=== PATIENT | male | born 1945 | race Caucasian/White ===

== ENCOUNTER → 2017-08-05 15:51 | Outpatient (CLI) | payer MEDICARE, BC, SELFPAY ==
--- NOTE | 2017-08-05 16:20 | RAD_ITS ---
STUDY: X-RAY CHEST REASON FOR EXAM: Male, 72 years old. Shortness of breath. Heart failure. TECHNIQUE: PA and lateral views of the chest. COMPARISON: June 01, 2017. FINDINGS: The lungs are hypoexpanded. There is increased markings at both lung bases. Probable bilateral pleural effusions, right greater than left. The heart remains enlarged. Stable median sternotomy. Normal mediastinum and radha. Normal visualized pulmonary arteries. There is atherosclerotic calcification of the aortic arch with tortuosity. No visualized osseous changes. Again seen is surgical clips in right axilla. There is no demonstrated abnormality of the visualized soft tissue structures of the upper abdomen. RAD/Chest PA and Lateral IMPRESSION: 1. Stable cardiomegaly. 2. Bibasilar infiltrates versus atelectasis with probable pleural effusions. Electronically Signed: Alan Corrigan DO at 16:21 EDT Tel [phone], Service support ,
[2017-08-05 18:17] LABS: Anion Gap 4 (5-15); BUN 21 mg/dL (7-18); Calcium,Total 8.7 mg/dL (8.5-10.1); Chloride 100 mmol/L (98-107); Creatinine, Serum 0.95 mg/dL (0.70-1.30); EST Glomerular Filtration Rate 82 mL/min (>60); Est Glom Filt Rate - Afr Amer 99 mL/min (>60); Glucose 119 mg/dL (74-106); Potassium 3.7 mmol/L (3.5-5.1); Sodium Level 142 mmol/L (136-145)
[2017-08-05 18:19] LABS: BNP,B-Type NATRIURETIC PEPTIDE 69.4 pg/mL (0-100)
== END ==
PROVIDERS: Family Provider Internal Medicine; PCP Internal Medicine; Visit Provider Nurse Practitioner Acute Care
DX: R06.02 Shortness of breath (principal); R06.00 Dyspnea, unspecified; I50.9 Heart failure, unspecified
CPT/HCPCS: 36415; 71046; 80048; 83880

== ENCOUNTER 2017-08-20 14:43 | Inpatient (IN) | payer MEDICARE, BC, SELFPAY ==
[2017-08-20] VITALS (16 sets, daily range): BP systolic 141–166; BP diastolic 44–73; PULSE 76–103; RESP 18–30; TEMP 36.8–36.9; O2SAT 82–98; BMI 60.8; BMI 58.7
--- NOTE | 2017-08-20 15:08 | EKG12_ITS ---
Test Reason : SOB Blood Pressure : / mmHG Vent. Rate : 093 BPM Atrial Rate : 093 BPM P-R Int : 132 ms QRS Dur : 106 ms QT Int : 402 ms P-R-T Axes : 016 009 070 degrees QTc Int : 499 ms Sinus rhythm with Premature atrial complexes Incomplete left bundle branch block Borderline ECG Confirmed by RIGOBERTO LOGAN, EMORY ([id number]), editorial manager DANIELA GUTIÉRREZ ([id number] on 08/24/2017 1:16:48 PM Referred By: GABRIELLA
--- NOTE | 2017-08-20 15:08 | RAD_ITS ---
STUDY: X-RAY CHEST REASON FOR EXAM: Male, 72 years old. Shortness of breath TECHNIQUE: A single frontal view of the chest was obtained. COMPARISON: August 05, 2017 FINDINGS: The lungs are underaerated. There are increased markings throughout both lungs, most pronounced in the bases. There is blunting of the right costophrenic angle. There is moderate enlargement of the cardiac silhouette. Sternotomy wires are present. The mediastinum and hilar regions are unremarkable. The central vessels are increased. There is atherosclerotic calcification of the thoracic aorta. There are diffuse degenerative changes of the visualized spine. There are degenerative changes in both shoulders. There are surgical clips in the right axilla. There is no demonstrated abnormality of the visualized upper abdomen. RAD/Chest 1 View (Portable) IMPRESSION: There is moderate enlargement of the cardiac silhouette with diffuse edema and a small right effusion. There is bibasilar atelectasis. Electronically Signed: Antoinette Blank MD at 16:00 EDT Tel Direct: [phone], Service support ,
--- NOTE | 2017-08-20 15:12 | ED.VISSUMM ---
- ER Visit Summary Date of Service: 08/20/17 Chief Complaint: Shortness of breath History of Present Illness: The patient is a 72 M presenting with shortness of breath since Thursday. Patient states that this has been progressively worsening at home. He has increasing leg swelling. He has dyspnea with exertion. He has mild cough. He denies chest pain. He was seen at Dr. Clay's office today and was sent to the ED for hospital admission. Physical Examination: Vitals are stable. Patient is afebrile. Alert no acute distress. HEENT exam is unremarkable. Neck is supple. Lungs are diminished bilaterally. Heart is regular rate and rhythm. Abdomen is soft nontender distended. reducible hernia Extremities symmetric edema Skin is warm and dry. No focal neurologic deficit. Remainder of exam is unremarkable. Emergency Department Course and Treatment: Patient is given albuterol aerosols. EKG is sinus rate of 93 with no acute ischemic changes. Chest x-ray shows cardiomegaly, CHF, small right pleural effusion. CBC normal except hemoglobin 9.8. Chemistry normal except CO2 37, glucose 213. Troponin is negative. BNP 181.5. Patient was given Lasix IV. He is supposed to be on Eliquis and has not taken this for the past 2 months. He was started on a heparin drip per hospitalist request. He was given Zosyn and Vanc for his bilateral lower extremity cellulitis. Discussed with the hospitalist for admission. Disposition: Admission Impression: Dyspnea, CHF, bilateral lower extremity cellulitis This note was generated with [employer] dictation software. It may contain incorrect words, spelling, and punctuation that were not noted in review of the chart prior to signing ED Disposition - Plan for ED Patient: Chief Complaint: Shortness of Breath
[2017-08-20 15:34] LABS: Absolute Lymphocyte Count 0.55 X10^3/ul (0.83-4.51); Absolute Neutrophil Count 4.6 X10^3/uL (2.0-7.7); Basophil# 0.03 X10^3/uL; Basophil% 0.5 % (0-1); Differential Indicated SCAN CRITERIA MET; Eosinophil# 0.16 X10^3/uL; Eosinophils% 2.7 % (0-5); Hematocrit 33.2 % (40-54); Hemoglobin 9.8 g/dl (13.0-16.5); Lymphocyte # 0.55 X10^3/ul (4.0); Lymphocyte % 9.2 % (19-41); Mean Corp Hgb Conc 29.5 g/gl (32-36); Mean Corpuscular Volume 91.5 fL (80-94); Mean Platelet Vol. 8.7 fl (6.2-12.0); Monocyte# 0.53 X10^3/uL; Monocyte% 8.8 % (0-10); Neutrophil # 4.64 X10^3/uL (2.7-7.7); Neutrophil % 77.5 % (47-70); POSITIVE COUNT NO; POSITIVE DIFFERENTIAL YES; POSITIVE MORPHOLOGY NO; Platelet Count 221 K/mm3 (150-450); RBC Distribution Width CV 14.1 % (11.6-14.6); RBC Distribution Width SD 45.9 fl (35.1-43.9); Red Blood Count 3.63 M/mm3 (4.6-6.2)
[2017-08-20 15:39] LABS: Anion Gap 3 (5-15); BUN 13 mg/dL (7-18); BUN/Creat Ratio 13.4 RATIO (10-20); Calcium,Total 8.6 mg/dL (8.5-10.1); Chloride 99 mmol/L (98-107); Creatinine, Serum 0.97 mg/dL (0.70-1.30); EST Glomerular Filtration Rate 80 mL/min (>60); Est Glom Filt Rate - Afr Amer 97 mL/min (>60); Estimated Creatinine Clearance 64.64 ml/min; Glucose 213 mg/dL (74-106); Potassium 4.1 mmol/L (3.5-5.1); Sodium Level 139 mmol/L (136-145)
[2017-08-20] MEDS: Albuterol 2.5 MG/3 ML VIAL.NEB. INHALATION ×3 (15:39)
--- NOTE | 2017-08-20 15:41 | CT_ITS ---
STUDY: CTA CHEST REASON FOR EXAM: Male, 72 years old. Shortness of breath RADIATION DOSAGE (If Supplied By Facility): CTDIvol = ( 45.66 ) mGy, DLP = ( 1162.53 ) mGycm TECHNIQUE: The examination was performed with the intravenous administration of 100 ml of Isovue 370 contrast material. Post-processing of the angiographic images was performed, with multiplanar reformation and 3D reconstruction. Individualized dose optimization techniques were used for this CT. COMPARISON: Chest radiograph from the same day; chest CTA dated March 30, 2017 FINDINGS: Normal enhancement of the main pulmonary artery and right and left pulmonary arteries without filling defects. There is limited enhancement of the bilateral peripheral pulmonary arteries. There are moderate vascular calcifications in the thoracic aorta. There is no demonstrated aortic dissection. There is mild enlargement of the heart. There are calcifications of the coronary arteries. There are small lymph nodes scattered in the mediastinum. The hilar regions are unremarkable. The airways are unremarkable. There is dense opacity in the posterior segment of the right lower lobe. There are minimal increased markings in the posterior segment of the left lower lobe. There is moderate fluid in the right pleural margin. There is minimal fluid in the left pleural margin. Central vessels are prominent. There is a defect in the midline epigastric region measuring 8 cm. There is herniation of bowel through the defect. There are marked degenerative changes in the visualized spine. Sternotomy wires are present. There are degenerative changes in both shoulders. There are no significant abnormalities in the visualized upper abdomen. CT/CTA Chest W/WO Contrast IMPRESSION: There is no evidence of pulmonary embolus in the main pulmonary artery or right and left pulmonary arteries. There may be minimal residual chronic clot within a few branches of the right upper lobe. The remaining peripheral branches are suboptimally evaluated due to poor contrast bolus and breathing motion artifact. There is mild enlargement of the heart with mild edema. There is a moderate right pleural effusion and a small left pleural effusion. There is dense atelectasis in the right lower lobe and minimal atelectasis in the left lower lobe. There is herniation of stomach or colon in the midline epigastric region with a defect measuring 8 cm along the anterior upper abdominal wall. Electronically Signed: Antoinette Blank MD at 17:04 EDT Tel Direct: [phone], Service support ,
[2017-08-20 15:55] LABS: BNP,B-Type NATRIURETIC PEPTIDE 181.5 pg/mL (0-100)
[2017-08-20 15:57] LABS: Differential Comment SCANNED
--- NOTE | 2017-08-20 15:59 | PCM.HP.STD ---
Problem List (1) CHF exacerbation Status: Acute Qualifiers: Heart failure type: unspecified Qualified Code(s): I50.9 - Heart failure, unspecified (2) Anemia Status: Chronic Qualifiers: Anemia type: iron deficiency (3) Arthritis Status: Chronic (4) Asthma Status: Chronic Qualifiers: Asthma severity: unspecified severity Asthma persistence: unspecified Asthma complication type: unspecified Qualified Code(s): J45.909 - Unspecified asthma, uncomplicated (5) BPH (benign prostatic hypertrophy) Status: Chronic Qualifiers: Lower urinary tract symptom presence: unspecified whether lower urinary tract symptoms present (6) Benign essential hypertension Status: Chronic (7) Benign prostatic hypertrophy without urinary obstruction Status: Chronic (8) CAD (coronary artery disease) Status: Chronic Qualifiers: Coronary Disease-Associated Artery/Lesion type: unspecified vessel or lesion type [place] vs. transplanted heart: unspecified whether [place] or transplanted heart Associated angina: angina presence unspecified Qualified Code(s): I25.10 - Atherosclerotic heart disease of [place] coronary artery without angina pectoris (9) CKD (chronic kidney disease), stage II Status: Chronic (10) COPD (chronic obstructive pulmonary disease) Status: Chronic Qualifiers: COPD type: unspecified COPD (11) Chronic respiratory failure with hypoxia Status: Chronic (12) Diabetes mellitus with neuropathy Status: Chronic Qualifiers: Diabetes mellitus type: type 2 Diabetes mellitus mcfp insulin use: with mcfp use Qualified Code(s): E11.40 - Type 2 diabetes mellitus with diabetic neuropathy, unspecified; Z79.4 - custodial (current) use of insulin (13) Dyspnea Status: Acute (14) Edema of both legs Status: Acute (15) GERD (gastroesophageal reflux disease) Status: Chronic Qualifiers: Esophagitis presence: esophagitis presence not specified Qualified Code(s): K21.9 - Gastro-esophageal reflux disease without esophagitis (16) H/O aortic valve replacement Status: Chronic (17) HTN (hypertension) Status: Chronic Qualifiers: Hypertension type: essential hypertension (18) Hypercholesteremia Status: Chronic (19) Lymphedema of leg Status: Chronic Qualifiers: Laterality: bilateral (20) Morbid obesity Status: Chronic (21) MIKO (obstructive sleep apnea) Status: Chronic (22) Peripheral neuropathy Status: Chronic (23) Pulmonary embolism on right Status: Chronic Comment: Continue oral anticoagulation with Eliquis for a minimum of 6 months. Patient was educated on the signs and symptoms of bleeding as such as hemoptysis, hematemesis, hematochezia or melena stools. Patient has been advised to watch for these symptoms contact the office if they present. Follow-up with Dr. Clay in approximately 8 weeks as previously scheduled. 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 The patient is a 72 y/o M w/ PMHx: AOCD, BPH, HTN, Diabetes mellitus type II w/ neuropathy, Tobacco use, CHF Unclear type, CKD stage II, COPD, History of AVR, History of AAA s/p repair, GERD, Morbid Obesity PVD, Hx Ileus, Hx PE on Eliquis prior who presents to the [facility] ED on 08/20/17 with history of progressively worsening dyspnea, worse with exertion, orthopnea, worsening BL LE edema with onset blistering and open serous drainage secondary to severity of edema without improvement with self imposed increased O2 level and noted concurrent O2 and BIPAP placement q HS with recent treatment per his Pulmonary Team w/ increased oral lasix without marked improvement with referral to Cardiology for CHF evaluation but given worsened status referred to the ED for evaluation per Pulmonary at his appointment on day of ED presentation. Per review with patient he noted only completion of initial Rx Eliquis and has not been on it since and also notes current BL LE wounds dressed only QOD per family with worsening wounds, drainage as edema LE worsened. Past Medical History Past Medical History (Chronic Problems): Chronic Problems (Last Reviewed 08/20/17 @ 13:52 by Elvira Schmidt) Chronic respiratory failure with hypoxia (Chronic) Wheezing (Chronic) Heart failure (Chronic) MIKO (obstructive sleep apnea) (Chronic) HTN (hypertension) (Chronic) Anemia (Chronic) BPH (benign prostatic hypertrophy) (Chronic) Tinea unguium (Chronic) Diabetes mellitus with neuropathy (Chronic) Leg swelling (Chronic) Lymphedema of leg (Chronic) Multiple excoriations (Chronic) Asthma (Chronic) COPD (chronic obstructive pulmonary disease) (Chronic) Arthritis (Chronic) Immobility (Chronic) 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 Patient was educated on the signs and symptoms of bleeding as such as hemoptysis, hematemesis, hematochezia or melena stools. Patient has been advised to watch for these symptoms contact the office if they present. Follow-up with Dr. Clay in approximately 8 weeks as previously scheduled. Adynamic ileus (Chronic) Ventral hernia (Chronic) Hypoglycemia (Chronic) Peripheral neuropathy (Chronic) Chronic anemia (Chronic) Benign essential hypertension (Chronic) Benign prostatic hypertrophy without urinary obstruction (Chronic) CKD (chronic kidney disease), stage II (Chronic) CHF (congestive heart failure) (Chronic) CAD (coronary artery disease) (Chronic) Type II diabetes mellitus (Chronic) GERD (gastroesophageal reflux disease) (Chronic) Hypercholesteremia (Chronic) Morbid obesity (Chronic) Pulmonary hypertension (Chronic) H/O aortic valve replacement (Chronic) S/P AAA repair (Chronic) Venous insufficiency (Chronic) Tinea unguium (Chronic) Morbid obesity (Chronic) Allergies naphazoline HCl [From Naphcon] Allergy (Severe, Verified 08/20/17 15:18) affected his breathing AFFECTED HIS BREATHING amlodipine besylate [From Norvasc] Allergy (Verified 08/20/17 15:18) Other dextromethorphan Allergy (Verified 08/20/17 15:18) Other levofloxacin [From Levaquin] Adverse Reaction (Mild, Verified 08/20/17 15:18) made me hyperactive made me hyperactive Home Medications: Ambulatory Orders Medication Instructions Recorded Allopurinol [Zyloprim] 300 mg PO DAILY 03/30/17 Atorvastatin Calcium [Lipitor] 40 mg PO QHS 03/30/17 Clonidine Patch [Catapres-Tts3] 1 patch TOPICAL FR 03/30/17 Clopidogrel Bisulfate [Plavix] 1 tab PO DAILY 03/30/17 Docusate Sodium [Colace] 100 mg PO DAILY 03/30/17 Ferrous Sulfate 325 mg PO DAILY 03/30/17 Finasteride [Proscar] 5 mg PO DAILY 03/30/17 Glimepiride [Amaryl] 2 tab PO BREAKFAST 03/30/17 Hydroxyzine HCl 25 mg PO TID PRN 03/30/17 Insulin Glargine [Lantus SoloStar 30 units PO BID 03/30/17 Pen] Lansoprazole 15 mg PO DAILY 03/30/17 Losartan Potassium 100 mg PO DAILY 03/30/17 Magnesium Oxide [Mag-Ox 400] 800 mg PO BID 03/30/17 Metformin HCl [Glucophage] 500 mg PO TID 03/30/17 Metoprolol Tartrate [Lopressor 50 mg PO BID 03/30/17 (beta maryam)] Multivitamins,Therapeutic 1 tab PO DAILY 03/30/17 [Multivitamin] Sertraline HCl [Zoloft] 100 mg PO DAILY 03/30/17 Spironolactone 25 mg PO BID 03/30/17 Terazosin HCl [Hytrin] 10 mg PO QHS 03/30/17 Prednisone [Deltasone] 40 mg PO DAILY 5 Days #10 tab 06/05/17 fluticasone 500 mcg-salmeterol 50 1 inh INHALATION Q12H #1 device 07/29/17 mcg/dose blistr powdr for inhalation tiotropium bromide 2.5 2 puff INHALATION Q24H #1 device 07/29/17 mcg/actuation mist for inhalation albuterol sulfate HFA 90 2 puff PO Q6H PRN PRN #18 g 08/05/17 mcg/actuation aerosol inhaler furosemide 80 mg tablet 80 mg PO BID #6 tab 08/06/17 albuterol sulfate 2.5 mg/3 mL 2.5 mg INHALATION Q4H PRN #180 vial 08/20/17 (0.083 %) solution for nebulization Surgical History: - - He has a bioprosthetic aortic valve replacement, abdominal aortic aneurysm repair '05, recent surgery to repair a large ventral hernia. Psychiatric History: Anxiety, Depression Lives: With Family Smoking Status: Former smoker Tobacco Use: Non-smoker Alcohol: None - *Family History Maternal History Items: Hypertension, - - Patient's father at the age of 94 from old age. Patient's mother at age of 87 with a history of hyperlipidemia and hypertension. Paternal History Items: Hypertension Review of Systems Constitutional: Reports: Malaise, Weakness, Fatigue. Denies: Chills, Fever, Weight Change HEENT: Denies: Head Aches, Sinus Congestion, Sinus Drainage Cardiovascular: Reports: Edema, Heaviness, Orthopnea. Denies: Chest Pain, Palpitations Respiratory: Reports: Cough, Shortness of Breath, Shortness of breath at rest, Shortness of breath upon exertion, Sputum production, Wheezing Gastrointestinal: Denies: Abdominal Pain, Nausea, Vomiting Genitourinary: Denies: Dysuria Musculoskeletal: Reports: Back Pain, Joint Pain. Denies: Joint Tenderness Skin: Reports: Skin Changes, Wounds. Denies: Rash Neurological: Denies: Numbness, Tingling, Focal weakness Psychiatric: Denies: Anxiety, Depression, Homicidal Ideations, Suicidal Ideations Hematologic/ Lymphatic: Reports: Anemia. Denies: Easy Bruising, Easy Bleeding VTE Information - Inpt Only VTE Present on Admission: No VTE Mechan Device Prophylaxis: SCD's VTE Pharm Prophylaxis ordered?: Yes Patient Problems: Active and Suspected Problems (Last Reviewed 08/20/17 @ 13:52 by Elvira Schmidt) Open wound, lower leg (Acute) Subjective: Seated upright in the ED bed, fatigued appearance. Objective: Physical Examination: General: awake, alert, oriented x 3 and cooperative, seated upright in the ED bed, NAD, fatigued appearance. Skin: normal color, turgor, no icterus, cyanosis except BL LE chronic venous stasis skin changes, BL LE lateral stasis wounds with yellow slough and discharge, mildly foul smelling, chronic BL LE lymphedema, worsened w/ edema, pitting, serous drainage, blistering diffusely BL LE additionally. HEENT: AT/NC, EOMI, PERRLA, mildly dry MM, no carotid bruits, difficult to assess JVD secondary to habitus, thickened neck. Lungs: Diffusely diminished BS, > BL bases, poor effort, no current wheezing, BL rales present, no rhonchi. Heart: Regular rate and rhythm; no gallop, rub audible, s/p AVR. Abdomen: soft, morbidly obese, ventral hernia present, NTTP, ND, normal BS, no HSM; however, habitus makes examination difficult. Extremities: no cyanosis, clubbing, see skin. Neurological: patient awake, alert, oriented x 3; cognitive function intact; pupils equally reactive to light and accomodation; cranial nerves II-XII grossly normal, moving all 4 extremities but limited secondary to chronic knee pain and acute presentation, strength severely globally decreased. Psychiatric: affect appears fatigued, flat, no acute evidence of depressive or anxiety feelings. - Physical Exam Vital Signs Temp Pulse Resp BP Pulse Ox 98.5 F 85 22 H 155/73 H 96 08/20/17 14:49 08/20/17 15:40 08/20/17 15:40 08/20/17 14:49 08/20/17 15:40 Oxygen Flow Rate (L/min) 6.5 Oxygen Delivery Method Nasal Cannula Weight: 400 lb 2.224 oz Body Mass Index (BMI) 60.8 Finger Stick Blood Glucose 116 Laboratory Tests Past 24 Hrs 08/20/17 08/20/17 08/20/17 15:05 15:05 15:05 WBC 6.0 RBC 3.63 L Hgb 9.8 L Hct 33.2 L MCV 91.5 MCH 27.0 MCHC 29.5 L RDW 14.1 RDW Differential 45.9 H Plt Count 221 MPV 8.7 Immature Gran % (Auto) 1.300 H Neut % (Auto) 77.5 H Lymph % (Auto) 9.2 L [place] % (Auto) 8.8 Eos % (Auto) 2.7 Baso % (Auto) 0.5 Absolute Neuts (auto) 4.6 Absolute Lymphs (auto) 0.55 L Total Counted Not Reportable Differential Comment SCANNED Sodium 139 Potassium 4.1 Chloride 99 Carbon Dioxide 37.0 H Anion Gap 3 L BUN 13 Creatinine 0.97 Estim Creat Clear Calc 64.64 Est GFR (MDRD) Af Amer 97 Est GFR (MDRD) Non-Af 80 BUN/Creatinine Ratio 13.4 Glucose 213 H Calcium 8.6 Troponin I < 0.02 B-Natriuretic Peptide 181.5 H Assessment/Plan Active and Suspected Problems (Last Reviewed 08/20/17 @ 13:52 by Elvira Schmidt) Open wound, lower leg (Acute) The patient is a 72 y/o M w/ PMHx: AOCD, BPH, HTN, Diabetes mellitus type II w/ neuropathy, Tobacco use, CHF Unclear type, CKD stage II, COPD, History of AVR, History of AAA s/p repair, GERD, Morbid Obesity PVD, Hx Ileus, Hx PE on Eliquis prior but stopped taking after initial Rx who presents to the [facility] ED on 08/20/17 with history of progressively worsening dyspnea, worse with exertion, orthopnea, worsening BL LE edema with onset blistering and open serous drainage secondary to severity of edema without improvement with self imposed increased O2 level and noted concurrent O2 and BIPAP placement q HS with recent treatment per his Pulmonary Team w/ increased oral lasix without marked improvement with referral to Cardiology for CHF evaluation but given worsened status referred to the ED for evaluation per Pulmonary at his appointment on day of ED presentation. (1) Dyspnea, Suspect Multifactorial secondary to Underlying Pulmonary Disease, Morbid Obesity and Suspected Acute on Chronic CHF Exacerbation, Unclear Type and Possible Acute on Chronic PE: Patient administered IV lasix in the ED, will admit to PCU, maintain on cardiac telemetry, obtain cardiac enzyme series, obtain serial EKGs, initiate and continue IV lasix diuresis, monitor I/Os, maintain on intake restriction, continue medical therapy w/ asa, statin, BB, ARB, spironolactone. Will obtain TSH and magnesium level. Most recent ECHO noted 12/22/2013 with noted EF 65%, stage I diastolic dysfunction, moderately dilated RV, bioprosthetic aortic valve. Cardiology consulted, pending. PRN morphine to decrease afterload, continue oxygen supplementation, if necessary will position w/ upright position with legs off bed to decrease preload. Also, ? possibility of failure to take his Eliquis and suspect no follow-up refill following initial regimen from initial diagonsis per review of records thus discussed with ED and will additionally obtain CTPA. Will place on heparin drip upon admission and transition to oral regimen once CM assisted w/ assuring affordable regimen to avoid barriers. (2) BL LE Venous Stasis Wounds, Infected Appearance complicated by Underlying Diabetes Mellitus type II, Morbid Obesity, Chronic BL LE Lymphedema: Will maintain on IV Vanc and Zosyn given severity of appearance and underlying co-morbidities, obtain Wound RN consultation, dry dressing changes given notable serous drainage w/ LE edema, plan repeat CBC in AM, continue affected extremity elevation above heart when seated and in bed, monitor erythema outline with VS checks. Snug EM wraps. (3) Hyperlipidemia: Continue home statin regimen. (4) Hypertension: Continue home clonidine patch, metoprolol, losartan, IV lasix as noted, PRN hydralazine. (5) Chronic COPD/Asthma w/ Chronic Hypoxic Respiratory Failure: Maintain on oxygen with wean to home oxygen supplementation as able given #1, ATC aerosols, PRN albuterol, HOB, IS. (6) History of AVR, AAA s/p repair: Continue home regimen plavix, statin, BP regimen. (7) BPH: Continue home proscar. (8) Fe Deficiency Anemia: Admission Hgb 9.8, baseline 10-11 range, continue Fe supplementation, repeat CBC in AM. (9) History of PE: Was previously on eliquis, some concern about compliance and per review of records patient with no office (Pulmonary) listing of Eliquis, last noted on discharge 03/2017, reviewed with ED physician and will additionally obtain CTPA given high risk and initiate therapy again. Will need CM consultation to assure medication barriers reviewed. (10) Diabetes mellitus type II: Hold oral home regimen, continue home insulin regimen, ADA diet, accu checks w/ ISS. (11) Tobacco Abuse: Encouraged cessation, inpatient consultation per RT, NR if desired. (12) CKD stage II: Admission BUN/Cr 13/0.97, baseline Cr 0.9-1.2, trend BMP. (13) GERD: PPI. (14) MIKO: Noted BIPAP from office,18/12 with mask and headed humidity. (15) Morbid Obesity: Weight loss and lifestyle changes encouraged, nutrition consulted. (16) DVT Prophylaxis: SNUG EM wraps, SCDs, Eliquis. (17) CODE status: Discussed CODE status at length including difference between FULL code, DNR-CCA and DNR-CC status. Following discussions about the differences in these status, requested FULL CODE status. Discussed prognosis with full intervention given co-morbidities which are marked and severe and patient notes decision to continue with FULL CODE status. Advanced Care Planning Face to Face Time: 16 minutes. Code Visit Inpatient E&M: 25645 Init Hosp L3 Procedures: 56132 Advncd Care Plan 30 Min
--- NOTE | 2017-08-20 16:08 | HP.PCM_ITS ---
Problem List (1) CHF exacerbation Status: Acute Qualifiers: Heart failure type: unspecified Qualified Code(s): I50.9 - Heart failure, unspecified (2) Anemia Status: Chronic Qualifiers: Anemia type: iron deficiency (3) Arthritis Status: Chronic (4) Asthma Status: Chronic Qualifiers: Asthma severity: unspecified severity Asthma persistence: unspecified Asthma complication type: unspecified Qualified Code(s): J45.909 - Unspecified asthma, uncomplicated (5) BPH (benign prostatic hypertrophy) Status: Chronic Qualifiers: Lower urinary tract symptom presence: unspecified whether lower urinary tract symptoms present (6) Benign essential hypertension Status: Chronic (7) Benign prostatic hypertrophy without urinary obstruction Status: Chronic (8) CAD (coronary artery disease) Status: Chronic Qualifiers: Coronary Disease-Associated Artery/Lesion type: unspecified vessel or lesion type [place] vs. transplanted heart: unspecified whether [place] or transplanted heart Associated angina: angina presence unspecified Qualified Code(s): I25.10 - Atherosclerotic heart disease of [place] coronary artery without angina pectoris (9) CKD (chronic kidney disease), stage II Status: Chronic (10) COPD (chronic obstructive pulmonary disease) Status: Chronic Qualifiers: COPD type: unspecified COPD (11) Chronic respiratory failure with hypoxia Status: Chronic (12) Diabetes mellitus with neuropathy Status: Chronic Qualifiers: Diabetes mellitus type: type 2 Diabetes mellitus prison insulin use: with prison use Qualified Code(s): E11.40 - Type 2 diabetes mellitus with diabetic neuropathy, unspecified; Z79.4 - prison (current) use of insulin (13) Dyspnea Status: Acute (14) Edema of both legs Status: Acute (15) GERD (gastroesophageal reflux disease) Status: Chronic Qualifiers: Esophagitis presence: esophagitis presence not specified Qualified Code(s) : K21.9 - Gastro-esophageal reflux disease without esophagitis (16) H/O aortic valve replacement Status: Chronic (17) HTN (hypertension) Status: Chronic Qualifiers: Hypertension type: essential hypertension (18) Hypercholesteremia Status: Chronic (19) Lymphedema of leg Status: Chronic Qualifiers: Laterality: bilateral (20) Morbid obesity Status: Chronic (21) MIKO (obstructive sleep apnea) Status: Chronic (22) Peripheral neuropathy Status: Chronic (23) Pulmonary embolism on right Status: Chronic Comment: Continue oral anticoagulation with Eliquis for a minimum of 6 months. Patient was educated on the signs and symptoms of bleeding as such as hemoptysis, hematemesis, hematochezia or melena stools. Patient has been advised to watch for these symptoms contact the office if they present. Follow-up with Dr. Clay in approximately 8 weeks as previously scheduled. (24) Pulmonary hypertension Status: Chronic (25) S/P AAA repair Status: Chronic (26) Type II diabetes mellitus Status: Chronic Qualifiers: Diabetes mellitus prison insulin use: with terminal superintendent use Diabetes mellitus complication status: with kidney complications Diabetes mellitus complication detail: with chronic kidney disease Chronic kidney disease stage : stage 2 (mild) Qualified Code(s): E11.22 - Type 2 diabetes mellitus with diabetic chronic kidney disease; N18.2 - Chronic kidney disease, stage 2 (mild) ; Z79.4 - prison (current) use of insulin (27) Tobacco abuse Status: Resolved (28) Open wound, lower leg Status: Acute Qualifiers: Encounter type: initial encounter Laterality: unspecified laterality Qualified Code(s): S81.809A - Unspecified open wound, unspecified lower leg, initial encounter History of Present Illness Date of Admission: 08/20/17 Chief Complaint: Dyspnea, Increasing LE Edema, Orthopnea. The patient is a 72 y/o M w/ PMHx: AOCD, BPH, HTN, Diabetes mellitus type II w/ neuropathy, Tobacco use, CHF Unclear type, CKD stage II, COPD, History of AVR, History of AAA s/p repair, GERD, Morbid Obesity PVD, Hx Ileus, Hx PE on Eliquis prior who presents to the [facility] ED on 08/20/17 with history of progressively worsening dyspnea, worse with exertion, orthopnea, worsening BL LE edema with onset blistering and open serous drainage secondary to severity of edema without improvement with self imposed increased O2 level and noted concurrent O2 and BIPAP placement q HS with recent treatment per his Pulmonary Team w/ increased oral lasix without marked improvement with referral to Cardiology for CHF evaluation but given worsened status referred to the ED for evaluation per Pulmonary at his appointment on day of ED presentation. Per review with patient he noted only completion of initial Rx Eliquis and has not been on it since and also notes current BL LE wounds dressed only QOD per family with worsening wounds, drainage as edema LE worsened. Past Medical History Past Medical History (Chronic Problems): Chronic Problems (Last Reviewed 08/20/17 @ 13:52 by Elvira Schmidt) Chronic respiratory failure with hypoxia (Chronic) Wheezing (Chronic) Heart failure (Chronic) MIKO (obstructive sleep apnea) (Chronic) HTN (hypertension) (Chronic) Anemia (Chronic) BPH (benign prostatic hypertrophy) (Chronic) Tinea unguium (Chronic) Diabetes mellitus with neuropathy (Chronic) Leg swelling (Chronic) Lymphedema of leg (Chronic) Multiple excoriations (Chronic) Asthma (Chronic) COPD (chronic obstructive pulmonary disease) (Chronic) Arthritis (Chronic) Immobility (Chronic) 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 Patient was educated on the signs and symptoms of bleeding as such as hemoptysis, hematemesis, hematochezia or melena stools. Patient has been advised to watch for these symptoms contact the office if they present. Follow-up with Dr. Clay in approximately 8 weeks as previously scheduled. Adynamic ileus (Chronic) Ventral hernia (Chronic) Hypoglycemia (Chronic) Peripheral neuropathy (Chronic) Chronic anemia (Chronic) Benign essential hypertension (Chronic) Benign prostatic hypertrophy without urinary obstruction (Chronic) CKD (chronic kidney disease), stage II (Chronic) CHF (congestive heart failure) (Chronic) CAD (coronary artery disease) (Chronic) Type II diabetes mellitus (Chronic) GERD (gastroesophageal reflux disease) (Chronic) Hypercholesteremia (Chronic) Morbid obesity (Chronic) Pulmonary hypertension (Chronic) H/O aortic valve replacement (Chronic) S/P AAA repair (Chronic) Venous insufficiency (Chronic) Tinea unguium (Chronic) Morbid obesity (Chronic) Allergies naphazoline HCl [From Naphcon] Allergy (Severe, Verified 08/20/17 15:18) affected his breathing AFFECTED HIS BREATHING amlodipine besylate [From Norvasc] Allergy (Verified 08/20/17 15:18) Other dextromethorphan Allergy (Verified 08/20/17 15:18) Other levofloxacin [From Levaquin] Adverse Reaction (Mild, Verified 08/20/17 15:18) made me hyperactive made me hyperactive Home Medications: Ambulatory Orders Medication Instructions Recorded Allopurinol [Zyloprim] 300 mg PO DAILY 03/30/17 Atorvastatin Calcium [Lipitor] 40 mg PO QHS 03/30/17 Clonidine Patch [Catapres-Tts3] 1 patch TOPICAL FR 03/30/17 Clopidogrel Bisulfate [Plavix] 1 tab PO DAILY 03/30/17 Docusate Sodium [Colace] 100 mg PO DAILY 03/30/17 Ferrous Sulfate 325 mg PO DAILY 03/30/17 Finasteride [Proscar] 5 mg PO DAILY 03/30/17 Glimepiride [Amaryl] 2 tab PO BREAKFAST 03/30/17 Hydroxyzine HCl 25 mg PO TID PRN 03/30/17 Insulin Glargine [Lantus SoloStar 30 units PO BID 03/30/17 Pen] Lansoprazole 15 mg PO DAILY 03/30/17 Losartan Potassium 100 mg PO DAILY 03/30/17 Magnesium Oxide [Mag-Ox 400] 800 mg PO BID 03/30/17 Metformin HCl [Glucophage] 500 mg PO TID 03/30/17 Metoprolol Tartrate [Lopressor 50 mg PO BID 03/30/17 (beta maryam)] Multivitamins,Therapeutic 1 tab PO DAILY 03/30/17 [Multivitamin] Sertraline HCl [Zoloft] 100 mg PO DAILY 03/30/17 Spironolactone 25 mg PO BID 03/30/17 Terazosin HCl [Hytrin] 10 mg PO QHS 03/30/17 Prednisone [Deltasone] 40 mg PO DAILY 5 Days #10 tab 06/05/17 fluticasone 500 mcg-salmeterol 50 1 inh INHALATION Q12H #1 device 07/29/17 mcg/dose blistr powdr for inhalation tiotropium bromide 2.5 2 puff INHALATION Q24H #1 device 07/29/17 mcg/actuation mist for inhalation albuterol sulfate HFA 90 2 puff PO Q6H PRN PRN #18 g 08/05/17 mcg/actuation aerosol inhaler furosemide 80 mg tablet 80 mg PO BID #6 tab 08/06/17 albuterol sulfate 2.5 mg/3 mL 2.5 mg INHALATION Q4H PRN #180 vial 08/20/17 (0.083 %) solution for nebulization Surgical History: - - He has a bioprosthetic aortic valve replacement, abdominal aortic aneurysm repair '05, recent surgery to repair a large ventral hernia. Psychiatric History: Anxiety, Depression Lives: With Family Smoking Status: Former smoker Tobacco Use: Non-smoker Alcohol: None - *Family History Maternal History Items: Hypertension, - - Patient's father at the age of 94 from old age. Patient's mother at age of 87 with a history of hyperlipidemia and hypertension. Paternal History Items: Hypertension Review of Systems Constitutional: Reports: Malaise, Weakness, Fatigue. Denies: Chills, Fever, Weight Change HEENT: Denies: Head Aches, Sinus Congestion, Sinus Drainage Cardiovascular: Reports: Edema, Heaviness, Orthopnea. Denies: Chest Pain, Palpitations Respiratory: Reports: Cough, Shortness of Breath, Shortness of breath at rest, Shortness of breath upon exertion, Sputum production, Wheezing Gastrointestinal: Denies: Abdominal Pain, Nausea, Vomiting Genitourinary: Denies: Dysuria Musculoskeletal: Reports: Back Pain, Joint Pain. Denies: Joint Tenderness Skin: Reports: Skin Changes, Wounds. Denies: Rash Neurological: Denies: Numbness, Tingling, Focal weakness Psychiatric: Denies: Anxiety, Depression, Homicidal Ideations, Suicidal Ideations Hematologic/ Lymphatic: Reports: Anemia. Denies: Easy Bruising, Easy Bleeding VTE Information - Inpt Only VTE Present on Admission: No VTE Mechan Device Prophylaxis: SCD's VTE Pharm Prophylaxis ordered?: Yes Patient Problems: Active and Suspected Problems (Last Reviewed 08/20/17 @ 13:52 by Elvira Schmidt) Open wound, lower leg (Acute) Subjective: Seated upright in the ED bed, fatigued appearance. Objective: Physical Examination: General: awake, alert, oriented x 3 and cooperative, seated upright in the ED bed, NAD, fatigued appearance. Skin: normal color, turgor, no icterus, cyanosis except BL LE chronic venous stasis skin changes, BL LE lateral stasis wounds with yellow slough and discharge, mildly foul smelling, chronic BL LE lymphedema, worsened w/ edema, pitting, serous drainage, blistering diffusely BL LE additionally. HEENT: AT/NC, EOMI, PERRLA, mildly dry MM, no carotid bruits, difficult to assess JVD secondary to habitus, thickened neck. Lungs: Diffusely diminished BS, > BL bases, poor effort, no current wheezing, BL rales present, no rhonchi. Heart: Regular rate and rhythm; no gallop, rub audible, s/p AVR. Abdomen: soft, morbidly obese, ventral hernia present, NTTP, ND, normal BS, no HSM; however, habitus makes examination difficult. Extremities: no cyanosis, clubbing, see skin. Neurological: patient awake, alert, oriented x 3; cognitive function intact; pupils equally reactive to light and accomodation; cranial nerves II-XII grossly normal, moving all 4 extremities but limited secondary to chronic knee pain and acute presentation, strength severely globally decreased. Psychiatric: affect appears fatigued, flat, no acute evidence of depressive or anxiety feelings. - Physical Exam Vital Signs Temp Pulse Resp BP Pulse Ox 98.5 F 85 22 H 155/73 H 96 08/20/17 14:49 08/20/17 15:40 08/20/17 15:40 08/20/17 14:49 08/20/17 15:40 Oxygen Flow Rate (L/min) 6.5 Oxygen Delivery Method Nasal Cannula Weight: 400 lb 2.224 oz Body Mass Index (BMI) 60.8 Finger Stick Blood Glucose 116 Laboratory Tests Past 24 Hrs 08/20/17 08/20/17 08/20/17 15:05 15:05 15:05 WBC 6.0 RBC 3.63 L Hgb 9.8 L Hct 33.2 L MCV 91.5 MCH 27.0 MCHC 29.5 L RDW 14.1 RDW Differential 45.9 H Plt Count 221 MPV 8.7 Immature Gran % (Auto) 1.300 H Neut % (Auto) 77.5 H Lymph % (Auto) 9.2 L [place] % (Auto) 8.8 Eos % (Auto) 2.7 Baso % (Auto) 0.5 Absolute Neuts (auto) 4.6 Absolute Lymphs (auto) 0.55 L Total Counted Not Reportable Differential Comment SCANNED Sodium 139 Potassium 4.1 Chloride 99 Carbon Dioxide 37.0 H Anion Gap 3 L BUN 13 Creatinine 0.97 Estim Creat Clear Calc 64.64 Est GFR (MDRD) Af Amer 97 Est GFR (MDRD) Non-Af 80 BUN/Creatinine Ratio 13.4 Glucose 213 H Calcium 8.6 Troponin I < 0.02 B-Natriuretic Peptide 181.5 H Assessment/Plan Active and Suspected Problems (Last Reviewed 08/20/17 @ 13:52 by Elvira Schmidt) Open wound, lower leg (Acute) The patient is a 72 y/o M w/ PMHx: AOCD, BPH, HTN, Diabetes mellitus type II w/ neuropathy, Tobacco use, CHF Unclear type, CKD stage II, COPD, History of AVR, History of AAA s/p repair, GERD, Morbid Obesity PVD, Hx Ileus, Hx PE on Eliquis prior but stopped taking after initial Rx who presents to the [facility] ED on 08/20/17 with history of progressively worsening dyspnea, worse with exertion, orthopnea , worsening BL LE edema with onset blistering and open serous drainage secondary to severity of edema without improvement with self imposed increased O2 level and noted concurrent O2 and BIPAP placement q HS with recent treatment per his Pulmonary Team w/ increased oral lasix without marked improvement with referral to Cardiology for CHF evaluation but given worsened status referred to the ED for evaluation per Pulmonary at his appointment on day of ED presentation. (1) Dyspnea, Suspect Multifactorial secondary to Underlying Pulmonary Disease, Morbid Obesity and Suspected Acute on Chronic CHF Exacerbation, Unclear Type and Possible Acute on Chronic PE: Patient administered IV lasix in the ED, will admit to PCU, maintain on cardiac telemetry, obtain cardiac enzyme series, obtain serial EKGs, initiate and continue IV lasix diuresis, monitor I/Os, maintain on intake restriction, continue medical therapy w/ asa, statin, BB, ARB , spironolactone. Will obtain TSH and magnesium level. Most recent ECHO noted with noted EF 65%, stage I diastolic dysfunction, moderately dilated RV , bioprosthetic aortic valve. Cardiology consulted, pending. PRN morphine to decrease afterload, continue oxygen supplementation, if necessary will position w/ upright position with legs off bed to decrease preload. Also, ? possibility of failure to take his Eliquis and suspect no follow-up refill following initial regimen from initial diagonsis per review of records thus discussed with ED and will additionally obtain CTPA. Will place on heparin drip upon admission and transition to oral regimen once CM assisted w/ assuring affordable regimen to avoid barriers. (2) BL LE Venous Stasis Wounds, Infected Appearance complicated by Underlying Diabetes Mellitus type II, Morbid Obesity, Chronic BL LE Lymphedema: Will maintain on IV Vanc and Zosyn given severity of appearance and underlying co- morbidities, obtain Wound RN consultation, dry dressing changes given notable serous drainage w/ LE edema, plan repeat CBC in AM, continue affected extremity elevation above heart when seated and in bed, monitor erythema outline with VS checks. Snug EM wraps. (3) Hyperlipidemia: Continue home statin regimen. (4) Hypertension: Continue home clonidine patch, metoprolol, losartan, IV lasix as noted, PRN hydralazine. (5) Chronic COPD/Asthma w/ Chronic Hypoxic Respiratory Failure: Maintain on oxygen with wean to home oxygen supplementation as able given #1, ATC aerosols, PRN albuterol, HOB, IS. (6) History of AVR, AAA s/p repair: Continue home regimen plavix, statin, BP regimen. (7) BPH: Continue home proscar. (8) Fe Deficiency Anemia: Admission Hgb 9.8, baseline 10-11 range, continue Fe supplementation, repeat CBC in AM. (9) History of PE: Was previously on eliquis, some concern about compliance and per review of records patient with no office (Pulmonary) listing of Eliquis, last noted on discharge 03/2017, reviewed with ED physician and will additionally obtain CTPA given high risk and initiate therapy again. Will need CM consultation to assure medication barriers reviewed. (10) Diabetes mellitus type II: Hold oral home regimen, continue home insulin regimen, ADA diet, accu checks w/ ISS. (11) Tobacco Abuse: Encouraged cessation, inpatient consultation per RT, NR if desired. (12) CKD stage II: Admission BUN/Cr 13/0.97, baseline Cr 0.9-1.2, trend BMP. (13) GERD: PPI. (14) MIKO: Noted BIPAP from office,18/12 with mask and headed humidity. (15) Morbid Obesity: Weight loss and lifestyle changes encouraged, nutrition consulted. (16) DVT Prophylaxis: SNUG EM wraps, SCDs, Eliquis. (17) CODE status: Discussed CODE status at length including difference between FULL code, DNR-CCA and DNR-CC status. Following discussions about the differences in these status, requested FULL CODE status. Discussed prognosis with full intervention given co-morbidities which are marked and severe and patient notes decision to continue with FULL CODE status. Advanced Care Planning Face to Face Time: 16 minutes. Code Visit Inpatient E&M: 08353 Init Hosp L3 Procedures: 02413 Advncd Care Plan 30 Min
[2017-08-20] MEDS: Furosemide 40 MG/4 ML Vial IV (16:42)
--- NOTE | 2017-08-20 17:08 | ECHOD_ITS ---
Version 2 Reason For Study: CHF Procedure This was a 2D Doppler, Color Flow transthoracic echocardiogram. The study was technically difficult. The study was technically limited. Due to body habitus. Contrast injection was performed. Exam performed portable in patient room. Left Ventricle Normal LV size. Moderate concentric left ventricular hypertrophy. Left ventricular systolic function is normal. The estimated ejection fraction is 60 %. No regional wall motion abnormalities noted. Right Ventricle Normal RV size. Normal systolic function. Pericardium/Pleural No pericardial effusion. Medication Diluted definity 5.0ml given slow IV push to enhance endocardial definition. MMode/2D Measurements & Calculations LVIDd: 4.7 cm IVSd: 1.6 cm Ao root diam: 3.8 cm LVIDs: 3.2 cm LVPWd: 1.2 cm LA dimension: 5.2 cm FS: 31.6 % LAV(MOD-bp): 225.1 ml LAV(MOD-bp) Indexed: 82.0 ml/m2 LA A4 area: 47.3 cm2 LAV(MOD-sp2): 192.9 ml LAV(MOD-sp4): 237.3 ml Time Measurements MV dec time: 0.22 sec Doppler Measurements & Calculations MV E max brandon: 103.7 cm/sec Lat Peak E' Brandon: 8.2 cm/sec Med Peak E' [place]: 7.9 cm/sec MV A max brandon: 92.3 cm/sec E/E' lat: 12.7 E/E' med: 13.2 MV E/A: 1.1 MV V2 max: 119.3 cm/sec Ao V2 max: 165.1 cm/sec LV V1 max: 106.1 cm/sec MV max P.7 mmHg Ao max P.9 mmHg LV V1 max P.5 mmHg MV V2 mean: 83.9 cm/sec MV mean P.1 mmHg MV V2 VTI: 28.4 cm TR max brandon: 217.0 cm/sec TR max P.0 mmHg Interpretation Summary Normal LV size. Moderate concentric left ventricular hypertrophy. Left ventricular systolic function is normal. The estimated ejection fraction is 60 %. The study was technically difficult. The study was technically limited. Contrast injection was performed. Ordering Physician: Mica Jones Referring Physician: Mackenzie Wallace Performed By: Gloria Minor, JADIEL, RVT
[2017-08-20 17:45] LABS: Magnesium 1.8 mg/dL (1.6-2.6); Thyroid Stim Hormone (TSH) 2.11 uIU/mL (0.358-3.74)
[2017-08-20] MEDS: Heparin Injection 5,000 UNITS/ML Syringe 14000 UNITS IV (18:07)
[2017-08-20] MEDS: Piperacil/Tazobactam 3.375 GM/50 ML ML IV ×2 (18:10→21:37)
[2017-08-20] MEDS: HEPARIN/D5w 25,000 UNITS 25,000 UNITS/250 ML IV.SOLN. 21 UNITS IV (18:10)
[2017-08-20 18:28] LABS: International Normalized Ratio 1.1; Prothrombin Time (Protime)PT. 13.7 SECONDS (11.7-14.9)
[2017-08-20 18:29] LABS: Partial Thromboplast Time 34.9 Seconds (24.1-36.2)
[2017-08-20 18:45] LABS: Bedside Glucose 199 mg/dL (70-110)
[2017-08-20] MEDS: Ipratropium/Albuterol Sulfate 3 ML AMPUL.NEB INHALATION (19:34)
--- NOTE | 2017-08-20 19:37 | ED.RN ---
pcu called looking for medication at this time. advised admission nurse took patient to the floor and to please check room for medication
--- NOTE | 2017-08-20 19:42 | CON.PCM_ITS ---
Reason for Consult Date of Consultation: 08/20/17 Reason for Consultation: Shortness of breath. History of Present Illness: The patient is a 72 y/o M w/ PMHx: , BPH, HTN, Diabetes mellitus type II w/ neuropathy, Tobacco use, CHF Unclear type, CKD stage II, COPD, History of AVR, History of AAA s/p repair, GERD, Morbid Obesity PVD, Hx Ileus, Hx PE on Eliquis prior who presents to the [facility] ED on 08/20/17 with history of progressively worsening dyspnea, worse with exertion, orthopnea, worsening BL LE edema with onset blistering and open serous drainage secondary to severity of edema without improvement with self imposed increased O2 level and noted concurrent O2 and BIPAP placement q HS with recent treatment per his Pulmonary Team . He says that his shortness of breath was not getting better and he had been referred to cardiology to see Dr. Zhong on September 01. However due to the above symptoms he presented to the emergency room where he was thought to be in congestive heart failure and had anasarca and was admitted to the telemetry unit. Cardiology was called for further evaluation and management. He denies any chest pain or palpitations he has had pedal edema and shortness of breath as described above. He does have paroxysmal nocturnal dyspnea and orthopnea and sleeps in a recliner. Past Medical History Allergies/Adverse Reactions: Allergies naphazoline HCl [From Naphcon] Allergy (Severe, Verified 08/20/17 15:18) affected his breathing AFFECTED HIS BREATHING amlodipine besylate [From Norvasc] Allergy (Verified 08/20/17 15:18) Other dextromethorphan Allergy (Verified 08/20/17 15:18) Other levofloxacin [From Levaquin] Adverse Reaction (Mild, Verified 08/20/17 15:18) made me hyperactive made me hyperactive Home Medications: Ambulatory Orders Medication Instructions Recorded Allopurinol [Zyloprim] 300 mg PO DAILY 03/30/17 Atorvastatin Calcium [Lipitor] 40 mg PO QHS 03/30/17 Clonidine Patch [Catapres-Tts3] 0.3 mg TOPICAL FR 03/30/17 Clopidogrel Bisulfate [Plavix] 75 mg PO DAILY 03/30/17 Ferrous Sulfate 325 mg PO DAILY 03/30/17 Finasteride [Proscar] 5 mg PO DAILY 03/30/17 Glimepiride [Amaryl] 8 mg PO BREAKFAST 03/30/17 Hydroxyzine HCl 25 mg PO TID PRN 03/30/17 Insulin Glargine [Lantus SoloStar 30 units PO BID 03/30/17 Pen] Lansoprazole 15 mg PO DAILY 03/30/17 Losartan Potassium 100 mg PO DAILY 03/30/17 Magnesium Oxide [Mag-Ox 400] 800 mg PO BID 03/30/17 Metformin HCl [Glucophage] 500 mg PO TID 03/30/17 Metoprolol Tartrate [Lopressor 50 mg PO BID 03/30/17 (beta maryam)] Multivitamins,Therapeutic 1 tab PO DAILY 03/30/17 [Multivitamin] Sertraline HCl [Zoloft] 50 mg PO QHS 03/30/17 Spironolactone 25 mg PO BID 03/30/17 Terazosin HCl [Hytrin] 10 mg PO QHS 03/30/17 albuterol sulfate HFA 90 2 puff PO Q6H PRN PRN #18 g 08/05/17 mcg/actuation aerosol inhaler Albuterol Aerosols [Ventolin 2.5 mg INHALATION Q4H PRN 08/20/17 Aerosols] Fluticasone/Salmeterol [Advair 2 puff INHALATION Q12H 08/20/17 500-50 Diskus] Furosemide [Lasix] 80 mg PO BID 08/20/17 Sertraline HCl [Zoloft] 100 mg PO DAILY 08/20/17 Past Medical History (Chronic Problems): Chronic Problems (Last Reviewed 08/20/17 @ 18:24 by Mackenzie Wallace NP-C) CKD (chronic kidney disease), stage II (Chronic) Chronic respiratory failure with hypoxia (Chronic) Wheezing (Chronic) Heart failure (Chronic) MIKO (obstructive sleep apnea) (Chronic) HTN (hypertension) (Chronic) Anemia (Chronic) BPH (benign prostatic hypertrophy) (Chronic) Tinea unguium (Chronic) Diabetes mellitus with neuropathy (Chronic) Leg swelling (Chronic) Lymphedema of leg (Chronic) Multiple excoriations (Chronic) Asthma (Chronic) COPD (chronic obstructive pulmonary disease) (Chronic) Arthritis (Chronic) Immobility (Chronic) 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 Patient was educated on the signs and symptoms of bleeding as such as hemoptysis, hematemesis, hematochezia or melena stools. Patient has been advised to watch for these symptoms contact the office if they present. Follow-up with Dr. Clay in approximately 8 weeks as previously scheduled. Adynamic ileus (Chronic) Ventral hernia (Chronic) Hypoglycemia (Chronic) Peripheral neuropathy (Chronic) Chronic anemia (Chronic) Benign essential hypertension (Chronic) Benign prostatic hypertrophy without urinary obstruction (Chronic) CKD (chronic kidney disease), stage II (Chronic) CHF (congestive heart failure) (Chronic) CAD (coronary artery disease) (Chronic) Type II diabetes mellitus (Chronic) GERD (gastroesophageal reflux disease) (Chronic) Hypercholesteremia (Chronic) Morbid obesity (Chronic) Pulmonary hypertension (Chronic) H/O aortic valve replacement (Chronic) S/P AAA repair (Chronic) Venous insufficiency (Chronic) Tinea unguium (Chronic) Morbid obesity (Chronic) Surgical History: - - He has a bioprosthetic aortic valve replacement, abdominal aortic aneurysm repair '05, recent surgery to repair a large ventral hernia. Psychiatric History: Anxiety, Depression - *Family History Maternal Family History: Family History (Last Reviewed 08/20/17 @ 18:24 by YVETTE Pimentel) Brother TBI (traumatic brain injury) Sister Ulcerative colitis History Items: Hypertension, - - Patient's father at the age of 94 from old age. Patient's mother at age of 87 with a history of hyperlipidemia and hypertension. Paternal Family History: Family History (Last Reviewed 08/20/17 @ 18:24 by YVETTE Pimentel) Brother TBI (traumatic brain injury) Sister Ulcerative colitis History Items: Hypertension Lives: With Family Smoking Status: Former smoker Tobacco Use: Non-smoker Alcohol: None Review of Systems - Review of Systems General: Denies: Fever, Night Sweats, Fatigue Cardiovascular: Reports: Shortness of Breath, Shortness of Breath at Rest, Shortness of Breath with Exertion, Orthopnea, PND, Peripheral Edema. Denies: Chest Discomfort, Palpitations, Lightheadedness, Dizziness, Near Syncope, Syncope Respiratory: Denies: Cough, Sputum Production, Hemoptysis Gastrointestinal: Denies: Hematemesis, Hematochezia, Melena Genitourinary: Denies: Dysuria, Hematuria Skin: Denies: Rash Subjectve: Morbidly obese gentleman in no apparent distress. Objective: Vital Signs Temp Pulse Resp BP Pulse Ox 98.5 F 90 27 H 143/64 H 93 08/20/17 14:49 08/20/17 18:01 08/20/17 16:46 08/20/17 16:46 08/20/17 16:46 Oxygen Flow Rate (L/min) 7 Oxygen Delivery Method Nasal Cannula Weight: 386 lb 3.998 oz Body Mass Index (BMI) 58.7 General: Awake, Obese HEENT: PERRL, EOMI, Sclera Non Icteric Neck: Supple, Good ROM, No Lymph Node Enlargement Lungs: Diminished Boyd Bases Cardiovascular: Regular Rhythm, Normal S1, Normal S2, No Rubs, No Gallops, Hardy Prosthetic S1 Vascular: No Carotid Bruits, Normal Femoral Pulses, Normal Radial Pulses, Normal Dorsalis Pedal Pulse, Normal Posterior Tibial Pulses Abdomen: Bowel Sounds Present, Soft, Non Tender, No HSM, No Organomegaly Extremities: No Cyanosis, No Clubbing, Bilateral Edema +3 Neurological: No Focal Motor or Sensory Deficit Rhythm: EKG: Normal sinus rhythm with a rate of 93 bpm and incomplete right bundle branch block Assessment/Plan 1. Congestive heart failure-chronic diastolic He appears to have congestive heart failure which appears to be chronic and diastolic. I recommend that we obtain an echocardiogram to reassess his left ventricular function. The plan will be to continue him on an EM inhibitor and diuretics as well as control his blood pressure and see how he does. I do not think that this is secondary to a valve dysfunction. But the echocardiogram would help elucidate that. 2. 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 We would obtain an echocardiogram to assess the above more clearly. 3. Hypertension His blood pressure appears to be under fair control. I recommend continuing the losartan as well as the beta-maryam. He is on clonidine. We may be a chance to make some changes to the above depending on how he responds to this. 4. Abdominal aortic aneurysm-is post repair He is status post repair of the abdominal aortic aneurysm. At this time I do not have any indication to think that there is any problem with the above. However control of his blood pressure is paramount. 5. Obesity Patient is significantly obese and he has been counseled about maintaining a more appropriate weight. 6. History of pulmonary embolism. He is at high risk for recurrent pulmonary embolism and I would recommend that we start him back on his Eliquis 5 mg twice a day. Intravenous heparin may pose a risk and may mask any retroperitoneal bleed. Thank you for allowing me to participate in the care of your patient. Please don't hesitate to call if any issues arise
[2017-08-20] MEDS: Magnesium Oxide 400 MG Tablet 800 MG PO (21:34)
[2017-08-20] MEDS: Spironolactone 25 MG Tablet PO (21:34)
[2017-08-20] MEDS: Furosemide 100 MG/10 ML Vial 60 MG IV (21:35)
[2017-08-20] MEDS: Doxazosin 4 MG Tablet 8 MG PO (21:36)
[2017-08-20] MEDS: Senna/Docusate Sodium 1 Tablet 2 TABLET PO (21:36)
[2017-08-20] MEDS: Famotidine 20 MG Tablet PO (21:37)
[2017-08-20] MEDS: Atorvastatin Calcium 40 MG Tablet PO (21:37)
[2017-08-20] MEDS: Metoprolol Tartrate 50 MG Tablet PO (21:39)
[2017-08-20] MEDS: APIXABAN 5 MG TABLET PO (21:59)
[2017-08-21] VITALS (17 sets, daily range): BP systolic 137–177; BP diastolic 55–76; PULSE 67–87; RESP 16–20; TEMP 36.8–37.2; O2SAT 96–99
[2017-08-21 00:50] LABS: Bedside Glucose 239 mg/dL (70-110)
[2017-08-21 03:36] LABS: Bedside Glucose 181 mg/dL (70-110)
[2017-08-21] MEDS: Piperacil/Tazobactam 3.375 GM/50 ML ML IV ×2 (05:09→14:36)
[2017-08-21] MEDS: Furosemide 100 MG/10 ML Vial 60 MG IV ×3 (05:10→21:49)
--- NOTE | 2017-08-21 05:55 | EKG12_ITS ---
Test Reason : MORNING EKG Blood Pressure : / mmHG Vent. Rate : 069 BPM Atrial Rate : 069 BPM P-R Int : 144 ms QRS Dur : 102 ms QT Int : 458 ms P-R-T Axes : -05 -09 -06 degrees QTc Int : 490 ms Sinus rhythm with Premature atrial complexes Nonspecific ST abnormality Abnormal ECG When compared with ECG of 20-AUG-2017 14:58, MANUAL COMPARISON REQUIRED, DATA IS UNCONFIRMED Confirmed by RIGOBERTO LOGAN, EMORY ([id number]), newspaper editor managing DANIELA GUTIÉRREZ ([id number]) on 08/24/2017 1:55:19 PM Referred By: ALFIE Confirmed By:EMORY FRANKLIN MD
[2017-08-21 06:34] LABS: Hematocrit 28.9 % (40-54); Hemoglobin 8.7 g/dl (13.0-16.5); Mean Corp Hgb Conc 30.1 g/gl (32-36); Mean Corpuscular Hgb 27.3 pg (27.0-32.0); Mean Corpuscular Volume 90.6 fL (80-94); Mean Platelet Vol. 8.8 fl (6.2-12.0); Platelet Count 210 K/mm3 (150-450); RBC Distribution Width CV 14.2 % (11.6-14.6); RBC Distribution Width SD 45.5 fl (35.1-43.9); Red Blood Count 3.19 M/mm3 (4.6-6.2); White Blood Count 5.6 K/mm3 (4.4-11.0)
[2017-08-21 06:35] LABS: Scan Indicated on CBC? Y/N NO
[2017-08-21 06:50] LABS: Anion Gap 5 (5-15); BUN 12 mg/dL (7-18); BUN/Creat Ratio 11.4 RATIO (10-20); Calcium,Total 8.2 mg/dL (8.5-10.1); Chloride 97 mmol/L (98-107); Cholesterol 127 mg/dL (200); Creatinine, Serum 1.05 mg/dL (0.70-1.30); EST Glomerular Filtration Rate 73 mL/min (>60); Est Glom Filt Rate - Afr Amer 89 mL/min (>60); Estimated Creatinine Clearance 59.71 ml/min; Glucose 172 mg/dL (74-106); High Density Lipoprotein 25 mg/dL; Potassium 3.4 mmol/L (3.5-5.1); Sodium Level 139 mmol/L (136-145); Triglycerides 332 mg/dL; Very Low Density Lipoprotein 66 mg/dL (5-40)
[2017-08-21 06:56] LABS: Bedside Glucose 181 mg/dL (70-110)
--- NOTE | 2017-08-21 07:28 | PCM.CONS.GEN ---
Reason for Consult Date of Consultation: 08/21/17 Reason for Consultation: CHF exacerbation History of Present Illness: The patient is a 72-year-old male, with a history as outlined below, who presented to the emergency department with worsening shortness of breath and hypoxemia after failed outpatient treatment for presumptive decompensated heart failure. I initially saw the patient when he was admitted to the hospital on February 2016 with acute hypoxic respiratory insufficiency due to underlying RV systolic dysfunction and pulmonary hypertension. The patient has known moderately severe obstructive lung disease with significant response to aerosolized bronchodilators and evidence of air trapping and reduction in diffusing capacity, based off of PFTs completed in April 2016. The patient also has known severe obstructive sleep apnea, which was diagnosed in December 2015. His last surface echocardiogram from November 2015 showed evidence of a moderately dilated RV with RV systolic dysfunction and a right ventricular systolic pressure which was estimated to be 47 mmHg. The patient has an approximate [id number] smoking history, having quit in 1966. Patient eventually underwent a titration study which was recommended that he be placed on BiPAP therapy with a pressure setting of 18/12 cm of water. I last saw the patient at the beginning of July. At that time it was noted to the patient had failed to obtain repeat pulmonary function testing. He was also noted at that time to be noncompliant with the use of his home BiPAP and was using his maintenance inhalers and appropriately. He had been utilizing both Advair and Symbicort, along with Spiriva on an as-needed basis. The patient has poor overall insight into his disease. Despite the patient's BiPAP compliance report indicating that he had only utilized his machine 6 out of the last 30 days, he remained insistent that he was compliant with its use. Since my office visit, the patient has been seen by our nurse practitioner on 2 separate occasions, August 05 and . He was noted to have increasing fluid retention and worsening hypoxia. Attempts to augment his Lasix regimen was attempted. However, due to the patient's continued clinical deterioration, he was referred to the emergency department for hospital admission. On presentation to the emergency department, the patient was noted to be hypoxic on 7 L of supplemental flow rate at 82%. He was hypertensive with a blood pressure 155/73 and tachypneic. Laboratory evaluation revealed no evidence of a leukocytosis. Coagulation profile is within normal limits. Chemistry profile revealed a chronically elevated serum bicarbonate to 37. Troponin was negative. BNP was mildly elevated to 181. CTA chest was obtained which showed the possibility of residual clot within the right upper lobe. However, the remaining peripheral branches were suboptimally visualized due to poor contrast bolus. There was evidence of cardiomegaly and a mild degree of edema. Past Medical History Past Medical History (Chronic Problems): Chronic Problems (Last Reviewed 08/20/17 @ 18:24 by Mackenzie Wallace, ERIC-C) CKD (chronic kidney disease), stage II (Chronic) Chronic respiratory failure with hypoxia (Chronic) Wheezing (Chronic) Heart failure (Chronic) MIKO (obstructive sleep apnea) (Chronic) HTN (hypertension) (Chronic) Anemia (Chronic) BPH (benign prostatic hypertrophy) (Chronic) Tinea unguium (Chronic) Diabetes mellitus with neuropathy (Chronic) Leg swelling (Chronic) Lymphedema of leg (Chronic) Multiple excoriations (Chronic) Asthma (Chronic) COPD (chronic obstructive pulmonary disease) (Chronic) Arthritis (Chronic) Immobility (Chronic) 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 Patient was educated on the signs and symptoms of bleeding as such as hemoptysis, hematemesis, hematochezia or melena stools. Patient has been advised to watch for these symptoms contact the office if they present. Follow-up with Dr. Clay in approximately 8 weeks as previously scheduled. Adynamic ileus (Chronic) Ventral hernia (Chronic) Hypoglycemia (Chronic) Peripheral neuropathy (Chronic) Chronic anemia (Chronic) Benign essential hypertension (Chronic) Benign prostatic hypertrophy without urinary obstruction (Chronic) CKD (chronic kidney disease), stage II (Chronic) CHF (congestive heart failure) (Chronic) CAD (coronary artery disease) (Chronic) Type II diabetes mellitus (Chronic) GERD (gastroesophageal reflux disease) (Chronic) Hypercholesteremia (Chronic) Morbid obesity (Chronic) Pulmonary hypertension (Chronic) H/O aortic valve replacement (Chronic) S/P AAA repair (Chronic) Venous insufficiency (Chronic) Tinea unguium (Chronic) Morbid obesity (Chronic) Allergies naphazoline HCl [From Naphcon] Allergy (Severe, Verified 08/20/17 15:18) affected his breathing AFFECTED HIS BREATHING amlodipine besylate [From Norvasc] Allergy (Verified 08/20/17 15:18) Other dextromethorphan Allergy (Verified 08/20/17 15:18) Other levofloxacin [From Levaquin] Adverse Reaction (Mild, Verified 08/20/17 15:18) made me hyperactive made me hyperactive Home Medications: Ambulatory Orders Medication Instructions Recorded Allopurinol [Zyloprim] 300 mg PO DAILY 03/30/17 Atorvastatin Calcium [Lipitor] 40 mg PO QHS 03/30/17 Clonidine Patch [Catapres-Tts3] 0.3 mg TOPICAL FR 03/30/17 Clopidogrel Bisulfate [Plavix] 75 mg PO DAILY 03/30/17 Ferrous Sulfate 325 mg PO DAILY 03/30/17 Finasteride [Proscar] 5 mg PO DAILY 03/30/17 Glimepiride [Amaryl] 8 mg PO BREAKFAST 03/30/17 Hydroxyzine HCl 25 mg PO TID PRN 03/30/17 Insulin Glargine [Lantus SoloStar 30 units PO BID 03/30/17 Pen] Lansoprazole 15 mg PO DAILY 03/30/17 Losartan Potassium 100 mg PO DAILY 03/30/17 Magnesium Oxide [Mag-Ox 400] 800 mg PO BID 03/30/17 Metformin HCl [Glucophage] 500 mg PO TID 03/30/17 Metoprolol Tartrate [Lopressor 50 mg PO BID 03/30/17 (beta maryam)] Multivitamins,Therapeutic 1 tab PO DAILY 03/30/17 [Multivitamin] Sertraline HCl [Zoloft] 50 mg PO QHS 03/30/17 Spironolactone 25 mg PO BID 03/30/17 Terazosin HCl [Hytrin] 10 mg PO QHS 03/30/17 albuterol sulfate HFA 90 2 puff PO Q6H PRN PRN #18 g 08/05/17 mcg/actuation aerosol inhaler Albuterol Aerosols [Ventolin 2.5 mg INHALATION Q4H PRN 08/20/17 Aerosols] Fluticasone/Salmeterol [Advair 2 puff INHALATION Q12H 08/20/17 500-50 Diskus] Furosemide [Lasix] 80 mg PO BID 08/20/17 Sertraline HCl [Zoloft] 100 mg PO DAILY 08/20/17 Surgical History: - - He has a bioprosthetic aortic valve replacement, abdominal aortic aneurysm repair '05, recent surgery to repair a large ventral hernia. Psychiatric History: Anxiety, Depression Lives: With Family Smoking Status: Former smoker Tobacco Use: Non-smoker Alcohol: None - *Family History Maternal History Items: Hypertension, - - Patient's father at the age of 94 from old age. Patient's mother at age of 87 with a history of hyperlipidemia and hypertension. Paternal History Items: Hypertension Review of Systems Constitutional: Reports: Weight Change. Denies: Chills, Fever Eyes: Denies: Blurred vision, Double vision HEENT: Denies: Head Aches, Sinus Congestion, Sinus Drainage Cardiovascular: Denies: Chest Pain, Palpitations Respiratory: Reports: Shortness of Breath. Denies: Sputum production Gastrointestinal: Denies: Abdominal Pain, Nausea, Vomiting Genitourinary: Denies: Dysuria Musculoskeletal: Denies: Joint Pain, Joint Tenderness Skin: Denies: Rash, Wounds Neurological: Denies: Numbness, Tingling, Focal weakness Psychiatric: Denies: Anxiety, Depression, Homicidal Ideations, Suicidal Ideations Hematologic/ Lymphatic: Reports: Hx of blood clot Patient Problems: Active and Suspected Problems (Last Reviewed 08/20/17 @ 18:24 by Mackenzie Wallace NP-C) Open wound, lower leg (Acute) Objective: The patient's most recent lab work, culture data and imaging studies have all been personally reviewed. - Physical Exam General: Alert, Cooperative, No apparent distress, - - Morbidly obese. Resting comfortably in bedside recliner. HEENT: Atraumatic, PERRLA, Normocephalic Oral: Moist Mucosa, No Gingival or Mucosal Lesions/ Ulcerations Neck: Supple, No Nodes, Trachea Midline, - - Difficult to assess for JVD given size of neck. Lungs: No rhonchi, No wheeze, Diminished, Rales Cardiovascular: Regular rate, Regular Rhythm, No rub noted, No Gallop Abdomen: Bowel Sounds Present, Soft, Distended, Obese, Hernia Extremities: No clubbing, Diminished Peripheral Pulses, Edema Skin: - - Lower extremity venous stasis dermatitis. Musculoskeletal: No Muscle Wasting Lymphatic: No Cervical, Supraclavicular, or Inguinal Adenopathy Neurological: Neuro grossly intact Psych/Mental Status: Normal Affect, Appropriate Vital Signs Temp Pulse Resp BP Pulse Ox 98.2 F 72 16 139/55 H 96 08/21/17 03:05 08/21/17 03:05 08/21/17 03:05 08/21/17 03:05 08/21/17 03:05 Oxygen Flow Rate (L/min) 7 Oxygen Delivery Method CPAP Weight: 384 lb 0.724 oz Body Mass Index (BMI) 58.7 Intake and Output for Last 24 Hours 08/19/17 08/20/17 08/21/17 23:59 23:59 23:59 Intake Total 1439.1 / 1439.1 Output Total 1500 / 1500 2300 / 2300 Balance -1500 / -1500 -860.9 / -860.9 Laboratory Tests Past 24 Hrs 08/20/17 08/20/17 08/21/17 19:17 23:04 06:15 WBC 5.6 RBC 3.19 L Hgb 8.7 L Hct 28.9 L MCV 90.6 MCH 27.3 MCHC 30.1 L RDW 14.2 RDW Differential 45.5 H Plt Count 210 MPV 8.8 Sodium Potassium Chloride Carbon Dioxide Anion Gap BUN Creatinine Estim Creat Clear Calc Est GFR (MDRD) Af Amer Est GFR (MDRD) Non-Af BUN/Creatinine Ratio Glucose Calcium Troponin I < 0.02 < 0.02 Triglycerides Cholesterol LDL Cholesterol VLDL Cholesterol HDL Cholesterol 08/21/17 06:15 WBC RBC Hgb Hct MCV MCH MCHC RDW RDW Differential Plt Count MPV Sodium 139 Potassium 3.4 L Chloride 97 L Carbon Dioxide 37.0 H Anion Gap 5 BUN 12 Creatinine 1.05 Estim Creat Clear Calc 59.71 Est GFR (MDRD) Af Amer 89 Est GFR (MDRD) Non-Af 73 BUN/Creatinine Ratio 11.4 Glucose 172 H Calcium 8.2 L Troponin I < 0.02 Triglycerides 332 H Cholesterol 127 LDL Cholesterol 36 VLDL Cholesterol 66 H HDL Cholesterol 25 L POC Glucose 08/21/17 08/21/17 08/20/17 06:45 03:09 21:32 POC Glucose 181 H 181 H 239 H 08/20/17 18:06 POC Glucose 199 H Clinical Impression(s) from Imaging Studies Chest X-Ray 08/20/17 15:08 IMPRESSION: There is moderate enlargement of the cardiac silhouette with diffuse edema and a small right effusion. There is bibasilar atelectasis. Electronically Signed: Antoinette Blank MD at 16:00 EDT Tel Direct: [phone], Service support , Chest CTA 08/20/17 15:41 IMPRESSION: There is no evidence of pulmonary embolus in the main pulmonary artery or right and left pulmonary arteries. There may be minimal residual chronic clot within a few branches of the right upper lobe. The remaining peripheral branches are suboptimally evaluated due to poor contrast bolus and breathing motion artifact. There is mild enlargement of the heart with mild edema. There is a moderate right pleural effusion and a small left pleural effusion. There is dense atelectasis in the right lower lobe and minimal atelectasis in the left lower lobe. There is herniation of stomach or colon in the midline epigastric region with a defect measuring 8 cm along the anterior upper abdominal wall. Electronically Signed: Antoinette Blank MD at 17:04 EDT Tel Direct: [phone], Service support , Assessment/Plan Active and Suspected Problems (Last Reviewed 08/20/17 @ 18:24 by Mackenzie Wallace NP-C) Open wound, lower leg (Acute) RECOMMENDATIONS: 1. Continue scheduled aerosol regimen 2. Resume Eliquis 3. Continue attempts at volume optimization with IV Lasix 4. I do not see an indication for antibiotics at this time 5. The patient is a chronic CO2 retainer. Would recommend keeping oxygen saturations 88-92%. 6. Continue nightly BiPAP therapy with a pressure setting of 18/12 cm of water. 7. Recommend physical therapy evaluation 8. Strongly recommend correction placement at the time of discharge. The patient has poor insight and poor overall compliance with medical therapy. IMPRESSIONS: 1. Acute on chronic hypoxemic and hypercarbic respiratory failure Likely multifactorial in etiology with baseline COPD, morbid obesity, noncompliance with outpatient inhaler regimen, noncompliance with the use of noninvasive positive pressure ventilation and decompensated heart failure contributing. In addition, the patient is a known pulmonary embolism first diagnosed in March 2017, for which she reportedly only completed a one-month course of Eliquis. Agree with continued attempts at volume optimization with IV Lasix. Await repeat echocardiogram. Continue scheduled aerosol treatments. I do not see an indication for antibiotics at this time. Maintain oxygen saturations 88-92%. Continue BiPAP therapy at 18/12 cm of water with naps and nightly. 2. History of pulmonary embolism The patient was initially diagnosed with a PE in March 2017. He only completed approximately 1 month of treatment. Agree with resumption of Eliquis. 3. Obstructive sleep apnea The patient is known to be noncompliant with the use of BiPAP therapy on an outpatient basis. His most recent compliance report only demonstrated 27% compliance over the last 30 days. 4. Known COPD The patient has also been noncompliant with the use of his outpatient inhaler regimen. I spoke to him at length regarding the importance of this at his last office visit. Despite this, he readily admits that he ran out of his medications recently and did not attempt to refill them. Continue scheduled aerosol treatments as ordered. 4. Super morbid obesity/noncompliance with medical therapy/aortic valve replacement/hypertension/diabetes Complicates care, management, recovery and prognosis. Continue current insulin regimen. Recommend physical therapy evaluation. Encourage incentive spirometer use and mobilize patient as tolerated. This note was generated with Pro[employer] dictation software. It may contain incorrect words, spelling, and punctuation that were not noted in checking the note before signing. Code Visit Inpatient E&M: 25865 Init Hosp L3
[2017-08-21] MEDS: Ipratropium/Albuterol Sulfate 3 ML AMPUL.NEB INHALATION ×5 (07:36→23:27)
[2017-08-21] MEDS: Ferrous Sulfate 325 MG Tablet PO (08:12)
[2017-08-21] MEDS: Allopurinol 300 MG Tablet PO (08:12)
[2017-08-21] MEDS: Multivitamins,Therapeutic Tablet 1 TABLET PO (08:12)
[2017-08-21] MEDS: Spironolactone 25 MG Tablet PO ×2 (09:27→21:48)
[2017-08-21] MEDS: APIXABAN 5 MG TABLET PO ×2 (09:28→21:48)
[2017-08-21] MEDS: Losartan Potassium 100 MG Tablet PO (09:28)
[2017-08-21] MEDS: Metoprolol Tartrate 50 MG Tablet PO ×2 (09:29→21:48)
[2017-08-21] MEDS: Famotidine 20 MG Tablet PO ×2 (09:29→21:48)
[2017-08-21] MEDS: Magnesium Oxide 400 MG Tablet 800 MG PO ×2 (09:29→21:48)
[2017-08-21] MEDS: Sertraline 50 MG Tablet 100 MG PO (09:30)
[2017-08-21] MEDS: Senna/Docusate Sodium 1 Tablet 2 TABLET PO ×2 (09:30→21:48)
[2017-08-21] MEDS: Finasteride 5 MG Tablet PO (09:30)
[2017-08-21 11:16] LABS: Bedside Glucose 242 mg/dL (70-110)
--- NOTE | 2017-08-21 11:33 | CASEMGMT ---
COREY PEREZ CHART REVIEW: KELLICarrie STRATA: 3 ADM DX: Acute CHF Exacerbation INSURANCE: [facility] A/B STATUS: IP [place]: Per physician documentation, the patient is a 72 y/o M who presents to the [facility] ED on 08/20/17 with history of progressively worsening dyspnea, worse with exertion, orthopnea, worsening BL LE edema with onset blistering and open serous drainage secondary to severity of edema without improvement with self imposed increased O2 level and noted concurrent O2 and BIPAP placement q HS with recent treatment per his Pulmonary Team w/ increased oral lasix without marked improvement with referral to Cardiology for CHF evaluation but given worsened status referred to the ED for evaluation per Pulmonary at his appointment on day of ED presentation. Per review with patient he noted only completion of initial Rx Eliquis and has not been on it since and also notes current BL LE wounds dressed only QOD per family with worsening wounds, drainage as edema LE worsened. PMHX: AOCD, BPH, HTN, Diabetes mellitus type II w/ neuropathy, Tobacco use, CHF Unclear type, CKD stage II, COPD, History of AVR, History of AAA s/p repair, GERD, Morbid Obesity PVD, Hx Ileus, Hx PE on Eliquis prior Transition Planning/Care Coordination: COREY PEREZ reviewed patient's EMR and note patient has significant medical history, lives with his spouse who, per her report, is handicapped, has had HHC and been to SNF in the past. The patient is on chronic home oxygen supplied by [facility], patient has shower chair, grab bars, and walker. Patient requires assistance at baseline. SW referral for patient with multiple chronic conditions and not managing well at home per phone conversation with patient's spouse. The patient is established with Dr. Clay for pulmonary, Dr. Coto for cardiology, and Dr. Verdugo for primary care. Dr. Raymundo consulted here in the hospital. COREY PEREZ spoke with patient who stated his goal is to transition to home with assist of HHC, but COREY PEREZ called patient's spouse and she reports difficulty managing patient's care at home and is asking what resources would be available. COREY PEREZ notified SW of patient's spouse concerns. COREY PEREZ will review PT/OT recommendations and continue to follow hospital course for safe transition planning. SW will follow for support. Disposition Plan: CHERRY Lopez, RN-BC, CCM
--- NOTE | 2017-08-21 13:05 | CASEMGMT ---
RN ANA spoke with patient and spoke with patient's via phone conversation re: Dr. Clay's recommendation for SNF/TCU placement for medical optimization and skilled therapy. Patient and Patient's spouse are agreeable to this, and patient would be able to transfer to [facility] TCU on Thursday. SW following for transition planning. Disposition Plan: TCU on Thursday CHERRY Gleason, RN-BC, CCM
--- NOTE | 2017-08-21 15:36 | PCM.PROGNOTE ---
Patient Problems: Active and Suspected Problems (Last Reviewed 08/20/17 @ 18:24 by YVETTE Pimentel) Open wound, lower leg (Acute) Subjective: Patient was seen and examined today, I went in to examine him with the wound nurse who unwrapped his legs today. Patient has been spreading in the direction of his trashcan rather than using a Kleenex, wound nurses he does this often, when I asked the patient why he does this he states he usually hits the trashcan and then laughs inappropriately. He also states that he is using his BIPAP all the time and that Dr. Clay is wrong but is not using his BIPAP. After his lower legs were unwrapped, patient has excoriations over both lower legs and chronic redness associated with stasis dermatitis. There is no obvious areas that I consider infected at this time, there is very little discharge on the bandage that was removed from the lower legs. I decided to stop the patient's Zosyn. services program manager tells me that is unable to take care of the patient at home at this time and arrangements are going to be made for the patient to go to TCU [facility] for rehab services. I have reviewed pulmonary medicine and cardiology notes concerning this patient. - Physical Exam General: Alert, Oriented x3, Cooperative, No apparent distress, Well developed HEENT: Atraumatic, PERRLA, EOMI, Normocephalic Oral: Moist Mucosa Neck: Supple, No JVD, No Nuchal Rigidity, Trachea Midline, Thyroid Normal Size and Texture Lungs: Clear to auscultation, No rhonchi, No wheeze, No rales, Diminished Cardiovascular: Regular rate, Regular Rhythm, Normal S1, Normal S2, No murmurs, No Ectopic Activity Abdomen: Bowel Sounds Present, Soft, Non Tender, Non-Distended, Obese Extremities: No clubbing, Capillary Refill Less than 3 Seconds, Edema - Generalized edema is noted over the patient's lower legs Skin: No rashes, Excoriated - skin excoriations over the patient's lower legs bilaterally Neurological: Cranial nerves II-XII grossly intact, Neuro grossly intact, Sensory exam intact to light touch and pain, Coordination normal Psych/Mental Status: Normal Affect, Appropriate, Alert and oriented to time, place, person, mood and affect Vital Signs Temp Pulse Resp BP Pulse Ox 99.0 F 67 18 137/63 H 97 08/21/17 14:30 08/21/17 14:30 08/21/17 14:30 08/21/17 14:30 08/21/17 14:30 Oxygen Flow Rate (L/min) 7 Oxygen Delivery Method Nasal Cannula Weight: 174.2 kg Body Mass Index (BMI) 58.7 Intake and Output for Last 24 Hours 08/19/17 08/20/17 08/21/17 23:59 23:59 23:59 Intake Total 2039.1 / 2039.1 Output Total 1500 / 1500 3300 / 3300 Balance -1500 / -1500 -1260.9 / -1260.9 Laboratory Tests Past 24 Hrs 08/20/17 08/20/17 08/21/17 19:17 23:04 06:15 WBC 5.6 RBC 3.19 L Hgb 8.7 L Hct 28.9 L MCV 90.6 MCH 27.3 MCHC 30.1 L RDW 14.2 RDW Differential 45.5 H Plt Count 210 MPV 8.8 Sodium Potassium Chloride Carbon Dioxide Anion Gap BUN Creatinine Estim Creat Clear Calc Est GFR (MDRD) Af Amer Est GFR (MDRD) Non-Af BUN/Creatinine Ratio Glucose Calcium Troponin I < 0.02 < 0.02 Triglycerides Cholesterol LDL Cholesterol VLDL Cholesterol HDL Cholesterol 08/21/17 06:15 WBC RBC Hgb Hct MCV MCH MCHC RDW RDW Differential Plt Count MPV Sodium 139 Potassium 3.4 L Chloride 97 L Carbon Dioxide 37.0 H Anion Gap 5 BUN 12 Creatinine 1.05 Estim Creat Clear Calc 59.71 Est GFR (MDRD) Af Amer 89 Est GFR (MDRD) Non-Af 73 BUN/Creatinine Ratio 11.4 Glucose 172 H Calcium 8.2 L Troponin I < 0.02 Triglycerides 332 H Cholesterol 127 LDL Cholesterol 36 VLDL Cholesterol 66 H HDL Cholesterol 25 L POC Glucose 08/21/17 08/21/17 08/21/17 11:07 06:45 03:09 POC Glucose 242 H 181 H 181 H 08/20/17 08/20/17 21:32 18:06 POC Glucose 239 H 199 H Medical Necessity - Tobacco Use Smoking Status: Former smoker Tobacco Use: Non-smoker Assessment/Plan Active and Suspected Problems (Last Reviewed 08/20/17 @ 18:24 by Mackenzie Wallace NP-C) Open wound, lower leg (Acute) #1 acute on chronic diastolic congestive heart failure-continue Lasix #2 anasarca-continue IV Lasix, patient has a Andrews catheter to monitor accurate urine output. #3 type 2 diabetes #4 hypertension #5 chronic obstructive pulmonary disease #6 chronic hypoxic respiratory failure #7 iron deficiency anemia-serum iron and TIBC will be drawn #8 chronic kidney disease stage II secondary to type 2 diabetes #9 obstructive sleep apnea-continue BiPAP #10 super morbid obesity #11 noncompliance with medical regimen #12 chronic stasis dermatitis of the lower legs with excoriation of both lower legs-I do not believe the patient has an active cellulitis at this time, orders were put in by the wound care nurse, patient will be taken off his Zosyn #13 generalized debility due to super morbid obesity and multiple medical problems Code Visit Inpatient E&M: 45740 Subs Hosp L2
--- NOTE | 2017-08-21 15:39 | NURSING ---
wound photo: right lower leg
--- NOTE | 2017-08-21 15:40 | NURSING ---
wound photo: left lower leg
[2017-08-21 16:55] LABS: Bedside Glucose 233 mg/dL (70-110)
[2017-08-21 17:55] LABS: Iron 24 ug/dL (65-175); Iron Binding Capacity,Total 188 ug/dL (250-450); PERCENT IRON SATURATION 12.8 % (15.0-55.0)
[2017-08-21] MEDS: Doxazosin 4 MG Tablet 8 MG PO (21:48)
[2017-08-21] MEDS: Atorvastatin Calcium 40 MG Tablet PO (21:48)
[2017-08-21 22:36] LABS: Bedside Glucose 245 mg/dL (70-110)
[2017-08-22] VITALS (19 sets, daily range): BP systolic 116–152; BP diastolic 61–68; PULSE 65–81; RESP 18–22; TEMP 36.4–37.2; O2SAT 88–98
[2017-08-22] MEDS: Furosemide 100 MG/10 ML Vial 60 MG IV ×3 (05:02→21:29)
[2017-08-22] MEDS: Ipratropium/Albuterol Sulfate 3 ML AMPUL.NEB INHALATION ×3 (07:15→19:07)
--- NOTE | 2017-08-22 07:43 | PN_ITS ---
Patient Problems: Active and Suspected Problems (Last Reviewed 08/20/17 @ 18:24 by YVETTE Pimentel) Open wound, lower leg (Acute) Subjective: The patient was seen and examined at the bedside this morning. Events from the last 24 hours have been reviewed. The patient is currently afebrile, hemodynamically stable and maintaining appropriate oxygen saturations on 7 L/ min via nasal cannula. There have been no attempts to wean the patient supplemental oxygen, despite my recommendations to maintain his saturations 88- 92%. He is overall net -5.6 L for the admission. The patient denies the presence of cough this morning. For reasons that are not entirely clear to me, the patient was never placed on his home BiPAP machine, which is sitting at the bedside, overnight. Objective: The patient's most recent lab work, culture data and imaging studies have all been personally reviewed. The patient has known moderately severe obstructive lung disease with significant response to aerosolized bronchodilators and evidence of air trapping and reduction in diffusing capacity, based off of PFTs completed in April 2016. The patient also has known severe obstructive sleep apnea, which was diagnosed in December 2015. Patient eventually underwent a titration study which was recommended that he be placed on BiPAP therapy with a pressure setting of 18/12 cm of water. His last surface echocardiogram from November 2015 showed evidence of a moderately dilated RV with RV systolic dysfunction and a right ventricular systolic pressure which was estimated to be 47 mmHg. - Physical Exam General: Alert, Cooperative, No apparent distress, - - Morbidly obese and resting comfortably in bed. HEENT: Atraumatic, PERRLA, Normocephalic Oral: No Gingival or Mucosal Lesions/ Ulcerations Neck: Supple, No Nodes, Trachea Midline, - - Large neck circumference with redundant soft tissue Lungs: - - Poor generalized air movement throughout. Distant breath sounds secondary to body habitus and poor inspiratory effort. Cardiovascular: Regular rate, Regular Rhythm, Normal S1, Normal S2, No murmurs Abdomen: Bowel Sounds Present, Soft, Non Tender, Distended, Obese, Hernia Extremities: No clubbing, No cyanosis, Diminished Peripheral Pulses, Edema Skin: - - Lower extremity venous stasis dermatitis Musculoskeletal: No Muscle Wasting Lymphatic: No Cervical, Supraclavicular, or Inguinal Adenopathy Neurological: Neuro grossly intact Psych/Mental Status: Normal Affect, Appropriate Vital Signs Temp Pulse Resp BP Pulse Ox 97.6 F L 72 22 H 132/61 H 97 08/22/17 04:58 08/22/17 07:00 08/22/17 04:58 08/22/17 04:58 08/22/17 04:58 Oxygen Flow Rate (L/min) 7 Oxygen Delivery Method Room Air Weight: 384 lb 4.251 oz Body Mass Index (BMI) 58.7 Intake and Output for Last 24 Hours 08/20/17 08/21/17 08/22/17 23:59 23:59 23:59 Intake Total 2399.1 / 2399.1 Output Total 1500 / 1500 4550 / 4550 1999 Balance -1500 / -1500 -2150.9 / -2150.9 -1999 Laboratory Tests Past 24 Hrs 08/21/17 08/22/17 06:15 07:20 Sodium Pending Potassium Pending Chloride Pending Carbon Dioxide Pending Anion Gap Pending BUN Pending Creatinine Pending Est GFR (MDRD) Af Amer Pending Est GFR (MDRD) Non-Af Pending BUN/Creatinine Ratio Pending Glucose Pending Calcium Pending Iron 24 L TIBC 188 L Iron Saturation 12.8 L POC Glucose 08/21/17 08/21/17 08/21/17 21:43 16:50 11:07 POC Glucose 245 H 233 H 242 H Clinical Impression(s) from Imaging Studies Chest X-Ray 08/20/17 15:08 IMPRESSION: There is moderate enlargement of the cardiac silhouette with diffuse edema and a small right effusion. There is bibasilar atelectasis. Electronically Signed: Antoinette Blank MD at 16:00 EDT Tel Direct: [phone], Service support , Chest CTA 08/20/17 15:41 IMPRESSION: There is no evidence of pulmonary embolus in the main pulmonary artery or right and left pulmonary arteries. There may be minimal residual chronic clot within a few branches of the right upper lobe. The remaining peripheral branches are suboptimally evaluated due to poor contrast bolus and breathing motion artifact. There is mild enlargement of the heart with mild edema. There is a moderate right pleural effusion and a small left pleural effusion. There is dense atelectasis in the right lower lobe and minimal atelectasis in the left lower lobe. There is herniation of stomach or colon in the midline epigastric region with a defect measuring 8 cm along the anterior upper abdominal wall. Electronically Signed: Antoinette Blank MD at 17:04 EDT Tel Direct: [phone], Service support , Medical Necessity - Tobacco Use Smoking Status: Former smoker Tobacco Use: Non-smoker Assessment/Plan Active and Suspected Problems (Last Reviewed 08/20/17 @ 18:24 by Mackenzie Wallace, ERIC-C) Open wound, lower leg (Acute) RECOMMENDATIONS: 1. Continue scheduled aerosol regimen 2. Continue Eliquis. Given the patient's sedentary lifestyle, will plan for lifelong continuation unless complications arise. 3. Continue attempts at volume optimization with IV Lasix 4. The patient is a chronic CO2 retainer. Would recommend keeping oxygen saturations 88-92%. 5. Continue nightly BiPAP therapy with a pressure setting of 18/12 cm of water. 6. Physical therapy to work with patient 7. Strongly recommend fci placement at the time of discharge. The patient has poor insight and poor overall compliance with medical therapy. IMPRESSIONS: 1. Acute on chronic hypoxemic and hypercarbic respiratory failure Likely multifactorial in etiology with baseline COPD, morbid obesity, noncompliance with outpatient inhaler regimen, noncompliance with the use of noninvasive positive pressure ventilation and decompensated heart failure contributing. In addition, the patient is a known pulmonary embolism first diagnosed in March 2017, for which she reportedly only completed a one-month course of Eliquis. Agree with continued attempts at volume optimization with IV Lasix. Continue scheduled aerosol treatments. Maintain oxygen saturations 88- 92%. Continue BiPAP therapy at 18/12 cm of water with naps and nightly. 2. History of pulmonary embolism The patient was initially diagnosed with a PE in March 2017. He only completed approximately 1 month of treatment. Agree with resumption of Eliquis. In the absence of any bleeding complications, would recommend lifelong continuation of said medication, given the patient's exceedingly sedentary lifestyle. 3. Obstructive sleep apnea The patient is known to be noncompliant with the use of BiPAP therapy on an outpatient basis. His most recent compliance report only demonstrated 27% compliance over the last 30 days. 4. Known COPD The patient has also been noncompliant with the use of his outpatient inhaler regimen. I spoke to him at length regarding the importance of this at his last office visit. Despite this, he readily admits that he ran out of his medications recently and did not attempt to refill them. Continue scheduled aerosol treatments as ordered. 5. Super morbid obesity/noncompliance with medical therapy/aortic valve replacement/hypertension/diabetes Complicates care, management, recovery and prognosis. Continue current insulin regimen. Recommend physical therapy evaluation. Encourage incentive spirometer use and mobilize patient as tolerated. This note was generated with [employer] dictation software. It may contain incorrect words, spelling, and punctuation that were not noted in checking the note before signing. Code Visit Inpatient E&M: 96144 Subs Hosp L2
[2017-08-22 08:03] LABS: Anion Gap 3 (5-15); BUN 14 mg/dL (7-18); Calcium,Total 8.3 mg/dL (8.5-10.1); Chloride 95 mmol/L (98-107); Creatinine, Serum 1.17 mg/dL (0.70-1.30); EST Glomerular Filtration Rate 65 mL/min (>60); Est Glom Filt Rate - Afr Amer 78 mL/min (>60); Estimated Creatinine Clearance 53.59 ml/min; Glucose 163 mg/dL (74-106); Potassium 3.6 mmol/L (3.5-5.1); Sodium Level 140 mmol/L (136-145)
[2017-08-22 08:05] LABS: Bedside Glucose 150 mg/dL (70-110)
[2017-08-22] MEDS: Allopurinol 300 MG Tablet PO (08:07)
[2017-08-22] MEDS: Multivitamins,Therapeutic Tablet 1 TABLET PO (08:07)
[2017-08-22] MEDS: Ferrous Sulfate 325 MG Tablet PO (08:07)
--- NOTE | 2017-08-22 08:47 | PN.CARD_ITS ---
Subjectve: Patient seen and evaluated Objective: Vital Signs Temp Pulse Resp BP Pulse Ox 97.6 F L 76 18 132/61 H 98 08/22/17 04:58 08/22/17 07:15 08/22/17 07:15 08/22/17 04:58 08/22/17 07:15 Oxygen Flow Rate (L/min) 7 Oxygen Delivery Method Nasal Cannula Weight: 384 lb 4.251 oz Body Mass Index (BMI) 58.7 Intake and Output for Last 24 Hours 08/20/17 08/21/17 08/22/17 23:59 23:59 23:59 Intake Total 2399.1 / 2399.1 Output Total 1500 / 1500 4550 / 4550 1999 Balance -1500 / -1500 -2150.9 / -2150.9 -1999 General: Awake, Alert, Oriented x 3, Obese HEENT: PERRL, EOMI, Sclera Non Icteric Neck: Supple, Good ROM, No Lymph Node Enlargement Lungs: Clear to auscultation Cardiovascular: Regular Rhythm, Normal S1, Normal S2, No Murmurs, No Rubs, No Gallops Vascular: No Carotid Bruits, Normal Femoral Pulses, Normal Radial Pulses, Normal Dorsalis Pedal Pulse, Normal Posterior Tibial Pulses Abdomen: Bowel Sounds Present, Soft, Non Tender, No HSM, No Organomegaly Extremities: No Cyanosis, No Clubbing, Bilateral Edema +2 Neurological: No Focal Motor or Sensory Deficit 08/21/17 06:15: Iron 24 L, TIBC 188 L, Iron Saturation 12.8 L 08/22/17 07:20: Sodium 140, Potassium 3.6, Chloride 95 L, Carbon Dioxide 42.0 H , Anion Gap 3 L, BUN 14, Creatinine 1.17, Est GFR (MDRD) Af Amer 78, Est GFR ( MDRD) Non-Af 65, BUN/Creatinine Ratio 12.0, Glucose 163 H, Calcium 8.3 L Medical Necessity - Tobacco Use Smoking Status: Former smoker Tobacco Use: Non-smoker Assessment/Plan 1. Congestive heart failure-chronic diastolic He appears to have congestive heart failure which appears to be chronic and diastolic. The plan will be to continue him on an EM inhibitor and diuretics as well as control his blood pressure and see how he does. I do not think that this is secondary to a valve dysfunction. His echo demonstated preserved left ventricular ejection fraction 2. 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 Has preserved LV EF 3. Hypertension His blood pressure appears to be under fair control. I recommend continuing the losartan as well as the beta-maryam. He is on clonidine. We may be a chance to make some changes to the above depending on how he responds to this. 4. Abdominal aortic aneurysm-is post repair He is status post repair of the abdominal aortic aneurysm. At this time I do not have any indication to think that there is any problem with the above. However control of his blood pressure is paramount. 5. Obesity Patient is significantly obese and he has been counseled about maintaining a more appropriate weight. 6. History of pulmonary embolism. He is at high risk for recurrent pulmonary embolism and I would recommend that we start him back on his Eliquis 5 mg twice a day. Intravenous heparin may pose a risk and may mask any retroperitoneal bleed. Thank you for allowing me to participate in the care of your patient. Please don't hesitate to call if any issues arise
[2017-08-22] MEDS: Losartan Potassium 100 MG Tablet PO (09:07)
[2017-08-22] MEDS: Metoprolol Tartrate 50 MG Tablet PO ×2 (09:07→21:26)
[2017-08-22] MEDS: Finasteride 5 MG Tablet PO (09:08)
[2017-08-22] MEDS: Sertraline 50 MG Tablet 100 MG PO (09:08)
[2017-08-22] MEDS: Senna/Docusate Sodium 1 Tablet 2 TABLET PO ×2 (09:08→21:25)
[2017-08-22] MEDS: Famotidine 20 MG Tablet PO ×2 (09:08→21:25)
[2017-08-22] MEDS: Magnesium Oxide 400 MG Tablet 800 MG PO ×2 (09:08→21:25)
[2017-08-22] MEDS: APIXABAN 5 MG TABLET PO ×2 (09:08→21:26)
[2017-08-22] MEDS: Spironolactone 25 MG Tablet PO ×2 (09:09→21:25)
--- NOTE | 2017-08-22 10:27 | PCM.PROGNOTE ---
Patient Problems: Active and Suspected Problems (Last Reviewed 08/20/17 @ 18:24 by YVETTE Pimentel) Open wound, lower leg (Acute) Subjective: Patient seen and examined today, he voices no complaints this examiner, is currently on BiPAP and trying to sleep. Patient still diuresing well. - Physical Exam General: Alert, Oriented x3, Cooperative, No apparent distress, Well developed, Well nourished HEENT: Atraumatic, PERRLA, EOMI, Normocephalic Oral: Moist Mucosa Neck: Supple, No JVD, No Nuchal Rigidity, Trachea Midline, Thyroid Normal Size and Texture Lungs: Clear to auscultation, Normal air movement, No rhonchi, No wheeze, No rales Cardiovascular: Regular rate, Regular Rhythm, Normal S1, Normal S2, No murmurs, No Ectopic Activity Abdomen: Bowel Sounds Present, Soft, Non Tender, Non-Distended, Obese, - - Large ventral hernia is noted Extremities: No clubbing, No cyanosis, Edema - Generalized edema is noted over both lower extremities both legs are wrapped with Juan wraps and I did not remove these Neurological: Cranial nerves II-XII grossly intact, Neuro grossly intact, Sensory exam intact to light touch and pain, Coordination normal Psych/Mental Status: Normal Affect, Appropriate, Alert and oriented to time, place, person, mood and affect Vital Signs Temp Pulse Resp BP Pulse Ox 98.8 F 79 18 134/61 H 89 08/22/17 09:13 08/22/17 09:13 08/22/17 09:13 08/22/17 09:13 08/22/17 09:49 Oxygen Flow Rate (L/min) 6 Oxygen Delivery Method Bi-pap Weight: 174.3 kg Body Mass Index (BMI) 58.7 Intake and Output for Last 24 Hours 08/20/17 08/21/17 08/22/17 23:59 23:59 23:59 Intake Total 2399.1 / 2399.1 Output Total 1500 / 1500 4550 / 4550 1999 Balance -1500 / -1500 -2150.9 / -2150.9 -1999 Laboratory Tests Past 24 Hrs 08/21/17 08/22/17 06:15 07:20 Sodium 140 Potassium 3.6 Chloride 95 L Carbon Dioxide 42.0 H Anion Gap 3 L BUN 14 Creatinine 1.17 Estim Creat Clear Calc 53.59 Est GFR (MDRD) Af Amer 78 Est GFR (MDRD) Non-Af 65 BUN/Creatinine Ratio 12.0 Glucose 163 H Calcium 8.3 L Iron 24 L TIBC 188 L Iron Saturation 12.8 L POC Glucose 08/22/17 08/21/17 08/21/17 07:58 21:43 16:50 POC Glucose 150 H 245 H 233 H 08/21/17 11:07 POC Glucose 242 H Medical Necessity - Tobacco Use Smoking Status: Former smoker Tobacco Use: Non-smoker Assessment/Plan Active and Suspected Problems (Last Reviewed 08/20/17 @ 18:24 by Mackenzie Wallace, ERIC-C) Open wound, lower leg (Acute) #1 acute on chronic diastolic congestive heart failure-continue Lasix IV, cardiology is participating with his care #2 anasarca-continue IV Lasix, patient continues to need a Andrews catheter to monitor accurate urine output. #3 type 2 diabetes #4 hypertension #5 chronic obstructive pulmonary disease #6 chronic hypoxic respiratory failure #7 iron deficiency anemia-serum iron was 24, I will place patient on Venofer for iron replacement, I will review his medications and add oral iron if needed #8 chronic kidney disease stage II secondary to type 2 diabetes #9 obstructive sleep apnea-continue BiPAP #10 super morbid obesity #11 noncompliance with medical regimen #12 chronic stasis dermatitis of the lower legs with excoriation of both lower legs-again, I do not believe the patient has an active cellulitis and does not require antibiotics. #13 generalized debility due to super morbid obesity and multiple medical problems-PT and OT are seeing the patient, he will need temporary placement in an ECF Code Visit Inpatient E&M: 00219 Subs Hosp L2
[2017-08-22 12:01] LABS: Bedside Glucose 213 mg/dL (70-110)
[2017-08-22 16:10] LABS: Bedside Glucose 236 mg/dL (70-110)
[2017-08-22] MEDS: Budesonide Respules 0.5 MG/2 ML AMPUL.NEB. INHALATION (19:07)
[2017-08-22] MEDS: Atorvastatin Calcium 40 MG Tablet PO (21:25)
[2017-08-22] MEDS: Doxazosin 4 MG Tablet 8 MG PO (21:26)
[2017-08-22 21:55] LABS: Bedside Glucose 223 mg/dL (70-110)
--- NOTE | 2017-08-22 22:48 | CPS ---
Pt on home bipap unit resting comfortably
[2017-08-23] VITALS (15 sets, daily range): BP systolic 124–157; BP diastolic 47–63; PULSE 65–77; RESP 16–20; TEMP 36.9–37.2; O2SAT 93–95
[2017-08-23] MEDS: Furosemide 100 MG/10 ML Vial 60 MG IV ×3 (06:37→22:03)
[2017-08-23] MEDS: Budesonide Respules 0.5 MG/2 ML AMPUL.NEB. INHALATION ×2 (07:13→19:07)
[2017-08-23] MEDS: Ipratropium/Albuterol Sulfate 3 ML AMPUL.NEB INHALATION ×4 (07:13→19:06)
[2017-08-23 07:20] LABS: Bedside Glucose 169 mg/dL (70-110)
[2017-08-23] MEDS: Multivitamins,Therapeutic Tablet 1 TABLET PO (08:10)
[2017-08-23] MEDS: Allopurinol 300 MG Tablet PO (08:10)
[2017-08-23] MEDS: Ferrous Sulfate 325 MG Tablet PO ×2 (08:10→16:30)
--- NOTE | 2017-08-23 08:24 | PN_ITS ---
Patient Problems: Active and Suspected Problems (Last Reviewed 08/20/17 @ 18:24 by YVETTE Pimentel) Open wound, lower leg (Acute) Subjective: The patient was seen and examined at the bedside this morning. Events from the last 24 hours have been reviewed. The patient is currently afebrile, hemodynamically stable and maintaining appropriate oxygen saturations on 3 L/ min via nasal cannula. The patient was tolerant of BiPAP therapy overnight. The patient is now overall net -7.6 L for the admission. He denies the presence of a cough, resting shortness of breath or chest pain. Objective: The patient's most recent lab work, culture data and imaging studies have all been personally reviewed. The patient has known moderately severe obstructive lung disease with significant response to aerosolized bronchodilators and evidence of air trapping and reduction in diffusing capacity, based off of PFTs completed in April 2016. The patient also has known severe obstructive sleep apnea, which was diagnosed in December 2015. Patient eventually underwent a titration study which was recommended that he be placed on BiPAP therapy with a pressure setting of 18/12 cm of water. His last surface echocardiogram from November 2015 showed evidence of a moderately dilated RV with RV systolic dysfunction and a right ventricular systolic pressure which was estimated to be 47 mmHg. - Physical Exam General: Alert, Cooperative, No apparent distress, - - Morbidly obese and resting comfortably in bed. HEENT: Atraumatic, PERRLA, Normocephalic Oral: No Gingival or Mucosal Lesions/ Ulcerations Neck: Supple, No Nodes, Trachea Midline, - - Large neck circumference with redundant soft tissue. Lungs: - - Baseline globally diminished air movement bilaterally with poor patient dependent inspiratory effort. Cardiovascular: Regular rate, Regular Rhythm, Normal S1, Normal S2, No murmurs Abdomen: Bowel Sounds Present, Soft, Distended, Obese, Hernia Extremities: No clubbing, No cyanosis, Diminished Peripheral Pulses, - - Bilateral lower extremity pitting edema Skin: - - Lower extremity venous stasis dermatitis Musculoskeletal: No Muscle Wasting Lymphatic: No Cervical, Supraclavicular, or Inguinal Adenopathy Neurological: Neuro grossly intact Psych/Mental Status: Normal Affect, Appropriate Vital Signs Temp Pulse Resp BP Pulse Ox 98.4 F 74 18 130/63 H 93 08/23/17 03:14 08/23/17 07:13 08/23/17 07:13 08/23/17 03:14 08/23/17 07:13 Oxygen Flow Rate (L/min) 3 Oxygen Delivery Method Nasal Cannula Weight: 379 lb 10.176 oz Body Mass Index (BMI) 58.7 Intake and Output for Last 24 Hours 08/21/17 08/22/17 08/23/17 23:59 23:59 23:59 Intake Total 2399.1 / 2399.1 960 / 960 120 / 120 Output Total 4550 / 4550 4125 / 4125 950 / 950 Balance -2150.9 / -2150.9 -3165 / -3165 -830 / -830 POC Glucose 08/23/17 08/22/17 08/22/17 06:44 21:31 16:02 POC Glucose 169 H 223 H 236 H 08/22/17 11:16 POC Glucose 213 H Labs (Last 48 Hours) 08/21/17 08/21/17 08/21/17 06:15 11:07 16:50 Sodium Potassium Chloride Carbon Dioxide Anion Gap BUN Creatinine Estim Creat Clear Calc Est GFR (MDRD) Af Amer Est GFR (MDRD) Non-Af BUN/Creatinine Ratio Glucose Calcium Iron 24 L TIBC 188 L Iron Saturation 12.8 L POC Glucose 242 H 233 H 08/21/17 08/22/17 08/22/17 21:43 07:20 07:58 Sodium 140 Potassium 3.6 Chloride 95 L Carbon Dioxide 42.0 H Anion Gap 3 L BUN 14 Creatinine 1.17 Estim Creat Clear Calc 53.59 Est GFR (MDRD) Af Amer 78 Est GFR (MDRD) Non-Af 65 BUN/Creatinine Ratio 12.0 Glucose 163 H Calcium 8.3 L Iron TIBC Iron Saturation POC Glucose 245 H 150 H 08/22/17 08/22/17 08/22/17 11:16 16:02 21:31 Sodium Potassium Chloride Carbon Dioxide Anion Gap BUN Creatinine Estim Creat Clear Calc Est GFR (MDRD) Af Amer Est GFR (MDRD) Non-Af BUN/Creatinine Ratio Glucose Calcium Iron TIBC Iron Saturation POC Glucose 213 H 236 H 223 H 08/23/17 06:44 Sodium Potassium Chloride Carbon Dioxide Anion Gap BUN Creatinine Estim Creat Clear Calc Est GFR (MDRD) Af Amer Est GFR (MDRD) Non-Af BUN/Creatinine Ratio Glucose Calcium Iron TIBC Iron Saturation POC Glucose 169 H Clinical Impression(s) from Imaging Studies Chest X-Ray 08/20/17 15:08 IMPRESSION: There is moderate enlargement of the cardiac silhouette with diffuse edema and a small right effusion. There is bibasilar atelectasis. Electronically Signed: Antoinette Blank MD at 16:00 EDT Tel Direct: [phone], Service support , Chest CTA 08/20/17 15:41 IMPRESSION: There is no evidence of pulmonary embolus in the main pulmonary artery or right and left pulmonary arteries. There may be minimal residual chronic clot within a few branches of the right upper lobe. The remaining peripheral branches are suboptimally evaluated due to poor contrast bolus and breathing motion artifact. There is mild enlargement of the heart with mild edema. There is a moderate right pleural effusion and a small left pleural effusion. There is dense atelectasis in the right lower lobe and minimal atelectasis in the left lower lobe. There is herniation of stomach or colon in the midline epigastric region with a defect measuring 8 cm along the anterior upper abdominal wall. Electronically Signed: Antoinette Blank MD at 17:04 EDT Tel Direct: [phone], Service support , Medical Necessity - Tobacco Use Smoking Status: Former smoker Tobacco Use: Non-smoker Assessment/Plan Active and Suspected Problems (Last Reviewed 08/20/17 @ 18:24 by Mackenzie Wallace NP-C) Open wound, lower leg (Acute) RECOMMENDATIONS: 1. Continue scheduled aerosol regimen 2. Continue Eliquis. Given the patient's sedentary lifestyle, will plan for lifelong continuation unless complications arise. 3. Continue attempts at volume optimization with IV Lasix 4. The patient is a chronic CO2 retainer. Would recommend keeping oxygen saturations 88-92%. 5. Continue nightly BiPAP therapy with a pressure setting of 18/12 cm of water. 6. Physical therapy to work with patient 7. Strongly recommend intermediate placement at the time of discharge. The patient has poor insight and poor overall compliance with medical therapy. IMPRESSIONS: 1. Acute on chronic hypoxemic and hypercarbic respiratory failure Likely multifactorial in etiology with baseline COPD, morbid obesity, noncompliance with outpatient inhaler regimen, noncompliance with the use of noninvasive positive pressure ventilation and decompensated heart failure contributing. In addition, the patient is a known pulmonary embolism first diagnosed in March 2017, for which he reportedly only completed a one-month course of Eliquis. Agree with continued attempts at volume optimization with IV Lasix. Continue scheduled aerosol treatments. Maintain oxygen saturations 88- 92%. Continue BiPAP therapy at 18/12 cm of water with naps and nightly. 2. History of pulmonary embolism The patient was initially diagnosed with a PE in March 2017. He only completed approximately 1 month of treatment. Agree with resumption of Eliquis. In the absence of any bleeding complications, would recommend lifelong continuation of said medication, given the patient's exceedingly sedentary lifestyle. 3. Obstructive sleep apnea The patient is known to be noncompliant with the use of BiPAP therapy on an outpatient basis. His most recent compliance report only demonstrated 27% compliance over the last 30 days. BiPAP orders have been placed and the patient should utilize said therapy with naps and nightly. 4. Known COPD The patient has also been noncompliant with the use of his outpatient inhaler regimen. I spoke to him at length regarding the importance of this at his last office visit. Despite this, he readily admits that he ran out of his medications recently and did not attempt to refill them. Continue scheduled aerosol treatments as ordered. 5. Super morbid obesity/noncompliance with medical therapy/aortic valve replacement/hypertension/diabetes Complicates care, management, recovery and prognosis. Continue current insulin regimen. Recommend physical therapy evaluation. Encourage incentive spirometer use and mobilize patient as tolerated. This note was generated with [employer] dictation software. It may contain incorrect words, spelling, and punctuation that were not noted in checking the note before signing. Code Visit Inpatient E&M: 49323 Subs Hosp L2
--- NOTE | 2017-08-23 09:57 | PCM.PN.CARD ---
Subjectve: Patient was seen and evaluated and continues to improve. He continues to diurese significantly. Objective: Vital Signs Temp Pulse Resp BP Pulse Ox 98.5 F 76 16 147/58 H 93 08/23/17 09:10 08/23/17 09:10 08/23/17 09:10 08/23/17 09:10 08/23/17 09:10 Oxygen Flow Rate (L/min) 3.5 Oxygen Delivery Method Nasal Cannula Weight: 379 lb 10.176 oz Body Mass Index (BMI) 58.7 Intake and Output for Last 24 Hours 08/21/17 08/22/17 08/23/17 23:59 23:59 23:59 Intake Total 2399.1 / 2399.1 960 / 960 120 / 120 Output Total 4550 / 4550 4125 / 4125 950 / 950 Balance -2150.9 / -2150.9 -3165 / -3165 -830 / -830 General: Awake, Alert, Oriented x 3, Obese HEENT: PERRL, EOMI, Sclera Non Icteric Neck: Supple, Good ROM, No Lymph Node Enlargement Lungs: Clear to auscultation Cardiovascular: Regular Rhythm, Normal S1, Normal S2, No Murmurs, No Rubs, No Gallops Vascular: No Carotid Bruits, Normal Femoral Pulses, Normal Radial Pulses, Normal Dorsalis Pedal Pulse, Normal Posterior Tibial Pulses Abdomen: Bowel Sounds Present, Soft, Non Tender, No HSM, No Organomegaly Extremities: No Cyanosis, No Clubbing, No edema, Bilateral Edema +2 Neurological: No Focal Motor or Sensory Deficit Rhythm: EKG: ECHO: Stress Test: Cardiac Cath: PCI: CT Surgery: Holter monitor: EPS: PPM: CXR: Chest CT Scan: Medical Necessity - Tobacco Use Smoking Status: Former smoker Tobacco Use: Non-smoker Assessment/Plan 1. Congestive heart failure-chronic diastolic He appears to have congestive heart failure which appears to be chronic and diastolic. The plan will be to continue him on an EM inhibitor and diuretics as well as control his blood pressure and see how he does. I do not think that this is secondary to a valve dysfunction. His echo demonstated preserved left ventricular ejection fraction. We will continue with intravenous diuresis at the current rate. He has diuresed over 7 L of fluid thus far. We will give him another day at least of IV Lasix. 2. 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 Has preserved LV EF 3. Hypertension His blood pressure appears to be under fair control. I recommend continuing the losartan as well as the beta-maryam. He is on clonidine. We may be a chance to make some changes to the above depending on how he responds to this. 4. Abdominal aortic aneurysm-is post repair He is status post repair of the abdominal aortic aneurysm. At this time I do not have any indication to think that there is any problem with the above. However control of his blood pressure is paramount. 5. Obesity Patient is significantly obese and he has been counseled about maintaining a more appropriate weight. 6. History of pulmonary embolism. He is at high risk for recurrent pulmonary embolism and I would recommend that we start him back on his Eliquis 5 mg twice a day. Intravenous heparin may pose a risk and may mask any retroperitoneal bleed. Thank you for allowing me to participate in the care of your patient. Please don't hesitate to call if any issues arise
[2017-08-23] MEDS: Losartan Potassium 100 MG Tablet PO (11:14)
[2017-08-23] MEDS: Spironolactone 25 MG Tablet PO ×2 (11:14→22:03)
[2017-08-23] MEDS: APIXABAN 5 MG TABLET PO ×2 (11:14→22:03)
[2017-08-23] MEDS: Metoprolol Tartrate 50 MG Tablet PO ×2 (11:15→22:04)
[2017-08-23] MEDS: Magnesium Oxide 400 MG Tablet 800 MG PO ×2 (11:16→22:04)
[2017-08-23] MEDS: Finasteride 5 MG Tablet PO (11:16)
[2017-08-23] MEDS: Senna/Docusate Sodium 1 Tablet 2 TABLET PO ×2 (11:16→22:04)
[2017-08-23] MEDS: Famotidine 20 MG Tablet PO ×2 (11:16→22:04)
[2017-08-23] MEDS: Sertraline 50 MG Tablet 100 MG PO (11:17)
[2017-08-23 11:36] LABS: Bedside Glucose 215 mg/dL (70-110)
--- NOTE | 2017-08-23 12:27 | PN_ITS ---
Patient Problems: Active and Suspected Problems (Last Reviewed 08/20/17 @ 18:24 by YVETTE Pimentel) Open wound, lower leg (Acute) Subjective: Patient was seen and examined today, he is dozing off and he has no complaints of any shortness of breath or chest pain. Patient continues to diurese well on IV Lasix, he is now on lower flow nasal cannula O2. I have reviewed cardiology' s note, they prefer to keep the patient on IV Lasix for another 24 hours to see if he can continues to diurese. - Physical Exam General: Alert, Oriented x3, Cooperative, No apparent distress, Well developed HEENT: Atraumatic, PERRLA, EOMI, Normocephalic Oral: Moist Mucosa Neck: Supple, No JVD, No Nuchal Rigidity, Trachea Midline, Thyroid Normal Size and Texture Lungs: Clear to auscultation, Normal air movement, No rhonchi, No wheeze, No rales Cardiovascular: Regular rate, Regular Rhythm, Normal S1, Normal S2, No murmurs, No Ectopic Activity Abdomen: Bowel Sounds Present, Soft, Non Tender, Non-Distended, Obese Extremities: No clubbing, No cyanosis, Capillary Refill Less than 3 Seconds, - - Lower legs were not examined due to compressive Juan wraps, wound care nurse will reassess patient tomorrow Neurological: Cranial nerves II-XII grossly intact, Neuro grossly intact, Sensory exam intact to light touch and pain, Coordination normal Psych/Mental Status: Normal Affect, Appropriate, Alert and oriented to time, place, person, mood and affect Vital Signs Temp Pulse Resp BP Pulse Ox 98.5 F 71 16 147/58 H 93 08/23/17 09:10 08/23/17 11:15 08/23/17 09:10 08/23/17 09:10 08/23/17 09:10 Oxygen Flow Rate (L/min) 3 Oxygen Delivery Method Nasal Cannula Weight: 172.2 kg Body Mass Index (BMI) 58.7 Intake and Output for Last 24 Hours 08/21/17 08/22/17 08/23/17 23:59 23:59 23:59 Intake Total 2399.1 / 2399.1 960 / 960 120 / 120 Output Total 4550 / 4550 4125 / 4125 950 / 950 Balance -2150.9 / -2150.9 -3165 / -3165 -830 / -830 POC Glucose 08/23/17 08/23/17 08/22/17 11:25 06:44 21:31 POC Glucose 215 H 169 H 223 H 08/22/17 16:02 POC Glucose 236 H Medical Necessity - Tobacco Use Smoking Status: Former smoker Tobacco Use: Non-smoker Assessment/Plan Active and Suspected Problems (Last Reviewed 08/20/17 @ 18:24 by Mackenzie Wallace, ERIC-C) Open wound, lower leg (Acute) #1 acute on chronic diastolic congestive heart failure-continue Lasix IV, cardiology is participating with his care #2 anasarca-continue IV Lasix, patient continues to need a Andrews catheter to monitor accurate urine output. 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 The wound care nurse is monitoring his lower legs #13 generalized debility due to super morbid obesity and multiple medical problems-PT and OT are seeing the patient, he will need temporary placement in an ECF Code Visit Inpatient E&M: 67076 Subs Hosp L2
[2017-08-23 17:00] LABS: Bedside Glucose 238 mg/dL (70-110)
[2017-08-23] MEDS: Doxazosin 4 MG Tablet 8 MG PO (22:03)
[2017-08-23] MEDS: Atorvastatin Calcium 40 MG Tablet PO (22:04)
[2017-08-23 22:26] LABS: Bedside Glucose 169 mg/dL (70-110)
[2017-08-24] VITALS (12 sets, daily range): BP systolic 121–134; BP diastolic 48–58; PULSE 59–74; RESP 16–18; TEMP 36.6–37.2; O2SAT 88–96
[2017-08-24] MEDS: Furosemide 100 MG/10 ML Vial 60 MG IV (05:20)
[2017-08-24 06:37] LABS: Anion Gap 2 (5-15); BUN 22 mg/dL (7-18); BUN/Creat Ratio 15.1 RATIO (10-20); Calcium,Total 8.6 mg/dL (8.5-10.1); Chloride 91 mmol/L (98-107); Creatinine, Serum 1.46 mg/dL (0.70-1.30); EST Glomerular Filtration Rate 50 mL/min (>60); Est Glom Filt Rate - Afr Amer 61 mL/min (>60); Estimated Creatinine Clearance 42.95 ml/min; Glucose 151 mg/dL (74-106); Magnesium 2.4 mg/dL (1.6-2.6); Phosphorus 3.3 mg/dL (2.5-4.9); Potassium 4.1 mmol/L (3.5-5.1); Sodium Level 137 mmol/L (136-145)
[2017-08-24 07:01] LABS: Bedside Glucose 161 mg/dL (70-110)
--- NOTE | 2017-08-24 07:02 | PN.CARD_ITS ---
Subjectve: Patient seen and evaluated. Status quo Objective: Vital Signs Temp Pulse Resp BP Pulse Ox 98.1 F 64 18 134/58 H 88 08/24/17 02:30 08/24/17 03:07 08/24/17 02:30 08/24/17 02:30 08/24/17 05:42 Oxygen Flow Rate (L/min) 3 Oxygen Delivery Method Nasal Cannula Weight: 375 lb 10.683 oz Body Mass Index (BMI) 58.7 Intake and Output for Last 24 Hours 08/22/17 08/23/17 08/24/17 23:59 23:59 23:59 Intake Total 960 / 960 1016 / 1016 120 / 120 Output Total 4125 / 4125 3950 / 3950 450 / 450 Balance -3165 / -3165 -2934 / -2934 -330 / -330 General: Awake, Alert, Oriented x 3, Obese HEENT: PERRL, EOMI, Sclera Non Icteric Neck: Supple, Good ROM, No Lymph Node Enlargement Lungs: Diminished Boyd Bases Cardiovascular: Regular Rhythm, Normal S1, Normal S2, No Murmurs, No Rubs, No Gallops Vascular: No Carotid Bruits, Normal Femoral Pulses, Normal Radial Pulses, Normal Dorsalis Pedal Pulse, Normal Posterior Tibial Pulses Abdomen: Bowel Sounds Present, Soft, Non Tender, No HSM, No Organomegaly Extremities: No Cyanosis, No Clubbing, No edema Neurological: No Focal Motor or Sensory Deficit 08/24/17 05:55: Sodium 137, Potassium 4.1, Chloride 91 L, Carbon Dioxide 44.0 H , Anion Gap 2 L, BUN 22 H, Creatinine 1.46 H, Est GFR (MDRD) Af Amer 61, Est GFR (MDRD) Non-Af 50 L, BUN/Creatinine Ratio 15.1, Glucose 151 H, Calcium 8.6, Phosphorus 3.3, Magnesium 2.4 Rhythm: EKG: ECHO: Stress Test: Cardiac Cath: PCI: CT Surgery: Holter monitor: EPS: PPM: CXR: Chest CT Scan: Medical Necessity - Tobacco Use Smoking Status: Former smoker Tobacco Use: Non-smoker Assessment/Plan 1. Congestive heart failure-chronic diastolic He appears to have congestive heart failure which appears to be chronic and diastolic. The plan will be to continue him on an EM inhibitor and diuretics as well as control his blood pressure and see how he does. I do not think that this is secondary to a valve dysfunction. His echo demonstated preserved left ventricular ejection fraction. We will discontinue with intravenous diuresis transition him to oral Lasix.. He has diuresed over 8 L of fluid thus far. 2. 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 Has preserved LV EF 3. Hypertension His blood pressure appears to be under fair control. I recommend continuing the losartan as well as the beta-maryam. He is on clonidine. We may be a chance to make some changes to the above depending on how he responds to this. 4. Abdominal aortic aneurysm-is post repair He is status post repair of the abdominal aortic aneurysm. At this time I do not have any indication to think that there is any problem with the above. However control of his blood pressure is paramount. 5. Obesity Patient is significantly obese and he has been counseled about maintaining a more appropriate weight. 6. History of pulmonary embolism. He is at high risk for recurrent pulmonary embolism and I would recommend that we start him back on his Eliquis 5 mg twice a day. Thank you for allowing me to participate in the care of your patient. Please don't hesitate to call if any issues arise
[2017-08-24] MEDS: Ipratropium/Albuterol Sulfate 3 ML AMPUL.NEB INHALATION ×3 (07:18→15:15)
[2017-08-24] MEDS: Budesonide Respules 0.5 MG/2 ML AMPUL.NEB. INHALATION (07:18)
[2017-08-24] MEDS: Allopurinol 300 MG Tablet PO (08:15)
[2017-08-24] MEDS: Multivitamins,Therapeutic Tablet 1 TABLET PO (08:15)
[2017-08-24] MEDS: Magnesium Hydroxide 30 ML UDC PO (08:15)
[2017-08-24] MEDS: Ferrous Sulfate 325 MG Tablet PO ×2 (08:15→17:56)
[2017-08-24] MEDS: Spironolactone 25 MG Tablet PO (09:32)
[2017-08-24] MEDS: Finasteride 5 MG Tablet PO (09:32)
[2017-08-24] MEDS: Losartan Potassium 100 MG Tablet PO (09:32)
[2017-08-24] MEDS: Sertraline 50 MG Tablet 100 MG PO (09:32)
[2017-08-24] MEDS: Senna/Docusate Sodium 1 Tablet 2 TABLET PO (09:32)
[2017-08-24] MEDS: APIXABAN 5 MG TABLET PO (09:33)
[2017-08-24] MEDS: Metoprolol Tartrate 50 MG Tablet PO (09:33)
[2017-08-24] MEDS: Magnesium Oxide 400 MG Tablet 800 MG PO (09:35)
[2017-08-24] MEDS: Famotidine 20 MG Tablet PO (09:35)
--- NOTE | 2017-08-24 10:35 | PN_ITS ---
Patient Problems: Active and Suspected Problems (Last Reviewed 08/20/17 @ 18:24 by YVETTE Pimentel) Open wound, lower leg (Acute) Acute on chronic respiratory failure with hypoxia and hypercapnia (Acute) CHF exacerbation (Acute) Subjective: The patient was seen and examined. He is sitting up in the chair with legs elevated, no acute complaints. States he is always short of breath but this has somewhat improved since he was admitted. He remains afebrile and hemodynamically stable. He is maintaining appropriate oxygen saturations on 3 L. Patient states he is potentially going to the transitional care unit today. Objective: Recent lab data reviewed, there is no culture data to review. Echocardiogram showing moderate concentric LVH, estimated EF of 60%. Review his pulmonary function tests April 2016 showed a moderately severe obstructive ventilatory defect. She also has severe MIKO diagnosed in December 2015. He did undergo a titration study which recommended BiPAP therapy with a pressure setting of 18/ 12 cm of water. Chest CTA on 08/20/17 showed no evidence of PE in the main pulmonary artery or right and left pulmonary arteries. Questionable minimal residual chronic clot within a few branches of the right upper lobe. This study was overall suboptimal. Dense atelectasis right lower lobe, minimal in the left lower lobe. Herniation to the midline epigastric region with the defect measuring 8 cm along the anterior upper abdominal wall with herniation of the stomach or colon. - Physical Exam General: Alert, Oriented x3, Cooperative, No apparent distress, - - No conversational dyspnea HEENT: Atraumatic, Normocephalic, - - Large neck circumference Oral: Moist Mucosa, No Gingival or Mucosal Lesions/ Ulcerations Neck: Supple, No Nodes, Trachea Midline Lungs: No wheeze, No rales, Diminished, Rhonchi - Minimal, somewhat clears with cough, - - Poor respiratory effort Cardiovascular: Regular rate, Regular Rhythm, Normal S1, Normal S2, No murmurs, No rub noted, No Gallop Abdomen: Bowel Sounds Present, Soft, Non Tender, Non-Distended, Obese, Hernia Extremities: No clubbing, No cyanosis, No edema, Capillary Refill Less than 3 Seconds Skin: - - Lower extremity venous stasis changes/dermatitis Musculoskeletal: No Tenderness to Palpation of Joints or Extremities Lymphatic: - - No adenopathy Neurological: Cranial nerves II-XII grossly intact, Neuro grossly intact, Motor Exam 5/5 strength throughout Psych/Mental Status: Alert and oriented to time, place, person, mood and affect Vital Signs Temp Pulse Resp BP Pulse Ox 97.9 F 72 18 126/58 H 96 08/24/17 08:30 08/24/17 09:33 08/24/17 08:30 08/24/17 08:30 08/24/17 08:30 Oxygen Flow Rate (L/min) 3.5 Oxygen Delivery Method Nasal Cannula Weight: 375 lb 10.683 oz Body Mass Index (BMI) 58.7 Intake and Output for Last 24 Hours 08/22/17 08/23/17 08/24/17 23:59 23:59 23:59 Intake Total 960 / 960 1016 / 1016 120 / 120 Output Total 4125 / 4125 3950 / 3950 450 / 450 Balance -3165 / -3165 -2934 / -2934 -330 / -330 Laboratory Tests Past 24 Hrs 08/24/17 05:55 Sodium 137 Potassium 4.1 Chloride 91 L Carbon Dioxide 44.0 H Anion Gap 2 L BUN 22 H Creatinine 1.46 H Estim Creat Clear Calc 42.95 Est GFR (MDRD) Af Amer 61 Est GFR (MDRD) Non-Af 50 L BUN/Creatinine Ratio 15.1 Glucose 151 H Calcium 8.6 Phosphorus 3.3 Magnesium 2.4 POC Glucose 08/24/17 08/23/17 08/23/17 06:49 22:08 16:29 POC Glucose 161 H 169 H 238 H 08/23/17 11:25 POC Glucose 215 H Medical Necessity - Tobacco Use Smoking Status: Former smoker Tobacco Use: Non-smoker Assessment/Plan Active and Suspected Problems (Last Reviewed 08/20/17 @ 18:24 by Mackenzie Wallace NP-C) Open wound, lower leg (Acute) Acute on chronic respiratory failure with hypoxia and hypercapnia (Acute) CHF exacerbation (Acute) RECOMMENDATIONS: 1. Continue scheduled aerosol regimen 2. Continue Eliquis. Given the patient's sedentary lifestyle, will plan for lifelong continuation unless complications arise. 3. Transition to oral Lasix today, cardiology following 4. Keep oxygen saturations 88-92% to prevent paradoxical CO2 retention. 5. Continue nightly BiPAP therapy with a pressure setting of 18/12 cm of water. 6. Continue PT/OT 7. OK to discharge today from pulmonary standpoint. Strongly recommend SNF at the time of discharge. The patient has poor insight and poor overall compliance with medical therapy. IMPRESSIONS: 1. Acute on chronic hypoxemic and hypercarbic respiratory failure Likely multifactorial in etiology with baseline COPD, morbid obesity, noncompliance with outpatient inhaler regimen, noncompliance with the use of noninvasive positive pressure ventilation and decompensated heart failure contributing. In addition, the patient is a known pulmonary embolism first diagnosed in March 2017, for which he reportedly only completed a one-month course of Eliquis. Agree with continued attempts at volume optimization with IV Lasix. Continue scheduled aerosol treatments. Maintain oxygen saturations 88- 92%. Continue BiPAP therapy at 18/12 cm of water with naps and nightly. 2. History of pulmonary embolism The patient was initially diagnosed with a PE in March 2017. He only completed approximately 1 month of treatment. Agree with resumption of Eliquis. In the absence of any bleeding complications, would recommend lifelong continuation of said medication, given the patient's exceedingly sedentary lifestyle. 3. Obstructive sleep apnea The patient is known to be noncompliant with the use of BiPAP therapy on an outpatient basis. His most recent compliance report only demonstrated 27% compliance over the last 30 days. BiPAP orders have been placed and the patient should utilize said therapy with naps and nightly. 4. COPD The patient has also been noncompliant with the use of his outpatient inhaler regimen. Dr. Clay has spoken with the patient regarding the importance of this at his last office visit. Despite this, he readily admits that he ran out of his medications recently and did not attempt to refill them. Continue scheduled aerosol treatments as ordered. Importance of compliance with medications and medical regimen once again reinforced. 5. Super morbid obesity/noncompliance with medical therapy/aortic valve replacement/hypertension/diabetes Complicates care, management, recovery and prognosis. Continue current insulin regimen. Continue physical therapy. Encourage incentive spirometer use and mobilize patient as tolerated. This note was generated with [employer] dictation software. It may contain incorrect words, spelling, and punctuation that were not noted in checking the note before signing.
--- NOTE | 2017-08-24 12:58 | PCM.TXEXTCAR ---
- Diet 08/20/17 16:11 Diet: Cardiac: Calorie-Controlled Food consistency:: Regular Liquid Consistency:: Regular/Thin How many daily calories?: 1800 calorie - Wound(s) BL calves; outer aspect Wound Type: Stasis Ulcer left lateral lower leg Wound Type: cluster of stasis ulcers Dressing Change: hydrogel with Adaptic right lateral lower leg Wound Type: cluster of stasis ulcers Dressing Change: hydrogel with Adaptic - Therapies Physical Therapy: Eval and Treat Occupational Therapy: Eval and Treat Speech Therapy: Eval and Treat - Allergies/Procedures Done in Hospital Allergies/Adverse Reactions: Allergies naphazoline HCl [From Naphcon] Allergy (Severe, Verified 08/20/17 15:18) affected his breathing AFFECTED HIS BREATHING amlodipine besylate [From Norvasc] Allergy (Verified 08/20/17 15:18) Other dextromethorphan Allergy (Verified 08/20/17 15:18) Other levofloxacin [From Levaquin] Adverse Reaction (Mild, Verified 08/20/17 15:18) made me hyperactive made me hyperactive - Type of Care/Length of Stay Estimated LOS: Convalescent Care Less Than 30 days Type of Care Needed: Skilled Rehab Potential: Fair Prognosis: Fair - Additional Orders/Day of Discharge H&P will serve as current which was dated: 08/20/17 Day of Discharge: 08/24/17 - Dietary and Speech Recommendations Dietitian Recommendations/Changes: Suggest diet change to 2000 Calorie, Carbohydrate controlled, Cardiac, low sodium with 1500 ml fluid restriction. Suggest 1 pkt Rafael BID for wound healing - please order from pharmacy. - Follow Up Care Primary Care Physician: Jack Verdugo MD [Primary Care Provider] - Within 1 Week
--- NOTE | 2017-08-24 13:01 | DS.PCM_ITS ---
Discharge Date and Diagnosis - Problem List Patient Problems: Active and Suspected Problems (Last Updated 08/24/17 @ 10:41 by Shannon Gomez NP-C) Shortness of breath (Acute) Acute on chronic diastolic heart failure (Acute) Bilateral lower leg cellulitis (Acute) Depression (Acute) Date of Admission: 08/20/17 Date of Discharge: 08/24/17 - Primary Discharge Diagnosis Active and Suspected Problems (Last Updated 08/24/17 @ 10:41 by VALERIE SilverC) Open wound, lower leg (Acute) Acute on chronic respiratory failure with hypoxia and hypercapnia (Acute) CHF exacerbation (Acute) - Secondary Discharge Diagnosis Chronic Problems (Last Updated 08/24/17 @ 10:41 by Shannon Gomez NP-C) CKD (chronic kidney disease), stage II (Chronic) Wheezing (Chronic) MIKO (obstructive sleep apnea) (Chronic) HTN (hypertension) (Chronic) BPH (benign prostatic hypertrophy) (Chronic) Tinea unguium (Chronic) Diabetes mellitus with neuropathy (Chronic) Leg swelling (Chronic) Lymphedema of leg (Chronic) Multiple excoriations (Chronic) Asthma (Chronic) COPD (chronic obstructive pulmonary disease) (Chronic) Arthritis (Chronic) Immobility (Chronic) 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 Patient was educated on the signs and symptoms of bleeding as such as hemoptysis, hematemesis, hematochezia or melena stools. Patient has been advised to watch for these symptoms contact the office if they present. Follow-up with Dr. Clay in approximately 8 weeks as previously scheduled. Adynamic ileus (Chronic) Ventral hernia (Chronic) Hypoglycemia (Chronic) Peripheral neuropathy (Chronic) Chronic anemia (Chronic) Benign essential hypertension (Chronic) Benign prostatic hypertrophy without urinary obstruction (Chronic) CKD (chronic kidney disease), stage II (Chronic) CHF (congestive heart failure) (Chronic) CAD (coronary artery disease) (Chronic) Type II diabetes mellitus (Chronic) GERD (gastroesophageal reflux disease) (Chronic) Hypercholesteremia (Chronic) Morbid obesity (Chronic) Pulmonary hypertension (Chronic) H/O aortic valve replacement (Chronic) S/P AAA repair (Chronic) Venous insufficiency (Chronic) Tinea unguium (Chronic) Hospital Course and Treatment Consultations 08/20/17 17:08 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 He was placed on BiPAP which was ultimately changed to nightly BiPAP. Her Improved with IV Lasix and was then changed to oral medication. 1 acute on chronic diastolic congestive heart failure; was treated with intravenous Lasix, he is now compensated and changed to p.o. Lasix at 80 mg twice daily. 2 anasarca; improved with diuretic therapy. 3 type 2 diabetes; currently receiving Lantus 4 hypertension; controlled 5 chronic obstructive pulmonary disease; continue on bronchodilators and supplemental oxygen. 6 chronic hypoxic respiratory failure; supplemental oxygen per nasal cannula. 7 iron deficiency anemia; the patient was given intravenous iron. 8 chronic kidney disease stage II secondary to type 2 diabetes; renal parameters at the time of discharge. 9 MIKO; HS BiPAP 10 super morbid obesity; weight loss recommended that unlikely to happen at this time. 11. chronic stasis dermatitis of the lower legs with excoriation of both lower legs, no evidence of cellulitis at this time. 13 significant debility; PT OT longterm placement. On exam at the time of discharge; vital signs were stable. He was alert and oriented to time place and person. He did not appear to be any form of distress. S1 and S2 heard no murmur or gallop Lung exam was clear to auscultation with no adventitious sounds. Abdomen was soft nontender with normal bowel sounds. extremity exam ; lower extremity stasis dermatitis Neurologic exam was grossly intact. Home Medications: Medications to take at Discharge Allopurinol [Zyloprim] 300 mg PO DAILY 03/30/17 Atorvastatin Calcium [Lipitor] 40 mg PO QHS 03/30/17 Clonidine Patch [Catapres-Tts3] 0.3 mg TOPICAL FR 03/30/17 Clopidogrel Bisulfate [Plavix] 75 mg PO DAILY 03/30/17 Ferrous Sulfate 325 mg PO DAILY@0800 03/30/17 Finasteride [Proscar] 5 mg PO DAILY 03/30/17 Glimepiride [Amaryl] 8 mg PO BREAKFAST 03/30/17 Hydroxyzine HCl 25 mg PO TID PRN 03/30/17 Insulin Glargine [Lantus SoloStar Pen] 30 units PO BID 03/30/17 Lansoprazole 15 mg PO DAILY 03/30/17 Losartan Potassium 100 mg PO DAILY 03/30/17 Magnesium Oxide [Mag-Ox 400] 800 mg PO BID 03/30/17 Metformin HCl [Glucophage] 500 mg PO TID 03/30/17 Metoprolol Tartrate [Lopressor (beta maryam)] 50 mg PO BID 03/30/17 Multivitamins,Therapeutic [Multivitamin] 1 tab PO DAILY@0800 03/30/17 Sertraline HCl [Zoloft] 50 mg PO QHS 03/30/17 Spironolactone 25 mg PO BID 03/30/17 Terazosin HCl [Hytrin] 10 mg PO QHS 03/30/17 albuterol sulfate HFA 90 mcg/actuation aerosol inhaler 2 puff PO Q6H PRN PRN # 18 g 08/05/17 Albuterol Aerosols [Ventolin Aerosols] 2.5 mg INHALATION Q4H PRN 08/20/17 Fluticasone/Salmeterol [Advair 500-50 Diskus] 2 puff INHALATION Q12H 08/20/17 Furosemide [Lasix] 80 mg PO BID 08/20/17 Sertraline HCl [Zoloft] 100 mg PO DAILY 08/20/17 Apixaban [Eliquis] 5 mg PO BID 08/24/17 Budesonide Aerosol [Pulmicort Respules] 0.5 mg INHALATION BID.RT 08/24/17 Oxycodone [Oxyir] 5 mg PO Q4H PRN PRN #10 tab 08/24/17 Psyllium [Metamucil] 1 packet PO DAILY PRN PRN packet 08/24/17 Senna/Docusate Sodium [Senokot-S] 2 tablet PO BID 08/24/17 Following Prescrptions Were Given to Patient: Oxycodone [Oxyir] 5 mg PO Q4H PRN PRN #10 tab PRN Reason: Moderate Pain (pain scale 4-5) Primary Care Physician: Jack Verdugo MD [Primary Care Provider] - Within 1 Week Medical Necessity - Tobacco Use Smoking Status: Former smoker Tobacco Use: Non-smoker Meaningful Use Info Meaningful Use Diagnoses (Choose all that apply): None applicable Code Visit Inpatient E&M: 84537 Disch Hosp
[2017-08-24 13:30] LABS: Bedside Glucose 199 mg/dL (70-110)
--- NOTE | 2017-08-24 13:30 | CASEMGMT ---
Patient is ready for d/c to TCU. BISI spoke with patient and asked if he would like SW to call his letting her know he is going to TCU today. He said that would be a good idea. BISI called patient's and let her know he is going to TCU today. Plan: d/c to [facility] TCU under skilled level of care Brooke WILLOUGHBY
[2017-08-24 16:40] LABS: Bedside Glucose 173 mg/dL (70-110)
== END 2017-08-24 18:26 | disposition skilled nursing facility (03) | DRG 291 ==
LOC: ED 15:38 → PCU 16:35
PROVIDERS: Internal Medicine; Internal Medicine Critical Care Medicine; Admitting Provider Family Medicine; Emergency Provider Emergency Medicine; Family Provider Internal Medicine; PCP Internal Medicine; Visit Provider Internal Medicine
DX: I13.0 Hypertensive heart and chronic kidney disease with heart failure and stage 1 through stage 4 chronic kidney disease, or unspecified chronic kidney disease (principal); I50.33 Acute on chronic diastolic (congestive) heart failure; J96.21 Acute and chronic respiratory failure with hypoxia; E11.22 Type 2 diabetes mellitus with diabetic chronic kidney disease; E11.42 Type 2 diabetes mellitus with diabetic polyneuropathy; E66.01 Morbid (severe) obesity due to excess calories; I27.20 Pulmonary hypertension, unspecified; J96.22 Acute and chronic respiratory failure with hypercapnia; I27.82 Chronic pulmonary embolism; L03.116 Cellulitis of left lower limb; L03.115 Cellulitis of right lower limb; Z68.43 Body mass index [BMI] 50.0-59.9, adult; N18.2 Chronic kidney disease, stage 2 (mild); D50.9 Iron deficiency anemia, unspecified; J44.9 Chronic obstructive pulmonary disease, unspecified; I25.10 Atherosclerotic heart disease of native coronary artery without angina pectoris; E78.00 Pure hypercholesterolemia, unspecified; I87.2 Venous insufficiency (chronic) (peripheral); S80.812A Abrasion, left lower leg, initial encounter; S80.811A Abrasion, right lower leg, initial encounter; X58.XXXA Exposure to other specified factors, initial encounter; Y93.9 Activity, unspecified; Y92.9 Unspecified place or not applicable; Y99.9 Unspecified external cause status; M19.90 Unspecified osteoarthritis, unspecified site; N40.0 Benign prostatic hyperplasia without lower urinary tract symptoms; G47.33 Obstructive sleep apnea (adult) (pediatric); K21.9 Gastro-esophageal reflux disease without esophagitis; F32.9 Major depressive disorder, single episode, unspecified; F41.9 Anxiety disorder, unspecified; Z79.01 Long term (current) use of anticoagulants; Z79.4 Long term (current) use of insulin; Z79.02 Long term (current) use of antithrombotics/antiplatelets; Z79.899 Other long term (current) drug therapy; Z86.73 Personal history of transient ischemic attack (TIA), and cerebral infarction without residual deficits; Z87.891 Personal history of nicotine dependence; Z95.2 Presence of prosthetic heart valve; Z91.19 Patient's noncompliance with other medical treatment and regimen
CPT/HCPCS: 36415; 51702; 71045; 71275; 80048; 80061; 82962; 83540; 83550; 83735; 83880; 84100; 84443; 84484; 85025; 85027; 85610; 85730; 93005; 93306; 94640; 97110; 97162; 97166; 97530; 97802; 99251; 99284; J1756; J7030; J7040; Q9957; Q9967; A4216; C8929; G0463; J1940

== ENCOUNTER 2017-08-24 18:30 | Inpatient (IN) | payer MEDICARE, BC, SELFPAY ==
[2017-08-24 18:49] VITALS: BP 133/68; PULSE 73; RESP 24; TEMP 36.2; BMI 57.3
--- NOTE | 2017-08-24 19:05 | NURSING ---
Pt arrived via bed at 1830 from [facility]
[2017-08-24 19:55] VITALS: BMI 57.3
--- NOTE | 2017-08-24 20:32 | NURSING ---
Dr. Barr had previously given orders for 2 L nulytely. Patient is on a 1500 ML fluid restriction. Patient short of breath with activity. Lung sounds with expiratory wheezes throughout. Dr. Barr notified of this. Orders given to given patient a bottle of mgcitrate instead of the nulytely.
[2017-08-24 21:00] LABS: Bedside Glucose 224 mg/dL (70-110)
[2017-08-24] MEDS: Magnesium Citrate 300 ML PO (21:23)
[2017-08-24] MEDS: Furosemide 80 MG Tablet PO (21:23)
--- NOTE | 2017-08-24 21:23 | PCM.HP.STD ---
Problem List (1) Shortness of breath Status: Acute (2) Acute on chronic diastolic heart failure Status: Acute (3) Bilateral lower leg cellulitis Status: Acute (4) Venous stasis dermatitis Status: Chronic (5) Anemia Status: Chronic (6) Osteoarthritis Status: Chronic (7) Coronary artery disease Status: Chronic (8) Chronic kidney disease Status: Chronic (9) Diabetes mellitus Status: Chronic (10) Lymphedema Status: Chronic (11) Hyperlipidemia Status: Chronic (12) Super obesity Status: Chronic (13) Sleep apnea Status: Chronic (14) Pulmonary embolism Status: Chronic (15) Gout Status: Chronic (16) Depression Status: Acute (17) HTN (hypertension) Status: Chronic Qualifiers: (18) BPH (benign prostatic hypertrophy) Status: Chronic Qualifiers: (19) Asthma Status: Chronic Qualifiers: (20) COPD (chronic obstructive pulmonary disease) Status: Chronic Qualifiers: (21) GERD (gastroesophageal reflux disease) Status: Chronic Qualifiers: (22) Pulmonary hypertension Status: Chronic History of Present Illness Date of Admission: 08/24/17 Chief Complaint: Here for rehabilitation, strengthening, prior to discharge home with spouse. The patient is a 72 year old Male with below past medical history presented to [facility] Emergency Department 08/20/2017 with shortness of breath. 08/20/2017 Chest X-ray moderate enlargement cardiac silhouette, diffuse edema, small right pleural effusion. Shortness of breath x 4 days, worsening at home. Increased leg swelling. Dyspnea on exertion, mild cough. Sent to Emergency Department from Dr. Clay's office. Albuterol aerosol given. EKG sinus rhythm, heart rate 93. Hemoglobin 9.8, CO2 37, Glucose 213, Troponin negative. BNP 181.5. Lasix IV, Off Eliquis, heparin drip started. Zosyn, Vancomycin IV for bilateral lower extremity cellulitis. 08/20/2017 CTA chest right upper lobe chronic pulmonary embolism. Mild cardiomegaly, mild edema. Moderate right pleural effusion, small left pleural effusion. Right lower lobe atelectasis. Herniation of stomach, colon. 08/20/2017 Admit to Hospital. IV Lasix for congestive heart failure. Heparin drop for pulmonary embolism. IV Vancomycin, Zosyn, for bilateral lower extremity cellulitis. 08/20/2017 Dr. Raymundo recommended ACEI, diuretics. Eliquis for pulmonary embolism. 08/21/2017 Echo LV systolic function normal. EF 60%. 08/21/2017 Dr. Clay recommended aerosol, Eliquis, IV Lasix, BiPAP. 08/21/2017 Continue IV Lasix, stop Zosyn, legs are venous stasis dermatitis rather than cellulitis. 08/22/2017 Diuresing well on IV Lasix. Venofer IV for iron replacement. 08/24/2017 Admit to TCU for rehabilitation, strengthening, prior to discharge home with spouse. Past Medical History Past Medical History (Chronic Problems): Chronic Problems (Last Updated 08/24/17 @ 10:41 by Shannon Gomez, EDGING MACHINE CATCHER-C) Venous stasis dermatitis (Chronic) Anemia (Chronic) Osteoarthritis (Chronic) Coronary artery disease (Chronic) Chronic kidney disease (Chronic) Diabetes mellitus (Chronic) Lymphedema (Chronic) Hyperlipidemia (Chronic) Super obesity (Chronic) Sleep apnea (Chronic) Pulmonary embolism (Chronic) Gout (Chronic) CKD (chronic kidney disease), stage II (Chronic) Wheezing (Chronic) MIKO (obstructive sleep apnea) (Chronic) HTN (hypertension) (Chronic) BPH (benign prostatic hypertrophy) (Chronic) Tinea unguium (Chronic) Diabetes mellitus with neuropathy (Chronic) Leg swelling (Chronic) Lymphedema of leg (Chronic) Multiple excoriations (Chronic) Asthma (Chronic) COPD (chronic obstructive pulmonary disease) (Chronic) Arthritis (Chronic) Immobility (Chronic) 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 Patient was educated on the signs and symptoms of bleeding as such as hemoptysis, hematemesis, hematochezia or melena stools. Patient has been advised to watch for these symptoms contact the office if they present. Follow-up with Dr. Clay in approximately 8 weeks as previously scheduled. Adynamic ileus (Chronic) Ventral hernia (Chronic) Hypoglycemia (Chronic) Peripheral neuropathy (Chronic) Chronic anemia (Chronic) Benign essential hypertension (Chronic) Benign prostatic hypertrophy without urinary obstruction (Chronic) CKD (chronic kidney disease), stage II (Chronic) CHF (congestive heart failure) (Chronic) CAD (coronary artery disease) (Chronic) Type II diabetes mellitus (Chronic) GERD (gastroesophageal reflux disease) (Chronic) Hypercholesteremia (Chronic) Morbid obesity (Chronic) Pulmonary hypertension (Chronic) H/O aortic valve replacement (Chronic) S/P AAA repair (Chronic) Venous insufficiency (Chronic) Tinea unguium (Chronic) Allergies naphazoline HCl [From Naphcon] Allergy (Severe, Verified 08/20/17 15:18) affected his breathing AFFECTED HIS BREATHING amlodipine besylate [From Norvasc] Allergy (Verified 08/20/17 15:18) Other dextromethorphan Allergy (Verified 08/20/17 15:18) Other levofloxacin [From Levaquin] Adverse Reaction (Mild, Verified 08/20/17 15:18) made me hyperactive made me hyperactive Home Medications: Ambulatory Orders Medication Instructions Recorded Allopurinol [Zyloprim] 300 mg PO DAILY 03/30/17 Atorvastatin Calcium [Lipitor] 40 mg PO QHS 03/30/17 Clonidine Patch [Catapres-Tts3] 0.3 mg TOPICAL FR 03/30/17 Clopidogrel Bisulfate [Plavix] 75 mg PO DAILY 03/30/17 Ferrous Sulfate 325 mg PO DAILY@0800 03/30/17 Finasteride [Proscar] 5 mg PO DAILY 03/30/17 Glimepiride [Amaryl] 8 mg PO BREAKFAST 03/30/17 Hydroxyzine HCl 25 mg PO TID PRN 03/30/17 Insulin Glargine [Lantus SoloStar 30 units PO BID 03/30/17 Pen] Lansoprazole 15 mg PO DAILY 03/30/17 Losartan Potassium 100 mg PO DAILY 03/30/17 Magnesium Oxide [Mag-Ox 400] 800 mg PO BID 03/30/17 Metformin HCl [Glucophage] 500 mg PO TID 03/30/17 Metoprolol Tartrate [Lopressor 50 mg PO BID 03/30/17 (beta maryam)] Multivitamins,Therapeutic 1 tab PO DAILY@0800 03/30/17 [Multivitamin] Sertraline HCl [Zoloft] 50 mg PO QHS 03/30/17 Spironolactone 25 mg PO BID 03/30/17 Terazosin HCl [Hytrin] 10 mg PO QHS 03/30/17 albuterol sulfate HFA 90 2 puff PO Q6H PRN PRN #18 g 08/05/17 mcg/actuation aerosol inhaler Albuterol Aerosols [Ventolin 2.5 mg INHALATION Q4H PRN 08/20/17 Aerosols] Fluticasone/Salmeterol [Advair 2 puff INHALATION Q12H 08/20/17 500-50 Diskus] Furosemide [Lasix] 80 mg PO BID 08/20/17 Sertraline HCl [Zoloft] 100 mg PO DAILY 08/20/17 Apixaban [Eliquis] 5 mg PO BID 08/24/17 Budesonide Aerosol [Pulmicort 0.5 mg INHALATION BID.RT 08/24/17 Respules] Oxycodone [Oxyir] 5 mg PO Q4H PRN PRN #10 tab 08/24/17 Psyllium [Metamucil] 1 packet PO DAILY PRN PRN packet 08/24/17 Senna/Docusate Sodium [Senokot-S] 2 tablet PO BID 08/24/17 Surgical History: - - He has a bioprosthetic aortic valve replacement, abdominal aortic aneurysm repair '05, recent surgery to repair a large ventral hernia. Psychiatric History: Anxiety, Depression Lives: Spouse/ Significant Other Smoking Status: Former smoker Tobacco Use: Non-smoker Alcohol: None Drugs: None - *Family History Maternal History Items: Hypertension, - - Patient's father at the age of 94 from old age. Patient's mother at age of 87 with a history of hyperlipidemia and hypertension. Paternal History Items: Hypertension Review of Systems Constitutional: Denies: Chills, Fever, Weight Change HEENT: Denies: Head Aches, Sinus Congestion, Sinus Drainage Cardiovascular: Denies: Chest Pain, Palpitations Respiratory: Denies: Cough, Shortness of breath at rest, Sputum production Gastrointestinal: Denies: Abdominal Pain, Nausea, Vomiting Genitourinary: Denies: Dysuria Musculoskeletal: Denies: Joint Pain, Joint Tenderness Skin: Denies: Rash, Wounds Neurological: Denies: Numbness, Tingling, Focal weakness Psychiatric: Denies: Anxiety, Depression, Homicidal Ideations, Suicidal Ideations Hematologic/ Lymphatic: Denies: Easy Bruising, Easy Bleeding VTE Information - Inpt Only VTE Present on Admission: No VTE Mechan Device Prophylaxis: Knee High YAHIR Hose VTE Pharm Prophylaxis ordered?: No Reason prophylaxis not ordered:: Treatment Not Indicated Patient Problems: Active and Suspected Problems (Last Updated 08/24/17 @ 10:41 by Shannon Gomez EDGING MACHINE CATCHER-C) Shortness of breath (Acute) Acute on chronic diastolic heart failure (Acute) Bilateral lower leg cellulitis (Acute) Depression (Acute) - Physical Exam General: Alert, Oriented x3, Cooperative HEENT: Atraumatic, PERRLA, EOMI, Normocephalic Neck: Supple, No JVD, Negative Carotid Bruits Lungs: Clear to auscultation, Normal air movement Cardiovascular: Regular rate, No murmurs Abdomen: Bowel Sounds Present, Soft, Non Tender Extremities: Capillary Refill Less than 3 Seconds, Edema - 3+ pitting edema bilateral lower extremities. Skin: No rashes, No breakdown Musculoskeletal: No Tenderness to Palpation of Joints or Extremities Neurological: Cranial nerves II-XII grossly intact Psych/Mental Status: Normal Affect, Appropriate Vital Signs Temp Pulse Resp BP 97.2 F L 73 24 H 133/68 H 08/24/17 18:49 08/24/17 18:49 08/24/17 18:49 08/24/17 18:49 Oxygen Flow Rate (L/min) 3 Oxygen Delivery Method Nasal Cannula Weight: 171.004 kg Body Mass Index (BMI) 57.3 Finger Stick Blood Glucose 116 Intake and Output for Last 24 Hours 08/22/17 08/23/17 08/24/17 23:59 23:59 23:59 Intake Total 330 / 330 Balance 330 / 330 POC Glucose 08/24/17 20:52 POC Glucose 224 H Assessment/Plan Active and Suspected Problems (Last Updated 08/24/17 @ 10:41 by Shannon Gomez NP-C) Shortness of breath (Acute) Acute on chronic diastolic heart failure (Acute) Bilateral lower leg cellulitis (Acute) Depression (Acute) 72 year old male with below past medical history hospitalized for acute on chronic diastolic heart failure, complicated by iron deficiency anemia, bilateral lower extremity venous stasis dermatitis masquerading as bilateral lower extremity cellulitis, admitted to TCU with debility, here for rehabilitation, strengthening, prior to discharge home with spouse. Debility - PT/OT. Pain - Tylenol 1000MG Q8H PRN mild pain, Oxycodone 5MG Q4H PRN moderate pain. Bowel - Miralax 17GM daily, Senna/colace 2 tablets BID, Dulcolax 10MG daily PRN, Mag citrate 300ML PO x 1 dose, Soap Suds enema. Pneumonia vaccination - Administer Prevnar 13 and/or Pneumovax 23 as necessary. DVT prophylaxis - Not necessary, already on Eliquis. COPD - Advair 250/50 1 puff BID, Pulmicort 0.5MG BID, Albuterol 2.5MG Q4H PRN, Albuterol MDI 2 puffs Q6H PRN. Gout - Allopurinol 300MG daily. Pulmonary embolism - Eliquis 5MG BID. Hyperlipidemia - Atorvastatin 40MG QHS. Hypertension - Clonidine patch 0.3MG TD qweek, Losartan 100MG daily. BPH - Doxazosin 8MG QHS, Finasteride 5MG daily. Coronary Artery Disease - Metoprolol 50MG BID, Losartan 100MG daily, Plavix 75MG daily. Iron deficiency anemia - Ferrous sulfate 325MG daily. Acute on chronic diastolic heart failure - Metoprolol 50MG BID, Losartan 100MG daily, Aldactone 25MG BID, Lasix 80MG BID. Diabetes Mellitus II - Glimepiride 8MG QAM, Metformin 500MG TID, Levemir 30 units BID, Monitor blood sugars. Pruritus - Hydroxyzine 25MG TID PRN. Hypomagnesemia - Mag Oxide 800MG BID. Nutrition - MVI daily, Rafael 1 packet BID. Tinea Corporis - Nystatin powder BID abdominal folds, groin. GERD - Pantoprazole 20MG daily. Depression - Sertraline 100MG, 50MG QHS.
[2017-08-24] MEDS: oxyCODONE 5 MG Tablet PO (21:24)
[2017-08-24] MEDS: Doxazosin 4 MG Tablet 8 MG PO (21:25)
[2017-08-24] MEDS: APIXABAN 5 MG TABLET PO (21:25)
[2017-08-24 21:26] VITALS: PULSE 75
[2017-08-24] MEDS: Metoprolol Tartrate 50 MG Tablet PO (21:26)
[2017-08-24] MEDS: Atorvastatin Calcium 40 MG Tablet PO (21:26)
[2017-08-24] MEDS: Senna/Docusate Sodium 1 Tablet 2 TABLET PO (21:27)
[2017-08-24] MEDS: Nystatin Powder 15gm Bottle 1 APPLIC TOPICAL (21:27)
[2017-08-24] MEDS: Magnesium Oxide 400 MG Tablet 800 MG PO (21:27)
[2017-08-24] MEDS: Sertraline 50 MG Tablet PO (21:29)
[2017-08-24] MEDS: hydrOXYzine PAM 25 MG Capsule PO (21:30)
--- NOTE | 2017-08-24 21:34 | HP.PCM_ITS ---
Problem List (1) Shortness of breath Status: Acute (2) Acute on chronic diastolic heart failure Status: Acute (3) Bilateral lower leg cellulitis Status: Acute (4) Venous stasis dermatitis Status: Chronic (5) Anemia Status: Chronic (6) Osteoarthritis Status: Chronic (7) Coronary artery disease Status: Chronic (8) Chronic kidney disease Status: Chronic (9) Diabetes mellitus Status: Chronic (10) Lymphedema Status: Chronic (11) Hyperlipidemia Status: Chronic (12) Super obesity Status: Chronic (13) Sleep apnea Status: Chronic (14) Pulmonary embolism Status: Chronic (15) Gout Status: Chronic (16) Depression Status: Acute (17) HTN (hypertension) Status: Chronic Qualifiers: (18) BPH (benign prostatic hypertrophy) Status: Chronic Qualifiers: (19) Asthma Status: Chronic Qualifiers: (20) COPD (chronic obstructive pulmonary disease) Status: Chronic Qualifiers: (21) GERD (gastroesophageal reflux disease) Status: Chronic Qualifiers: (22) Pulmonary hypertension Status: Chronic History of Present Illness Date of Admission: 08/24/17 Chief Complaint: Here for rehabilitation, strengthening, prior to discharge home with spouse. The patient is a 72 year old Male with below past medical history presented to [facility] Emergency Department 08/20/2017 with shortness of breath. 08/20/2017 Chest X-ray moderate enlargement cardiac silhouette, diffuse edema, small right pleural effusion. Shortness of breath x 4 days, worsening at home. Increased leg swelling. Dyspnea on exertion, mild cough. Sent to Emergency Department from Dr. Clay's office. Albuterol aerosol given. EKG sinus rhythm, heart rate 93. Hemoglobin 9.8, CO2 37, Glucose 213, Troponin negative. BNP 181.5. Lasix IV, Off Eliquis, heparin drip started. Zosyn, Vancomycin IV for bilateral lower extremity cellulitis. 08/20/2017 CTA chest right upper lobe chronic pulmonary embolism. Mild cardiomegaly, mild edema. Moderate right pleural effusion, small left pleural effusion. Right lower lobe atelectasis. Herniation of stomach, colon. 08/20/2017 Admit to Hospital. IV Lasix for congestive heart failure. Heparin drop for pulmonary embolism. IV Vancomycin, Zosyn, for bilateral lower extremity cellulitis. 08/20/2017 Dr. Raymundo recommended ACEI, diuretics. Eliquis for pulmonary embolism. 08/21/2017 Echo LV systolic function normal. EF 60%. 08/21/2017 Dr. Clay recommended aerosol, Eliquis, IV Lasix, BiPAP. 08/21/2017 Continue IV Lasix, stop Zosyn, legs are venous stasis dermatitis rather than cellulitis. 08/22/2017 Diuresing well on IV Lasix. Venofer IV for iron replacement. 08/24/2017 Admit to TCU for rehabilitation, strengthening, prior to discharge home with spouse. Past Medical History Past Medical History (Chronic Problems): Chronic Problems (Last Updated 08/24/17 @ 10:41 by Shannon Gomez, BUILDING DISMANTLER-C) Venous stasis dermatitis (Chronic) Anemia (Chronic) Osteoarthritis (Chronic) Coronary artery disease (Chronic) Chronic kidney disease (Chronic) Diabetes mellitus (Chronic) Lymphedema (Chronic) Hyperlipidemia (Chronic) Super obesity (Chronic) Sleep apnea (Chronic) Pulmonary embolism (Chronic) Gout (Chronic) CKD (chronic kidney disease), stage II (Chronic) Wheezing (Chronic) MIKO (obstructive sleep apnea) (Chronic) HTN (hypertension) (Chronic) BPH (benign prostatic hypertrophy) (Chronic) Tinea unguium (Chronic) Diabetes mellitus with neuropathy (Chronic) Leg swelling (Chronic) Lymphedema of leg (Chronic) Multiple excoriations (Chronic) Asthma (Chronic) COPD (chronic obstructive pulmonary disease) (Chronic) Arthritis (Chronic) Immobility (Chronic) 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 Patient was educated on the signs and symptoms of bleeding as such as hemoptysis, hematemesis, hematochezia or melena stools. Patient has been advised to watch for these symptoms contact the office if they present. Follow-up with Dr. Clay in approximately 8 weeks as previously scheduled. Adynamic ileus (Chronic) Ventral hernia (Chronic) Hypoglycemia (Chronic) Peripheral neuropathy (Chronic) Chronic anemia (Chronic) Benign essential hypertension (Chronic) Benign prostatic hypertrophy without urinary obstruction (Chronic) CKD (chronic kidney disease), stage II (Chronic) CHF (congestive heart failure) (Chronic) CAD (coronary artery disease) (Chronic) Type II diabetes mellitus (Chronic) GERD (gastroesophageal reflux disease) (Chronic) Hypercholesteremia (Chronic) Morbid obesity (Chronic) Pulmonary hypertension (Chronic) H/O aortic valve replacement (Chronic) S/P AAA repair (Chronic) Venous insufficiency (Chronic) Tinea unguium (Chronic) Allergies naphazoline HCl [From Naphcon] Allergy (Severe, Verified 08/20/17 15:18) affected his breathing AFFECTED HIS BREATHING amlodipine besylate [From Norvasc] Allergy (Verified 08/20/17 15:18) Other dextromethorphan Allergy (Verified 08/20/17 15:18) Other levofloxacin [From Levaquin] Adverse Reaction (Mild, Verified 08/20/17 15:18) made me hyperactive made me hyperactive Home Medications: Ambulatory Orders Medication Instructions Recorded Allopurinol [Zyloprim] 300 mg PO DAILY 03/30/17 Atorvastatin Calcium [Lipitor] 40 mg PO QHS 03/30/17 Clonidine Patch [Catapres-Tts3] 0.3 mg TOPICAL FR 03/30/17 Clopidogrel Bisulfate [Plavix] 75 mg PO DAILY 03/30/17 Ferrous Sulfate 325 mg PO DAILY@0800 03/30/17 Finasteride [Proscar] 5 mg PO DAILY 03/30/17 Glimepiride [Amaryl] 8 mg PO BREAKFAST 03/30/17 Hydroxyzine HCl 25 mg PO TID PRN 03/30/17 Insulin Glargine [Lantus SoloStar 30 units PO BID 03/30/17 Pen] Lansoprazole 15 mg PO DAILY 03/30/17 Losartan Potassium 100 mg PO DAILY 03/30/17 Magnesium Oxide [Mag-Ox 400] 800 mg PO BID 03/30/17 Metformin HCl [Glucophage] 500 mg PO TID 03/30/17 Metoprolol Tartrate [Lopressor 50 mg PO BID 03/30/17 (beta maryam)] Multivitamins,Therapeutic 1 tab PO DAILY@0800 03/30/17 [Multivitamin] Sertraline HCl [Zoloft] 50 mg PO QHS 03/30/17 Spironolactone 25 mg PO BID 03/30/17 Terazosin HCl [Hytrin] 10 mg PO QHS 03/30/17 albuterol sulfate HFA 90 2 puff PO Q6H PRN PRN #18 g 08/05/17 mcg/actuation aerosol inhaler Albuterol Aerosols [Ventolin 2.5 mg INHALATION Q4H PRN 08/20/17 Aerosols] Fluticasone/Salmeterol [Advair 2 puff INHALATION Q12H 08/20/17 500-50 Diskus] Furosemide [Lasix] 80 mg PO BID 08/20/17 Sertraline HCl [Zoloft] 100 mg PO DAILY 08/20/17 Apixaban [Eliquis] 5 mg PO BID 08/24/17 Budesonide Aerosol [Pulmicort 0.5 mg INHALATION BID.RT 08/24/17 Respules] Oxycodone [Oxyir] 5 mg PO Q4H PRN PRN #10 tab 08/24/17 Psyllium [Metamucil] 1 packet PO DAILY PRN PRN packet 08/24/17 Senna/Docusate Sodium [Senokot-S] 2 tablet PO BID 08/24/17 Surgical History: - - He has a bioprosthetic aortic valve replacement, abdominal aortic aneurysm repair '05, recent surgery to repair a large ventral hernia. Psychiatric History: Anxiety, Depression Lives: Spouse/ Significant Other Smoking Status: Former smoker Tobacco Use: Non-smoker Alcohol: None Drugs: None - *Family History Maternal History Items: Hypertension, - - Patient's father at the age of 94 from old age. Patient's mother at age of 87 with a history of hyperlipidemia and hypertension. Paternal History Items: Hypertension Review of Systems Constitutional: Denies: Chills, Fever, Weight Change HEENT: Denies: Head Aches, Sinus Congestion, Sinus Drainage Cardiovascular: Denies: Chest Pain, Palpitations Respiratory: Denies: Cough, Shortness of breath at rest, Sputum production Gastrointestinal: Denies: Abdominal Pain, Nausea, Vomiting Genitourinary: Denies: Dysuria Musculoskeletal: Denies: Joint Pain, Joint Tenderness Skin: Denies: Rash, Wounds Neurological: Denies: Numbness, Tingling, Focal weakness Psychiatric: Denies: Anxiety, Depression, Homicidal Ideations, Suicidal Ideations Hematologic/ Lymphatic: Denies: Easy Bruising, Easy Bleeding VTE Information - Inpt Only VTE Present on Admission: No VTE Mechan Device Prophylaxis: Knee High YAHIR Hose VTE Pharm Prophylaxis ordered?: No Reason prophylaxis not ordered:: Treatment Not Indicated Patient Problems: Active and Suspected Problems (Last Updated 08/24/17 @ 10:41 by Shannon Gomez BUILDING DISMANTLER-C) Shortness of breath (Acute) Acute on chronic diastolic heart failure (Acute) Bilateral lower leg cellulitis (Acute) Depression (Acute) - Physical Exam General: Alert, Oriented x3, Cooperative HEENT: Atraumatic, PERRLA, EOMI, Normocephalic Neck: Supple, No JVD, Negative Carotid Bruits Lungs: Clear to auscultation, Normal air movement Cardiovascular: Regular rate, No murmurs Abdomen: Bowel Sounds Present, Soft, Non Tender Extremities: Capillary Refill Less than 3 Seconds, Edema - 3+ pitting edema bilateral lower extremities. Skin: No rashes, No breakdown Musculoskeletal: No Tenderness to Palpation of Joints or Extremities Neurological: Cranial nerves II-XII grossly intact Psych/Mental Status: Normal Affect, Appropriate Vital Signs Temp Pulse Resp BP 97.2 F L 73 24 H 133/68 H 08/24/17 18:49 08/24/17 18:49 08/24/17 18:49 08/24/17 18:49 Oxygen Flow Rate (L/min) 3 Oxygen Delivery Method Nasal Cannula Weight: 171.004 kg Body Mass Index (BMI) 57.3 Finger Stick Blood Glucose 116 Intake and Output for Last 24 Hours 08/22/17 08/23/17 08/24/17 23:59 23:59 23:59 Intake Total 330 / 330 Balance 330 / 330 POC Glucose 08/24/17 20:52 POC Glucose 224 H Assessment/Plan Active and Suspected Problems (Last Updated 08/24/17 @ 10:41 by Shannon Gomez NP-C) Shortness of breath (Acute) Acute on chronic diastolic heart failure (Acute) Bilateral lower leg cellulitis (Acute) Depression (Acute) 72 year old male with below past medical history hospitalized for acute on chronic diastolic heart failure, complicated by iron deficiency anemia, bilateral lower extremity venous stasis dermatitis masquerading as bilateral lower extremity cellulitis, admitted to TCU with debility, here for rehabilitation, strengthening, prior to discharge home with spouse. * Debility - PT/OT. * Pain - Tylenol 1000MG Q8H PRN mild pain, Oxycodone 5MG Q4H PRN moderate pain. * Bowel - Miralax 17GM daily, Senna/colace 2 tablets BID, Dulcolax 10MG daily PRN, Mag citrate 300ML PO x 1 dose, Soap Suds enema. * Pneumonia vaccination - Administer Prevnar 13 and/or Pneumovax 23 as necessary. * DVT prophylaxis - Not necessary, already on Eliquis. * COPD - Advair 250/50 1 puff BID, Pulmicort 0.5MG BID, Albuterol 2.5MG Q4H PRN , Albuterol MDI 2 puffs Q6H PRN. * Gout - Allopurinol 300MG daily. * Pulmonary embolism - Eliquis 5MG BID. * Hyperlipidemia - Atorvastatin 40MG QHS. * Hypertension - Clonidine patch 0.3MG TD qweek, Losartan 100MG daily. * BPH - Doxazosin 8MG QHS, Finasteride 5MG daily. * Coronary Artery Disease - Metoprolol 50MG BID, Losartan 100MG daily, Plavix 75MG daily. * Iron deficiency anemia - Ferrous sulfate 325MG daily. * Acute on chronic diastolic heart failure - Metoprolol 50MG BID, Losartan 100MG daily, Aldactone 25MG BID, Lasix 80MG BID. * Diabetes Mellitus II - Glimepiride 8MG QAM, Metformin 500MG TID, Levemir 30 units BID, Monitor blood sugars. * Pruritus - Hydroxyzine 25MG TID PRN. * Hypomagnesemia - Mag Oxide 800MG BID. * Nutrition - MVI daily, Rafael 1 packet BID. * Tinea Corporis - Nystatin powder BID abdominal folds, groin. * GERD - Pantoprazole 20MG daily. * Depression - Sertraline 100MG, 50MG QHS.
--- NOTE | 2017-08-24 22:41 | NURSING ---
Discussed Code status with patient, patient wishes to be a full code.
[2017-08-25] VITALS (8 sets, daily range): BP systolic 138–143; BP diastolic 58–61; PULSE 60–68; RESP 16–22; TEMP 36.6; O2SAT 93–96
[2017-08-25] MEDS: oxyCODONE 5 MG Tablet PO ×3 (01:45→20:19)
[2017-08-25] MEDS: Budesonide Respules 0.5 MG/2 ML AMPUL.NEB. INHALATION ×2 (05:50→19:15)
[2017-08-25] MEDS: Clopidogrel Bisulfate 75 MG Tablet PO (06:27)
[2017-08-25] MEDS: Furosemide 80 MG Tablet PO ×2 (06:27→17:27)
[2017-08-25] MEDS: Finasteride 5 MG Tablet PO (06:27)
[2017-08-25] MEDS: Losartan Potassium 100 MG Tablet PO (06:27)
[2017-08-25] MEDS: Spironolactone 25 MG Tablet PO ×2 (06:27→17:27)
[2017-08-25] MEDS: hydrOXYzine PAM 25 MG Capsule PO ×2 (06:28→20:22)
[2017-08-25] MEDS: Pantoprazole Sodium 20 MG Tablet PO (06:28)
[2017-08-25] MEDS: Sertraline 100 MG Tablet PO (06:28)
[2017-08-25] MEDS: Senna/Docusate Sodium 1 Tablet 2 TABLET PO ×2 (06:28→17:27)
[2017-08-25] MEDS: Nystatin Powder 15gm Bottle 1 APPLIC TOPICAL ×2 (06:29→20:24)
[2017-08-25] MEDS: Polyethylene Glycol 3350 17 GM PACKET PO (06:32)
[2017-08-25 06:35] LABS: Bedside Glucose 158 mg/dL (70-110)
[2017-08-25] MEDS: Multivitamins,Therapeutic Tablet 1 TABLET PO (08:21)
[2017-08-25] MEDS: Allopurinol 300 MG Tablet PO (08:21)
[2017-08-25] MEDS: Ferrous Sulfate 325 MG Tablet PO (08:21)
[2017-08-25] MEDS: Glimepiride 4 MG Tablet 8 MG PO (08:21)
[2017-08-25] MEDS: Magnesium Oxide 400 MG Tablet 800 MG PO ×2 (09:53→20:24)
[2017-08-25] MEDS: Metoprolol Tartrate 50 MG Tablet PO ×2 (09:54→20:24)
[2017-08-25] MEDS: APIXABAN 5 MG TABLET PO ×2 (09:54→20:23)
[2017-08-25] MEDS: Tuberculin,Purif.prot.deriv. 50 TU/ML Vial 5 ML ID (09:55)
[2017-08-25 11:21] LABS: Bedside Glucose 136 mg/dL (70-110)
[2017-08-25 16:45] LABS: Bedside Glucose 77 mg/dL (70-110)
[2017-08-25] MEDS: Atorvastatin Calcium 40 MG Tablet PO (20:23)
[2017-08-25] MEDS: Doxazosin 4 MG Tablet 8 MG PO (20:23)
[2017-08-25] MEDS: Sertraline 50 MG Tablet PO (20:26)
[2017-08-25 20:55] LABS: Bedside Glucose 125 mg/dL (70-110)
[2017-08-26] MEDS: oxyCODONE 5 MG Tablet PO ×2 (01:15→05:29)
[2017-08-26] MEDS: Spironolactone 25 MG Tablet PO ×2 (05:26→17:12)
[2017-08-26] MEDS: Furosemide 80 MG Tablet PO ×2 (05:26→17:12)
[2017-08-26] MEDS: Polyethylene Glycol 3350 17 GM PACKET PO (05:27)
[2017-08-26] MEDS: Losartan Potassium 100 MG Tablet PO (05:27)
[2017-08-26] MEDS: Clopidogrel Bisulfate 75 MG Tablet PO (05:27)
[2017-08-26] MEDS: Pantoprazole Sodium 20 MG Tablet PO (05:27)
[2017-08-26] MEDS: Nystatin Powder 15gm Bottle 1 APPLIC TOPICAL ×2 (05:27→21:04)
[2017-08-26] MEDS: Sertraline 100 MG Tablet PO (05:29)
[2017-08-26] MEDS: Senna/Docusate Sodium 1 Tablet 2 TABLET PO ×2 (05:29→17:12)
[2017-08-26] MEDS: hydrOXYzine PAM 25 MG Capsule PO (05:29)
[2017-08-26] MEDS: Finasteride 5 MG Tablet PO (05:30)
[2017-08-26 06:36] VITALS: PULSE 60; RESP 20; O2SAT 95
[2017-08-26] MEDS: Budesonide Respules 0.5 MG/2 ML AMPUL.NEB. INHALATION (06:36)
[2017-08-26 06:46] LABS: Anion Gap 5 (5-15); BUN 42 mg/dL (7-18); BUN/Creat Ratio 29.2 RATIO (10-20); Calcium,Total 8.1 mg/dL (8.5-10.1); Chloride 95 mmol/L (98-107); Creatinine, Serum 1.44 mg/dL (0.70-1.30); EST Glomerular Filtration Rate 51 mL/min (>60); Est Glom Filt Rate - Afr Amer 62 mL/min (>60); Estimated Creatinine Clearance 43.54 ml/min; Glucose 112 mg/dL (74-106); Sodium Level 138 mmol/L (136-145)
[2017-08-26 06:46] LABS: Bedside Glucose 124 mg/dL (70-110)
[2017-08-26 07:04] LABS: Absolute Lymphocyte Count 0.86 X10^3/ul (0.83-4.51); Absolute Neutrophil Count 4.6 X10^3/uL (2.0-7.7); Basophil# 0.03 X10^3/uL; Basophil% 0.5 % (0-1); Eosinophils% 4.6 % (0-5); Hematocrit 31.3 % (40-54); Hemoglobin 9.2 g/dl (13.0-16.5); Lymphocyte # 0.86 X10^3/ul (4.0); Lymphocyte % 13.1 % (19-41); Mean Corp Hgb Conc 29.4 g/gl (32-36); Mean Corpuscular Hgb 26.6 pg (27.0-32.0); Mean Corpuscular Volume 90.5 fL (80-94); Mean Platelet Vol. 9.3 fl (6.2-12.0); Monocyte# 0.73 X10^3/uL; Monocyte% 11.1 % (0-10); Neutrophil # 4.61 X10^3/uL (2.7-7.7); Neutrophil % 70.1 % (47-70); POSITIVE COUNT NO; POSITIVE DIFFERENTIAL NO; POSITIVE MORPHOLOGY NO; Platelet Count 194 K/mm3 (150-450); RBC Distribution Width CV 14.8 % (11.6-14.6); RBC Distribution Width SD 48.4 fl (35.1-43.9); Red Blood Count 3.46 M/mm3 (4.6-6.2); White Blood Count 6.6 K/mm3 (4.4-11.0)
[2017-08-26] MEDS: Magnesium Oxide 400 MG Tablet 800 MG PO ×2 (08:19→21:05)
[2017-08-26 08:20] VITALS: BP 140/60; PULSE 66
[2017-08-26] MEDS: Glimepiride 4 MG Tablet 8 MG PO (08:20)
[2017-08-26] MEDS: Multivitamins,Therapeutic Tablet 1 TABLET PO (08:20)
[2017-08-26] MEDS: Allopurinol 300 MG Tablet PO (08:20)
[2017-08-26] MEDS: Ferrous Sulfate 325 MG Tablet PO (08:20)
[2017-08-26] MEDS: Metoprolol Tartrate 50 MG Tablet PO ×2 (08:20→21:05)
[2017-08-26] MEDS: APIXABAN 5 MG TABLET PO ×2 (08:20→21:06)
--- NOTE | 2017-08-26 09:55 | NURSING ---
wound photo: right lateral lower leg
--- NOTE | 2017-08-26 09:55 | NURSING ---
wound photo: left lateral lower leg
[2017-08-26 11:45] LABS: Bedside Glucose 150 mg/dL (70-110)
--- NOTE | 2017-08-26 13:29 | PCM.PN.RX ---
<Joseph Hackett - Last Filed: 08/26/17 15:28> Progress Note - Pharmacy Subjective: [] Objective: Allergies naphazoline HCl [From Naphcon] Allergy (Severe, Verified 08/20/17 15:18) affected his breathing AFFECTED HIS BREATHING amlodipine besylate [From Norvasc] Allergy (Verified 08/20/17 15:18) Other dextromethorphan Allergy (Verified 08/20/17 15:18) Other levofloxacin [From Levaquin] Adverse Reaction (Mild, Verified 08/20/17 15:18) made me hyperactive made me hyperactive Home Medications Medication Instructions Recorded Allopurinol [Zyloprim] 300 mg PO DAILY 03/30/17 Atorvastatin Calcium [Lipitor] 40 mg PO QHS 03/30/17 Clonidine Patch [Catapres-Tts3] 0.3 mg TOPICAL FR 03/30/17 Clopidogrel Bisulfate [Plavix] 75 mg PO DAILY 03/30/17 Ferrous Sulfate 325 mg PO DAILY@0800 03/30/17 Finasteride [Proscar] 5 mg PO DAILY 03/30/17 Glimepiride [Amaryl] 8 mg PO BREAKFAST 03/30/17 Hydroxyzine HCl 25 mg PO TID PRN 03/30/17 Insulin Glargine [Lantus SoloStar 30 units PO BID 03/30/17 Pen] Lansoprazole 15 mg PO DAILY 03/30/17 Losartan Potassium 100 mg PO DAILY 03/30/17 Magnesium Oxide [Mag-Ox 400] 800 mg PO BID 03/30/17 Metformin HCl [Glucophage] 500 mg PO TID 03/30/17 Metoprolol Tartrate [Lopressor 50 mg PO BID 03/30/17 (beta kristel)] Multivitamins,Therapeutic 1 tab PO DAILY@0800 03/30/17 [Multivitamin] Sertraline HCl [Zoloft] 50 mg PO QHS 03/30/17 Spironolactone 25 mg PO BID 03/30/17 Terazosin HCl [Hytrin] 10 mg PO QHS 03/30/17 albuterol sulfate HFA 90 2 puff PO Q6H PRN PRN #18 g 08/05/17 mcg/actuation aerosol inhaler Albuterol Aerosols [Ventolin 2.5 mg INHALATION Q4H PRN 08/20/17 Aerosols] Fluticasone/Salmeterol [Advair 2 puff INHALATION Q12H 08/20/17 500-50 Diskus] Furosemide [Lasix] 80 mg PO BID 08/20/17 Sertraline HCl [Zoloft] 100 mg PO DAILY 08/20/17 Apixaban [Eliquis] 5 mg PO BID 08/24/17 Budesonide Aerosol [Pulmicort 0.5 mg INHALATION BID.RT 08/24/17 Respules] Oxycodone [Oxyir] 5 mg PO Q4H PRN PRN #10 tab 08/24/17 Psyllium [Metamucil] 1 packet PO DAILY PRN PRN packet 08/24/17 Senna/Docusate Sodium [Senokot-S] 2 tablet PO BID 08/24/17 Current Medications Generic Name Dose Route Start Last Admin Trade Name Freq PRN Reason Stop Dose Admin Acetaminophen 1,000 mg 08/24/17 21:58 Tylenol PO Q8H PRN PRN MILD PAIN (1-3/10) Albuterol Sulfate 2.5 mg 08/24/17 19:06 Ventolin Aerosols INHALATION Q4H PRN BREATHING Albuterol Sulfate 2 puff 08/24/17 19:06 Ventolin Hfa (Sp) INHALATION Q6H PRN PRN BREATHING Allopurinol 300 mg 08/25/17 08:00 08/26/17 08:20 Zyloprim PO 300 mg DAILY@0800 [facility] Administration Apixaban 5 mg 08/24/17 22:00 08/26/17 08:20 Eliquis PO 5 mg BID@1000,2200 [facility] Administration Atorvastatin Calcium 40 mg 08/24/17 22:00 08/25/17 20:23 Lipitor PO 40 mg QHS [facility] Administration Bisacodyl 10 mg 08/24/17 21:58 Dulcolax PO DAILY PRN Constipation Budesonide 0.5 mg 08/24/17 19:15 08/26/17 06:36 Pulmicort Aerosol INHALATION 0.5 mg BID.RT [facility] Administration Clonidine HCl 0.3 mg 08/28/17 10:00 Catapres-Tts3 TRANSDERM. FR [facility] Clopidogrel Bisulfate 75 mg 08/25/17 06:00 08/26/17 05:27 Plavix PO 75 mg DAILY [facility] Administration Doxazosin Mesylate 8 mg 08/24/17 22:00 08/25/17 20:23 Cardura PO 8 mg QHS [facility] Administration Ferrous Sulfate 325 mg 08/25/17 08:00 08/26/17 08:20 Ferrous Sulfate PO 325 mg DAILY@0800 [facility] Administration Finasteride 5 mg 08/25/17 06:00 08/26/17 05:30 Proscar PO 5 mg DAILY [facility] Administration Furosemide 80 mg 08/24/17 20:00 08/26/17 05:26 Lasix PO 80 mg BID@0600,1800 [facility] Administration Glimepiride 8 mg 08/25/17 08:00 08/26/17 08:20 Amaryl PO 8 mg BREAKFAST [facility] Administration Hydroxyzine Pamoate 25 mg 08/24/17 19:06 08/26/17 05:29 Vistaril Pamoate Capsule PO 25 mg TID PRN Administration ITCHING Insulin Detemir 30 units 08/24/17 22:00 08/26/17 07:24 Levemir (Bkc) SC 30 u BID [facility] Administration Losartan Potassium 100 mg 08/25/17 06:00 08/26/17 05:27 Cozaar PO 100 mg DAILY [facility] Administration Magnesium Oxide 800 mg 08/24/17 22:00 08/26/17 08:19 Mag-Ox 400 PO 800 mg BID@1000,2200 [facility] Administration Metformin HCl 500 mg 08/25/17 07:45 08/26/17 12:55 Glucophage PO 500 mg TIDCM [facility] Administration Metoprolol Tartrate 50 mg 08/24/17 22:00 08/26/17 08:20 Lopressor (Beta Kristel) PO 50 mg BID@1000,2200 [facility] Administration Multivitamins 1 tablet 08/25/17 08:00 08/26/17 08:20 Multivitamin PO 1 tablet DAILY@0800 [facility] Administration Nutritional Formula 1 packet 08/25/17 08:00 08/26/17 08:20 Rafael - Luce Flavor PO 1 packet BIDCM [facility] Administration Nystatin 1 applic 08/24/17 22:00 08/26/17 05:27 Mycostatin Powder TOPICAL 1 applicatio 0600,2200 [facility] Administration Protocol Oxycodone HCl 5 mg 08/24/17 19:06 08/26/17 05:29 Oxyir PO 5 mg Q4H PRN PRN Administration Moderate Pain (pain scale 4-5) Pantoprazole Sodium 20 mg 08/25/17 06:00 08/26/17 05:27 Protonix PO 20 mg DAILY [facility] Administration Polyethylene Glycol 17 gm 08/25/17 06:00 08/26/17 05:27 Miralax PO 17 gm DAILY [facility] Administration Fluticasone/Salmeterol 1 puff 08/25/17 06:00 08/26/17 05:25 Advair 250/50 Mcg Diskus INHALATION 1 puff Q12 [facility] Administration Senna/Docusate Sodium 2 tablet 08/24/17 22:00 08/26/17 05:29 Senokot-S, Kyung-Colace PO 2 tablet BID [facility] Administration Sertraline HCl 50 mg 08/24/17 22:00 08/25/17 20:26 Zoloft PO 50 mg QHS [facility] Administration Sertraline HCl 100 mg 08/25/17 06:00 08/26/17 05:29 Zoloft PO 100 mg DAILY [facility] Administration Spironolactone 25 mg 08/25/17 06:00 08/26/17 05:26 Aldactone PO 25 mg BID [facility] Administration Tuberculin PPD 5 tu 09/01/17 10:00 Tubersol, Aplisol, Ppd ID 09/01/17 10:01 X1 ONE Problem List (Last Updated 08/24/17 @ 10:41 by Shannon Gomez, HEALTH DIAGNOSTICS TEACHER-C) Shortness of breath (Acute) Acute on chronic diastolic heart failure (Acute) Bilateral lower leg cellulitis (Acute) Venous stasis dermatitis (Chronic) Anemia (Chronic) Osteoarthritis (Chronic) Coronary artery disease (Chronic) Chronic kidney disease (Chronic) Diabetes mellitus (Chronic) Lymphedema (Chronic) Hyperlipidemia (Chronic) Super obesity (Chronic) Sleep apnea (Chronic) Pulmonary embolism (Chronic) Gout (Chronic) Depression (Acute) Vital Signs Temp Pulse Resp BP Pulse Ox 97.8 F 66 20 H 140/60 H 95 08/25/17 15:48 08/26/17 08:20 08/26/17 06:36 08/26/17 08:20 08/26/17 06:36 Oxygen Flow Rate (L/min) 3.5 Oxygen Delivery Method Nasal Cannula Weight: 169.303 kg Body Mass Index (BMI) 57.3 Finger Stick Blood Glucose 116 Sodium 138 mmol/L (136-145) 04/04/18 05:15 Potassium 4.0 mmol/L (3.5-5.1) 08/26/17 05:15 Chloride 95 mmol/L (98-107) L 08/26/17 05:15 Carbon Dioxide 38.0 mmol/L (21.0-32.0) H 08/26/17 05:15 Anion Gap 5 (5-15) 08/26/17 05:15 BUN 42 mg/dL (7-18) H 08/26/17 05:15 Creatinine 1.44 mg/dL (0.70-1.30) H 08/26/17 05:15 Est GFR (MDRD) Af Amer 62 mL/min (>60) 08/26/17 05:15 Est GFR (MDRD) Non-Af 51 mL/min (>60) L 08/26/17 05:15 BUN/Creatinine Ratio 29.2 RATIO (10-20) H 08/26/17 05:15 Glucose 112 mg/dL (74-106) H 08/26/17 05:15 Assessment/Plan: 1) Pain APAP for mild pain, oxycodone for moderate pain. Continue to monitor prn medication use, daily pain scores. 2) CHF/CAD/HTN Spironolactone, metoprolol, losartan, furosemide, clopidogrel, clonidine patch, atorvastatin. BP/HR within goal ranges, K wnl, BUN/SCr elevated from baseline, HDL and TG not at goal, hepatic enzymes wnl. Continue to monitor BP/HR, renal function, electrolytes, lipids, enzymes, for chest pain. 3) DM2 Metformin, insulin detemir twice daily, glimepiride with breakfast. BGT < 180 mg/dl. Continue to monitor BGT, s/s hyper/hypoglycemia. 4) COPD Advair inhaler twice daily, albuterol inhaler as needed. Continue to monitor prn medication use, for exacerbation. 5) PE Apixaban twice daily. Hgb/Hct decreased slightly from baseline. Continue to monitor s/s bleeding/clot. 6) BPH Finasteride, doxazosin. Continue to monitor for symptoms. 7) Gout Allopurinol daily. Continue to monitor s/s gout. 8) GI Pantoprazole daily. Continue to monitor s/s GI distress. 9) Derm Nystatin powder topically, hydroxyzine for itching. Continue to monitor prn medication use. 10) Nutrition Rafael, multivitamin, MgOx, Fe. Continue to monitor clinically. Psychotropic Medications: 11) Depression Sertraline daily. Continue to monitor for s/s depression/anxiety. Unnecessary Medications: None Bowel Regimen: 12) Senna/s, PEG, prn bisacodyl. Continue to monitor prn medication use, for constipation/diarrhea. Date of Note:: 08/26/17 - Provider Comments Provider responsibility: Provider responsible to enter orders to implement recommendations <Teo Barr Chi - Last Filed: 08/26/17 16:45> Progress Note - Pharmacy Subjective: [] Objective: Allergies naphazoline HCl [From Naphcon] Allergy (Severe, Verified 08/20/17 15:18) affected his breathing AFFECTED HIS BREATHING amlodipine besylate [From Norvasc] Allergy (Verified 08/20/17 15:18) Other dextromethorphan Allergy (Verified 08/20/17 15:18) Other levofloxacin [From Levaquin] Adverse Reaction (Mild, Verified 08/20/17 15:18) made me hyperactive made me hyperactive Home Medications Medication Instructions Recorded Allopurinol [Zyloprim] 300 mg PO DAILY 03/30/17 Atorvastatin Calcium [Lipitor] 40 mg PO QHS 03/30/17 Clonidine Patch [Catapres-Tts3] 0.3 mg TOPICAL FR 03/30/17 Clopidogrel Bisulfate [Plavix] 75 mg PO DAILY 03/30/17 Ferrous Sulfate 325 mg PO DAILY@0800 03/30/17 Finasteride [Proscar] 5 mg PO DAILY 03/30/17 Glimepiride [Amaryl] 8 mg PO BREAKFAST 03/30/17 Hydroxyzine HCl 25 mg PO TID PRN 03/30/17 Insulin Glargine [Lantus SoloStar 30 units PO BID 03/30/17 Pen] Lansoprazole 15 mg PO DAILY 03/30/17 Losartan Potassium 100 mg PO DAILY 03/30/17 Magnesium Oxide [Mag-Ox 400] 800 mg PO BID 03/30/17 Metformin HCl [Glucophage] 500 mg PO TID 03/30/17 Metoprolol Tartrate [Lopressor 50 mg PO BID 03/30/17 (beta kristel)] Multivitamins,Therapeutic 1 tab PO DAILY@0800 03/30/17 [Multivitamin] Sertraline HCl [Zoloft] 50 mg PO QHS 03/30/17 Spironolactone 25 mg PO BID 03/30/17 Terazosin HCl [Hytrin] 10 mg PO QHS 03/30/17 albuterol sulfate HFA 90 2 puff PO Q6H PRN PRN #18 g 08/05/17 mcg/actuation aerosol inhaler Albuterol Aerosols [Ventolin 2.5 mg INHALATION Q4H PRN 08/20/17 Aerosols] Fluticasone/Salmeterol [Advair 2 puff INHALATION Q12H 08/20/17 500-50 Diskus] Furosemide [Lasix] 80 mg PO BID 08/20/17 Sertraline HCl [Zoloft] 100 mg PO DAILY 08/20/17 Apixaban [Eliquis] 5 mg PO BID 08/24/17 Budesonide Aerosol [Pulmicort 0.5 mg INHALATION BID.RT 08/24/17 Respules] Oxycodone [Oxyir] 5 mg PO Q4H PRN PRN #10 tab 08/24/17 Psyllium [Metamucil] 1 packet PO DAILY PRN PRN packet 08/24/17 Senna/Docusate Sodium [Senokot-S] 2 tablet PO BID 08/24/17 Current Medications Generic Name Dose Route Start Last Admin Trade Name Freq PRN Reason Stop Dose Admin Acetaminophen 1,000 mg 08/24/17 21:58 Tylenol PO Q8H PRN PRN MILD PAIN (1-3/10) Albuterol Sulfate 2 puff 08/24/17 19:06 Ventolin Hfa (Sp) INHALATION Q6H PRN PRN BREATHING Allopurinol 300 mg 08/25/17 08:00 08/26/17 08:20 Zyloprim PO 300 mg DAILY@0800 [facility] Administration Apixaban 5 mg 08/24/17 22:00 08/26/17 08:20 Eliquis PO 5 mg BID@1000,2200 [facility] Administration Atorvastatin Calcium 40 mg 08/24/17 22:00 08/25/17 20:23 Lipitor PO 40 mg QHS [facility] Administration Bisacodyl 10 mg 08/24/17 21:58 Dulcolax PO DAILY PRN Constipation Clonidine HCl 0.3 mg 08/28/17 10:00 Catapres-Tts3 TRANSDERM. FR [facility] Clopidogrel Bisulfate 75 mg 08/25/17 06:00 08/26/17 05:27 Plavix PO 75 mg DAILY [facility] Administration Doxazosin Mesylate 8 mg 08/24/17 22:00 08/25/17 20:23 Cardura PO 8 mg QHS [facility] Administration Ferrous Sulfate 325 mg 08/25/17 08:00 08/26/17 08:20 Ferrous Sulfate PO 325 mg DAILY@0800 [facility] Administration Finasteride 5 mg 08/25/17 06:00 08/26/17 05:30 Proscar PO 5 mg DAILY [facility] Administration Furosemide 80 mg 08/24/17 20:00 08/26/17 05:26 Lasix PO 80 mg BID@0600,1800 [facility] Administration Glimepiride 8 mg 08/25/17 08:00 08/26/17 08:20 Amaryl PO 8 mg BREAKFAST [facility] Administration Hydroxyzine Pamoate 25 mg 08/24/17 19:06 08/26/17 05:29 Vistaril Pamoate Capsule PO 25 mg TID PRN Administration ITCHING Insulin Detemir 30 units 08/24/17 22:00 08/26/17 07:24 Levemir (Bkc) SC 30 u BID [facility] Administration Losartan Potassium 100 mg 08/25/17 06:00 08/26/17 05:27 Cozaar PO 100 mg DAILY [facility] Administration Magnesium Oxide 800 mg 08/24/17 22:00 08/26/17 08:19 Mag-Ox 400 PO 800 mg BID@1000,2200 [facility] Administration Metformin HCl 500 mg 08/25/17 07:45 08/26/17 12:55 Glucophage PO 500 mg TIDCM [facility] Administration Metoprolol Tartrate 50 mg 08/24/17 22:00 08/26/17 08:20 Lopressor (Beta Kristel) PO 50 mg BID@1000,2200 [facility] Administration Multivitamins 1 tablet 08/25/17 08:00 08/26/17 08:20 Multivitamin PO 1 tablet DAILY@0800 [facility] Administration Nutritional Formula 1 packet 08/25/17 08:00 08/26/17 08:20 Rafael - Luce Flavor PO 1 packet BIDCM [facility] Administration Nystatin 1 applic 08/24/17 22:00 08/26/17 05:27 Mycostatin Powder TOPICAL 1 applicatio 0600,2200 [facility] Administration Protocol Oxycodone HCl 5 mg 08/24/17 19:06 08/26/17 05:29 Oxyir PO 5 mg Q4H PRN PRN Administration Moderate Pain (pain scale 4-5) Pantoprazole Sodium 20 mg 08/25/17 06:00 08/26/17 05:27 Protonix PO 20 mg DAILY [facility] Administration Polyethylene Glycol 17 gm 08/25/17 06:00 08/26/17 05:27 Miralax PO 17 gm DAILY [facility] Administration Fluticasone/Salmeterol 1 puff 08/25/17 06:00 08/26/17 05:25 Advair 250/50 Mcg Diskus INHALATION 1 puff Q12 [facility] Administration Senna/Docusate Sodium 2 tablet 08/24/17 22:00 08/26/17 05:29 Senokot-S, Kyung-Colace PO 2 tablet BID [facility] Administration Sertraline HCl 50 mg 08/24/17 22:00 08/25/17 20:26 Zoloft PO 50 mg QHS [facility] Administration Sertraline HCl 100 mg 08/25/17 06:00 08/26/17 05:29 Zoloft PO 100 mg DAILY [facility] Administration Spironolactone 25 mg 08/25/17 06:00 08/26/17 05:26 Aldactone PO 25 mg BID [facility] Administration Tuberculin PPD 5 tu 09/01/17 10:00 Tubersol, Aplisol, Ppd ID 09/01/17 10:01 X1 ONE Problem List (Last Updated 08/24/17 @ 10:41 by Shannon Gomez, HEALTH DIAGNOSTICS TEACHER-C) Shortness of breath (Acute) Acute on chronic diastolic heart failure (Acute) Bilateral lower leg cellulitis (Acute) Venous stasis dermatitis (Chronic) Anemia (Chronic) Osteoarthritis (Chronic) Coronary artery disease (Chronic) Chronic kidney disease (Chronic) Diabetes mellitus (Chronic) Lymphedema (Chronic) Hyperlipidemia (Chronic) Super obesity (Chronic) Sleep apnea (Chronic) Pulmonary embolism (Chronic) Gout (Chronic) Depression (Acute) Vital Signs Temp Pulse Resp BP Pulse Ox 97.9 F 64 22 H 130/51 H 92 08/26/17 15:31 08/26/17 15:31 08/26/17 15:31 08/26/17 15:31 08/26/17 15:31 Oxygen Flow Rate (L/min) 4 Oxygen Delivery Method Nasal Cannula Weight: 169.303 kg Body Mass Index (BMI) 57.3 Finger Stick Blood Glucose 116 Sodium 138 mmol/L (136-145) 08/26/17 05:15 Potassium 4.0 mmol/L (3.5-5.1) 08/26/17 05:15 Chloride 95 mmol/L (98-107) L 08/26/17 05:15 Carbon Dioxide 38.0 mmol/L (21.0-32.0) H 08/26/17 05:15 Anion Gap 5 (5-15) 08/26/17 05:15 BUN 42 mg/dL (7-18) H 08/26/17 05:15 Creatinine 1.44 mg/dL (0.70-1.30) H 08/26/17 05:15 Est GFR (MDRD) Af Amer 62 mL/min (>60) 08/26/17 05:15 Est GFR (MDRD) Non-Af 51 mL/min (>60) L 08/26/17 05:15 BUN/Creatinine Ratio 29.2 RATIO (10-20) H 08/26/17 05:15 Glucose 112 mg/dL (74-106) H 08/26/17 05:15 Assessment/Plan: Psychotropic Medications: Unnecessary Medications: Bowel Regimen: - Provider Comments Provider responsibility: Provider responsible to enter orders to implement recommendations Provider Comments to Recommendations by Pharmacy: Agree
--- NOTE | 2017-08-26 14:07 | PHA.CONS_ITS ---
<Joseph Hackett - Last Filed: 08/26/17 15:28> Progress Note - Pharmacy Subjective: [] Objective: Allergies naphazoline HCl [From Naphcon] Allergy (Severe, Verified 08/20/17 15:18) affected his breathing AFFECTED HIS BREATHING amlodipine besylate [From Norvasc] Allergy (Verified 08/20/17 15:18) Other dextromethorphan Allergy (Verified 08/20/17 15:18) Other levofloxacin [From Levaquin] Adverse Reaction (Mild, Verified 08/20/17 15:18) made me hyperactive made me hyperactive Home Medications Medication Instructions Recorded Allopurinol [Zyloprim] 300 mg PO DAILY 03/30/17 Atorvastatin Calcium [Lipitor] 40 mg PO QHS 03/30/17 Clonidine Patch [Catapres-Tts3] 0.3 mg TOPICAL FR 03/30/17 Clopidogrel Bisulfate [Plavix] 75 mg PO DAILY 03/30/17 Ferrous Sulfate 325 mg PO DAILY@0800 03/30/17 Finasteride [Proscar] 5 mg PO DAILY 03/30/17 Glimepiride [Amaryl] 8 mg PO BREAKFAST 03/30/17 Hydroxyzine HCl 25 mg PO TID PRN 03/30/17 Insulin Glargine [Lantus SoloStar 30 units PO BID 03/30/17 Pen] Lansoprazole 15 mg PO DAILY 03/30/17 Losartan Potassium 100 mg PO DAILY 03/30/17 Magnesium Oxide [Mag-Ox 400] 800 mg PO BID 03/30/17 Metformin HCl [Glucophage] 500 mg PO TID 03/30/17 Metoprolol Tartrate [Lopressor 50 mg PO BID 03/30/17 (beta kristel)] Multivitamins,Therapeutic 1 tab PO DAILY@0800 03/30/17 [Multivitamin] Sertraline HCl [Zoloft] 50 mg PO QHS 03/30/17 Spironolactone 25 mg PO BID 03/30/17 Terazosin HCl [Hytrin] 10 mg PO QHS 03/30/17 albuterol sulfate HFA 90 2 puff PO Q6H PRN PRN #18 g 08/05/17 mcg/actuation aerosol inhaler Albuterol Aerosols [Ventolin 2.5 mg INHALATION Q4H PRN 08/20/17 Aerosols] Fluticasone/Salmeterol [Advair 2 puff INHALATION Q12H 08/20/17 500-50 Diskus] Furosemide [Lasix] 80 mg PO BID 08/20/17 Sertraline HCl [Zoloft] 100 mg PO DAILY 08/20/17 Apixaban [Eliquis] 5 mg PO BID 08/24/17 Budesonide Aerosol [Pulmicort 0.5 mg INHALATION BID.RT 08/24/17 Respules] Oxycodone [Oxyir] 5 mg PO Q4H PRN PRN #10 tab 08/24/17 Psyllium [Metamucil] 1 packet PO DAILY PRN PRN packet 08/24/17 Senna/Docusate Sodium [Senokot-S] 2 tablet PO BID 08/24/17 Current Medications Generic Name Dose Route Start Last Admin Trade Name Freq PRN Reason Stop Dose Admin Acetaminophen 1,000 mg 08/24/17 21:58 Tylenol PO Q8H PRN PRN MILD PAIN (1-3/10) Albuterol Sulfate 2.5 mg 08/24/17 19:06 Ventolin Aerosols INHALATION Q4H PRN BREATHING Albuterol Sulfate 2 puff 08/24/17 19:06 Ventolin Hfa (Sp) INHALATION Q6H PRN PRN BREATHING Allopurinol 300 mg 08/25/17 08:00 08/26/17 08:20 Zyloprim PO 300 mg DAILY@0800 [facility] Administration Apixaban 5 mg 08/24/17 22:00 08/26/17 08:20 Eliquis PO 5 mg BID@1000,2200 [facility] Administration Atorvastatin Calcium 40 mg 08/24/17 22:00 08/25/17 20:23 Lipitor PO 40 mg QHS [facility] Administration Bisacodyl 10 mg 08/24/17 21:58 Dulcolax PO DAILY PRN Constipation Budesonide 0.5 mg 08/24/17 19:15 08/26/17 06:36 Pulmicort Aerosol INHALATION 0.5 mg BID.RT [facility] Administration Clonidine HCl 0.3 mg 08/28/17 10:00 Catapres-Tts3 TRANSDERM. FR [facility] Clopidogrel Bisulfate 75 mg 08/25/17 06:00 08/26/17 05:27 Plavix PO 75 mg DAILY [facility] Administration Doxazosin Mesylate 8 mg 08/24/17 22:00 08/25/17 20:23 Cardura PO 8 mg QHS [facility] Administration Ferrous Sulfate 325 mg 08/25/17 08:00 08/26/17 08:20 Ferrous Sulfate PO 325 mg DAILY@0800 [facility] Administration Finasteride 5 mg 08/25/17 06:00 08/26/17 05:30 Proscar PO 5 mg DAILY [facility] Administration Furosemide 80 mg 08/24/17 20:00 08/26/17 05:26 Lasix PO 80 mg BID@0600,1800 [facility] Administration Glimepiride 8 mg 08/25/17 08:00 08/26/17 08:20 Amaryl PO 8 mg BREAKFAST [facility] Administration Hydroxyzine Pamoate 25 mg 08/24/17 19:06 08/26/17 05:29 Vistaril Pamoate Capsule PO 25 mg TID PRN Administration ITCHING Insulin Detemir 30 units 08/24/17 22:00 08/26/17 07:24 Levemir (Bkc) SC 30 u BID [facility] Administration Losartan Potassium 100 mg 08/25/17 06:00 08/26/17 05:27 Cozaar PO 100 mg DAILY [facility] Administration Magnesium Oxide 800 mg 08/24/17 22:00 08/26/17 08:19 Mag-Ox 400 PO 800 mg BID@1000,2200 [facility] Administration Metformin HCl 500 mg 08/25/17 07:45 08/26/17 12:55 Glucophage PO 500 mg TIDCM [facility] Administration Metoprolol Tartrate 50 mg 08/24/17 22:00 08/26/17 08:20 Lopressor (Beta Kristel) PO 50 mg BID@1000,2200 [facility] Administration Multivitamins 1 tablet 08/25/17 08:00 08/26/17 08:20 Multivitamin PO 1 tablet DAILY@0800 [facility] Administration Nutritional Formula 1 packet 08/25/17 08:00 08/26/17 08:20 Rafael - [place] Flavor PO 1 packet BIDCM [facility] Administration Nystatin 1 applic 08/24/17 22:00 08/26/17 05:27 Mycostatin Powder TOPICAL 1 applicatio 0600,2200 [facility] Administration Protocol Oxycodone HCl 5 mg 08/24/17 19:06 08/26/17 05:29 Oxyir PO 5 mg Q4H PRN PRN Administration Moderate Pain (pain scale 4-5) Pantoprazole Sodium 20 mg 08/25/17 06:00 08/26/17 05:27 Protonix PO 20 mg DAILY [facility] Administration Polyethylene Glycol 17 gm 08/25/17 06:00 08/26/17 05:27 Miralax PO 17 gm DAILY [facility] Administration Fluticasone/Salmeterol 1 puff 08/25/17 06:00 08/26/17 05:25 Advair 250/50 Mcg Diskus INHALATION 1 puff Q12 [facility] Administration Senna/Docusate Sodium 2 tablet 08/24/17 22:00 08/26/17 05:29 Senokot-S, Kyung-Colace PO 2 tablet BID [facility] Administration Sertraline HCl 50 mg 08/24/17 22:00 08/25/17 20:26 Zoloft PO 50 mg QHS [facility] Administration Sertraline HCl 100 mg 08/25/17 06:00 08/26/17 05:29 Zoloft PO 100 mg DAILY [facility] Administration Spironolactone 25 mg 08/25/17 06:00 08/26/17 05:26 Aldactone PO 25 mg BID [facility] Administration Tuberculin PPD 5 tu 09/01/17 10:00 Tubersol, Aplisol, Ppd ID 09/01/17 10:01 X1 ONE Problem List (Last Updated 08/24/17 @ 10:41 by Shannon Gomez, DOCUMENTATION COORDINATOR-C) Shortness of breath (Acute) Acute on chronic diastolic heart failure (Acute) Bilateral lower leg cellulitis (Acute) Venous stasis dermatitis (Chronic) Anemia (Chronic) Osteoarthritis (Chronic) Coronary artery disease (Chronic) Chronic kidney disease (Chronic) Diabetes mellitus (Chronic) Lymphedema (Chronic) Hyperlipidemia (Chronic) Super obesity (Chronic) Sleep apnea (Chronic) Pulmonary embolism (Chronic) Gout (Chronic) Depression (Acute) Vital Signs Temp Pulse Resp BP Pulse Ox 97.8 F 66 20 H 140/60 H 95 08/25/17 15:48 08/26/17 08:20 08/26/17 06:36 08/26/17 08:20 08/26/17 06:36 Oxygen Flow Rate (L/min) 3.5 Oxygen Delivery Method Nasal Cannula Weight: 169.303 kg Body Mass Index (BMI) 57.3 Finger Stick Blood Glucose 116 Sodium 138 mmol/L (136-145) 04/04/18 05:15 Potassium 4.0 mmol/L (3.5-5.1) 08/26/17 05:15 Chloride 95 mmol/L (98-107) L 08/26/17 05:15 Carbon Dioxide 38.0 mmol/L (21.0-32.0) H 08/26/17 05:15 Anion Gap 5 (5-15) 08/26/17 05:15 BUN 42 mg/dL (7-18) H 08/26/17 05:15 Creatinine 1.44 mg/dL (0.70-1.30) H 08/26/17 05:15 Est GFR (MDRD) Af Amer 62 mL/min (>60) 08/26/17 05:15 Est GFR (MDRD) Non-Af 51 mL/min (>60) L 08/26/17 05:15 BUN/Creatinine Ratio 29.2 RATIO (10-20) H 08/26/17 05:15 Glucose 112 mg/dL (74-106) H 08/26/17 05:15 Assessment/Plan: 1) Pain APAP for mild pain, oxycodone for moderate pain. Continue to monitor prn medication use, daily pain scores. 2) CHF/CAD/HTN Spironolactone, metoprolol, losartan, furosemide, clopidogrel, clonidine patch, atorvastatin. BP/HR within goal ranges, K wnl, BUN/SCr elevated from baseline, HDL and TG not at goal, hepatic enzymes wnl. Continue to monitor BP/HR , renal function, electrolytes, lipids, enzymes, for chest pain. 3) DM2 Metformin, insulin detemir twice daily, glimepiride with breakfast. BGT < 180 mg/dl. Continue to monitor BGT, s/s hyper/hypoglycemia. 4) COPD Advair inhaler twice daily, albuterol inhaler as needed. Continue to monitor prn medication use, for exacerbation. 5) PE Apixaban twice daily. Hgb/Hct decreased slightly from baseline. Continue to monitor s/s bleeding/clot. 6) BPH Finasteride, doxazosin. Continue to monitor for symptoms. 7) Gout Allopurinol daily. Continue to monitor s/s gout. 8) GI Pantoprazole daily. Continue to monitor s/s GI distress. 9) Derm Nystatin powder topically, hydroxyzine for itching. Continue to monitor prn medication use. 10) Nutrition Rafael, multivitamin, MgOx, Fe. Continue to monitor clinically. Psychotropic Medications: 11) Depression Sertraline daily. Continue to monitor for s/s depression/anxiety. Unnecessary Medications: None Bowel Regimen: 12) Senna/s, PEG, prn bisacodyl. Continue to monitor prn medication use, for constipation/diarrhea. Date of Note:: 08/26/17 - Provider Comments Provider responsibility: Provider responsible to enter orders to implement recommendations <Teo Barr Chi - Last Filed: 08/26/17 16:45> Progress Note - Pharmacy Subjective: [] Objective: Allergies naphazoline HCl [From Naphcon] Allergy (Severe, Verified 08/20/17 15:18) affected his breathing AFFECTED HIS BREATHING amlodipine besylate [From Norvasc] Allergy (Verified 08/20/17 15:18) Other dextromethorphan Allergy (Verified 08/20/17 15:18) Other levofloxacin [From Levaquin] Adverse Reaction (Mild, Verified 08/20/17 15:18) made me hyperactive made me hyperactive Home Medications Medication Instructions Recorded Allopurinol [Zyloprim] 300 mg PO DAILY 03/30/17 Atorvastatin Calcium [Lipitor] 40 mg PO QHS 03/30/17 Clonidine Patch [Catapres-Tts3] 0.3 mg TOPICAL FR 03/30/17 Clopidogrel Bisulfate [Plavix] 75 mg PO DAILY 03/30/17 Ferrous Sulfate 325 mg PO DAILY@0800 03/30/17 Finasteride [Proscar] 5 mg PO DAILY 03/30/17 Glimepiride [Amaryl] 8 mg PO BREAKFAST 03/30/17 Hydroxyzine HCl 25 mg PO TID PRN 03/30/17 Insulin Glargine [Lantus SoloStar 30 units PO BID 03/30/17 Pen] Lansoprazole 15 mg PO DAILY 03/30/17 Losartan Potassium 100 mg PO DAILY 03/30/17 Magnesium Oxide [Mag-Ox 400] 800 mg PO BID 03/30/17 Metformin HCl [Glucophage] 500 mg PO TID 03/30/17 Metoprolol Tartrate [Lopressor 50 mg PO BID 03/30/17 (beta kristel)] Multivitamins,Therapeutic 1 tab PO DAILY@0800 03/30/17 [Multivitamin] Sertraline HCl [Zoloft] 50 mg PO QHS 03/30/17 Spironolactone 25 mg PO BID 03/30/17 Terazosin HCl [Hytrin] 10 mg PO QHS 03/30/17 albuterol sulfate HFA 90 2 puff PO Q6H PRN PRN #18 g 08/05/17 mcg/actuation aerosol inhaler Albuterol Aerosols [Ventolin 2.5 mg INHALATION Q4H PRN 08/20/17 Aerosols] Fluticasone/Salmeterol [Advair 2 puff INHALATION Q12H 08/20/17 500-50 Diskus] Furosemide [Lasix] 80 mg PO BID 08/20/17 Sertraline HCl [Zoloft] 100 mg PO DAILY 08/20/17 Apixaban [Eliquis] 5 mg PO BID 08/24/17 Budesonide Aerosol [Pulmicort 0.5 mg INHALATION BID.RT 08/24/17 Respules] Oxycodone [Oxyir] 5 mg PO Q4H PRN PRN #10 tab 08/24/17 Psyllium [Metamucil] 1 packet PO DAILY PRN PRN packet 08/24/17 Senna/Docusate Sodium [Senokot-S] 2 tablet PO BID 08/24/17 Current Medications Generic Name Dose Route Start Last Admin Trade Name Freq PRN Reason Stop Dose Admin Acetaminophen 1,000 mg 08/24/17 21:58 Tylenol PO Q8H PRN PRN MILD PAIN (1-3/10) Albuterol Sulfate 2 puff 08/24/17 19:06 Ventolin Hfa (Sp) INHALATION Q6H PRN PRN BREATHING Allopurinol 300 mg 08/25/17 08:00 08/26/17 08:20 Zyloprim PO 300 mg DAILY@0800 [facility] Administration Apixaban 5 mg 08/24/17 22:00 08/26/17 08:20 Eliquis PO 5 mg BID@1000,2200 [facility] Administration Atorvastatin Calcium 40 mg 08/24/17 22:00 08/25/17 20:23 Lipitor PO 40 mg QHS [facility] Administration Bisacodyl 10 mg 08/24/17 21:58 Dulcolax PO DAILY PRN Constipation Clonidine HCl 0.3 mg 08/28/17 10:00 Catapres-Tts3 TRANSDERM. FR [facility] Clopidogrel Bisulfate 75 mg 08/25/17 06:00 08/26/17 05:27 Plavix PO 75 mg DAILY [facility] Administration Doxazosin Mesylate 8 mg 08/24/17 22:00 08/25/17 20:23 Cardura PO 8 mg QHS [facility] Administration Ferrous Sulfate 325 mg 08/25/17 08:00 08/26/17 08:20 Ferrous Sulfate PO 325 mg DAILY@0800 [facility] Administration Finasteride 5 mg 08/25/17 06:00 08/26/17 05:30 Proscar PO 5 mg DAILY [facility] Administration Furosemide 80 mg 08/24/17 20:00 08/26/17 05:26 Lasix PO 80 mg BID@0600,1800 [facility] Administration Glimepiride 8 mg 08/25/17 08:00 08/26/17 08:20 Amaryl PO 8 mg BREAKFAST [facility] Administration Hydroxyzine Pamoate 25 mg 08/24/17 19:06 08/26/17 05:29 Vistaril Pamoate Capsule PO 25 mg TID PRN Administration ITCHING Insulin Detemir 30 units 08/24/17 22:00 08/26/17 07:24 Levemir (Bkc) SC 30 u BID [facility] Administration Losartan Potassium 100 mg 08/25/17 06:00 08/26/17 05:27 Cozaar PO 100 mg DAILY [facility] Administration Magnesium Oxide 800 mg 08/24/17 22:00 08/26/17 08:19 Mag-Ox 400 PO 800 mg BID@1000,2200 [facility] Administration Metformin HCl 500 mg 08/25/17 07:45 08/26/17 12:55 Glucophage PO 500 mg TIDCM [facility] Administration Metoprolol Tartrate 50 mg 08/24/17 22:00 08/26/17 08:20 Lopressor (Beta Kristel) PO 50 mg BID@1000,2200 [facility] Administration Multivitamins 1 tablet 08/25/17 08:00 08/26/17 08:20 Multivitamin PO 1 tablet DAILY@0800 [facility] Administration Nutritional Formula 1 packet 08/25/17 08:00 08/26/17 08:20 Rafael - [place] Flavor PO 1 packet BIDCM [facility] Administration Nystatin 1 applic 08/24/17 22:00 08/26/17 05:27 Mycostatin Powder TOPICAL 1 applicatio 0600,2200 [facility] Administration Protocol Oxycodone HCl 5 mg 08/24/17 19:06 08/26/17 05:29 Oxyir PO 5 mg Q4H PRN PRN Administration Moderate Pain (pain scale 4-5) Pantoprazole Sodium 20 mg 08/25/17 06:00 08/26/17 05:27 Protonix PO 20 mg DAILY [facility] Administration Polyethylene Glycol 17 gm 08/25/17 06:00 08/26/17 05:27 Miralax PO 17 gm DAILY [facility] Administration Fluticasone/Salmeterol 1 puff 08/25/17 06:00 08/26/17 05:25 Advair 250/50 Mcg Diskus INHALATION 1 puff Q12 [facility] Administration Senna/Docusate Sodium 2 tablet 08/24/17 22:00 08/26/17 05:29 Senokot-S, Kyung-Colace PO 2 tablet BID [facility] Administration Sertraline HCl 50 mg 08/24/17 22:00 08/25/17 20:26 Zoloft PO 50 mg QHS [facility] Administration Sertraline HCl 100 mg 08/25/17 06:00 08/26/17 05:29 Zoloft PO 100 mg DAILY [facility] Administration Spironolactone 25 mg 08/25/17 06:00 08/26/17 05:26 Aldactone PO 25 mg BID [facility] Administration Tuberculin PPD 5 tu 09/01/17 10:00 Tubersol, Aplisol, Ppd ID 09/01/17 10:01 X1 ONE Problem List (Last Updated 08/24/17 @ 10:41 by Shannon Gomez, DOCUMENTATION COORDINATOR-C) Shortness of breath (Acute) Acute on chronic diastolic heart failure (Acute) Bilateral lower leg cellulitis (Acute) Venous stasis dermatitis (Chronic) Anemia (Chronic) Osteoarthritis (Chronic) Coronary artery disease (Chronic) Chronic kidney disease (Chronic) Diabetes mellitus (Chronic) Lymphedema (Chronic) Hyperlipidemia (Chronic) Super obesity (Chronic) Sleep apnea (Chronic) Pulmonary embolism (Chronic) Gout (Chronic) Depression (Acute) Vital Signs Temp Pulse Resp BP Pulse Ox 97.9 F 64 22 H 130/51 H 92 08/26/17 15:31 08/26/17 15:31 08/26/17 15:31 08/26/17 15:31 08/26/17 15:31 Oxygen Flow Rate (L/min) 4 Oxygen Delivery Method Nasal Cannula Weight: 169.303 kg Body Mass Index (BMI) 57.3 Finger Stick Blood Glucose 116 Sodium 138 mmol/L (136-145) 08/26/17 05:15 Potassium 4.0 mmol/L (3.5-5.1) 08/26/17 05:15 Chloride 95 mmol/L (98-107) L 08/26/17 05:15 Carbon Dioxide 38.0 mmol/L (21.0-32.0) H 08/26/17 05:15 Anion Gap 5 (5-15) 08/26/17 05:15 BUN 42 mg/dL (7-18) H 08/26/17 05:15 Creatinine 1.44 mg/dL (0.70-1.30) H 08/26/17 05:15 Est GFR (MDRD) Af Amer 62 mL/min (>60) 08/26/17 05:15 Est GFR (MDRD) Non-Af 51 mL/min (>60) L 08/26/17 05:15 BUN/Creatinine Ratio 29.2 RATIO (10-20) H 08/26/17 05:15 Glucose 112 mg/dL (74-106) H 08/26/17 05:15 Assessment/Plan: Psychotropic Medications: Unnecessary Medications: Bowel Regimen: - Provider Comments Provider responsibility: Provider responsible to enter orders to implement recommendations Provider Comments to Recommendations by Pharmacy: Agree
[2017-08-26 15:31] VITALS: BP 130/51; PULSE 64; RESP 22; TEMP 36.6; O2SAT 92
[2017-08-26 16:50] LABS: Bedside Glucose 190 mg/dL (70-110)
[2017-08-26 20:30] VITALS: PULSE 76
[2017-08-26] MEDS: Atorvastatin Calcium 40 MG Tablet PO (21:04)
[2017-08-26 21:05] VITALS: BP 138/60; PULSE 60
[2017-08-26 21:06] LABS: Bedside Glucose 151 mg/dL (70-110)
[2017-08-26] MEDS: Doxazosin 4 MG Tablet 8 MG PO (21:06)
[2017-08-26] MEDS: Sertraline 50 MG Tablet PO (21:08)
[2017-08-27] MEDS: Polyethylene Glycol 3350 17 GM PACKET PO (04:50)
[2017-08-27] MEDS: Losartan Potassium 100 MG Tablet PO (04:51)
[2017-08-27] MEDS: Finasteride 5 MG Tablet PO (04:51)
[2017-08-27] MEDS: Spironolactone 25 MG Tablet PO ×2 (04:51→16:15)
[2017-08-27] MEDS: Senna/Docusate Sodium 1 Tablet 2 TABLET PO ×3 (04:51→16:15)
[2017-08-27] MEDS: Pantoprazole Sodium 20 MG Tablet PO (04:51)
[2017-08-27] MEDS: Clopidogrel Bisulfate 75 MG Tablet PO (04:51)
[2017-08-27] MEDS: Furosemide 80 MG Tablet PO ×2 (04:51→16:15)
[2017-08-27] MEDS: Sertraline 100 MG Tablet PO (04:52)
[2017-08-27] MEDS: Nystatin Powder 15gm Bottle 1 APPLIC TOPICAL ×2 (04:52→21:37)
[2017-08-27 06:46] LABS: Bedside Glucose 124 mg/dL (70-110)
[2017-08-27] MEDS: Multivitamins,Therapeutic Tablet 1 TABLET PO (08:11)
[2017-08-27] MEDS: Ferrous Sulfate 325 MG Tablet PO (08:12)
[2017-08-27] MEDS: Glimepiride 4 MG Tablet 8 MG PO (08:12)
[2017-08-27 09:14] VITALS: PULSE 85
[2017-08-27] MEDS: Magnesium Oxide 400 MG Tablet 800 MG PO ×2 (09:14→21:24)
[2017-08-27] MEDS: APIXABAN 5 MG TABLET PO ×2 (09:14→21:25)
[2017-08-27] MEDS: Metoprolol Tartrate 50 MG Tablet PO ×2 (09:14→21:27)
[2017-08-27] MEDS: Allopurinol 300 MG Tablet PO (09:14)
[2017-08-27 11:30] LABS: Bedside Glucose 164 mg/dL (70-110)
[2017-08-27 13:51] VITALS: BP 132/52; PULSE 56; RESP 22; TEMP 35.9; O2SAT 97
[2017-08-27 13:52] VITALS: O2SAT 95
[2017-08-27 17:01] LABS: Bedside Glucose 191 mg/dL (70-110)
[2017-08-27 21:00] LABS: Bedside Glucose 180 mg/dL (70-110)
[2017-08-27] MEDS: Sertraline 50 MG Tablet PO (21:23)
[2017-08-27] MEDS: Atorvastatin Calcium 40 MG Tablet PO (21:24)
[2017-08-27] MEDS: Doxazosin 4 MG Tablet 8 MG PO (21:24)
[2017-08-27 21:27] VITALS: BP 144/53; PULSE 64
[2017-08-27 21:32] VITALS: O2SAT 98
[2017-08-28] MEDS: Polyethylene Glycol 3350 17 GM PACKET PO (06:22)
[2017-08-28] MEDS: Clopidogrel Bisulfate 75 MG Tablet PO (06:23)
[2017-08-28] MEDS: Furosemide 80 MG Tablet PO ×2 (06:23→16:57)
[2017-08-28] MEDS: Spironolactone 25 MG Tablet PO ×2 (06:24→16:57)
[2017-08-28] MEDS: Losartan Potassium 100 MG Tablet PO (06:24)
[2017-08-28] MEDS: Nystatin Powder 15gm Bottle 1 APPLIC TOPICAL ×2 (06:24→21:56)
[2017-08-28] MEDS: Pantoprazole Sodium 20 MG Tablet PO (06:24)
[2017-08-28] MEDS: Finasteride 5 MG Tablet PO (06:24)
[2017-08-28] MEDS: Sertraline 100 MG Tablet PO (06:30)
[2017-08-28 06:40] LABS: Bedside Glucose 134 mg/dL (70-110)
[2017-08-28] MEDS: Multivitamins,Therapeutic Tablet 1 TABLET PO (08:04)
[2017-08-28] MEDS: Ferrous Sulfate 325 MG Tablet PO (08:04)
[2017-08-28] MEDS: Glimepiride 4 MG Tablet 8 MG PO (08:04)
[2017-08-28 09:15] VITALS: O2SAT 94
[2017-08-28] MEDS: Magnesium Oxide 400 MG Tablet 800 MG PO ×2 (11:19→21:56)
[2017-08-28] MEDS: APIXABAN 5 MG TABLET PO ×2 (11:20→21:54)
[2017-08-28 11:37] VITALS: BP 108/44; PULSE 59
[2017-08-28 11:46] LABS: Bedside Glucose 156 mg/dL (70-110)
--- NOTE | 2017-08-28 15:04 | HP.PCM_ITS ---
Problem List (1) Ulcer of right lower extremity with fat layer exposed Status: Chronic (2) Ulcer of left lower extremity with fat layer exposed Status: Chronic (3) Bilateral leg edema Status: Chronic (4) Tinea unguium Status: Chronic (5) Diabetes mellitus with neuropathy Status: Chronic Qualifiers: Diabetes mellitus type: type 2 (6) Delayed wound healing Status: Chronic History of Present Illness Date of Admission: 08/28/17 - date of podiatry evaluation Chief Complaint: long thick toenails. Right and left leg wounds The patient is a 72 year old M bedside for bilateral lower extremity ulcers that have been present for an extended period of time. He has chronic swelling. He reports he is been taking additional diuresis medication, wear his Juan wraps, and tries to elevate his legs for edema control. He sees his primary care physician for wound care and was discharged from the wound care center previously. He also complains he has long thick toenails which he does not feel safe performing on his own. He asked for help today. She has diabetic neuropathy with loss of sensation and rest paresthesias. He was seen in the transitional care unit today. Past Medical History Past Medical History (Chronic Problems): Chronic Problems (Last Updated 08/24/17 @ 10:41 by Shannon Gomez, ERIC-C) Venous stasis dermatitis (Chronic) Anemia (Chronic) Osteoarthritis (Chronic) Coronary artery disease (Chronic) Chronic kidney disease (Chronic) Diabetes mellitus (Chronic) Lymphedema (Chronic) Hyperlipidemia (Chronic) Super obesity (Chronic) Sleep apnea (Chronic) Pulmonary embolism (Chronic) Gout (Chronic) Ulcer of right lower extremity with fat layer exposed (Chronic) Ulcer of left lower extremity with fat layer exposed (Chronic) Bilateral leg edema (Chronic) Tinea unguium (Chronic) Diabetes mellitus with neuropathy (Chronic) Delayed wound healing (Chronic) CKD (chronic kidney disease), stage II (Chronic) Wheezing (Chronic) MIKO (obstructive sleep apnea) (Chronic) HTN (hypertension) (Chronic) BPH (benign prostatic hypertrophy) (Chronic) Tinea unguium (Chronic) Diabetes mellitus with neuropathy (Chronic) Leg swelling (Chronic) Lymphedema of leg (Chronic) Multiple excoriations (Chronic) Asthma (Chronic) COPD (chronic obstructive pulmonary disease) (Chronic) Arthritis (Chronic) Immobility (Chronic) 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 Patient was educated on the signs and symptoms of bleeding as such as hemoptysis, hematemesis, hematochezia or melena stools. Patient has been advised to watch for these symptoms contact the office if they present. Follow-up with Dr. Clay in approximately 8 weeks as previously scheduled. Adynamic ileus (Chronic) Ventral hernia (Chronic) Hypoglycemia (Chronic) Peripheral neuropathy (Chronic) Chronic anemia (Chronic) Benign essential hypertension (Chronic) Benign prostatic hypertrophy without urinary obstruction (Chronic) CKD (chronic kidney disease), stage II (Chronic) CHF (congestive heart failure) (Chronic) CAD (coronary artery disease) (Chronic) Type II diabetes mellitus (Chronic) GERD (gastroesophageal reflux disease) (Chronic) Hypercholesteremia (Chronic) Morbid obesity (Chronic) Pulmonary hypertension (Chronic) H/O aortic valve replacement (Chronic) S/P AAA repair (Chronic) Venous insufficiency (Chronic) Tinea unguium (Chronic) Allergies naphazoline HCl [From Naphcon] Allergy (Severe, Verified 08/20/17 15:18) affected his breathing AFFECTED HIS BREATHING amlodipine besylate [From Norvasc] Allergy (Verified 08/20/17 15:18) Other dextromethorphan Allergy (Verified 08/20/17 15:18) Other levofloxacin [From Levaquin] Adverse Reaction (Mild, Verified 08/20/17 15:18) made me hyperactive made me hyperactive Home Medications: Ambulatory Orders Medication Instructions Recorded Allopurinol [Zyloprim] 300 mg PO DAILY 03/30/17 Atorvastatin Calcium [Lipitor] 40 mg PO QHS 03/30/17 Clonidine Patch [Catapres-Tts3] 0.3 mg TOPICAL FR 03/30/17 Clopidogrel Bisulfate [Plavix] 75 mg PO DAILY 03/30/17 Ferrous Sulfate 325 mg PO DAILY@0800 03/30/17 Finasteride [Proscar] 5 mg PO DAILY 03/30/17 Glimepiride [Amaryl] 8 mg PO BREAKFAST 03/30/17 Hydroxyzine HCl 25 mg PO TID PRN 03/30/17 Insulin Glargine [Lantus SoloStar 30 units PO BID 03/30/17 Pen] Lansoprazole 15 mg PO DAILY 03/30/17 Losartan Potassium 100 mg PO DAILY 03/30/17 Magnesium Oxide [Mag-Ox 400] 800 mg PO BID 03/30/17 Metformin HCl [Glucophage] 500 mg PO TID 03/30/17 Metoprolol Tartrate [Lopressor 50 mg PO BID 03/30/17 (beta maryam)] Multivitamins,Therapeutic 1 tab PO DAILY@0800 03/30/17 [Multivitamin] Sertraline HCl [Zoloft] 50 mg PO QHS 03/30/17 Spironolactone 25 mg PO BID 03/30/17 Terazosin HCl [Hytrin] 10 mg PO QHS 03/30/17 albuterol sulfate HFA 90 2 puff PO Q6H PRN PRN #18 g 08/05/17 mcg/actuation aerosol inhaler Albuterol Aerosols [Ventolin 2.5 mg INHALATION Q4H PRN 08/20/17 Aerosols] Fluticasone/Salmeterol [Advair 2 puff INHALATION Q12H 08/20/17 500-50 Diskus] Furosemide [Lasix] 80 mg PO BID 08/20/17 Sertraline HCl [Zoloft] 100 mg PO DAILY 08/20/17 Apixaban [Eliquis] 5 mg PO BID 08/24/17 Budesonide Aerosol [Pulmicort 0.5 mg INHALATION BID.RT 08/24/17 Respules] Oxycodone [Oxyir] 5 mg PO Q4H PRN PRN #10 tab 08/24/17 Psyllium [Metamucil] 1 packet PO DAILY PRN PRN packet 08/24/17 Senna/Docusate Sodium [Senokot-S] 2 tablet PO BID 08/24/17 Surgical History: - - He has a bioprosthetic aortic valve replacement, abdominal aortic aneurysm repair '05, recent surgery to repair a large ventral hernia. Psychiatric History: Anxiety, Depression Lives: Spouse/ Significant Other Smoking Status: Former smoker Tobacco Use: Non-smoker Alcohol: None Drugs: None - *Family History Maternal History Items: Hypertension, - - Patient's father at the age of 94 from old age. Patient's mother at age of 87 with a history of hyperlipidemia and hypertension. Paternal History Items: Hypertension Review of Systems Constitutional: Denies: Chills, Fever Cardiovascular: Reports: Edema. Denies: Claudication Gastrointestinal: Denies: Nausea, Vomiting Skin: Reports: Skin Changes, Wounds Neurological: Reports: Numbness, Tingling VTE Information - Inpt Only VTE Present on Admission: No VTE Pharm Prophylaxis ordered?: Yes Patient Problems: Active and Suspected Problems (Last Updated 08/24/17 @ 10:41 by Shannon Gomez , ANIMAL NUTRITION CONSULTANT-C) Shortness of breath (Acute) Acute on chronic diastolic heart failure (Acute) Bilateral lower leg cellulitis (Acute) Depression (Acute) - Physical Exam General: Alert, Oriented x3, Cooperative HEENT: Atraumatic Extremities: No cyanosis, Capillary Refill Less than 3 Seconds, No Calf Tenderness - Negative Tj and Richardson sign bilateral., Diminished Peripheral Pulses, Edema Skin: Ulcer/ Wound - His skin is atrophic, hairless, and with peeling bilateral lower extremities. His toenails bilateral 1, 2, 3, 4, 5 are long, thick, dystrophic, and possible debris and in curvature to medial lateral borders. The right lateral leg wound cluster measures 6 cm x 8 cm x 0.1 cm (5% ) and post debridement 6.1 cm x 8.1 cm x 0.1 cm (5%). His right lateral proximal leg measures 3.8 cm x 3.8 cm x 0.1 cm and post debridement measurement is 3.9 cm x 3.9 cm x 0.1 cm. All of the wound beds are pale granular with interspersed fibrous tissue. There is no deep tissue exposed. There is no maceration, erythema, streaking, bogginess, crepitus, or signs of infection or necrosis to bilateral lower extremities. There is no interdigital maceration. Musculoskeletal: No Tenderness to Palpation of Joints or Extremities, Muscle Wasting, - - Active active range of motion digits ?10 Neurological: - - Lack of epicritic sensation light touch bilateral Psych/Mental Status: Normal Affect, Appropriate Vital Signs Temp Pulse Resp BP Pulse Ox 96.7 F L 59 L 22 H 108/44 L 94 08/27/17 13:51 08/28/17 11:37 08/27/17 13:51 08/28/17 11:37 08/28/17 09:15 Oxygen Flow Rate (L/min) 3.5 Oxygen Delivery Method Nasal Cannula Weight: 169.95 kg Body Mass Index (BMI) 57.3 Finger Stick Blood Glucose 116 Intake and Output for Last 24 Hours 08/26/17 08/27/17 08/28/17 23:59 23:59 23:59 Intake Total 1140 / 1140 1080 / 1080 600 / 600 Output Total 700 / 700 1025 / 1025 825 / 825 Balance 440 / 440 55 / 55 -225 / -225 POC Glucose 08/28/17 08/28/17 08/27/17 11:36 06:19 20:58 POC Glucose 156 H 134 H 180 H 08/27/17 16:47 POC Glucose 191 H Assessment/Plan Active and Suspected Problems (Last Updated 08/24/17 @ 10:41 by Shannon Gomez , ANIMAL NUTRITION CONSULTANT-C) Shortness of breath (Acute) Acute on chronic diastolic heart failure (Acute) Bilateral lower leg cellulitis (Acute) Depression (Acute) Tinea unguium versus onychauxis Right leg ulcer with fat layer exposed, no infection (grade 1) Left leg ulcer with fat layer exposed, no infection (grade 2) Diabetes with neuropathy Lower extremity edema Malnutrition suspected Delayed healing Debility and fall risk Other comorbidities I reviewed and discussed his care plan today. His toenails were debrided with a nail nipper after verbal consent was obtained; bilateral 1, 2, 3, 4, 5. This was performed without incident and he tolerated this well. He understands there are various treatment options for the thickened long toenails and he elects to proceed with the palliative care option at this time. I also utilize a 15 blade to debride his ulcers as noted in the physical exam section. Verbal consent was obtained and he did not require local anesthetic due to his neuropathy. He tolerated this well. Pressure was applied to maintain hemostasis. The debridement was performed in a subcutaneous excisional manner to remove nonviable and devitalized subcutaneous tissue, fibrous tissue, biofilm , and slough. A dressing consisting of Aquacel Ag, gauze, Kerlix, and Juan wrap was applied. To change daily. Prior to dressing application lotion was also applied to the periwound area to improve skin integrity and to prevent further breakdown. The basic wound care principles were reviewed including keeping this site infection free, decreasing pressure by better controlling his edema, continuing with good nutritious intake by controlling sugar levels and taking Rafael nutritional supplement, and weekly debridements. He was reassured there are no local signs of infection. To continue with diuresis in light elevation to better control leg edema. Thank you for the consultation. I will continue to follow him closely in house. Please do not hesitate to call if you have any questions. Elenita Rogers DPM [facility] [phone]
[2017-08-28 15:14] VITALS: BP 105/69; PULSE 66; RESP 22; TEMP 36.9; O2SAT 97
[2017-08-28] MEDS: Senna/Docusate Sodium 1 Tablet 2 TABLET PO (16:56)
[2017-08-28 17:01] LABS: Bedside Glucose 171 mg/dL (70-110)
[2017-08-28 21:21] LABS: Bedside Glucose 200 mg/dL (70-110)
[2017-08-28] MEDS: Doxazosin 4 MG Tablet 8 MG PO (21:53)
[2017-08-28 21:54] VITALS: BP 141/65; PULSE 67
[2017-08-28] MEDS: Metoprolol Tartrate 50 MG Tablet PO (21:54)
[2017-08-28] MEDS: Atorvastatin Calcium 40 MG Tablet PO (21:55)
[2017-08-28] MEDS: Sertraline 50 MG Tablet PO (21:57)
[2017-08-29] MEDS: Furosemide 80 MG Tablet PO ×2 (06:54→17:03)
[2017-08-29] MEDS: Sertraline 100 MG Tablet PO ×3 (06:54→20:57)
[2017-08-29] MEDS: Spironolactone 25 MG Tablet PO ×2 (06:54→17:04)
[2017-08-29] MEDS: Clopidogrel Bisulfate 75 MG Tablet PO (06:54)
[2017-08-29] MEDS: Losartan Potassium 100 MG Tablet PO (06:54)
[2017-08-29] MEDS: Pantoprazole Sodium 20 MG Tablet PO (06:54)
[2017-08-29] MEDS: Finasteride 5 MG Tablet PO (06:54)
[2017-08-29] MEDS: Polyethylene Glycol 3350 17 GM PACKET PO (06:54)
[2017-08-29] MEDS: Senna/Docusate Sodium 1 Tablet 2 TABLET PO ×2 (06:54→17:03)
[2017-08-29] MEDS: Nystatin Powder 15gm Bottle 1 APPLIC TOPICAL ×2 (06:55→20:57)
[2017-08-29 07:01] LABS: Bedside Glucose 129 mg/dL (70-110)
[2017-08-29] MEDS: Ferrous Sulfate 325 MG Tablet PO (08:28)
[2017-08-29] MEDS: Allopurinol 300 MG Tablet PO (08:28)
[2017-08-29] MEDS: Multivitamins,Therapeutic Tablet 1 TABLET PO (08:28)
[2017-08-29] MEDS: Glimepiride 4 MG Tablet 8 MG PO (08:28)
[2017-08-29 09:37] VITALS: BP 142/58; PULSE 63
[2017-08-29 09:38] VITALS: BP 142/58; PULSE 63
[2017-08-29] MEDS: Magnesium Oxide 400 MG Tablet 800 MG PO ×2 (09:38→20:56)
[2017-08-29] MEDS: Metoprolol Tartrate 50 MG Tablet PO (09:38)
[2017-08-29] MEDS: APIXABAN 5 MG TABLET PO ×2 (09:38→20:56)
[2017-08-29 10:00] VITALS: PULSE 57; RESP 18; O2SAT 97
[2017-08-29 11:40] LABS: Bedside Glucose 178 mg/dL (70-110)
--- NOTE | 2017-08-29 14:15 | NURSING ---
VERIFIED BP/HR PARAMETERS WITH DR. ALEJANDRE. THE FOLLOWING ARE TO HAVE PARAMETERS: ALDACTONE, CARDURA, LOPRESSOR, COZAAR. THE CATAPRES PATCH IS NOT TO HAVE PARAMETERS. Azul GAR LPN NOTIFIED THAT R' NEED PATCH APPLIED SINCE IT WAS NOT GIVEN YESTERDAY.
[2017-08-29 16:00] VITALS: BP 113/43; PULSE 66; RESP 19; TEMP 36.8; O2SAT 99
[2017-08-29 17:01] LABS: Bedside Glucose 209 mg/dL (70-110)
--- NOTE | 2017-08-29 17:12 | NURSING ---
THIS NURSE PLACED CATAPRES PATCH TO LEFT CHEST.
[2017-08-29] MEDS: Atorvastatin Calcium 40 MG Tablet PO (20:56)
[2017-08-29] MEDS: Doxazosin 4 MG Tablet 8 MG PO (20:56)
--- NOTE | 2017-08-29 20:59 | NURSING ---
bP 140/70 8mg cardura given per Doctor order
[2017-08-29] MEDS: Sertraline 50 MG Tablet PO (21:13)
[2017-08-29 21:31] LABS: Bedside Glucose 225 mg/dL (70-110)
[2017-08-30 06:51] LABS: Bedside Glucose 154 mg/dL (70-110)
[2017-08-30] MEDS: Spironolactone 25 MG Tablet PO ×2 (06:53→17:16)
[2017-08-30] MEDS: Losartan Potassium 100 MG Tablet PO (06:53)
[2017-08-30] MEDS: Senna/Docusate Sodium 1 Tablet 2 TABLET PO ×2 (06:53→17:15)
[2017-08-30] MEDS: Pantoprazole Sodium 20 MG Tablet PO (06:53)
[2017-08-30] MEDS: Clopidogrel Bisulfate 75 MG Tablet PO (06:53)
[2017-08-30] MEDS: Furosemide 80 MG Tablet PO ×2 (06:54→17:16)
[2017-08-30] MEDS: Finasteride 5 MG Tablet PO (06:54)
[2017-08-30 08:00] VITALS: O2SAT 90
[2017-08-30] MEDS: Ferrous Sulfate 325 MG Tablet PO (08:22)
[2017-08-30] MEDS: Multivitamins,Therapeutic Tablet 1 TABLET PO (08:22)
[2017-08-30] MEDS: Allopurinol 300 MG Tablet PO (08:22)
[2017-08-30] MEDS: Glimepiride 4 MG Tablet 8 MG PO (08:22)
[2017-08-30 10:11] VITALS: BP 131/53; PULSE 72
[2017-08-30] MEDS: Metoprolol Tartrate 50 MG Tablet PO ×2 (10:11→22:00)
[2017-08-30] MEDS: Magnesium Oxide 400 MG Tablet 800 MG PO ×2 (10:11→21:59)
[2017-08-30] MEDS: APIXABAN 5 MG TABLET PO ×2 (10:11→21:57)
[2017-08-30 10:12] VITALS: BP 131/53; PULSE 72
[2017-08-30 11:21] LABS: Bedside Glucose 169 mg/dL (70-110)
[2017-08-30 15:54] VITALS: PULSE 63; RESP 18; O2SAT 97
--- NOTE | 2017-08-30 15:59 | NURSING ---
CATAPRES PATCH VERIFIED TO LEFT CHEST.
[2017-08-30 16:00] VITALS: BP 119/62; PULSE 63; RESP 18; TEMP 37.1; O2SAT 96
[2017-08-30 17:31] LABS: Bedside Glucose 182 mg/dL (70-110)
[2017-08-30 21:26] LABS: Bedside Glucose 199 mg/dL (70-110)
[2017-08-30] MEDS: Sertraline 50 MG Tablet PO (21:57)
[2017-08-30] MEDS: Nystatin Powder 15gm Bottle 1 APPLIC TOPICAL (21:57)
[2017-08-30] MEDS: Atorvastatin Calcium 40 MG Tablet PO (21:57)
[2017-08-30 22:00] VITALS: BP 137/60; PULSE 68
[2017-08-30] MEDS: Doxazosin 4 MG Tablet 8 MG PO (22:00)
[2017-08-31] MEDS: Nystatin Powder 15gm Bottle 1 APPLIC TOPICAL ×2 (05:59→21:31)
[2017-08-31] MEDS: Finasteride 5 MG Tablet PO (06:05)
[2017-08-31] MEDS: Senna/Docusate Sodium 1 Tablet 2 TABLET PO ×2 (06:05→17:41)
[2017-08-31] MEDS: Spironolactone 25 MG Tablet PO ×2 (06:05→17:41)
[2017-08-31] MEDS: Losartan Potassium 100 MG Tablet PO (06:05)
[2017-08-31] MEDS: Clopidogrel Bisulfate 75 MG Tablet PO (06:05)
[2017-08-31] MEDS: Polyethylene Glycol 3350 17 GM PACKET PO (06:06)
[2017-08-31] MEDS: Pantoprazole Sodium 20 MG Tablet PO (06:06)
[2017-08-31] MEDS: Furosemide 80 MG Tablet PO ×2 (06:10→17:41)
[2017-08-31 06:40] LABS: Bedside Glucose 102 mg/dL (70-110)
[2017-08-31 07:58] VITALS: BP 118/76; PULSE 72
[2017-08-31] MEDS: Metoprolol Tartrate 50 MG Tablet PO ×2 (07:58→21:36)
[2017-08-31] MEDS: Ferrous Sulfate 325 MG Tablet PO (07:59)
[2017-08-31] MEDS: Allopurinol 300 MG Tablet PO (07:59)
[2017-08-31] MEDS: APIXABAN 5 MG TABLET PO ×2 (07:59→21:35)
[2017-08-31] MEDS: Multivitamins,Therapeutic Tablet 1 TABLET PO (07:59)
[2017-08-31] MEDS: Glimepiride 4 MG Tablet 8 MG PO (07:59)
[2017-08-31 08:04] VITALS: O2SAT 91
--- NOTE | 2017-08-31 10:17 | NURSING ---
wound photo: right lateral lower leg
--- NOTE | 2017-08-31 10:18 | NURSING ---
wound photo: left lateral lower leg
[2017-08-31] MEDS: Magnesium Oxide 400 MG Tablet 800 MG PO ×2 (10:31→21:35)
[2017-08-31 11:41] LABS: Bedside Glucose 135 mg/dL (70-110)
--- NOTE | 2017-08-31 15:15 | CASEMGMT ---
Brief interview for mental status (BIMS) and resident mood interview (PHQ-9) completed on this day. BIMS score 15. PHQ-9 score 06/20
[2017-08-31 15:38] VITALS: BP 121/54; PULSE 60; RESP 20; TEMP 36.3; O2SAT 96
[2017-08-31 16:56] LABS: Bedside Glucose 160 mg/dL (70-110)
[2017-08-31 21:20] LABS: Bedside Glucose 223 mg/dL (70-110)
[2017-08-31] MEDS: oxyCODONE 5 MG Tablet PO (21:31)
[2017-08-31] MEDS: hydrOXYzine PAM 25 MG Capsule PO (21:31)
[2017-08-31] MEDS: Sertraline 50 MG Tablet PO (21:32)
[2017-08-31 21:36] VITALS: BP 144/54; PULSE 68
[2017-08-31] MEDS: Atorvastatin Calcium 40 MG Tablet PO (21:36)
[2017-08-31] MEDS: Doxazosin 4 MG Tablet 8 MG PO (21:37)
[2017-08-31 21:48] VITALS: PULSE 68; RESP 18; O2SAT 96
[2017-09-01] MEDS: oxyCODONE 5 MG Tablet PO (05:10)
[2017-09-01] MEDS: hydrOXYzine PAM 25 MG Capsule PO (05:11)
[2017-09-01] MEDS: Spironolactone 25 MG Tablet PO ×2 (05:16→17:40)
[2017-09-01] MEDS: Losartan Potassium 100 MG Tablet PO (05:17)
[2017-09-01] MEDS: Furosemide 80 MG Tablet PO ×2 (05:17→17:40)
[2017-09-01] MEDS: Polyethylene Glycol 3350 17 GM PACKET PO (05:18)
[2017-09-01] MEDS: Nystatin Powder 15gm Bottle 1 APPLIC TOPICAL ×2 (05:18→21:35)
[2017-09-01] MEDS: Pantoprazole Sodium 20 MG Tablet PO (05:19)
[2017-09-01] MEDS: Finasteride 5 MG Tablet PO (05:19)
[2017-09-01] MEDS: Clopidogrel Bisulfate 75 MG Tablet PO (05:19)
[2017-09-01] MEDS: Sertraline 100 MG Tablet PO (05:20)
[2017-09-01] MEDS: Senna/Docusate Sodium 1 Tablet 2 TABLET PO ×2 (05:20→17:40)
[2017-09-01 07:01] LABS: Bedside Glucose 135 mg/dL (70-110)
[2017-09-01] MEDS: Ferrous Sulfate 325 MG Tablet PO (07:50)
[2017-09-01] MEDS: Allopurinol 300 MG Tablet PO (07:50)
[2017-09-01] MEDS: Multivitamins,Therapeutic Tablet 1 TABLET PO (07:50)
[2017-09-01] MEDS: Glimepiride 4 MG Tablet 8 MG PO (07:50)
[2017-09-01 09:51] VITALS: BP 118/55; PULSE 61
[2017-09-01] MEDS: APIXABAN 5 MG TABLET PO ×2 (09:51→21:34)
[2017-09-01] MEDS: Magnesium Oxide 400 MG Tablet 800 MG PO ×2 (09:51→21:34)
[2017-09-01] MEDS: Metoprolol Tartrate 50 MG Tablet PO ×2 (09:51→21:35)
[2017-09-01] MEDS: Tuberculin,Purif.prot.deriv. 50 TU/ML Vial 5 ML ID (09:55)
[2017-09-01 11:21] LABS: Bedside Glucose 183 mg/dL (70-110)
[2017-09-01 15:37] VITALS: BP 135/42; PULSE 60; RESP 18; TEMP 36.3; O2SAT 98
[2017-09-01 17:06] LABS: Bedside Glucose 156 mg/dL (70-110)
[2017-09-01 21:06] LABS: Bedside Glucose 176 mg/dL (70-110)
[2017-09-01] MEDS: Atorvastatin Calcium 40 MG Tablet PO (21:32)
[2017-09-01] MEDS: Doxazosin 4 MG Tablet 8 MG PO (21:33)
[2017-09-01 21:35] VITALS: BP 140/54; PULSE 66
[2017-09-01] MEDS: Sertraline 50 MG Tablet PO (21:36)
[2017-09-01 22:00] VITALS: BP 140/54; PULSE 66; RESP 20; TEMP 37; O2SAT 98
[2017-09-02] MEDS: Furosemide 80 MG Tablet PO ×2 (04:57→17:39)
[2017-09-02] MEDS: Polyethylene Glycol 3350 17 GM PACKET PO (04:57)
[2017-09-02] MEDS: Senna/Docusate Sodium 1 Tablet 2 TABLET PO ×2 (04:57→17:39)
[2017-09-02] MEDS: Pantoprazole Sodium 20 MG Tablet PO (04:57)
[2017-09-02] MEDS: Spironolactone 25 MG Tablet PO ×2 (04:57→17:39)
[2017-09-02] MEDS: Sertraline 100 MG Tablet PO (04:57)
[2017-09-02] MEDS: Losartan Potassium 100 MG Tablet PO (04:58)
[2017-09-02] MEDS: Clopidogrel Bisulfate 75 MG Tablet PO (04:58)
[2017-09-02] MEDS: Finasteride 5 MG Tablet PO (04:58)
[2017-09-02] MEDS: Nystatin Powder 15gm Bottle 1 APPLIC TOPICAL ×2 (04:59→21:37)
[2017-09-02 06:01] LABS: Absolute Lymphocyte Count 0.88 X10^3/ul (0.83-4.51); Absolute Neutrophil Count 4.3 X10^3/uL (2.0-7.7); Basophil# 0.03 X10^3/uL; Basophil% 0.5 % (0-1); Eosinophil# 0.37 X10^3/uL; Eosinophils% 5.9 % (0-5); Hematocrit 31.7 % (40-54); Hemoglobin 9.7 g/dl (13.0-16.5); Lymphocyte # 0.88 X10^3/ul (4.0); Lymphocyte % 14.1 % (19-41); Mean Corp Hgb Conc 30.6 g/gl (32-36); Mean Corpuscular Hgb 27.5 pg (27.0-32.0); Mean Corpuscular Volume 89.8 fL (80-94); Mean Platelet Vol. 9.5 fl (6.2-12.0); Monocyte# 0.68 X10^3/uL; Monocyte% 10.9 % (0-10); Neutrophil # 4.25 X10^3/uL (2.7-7.7); Neutrophil % 68.1 % (47-70); Platelet Count 245 K/mm3 (150-450); RBC Distribution Width CV 15.1 % (11.6-14.6); RBC Distribution Width SD 48.2 fl (35.1-43.9); Red Blood Count 3.53 M/mm3 (4.6-6.2); White Blood Count 6.2 K/mm3 (4.4-11.0)
[2017-09-02 06:05] LABS: POSITIVE COUNT NO; POSITIVE DIFFERENTIAL NO; POSITIVE MORPHOLOGY NO
[2017-09-02 06:16] LABS: Anion Gap 5 (5-15); BUN 58 mg/dL (7-18); BUN/Creat Ratio 41.4 RATIO (10-20); Calcium,Total 8.6 mg/dL (8.5-10.1); Chloride 95 mmol/L (98-107); EST Glomerular Filtration Rate 53 mL/min (>60); Est Glom Filt Rate - Afr Amer 64 mL/min (>60); Estimated Creatinine Clearance 44.79 ml/min; Glucose 107 mg/dL (74-106); Sodium Level 139 mmol/L (136-145)
[2017-09-02 06:46] LABS: Bedside Glucose 135 mg/dL (70-110)
[2017-09-02] MEDS: Multivitamins,Therapeutic Tablet 1 TABLET PO (08:10)
[2017-09-02] MEDS: Glimepiride 4 MG Tablet 8 MG PO (08:10)
[2017-09-02] MEDS: Ferrous Sulfate 325 MG Tablet PO (08:10)
[2017-09-02] MEDS: Allopurinol 300 MG Tablet PO (08:10)
[2017-09-02 09:04] VITALS: O2SAT 97
[2017-09-02] MEDS: APIXABAN 5 MG TABLET PO ×2 (10:32→21:38)
[2017-09-02] MEDS: Magnesium Oxide 400 MG Tablet 800 MG PO ×2 (10:32→21:36)
[2017-09-02 10:33] VITALS: BP 126/55; PULSE 68
[2017-09-02] MEDS: Metoprolol Tartrate 50 MG Tablet PO ×2 (10:33→21:38)
[2017-09-02 10:37] VITALS: BP 126/55; PULSE 68; O2SAT 98
[2017-09-02 11:30] LABS: Bedside Glucose 154 mg/dL (70-110)
--- NOTE | 2017-09-02 13:39 | CASEMGMT ---
Plan of care meeting held. Resident present as well as resident spouse. No discharge date set at this time. Resident to continue with further care and treatment on the Transitional Care Unit. Resident plans to discharge home with spouse at time of discharge. Will continue to follow. Aida VILLEGAS, ELECTRICIAN ELEVATOR MAINTENANCE
[2017-09-02 15:18] VITALS: BP 115/66; PULSE 68; RESP 20; TEMP 36.8; O2SAT 98
[2017-09-02 15:32] VITALS: PULSE 65; RESP 18
--- NOTE | 2017-09-02 16:18 | NURSING ---
verified placement of Catapres patch to left chest.
[2017-09-02 17:06] LABS: Bedside Glucose 172 mg/dL (70-110)
[2017-09-02 21:00] LABS: Bedside Glucose 186 mg/dL (70-110)
[2017-09-02] MEDS: Doxazosin 4 MG Tablet 8 MG PO (21:36)
[2017-09-02 21:38] VITALS: BP 134/60; PULSE 66
[2017-09-02] MEDS: Atorvastatin Calcium 40 MG Tablet PO (21:38)
[2017-09-02] MEDS: Sertraline 50 MG Tablet PO (21:40)
[2017-09-03] MEDS: Polyethylene Glycol 3350 17 GM PACKET PO (05:02)
[2017-09-03] MEDS: Finasteride 5 MG Tablet PO (05:03)
[2017-09-03] MEDS: Spironolactone 25 MG Tablet PO ×2 (05:03→17:58)
[2017-09-03] MEDS: Clopidogrel Bisulfate 75 MG Tablet PO (05:04)
[2017-09-03] MEDS: Senna/Docusate Sodium 1 Tablet 2 TABLET PO (05:04)
[2017-09-03] MEDS: Sertraline 100 MG Tablet PO (05:04)
[2017-09-03] MEDS: Nystatin Powder 15gm Bottle 1 APPLIC TOPICAL ×2 (05:04→20:35)
[2017-09-03] MEDS: Furosemide 80 MG Tablet PO ×2 (05:04→17:58)
[2017-09-03] MEDS: Pantoprazole Sodium 20 MG Tablet PO (05:04)
[2017-09-03] MEDS: Losartan Potassium 100 MG Tablet PO (05:04)
[2017-09-03 06:46] LABS: Bedside Glucose 143 mg/dL (70-110)
[2017-09-03] MEDS: Ferrous Sulfate 325 MG Tablet PO (08:10)
[2017-09-03] MEDS: Glimepiride 4 MG Tablet 8 MG PO (08:10)
[2017-09-03] MEDS: Allopurinol 300 MG Tablet PO (08:10)
[2017-09-03] MEDS: Multivitamins,Therapeutic Tablet 1 TABLET PO (08:10)
[2017-09-03 11:36] LABS: Bedside Glucose 123 mg/dL (70-110)
[2017-09-03] MEDS: APIXABAN 5 MG TABLET PO ×2 (12:01→20:35)
[2017-09-03] MEDS: Magnesium Oxide 400 MG Tablet 800 MG PO ×2 (12:01→20:34)
[2017-09-03 12:02] VITALS: BP 137/59; PULSE 65
[2017-09-03] MEDS: Metoprolol Tartrate 50 MG Tablet PO (12:02)
[2017-09-03 15:19] VITALS: BP 133/57; PULSE 57; RESP 18; TEMP 36.8; O2SAT 97
[2017-09-03 16:51] LABS: Bedside Glucose 138 mg/dL (70-110)
[2017-09-03 18:04] VITALS: PULSE 64
[2017-09-03] MEDS: Atorvastatin Calcium 40 MG Tablet PO (20:34)
[2017-09-03] MEDS: Doxazosin 4 MG Tablet 8 MG PO (20:34)
[2017-09-03] MEDS: Sertraline 50 MG Tablet PO (20:34)
[2017-09-03 20:37] VITALS: BP 137/60; PULSE 59
[2017-09-03 21:00] VITALS: PULSE 59
[2017-09-03 21:11] LABS: Bedside Glucose 213 mg/dL (70-110)
[2017-09-04] MEDS: Spironolactone 25 MG Tablet PO ×2 (06:23→17:27)
[2017-09-04] MEDS: Furosemide 80 MG Tablet PO ×2 (06:23→17:27)
[2017-09-04] MEDS: Losartan Potassium 100 MG Tablet PO (06:23)
[2017-09-04] MEDS: Polyethylene Glycol 3350 17 GM PACKET PO (06:23)
[2017-09-04] MEDS: Nystatin Powder 15gm Bottle 1 APPLIC TOPICAL ×2 (06:23→21:59)
[2017-09-04] MEDS: Finasteride 5 MG Tablet PO (06:24)
[2017-09-04] MEDS: Senna/Docusate Sodium 1 Tablet 2 TABLET PO ×2 (06:24→17:27)
[2017-09-04] MEDS: Sertraline 100 MG Tablet PO (06:24)
[2017-09-04] MEDS: Pantoprazole Sodium 20 MG Tablet PO (06:24)
[2017-09-04] MEDS: Clopidogrel Bisulfate 75 MG Tablet PO (06:24)
[2017-09-04 06:50] VITALS: O2SAT 96
[2017-09-04 06:50] LABS: Bedside Glucose 87 mg/dL (70-110)
[2017-09-04 08:31] VITALS: BP 135/78; PULSE 89
[2017-09-04] MEDS: Magnesium Oxide 400 MG Tablet 800 MG PO ×2 (08:31→22:01)
[2017-09-04] MEDS: Allopurinol 300 MG Tablet PO (08:31)
[2017-09-04] MEDS: Metoprolol Tartrate 50 MG Tablet PO ×2 (08:31→17:27)
[2017-09-04] MEDS: Glimepiride 4 MG Tablet 8 MG PO (08:32)
[2017-09-04] MEDS: APIXABAN 5 MG TABLET PO ×2 (08:33→22:01)
[2017-09-04] MEDS: Ferrous Sulfate 325 MG Tablet PO (08:33)
[2017-09-04] MEDS: Multivitamins,Therapeutic Tablet 1 TABLET PO (08:33)
[2017-09-04 11:31] LABS: Bedside Glucose 169 mg/dL (70-110)
--- NOTE | 2017-09-04 11:38 | CASEMGMT ---
Brief interview for mental status (BIMS) and resident mood interview (PHQ-9) completed on this day. BIMS score 15/15. PHQ-9 score
--- NOTE | 2017-09-04 14:39 | MDS.RN ---
Information for the mds was obtained from review of the clinical record, interview of resident, staff, and direct observation of resident's care.
[2017-09-04 16:00] VITALS: BP 151/57; PULSE 63; RESP 20; TEMP 36.1; O2SAT 96
[2017-09-04 17:10] LABS: Bedside Glucose 151 mg/dL (70-110)
[2017-09-04 17:27] VITALS: BP 151/57; PULSE 63
[2017-09-04 21:36] LABS: Bedside Glucose 191 mg/dL (70-110)
[2017-09-04 22:00] VITALS: PULSE 62; RESP 18
[2017-09-04] MEDS: Atorvastatin Calcium 40 MG Tablet PO (22:00)
[2017-09-04] MEDS: Doxazosin 4 MG Tablet 8 MG PO (22:00)
[2017-09-04] MEDS: Sertraline 50 MG Tablet PO (22:06)
[2017-09-05] MEDS: Sertraline 100 MG Tablet PO (05:27)
[2017-09-05] MEDS: Clopidogrel Bisulfate 75 MG Tablet PO (05:27)
[2017-09-05] MEDS: Furosemide 80 MG Tablet PO ×2 (05:28→16:42)
[2017-09-05] MEDS: Polyethylene Glycol 3350 17 GM PACKET PO (05:28)
[2017-09-05] MEDS: Pantoprazole Sodium 20 MG Tablet PO (05:29)
[2017-09-05] MEDS: Losartan Potassium 100 MG Tablet PO (05:29)
[2017-09-05] MEDS: Finasteride 5 MG Tablet PO (05:30)
[2017-09-05] MEDS: Nystatin Powder 15gm Bottle 1 APPLIC TOPICAL ×2 (05:30→20:29)
[2017-09-05] MEDS: Spironolactone 25 MG Tablet PO ×2 (05:34→16:41)
[2017-09-05] MEDS: Senna/Docusate Sodium 1 Tablet 2 TABLET PO ×2 (05:37→16:42)
[2017-09-05 07:00] VITALS: O2SAT 96
[2017-09-05 07:11] LABS: Bedside Glucose 131 mg/dL (70-110)
[2017-09-05] MEDS: Magnesium Oxide 400 MG Tablet 800 MG PO ×2 (09:18→20:28)
[2017-09-05 09:19] VITALS: PULSE 68
[2017-09-05] MEDS: Multivitamins,Therapeutic Tablet 1 TABLET PO (09:19)
[2017-09-05] MEDS: Metoprolol Tartrate 50 MG Tablet PO ×2 (09:19→16:41)
[2017-09-05] MEDS: Glimepiride 4 MG Tablet 8 MG PO (09:19)
[2017-09-05] MEDS: APIXABAN 5 MG TABLET PO ×2 (09:19→20:27)
[2017-09-05] MEDS: Allopurinol 300 MG Tablet PO (09:19)
[2017-09-05] MEDS: Ferrous Sulfate 325 MG Tablet PO (09:20)
[2017-09-05 10:00] VITALS: PULSE 88; RESP 18; O2SAT 93
[2017-09-05 11:36] LABS: Bedside Glucose 181 mg/dL (70-110)
[2017-09-05 15:34] VITALS: BP 128/54; PULSE 60; RESP 22; TEMP 36.8; O2SAT 98
[2017-09-05 16:41] VITALS: BP 128/54; PULSE 64
[2017-09-05 16:41] LABS: Bedside Glucose 177 mg/dL (70-110)
[2017-09-05] MEDS: hydrOXYzine PAM 25 MG Capsule PO (19:59)
[2017-09-05] MEDS: oxyCODONE 5 MG Tablet PO (19:59)
[2017-09-05] MEDS: Doxazosin 4 MG Tablet 8 MG PO (20:28)
[2017-09-05] MEDS: Atorvastatin Calcium 40 MG Tablet PO (20:28)
[2017-09-05] MEDS: Sertraline 50 MG Tablet PO (20:30)
[2017-09-05 21:01] LABS: Bedside Glucose 226 mg/dL (70-110)
[2017-09-06] MEDS: Sertraline 100 MG Tablet PO (05:40)
[2017-09-06] MEDS: hydrOXYzine PAM 25 MG Capsule PO (05:41)
[2017-09-06] MEDS: Senna/Docusate Sodium 1 Tablet 2 TABLET PO ×2 (05:42→17:32)
[2017-09-06] MEDS: Pantoprazole Sodium 20 MG Tablet PO (05:43)
[2017-09-06] MEDS: Losartan Potassium 100 MG Tablet PO (05:43)
[2017-09-06] MEDS: Clopidogrel Bisulfate 75 MG Tablet PO (05:43)
[2017-09-06] MEDS: Finasteride 5 MG Tablet PO (05:43)
[2017-09-06] MEDS: Polyethylene Glycol 3350 17 GM PACKET PO (05:44)
[2017-09-06] MEDS: oxyCODONE 5 MG Tablet PO (05:44)
[2017-09-06] MEDS: Nystatin Powder 15gm Bottle 1 APPLIC TOPICAL ×2 (05:44→20:32)
[2017-09-06] MEDS: Furosemide 80 MG Tablet PO ×2 (05:45→17:32)
[2017-09-06] MEDS: Spironolactone 25 MG Tablet PO ×2 (05:51→17:39)
--- NOTE | 2017-09-06 05:52 | NURSING ---
AM bp prior to med administration 142/61, apical 63.
[2017-09-06 07:10] LABS: Bedside Glucose 118 mg/dL (70-110)
[2017-09-06] MEDS: Glimepiride 4 MG Tablet 8 MG PO (08:07)
[2017-09-06] MEDS: Multivitamins,Therapeutic Tablet 1 TABLET PO (08:07)
[2017-09-06] MEDS: Allopurinol 300 MG Tablet PO (08:07)
[2017-09-06] MEDS: Ferrous Sulfate 325 MG Tablet PO (08:07)
[2017-09-06 08:53] VITALS: O2SAT 98
[2017-09-06 10:00] VITALS: PULSE 66; O2SAT 96
[2017-09-06 10:37] VITALS: BP 111/53; PULSE 66
[2017-09-06] MEDS: Metoprolol Tartrate 50 MG Tablet PO ×2 (10:37→20:33)
[2017-09-06] MEDS: APIXABAN 5 MG TABLET PO ×2 (10:37→20:30)
[2017-09-06] MEDS: Magnesium Oxide 400 MG Tablet 800 MG PO ×2 (10:37→20:30)
[2017-09-06 11:25] LABS: Bedside Glucose 145 mg/dL (70-110)
[2017-09-06 16:00] VITALS: BP 138/67; PULSE 63; RESP 18; TEMP 36.4; O2SAT 99
[2017-09-06 17:00] LABS: Bedside Glucose 159 mg/dL (70-110)
[2017-09-06] MEDS: Doxazosin 4 MG Tablet 8 MG PO (20:31)
[2017-09-06] MEDS: Atorvastatin Calcium 40 MG Tablet PO (20:32)
[2017-09-06 20:33] VITALS: BP 137/55; PULSE 68
[2017-09-06] MEDS: Sertraline 50 MG Tablet PO (20:40)
[2017-09-06 20:55] LABS: Bedside Glucose 200 mg/dL (70-110)
[2017-09-07] MEDS: Sertraline 100 MG Tablet PO (04:58)
[2017-09-07] MEDS: Spironolactone 25 MG Tablet PO ×2 (04:58→17:43)
[2017-09-07] MEDS: Furosemide 80 MG Tablet PO ×2 (05:01→17:43)
[2017-09-07] MEDS: Losartan Potassium 100 MG Tablet PO (05:01)
[2017-09-07] MEDS: Polyethylene Glycol 3350 17 GM PACKET PO (05:01)
[2017-09-07] MEDS: Senna/Docusate Sodium 1 Tablet 2 TABLET PO ×2 (05:01→17:43)
[2017-09-07 05:02] VITALS: BP 127/66; PULSE 63
[2017-09-07] MEDS: Pantoprazole Sodium 20 MG Tablet PO (05:02)
[2017-09-07] MEDS: Clopidogrel Bisulfate 75 MG Tablet PO (05:02)
[2017-09-07] MEDS: Nystatin Powder 15gm Bottle 1 APPLIC TOPICAL ×2 (05:02→20:10)
[2017-09-07] MEDS: Metoprolol Tartrate 50 MG Tablet PO ×2 (05:02→20:11)
[2017-09-07] MEDS: Finasteride 5 MG Tablet PO (05:02)
[2017-09-07 06:45] VITALS: O2SAT 95
[2017-09-07 06:55] LABS: Bedside Glucose 103 mg/dL (70-110)
[2017-09-07] MEDS: Ferrous Sulfate 325 MG Tablet PO (08:23)
[2017-09-07] MEDS: Multivitamins,Therapeutic Tablet 1 TABLET PO (08:23)
[2017-09-07] MEDS: Allopurinol 300 MG Tablet PO (08:23)
[2017-09-07] MEDS: Glimepiride 4 MG Tablet 8 MG PO (08:23)
[2017-09-07] MEDS: APIXABAN 5 MG TABLET PO ×2 (09:39→20:11)
[2017-09-07] MEDS: Magnesium Oxide 400 MG Tablet 800 MG PO ×2 (09:39→20:09)
[2017-09-07 11:21] LABS: Bedside Glucose 230 mg/dL (70-110)
[2017-09-07 15:31] VITALS: BP 128/57; PULSE 62; RESP 22; TEMP 36.8; O2SAT 96
[2017-09-07 17:00] LABS: Bedside Glucose 139 mg/dL (70-110)
[2017-09-07] MEDS: oxyCODONE 5 MG Tablet PO (20:08)
[2017-09-07] MEDS: hydrOXYzine PAM 25 MG Capsule PO (20:08)
[2017-09-07] MEDS: Sertraline 50 MG Tablet PO (20:09)
[2017-09-07] MEDS: Atorvastatin Calcium 40 MG Tablet PO (20:10)
[2017-09-07 20:11] VITALS: BP 132/53; PULSE 69
[2017-09-07] MEDS: Doxazosin 4 MG Tablet 8 MG PO (20:12)
[2017-09-07 21:10] LABS: Bedside Glucose 209 mg/dL (70-110)
[2017-09-08] MEDS: oxyCODONE 5 MG Tablet PO ×2 (00:08→05:20)
[2017-09-08] MEDS: Spironolactone 25 MG Tablet PO (05:20)
[2017-09-08] MEDS: hydrOXYzine PAM 25 MG Capsule PO (05:20)
[2017-09-08] MEDS: Pantoprazole Sodium 20 MG Tablet PO (05:21)
[2017-09-08] MEDS: Losartan Potassium 100 MG Tablet PO (05:21)
[2017-09-08] MEDS: Sertraline 100 MG Tablet PO (05:21)
[2017-09-08] MEDS: Polyethylene Glycol 3350 17 GM PACKET PO (05:22)
[2017-09-08] MEDS: Senna/Docusate Sodium 1 Tablet 2 TABLET PO ×2 (05:22→17:42)
[2017-09-08] MEDS: Finasteride 5 MG Tablet PO (05:22)
[2017-09-08] MEDS: Clopidogrel Bisulfate 75 MG Tablet PO (05:22)
[2017-09-08] MEDS: Furosemide 80 MG Tablet PO ×2 (05:22→17:42)
[2017-09-08] MEDS: Nystatin Powder 15gm Bottle 1 APPLIC TOPICAL ×2 (05:22→22:52)
[2017-09-08 06:45] VITALS: O2SAT 96
[2017-09-08 07:21] LABS: Bedside Glucose 114 mg/dL (70-110)
[2017-09-08] MEDS: Glimepiride 4 MG Tablet 8 MG PO (08:37)
[2017-09-08] MEDS: Multivitamins,Therapeutic Tablet 1 TABLET PO (08:37)
[2017-09-08] MEDS: Ferrous Sulfate 325 MG Tablet PO (08:37)
[2017-09-08] MEDS: Allopurinol 300 MG Tablet PO (08:37)
[2017-09-08 10:50] VITALS: BP 135/73; PULSE 67
[2017-09-08] MEDS: Magnesium Oxide 400 MG Tablet 800 MG PO ×2 (10:50→21:37)
[2017-09-08] MEDS: Metoprolol Tartrate 50 MG Tablet PO ×2 (10:50→21:37)
[2017-09-08] MEDS: APIXABAN 5 MG TABLET PO ×2 (10:50→21:37)
[2017-09-08 10:52] VITALS: BP 135/73; PULSE 67; O2SAT 96
[2017-09-08 11:41] LABS: Bedside Glucose 151 mg/dL (70-110)
--- NOTE | 2017-09-08 11:42 | CASEMGMT ---
Social Work Spoke with resident in room. This oncology social worker communicating that discharge date has been set for 09/12/17. Resident is agreeable to discharge and educated on resident rights, resident signing NOMNOC. Resident plans to discharge home with spouse at time of discharge. This oncology social worker communicating that physical and occupational therapy as well as fdc and a home health aide are recommending for resident to have continued services through home health care. Resident is agreeable to recommendations and requesting for home health services to be set up through [facility]. Resident agreeable to this oncology social worker contacting resident spouse in regards to discharge date and plan. Resident reporting to have all needed durable medical equipment already set up within the home. Support given. Telephone call to resident spouse. Resident spouse supportive of discharge plan and agreeable to all. Support given. Telephone call to [facility]. Referral made to physical and occupational therapy as well as a home health aide and skilled nurse. Antoinette reporting to be able to review referral and to contact this oncology social worker back on whether or not they care accept. Clinical information faxed. Pending approval. Proposed discharge date: 09/12/17 PLAN: Discharge home with spouse and home health services. Aida VILLEGAS, GENERAL MACHINE OPERATOR
--- NOTE | 2017-09-08 15:08 | NURSING ---
wound photo: left lower leg
--- NOTE | 2017-09-08 15:15 | NURSING ---
Addendum entered by Arti Banerjee 09/08/17 15:16: Original Note: wound photo: right lower leg
[2017-09-08 16:00] VITALS: BP 110/51; PULSE 76; RESP 20; TEMP 36.9; O2SAT 96
[2017-09-08 17:16] LABS: Bedside Glucose 163 mg/dL (70-110)
[2017-09-08 21:16] LABS: Bedside Glucose 191 mg/dL (70-110)
--- NOTE | 2017-09-08 21:16 | PCM.DC ---
- Discharge Diagnoses Current Active Problems: Current Active and Chronic Problems (Last Reviewed 09/08/17 @ 15:22 by Halima Apple) Shortness of breath (Acute) Acute on chronic diastolic heart failure (Acute) Bilateral lower leg cellulitis (Acute) Venous stasis dermatitis (Chronic) Anemia (Chronic) Osteoarthritis (Chronic) Coronary artery disease (Chronic) Chronic kidney disease (Chronic) Diabetes mellitus (Chronic) Lymphedema (Chronic) Hyperlipidemia (Chronic) Super obesity (Chronic) Sleep apnea (Chronic) Pulmonary embolism (Chronic) Gout (Chronic) Depression (Acute) Ulcer of right lower extremity with fat layer exposed (Chronic) Ulcer of left lower extremity with fat layer exposed (Chronic) Bilateral leg edema (Chronic) Tinea unguium (Chronic) Diabetes mellitus with neuropathy (Chronic) Delayed wound healing (Chronic) You will use the following diet at home:: No restrictions, Regular Your food should be the consistency of: Regular Your liquids should be the consistency of: Regular/Thin Discharge Activity: Return to Normal Activity, May Shower, Use Walker Weight Bearing Status: Weight bearing as tolerated Call your doctor if you observe: Fever of 101 or Higher, Inability to urinate, Inability to have a bowel movement, Shortness of breath, Chest pain, Uncontrolled pain Allergies/Adverse Reactions: Allergies naphazoline HCl [From Naphcon] Allergy (Severe, Verified 09/08/17 15:11) affected his breathing AFFECTED HIS BREATHING amlodipine besylate [From Norvasc] Allergy (Verified 09/08/17 15:11) Other dextromethorphan Allergy (Verified 09/08/17 15:11) Other levofloxacin [From Levaquin] Adverse Reaction (Mild, Verified 09/08/17 15:11) made me hyperactive made me hyperactive Medications to take at Discharge Allopurinol [Zyloprim] 300 mg PO DAILY 03/30/17 Atorvastatin Calcium [Lipitor] 40 mg PO QHS 03/30/17 Clonidine Patch [Catapres-Tts3] 0.3 mg TOPICAL FR 03/30/17 Clopidogrel Bisulfate [Plavix] 75 mg PO DAILY 03/30/17 Ferrous Sulfate 325 mg PO DAILY@0800 03/30/17 Finasteride [Proscar] 5 mg PO DAILY 03/30/17 Glimepiride [Amaryl] 8 mg PO BREAKFAST 03/30/17 Hydroxyzine HCl 25 mg PO TID PRN 03/30/17 Insulin Glargine [Lantus SoloStar Pen] 30 units PO BID 03/30/17 Lansoprazole 15 mg PO DAILY 03/30/17 Losartan Potassium 100 mg PO DAILY 03/30/17 Magnesium Oxide [Mag-Ox 400] 800 mg PO BID 03/30/17 Metformin HCl [Glucophage] 500 mg PO TID 03/30/17 Metoprolol Tartrate [Lopressor (beta maryam)] 50 mg PO BID 03/30/17 Multivitamins,Therapeutic [Multivitamin] 1 tab PO DAILY@0800 03/30/17 Sertraline HCl [Zoloft] 50 mg PO QHS 03/30/17 Spironolactone 25 mg PO BID 03/30/17 Terazosin HCl [Hytrin] 10 mg PO QHS 03/30/17 albuterol sulfate HFA 90 mcg/actuation aerosol inhaler 2 puff PO Q6H PRN PRN #18 g 08/05/17 Fluticasone/Salmeterol [Advair 500-50 Diskus] 2 puff INHALATION Q12H 08/20/17 Sertraline HCl [Zoloft] 100 mg PO DAILY 08/20/17 Acetaminophen [Tylenol] 1,000 mg PO Q8H PRN PRN tablet 09/08/17 Apixaban [Eliquis] 5 mg PO BID #60 tab 09/08/17 Furosemide [Lasix] 80 mg PO BID #60 tab 09/08/17 Nutritional Supplement [Rafael - ORANGE FLAVOR] 1 packet PO BIDCM #60 packet 09/08/17 Nystatin Powder [Mycostatin Powder] 1 applic TOPICAL 0600,2200 bottle 09/08/17 Oxycodone [Oxyir] 5 mg PO Q4H PRN PRN #10 tab 09/08/17 Polyethylene Glycol 3350 [Miralax] 17 gm PO DAILY #30 packet 09/08/17 The following prescriptions were given: Oxycodone [Oxyir] 5 mg PO Q4H PRN PRN #10 tab PRN Reason: Moderate Pain (pain scale 4-5) Polyethylene Glycol 3350 [Miralax] 17 gm PO DAILY #30 packet Apixaban [Eliquis] 5 mg PO BID #60 tab Furosemide [Lasix] 80 mg PO BID #60 tab Nutritional Supplement [Rafael - ORANGE FLAVOR] 1 packet PO BIDCM #60 packet Primary Care Physician: Jack Verdugo MD [Primary Care Provider] - Please follow up with your Primary Care Physician in: 1 week. Please Follow Up With: Dr Raymundo When: 2 weeks. Please Follow Up With: Dr Raymundo Proposed Discharge Date: 09/12/17
--- NOTE | 2017-09-08 21:18 | PCM.DC.SUM ---
Discharge Date and Diagnosis - Problem List Patient Problems: Active and Suspected Problems (Last Reviewed 09/08/17 @ 15:22 by Halima Apple) Shortness of breath (Acute) Acute on chronic diastolic heart failure (Acute) Bilateral lower leg cellulitis (Acute) Depression (Acute) Date of Admission: 08/28/17 - date of podiatry evaluation Date of Discharge: 09/12/17 - Primary Discharge Diagnosis Active and Suspected Problems (Last Reviewed 09/08/17 @ 15:22 by Halima Apple) Shortness of breath (Acute) Acute on chronic diastolic heart failure (Acute) Bilateral lower leg cellulitis (Acute) Depression (Acute) - Secondary Discharge Diagnosis Chronic Problems (Last Reviewed 09/08/17 @ 15:22 by Halima Apple) Venous stasis dermatitis (Chronic) Anemia (Chronic) Osteoarthritis (Chronic) Coronary artery disease (Chronic) Chronic kidney disease (Chronic) Diabetes mellitus (Chronic) Lymphedema (Chronic) Hyperlipidemia (Chronic) Super obesity (Chronic) Sleep apnea (Chronic) Pulmonary embolism (Chronic) Gout (Chronic) Ulcer of right lower extremity with fat layer exposed (Chronic) Ulcer of left lower extremity with fat layer exposed (Chronic) Bilateral leg edema (Chronic) Tinea unguium (Chronic) Diabetes mellitus with neuropathy (Chronic) Delayed wound healing (Chronic) CKD (chronic kidney disease), stage II (Chronic) Wheezing (Chronic) MIKO (obstructive sleep apnea) (Chronic) HTN (hypertension) (Chronic) BPH (benign prostatic hypertrophy) (Chronic) Tinea unguium (Chronic) Diabetes mellitus with neuropathy (Chronic) Leg swelling (Chronic) Lymphedema of leg (Chronic) Multiple excoriations (Chronic) Asthma (Chronic) COPD (chronic obstructive pulmonary disease) (Chronic) Arthritis (Chronic) Immobility (Chronic) 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 Patient was educated on the signs and symptoms of bleeding as such as hemoptysis, hematemesis, hematochezia or melena stools. Patient has been advised to watch for these symptoms contact the office if they present. Follow-up with Dr. Clay in approximately 8 weeks as previously scheduled. Adynamic ileus (Chronic) Ventral hernia (Chronic) Hypoglycemia (Chronic) Peripheral neuropathy (Chronic) Chronic anemia (Chronic) Benign essential hypertension (Chronic) Benign prostatic hypertrophy without urinary obstruction (Chronic) CKD (chronic kidney disease), stage II (Chronic) CHF (congestive heart failure) (Chronic) CAD (coronary artery disease) (Chronic) Type II diabetes mellitus (Chronic) GERD (gastroesophageal reflux disease) (Chronic) Hypercholesteremia (Chronic) Morbid obesity (Chronic) Pulmonary hypertension (Chronic) H/O aortic valve replacement (Chronic) S/P AAA repair (Chronic) Venous insufficiency (Chronic) Tinea unguium (Chronic) Hospital Course and Treatment Imaging Results: 08/24/17 19:20 Diet: Cardiac: Calorie-Controlled Food consistency:: Regular Liquid Consistency:: Regular/Thin Dietary Modifications:: Fluid Restricted Diet Diet Comments: Carb control, low sodium, fluid restriction 1500 How many daily calories?: 1800 calorie Labs (Last 48 Hours) 09/07/17 09/07/17 09/07/17 06:46 11:10 16:56 POC Glucose 103 230 H 139 H 09/07/17 09/08/17 09/08/17 21:04 06:45 11:24 POC Glucose 209 H 114 H 151 H 09/08/17 09/08/17 17:04 21:06 POC Glucose 163 H 191 H Consultations 08/24/17 Consult: Onc/Wound/oil burner mechanic Routine Comment: Operations: None Procedures: None Summary of Care Provided: The patient is a 72 year old Male with below past medical history hospitalized for acute on chronic diastolic heart failure, complicated by iron deficiency anemia, bilateral lower extremity venous stasis dermatitis masquerading as bilateral lower extremity cellulitis, admitted to TCU with debility, here for rehabilitation, strengthening, prior to discharge home with spouse. [] Discharge home with spouse, and Home Health Services. Discharge Diet: No Restrictions Discharge Activity: Return to Normal Activity, May Shower, Use Walker Weight Bearing Status: Weight bearing as tolerated Call your doctor if you observe: Fever of 101 or Higher, Inability to urinate, Inability to have a bowel movement, Shortness of breath, Chest pain, Uncontrolled pain Home Medications: Medications to take at Discharge Allopurinol [Zyloprim] 300 mg PO DAILY 03/30/17 Atorvastatin Calcium [Lipitor] 40 mg PO QHS 03/30/17 Clonidine Patch [Catapres-Tts3] 0.3 mg TOPICAL FR 03/30/17 Clopidogrel Bisulfate [Plavix] 75 mg PO DAILY 03/30/17 Ferrous Sulfate 325 mg PO DAILY@0800 03/30/17 Finasteride [Proscar] 5 mg PO DAILY 03/30/17 Glimepiride [Amaryl] 8 mg PO BREAKFAST 03/30/17 Hydroxyzine HCl 25 mg PO TID PRN 03/30/17 Insulin Glargine [Lantus SoloStar Pen] 30 units PO BID 03/30/17 Lansoprazole 15 mg PO DAILY 03/30/17 Losartan Potassium 100 mg PO DAILY 03/30/17 Magnesium Oxide [Mag-Ox 400] 800 mg PO BID 03/30/17 Metformin HCl [Glucophage] 500 mg PO TID 03/30/17 Metoprolol Tartrate [Lopressor (beta maryam)] 50 mg PO BID 03/30/17 Multivitamins,Therapeutic [Multivitamin] 1 tab PO DAILY@0800 03/30/17 Sertraline HCl [Zoloft] 50 mg PO QHS 03/30/17 Spironolactone 25 mg PO BID 03/30/17 Terazosin HCl [Hytrin] 10 mg PO QHS 03/30/17 albuterol sulfate HFA 90 mcg/actuation aerosol inhaler 2 puff PO Q6H PRN PRN #18 g 08/05/17 Fluticasone/Salmeterol [Advair 500-50 Diskus] 2 puff INHALATION Q12H 08/20/17 Sertraline HCl [Zoloft] 100 mg PO DAILY 08/20/17 Acetaminophen [Tylenol] 1,000 mg PO Q8H PRN PRN tablet 09/08/17 Apixaban [Eliquis] 5 mg PO BID #60 tab 09/08/17 Furosemide [Lasix] 80 mg PO BID #60 tab 09/08/17 Nutritional Supplement [Rafael - ORANGE FLAVOR] 1 packet PO BIDCM #60 packet 09/08/17 Nystatin Powder [Mycostatin Powder] 1 applic TOPICAL 0600,2200 bottle 09/08/17 Oxycodone [Oxyir] 5 mg PO Q4H PRN PRN #10 tab 09/08/17 Polyethylene Glycol 3350 [Miralax] 17 gm PO DAILY #30 packet 09/08/17 Following Prescrptions Were Given to Patient: Oxycodone [Oxyir] 5 mg PO Q4H PRN PRN #10 tab PRN Reason: Moderate Pain (pain scale 4-5) Polyethylene Glycol 3350 [Miralax] 17 gm PO DAILY #30 packet Apixaban [Eliquis] 5 mg PO BID #60 tab Furosemide [Lasix] 80 mg PO BID #60 tab Nutritional Supplement [Rafael - ORANGE FLAVOR] 1 packet PO BIDCM #60 packet Primary Care Physician: Jack Verdugo MD [Primary Care Provider] - Please follow up with your Primary Care Physician in: 1 week. Please Follow Up With: Dr Raymundo When: 2 weeks. Please Follow Up With: Dr Raymundo Disposition: Home with Home Health Minutes spent on discharge:: 35 Patient Condition:: Stable Medical Necessity - Tobacco Use Smoking Status: Former smoker Tobacco Use: Non-smoker Meaningful Use Info Meaningful Use Diagnoses (Choose all that apply): CHF - CHF EM/ARB ordered at discharge?: Yes Documented LVEF (%): 60
--- NOTE | 2017-09-08 21:24 | HHNOTE_ITS ---
Home Health Note - Plan Overview of reason of hospitalization: The patient is a 72 year old Male with below past medical history hospitalized for acute on chronic diastolic heart failure, complicated by iron deficiency anemia, bilateral lower extremity venous stasis dermatitis masquerading as bilateral lower extremity cellulitis, admitted to TCU with debility, here for rehabilitation, strengthening, prior to discharge home with spouse. [] Discharge home with spouse, and Home Health Services. Problems: Patient was seen for (Last Reviewed 09/08/17 @ 15:22 by Halima Apple) Shortness of breath (Acute) Acute on chronic diastolic heart failure (Acute) Bilateral lower leg cellulitis (Acute) Venous stasis dermatitis (Chronic) Anemia (Chronic) Osteoarthritis (Chronic) Coronary artery disease (Chronic) Chronic kidney disease (Chronic) Diabetes mellitus (Chronic) Lymphedema (Chronic) Hyperlipidemia (Chronic) Super obesity (Chronic) Sleep apnea (Chronic) Pulmonary embolism (Chronic) Gout (Chronic) Depression (Acute) Ulcer of right lower extremity with fat layer exposed (Chronic) Ulcer of left lower extremity with fat layer exposed (Chronic) Bilateral leg edema (Chronic) Tinea unguium (Chronic) Diabetes mellitus with neuropathy (Chronic) Delayed wound healing (Chronic) Complete List of Medical Problems (Last Reviewed 09/08/17 @ 15:22 by Halima Apple) Shortness of breath (Acute) Acute on chronic diastolic heart failure (Acute) Bilateral lower leg cellulitis (Acute) Venous stasis dermatitis (Chronic) Anemia (Chronic) Osteoarthritis (Chronic) Coronary artery disease (Chronic) Chronic kidney disease (Chronic) Diabetes mellitus (Chronic) Lymphedema (Chronic) Hyperlipidemia (Chronic) Super obesity (Chronic) Sleep apnea (Chronic) Pulmonary embolism (Chronic) Gout (Chronic) Depression (Acute) Ulcer of right lower extremity with fat layer exposed (Chronic) Ulcer of left lower extremity with fat layer exposed (Chronic) Bilateral leg edema (Chronic) Tinea unguium (Chronic) Diabetes mellitus with neuropathy (Chronic) Delayed wound healing (Chronic) Open wound, lower leg (Acute) Acute on chronic respiratory failure with hypoxia and hypercapnia (Acute) CKD (chronic kidney disease), stage II (Chronic) CHF exacerbation (Acute) Wheezing (Chronic) Dyspnea (Acute) MIKO (obstructive sleep apnea) (Chronic) HTN (hypertension) (Chronic) BPH (benign prostatic hypertrophy) (Chronic) Tinea unguium (Chronic) Diabetes mellitus with neuropathy (Chronic) Leg swelling (Chronic) Edema of both legs (Acute) Lymphedema of leg (Chronic) Multiple excoriations (Chronic) Asthma (Chronic) COPD (chronic obstructive pulmonary disease) (Chronic) Arthritis (Chronic) Immobility (Chronic) Pulmonary embolism on right (Chronic) Adynamic ileus (Chronic) Ventral hernia (Chronic) Hypoglycemia (Chronic) Peripheral neuropathy (Chronic) Chronic anemia (Chronic) Benign essential hypertension (Chronic) Benign prostatic hypertrophy without urinary obstruction (Chronic) CKD (chronic kidney disease), stage II (Chronic) CHF (congestive heart failure) (Chronic) CAD (coronary artery disease) (Chronic) Type II diabetes mellitus (Chronic) GERD (gastroesophageal reflux disease) (Chronic) Hypercholesteremia (Chronic) Morbid obesity (Chronic) Pulmonary hypertension (Chronic) H/O aortic valve replacement (Chronic) S/P AAA repair (Chronic) Venous insufficiency (Chronic) Tinea unguium (Chronic) - Requirements and Reasons Disciplines Needed/Ordered: Residential, Physical Therapy Reason for Disciplines: Disease Specific Monitoring/education, Medication Management/Knowledge Deficit, Wound Care, Gait Training, Stair Training, Fall Prevention, Home Safety/Equipment Instruction, Balance and/or Posture Training, Transfer Training Related To: Limited/Poor Endurance, Shortness of Breath with Activity, Physical Impairments, Unsteady Gait/Balance, Fall Risk Patient is unable to leave the home: Without Aid of Supportive Devices (crutches , cane, wheelchair, walker), Without the assistance of another person - Additional Disciplines Additional Disciplines Needed/Ordered: Occupational Therapy, Home Health Aide
[2017-09-08 21:30] VITALS: PULSE 72; RESP 20; O2SAT 93
[2017-09-08] MEDS: Atorvastatin Calcium 40 MG Tablet PO (21:36)
[2017-09-08 21:37] VITALS: BP 157/72; PULSE 72
[2017-09-08] MEDS: Doxazosin 4 MG Tablet 8 MG PO (21:38)
[2017-09-08] MEDS: Sertraline 50 MG Tablet PO (21:38)
[2017-09-09] MEDS: Polyethylene Glycol 3350 17 GM PACKET PO (05:23)
[2017-09-09] MEDS: Sertraline 100 MG Tablet PO (05:23)
[2017-09-09] MEDS: Pantoprazole Sodium 20 MG Tablet PO (05:23)
[2017-09-09] MEDS: Losartan Potassium 100 MG Tablet PO (05:23)
[2017-09-09] MEDS: Senna/Docusate Sodium 1 Tablet 2 TABLET PO ×2 (05:23→17:47)
[2017-09-09] MEDS: Finasteride 5 MG Tablet PO (05:24)
[2017-09-09] MEDS: Spironolactone 25 MG Tablet PO ×2 (05:24→17:46)
[2017-09-09] MEDS: Clopidogrel Bisulfate 75 MG Tablet PO (05:24)
[2017-09-09] MEDS: Nystatin Powder 15gm Bottle 1 APPLIC TOPICAL ×2 (05:24→20:07)
[2017-09-09] MEDS: Furosemide 80 MG Tablet PO ×2 (05:24→17:46)
[2017-09-09 06:13] LABS: Absolute Lymphocyte Count 1.03 X10^3/ul (0.83-4.51); Absolute Neutrophil Count 4.7 X10^3/uL (2.0-7.7); Basophil# 0.03 X10^3/uL; Basophil% 0.5 % (0-1); Eosinophil# 0.32 X10^3/uL; Eosinophils% 4.8 % (0-5); Hematocrit 35.5 % (40-54); Hemoglobin 10.8 g/dl (13.0-16.5); Lymphocyte # 1.03 X10^3/ul (4.0); Lymphocyte % 15.5 % (19-41); Mean Corp Hgb Conc 30.4 g/gl (32-36); Mean Corpuscular Hgb 27.6 pg (27.0-32.0); Mean Corpuscular Volume 90.6 fL (80-94); Mean Platelet Vol. 9.3 fl (6.2-12.0); Monocyte# 0.54 X10^3/uL; Monocyte% 8.1 % (0-10); Neutrophil # 4.69 X10^3/uL (2.7-7.7); Neutrophil % 70.8 % (47-70); Platelet Count 247 K/mm3 (150-450); RBC Distribution Width CV 15.2 % (11.6-14.6); RBC Distribution Width SD 49.5 fl (35.1-43.9); Red Blood Count 3.92 M/mm3 (4.6-6.2); White Blood Count 6.6 K/mm3 (4.4-11.0)
[2017-09-09 06:27] LABS: POSITIVE COUNT NO; POSITIVE DIFFERENTIAL NO; POSITIVE MORPHOLOGY NO
[2017-09-09 06:44] LABS: Anion Gap 6 (5-15); BUN 67 mg/dL (7-18); BUN/Creat Ratio 46.2 RATIO (10-20); Calcium,Total 9.3 mg/dL (8.5-10.1); Chloride 95 mmol/L (98-107); Creatinine, Serum 1.45 mg/dL (0.70-1.30); EST Glomerular Filtration Rate 51 mL/min (>60); Est Glom Filt Rate - Afr Amer 61 mL/min (>60); Estimated Creatinine Clearance 43.24 ml/min; Glucose 98 mg/dL (74-106); Potassium 4.1 mmol/L (3.5-5.1); Sodium Level 140 mmol/L (136-145)
[2017-09-09 07:01] LABS: Bedside Glucose 120 mg/dL (70-110)
[2017-09-09] MEDS: Multivitamins,Therapeutic Tablet 1 TABLET PO (08:01)
[2017-09-09] MEDS: Glimepiride 4 MG Tablet 8 MG PO (08:01)
[2017-09-09] MEDS: APIXABAN 5 MG TABLET PO ×2 (08:01→20:04)
[2017-09-09] MEDS: Magnesium Oxide 400 MG Tablet 800 MG PO ×2 (08:01→20:05)
[2017-09-09] MEDS: Allopurinol 300 MG Tablet PO (08:01)
[2017-09-09] MEDS: Ferrous Sulfate 325 MG Tablet PO (08:01)
[2017-09-09 10:00] VITALS: PULSE 68; RESP 20; O2SAT 3
[2017-09-09 10:13] VITALS: O2SAT 93
[2017-09-09 10:14] VITALS: BP 134/66; PULSE 68
[2017-09-09] MEDS: Metoprolol Tartrate 50 MG Tablet PO ×2 (10:14→20:06)
[2017-09-09 11:31] LABS: Bedside Glucose 153 mg/dL (70-110)
[2017-09-09 15:53] VITALS: BP 139/56; PULSE 61; RESP 20; TEMP 35.9; O2SAT 98
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
[2017-09-09 16:50] LABS: Bedside Glucose 163 mg/dL (70-110)
[2017-09-09] MEDS: Atorvastatin Calcium 40 MG Tablet PO (20:04)
[2017-09-09] MEDS: Doxazosin 4 MG Tablet 8 MG PO (20:05)
[2017-09-09 20:06] VITALS: BP 159/64; PULSE 70
[2017-09-09] MEDS: hydrOXYzine PAM 25 MG Capsule PO (20:08)
[2017-09-09] MEDS: oxyCODONE 5 MG Tablet PO (20:08)
[2017-09-09] MEDS: Sertraline 50 MG Tablet PO (20:08)
[2017-09-09 20:50] LABS: Bedside Glucose 218 mg/dL (70-110)
[2017-09-10] VITALS (7 sets, daily range): BP systolic 116–135; BP diastolic 51–67; PULSE 61–70; RESP 18–22; TEMP 36.2; O2SAT 95–98
[2017-09-10] MEDS: oxyCODONE 5 MG Tablet PO ×2 (00:30→05:17)
[2017-09-10] MEDS: Nystatin Powder 15gm Bottle 1 APPLIC TOPICAL ×2 (05:15→21:47)
[2017-09-10] MEDS: Clopidogrel Bisulfate 75 MG Tablet PO (05:15)
[2017-09-10] MEDS: Losartan Potassium 100 MG Tablet PO (05:15)
[2017-09-10] MEDS: Polyethylene Glycol 3350 17 GM PACKET PO (05:15)
[2017-09-10] MEDS: Sertraline 100 MG Tablet PO (05:15)
[2017-09-10] MEDS: Furosemide 80 MG Tablet PO ×2 (05:15→17:09)
[2017-09-10] MEDS: Finasteride 5 MG Tablet PO (05:16)
[2017-09-10] MEDS: Senna/Docusate Sodium 1 Tablet 2 TABLET PO ×2 (05:16→17:09)
[2017-09-10] MEDS: Pantoprazole Sodium 20 MG Tablet PO (05:16)
[2017-09-10] MEDS: Spironolactone 25 MG Tablet PO ×2 (05:16→17:09)
[2017-09-10] MEDS: hydrOXYzine PAM 25 MG Capsule PO (05:17)
[2017-09-10 06:51] LABS: Bedside Glucose 95 mg/dL (70-110)
[2017-09-10] MEDS: Multivitamins,Therapeutic Tablet 1 TABLET PO (07:48)
[2017-09-10] MEDS: Allopurinol 300 MG Tablet PO (07:48)
[2017-09-10] MEDS: Ferrous Sulfate 325 MG Tablet PO (07:48)
[2017-09-10] MEDS: Glimepiride 4 MG Tablet 8 MG PO (07:48)
[2017-09-10] MEDS: Magnesium Oxide 400 MG Tablet 800 MG PO ×2 (09:24→21:46)
[2017-09-10] MEDS: APIXABAN 5 MG TABLET PO ×2 (09:24→21:45)
[2017-09-10] MEDS: Metoprolol Tartrate 50 MG Tablet PO ×2 (09:24→21:46)
[2017-09-10 11:00] LABS: Bedside Glucose 175 mg/dL (70-110)
[2017-09-10 17:10] LABS: Bedside Glucose 167 mg/dL (70-110)
--- NOTE | 2017-09-10 18:58 | NURSING ---
VERIFIED CATAPRES PATCH TO PT RIGHT CHEST.
[2017-09-10 20:51] LABS: Bedside Glucose 200 mg/dL (70-110)
[2017-09-10] MEDS: Doxazosin 4 MG Tablet 8 MG PO (21:44)
[2017-09-10] MEDS: Atorvastatin Calcium 40 MG Tablet PO (21:44)
[2017-09-10] MEDS: Sertraline 50 MG Tablet PO (21:44)
[2017-09-11] MEDS: Senna/Docusate Sodium 1 Tablet 2 TABLET PO ×2 (05:13→18:01)
[2017-09-11] MEDS: Spironolactone 25 MG Tablet PO ×2 (05:13→18:01)
[2017-09-11] MEDS: Losartan Potassium 100 MG Tablet PO (05:14)
[2017-09-11] MEDS: Polyethylene Glycol 3350 17 GM PACKET PO (05:15)
[2017-09-11] MEDS: Nystatin Powder 15gm Bottle 1 APPLIC TOPICAL ×2 (05:15→22:43)
[2017-09-11] MEDS: Pantoprazole Sodium 20 MG Tablet PO (05:15)
[2017-09-11] MEDS: Sertraline 100 MG Tablet PO (05:15)
[2017-09-11] MEDS: Furosemide 80 MG Tablet PO ×2 (05:15→18:01)
[2017-09-11] MEDS: Clopidogrel Bisulfate 75 MG Tablet PO (05:15)
[2017-09-11] MEDS: Finasteride 5 MG Tablet PO (05:16)
[2017-09-11 06:49] VITALS: O2SAT 98
[2017-09-11 07:01] LABS: Bedside Glucose 114 mg/dL (70-110)
[2017-09-11] MEDS: Ferrous Sulfate 325 MG Tablet PO (08:09)
[2017-09-11] MEDS: APIXABAN 5 MG TABLET PO ×2 (08:09→22:40)
[2017-09-11] MEDS: Allopurinol 300 MG Tablet PO (08:10)
[2017-09-11] MEDS: Magnesium Oxide 400 MG Tablet 800 MG PO ×2 (08:10→22:40)
[2017-09-11] MEDS: Glimepiride 4 MG Tablet 8 MG PO ×2 (08:10→18:01)
[2017-09-11] MEDS: Multivitamins,Therapeutic Tablet 1 TABLET PO (08:10)
[2017-09-11 10:00] VITALS: PULSE 84; RESP 18; O2SAT 96
[2017-09-11 10:37] VITALS: BP 128/75; PULSE 88
[2017-09-11] MEDS: Metoprolol Tartrate 50 MG Tablet PO (10:37)
[2017-09-11 11:51] LABS: Bedside Glucose 152 mg/dL (70-110)
[2017-09-11 15:19] VITALS: BP 130/46; PULSE 62; RESP 20; TEMP 37.1; O2SAT 99
[2017-09-11 16:51] LABS: Bedside Glucose 199 mg/dL (70-110)
[2017-09-11 21:17] LABS: Bedside Glucose 195 mg/dL (70-110)
[2017-09-11] MEDS: Sertraline 50 MG Tablet PO (22:40)
[2017-09-11] MEDS: Atorvastatin Calcium 40 MG Tablet PO (22:40)
[2017-09-11 22:41] VITALS: BP 132/65; PULSE 60
[2017-09-11] MEDS: Doxazosin 4 MG Tablet 8 MG PO (22:41)
[2017-09-11 22:53] VITALS: BP 132/65; PULSE 59; RESP 16; O2SAT 95
--- NOTE | 2017-09-11 23:57 | NURSING ---
Drsg to left arm changed this shift. steri strips intact- loose at the end. redness noted around wound, cleansed with normal saline, adaptic applied and covered with dry sterile dressing. pt tolerated procedure well. denies pain at this time.
--- NOTE | 2017-09-12 00:22 | NURSING ---
2200: SCHEDULED METOPROLOL HELD D/T ORDERED PARAMETERS. HR WAS 58
[2017-09-12] MEDS: Spironolactone 25 MG Tablet PO (04:55)
[2017-09-12] MEDS: Losartan Potassium 100 MG Tablet PO (04:59)
[2017-09-12] MEDS: Furosemide 80 MG Tablet PO (04:59)
[2017-09-12] MEDS: Polyethylene Glycol 3350 17 GM PACKET PO (05:00)
[2017-09-12] MEDS: Clopidogrel Bisulfate 75 MG Tablet PO (05:00)
[2017-09-12] MEDS: Finasteride 5 MG Tablet PO (05:03)
[2017-09-12] MEDS: Nystatin Powder 15gm Bottle 1 APPLIC TOPICAL (05:04)
[2017-09-12] MEDS: Sertraline 100 MG Tablet PO (05:04)
[2017-09-12] MEDS: Pantoprazole Sodium 20 MG Tablet PO (05:05)
[2017-09-12 06:31] LABS: Bedside Glucose 123 mg/dL (70-110)
[2017-09-12 08:32] VITALS: PULSE 64
[2017-09-12] MEDS: Allopurinol 300 MG Tablet PO (08:32)
[2017-09-12] MEDS: Magnesium Oxide 400 MG Tablet 800 MG PO (08:32)
[2017-09-12] MEDS: Metoprolol Tartrate 50 MG Tablet PO (08:32)
[2017-09-12] MEDS: Glimepiride 4 MG Tablet 8 MG PO (08:32)
[2017-09-12] MEDS: APIXABAN 5 MG TABLET PO (08:32)
[2017-09-12] MEDS: Ferrous Sulfate 325 MG Tablet PO (08:33)
[2017-09-12] MEDS: Multivitamins,Therapeutic Tablet 1 TABLET PO (08:54)
[2017-09-12 09:06] VITALS: BP 126/64; PULSE 65; RESP 18; TEMP 36.1; O2SAT 98
[2017-09-12 09:16] VITALS: PULSE 70; RESP 18; O2SAT 95
[2017-09-12 11:00] VITALS: O2SAT 98
== END 2017-09-12 11:33 | disposition home health service (06) | DRG 939 ==
PROVIDERS: Admitting Provider Family Medicine Geriatric Medicine; Family Provider Internal Medicine; PCP Internal Medicine; Visit Provider Family Medicine Geriatric Medicine
DX: R53.81 Other malaise (principal); I50.33 Acute on chronic diastolic (congestive) heart failure; I27.82 Chronic pulmonary embolism; Z68.43 Body mass index [BMI] 50.0-59.9, adult; I13.0 Hypertensive heart and chronic kidney disease with heart failure and stage 1 through stage 4 chronic kidney disease, or unspecified chronic kidney disease; L03.116 Cellulitis of left lower limb; L03.115 Cellulitis of right lower limb; L97.912 Non-pressure chronic ulcer of unspecified part of right lower leg with fat layer exposed; L97.922 Non-pressure chronic ulcer of unspecified part of left lower leg with fat layer exposed; E11.22 Type 2 diabetes mellitus with diabetic chronic kidney disease; E11.40 Type 2 diabetes mellitus with diabetic neuropathy, unspecified; I27.20 Pulmonary hypertension, unspecified; E66.01 Morbid (severe) obesity due to excess calories; J44.9 Chronic obstructive pulmonary disease, unspecified; E78.5 Hyperlipidemia, unspecified; B35.4 Tinea corporis; D50.9 Iron deficiency anemia, unspecified; I25.10 Atherosclerotic heart disease of native coronary artery without angina pectoris; F32.9 Major depressive disorder, single episode, unspecified; N40.0 Benign prostatic hyperplasia without lower urinary tract symptoms; M10.9 Gout, unspecified; K21.9 Gastro-esophageal reflux disease without esophagitis; M19.90 Unspecified osteoarthritis, unspecified site; N18.2 Chronic kidney disease, stage 2 (mild); I89.0 Lymphedema, not elsewhere classified; I87.8 Other specified disorders of veins; G47.33 Obstructive sleep apnea (adult) (pediatric); B35.1 Tinea unguium; E11.51 Type 2 diabetes mellitus with diabetic peripheral angiopathy without gangrene; Z79.899 Other long term (current) drug therapy; Z79.4 Long term (current) use of insulin; Z79.02 Long term (current) use of antithrombotics/antiplatelets; Z71.3 Dietary counseling and surveillance; Z95.2 Presence of prosthetic heart valve; Z87.891 Personal history of nicotine dependence
CPT/HCPCS: 36415; 80048; 82962; 85025; 94640; 97110; 97116; 97162; 97166; 97530; 97535; 97802

== ENCOUNTER 2017-11-27 13:32 | Emergency (ER) | payer MEDICARE, BC, SELFPAY ==
[2017-11-27 13:33] VITALS: BP 128/61; PULSE 87; RESP 16; TEMP 37; O2SAT 94; BMI 51.5
--- NOTE | 2017-11-27 13:46 | EKG12_ITS ---
Test Reason : WOUND Blood Pressure : / mmHG Vent. Rate : 076 BPM Atrial Rate : 076 BPM P-R Int : 164 ms QRS Dur : 104 ms QT Int : 426 ms P-R-T Axes : 013 -28 046 degrees QTc Int : 479 ms Normal sinus rhythm Normal ECG Confirmed by RIGOBERTO LOGAN, EMORY ([id number]), newspaper photo editor DANIELA GUTIÉRREZ ([id number]) on 11/30/2017 2:10:42 PM Referred By: GABRIELLA Confirmed By:EMORY FRANKLIN MD
--- NOTE | 2017-11-27 13:51 | CM.ED ---
CM consulted for assistance with prescription coverage of medication. Patient tells me that she would prefer to use [facility]. Requested medication was e-scribed. Adiel, from [facility] pharmacy, verifies that correct insurance is on file and that this medication will be available for pickup at no cost to the patient. Family updated that they can fruit or nut picker this medication after discharge.
[2017-11-27 14:16] LABS: Absolute Lymphocyte Count 0.65 X10^3/ul (0.83-4.51); Absolute Neutrophil Count 5.6 X10^3/uL (2.0-7.7); Basophil# 0.03 X10^3/uL; Basophil% 0.4 % (0-1); Eosinophil# 0.18 X10^3/uL; Eosinophils% 2.6 % (0-5); Hematocrit 26.4 % (40-54); Lymphocyte # 0.65 X10^3/ul (4.0); Lymphocyte % 9.2 % (19-41); Mean Corp Hgb Conc 30.3 g/gl (32-36); Mean Corpuscular Hgb 26.8 pg (27.0-32.0); Mean Corpuscular Volume 88.6 fL (80-94); Mean Platelet Vol. 8.6 fl (6.2-12.0); Monocyte# 0.56 X10^3/uL; Monocyte% 7.9 % (0-10); Neutrophil # 5.61 X10^3/uL (2.7-7.7); Neutrophil % 79.6 % (47-70); Platelet Count 236 K/mm3 (150-450); RBC Distribution Width CV 14.8 % (11.6-14.6); RBC Distribution Width SD 46.8 fl (35.1-43.9); Red Blood Count 2.98 M/mm3 (4.6-6.2); White Blood Count 7.1 K/mm3 (4.4-11.0)
--- NOTE | 2017-11-27 14:25 | RAD_ITS ---
STUDY: X-RAY CHEST REASON FOR EXAM: Male, 72 years old. Dyspnea. CHF. TECHNIQUE: AP and lateral views of the chest. COMPARISON: Comparison is made with prior study dated August 20, 2017. FINDINGS: Mild increased markings at the lung bases suggestive of bibasilar atelectasis. Blunting of both costophrenic angles. Sternal cerclage wires and vascular clips are present from a prior sternotomy and coronary artery bypass graft procedure (CABG). Moderate cardiomegaly. Normal mediastinum and radha. Normal visualized pulmonary arteries. There is atherosclerotic calcification of the aortic arch with tortuosity. Normal visualized thoracic spine. Normal visualized ribs, clavicles, and shoulders. There is no demonstrated abnormality of the visualized soft tissue structures of the upper abdomen. RAD/Chest PA and Lateral IMPRESSION: Cardiomegaly. Mild increased markings at the lung bases worse on the right side with blunting of both costophrenic angles. Electronically Signed: Gab Ruth MD at 14:53 EDT Tel [phone], Service support ,
[2017-11-27 14:34] LABS: POSITIVE COUNT NO; POSITIVE DIFFERENTIAL NO; POSITIVE MORPHOLOGY NO
--- NOTE | 2017-11-27 14:51 | NURSING ---
NO LW OR POA
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
[2017-11-27 16:00] LABS: Anion Gap 5 (5-15); BUN 24 mg/dL (7-18); BUN/Creat Ratio 19.4 RATIO (10-20); Calcium,Total 8.4 mg/dL (8.5-10.1); Chloride 97 mmol/L (98-107); Creatinine, Serum 1.24 mg/dL (0.70-1.30); EST Glomerular Filtration Rate 60 mL/min (>60); Est Glom Filt Rate - Afr Amer 73 mL/min (>60); Estimated Creatinine Clearance 50.56 ml/min; Glucose 160 mg/dL (74-106); Potassium 4.5 mmol/L (3.5-5.1); Sodium Level 138 mmol/L (136-145)
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
--- NOTE | 2017-12-01 10:08 | CM.ED ---
Social Work Note Updated by Agricultural Sciences Professor, Rianna Ward, and requested to follow-up with referrals. Referral made to [facility] through [facility] for Long-Term Care Planning Consultation. Placed call to [facility] and confirmed that they do not have a group social worker on staff. Further review of pt's chart indicates that palliative care may be an appropriate referral as well. Placed call to pt and no answer. Left vm requesting a return phone call. SW to continue to follow and assist as needed. Colleen Brownlee, TOBACCO SAMPLER, INDUSTRIAL SALES ENGINEER
--- NOTE | 2017-12-01 13:46 | CM.ED ---
Social Work Note Call back from pt's . Introduced self and role at [facility]. Inform that SW faxed referral for Long-Term Care Planning through [facility] and that she should expect to be contacted within the next day or two. Educate to palliative care and she requests to think about this before making a determination. Confirm that she has SW's number and is aware that SW is available if she would like a referral made. Colleen Brownlee, EXTERNAL GRINDER TENDER, SENIOR INTERNATIONAL TAX MANAGER
== END 2017-11-27 17:28 | disposition home or self-care (01) ==
PROVIDERS: Emergency Provider Emergency Medicine; Family Provider Internal Medicine; PCP Internal Medicine
DX: S81.801A Unspecified open wound, right lower leg, initial encounter (principal); Y33.XXXA Other specified events, undetermined intent, initial encounter; Y93.9 Activity, unspecified; Y92.9 Unspecified place or not applicable; Y99.9 Unspecified external cause status; E87.2 Acidosis; I89.0 Lymphedema, not elsewhere classified; E11.65 Type 2 diabetes mellitus with hyperglycemia; I11.0 Hypertensive heart disease with heart failure; I50.9 Heart failure, unspecified; J44.9 Chronic obstructive pulmonary disease, unspecified; D64.9 Anemia, unspecified; N40.0 Benign prostatic hyperplasia without lower urinary tract symptoms; F32.9 Major depressive disorder, single episode, unspecified; E66.9 Obesity, unspecified; Z68.43 Body mass index [BMI] 50.0-59.9, adult; Z72.0 Tobacco use; Z99.81 Dependence on supplemental oxygen; Z79.01 Long term (current) use of anticoagulants; Z79.84 Long term (current) use of oral hypoglycemic drugs; Z79.02 Long term (current) use of antithrombotics/antiplatelets; Z79.891 Long term (current) use of opiate analgesic; Z79.899 Other long term (current) drug therapy; Z86.711 Personal history of pulmonary embolism
CPT/HCPCS: 71046; 80048; 84484; 85025; 93005; 99285

== ENCOUNTER 2017-12-09 17:37 | Inpatient (IN) | payer MEDICARE, BC, SELFPAY ==
[2017-12-09] VITALS (11 sets, daily range): BP systolic 158–171; BP diastolic 77–98; PULSE 77–96; RESP 12–20; TEMP 36.7–36.9; O2SAT 84–98; BMI 56.0; BMI 56.1; BMI 54.4
--- NOTE | 2017-12-09 17:55 | EKG12_ITS ---
Test Reason : SOB Blood Pressure : / mmHG Vent. Rate : 076 BPM Atrial Rate : 076 BPM P-R Int : 146 ms QRS Dur : 108 ms QT Int : 446 ms P-R-T Axes : -26 -03 015 degrees QTc Int : 501 ms Normal sinus rhythm Prolonged QT Abnormal ECG Confirmed by RIGOBERTO LOGAN, EMORY ([id number]), publication editor DANIELA GUTIÉRREZ ([id number]) on 12/11/2017 1:07:34 PM Referred By: STERLING Confirmed By:EMORY FRANKLIN MD
--- NOTE | 2017-12-09 18:00 | RAD_ITS ---
STUDY: X-RAY CHEST REASON FOR EXAM: Male, 72 years old. Shortness of breath x2 days, history of asthma, COPD, and CHF TECHNIQUE: Single AP portable view of the chest. COMPARISON: Prior study of 11/27/2017 FINDINGS: phototypesetting equipment monitor leads are present. There is a bandlike density of the right mid lung field extending into the right mediastinal region which may be artifactual in nature. There is prominence of the bronchopulmonary marking pattern of the lung bases consistent with atelectasis. There is a small left-sided pleural effusion. There is moderate cardiac enlargement. Status post sternotomy changes are seen. Normal mediastinum and radha. There is prominence of the pulmonary hilar arteries and peripheral pulmonary arteries, consistent with congestive heart failure (CHF). There are calcified plaques of the aortic arch. Normal visualized thoracic spine. Normal visualized ribs, clavicles, and shoulders. There is no demonstrated abnormality of the visualized soft tissue structures of the upper abdomen. RAD/Chest 1 View (Portable) IMPRESSION: 1. There is a bandlike density of the right midlung field extending into the right mediastinal region which may be artifactual in nature. 2. Prominence of the bronchopulmonary marking pattern of the lung bases consistent with atelectasis, similar to the previous study. 3. There is mild CHF, new in the interval. 4. Moderate cardiomegaly. Status post sternotomy. 5. Small left basilar effusion, new in the interval. Electronically Signed: Amado Eugene MD at 18:35 EDT , Service support ,
--- NOTE | 2017-12-09 18:03 | ED.DCSUM_ITS ---
- ER Visit Summary Date of Service: 12/09/17 Chief Complaint: Shortness of breath History of Present Illness: The patient is a 72 M presenting with shortness of breath which started yesterday. Patient states he has had to increase his normal home O2. He has had shortness of breath, productive cough. He denies chest pain. He has had increasing lower extremity edema. He has chronic lymphedema. He has been treated for cellulitis since August. He states he was kicked out of the wound center and now follows with Dr. Verdugo. He is not currently on antibiotics. He has a history of coronary disease, CHF, asthma, COPD, diabetes, hypertension, hypercholesterolemia, obstructive sleep apnea, chronic kidney disease, pulmonary hypertension, PE on Eliquis, gout, depression , thoracic aortic aneurysm. Physical Examination: Vitals are stable. Patient is afebrile. Alert no acute distress. HEENT exam is unremarkable. Neck is supple. Lungs are expiratory wheezing bilaterally. Heart is regular rate and rhythm. Abdomen is soft nontender obese Extremities bilateral lower extremity lymphedema, chronic skin changes, erythema bilateral lower legs. Skin is warm and dry. No focal neurologic deficit. Remainder of exam is unremarkable. Emergency Department Course and Treatment: Patient was given albuterol aerosols. EKG is sinus rate is 76. Chest x-ray shows cardiomegaly, CHF, left pleural effusion. CBC shows a hemoglobin of 6.7. Chemistry CO2 34, BUN 24. Troponin is negative. Lactic acid is normal. Patient was typed and cross for 1 unit of packed red blood cells. He is given Lasix and Solu-Medrol IV. Discussed with the hospitalist for admission. Disposition: Admission Impression: COPD, CHF exacerbation, anemia This note was generated with [employer] dictation software. It may contain incorrect words, spelling, and punctuation that were not noted in review of the chart prior to signing ED Disposition - Plan for ED Patient: Chief Complaint: Shortness of Breath Referrals: Jack Verdugo MD [Primary Care Provider] -
[2017-12-09 18:10] LABS: Absolute Lymphocyte Count 0.68 X10^3/ul (0.83-4.51); Absolute Neutrophil Count 5.2 X10^3/uL (2.0-7.7); Basophil# 0.01 X10^3/uL; Basophil% 0.1 % (0-1); Eosinophil# 0.19 X10^3/uL; Eosinophils% 2.8 % (0-5); Hematocrit 23.2 % (40-54); Hemoglobin 6.7 g/dl (13.0-16.5); Lymphocyte # 0.68 X10^3/ul (4.0); Lymphocyte % 10.1 % (19-41); Mean Corp Hgb Conc 28.9 g/gl (32-36); Mean Corpuscular Hgb 24.7 pg (27.0-32.0); Mean Corpuscular Volume 85.6 fL (80-94); Mean Platelet Vol. 8.6 fl (6.2-12.0); Monocyte# 0.66 X10^3/uL; Monocyte% 9.8 % (0-10); Neutrophil # 5.19 X10^3/uL (2.7-7.7); Neutrophil % 76.8 % (47-70); Platelet Count 222 K/mm3 (150-450); RBC Distribution Width CV 15.3 % (11.6-14.6); RBC Distribution Width SD 48.1 fl (35.1-43.9); Red Blood Count 2.71 M/mm3 (4.6-6.2); White Blood Count 6.8 K/mm3 (4.4-11.0)
[2017-12-09 18:11] LABS: POSITIVE COUNT NO; POSITIVE DIFFERENTIAL NO; POSITIVE MORPHOLOGY NO
[2017-12-09] MEDS: Albuterol 2.5 MG/3 ML VIAL.NEB. INHALATION ×2 (18:16→18:17)
[2017-12-09 18:41] LABS: Allen Test POS; Base Excess 7 mmol/L (-2 to +2); Bicarbonate 32.2 mmol/L (22-26); Blood Gas Specimen Type ART; O2 Delivery Device Nasal Can; PO2 89 mmHG (75-100); SITE L Radial; SO2 96 % (95-99); Time Given 1830; Total Carbon Dioxide 34 mmol/L; pCO2 56.2 mmHg (35-45); pH 7.37 (7.35-7.45)
[2017-12-09 18:44] LABS: Anion Gap 5 (5-15); BUN 24 mg/dL (7-18); BUN/Creat Ratio 22.4 RATIO (10-20); Calcium,Total 9.3 mg/dL (8.5-10.1); Chloride 99 mmol/L (98-107); Creatinine, Serum 1.07 mg/dL (0.70-1.30); EST Glomerular Filtration Rate 72 mL/min (>60); Est Glom Filt Rate - Afr Amer 87 mL/min (>60); Glucose 74 mg/dL (74-106); Potassium 4.6 mmol/L (3.5-5.1); Sodium Level 138 mmol/L (136-145)
[2017-12-09] MEDS: MethylPREDNISolone 125 MG/2 ML Vial IV (19:46)
[2017-12-09] MEDS: Furosemide 40 MG/4 ML Vial IV ×2 (19:46→23:38)
--- NOTE | 2017-12-09 20:22 | PCM.HP.STD ---
Problem List (1) Venous stasis dermatitis Status: Chronic (2) Anemia Status: Chronic (3) Osteoarthritis Status: Chronic (4) Lymphedema Status: Chronic (5) Super obesity Status: Chronic (6) Gout Status: Chronic (7) Depression Status: Chronic (8) Bilateral leg edema Status: Chronic (9) Diabetes mellitus with neuropathy Status: Chronic Qualifiers: Diabetes mellitus type: type 2 (10) Acute on chronic respiratory failure with hypoxia and hypercapnia Status: Acute (11) MIKO (obstructive sleep apnea) Status: Chronic Comment: BiPAP 18/12 cm of water (12) HTN (hypertension) Status: Chronic Qualifiers: Hypertension type: essential hypertension Qualified Code(s): I10 - Essential (primary) hypertension (13) COPD (chronic obstructive pulmonary disease) Status: Acute Qualifiers: Comment: FEV1 58% (14) Pulmonary embolism on right Status: Chronic Comment: Continue oral anticoagulation with Eliquis for a minimum of 6 months. Patient was educated on the signs and symptoms of bleeding as such as hemoptysis, hematemesis, hematochezia or melena stools. Patient has been advised to watch for these symptoms contact the office if they present. Follow-up with Dr. Clay in approximately 8 weeks as previously scheduled. (15) H/O aortic valve replacement Status: Chronic Comment: # 29 Freestyle valve History of Present Illness Date of Admission: 12/09/17 Chief Complaint: Shortness of breath The patient is a 72 year old M with a significant history of CAD, CVA stroke TIA, CHF, asthma COPD, GERD, PE, diabetes mellitus, hypertension, high cholesterol, lymphedema, continues home oxygen use; aortic aneurysm repair and bovine aortic valve replacements , umbilical hernia repair who presents because of worsening shortness of breath for about 1 week. Because of his increased shortness of breath patient has had to increase his home oxygen use from 3.5 L to 4 L. Patient reported since 1991 he has been sleeping in a recliner because of shortness of breath. Every night he uses a CPAP. Associated with the symptoms is increasing swelling in bilateral lower extremities. Past Medical History Past Medical History (Chronic Problems): Chronic Problems (Last Reviewed 12/09/17 @ 21:05 by Garrett Whitley MD) History of repair of thoracic aortic aneurysm (Chronic ~12/11/09) Thoracic aortic aneurysm without rupture (Chronic) Venous stasis dermatitis (Chronic) Anemia (Chronic) Osteoarthritis (Chronic) Coronary artery disease (Chronic) Lymphedema (Chronic) Hyperlipidemia (Chronic) Super obesity (Chronic) Gout (Chronic) Depression (Chronic) Ulcer of right lower extremity with fat layer exposed (Chronic) Ulcer of left lower extremity with fat layer exposed (Chronic) Bilateral leg edema (Chronic) Tinea unguium (Chronic) Diabetes mellitus with neuropathy (Chronic) Delayed wound healing (Chronic) CKD (chronic kidney disease), stage II (Chronic) Wheezing (Chronic) MIKO (obstructive sleep apnea) (Chronic) BiPAP 18/12 cm of water HTN (hypertension) (Chronic) BPH (benign prostatic hypertrophy) (Chronic) Tinea unguium (Chronic) Diabetes mellitus with neuropathy (Chronic) Lymphedema of leg (Chronic) Multiple excoriations (Chronic) Asthma (Chronic) Arthritis (Chronic) Immobility (Chronic) 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 Patient was educated on the signs and symptoms of bleeding as such as hemoptysis, hematemesis, hematochezia or melena stools. Patient has been advised to watch for these symptoms contact the office if they present. Follow-up with Dr. Clay in approximately 8 weeks as previously scheduled. Adynamic ileus (Chronic) Ventral hernia (Chronic) Hypoglycemia (Chronic) Peripheral neuropathy (Chronic) Chronic anemia (Chronic) Benign prostatic hypertrophy without urinary obstruction (Chronic) CKD (chronic kidney disease), stage II (Chronic) CAD (coronary artery disease) (Chronic) Type II diabetes mellitus (Chronic) GERD (gastroesophageal reflux disease) (Chronic) Hypercholesteremia (Chronic) Morbid obesity (Chronic) Pulmonary hypertension (Chronic) H/O aortic valve replacement (Chronic ~12/11/09) # 29 Freestyle valve Venous insufficiency (Chronic) Medical History: Medical History (Last Reviewed 12/09/17 @ 21:05 by Garrett Whitley MD) Thoracic aortic aneurysm without rupture (Chronic) I71.2 Acute on chronic diastolic heart failure (Acute) I50.33 Anemia (Chronic) D64.9 Coronary artery disease (Chronic) I25.10 Hyperlipidemia (Chronic) E78.5 Super obesity (Chronic) E66.9 Bilateral leg edema (Chronic) R60.0 Diabetes mellitus with neuropathy (Chronic) E11.40 Acute on chronic respiratory failure with hypoxia and hypercapnia (Acute) J96.21, J96.22 CKD (chronic kidney disease), stage II (Chronic) N18.2 Wheezing (Chronic) R06.2 Dyspnea (Acute) R06.00 MIKO (obstructive sleep apnea) (Chronic) G47.33 BiPAP 18/12 cm of water HTN (hypertension) (Chronic) I10 Tobacco abuse (Resolved) Z72.0 BPH (benign prostatic hypertrophy) (Chronic) N40.0 Tinea unguium (Chronic) B35.1 Diabetes mellitus with neuropathy (Chronic) E11.40 Edema of both legs (Acute) R60.0 Lymphedema of leg (Chronic) I89.0 Multiple excoriations (Chronic) T14.8 Asthma (Chronic) J45.909 COPD (chronic obstructive pulmonary disease) (Acute) J44.9 FEV1 58% Arthritis (Chronic) M19.90 Immobility (Chronic) Z74.09 Pulmonary embolism on right (Chronic) I26.99 Continue oral anticoagulation with Eliquis for a minimum of 6 months. Patient was educated on the signs and symptoms of bleeding as such as hemoptysis, hematemesis, hematochezia or melena stools. Patient has been advised to watch for these symptoms contact the office if they present. Follow-up with Dr. Clay in approximately 8 weeks as previously scheduled. CAP (community acquired pneumonia) (Resolved) J18.9 The patient appropriately completed antibiotics and prednisone as prescribed. He has no further signs and symptoms of persistent pneumonia. No indication for any further testing at this time. Patient will be eligible for Pneumovax 23 in approximately 6 months. He states that his PCP is very good at keeping track of his immunizations and when they are due. Adynamic ileus (Chronic) K56.0 Ventral hernia (Chronic) K43.9 Hypoglycemia (Chronic) E16.2 Peripheral neuropathy (Chronic) G62.9 Chronic anemia (Chronic) D64.9 Benign prostatic hypertrophy without urinary obstruction (Chronic) N40.0 CKD (chronic kidney disease), stage II (Chronic) N18.2 CAD (coronary artery disease) (Chronic) I25.10 Type II diabetes mellitus (Chronic) E11.9 GERD (gastroesophageal reflux disease) (Chronic) K21.9 Hypercholesteremia (Chronic) E78.00 Morbid obesity (Chronic) E66.01 Pulmonary hypertension (Chronic) I27.2 Venous insufficiency (Chronic) CHF exacerbation (Resolved) I50.9 Leg swelling (Inactive) M79.89 Nausea and vomiting (Inactive) R11.2 Tinea unguium (Inactive) B35.1 Allergies naphazoline HCl [From Naphcon] Allergy (Severe, Verified 12/09/17 17:49) affected his breathing AFFECTED HIS BREATHING amlodipine besylate [From Norvasc] Allergy (Verified 12/09/17 17:49) Other dextromethorphan Allergy (Verified 12/09/17 17:49) Other levofloxacin [From Levaquin] Adverse Reaction (Mild, Verified 12/09/17 17:49) made me hyperactive made me hyperactive Home Medications: Ambulatory Orders Medication Instructions Recorded Allopurinol [Zyloprim] 300 mg PO DAILY 03/30/17 Atorvastatin Calcium [Lipitor] 40 mg PO QHS 03/30/17 Clonidine Patch [Catapres-Tts3] 0.3 mg TOPICAL FR 03/30/17 Clopidogrel Bisulfate [Plavix] 75 mg PO DAILY 03/30/17 Ferrous Sulfate 325 mg PO DAILY@0800 03/30/17 Finasteride [Proscar] 5 mg PO DAILY 03/30/17 Glimepiride [Amaryl] 8 mg PO BREAKFAST 03/30/17 Hydroxyzine HCl 25 mg PO TID PRN 03/30/17 Insulin Glargine [Lantus SoloStar 35 units PO BID 03/30/17 Pen] Lansoprazole 15 mg PO DAILY 03/30/17 Losartan Potassium 100 mg PO DAILY 03/30/17 Magnesium Oxide [Mag-Ox 400] 800 mg PO BID 03/30/17 Metformin HCl [Glucophage] 500 mg PO TID 03/30/17 Metoprolol Tartrate [Lopressor 50 mg PO BID 03/30/17 (beta maryam)] Multivitamins,Therapeutic 1 tab PO DAILY@0800 03/30/17 [Multivitamin] Sertraline HCl [Zoloft] 50 mg PO QHS 03/30/17 Spironolactone 25 mg PO BID 03/30/17 Terazosin HCl [Hytrin] 10 mg PO QHS 03/30/17 albuterol sulfate HFA 90 2 puff PO Q6H PRN PRN #18 g 08/05/17 mcg/actuation aerosol inhaler Fluticasone/Salmeterol [Advair 2 puff INHALATION Q12H 08/20/17 500-50 Diskus] Sertraline HCl [Zoloft] 100 mg PO DAILY 08/20/17 Acetaminophen [Tylenol] 1,000 mg PO Q8H PRN PRN tab 09/08/17 Apixaban [Eliquis] 5 mg PO BID #60 tab 09/08/17 Docusate Sodium [Colace] 100 mg PO DAILY PRN PRN 12/09/17 Furosemide [Lasix] 20 mg PO LUNCH 12/09/17 Furosemide [Lasix] 40 mg PO DAILY 12/09/17 Loratadine 10 mg PO DAILY 12/09/17 Nystatin Powder [Mycostatin Powder] 1 applic TOPICAL BID PRN PRN 12/09/17 Olanzapine [Zyprexa] 2.5 mg PO DAILY 12/09/17 Tiotropium [place] [Spiriva] 18 mcg IH DAILY 12/09/17 Surgical History: Surgical History (Last Reviewed 10/21/17 @ 12:51 by YVETTE Pimentel) History of repair of thoracic aortic aneurysm (Chronic) Onset Date: ~12/11/09 Z98.890, Z86.79 H/O aortic valve replacement (Chronic) Onset Date: ~12/11/09 Z95.2 # 29 Freestyle valve Surgical History: - - He has a bioprosthetic aortic valve replacement, abdominal aortic aneurysm repair '05, recent surgery to repair a large ventral hernia. Psychiatric History: Anxiety, Depression Smoking Status: Former smoker Tobacco Use: Cigarettes - *Family History Maternal Family History: Family History (Last Reviewed 10/21/17 @ 12:51 by YVETTE Pimentel) Brother TBI (traumatic brain injury) Sister Ulcerative colitis History Items: Hypertension, - - Patient's father at the age of 94 from old age. Patient's mother at age of 87 with a history of hyperlipidemia and hypertension. Paternal Family History: Family History (Last Reviewed 10/21/17 @ 12:51 by YVETTE Pimentel) Brother TBI (traumatic brain injury) Sister Ulcerative colitis History Items: Hypertension Review of Systems Constitutional: Reports: Fatigue Eyes: Denies: Blurred vision, Pain HEENT: Denies: Head Aches, Sinus Congestion, Sinus Drainage Cardiovascular: Reports: Edema, Orthopnea - chronic Respiratory: Reports: Shortness of breath at rest, Shortness of breath upon exertion Gastrointestinal: Denies: Abdominal Pain, Nausea, Vomiting Genitourinary: Denies: Dysuria Musculoskeletal: Reports: Shoulder Pain - chronic-due to falling, - - Left knee pain due to osteoarthritis Skin: Reports: Wounds - A bilateral legs. Neurological: Denies: Slurred speech, Confusion, Focal weakness Psychiatric: Reports: Depression Hematologic/ Lymphatic: Denies: Easy Bruising, Easy Bleeding VTE Information - Inpt Only VTE Present on Admission: No VTE Mechan Device Prophylaxis: None Reason prophylaxis not ordered:: Medical Contraindication - Physical Exam General: Alert, Oriented x3, Cooperative HEENT: Atraumatic, PERRLA, EOMI, Normocephalic Neck: Supple Lungs: Rhonchi Cardiovascular: - - Diminished heart sounds (likely due to obesity) Abdomen: Obese, - - Diminished Extremities: Edema - +2 Skin: - - Longitudinal excoriation spanning anti-bilateral denney Musculoskeletal: Tenderness - Bilateral feet Lymphatic: No Cervical, Supraclavicular, or Inguinal Adenopathy Neurological: Cranial nerves II-XII grossly intact Psych/Mental Status: Normal Affect Vital Signs Temp Pulse Resp BP Pulse Ox 98.0 F 82 18 171/83 H 94 12/09/17 17:38 12/09/17 19:46 12/09/17 19:46 12/09/17 19:46 12/09/17 19:46 Oxygen Flow Rate (L/min) 4 Oxygen Delivery Method Nasal Cannula Weight: 167.3 kg Body Mass Index (BMI) 56.0 Finger Stick Blood Glucose 116 Laboratory Tests Past 24 Hrs 12/09/17 12/09/17 12/09/17 17:48 17:48 17:48 WBC 6.8 RBC 2.71 L Hgb 6.7 L Hct 23.2 L MCV 85.6 MCH 24.7 L MCHC 28.9 L RDW 15.3 H RDW Differential 48.1 H Plt Count 222 MPV 8.6 Immature Gran % (Auto) 0.400 Neut % (Auto) 76.8 H Lymph % (Auto) 10.1 L Starke % (Auto) 9.8 Eos % (Auto) 2.8 Baso % (Auto) 0.1 Absolute Neuts (auto) 5.2 Absolute Lymphs (auto) 0.68 L Total Counted Not Reportable Specimen Type Sample Site pH Bicarbonate Actual POC Total CO2 Base Excess O2 Saturation ABG pCO2 ABG pO2 Hilario Test O2 Delivery Device Liter Flow Blood Gas Notified Whom Blood Gas Notified Time Sodium 138 Potassium 4.6 Chloride 99 Carbon Dioxide 34.0 H Anion Gap 5 BUN 24 H Creatinine 1.07 Estim Creat Clear Calc 58.60 Est GFR (MDRD) Af Amer 87 Est GFR (MDRD) Non-Af 72 BUN/Creatinine Ratio 22.4 H Glucose 74 Lactic Acid 1.0 Calcium 9.3 Troponin I < 0.015 12/09/17 18:36 WBC RBC Hgb Hct MCV MCH MCHC RDW RDW Differential Plt Count MPV Immature Gran % (Auto) Neut % (Auto) Lymph % (Auto) Starke % (Auto) Eos % (Auto) Baso % (Auto) Absolute Neuts (auto) Absolute Lymphs (auto) Total Counted Specimen Type ART Sample Site L Radial pH 7.37 Bicarbonate Actual 32.2 H POC Total CO2 34 Base Excess 7 H O2 Saturation 96 ABG pCO2 56.2 H ABG pO2 89 Hilario Test POS O2 Delivery Device Nasal Can Liter Flow 3.0 Blood Gas Notified Whom ED MD Blood Gas Notified Time 1830 Sodium Potassium Chloride Carbon Dioxide Anion Gap BUN Creatinine Estim Creat Clear Calc Est GFR (MDRD) Af Amer Est GFR (MDRD) Non-Af BUN/Creatinine Ratio Glucose Lactic Acid Calcium Troponin I Assessment/Plan All Active Problems (Last Reviewed 12/09/17 @ 21:05 by Garrett Whitley MD) Acute on chronic diastolic heart failure (Acute) Bilateral lower leg cellulitis (Acute) Open wound, lower leg (Acute) Acute on chronic respiratory failure with hypoxia and hypercapnia (Acute) Dyspnea (Acute) Tobacco abuse (Resolved) Edema of both legs (Acute) COPD (chronic obstructive pulmonary disease) (Acute) CAP (community acquired pneumonia) (Resolved) CHF exacerbation (Resolved) Hyperkalemia (Resolved) Hypomagnesemia (Resolved) Hyponatremia (Resolved) Patient is a 72 year old M with a significant history of CAD, CVA stroke TIA, CHF, asthma COPD, GERD, PE, diabetes mellitus, hypertension, high cholesterol, lymphedema, continues home oxygen use; aortic aneurysm repair and bovine aortic valve replacements , umbilical hernia repair who presents because of worsening shortness of breath concerning for acute exacerbation of heart failure and COPD. Acute hypoxic and hypercarbic chronic respiratory failure secondary to COPD exacerbation and heart failure Acute heart failure with preserved ejection fraction CXR shows congestion with small left basilar a new effusion Echo on 3029 2017 is as below This was a 2D Doppler, Color Flow transthoracic echocardiogram. The study was technically difficult. The study was technically limited. Due to body habitus. Contrast injection was performed. Exam performed portable in patient room. Left Ventricle Normal LV size. Moderate concentric left ventricular hypertrophy. Left ventricular systolic function is normal. The estimated ejection fraction is 60 %. No regional wall motion abnormalities noted. Right Ventricle Normal RV size. Normal systolic function. Pericardium/Pleural No pericardial effusion. BNP ordered Patient received Lasix 40 mg IV push ?1 in the ED Patient reports taking Lasix 40 mg twice a day at home Lasix 40 mg IV push twice a day or date Acute COPD exacerbation ABG with some hypercarbia and hypoxia Solu-Medrol 125 received at the ED Solu-Medrol 40 mg every 8 hours ordered and Scheduled DuoNeb and As needed albuterol Home breathing treatments continued on Zithromax ordered Uses Home CPAP. We will do BiPAP nightly at this time. Anemia Two weeks ago his hemoglobin was 8.0. Hemoglobin on the outcome of admission 6.7. No source of bleeding identified Patient has a history of chronic anemia. While units of packed red blood cells ordered at the ED. Repeat hemoglobin 1 hour after transfusion is completed. Fecal occult blood test ordered Iron and ferritin studies ordered Vitamin B12 and folate level ordered. Diabetes mellitus Home metformin and Amaryl held Lantus continued Prandial insulin and correction scale insulin added History of pulmonary embolism Continue home Eliquis Chronic wound and lymphedema Continue current dressing Wound care consult. Hypertension continue clonidine, losartan and metoprolol Gout continue allopurinol DVT prophylaxis On Eliquis continued Code Visit Inpatient E&M: 15042 Init Hosp L3
--- NOTE | 2017-12-09 20:56 | NURSING ---
Called er chargemaster analyst, pt ok to come to floor.
[2017-12-09 21:45] LABS: Ferritin 81 ng/mL (26-388); Iron 15 ug/dL (65-175); Iron Binding Capacity,Total 186 ug/dL (250-450); PERCENT IRON SATURATION 8.1 % (15.0-55.0)
[2017-12-09 22:50] LABS: Bedside Glucose 94 mg/dL (70-110)
[2017-12-09] MEDS: Ipratropium/Albuterol Sulfate 3 ML AMPUL.NEB INHALATION (22:57)
[2017-12-09 23:24] LABS: BNP,B-Type NATRIURETIC PEPTIDE 205.8 pg/mL (0-100)
[2017-12-09] MEDS: APIXABAN 5 MG TABLET PO (23:38)
[2017-12-09] MEDS: 0.9% NaCl Peripheral Flush Adult/Peds IV (23:38)
[2017-12-09] MEDS: Atorvastatin Calcium 40 MG Tablet PO (23:40)
[2017-12-09] MEDS: guaiFENesin 600 MG Tablet PO (23:40)
[2017-12-09] MEDS: Doxazosin 4 MG Tablet 8 MG PO (23:40)
[2017-12-09] MEDS: Metoprolol Tartrate 50 MG Tablet PO (23:40)
[2017-12-09] MEDS: Magnesium Oxide 400 MG Tablet 800 MG PO (23:41)
[2017-12-09] MEDS: Spironolactone 25 MG Tablet PO (23:41)
[2017-12-09] MEDS: Sertraline 50 MG Tablet PO (23:42)
[2017-12-10] VITALS (33 sets, daily range): BP systolic 116–149; BP diastolic 43–70; PULSE 57–83; RESP 12–23; TEMP 35.8–37; O2SAT 95–100
[2017-12-10] MEDS: 0.9% NaCl Peripheral Flush Adult/Peds IV ×5 (02:02→16:16)
[2017-12-10] MEDS: Ipratropium/Albuterol Sulfate 3 ML AMPUL.NEB INHALATION ×5 (03:07→19:01)
[2017-12-10] MEDS: Furosemide 40 MG/4 ML Vial IV ×3 (06:17→22:59)
[2017-12-10] MEDS: Budesonide Respules 0.5 MG/2 ML AMPUL.NEB. INHALATION ×2 (07:04→19:01)
[2017-12-10 07:06] LABS: Bedside Glucose 161 mg/dL (70-110)
[2017-12-10 07:49] LABS: Absolute Lymphocyte Count 0.53 X10^3/ul (0.83-4.51); Basophil# 0.01 X10^3/uL; Basophil% 0.1 % (0-1); Differential Indicated SCAN CRITERIA MET; Hematocrit 24.1 % (40-54); Hemoglobin 7.2 g/dl (13.0-16.5); Lymphocyte # 0.53 X10^3/ul (4.0); Lymphocyte % 6.8 % (19-41); Mean Corp Hgb Conc 29.9 g/gl (32-36); Mean Corpuscular Hgb 25.4 pg (27.0-32.0); Mean Corpuscular Volume 84.9 fL (80-94); Mean Platelet Vol. 8.8 fl (6.2-12.0); Monocyte# 0.27 X10^3/uL; Monocyte% 3.4 % (0-10); Neutrophil % 89.3 % (47-70); POSITIVE COUNT NO; POSITIVE DIFFERENTIAL YES; POSITIVE MORPHOLOGY NO; Platelet Count 242 K/mm3 (150-450); RBC Distribution Width CV 15.1 % (11.6-14.6); RBC Distribution Width SD 47.4 fl (35.1-43.9); Red Blood Count 2.84 M/mm3 (4.6-6.2); White Blood Count 7.8 K/mm3 (4.4-11.0)
[2017-12-10 08:38] LABS: BUN 27 mg/dL (7-18); Glucose 156 mg/dL (74-106)
[2017-12-10 08:39] LABS: Anion Gap 7 (5-15); BUN/Creat Ratio 24.5 RATIO (10-20); Calcium,Total 8.4 mg/dL (8.5-10.1); Chloride 97 mmol/L (98-107); EST Glomerular Filtration Rate 69 mL/min (>60); Est Glom Filt Rate - Afr Amer 84 mL/min (>60); Potassium 4.9 mmol/L (3.5-5.1); Sodium Level 136 mmol/L (136-145)
[2017-12-10] MEDS: Ferrous Sulfate 325 MG Tablet PO (08:46)
[2017-12-10] MEDS: Multivitamins,Therapeutic Tablet 1 TABLET PO (08:46)
[2017-12-10] MEDS: Insulin Lispro 100 UNIT/ML INSULN.PEN SQ ×4 (08:53→23:00)
[2017-12-10] MEDS: Losartan Potassium 100 MG Tablet PO (08:55)
[2017-12-10] MEDS: Loratadine 10 MG Tablet PO (08:55)
[2017-12-10] MEDS: Spironolactone 25 MG Tablet PO ×2 (08:55→22:57)
[2017-12-10] MEDS: Metoprolol Tartrate 50 MG Tablet PO ×2 (08:56→22:58)
[2017-12-10] MEDS: Clopidogrel Bisulfate 75 MG Tablet PO (08:56)
[2017-12-10] MEDS: Magnesium Oxide 400 MG Tablet 800 MG PO ×2 (08:56→22:58)
[2017-12-10] MEDS: guaiFENesin 600 MG Tablet PO (08:56)
[2017-12-10] MEDS: APIXABAN 5 MG TABLET PO (08:56)
[2017-12-10] MEDS: Finasteride 5 MG Tablet PO (08:57)
[2017-12-10] MEDS: Pantoprazole Sodium 20 MG Tablet PO (08:57)
[2017-12-10] MEDS: Allopurinol 300 MG Tablet PO (08:58)
[2017-12-10] MEDS: OLANZapine 2.5 MG Tablet PO (08:58)
[2017-12-10] MEDS: Sertraline 100 MG Tablet PO (08:59)
[2017-12-10] MEDS: Glucerna Shake 120 ML LIQUID 60 ML PO (09:09)
[2017-12-10 11:35] LABS: Bedside Glucose 300 mg/dL (70-110)
--- NOTE | 2017-12-10 12:21 | NURSING ---
wound photo: left lateral lower leg
--- NOTE | 2017-12-10 12:22 | NURSING ---
wound photo: right lateral lower leg
--- NOTE | 2017-12-10 14:34 | PN_ITS ---
Subjective: Patient seen and examined. Continues to complain of shortness of breath and cough although he states this is improved since admission. Denies chest pain. - Physical Exam General: Alert, Oriented x3, Cooperative, No apparent distress HEENT: Atraumatic, PERRLA, EOMI, Normocephalic Neck: Supple, No JVD, Negative Carotid Bruits Lungs: Diminished, Rhonchi, Wheezes Abdomen: Bowel Sounds Present, Soft, Non Tender, Obese, Hernia Extremities: No clubbing, No cyanosis, Edema - Bilateral lower extremities Skin: No rashes, No breakdown Musculoskeletal: No Tenderness to Palpation of Joints or Extremities Neurological: Cranial nerves II-XII grossly intact, Neuro grossly intact Psych/Mental Status: Normal Affect, Appropriate Vital Signs Temp Pulse Resp BP Pulse Ox 98.6 F 76 18 149/60 H 95 12/10/17 08:31 12/10/17 11:09 12/10/17 10:55 12/10/17 08:31 12/10/17 10:55 Oxygen Flow Rate (L/min) 3 Oxygen Delivery Method Bi-pap Weight: 356 lb 0.745 oz Body Mass Index (BMI) 54.4 Intake and Output for Last 24 Hours 12/08/17 12/09/17 12/10/17 23:59 23:59 23:59 Intake Total 1282 / 1282 Output Total 2250 / 2250 Balance -968 / -968 Laboratory Tests Past 24 Hrs 12/09/17 12/09/17 12/10/17 22:30 22:30 07:30 WBC RBC Hgb Hct MCV MCH MCHC RDW RDW Differential Plt Count MPV Immature Gran % (Auto) Neut % (Auto) Lymph % (Auto) Josephine % (Auto) Eos % (Auto) Baso % (Auto) Absolute Neuts (auto) Absolute Lymphs (auto) Total Counted Sodium 136 Potassium 4.9 Chloride 97 L Carbon Dioxide 32.0 Anion Gap 7 BUN 27 H Creatinine 1.10 Estim Creat Clear Calc 57.00 Est GFR (MDRD) Af Amer 84 Est GFR (MDRD) Non-Af 69 BUN/Creatinine Ratio 24.5 H Glucose 156 H Calcium 8.4 L B-Natriuretic Peptide 205.8 H Vitamin B12 Folate 19.90 Blood Type A POSITIVE Antibody Screen NEGATIVE Crossmatch See Detail 12/10/17 12/10/17 07:30 07:30 WBC 7.8 RBC 2.84 L Hgb 7.2 L Hct 24.1 L MCV 84.9 MCH 25.4 L MCHC 29.9 L RDW 15.1 H RDW Differential 47.4 H Plt Count 242 MPV 8.8 Immature Gran % (Auto) 0.400 Neut % (Auto) 89.3 H Lymph % (Auto) 6.8 L Josephine % (Auto) 3.4 Eos % (Auto) 0.0 Baso % (Auto) 0.1 Absolute Neuts (auto) 7.0 Absolute Lymphs (auto) 0.53 L Total Counted Not Reportable Sodium Potassium Chloride Carbon Dioxide Anion Gap BUN Creatinine Estim Creat Clear Calc Est GFR (MDRD) Af Amer Est GFR (MDRD) Non-Af BUN/Creatinine Ratio Glucose Calcium B-Natriuretic Peptide Vitamin B12 Pending Folate Blood Type Antibody Screen Crossmatch POC Glucose 12/10/17 12/10/17 12/09/17 11:30 07:02 22:00 POC Glucose 300 H 161 H 94 Medical Necessity - Tobacco Use Smoking Status: Former smoker Tobacco Use: Cigarettes Assessment/Plan All Active Problems (Last Reviewed 12/09/17 @ 21:05 by Garrett Whitley MD) Acute on chronic diastolic heart failure (Acute) Bilateral lower leg cellulitis (Acute) Open wound, lower leg (Acute) Acute on chronic respiratory failure with hypoxia and hypercapnia (Acute) Dyspnea (Acute) Tobacco abuse (Resolved) Edema of both legs (Acute) COPD (chronic obstructive pulmonary disease) (Acute) CAP (community acquired pneumonia) (Resolved) CHF exacerbation (Resolved) Hyperkalemia (Resolved) Hypomagnesemia (Resolved) Hyponatremia (Resolved) Patient is a 72-year-old male admitted 12/09/2017 due to shortness of breath. He has a past medical history of AOCD, BPH, HTN, Diabetes mellitus type II w/ neuropathy, Tobacco use, CHF, CKD stage II, COPD, History of AVR, History of AAA s/p repair, GERD, Morbid Obesity PVD, Hx Ileus, super obesity. 1. Acute on chronic hypoxic respiratory failure-secondary to COPD exacerbation and acute on chronic diastolic CHF. Continue supplement oxygen to maintain O2 at or above 90%. Patient chronically wears 3 L nasal cannula at baseline. Patient follows with Dr. Clay. 2. COPD exacerbation-continue IV Solu-Medrol. Albuterol and DuoNeb aerosols. PEP/IS. Continue IV azithromycin. Mucinex 1200 mg p.o. twice daily. 3. Acute on chronic diastolic CHF-echocardiogram July 2017 with an EF of 60%. Chest x-ray on admission with mild CHF. BNP 205. Continue Lasix IV 40 mg every 8 hours. Strict I&O. Daily weight. 4. Acute anemia on anemia of chronic disease/iron deficiency anemia-status post 1 unit packed red blood cells transfusion. Continue iron supplementation. Check stool for occult blood. Trend CBC. Monitor for IV ?1. 5. Obstructive sleep apnea-continue BiPAP nightly and PRN. 6. Type 2 diabetes [id number] before meals at bedtime with sliding scale insulin. Continue home Lantus regimen. 7. Hypertension-stable, continue home regimen. 8. Hyperlipidemia-continue statin. 9. Chronic kidney disease stage II-stable, continue to monitor. 10. BPH-continue home regimen. 11. History of aortic valve replacement 12. History of AAA status post repair/thoracic aortic aneurysm-continue outpatient monitoring. 13. GERD-continue PPI. 14. Super obesity-encourage diet and lifestyle modifications. Nutrition consult. 15. PVD with chronic lower extremity wounds-Juan wrap bilateral lower extremities. Wound RN consult. DVT prophylaxis-Elenaquiris. This patient was seen by YVETTE Chun under the supervision of Dr. Wilcox.
--- NOTE | 2017-12-10 15:11 | CASEMGMT ---
Face to Face with patient for initial transition planning/care coordination assessment. COREY PEREZ introduced self and role at [facility], pt voices understanding and consents to assessment at this time. Pt is sitting up in chair on bipap in no distress at this time. Pt is A/O x4 at this time and answers all questions appropriately at this time. Care providers, pharmacy, and demographics verified. See attached link. Pt voices no further concerns/needs at this time. Advised pt to ask for CM if any further questions/concerns/needs arise, voices understanding. CM to follow for any further discharge planning/needs. PLAN: [place] COREY PEREZ
[2017-12-10 15:13] LABS: Hematocrit 23.4 % (40-54)
[2017-12-10] MEDS: guaiFENesin 1,200 MG Tablet 1200 MG PO ×2 (16:24→22:59)
[2017-12-10 16:30] LABS: Bedside Glucose 233 mg/dL (70-110)
--- NOTE | 2017-12-10 18:00 | NURSING ---
When verifying blood with another nurse, fenwal bracelet appeared to be cut and taped together. Blood sent back to blood bank. This RN not comfortable administering any blood products at this time given the condition of band. Pt to be T/S again and issued new fenwal bracelet. guest room inspector Starla aware.
--- NOTE | 2017-12-10 21:01 | NURSING ---
Blood initiated by this RN at 2100 at rate of 15cc/hr. Verified by COREY Maciel. Consent signed, vitals taken, pt has had blood transfusions prior. No further questions at this time.
[2017-12-10] MEDS: Sertraline 50 MG Tablet PO (22:59)
[2017-12-10] MEDS: Atorvastatin Calcium 40 MG Tablet PO (23:00)
[2017-12-10] MEDS: Doxazosin 4 MG Tablet 8 MG PO (23:01)
[2017-12-10 23:30] LABS: Bedside Glucose 217 mg/dL (70-110)
[2017-12-11] VITALS (26 sets, daily range): BP systolic 124–145; BP diastolic 45–58; PULSE 57–81; RESP 12–26; TEMP 36.3–36.8; O2SAT 83–100
--- NOTE | 2017-12-11 00:55 | NURSING ---
Patient completed unit of blood at 0005; pt had no reactions at this time. Pt tolerated well. Flushed IV with NS.
[2017-12-11] MEDS: Ipratropium/Albuterol Sulfate 3 ML AMPUL.NEB INHALATION ×6 (03:54→22:33)
[2017-12-11] MEDS: 0.9% NaCl Peripheral Flush Adult/Peds IV ×2 (06:12→14:40)
[2017-12-11] MEDS: Furosemide 40 MG/4 ML Vial IV (06:12)
[2017-12-11 06:16] LABS: Hematocrit 25.5 % (40-54); Hemoglobin 7.7 g/dl (13.0-16.5); Mean Corp Hgb Conc 30.2 g/gl (32-36); Mean Corpuscular Volume 86.1 fL (80-94); Mean Platelet Vol. 8.9 fl (6.2-12.0); Platelet Count 250 K/mm3 (150-450); RBC Distribution Width CV 15.4 % (11.6-14.6); RBC Distribution Width SD 48.8 fl (35.1-43.9); Red Blood Count 2.96 M/mm3 (4.6-6.2); White Blood Count 7.2 K/mm3 (4.4-11.0)
[2017-12-11 06:20] LABS: Scan Indicated on CBC? Y/N NO
[2017-12-11 06:35] LABS: Anion Gap 4 (5-15); BUN 37 mg/dL (7-18); BUN/Creat Ratio 30.3 RATIO (10-20); Calcium,Total 8.8 mg/dL (8.5-10.1); Chloride 97 mmol/L (98-107); Creatinine, Serum 1.22 mg/dL (0.70-1.30); EST Glomerular Filtration Rate 62 mL/min (>60); Est Glom Filt Rate - Afr Amer 75 mL/min (>60); Estimated Creatinine Clearance 51.39 ml/min; Glucose 181 mg/dL (74-106); Potassium 5.2 mmol/L (3.5-5.1); Sodium Level 135 mmol/L (136-145)
[2017-12-11] MEDS: Budesonide Respules 0.5 MG/2 ML AMPUL.NEB. INHALATION ×2 (06:56→18:48)
--- NOTE | 2017-12-11 06:58 | RAD_ITS ---
STUDY: X-RAY CHEST REASON FOR EXAM: Male, 72 years old. Acute process in patient with shortness of breath. TECHNIQUE: PA and lateral views of the chest. COMPARISON: Comparison is made with prior study dated December 09, 2017. FINDINGS: Surgical clips are seen in the right axillary region. The previously seen vascular congestion has improved. Residual pleural-parenchymal changes persist at the right lung base although there has been improvement. Residual increased markings at the left lung base with blunting of the left costophrenic angle. Sternal cerclage wires and vascular clips are present from a prior sternotomy and coronary artery bypass graft procedure (CABG). Normal mediastinum and radha. Normal visualized pulmonary arteries. There is atherosclerotic calcification of the aortic arch with tortuosity. There are degenerative changes of the visualized thoracic spine. Normal visualized ribs, clavicles, and shoulders. There is no demonstrated abnormality of the visualized soft tissue structures of the upper abdomen. RAD/Chest PA and Lateral IMPRESSION: Improved aeration and improved vascular congestion as compared to prior study. Residual changes persist. Electronically Signed: Gab Ruth MD at 11:07 EDT Tel [phone], Service support ,
--- NOTE | 2017-12-11 07:03 | PN_ITS ---
Subjective: Patient was seen independently in conjunction with Colleen Hope NP. He is a 72-year-old male with super obesity, coronary artery disease, history of CVA, chronic congestive heart failure, COPD, GERD, history of PE, diabetes mellitus type 2, hypertension, hyperlipidemia, chronic anticoagulation with apixaban, chronic respiratory failure with hypoxemia, history of aortic aneurysm repair and bovine aortic valve replacement and severe venous insufficiency who presented to the emergency room complaining of increasing shortness of breath and increased leg edema for the preceding week. HGB at admission to the hospital was 6.7 and he has received a total of 3 units of PRBC's. CXR at admission appeared to be consistent with CHF however he is a very large man and the inspiratory effort was poor. VS at presentation to the ED were temperature 98?F, pulse rate 96, blood pressure 170/77, respiratory rate 20 and he was 95% saturated on a 5 L nasal cannula and 96% saturated to 98% saturated on a 3-1/2 L cannula. White blood cell count was normal at 6.8 with 77% neutrophils. Hemoglobin was 6.7 with an MCV of 85.6 and an RDW 15.3. Hemoglobin for the past 3 months has ranged from 8.0-10.8. BNP was 205.8. He was admitted to the hospital and started on IV Lasix, solu-medrol, Azithromycin and aerosolized bronchodilators. Echocardiogram done in July 2007 showed an ejection fraction of 60% with moderate concentric left ventricular hypertrophy. There were no regional wall motion abnormalities. All events the past 24 hours of been reviewed. Day #3 antibiotics. He is 100% saturated currently on BIPAP with a 35% FIO2 Fluid balance since admission is -638......he has been incontinent of urine so the balance may be even more negative. Weight has decreased from 359 pounds and 6 ounces at admission to 356 pounds on 12/10/2017. Lab: Hemoglobin today is 7.7, up from six-point 3:07 units of packed red cells. White blood cell count remains normal at 7.2 and the platelets are within normal limits. Potassium today is 5.2 and the BUN and creatinine are 37 and 1.22 respectively up from 24 and 1.07 since admission. BS's are not adequately controlled - likely due to the high dose steroids. - Physical Exam General: Alert, Oriented x3, No apparent distress Neck: - - Short thick neck, difficult to palpate pulses Lungs: Diminished - Throughout, Rhonchi, Wheezes - Mild-marked improvement since admission Cardiovascular: - - Very distant heart sounds secondary to body habitus-cannot appreciate murmur or gallop Abdomen: Soft, Non Tender, Non-Distended, Obese Extremities: Edema Vital Signs Temp Pulse Resp BP Pulse Ox 97.6 F L 62 16 131/48 H 100 12/11/17 04:55 12/11/17 04:55 12/11/17 04:55 12/11/17 04:55 12/11/17 04:55 Oxygen Flow Rate (L/min) 3 Oxygen Delivery Method Bi-pap Weight: 356 lb 0.745 oz Body Mass Index (BMI) 54.4 Intake and Output for Last 24 Hours 12/09/17 12/10/17 12/11/17 23:59 23:59 23:59 Intake Total 1862 / 1862 1050 / 1050 Output Total 2475 / 2475 1075 / 1075 Balance -613 / -613 -25 / -25 Laboratory Tests Past 24 Hrs 12/09/17 12/09/17 12/10/17 22:30 22:30 07:30 WBC RBC Hgb Hct MCV MCH MCHC RDW RDW Differential Plt Count MPV Immature Gran % (Auto) Neut % (Auto) Lymph % (Auto) Chambers % (Auto) Eos % (Auto) Baso % (Auto) Absolute Neuts (auto) Absolute Lymphs (auto) Total Counted Sodium 136 Potassium 4.9 Chloride 97 L Carbon Dioxide 32.0 Anion Gap 7 BUN 27 H Creatinine 1.10 Estim Creat Clear Calc 57.00 Est GFR (MDRD) Af Amer 84 Est GFR (MDRD) Non-Af 69 BUN/Creatinine Ratio 24.5 H Glucose 156 H Calcium 8.4 L Vitamin B12 Folate 19.90 Blood Type Antibody Screen Crossmatch See Detail See Detail 12/10/17 12/10/17 12/10/17 07:30 07:30 14:55 WBC 7.8 RBC 2.84 L Hgb 7.2 L 7.0 L Hct 24.1 L 23.4 L MCV 84.9 MCH 25.4 L MCHC 29.9 L RDW 15.1 H RDW Differential 47.4 H Plt Count 242 MPV 8.8 Immature Gran % (Auto) 0.400 Neut % (Auto) 89.3 H Lymph % (Auto) 6.8 L Chambers % (Auto) 3.4 Eos % (Auto) 0.0 Baso % (Auto) 0.1 Absolute Neuts (auto) 7.0 Absolute Lymphs (auto) 0.53 L Total Counted Not Reportable Sodium Potassium Chloride Carbon Dioxide Anion Gap BUN Creatinine Estim Creat Clear Calc Est GFR (MDRD) Af Amer Est GFR (MDRD) Non-Af BUN/Creatinine Ratio Glucose Calcium Vitamin B12 Pending Folate Blood Type Antibody Screen Crossmatch 12/10/17 12/11/17 12/11/17 17:47 05:45 05:45 WBC 7.2 RBC 2.96 L Hgb 7.7 L Hct 25.5 L MCV 86.1 MCH 26.0 L MCHC 30.2 L RDW 15.4 H RDW Differential 48.8 H Plt Count 250 MPV 8.9 Immature Gran % (Auto) Neut % (Auto) Lymph % (Auto) Chambers % (Auto) Eos % (Auto) Baso % (Auto) Absolute Neuts (auto) Absolute Lymphs (auto) Total Counted Sodium 135 L Potassium 5.2 H Chloride 97 L Carbon Dioxide 34.0 H Anion Gap 4 L BUN 37 H Creatinine 1.22 Estim Creat Clear Calc 51.39 Est GFR (MDRD) Af Amer 75 Est GFR (MDRD) Non-Af 62 BUN/Creatinine Ratio 30.3 H Glucose 181 H Calcium 8.8 Vitamin B12 Folate Blood Type A POSITIVE Antibody Screen NEGATIVE Crossmatch See Detail POC Glucose 12/10/17 12/10/17 12/10/17 22:49 16:26 11:30 POC Glucose 217 H 233 H 300 H 12/10/17 07:02 POC Glucose 161 H Medical Necessity - Tobacco Use Smoking Status: Former smoker Tobacco Use: Cigarettes Assessment/Plan All Active Problems (Last Reviewed 12/09/17 @ 21:05 by Garrett Whitley MD) Acute on chronic diastolic heart failure (Acute) Bilateral lower leg cellulitis (Acute) Open wound, lower leg (Acute) Acute on chronic respiratory failure with hypoxia and hypercapnia (Acute) Dyspnea (Acute) Tobacco abuse (Resolved) Edema of both legs (Acute) COPD (chronic obstructive pulmonary disease) (Acute) CAP (community acquired pneumonia) (Resolved) CHF exacerbation (Resolved) Hyperkalemia (Resolved) Hypomagnesemia (Resolved) Hyponatremia (Resolved) Impressions 1. acute exacerbation COPD + acute diastolic CHF due to high BP's 2. Chronic hypoxic respiratory failure -acute respiratory failure ruled out 3. Acute on chronic diastolic congestive heart failure 4. Iron deficiency anemia -status post transfusion of 3 units packed red blood cells and hemoglobin is currently stable. 5. Super obesity, diabetes mellitus type 2, obstructive sleep apnea, hypertension, hyperlipidemia, chronic renal failure stage II, BPH, GERD all complicated care and prognosis The plan for care was discussed with Colleen and orders were written. Hemoccult stool was negative today-suggest outpatient colonoscopy. Code Visit Inpatient E&M: 08513 Subs Hosp L2
[2017-12-11 07:50] LABS: Hemoglobin A1c 6.4 % (4.2-6.3)
[2017-12-11 08:17] LABS: Vitamin B12 540 pg/mL (211-911)
[2017-12-11] MEDS: Insulin Lispro 100 UNIT/ML INSULN.PEN SQ ×4 (08:20→21:57)
[2017-12-11] MEDS: Ferrous Sulfate 325 MG Tablet PO (08:23)
[2017-12-11] MEDS: Multivitamins,Therapeutic Tablet 1 TABLET PO (08:23)
[2017-12-11] MEDS: Spironolactone 25 MG Tablet PO ×2 (09:16→21:53)
[2017-12-11] MEDS: Pantoprazole Sodium 20 MG Tablet PO (09:17)
[2017-12-11] MEDS: Allopurinol 300 MG Tablet PO (09:17)
[2017-12-11] MEDS: Losartan Potassium 100 MG Tablet PO (09:17)
[2017-12-11] MEDS: guaiFENesin 1,200 MG Tablet 1200 MG PO ×2 (09:18→21:53)
[2017-12-11] MEDS: Magnesium Oxide 400 MG Tablet 800 MG PO ×2 (09:18→21:53)
[2017-12-11] MEDS: Clopidogrel Bisulfate 75 MG Tablet PO (09:18)
[2017-12-11] MEDS: Metoprolol Tartrate 50 MG Tablet PO ×2 (09:19→21:54)
[2017-12-11] MEDS: Loratadine 10 MG Tablet PO (09:19)
[2017-12-11] MEDS: Finasteride 5 MG Tablet PO (09:19)
[2017-12-11] MEDS: OLANZapine 2.5 MG Tablet PO (09:20)
[2017-12-11] MEDS: Sertraline 100 MG Tablet PO (09:20)
[2017-12-11] MEDS: Furosemide 80 MG Tablet PO ×2 (09:35→16:29)
[2017-12-11 10:41] LABS: Bedside Glucose 186 mg/dL (70-110)
[2017-12-11 12:41] LABS: Bedside Glucose 348 mg/dL (70-110)
--- NOTE | 2017-12-11 12:44 | PN_ITS ---
Subjective: Patient seen and examined. Resting in chair in no acute distress. Notes improvement of shortness of breath. Continues to have cough which is now mildly productive. Denies chest pain. - Physical Exam General: Alert, Oriented x3, Cooperative, No apparent distress HEENT: Atraumatic, PERRLA, EOMI, Normocephalic Neck: Supple, No JVD, Negative Carotid Bruits Lungs: Diminished, Rhonchi, Wheezes Abdomen: Bowel Sounds Present, Soft, Non Tender, Obese, Hernia Extremities: No clubbing, No cyanosis, Edema - Bilateral lower extremities Skin: No rashes, No breakdown Musculoskeletal: No Tenderness to Palpation of Joints or Extremities Neurological: Cranial nerves II-XII grossly intact, Neuro grossly intact Psych/Mental Status: Normal Affect, Appropriate Vital Signs Temp Pulse Resp BP Pulse Ox 98.1 F 77 20 H 124/46 H 97 12/11/17 09:27 12/11/17 11:13 12/11/17 11:04 12/11/17 09:27 12/11/17 11:04 Oxygen Flow Rate (L/min) 3 Oxygen Delivery Method Nasal Cannula Weight: 351 lb 3.2 oz Body Mass Index (BMI) 54.4 Intake and Output for Last 24 Hours 12/09/17 12/10/17 12/11/17 23:59 23:59 23:59 Intake Total 1862 / 1862 1630 / 1630 Output Total 2475 / 2475 1375 / 1375 Balance -613 / -613 255 / 255 Microbiology Past 72 Hours 12/11/17 07:30 Respiratory Panel (PCR) - Final Mucosa - Nasopharyngeal Laboratory Tests Past 24 Hrs 12/09/17 12/09/17 12/10/17 22:30 22:30 07:30 WBC RBC Hgb Hct MCV MCH MCHC RDW RDW Differential Plt Count MPV Sodium Potassium Chloride Carbon Dioxide Anion Gap BUN Creatinine Estim Creat Clear Calc Est GFR (MDRD) Af Amer Est GFR (MDRD) Non-Af BUN/Creatinine Ratio Glucose Hemoglobin A1c Calcium Vitamin B12 540 Blood Type Antibody Screen Crossmatch See Detail See Detail 12/10/17 12/10/17 12/11/17 14:55 17:47 05:45 WBC 7.2 RBC 2.96 L Hgb 7.0 L 7.7 L Hct 23.4 L 25.5 L MCV 86.1 MCH 26.0 L MCHC 30.2 L RDW 15.4 H RDW Differential 48.8 H Plt Count 250 MPV 8.9 Sodium Potassium Chloride Carbon Dioxide Anion Gap BUN Creatinine Estim Creat Clear Calc Est GFR (MDRD) Af Amer Est GFR (MDRD) Non-Af BUN/Creatinine Ratio Glucose Hemoglobin A1c Calcium Vitamin B12 Blood Type A POSITIVE Antibody Screen NEGATIVE Crossmatch See Detail 12/11/17 12/11/17 05:45 05:45 WBC RBC Hgb Hct MCV MCH MCHC RDW RDW Differential Plt Count MPV Sodium 135 L Potassium 5.2 H Chloride 97 L Carbon Dioxide 34.0 H Anion Gap 4 L BUN 37 H Creatinine 1.22 Estim Creat Clear Calc 51.39 Est GFR (MDRD) Af Amer 75 Est GFR (MDRD) Non-Af 62 BUN/Creatinine Ratio 30.3 H Glucose 181 H Hemoglobin A1c 6.4 H Calcium 8.8 Vitamin B12 Blood Type Antibody Screen Crossmatch POC Glucose 12/11/17 12/10/17 12/10/17 07:02 22:49 16:26 POC Glucose 186 H 217 H 233 H Medical Necessity - Tobacco Use Smoking Status: Former smoker Tobacco Use: Cigarettes Assessment/Plan All Active Problems (Last Reviewed 12/09/17 @ 21:05 by Garrett Whitley MD) Acute on chronic diastolic heart failure (Acute) Bilateral lower leg cellulitis (Acute) Open wound, lower leg (Acute) Acute on chronic respiratory failure with hypoxia and hypercapnia (Acute) Dyspnea (Acute) Tobacco abuse (Resolved) Edema of both legs (Acute) COPD (chronic obstructive pulmonary disease) (Acute) CAP (community acquired pneumonia) (Resolved) CHF exacerbation (Resolved) Hyperkalemia (Resolved) Hypomagnesemia (Resolved) Hyponatremia (Resolved) Patient is a 72-year-old male admitted 12/09/2017 due to shortness of breath. He has a past medical history of AOCD, BPH, HTN, Diabetes mellitus type II w/ neuropathy, Tobacco use, CHF, CKD stage II, COPD, History of AVR, History of AAA s/p repair, GERD, Morbid Obesity PVD, Hx Ileus, super obesity. 1. Chronic hypoxic respiratory failure, acute respiratory failure ruled out- secondary to COPD exacerbation and acute on chronic diastolic CHF. Continue supplement oxygen to maintain O2 at or above 90%. Patient chronically wears 3 L nasal cannula at baseline. Patient follows with Dr. Clay. 2. COPD exacerbation-continue IV Solu-Medrol. Recommend transition to oral prednisone tomorrow. Albuterol and DuoNeb aerosols. PEP/IS. Completed 3 day course of IV azithromycin. Mucinex 1200 mg p.o. twice daily. Respiratory panel negative. 3. Acute on chronic diastolic CHF-echocardiogram July 2017 with an EF of 60%. Chest x-ray on admission with mild CHF. BNP 205. Strict I&O. Daily weight. Patient's weight is down approximately 17 pounds since admission. IV Lasix discontinued. Continue Lasix 80 mg p.o. twice daily. Repeat chest x-ray demonstrates improved vascular congestion as compared to prior examination. 4. Acute anemia on anemia of chronic disease/iron deficiency anemia-status post 3 unit packed red blood cells transfusion. Continue iron supplementation. Check stool for occult blood. Trend CBC. Recommend outpatient follow-up with GI. 5. Obstructive sleep apnea-continue BiPAP nightly and PRN. 6. Type 2 diabetes [id number] before meals at bedtime with sliding scale insulin. Continue home Lantus regimen. 7. Hypertension-stable, continue home regimen. 8. Hyperlipidemia-continue statin. 9. Chronic kidney disease stage II-stable, continue to monitor. 10. BPH-continue home regimen. 11. History of aortic valve replacement 12. History of AAA status post repair/thoracic aortic aneurysm-continue outpatient monitoring. 13. GERD-continue PPI. 14. Super obesity-encourage diet and lifestyle modifications. Nutrition consult. 15. PVD with chronic lower extremity wounds-Juan wrap bilateral lower extremities. Wound RN consult. DVT prophylaxis-Eliquis on hold secondary to #4. SCDs. This patient was seen by Colleen Hope NP-Ranjit under the supervision of Dr. Wilcox.
--- NOTE | 2017-12-11 14:00 | CPS ---
1315...PT 83% ON BIPAP WITH AN FIO2 OF 35%. FIO2 INCREASED TO 45%. NURSE AWARE OF CHANGE.
--- NOTE | 2017-12-11 15:26 | CPS ---
Pt was 99% on 45% FiO2. FIO2 decreased back down to 35%. Sat. 97% on 35%. Nurse aware of change.
[2017-12-11] MEDS: Sodium Polystyrene Sulfonate 15 GM/60 ML UDC 30 GM PO (16:18)
[2017-12-11 16:51] LABS: Bedside Glucose 233 mg/dL (70-110)
[2017-12-11] MEDS: Atorvastatin Calcium 40 MG Tablet PO (21:54)
[2017-12-11] MEDS: Sertraline 50 MG Tablet PO (21:55)
[2017-12-11] MEDS: Doxazosin 4 MG Tablet 8 MG PO (21:56)
[2017-12-11 22:16] LABS: Bedside Glucose 239 mg/dL (70-110)
[2017-12-12] VITALS (25 sets, daily range): BP systolic 124–166; BP diastolic 58–81; PULSE 54–89; RESP 12–35; TEMP 36.4–37; O2SAT 90–99
[2017-12-12] MEDS: Ipratropium/Albuterol Sulfate 3 ML AMPUL.NEB INHALATION ×6 (02:33→22:37)
[2017-12-12 06:16] LABS: Hematocrit 27.6 % (40-54); Hemoglobin 8.4 g/dl (13.0-16.5); Mean Corp Hgb Conc 30.4 g/gl (32-36); Mean Corpuscular Hgb 26.6 pg (27.0-32.0); Mean Corpuscular Volume 87.3 fL (80-94); Mean Platelet Vol. 9.1 fl (6.2-12.0); Platelet Count 325 K/mm3 (150-450); RBC Distribution Width CV 15.1 % (11.6-14.6); RBC Distribution Width SD 46.8 fl (35.1-43.9); Red Blood Count 3.16 M/mm3 (4.6-6.2); White Blood Count 9.7 K/mm3 (4.4-11.0)
[2017-12-12 06:43] LABS: Anion Gap 7 (5-15); BUN 45 mg/dL (7-18); BUN/Creat Ratio 36.9 RATIO (10-20); Calcium,Total 9.3 mg/dL (8.5-10.1); Chloride 95 mmol/L (98-107); Creatinine, Serum 1.22 mg/dL (0.70-1.30); EST Glomerular Filtration Rate 62 mL/min (>60); Est Glom Filt Rate - Afr Amer 75 mL/min (>60); Estimated Creatinine Clearance 51.39 ml/min; Glucose 186 mg/dL (74-106); Potassium 4.8 mmol/L (3.5-5.1); Sodium Level 139 mmol/L (136-145)
[2017-12-12] MEDS: 0.9% NaCl Peripheral Flush Adult/Peds IV (06:43)
[2017-12-12] MEDS: Budesonide Respules 0.5 MG/2 ML AMPUL.NEB. INHALATION ×2 (06:48→19:24)
[2017-12-12 07:01] LABS: Bedside Glucose 171 mg/dL (70-110)
[2017-12-12] MEDS: Ferrous Sulfate 325 MG Tablet PO ×2 (08:47→18:00)
[2017-12-12] MEDS: Allopurinol 300 MG Tablet PO (08:47)
[2017-12-12] MEDS: Multivitamins,Therapeutic Tablet 1 TABLET PO (08:47)
[2017-12-12] MEDS: Spironolactone 25 MG Tablet PO ×2 (08:48→21:43)
[2017-12-12] MEDS: Insulin Lispro 100 UNIT/ML INSULN.PEN SQ ×3 (08:48→21:49)
[2017-12-12] MEDS: Metoprolol Tartrate 50 MG Tablet PO ×2 (10:02→21:44)
[2017-12-12] MEDS: Loratadine 10 MG Tablet PO (10:02)
[2017-12-12] MEDS: Clopidogrel Bisulfate 75 MG Tablet PO (10:02)
[2017-12-12] MEDS: guaiFENesin 1,200 MG Tablet 1200 MG PO ×2 (10:02→21:44)
[2017-12-12] MEDS: Furosemide 80 MG Tablet PO ×2 (10:02→18:00)
[2017-12-12] MEDS: Losartan Potassium 100 MG Tablet PO (10:02)
[2017-12-12] MEDS: Magnesium Oxide 400 MG Tablet 800 MG PO ×2 (10:02→21:44)
[2017-12-12] MEDS: Sertraline 100 MG Tablet PO (10:04)
[2017-12-12] MEDS: Pantoprazole Sodium 20 MG Tablet PO (10:04)
[2017-12-12] MEDS: Finasteride 5 MG Tablet PO (10:04)
[2017-12-12] MEDS: OLANZapine 2.5 MG Tablet PO (10:05)
[2017-12-12 11:56] LABS: Bedside Glucose 222 mg/dL (70-110)
--- NOTE | 2017-12-12 12:39 | PCM.PROGNOTE ---
<Colleen Hope - Last Filed: 12/12/17 14:35> Subjective: Patient seen and examined. States breathing is improved. Continues to have cough with very minimal sputum production. Lower extremity edema improved. Denies fever, chills. Denies other current complaints. - Physical Exam General: Alert, Oriented x3, Cooperative, No apparent distress HEENT: Atraumatic, PERRLA, EOMI, Normocephalic Neck: Supple, No JVD, Negative Carotid Bruits Lungs: Diminished, - - Faint scattered wheezing Cardiovascular: Regular rate, Regular Rhythm, Normal S1, Normal S2, No murmurs Abdomen: Bowel Sounds Present, Soft, Non Tender, Non-Distended, Obese, Hernia Extremities: No clubbing, No cyanosis, Capillary Refill Less than 3 Seconds, Edema - Bilateral lower extremities Skin: No rashes, No breakdown Musculoskeletal: No Tenderness to Palpation of Joints or Extremities Neurological: Cranial nerves II-XII grossly intact, Neuro grossly intact Psych/Mental Status: Normal Affect, Appropriate Vital Signs Temp Pulse Resp BP Pulse Ox 97.6 F L 76 24 H 166/70 H 90 12/12/17 09:55 12/12/17 11:26 12/12/17 11:09 12/12/17 10:02 12/12/17 09:55 Oxygen Flow Rate (L/min) 4.5 Oxygen Delivery Method Nasal Cannula Weight: 344 lb 10.9 oz Body Mass Index (BMI) 54.4 Intake and Output for Last 24 Hours 12/10/17 12/11/17 12/12/17 23:59 23:59 23:59 Intake Total 1862 / 1862 2295 / 2295 420 / 420 Output Total 2475 / 2475 2675 / 2675 1650 / 1650 Balance -613 / -613 -380 / -380 -1230 / -1230 Microbiology Past 72 Hours 12/11/17 16:00 Stool Occult Blood (ESTEFANIA) - Final Stool 12/11/17 07:30 Respiratory Panel (PCR) - Final Mucosa - Nasopharyngeal Laboratory Tests Past 24 Hrs 12/09/17 12/12/17 12/12/17 22:30 05:32 05:32 WBC 9.7 RBC 3.16 L Hgb 8.4 L Hct 27.6 L MCV 87.3 MCH 26.6 L MCHC 30.4 L RDW 15.1 H RDW Differential 46.8 H Plt Count 325 MPV 9.1 Sodium 139 Potassium 4.8 Chloride 95 L Carbon Dioxide 37.0 H Anion Gap 7 BUN 45 H Creatinine 1.22 Estim Creat Clear Calc 51.39 Est GFR (MDRD) Af Amer 75 Est GFR (MDRD) Non-Af 62 BUN/Creatinine Ratio 36.9 H Glucose 186 H Calcium 9.3 Crossmatch See Detail POC Glucose 12/12/17 12/12/17 12/11/17 11:46 06:51 21:51 POC Glucose 222 H 171 H 239 H 12/11/17 12/11/17 16:26 12:09 POC Glucose 233 H 348 H Medical Necessity - Tobacco Use Smoking Status: Former smoker Tobacco Use: Cigarettes Assessment/Plan All Active Problems (Last Reviewed 12/09/17 @ 21:05 by Garrett Whitley MD) Acute on chronic diastolic heart failure (Acute) Bilateral lower leg cellulitis (Acute) Open wound, lower leg (Acute) Acute on chronic respiratory failure with hypoxia and hypercapnia (Acute) Dyspnea (Acute) Tobacco abuse (Resolved) Edema of both legs (Acute) COPD (chronic obstructive pulmonary disease) (Acute) CAP (community acquired pneumonia) (Resolved) CHF exacerbation (Resolved) Hyperkalemia (Resolved) Hypomagnesemia (Resolved) Hyponatremia (Resolved) Patient is a 72-year-old male admitted 12/09/2017 due to shortness of breath. He has a past medical history of AOCD, BPH, HTN, Diabetes mellitus type II w/ neuropathy, Tobacco use, CHF, CKD stage II, COPD, History of AVR, History of AAA s/p repair, GERD, Morbid Obesity PVD, Hx Ileus, super obesity. 1. Chronic hypoxic respiratory failure, acute respiratory failure ruled out-secondary to COPD exacerbation and acute on chronic diastolic CHF. Continue supplement oxygen to maintain O2 at or above 90%. Patient chronically wears 3 L nasal cannula at baseline. Patient follows with Dr. Clay. 2. COPD exacerbation-breathing /wheezing improved. Patient states he chronically has wheezing and shortness of breath at baseline. Albuterol and DuoNeb aerosols. PEP/IS. Completed 3 day course of IV azithromycin. Mucinex 1200 mg p.o. twice daily. Respiratory panel negative. 3. Acute on chronic diastolic CHF-echocardiogram July 2017 with an EF of 60%. Chest x-ray on admission with mild CHF. BNP 205. Strict I&O. Daily weight. Patient's weight is down approximately 17 pounds since admission. IV Lasix discontinued. Continue Lasix 80 mg p.o. twice daily. Repeat chest x-ray demonstrates improved vascular congestion as compared to prior examination. 4. Acute anemia on anemia of chronic disease/iron deficiency anemia-status post 3 unit packed red blood cells transfusion. Continue iron supplementation/ascorbic acid. Stool negative for occult blood. Trend CBC. Recommend outpatient follow-up with GI. Resume Eliquis and continue to monitor CBC. 5. Obstructive sleep apnea-continue BiPAP nightly and PRN. 6. Type 2 diabetes [id number] before meals at bedtime with sliding scale insulin. Continue home Lantus regimen. 7. Hypertension-stable, continue home regimen. 8. Hyperlipidemia-continue statin. 9. Chronic kidney disease stage II-stable, continue to monitor. 10. BPH-continue home regimen. 11. History of aortic valve replacement 12. History of AAA status post repair/thoracic aortic aneurysm-continue outpatient monitoring. 13. GERD-continue PPI. 14. Super obesity-encourage diet and lifestyle modifications. Nutrition consult. 15. PVD with chronic lower extremity wounds-Juan wrap bilateral lower extremities. Wound RN consult. DVT prophylaxis-Dorys Ugalde. This patient was seen by YVETTE Chun under the supervision of Dr. Simpson. <Sameera Simpson - Last Filed: 12/12/17 15:20> - Physical Exam Vital Signs Temp Pulse Resp BP Pulse Ox 98.6 F 76 24 H 153/58 H 94 12/12/17 12:23 12/12/17 15:01 12/12/17 15:01 12/12/17 12:23 12/12/17 15:01 Oxygen Flow Rate (L/min) 4 Oxygen Delivery Method Nasal Cannula Weight: 344 lb 10.9 oz Body Mass Index (BMI) 54.4 Intake and Output for Last 24 Hours 12/10/17 12/11/17 12/12/17 23:59 23:59 23:59 Intake Total 1862 / 1862 2295 / 2295 420 / 420 Output Total 2475 / 2475 2675 / 2675 2250 / 2250 Balance -613 / -613 -380 / -380 -1830 / -1830 Microbiology Past 72 Hours 12/11/17 16:00 Stool Occult Blood (ESTEFANIA) - Final Stool 12/11/17 07:30 Respiratory Panel (PCR) - Final Mucosa - Nasopharyngeal Laboratory Tests Past 24 Hrs 12/09/17 12/12/17 12/12/17 22:30 05:32 05:32 WBC 9.7 RBC 3.16 L Hgb 8.4 L Hct 27.6 L MCV 87.3 MCH 26.6 L MCHC 30.4 L RDW 15.1 H RDW Differential 46.8 H Plt Count 325 MPV 9.1 Total Counted Pending Neutrophils % (Manual) 89 H Lymphocytes % (Manual) 4 L Monocytes % (Manual) 7 Nucleated RBCs/100 WBC [address] Review May foll Sodium 139 Potassium 4.8 Chloride 95 L Carbon Dioxide 37.0 H Anion Gap 7 BUN 45 H Creatinine 1.22 Estim Creat Clear Calc 51.39 Est GFR (MDRD) Af Amer 75 Est GFR (MDRD) Non-Af 62 BUN/Creatinine Ratio 36.9 H Glucose 186 H Calcium 9.3 Crossmatch See Detail POC Glucose 12/12/17 12/12/17 12/11/17 11:46 06:51 21:51 POC Glucose 222 H 171 H 239 H 12/11/17 16:26 POC Glucose 233 H Assessment/Plan Patient seen by Colleen Hope nurse practitioner under my supervision Patient seen and examined. Agree with the above noted assessment. Patient be managed for CHF exacerbation. He remains short of breath and was wheezing but he said he had improved significantly since admission. Had mild wheezing in lung berkowitz bilaterally. To continue diuresis and breathing treatments. Of note patient has anemia which necessitated 3 units of packed red blood cell transfusion. Iron profile showed low iron saturation. Eliquis currently on hold. FOBT was negative. Will get general surgery consult. Per surgeon, will defer on EGD and colonoscopy whilst he is inpatient and scope on outpatient basis. To hold eliquis for one week, until he is followed up by surgeon in the office. on iron supplementation. Will continue holding Eliquis. Labs notable for elevated bicarbonate level; it is chronically elevated and is likely compensatory for chronic respiratory acidosis. Will monitor. Agree with above notes and assessment by Colleen Hope [employer] Code Visit Inpatient E&M: 34743 Subs Hosp L3
--- NOTE | 2017-12-12 12:47 | PN_ITS ---
Addendum entered and electronically signed by YVETTE Chun 12/12/17 14:36: Code Visit Patient will continue to hold eliquis at [place] until further follow up with Dr. Garcia next week in office. Addendum entered and electronically signed by YVETTE Chun 12/12/17 14:31: Code Visit Discussed patient's anemia with Dr. Garcia. Dr. Garcia does not plan on scope while inpatient and wishes to see patient on an outpatient basis for further workup/evaluation. Original Note: <Colleen Hope - Last Filed: 12/12/17 14:35> Subjective: Patient seen and examined. States breathing is improved. Continues to have cough with very minimal sputum production. Lower extremity edema improved. Denies fever, chills. Denies other current complaints. - Physical Exam General: Alert, Oriented x3, Cooperative, No apparent distress HEENT: Atraumatic, PERRLA, EOMI, Normocephalic Neck: Supple, No JVD, Negative Carotid Bruits Lungs: Diminished, - - Faint scattered wheezing Cardiovascular: Regular rate, Regular Rhythm, Normal S1, Normal S2, No murmurs Abdomen: Bowel Sounds Present, Soft, Non Tender, Non-Distended, Obese, Hernia Extremities: No clubbing, No cyanosis, Capillary Refill Less than 3 Seconds, Edema - Bilateral lower extremities Skin: No rashes, No breakdown Musculoskeletal: No Tenderness to Palpation of Joints or Extremities Neurological: Cranial nerves II-XII grossly intact, Neuro grossly intact Psych/Mental Status: Normal Affect, Appropriate Vital Signs Temp Pulse Resp BP Pulse Ox 97.6 F L 76 24 H 166/70 H 90 12/12/17 09:55 12/12/17 11:26 12/12/17 11:09 12/12/17 10:02 12/12/17 09:55 Oxygen Flow Rate (L/min) 4.5 Oxygen Delivery Method Nasal Cannula Weight: 344 lb 10.9 oz Body Mass Index (BMI) 54.4 Intake and Output for Last 24 Hours 12/10/17 12/11/17 12/12/17 23:59 23:59 23:59 Intake Total 1862 / 1862 2295 / 2295 420 / 420 Output Total 2475 / 2475 2675 / 2675 1650 / 1650 Balance -613 / -613 -380 / -380 -1230 / -1230 Microbiology Past 72 Hours 12/11/17 16:00 Stool Occult Blood (ESTEFANIA) - Final Stool 12/11/17 07:30 Respiratory Panel (PCR) - Final Mucosa - Nasopharyngeal Laboratory Tests Past 24 Hrs 12/09/17 12/12/17 12/12/17 22:30 05:32 05:32 WBC 9.7 RBC 3.16 L Hgb 8.4 L Hct 27.6 L MCV 87.3 MCH 26.6 L MCHC 30.4 L RDW 15.1 H RDW Differential 46.8 H Plt Count 325 MPV 9.1 Sodium 139 Potassium 4.8 Chloride 95 L Carbon Dioxide 37.0 H Anion Gap 7 BUN 45 H Creatinine 1.22 Estim Creat Clear Calc 51.39 Est GFR (MDRD) Af Amer 75 Est GFR (MDRD) Non-Af 62 BUN/Creatinine Ratio 36.9 H Glucose 186 H Calcium 9.3 Crossmatch See Detail POC Glucose 12/12/17 12/12/17 12/11/17 11:46 06:51 21:51 POC Glucose 222 H 171 H 239 H 12/11/17 12/11/17 16:26 12:09 POC Glucose 233 H 348 H Medical Necessity - Tobacco Use Smoking Status: Former smoker Tobacco Use: Cigarettes Assessment/Plan All Active Problems (Last Reviewed 12/09/17 @ 21:05 by Garrett Whitley MD) Acute on chronic diastolic heart failure (Acute) Bilateral lower leg cellulitis (Acute) Open wound, lower leg (Acute) Acute on chronic respiratory failure with hypoxia and hypercapnia (Acute) Dyspnea (Acute) Tobacco abuse (Resolved) Edema of both legs (Acute) COPD (chronic obstructive pulmonary disease) (Acute) CAP (community acquired pneumonia) (Resolved) CHF exacerbation (Resolved) Hyperkalemia (Resolved) Hypomagnesemia (Resolved) Hyponatremia (Resolved) Patient is a 72-year-old male admitted 12/09/2017 due to shortness of breath. He has a past medical history of AOCD, BPH, HTN, Diabetes mellitus type II w/ neuropathy, Tobacco use, CHF, CKD stage II, COPD, History of AVR, History of AAA s/p repair, GERD, Morbid Obesity PVD, Hx Ileus, super obesity. 1. Chronic hypoxic respiratory failure, acute respiratory failure ruled out- secondary to COPD exacerbation and acute on chronic diastolic CHF. Continue supplement oxygen to maintain O2 at or above 90%. Patient chronically wears 3 L nasal cannula at baseline. Patient follows with Dr. Clay. 2. COPD exacerbation-breathing /wheezing improved. Patient states he chronically has wheezing and shortness of breath at baseline. Albuterol and DuoNeb aerosols. PEP/IS. Completed 3 day course of IV azithromycin. Mucinex 1200 mg p.o. twice daily. Respiratory panel negative. 3. Acute on chronic diastolic CHF-echocardiogram July 2017 with an EF of 60%. Chest x-ray on admission with mild CHF. BNP 205. Strict I&O. Daily weight. Patient's weight is down approximately 17 pounds since admission. IV Lasix discontinued. Continue Lasix 80 mg p.o. twice daily. Repeat chest x-ray demonstrates improved vascular congestion as compared to prior examination. 4. Acute anemia on anemia of chronic disease/iron deficiency anemia-status post 3 unit packed red blood cells transfusion. Continue iron supplementation/ ascorbic acid. Stool negative for occult blood. Trend CBC. Recommend outpatient follow-up with GI. Resume Eliquis and continue to monitor CBC. 5. Obstructive sleep apnea-continue BiPAP nightly and PRN. 6. Type 2 diabetes [id number] before meals at bedtime with sliding scale insulin. Continue home Lantus regimen. 7. Hypertension-stable, continue home regimen. 8. Hyperlipidemia-continue statin. 9. Chronic kidney disease stage II-stable, continue to monitor. 10. BPH-continue home regimen. 11. History of aortic valve replacement 12. History of AAA status post repair/thoracic aortic aneurysm-continue outpatient monitoring. 13. GERD-continue PPI. 14. Super obesity-encourage diet and lifestyle modifications. Nutrition consult. 15. PVD with chronic lower extremity wounds-Juan wrap bilateral lower extremities. Wound RN consult. DVT prophylaxis-Aftab, SCDs. This patient was seen by YVETTE Chun under the supervision of Dr. Simpson. <Sameera Simpson - Last Filed: 12/12/17 15:20> - Physical Exam Vital Signs Temp Pulse Resp BP Pulse Ox 98.6 F 76 24 H 153/58 H 94 12/12/17 12:23 12/12/17 15:01 12/12/17 15:01 12/12/17 12:23 12/12/17 15:01 Oxygen Flow Rate (L/min) 4 Oxygen Delivery Method Nasal Cannula Weight: 344 lb 10.9 oz Body Mass Index (BMI) 54.4 Intake and Output for Last 24 Hours 12/10/17 12/11/17 12/12/17 23:59 23:59 23:59 Intake Total 1862 / 1862 2295 / 2295 420 / 420 Output Total 2475 / 2475 2675 / 2675 2250 / 2250 Balance -613 / -613 -380 / -380 -1830 / -1830 Microbiology Past 72 Hours 12/11/17 16:00 Stool Occult Blood (ESTEFANIA) - Final Stool 12/11/17 07:30 Respiratory Panel (PCR) - Final Mucosa - Nasopharyngeal Laboratory Tests Past 24 Hrs 12/09/17 12/12/17 12/12/17 22:30 05:32 05:32 WBC 9.7 RBC 3.16 L Hgb 8.4 L Hct 27.6 L MCV 87.3 MCH 26.6 L MCHC 30.4 L RDW 15.1 H RDW Differential 46.8 H Plt Count 325 MPV 9.1 Total Counted Pending Neutrophils % (Manual) 89 H Lymphocytes % (Manual) 4 L Monocytes % (Manual) 7 Nucleated RBCs/100 WBC 1 Diff Path Review September Sodium 139 Potassium 4.8 Chloride 95 L Carbon Dioxide 37.0 H Anion Gap 7 BUN 45 H Creatinine 1.22 Estim Creat Clear Calc 51.39 Est GFR (MDRD) Af Amer 75 Est GFR (MDRD) Non-Af 62 BUN/Creatinine Ratio 36.9 H Glucose 186 H Calcium 9.3 Crossmatch See Detail POC Glucose 12/12/17 12/12/17 12/11/17 11:46 06:51 21:51 POC Glucose 222 H 171 H 239 H 12/11/17 16:26 POC Glucose 233 H Assessment/Plan Patient seen by Colleen Hope nurse practitioner under my supervision Patient seen and examined. Agree with the above noted assessment. Patient be managed for CHF exacerbation. He remains short of breath and was wheezing but he said he had improved significantly since admission. Had mild wheezing in lung berkowitz bilaterally. To continue diuresis and breathing treatments. Of note patient has anemia which necessitated 3 units of packed red blood cell transfusion. Iron profile showed low iron saturation. Eliquis currently on hold. FOBT was negative. Will get general surgery consult. Per surgeon, will defer on EGD and colonoscopy whilst he is inpatient and scope on outpatient basis. To hold eliquis for one week, until he is followed up by surgeon in the office. on iron supplementation. Will continue holding Eliquis. Labs notable for elevated bicarbonate level; it is chronically elevated and is likely compensatory for chronic respiratory acidosis. Will monitor. Agree with above notes and assessment by Colleen CRAWFORD Code Visit Inpatient E&M: 75064 Subs Hosp L3
[2017-12-12 14:28] LABS: Scan Indicated on CBC? Y/N YES- FLAGS NOTED
[2017-12-12 15:11] LABS: Neutrophil-Segmented 89 % (47-70)
[2017-12-12 15:12] LABS: Lymphocyte 4 % (19-41); Monocyte 7 % (0-10); Nucleated Red Bld Cells,Manual 1 % (0-5)
[2017-12-12 15:18] LABS: Total Cells Counted 100 (MANUAL DIFF)
[2017-12-12] MEDS: Ascorbic Acid 500 MG Tablet PO (18:00)
[2017-12-12 20:36] LABS: Bedside Glucose 130 mg/dL (70-110)
[2017-12-12] MEDS: Sertraline 50 MG Tablet PO (21:43)
[2017-12-12] MEDS: Atorvastatin Calcium 40 MG Tablet PO (21:43)
[2017-12-12] MEDS: Doxazosin 4 MG Tablet 8 MG PO ×2 (21:45→22:00)
[2017-12-12 22:05] LABS: Bedside Glucose 152 mg/dL (70-110)
[2017-12-13] VITALS (27 sets, daily range): BP systolic 121–138; BP diastolic 46–71; PULSE 62–88; RESP 12–24; TEMP 36.1–36.9; O2SAT 90–98
[2017-12-13] MEDS: Ipratropium/Albuterol Sulfate 3 ML AMPUL.NEB INHALATION ×6 (03:11→22:53)
[2017-12-13 06:07] LABS: Hematocrit 29.7 % (40-54); Hemoglobin 8.8 g/dl (13.0-16.5); Mean Corp Hgb Conc 29.6 g/gl (32-36); Mean Corpuscular Hgb 26.6 pg (27.0-32.0); Mean Corpuscular Volume 89.7 fL (80-94); Mean Platelet Vol. 8.8 fl (6.2-12.0); Platelet Count 352 K/mm3 (150-450); RBC Distribution Width CV 15.5 % (11.6-14.6); RBC Distribution Width SD 49.6 fl (35.1-43.9); Red Blood Count 3.31 M/mm3 (4.6-6.2); White Blood Count 12.1 K/mm3 (4.4-11.0)
[2017-12-13 06:11] LABS: Scan Indicated on CBC? Y/N NO
[2017-12-13 06:21] LABS: Anion Gap 5 (5-15); BUN 46 mg/dL (7-18); BUN/Creat Ratio 32.2 RATIO (10-20); Calcium,Total 8.9 mg/dL (8.5-10.1); Chloride 94 mmol/L (98-107); Creatinine, Serum 1.43 mg/dL (0.70-1.30); EST Glomerular Filtration Rate 51 mL/min (>60); Est Glom Filt Rate - Afr Amer 62 mL/min (>60); Estimated Creatinine Clearance 43.85 ml/min; Glucose 80 mg/dL (74-106); Potassium 3.6 mmol/L (3.5-5.1); Sodium Level 138 mmol/L (136-145)
[2017-12-13 06:51] LABS: Bedside Glucose 85 mg/dL (70-110)
[2017-12-13] MEDS: Budesonide Respules 0.5 MG/2 ML AMPUL.NEB. INHALATION ×2 (06:54→19:13)
[2017-12-13] MEDS: Ascorbic Acid 500 MG Tablet PO ×2 (09:21→17:04)
[2017-12-13] MEDS: Allopurinol 300 MG Tablet PO (09:21)
[2017-12-13] MEDS: Spironolactone 25 MG Tablet PO ×2 (09:21→21:38)
[2017-12-13] MEDS: Sertraline 100 MG Tablet PO (09:21)
[2017-12-13] MEDS: Ferrous Sulfate 325 MG Tablet PO ×2 (09:22→17:04)
[2017-12-13] MEDS: Magnesium Oxide 400 MG Tablet 800 MG PO ×2 (09:22→21:40)
[2017-12-13] MEDS: Clopidogrel Bisulfate 75 MG Tablet PO (09:22)
[2017-12-13] MEDS: predniSONE 20 MG Tablet 40 MG PO (09:23)
[2017-12-13] MEDS: OLANZapine 2.5 MG Tablet PO (09:23)
[2017-12-13] MEDS: Furosemide 80 MG Tablet PO (09:23)
[2017-12-13] MEDS: Loratadine 10 MG Tablet PO (09:23)
[2017-12-13] MEDS: Pantoprazole Sodium 20 MG Tablet PO (09:24)
[2017-12-13] MEDS: guaiFENesin 1,200 MG Tablet 1200 MG PO ×2 (09:24→21:38)
[2017-12-13] MEDS: Finasteride 5 MG Tablet PO (09:24)
[2017-12-13] MEDS: Multivitamins,Therapeutic Tablet 1 TABLET PO (09:24)
[2017-12-13] MEDS: Losartan Potassium 100 MG Tablet PO (09:24)
[2017-12-13] MEDS: Metoprolol Tartrate 50 MG Tablet PO ×2 (09:27→21:38)
[2017-12-13] MEDS: Albuterol 2.5 MG/3 ML VIAL.NEB. INHALATION ×2 (09:42→12:55)
--- NOTE | 2017-12-13 11:46 | PN_ITS ---
<Colleen Hope - Last Filed: 12/13/17 11:46> Subjective: Patient seen and examined. Resting in chair in no acute distress. Denies current complaints. Breathing improved. Patient states he continues to have shortness of breath with minimal movement which is chronic for him. Agreeable to SNF at discharge. - Physical Exam General: Alert, Oriented x3, Cooperative HEENT: Atraumatic, PERRLA, EOMI, Normocephalic Neck: Supple, No JVD, Negative Carotid Bruits Lungs: Diminished, Wheezes Cardiovascular: Regular rate, Regular Rhythm, Normal S1, Normal S2, No murmurs Abdomen: Bowel Sounds Present, Soft, Non Tender, Obese, Hernia Extremities: No clubbing, No cyanosis, Edema - Bilateral lower extremities Skin: No rashes, No breakdown Musculoskeletal: No Tenderness to Palpation of Joints or Extremities Neurological: Cranial nerves II-XII grossly intact, Neuro grossly intact Psych/Mental Status: Normal Affect, Appropriate Vital Signs Temp Pulse Resp BP Pulse Ox 97 F L 72 22 H 121/63 H 94 12/13/17 09:35 12/13/17 10:47 12/13/17 10:47 12/13/17 09:35 12/13/17 10:47 Oxygen Flow Rate (L/min) 4 Oxygen Delivery Method Nasal Cannula Weight: 343 lb 4.156 oz Body Mass Index (BMI) 54.4 Intake and Output for Last 24 Hours 12/11/17 12/12/17 12/13/17 23:59 23:59 23:59 Intake Total 2295 / 2295 1070 / 1070 640 / 640 Output Total 2675 / 2675 3050 / 3050 1225 / 1225 Balance -380 / -380 -1980 / -1980 -585 / -585 Microbiology Past 72 Hours 12/11/17 16:00 Stool Occult Blood (ESTEFANIA) - Final Stool 12/11/17 07:30 Respiratory Panel (PCR) - Final Mucosa - Nasopharyngeal Laboratory Tests Past 24 Hrs 12/12/17 12/13/17 12/13/17 05:32 04:55 04:55 WBC 12.1 H RBC 3.31 L Hgb 8.8 L Hct 29.7 L MCV 89.7 MCH 26.6 L MCHC 29.6 L RDW 15.5 H RDW Differential 49.6 H Plt Count 352 MPV 8.8 Total Counted 100 Neutrophils % (Manual) 89 H Lymphocytes % (Manual) 4 L Monocytes % (Manual) 7 Nucleated RBCs/100 WBC 1 Diff Path Review September Sodium 138 Potassium 3.6 Chloride 94 L Carbon Dioxide 39.0 H Anion Gap 5 BUN 46 H Creatinine 1.43 H Estim Creat Clear Calc 43.85 Est GFR (MDRD) Af Amer 62 Est GFR (MDRD) Non-Af 51 L BUN/Creatinine Ratio 32.2 H Glucose 80 Calcium 8.9 POC Glucose 12/13/17 12/12/17 12/12/17 06:46 21:46 17:48 POC Glucose 85 152 H 130 H 12/12/17 11:46 POC Glucose 222 H Medical Necessity - Tobacco Use Smoking Status: Former smoker Tobacco Use: Cigarettes Assessment/Plan All Active Problems (Last Reviewed 12/09/17 @ 21:05 by Garrett Whitley MD) Acute on chronic diastolic heart failure (Acute) Bilateral lower leg cellulitis (Acute) Open wound, lower leg (Acute) Acute on chronic respiratory failure with hypoxia and hypercapnia (Acute) Dyspnea (Acute) Tobacco abuse (Resolved) Edema of both legs (Acute) COPD (chronic obstructive pulmonary disease) (Acute) CAP (community acquired pneumonia) (Resolved) CHF exacerbation (Resolved) Hyperkalemia (Resolved) Hypomagnesemia (Resolved) Hyponatremia (Resolved) Patient is a 72-year-old male admitted 12/09/2017 due to shortness of breath. He has a past medical history of AOCD, BPH, HTN, Diabetes mellitus type II w/ neuropathy, Tobacco use, CHF, CKD stage II, COPD, History of AVR, History of AAA s/p repair, GERD, Morbid Obesity PVD, Hx Ileus, super obesity. 1. Chronic hypoxic respiratory failure, acute respiratory failure ruled out- secondary to COPD exacerbation and acute on chronic diastolic CHF. Continue supplement oxygen to maintain O2 at or above 90%. Patient chronically wears 3 L nasal cannula at baseline. Patient follows with Dr. Clay. 2. COPD exacerbation-breathing /wheezing improved. Patient states he chronically has wheezing and shortness of breath at baseline. Albuterol and DuoNeb aerosols. PEP/IS. Completed 3 day course of IV azithromycin. Mucinex 1200 mg p.o. twice daily. Respiratory panel negative. Continue oral prednisone taper. 3. Acute on chronic diastolic CHF-echocardiogram July 2017 with an EF of 60%. Chest x-ray on admission with mild CHF. BNP 205. Strict I&O. Daily weight. Patient's weight is down approximately 25 pounds since admission. IV Lasix discontinued. Continue Lasix 80 mg p.o. twice daily. Repeat chest x-ray demonstrates improved vascular congestion as compared to prior examination. 4. Acute anemia on anemia of chronic disease/iron deficiency anemia-status post 3 unit packed red blood cells transfusion. Continue iron supplementation/ ascorbic acid. Stool negative for occult blood. Trend CBC. Patient will follow up with Dr. Garcia as outpatient next week. Continue to hold Eliquis until further evaluated by Dr. Garcia as outpatient. 5. Obstructive sleep apnea-continue BiPAP nightly and PRN. 6. Type 2 diabetes [id number] before meals at bedtime with sliding scale insulin. Continue home Lantus regimen. 7. Hypertension-stable, continue home regimen. 8. Hyperlipidemia-continue statin. 9. Chronic kidney disease stage II-stable, continue to monitor. 10. BPH-continue home regimen. 11. History of aortic valve replacement 12. History of AAA status post repair/thoracic aortic aneurysm-continue outpatient monitoring. 13. GERD-continue PPI. 14. Super obesity-encourage diet and lifestyle modifications. Nutrition consult. 15. PVD with chronic lower extremity wounds-Juan wrap bilateral lower extremities. Wound RN consult. DVT prophylaxis-Dorys Ugalde. Discharge planning: Patient agreeable to SNF at discharge. Notify case management. This patient was seen by YVETTE Chun under the supervision of Dr. Simpson. <Sameera Simpson - Last Filed: 12/13/17 16:25> - Physical Exam Vital Signs Temp Pulse Resp BP Pulse Ox 97.7 F L 72 24 H 124/59 H 94 12/13/17 14:09 12/13/17 15:27 12/13/17 15:27 12/13/17 14:09 12/13/17 15:27 Oxygen Flow Rate (L/min) 4 Oxygen Delivery Method Bi-pap Weight: 343 lb 4.156 oz Body Mass Index (BMI) 54.4 Intake and Output for Last 24 Hours 12/11/17 12/12/17 12/13/17 23:59 23:59 23:59 Intake Total 2295 / 2295 1070 / 1070 990 / 990 Output Total 2675 / 2675 3050 / 3050 1600 / 1600 Balance -380 / -380 -1979 / -1979 -610 / -610 Microbiology Past 72 Hours 12/11/17 16:00 Stool Occult Blood (ESTEFANIA) - Final Stool 12/11/17 07:30 Respiratory Panel (PCR) - Final Mucosa - Nasopharyngeal Laboratory Tests Past 24 Hrs 12/13/17 12/13/17 12/13/17 04:55 04:55 16:10 WBC 12.1 H RBC 3.31 L Hgb 8.8 L Hct 29.7 L MCV 89.7 MCH 26.6 L MCHC 29.6 L RDW 15.5 H RDW Differential 49.6 H Plt Count 352 MPV 8.8 Sodium 138 Potassium 3.6 Chloride 94 L Carbon Dioxide 39.0 H Anion Gap 5 BUN 46 H Creatinine 1.43 H Estim Creat Clear Calc 43.85 Est GFR (MDRD) Af Amer 62 Est GFR (MDRD) Non-Af 51 L BUN/Creatinine Ratio 32.2 H Glucose 80 Calcium 8.9 Magnesium Pending POC Glucose 12/13/17 12/13/17 12/12/17 12:03 06:46 21:46 POC Glucose 173 H 85 152 H 12/12/17 17:48 POC Glucose 130 H Assessment/Plan Patient seen by Colleen Hope nurse practitioner under my supervision. Patient seen and examined today. He was sitting up in a chair comfortably eating breakfast. He had no complaints. Shortness of breath had resolved. He denied any fever or chills, any cough chest pain, shortness of breath, no abdominal pain diarrhea or vomiting. Review of systems otherwise negative. o/e: General: Alert, Oriented x3, Cooperative HEENT: Atraumatic, PERRLA, EOMI, Normocephalic Neck: Supple, No JVD, Negative Carotid Bruits Lungs: Diminished, Wheezes and crackles are markedly increased Cardiovascular: Regular rate, Regular Rhythm, Normal S1, Normal S2, No murmurs Abdomen: Bowel Sounds Present, Soft, Non Tender, markedly obese, Hernia Extremities: No clubbing, No cyanosis, Edema - Bilateral lower extremities Skin: No rashes, No breakdown Musculoskeletal: No Tenderness to Palpation of Joints or Extremities Neurological: Cranial nerves II-XII grossly intact, Neuro grossly intact Psych/Mental Status: Normal Affect, Appropriate Patient remains on 2 L of oxygen maintaining saturation above 90%. Usually on 3 L at home. CHF exacerbation is resolved. Now on p.o. Lasix 80 mg twice daily. Patient stable and ready to be discharged. However came in yesterday and said that she cannot take care of patient at home and wants him to go to a care home. Patient not agreeable to go to SNF. Case management to start precert process tomorrow. Agree with rest of Colleen Hope nurse practitioner's note. Code Visit Inpatient E&M: 38789 Subs Hosp L2
[2017-12-13] MEDS: Insulin Lispro 100 UNIT/ML INSULN.PEN SQ ×3 (12:05→21:39)
[2017-12-13 12:16] LABS: Bedside Glucose 173 mg/dL (70-110)
[2017-12-13 16:26] LABS: Magnesium 2.5 mg/dL (1.6-2.6)
[2017-12-13] MEDS: Furosemide 40 MG Tablet PO (17:08)
[2017-12-13 17:11] LABS: Bedside Glucose 209 mg/dL (70-110)
[2017-12-13] MEDS: Sertraline 50 MG Tablet PO (21:37)
[2017-12-13] MEDS: Atorvastatin Calcium 40 MG Tablet PO (21:37)
[2017-12-13 22:16] LABS: Bedside Glucose 320 mg/dL (70-110)
[2017-12-14] VITALS (15 sets, daily range): BP systolic 125–141; BP diastolic 60–70; PULSE 53–85; RESP 12–20; TEMP 36.3–36.5; O2SAT 91–98
[2017-12-14 02:43] LABS: Anion Gap 3 (5-15); BUN 54 mg/dL (7-18); BUN/Creat Ratio 34.4 RATIO (10-20); Calcium,Total 8.7 mg/dL (8.5-10.1); Chloride 96 mmol/L (98-107); Creatinine, Serum 1.57 mg/dL (0.70-1.30); EST Glomerular Filtration Rate 46 mL/min (>60); Est Glom Filt Rate - Afr Amer 56 mL/min (>60); Estimated Creatinine Clearance 39.94 ml/min; Glucose 174 mg/dL (74-106); Potassium 4.2 mmol/L (3.5-5.1); Sodium Level 138 mmol/L (136-145)
[2017-12-14] MEDS: Ipratropium/Albuterol Sulfate 3 ML AMPUL.NEB INHALATION ×4 (03:04→15:14)
[2017-12-14 06:26] LABS: Hematocrit 29.6 % (40-54); Hemoglobin 8.8 g/dl (13.0-16.5); Mean Corp Hgb Conc 29.7 g/gl (32-36); Mean Corpuscular Hgb 26.6 pg (27.0-32.0); Mean Corpuscular Volume 89.4 fL (80-94); Mean Platelet Vol. 8.8 fl (6.2-12.0); Platelet Count 341 K/mm3 (150-450); RBC Distribution Width CV 16.1 % (11.6-14.6); RBC Distribution Width SD 50.2 fl (35.1-43.9); Red Blood Count 3.31 M/mm3 (4.6-6.2); White Blood Count 9.8 K/mm3 (4.4-11.0)
[2017-12-14 06:37] LABS: Scan Indicated on CBC? Y/N NO
[2017-12-14 06:41] LABS: Anion Gap 7 (5-15); BUN 56 mg/dL (7-18); Calcium,Total 8.9 mg/dL (8.5-10.1); Chloride 95 mmol/L (98-107); EST Glomerular Filtration Rate 53 mL/min (>60); Est Glom Filt Rate - Afr Amer 64 mL/min (>60); Estimated Creatinine Clearance 44.79 ml/min; Glucose 128 mg/dL (74-106); Sodium Level 142 mmol/L (136-145)
[2017-12-14] MEDS: Budesonide Respules 0.5 MG/2 ML AMPUL.NEB. INHALATION (06:43)
[2017-12-14 06:55] LABS: Bedside Glucose 138 mg/dL (70-110)
--- NOTE | 2017-12-14 07:28 | CPS ---
Pt on Bipap at this time
[2017-12-14] MEDS: Metoprolol Tartrate 50 MG Tablet PO (09:12)
[2017-12-14] MEDS: Allopurinol 300 MG Tablet PO (09:12)
[2017-12-14] MEDS: Pantoprazole Sodium 20 MG Tablet PO (09:12)
[2017-12-14] MEDS: Loratadine 10 MG Tablet PO (09:13)
[2017-12-14] MEDS: Losartan Potassium 100 MG Tablet PO (09:13)
[2017-12-14] MEDS: Spironolactone 25 MG Tablet PO (09:13)
[2017-12-14] MEDS: Magnesium Oxide 400 MG Tablet 800 MG PO (09:13)
[2017-12-14] MEDS: predniSONE 20 MG Tablet 40 MG PO (09:13)
[2017-12-14] MEDS: Clopidogrel Bisulfate 75 MG Tablet PO (09:14)
[2017-12-14] MEDS: Sertraline 100 MG Tablet PO (09:14)
[2017-12-14] MEDS: Ferrous Sulfate 325 MG Tablet PO (09:14)
[2017-12-14] MEDS: Ascorbic Acid 500 MG Tablet PO (09:14)
[2017-12-14] MEDS: guaiFENesin 1,200 MG Tablet 1200 MG PO (09:14)
[2017-12-14] MEDS: Finasteride 5 MG Tablet PO (09:15)
[2017-12-14] MEDS: Multivitamins,Therapeutic Tablet 1 TABLET PO (09:15)
[2017-12-14] MEDS: OLANZapine 2.5 MG Tablet PO (09:15)
[2017-12-14] MEDS: Furosemide 40 MG Tablet PO (09:16)
--- NOTE | 2017-12-14 10:47 | CASEMGMT ---
SW spoke with patient as he is now wanting placement. Patient's 2 choices were [facility] and TCU. SW verified with both places that they are full. SW spoke with patient and he then asked SW to talk with his about another option. BISI called patient's and spoke with her letting her know the above. She was okay with a referral being sent to [facility]. BISI told her this would happen today. She is meeting with [facility] today for custodial care assessment. BISI called Colleen in Case Management office and asked her to fax a referral to [facility]. Await response. Plan: SNF. Referral being faxed to [facility]. Brooke WILLOUGHBY
--- NOTE | 2017-12-14 10:48 | TREXTCA.CO_ITS ---
- Diet 12/09/17 20:43 Diet: Cardiac: Carb-Controlled Is pt able to select menu?: Yes - Routine Orders/Code Status Suppository Type: Dulcolax 10mg Suppository Frequency: Daily PRN O2 Liters per Minute: 2-4 O2 Frequency: Continuous Keep PO Greater than or Equal to (%): 90 Routine Lab Work: - - CBC, BMP in 3 days and then Q week. Code Status: Full Code - Wound(s) b/l legs Wound Type: small scattered scabbed areas from stasis dermatitis Dressing Change: Adaptic - Suggestions for Active Care Change Position every (hours): 2 Times a day to sit in chair: 3 - Therapies Physical Therapy: Eval and Treat Occupational Therapy: Eval and Treat - Problem/Diagnosis (1) Acute on chronic diastolic heart failure Status: Acute Current Visit: Yes (2) Acute on chronic respiratory failure with hypoxia and hypercapnia Status: Acute Current Visit: Yes (3) Bilateral lower leg cellulitis Status: Resolved Current Visit: No (4) COPD (chronic obstructive pulmonary disease) Status: Acute Comment: FEV1 58% Current Visit: No (5) Anemia Status: Acute Current Visit: Yes - Allergies/Procedures Done in Hospital Allergies/Adverse Reactions: Allergies naphazoline HCl [From Naphcon] Allergy (Severe, Verified 12/09/17 17:49) affected his breathing AFFECTED HIS BREATHING amlodipine besylate [From Norvasc] Allergy (Verified 12/09/17 17:49) Other dextromethorphan Allergy (Verified 12/09/17 17:49) Other levofloxacin [From Levaquin] Adverse Reaction (Mild, Verified 12/09/17 17:49) made me hyperactive made me hyperactive Procedures: None - Type of Care/Length of Stay Estimated LOS: Convalescent Care Less Than 30 days Type of Care Needed: Skilled Rehab Potential: Fair Prognosis: Fair - Additional Orders/Day of Discharge H&P will serve as current which was dated: 12/09/17 Day of Discharge: 12/14/17 - Dietary and Speech Recommendations Dietitian Recommendations/Changes: Rec 2000 calorie controlled, cardiac, low sodium diet w/ fluid restriction as indicated. Will d/c Glucerna ONS as PO intake and wt appear stable. - Follow Up Care Primary Care Physician: Jack Verdugo MD [Primary Care Provider] - Please follow up with your Primary Care Physician in: 1 Week Please Follow Up With: Brice Garcia MD When: This week, please call for appt. Please Follow Up With: Khari Clay DO - May see LEATHER GOODS II ASSEMBLER When: 1-2 Weeks
--- NOTE | 2017-12-14 10:50 | PCM.DC.SUM ---
Discharge Date and Diagnosis Date of Admission: 12/09/17 Date of Discharge: 12/14/17 - Primary Discharge Diagnosis Active and Suspected Problems (Last Reviewed 12/09/17 @ 21:05 by Garrett Whitley MD) 1. Chronic hypoxic respiratory failure 2. COPD exacerbation 3. Acute on chronic diastolic CHF 4. Acute anemia on anemia of chronic disease/iron deficiency anemia 5. Obstructive sleep apnea 6. PVD with chronic lower extremity wounds 7. Type 2 diabetes mellitus 8. Hypertension 9. Hyperlipidemia 10. Chronic kidney disease stage II 11. History of aortic valve replacement 12. History of AAA status post repair/thoracic aortic aneurysm 13. GERD 14. Super obesity - Secondary Discharge Diagnosis Chronic Problems (Last Reviewed 12/09/17 @ 21:05 by Garrett Whitley MD) History of repair of thoracic aortic aneurysm (Chronic ~12/11/09) Thoracic aortic aneurysm without rupture (Chronic) Venous stasis dermatitis (Chronic) Osteoarthritis (Chronic) Coronary artery disease (Chronic) Lymphedema (Chronic) Hyperlipidemia (Chronic) Super obesity (Chronic) Gout (Chronic) Depression (Chronic) Ulcer of right lower extremity with fat layer exposed (Chronic) Ulcer of left lower extremity with fat layer exposed (Chronic) Bilateral leg edema (Chronic) Tinea unguium (Chronic) Diabetes mellitus with neuropathy (Chronic) Delayed wound healing (Chronic) CKD (chronic kidney disease), stage II (Chronic) Wheezing (Chronic) MIKO (obstructive sleep apnea) (Chronic) BiPAP 18/12 cm of water HTN (hypertension) (Chronic) BPH (benign prostatic hypertrophy) (Chronic) Tinea unguium (Chronic) Diabetes mellitus with neuropathy (Chronic) Lymphedema of leg (Chronic) Multiple excoriations (Chronic) Asthma (Chronic) Arthritis (Chronic) Immobility (Chronic) 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 Patient was educated on the signs and symptoms of bleeding as such as hemoptysis, hematemesis, hematochezia or melena stools. Patient has been advised to watch for these symptoms contact the office if they present. Follow-up with Dr. Clay in approximately 8 weeks as previously scheduled. Adynamic ileus (Chronic) Ventral hernia (Chronic) Hypoglycemia (Chronic) Peripheral neuropathy (Chronic) Chronic anemia (Chronic) Benign prostatic hypertrophy without urinary obstruction (Chronic) CKD (chronic kidney disease), stage II (Chronic) CAD (coronary artery disease) (Chronic) Type II diabetes mellitus (Chronic) GERD (gastroesophageal reflux disease) (Chronic) Hypercholesteremia (Chronic) Morbid obesity (Chronic) Pulmonary hypertension (Chronic) H/O aortic valve replacement (Chronic ~12/11/09) # 29 Freestyle valve Venous insufficiency (Chronic) Hospital Course and Treatment Imaging Results: Diagnostic Data Chest X-Ray 12/11/17 06:58 IMPRESSION: Improved aeration and improved vascular congestion as compared to prior study. Residual changes persist. Electronically Signed: Gab Ruth MD at 11:07 EDT Tel [phone], Service support , Consultations 12/09/17 20:42 Consult: Onc/Wound/counter dish carrier Routine Comment: Reason for Consult:: wound on bilateral lower ext Operations: None Procedures: None Summary of Care Provided: Patient is a 72-year-old male admitted 12/09/2017 due to shortness of breath. He has a past medical history of AOCD, BPH, HTN, Diabetes mellitus type II w/ neuropathy, Tobacco use, CHF, CKD stage II, COPD, History of AVR, History of AAA s/p repair, GERD, Morbid Obesity PVD, Hx Ileus, super obesity. 1. Chronic hypoxic respiratory failure, acute respiratory failure ruled out-secondary to COPD exacerbation and acute on chronic diastolic CHF. Continue supplement oxygen to maintain O2 at or above 90%. Patient chronically wears 3 L nasal cannula at baseline. Patient follows with Dr. Clay. Follow up with Dr. Clay in 1-2 weeks. 2. COPD exacerbation-breathing /wheezing improved. Patient states he chronically has wheezing and shortness of breath at baseline. Albuterol and DuoNeb aerosols. PEP/IS. Completed 3 day course of IV azithromycin. Mucinex 1200 mg p.o. twice daily. Respiratory panel negative. Continue oral prednisone taper at discharge. 3. Acute on chronic diastolic CHF-echocardiogram July 2017 with an EF of 60%. Chest x-ray on admission with mild CHF. BNP 205. Patient's weight is down approximately 25 pounds since admission. IV Lasix discontinued. Repeat chest x-ray demonstrates improved vascular congestion as compared to prior examination. Continue home Lasix regimen. 4. Acute anemia on anemia of chronic disease/iron deficiency anemia-status post 3 unit packed red blood cells transfusion. Continue iron supplementation/ascorbic acid. Stool negative for occult blood. Patient will follow up with Dr. Garcia as outpatient this week. Continue to hold Eliquis until further evaluated by Dr. Garcia as outpatient. 5. Obstructive sleep apnea-continue CPAP nightly and PRN. 6. Type 2 diabetes mellitus-continue home oral and insulin regimen. 7. Hypertension-stable, continue home regimen. 8. Hyperlipidemia-continue statin. 9. Chronic kidney disease stage II-stable, continue to monitor. 10. BPH-continue home regimen. 11. History of aortic valve replacement 12. History of AAA status post repair/thoracic aortic aneurysm-continue outpatient monitoring. 13. GERD-continue PPI. 14. Super obesity-encourage diet and lifestyle modifications. 15. PVD with chronic lower extremity wounds-Juan wrap bilateral lower extremities. General: Alert, Oriented x3, Cooperative HEENT: Atraumatic, PERRLA, EOMI, Normocephalic Neck: Supple, No JVD, Negative Carotid Bruits Lungs: Diminished, Wheezes Cardiovascular: Regular rate, Regular Rhythm, Normal S1, Normal S2, No murmurs Abdomen: Bowel Sounds Present, Soft, Non Tender, Obese, Hernia Extremities: No clubbing, No cyanosis, Edema - Bilateral lower extremities Skin: No rashes, No breakdown Musculoskeletal: No Tenderness to Palpation of Joints or Extremities Neurological: Cranial nerves II-XII grossly intact, Neuro grossly intact Psych/Mental Status: Normal Affect, Appropriate Patient seen exam prior to discharge. Physical assessment as noted above. Patient stable for discharge to SNF. This patient was seen by YVETTE Chun under the supervision of Dr. Aguilar. Home Medications: Medications to take at Discharge Allopurinol [Zyloprim] 300 mg PO DAILY 03/30/17 Atorvastatin Calcium [Lipitor] 40 mg PO QHS 03/30/17 Clonidine Patch [Catapres-Tts3] 0.3 mg TOPICAL FR 03/30/17 Clopidogrel Bisulfate [Plavix] 75 mg PO DAILY 03/30/17 Finasteride [Proscar] 5 mg PO DAILY 03/30/17 Glimepiride [Amaryl] 8 mg PO BREAKFAST 03/30/17 Hydroxyzine HCl 25 mg PO TID PRN 03/30/17 Insulin Glargine [Lantus SoloStar Pen] 35 units PO BID 03/30/17 Lansoprazole 15 mg PO DAILY 03/30/17 Losartan Potassium 100 mg PO DAILY 03/30/17 Magnesium Oxide [Mag-Ox 400] 800 mg PO BID 03/30/17 Metformin HCl [Glucophage] 500 mg PO TID 03/30/17 Metoprolol Tartrate [Lopressor (beta maryam)] 50 mg PO BID 03/30/17 Multivitamins,Therapeutic [Multivitamin] 1 tab PO DAILY@0800 03/30/17 Sertraline HCl [Zoloft] 50 mg PO QHS 03/30/17 Spironolactone 25 mg PO BID 03/30/17 Terazosin HCl [Hytrin] 10 mg PO QHS 03/30/17 Fluticasone/Salmeterol [Advair 500-50 Diskus] 2 puff INHALATION Q12H 08/20/17 Sertraline HCl [Zoloft] 100 mg PO DAILY 08/20/17 Acetaminophen [Tylenol] 1,000 mg PO Q8H PRN PRN tab 09/08/17 Docusate Sodium [Colace] 100 mg PO DAILY PRN PRN 12/09/17 Furosemide [Lasix] 20 mg PO LUNCH 12/09/17 Furosemide [Lasix] 40 mg PO DAILY 12/09/17 Loratadine 10 mg PO DAILY 12/09/17 Nystatin Powder [Mycostatin Powder] 1 applic TOPICAL BID PRN PRN 12/09/17 Olanzapine [Zyprexa] 2.5 mg PO DAILY 12/09/17 Tiotropium [place] [Spiriva] 18 mcg IH DAILY 12/09/17 Albuterol Aerosols [Ventolin Aerosols] 2.5 mg INHALATION Q2H PRN PRN vial.neb. 12/14/17 Ascorbic Acid [Vitamin C] 500 mg PO BIDCM tablet 12/14/17 Ferrous Sulfate 325 mg PO BIDCM tablet 12/14/17 Guaifenesin [Mucinex] 1,200 mg PO BID tablet 12/14/17 Prednisone See Taper PO DAILY #30 tablet 12/14/17 Following Prescrptions Were Given to Patient: Prednisone See Taper PO DAILY #30 tablet Primary Care Physician: Jack Verdugo MD [Primary Care Provider] - Please follow up with your Primary Care Physician in: 1 Week Please Follow Up With: Brice Garcia MD When: This week, please call for appt. Please Follow Up With: Khari Clay DO - May see COMMUNICATIONS PROGRAMMER When: 1-2 Weeks Disposition: [facility] facility Minutes spent on discharge:: 35 Patient Condition:: Stable Medical Necessity - Tobacco Use Smoking Status: Former smoker Tobacco Use: Cigarettes Meaningful Use Info Meaningful Use Diagnoses (Choose all that apply): CHF - CHF JUAN/ARB ordered at discharge?: Yes Documented LVEF (%): 60
--- NOTE | 2017-12-14 10:56 | DS.PCM_ITS ---
Discharge Date and Diagnosis Date of Admission: 12/09/17 Date of Discharge: 12/14/17 - Primary Discharge Diagnosis Active and Suspected Problems (Last Reviewed 12/09/17 @ 21:05 by Garrett Whitley MD) 1. Chronic hypoxic respiratory failure 2. COPD exacerbation 3. Acute on chronic diastolic CHF 4. Acute anemia on anemia of chronic disease/iron deficiency anemia 5. Obstructive sleep apnea 6. PVD with chronic lower extremity wounds 7. Type 2 diabetes mellitus 8. Hypertension 9. Hyperlipidemia 10. Chronic kidney disease stage II 11. History of aortic valve replacement 12. History of AAA status post repair/thoracic aortic aneurysm 13. GERD 14. Super obesity - Secondary Discharge Diagnosis Chronic Problems (Last Reviewed 12/09/17 @ 21:05 by Garrett Whitley MD) History of repair of thoracic aortic aneurysm (Chronic ~12/11/09) Thoracic aortic aneurysm without rupture (Chronic) Venous stasis dermatitis (Chronic) Osteoarthritis (Chronic) Coronary artery disease (Chronic) Lymphedema (Chronic) Hyperlipidemia (Chronic) Super obesity (Chronic) Gout (Chronic) Depression (Chronic) Ulcer of right lower extremity with fat layer exposed (Chronic) Ulcer of left lower extremity with fat layer exposed (Chronic) Bilateral leg edema (Chronic) Tinea unguium (Chronic) Diabetes mellitus with neuropathy (Chronic) Delayed wound healing (Chronic) CKD (chronic kidney disease), stage II (Chronic) Wheezing (Chronic) MIKO (obstructive sleep apnea) (Chronic) BiPAP 18/12 cm of water HTN (hypertension) (Chronic) BPH (benign prostatic hypertrophy) (Chronic) Tinea unguium (Chronic) Diabetes mellitus with neuropathy (Chronic) Lymphedema of leg (Chronic) Multiple excoriations (Chronic) Asthma (Chronic) Arthritis (Chronic) Immobility (Chronic) 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 Patient was educated on the signs and symptoms of bleeding as such as hemoptysis, hematemesis, hematochezia or melena stools. Patient has been advised to watch for these symptoms contact the office if they present. Follow-up with Dr. Clay in approximately 8 weeks as previously scheduled. Adynamic ileus (Chronic) Ventral hernia (Chronic) Hypoglycemia (Chronic) Peripheral neuropathy (Chronic) Chronic anemia (Chronic) Benign prostatic hypertrophy without urinary obstruction (Chronic) CKD (chronic kidney disease), stage II (Chronic) CAD (coronary artery disease) (Chronic) Type II diabetes mellitus (Chronic) GERD (gastroesophageal reflux disease) (Chronic) Hypercholesteremia (Chronic) Morbid obesity (Chronic) Pulmonary hypertension (Chronic) H/O aortic valve replacement (Chronic ~12/11/09) # 29 Freestyle valve Venous insufficiency (Chronic) Hospital Course and Treatment Imaging Results: Diagnostic Data Chest X-Ray 12/11/17 06:58 IMPRESSION: Improved aeration and improved vascular congestion as compared to prior study. Residual changes persist. Electronically Signed: Gab Ruth MD at 11:07 EDT Tel [phone], Service support , Consultations 12/09/17 20:42 Consult: Onc/Wound/wedger and gluer Routine Comment: Reason for Consult:: wound on bilateral lower ext Operations: None Procedures: None Summary of Care Provided: Patient is a 72-year-old male admitted 12/09/2017 due to shortness of breath. He has a past medical history of AOCD, BPH, HTN, Diabetes mellitus type II w/ neuropathy, Tobacco use, CHF, CKD stage II, COPD, History of AVR, History of AAA s/p repair, GERD, Morbid Obesity PVD, Hx Ileus, super obesity. 1. Chronic hypoxic respiratory failure, acute respiratory failure ruled out- secondary to COPD exacerbation and acute on chronic diastolic CHF. Continue supplement oxygen to maintain O2 at or above 90%. Patient chronically wears 3 L nasal cannula at baseline. Patient follows with Dr. Clay. Follow up with Dr. Clay in 1-2 weeks. 2. COPD exacerbation-breathing /wheezing improved. Patient states he chronically has wheezing and shortness of breath at baseline. Albuterol and DuoNeb aerosols. PEP/IS. Completed 3 day course of IV azithromycin. Mucinex 1200 mg p.o. twice daily. Respiratory panel negative. Continue oral prednisone taper at discharge. 3. Acute on chronic diastolic CHF-echocardiogram July 2017 with an EF of 60%. Chest x-ray on admission with mild CHF. BNP 205. Patient's weight is down approximately 25 pounds since admission. IV Lasix discontinued. Repeat chest x -ray demonstrates improved vascular congestion as compared to prior examination. Continue home Lasix regimen. 4. Acute anemia on anemia of chronic disease/iron deficiency anemia-status post 3 unit packed red blood cells transfusion. Continue iron supplementation/ ascorbic acid. Stool negative for occult blood. Patient will follow up with Dr. Garcia as outpatient this week. Continue to hold Eliquis until further evaluated by Dr. Garcia as outpatient. 5. Obstructive sleep apnea-continue CPAP nightly and PRN. 6. Type 2 diabetes mellitus-continue home oral and insulin regimen. 7. Hypertension-stable, continue home regimen. 8. Hyperlipidemia-continue statin. 9. Chronic kidney disease stage II-stable, continue to monitor. 10. BPH-continue home regimen. 11. History of aortic valve replacement 12. History of AAA status post repair/thoracic aortic aneurysm-continue outpatient monitoring. 13. GERD-continue PPI. 14. Super obesity-encourage diet and lifestyle modifications. 15. PVD with chronic lower extremity wounds-Juan wrap bilateral lower extremities. General: Alert, Oriented x3, Cooperative HEENT: Atraumatic, PERRLA, EOMI, Normocephalic Neck: Supple, No JVD, Negative Carotid Bruits Lungs: Diminished, Wheezes Cardiovascular: Regular rate, Regular Rhythm, Normal S1, Normal S2, No murmurs Abdomen: Bowel Sounds Present, Soft, Non Tender, Obese, Hernia Extremities: No clubbing, No cyanosis, Edema - Bilateral lower extremities Skin: No rashes, No breakdown Musculoskeletal: No Tenderness to Palpation of Joints or Extremities Neurological: Cranial nerves II-XII grossly intact, Neuro grossly intact Psych/Mental Status: Normal Affect, Appropriate Patient seen exam prior to discharge. Physical assessment as noted above. Patient stable for discharge to SNF. This patient was seen by YVETTE Chun under the supervision of Dr. Aguilar. Home Medications: Medications to take at Discharge Allopurinol [Zyloprim] 300 mg PO DAILY 03/30/17 Atorvastatin Calcium [Lipitor] 40 mg PO QHS 03/30/17 Clonidine Patch [Catapres-Tts3] 0.3 mg TOPICAL FR 03/30/17 Clopidogrel Bisulfate [Plavix] 75 mg PO DAILY 03/30/17 Finasteride [Proscar] 5 mg PO DAILY 03/30/17 Glimepiride [Amaryl] 8 mg PO BREAKFAST 03/30/17 Hydroxyzine HCl 25 mg PO TID PRN 03/30/17 Insulin Glargine [Lantus SoloStar Pen] 35 units PO BID 03/30/17 Lansoprazole 15 mg PO DAILY 03/30/17 Losartan Potassium 100 mg PO DAILY 03/30/17 Magnesium Oxide [Mag-Ox 400] 800 mg PO BID 03/30/17 Metformin HCl [Glucophage] 500 mg PO TID 03/30/17 Metoprolol Tartrate [Lopressor (beta maryam)] 50 mg PO BID 03/30/17 Multivitamins,Therapeutic [Multivitamin] 1 tab PO DAILY@0800 03/30/17 Sertraline HCl [Zoloft] 50 mg PO QHS 03/30/17 Spironolactone 25 mg PO BID 03/30/17 Terazosin HCl [Hytrin] 10 mg PO QHS 03/30/17 Fluticasone/Salmeterol [Advair 500-50 Diskus] 2 puff INHALATION Q12H 08/20/17 Sertraline HCl [Zoloft] 100 mg PO DAILY 08/20/17 Acetaminophen [Tylenol] 1,000 mg PO Q8H PRN PRN tab 09/08/17 Docusate Sodium [Colace] 100 mg PO DAILY PRN PRN 12/09/17 Furosemide [Lasix] 20 mg PO LUNCH 12/09/17 Furosemide [Lasix] 40 mg PO DAILY 12/09/17 Loratadine 10 mg PO DAILY 12/09/17 Nystatin Powder [Mycostatin Powder] 1 applic TOPICAL BID PRN PRN 12/09/17 Olanzapine [Zyprexa] 2.5 mg PO DAILY 12/09/17 Tiotropium Allen [Spiriva] 18 mcg IH DAILY 12/09/17 Albuterol Aerosols [Ventolin Aerosols] 2.5 mg INHALATION Q2H PRN PRN vial.neb. 12/14/17 Ascorbic Acid [Vitamin C] 500 mg PO BIDCM tablet 12/14/17 Ferrous Sulfate 325 mg PO BIDCM tablet 12/14/17 Guaifenesin [Mucinex] 1,200 mg PO BID tablet 12/14/17 Prednisone See Taper PO DAILY #30 tablet 12/14/17 Following Prescrptions Were Given to Patient: Prednisone See Taper PO DAILY #30 tablet Primary Care Physician: Jack Verdugo MD [Primary Care Provider] - Please follow up with your Primary Care Physician in: 1 Week Please Follow Up With: Brice Garcia MD When: This week, please call for appt. Please Follow Up With: Khari Clay DO - May see INFORMATION SECURITY RISK ANALYST When: 1-2 Weeks Disposition: [facility] facility Minutes spent on discharge:: 35 Patient Condition:: Stable Medical Necessity - Tobacco Use Smoking Status: Former smoker Tobacco Use: Cigarettes Meaningful Use Info Meaningful Use Diagnoses (Choose all that apply): CHF - CHF JUAN/ARB ordered at discharge?: Yes Documented LVEF (%): 60
--- NOTE | 2017-12-14 11:20 | CASEMGMT ---
Per , referral to be faxed to [facility]. Spoke to Savita at [facility], they have bed availability. Referral faxed, confirmation rec'd. Colleen Preston LPN Clinical Support
[2017-12-14 11:45] LABS: Bedside Glucose 158 mg/dL (70-110)
--- NOTE | 2017-12-14 12:23 | CASEMGMT ---
Rec'd call from Savita at [facility], they are able to accept pt. [facility] updated on same. Savita questioning whether pt has used any of his days at another facility - [facility] to ask pt/family. Colleen Preston LPN Clinical Support
--- NOTE | 2017-12-14 12:42 | CPS ---
Pt is on Bipap, PEP not done
[2017-12-14] MEDS: Insulin Lispro 100 UNIT/ML INSULN.PEN SQ (13:01)
--- NOTE | 2017-12-14 13:29 | CASEMGMT ---
Addendum entered by Brooke Ortega 12/14/17 13:39: [facility] called [facility] and let them know patient is going to [facility] at d/c. Plan: d/c to [facility] under skilled level of care. Brooke WILLOUGHBY Original Note: [facility] spoke with Miroslava and let her know patient's admission and d/c date from TCU. [facility] faxed orders to [facility]. Called [facility] and arranged for patient to get picked up at 4p via bariatric cot. [facility] notified RN, medical records secretary, and patient's . [facility] also asked patient's to take patient's cpap machine to [facility]. She thanked for the help. [facility] completed convalescent on H[facility]. [facility] will notify patient as well. Plan: [facility] under skilled level of care on a convalescent stay. Stuart Iverson transported him via bariatric cot. Brooke REYES SENIOR TELECOMMUNICATIONS CONSULTANT
[2017-12-14 14:07] LABS: Pathologist Review Reviewed
--- NOTE | 2017-12-14 15:28 | NURSING ---
CALLED REPORT TO ROSINA NICOLE AT [facility]. NO QUESTIONS.
== END 2017-12-14 16:20 | disposition skilled nursing facility (03) | DRG 291 ==
LOC: ED 18:39 → PCU 20:48
PROVIDERS: Internal Medicine; Nurse Practitioner Family; Student in an Organized Health Care Education/Training Program; Admitting Provider Hospitalist; Emergency Provider Emergency Medicine; Family Provider Internal Medicine; PCP Internal Medicine; Visit Provider Internal Medicine
DX: I13.0 Hypertensive heart and chronic kidney disease with heart failure and stage 1 through stage 4 chronic kidney disease, or unspecified chronic kidney disease (principal); I50.33 Acute on chronic diastolic (congestive) heart failure; J96.11 Chronic respiratory failure with hypoxia; J96.12 Chronic respiratory failure with hypercapnia; Z68.43 Body mass index [BMI] 50.0-59.9, adult; I27.82 Chronic pulmonary embolism; J44.1 Chronic obstructive pulmonary disease with (acute) exacerbation; E11.22 Type 2 diabetes mellitus with diabetic chronic kidney disease; N18.2 Chronic kidney disease, stage 2 (mild); D63.8 Anemia in other chronic diseases classified elsewhere; D50.9 Iron deficiency anemia, unspecified; E11.40 Type 2 diabetes mellitus with diabetic neuropathy, unspecified; E11.51 Type 2 diabetes mellitus with diabetic peripheral angiopathy without gangrene; I27.20 Pulmonary hypertension, unspecified; I25.10 Atherosclerotic heart disease of native coronary artery without angina pectoris; R32 Unspecified urinary incontinence; E78.5 Hyperlipidemia, unspecified; I89.0 Lymphedema, not elsewhere classified; N40.0 Benign prostatic hyperplasia without lower urinary tract symptoms; M19.90 Unspecified osteoarthritis, unspecified site; M10.9 Gout, unspecified; G47.33 Obstructive sleep apnea (adult) (pediatric); F32.9 Major depressive disorder, single episode, unspecified; K21.9 Gastro-esophageal reflux disease without esophagitis; E66.01 Morbid (severe) obesity due to excess calories; Z99.81 Dependence on supplemental oxygen; Z79.01 Long term (current) use of anticoagulants; Z79.02 Long term (current) use of antithrombotics/antiplatelets; Z79.4 Long term (current) use of insulin; Z79.899 Other long term (current) drug therapy; Z86.73 Personal history of transient ischemic attack (TIA), and cerebral infarction without residual deficits; Z87.891 Personal history of nicotine dependence; Z95.3 Presence of xenogenic heart valve
CPT/HCPCS: 36415; 36600; 71045; 71046; 80048; 82274; 82607; 82728; 82746; 82803; 82962; 83036; 83540; 83550; 83605; 83735; 83880; 84484; 85007; 85014; 85018; 85025; 85027; 86850; 86900; 86920; 86922; 87633; 93005; 94002; 94003; 94640; 94667; 94668; 97110; 97162; 97166; 97530; 97535; 97802; 99285; J1756; J7040; P9016; A4216; J1940

== ENCOUNTER 2017-12-19 03:06 | Emergency (ER) | payer MEDICARE, BC, SELFPAY ==
[2017-12-19 03:08] VITALS: BP 140/65; PULSE 67; RESP 19; TEMP 36.8; O2SAT 99; BMI 53.1
[2017-12-19] MEDS: Diphth,Pertuss(Acell),Tet Vac 0.5 ML Vial IM (04:53)
--- NOTE | 2017-12-19 04:59 | ED.DCSUM_ITS ---
- ER Visit Summary Date of Service: 12/19/17 Chief Complaint: Bleeding right leg History of Present Illness: The patient is a 72 M presents from [facility] for evaluation bleeding from the right lower extremity. Patient is on Plavix. States he scratches a lot to his legs, states he removed a scab causing bleeding. Nursing was unable to control therefore sent patient here. Denies lightheaded symptoms. Tetanus more than 10 years ago. Physical Examination: General: Alert and oriented ?3, no acute distress HEENT: Normocephalic, atraumatic. Moist mucosa membranes Neck: supple, nontender. Cardiovascular: Regular rate and rhythm, no murmurs Respiratory: Normal breath sounds, symmetric, no distress Abdomen: Soft, nontender, nondistended Extremities: Nontender, no edema, pulses intact ?4 Neuro: no focal neurological deficits. Skin: Right lower extremity, multiple scabs on lower extremity. Dressing was removed, medial lateral leg, 3 Steri-Strips, minimal bleeding noted. Test Results: [] Emergency Department Course and Treatment: Patient vital signs stable, nontoxic. Patient's tetanus was updated. Patient's wound was pressure dressed by nursing for control. Wound care discussed. Follow-up with his PCP, return if any worsening symptoms. Treatment Plan: [] Disposition: Discharge Impression: 1. Right leg abrasion 2. Tetanus update This note was generated with [employer] dictation software. It may contain incorrect words, spelling, and punctuation that were not noted in review of the chart prior to signing ED Disposition - Plan for ED Patient: Disposition: Home or Assisted Living Chief Complaint: Lower Extremity Injury Diagnosis: Abrasion, right lower leg, initial encounter Instructions: Wound Care Referrals: Jack Verdugo MD [Primary Care Provider] - 3-5 Days
== END 2017-12-19 05:32 | disposition home or self-care (01) ==
PROVIDERS: Emergency Provider Emergency Medicine; Family Provider Internal Medicine; PCP Internal Medicine
DX: S80.811A Abrasion, right lower leg, initial encounter (principal); X58.XXXA Exposure to other specified factors, initial encounter; Y93.9 Activity, unspecified; Y92.129 Unspecified place in nursing home as the place of occurrence of the external cause; Y99.9 Unspecified external cause status; Z23 Encounter for immunization; J44.9 Chronic obstructive pulmonary disease, unspecified; E11.9 Type 2 diabetes mellitus without complications; I10 Essential (primary) hypertension; Z79.84 Long term (current) use of oral hypoglycemic drugs; Z79.02 Long term (current) use of antithrombotics/antiplatelets; Z79.899 Other long term (current) drug therapy
CPT/HCPCS: 90471; 90715; 99284

== ENCOUNTER → 2018-01-29 07:06 | Outpatient (CLI) | payer MEDICARE, BC, SELFPAY | PROVIDERS: Family Provider Internal Medicine; PCP Internal Medicine; Visit Provider Surgery | PROC: 0DJD8ZZ Inspection of Lower Intestinal Tract, Via Natural or Artificial Opening Endoscopic (ICD-10-PCS; CPT 45378; principal; 2018-01-11 09:55) | DX: Z53.9 Procedure and treatment not carried out, unspecified reason (principal) ==

== ENCOUNTER 2018-02-02 15:05 | Emergency (ER) | payer MEDICARE, BC, SELFPAY ==
[2018-02-02 15:08] VITALS: PULSE 87; RESP 21; TEMP 36.6; O2SAT 98; BMI 56.9
[2018-02-02 15:13] VITALS: BP 167/77
[2018-02-02 15:20] LABS: Bedside Glucose 83 mg/dL (70-110)
--- NOTE | 2018-02-02 15:23 | ED.DCSUM_ITS ---
- ER Visit Summary Date of Service: 02/02/18 Chief Complaint: Unresponsive episode, hypoglycemia History of Present Illness: The patient is a 73 M who was with his when he had an unresponsive episode. EMS was called and his blood sugar was 40. He was given D50 and blood sugar returned at 120. His mental status improved although now he is mildly tremulous. He states he takes 35 units of Lantus twice a day. states that he did not eat a lot for breakfast or lunch today. No recent changes in his insulin doses. Physical Examination: Vital signs reviewed. BMI 57. HEENT exam unremarkable. Heart is regular rate and rhythm without murmurs. Lungs are clear to auscultation. Abdomen is soft and nontender. Extremities reveal no edema. Skin exam shows chronic venous stasis in the legs bilaterally. Neurologic exam does show some mild tremulousness but no other acute findings. Test Results: Hemoglobin 8.9 which is baseline. Chemistry is normal. Blood glucose after juice is 105. Repeat is 132 Emergency Department Course and Treatment: Patient feels much better. Likely due to hypoglycemia. He will continue to eat tonight and will need a regular meal. He will follow-up with his PCP Treatment Plan: [] Disposition: Discharge Impression: Hypoglycemia This note was generated with [employer] dictation software. It may contain incorrect words, spelling, and punctuation that were not noted in review of the chart prior to signing ED Disposition - Plan for ED Patient: Chief Complaint: Hypoglycemia Referrals: Jack Verdugo MD [Primary Care Provider] -
[2018-02-02 15:52] LABS: Anion Gap 5 (5-15); BUN 18 mg/dL (7-18); BUN/Creat Ratio 17.6 RATIO (10-20); Calcium,Total 9.2 mg/dL (8.5-10.1); Chloride 102 mmol/L (98-107); Creatinine, Serum 1.02 mg/dL (0.70-1.30); EST Glomerular Filtration Rate 76 mL/min (>60); Est Glom Filt Rate - Afr Amer 92 mL/min (>60); Estimated Creatinine Clearance 60.54 ml/min; Glucose 97 mg/dL (74-106); Potassium 4.4 mmol/L (3.5-5.1); Sodium Level 139 mmol/L (136-145)
[2018-02-02 16:06] LABS: Bedside Glucose 105 mg/dL (70-110)
[2018-02-02 16:14] LABS: Absolute Lymphocyte Count 0.34 X10^3/ul (0.83-4.51); Absolute Neutrophil Count 7.1 X10^3/uL (2.0-7.7); Basophil# 0.01 X10^3/uL; Basophil% 0.1 % (0-1); Eosinophil# 0.06 X10^3/uL; Eosinophils% 0.8 % (0-5); Hemoglobin 8.9 g/dl (13.0-16.5); Lymphocyte # 0.34 X10^3/ul (4.0); Lymphocyte % 4.3 % (19-41); Mean Corp Hgb Conc 29.7 g/gl (32-36); Mean Corpuscular Hgb 25.6 pg (27.0-32.0); Mean Corpuscular Volume 86.5 fL (80-94); Mean Platelet Vol. 8.6 fl (6.2-12.0); Monocyte# 0.39 X10^3/uL; Monocyte% 4.9 % (0-10); Neutrophil # 7.07 X10^3/uL (2.7-7.7); Neutrophil % 89.6 % (47-70); Platelet Count 232 K/mm3 (150-450); RBC Distribution Width CV 17.1 % (11.6-14.6); RBC Distribution Width SD 54.2 fl (35.1-43.9); Red Blood Count 3.47 M/mm3 (4.6-6.2); White Blood Count 7.9 K/mm3 (4.4-11.0)
[2018-02-02 16:15] LABS: Differential Indicated SCAN CRITERIA MET; POSITIVE COUNT NO; POSITIVE DIFFERENTIAL YES; POSITIVE MORPHOLOGY NO
[2018-02-02 16:42] LABS: Platelet Estimate ADEQUATE (ADEQ); Red Cell Morphology NORM C+C NORMAL (NORM C&C)
--- NOTE | 2018-02-02 17:17 | ED.DEP ---
ED Disposition - Plan for ED Patient: Disposition: Home or Assisted Living Chief Complaint: Hypoglycemia Instructions: ED Diabetes Hypoglycemia Insulin React Referrals: Jack Verdugo MD [Primary Care Provider] -
[2018-02-02 17:19] VITALS: BP 164/70; PULSE 84; RESP 22; O2SAT 100
[2018-02-02 17:20] LABS: Bedside Glucose 132 mg/dL (70-110)
== END 2018-02-02 17:36 | disposition home or self-care (01) ==
PROVIDERS: Emergency Provider Emergency Medicine; Family Provider Internal Medicine; PCP Internal Medicine
DX: E11.649 Type 2 diabetes mellitus with hypoglycemia without coma (principal); I87.8 Other specified disorders of veins; Z79.02 Long term (current) use of antithrombotics/antiplatelets; Z79.4 Long term (current) use of insulin; Z79.52 Long term (current) use of systemic steroids; Z79.899 Other long term (current) drug therapy
CPT/HCPCS: 80048; 82962; 85025; 99285; A4216

== ENCOUNTER 2018-05-13 11:21 | Inpatient (IN) | payer MEDICARE, BC, SELFPAY ==
[2018-05-13] VITALS (20 sets, daily range): BP systolic 145–165; BP diastolic 53–99; PULSE 70–90; RESP 12–26; TEMP 36.1–37.2; O2SAT 95–100; BMI 56.3; BMI 55.0
--- NOTE | 2018-05-13 11:31 | EKG12_ITS ---
Test Reason : SOB Blood Pressure : / mmHG Vent. Rate : 076 BPM Atrial Rate : 076 BPM P-R Int : 000 ms QRS Dur : 112 ms QT Int : 446 ms P-R-T Axes : 000 015 041 degrees QTc Int : 501 ms Normal sinus rhythm Prolonged QT Abnormal ECG Confirmed by ALISTAIR GALEANO ([id number]), commercial production editor DANIELA GUTIÉRREZ ([id number]) on 05/19/2018 2:41:27 PM Referred By: ZACHARY Confirmed By:ALISTAIR GALEANO
--- NOTE | 2018-05-13 11:31 | RAD_ITS ---
STUDY: X-RAY CHEST REASON FOR EXAM: Male, 73 years old. Increasing shortness of breath. TECHNIQUE: Single AP portable view of the chest. COMPARISON: Comparison is made with prior study dated December 11, 2017. FINDINGS: EKG electrodes are seen. Surgical clips are once again seen in the right axillary region. There is evidence of CHF with small bilateral effusions right greater than left. Right basilar atelectasis and/or infiltrate. Sternal cerclage wires and vascular clips are present from a prior sternotomy and coronary artery bypass graft procedure (CABG). Moderate cardiomegaly. Normal mediastinum and radha. Normal visualized pulmonary arteries. There is atherosclerotic calcification of the aortic arch with tortuosity. Normal visualized thoracic spine. Normal visualized ribs, clavicles, and shoulders. There is no demonstrated abnormality of the visualized soft tissue structures of the upper abdomen. RAD/Chest 1 View (Portable) IMPRESSION: CHF. Small bilateral pleural effusions right greater than left with bibasilar atelectasis worse on the right side. Cardiomegaly. Electronically Signed: Gab Ruth MD at 13:35 EST Tel [phone], Service support ,
[2018-05-13] MEDS: Ipratropium/Albuterol Sulfate 3 ML AMPUL.NEB INHALATION ×2 (11:42→20:28)
--- NOTE | 2018-05-13 11:52 | ED.DCSUM_ITS ---
- ER Visit Summary Date of Service: 05/13/18 Chief Complaint: [] Respiratory distress coughing low blood sugar leg swelling and infection diabetes History of Present Illness: The patient is a 73 M [] 158/90, afebrile that history above, the patient has a history of all the above, he apparently was seen by paramedics earlier in the day related to low blood sugar in the 50s he was treated he felt better than later they were called because he was in respirator distress coughing low pulse ox, he has a history of COPD with very distress history failure, history of cardiac surgery possible valve and aortic replacement, diabetes, lower extremity infections, noncompliance, Basically states he struggles to be at home he had exacerbation of all the above called the paramedics and was brought in we were immediately placed him on CPAP as he was struggling to breathe he is feeling better now he has chronic cough chronic shortness of breath chronic lower extremity edema he stopped going to the wound care center for care of the lower extremity edema and ulcers related to noncompliance and conflict that he had with care providers Physical Examination: [] No signs are as above after CPAP he speaking in full sentences he is coughing up thick mucus he is a very large gentleman he has distant heart tones, he has distant lung tones with scattered wheezing, he has a midline midline sternotomy type incision with a hernia at the base that that is unchanged his abdomen is quite obese but nontender he has drainage from the right lower extremity ulcerations, he has decreased sensation to all toes bilaterally and poor cap refill he states is not unusual and baseline for him neurologically he is awake moving all 4 questions appropriately Test Results: [] Emergency Department Course and Treatment: [] The above he will go undergo aggressive management IV fluids CPAP blood gas antibiotics Main hemodynamically stable he is resting comfortably on the BiPAP set up Gas 7.3 PCO2 63 General screening labs are unremarkable see those reports he is anemic to 7.7, his chest x-ray shows right pleural effusion infiltrate cardiomegaly Has been started on IV antibiotics IV fluids given all the above we have asked the hospitalist team for further management and admission Treatment Plan: [] Disposition: [] Admit stable Impression: [] Respiratory failure, pneumonia, exacerbation of COPD, diabetes, right lower extremity infection, This note was generated with [employer] dictation software. It may contain incorrect words, spelling, and punctuation that were not noted in review of the chart prior to signing ED Disposition - Plan for ED Patient: Chief Complaint: Shortness of Breath Referrals: Jack Verdugo MD [Primary Care Provider] -
[2018-05-13 12:03] LABS: Absolute Lymphocyte Count 0.41 X10^3/ul (0.83-4.51); Absolute Neutrophil Count 6.1 X10^3/uL (2.0-7.7); Differential Indicated SCAN CRITERIA MET; Eosinophil# 0.02 X10^3/uL; Eosinophils% 0.3 % (0-5); Hematocrit 27.1 % (40-54); Hemoglobin 7.7 g/dl (13.0-16.5); Lymphocyte # 0.41 X10^3/ul (4.0); Lymphocyte % 5.8 % (19-41); Mean Corp Hgb Conc 28.4 g/gl (32-36); Mean Corpuscular Hgb 23.5 pg (27.0-32.0); Mean Corpuscular Volume 82.9 fL (80-94); Mean Platelet Vol. 8.8 fl (6.2-12.0); Monocyte# 0.44 X10^3/uL; Monocyte% 6.3 % (0-10); Neutrophil # 6.13 X10^3/uL (2.7-7.7); Neutrophil % 87.3 % (47-70); POSITIVE COUNT NO; POSITIVE DIFFERENTIAL YES; POSITIVE MORPHOLOGY NO; Platelet Count 265 K/mm3 (150-450); RBC Distribution Width CV 15.2 % (11.6-14.6); Red Blood Count 3.27 M/mm3 (4.6-6.2)
[2018-05-13 12:06] LABS: Anion Gap 5 (5-15); BUN 19 mg/dL (7-18); BUN/Creat Ratio 21.3 RATIO (10-20); Calcium,Total 8.8 mg/dL (8.5-10.1); Chloride 98 mmol/L (98-107); Creatinine, Serum 0.89 mg/dL (0.70-1.30); EST Glomerular Filtration Rate 89 mL/min (>60); Est Glom Filt Rate - Afr Amer 107 mL/min (>60); Estimated Creatinine Clearance 69.38 ml/min; Glucose 61 mg/dL (74-106); Potassium 4.1 mmol/L (3.5-5.1); Sodium Level 138 mmol/L (136-145)
[2018-05-13 12:14] LABS: Lactic Acid 1.1 mmol/L (0.4-2.0)
[2018-05-13 12:20] LABS: Base Excess 12 mmol/L (-2 to +2); Bicarbonate 37.1 mmol/L (22-26); Blood Gas Specimen Type ART; EPAP 6; FI02 50; IPAP 14; PO2 139 mmHG (75-100); SITE R Radial; SO2 99 % (95-99); Time Given 1217; Total Carbon Dioxide 39 mmol/L; pCO2 63.3 mmHg (35-45); pH 7.38 (7.35-7.45)
[2018-05-13 12:23] LABS: Differential Comment SCANNED
[2018-05-13 12:33] LABS: BNP,B-Type NATRIURETIC PEPTIDE 306.9 pg/mL (0-100)
[2018-05-13 13:04] LABS: Bacteria 0 SEEN /hpf (None Seen); Mucous, Urine 0 SEEN /hpf (<or=2+); Squamous Epithelial Cells - UA 0 SEEN /hpf (0-5); White Blood Cells 0 SEEN /hpf (0-5)
[2018-05-13 13:06] LABS: Color, Urine Yellow (Yellow); Glucose, Dipstick Normal (Normal); Ketone-Dipstick Negative (Negative); Leukocyte Esterase-Dipstick Negative /ul (Negative); Nitrite-Dipstick Negative (Negative); Occult Blood-Urine 250 /ul (Negative); Protein-Dipstick 30 mg/dl (Negative); Specific Gravity, Urine 1.015 (1.002-1.030); Urine Bilirubin Dipstick Negative (Negative); Urine Clarity Clear (Clear); Urine Urobilinogen Normal (Normal)
--- NOTE | 2018-05-13 13:17 | NURSING ---
DR HAWTHORNE IN ER
--- NOTE | 2018-05-13 13:18 | ED.RN ---
URINE COLLECTED BY CLEAN CATCH METHOD PER DR SHARMA.
--- NOTE | 2018-05-13 13:19 | ED.RN ---
BILATERAL LOWER LEGS AND FEET CLEANED, PROTECTIVE BARRIER AND BACITRACIN APPLIED. VERY POOR HYGIENE NOTED, EM WRAPS ADHERED TO SKIN ON BOTH LEGS, SOAKED WITH URINE. PT STATES HE CANNOT SEE LEGS.
[2018-05-13 13:22] LABS: Red Blood Cells-Urine 0-5 SEEN /hpf (0-5)
--- NOTE | 2018-05-13 13:53 | NURSING ---
PCU STEPDOWN RESP DISTRESS TERELETSKY
--- NOTE | 2018-05-13 14:23 | PCM.HP.STD ---
Problem List (1) Shortness of breath Status: Acute History of Present Illness Date of Admission: 05/13/18 Chief Complaint: Shortness of breath The patient is a 73 year old M who was seen in the emergency room at [facility] with a chief complaint of increasing shortness of breath over the last 24 hours. Patient has been in the hospital multiple times for diastolic congestive heart failure, he is noncompliant with using BiPAP at home, he is also chronically being seen by cardiology and the pulmonary service. Patient states that he has had some chills over the last 24 hours he is been coughing up some yellow sputum occasionally but he denies any fever. Patient denies any chest pain this time to this examiner. Evaluation in the ER included labs which revealed a normal white blood cell count 7, hemoglobin was 7.7, BUN was 19, beta natruretic peptide was 306, glucose was 61. Patient was placed on BiPAP by the emergency room physician, ABGs were obtained on 4 L with BiPAP, results were as follows: PH 7.38, PCO2 63, PO2 139. Patient had a chest x-ray performed which showed a right pleural effusion and evidence to this examiner of congestive heart failure. Patient will be admitted to PCU for acute on chronic diastolic congestive heart failure, he will be placed on IV Lasix, he will need to be seen by wound care due to chronic wounds on his legs-he was given IV antibiotics by the emergency room physician but on examination of the patient, I do not believe the patient has an active cellulitis on his legs, I think rather that he has severe stasis dermatitis and chronic skin wounds on his lower legs from stasis dermatitis. I will not continue the patient on IV antibiotics when he is admitted. Past Medical History Past Medical History (Chronic Problems): Chronic Problems (Last Reviewed 12/29/17 @ 13:57 by Mackenzie Wallace NP-C) Chronic diastolic heart failure (Chronic) History of repair of thoracic aortic aneurysm (Chronic ~12/11/09) Thoracic aortic aneurysm without rupture (Chronic) Status post ascending and proximal arch aneurysm replaced with a Hemashield graft and shayan-arch repair; Venous stasis dermatitis (Chronic) Anemia (Chronic) Osteoarthritis (Chronic) Coronary artery disease (Chronic) Lymphedema (Chronic) Hyperlipidemia (Chronic) Super obesity (Chronic) Gout (Chronic) Depression (Chronic) Ulcer of right lower extremity with fat layer exposed (Chronic) Ulcer of left lower extremity with fat layer exposed (Chronic) Bilateral leg edema (Chronic) Tinea unguium (Chronic) Diabetes mellitus with neuropathy (Chronic) Delayed wound healing (Chronic) Open wound, lower leg (Chronic) CKD (chronic kidney disease), stage II (Chronic) Wheezing (Chronic) MIKO (obstructive sleep apnea) (Chronic) BiPAP 18/12 cm of water HTN (hypertension) (Chronic) BPH (benign prostatic hypertrophy) (Chronic) Tinea unguium (Chronic) Diabetes mellitus with neuropathy (Chronic) Edema of both legs (Chronic) Lymphedema of leg (Chronic) Multiple excoriations (Chronic) Asthma (Chronic) COPD (chronic obstructive pulmonary disease) (Chronic) FEV1 58% Arthritis (Chronic) Immobility (Chronic) Pulmonary embolism on right (Chronic) Adynamic ileus (Chronic) Ventral hernia (Chronic) Hypoglycemia (Chronic) Peripheral neuropathy (Chronic) Chronic anemia (Chronic) Benign prostatic hypertrophy without urinary obstruction (Chronic) CKD (chronic kidney disease), stage II (Chronic) CAD (coronary artery disease) (Chronic) Type II diabetes mellitus (Chronic) GERD (gastroesophageal reflux disease) (Chronic) Hypercholesteremia (Chronic) Morbid obesity (Chronic) Pulmonary hypertension (Chronic) H/O aortic valve replacement (Chronic ~12/11/09) # 29 Freestyle valve Venous insufficiency (Chronic) Medical History: Medical History (Last Reviewed 12/29/17 @ 13:57 by Mackenzie Wallace TECHNICAL PROPOSAL WRITER-C) Thoracic aortic aneurysm without rupture (Chronic) I71.2 Status post ascending and proximal arch aneurysm replaced with a Hemashield graft and shayan-arch repair; Acute on chronic diastolic heart failure (Acute) I50.33 Anemia (Chronic) D64.9 Coronary artery disease (Chronic) I25.10 Hyperlipidemia (Chronic) E78.5 Super obesity (Chronic) E66.9 Bilateral leg edema (Chronic) R60.0 Diabetes mellitus with neuropathy (Chronic) E11.40 Acute on chronic respiratory failure with hypoxia and hypercapnia (Acute) J96.21, J96.22 CKD (chronic kidney disease), stage II (Chronic) N18.2 Wheezing (Chronic) R06.2 Dyspnea (Acute) R06.00 MIKO (obstructive sleep apnea) (Chronic) G47.33 BiPAP 18/12 cm of water HTN (hypertension) (Chronic) I10 Tobacco abuse (Resolved) Z72.0 BPH (benign prostatic hypertrophy) (Chronic) N40.0 Tinea unguium (Chronic) B35.1 Diabetes mellitus with neuropathy (Chronic) E11.40 Edema of both legs (Chronic) R60.0 Lymphedema of leg (Chronic) I89.0 Multiple excoriations (Chronic) T14.8 Asthma (Chronic) J45.909 COPD (chronic obstructive pulmonary disease) (Chronic) J44.9 FEV1 58% Arthritis (Chronic) M19.90 Immobility (Chronic) Z74.09 Pulmonary embolism on right (Chronic) I26.99 CAP (community acquired pneumonia) (Resolved) J18.9 The patient appropriately completed antibiotics and prednisone as prescribed. He has no further signs and symptoms of persistent pneumonia. No indication for any further testing at this time. Patient will be eligible for Pneumovax 23 in approximately 6 months. He states that his PCP is very good at keeping track of his immunizations and when they are due. Adynamic ileus (Chronic) K56.0 Ventral hernia (Chronic) K43.9 Hypoglycemia (Chronic) E16.2 Peripheral neuropathy (Chronic) G62.9 Chronic anemia (Chronic) D64.9 Benign prostatic hypertrophy without urinary obstruction (Chronic) N40.0 CKD (chronic kidney disease), stage II (Chronic) N18.2 CAD (coronary artery disease) (Chronic) I25.10 Type II diabetes mellitus (Chronic) E11.9 GERD (gastroesophageal reflux disease) (Chronic) K21.9 Hypercholesteremia (Chronic) E78.00 Morbid obesity (Chronic) E66.01 Pulmonary hypertension (Chronic) I27.2 Venous insufficiency (Chronic) CHF exacerbation (Resolved) I50.9 Leg swelling (Inactive) M79.89 Nausea and vomiting (Inactive) R11.2 Tinea unguium (Inactive) B35.1 Allergies naphazoline HCl [From Naphcon] Allergy (Severe, Verified 04/06/18 15:53) affected his breathing AFFECTED HIS BREATHING amlodipine besylate [From Norvasc] Allergy (Verified 04/06/18 15:53) Other dextromethorphan Allergy (Verified 04/06/18 15:53) Other levofloxacin [From Levaquin] Adverse Reaction (Mild, Verified 04/06/18 15:53) made me hyperactive made me hyperactive Home Medications: Ambulatory Orders Medication Instructions Recorded Allopurinol [Zyloprim] 300 mg PO DAILY 03/30/17 Clonidine Patch [Catapres-Tts3] 0.3 mg TOPICAL FR 03/30/17 Clopidogrel Bisulfate [Plavix] 75 mg PO DAILY 03/30/17 Finasteride [Proscar] 5 mg PO DAILY 03/30/17 Glimepiride [Amaryl] 8 mg PO BREAKFAST 03/30/17 Magnesium Oxide [Mag-Ox 400] 400 mg PO BID 03/30/17 Metoprolol Tartrate [Lopressor 50 mg PO BID 03/30/17 (beta maryam)] Multivitamins,Therapeutic 1 tab PO DAILY@0800 03/30/17 [Multivitamin] Sertraline HCl [Zoloft] 50 mg PO QHS 03/30/17 Docusate Sodium [Colace] 100 mg PO DAILY PRN PRN 12/09/17 Nystatin Powder [Mycostatin Powder] 1 applic TOPICAL BID PRN PRN 12/09/17 Olanzapine [Zyprexa] 2.5 mg PO DAILY 12/09/17 Ferrous Sulfate 325 mg PO BIDCM tab 12/14/17 acetaminophen 500 mg tablet 1,000 mg PO Q8H PRN PRN tab 12/29/17 tiotropium bromide 2.5 2 puff INHALATION QDAY 12/29/17 mcg/actuation mist for inhalation budesonide-formoterol HFA 160 2 puff INHALATION BID 04/06/18 mcg-4.5 mcg/actuation aerosol inhaler buspirone 10 mg tablet 10 mg PO BID 04/06/18 guaifenesin ER 1,200 mg tablet, 1,200 mg PO BID tab 04/06/18 extended release 12 hr insulin glargine (U-100) 100 30 unit PO BID ml 04/06/18 unit/mL (3 mL) subcutaneous pen metformin 500 mg tablet 500 mg PO BID tab 04/06/18 metolazone 2.5 mg tablet 2.5 mg PO DAILY tab 04/06/18 fluticasone 500 mcg-salmeterol 50 1 inh INHALATION BID #60 ea 04/23/18 mcg/dose blistr powdr for inhalation montelukast 10 mg tablet 10 mg PO QPM #30 tab 04/23/18 Atorvastatin Calcium [Lipitor] 40 mg PO QHS 05/13/18 Lansoprazole 15 mg PO DAILY 05/13/18 Loratadine 10 mg PO DAILY 05/13/18 Spironolactone 25 mg PO BID 05/13/18 Terazosin HCl 10 mg PO QHS 05/13/18 Surgical History: Surgical History (Last Reviewed 04/06/18 @ 15:54 by Brynn Avila) History of repair of thoracic aortic aneurysm (Chronic) Onset Date: ~12/11/09 Z98.890, Z86.79 H/O aortic valve replacement (Chronic) Onset Date: ~12/11/09 Z95.2 # 29 Freestyle valve H/O hernia repair Z98.890, Z87.19 Surgical History: - - He has a bioprosthetic aortic valve replacement, abdominal aortic aneurysm repair '05, recent surgery to repair a large ventral hernia. Psychiatric History: Anxiety, Depression Lives: Spouse/ Significant Other Smoking Status: Former smoker Tobacco Use: Cigarettes Alcohol: None Drugs: None - *Family History Maternal Family History: Family History (Last Reviewed 04/06/18 @ 15:54 by Brynn Avila) Brother TBI (traumatic brain injury) Sister Ulcerative colitis History Items: Hypertension, - - Patient's father at the age of 94 from old age. Patient's mother at age of 87 with a history of hyperlipidemia and hypertension. Paternal Family History: Family History (Last Reviewed 04/06/18 @ 15:54 by Brynn Avila) Brother TBI (traumatic brain injury) Sister Ulcerative colitis History Items: Hypertension Review of Systems Constitutional: Reports: Chills, Fatigue. Denies: Anorexia, Fever, Night Sweats, Malaise, Weakness, Weight Change Eyes: Denies: Cataracts, Conjunctivae Inflammation, Double vision, Drainage HEENT: Denies: Difficulty Swallowing, Dysphasia, Ear Pain, Hearing Changes, Nasal bleeding, Nasal Congestion, Post Nasal Drip Cardiovascular: Reports: Edema. Denies: Chest Pain, Claudication, Chest Pressure, Chest Tightness, Heaviness, Orthopnea, Palpitations, Paroxysmal Noc. Dyspnea Respiratory: Reports: Cough, Shortness of Breath, Shortness of breath at rest, Shortness of breath upon exertion, Sputum production. Denies: Hemoptysis Gastrointestinal: Denies: Abdominal Pain, Constipation, Diarrhea, Hematemesis, Hematochezia, Nausea, Melena, Vomiting Genitourinary: Denies: Dysuria, Frequency, Hematuria, Hesitancy, Incontinence, Nocturia, Urgency Musculoskeletal: Denies: Back Pain, Foot Pain, Hand Pain, Joint Pain, Joint stiffness, Joint swelling, Joint Tenderness, Leg Pain Skin: Denies: Dryness, Jaundice, Pruritis, Rash Neurological: Denies: Blurred vision, Double vision, Change in Speech, Slurred speech, Difficulty swallowing, Focal weakness, Headaches, Incoordination, Numbness, Tingling Psychiatric: Denies: Anxiety, Depression, Homicidal Ideations, Suicidal Ideations Endocrine: Denies: Change in Body Habitus, Heat/ Cold Intolerance, Polydipsia, Polyuria Hematologic/ Lymphatic: Denies: Adenopathy, Anemia, Easy Bruising, Easy Bleeding, Petechiae, Purpura VTE Information - Inpt Only VTE Present on Admission: No VTE Mechan Device Prophylaxis: None VTE Pharm Prophylaxis ordered?: Yes Patient Problems: Active and Suspected Problems (Last Updated 05/13/18 @ 14:31 by Varun Aguilar DO) Shortness of breath (Acute) - Physical Exam General: Alert, Oriented x3, Cooperative, No apparent distress, Well developed, Well nourished HEENT: Atraumatic, PERRLA, EOMI, Normocephalic Oral: Moist Mucosa Neck: Supple, No JVD, Negative Carotid Bruits, No Nuchal Rigidity, Trachea Midline, Thyroid Normal Size and Texture Lungs: Clear to auscultation, No rhonchi, No wheeze, No rales, Diminished Cardiovascular: Regular rate, Regular Rhythm, Normal S1, Normal S2, No murmurs, No Ectopic Activity, PMI Normal, No rub noted, No Gallop Abdomen: Bowel Sounds Present, Soft, Non Tender, Non-Distended, Obese, Hernia - Ventral hernia is present Extremities: No clubbing, No cyanosis, Capillary Refill Less than 3 Seconds, Edema - Severe nonpitting edema is noted over both lower legs, there is also noted to be stasis dermatitis changes which are chronic over both lower legs, there are superficial wounds over both lower legs Skin: Ulcer/ Wound - There are superficial wounds noted over the patient's lower legs , no purulent drainage was noted, Rash Present - Chronic stasis dermatitis changes are noted over both lower legs Neurological: Cranial nerves II-XII grossly intact, Neuro grossly intact, Sensory exam intact to light touch and pain, Coordination normal Psych/Mental Status: Normal Affect, Appropriate, Alert and oriented to time, place, person, mood and affect Vital Signs Temp Pulse Resp BP Pulse Ox 98 F 79 20 H 154/99 H 98 05/13/18 14:00 05/13/18 14:00 05/13/18 14:00 05/13/18 14:00 05/13/18 14:00 Oxygen Flow Rate (L/min) 4 Oxygen Delivery Method Nasal Cannula Weight: 168.1 kg Body Mass Index (BMI) 56.3 Finger Stick Blood Glucose 132 Laboratory Tests Past 24 Hrs 05/13/18 05/13/18 05/13/18 11:35 11:35 11:35 WBC 7.0 RBC 3.27 L Hgb 7.7 L Hct 27.1 L MCV 82.9 MCH 23.5 L MCHC 28.4 L RDW 15.2 H RDW Differential 46.0 H Plt Count 265 MPV 8.8 Immature Gran % (Auto) 0.300 Neut % (Auto) 87.3 H Lymph % (Auto) 5.8 L Sharp % (Auto) 6.3 Eos % (Auto) 0.3 Baso % (Auto) 0.0 Absolute Neuts (auto) 6.1 Absolute Lymphs (auto) 0.41 L Total Counted Not Reportable Differential Comment SCANNED Specimen Type Sample Site pH Bicarbonate Actual POC Total CO2 Base Excess O2 Saturation O2 % ABG pCO2 ABG pO2 O2 Delivery Device EPAP IPAP Blood Gas Notified Whom Blood Gas Notified Time Sodium 138 Potassium 4.1 Chloride 98 Carbon Dioxide 35.0 H Anion Gap 5 BUN 19 H Creatinine 0.89 Estim Creat Clear Calc 69.38 Est GFR (MDRD) Af Amer 107 Est GFR (MDRD) Non-Af 89 BUN/Creatinine Ratio 21.3 H Glucose 61 L Lactic Acid 1.1 Calcium 8.8 Troponin I 0.026 B-Natriuretic Peptide Urine Color Urine Clarity Urine pH Ur Specific [place] Urine Protein Urine Glucose (UA) Urine Ketones Urine Occult Blood Urine Nitrite Urine Bilirubin Urine Urobilinogen Ur Leukocyte Esterase Urine RBC Urine WBC Ur Squamous Epith Cells Urine Bacteria Urine Mucus 05/13/18 05/13/18 05/13/18 11:35 12:17 12:45 WBC RBC Hgb Hct MCV MCH MCHC RDW RDW Differential Plt Count MPV Immature Gran % (Auto) Neut % (Auto) Lymph % (Auto) Sharp % (Auto) Eos % (Auto) Baso % (Auto) Absolute Neuts (auto) Absolute Lymphs (auto) Total Counted Differential Comment Specimen Type ART Sample Site R Radial pH 7.38 Bicarbonate Actual 37.1 H POC Total CO2 39 Base Excess 12 H O2 Saturation 99 O2 % 50 ABG pCO2 63.3 H ABG pO2 139 H O2 Delivery Device Bi / C PAP EPAP 6 IPAP 14 Blood Gas Notified Whom ED Blood Gas Notified Time 1217 Sodium Potassium Chloride Carbon Dioxide Anion Gap BUN Creatinine Estim Creat Clear Calc Est GFR (MDRD) Af Amer Est GFR (MDRD) Non-Af BUN/Creatinine Ratio Glucose Lactic Acid Calcium Troponin I B-Natriuretic Peptide 306.9 H Urine Color Yellow Urine Clarity Clear Urine pH 5.0 Ur Specific [place] 1.015 Urine Protein 30 H Urine Glucose (UA) Normal Urine Ketones Negative Urine Occult Blood 250 H Urine Nitrite Negative Urine Bilirubin Negative Urine Urobilinogen Normal Ur Leukocyte Esterase Negative Urine RBC 0-5 SEEN Urine WBC 0 SEEN Ur Squamous Epith Cells 0 SEEN Urine Bacteria 0 SEEN Urine Mucus 0 SEEN Assessment/Plan All Active Problems (Last Updated 05/13/18 @ 14:31 by Varun Aguilar DO) Shortness of breath (Acute) Acute on chronic diastolic heart failure (Acute) Acute on chronic respiratory failure with hypoxia and hypercapnia (Acute) Dyspnea (Acute) Tobacco abuse (Resolved) CAP (community acquired pneumonia) (Resolved) Bilateral lower leg cellulitis (Resolved) CHF exacerbation (Resolved) Hyperkalemia (Resolved) Hypomagnesemia (Resolved) Hyponatremia (Resolved) #1 acute on chronic diastolic congestive heart failure-patient will be admitted to PCU, he will be placed on Lasix 60 mg IV every 8 hours, repeat chest x-ray will be performed tomorrow, O2 sat will be monitored #2 severe stasis dermatitis of the lower legs with anasarca-patient's legs will be wrapped, he will be seen by wound care for his superficial leg wounds, again I do not think the patient needs IV antibiotics at this time #3 chronic obstructive pulmonary disease I do not believe the patient needs to be placed on IV antibiotics for his complaints of yellow sputum production, and the patient's medical record in the past, he has complained of similar symptoms and I believe he does have chronic sputum production as an outpatient. I will place the patient on Zithromax p.o. 500 mg x 3 days #4 chronic mixed respiratory failure-I took the patient off of BiPAP in the emergency room and placed him back on nasal cannula O2, he is saturating at 96% on 6 L. #5 obstructive sleep apnea-noncompliant with BiPAP #6 noncompliance-patient should have followed up with his PCP regarding his lower extremity edema in his leg wounds, these leg wounds are probably not acute and may have been present over the last few weeks. #7 chronic anemia probably iron deficiency anemia, I will order a serum iron and TIBC on the patient, I do not believe the patient needs a blood transfusion at this time, it appears the patient has been worked up before for his chronic anemia. #8 super morbid obesity Code Visit Inpatient E&M: 41997 Init Hosp L3
[2018-05-13] MEDS: Furosemide 100 MG/10 ML Vial 60 MG IV ×3 (14:40→22:33)
--- NOTE | 2018-05-13 15:03 | ED.RN ---
Pt has significant infiltrate to RAC while vancomycin infusing. Cassandra procedures refers RN to inject Hyaluronidase around site and apply dry heat. I called rx to inquire about med and was informed to follow procedure without med. The hospital does not have access to the med.
[2018-05-13] MEDS: Heparin Injection (Vial) 5,000 UNIT/ML VIAL 5000 UNIT SC ×2 (16:39→22:33)
[2018-05-13] MEDS: Dextrose 50%-Water 25 GM/50 ML DISP.SYRIN IV ×2 (16:45→22:31)
[2018-05-13 16:47] LABS: Iron 20 ug/dL (65-175); Iron Binding Capacity,Total 212 ug/dL (250-450); PERCENT IRON SATURATION 9.4 % (15.0-55.0)
[2018-05-13 16:56] LABS: Bedside Glucose 24 mg/dL (70-110)
[2018-05-13 17:00] LABS: Bedside Glucose 96 mg/dL (70-110)
[2018-05-13 17:19] LABS: Glucose 88 mg/dL (74-106)
[2018-05-13] MEDS: Azithromycin 250 MG Tablet 500 MG PO (17:22)
[2018-05-13] MEDS: Ferrous Sulfate 325 MG Tablet PO (17:27)
[2018-05-13] MEDS: Montelukast 10 MG Tablet PO (20:14)
[2018-05-13 22:26] LABS: Bedside Glucose 37 mg/dL (70-110)
[2018-05-13] MEDS: Magnesium Oxide 400 MG Tablet PO (22:32)
[2018-05-13] MEDS: Atorvastatin Calcium 40 MG Tablet PO (22:32)
[2018-05-13] MEDS: guaiFENesin 1,200 MG Tablet 1200 MG PO (22:32)
[2018-05-13] MEDS: Sertraline 50 MG Tablet PO (22:32)
[2018-05-13] MEDS: Spironolactone 25 MG Tablet PO (22:32)
[2018-05-13] MEDS: 0.9% NaCl Peripheral Flush Adult/Peds IV (22:32)
[2018-05-13] MEDS: Doxazosin 4 MG Tablet 8 MG PO (22:33)
[2018-05-13] MEDS: busPIRone 5 MG Tablet 10 MG PO (22:33)
[2018-05-13] MEDS: Metoprolol Tartrate 50 MG Tablet PO (22:41)
[2018-05-13 22:57] LABS: Glucose 101 mg/dL (74-106)
[2018-05-13 23:15] LABS: Bedside Glucose 87 mg/dL (70-110)
[2018-05-13 23:15] LABS: Bedside Glucose 97 mg/dL (70-110)
[2018-05-13 23:40] LABS: Bedside Glucose 87 mg/dL (70-110)
[2018-05-14] VITALS (24 sets, daily range): BP systolic 95–152; BP diastolic 49–101; PULSE 55–78; RESP 12–24; TEMP 36.5–37.6; O2SAT 95–99
[2018-05-14 01:06] LABS: Bedside Glucose 80 mg/dL (70-110)
--- NOTE | 2018-05-14 03:48 | NURSING ---
anabel 70. oj given
[2018-05-14 03:51] LABS: Bedside Glucose 72 mg/dL (70-110)
[2018-05-14] MEDS: Furosemide 100 MG/10 ML Vial 60 MG IV ×3 (05:11→22:25)
[2018-05-14] MEDS: Heparin Injection (Vial) 5,000 UNIT/ML VIAL 5000 UNIT SC ×3 (05:12→22:25)
[2018-05-14] MEDS: 0.9% NaCl Peripheral Flush Adult/Peds IV ×3 (05:12→22:25)
[2018-05-14 06:26] LABS: Anion Gap 7 (5-15); BUN 21 mg/dL (7-18); BUN/Creat Ratio 17.8 RATIO (10-20); Calcium,Total 8.4 mg/dL (8.5-10.1); Chloride 96 mmol/L (98-107); Creatinine, Serum 1.18 mg/dL (0.70-1.30); EST Glomerular Filtration Rate 64 mL/min (>60); Est Glom Filt Rate - Afr Amer 77 mL/min (>60); Estimated Creatinine Clearance 52.33 ml/min; Glucose 91 mg/dL (74-106); Potassium 3.5 mmol/L (3.5-5.1); Sodium Level 141 mmol/L (136-145)
[2018-05-14 06:39] LABS: Absolute Lymphocyte Count 0.41 X10^3/ul (0.83-4.51); Absolute Neutrophil Count 4.9 X10^3/uL (2.0-7.7); Basophil# 0.02 X10^3/uL; Basophil% 0.3 % (0-1); Eosinophil# 0.16 X10^3/uL; Eosinophils% 2.6 % (0-5); Hematocrit 22.9 % (40-54); Hemoglobin 6.6 g/dl (13.0-16.5); Lymphocyte # 0.41 X10^3/ul (4.0); Lymphocyte % 6.7 % (19-41); Mean Corp Hgb Conc 28.8 g/gl (32-36); Mean Corpuscular Hgb 23.4 pg (27.0-32.0); Mean Corpuscular Volume 81.2 fL (80-94); Mean Platelet Vol. 8.5 fl (6.2-12.0); Monocyte# 0.66 X10^3/uL; Monocyte% 10.8 % (0-10); Neutrophil # 4.86 X10^3/uL (2.7-7.7); Neutrophil % 79.4 % (47-70); Platelet Count 243 K/mm3 (150-450); RBC Distribution Width CV 15.1 % (11.6-14.6); RBC Distribution Width SD 45.2 fl (35.1-43.9); Red Blood Count 2.82 M/mm3 (4.6-6.2); White Blood Count 6.1 K/mm3 (4.4-11.0)
[2018-05-14 06:41] LABS: Differential Indicated SCAN CRITERIA MET; POSITIVE COUNT NO; POSITIVE DIFFERENTIAL YES; POSITIVE MORPHOLOGY YES
[2018-05-14 06:46] LABS: Bedside Glucose 99 mg/dL (70-110)
[2018-05-14 07:04] LABS: Differential Comment SCAN; Platelet Estimate ADEQUATE (ADEQ); Platelet Morphology LARGE
[2018-05-14] MEDS: Ipratropium/Albuterol Sulfate 3 ML AMPUL.NEB INHALATION ×3 (07:06→19:47)
[2018-05-14] MEDS: Allopurinol 300 MG Tablet PO (08:57)
[2018-05-14] MEDS: Glimepiride 4 MG Tablet 8 MG PO (08:57)
[2018-05-14] MEDS: busPIRone 5 MG Tablet 10 MG PO ×2 (08:58→22:28)
[2018-05-14] MEDS: Spironolactone 25 MG Tablet PO ×2 (08:58→22:26)
[2018-05-14] MEDS: Metoprolol Tartrate 50 MG Tablet PO ×2 (08:58→22:26)
[2018-05-14] MEDS: guaiFENesin 1,200 MG Tablet 1200 MG PO ×2 (08:59→22:27)
[2018-05-14] MEDS: Magnesium Oxide 400 MG Tablet PO ×2 (08:59→22:27)
[2018-05-14] MEDS: Clopidogrel Bisulfate 75 MG Tablet PO (09:00)
[2018-05-14] MEDS: Pantoprazole Sodium 20 MG Tablet PO (09:00)
[2018-05-14] MEDS: OLANZapine 2.5 MG Tablet PO (09:00)
[2018-05-14] MEDS: Azithromycin 250 MG Tablet 500 MG PO (09:00)
[2018-05-14] MEDS: Metolazone 2.5 MG Tablet PO (09:00)
[2018-05-14] MEDS: Finasteride 5 MG Tablet PO (09:00)
--- NOTE | 2018-05-14 10:33 | CASEMGMT ---
Patient had advance directives in e-chart. These were printed and placed in patient's e-chart. Brooke WILLOUGHBY
--- NOTE | 2018-05-14 11:14 | PN_ITS ---
Patient Problems: Active and Suspected Problems (Last Updated 05/13/18 @ 14:31 by Varun Aguilar DO) Shortness of breath (Acute) Subjective: Patient seen and examined. Notes breathing is about the same since admission. Denies fever, chills. Intermittent productive cough with clear to mildly yellow sputum which he states is chronic for him. Patient's breathing more comfortable sitting upright in chair. Patient complains of constipation. Denies other complaints. - Physical Exam General: Alert, Oriented x3, Cooperative, No apparent distress HEENT: Atraumatic, PERRLA, EOMI, Normocephalic Neck: Supple, No JVD, Negative Carotid Bruits Lungs: Diminished, Rales, Wheezes Cardiovascular: Regular rate, Regular Rhythm, Normal S1, Normal S2, No murmurs Abdomen: Bowel Sounds Present, Soft, Non Tender, Non-Distended, Obese Extremities: No clubbing, No cyanosis, Edema - Chronic lymphedema bilateral lower extremities Skin: - - Chronic stasis dermatitis bilateral lower extremities Musculoskeletal: No Tenderness to Palpation of Joints or Extremities Neurological: Cranial nerves II-XII grossly intact, Neuro grossly intact Psych/Mental Status: Normal Affect, Appropriate Vital Signs Temp Pulse Resp BP Pulse Ox 97.7 F L 62 20 H 143/63 H 96 05/14/18 08:56 05/14/18 10:56 05/14/18 08:56 05/14/18 08:56 05/14/18 08:56 Oxygen Flow Rate (L/min) 4 Oxygen Delivery Method Nasal Cannula Weight: 357 lb 12.964 oz Body Mass Index (BMI) 55.0 Finger Stick Blood Glucose 132 Intake and Output for Last 24 Hours 05/12/18 05/13/18 05/14/18 23:59 23:59 23:59 Intake Total 810 / 810 120 / 120 Output Total 3650 / 3650 1150 / 1150 Balance -2840 / -2840 -1030 / -1030 Laboratory Tests Past 24 Hrs 05/13/18 05/13/18 05/13/18 11:35 11:35 11:35 WBC 7.0 RBC 3.27 L Hgb 7.7 L Hct 27.1 L MCV 82.9 MCH 23.5 L MCHC 28.4 L RDW 15.2 H RDW Differential 46.0 H Plt Count 265 MPV 8.8 Immature Gran % (Auto) 0.300 Neut % (Auto) 87.3 H Lymph % (Auto) 5.8 L Carter % (Auto) 6.3 Eos % (Auto) 0.3 Baso % (Auto) 0.0 Absolute Neuts (auto) 6.1 Absolute Lymphs (auto) 0.41 L Total Counted Not Reportable Differential Comment SCANNED Platelet Estimate Plt Morphology Comment Specimen Type Sample Site pH Bicarbonate Actual POC Total CO2 Base Excess O2 Saturation O2 % ABG pCO2 ABG pO2 O2 Delivery Device EPAP IPAP Blood Gas Notified Whom Blood Gas Notified Time Sodium 138 Potassium 4.1 Chloride 98 Carbon Dioxide 35.0 H Anion Gap 5 BUN 19 H Creatinine 0.89 Estim Creat Clear Calc 69.38 Est GFR (MDRD) Af Amer 107 Est GFR (MDRD) Non-Af 89 BUN/Creatinine Ratio 21.3 H Glucose 61 L Lactic Acid 1.1 Calcium 8.8 Iron TIBC Iron Saturation Troponin I 0.026 B-Natriuretic Peptide Urine Color Urine Clarity Urine pH Ur Specific [place] Urine Protein Urine Glucose (UA) Urine Ketones Urine Occult Blood Urine Nitrite Urine Bilirubin Urine Urobilinogen Ur Leukocyte Esterase Urine RBC Urine WBC Ur Squamous Epith Cells Urine Bacteria Urine Mucus 05/13/18 05/13/18 05/13/18 11:35 11:35 12:17 WBC RBC Hgb Hct MCV MCH MCHC RDW RDW Differential Plt Count MPV Immature Gran % (Auto) Neut % (Auto) Lymph % (Auto) Carter % (Auto) Eos % (Auto) Baso % (Auto) Absolute Neuts (auto) Absolute Lymphs (auto) Total Counted Differential Comment Platelet Estimate Plt Morphology Comment Specimen Type ART Sample Site R Radial pH 7.38 Bicarbonate Actual 37.1 H POC Total CO2 39 Base Excess 12 H O2 Saturation 99 O2 % 50 ABG pCO2 63.3 H ABG pO2 139 H O2 Delivery Device Bi / C PAP EPAP 6 IPAP 14 Blood Gas Notified Whom ED Blood Gas Notified Time 1217 Sodium Potassium Chloride Carbon Dioxide Anion Gap BUN Creatinine Estim Creat Clear Calc Est GFR (MDRD) Af Amer Est GFR (MDRD) Non-Af BUN/Creatinine Ratio Glucose Lactic Acid Calcium Iron 20 L TIBC 212 L Iron Saturation 9.4 L Troponin I B-Natriuretic Peptide 306.9 H Urine Color Urine Clarity Urine pH Ur Specific [place] Urine Protein Urine Glucose (UA) Urine Ketones Urine Occult Blood Urine Nitrite Urine Bilirubin Urine Urobilinogen Ur Leukocyte Esterase Urine RBC Urine WBC Ur Squamous Epith Cells Urine Bacteria Urine Mucus 05/13/18 05/13/18 05/13/18 12:45 17:00 22:40 WBC RBC Hgb Hct MCV MCH MCHC RDW RDW Differential Plt Count MPV Immature Gran % (Auto) Neut % (Auto) Lymph % (Auto) Carter % (Auto) Eos % (Auto) Baso % (Auto) Absolute Neuts (auto) Absolute Lymphs (auto) Total Counted Differential Comment Platelet Estimate Plt Morphology Comment Specimen Type Sample Site pH Bicarbonate Actual POC Total CO2 Base Excess O2 Saturation O2 % ABG pCO2 ABG pO2 O2 Delivery Device EPAP IPAP Blood Gas Notified Whom Blood Gas Notified Time Sodium Potassium Chloride Carbon Dioxide Anion Gap BUN Creatinine Estim Creat Clear Calc Est GFR (MDRD) Af Amer Est GFR (MDRD) Non-Af BUN/Creatinine Ratio Glucose 88 101 Lactic Acid Calcium Iron TIBC Iron Saturation Troponin I B-Natriuretic Peptide Urine Color Yellow Urine Clarity Clear Urine pH 5.0 Ur Specific [place] 1.015 Urine Protein 30 H Urine Glucose (UA) Normal Urine Ketones Negative Urine Occult Blood 250 H Urine Nitrite Negative Urine Bilirubin Negative Urine Urobilinogen Normal Ur Leukocyte Esterase Negative Urine RBC 0-5 SEEN Urine WBC 0 SEEN Ur Squamous Epith Cells 0 SEEN Urine Bacteria 0 SEEN Urine Mucus 0 SEEN 05/14/18 05/14/18 06:05 06:05 WBC 6.1 RBC 2.82 L Hgb 6.6 L Hct 22.9 L MCV 81.2 MCH 23.4 L MCHC 28.8 L RDW 15.1 H RDW Differential 45.2 H Plt Count 243 MPV 8.5 Immature Gran % (Auto) 0.200 Neut % (Auto) 79.4 H Lymph % (Auto) 6.7 L Carter % (Auto) 10.8 H Eos % (Auto) 2.6 Baso % (Auto) 0.3 Absolute Neuts (auto) 4.9 Absolute Lymphs (auto) 0.41 L Total Counted Not Reportable Differential Comment SCAN Platelet Estimate ADEQUATE Plt Morphology Comment LARGE Specimen Type Sample Site pH Bicarbonate Actual POC Total CO2 Base Excess O2 Saturation O2 % ABG pCO2 ABG pO2 O2 Delivery Device EPAP IPAP Blood Gas Notified Whom Blood Gas Notified Time Sodium 141 Potassium 3.5 Chloride 96 L Carbon Dioxide 38.0 H Anion Gap 7 BUN 21 H Creatinine 1.18 Estim Creat Clear Calc 52.33 Est GFR (MDRD) Af Amer 77 Est GFR (MDRD) Non-Af 64 BUN/Creatinine Ratio 17.8 Glucose 91 Lactic Acid Calcium 8.4 L Iron TIBC Iron Saturation Troponin I B-Natriuretic Peptide Urine Color Urine Clarity Urine pH Ur Specific [place] Urine Protein Urine Glucose (UA) Urine Ketones Urine Occult Blood Urine Nitrite Urine Bilirubin Urine Urobilinogen Ur Leukocyte Esterase Urine RBC Urine WBC Ur Squamous Epith Cells Urine Bacteria Urine Mucus POC Glucose 05/14/18 05/14/18 05/14/18 06:42 03:41 00:59 POC Glucose 99 72 80 05/13/18 05/13/18 05/13/18 23:38 23:11 22:45 POC Glucose 87 87 97 05/13/18 05/13/18 05/13/18 22:17 16:58 16:41 POC Glucose 37 L* 96 24 L* Medical Necessity - Tobacco Use Smoking Status: Former smoker Tobacco Use: Cigarettes Assessment/Plan All Active Problems (Last Updated 05/13/18 @ 14:31 by Varun Aguilar DO) Shortness of breath (Acute) Acute on chronic diastolic heart failure (Acute) Acute on chronic respiratory failure with hypoxia and hypercapnia (Acute) Dyspnea (Acute) Tobacco abuse (Resolved) CAP (community acquired pneumonia) (Resolved) Bilateral lower leg cellulitis (Resolved) CHF exacerbation (Resolved) Hyperkalemia (Resolved) Hypomagnesemia (Resolved) Hyponatremia (Resolved) 1. Acute on chronic diastolic CHF-echocardiogram July 2017 with an EF of 60%. Chest x-ray on admission consistent with CHF. BNP 306. Continue IV Lasix. Strict I&O. Daily weight. Juan wraps bilateral lower extremities. Patient has recurrent admissions for CHF exacerbation. Suspect noncompliance at home with diet and medication regimen. Patient follows with Dr. Raymundo. 2. Chronic COPD-no acute exacerbation. Albuterol aerosol as needed. 3 day course of oral azithromycin ordered on admission due to productive cough. Patient reports this is chronic for him. Denies fever, chills. Chest x-ray without infiltrate. 3. Chronic hypoxic respiratory failure due to chronic COPD/CHF-on 4 L nasal cannula continuously at baseline. Continue supplement oxygen to maintain O2 at or above 90%. Patient follows with Dr. Clay. 4. Acute anemia on anemia of chronic disease/iron deficiency anemia-continue iron supplementation/ascorbic acid. IV Venofer x1. 1 unit PRBC for hemoglobin 6.6. Stool negative for occult blood in the past. Baseline hemoglobin 7-8. Patient recommended to follow-up with Dr. Garcia as outpatient who he saw in office end of November 2017. He was to undergo EGD/colonoscopy which was never performed. Repeat stool for occult blood. Discussed with Dr. Garcia who will again see patient on an outpatient basis. Trend CBC. 5. Obstructive sleep apnea-continue BIPAP nightly and PRN. Non-compliant with BIPAP regimen. 6. Type 2 diabetes mellitus-continue home oral and insulin regimen. Glucose low during admission suspect due to controlled diet. Daughter reports patient drinks pop all day at home. 7. Hypertension-stable, continue home regimen. 8. Hyperlipidemia-continue statin. 9. Chronic kidney disease stage II-stable, continue to monitor. 10. BPH-continue home regimen. 11. History of aortic valve replacement-previously on Eliquis which was discontinued due to acute on chronic anemia. Follows with Dr. Raymundo. #29 freestyle valve. 12. History of AAA status post repair/thoracic aortic aneurysm-continue outpatient monitoring. 13. GERD-continue PPI. 14. Super morbid obesity-encourage diet and lifestyle modifications. 15. PVD with chronic lower extremity wounds, stasis dermatitis-Juan wrap bilateral lower extremities. Legs do not appear infected. DVT prophylaxis- heparin sc. This patient was seen by YVETTE Chun under the supervision of Dr. Wilcox.
--- NOTE | 2018-05-14 11:53 | CASEMGMT ---
COREY PEREZ assessment: Face to Face with patient for initial transition planning/care coordination assessment. RN CM introduced self and role at [facility], pt voices understanding and consents to assessment at this time. Pt is sitting up in chair in no distress at this time. Pt is A/Ox4 at this time and answers all questions appropriately at this time. Care providers, pharmacy, and demographics verified at this time. PCP: Kartik Specialists: betsy Clay; patel Coto [facility]erred [facility]acy: [facility] Insurance: [facility] A/B, [place] Prescription Benefit: Yes Living Will/HPOA: Pt states has LW/HPOA and they are currently on file at [facility]. Pt states his , Naty Leal, is HPOA. LNOK: Naty Leal, Living Arrangements: Pt states lives with on main level of 1.5 story home with 3 stairs with rails into home. Pt states no concerns at home at this time. Transportation: Pt states drives self or drives and states no transportation concerns at this time. DME/HHC: Pt states has the following DME: cane, walker, w/c, grab bars, shower chair, cpap, and 4 liters home oxygen thru [place]. Pt states has had [facility] in the past and would like set up with RN thru [facility] at discharge. Call to Martina at [facility] with referral and order placed at this time. Martina states that they can take pt at this time. Pt states has been to [facility] in the past. Pt states no concerns with going home at time of discharge. Pt is retired. Pt states does not smoke or drink ETOH. Pt states no further concerns/needs at this time. CM to follow for any further discharge planning/needs. Plan: Home w/ [facility]. S[place] COREY PEREZ
--- NOTE | 2018-05-14 11:54 | NURSING ---
wound photo: left lower leg
--- NOTE | 2018-05-14 11:55 | NURSING ---
wound photo: right lower leg
[2018-05-14] MEDS: Ferrous Sulfate 325 MG Tablet PO ×2 (12:11→17:18)
[2018-05-14] MEDS: Dextrose 50%-Water 25 GM/50 ML DISP.SYRIN IV ×2 (12:11→17:29)
--- NOTE | 2018-05-14 12:34 | NURSING ---
Patient's daughter called for an update. Discussed restricting fluid at home. provided education that pop counts ass fluid and too much consumtion will cause fluid overload. Daughter explained that he drinks full sugar pop at home in large amounts and eats ice cream nightly. She stated that without getting that maybe why his sugar is dropping for us. Education provided
[2018-05-14 13:11] LABS: Bedside Glucose 49 mg/dL (70-110)
[2018-05-14 13:11] LABS: Bedside Glucose 97 mg/dL (70-110)
[2018-05-14 15:06] LABS: Bedside Glucose 34 mg/dL (70-110)
[2018-05-14 15:06] LABS: Bedside Glucose 72 mg/dL (70-110)
[2018-05-14] MEDS: Magnesium Hydroxide 30 ML UDC PO ×2 (15:20→22:40)
[2018-05-14 17:11] LABS: Bedside Glucose 41 mg/dL (70-110)
[2018-05-14 17:35] LABS: Bedside Glucose 62 mg/dL (70-110)
[2018-05-14 18:15] LABS: Bedside Glucose 102 mg/dL (70-110)
[2018-05-14 19:13] LABS: Ferritin 59 ng/mL (26-388)
[2018-05-14] MEDS: Montelukast 10 MG Tablet PO (20:00)
[2018-05-14] MEDS: Sertraline 50 MG Tablet PO (22:26)
[2018-05-14] MEDS: Doxazosin 4 MG Tablet 8 MG PO (22:28)
[2018-05-14] MEDS: Nystatin Powder 15gm Bottle 1 APPLIC TOPICAL (22:28)
[2018-05-14] MEDS: Atorvastatin Calcium 40 MG Tablet PO (22:29)
[2018-05-14 22:41] LABS: Bedside Glucose 70 mg/dL (70-110)
[2018-05-14] MEDS: Acetaminophen 500 MG Tablet 1000 MG PO (23:36)
[2018-05-15] VITALS (16 sets, daily range): BP systolic 121–138; BP diastolic 58–66; PULSE 53–72; RESP 12–22; TEMP 36.7–37.2; O2SAT 96–99
[2018-05-15] MEDS: Dextrose 50%-Water 25 GM/50 ML DISP.SYRIN IV (01:57)
[2018-05-15 04:01] LABS: Bedside Glucose 36 mg/dL (70-110)
[2018-05-15 04:01] LABS: Bedside Glucose 144 mg/dL (70-110)
[2018-05-15 06:26] LABS: Hematocrit 27.5 % (40-54); Hemoglobin 7.8 g/dl (13.0-16.5); Mean Corp Hgb Conc 28.4 g/gl (32-36); Mean Corpuscular Volume 84.6 fL (80-94); Mean Platelet Vol. 8.7 fl (6.2-12.0); Platelet Count 276 K/mm3 (150-450); RBC Distribution Width CV 15.2 % (11.6-14.6); RBC Distribution Width SD 45.9 fl (35.1-43.9); Red Blood Count 3.25 M/mm3 (4.6-6.2); White Blood Count 6.8 K/mm3 (4.4-11.0)
[2018-05-15 06:32] LABS: Scan Indicated on CBC? Y/N NO
[2018-05-15 06:45] LABS: Bedside Glucose 179 mg/dL (70-110)
[2018-05-15 06:46] LABS: Anion Gap 7 (5-15); BUN 26 mg/dL (7-18); BUN/Creat Ratio 19.3 RATIO (10-20); Calcium,Total 8.5 mg/dL (8.5-10.1); Chloride 89 mmol/L (98-107); Creatinine, Serum 1.35 mg/dL (0.70-1.30); EST Glomerular Filtration Rate 55 mL/min (>60); Est Glom Filt Rate - Afr Amer 66 mL/min (>60); Estimated Creatinine Clearance 45.74 ml/min; Glucose 164 mg/dL (74-106); Sodium Level 138 mmol/L (136-145)
[2018-05-15] MEDS: Heparin Injection (Vial) 5,000 UNIT/ML VIAL 5000 UNIT SC ×3 (06:51→21:16)
[2018-05-15] MEDS: 0.9% NaCl Peripheral Flush Adult/Peds IV (06:51)
[2018-05-15] MEDS: Furosemide 100 MG/10 ML Vial 60 MG IV (06:51)
[2018-05-15 07:00] LABS: Bedside Glucose 144 mg/dL (70-110)
[2018-05-15] MEDS: Ipratropium/Albuterol Sulfate 3 ML AMPUL.NEB INHALATION ×3 (07:12→18:54)
[2018-05-15] MEDS: Glimepiride 4 MG Tablet 8 MG PO (08:48)
[2018-05-15] MEDS: Allopurinol 300 MG Tablet PO (08:50)
[2018-05-15] MEDS: busPIRone 5 MG Tablet 10 MG PO ×2 (08:51→21:15)
[2018-05-15] MEDS: Spironolactone 25 MG Tablet PO ×2 (08:51→21:15)
[2018-05-15] MEDS: Metoprolol Tartrate 50 MG Tablet PO ×2 (08:52→21:16)
[2018-05-15] MEDS: Magnesium Oxide 400 MG Tablet PO ×2 (08:52→21:17)
[2018-05-15] MEDS: guaiFENesin 1,200 MG Tablet 1200 MG PO ×2 (08:53→21:17)
[2018-05-15] MEDS: Clopidogrel Bisulfate 75 MG Tablet PO (08:54)
[2018-05-15] MEDS: Pantoprazole Sodium 20 MG Tablet PO (08:55)
[2018-05-15] MEDS: Finasteride 5 MG Tablet PO (08:55)
[2018-05-15] MEDS: Azithromycin 250 MG Tablet 500 MG PO (08:55)
[2018-05-15] MEDS: Metolazone 2.5 MG Tablet PO (08:55)
[2018-05-15] MEDS: OLANZapine 2.5 MG Tablet PO (08:56)
[2018-05-15] MEDS: Magnesium Hydroxide 30 ML UDC PO ×2 (10:09→21:27)
[2018-05-15] MEDS: Ferrous Sulfate 325 MG Tablet PO ×2 (12:34→17:47)
--- NOTE | 2018-05-15 12:53 | PCM.PROGNOTE ---
<Colleen Hope - Last Filed: 05/15/18 13:09> Patient Problems: Active and Suspected Problems (Last Updated 05/13/18 @ 14:31 by Varun Aguilar DO) Shortness of breath (Acute) Subjective: Patient seen and examined. Patient notes mild improvement in breathing. Denies other current complaints. - Physical Exam General: Alert, Oriented x3, Cooperative, No apparent distress HEENT: Atraumatic, PERRLA, EOMI, Normocephalic Neck: Supple, No JVD, Negative Carotid Bruits Lungs: Diminished, Wheezes, - - Crackles Cardiovascular: Regular rate, Regular Rhythm, Normal S1, Normal S2, No murmurs Abdomen: Bowel Sounds Present, Soft, Non Tender, Non-Distended, Obese Extremities: No clubbing, No cyanosis, Capillary Refill Less than 3 Seconds, - - Chronic lymphedema bilateral lower extremities Skin: - - Chronic stasis dermatitis bilateral lower extremities Musculoskeletal: No Tenderness to Palpation of Joints or Extremities Neurological: Cranial nerves II-XII grossly intact, Neuro grossly intact Psych/Mental Status: Normal Affect, Appropriate Vital Signs Temp Pulse Resp BP Pulse Ox 98.7 F 64 20 H 138/66 H 97 05/15/18 09:10 05/15/18 09:10 05/15/18 09:10 05/15/18 09:10 05/15/18 09:10 Oxygen Flow Rate (L/min) 4 Oxygen Delivery Method Room Air Weight: 348 lb 15.868 oz Body Mass Index (BMI) 55.0 Finger Stick Blood Glucose 132 Intake and Output for Last 24 Hours 05/13/18 05/14/18 05/15/18 23:59 23:59 23:59 Intake Total 810 / 810 2812 / 2812 480 / 480 Output Total 3650 / 3650 5525 / 5525 300 / 300 Balance -2840 / -2840 -2713 / -2713 180 / 180 Microbiology Past 72 Hours 05/13/18 12:45 Urine Culture - Final Urine Catheter - Catheter Culture exhibits no growth. Laboratory Tests Past 24 Hrs 05/14/18 05/14/18 05/15/18 13:50 18:41 05:58 WBC 6.8 RBC 3.25 L Hgb 7.8 L Hct 27.5 L MCV 84.6 MCH 24.0 L MCHC 28.4 L RDW 15.2 H RDW Differential 45.9 H Plt Count 276 MPV 8.7 Sodium Potassium Chloride Carbon Dioxide Anion Gap BUN Creatinine Estim Creat Clear Calc Est GFR (MDRD) Af Amer Est GFR (MDRD) Non-Af BUN/Creatinine Ratio Glucose Calcium Ferritin 59 Blood Type A POSITIVE Antibody Screen NEGATIVE Crossmatch See Detail 05/15/18 05:58 WBC RBC Hgb Hct MCV MCH MCHC RDW RDW Differential Plt Count MPV Sodium 138 Potassium 4.0 Chloride 89 L Carbon Dioxide 42.0 H Anion Gap 7 BUN 26 H Creatinine 1.35 H Estim Creat Clear Calc 45.74 Est GFR (MDRD) Af Amer 66 Est GFR (MDRD) Non-Af 55 L BUN/Creatinine Ratio 19.3 Glucose 164 H Calcium 8.5 Ferritin Blood Type Antibody Screen Crossmatch POC Glucose 05/15/18 05/15/18 05/15/18 06:46 03:57 02:36 POC Glucose 144 H 179 H 144 H 05/15/18 05/14/18 05/14/18 01:50 21:32 18:11 POC Glucose 36 L* 70 102 05/14/18 05/14/18 05/14/18 17:22 16:59 15:01 POC Glucose 62 L 41 L* 72 05/14/18 05/14/18 05/14/18 14:32 12:48 12:05 POC Glucose 34 L* 97 49 L Medical Necessity - Tobacco Use Smoking Status: Former smoker Tobacco Use: Cigarettes Assessment/Plan All Active Problems (Last Updated 05/13/18 @ 14:31 by Varun Aguilar DO) Shortness of breath (Acute) Acute on chronic diastolic heart failure (Acute) Acute on chronic respiratory failure with hypoxia and hypercapnia (Acute) Dyspnea (Acute) Tobacco abuse (Resolved) CAP (community acquired pneumonia) (Resolved) Bilateral lower leg cellulitis (Resolved) CHF exacerbation (Resolved) Hyperkalemia (Resolved) Hypomagnesemia (Resolved) Hyponatremia (Resolved) 1. Acute on chronic diastolic CHF-echocardiogram July 2017 with an EF of 60%. Chest x-ray on admission consistent with CHF. BNP 306. Reduce Lasix to 40 mg IV twice daily given increased creatinine. Strict I&O. Daily weight. Juan wraps bilateral lower extremities. Patient has recurrent admissions for CHF exacerbation. Suspect noncompliance at home with diet and medication regimen. Patient follows with Dr. Raymundo. 2. Chronic COPD-no acute exacerbation. Albuterol aerosol as needed. 3 day course of oral azithromycin ordered on admission due to productive cough. Patient reports this is chronic for him. Denies fever, chills. Chest x-ray without infiltrate. 3. Chronic hypoxic respiratory failure due to chronic COPD/CHF-on 4 L nasal cannula continuously at baseline. Continue supplement oxygen to maintain O2 at or above 90%. Patient follows with Dr. Clay. 4. Acute anemia on anemia of chronic disease/iron deficiency anemia-continue iron supplementation/ascorbic acid. IV Venofer x2. S/P 1 unit PRBC for hemoglobin 6.6. Stool negative for occult blood in the past. Baseline hemoglobin 7-8. Patient recommended to follow-up with Dr. Garcia as outpatient who he saw in office end of November 2017. He was to undergo EGD/colonoscopy which was never performed. Discussed with Dr. Garica who will again see patient on an outpatient basis. Trend CBC. 5. Obstructive sleep apnea-continue BIPAP nightly and PRN. Non-compliant with BIPAP regimen. 6. Type 2 diabetes mellitus-Glucose low during admission suspect due to controlled diet. Daughter reports patient drinks pop all day at home. Lantus regimen decreased to 20 units twice daily. Continue oral regimen. 7. Hypertension-stable, continue home regimen. 8. Hyperlipidemia-continue statin. 9. Chronic kidney disease stage II-mild elevated creatinine, no ZEFERINO. Trend BMP. Lasix reduced as noted above. 10. BPH-continue home regimen. 11. History of aortic valve replacement with bioprosthetic valve 12. History of AAA status post repair/thoracic aortic aneurysm-continue outpatient monitoring. 13. GERD-continue PPI. 14. Super morbid obesity-encourage diet and lifestyle modifications. 15. PVD with chronic lower extremity wounds, stasis dermatitis-Juan wrap bilateral lower extremities. Legs do not appear infected. Continue statin, Plavix. DVT prophylaxis- heparin sc. This patient was seen by YVETTE Chun under the supervision of Dr. Robles. <Cristobal Robles - Last Filed: 05/15/18 14:31> Subjective: Breathing unchanged. Doesn't know if his legs are less swollen or not. - Physical Exam General: Alert, No apparent distress HEENT: Atraumatic, Normocephalic Oral: Moist Mucosa, No Gingival or Mucosal Lesions/ Ulcerations Lungs: Diminished, Wheezes, - Cardiovascular: Regular rate, Regular Rhythm, Normal S1, Normal S2 Abdomen: Bowel Sounds Present, Soft, Non Tender, Non-Distended, Obese Extremities: No clubbing, Capillary Refill Less than 3 Seconds, - Skin: - Musculoskeletal: No Tenderness to Palpation of Joints or Extremities Psych/Mental Status: Normal Affect, Appropriate Vital Signs Temp Pulse Resp BP Pulse Ox 37.1 C 56 L 19 H 138/66 H 97 05/15/18 09:10 05/15/18 13:02 05/15/18 13:02 05/15/18 09:10 05/15/18 09:10 Oxygen Flow Rate (L/min) 4 Oxygen Delivery Method Nasal Cannula Weight: 158.3 kg Body Mass Index (BMI) 55.0 Finger Stick Blood Glucose 132 Intake and Output for Last 24 Hours 05/13/18 05/14/18 05/15/18 23:59 23:59 23:59 Intake Total 810 / 810 2812 / 2812 960 / 960 Output Total 3650 / 3650 5525 / 5525 1150 / 1150 Balance -2840 / -2840 -2713 / -2713 -190 / -190 Microbiology Past 72 Hours 05/13/18 12:45 Urine Culture - Final Urine Catheter - Catheter Culture exhibits no growth. Laboratory Tests Past 24 Hrs 05/14/18 05/14/18 05/15/18 13:50 18:41 05:58 WBC 6.8 RBC 3.25 L Hgb 7.8 L Hct 27.5 L MCV 84.6 MCH 24.0 L MCHC 28.4 L RDW 15.2 H RDW Differential 45.9 H Plt Count 276 MPV 8.7 Sodium Potassium Chloride Carbon Dioxide Anion Gap BUN Creatinine Estim Creat Clear Calc Est GFR (MDRD) Af Amer Est GFR (MDRD) Non-Af BUN/Creatinine Ratio Glucose Calcium Ferritin 59 Blood Type A POSITIVE Antibody Screen NEGATIVE Crossmatch See Detail 05/15/18 05:58 WBC RBC Hgb Hct MCV MCH MCHC RDW RDW Differential Plt Count MPV Sodium 138 Potassium 4.0 Chloride 89 L Carbon Dioxide 42.0 H Anion Gap 7 BUN 26 H Creatinine 1.35 H Estim Creat Clear Calc 45.74 Est GFR (MDRD) Af Amer 66 Est GFR (MDRD) Non-Af 55 L BUN/Creatinine Ratio 19.3 Glucose 164 H Calcium 8.5 Ferritin Blood Type Antibody Screen Crossmatch POC Glucose 05/15/18 05/15/18 05/15/18 06:46 03:57 02:36 POC Glucose 144 H 179 H 144 H 05/15/18 05/14/18 05/14/18 01:50 21:32 18:11 POC Glucose 36 L* 70 102 05/14/18 05/14/18 05/14/18 17:22 16:59 15:01 POC Glucose 62 L 41 L* 72 05/14/18 14:32 POC Glucose 34 L* Assessment/Plan Patient seen and examined independently. Data reviewed. I agree with the above note by the nurse practitioner. 1. Acute HFpEF EF 60% from echo on 08/09 Continue IV lasix weight down 9.8 kg still volume overloaded caution with increased creatinine. 2. Iron-deficiency anemia venofer s/p 1 unit PRBC monitor 3. DM2 frequent hypoglycemia dc oral hypoglycemics continue lantus at 20 BID for now Code Visit Inpatient E&M: 75202 Subs Hosp L2
--- NOTE | 2018-05-15 12:57 | PN_ITS ---
<Colleen Hope - Last Filed: 05/15/18 13:09> Patient Problems: Active and Suspected Problems (Last Updated 05/13/18 @ 14:31 by Varun Aguilar DO) Shortness of breath (Acute) Subjective: Patient seen and examined. Patient notes mild improvement in breathing. Denies other current complaints. - Physical Exam General: Alert, Oriented x3, Cooperative, No apparent distress HEENT: Atraumatic, PERRLA, EOMI, Normocephalic Neck: Supple, No JVD, Negative Carotid Bruits Lungs: Diminished, Wheezes, - - Crackles Cardiovascular: Regular rate, Regular Rhythm, Normal S1, Normal S2, No murmurs Abdomen: Bowel Sounds Present, Soft, Non Tender, Non-Distended, Obese Extremities: No clubbing, No cyanosis, Capillary Refill Less than 3 Seconds, - - Chronic lymphedema bilateral lower extremities Skin: - - Chronic stasis dermatitis bilateral lower extremities Musculoskeletal: No Tenderness to Palpation of Joints or Extremities Neurological: Cranial nerves II-XII grossly intact, Neuro grossly intact Psych/Mental Status: Normal Affect, Appropriate Vital Signs Temp Pulse Resp BP Pulse Ox 98.7 F 64 20 H 138/66 H 97 05/15/18 09:10 05/15/18 09:10 05/15/18 09:10 05/15/18 09:10 05/15/18 09:10 Oxygen Flow Rate (L/min) 4 Oxygen Delivery Method Room Air Weight: 348 lb 15.868 oz Body Mass Index (BMI) 55.0 Finger Stick Blood Glucose 132 Intake and Output for Last 24 Hours 05/13/18 05/14/18 05/15/18 23:59 23:59 23:59 Intake Total 810 / 810 2812 / 2812 480 / 480 Output Total 3650 / 3650 5525 / 5525 300 / 300 Balance -2840 / -2840 -2713 / -2713 180 / 180 Microbiology Past 72 Hours 05/13/18 12:45 Urine Culture - Final Urine Catheter - Catheter Culture exhibits no growth. Laboratory Tests Past 24 Hrs 05/14/18 05/14/18 05/15/18 13:50 18:41 05:58 WBC 6.8 RBC 3.25 L Hgb 7.8 L Hct 27.5 L MCV 84.6 MCH 24.0 L MCHC 28.4 L RDW 15.2 H RDW Differential 45.9 H Plt Count 276 MPV 8.7 Sodium Potassium Chloride Carbon Dioxide Anion Gap BUN Creatinine Estim Creat Clear Calc Est GFR (MDRD) Af Amer Est GFR (MDRD) Non-Af BUN/Creatinine Ratio Glucose Calcium Ferritin 59 Blood Type A POSITIVE Antibody Screen NEGATIVE Crossmatch See Detail 05/15/18 05:58 WBC RBC Hgb Hct MCV MCH MCHC RDW RDW Differential Plt Count MPV Sodium 138 Potassium 4.0 Chloride 89 L Carbon Dioxide 42.0 H Anion Gap 7 BUN 26 H Creatinine 1.35 H Estim Creat Clear Calc 45.74 Est GFR (MDRD) Af Amer 66 Est GFR (MDRD) Non-Af 55 L BUN/Creatinine Ratio 19.3 Glucose 164 H Calcium 8.5 Ferritin Blood Type Antibody Screen Crossmatch POC Glucose 05/15/18 05/15/18 05/15/18 06:46 03:57 02:36 POC Glucose 144 H 179 H 144 H 05/15/18 05/14/18 05/14/18 01:50 21:32 18:11 POC Glucose 36 L* 70 102 05/14/18 05/14/18 05/14/18 17:22 16:59 15:01 POC Glucose 62 L 41 L* 72 05/14/18 05/14/18 05/14/18 14:32 12:48 12:05 POC Glucose 34 L* 97 49 L Medical Necessity - Tobacco Use Smoking Status: Former smoker Tobacco Use: Cigarettes Assessment/Plan All Active Problems (Last Updated 05/13/18 @ 14:31 by Varun Aguilar DO) Shortness of breath (Acute) Acute on chronic diastolic heart failure (Acute) Acute on chronic respiratory failure with hypoxia and hypercapnia (Acute) Dyspnea (Acute) Tobacco abuse (Resolved) CAP (community acquired pneumonia) (Resolved) Bilateral lower leg cellulitis (Resolved) CHF exacerbation (Resolved) Hyperkalemia (Resolved) Hypomagnesemia (Resolved) Hyponatremia (Resolved) 1. Acute on chronic diastolic CHF-echocardiogram July 2017 with an EF of 60%. Chest x-ray on admission consistent with CHF. BNP 306. Reduce Lasix to 40 mg IV twice daily given increased creatinine. Strict I&O. Daily weight. Juan wraps bilateral lower extremities. Patient has recurrent admissions for CHF exacerbation. Suspect noncompliance at home with diet and medication regimen. Patient follows with Dr. Raymundo. 2. Chronic COPD-no acute exacerbation. Albuterol aerosol as needed. 3 day course of oral azithromycin ordered on admission due to productive cough. Patient reports this is chronic for him. Denies fever, chills. Chest x-ray without infiltrate. 3. Chronic hypoxic respiratory failure due to chronic COPD/CHF-on 4 L nasal cannula continuously at baseline. Continue supplement oxygen to maintain O2 at or above 90%. Patient follows with Dr. Clay. 4. Acute anemia on anemia of chronic disease/iron deficiency anemia-continue iron supplementation/ascorbic acid. IV Venofer x2. S/P 1 unit PRBC for hemoglobin 6.6. Stool negative for occult blood in the past. Baseline hemoglobin 7-8. Patient recommended to follow-up with Dr. Gacria as outpatient who he saw in office end of November 2017. He was to undergo EGD/colonoscopy which was never performed. Discussed with Dr. Garcia who will again see patient on an outpatient basis. Trend CBC. 5. Obstructive sleep apnea-continue BIPAP nightly and PRN. Non-compliant with BIPAP regimen. 6. Type 2 diabetes mellitus-Glucose low during admission suspect due to controlled diet. Daughter reports patient drinks pop all day at home. Lantus regimen decreased to 20 units twice daily. Continue oral regimen. 7. Hypertension-stable, continue home regimen. 8. Hyperlipidemia-continue statin. 9. Chronic kidney disease stage II-mild elevated creatinine, no ZEFERINO. Trend BMP. Lasix reduced as noted above. 10. BPH-continue home regimen. 11. History of aortic valve replacement with bioprosthetic valve 12. History of AAA status post repair/thoracic aortic aneurysm-continue outpatient monitoring. 13. GERD-continue PPI. 14. Super morbid obesity-encourage diet and lifestyle modifications. 15. PVD with chronic lower extremity wounds, stasis dermatitis-Juan wrap bila teral lower extremities. Legs do not appear infected. Continue statin, Plavix. DVT prophylaxis- heparin sc. This patient was seen by YVETTE Chun under the supervision of Dr. Robles. <Cristobal Robles - Last Filed: 05/15/18 14:31> Subjective: Breathing unchanged. Doesn't know if his legs are less swollen or not. - Physical Exam General: Alert, No apparent distress HEENT: Atraumatic, Normocephalic Oral: Moist Mucosa, No Gingival or Mucosal Lesions/ Ulcerations Lungs: Diminished, Wheezes, - Cardiovascular: Regular rate, Regular Rhythm, Normal S1, Normal S2 Abdomen: Bowel Sounds Present, Soft, Non Tender, Non-Distended, Obese Extremities: No clubbing, Capillary Refill Less than 3 Seconds, - Skin: - Musculoskeletal: No Tenderness to Palpation of Joints or Extremities Psych/Mental Status: Normal Affect, Appropriate Vital Signs Temp Pulse Resp BP Pulse Ox 37.1 C 56 L 19 H 138/66 H 97 05/15/18 09:10 05/15/18 13:02 05/15/18 13:02 05/15/18 09:10 05/15/18 09:10 Oxygen Flow Rate (L/min) 4 Oxygen Delivery Method Nasal Cannula Weight: 158.3 kg Body Mass Index (BMI) 55.0 Finger Stick Blood Glucose 132 Intake and Output for Last 24 Hours 05/13/18 05/14/18 05/15/18 23:59 23:59 23:59 Intake Total 810 / 810 2812 / 2812 960 / 960 Output Total 3650 / 3650 5525 / 5525 1150 / 1150 Balance -2840 / -2840 -2713 / -2713 -190 / -190 Microbiology Past 72 Hours 05/13/18 12:45 Urine Culture - Final Urine Catheter - Catheter Culture exhibits no growth. Laboratory Tests Past 24 Hrs 05/14/18 05/14/18 05/15/18 13:50 18:41 05:58 WBC 6.8 RBC 3.25 L Hgb 7.8 L Hct 27.5 L MCV 84.6 MCH 24.0 L MCHC 28.4 L RDW 15.2 H RDW Differential 45.9 H Plt Count 276 MPV 8.7 Sodium Potassium Chloride Carbon Dioxide Anion Gap BUN Creatinine Estim Creat Clear Calc Est GFR (MDRD) Af Amer Est GFR (MDRD) Non-Af BUN/Creatinine Ratio Glucose Calcium Ferritin 59 Blood Type A POSITIVE Antibody Screen NEGATIVE Crossmatch See Detail 05/15/18 05:58 WBC RBC Hgb Hct MCV MCH MCHC RDW RDW Differential Plt Count MPV Sodium 138 Potassium 4.0 Chloride 89 L Carbon Dioxide 42.0 H Anion Gap 7 BUN 26 H Creatinine 1.35 H Estim Creat Clear Calc 45.74 Est GFR (MDRD) Af Amer 66 Est GFR (MDRD) Non-Af 55 L BUN/Creatinine Ratio 19.3 Glucose 164 H Calcium 8.5 Ferritin Blood Type Antibody Screen Crossmatch POC Glucose 05/15/18 05/15/18 05/15/18 06:46 03:57 02:36 POC Glucose 144 H 179 H 144 H 05/15/18 05/14/18 05/14/18 01:50 21:32 18:11 POC Glucose 36 L* 70 102 05/14/18 05/14/18 05/14/18 17:22 16:59 15:01 POC Glucose 62 L 41 L* 72 05/14/18 14:32 POC Glucose 34 L* Assessment/Plan Patient seen and examined independently. Data reviewed. I agree with the above note by the nurse practitioner. 1. Acute HFpEF * EF 60% from echo on 08/09 * Continue IV lasix * weight down 9.8 kg * still volume overloaded * caution with increased creatinine. 2. Iron-deficiency anemia * venofer * s/p 1 unit PRBC * monitor 3. DM2 * frequent hypoglycemia * dc oral hypoglycemics * continue lantus at 20 BID for now Code Visit Inpatient E&M: 27041 Subs Hosp L2
--- NOTE | 2018-05-15 15:34 | NURSING ---
Eusebio Sanchez taking over nursing care at this time.
[2018-05-15] MEDS: Furosemide 40 MG/4 ML Vial IV (17:47)
[2018-05-15] MEDS: Montelukast 10 MG Tablet PO (20:08)
[2018-05-15] MEDS: Doxazosin 4 MG Tablet 8 MG PO (21:16)
[2018-05-15] MEDS: Atorvastatin Calcium 40 MG Tablet PO (21:16)
[2018-05-15] MEDS: Sertraline 50 MG Tablet PO (21:18)
[2018-05-15 22:10] LABS: Bedside Glucose 218 mg/dL (70-110)
[2018-05-16] VITALS (19 sets, daily range): BP systolic 124–151; BP diastolic 45–62; PULSE 53–84; RESP 12–23; TEMP 35.7–37.2; O2SAT 97–100
[2018-05-16] MEDS: Acetaminophen 500 MG Tablet 1000 MG PO (00:11)
[2018-05-16] MEDS: Ipratropium/Albuterol Sulfate 3 ML AMPUL.NEB INHALATION ×4 (00:21→20:07)
[2018-05-16] MEDS: Heparin Injection (Vial) 5,000 UNIT/ML VIAL 5000 UNIT SC ×3 (06:16→21:27)
[2018-05-16 07:00] LABS: Hematocrit 28.7 % (40-54); Hemoglobin 8.2 g/dl (13.0-16.5); Mean Corp Hgb Conc 28.6 g/gl (32-36); Mean Corpuscular Hgb 23.9 pg (27.0-32.0); Mean Corpuscular Volume 83.7 fL (80-94); Mean Platelet Vol. 8.7 fl (6.2-12.0); Platelet Count 245 K/mm3 (150-450); RBC Distribution Width CV 15.4 % (11.6-14.6); RBC Distribution Width SD 47.5 fl (35.1-43.9); Red Blood Count 3.43 M/mm3 (4.6-6.2); White Blood Count 6.2 K/mm3 (4.4-11.0)
[2018-05-16 07:12] LABS: Scan Indicated on CBC? Y/N NO
[2018-05-16 07:25] LABS: Anion Gap 5 (5-15); BUN 29 mg/dL (7-18); Calcium,Total 8.6 mg/dL (8.5-10.1); Chloride 89 mmol/L (98-107); Creatinine, Serum 1.26 mg/dL (0.70-1.30); EST Glomerular Filtration Rate 59 mL/min (>60); Est Glom Filt Rate - Afr Amer 72 mL/min (>60); Estimated Creatinine Clearance 49.01 ml/min; Glucose 95 mg/dL (74-106); Potassium 3.8 mmol/L (3.5-5.1); Sodium Level 135 mmol/L (136-145)
[2018-05-16] MEDS: 0.9% NaCl Peripheral Flush Adult/Peds IV ×2 (09:15→17:44)
[2018-05-16] MEDS: Furosemide 40 MG/4 ML Vial IV ×2 (09:15→17:51)
[2018-05-16] MEDS: Magnesium Hydroxide 30 ML UDC PO ×2 (09:16→21:29)
[2018-05-16] MEDS: Pantoprazole Sodium 20 MG Tablet PO (09:16)
[2018-05-16] MEDS: Metolazone 2.5 MG Tablet PO (09:16)
[2018-05-16] MEDS: busPIRone 5 MG Tablet 10 MG PO ×2 (09:17→21:27)
[2018-05-16] MEDS: Metoprolol Tartrate 50 MG Tablet PO ×2 (09:17→21:29)
[2018-05-16] MEDS: Azithromycin 250 MG Tablet 500 MG PO (09:17)
[2018-05-16] MEDS: Magnesium Oxide 400 MG Tablet PO ×2 (09:17→21:29)
[2018-05-16] MEDS: Spironolactone 25 MG Tablet PO ×2 (09:17→21:26)
[2018-05-16] MEDS: Clopidogrel Bisulfate 75 MG Tablet PO (09:17)
[2018-05-16] MEDS: Allopurinol 300 MG Tablet PO (09:17)
[2018-05-16] MEDS: Finasteride 5 MG Tablet PO (09:18)
[2018-05-16] MEDS: guaiFENesin 1,200 MG Tablet 1200 MG PO ×2 (09:18→21:31)
[2018-05-16] MEDS: OLANZapine 2.5 MG Tablet PO (09:25)
[2018-05-16] MEDS: Ferrous Sulfate 325 MG Tablet PO ×2 (12:21→17:44)
--- NOTE | 2018-05-16 14:11 | PCM.PROGNOTE ---
<Colleen Hope - Last Filed: 05/16/18 14:16> Patient Problems: Active and Suspected Problems (Last Updated 05/13/18 @ 14:31 by Varun Aguilar DO) Shortness of breath (Acute) Subjective: Patient seen and examined. Notes improvement in breathing. Per weight documentation, -22 pounds since admission. Continues to have significant urine output. - Physical Exam General: Alert, Oriented x3, Cooperative HEENT: Atraumatic, PERRLA, EOMI, Normocephalic Neck: Supple, No JVD, Negative Carotid Bruits Lungs: Clear to auscultation, Diminished Cardiovascular: Regular rate, Regular Rhythm, Normal S1, Normal S2, No murmurs Abdomen: Bowel Sounds Present, Soft, Non Tender, Non-Distended, Obese, Hernia Extremities: No clubbing, No cyanosis, - - Chronic lymphedema bilateral lower extremities Skin: - - Chronic stasis dermatitis bilateral lower extremities Musculoskeletal: No Tenderness to Palpation of Joints or Extremities Neurological: Cranial nerves II-XII grossly intact, Neuro grossly intact Psych/Mental Status: Normal Affect, Appropriate Vital Signs Temp Pulse Resp BP Pulse Ox 98.2 F 60 20 H 136/51 H 99 05/16/18 12:07 05/16/18 13:37 05/16/18 13:37 05/16/18 12:07 05/16/18 12:07 Oxygen Flow Rate (L/min) 4 Oxygen Delivery Method Nasal Cannula Weight: 348 lb 15.868 oz Body Mass Index (BMI) 55.0 Finger Stick Blood Glucose 132 Intake and Output for Last 24 Hours 05/14/18 05/15/18 05/16/18 23:59 23:59 23:59 Intake Total 2812 / 2812 1640 / 1640 670 / 670 Output Total 5525 / 5525 2800 / 2800 1415 / 1415 Balance -2713 / -2713 -1160 / -1160 -745 / -745 Microbiology Past 72 Hours 05/13/18 12:45 Urine Culture - Final Urine Catheter - Catheter Culture exhibits no growth. Laboratory Tests Past 24 Hrs 05/16/18 05/16/18 05:47 05:47 WBC 6.2 RBC 3.43 L Hgb 8.2 L Hct 28.7 L MCV 83.7 MCH 23.9 L MCHC 28.6 L RDW 15.4 H RDW Differential 47.5 H Plt Count 245 MPV 8.7 Sodium 135 L Potassium 3.8 Chloride 89 L Carbon Dioxide 41.0 H Anion Gap 5 BUN 29 H Creatinine 1.26 Estim Creat Clear Calc 49.01 Est GFR (MDRD) Af Amer 72 Est GFR (MDRD) Non-Af 59 L BUN/Creatinine Ratio 23.0 H Glucose 95 Calcium 8.6 POC Glucose 05/15/18 21:20 POC Glucose 218 H Medical Necessity - Tobacco Use Smoking Status: Former smoker Tobacco Use: Cigarettes Assessment/Plan All Active Problems (Last Updated 05/13/18 @ 14:31 by Varun Aguilar DO) Shortness of breath (Acute) Acute on chronic diastolic heart failure (Acute) Acute on chronic respiratory failure with hypoxia and hypercapnia (Acute) Dyspnea (Acute) Tobacco abuse (Resolved) CAP (community acquired pneumonia) (Resolved) Bilateral lower leg cellulitis (Resolved) CHF exacerbation (Resolved) Hyperkalemia (Resolved) Hypomagnesemia (Resolved) Hyponatremia (Resolved) 1. Acute on chronic diastolic CHF-echocardiogram July 2017 with an EF of 60%. Chest x-ray on admission consistent with CHF. BNP 306. Continue Lasix 40 mg IV twice daily. Strict I&O. Daily weight. -22lb since admission. Continues to have significant urine output. Juan wraps bilateral lower extremities. Patient has recurrent admissions for CHF exacerbation. Suspect noncompliance at home with diet and medication regimen. Patient follows with Dr. Raymundo. 2. Chronic COPD-no acute exacerbation. Albuterol aerosol as needed. 3 day course of oral azithromycin ordered on admission due to productive cough. Patient reports this is chronic for him. Denies fever, chills. Chest x-ray without infiltrate. 3. Chronic hypoxic respiratory failure due to chronic COPD/CHF-on 4 L nasal cannula continuously at baseline. Continue supplement oxygen to maintain O2 at or above 90%. Patient follows with Dr. Clay. 4. Acute anemia on anemia of chronic disease/iron deficiency anemia-continue iron supplementation/ascorbic acid. IV Venofer x2. S/P 1 unit PRBC for hemoglobin 6.6. Stool negative for occult blood in the past. Baseline hemoglobin 7-8. Patient recommended to follow-up with Dr. Gacria as outpatient who he saw in office end of November 2017. He was to undergo EGD/colonoscopy which was never performed. Discussed with Dr. Garcia who will again see patient on an outpatient basis. Trend CBC. 5. Obstructive sleep apnea-continue BIPAP nightly and PRN. Non-compliant with BIPAP regimen. 6. Type 2 diabetes mellitus-Glucose low during admission suspect due to controlled diet. Daughter reports patient drinks pop all day at home. Lantus regimen decreased to 20 units twice daily. 7. Hypertension-stable, continue home regimen. 8. Hyperlipidemia-continue statin. 9. Chronic kidney disease stage II-stable, trend BMP. 10. BPH-continue home regimen. 11. History of aortic valve replacement with bioprosthetic valve 12. History of AAA status post repair/thoracic aortic aneurysm-continue outpatient monitoring. 13. GERD-continue PPI. 14. Super morbid obesity-encourage diet and lifestyle modifications. 15. PVD with chronic lower extremity wounds, stasis dermatitis-Juan wrap bilateral lower extremities. Legs do not appear infected. Continue statin, Plavix. DVT prophylaxis- heparin sc. This patient was seen by YVETTE Chun under the supervision of Dr. Robles. <Cristobal Robles - Last Filed: 05/16/18 15:41> Subjective: Breathing better. Still with LE edema. - Physical Exam General: Alert, Cooperative HEENT: Atraumatic, Normocephalic Lungs: Clear to auscultation, No rhonchi, Diminished Cardiovascular: Regular rate, Regular Rhythm, Normal S1, Normal S2 Abdomen: Bowel Sounds Present, Soft, Non Tender, Non-Distended, No Hepato-splenomegaly Extremities: No edema, No Calf Tenderness, - Skin: - Neurological: Cranial nerves II-XII grossly intact, Neuro grossly intact Psych/Mental Status: Normal Affect, Appropriate Vital Signs Temp Pulse Resp BP Pulse Ox 36.8 C 60 20 H 136/51 H 99 05/16/18 12:07 05/16/18 13:37 05/16/18 13:37 05/16/18 12:07 05/16/18 12:07 Oxygen Flow Rate (L/min) 4 Oxygen Delivery Method Nasal Cannula Weight: 158.3 kg Body Mass Index (BMI) 55.0 Finger Stick Blood Glucose 132 Intake and Output for Last 24 Hours 05/14/18 05/15/18 05/16/18 23:59 23:59 23:59 Intake Total 2812 / 2812 1640 / 1640 670 / 670 Output Total 5525 / 5525 2800 / 2800 1415 / 1415 Balance -2713 / -2713 -1160 / -1160 -745 / -745 Microbiology Past 72 Hours 05/13/18 12:45 Urine Culture - Final Urine Catheter - Catheter Culture exhibits no growth. Laboratory Tests Past 24 Hrs 05/16/18 05/16/18 05:47 05:47 WBC 6.2 RBC 3.43 L Hgb 8.2 L Hct 28.7 L MCV 83.7 MCH 23.9 L MCHC 28.6 L RDW 15.4 H RDW Differential 47.5 H Plt Count 245 MPV 8.7 Sodium 135 L Potassium 3.8 Chloride 89 L Carbon Dioxide 41.0 H Anion Gap 5 BUN 29 H Creatinine 1.26 Estim Creat Clear Calc 49.01 Est GFR (MDRD) Af Amer 72 Est GFR (MDRD) Non-Af 59 L BUN/Creatinine Ratio 23.0 H Glucose 95 Calcium 8.6 POC Glucose 05/15/18 21:20 POC Glucose 218 H Assessment/Plan Patient seen and examined independently. Data reviewed. I agree with the above note by the nurse practitioner. 1. Acute HFpEF EF 60% from echo on 08/09 Continue IV lasix weight down 9.8 kg, dry weight around 150 kg still volume overloaded 2. Iron-deficiency anemia venofer s/p 1 unit PRBC monitor 3. DM2 frequent hypoglycemia dc oral hypoglycemics continue lantus at 20 BID for now Code Visit Inpatient E&M: 36687 Subs Hosp L2
--- NOTE | 2018-05-16 14:16 | PN_ITS ---
<Colleen Hope - Last Filed: 05/16/18 14:16> Patient Problems: Active and Suspected Problems (Last Updated 05/13/18 @ 14:31 by Varnu Aguilar DO) Shortness of breath (Acute) Subjective: Patient seen and examined. Notes improvement in breathing. Per weight documentation, -22 pounds since admission. Continues to have significant urine output. - Physical Exam General: Alert, Oriented x3, Cooperative HEENT: Atraumatic, PERRLA, EOMI, Normocephalic Neck: Supple, No JVD, Negative Carotid Bruits Lungs: Clear to auscultation, Diminished Cardiovascular: Regular rate, Regular Rhythm, Normal S1, Normal S2, No murmurs Abdomen: Bowel Sounds Present, Soft, Non Tender, Non-Distended, Obese, Hernia Extremities: No clubbing, No cyanosis, - - Chronic lymphedema bilateral lower extremities Skin: - - Chronic stasis dermatitis bilateral lower extremities Musculoskeletal: No Tenderness to Palpation of Joints or Extremities Neurological: Cranial nerves II-XII grossly intact, Neuro grossly intact Psych/Mental Status: Normal Affect, Appropriate Vital Signs Temp Pulse Resp BP Pulse Ox 98.2 F 60 20 H 136/51 H 99 05/16/18 12:07 05/16/18 13:37 05/16/18 13:37 05/16/18 12:07 05/16/18 12:07 Oxygen Flow Rate (L/min) 4 Oxygen Delivery Method Nasal Cannula Weight: 348 lb 15.868 oz Body Mass Index (BMI) 55.0 Finger Stick Blood Glucose 132 Intake and Output for Last 24 Hours 05/14/18 05/15/18 05/16/18 23:59 23:59 23:59 Intake Total 2812 / 2812 1640 / 1640 670 / 670 Output Total 5525 / 5525 2800 / 2800 1415 / 1415 Balance -2713 / -2713 -1160 / -1160 -745 / -745 Microbiology Past 72 Hours 05/13/18 12:45 Urine Culture - Final Urine Catheter - Catheter Culture exhibits no growth. Laboratory Tests Past 24 Hrs 05/16/18 05/16/18 05:47 05:47 WBC 6.2 RBC 3.43 L Hgb 8.2 L Hct 28.7 L MCV 83.7 MCH 23.9 L MCHC 28.6 L RDW 15.4 H RDW Differential 47.5 H Plt Count 245 MPV 8.7 Sodium 135 L Potassium 3.8 Chloride 89 L Carbon Dioxide 41.0 H Anion Gap 5 BUN 29 H Creatinine 1.26 Estim Creat Clear Calc 49.01 Est GFR (MDRD) Af Amer 72 Est GFR (MDRD) Non-Af 59 L BUN/Creatinine Ratio 23.0 H Glucose 95 Calcium 8.6 POC Glucose 05/15/18 21:20 POC Glucose 218 H Medical Necessity - Tobacco Use Smoking Status: Former smoker Tobacco Use: Cigarettes Assessment/Plan All Active Problems (Last Updated 05/13/18 @ 14:31 by Varun Aguilar DO) Shortness of breath (Acute) Acute on chronic diastolic heart failure (Acute) Acute on chronic respiratory failure with hypoxia and hypercapnia (Acute) Dyspnea (Acute) Tobacco abuse (Resolved) CAP (community acquired pneumonia) (Resolved) Bilateral lower leg cellulitis (Resolved) CHF exacerbation (Resolved) Hyperkalemia (Resolved) Hypomagnesemia (Resolved) Hyponatremia (Resolved) 1. Acute on chronic diastolic CHF-echocardiogram July 2017 with an EF of 60%. Chest x-ray on admission consistent with CHF. BNP 306. Continue Lasix 40 mg IV twice daily. Strict I&O. Daily weight. -22lb since admission. Continues to have significant urine output. Juan wraps bilateral lower extremities. Patient has recurrent admissions for CHF exacerbation. Suspect noncompliance at home with diet and medication regimen. Patient follows with Dr. Raymundo. 2. Chronic COPD-no acute exacerbation. Albuterol aerosol as needed. 3 day course of oral azithromycin ordered on admission due to productive cough. Patient reports this is chronic for him. Denies fever, chills. Chest x-ray without infiltrate. 3. Chronic hypoxic respiratory failure due to chronic COPD/CHF-on 4 L nasal cannula continuously at baseline. Continue supplement oxygen to maintain O2 at or above 90%. Patient follows with Dr. Clay. 4. Acute anemia on anemia of chronic disease/iron deficiency anemia-continue iron supplementation/ascorbic acid. IV Venofer x2. S/P 1 unit PRBC for hemoglobin 6.6. Stool negative for occult blood in the past. Baseline hemoglobin 7-8. Patient recommended to follow-up with Dr. Garcia as outpatient who he saw in office end of November 2017. He was to undergo EGD/colonoscopy which was never performed. Discussed with Dr. Garcia who will again see patient on an outpatient basis. Trend CBC. 5. Obstructive sleep apnea-continue BIPAP nightly and PRN. Non-compliant with BIPAP regimen. 6. Type 2 diabetes mellitus-Glucose low during admission suspect due to controlled diet. Daughter reports patient drinks pop all day at home. Lantus regimen decreased to 20 units twice daily. 7. Hypertension-stable, continue home regimen. 8. Hyperlipidemia-continue statin. 9. Chronic kidney disease stage II-stable, trend BMP. 10. BPH-continue home regimen. 11. History of aortic valve replacement with bioprosthetic valve 12. History of AAA status post repair/thoracic aortic aneurysm-continue outpatient monitoring. 13. GERD-continue PPI. 14. Super morbid obesity-encourage diet and lifestyle modifications. 15. PVD with chronic lower extremity wounds, stasis dermatitis-Juan wrap bilateral lower extremities. Legs do not appear infected. Continue statin, Plavix. DVT prophylaxis- heparin sc. This patient was seen by YVETTE Chun under the supervision of Dr. Robles. <Cristobal Robles - Last Filed: 05/16/18 15:41> Subjective: Breathing better. Still with LE edema. - Physical Exam General: Alert, Cooperative HEENT: Atraumatic, Normocephalic Lungs: Clear to auscultation, No rhonchi, Diminished Cardiovascular: Regular rate, Regular Rhythm, Normal S1, Normal S2 Abdomen: Bowel Sounds Present, Soft, Non Tender, Non-Distended, No Hepato- splenomegaly Extremities: No edema, No Calf Tenderness, - Skin: - Neurological: Cranial nerves II-XII grossly intact, Neuro grossly intact Psych/Mental Status: Normal Affect, Appropriate Vital Signs Temp Pulse Resp BP Pulse Ox 36.8 C 60 20 H 136/51 H 99 05/16/18 12:07 05/16/18 13:37 05/16/18 13:37 05/16/18 12:07 05/16/18 12:07 Oxygen Flow Rate (L/min) 4 Oxygen Delivery Method Nasal Cannula Weight: 158.3 kg Body Mass Index (BMI) 55.0 Finger Stick Blood Glucose 132 Intake and Output for Last 24 Hours 05/14/18 05/15/18 05/16/18 23:59 23:59 23:59 Intake Total 2812 / 2812 1640 / 1640 670 / 670 Output Total 5525 / 5525 2800 / 2800 1415 / 1415 Balance -2713 / -2713 -1160 / -1160 -745 / -745 Microbiology Past 72 Hours 05/13/18 12:45 Urine Culture - Final Urine Catheter - Catheter Culture exhibits no growth. Laboratory Tests Past 24 Hrs 05/16/18 05/16/18 05:47 05:47 WBC 6.2 RBC 3.43 L Hgb 8.2 L Hct 28.7 L MCV 83.7 MCH 23.9 L MCHC 28.6 L RDW 15.4 H RDW Differential 47.5 H Plt Count 245 MPV 8.7 Sodium 135 L Potassium 3.8 Chloride 89 L Carbon Dioxide 41.0 H Anion Gap 5 BUN 29 H Creatinine 1.26 Estim Creat Clear Calc 49.01 Est GFR (MDRD) Af Amer 72 Est GFR (MDRD) Non-Af 59 L BUN/Creatinine Ratio 23.0 H Glucose 95 Calcium 8.6 POC Glucose 05/15/18 21:20 POC Glucose 218 H Assessment/Plan Patient seen and examined independently. Data reviewed. I agree with the above note by the nurse practitioner. 1. Acute HFpEF * EF 60% from echo on 08/09 * Continue IV lasix * weight down 9.8 kg, dry weight around 150 kg * still volume overloaded 2. Iron-deficiency anemia * venofer * s/p 1 unit PRBC * monitor 3. DM2 * frequent hypoglycemia * dc oral hypoglycemics * continue lantus at 20 BID for now Code Visit Inpatient E&M: 99931 Subs Hosp L2
[2018-05-16] MEDS: Montelukast 10 MG Tablet PO (21:26)
[2018-05-16] MEDS: Doxazosin 4 MG Tablet 8 MG PO (21:27)
[2018-05-16] MEDS: Atorvastatin Calcium 40 MG Tablet PO (21:29)
[2018-05-16] MEDS: Sertraline 50 MG Tablet PO (21:30)
[2018-05-16 23:56] LABS: Bedside Glucose 184 mg/dL (70-110)
[2018-05-17] VITALS (12 sets, daily range): BP systolic 125–148; BP diastolic 46–70; PULSE 54–86; RESP 12–20; TEMP 36.6–36.7; O2SAT 92–98
[2018-05-17] MEDS: Acetaminophen 500 MG Tablet 1000 MG PO (01:28)
--- NOTE | 2018-05-17 03:34 | NURSING ---
Pt okay with having all 4 side rails up at this time.
[2018-05-17] MEDS: Heparin Injection (Vial) 5,000 UNIT/ML VIAL 5000 UNIT SC ×2 (06:19→14:17)
[2018-05-17 06:41] LABS: Hematocrit 27.8 % (40-54); Hemoglobin 7.9 g/dl (13.0-16.5); Mean Corp Hgb Conc 28.4 g/gl (32-36); Mean Corpuscular Hgb 24.4 pg (27.0-32.0); Mean Corpuscular Volume 85.8 fL (80-94); Mean Platelet Vol. 9.2 fl (6.2-12.0); Platelet Count 294 K/mm3 (150-450); RBC Distribution Width CV 15.2 % (11.6-14.6); RBC Distribution Width SD 45.6 fl (35.1-43.9); Red Blood Count 3.24 M/mm3 (4.6-6.2); White Blood Count 7.1 K/mm3 (4.4-11.0)
[2018-05-17 06:42] LABS: Scan Indicated on CBC? Y/N NO
[2018-05-17 06:55] LABS: Anion Gap 4 (5-15); BUN 38 mg/dL (7-18); BUN/Creat Ratio 28.8 RATIO (10-20); Calcium,Total 8.4 mg/dL (8.5-10.1); Chloride 89 mmol/L (98-107); Creatinine, Serum 1.32 mg/dL (0.70-1.30); EST Glomerular Filtration Rate 56 mL/min (>60); Est Glom Filt Rate - Afr Amer 68 mL/min (>60); Estimated Creatinine Clearance 46.78 ml/min; Glucose 114 mg/dL (74-106); Magnesium 2.9 mg/dL (1.6-2.6); Potassium 4.4 mmol/L (3.5-5.1); Sodium Level 133 mmol/L (136-145)
[2018-05-17] MEDS: Ipratropium/Albuterol Sulfate 3 ML AMPUL.NEB INHALATION ×2 (07:31→13:10)
[2018-05-17] MEDS: Furosemide 40 MG/4 ML Vial IV (09:10)
[2018-05-17] MEDS: Magnesium Oxide 400 MG Tablet PO (09:10)
[2018-05-17] MEDS: Clopidogrel Bisulfate 75 MG Tablet PO (09:10)
[2018-05-17] MEDS: Spironolactone 25 MG Tablet PO (09:11)
[2018-05-17] MEDS: Allopurinol 300 MG Tablet PO (09:11)
[2018-05-17] MEDS: busPIRone 5 MG Tablet 10 MG PO (09:11)
[2018-05-17] MEDS: Metoprolol Tartrate 50 MG Tablet PO (09:12)
[2018-05-17] MEDS: Pantoprazole Sodium 20 MG Tablet PO (09:14)
[2018-05-17] MEDS: OLANZapine 2.5 MG Tablet PO (09:15)
[2018-05-17] MEDS: Azithromycin 250 MG Tablet 500 MG PO (09:15)
[2018-05-17] MEDS: Metolazone 2.5 MG Tablet PO (09:15)
[2018-05-17] MEDS: Magnesium Hydroxide 30 ML UDC PO (09:17)
[2018-05-17] MEDS: 0.9% NaCl Peripheral Flush Adult/Peds IV (09:20)
[2018-05-17] MEDS: Finasteride 5 MG Tablet PO (11:21)
[2018-05-17] MEDS: guaiFENesin 1,200 MG Tablet 1200 MG PO (11:21)
[2018-05-17] MEDS: Ferrous Sulfate 325 MG Tablet PO (11:21)
[2018-05-17 11:25] LABS: Bedside Glucose 112 mg/dL (70-110)
[2018-05-17 11:36] LABS: Bedside Glucose 148 mg/dL (70-110)
--- NOTE | 2018-05-17 12:51 | DCINST_ITS ---
- Discharge Diagnoses Current Active Problems: Current Active and Chronic Problems (Last Updated 05/13/18 @ 14:31 by Varun Aguilar DO) Shortness of breath (Acute) You will use the following diet at home:: Calorie/Carbohydrate Controlled (specify 1200, 1400, etc) - 1800 calories/day, Fluid restricted (specify 2000 m ls, 1500 mls) - 1500 cc/day Your food should be the consistency of: Regular Your liquids should be the consistency of: Regular/Thin Discharge Activity: Return to Normal Activity Call your doctor if you observe: Shortness of breath, Chest pain Additional Instructions: Daily weights. Keep record of weights. Notify physician of greater than 2 pound weight gain in 1 day or 3 pound weight gain in 1 week. Allergies/Adverse Reactions: Allergies naphazoline HCl [From Naphcon] Allergy (Severe, Verified 04/06/18 15:53) affected his breathing AFFECTED HIS BREATHING amlodipine besylate [From Norvasc] Allergy (Verified 04/06/18 15:53) Other dextromethorphan Allergy (Verified 04/06/18 15:53) Other levofloxacin [From Levaquin] Adverse Reaction (Mild, Verified 04/06/18 15:53) made me hyperactive made me hyperactive Medications to take at Discharge Allopurinol [Zyloprim] 300 mg PO DAILY 03/30/17 Clonidine Patch [Catapres-Tts3] 0.3 mg TOPICAL FR 03/30/17 Clopidogrel Bisulfate [Plavix] 75 mg PO DAILY 03/30/17 Finasteride [Proscar] 5 mg PO DAILY 03/30/17 Glimepiride [Amaryl] 8 mg PO BREAKFAST 03/30/17 Magnesium Oxide [Mag-Ox 400] 400 mg PO BID 03/30/17 Metoprolol Tartrate [Lopressor (beta maryam)] 50 mg PO BID 03/30/17 Multivitamins,Therapeutic [Multivitamin] 1 tab PO DAILY@0800 03/30/17 Sertraline HCl [Zoloft] 50 mg PO QHS 03/30/17 Docusate Sodium [Colace] 100 mg PO DAILY PRN PRN 12/09/17 Nystatin Powder [Mycostatin Powder] 1 applic TOPICAL BID PRN PRN 12/09/17 Olanzapine [Zyprexa] 2.5 mg PO DAILY 12/09/17 Ferrous Sulfate 325 mg PO BIDCM tab 12/14/17 acetaminophen 500 mg tablet 1,000 mg PO Q8H PRN PRN tab 12/29/17 tiotropium bromide 2.5 mcg/actuation mist for inhalation 2 puff INHALATION QDAY 12/29/17 budesonide-formoterol HFA 160 mcg-4.5 mcg/actuation aerosol inhaler 2 puff INHALATION BID 04/06/18 buspirone 10 mg tablet 10 mg PO BID 04/06/18 guaifenesin ER 1,200 mg tablet, extended release 12 hr 1,200 mg PO BID tab 04/06/18 insulin glargine (U-100) 100 unit/mL (3 mL) subcutaneous pen 30 unit PO BID ml 04/06/18 metformin 500 mg tablet 500 mg PO BID tab 04/06/18 metolazone 2.5 mg tablet 2.5 mg PO DAILY tab 04/06/18 fluticasone 500 mcg-salmeterol 50 mcg/dose blistr powdr for inhalation 1 inh INHALATION BID #60 ea 04/23/18 montelukast 10 mg tablet 10 mg PO QPM #30 tab 04/23/18 Atorvastatin Calcium [Lipitor] 40 mg PO QHS 05/13/18 Lansoprazole 15 mg PO DAILY 05/13/18 Loratadine 10 mg PO DAILY 05/13/18 Spironolactone 25 mg PO BID 05/13/18 Terazosin HCl 10 mg PO QHS 05/13/18 Furosemide [Lasix] 40 mg PO BIDLX #30 tablet 05/17/18 The following prescriptions were given: Furosemide [Lasix] 40 mg PO BIDLX #30 tablet Orders to be completed after discharge: Basic Metabolic Profile (BMP) Time Frame: 1 Week, Location: Laboratory Primary Care Physician: Jack Verdugo MD [Primary Care Provider] - Within 1 Week Test Results: Test results from this visit will be discussed in further detail at your follow- up appointment, if applicable. Please Follow Up With: [facility] When: 2-3 weeks Proposed Discharge Date: 05/17/18
--- NOTE | 2018-05-17 12:51 | PCM.DC.SUM ---
Discharge Date and Diagnosis - Problem List Patient Problems: Active and Suspected Problems (Last Updated 05/13/18 @ 14:31 by Varun Aguilar DO) Shortness of breath (Acute) Acute on chronic diastolic heart failure (Acute) Date of Admission: 05/13/18 Date of Discharge: 05/17/18 - Primary Discharge Diagnosis Active and Suspected Problems (Last Updated 05/13/18 @ 14:31 by Varun Aguilar DO) Shortness of breath (Acute) - Secondary Discharge Diagnosis Chronic Problems (Last Updated 05/13/18 @ 14:31 by Varun Aguilar DO) Chronic diastolic heart failure (Chronic) History of repair of thoracic aortic aneurysm (Chronic ~12/11/09) Thoracic aortic aneurysm without rupture (Chronic) Status post ascending and proximal arch aneurysm replaced with a Hemashield graft and shayan-arch repair; Venous stasis dermatitis (Chronic) Anemia (Chronic) Osteoarthritis (Chronic) Coronary artery disease (Chronic) Lymphedema (Chronic) Hyperlipidemia (Chronic) Super obesity (Chronic) Gout (Chronic) Depression (Chronic) Ulcer of right lower extremity with fat layer exposed (Chronic) Ulcer of left lower extremity with fat layer exposed (Chronic) Bilateral leg edema (Chronic) Tinea unguium (Chronic) Diabetes mellitus with neuropathy (Chronic) Delayed wound healing (Chronic) Open wound, lower leg (Chronic) CKD (chronic kidney disease), stage II (Chronic) Wheezing (Chronic) MIKO (obstructive sleep apnea) (Chronic) BiPAP 18/12 cm of water HTN (hypertension) (Chronic) BPH (benign prostatic hypertrophy) (Chronic) Tinea unguium (Chronic) Diabetes mellitus with neuropathy (Chronic) Edema of both legs (Chronic) Lymphedema of leg (Chronic) Multiple excoriations (Chronic) Asthma (Chronic) COPD (chronic obstructive pulmonary disease) (Chronic) FEV1 58% Arthritis (Chronic) Immobility (Chronic) Pulmonary embolism on right (Chronic) Adynamic ileus (Chronic) Ventral hernia (Chronic) Hypoglycemia (Chronic) Peripheral neuropathy (Chronic) Chronic anemia (Chronic) Benign prostatic hypertrophy without urinary obstruction (Chronic) CKD (chronic kidney disease), stage II (Chronic) CAD (coronary artery disease) (Chronic) Type II diabetes mellitus (Chronic) GERD (gastroesophageal reflux disease) (Chronic) Hypercholesteremia (Chronic) Morbid obesity (Chronic) Pulmonary hypertension (Chronic) H/O aortic valve replacement (Chronic ~12/11/09) # 29 Freestyle valve Venous insufficiency (Chronic) Hospital Course and Treatment Imaging Results: Clinical Impression(s) from Imaging Studies Chest X-Ray 05/13/18 11:31 IMPRESSION: CHF. Small bilateral pleural effusions right greater than left with bibasilar atelectasis worse on the right side. Cardiomegaly. Electronically Signed: Gba Ruth MD at 13:35 EST Tel [phone], Service support , Consultations 05/13/18 15:44 Consult: Onc/Wound/fisheries specialist Routine Comment: Operations: None Procedures: None Summary of Care Provided: The patient is a 73 year old M presents with shortness of breath through the previous day. Patient was found to be in CHF again. Patient was put on IV Lasix and diuresed well. Patient's initial weight was 68.1 kg. On discharge it was 153.1 kg. That appears to be around his lowest weight that we have on record here. Patient still does have some edema but does not this necessitate further inpatient management of this. Patient will be discharged with addition of Lasix in addition to his metolazone and spironolactone. Patient will have outpatient lab work to assess his CBC and BMP. Patient did test positive for iron deficiency anemia and this will need to be further evaluated as outpatient. Patient did receive a one-time dose of Venofer. Patient will continue with the ferrous sulfate 325 twice daily. Would recommend patient follow-up with gastroenterology if not done so already. [] Patient Problems: Active and Suspected Problems (Last Updated 05/13/18 @ 14:31 by Varun Aguilar DO) Shortness of breath (Acute) Acute on chronic diastolic heart failure (Acute) - Physical Exam General: Alert, Cooperative, No apparent distress, - - No respiratory distress HEENT: Atraumatic, Normocephalic Oral: Moist Mucosa, No Gingival or Mucosal Lesions/ Ulcerations Neck: No Nodes, Thyroid Normal Size and Texture Lungs: Clear to auscultation, Diminished Cardiovascular: Regular rate, Regular Rhythm, Normal S1, Normal S2 Abdomen: Obese Extremities: No Calf Tenderness, Edema Vital Signs Temp Pulse Resp BP Pulse Ox 36.6 C 68 18 148/70 H 98 05/17/18 09:07 05/17/18 12:37 05/17/18 09:07 05/17/18 09:12 05/17/18 09:07 Oxygen Flow Rate (L/min) 4 Oxygen Delivery Method Nasal Cannula Weight: 153.1 kg Body Mass Index (BMI) 55.0 Finger Stick Blood Glucose 132 Intake and Output for Last 24 Hours 05/15/18 05/16/18 05/17/18 23:59 23:59 23:59 Intake Total 1640 / 1640 1340 / 1340 200 / 200 Output Total 2800 / 2800 3475 / 3475 445 / 445 Balance -1160 / -1160 -2135 / -2135 -245 / -245 Microbiology Past 72 Hours 05/13/18 12:45 Urine Culture - Final Urine Catheter - Catheter Culture exhibits no growth. Laboratory Tests Past 24 Hrs 05/17/18 05/17/18 05:35 05:35 WBC 7.1 RBC 3.24 L Hgb 7.9 L Hct 27.8 L MCV 85.8 MCH 24.4 L MCHC 28.4 L RDW 15.2 H RDW Differential 45.6 H Plt Count 294 MPV 9.2 Sodium 133 L Potassium 4.4 Chloride 89 L Carbon Dioxide 40.0 H Anion Gap 4 L BUN 38 H Creatinine 1.32 H Estim Creat Clear Calc 46.78 Est GFR (MDRD) Af Amer 68 Est GFR (MDRD) Non-Af 56 L BUN/Creatinine Ratio 28.8 H Glucose 114 H Calcium 8.4 L Magnesium 2.9 H POC Glucose 05/17/18 05/17/18 05/16/18 11:20 08:04 21:25 POC Glucose 148 H 112 H 184 H Discharge Diet: No Restrictions Discharge Activity: Return to Normal Activity Call your doctor if you observe: Shortness of breath, Chest pain Home Medications: Medications to take at Discharge Allopurinol [Zyloprim] 300 mg PO DAILY 03/30/17 Clonidine Patch [Catapres-Tts3] 0.3 mg TOPICAL FR 03/30/17 Clopidogrel Bisulfate [Plavix] 75 mg PO DAILY 03/30/17 Finasteride [Proscar] 5 mg PO DAILY 03/30/17 Glimepiride [Amaryl] 8 mg PO BREAKFAST 03/30/17 Magnesium Oxide [Mag-Ox 400] 400 mg PO BID 11/06/17 Metoprolol Tartrate [Lopressor (beta maryam)] 50 mg PO BID 03/30/17 Multivitamins,Therapeutic [Multivitamin] 1 tab PO DAILY@0800 03/30/17 Sertraline HCl [Zoloft] 50 mg PO QHS 03/30/17 Docusate Sodium [Colace] 100 mg PO DAILY PRN PRN 12/09/17 Nystatin Powder [Mycostatin Powder] 1 applic TOPICAL BID PRN PRN 12/09/17 Olanzapine [Zyprexa] 2.5 mg PO DAILY 12/09/17 Ferrous Sulfate 325 mg PO BIDCM tab 12/14/17 acetaminophen 500 mg tablet 1,000 mg PO Q8H PRN PRN tab 12/29/17 tiotropium bromide 2.5 mcg/actuation mist for inhalation 2 puff INHALATION QDAY 12/29/17 budesonide-formoterol HFA 160 mcg-4.5 mcg/actuation aerosol inhaler 2 puff INHALATION BID 04/06/18 buspirone 10 mg tablet 10 mg PO BID 04/06/18 guaifenesin ER 1,200 mg tablet, extended release 12 hr 1,200 mg PO BID tab 04/06/18 insulin glargine (U-100) 100 unit/mL (3 mL) subcutaneous pen 30 unit PO BID ml 04/06/18 metformin 500 mg tablet 500 mg PO BID tab 04/06/18 metolazone 2.5 mg tablet 2.5 mg PO DAILY tab 04/06/18 fluticasone 500 mcg-salmeterol 50 mcg/dose blistr powdr for inhalation 1 inh INHALATION BID #60 ea 04/23/18 montelukast 10 mg tablet 10 mg PO QPM #30 tab 04/23/18 Atorvastatin Calcium [Lipitor] 40 mg PO QHS 05/13/18 Lansoprazole 15 mg PO DAILY 05/13/18 Loratadine 10 mg PO DAILY 05/13/18 Spironolactone 25 mg PO BID 05/13/18 Terazosin HCl 10 mg PO QHS 05/13/18 Furosemide [Lasix] 40 mg PO BIDLX #30 tablet 05/17/18 Following Prescrptions Were Given to Patient: Furosemide [Lasix] 40 mg PO BIDLX #30 tablet Other Amb Orders: Basic Metabolic Profile (BMP) Time Frame: 1 Week, Location: Laboratory Primary Care Physician: Jack Verdugo MD [Primary Care Provider] - Within 1 Week Please Follow Up With: [facility] When: 2-3 weeks Medical Necessity - Tobacco Use Smoking Status: Former smoker Tobacco Use: Cigarettes Meaningful Use Info Meaningful Use Diagnoses (Choose all that apply): CHF - CHF EM/ARB ordered at discharge?: Yes Documented LVEF (%): 60 Code Visit Inpatient E&M: 45296 Disch Hosp
--- NOTE | 2018-05-17 13:17 | CASEMGMT ---
COREY PEREZ Assessment. Intro role of CM to patient. Plan is for dc today. Pt plans to return home with [facility]. Pt states he has been homebound and will be on dc. COREY PEREZ called to Chika @ [facility]. They will attempt to schedule pt for . Pt states his will be able to assist with dressing changes. Call to Arti Jones wound nurse to assist with script for supplies pt will need. Rashida CAREY RN ACM.
--- NOTE | 2018-05-17 14:52 | CHAPLAIN ---
Type of Pastoral Visit _x__ Initial Visit ___ Follow-up Visit ___ On-call Visit ___ General Patient Visit ___ Spiritual Assessment ___ Family Conference ___ Bereavement ___ Rapid Response ___ Code Blue ___ Other (describe below) Pastoral Care Referral From _x__ Patient ___ Family ___ Nurse ___ Physician ___ Brake Repairer Bus ___ Data Communications Analyst ___ Other (describe below) Sacrament/Intervention _x__ Active listening ___ Anointing ___ Hinduism ___ Bereavement ___ Communion ___ Carli exploration ___ ___ Life review _x__ Prayer ___ Reconciliation ___ Sacrament of Sick _x__ Supportive presence ___ Wedding ___ Other (describe below) Pastoral Comments
--- NOTE | 2018-05-17 15:03 | NURSING ---
This RN taking over care of patient at this time.
--- NOTE | 2018-05-19 13:42 | CASEMGMT ---
COREY PEREZ DC Phone Call. DC Date: 05/17/18 DC Disposition: Home with [facility] LACE/STRATA: 07/09 Intro role of CM to patient's via phone. states pt is not compliant with homegoing instructions. She assists with dressing changes, and he handles his own medications. [facility] will be coming Thursday for start of care. No questions at this time re: dc instructions, f/u or medications. -Call to Chika @ [facility] to verify start of care will be Thursday and Chika will call to notify pt. Rashida CAREY RN ACM
== END 2018-05-17 17:30 | disposition home health service (06) | DRG 291 ==
LOC: ED 12:58 → PCU 14:48
PROVIDERS: Internal Medicine; Nurse Practitioner Family; Admitting Provider Internal Medicine; Emergency Provider Emergency Medicine; Family Provider Internal Medicine; PCP Internal Medicine
DX: I13.0 Hypertensive heart and chronic kidney disease with heart failure and stage 1 through stage 4 chronic kidney disease, or unspecified chronic kidney disease (principal); I50.33 Acute on chronic diastolic (congestive) heart failure; Z68.43 Body mass index [BMI] 50.0-59.9, adult; J96.11 Chronic respiratory failure with hypoxia; I87.2 Venous insufficiency (chronic) (peripheral); I25.10 Atherosclerotic heart disease of native coronary artery without angina pectoris; E78.5 Hyperlipidemia, unspecified; M19.90 Unspecified osteoarthritis, unspecified site; E11.40 Type 2 diabetes mellitus with diabetic neuropathy, unspecified; M10.9 Gout, unspecified; F32.9 Major depressive disorder, single episode, unspecified; D50.9 Iron deficiency anemia, unspecified; N18.2 Chronic kidney disease, stage 2 (mild); J44.9 Chronic obstructive pulmonary disease, unspecified; G47.33 Obstructive sleep apnea (adult) (pediatric); E11.22 Type 2 diabetes mellitus with diabetic chronic kidney disease; N40.0 Benign prostatic hyperplasia without lower urinary tract symptoms; E66.01 Morbid (severe) obesity due to excess calories; K21.9 Gastro-esophageal reflux disease without esophagitis; Z86.79 Personal history of other diseases of the circulatory system; Z87.891 Personal history of nicotine dependence; Z79.4 Long term (current) use of insulin; Z79.899 Other long term (current) drug therapy; Z99.81 Dependence on supplemental oxygen; Z95.3 Presence of xenogenic heart valve; E11.649 Type 2 diabetes mellitus with hypoglycemia without coma; I27.20 Pulmonary hypertension, unspecified
CPT/HCPCS: 36415; 36600; 51702; 71045; 80048; 81001; 82274; 82728; 82803; 82947; 82962; 83540; 83550; 83605; 83735; 83880; 84484; 85025; 85027; 86850; 86900; 86920; 86922; 87086; 93005; 94002; 94003; 94640; 97110; 97162; 97165; 97530; 97535; 97802; 99285; J1756; J7030; J7040; J7050; P9016; A4216; J1940

== ENCOUNTER 2018-06-15 08:59 | Inpatient (IN) | payer MEDICARE, BC, SELFPAY ==
[2018-05-13 15:45] VITALS: BMI 55.0
[2018-06-15] VITALS (19 sets, daily range): BP systolic 113–139; BP diastolic 47–64; PULSE 59–81; RESP 13–20; TEMP 35.7–37.2; O2SAT 96–100; BMI 56.3; BMI 50.9; BMI 51.2
--- NOTE | 2018-06-15 09:01 | CT_ITS ---
STUDY: CT BRAIN WITHOUT CONTRAST REASON FOR EXAM: Male, 73 years old. History of fall. RADIATION DOSAGE (If Supplied By Facility): CTDIvol = ( 60.81 ) mGy, DLP = ( 1135.50 ) mGycm TECHNIQUE: Transaxial CT imaging of the brain was performed without administration of intravenous contrast material. Individualized dose optimization techniques were used for this CT. COMPARISON: Comparison is made with prior study dated September 09, 2010. FINDINGS: Normal soft tissue structures. Normal calvarium. There is mild cerebral atrophy with widening of the extra-axial spaces and ventricular dilatation. Normal white matter tracts of the cerebral hemispheres. Old lacunar infarct in the right thalamus. Normal brainstem. Normal cerebellum. There is no intracranial hemorrhage. There are no findings of an acute ischemic infarction. Atherosclerotic calcification of the cavernous portions of the internal carotid arteries bilaterally. Atherosclerotic plaques of the vertebral arteries. Mucosal thickening of the ethmoid sinuses bilaterally. CT/Brain/Head without Contrast IMPRESSION: Chronic involutional changes of the brain. Old lacunar infarct in the right thalamus. Electronically Signed: Gab Ruth MD at 10:07 EST Tel [phone], Service support ,
--- NOTE | 2018-06-15 09:02 | EKG12_ITS ---
Test Reason : UNRESPONSIVE Blood Pressure : / mmHG Vent. Rate : 062 BPM Atrial Rate : 060 BPM P-R Int : 000 ms QRS Dur : 118 ms QT Int : 482 ms P-R-T Axes : 000 015 022 degrees QTc Int : 489 ms Sinus vs. ectopic atrial rhythm Non-specific intra-ventricular conduction delay Nonspecific ST abnormality Prolonged QT Abnormal ECG Confirmed by DOMITILA LOGAN, NAHOMI ([id number]), news videotape editor DANIELA GUTIÉRREZ ([id number]) on 06/16/2018 1:37:58 PM Referred By: GABRIELLA Confirmed By:NAHOMI RAMESH MD
[2018-06-15] MEDS: Dextrose 50%-Water 25 GM/50 ML DISP.SYRIN IV ×2 (09:11→12:05)
[2018-06-15 09:22] LABS: Absolute Lymphocyte Count 0.73 X10^3/ul (0.83-4.51); Absolute Neutrophil Count 3.6 X10^3/uL (2.0-7.7); Basophil# 0.02 X10^3/uL; Basophil% 0.4 % (0-1); Eosinophil# 0.19 X10^3/uL; Eosinophils% 3.8 % (0-5); Hematocrit 22.9 % (40-54); Lymphocyte # 0.73 X10^3/ul (4.0); Lymphocyte % 14.5 % (19-41); Mean Corp Hgb Conc 30.6 g/gl (32-36); Mean Corpuscular Hgb 24.7 pg (27.0-32.0); Mean Corpuscular Volume 80.9 fL (80-94); Monocyte# 0.47 X10^3/uL; Monocyte% 9.3 % (0-10); Neutrophil # 3.61 X10^3/uL (2.7-7.7); Neutrophil % 71.4 % (47-70); POSITIVE COUNT NO; POSITIVE DIFFERENTIAL NO; POSITIVE MORPHOLOGY NO; Platelet Count 212 K/mm3 (150-450); RBC Distribution Width CV 17.1 % (11.6-14.6); RBC Distribution Width SD 50.8 fl (35.1-43.9); Red Blood Count 2.83 M/mm3 (4.6-6.2); White Blood Count 5.1 K/mm3 (4.4-11.0)
[2018-06-15 09:26] LABS: Allen Test POS; Base Excess 5 mmol/L (-2 to +2); Bicarbonate 31.2 mmol/L (22-26); Blood Gas Specimen Type ART; O2 Delivery Device NRB Mask; PO2 219 mmHG (75-100); SITE OTHER; SO2 100 % (95-99); Time Given 919; Total Carbon Dioxide 33 mmol/L; pCO2 57.2 mmHg (35-45); pH 7.35 (7.35-7.45)
--- NOTE | 2018-06-15 09:26 | ED.DCSUM_ITS ---
- ER Visit Summary Date of Service: 06/15/18 Chief Complaint: Patient arrived by ambulance from home with complaint of altered mental status and low blood sugar History of Present Illness: The patient is a 73 M who was last seen well last evening. He was sitting in a lift chair in the living room. He was seen last evening in the same chair by his . This morning she attempted to speak with him. His speech was garbled and paramedics report she was not able to understand or follow what he was saying. He fell forward onto his face. Upon their arrival he was cyanotic and with depressed respiratory rate. Squad was unable to establish IV. They administered glucagon. Initial blood sugar was in the 40s. First blood sugar in the emergency department was 62. History is limited to what is documented. Physical Examination: Vital signs noted. He is hypothermic. He has multiple bruises noted. Gaze is disconjugate. Pupils are 2-3 mm. There is no subconjunctival hemorrhage. There is no hemotympanum. There is no septal deviation hematoma. Trachea is midline. Heart sounds are distant. Lungs are remarkable for decreased breath sounds with decreased air movement. Exam is limited. Abdomen is distended tympanitic with decreased bowel sounds. He is not alert. Unable to determine his orientation. He attempts to speak when asked questions. He will move all his extremities when asked to. He withdraws with Babinski testing. Test Results: EKG reveals a sinus rhythm rate of 62. Computer read junctional, which in my opinion is incorrect. There is a nonsignificant intraventricular conduction delay with a QRS duration of 118 ms. QT interval is prolonged. [place] is normal. CT of the head interpreted radiologist as no acute process. There is a 6 subcutaneous left forehead hematoma that was not noted in the impression of the radiologist report. Hemoglobin 7.0 with hematocrit of 22.9. Electric panels marked for sodium 129 and chloride of 91. Glucose is 67. BUN and creatinine are 37 and 1.46. First troponin is normal. Emergency Department Course and Treatment: Point of care blood sugar was 62. IV was ordered and 1 amp of D50. If nursing staff unable to establish IV will place IO. CT of the head was ordered to evaluate for stroke hemorrhagic versus ischemic and to rule out traumatic brain injury. In light of his multiple medical problems EKG, chest x-ray and appropriate blood work including ABG since there is a history of CO2 retention. Treatment Plan: Maria De Jesus called and he states he been picking at his skin and had significant blood loss. Apparently this is occurred in the past and he became anemic. This may have contributed to his fall. Patient was reassessed at 1030. He is still not oriented to time. Therefore will page hospitalist for 23-hour observation and continue to follow blood sugar and hemoglobin. Disposition: 23 observation progressive care unit Impression: 1. Acute change in mental status 2. Hypoglycemia and type II diabetic 3. Hyponatremia 4. Pre-renal azotemia with end-stage renal disease 5. Anemia, hemoglobin 7.0 6. Forehead contusion 7. Chronic respiratory failure with hypercapnia and hypoxia 8. History of obstructive sleep apnea This note was generated with [employer] dictation software. It may contain incorrect words, spelling, and punctuation that were not noted in review of the chart prior to signing ED Disposition - Plan for ED Patient: Chief Complaint: Hypoglycemia Referrals: Jack Verdugo MD [Primary Care Provider] -
[2018-06-15 09:29] LABS: International Normalized Ratio 1.1; Prothrombin Time (Protime)PT. 13.8 SECONDS (11.7-14.9)
[2018-06-15 09:30] LABS: Partial Thromboplast Time 33.2 Seconds (24.1-36.2)
[2018-06-15 09:34] LABS: Anion Gap 6 (5-15); BUN 39 mg/dL (7-18); BUN/Creat Ratio 26.7 RATIO (10-20); Calcium,Total 8.4 mg/dL (8.5-10.1); Chloride 91 mmol/L (98-107); Creatinine, Serum 1.46 mg/dL (0.70-1.30); EST Glomerular Filtration Rate 50 mL/min (>60); Est Glom Filt Rate - Afr Amer 61 mL/min (>60); Estimated Creatinine Clearance 42.29 ml/min; Glucose 67 mg/dL (74-106); Potassium 4.7 mmol/L (3.5-5.1); Sodium Level 129 mmol/L (136-145)
--- NOTE | 2018-06-15 09:45 | ED.RN ---
ARRIVED TO ER WITH MINIMAL RESPONSIVENESS. FBS 62. GIVEN D50 PER ORDERS. NOW RESPONSIVE, CONVERSATIONAL/APPROPRIATE. DOES NOT REMEMBER EVENTS OF TODAY. STS HAS BEEN FEELING SOB LATELY, BUT WHEN ASKED HOW LONG HE HAS BEEN FEELING THIS WAY, PT STS THIS IS NORMAL.
[2018-06-15 10:44] LABS: Lactic Acid 0.7 mmol/L (0.4-2.0)
--- NOTE | 2018-06-15 10:54 | HP.PCM_ITS ---
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 Patient ronny turner sleeps in a recliner. He was found to be difficult to arouse this morning. Patient somehow responded later, but fell down hitting the forehead. The called the squad. It was found to respond with sounds but not oriented. Blood sugar was 42, giving glucagon as IV access was difficult. Emergency department, his temperature is 96.3 F, heart rate 59, blood pressure 139/51, respiratory rate is 18, SPO2 was 100% on 3L. RBC count is 5.1, hemoglobin 7.0, INR is 1.1, sodium is 129, potassium 4.7, chloride 91, bicarbonate 32, BUN 39, creatinine 1.46, calcium 0.7, initial troponin 0.015. CT of the head showed chronic involuntary changes of the brain, old lacunar infarct in the right thalamus Past Medical History Past Medical History (Chronic Problems): Chronic Problems (Last Updated 05/17/18 @ 12:51 by Cristobal Robles DO) Chronic diastolic heart failure (Chronic) History of repair of thoracic aortic aneurysm (Chronic ~12/11/09) Thoracic aortic aneurysm without rupture (Chronic) Status post ascending and proximal arch aneurysm replaced with a Hemashield graft and shayan-arch repair; Venous stasis dermatitis (Chronic) Anemia (Chronic) Osteoarthritis (Chronic) Coronary artery disease (Chronic) Lymphedema (Chronic) Hyperlipidemia (Chronic) Super obesity (Chronic) Gout (Chronic) Depression (Chronic) Ulcer of right lower extremity with fat layer exposed (Chronic) Ulcer of left lower extremity with fat layer exposed (Chronic) Bilateral leg edema (Chronic) Tinea unguium (Chronic) Diabetes mellitus with neuropathy (Chronic) Delayed wound healing (Chronic) Open wound, lower leg (Chronic) CKD (chronic kidney disease), stage II (Chronic) Wheezing (Chronic) MIKO (obstructive sleep apnea) (Chronic) BiPAP 18/12 cm of water HTN (hypertension) (Chronic) BPH (benign prostatic hypertrophy) (Chronic) Tinea unguium (Chronic) Diabetes mellitus with neuropathy (Chronic) Edema of both legs (Chronic) Lymphedema of leg (Chronic) Multiple excoriations (Chronic) Asthma (Chronic) COPD (chronic obstructive pulmonary disease) (Chronic) FEV1 58% Arthritis (Chronic) Immobility (Chronic) Pulmonary embolism on right (Chronic) Adynamic ileus (Chronic) Ventral hernia (Chronic) Hypoglycemia (Chronic) Peripheral neuropathy (Chronic) Chronic anemia (Chronic) Benign prostatic hypertrophy without urinary obstruction (Chronic) CKD (chronic kidney disease), stage II (Chronic) CAD (coronary artery disease) (Chronic) Type II diabetes mellitus (Chronic) GERD (gastroesophageal reflux disease) (Chronic) Hypercholesteremia (Chronic) Morbid obesity (Chronic) Pulmonary hypertension (Chronic) H/O aortic valve replacement (Chronic ~12/11/09) # 29 Freestyle valve Venous insufficiency (Chronic) Medical History: Medical History (Last Updated 05/17/18 @ 12:51 by Cristobal Robles DO) Thoracic aortic aneurysm without rupture (Chronic) I71.2 Status post ascending and proximal arch aneurysm replaced with a Hemashield graft and shayan-arch repair; Acute on chronic diastolic heart failure (Acute) I50.33 Anemia (Chronic) D64.9 Coronary artery disease (Chronic) I25.10 Hyperlipidemia (Chronic) E78.5 Super obesity (Chronic) E66.9 Bilateral leg edema (Chronic) R60.0 Diabetes mellitus with neuropathy (Chronic) E11.40 Acute on chronic respiratory failure with hypoxia and hypercapnia (Acute) J96.21, J96.22 CKD (chronic kidney disease), stage II (Chronic) N18.2 Wheezing (Chronic) R06.2 Dyspnea (Acute) R06.00 MIKO (obstructive sleep apnea) (Chronic) G47.33 BiPAP 18/12 cm of water HTN (hypertension) (Chronic) I10 Tobacco abuse (Resolved) Z72.0 BPH (benign prostatic hypertrophy) (Chronic) N40.0 Tinea unguium (Chronic) B35.1 Diabetes mellitus with neuropathy (Chronic) E11.40 Edema of both legs (Chronic) R60.0 Lymphedema of leg (Chronic) I89.0 Multiple excoriations (Chronic) T14.8 Asthma (Chronic) J45.909 COPD (chronic obstructive pulmonary disease) (Chronic) J44.9 FEV1 58% Arthritis (Chronic) M19.90 Immobility (Chronic) Z74.09 Pulmonary embolism on right (Chronic) I26.99 CAP (community acquired pneumonia) (Resolved) J18.9 The patient appropriately completed antibiotics and prednisone as prescribed. He has no further signs and symptoms of persistent pneumonia. No indication for any further testing at this time. Patient will be eligible for Pneumovax 23 in approximately 6 months. He states that his PCP is very good at keeping track of his immunizations and when they are due. Adynamic ileus (Chronic) K56.0 Ventral hernia (Chronic) K43.9 Hypoglycemia (Chronic) E16.2 Peripheral neuropathy (Chronic) G62.9 Chronic anemia (Chronic) D64.9 Benign prostatic hypertrophy without urinary obstruction (Chronic) N40.0 CKD (chronic kidney disease), stage II (Chronic) N18.2 CAD (coronary artery disease) (Chronic) I25.10 Type II diabetes mellitus (Chronic) E11.9 GERD (gastroesophageal reflux disease) (Chronic) K21.9 Hypercholesteremia (Chronic) E78.00 Morbid obesity (Chronic) E66.01 Pulmonary hypertension (Chronic) I27.2 Venous insufficiency (Chronic) CHF exacerbation (Resolved) I50.9 Leg swelling (Inactive) M79.89 Nausea and vomiting (Inactive) R11.2 Tinea unguium (Inactive) B35.1 Allergies naphazoline HCl [From Naphcon] Allergy (Severe, Verified 06/15/18 10:25) affected his breathing AFFECTED HIS BREATHING amlodipine besylate [From Norvasc] Allergy (Verified 06/15/18 10:25) Other dextromethorphan Allergy (Verified 06/15/18 10:25) Other levofloxacin [From Levaquin] Adverse Reaction (Mild, Verified 06/15/18 10:25) made me hyperactive made me hyperactive Home Medications: Ambulatory Orders Medication Instructions Recorded Albuterol Inhaler [Ventolin Hfa 2 puff INHALATION Q6H PRN PRN 06/15/18 (SP)] Allopurinol [Zyloprim] 300 mg PO DAILY 06/15/18 Atorvastatin Calcium [Lipitor] 40 mg PO QHS 06/15/18 Budesonide/Formoterol 160/4.5 2 puff INHALATION BID 06/15/18 [Symbicort 160/4.5 Mcg Inhaler (SP)] Clonidine Patch [Catapres-Tts3] 0.3 mg TRANSDERM. Q7D 06/15/18 Clopidogrel Bisulfate [Plavix] 75 mg PO DAILY 06/15/18 Ferrous Sulfate 325 mg PO DAILY 06/15/18 Finasteride [Proscar] 5 mg PO DAILY 06/15/18 Fluticasone/Salmeterol [Advair 1 each IH BID 06/15/18 500-50 Diskus] Furosemide [Lasix] 80 mg PO DAILY 06/15/18 Glimepiride [Amaryl] 8 mg PO DAILY 06/15/18 Insulin Glargine,Hum.rec.anlog 30 unit SQ BID 06/15/18 [Basaglar Ailyniknaheed U-100] Ipratropium/Albuterol Sulfate 3 ml INHALATION Q4H.RT 06/15/18 [Duoneb] Lansoprazole [Prevacid] 15 mg PO DAILY 06/15/18 Loratadine [Claritin] 10 mg PO DAILY 06/15/18 Losartan Potassium [Cozaar] 100 mg PO DAILY 06/15/18 Magnesium 250 mg PO BID 06/15/18 Metolazone [Zaroxolyn] 2.5 mg PO DAILY 06/15/18 Metoprolol Tartrate [Lopressor 50 mg PO BID 06/15/18 (Beta Kristel)] Multivitamin,Therapeutic [Thera] 1 each PO DAILY 06/15/18 Nutritional Supplement [Rafael - 1 packet PO BIDCM 06/15/18 [place] FLAVOR] Polyethylene Glycol 3350 [Miralax] 17 gm PO DAILY 06/15/18 Sertraline HCl [Zoloft] 100 mg PO DAILY 06/15/18 Spironolactone [Aldactone] 25 mg PO BID 06/15/18 Terazosin HCl [Hytrin] 10 mg PO QHS 06/15/18 Surgical History: Surgical History (Last Reviewed 04/06/18 @ 15:54 by Brynn Avila) History of repair of thoracic aortic aneurysm (Chronic) Onset Date: ~12/11/09 Z98.890, Z86.79 H/O aortic valve replacement (Chronic) Onset Date: ~12/11/09 Z95.2 # 29 Freestyle valve H/O hernia repair Z98.890, Z87.19 Surgical History: - - He has a bioprosthetic aortic valve replacement, abdominal aortic aneurysm repair '05, recent surgery to repair a large ventral hernia. Psychiatric History: Anxiety, Depression Lives: Spouse/ Significant Other Smoking Status: Former smoker Tobacco Use: Non-smoker Alcohol: None Drugs: None - *Family History Maternal Family History: Family History (Last Reviewed 04/06/18 @ 15:54 by Brynn Avila) Brother TBI (traumatic brain injury) Sister Ulcerative colitis History Items: Hypertension, - - Patient's father at the age of 94 from old age. Patient's mother at age of 87 with a history of hyperlipidemia and hypertension. Paternal Family History: Family History (Last Reviewed 04/06/18 @ 15:54 by Brynn Avila) Brother TBI (traumatic brain injury) Sister Ulcerative colitis History Items: Hypertension Review of Systems Constitutional: Reports: Anorexia. Denies: Chills, Fever, Weakness, Weight Change Eyes: Denies: Blurred vision, Cataracts, Conjunctivae Inflammation, Pain, Redness HEENT: Denies: Difficulty Hearing, Difficulty Swallowing, Head Aches, Hearing Changes, Sinus Congestion, Sinus Drainage, Sore Throat Cardiovascular: Denies: Chest Pain, Claudication, Light Headedness, Orthopnea, Palpitations, Paroxysmal Noc. Dyspnea Respiratory: Denies: Cough, Shortness of Breath, Shortness of breath at rest, Shortness of breath upon exertion, Sputum production Gastrointestinal: Denies: Abdominal Pain, Constipation, Nausea, Vomiting Genitourinary: Denies: Dysuria, Frequency Musculoskeletal: Denies: Joint Pain, Joint stiffness, Joint swelling, Joint Tenderness Skin: Denies: Rash, Wounds Neurological: Reports: Confusion. Denies: Difficulty swallowing, Focal weakness, Numbness, Tingling Psychiatric: Denies: Anxiety, Depression, Homicidal Ideations, Suicidal Ideations Hematologic/ Lymphatic: Denies: Easy Bruising, Easy Bleeding VTE Information - Inpt Only VTE Present on Admission: No VTE Pharm Prophylaxis ordered?: Yes Patient Problems: Active and Suspected Problems (Last Updated 05/17/18 @ 12:51 by ROSANA Mullen Hypoglycemia (Acute) - Physical Exam General: Alert, Oriented x3, Cooperative, No apparent distress, - - on 3L oxygen HEENT: Atraumatic, PERRLA, EOMI, Normocephalic Oral: Moist Mucosa Neck: Supple, No JVD, Negative Carotid Bruits Lungs: Clear to auscultation, Normal air movement Cardiovascular: Regular rate, Regular Rhythm, Normal S1, Normal S2, No murmurs Abdomen: Bowel Sounds Present, Soft, Non Tender, Non-Distended, No Hepato- splenomegaly Extremities: Edema - bipedal +2 Skin: No rashes Musculoskeletal: No Tenderness to Palpation of Joints or Extremities Lymphatic: No Cervical, Supraclavicular, or Inguinal Adenopathy Neurological: Cranial nerves II-XII grossly intact, Neuro grossly intact Psych/Mental Status: Normal Affect, Appropriate Vital Signs Temp Pulse Resp BP Pulse Ox 96.3 F L 60 14 135/58 H 100 06/15/18 09:04 06/15/18 10:51 06/15/18 10:51 06/15/18 10:51 06/15/18 10:51 Oxygen Flow Rate (L/min) 15 Oxygen Delivery Method Non-Rebreather Weight: 151.953 kg Body Mass Index (BMI) 50.9 Finger Stick Blood Glucose 171 Laboratory Tests Past 24 Hrs 06/15/18 06/15/18 06/15/18 09:10 09:10 09:10 WBC 5.1 RBC 2.83 L Hgb 7.0 L Hct 22.9 L MCV 80.9 MCH 24.7 L MCHC 30.6 L RDW 17.1 H RDW Differential 50.8 H Plt Count 212 MPV 8.0 Immature Gran % (Auto) 0.600 Neut % (Auto) 71.4 H Lymph % (Auto) 14.5 L [place] % (Auto) 9.3 Eos % (Auto) 3.8 Baso % (Auto) 0.4 Absolute Neuts (auto) 3.6 Absolute Lymphs (auto) 0.73 L Total Counted Not Reportable PT 13.8 INR 1.1 APTT 33.2 Specimen Type Sample Site pH Bicarbonate Actual POC Total CO2 Base Excess O2 Saturation ABG pCO2 ABG pO2 Hilario Test O2 Delivery Device Liter Flow Blood Gas Notified Whom Blood Gas Notified Time Sodium 129 L Potassium 4.7 Chloride 91 L Carbon Dioxide 32.0 Anion Gap 6 BUN 39 H Creatinine 1.46 H Estim Creat Clear Calc 42.29 Est GFR (MDRD) Af Amer 61 Est GFR (MDRD) Non-Af 50 L BUN/Creatinine Ratio 26.7 H Glucose 67 L Lactic Acid Calcium 8.4 L Troponin I < 0.015 06/15/18 06/15/18 09:20 10:10 WBC RBC Hgb Hct MCV MCH MCHC RDW RDW Differential Plt Count MPV Immature Gran % (Auto) Neut % (Auto) Lymph % (Auto) [place] % (Auto) Eos % (Auto) Baso % (Auto) Absolute Neuts (auto) Absolute Lymphs (auto) Total Counted PT INR APTT Specimen Type ART Sample Site OTHER pH 7.35 Bicarbonate Actual 31.2 H POC Total CO2 33 Base Excess 5 H O2 Saturation 100 H ABG pCO2 57.2 H ABG pO2 219 H Hilario Test POS O2 Delivery Device NRB Mask Liter Flow 15.0 Blood Gas Notified Whom ED MD Blood Gas Notified Time 919 Sodium Potassium Chloride Carbon Dioxide Anion Gap BUN Creatinine Estim Creat Clear Calc Est GFR (MDRD) Af Amer Est GFR (MDRD) Non-Af BUN/Creatinine Ratio Glucose Lactic Acid 0.7 Calcium Troponin I Assessment/Plan All Active Problems (Last Updated 05/17/18 @ 12:51 by Cristobal Robles DO) Hypoglycemia (Acute) Shortness of breath (Acute) Acute on chronic diastolic heart failure (Acute) Acute on chronic respiratory failure with hypoxia and hypercapnia (Acute) Dyspnea (Acute) Tobacco abuse (Resolved) CAP (community acquired pneumonia) (Resolved) Bilateral lower leg cellulitis (Resolved) CHF exacerbation (Resolved) Hyperkalemia (Resolved) Hypomagnesemia (Resolved) Hyponatremia (Resolved) 73 year old M with multiple co-morbidities with MIKO on cpap, chronic respiratory failure, on 3L oxygen, hypertension, type II DM, chronic diastolic CHF, chronic anemia who lives at home with his . 1. Altered mental status/acute metabolic encephalopathy secondary hypoglycemia, resolved, patient is back to his baseline at time of exam. 2. Hypoglycemia, in a known type 2 DM, on insulin and Amaryl, hold the above medications, Accu-Cheks every 6, D5 normal saline, may resume Lantus later on, check HbA1c. 3. Acute on chronic anemia, history of iron deficiency, was due to have colonoscopy with Dr. Garcia, patient has not gone back, transfuse 1 unit of packed RBC, follow-up in am 4. Hyponatremia, hypovolemic, will recheck labs in am 5. Dehydration with elevation in creatinine, baseline between 1.2-1.3, admitted with creatinine 1.46, will hydrate gently, labs in a.m. 6. Chronic diastolic CHF, no signs of acute exacerbation now, monitor for any insidious CHF exacerbation, daily weight, CHF protocol 7. Morbid obesity, BMI 51.2, 8. Acute on chronic wounds, chronic venous ulcers, patient apparently has been picking on his wounds, recommended to stop, wound consult 9. Hypertension, controlled, continue on home BP regimen, monitor vitals closely 10. DVT PPx- SCDs for now- recent bleeding from wounds, will start on heparin from tomorrow if he appears stable. Code Visit OBSV E&M: 33624 Initial observation care L3
[2018-06-15 11:25] LABS: Bedside Glucose 171 mg/dL (70-110)
--- NOTE | 2018-06-15 11:29 | ED.RN ---
RITCHIE EMPTIED FOR 800 ML CLEAR YELLOW URINE.
[2018-06-15] MEDS: Dextrose 5%/0.9% NaCl 1,000 ML 75 ML IV (12:15)
[2018-06-15 13:01] LABS: Bedside Glucose 94 mg/dL (70-110)
[2018-06-15 13:05] LABS: Bedside Glucose 62 mg/dL (70-110)
[2018-06-15] MEDS: Ipratropium/Albuterol Sulfate 3 ML AMPUL.NEB INHALATION ×3 (13:41→23:15)
--- NOTE | 2018-06-15 14:46 | NURSING ---
wound photo: left lower leg
--- NOTE | 2018-06-15 14:47 | NURSING ---
wound photo: right lower leg
[2018-06-15 16:51] LABS: Bedside Glucose 119 mg/dL (70-110)
[2018-06-15] MEDS: 0.9% NaCl Peripheral Flush Adult/Peds IV ×2 (19:08→22:22)
[2018-06-15] MEDS: Furosemide 40 MG/4 ML Vial IV ×2 (19:09→22:22)
[2018-06-15] MEDS: Budesonide Respules 0.5 MG/2 ML AMPUL.NEB. INHALATION (19:18)
[2018-06-15] MEDS: Acetaminophen 325 MG Tablet 650 MG PO (20:04)
[2018-06-15] MEDS: Metoprolol Tartrate 50 MG Tablet PO (22:21)
[2018-06-15] MEDS: Doxazosin 4 MG Tablet 8 MG PO (22:21)
[2018-06-15] MEDS: Spironolactone 25 MG Tablet PO (22:21)
[2018-06-15] MEDS: Atorvastatin Calcium 40 MG Tablet PO (22:22)
[2018-06-16] VITALS (24 sets, daily range): BP systolic 99–146; BP diastolic 40–59; PULSE 58–84; RESP 12–21; TEMP 36.8–37.4; O2SAT 95–99
[2018-06-16 00:31] LABS: Bedside Glucose 99 mg/dL (70-110)
[2018-06-16] MEDS: Acetaminophen 325 MG Tablet 650 MG PO ×2 (04:12→22:16)
[2018-06-16 06:30] LABS: Absolute Lymphocyte Count 0.72 X10^3/ul (0.83-4.51); Absolute Neutrophil Count 4.8 X10^3/uL (2.0-7.7); Basophil# 0.02 X10^3/uL; Basophil% 0.3 % (0-1); Eosinophil# 0.15 X10^3/uL; Eosinophils% 2.3 % (0-5); Hemoglobin 6.9 g/dl (13.0-16.5); Lymphocyte # 0.72 X10^3/ul (4.0); Lymphocyte % 11.3 % (19-41); Mean Corpuscular Hgb 24.8 pg (27.0-32.0); Mean Corpuscular Volume 82.7 fL (80-94); Mean Platelet Vol. 8.1 fl (6.2-12.0); Monocyte# 0.64 X10^3/uL; Neutrophil # 4.84 X10^3/uL (2.7-7.7); Neutrophil % 75.6 % (47-70); Platelet Count 271 K/mm3 (150-450); RBC Distribution Width CV 17.1 % (11.6-14.6); RBC Distribution Width SD 50.1 fl (35.1-43.9); Red Blood Count 2.78 M/mm3 (4.6-6.2); White Blood Count 6.4 K/mm3 (4.4-11.0)
[2018-06-16 06:38] LABS: POSITIVE COUNT NO; POSITIVE DIFFERENTIAL NO; POSITIVE MORPHOLOGY NO
[2018-06-16 06:47] LABS: Anion Gap 7 (5-15); BUN 44 mg/dL (7-18); BUN/Creat Ratio 31.2 RATIO (10-20); Calcium,Total 8.4 mg/dL (8.5-10.1); Chloride 93 mmol/L (98-107); Creatinine, Serum 1.41 mg/dL (0.70-1.30); EST Glomerular Filtration Rate 52 mL/min (>60); Est Glom Filt Rate - Afr Amer 63 mL/min (>60); Estimated Creatinine Clearance 43.79 ml/min; Glucose 104 mg/dL (74-106); Sodium Level 131 mmol/L (136-145)
[2018-06-16 07:11] LABS: Bedside Glucose 101 mg/dL (70-110)
[2018-06-16] MEDS: Multivitamins,Therapeutic Tablet 1 TABLET PO (07:35)
[2018-06-16] MEDS: Ferrous Sulfate 325 MG Tablet PO (07:35)
[2018-06-16] MEDS: Budesonide Respules 0.5 MG/2 ML AMPUL.NEB. INHALATION ×2 (07:37→19:52)
[2018-06-16] MEDS: Ipratropium/Albuterol Sulfate 3 ML AMPUL.NEB INHALATION ×5 (07:37→23:11)
[2018-06-16] MEDS: Loratadine 10 MG Tablet PO (09:20)
[2018-06-16] MEDS: Spironolactone 25 MG Tablet PO ×2 (09:20→22:17)
[2018-06-16] MEDS: Furosemide 40 MG/4 ML Vial IV ×2 (09:21→17:34)
[2018-06-16] MEDS: Polyethylene Glycol 3350 17 GM PACKET PO (09:23)
[2018-06-16] MEDS: Clopidogrel Bisulfate 75 MG Tablet PO (09:23)
[2018-06-16] MEDS: Pantoprazole Sodium 20 MG Tablet PO (09:24)
[2018-06-16] MEDS: Metolazone 2.5 MG Tablet PO (09:27)
[2018-06-16] MEDS: Sertraline 100 MG Tablet PO (09:28)
[2018-06-16] MEDS: Allopurinol 300 MG Tablet PO (09:28)
[2018-06-16] MEDS: Finasteride 5 MG Tablet PO (09:30)
[2018-06-16 11:36] LABS: Bedside Glucose 175 mg/dL (70-110)
--- NOTE | 2018-06-16 13:02 | CASEMGMT ---
Readmission chart review: See CM assessment from 05/14/19 completed by this RN CM. Pt was originally admitted 05/13/18-05/17/18 for Acute on Chronic Diastolic CHF. Pt was sent home with and still current with [facility] RN. Pt admitted again for AMS/hypoglycemia/possible syncope on 06/15/18. COREY PEREZ to follow PT/OT evals and for any further discharge planning/needs. Pt has been A/O since admitted from ED. Pt to get blood transfusion for HGB 6.9 this am and hopefully be discharged tomorrow. SStkatie RN CM
--- NOTE | 2018-06-16 13:12 | PCM.PN.HOSP ---
Patient Problems: Active and Suspected Problems (Last Updated 05/17/18 @ 12:51 by Cristobal Robles DO) Hypoglycemia (Acute) Subjective: And was seen and examined. No acute events overnight. Received 1 unit of packed RBC. Denied any chest pain or worsening shortness of breath. Blood sugars are improved. Objective: Physical Exam General: Alert, Oriented x3, Cooperative, No apparent distress, - - on 3L oxygen, morbidly obese HEENT: Atraumatic, PERRLA, EOMI, Normocephalic Oral: Moist Mucosa Neck: Supple, No JVD, Negative Carotid Bruits Lungs: Clear to auscultation, Normal air movement Cardiovascular: Regular rate, Regular Rhythm, Normal S1, Normal S2, No murmurs Abdomen: Bowel Sounds Present, Soft, Non Tender, Non-Distended, No Hepato-splenomegaly Extremities: Edema - bipedal +2 Skin: No rashes Musculoskeletal: No Tenderness to Palpation of Joints or Extremities Lymphatic: No Cervical, Supraclavicular, or Inguinal Adenopathy Neurological: Cranial nerves II-XII grossly intact, Neuro grossly intact Psych/Mental Status: Normal Affect, Appropriate Vitals/I&O's: Vital Signs Temp Pulse Resp BP Pulse Ox 99.3 F H 72 20 H 120/57 L 96 06/16/18 12:32 06/16/18 12:32 06/16/18 12:32 06/16/18 12:32 06/16/18 12:32 Oxygen Flow Rate (L/min) 2 Oxygen Delivery Method Nasal Cannula Weight: 153.9 kg Body Mass Index (BMI) 51.2 Finger Stick Blood Glucose 171 Intake and Output for Last 24 Hours 06/14/18 06/15/18 06/16/18 23:59 23:59 23:59 Intake Total 1333 / 1333 824 / 824 Output Total 4200 / 4200 1950 / 1950 Balance -2867 / -2867 -1126 / -1126 Laboratory Results 06/15/18 09:10: Hemoglobin A1c 6.0 06/15/18 10:55: Blood Type A POSITIVE, Antibody Screen NEGATIVE, Crossmatch See Detail 06/15/18 10:55: Crossmatch See Detail 06/15/18 16:42: POC Glucose 119 H 06/16/18 00:23: POC Glucose 99 06/16/18 06:05: Sodium 131 L, Potassium 5.0, Chloride 93 L, Carbon Dioxide 31.0, Anion Gap 7, BUN 44 H, Creatinine 1.41 H, Estim Creat Clear Calc 43.79, Est GFR (MDRD) Af Amer 63, Est GFR (MDRD) Non-Af 52 L, BUN/Creatinine Ratio 31.2 H, Glucose 104, Calcium 8.4 L 06/16/18 06:05: WBC 6.4, RBC 2.78 L, Hgb 6.9 L, Hct 23.0 L, MCV 82.7, MCH 24.8 L, MCHC 30.0 L, RDW 17.1 H, RDW Differential 50.1 H, Plt Count 271, MPV 8.1, Immature Gran % (Auto) 0.500, Neut % (Auto) 75.6 H, Lymph % (Auto) 11.3 L, [place] % (Auto) 10.0, Eos % (Auto) 2.3, Baso % (Auto) 0.3, Absolute Neuts (auto) 4.8, Absolute Lymphs (auto) 0.72 L, Total Counted Not Reportable 06/16/18 06:18: POC Glucose 101 06/16/18 11:24: POC Glucose 175 H Current Medications Acetaminophen (Tylenol) 650 mg PO Q6H PRN PRN PRN Reason: Mild Pain (1-3)/Temp > 100.7 F Last Admin: 06/16/18 04:12 Dose: 650 mg Albuterol/Ipratropium (Duoneb) 3 ml INHALATION Q4H.RT [facility] Last Admin: 06/16/18 11:20 Dose: 3 ml Allopurinol (Zyloprim) 300 mg PO DAILY [facility] Last Admin: 06/16/18 09:28 Dose: 300 mg Atorvastatin Calcium (Lipitor) 40 mg PO QHS [facility] Last Admin: 06/15/18 22:22 Dose: 40 mg Bisacodyl (Dulcolax) 5 mg PO DAILY PRN PRN PRN Reason: Constipation Budesonide (Pulmicort Aerosol) 0.5 mg INHALATION Q12H.RT [facility] Last Admin: 06/16/18 07:37 Dose: 0.5 mg Clonidine HCl (Catapres-Tts3) 0.3 mg TRANSDERM. Q7D [facility] Clopidogrel Bisulfate (Plavix) 75 mg PO DAILY [facility] Last Admin: 06/16/18 09:23 Dose: 75 mg Doxazosin Mesylate (Cardura) 8 mg PO QHS [facility] Last Admin: 06/15/18 22:21 Dose: 8 mg Ferrous Sulfate (Ferrous Sulfate) 325 mg PO DAILY@0800 [facility] Last Admin: 06/16/18 07:35 Dose: 325 mg Finasteride (Proscar) 5 mg PO DAILY [facility] Last Admin: 06/16/18 09:30 Dose: 5 mg Furosemide (Lasix) 40 mg IV BID@1000,1800 [facility] Last Admin: 06/16/18 09:21 Dose: 40 mg Glimepiride (Amaryl) 8 mg PO DAILY@0800 [facility] Last Admin: 06/16/18 07:32 Dose: Not Given Glucagon () 1 mg IM .X1 PRN PRN Reason: Hypoglycemia Loratadine (Claritin) 10 mg PO DAILY [facility] Last Admin: 06/16/18 09:20 Dose: 10 mg Losartan Potassium (Cozaar) 100 mg PO DAILY [facility] Last Admin: 06/16/18 09:22 Dose: Not Given Magnesium Hydroxide (Milk Of Magnesia) 30 ml PO DAILY PRN PRN Reason: Constipation Metolazone (Zaroxolyn) 2.5 mg PO DAILY [facility] Last Admin: 06/16/18 09:27 Dose: 2.5 mg Metoprolol Tartrate (Lopressor (Beta Kristel)) 50 mg PO BID [facility] Last Admin: 06/16/18 09:22 Dose: Not Given Multivitamins (Multivitamin) 1 tablet PO DAILY@0800 [facility] Last Admin: 06/16/18 07:35 Dose: 1 tablet Nutritional Formula (Rafael - [place] Flavor) 1 packet PO BIDCM [facility] Last Admin: 06/16/18 07:35 Dose: 1 packet Pantoprazole Sodium (Protonix) 20 mg PO DAILY [facility] Last Admin: 06/16/18 09:24 Dose: 20 mg Polyethylene Glycol (Miralax) 17 gm PO DAILY [facility] Last Admin: 06/16/18 09:23 Dose: 17 gm Psyllium Hydrophilic Mucilloid (Metamucil) 1 packet PO DAILY PRN PRN PRN Reason: CONSTIPATION Sertraline HCl (Zoloft) 100 mg PO DAILY [facility] Last Admin: 06/16/18 09:28 Dose: 100 mg Sodium Chloride () 5 - 15 ml IV UD PRN PRN Reason: SALINE FLUSH Last Admin: 06/15/18 22:22 Dose: 10 ml Spironolactone (Aldactone) 25 mg PO BID [facility] Last Admin: 06/16/18 09:20 Dose: 25 mg Medical Necessity - Tobacco Use Smoking Status: Former smoker Tobacco Use: Non-smoker Assessment/Plan All Active Problems (Last Updated 05/17/18 @ 12:51 by Cristobal Robles, ) Hypoglycemia (Acute) Shortness of breath (Acute) Acute on chronic diastolic heart failure (Acute) Acute on chronic respiratory failure with hypoxia and hypercapnia (Acute) Dyspnea (Acute) Tobacco abuse (Resolved) CAP (community acquired pneumonia) (Resolved) Bilateral lower leg cellulitis (Resolved) CHF exacerbation (Resolved) Hyperkalemia (Resolved) Hypomagnesemia (Resolved) Hyponatremia (Resolved) 73 year old M with multiple co-morbidities with MIKO on cpap, chronic respiratory failure, on 3L oxygen, hypertension, type II DM, chronic diastolic CHF, chronic anemia who lives at home with his . 1. Altered mental status/acute metabolic encephalopathy secondary hypoglycemia, resolved 2. Hypoglycemia, in a known type 2 DM, HgbA1c is 6.0, Insulin and Amaryl on hold, will continue to hold medications, will continue with accucheks and ISS. 3. Acute on chronic anemia, history of iron deficiency, Hgb is 6.9 today was due to have colonoscopy with Dr. Garcia, patient has not gone back, Will transfuse 1 more unit of packed RBC, making a total of 2 in this admission, follow-up in am 4. Hyponatremia, hypovolemic, slowly improving 5. Dehydration with elevation in creatinine, baseline between 1.2-1.3, admitted with creatinine 1.46, minimally improved to 1.41 today, will continue to trend 6. Chronic diastolic CHF, no signs of acute exacerbation now, monitor for any insidious CHF exacerbation, daily weight, CHF protocol 7. Morbid obesity, BMI 51.2, 8. Acute on chronic wounds, chronic venous ulcers, patient apparently has been picking on his wounds, recommended to stop, wound nurse consulted 9. Hypertension, controlled, continue on home BP regimen, monitor vitals closely 10. DVT PPx- SCDs for now- recent bleeding from wounds, will start on heparin from tomorrow if he appears stable. Code Visit Inpatient E&M: 61742 Subs Hosp L2
--- NOTE | 2018-06-16 13:19 | PN_ITS ---
Patient Problems: Active and Suspected Problems (Last Updated 05/17/18 @ 12:51 by Cristobal Robles DO) Hypoglycemia (Acute) Subjective: And was seen and examined. No acute events overnight. Received 1 unit of packed RBC. Denied any chest pain or worsening shortness of breath. Blood sugars are improved. Objective: Physical Exam General: Alert, Oriented x3, Cooperative, No apparent distress, - - on 3L oxygen, morbidly obese HEENT: Atraumatic, PERRLA, EOMI, Normocephalic Oral: Moist Mucosa Neck: Supple, No JVD, Negative Carotid Bruits Lungs: Clear to auscultation, Normal air movement Cardiovascular: Regular rate, Regular Rhythm, Normal S1, Normal S2, No murmurs Abdomen: Bowel Sounds Present, Soft, Non Tender, Non-Distended, No Hepato- splenomegaly Extremities: Edema - bipedal +2 Skin: No rashes Musculoskeletal: No Tenderness to Palpation of Joints or Extremities Lymphatic: No Cervical, Supraclavicular, or Inguinal Adenopathy Neurological: Cranial nerves II-XII grossly intact, Neuro grossly intact Psych/Mental Status: Normal Affect, Appropriate Vitals/I&O's: Vital Signs Temp Pulse Resp BP Pulse Ox 99.3 F H 72 20 H 120/57 L 96 06/16/18 12:32 06/16/18 12:32 06/16/18 12:32 06/16/18 12:32 06/16/18 12:32 Oxygen Flow Rate (L/min) 2 Oxygen Delivery Method Nasal Cannula Weight: 153.9 kg Body Mass Index (BMI) 51.2 Finger Stick Blood Glucose 171 Intake and Output for Last 24 Hours 06/14/18 06/15/18 06/16/18 23:59 23:59 23:59 Intake Total 1333 / 1333 824 / 824 Output Total 4200 / 4200 1950 / 1950 Balance -2867 / -2867 -1126 / -1126 Laboratory Results 06/15/18 09:10: Hemoglobin A1c 6.0 06/15/18 10:55: Blood Type A POSITIVE, Antibody Screen NEGATIVE, Crossmatch See Detail 06/15/18 10:55: Crossmatch See Detail 06/15/18 16:42: POC Glucose 119 H 06/16/18 00:23: POC Glucose 99 06/16/18 06:05: Sodium 131 L, Potassium 5.0, Chloride 93 L, Carbon Dioxide 31.0, Anion Gap 7, BUN 44 H, Creatinine 1.41 H, Estim Creat Clear Calc 43.79, Est GFR (MDRD) Af Amer 63, Est GFR (MDRD) Non-Af 52 L, BUN/Creatinine Ratio 31.2 H, Glucose 104, Calcium 8.4 L 06/16/18 06:05: WBC 6.4, RBC 2.78 L, Hgb 6.9 L, Hct 23.0 L, MCV 82.7, MCH 24.8 L , MCHC 30.0 L, RDW 17.1 H, RDW Differential 50.1 H, Plt Count 271, MPV 8.1, Immature Gran % (Auto) 0.500, Neut % (Auto) 75.6 H, Lymph % (Auto) 11.3 L, [place] % (Auto) 10.0, Eos % (Auto) 2.3, Baso % (Auto) 0.3, Absolute Neuts (auto) 4.8, Absolute Lymphs (auto) 0.72 L, Total Counted Not Reportable 06/16/18 06:18: POC Glucose 101 06/16/18 11:24: POC Glucose 175 H Current Medications Acetaminophen (Tylenol) 650 mg PO Q6H PRN PRN PRN Reason: Mild Pain (1-3)/Temp > 100.7 F Last Admin: 06/16/18 04:12 Dose: 650 mg Albuterol/Ipratropium (Duoneb) 3 ml INHALATION Q4H.RT [facility] Last Admin: 06/16/18 11:20 Dose: 3 ml Allopurinol (Zyloprim) 300 mg PO DAILY [facility] Last Admin: 06/16/18 09:28 Dose: 300 mg Atorvastatin Calcium (Lipitor) 40 mg PO QHS [facility] Last Admin: 06/15/18 22:22 Dose: 40 mg Bisacodyl (Dulcolax) 5 mg PO DAILY PRN PRN PRN Reason: Constipation Budesonide (Pulmicort Aerosol) 0.5 mg INHALATION Q12H.RT [facility] Last Admin: 06/16/18 07:37 Dose: 0.5 mg Clonidine HCl (Catapres-Tts3) 0.3 mg TRANSDERM. Q7D [facility] Clopidogrel Bisulfate (Plavix) 75 mg PO DAILY [facility] Last Admin: 06/16/18 09:23 Dose: 75 mg Doxazosin Mesylate (Cardura) 8 mg PO QHS [facility] Last Admin: 06/15/18 22:21 Dose: 8 mg Ferrous Sulfate (Ferrous Sulfate) 325 mg PO DAILY@0800 [facility] Last Admin: 06/16/18 07:35 Dose: 325 mg Finasteride (Proscar) 5 mg PO DAILY [facility] Last Admin: 06/16/18 09:30 Dose: 5 mg Furosemide (Lasix) 40 mg IV BID@1000,1800 [facility] Last Admin: 06/16/18 09:21 Dose: 40 mg Glimepiride (Amaryl) 8 mg PO DAILY@0800 [facility] Last Admin: 06/16/18 07:32 Dose: Not Given Glucagon () 1 mg IM .X1 PRN PRN Reason: Hypoglycemia Loratadine (Claritin) 10 mg PO DAILY [facility] Last Admin: 06/16/18 09:20 Dose: 10 mg Losartan Potassium (Cozaar) 100 mg PO DAILY [facility] Last Admin: 06/16/18 09:22 Dose: Not Given Magnesium Hydroxide (Milk Of Magnesia) 30 ml PO DAILY PRN PRN Reason: Constipation Metolazone (Zaroxolyn) 2.5 mg PO DAILY [facility] Last Admin: 06/16/18 09:27 Dose: 2.5 mg Metoprolol Tartrate (Lopressor (Beta Kristel)) 50 mg PO BID [facility] Last Admin: 06/16/18 09:22 Dose: Not Given Multivitamins (Multivitamin) 1 tablet PO DAILY@0800 [facility] Last Admin: 06/16/18 07:35 Dose: 1 tablet Nutritional Formula (Rafael - [place] Flavor) 1 packet PO BIDCM [facility] Last Admin: 06/16/18 07:35 Dose: 1 packet Pantoprazole Sodium (Protonix) 20 mg PO DAILY [facility] Last Admin: 06/16/18 09:24 Dose: 20 mg Polyethylene Glycol (Miralax) 17 gm PO DAILY [facility] Last Admin: 06/16/18 09:23 Dose: 17 gm Psyllium Hydrophilic Mucilloid (Metamucil) 1 packet PO DAILY PRN PRN PRN Reason: CONSTIPATION Sertraline HCl (Zoloft) 100 mg PO DAILY [facility] Last Admin: 06/16/18 09:28 Dose: 100 mg Sodium Chloride () 5 - 15 ml IV UD PRN PRN Reason: SALINE FLUSH Last Admin: 06/15/18 22:22 Dose: 10 ml Spironolactone (Aldactone) 25 mg PO BID [facility] Last Admin: 06/16/18 09:20 Dose: 25 mg Medical Necessity - Tobacco Use Smoking Status: Former smoker Tobacco Use: Non-smoker Assessment/Plan All Active Problems (Last Updated 05/17/18 @ 12:51 by Cristobal Robles, ) Hypoglycemia (Acute) Shortness of breath (Acute) Acute on chronic diastolic heart failure (Acute) Acute on chronic respiratory failure with hypoxia and hypercapnia (Acute) Dyspnea (Acute) Tobacco abuse (Resolved) CAP (community acquired pneumonia) (Resolved) Bilateral lower leg cellulitis (Resolved) CHF exacerbation (Resolved) Hyperkalemia (Resolved) Hypomagnesemia (Resolved) Hyponatremia (Resolved) 73 year old M with multiple co-morbidities with MIKO on cpap, chronic respiratory failure, on 3L oxygen, hypertension, type II DM, chronic diastolic CHF, chronic anemia who lives at home with his . 1. Altered mental status/acute metabolic encephalopathy secondary hypoglycemia, resolved 2. Hypoglycemia, in a known type 2 DM, HgbA1c is 6.0, Insulin and Amaryl on hold, will continue to hold medications, will continue with accucheks and ISS. 3. Acute on chronic anemia, history of iron deficiency, Hgb is 6.9 today was due to have colonoscopy with Dr. Garcia, patient has not gone back, Will transfuse 1 more unit of packed RBC, making a total of 2 in this admission, follow-up in am 4. Hyponatremia, hypovolemic, slowly improving 5. Dehydration with elevation in creatinine, baseline between 1.2-1.3, admitted with creatinine 1.46, minimally improved to 1.41 today, will continue to trend 6. Chronic diastolic CHF, no signs of acute exacerbation now, monitor for any insidious CHF exacerbation, daily weight, CHF protocol 7. Morbid obesity, BMI 51.2, 8. Acute on chronic wounds, chronic venous ulcers, patient apparently has been picking on his wounds, recommended to stop, wound nurse consulted 9. Hypertension, controlled, continue on home BP regimen, monitor vitals closely 10. DVT PPx- SCDs for now- recent bleeding from wounds, will start on heparin from tomorrow if he appears stable. Code Visit Inpatient E&M: 21945 Subs Hosp L2
[2018-06-16] MEDS: 0.9% NaCl Peripheral Flush Adult/Peds IV (17:38)
[2018-06-16 17:45] LABS: Bedside Glucose 160 mg/dL (70-110)
[2018-06-16] MEDS: Doxazosin 4 MG Tablet 8 MG PO (22:17)
[2018-06-16] MEDS: Atorvastatin Calcium 40 MG Tablet PO (22:17)
[2018-06-16] MEDS: Metoprolol Tartrate 50 MG Tablet PO (22:17)
[2018-06-16 22:41] LABS: Bedside Glucose 202 mg/dL (70-110)
[2018-06-17] VITALS (17 sets, daily range): BP systolic 124–142; BP diastolic 51–61; PULSE 60–82; RESP 12–20; TEMP 36.1–36.9; O2SAT 96–99
[2018-06-17 07:00] LABS: Bedside Glucose 147 mg/dL (70-110)
[2018-06-17] MEDS: Ipratropium/Albuterol Sulfate 3 ML AMPUL.NEB INHALATION ×3 (07:23→14:42)
[2018-06-17] MEDS: Multivitamins,Therapeutic Tablet 1 TABLET PO (07:41)
[2018-06-17] MEDS: Ferrous Sulfate 325 MG Tablet PO (07:41)
[2018-06-17] MEDS: Spironolactone 25 MG Tablet PO (10:36)
[2018-06-17 10:37] LABS: Absolute Lymphocyte Count 0.74 X10^3/ul (0.83-4.51); Absolute Neutrophil Count 4.4 X10^3/uL (2.0-7.7); Basophil# 0.02 X10^3/uL; Basophil% 0.3 % (0-1); Eosinophils% 3.3 % (0-5); Hematocrit 26.1 % (40-54); Hemoglobin 8.1 g/dl (13.0-16.5); Lymphocyte # 0.74 X10^3/ul (4.0); Lymphocyte % 12.2 % (19-41); Mean Corpuscular Hgb 25.6 pg (27.0-32.0); Mean Corpuscular Volume 82.6 fL (80-94); Monocyte# 0.75 X10^3/uL; Monocyte% 12.3 % (0-10); Neutrophil # 4.35 X10^3/uL (2.7-7.7); Neutrophil % 71.4 % (47-70); Platelet Count 201 K/mm3 (150-450); RBC Distribution Width CV 17.6 % (11.6-14.6); RBC Distribution Width SD 53.7 fl (35.1-43.9); Red Blood Count 3.16 M/mm3 (4.6-6.2); White Blood Count 6.1 K/mm3 (4.4-11.0)
[2018-06-17] MEDS: Loratadine 10 MG Tablet PO (10:37)
[2018-06-17 10:38] LABS: POSITIVE COUNT NO; POSITIVE DIFFERENTIAL NO; POSITIVE MORPHOLOGY NO
[2018-06-17] MEDS: Losartan Potassium 100 MG Tablet PO (10:38)
--- NOTE | 2018-06-17 10:38 | DCINST_ITS ---
- Discharge Diagnoses Current Active Problems: Current Active and Chronic Problems (Last Updated 05/17/18 @ 12:51 by Cristobal Robles DO) Hypoglycemia (Acute) Reason(s) for Visit for Discharge Instructions: Altered mental status You will use the following diet at home:: Calorie/Carbohydrate Controlled (specify 1200, 1400, etc), Cardiac Your food should be the consistency of: Regular Your liquids should be the consistency of: Regular/Thin Discharge Activity: Return to Normal Activity Additional Instructions: Note the changes to your medications. You should check your blood sugars before meals 3x a day. You will need to weigh yourself everyday. You will also need repeat blood work to be done within 3 days of discharge to follow-up on kidney function with new dose of Lasix. You will be discharged with home health team. You should follow-up with Dr. Garcia in 1-2 weeks for outpatient work-up of your anemia. Allergies/Adverse Reactions: Allergies naphazoline HCl [From Naphcon] Allergy (Severe, Verified 06/15/18 10:25) affected his breathing AFFECTED HIS BREATHING amlodipine besylate [From Norvasc] Allergy (Verified 06/15/18 10:25) Other dextromethorphan Allergy (Verified 06/15/18 10:25) Other levofloxacin [From Levaquin] Adverse Reaction (Mild, Verified 06/15/18 10:25) made me hyperactive made me hyperactive Medications to take at Discharge Albuterol Inhaler [Ventolin Hfa] 2 puff INHALATION Q6H PRN PRN 06/15/18 Allopurinol [Zyloprim] 300 mg PO DAILY 06/15/18 Atorvastatin Calcium [Lipitor] 40 mg PO QHS 06/15/18 Budesonide/Formoterol 160/4.5 [Symbicort 160/4.5 Mcg Inhaler (SP)] 2 puff INHALATION BID 06/15/18 Clonidine Patch [Catapres-Tts3] 0.3 mg TRANSDERM. Q7D 06/15/18 Clopidogrel Bisulfate [Plavix] 75 mg PO DAILY 06/15/18 Ferrous Sulfate 325 mg PO DAILY 06/15/18 Finasteride [Proscar] 5 mg PO DAILY 06/15/18 Fluticasone/Salmeterol [Advair 500-50 Diskus] 1 each IH BID 06/15/18 Ipratropium/Albuterol Sulfate [Duoneb] 3 ml INHALATION Q4H.RT 06/15/18 Lansoprazole [Prevacid] 15 mg PO DAILY 06/15/18 Loratadine [Claritin] 10 mg PO DAILY 06/15/18 Losartan Potassium [Cozaar] 100 mg PO DAILY 06/15/18 Magnesium 250 mg PO BID 06/15/18 Metolazone [Zaroxolyn] 2.5 mg PO DAILY 06/15/18 Metoprolol Tartrate [Lopressor (beta maryam)] 50 mg PO BID 06/15/18 Multivitamin,Therapeutic [Thera] 1 each PO DAILY 06/15/18 Nutritional Supplement [Rafael - ORANGE FLAVOR] 1 packet PO BIDCM 06/15/18 Polyethylene Glycol 3350 [Miralax] 17 gm PO DAILY 06/15/18 Sertraline HCl [Zoloft] 100 mg PO DAILY 06/15/18 Spironolactone [Aldactone] 25 mg PO BID 06/15/18 Terazosin HCl [Hytrin] 10 mg PO QHS 06/15/18 Acetaminophen [Tylenol Tablet] 650 mg PO Q6H PRN PRN tablet 06/17/18 Glimepiride [Amaryl] 4 mg PO DAILY@0800 #30 tablet 06/17/18 The following prescriptions were given: Glimepiride [Amaryl] 4 mg PO DAILY@0800 #30 tablet Orders to be completed after discharge: Basic Metabolic Profile (BMP) Time Frame: 3 Days, Location: Laboratory Primary Care Physician: Jack Verdugo MD [Primary Care Provider] - Please follow up with your Primary Care Physician in: within 1-2 weeks Test Results: Test results from this visit will be discussed in further detail at your follow- up appointment, if applicable. Proposed Discharge Date: 06/17/18
[2018-06-17] MEDS: Polyethylene Glycol 3350 17 GM PACKET PO (10:39)
[2018-06-17] MEDS: Furosemide 40 MG/4 ML Vial IV (10:39)
[2018-06-17] MEDS: Clopidogrel Bisulfate 75 MG Tablet PO (10:40)
[2018-06-17] MEDS: Finasteride 5 MG Tablet PO (10:40)
--- NOTE | 2018-06-17 10:40 | PCM.DC.SUM ---
Discharge Date and Diagnosis Date of Admission: 06/15/18 Date of Discharge: 06/17/18 - Primary Discharge Diagnosis Active and Suspected Problems (Last Updated 05/17/18 @ 12:51 by Cristobal Robles DO) Hypoglycemia (Acute) Altered mental status Acute on chronic iron deficiency anemia Dehydration Acute on chronic venous ulcers - Secondary Discharge Diagnosis Chronic Problems (Last Updated 05/17/18 @ 12:51 by Cristobal Robles DO) Chronic diastolic heart failure (Chronic) History of repair of thoracic aortic aneurysm (Chronic ~12/11/09) Thoracic aortic aneurysm without rupture (Chronic) Status post ascending and proximal arch aneurysm replaced with a Hemashield graft and shayan-arch repair; Venous stasis dermatitis (Chronic) Anemia (Chronic) Osteoarthritis (Chronic) Coronary artery disease (Chronic) Lymphedema (Chronic) Hyperlipidemia (Chronic) Super obesity (Chronic) Gout (Chronic) Depression (Chronic) Ulcer of right lower extremity with fat layer exposed (Chronic) Ulcer of left lower extremity with fat layer exposed (Chronic) Bilateral leg edema (Chronic) Tinea unguium (Chronic) Diabetes mellitus with neuropathy (Chronic) Delayed wound healing (Chronic) Open wound, lower leg (Chronic) CKD (chronic kidney disease), stage II (Chronic) Wheezing (Chronic) MIKO (obstructive sleep apnea) (Chronic) BiPAP 18/12 cm of water HTN (hypertension) (Chronic) BPH (benign prostatic hypertrophy) (Chronic) Tinea unguium (Chronic) Diabetes mellitus with neuropathy (Chronic) Edema of both legs (Chronic) Lymphedema of leg (Chronic) Multiple excoriations (Chronic) Asthma (Chronic) COPD (chronic obstructive pulmonary disease) (Chronic) FEV1 58% Arthritis (Chronic) Immobility (Chronic) Pulmonary embolism on right (Chronic) Adynamic ileus (Chronic) Ventral hernia (Chronic) Hypoglycemia (Chronic) Peripheral neuropathy (Chronic) Chronic anemia (Chronic) Benign prostatic hypertrophy without urinary obstruction (Chronic) CKD (chronic kidney disease), stage II (Chronic) CAD (coronary artery disease) (Chronic) Type II diabetes mellitus (Chronic) GERD (gastroesophageal reflux disease) (Chronic) Hypercholesteremia (Chronic) Morbid obesity (Chronic) Pulmonary hypertension (Chronic) H/O aortic valve replacement (Chronic ~12/11/09) # 29 Freestyle valve Venous insufficiency (Chronic) Hospital Course and Treatment Imaging Results: Clinical Impression(s) from Imaging Studies Brain CT 06/15/18 09:01 IMPRESSION: Chronic involutional changes of the brain. Old lacunar infarct in the right thalamus. Electronically Signed: Gab Ruth MD at 10:07 EST Tel [phone], Service support , Consultations 06/15/18 12:22 Consult: Onc/Wound/business account executive Routine Comment: 06/15/18 12:48 Consult: Onc/Wound/business account executive Routine Comment: chronic leg wounds Operations: None Procedures: None Summary of Care Provided: 73 year old M with multiple co-morbidities with MIKO on CPAP, chronic respiratory failure, on 3L oxygen, hypertension, type II DM, chronic diastolic CHF, chronic anemia who lives at home with his . His found him not responsive. She attempted waking him up and he fell forward on his forehead sustaining a hematoma. The EMS was called and found the patient confused, had garbled speech. His blood sugar was 42; he was given glucagon. Repeat blood glucose in the ED was 67. On arrival to floor, patient was awake and alert. He was maintained on D5NS. His Amaryl and Lantus were held. He was found to have Hgb 7.0, transfused 1 unit of pRBC, repeat was 6.9, given another unit of pRBC, repeat Hb is 8.1. Maintained on IV lasix with improvement. He was also seen by wound nurse for acute on chronic venous ulcers. Patient was reportedly picking on his wounds and bled profusely a day prior to admission. Adjustments were made to his hypoglycemic agents. Subjective: Patient seen and examined. Denies chest pain, palpitions. He felt well. ROS was negative Objective: Physical Exam General: Alert, Oriented x3, Cooperative, No apparent distress, - - on 3L oxygen, morbidly obese HEENT: Atraumatic, PERRLA, EOMI, Normocephalic Oral: Moist Mucosa Neck: Supple, No JVD, Negative Carotid Bruits Lungs: Clear to auscultation, Normal air movement Cardiovascular: Regular rate, Regular Rhythm, Normal S1, Normal S2, No murmurs Abdomen: Bowel Sounds Present, Soft, Non Tender, Non-Distended, No Hepato-splenomegaly Extremities: Edema - bipedal +2 Skin: No rashes Musculoskeletal: No Tenderness to Palpation of Joints or Extremities Lymphatic: No Cervical, Supraclavicular, or Inguinal Adenopathy Neurological: Cranial nerves II-XII grossly intact, Neuro grossly intact Psych/Mental Status: Normal Affect, Appropriate - Physical Exam Vital Signs Temp Pulse Resp BP Pulse Ox 98.5 F 82 18 132/51 H 96 06/17/18 07:29 06/17/18 07:40 06/17/18 07:40 06/17/18 07:29 06/17/18 08:16 Oxygen Flow Rate (L/min) 2 Oxygen Delivery Method Nasal Cannula Weight: 150 kg Body Mass Index (BMI) 51.2 Finger Stick Blood Glucose 171 Intake and Output for Last 24 Hours 06/15/18 06/16/18 06/17/18 23:59 23:59 23:59 Intake Total 1333 / 1333 2404 / 2404 175 / 175 Output Total 4200 / 4200 3905 / 3905 400 / 400 Balance -2867 / -2867 -1501 / -1501 -225 / -225 Laboratory Tests Past 24 Hrs 06/15/18 06/17/18 06/17/18 10:55 10:20 10:20 WBC 6.1 RBC 3.16 L Hgb 8.1 L Hct 26.1 L MCV 82.6 MCH 25.6 L MCHC 31.0 L RDW 17.6 H RDW Differential 53.7 H Plt Count 201 MPV 8.0 Immature Gran % (Auto) 0.500 Neut % (Auto) 71.4 H Lymph % (Auto) 12.2 L [place] % (Auto) 12.3 H Eos % (Auto) 3.3 Baso % (Auto) 0.3 Absolute Neuts (auto) 4.4 Absolute Lymphs (auto) 0.74 L Total Counted Not Reportable Sodium Pending Potassium Pending Chloride Pending Carbon Dioxide Pending Anion Gap Pending BUN Pending Creatinine Pending Est GFR (MDRD) Af Amer Pending Est GFR (MDRD) Non-Af Pending BUN/Creatinine Ratio Pending Glucose Pending Calcium Pending Crossmatch See Detail POC Glucose 06/17/18 06/16/18 06/16/18 06:47 22:20 17:37 POC Glucose 147 H 202 H 160 H 06/16/18 11:24 POC Glucose 175 H Discharge Diet: Low fat/ Low Cholesterol, 2000 mg Sodium Diet, Carb Control Diet Discharge Activity: Return to Normal Activity Home Medications: Medications to take at Discharge Albuterol Inhaler [Ventolin Hfa] 2 puff INHALATION Q6H PRN PRN 06/15/18 Allopurinol [Zyloprim] 300 mg PO DAILY 06/15/18 Atorvastatin Calcium [Lipitor] 40 mg PO QHS 06/15/18 Budesonide/Formoterol 160/4.5 [Symbicort 160/4.5 Mcg Inhaler (SP)] 2 puff INHALATION BID 06/15/18 Clonidine Patch [Catapres-Tts3] 0.3 mg TRANSDERM. Q7D 06/15/18 Clopidogrel Bisulfate [Plavix] 75 mg PO DAILY 06/15/18 Ferrous Sulfate 325 mg PO DAILY 06/15/18 Finasteride [Proscar] 5 mg PO DAILY 06/15/18 Fluticasone/Salmeterol [Advair 500-50 Diskus] 1 each IH BID 06/15/18 Ipratropium/Albuterol Sulfate [Duoneb] 3 ml INHALATION Q4H.RT 06/15/18 Lansoprazole [Prevacid] 15 mg PO DAILY 06/15/18 Loratadine [Claritin] 10 mg PO DAILY 06/15/18 Losartan Potassium [Cozaar] 100 mg PO DAILY 06/15/18 Magnesium 250 mg PO BID 06/15/18 Metolazone [Zaroxolyn] 2.5 mg PO DAILY 06/15/18 Metoprolol Tartrate [Lopressor (beta maryam)] 50 mg PO BID 06/15/18 Multivitamin,Therapeutic [Thera] 1 each PO DAILY 06/15/18 Nutritional Supplement [Rafael - ORANGE FLAVOR] 1 packet PO BIDCM 06/15/18 Polyethylene Glycol 3350 [Miralax] 17 gm PO DAILY 06/15/18 Sertraline HCl [Zoloft] 100 mg PO DAILY 06/15/18 Spironolactone [Aldactone] 25 mg PO BID 06/15/18 Terazosin HCl [Hytrin] 10 mg PO QHS 06/15/18 Acetaminophen [Tylenol Tablet] 650 mg PO Q6H PRN PRN tablet 06/17/18 Glimepiride [Amaryl] 4 mg PO DAILY@0800 #30 tablet 06/17/18 Following Prescrptions Were Given to Patient: Glimepiride [Amaryl] 4 mg PO DAILY@0800 #30 tablet Other Amb Orders: Basic Metabolic Profile (BMP) Time Frame: 3 Days, Location: Laboratory Primary Care Physician: Jack Verdugo MD [Primary Care Provider] - Please follow up with your Primary Care Physician in: within 1-2 weeks Please Follow Up With: Brice Garcia MD When: in 1 week Disposition: Home with Home Health Minutes spent on discharge:: 40 Patient Condition:: Fair Medical Necessity - Tobacco Use Smoking Status: Former smoker Tobacco Use: Non-smoker Meaningful Use Info Meaningful Use Diagnoses (Choose all that apply): None applicable Code Visit Inpatient E&M: 67599 Disch Hosp
[2018-06-17] MEDS: Pantoprazole Sodium 20 MG Tablet PO (10:41)
[2018-06-17] MEDS: Metolazone 2.5 MG Tablet PO (10:41)
[2018-06-17] MEDS: Sertraline 100 MG Tablet PO (10:42)
[2018-06-17] MEDS: Allopurinol 300 MG Tablet PO (10:42)
[2018-06-17 10:45] LABS: Anion Gap 7 (5-15); BUN 56 mg/dL (7-18); Calcium,Total 8.8 mg/dL (8.5-10.1); Chloride 91 mmol/L (98-107); EST Glomerular Filtration Rate 52 mL/min (>60); Est Glom Filt Rate - Afr Amer 64 mL/min (>60); Estimated Creatinine Clearance 44.11 ml/min; Glucose 129 mg/dL (74-106); Potassium 4.7 mmol/L (3.5-5.1); Sodium Level 129 mmol/L (136-145)
[2018-06-17] MEDS: Metoprolol Tartrate 50 MG Tablet PO (10:45)
--- NOTE | 2018-06-17 11:00 | CASEMGMT ---
Martina at [facility] notified that pt to be discharged today per Dr. Shafer and that PT/OT added to order at this time. Resumption of care order is in. Daljit NICOLE CM
[2018-06-17 12:11] LABS: Bedside Glucose 168 mg/dL (70-110)
[2018-06-17 16:26] LABS: Bedside Glucose 224 mg/dL (70-110)
--- NOTE | 2018-06-18 14:51 | CASEMGMT ---
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 Rashida MEJIAN RN ACM
--- OUTSIDE RECORDS SUMMARY | 2018-08-17 13:17 | XMS RPT_ITS ---
:1945 Author Organization OHIP Support Name Relationship Address Phone R Unavailable Unavailable Unavailable JAYLON, SAHIL Unavailable [address] + [place] [address] R Unavailable Unavailable Unavailable JAYLON, SAHIL Unavailable [address] + [place] [address] R Unavailable Unavailable Unavailable JAYLON, SAHIL Unavailable [address] + [place] [address] R Unavailable Unavailable Unavailable JAYLON, SAHIL Unavailable [address] + [place] [address] R Unavailable Unavailable Unavailable JAYLON, SAHIL Unavailable [address] + [place] [address] R Unavailable Unavailable Unavailable JAYLON, SAHIL Unavailable [address] + [place] [address] R Unavailable Unavailable Unavailable JAYLON, SAHIL Unavailable [address] + [place] [address] R Unavailable Unavailable Unavailable JAYLON, SAHIL Unavailable [address] + [place] [address] R Unavailable Unavailable Unavailable JAYLON, SAHIL Unavailable [address] + [place] [address] R Unavailable Unavailable Unavailable JAYLON, SAHIL Unavailable [address] + [place] [address] R Unavailable Unavailable Unavailable JAYLON, SAHIL Unavailable [address] + [place] [address] R Unavailable Unavailable Unavailable JAYLON, SAHIL Unavailable [address] + [place] [address] R Unavailable Unavailable Unavailable JAYLON, SAHIL Unavailable [address] + [place] [address] R Unavailable Unavailable Unavailable JAYLON, SAHIL Unavailable [address] + [place] [address] R Unavailable Unavailable Unavailable JAYLON, SAHIL Unavailable [address] + [place] [address] R Unavailable Unavailable Unavailable JAYLON, SAHIL Unavailable [address] + [place] [address] R Unavailable Unavailable Unavailable R Unavailable Unavailable Unavailable JAYLON, SAHIL Unavailable [address] + [place] [address] PROVENCE, MARIAM Unavailable [address] + [address] [place] [address] R Unavailable Unavailable Unavailable JAYLON, SAHIL Unavailable [address] + [place] [address] PROVENCE, MARIAM Unavailable [address] + [address] [place] [address] R Unavailable Unavailable Unavailable JAYLON, SAHIL Unavailable [address] + [place] [address] PROVENCE, MARIAM Unavailable [address] + [address] [place] [address] R Unavailable Unavailable Unavailable JAYLON, SAHIL Unavailable [address] + [place] [address] R Unavailable Unavailable Unavailable R Unavailable Unavailable Unavailable JAYLON, SAHIL Unavailable [address] + [place] [address] R Unavailable Unavailable Unavailable R Unavailable Unavailable Unavailable JAYLON, SAHIL Unavailable [address] + [place] [address] R Unavailable Unavailable Unavailable R Unavailable Unavailable Unavailable JAYLON, SAHIL Unavailable [address] + [place] [address] R Unavailable Unavailable Unavailable R Unavailable Unavailable Unavailable JAYLON, SAHIL Unavailable [address] + [place] [address] PROVENCE, MARIAM Unavailable [address] + [address] [place] [address] R Unavailable Unavailable Unavailable JAYLON, SAHIL Unavailable [address] [address] + [place] [address] PROVENCE, MARIAM Unavailable [address] + [address] [place] [address] R Unavailable Unavailable Unavailable JAYLON, SAHIL Unavailable [address] [facility] [address] + [place] [address] PROVENCE, MARIAM Unavailable [address] + [address] [place] [address] R Unavailable Unavailable Unavailable JAYLON, SAHIL Unavailable [address] + [place] [address] PROVENCE, MARIAM Unavailable [address] + [address] [place] [address] R Unavailable Unavailable Unavailable JAYLON, SAHIL Unavailable [address] [facility] [address] + [place] [address] PROVENCE, MARIAM Unavailable [address] + [address] [place] [address] R Unavailable Unavailable Unavailable JAYLON, SAHIL Unavailable [address] + [place] [address] PROVENCE, MARIAM Unavailable [address] + [address] [place] [address] R Unavailable Unavailable Unavailable JAYLON, SAHIL Unavailable [address] [facility] [address] [address] + [place] [address] PROVENCE, MARIAM Unavailable [address] + [address] [place] [address] R Unavailable Unavailable Unavailable JAYLON, SAHIL Unavailable [address] [facility] [address] [address] + [place] [address] PROVENCE, MARIAM Unavailable [address] + [address] [place] [address] R Unavailable Unavailable Unavailable JAYLON, SAHIL Unavailable [address] [facility] [address] + [place] [address] PROVENCE, MARIAM Unavailable [address] + [address] [place] [address] R Unavailable Unavailable Unavailable JAYLON, SAHIL Unavailable [address] [facility] [address] [address] + [place] [address] PROVENCE, MARIAM Unavailable [address] + [address] [place] [address] R Unavailable Unavailable Unavailable JAYLON, SAHIL Unavailable [address] [address] + [place] [address] PROVENCE, MARIAM Unavailable [address] + [address] [place] [address] R Unavailable Unavailable Unavailable JAYLON, SAHIL Unavailable [address] + [place] [address] PROVENCE, MARIAM Unavailable [address] + [address] [place] [address] R Unavailable Unavailable Unavailable JAYLON, SAHIL Unavailable [address] + [place] [address] PROVENCE, MARIAM Unavailable [address] + [address] [place] [address] R Unavailable Unavailable Unavailable JAYLON, SAHIL Unavailable [address] + [place] [address] PROVENCE, MARIAM Unavailable [address] + [address] [place] [address] R Unavailable Unavailable Unavailable JAYLON, SAHIL Unavailable [address] [facility] [address] + [place] [address] PROVENCE, MARIAM Unavailable [address] + [address] [place] [address] R Unavailable Unavailable Unavailable JAYLON, SAHIL Unavailable [address] [facility] [address] + [place] [address] PROVENCE, MARIAM Unavailable [address] + [address] [place] [address] R Unavailable Unavailable Unavailable JAYLON, SAHIL Unavailable [address] + [place] [address] PROVENCE, MARIAM Unavailable [address] + [address] [place] [address] R Unavailable Unavailable Unavailable JAYLON, SAHIL Unavailable [address] + [place] [address] PROVENCE, MARIAM Unavailable [address] + [address] [place] [address] R Unavailable Unavailable Unavailable JAYLON, SAHIL Unavailable [address] + [place] [address] PROVENCE, MARIAM Unavailable [address] + [address] [place] [address] R Unavailable Unavailable Unavailable JAYLON, SAHIL Unavailable [address] + [place] [address] PROVENCE, MARIAM Unavailable [address] + [address] [place] [address] R Unavailable Unavailable Unavailable JAYLON, SAHIL Unavailable [address] + [place] [address] PROVENCE, MARIAM Unavailable [address] + [address] [place] [address] R Unavailable Unavailable Unavailable JAYLON, SAHIL Unavailable [address] + [place] [address] PROVENCE, MARIAM Unavailable [address] + [address] [place] [address] R Unavailable Unavailable Unavailable JAYLON, SAHIL Unavailable [address] + [place] [address] PROVENCE, MARIAM Unavailable [address] + [address] [place] [address] R Unavailable Unavailable Unavailable JAYLON, SAHIL Unavailable [address] + [place] [address] PROVENCE, MARIAM Unavailable [address] + [address] [place] [address] R Unavailable Unavailable Unavailable JAYLON, SAHIL Unavailable [address] + [place] [address] MARIAM MEDINA Unavailable [address] + [address] [place] [address] R Unavailable Unavailable Unavailable SAHIL IYER Unavailable [address] + [place] [address] Care Team Providers Name Role Phone JENNIFER SINCLAIR ([facility]) Attending Unavailable VERDUGO, JACK Stallings Attending Unavailable VERDUGO, ELLIE Referring Unavailable HAAGEN, MARTINA ([facility]) Attending Unavailable HAAGEN, MARTINA ([facility]) Attending Unavailable HAAGEN, MARTINA ([facility]) Referring Unavailable VERDUGO, ELLIE Attending Unavailable VERDUGO, ELLIE Referring Unavailable VERDUGO, ELLIE Attending Unavailable VERDUGO, ELLIE Attending Unavailable VERDUGO, ELLIE Attending Unavailable VERDUGO, ELLIE Referring Unavailable VERDUGO, ELLIE Attending Unavailable VERDUGO, ELLIE Referring Unavailable VERDUGO, ELLIE Referring Unavailable Verdugo, Jack Primary Care Unavailable Paintsil, Tridell Admitting Unavailable Paintsil, Tridell Attending Unavailable Paintsil, Tridell Admitting Unavailable Paintsil, Tridell Attending Unavailable Verdugo, Jack Primary Care Unavailable Paintsil, Tridell Consulting Unavailable Khari Clay D.O. Attending Unavailable Verdugo, Jack Referring Unavailable Mackenzie Wallace Attending Unavailable Rodrigo, Mackenzie Referring Unavailable Verdugo, Jack Primary Care Unavailable Verdugo, Jack Primary Care Unavailable Garrett Whitlye Admitting Unavailable Brice Garcia Consulting Unavailable Varun Aguilar Attending Unavailable Mackenzie Wallace Attending Unavailable Verdugo Jack Referring Unavailable Breanne, Loretto Attending Unavailable White, Mica Referring Unavailable Breanne, Loretto Attending Unavailable Verdugo, Jack Referring Unavailable Verdugo, Jack Primary Care Unavailable White, Mica Admitting Unavailable Hemanth Joyner Attending Unavailable Verdugo, Jack Primary Care Unavailable Breanne, Danny Consulting Unavailable Khari Clay D.O. Consulting Unavailable Amish, Esperanzaian Consulting Unavailable White, Mica Admitting Unavailable Verdugo, Jack Primary Care Unavailable Breanne, Loretto Consulting Unavailable White, Mica Attending Unavailable Khari Clay D.O. Consulting Unavailable Gbaruk, Kombian Consulting Unavailable White, Mica Admitting Unavailable Shannon Gomez VOCATIONAL PSYCHOLOGIST-C Attending Unavailable Verdugo, Jack Primary Care Unavailable Breanne, Loretto Consulting Unavailable Satish Oro.O. Consulting Unavailable Gbaruk, Kombian Consulting Unavailable White, Mica Admitting Unavailable Breanne, Loretto Attending Unavailable Verdugo, Jack Primary Care Unavailable Breanne, Loretto Consulting Unavailable Satish Oro.O. Consulting Unavailable Tereletsky, Varun Consulting Unavailable White, Mica Admitting Unavailable Tereletsky, Varun Attending Unavailable Verdugo, Jack Primary Care Unavailable Breanne, Loretto Consulting Unavailable Khari Clay D.O. Consulting Unavailable Tereletsky, Varun Consulting Unavailable White, Mica Admitting Unavailable Breanne, Loretto Attending Unavailable Verdugo, Jack Primary Care Unavailable Breanne, Danny Consulting Unavailable Satish Oro.O. Consulting Unavailable Tereletsky, Varun Consulting Unavailable White, Mica Admitting Unavailable Satish Oro.O. Attending Unavailable Verdugo, Jack Primary Care Unavailable Breanne, Danny Consulting Unavailable Satish Oro.O. Consulting Unavailable Tereletsky, Varun Consulting Unavailable White, Mica Admitting Unavailable Tereletsky, Varun Attending Unavailable Verdugo, Jack Primary Care Unavailable Breanne, Danny Consulting Unavailable Satish Oro.O. Consulting Unavailable Tereletsky, Varun Consulting Unavailable White, Mica Admitting Unavailable Satish Oro.O. Attending Unavailable Verdugo, Jack Primary Care Unavailable Breanne, Loretto Consulting Unavailable Satish Oro.O. Consulting Unavailable Tereletsky, Varun Consulting Unavailable White, Mica Admitting Unavailable Tereletsky, Varun Attending Unavailable Verdugo, Jack Primary Care Unavailable Breanne, Danny Consulting Unavailable Satish Oro.O. Consulting Unavailable Tereletsky, Varun Consulting Unavailable White, Mica Admitting Unavailable Satish Oro.O. Attending Unavailable Verdugo, Jack Primary Care Unavailable Breanne, Loretto Consulting Unavailable Satish Oro.O. Consulting Unavailable Tereletsky, Varun Consulting Unavailable Brice Galeano Attending Unavailable Verdugo, Jack Referring Unavailable White, Mica Attending Unavailable Verdugo, Jack Primary Care Unavailable Verdugo, Jack Primary Care Unavailable White, Mica Admitting Unavailable Breanne, Danny Consulting Unavailable Gbaruk, Kombian Attending Unavailable Khari Clay D.O. Consulting Unavailable Mackenzie Wallace Attending Unavailable Verdugo, Jack Referring Unavailable Verdugo, Jack Primary Care Unavailable Rodrigo, Mackenzie Attending Unavailable Verdugo, Jack Referring Unavailable Wallace, Mackenzie Attending Unavailable Verdugo, Jack Primary Care Unavailable Paintsil, Tridell Admitting Unavailable Paintsil, Tridell Attending Unavailable Verdugo, Jack Primary Care Unavailable Paintsil, Tridell Consulting Unavailable Paintsil, Tridell Admitting Unavailable Paintsil, Tridell Attending Unavailable Verdugo, Jack Primary Care Unavailable Paintsil, Tridell Consulting Unavailable Tereletsky, Varun Admitting Unavailable Jopperi, Cristobal Attending Unavailable Verudgo, Jack Primary Care Unavailable Jopperi, Cristobal Consulting Unavailable Tereletsky, Varun Admitting Unavailable Verdugo, Jack Primary Care Unavailable Jopperi, Cristobal Consulting Unavailable Jopperi, Cristobal Attending Unavailable Tereletsky, Varun Admitting Unavailable Verdugo, Jack Primary Care Unavailable Jopperi, Cristobal Consulting Unavailable Jopperi, Cristobal Attending Unavailable Tereletsky, Varun Admitting Unavailable Verdugo, Jack Primary Care Unavailable Semendarlene Rosa Isela Consulting Unavailable SementiCaraRosa Isela Attending Unavailable Tereletsky, Varun Attending Unavailable Verdugo, Jack Primary Care Unavailable Verdugo, Jack Primary Care Unavailable Tereletsky, Varun Admitting Unavailable Jopperi, Cristobal Attending Unavailable Wesley Altman Attending Unavailable Verdugo, Jack Referring Unavailable Verdugo, Jack Primary Care Unavailable Polo Sung Attending Unavailable Brice Garcia Attending Unavailable RadhaBrice Referring Unavailable Verdugo, Jack Primary Care Unavailable Khari Clay D.O. Attending Unavailable Verdugo, Jack Referring Unavailable Verdugo, Jack Primary Care Unavailable MonroeBrice harris Attending Unavailable Radha, Brice Referring Unavailable Verdugo, Jack Primary Care Unavailable Brice Garcia Attending Unavailable Verdugo, Jack Referring Unavailable YVETTE Chun Attending Unavailable Verdugo, Jack Primary Care Unavailable Torito Thomas Attending Unavailable Garrett Whit[place] Admitting Unavailable Verdugo, Jack Primary Care Unavailable Terrahatky, Varun Consulting Unavailable YVETTE Chun Attending Unavailable Garrett [place] Admitting Unavailable Verdugo, Jack Primary Care Unavailable Sameera Simpson Jacquie Consulting Unavailable Sophieam, Sameera Dhillon Attending Unavailable Agtonypong, Garrett Admitting Unavailable Verdugo, Jack Primary Care Unavailable Koram, Sameera Jacquie Consulting Unavailable Sophieam, Sameera Jacquie Attending Unavailable Agyepong, Garrett Admitting Unavailable Semendarlene, Rosa Isela Attending Unavailable Verdugo, Jack Primary Care Unavailable Rosa Isela Wilcox Consulting Unavailable Agyepong, Garrett Admitting Unavailable Agyepong, Garrett Attending Unavailable Verdugo, Jack Primary Care Unavailable Agyepong, Garrett Consulting Unavailable Verdugo, Jack Primary Care Unavailable Kidd Dani Attending Unavailable Mackenzie Wallace Attending Unavailable Verdugo, Jack Referring Unavailable Momo, Teo Chi Admitting Unavailable Momo, Teo Chi Attending Unavailable Verdugo, Jack Primary Care Unavailable Fascione, Elenita Consulting Unavailable PROBLEMS PROBLEMS DATE TYPE CONDITION / CODE ATTENDING STATUS SOURCE 03/20/2018 Active Chronic obstructive VERDUGO, Active [facility] pulmonary disease, [facility] unspecified / [place] J44.9(ICD-10) Repository 05/01/2017 Active Obsessive-compulsive VERDUGO, Active [facility] disorder, unspecified [facility] / F42.9(ICD-10) [place] Repository 07/30/2015 Active Unspecified asthma, VERDUGO, Active [facility] uncomplicated / [facility] J45.909(ICD-10) [place] Repository 12/27/2014 Active Chronic kidney VERDUGO, Active [facility] disease, stage 3 [facility] (moderate) / [place] N18.3(ICD-10) Repository 12/20/2013 Active Varicose veins of VERDUGO, Active [facility] right lower extremity [facility] with ulcer of [place] unspecified site / Repository I83.019(ICD-10) 12/20/2013 Active Varicose veins of VERDUGO, Active [facility] left lower extremity [facility] with ulcer of [place] unspecified site / Repository I83.029(ICD-10) 12/20/2013 Active Non-pressure chronic VERDUGO, Active [facility] ulcer of unspecified [facility] part of right lower [place] leg with unspecified Repository severity / L97.919(ICD-10) 12/20/2013 Active Non-pressure chronic VERDUGO, Active [facility] ulcer of unspecified [facility] part of left lower [place] leg with unspecified Repository severity / L97.929(ICD-10) 10/13/2011 Active Anemia in other VERDUGO, Active [place] chronic diseases [facility] classified elsewhere [place] / D63.8(ICD-10) Repository 03/20/2018 Active Unknown / KARTIK, Active [place] UNK(Unknown) [facility] [place] Repository 01/16/2016 Active Pruritus, unspecified VERDUGO, Active [facility] / L29.9(ICD-10) [facility] [place] Repository 12/20/2013 Active Encounter for KARTIK, Active [place] immunization / [facility] Z23(ICD-10) [place] Repository 12/22/2017 Unknown D50.9 - Iron MonroeBrice harris Active [place] deficiency anemia, Community unspecified / Hospital D50.9(ICD-10) Repository 08/15/2015 Active Essential (primary) NA Active [place] hypertension / [facility] Main I10(ICD-10) [place] Repository 06/29/2015 Active Type 2 diabetes NA Active [place] mellitus with Clinic Main diabetic neuropathy, [place] unspecified / Repository E11.40(ICD-10) 06/29/2015 Active Type 2 diabetes NA Active [place] mellitus with Clinic Main hyperglycemia / [place] E11.65(ICD-10) Repository 03/21/2015 Active Hyperlipidemia, NA Active [place] unspecified / Clinic Main E78.5(ICD-10) [place] Repository 11/03/2017 Active Acute on chronic NA Active [place] diastolic [facility] (congestive) heart [place] failure / Repository I50.33(ICD-10) 09/14/2017 Unknown 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 [facility] coronary artery Repository without angina pectoris / I25.10(ICD-10) PROCEDURES PROCEDURES No Procedure Records FoundRESULTS RESULTS DISCHARGE SUMMARY Observed: 06/18/2018 Status: F Source: [place] 1:45 PM [facility] REPOSITORY [facility] Medical Records Department [address] [place] [address] Discharge Summary 06/17/18 1040 MR#: [id number] Acct: [id number] Name: EVERETT IYER Rep #: [id number] : 1945 73 From: Nasreen Shafer MD PCP: Jack Verdugo MD Status: DIS IN Y Location: [place] [address] Discharge Date and Diagnosis Date of Admission: 06/15/18 Date of Discharge: 06/17/18 - Primary Discharge Diagnosis Active and Suspected Problems (Last Updated 05/17/18 @ 12:51 by Cristobal Robles DO) Hypoglycemia (Acute) Altered mental status Acute on chronic iron deficiency anemia Dehydration Acute on chronic venous ulcers - Secondary Discharge Diagnosis Chronic Problems (Last Updated 05/17/18 @ 12:51 by Cristobal Robles DO) Chronic diastolic heart failure (Chronic) History of repair of thoracic aortic aneurysm (Chronic 12/11/09) Thoracic aortic aneurysm without rupture (Chronic) Status post ascending and proximal arch aneurysm replaced with a Hemashield graft and shayan-arch repair; Venous stasis dermatitis (Chronic) Anemia (Chronic) Osteoarthritis (Chronic) Coronary artery disease (Chronic) Lymphedema (Chronic) Hyperlipidemia (Chronic) Super obesity (Chronic) Gout (Chronic) Depression (Chronic) Ulcer of right lower extremity with fat layer exposed (Chronic) Ulcer of left lower extremity with fat layer exposed (Chronic) Bilateral leg edema (Chronic) Tinea unguium (Chronic) Diabetes mellitus with neuropathy (Chronic) Delayed wound healing (Chronic) Open wound, lower leg (Chronic) CKD (chronic kidney disease), stage II (Chronic) Wheezing (Chronic) MIKO (obstructive sleep apnea) (Chronic) BiPAP 18/12 cm of water HTN (hypertension) (Chronic) BPH (benign prostatic hypertrophy) (Chronic) Tinea unguium (Chronic) Diabetes mellitus with neuropathy (Chronic) Edema of both legs (Chronic) Lymphedema of leg (Chronic) Multiple excoriations (Chronic) Asthma (Chronic) COPD (chronic obstructive pulmonary disease) (Chronic) FEV1 58% Arthritis (Chronic) Immobility (Chronic) Pulmonary embolism on right (Chronic) Adynamic ileus (Chronic) Ventral hernia (Chronic) Hypoglycemia (Chronic) Peripheral neuropathy (Chronic) Chronic anemia (Chronic) Benign prostatic hypertrophy without urinary obstruction (Chronic) CKD (chronic kidney disease), stage II (Chronic) CAD (coronary artery disease) (Chronic) Type II diabetes mellitus (Chronic) GERD (gastroesophageal reflux disease) (Chronic) Hypercholesteremia (Chronic) Morbid obesity (Chronic) Pulmonary hypertension (Chronic) H/O aortic valve replacement (Chronic 12/11/09) # 29 Freestyle valve Venous insufficiency (Chronic) Hospital Course and Treatment Imaging Results: Clinical Impression(s) from Imaging Studies Brain CT 06/15/18 09:01 IMPRESSION: Chronic involutional changes of the brain. Old lacunar infarct in the right thalamus. Electronically Signed: Gab Ruth MD at 10:07 EST Tel [phone], Service support , Consultations 06/15/18 12:22 Consult: Onc/Wound/family practitioner Routine Comment: 06/15/18 12:48 Consult: Onc/Wound/family practitioner Routine Comment: chronic leg wounds Operations: None Procedures: None Summary of Care Provided: 73 year old M with multiple co-morbidities with MIKO on CPAP, chronic respiratory failure, on 3L oxygen, hypertension, type II DM, chronic diastolic CHF, chronic anemia who lives at home with his . His found him not responsive. She attempted waking him up and he fell forward on his forehead sustaining a hematoma. The EMS was called and found the patient confused, had garbled speech. His blood sugar was 42; he was given glucagon. Repeat blood glucose in the ED was 67. On arrival to floor, patient was awake and alert. He was maintained on D5NS. His Amaryl and Lantus were held. He was found to have Hgb 7.0, transfused 1 unit of pRBC, repeat was 6.9, given another unit of pRBC, repeat Hb is 8.1. Maintained on IV lasix with improvement. He was also seen by wound nurse for acute on chronic venous ulcers. Patient was reportedly picking on his wounds and bled profusely a day prior to admission. Adjustments were made to his hypoglycemic agents. Subjective: Patient seen and examined. Denies chest pain, palpitions. He felt well. ROS was negative Objective: Physical Exam General: Alert, Oriented x3, Cooperative, No apparent distress, - - on 3L oxygen, morbidly obese HEENT: Atraumatic, PERRLA, EOMI, Normocephalic Oral: Moist Mucosa Neck: Supple, No JVD, Negative Carotid Bruits Lungs: Clear to auscultation, Normal air movement Cardiovascular: Regular rate, Regular Rhythm, Normal S1, Normal S2, No murmurs Abdomen: Bowel Sounds Present, Soft, Non Tender, Non-Distended, No Hepato-splenomegaly Extremities: Edema - bipedal +2 Skin: No rashes Musculoskeletal: No Tenderness to Palpation of Joints or Extremities Lymphatic: No Cervical, Supraclavicular, or Inguinal Adenopathy Neurological: Cranial nerves II-XII grossly intact, Neuro grossly intact Psych/Mental Status: Normal Affect, Appropriate - Physical Exam Vital Signs Temp Pulse Resp BP Pulse Ox 98.5 F 82 18 132/51 H 96 06/17/18 07:29 06/17/18 07:40 06/17/18 07:40 06/17/18 07:29 06/17/18 08:16 Oxygen Flow Rate (L/min) 2 Oxygen Delivery Method Nasal Cannula Weight: 150 kg Body Mass Index (BMI) 51.2 Finger Stick Blood Glucose 171 Intake and Output for Last 24 Hours Intake Total 1333 / 1333 2404 / 2404 175 / 175 Output Total 4200 / 4200 3905 / 3905 400 / 400 Balance -2867 / -2867 -1501 / -1501 -225 / -225 Laboratory Tests Past 24 Hrs POC Glucose POC Glucose 147 H 202 H 160 H POC Glucose 175 H Discharge Diet: Low fat/ Low Cholesterol, 2000 mg Sodium Diet, Carb Control Diet Discharge Activity: Return to Normal Activity Home Medications: Medications to take at Discharge Albuterol Inhaler [Ventolin Hfa] 2 puff INHALATION Q6H PRN PRN 06/15/18 Allopurinol [Zyloprim] 300 mg PO DAILY 06/15/18 Atorvastatin Calcium [Lipitor] 40 mg PO QHS 06/15/18 Budesonide/Formoterol 160/4.5 [Symbicort 160/4.5 Mcg Inhaler (SP)] 2 puff INHALATION BID 06/15/18 Clonidine Patch [Catapres-Tts3] 0.3 mg TRANSDERM. Q7D 06/15/18 Clopidogrel Bisulfate [Plavix] 75 mg PO DAILY 06/15/18 Ferrous Sulfate 325 mg PO DAILY 06/15/18 Finasteride [Proscar] 5 mg PO DAILY 06/15/18 Fluticasone/Salmeterol [Advair 500-50 Diskus] 1 each IH BID 06/15/18 Ipratropium/Albuterol Sulfate [Duoneb] 3 ml INHALATION Q4H.RT 06/15/18 Lansoprazole [Prevacid] 15 mg PO DAILY 06/15/18 Loratadine [Claritin] 10 mg PO DAILY 06/15/18 Losartan Potassium [Cozaar] 100 mg PO DAILY 06/15/18 Magnesium 250 mg PO BID 06/15/18 Metolazone [Zaroxolyn] 2.5 mg PO DAILY 06/15/18 Metoprolol Tartrate [Lopressor (beta maryam)] 50 mg PO BID 06/15/18 Multivitamin,Therapeutic [Thera] 1 each PO DAILY 06/15/18 Nutritional Supplement [Candido - ORANGE FLAVOR] 1 packet PO BIDCM 06/15/18 Polyethylene Glycol 3350 [Miralax] 17 gm PO DAILY 06/15/18 Sertraline HCl [Zoloft] 100 mg PO DAILY 06/15/18 Spironolactone [Aldactone] 25 mg PO BID 06/15/18 Terazosin HCl [Hytrin] 10 mg PO QHS 06/15/18 Acetaminophen [Tylenol Tablet] 650 mg PO Q6H PRN PRN tablet 06/17/18 Glimepiride [Amaryl] 4 mg PO DAILY@0800 #30 tablet 06/17/18 Following Prescrptions Were Given to Patient: Glimepiride [Amaryl] 4 mg PO DAILY@0800 #30 tablet Other Amb Orders: Basic Metabolic Profile (BMP) Time Frame: 3 Days, Location: Laboratory Primary Care Physician: Jack Verdugo MD [Primary Care Provider] - Please follow up with your Primary Care Physician in: within 1-2 weeks Please Follow Up With: Brice Garcia MD When: in 1 week Disposition: Home with Home Health Minutes spent on discharge:: 40 Patient Condition:: Fair Medical Necessity - Tobacco Use Smoking Status: Former smoker Tobacco Use: Non-smoker Meaningful Use Info Meaningful Use Diagnoses (Choose all that apply): None applicable Code Visit Inpatient E AND M: 64760 Disch Hosp 06/18/18 1345 <Electronically signed by Nasreen Shafer MD> Date Nasreen Shafer MD Cosigner Signature (if applicable): Date CC: Nasreen Shafer MD; Jack Verdugo MD Signed BEDSIDE GLUCOSE Collected: 06/17/2018 Status: F Source: MARK 4:08 PM [facility] REPOSITORY TYPE CODE TESTS RESULT OUT OF REFERENCE UNITS RANGE LAB L501.080 70-110 mg/dL High BEDSIDE GLU 224 Result Comment: MANAGEMENT OF PATIENT CARE PER NURSING PROTOCOL Performed By: #### L501.080 #### [facility] Point of Care [address] [place] [address] BEDSIDE GLUCOSE Collected: 06/17/2018 Status: F Source: MARK 12:01 PM [facility] REPOSITORY TYPE CODE TESTS RESULT OUT OF REFERENCE UNITS RANGE LAB L501.080 70-110 mg/dL High BEDSIDE GLU 168 Result Comment: MANAGEMENT OF PATIENT CARE PER NURSING PROTOCOL Performed By: #### L501.080 #### [facility] Point of Care [address] [place] [address] DISCHARGE INSTRUCTION Observed: 06/17/2018 Status: F Source: MARK 10:40 AM [facility] REPOSITORY [facility] Medical Records Department [address] [place] [address] [place] [address] Instructions for Home/Discharge Instructions 06/17/18 1031 MR#: [id number] Acct: [id number] Name: EVERETT IYER Rep #: [id number] : 1945 73 From: Nasreen Shafer MD PCP: Jack Verdugo MD Status: ADM IN - Discharge Diagnoses Current Active Problems: Current Active and Chronic Problems (Last Updated 05/17/18 @ 12:51 by Cristobal Robles DO) Hypoglycemia (Acute) Reason(s) for Visit for Discharge Instructions: Altered mental status You will use the following diet at home:: Calorie/Carbohydrate Controlled (specify 1200, 1400, etc), Cardiac Your food should be the consistency of: Regular Your liquids should be the consistency of: Regular/Thin Discharge Activity: Return to Normal Activity Additional Instructions: Note the changes to your medications. You should check your blood sugars before meals 3x a day. You will need to weigh yourself everyday. You will also need repeat blood work to be done within 3 days of discharge to follow-up on kidney function with new dose of Lasix. You will be discharged with home health team. You should follow-up with Dr. Garcia in 1-2 weeks for outpatient work-up of your anemia. Allergies/Adverse Reactions: Allergies naphazoline HCl [From Naphcon] Allergy (Severe, Verified 06/15/18 10:25) affected his breathing AFFECTED HIS BREATHING amlodipine besylate [From Norvasc] Allergy (Verified 06/15/18 10:25) Other dextromethorphan Allergy (Verified 06/15/18 10:25) Other levofloxacin [From Levaquin] Adverse Reaction (Mild, Verified 06/15/18 10:25) made me hyperactive made me hyperactive Medications to take at Discharge Albuterol Inhaler [Ventolin Hfa] 2 puff INHALATION Q6H PRN PRN 06/15/18 Allopurinol [Zyloprim] 300 mg PO DAILY 06/15/18 Atorvastatin Calcium [Lipitor] 40 mg PO QHS 06/15/18 Budesonide/Formoterol 160/4.5 [Symbicort 160/4.5 Mcg Inhaler (SP)] 2 puff INHALATION BID 06/15/18 Clonidine Patch [Catapres-Tts3] 0.3 mg TRANSDERM. Q7D 06/15/18 Clopidogrel Bisulfate [Plavix] 75 mg PO DAILY 06/15/18 Ferrous Sulfate 325 mg PO DAILY 06/15/18 Finasteride [Proscar] 5 mg PO DAILY 06/15/18 Fluticasone/Salmeterol [Advair 500-50 Diskus] 1 each IH BID 06/15/18 Ipratropium/Albuterol Sulfate [Duoneb] 3 ml INHALATION Q4H.RT 06/15/18 Lansoprazole [Prevacid] 15 mg PO DAILY 06/15/18 Loratadine [Claritin] 10 mg PO DAILY 06/15/18 Losartan Potassium [Cozaar] 100 mg PO DAILY 06/15/18 Magnesium 250 mg PO BID 06/15/18 Metolazone [Zaroxolyn] 2.5 mg PO DAILY 06/15/18 Metoprolol Tartrate [Lopressor (beta maryam)] 50 mg PO BID 06/15/18 Multivitamin,Therapeutic [Thera] 1 each PO DAILY 06/15/18 Nutritional Supplement [Candido - ORANGE FLAVOR] 1 packet PO BIDCM 06/15/18 Polyethylene Glycol 3350 [Miralax] 17 gm PO DAILY 06/15/18 Sertraline HCl [Zoloft] 100 mg PO DAILY 06/15/18 Spironolactone [Aldactone] 25 mg PO BID 06/15/18 Terazosin HCl [Hytrin] 10 mg PO QHS 06/15/18 Acetaminophen [Tylenol Tablet] 650 mg PO Q6H PRN PRN tablet 06/17/18 Glimepiride [Amaryl] 4 mg PO DAILY@0800 #30 tablet 06/17/18 The following prescriptions were given: Glimepiride [Amaryl] 4 mg PO DAILY@0800 #30 tablet Orders to be completed after discharge: Basic Metabolic Profile (BMP) Time Frame: 3 Days, Location: Laboratory Primary Care Physician: Jack Verdugo MD [Primary Care Provider] - Please follow up with your Primary Care Physician in: within 1-2 weeks Test Results: Test results from this visit will be discussed in further detail at your follow-up appointment, if applicable. Proposed Discharge Date: 06/17/18 06/17/18 1040 <Electronically signed by Nasreen Shafer MD> Date Nasreen Shafer MD CC: Jack Verdugo MD Signed CBC W/DIFF, AUTOMATED Collected: 06/17/2018 Status: F Source: MARK 10:20 AM [facility] REPOSITORY TYPE CODE TESTS RESULT OUT OF RANGE REFERENCE UNITS LAB L100.1000 4.4-11.0 K/mm3 Normal WBC 6.1 LAB L100.1200 4.6-6.2 M/mm3 Low RBC 3.16 LAB L100.1300 13.0-16.5 g/dl Low HGB 8.1 LAB L100.1400 40-54 % Low HCT 26.1 LAB L100.1500 80-94 fL Normal MCV 82.6 LAB L100.1600 27.0-32.0 pg Low MCH 25.6 LAB L100.1700 32-36 g/gl Low MCHC 31.0 LAB L100.1810 11.6-14.6 % High RDW CV 17.6 LAB L100.1820 35.1-43.9 fl High RDW SD 53.7 LAB L100.1900 150-450 K/mm3 Normal PLT 201 LAB L100.2000 6.2-12.0 fl Normal MPV 8.0 LAB L100.2100 47-70 % High NEUT% 71.4 LAB L100.2200 19-41 % Low LY% 12.2 LAB L100.2300 0-10 % High MONO% 12.3 LAB L100.2400 0-5 % Normal EO% 3.3 LAB L100.2500 0-1 % Normal BASO% 0.3 LAB L100.2550 0.0-0.9 % Normal IM GRAN % 0.500 Result Comment: IG% - Immature Granulocytes (promyelocytes, myelocytes and metamyelocytes) > 1% indicates that a LEFT SHIFT is Present. LAB L100.2620 2.0-7.7 X10 3/uL Normal Absolute Neut 4.4 LAB L100.2720 0.83-4.51 X10 3/ul Low Absolute Lymph 0.74 Performed By: #### L100.0100 #### [facility] [address] [place], [address] BASIC METABOLIC Collected: 06/17/2018 Status: F Source: MARK PROFILE (BMP) 10:20 AM [facility] REPOSITORY TYPE CODE TESTS RESULT OUT OF RANGE REFERENCE UNITS LAB L501.0100 74-106 mg/dL High GLU 129 Result Comment: Fasting Glucose result greater than or equal to 126 mg/dL suggests DIABETES MELLITUS per A.D.A. criteria. Please note revised GLUCOSE reference range effective 2017. LAB L501.1000 7-18 mg/dL High BUN 56 LAB L501.1100 0.70-1.30 mg/dL High CREAT,SERUM 1.40 Result Comment: The validity of the calculated GFR AND GFRAA in patients over 70 years has not been determined. Clinical correlation is essential. LAB L501.1110 >60 mL/min Low EST GFR 52 Result Comment: Non- GFR Calc LAB L501.1115 >60 mL/min Normal EST GFR - AA 64 Result Comment: GFR Calc LAB L501.1255 ml/min Normal Estimated CRCL 44.11 LAB L501.1300 10-20 RATIO High BUN/CRE 40.0 LAB L501.2200 8.5-10 mg/dL Normal .1 CA 8.8 LAB L501.5300 136-14 mmol/L Low 5 NA 129 LAB L501.5600 3.5-5. mmol/L Normal 1 K 4.7 LAB L501.5900 98-107 mmol/L Low CL 91 LAB L501.6100 21.0-3 mmol/L Normal 2.0 CO2 31.0 LAB L501.6200 5-15 Normal GAP 7 Performed By: #### L500.2500 #### [facility] [address] [place], [place], [address] BEDSIDE GLUCOSE Collected: 06/17/2018 Status: F Source: MARK 6:47 AM [facility] REPOSITORY TYPE CODE TESTS RESULT OUT OF REFERENCE UNITS RANGE LAB L501.080 70-110 mg/dL High BEDSIDE GLU 147 Result Comment: MANAGEMENT OF PATIENT CARE PER NURSING PROTOCOL Performed By: #### L501.080 #### [facility] Point of Care [address] [facility] [place], [place] [address] BEDSIDE GLUCOSE Collected: 06/16/2018 Status: F Source: MARK 10:20 PM [facility] REPOSITORY TYPE CODE TESTS RESULT OUT OF REFERENCE UNITS RANGE LAB L501.080 70-110 mg/dL High BEDSIDE GLU 202 Result Comment: MANAGEMENT OF PATIENT CARE PER NURSING PROTOCOL Performed By: #### L501.080 #### [facility] Point of Care [address] [place] [address] BEDSIDE GLUCOSE Collected: 06/16/2018 Status: F Source: [place] 5:37 PM [facility] REPOSITORY TYPE CODE TESTS RESULT OUT OF REFERENCE UNITS RANGE LAB L501.080 70-110 mg/dL High BEDSIDE GLU 160 Result Comment: MANAGEMENT OF PATIENT CARE PER NURSING PROTOCOL Performed By: #### L501.080 #### [facility] Point of Care [address] [place] [address] 12 LEAD ELECTROCARDIOGRAM Observed: 06/16/2018 Status: F Source: [place] 1:38 PM [facility] REPOSITORY [facility] Cardiovascular Services [address] [facility] [place] [address] 12 Lead EKG 06/15/18 0921 MR#: [id number] Acct: [id number] Name: EVERETT IYER Rep #: [id number] : 1945 73 From: Parrish Celeste MD Attending Dr: Nasreen Shafer MD Status: ADM IN Ordering Dr: Dani Kidd MD Date: 06/15/18 Location: [facility] Sex: M C Admitted: 06/16/18 Test Reason : UNRESPONSIVE Blood Pressure : / mmHG Vent. Rate : 062 BPM Atrial Rate : 060 BPM P-R Int : 000 ms QRS Dur : 118 ms QT Int : 482 ms P-R-T Axes : 000 015 022 degrees QTc Int : 489 ms Sinus vs. ectopic atrial rhythm Non-specific intra-ventricular conduction delay Nonspecific ST abnormality Prolonged QT Abnormal ECG Confirmed by DOMITILA LOGAN, PARRISH ([id number]), editorial assistant DANIELA GUTIÉRREZ ([id number]) on 06/16/2018 1:37:58 PM Referred By: GABRIELLA Confirmed By:PARRISH CELESTE MD 06/16/18 0265 Date Parrish Celeste MD CC: Nasreen Shafer MD; Dani Kidd MD; Jack Verdugo MD Signed BEDSIDE GLUCOSE Collected: 06/16/2018 Status: F Source: MARK 11:24 AM [facility] REPOSITORY TYPE CODE TESTS RESULT OUT OF REFERENCE UNITS RANGE LAB L501.080 70-110 mg/dL High BEDSIDE GLU 175 Result Comment: MANAGEMENT OF PATIENT CARE PER NURSING PROTOCOL Performed By: #### L501.080 #### [facility] Point of Care [address] [place] [address] BEDSIDE GLUCOSE Collected: 06/16/2018 Status: F Source: MARK 6:18 AM [facility] REPOSITORY TYPE CODE TESTS RESULT OUT OF RANGE REFERENCE UNITS LAB L501.080 70-110 mg/dL Normal BEDSIDE GLU 101 Result Comment: MANAGEMENT OF PATIENT CARE PER NURSING PROTOCOL Performed By: #### L501.080 #### [facility] Point of Care [address] [place] [address] CBC W/DIFF, AUTOMATED Collected: 06/16/2018 Status: F Source: MARK 6:05 AM [facility] REPOSITORY TYPE CODE TESTS RESULT OUT OF RANGE REFERENCE UNITS LAB L100.1000 4.4-11.0 K/mm3 Normal WBC 6.4 LAB L100.1200 4.6-6.2 M/mm3 Low RBC 2.78 LAB L100.1300 13.0-16.5 g/dl Low HGB 6.9 LAB L100.1400 40-54 % Low HCT 23.0 LAB L100.1500 80-94 fL Normal MCV 82.7 LAB L100.1600 27.0-32.0 pg Low MCH 24.8 LAB L100.1700 32-36 g/gl Low MCHC 30.0 LAB L100.1810 11.6-14.6 % High RDW CV 17.1 LAB L100.1820 35.1-43.9 fl High RDW SD 50.1 LAB L100.1900 150-450 K/mm3 Normal PLT 271 LAB L100.2000 6.2-12.0 fl Normal MPV 8.1 LAB L100.2100 47-70 % High NEUT% 75.6 LAB L100.2200 19-41 % Low LY% 11.3 LAB L100.2300 0-10 % Normal MONO% 10.0 LAB L100.2400 0-5 % Normal EO% 2.3 LAB L100.2500 0-1 % Normal BASO% 0.3 LAB L100.2550 0.0-0.9 % Normal IM GRAN % 0.500 Result Comment: IG% - Immature Granulocytes (promyelocytes, myelocytes and metamyelocytes) > 1% indicates that a LEFT SHIFT is Present. LAB L100.2620 2.0-7.7 X10 3/uL Normal Absolute Neut 4.8 LAB L100.2720 0.83-4.51 X10 3/ul Low Absolute Lymph 0.72 Performed By: #### L100.0100 #### [facility] [address] [place], [address] BASIC METABOLIC Collected: 06/16/2018 Status: F Source: [place] PROFILE (BMP) 6:05 AM [facility] REPOSITORY TYPE CODE TESTS RESULT OUT OF RANGE REFERENCE UNITS LAB L501.0100 74-106 mg/dL Normal GLU 104 Result Comment: Fasting Glucose result from 100 to 125 mg/dL suggests IMPAIRED HOMEOSTASIS per A.D.A. criteria. Please note revised GLUCOSE reference range effective 2017. LAB L501.1000 7-18 mg/dL High BUN 44 LAB L501.1100 0.70-1.30 mg/dL High CREAT,SERUM 1.41 Result Comment: The validity of the calculated GFR AND GFRAA in patients over 70 years has not been determined. Clinical correlation is essential. LAB L501.1110 >60 mL/min Low EST GFR 52 Result Comment: Non- GFR Calc LAB L501.1115 >60 mL/min Normal EST GFR - AA 63 Result Comment: GFR Calc LAB L501.1255 ml/min Normal Estimated CRCL 43.79 LAB L501.1300 10-20 RATIO High BUN/CRE 31.2 LAB L501.2200 8.5-10 mg/dL Low .1 CA 8.4 LAB L501.5300 136-14 mmol/L Low 5 NA 131 LAB L501.5600 3.5-5. mmol/L Normal 1 K 5.0 LAB L501.5900 98-107 mmol/L Low CL 93 LAB L501.6100 21.0-3 mmol/L Normal 2.0 CO2 31.0 LAB L501.6200 5-15 Normal GAP 7 Performed By: #### L500.2500 #### [facility] [address] [facility] [place], [address] BEDSIDE GLUCOSE Collected: 06/16/2018 Status: F Source: [place] 12:23 AM [facility] REPOSITORY TYPE CODE TESTS RESULT OUT OF RANGE REFERENCE UNITS LAB L501.080 70-110 mg/dL Normal BEDSIDE GLU 99 Result Comment: MANAGEMENT OF PATIENT CARE PER NURSING PROTOCOL Performed By: #### L501.080 #### [facility] Point of Care [address] [facility] [place] [address] BEDSIDE GLUCOSE Collected: 06/15/2018 Status: F Source: [place] 4:42 PM [facility] REPOSITORY TYPE CODE TESTS RESULT OUT OF REFERENCE UNITS RANGE LAB L501.080 70-110 mg/dL High BEDSIDE GLU 119 Result Comment: MANAGEMENT OF PATIENT CARE PER NURSING PROTOCOL Performed By: #### L501.080 #### [facility] Point of Care [address] [place], [place] [address] [address] HISTORY AND PHYSICAL Observed: 06/15/2018 Status: F Source: [place] EXAM 3:33 PM [facility] REPOSITORY [facility] Medical Records Department [address] [place] [address] History and Physical 06/15/18 1053 MR#: [id number] Acct: [id number] Name: EVERETT IYER Rep #: [id number] : 1945 73 From: Nasreen Shafer MD PCP: Jack Verdugo MD Status: ADM BANDAR Y Location: [place] [address] Problem List (1) Hypoglycemia Status: Acute (2) Chronic diastolic heart failure Status: Chronic (3) Anemia Status: Chronic Qualifiers: Anemia type: iron deficiency (4) Type II diabetes mellitus Status: Chronic Qualifiers: Diabetes mellitus assisted insulin use: with termite control representative use Diabetes mellitus complication status: with unspecified complications Qualified Code(s): E11.8 - Type 2 diabetes mellitus with unspecified complications; Z79.4 - detention (current) use of insulin History of Present Illness Date of Admission: 06/15/18 Chief Complaint: Altered mental status - 1 day The patient is a 73 year old M with multiple co-morbidities with MIKO on cpap, chronic respiratory failure, on 3L oxygen, hypertension, type II DM, chronic diastolic CHF, chronic anemia who lives at home with his . Patient typically sleeps in a recliner. He was found to be difficult to arouse this morning. Patient somehow responded later, but fell down hitting the forehead. The called the squad. It was found to respond with sounds but not oriented. Blood sugar was 42, giving glucagon as IV access was difficult. Emergency department, his temperature is 96.3 F, heart rate 59, blood pressure 139/51, respiratory rate is 18, SPO2 was 100% on 3L. RBC count is 5.1, hemoglobin 7.0, INR is 1.1, sodium is 129, potassium 4.7, chloride 91, bicarbonate 32, BUN 39, creatinine 1.46, calcium 0.7, initial troponin 0.015. CT of the head showed chronic involuntary changes of the brain, old lacunar infarct in the right thalamus Past Medical History Past Medical History (Chronic Problems): Chronic Problems (Last Updated 05/17/18 @ 12:51 by Cristobal Robles DO) Chronic diastolic heart failure (Chronic) History of repair of thoracic aortic aneurysm (Chronic 12/11/09) Thoracic aortic aneurysm without rupture (Chronic) Status post ascending and proximal arch aneurysm replaced with a Hemashield graft and shayan-arch repair; Venous stasis dermatitis (Chronic) Anemia (Chronic) Osteoarthritis (Chronic) Coronary artery disease (Chronic) Lymphedema (Chronic) Hyperlipidemia (Chronic) Super obesity (Chronic) Gout (Chronic) Depression (Chronic) Ulcer of right lower extremity with fat layer exposed (Chronic) Ulcer of left lower extremity with fat layer exposed (Chronic) Bilateral leg edema (Chronic) Tinea unguium (Chronic) Diabetes mellitus with neuropathy (Chronic) Delayed wound healing (Chronic) Open wound, lower leg (Chronic) CKD (chronic kidney disease), stage II (Chronic) Wheezing (Chronic) MIKO (obstructive sleep apnea) (Chronic) BiPAP 18/12 cm of water HTN (hypertension) (Chronic) BPH (benign prostatic hypertrophy) (Chronic) Tinea unguium (Chronic) Diabetes mellitus with neuropathy (Chronic) Edema of both legs (Chronic) Lymphedema of leg (Chronic) Multiple excoriations (Chronic) Asthma (Chronic) COPD (chronic obstructive pulmonary disease) (Chronic) FEV1 58% Arthritis (Chronic) Immobility (Chronic) Pulmonary embolism on right (Chronic) Adynamic ileus (Chronic) Ventral hernia (Chronic) Hypoglycemia (Chronic) Peripheral neuropathy (Chronic) Chronic anemia (Chronic) Benign prostatic hypertrophy without urinary obstruction (Chronic) CKD (chronic kidney disease), stage II (Chronic) CAD (coronary artery disease) (Chronic) Type II diabetes mellitus (Chronic) GERD (gastroesophageal reflux disease) (Chronic) Hypercholesteremia (Chronic) Morbid obesity (Chronic) Pulmonary hypertension (Chronic) H/O aortic valve replacement (Chronic 12/11/09) # 29 Freestyle valve Venous insufficiency (Chronic) Medical History: Medical History (Last Updated 05/17/18 @ 12:51 by Cristobal Robles DO) Thoracic aortic aneurysm without rupture (Chronic) I71.2 Status post ascending and proximal arch aneurysm replaced with a Hemashield graft and shayan-arch repair; Acute on chronic diastolic heart failure (Acute) I50.33 Anemia (Chronic) D64.9 Coronary artery disease (Chronic) I25.10 Hyperlipidemia (Chronic) E78.5 Super obesity (Chronic) E66.9 Bilateral leg edema (Chronic) R60.0 Diabetes mellitus with neuropathy (Chronic) E11.40 Acute on chronic respiratory failure with hypoxia and hypercapnia (Acute) J96.21, J96.22 CKD (chronic kidney disease), stage II (Chronic) N18.2 Wheezing (Chronic) R06.2 Dyspnea (Acute) R06.00 MIKO (obstructive sleep apnea) (Chronic) G47.33 BiPAP 18/12 cm of water HTN (hypertension) (Chronic) I10 Tobacco abuse (Resolved) Z72.0 BPH (benign prostatic hypertrophy) (Chronic) N40.0 Tinea unguium (Chronic) B35.1 Diabetes mellitus with neuropathy (Chronic) E11.40 Edema of both legs (Chronic) R60.0 Lymphedema of leg (Chronic) I89.0 Multiple excoriations (Chronic) T14.8 Asthma (Chronic) J45.909 COPD (chronic obstructive pulmonary disease) (Chronic) J44.9 FEV1 58% Arthritis (Chronic) M19.90 Immobility (Chronic) Z74.09 Pulmonary embolism on right (Chronic) I26.99 CAP (community acquired pneumonia) (Resolved) J18.9 The patient appropriately completed antibiotics and prednisone as prescribed. He has no further signs and symptoms of persistent pneumonia. No indication for any further testing at this time. Patient will be eligible for Pneumovax 23 in approximately 6 months. He states that his PCP is very good at keeping track of his immunizations and when they are due. Adynamic ileus (Chronic) K56.0 Ventral hernia (Chronic) K43.9 Hypoglycemia (Chronic) E16.2 Peripheral neuropathy (Chronic) G62.9 Chronic anemia (Chronic) D64.9 Benign prostatic hypertrophy without urinary obstruction (Chronic) N40.0 CKD (chronic kidney disease), stage II (Chronic) N18.2 CAD (coronary artery disease) (Chronic) I25.10 Type II diabetes mellitus (Chronic) E11.9 GERD (gastroesophageal reflux disease) (Chronic) K21.9 Hypercholesteremia (Chronic) E78.00 Morbid obesity (Chronic) E66.01 Pulmonary hypertension (Chronic) I27.2 Venous insufficiency (Chronic) CHF exacerbation (Resolved) I50.9 Leg swelling (Inactive) M79.89 Nausea and vomiting (Inactive) R11.2 Tinea unguium (Inactive) B35.1 Allergies naphazoline HCl [From Naphcon] Allergy (Severe, Verified 06/15/18 10:25) affected his breathing AFFECTED HIS BREATHING amlodipine besylate [From Norvasc] Allergy (Verified 06/15/18 10:25) Other dextromethorphan Allergy (Verified 06/15/18 10:25) Other levofloxacin [From Levaquin] Adverse Reaction (Mild, Verified 06/15/18 10:25) made me hyperactive made me hyperactive Home Medications: Ambulatory Orders Medication Instructions Recorded Albuterol Inhaler [Ventolin Hfa 2 puff INHALATION Q6H PRN PRN 06/15/18 (SP)] Allopurinol [Zyloprim] 300 mg PO DAILY 06/15/18 Surgical History: Surgical History (Last Reviewed 04/06/18 @ 15:54 by Brynn Avila) History of repair of thoracic aortic aneurysm (Chronic) Onset Date: 12/11/09 Z98.890, Z86.79 H/O aortic valve replacement (Chronic) Onset Date: 12/11/09 Z95.2 # 29 Freestyle valve H/O hernia repair Z98.890, Z87.19 Surgical History: - - He has a bioprosthetic aortic valve replacement, abdominal aortic aneurysm repair '05, recent surgery to repair a large ventral hernia. Psychiatric History: Anxiety, Depression Lives: Spouse/ Significant Other Smoking Status: Former smoker Tobacco Use: Non-smoker Alcohol: None Drugs: None - *Family History Maternal Family History: Family History (Last Reviewed 04/06/18 @ 15:54 by Brynn Avila) Brother TBI (traumatic brain injury) Sister Ulcerative colitis History Items: Hypertension, - - Patient's father at the age of 94 from old age. Patient's mother at age of 87 with a history of hyperlipidemia and hypertension. Paternal Family History: Family History (Last Reviewed 04/06/18 @ 15:54 by Brynn Avila) Brother TBI (traumatic brain injury) Sister Ulcerative colitis History Items: Hypertension Review of Systems Constitutional: Reports: Anorexia. Denies: Chills, Fever, Weakness, Weight Change Eyes: Denies: Blurred vision, Cataracts, Conjunctivae Inflammation, Pain, Redness HEENT: Denies: Difficulty Hearing, Difficulty Swallowing, Head Aches, Hearing Changes, Sinus Congestion, Sinus Drainage, Sore Throat Cardiovascular: Denies: Chest Pain, Claudication, Light Headedness, Orthopnea, Palpitations, Paroxysmal Noc. Dyspnea Respiratory: Denies: Cough, Shortness of Breath, Shortness of breath at rest, Shortness of breath upon exertion, Sputum production Gastrointestinal: Denies: Abdominal Pain, Constipation, Nausea, Vomiting Genitourinary: Denies: Dysuria, Frequency Musculoskeletal: Denies: Joint Pain, Joint stiffness, Joint swelling, Joint Tenderness Skin: Denies: Rash, Wounds Neurological: Reports: Confusion. Denies: Difficulty swallowing, Focal weakness, Numbness, Tingling Psychiatric: Denies: Anxiety, Depression, Homicidal Ideations, Suicidal Ideations Hematologic/ Lymphatic: Denies: Easy Bruising, Easy Bleeding VTE Information - Inpt Only VTE Present on Admission: No VTE Pharm Prophylaxis ordered?: Yes Patient Problems: Active and Suspected Problems (Last Updated 05/17/18 @ 12:51 by Cristobal Robles DO) Hypoglycemia (Acute) - Physical Exam General: Alert, Oriented x3, Cooperative, No apparent distress, - - on 3L oxygen HEENT: Atraumatic, PERRLA, EOMI, Normocephalic Oral: Moist Mucosa Neck: Supple, No JVD, Negative Carotid Bruits Lungs: Clear to auscultation, Normal air movement Cardiovascular: Regular rate, Regular Rhythm, Normal S1, Normal S2, No murmurs Abdomen: Bowel Sounds Present, Soft, Non Tender, Non-Distended, No Hepato-splenomegaly Extremities: Edema - bipedal +2 Skin: No rashes Musculoskeletal: No Tenderness to Palpation of Joints or Extremities Lymphatic: No Cervical, Supraclavicular, or Inguinal Adenopathy Neurological: Cranial nerves II-XII grossly intact, Neuro grossly intact Psych/Mental Status: Normal Affect, Appropriate Vital Signs Temp Pulse Resp BP Pulse Ox 96.3 F L 60 14 135/58 H 100 06/15/18 09:04 06/15/18 10:51 06/15/18 10:51 06/15/18 10:51 06/15/18 10:51 Oxygen Flow Rate (L/min) 15 Oxygen Delivery Method Non-Rebreather Weight: 151.953 kg Body Mass Index (BMI) 50.9 Finger Stick Blood Glucose 171 Laboratory Tests Past 24 Hrs WBC 5.1 RBC 2.83 L Hgb 7.0 L Hct 22.9 L MCV 80.9 MCH 24.7 L WBC RBC Hgb Hct MCV MCH MCHC RDW RDW Differential Plt Count MPV Assessment/Plan All Active Problems (Last Updated 05/17/18 @ 12:51 by Cristobal Robles DO) Hypoglycemia (Acute) Shortness of breath (Acute) Acute on chronic diastolic heart failure (Acute) Acute on chronic respiratory failure with hypoxia and hypercapnia (Acute) Dyspnea (Acute) Tobacco abuse (Resolved) CAP (community acquired pneumonia) (Resolved) Bilateral lower leg cellulitis (Resolved) CHF exacerbation (Resolved) Hyperkalemia (Resolved) Hypomagnesemia (Resolved) Hyponatremia (Resolved) 73 year old M with multiple co-morbidities with MIKO on cpap, chronic respiratory failure, on 3L oxygen, hypertension, type II DM, chronic diastolic CHF, chronic anemia who lives at home with his . 1. Altered mental status/acute metabolic encephalopathy secondary hypoglycemia, resolved, patient is back to his baseline at time of exam. 2. Hypoglycemia, in a known type 2 DM, on insulin and Amaryl, hold the above medications, Accu-Cheks every 6, D5 normal saline, may resume Lantus later on, check HbA1c. 3. Acute on chronic anemia, history of iron deficiency, was due to have colonoscopy with Dr. Garcia, patient has not gone back, transfuse 1 unit of packed RBC, follow-up in am 4. Hyponatremia, hypovolemic, will recheck labs in am 5. Dehydration with elevation in creatinine, baseline between 1.2-1.3, admitted with creatinine 1.46, will hydrate gently, labs in a.m. 6. Chronic diastolic CHF, no signs of acute exacerbation now, monitor for any insidious CHF exacerbation, daily weight, CHF protocol 7. Morbid obesity, BMI 51.2, 8. Acute on chronic wounds, chronic venous ulcers, patient apparently has been picking on his wounds, recommended to stop, wound consult 9. Hypertension, controlled, continue on home BP regimen, monitor vitals closely 10. DVT PPx- SCDs for now- recent bleeding from wounds, will start on heparin from tomorrow if he appears stable. Code Visit OBSV E AND M: 11518 Initial observation care L3 06/15/18 1533 <Electronically signed by Nasreen Shafer MD> Date Nasreen Shafer MD Cosigner Signature: Date (if applicable) CC: Nasreen Shafer MD; Jack Verdugo MD Signed BEDSIDE GLUCOSE Collected: 06/15/2018 Status: F Source: MARK 12:38 PM [facility] REPOSITORY TYPE CODE TESTS RESULT OUT OF RANGE REFERENCE UNITS LAB L501.080 70-110 mg/dL Normal BEDSIDE GLU 94 Result Comment: MANAGEMENT OF PATIENT CARE PER NURSING PROTOCOL Performed By: #### L501.080 #### [facility] Point of Care [address] [place] [address] TYPE AND SCREEN Collected: 06/15/2018 Status: F Source: MARK 10:55 AM [facility] REPOSITORY Order Comment: CMV NEG? N Number of units to transfuse: 1 Is the EBL >/= 1000ml in adults or >/= 12ml/kg in children? Y Reason for Ordering Blood: Acute Are the blood/blood products to be transfused? N Is the patient having/had surgery? N Give When? When Ready Irradiated? N Leukodepleted? Y TYPE CODE TESTS RESULT OUT OF RANGE REFERENCE UNITS LAB B10.0800 A Normal BLOOD TYPE GEL POSITIVE LAB B100.4000 Normal Antibody NEGATIVE Screen Performed By: #### B101.7450 #### [facility] [address] [place], [address] Collected: 06/15/2018 Status: F Source: [place] 10:55 AM [facility] REPOSITORY TYPE CODE TESTS RESULT OUT OF REFERENCE UNITS RANGE LAB U100.0000 [id number] TRANSFUSED PRODUCT: T AND S with Crossmatch, Red Cells COUNT: 1 Performed By: #### U100.0000 #### [facility] - refer to report for specific site RC Collected: 06/15/2018 Status: F Source: [place] 10:55 AM [facility] REPOSITORY TYPE CODE TESTS RESULT OUT OF REFERENCE UNITS RANGE LAB U100.0000 [id number] TRANSFUSED PRODUCT: T AND S with Crossmatch, Red Cells COUNT: 1 Performed By: #### U100.0000 #### [facility] - refer to report for specific site EMERGENCY DEPARTMENT Observed: 06/15/2018 Status: F Source: [place] SUMMARY 10:32 AM [facility] Medical Records Department [address] [place] [address] Emergency Department Summary 06/15/18 0921 MR#: [id number] Acct: [id number] Name: EVERETT IYER Rep #: [id number] : 1945 73 From: Dani Kidd MD PCP: Jack Verdugo MD Status: REG ER - ER Visit Summary Date of Service: 06/15/18 Chief Complaint: Patient arrived by ambulance from home with complaint of altered mental status and low blood sugar History of Present Illness: The patient is a 73 M who was last seen well last evening. He was sitting in a lift chair in the living room. He was seen last evening in the same chair by his . This morning she attempted to speak with him. His speech was garbled and paramedics report she was not able to understand or follow what he was saying. He fell forward onto his face. Upon their arrival he was cyanotic and with depressed respiratory rate. Squad was unable to establish IV. They administered glucagon. Initial blood sugar was in the 40s. First blood sugar in the emergency department was 62. History is limited to what is documented. Physical Examination: Vital signs noted. He is hypothermic. He has multiple bruises noted. Gaze is disconjugate. Pupils are 2-3 mm. There is no subconjunctival hemorrhage. There is no hemotympanum. There is no septal deviation hematoma. Trachea is midline. Heart sounds are distant. Lungs are remarkable for decreased breath sounds with decreased air movement. Exam is limited. Abdomen is distended tympanitic with decreased bowel sounds. He is not alert. Unable to determine his orientation. He attempts to speak when asked questions. He will move all his extremities when asked to. He withdraws with Babinski testing. Test Results: EKG reveals a sinus rhythm rate of 62. Computer read junctional, which in my opinion is incorrect. There is a nonsignificant intraventricular conduction delay with a QRS duration of 118 ms. QT interval is prolonged. Parker is normal. CT of the head interpreted radiologist as no acute process. There is a 6 subcutaneous left forehead hematoma that was not noted in the impression of the radiologist report. Hemoglobin 7.0 with hematocrit of 22.9. Electric panels marked for sodium 129 and chloride of 91. Glucose is 67. BUN and creatinine are 37 and 1.46. First troponin is normal. Emergency Department Course and Treatment: Point of care blood sugar was 62. IV was ordered and 1 amp of D50. If nursing staff unable to establish IV will place IO. CT of the head was ordered to evaluate for stroke hemorrhagic versus ischemic and to rule out traumatic brain injury. In light of his multiple medical problems EKG, chest x-ray and appropriate blood work including ABG since there is a history of CO2 retention. Treatment Plan: Sun called and he states he been picking at his skin and had significant blood loss. Apparently this is occurred in the past and he became anemic. This may have contributed to his fall. Patient was reassessed at 1030. He is still not oriented to time. Therefore will page hospitalist for 23-hour observation and continue to follow blood sugar and hemoglobin. Disposition: 23 observation progressive care unit Impression: 1. Acute change in mental status 2. Hypoglycemia and type II diabetic 3. Hyponatremia 4. Pre-renal azotemia with end-stage renal disease 5. Anemia, hemoglobin 7.0 6. Forehead contusion 7. Chronic respiratory failure with hypercapnia and hypoxia 8. History of obstructive sleep apnea This note was generated with [employer] dictation software. It may contain incorrect words, spelling, and punctuation that were not noted in review of the chart prior to signing ED Disposition - Plan for ED Patient: Chief Complaint: Hypoglycemia Referrals: Jack Verdugo MD [Primary Care Provider] - What to do if you have Problems For any increased pain, shortness of breath, bleeding, nausea or vomiting, chest pain, or any unexpected problems, contact your Primary Care Provider. Call [facility] ([phone]) or report to the closest Emergency Room. Call 911 if necessary. 06/15/18 1032 <Electronically signed by Dani Kidd MD> Date Dani Kidd MD Cosigner Signature (If Indicated): Date CC: Jack Verdugo MD LACTIC ACID Collected: 06/15/2018 Status: F Source: [place] 10:10 AM [facility] REPOSITORY Order Comment: Yes/No query for Sepsis Lactate Rule Y TYPE CODE TESTS RESULT OUT OF RANGE REFERENCE UNITS LAB L503.6005 0.4-2.0 mmol/L Normal LACTIC ACID 0.7 Performed By: #### L503.6005 #### [facility] [address] [place], [address] BEDSIDE GLUCOSE Collected: 06/15/2018 Status: F Source: [place] 9:31 AM [facility] REPOSITORY TYPE CODE TESTS RESULT OUT OF REFERENCE UNITS RANGE LAB L501.080 70-110 mg/dL High BEDSIDE GLU 171 Result Comment: MANAGEMENT OF PATIENT CARE PER NURSING PROTOCOL Performed By: #### L501.080 #### [facility] Point of Care [address] [place] [address] BLOOD GASES BY CPS Collected: 06/15/2018 Status: F Source: [place] 9:20 AM [facility] REPOSITORY TYPE CODE TESTS RESULT OUT OF RANGE REFERENCE UNITS LAB L9000.9990 Normal BLD GAS TYPE ART LAB L9001.1000 Normal SITE OTHER LAB L9001.1010 Normal ANA LILIA TEST POS LAB L9001.1050 O2 Normal Delivery Dev NRB Mask LAB L9001.1055 /min Normal LPM 15.0 LAB L9001.1104 Normal Results To ED MD LAB L9001.1105 Normal Time Given 919 LAB L9001.1110 7.35-7.45 pH Normal - I-STAT 7.35 LAB L9001.1210 35-45 mmHg High pCO2 - ISTAT 57.2 LAB L9001.1310 75-100 mmHG High PO2 I-STAT 219 LAB L9001.2300 22-26 mmol/L High HCO3 ISTAT 31.2 LAB L9001.2400 -2 to +2 mmol/L High BE ISTAT 5 LAB L9001.2415 mmol/L Normal TOTAL CO2 33 ISTAT LAB L9001.2425 95-99 % High SO2 ISTAT 100 Performed By: #### L9000.0800 #### [facility] Point of Care [address] [place] [address] CBC W/DIFF, AUTOMATED Collected: 06/15/2018 Status: F Source: [place] 9:10 AM [facility] REPOSITORY TYPE CODE TESTS RESULT OUT OF RANGE REFERENCE UNITS LAB L100.1000 4.4-11.0 K/mm3 Normal WBC 5.1 LAB L100.1200 4.6-6.2 M/mm3 Low RBC 2.83 LAB L100.1300 13.0-16.5 g/dl Low HGB 7.0 LAB L100.1400 40-54 % Low HCT 22.9 LAB L100.1500 80-94 fL Normal MCV 80.9 LAB L100.1600 27.0-32.0 pg Low MCH 24.7 LAB L100.1700 32-36 g/gl Low MCHC 30.6 LAB L100.1810 11.6-14.6 % High RDW CV 17.1 LAB L100.1820 35.1-43.9 fl High RDW SD 50.8 LAB L100.1900 150-450 K/mm3 Normal PLT 212 LAB L100.2000 6.2-12.0 fl Normal MPV 8.0 LAB L100.2100 47-70 % High NEUT% 71.4 LAB L100.2200 19-41 % Low LY% 14.5 LAB L100.2300 0-10 % Normal MONO% 9.3 LAB L100.2400 0-5 % Normal EO% 3.8 LAB L100.2500 0-1 % Normal BASO% 0.4 LAB L100.2550 0.0-0.9 % Normal IM GRAN % 0.600 Result Comment: IG% - Immature Granulocytes (promyelocytes, myelocytes and metamyelocytes) > 1% indicates that a LEFT SHIFT is Present. LAB L100.2620 2.0-7.7 X10 3/uL Normal Absolute Neut 3.6 LAB L100.2720 0.83-4.51 X10 3/ul Low Absolute Lymph 0.73 Performed By: #### L100.0100 #### [facility] [address] [place], [address] PROTHROMBIN TIME W/INR Collected: 06/15/2018 Status: F Source: [place] 9:10 AM [facility] REPOSITORY TYPE CODE TESTS RESULT OUT OF RANGE REFERENCE UNITS LAB L300.4150 11.7-14.9 SECONDS Normal PROTIME 13.8 LAB L300.4200 Normal INR 1.1 Performed By: #### L300.3900, L300.4310 #### [facility] [address] [place], [place], [address] PARTIAL THROMBOPLAST Collected: 06/15/2018 Status: F Source: [place] TIME 9:10 AM [facility] REPOSITORY TYPE CODE TESTS RESULT OUT OF RANGE REFERENCE UNITS LAB L300.4310 24.1-36.2 Seconds Normal PTT 33.2 Performed By: #### L300.3900, L300.4310 #### [facility] [address] [place], [address] BASIC METABOLIC Collected: 06/15/2018 Status: F Source: [place] PROFILE (BMP) 9:10 AM [facility] REPOSITORY TYPE CODE TESTS RESULT OUT OF RANGE REFERENCE UNITS LAB L501.0100 74-106 mg/dL Low GLU 67 Result Comment: Please note revised GLUCOSE reference range effective 2017. LAB L501.1000 7-18 mg/dL High BUN 39 LAB L501.1100 0.70-1.30 mg/dL High CREAT,SERUM 1.46 Result Comment: The validity of the calculated GFR AND GFRAA in patients over 70 years has not been determined. Clinical correlation is essential. LAB L501.1110 >60 mL/min Low EST GFR 50 Result Comment: Non- GFR Calc LAB L501.1115 >60 mL/min Normal EST GFR - AA 61 Result Comment: GFR Calc LAB L501.1255 ml/min Normal Estimated CRCL 42.29 LAB L501.1300 10-20 RATIO High BUN/CRE 26.7 LAB L501.2200 8.5-10 mg/dL Low .1 CA 8.4 LAB L501.5300 136-14 mmol/L Low 5 NA 129 LAB L501.5600 3.5-5. mmol/L Normal 1 K 4.7 LAB L501.5900 98-107 mmol/L Low CL 91 LAB L501.6100 21.0-3 mmol/L Normal 2.0 CO2 32.0 LAB L501.6200 5-15 Normal GAP 6 Performed By: #### L500.2500, L501.4010 #### [facility] [address] [place], [address] TROPONIN-I Collected: 06/15/2018 Status: F Source: [place] 9:10 AM [facility] REPOSITORY TYPE CODE TESTS RESULT OUT OF RANGE REFERENCE UNITS LAB L501.4010 <0.045 ng/mL Normal < 0.015 TROPONIN-I Result Comment: TROPONIN-I EXPECTED VALUES <0.045 Negative 0.045 - 0.590 Consistent with Cardiac Damage > OR = 0.600 Critical Value Not every elevated troponin is indicative of NJ. These values should be used with clinical judgement in examining the patient's clinical picture for diagnosis. To establish a diagnosis of NJ versus myocardial injury, there must be a demonstrated rise and/or fall in the troponin values, in addition to ischemic symptoms, EKG changes, new regional wall motion abnormality, and/or angiographical evidence. PLEASE NOTE: REFERENCE RANGES EDITED 17 Performed By: #### L500.2500, L501.4010 #### [facility] [address] [place], [address] HEMOGLOBIN A1C Collected: 06/15/2018 Status: F Source: [place] 9:10 AM [facility] REPOSITORY Order Comment: Comments: as add on test TYPE CODE TESTS RESULT OUT OF RANGE REFERENCE UNITS LAB L501.9985 4.2-6.3 % Normal HGB A1C 6.0 Performed By: #### L501.9985 #### [facility] [address] [place], [address] BRAIN/HEAD WITHOUT Observed: 06/15/2018 Status: F Source: [place] CONTRAST 9:04 AM [facility] REPOSITORY [facility] Imaging Services [address] [facility] [place] [address] Brain/Head without Contrast MR#: [id number] Acct: [id number] Name: EVERETT IYER Rep #: [id number] : 1945 73 From: Gab Ruth MD PCP: Jack Verdugo MD Status: PRE ER Study: Brain/Head without Contrast Date of Exam: 06/15/18 Exam# [id number] Ordering Dr: Dani Kidd MD STUDY: CT BRAIN WITHOUT CONTRAST REASON FOR EXAM: Male, 73 years old. History of fall. RADIATION DOSAGE (If Supplied By Facility): CTDIvol = ( 60.81 ) mGy, DLP = ( 1135.50 ) mGycm TECHNIQUE: Transaxial CT imaging of the brain was performed without administration of intravenous contrast material. Individualized dose optimization techniques were used for this CT. COMPARISON: Comparison is made with prior study dated September 09, 2010. FINDINGS: Normal soft tissue structures. Normal calvarium. There is mild cerebral atrophy with widening of the extra- axial spaces and ventricular dilatation. Normal white matter tracts of the cerebral hemispheres. Old lacunar infarct in the right thalamus. Normal brainstem. Normal cerebellum. There is no intracranial hemorrhage. There are no findings of an acute ischemic infarction. Atherosclerotic calcification of the cavernous portions of the internal carotid arteries bilaterally. Atherosclerotic plaques of the vertebral arteries. Mucosal thickening of the ethmoid sinuses bilaterally. CT/Brain/Head without Contrast IMPRESSION: Chronic involutional changes of the brain. Old lacunar infarct in the right thalamus. Electronically Signed: Gab Ruth MD at 10:07 EST Tel [phone], Service support , CC: Dani Kidd MD; Jack Verdugo MD Aircraft Refueller: Signed BEDSIDE GLUCOSE Collected: 06/15/2018 Status: F Source: [place] 9:02 AM [facility] REPOSITORY TYPE CODE TESTS RESULT OUT OF REFERENCE UNITS RANGE LAB L501.080 70-110 mg/dL Low BEDSIDE GLU 62 Result Comment: MANAGEMENT OF PATIENT CARE PER NURSING PROTOCOL Performed By: #### L501.080 #### [facility] Point of Care [address] [place] [address] CNPN Observed: 06/08/2018 Status: COMPLETED Source: [place] 12:00 AM [facility] REPOSITORY Telephone (NAVWST) EVERETT IYER ([id number]) 1945 M Date Time Provider Department 06/08/18 SILVIA RIZVI (BISI) VANESSA During your visit today, we recorded the following information about you: FARTUN [facility] 06/08/2018 11:41 AM Signed Bisi received call from [place] [facility] BISI in regards to concern with patient skin picking. Orville notes that when nurses have gone out to see patient they have been concerned with pools of blood from patient picking skin. Orville asking for thoughts and or services that could help patient. Their staff has tried to speak with patient in regards to issue but he has not been receptive. Bisi noted that she would speak with Dr. Verdugo to see if her feels a referral to [facility] will be beneficial for assessment. Orville is wondering if the skin picking could be related to mental health issue. Jack Verdugo MD 06/08/2018 2:29 PM Signed ASSESSMENT/PLAN: 1. Obsessive-compulsive disorder, unspecified type - ICD9: 300.3, ICD10: F42.9 (primary diagnosis) - CONSULT TO [facility]ULT 2. Pruritic disorder - ICD9: 698.9, ICD10: L29.9 - CONSULT TO PRIMARY [facility]ARE BE[facility]IORAL HE[facility] ADULT MD Silvia Carrillo, [facility] [place] 06/16/2018 10:48 AM Signed Bisi received message from [place] [facility] requesting call back to see if patient received call from [facility] and if patient was receptive to any [facility] assistance. Bisi called Orville [facility] back and let her know that CRIS Burnham contacted patient but he was not interested in any services had to offer. Orville thanked for calling her back to follow up. Allergies As of Date: 06/08/2018 Noted Allergy Reaction LEVAQUIN (LEVOFLOXACIN) 05/13/2007 1 - Mental Status Change NALDECON SENIOR DX (DEXTROMETHORP*02/13/2005 5 - Intolerance NORVASC (AMLODIPINE BESYLATE) 02/13/2005 5 - Intolerance Date Reviewed: 05/26/2018 Reviewed by: Citlali Nix LPN - Fully Assessed Reason for Visit: Social Work Services [507] Primary Visit Diagnosis:Obsessive-compulsive disorder, unspecified type [F42.9] Other Visit Diagnosis:Pruritic disorder [L29.9] Order(s):CONSULT TO PRIMARY [facility]ARE BE[facility]IORAL [facility] ADULT [[id number]] Order #: [id number]: 1 Prescriptions as of 06/08/2018 Sig: ATORVASTATIN 80 MG TABLET Take 0.5 tablets by mouth di* COMPOUNDED PRESCRIPTION Inogen portable Oxygen. 2 LP* INSULIN GLARGINE (U-100) 100 * Inject 30 Units subcutaneousl* VENTOLIN HFA 90 MCG/ACTUATION* Inhale 2 Puffs as instructed * METFORMIN 500 MG TABLET take 1 tablet 3 times a day b* LOSARTAN 100 MG TABLET TAKE 1 TABLET EVERY DAY SPIRONOLACTONE 25 MG TABLET take 1 tablet every morning a* METOLAZONE 2.5 MG TABLET TAKE 1 TABLET EVERY DAY METOPROLOL TARTRATE 50 MG TAB* TAKE 1 TABLET EVERY MORNING a* CLOPIDOGREL 75 MG TABLET TAKE 1 TABLET EVERY DAY BUDESONIDE-FORMOTEROL HFA 160* Inhale 2 Puffs as instructed * SERTRALINE 100 MG TABLET Take 1 tablet by mouth once d* MAGNESIUM 250 MG TABLET Take 1 tablet by mouth twice * FLUTICASONE 500 MCG-SALMETERO* Inhale 1 Puff as instructed t* TERAZOSIN 10 MG CAPSULE Take 1 capsule by mouth daily* FUROSEMIDE 80 MG TABLET take 1 tablet twice a day for* POLYETHYLENE GLYCOL 3350 17 G* use 1 (ONE) PACKET daily D* CLONIDINE 0.3 MG/24 HR WEEKLY* Apply 1 Patch as directed onc* GLIMEPIRIDE 4 MG TABLET Take 2 tablets by mouth daily* LANSOPRAZOLE 15 MG CAPSULE,DE* Take 1 capsule by mouth once * ONETOUCH ULTRA BLUE TEST STRIP Check 4x times a day. Dx: E11* ALLOPURINOL 300 MG TABLET TAKE 1 TABLET EVERY DAY for F* NUTRITIONAL SUPPLEMENTS ORAL * Take 237 mL by mouth twice da* LORATADINE 10 MG TABLET Take 10 mg by mouth once sunny* LANCETS Use four times a day Dx: E1* PEN NEEDLE, DIABETIC 31 GAUGE* 1 Each once daily. Dx: 250.00* IPRATROPIUM-ALBUTEROL 0.5 MG-* Inhale 3 mL as instructed lucille* ACETAMINOPHEN 500 MG TABLET Take 2 tablets by mouth every* FINASTERIDE 5 MG TABLET Take 1 tablet by mouth once d* FERROUS SULFATE 325 MG (65 MG* Take 1 tablet by mouth once d* ALCOHOL PREP PADS use as directed COLACE 100 MG CAPSULE Take one(1) tablet two(2) tasha* MULTIVITAMIN TABLET Take one(1) tablet daily. Problem List As Of Date 06/08/2018 Noted Resolved Unspecified Essential Hypertension [I10] INVALID FOR*12/12/2009 Esophageal Reflux [K21.9] 12/12/2009 Asthma [J45.909] Hypertension goal BP (blood pressure) < 130/80 * Other and Unspecified Hyperlipidemia [E78.5] 01/10/2010 More... DM w/o Complication Type II [E11.9] 12/13/2009 Gout, unspecified [M10.9] Obesity, Class III, BMI 40-49.9 (morbid obesity* BPH W URINARY OBS/LUTS [N40.1] INVALID FOR* OPEN WOUND KNEE/LEG-COMPL [S81.009A, S81.809A, *INVALID FOR*08/21/2008 Lymphedema of both lower extremities [I89.0] INVALID FOR* Thoracic Aneurysm without Mention of Rupture [I*INVALID FOR*12/13/2009 More... More... Osteoarthritis of knee [M17.10] INVALID FOR* More... GERD [K21.9] More... More... More... More... Atelectasis/pleural effusion [J98.11] INVALID FOR*01/10/2010 More... DM type 2, uncontrolled, with neuropathy (HCC) *INVALID FOR* More... CAD (mild per cath) [I25.10] INVALID FOR*03/22/2010 More... Oliguria [R34] INVALID FOR*12/13/2009 More... Acute Renal Insufficiency [N28.9] INVALID FOR*12/27/2009 More... More... A-fib (HCC) [I48.91] INVALID FOR*03/02/2014 ARF (Acute Renal Failure) [N17.9] INVALID FOR*12/18/2009 More... Respiratory Failure, Acute [J96.00] INVALID FOR*12/18/2009 More... Leukocytosis [D72.829] INVALID FOR*12/27/2009 More... Hypernatremia [E87.0] INVALID FOR*12/27/2009 More... H/o Pericardial Effusion (moderate on d/c) [I3*INVALID FOR*01/16/2010 More... More... Anemia [D64.9] INVALID FOR*01/10/2010 More... More... H/o Fever (upon admission) [R50.9] INVALID FOR*01/12/2010 More... Malnutrition [E46] INVALID FOR*01/10/2010 More... Hyperlipidemia with target LDL less than 70 [E7*INVALID FOR* Pleural Effusion/atelectasis [J90] INVALID FOR*04/05/2013 More... Gout [M10.9] INVALID FOR*03/22/2010 More... Sepsis [A41.9] INVALID FOR*03/22/2010 More... Hypokalemia [E87.6] INVALID FOR*03/22/2010 More... Renal insufficiency [N28.9] INVALID FOR*03/22/2010 More... Ascending aortic aneurysm [I71.2] INVALID FOR*04/05/2013 Dilated aortic root [I77.810] INVALID FOR*04/05/2013 Anemia [D64.9] INVALID FOR* CKD (chronic kidney disease) stage 3, GFR 30-59*INVALID FOR* COPD (chronic obstructive pulmonary disease) (H*INVALID FOR* More... Status post aortic valve replacement with prost*INVALID FOR* CVA (cerebral vascular accident) (HCC) [I63.9] INVALID FOR*03/02/2014 More... Stasis leg ulcer (HCC) [I83.009, L97.909] INVALID FOR* Pruritic disorder [L29.9] INVALID FOR* MIKO (obstructive sleep apnea) [G47.33] INVALID FOR* Pulmonary embolus (HCC) [I26.99] INVALID FOR*05/27/2018 Obsessive-compulsive disorder [F42.9] INVALID FOR* Acute on chronic diastolic congestive heart mike*INVALID FOR* Acute on chronic respiratory failure with hypox*INVALID FOR* More... Encounter Status:Closed by SILVIA SHELTON on 06/09/18 ALBUMIN/CREAT RATIO Collected: 05/26/2018 Status: F Source: [place] 5[facility]32 [facility] REPOSITORY TYPE CODE TESTS RESULT OUT OF REFERENCE UNITS RANGE LAB UCRR 20-300 mg/dL Creatinine,Ur 70.2 ine,Ran LAB UALBR 0.0-23.0 mg/L High Albumin Urine 138.0 Random LAB UALBCR 0-30 mg/g High Albumin/Creat 197 Ratio Result Comment: 30 to 300 mg/g indicates an increased risk for diabetic nephropathy. Greater than 300 mg/g is consistent with clinical nephropathy. (Am J Kidney Disease 1995, 25:107) Performed By: #### UACR #### [facility] [address], [place] [address] CBC Collected: 05/26/2018 Status: F Source: [place] 5:24 PM [facility] REPOSITORY TYPE CODE TESTS RESULT OUT OF REFERENCE UNITS RANGE LAB WBC 3.70-11.00 k/uL WBC 10.30 LAB RBC 4.20-6.00 m/uL Low RBC 3.37 LAB HGB 13.0-17.0 g/dL Low Hemoglobin 8.2 LAB HCT 39.0-51.0 % Low Hematocrit 27.7 LAB MCV 80.0-100.0 fL MCV 82.2 LAB MCH 26.0-34.0 pG Low MCH 24.3 LAB MCHC 30.5-36.0 g/dL Low MCHC 29.6 LAB RDWCV 11.5-15.0 % RDW-CV High 16.3 LAB PLTCT 150-400 k/uL Platelet Count 289 LAB MPV 9.0-12.7 fL MPV 9.7 LAB ABSNUC <0.01 k/uL Absolute nRBC <0.01 Performed By: #### CBC, CMP, MG1, HBA1C #### [facility] [address], [place] [address] COMP METABOLIC PANEL Collected: 05/26/2018 Status: F Source: [place] 5:24 PM [facility] REPOSITORY TYPE CODE TESTS RESULT OUT OF REFERENCE UNITS RANGE LAB TP 6.3-8.0 g/dL Protein, Total 7.6 LAB ALB 3.9-4.9 g/dL Low Albumin 3.2 LAB CA 8.5-10.2 mg/dL Calcium, Total 9.2 LAB TBIL 0.2-1.3 mg/dL Bilirubin, Total 0.2 LAB ALKP 38-113 U/L Alkaline Phosphatase 56 LAB AST 14-40 U/L AST 15 LAB GLU 74-99 mg/dL Glucose High 135 Result Comment: The [place] Diabetes Association (ADA) provides guidance for cutoff values for fasting glucose and random glucose. The ADA defines fasting as no caloric intake for at least 8 hours. Fas ting plasma glucose results between 100 to 125 mg/dL indicate increased risk for diabetes (prediabetes). Fasting plasma glucose results greater than or equal to 126 mg/dL meet the criteria for diagnosis of diabetes. In the absence of unequivocal hyperglycemia, results should be confirmed by repeat testing. In a patient with classic symptoms of hyperglycemia or hyperglycemic crisis, random plasma glucose results greater than or equal to 200 mg/dL meet the criteria for diagnosis of diabetes. Reference: Standards of Medical Care in Diabetes 2016, [place] Diabetes Association. Diabetes Care. 2016.39(Suppl 1). LAB BUN 9-24 mg/dL BUN High 26 LAB CRET 0.73-1.22 mg/dL Creatinine 1.15 LAB NA 136-144 mmol/L Sodium 138 LAB K 3.7-5.1 mmol/L Potassium 4.0 LAB CL 97-105 mmol/L Low Chloride 92 LAB CO2 22-30 mmol/L CO2 High 36 LAB AGAP 9-18 mmol/L Anion Gap 10 LAB ALT 10-54 U/L Low ALT 9 LAB GFRAA eGFR- Amer. >60 LAB GFRNAA . eGFR-All Other Races >60 Result Comment: eGFR (Estimated GFR) Units of measure: mL/min/1.73 meters squared eGFR is derived from the reexpressed MDRD Study equation using the following parameters: serum creatinine, age, gender and race. The creatinine assay has been calibrated to be traceable to IDMS. An eGFR <60 mL/min/1.73m2 for >3 months is consistent with chronic kidney disease. Refer to KDOQI guidelines for clinical interpretation. In patients with unstable renal function, e.g. those with acute kidney injury, the eGFR may not accurately reflect actual GFR. Performed By: #### CBC, CMP, MG1, HBA1C #### [facility] [employer] [address] [place] [id number] MAGNESIUM Collected: 05/26/2018 Status: F Source: [place] 5:24 PM [facility] REPOSITORY TYPE CODE TESTS RESULT OUT OF REFERENCE UNITS RANGE LAB MG 1.7-2.3 mg/dL Magnesium 2.0 Performed By: #### CBC, CMP, MG1, HBA1C #### [facility] [employer] [address], [place] [address] HEMOGLOBIN A1C Collected: 05/26/2018 Status: F Source: [place] 5:24 PM [facility] REPOSITORY TYPE CODE TESTS RESULT OUT OF REFERENCE UNITS RANGE LAB HGBA1C 4.3-5.6 % High Hemoglobin A1c 6.2 Result Comment: [place] Diabetes Association guidelines indicate that patients with HgbA1c in the range 5.7-6.4% are at increased risk for development of diabetes, and intervention by lifestyle modification may be beneficial. HgbA1c greater or equal to 6.5% is considered diagnostic of diabetes. LAB HBA0 mg/dL Est. Average Glucose 131 Result Comment: eAG: (Estimated average glucose) is a calculated value from HgbA1c and is wine sales representative of the average blood glucose level in the last 2-3 month period. Performed By: #### CBC, CMP, MG1, HBA1C #### [facility] [employer] [address], [place] [address] PROGRESS Observed: 05/26/2018 Status: COMPLETED Source: [place] 5:06 PM [facility] REPOSITORY HNO ID: [id number] Author: Jack Verdugo Service: (none) Author Type: Physician Type: Progress Notes Filed: 05/27/2018 6:16 PM Note Text: Transitional Care Management TCM Eligibility Documentation The following information was gathered during the initial Patient Outreach Encounter. Date of Outreach: 05/19/2018 Outreach Attempt 1: Contact Made Date of Discharge 05/17/2018 Some recent data might be hidden Provider Documentation Everett Iyer is a 73 year old male here today for a follow up to recent hospitalization. I have reviewed the patient's hospital course including diagnostic testing performed during this hospitalization, their discharge medications, and my assessment and plan with the patient and any family members present at today's visit. HPI: Everett Iyer was admitted -, for shortness of breath. He was treated for congestive heart failure, chronic obstructive pulmonary disease, stasis dermatitis. He was diuresed, then discharged. He was better. His medications were unchanged. His anemia and kidney disease were stable. His diabetes mellitus was labile. He mainly needed a walker since his walker broke, and he needed a new order for portable oxygen. Previous order was from his eviction specialist and was for 2 LPM via [place]. He was interested in a portable concentrator instead of heavy portable tanks. ACTIVE PROBLEM LIST Asthma Hypertension Goal Bp (Blood Pressure) < 130/80 Gout, unspecified Obesity, Class Iii, Bmi 40-49.9 (Morbid Obesity) ([facility]) BPH W URINARY OBS/LUTS Lymphedema of Both Lower Extremities Osteoarthritis of Knee GERD Dm Type 2, Uncontrolled, With Neuropathy ([facility]) Hyperlipidemia With Target Ldl Less Than 70 Anemia CKD (chronic kidney disease) stage 3, GFR 30-59 ml/min Copd (Chronic Obstructive Pulmonary Disease) ([facility]) Status Post Aortic Valve Replacement With Prosthetic Valve Stasis Leg Ulcer ([facility]) Pruritic Disorder Miko (Obstructive Sleep Apnea) Obsessive-Compulsive Disorder Acute On Chronic Diastolic Congestive Heart Failure ([facility]) Acute On Chronic Respiratory Failure With Hypoxia and Hypercapnia ([facility]) Current Outpatient Prescriptions: insulin glargine (BASAGLAR KWIKPEN U-100 INSULIN) 100 unit/mL (3 mL) inpn Inject 30 Units subcutaneously twice daily. VENTOLIN HFA 90 mcg/actuation inhaler Inhale 2 Puffs as instructed every 6 hours as needed for Wheezing/Shortness of Breath. metFORMIN (GLUCOPHAGE) 500 mg tablet take 1 tablet 3 times a day before meals spironolactone (ALDACTONE) 25 mg tablet take 1 tablet every morning and 1 tablet at bedtime metOLAzone (ZAROXOLYN) 2.5 mg tablet TAKE 1 TABLET EVERY DAY metoprolol tartrate, short acting, (LOPRESSOR) 50 mg tablet TAKE 1 TABLET EVERY MORNING and 1 (ONE) tablet at bedtime clopidogrel (PLAVIX) 75 mg tablet TAKE 1 TABLET EVERY DAY budesonide-formoterol (SYMBICORT) 160-4.5 mcg/actuation inhaler Inhale 2 Puffs as instructed twice daily. Dr. Clay. sertraline (ZOLOFT) 100 mg tablet Take 1 tablet by mouth once daily. Magnesium 250 mg tab Take 1 tablet by mouth twice daily. fluticasone-salmeterol (ADVAIR DISKUS) 500-50 mcg/dose dsdv Inhale 1 Puff as instructed twice daily. Per Dr. Memo Clay. Terazosin HCl (HYTRIN) 10 mg capsule Take 1 capsule by mouth daily at bedtime. furosemide (LASIX) 80 mg tablet take 1 tablet twice a day for water pill polyethylene glycol 3350 (MIRALAX, GLYCOLAX) 17 gram packet use 1 (ONE) PACKET daily DIRECTED cloNIDine TTS (CATAPRES-TTS) 0.3 mg/24 hr Apply 1 Patch as directed once each week. glimepiride (AMARYL) 4 mg tablet Take 2 tablets by mouth daily with breakfast. lansoprazole (PREVACID) 15 mg capsule Take 1 capsule by mouth once daily. [employer] ULTRA BLUE TEST STRIP test strip Check 4x times a day. Dx: E11.65. On insulin. Hypoglycemia. allopurinol (ZYLOPRIM) 300 mg tablet TAKE 1 TABLET EVERY DAY for FOR GOUT Nutritional Supplements (CANDIDO) pack Take 237 mL by mouth twice daily. loratadine (CLARITIN) 10 mg tablet Take 10 mg by mouth once daily. Lancets ([employer] ULTRASOFT LANCETS) lancets Use four times a day Dx: E11.65 insulin needles, DISPOSABLE, (BD INSULIN PEN NEEDLE UF) 31 gauge x 5/16 ndle 1 Each once daily. Dx: 250.00 Insulin: yes ipratropium-albuterol (DUONEB) 0.5 mg-3 mg(2.5 mg base)/3 mL nebu Inhale 3 mL as instructed every 4 hours as needed (wheezing). Use over 5-15minutes per nebulizer. acetaminophen (TYLENOL EXTRA STRENGTH) 500 mg tablet Take 2 tablets by mouth every 6 hours as needed for Pain (Patient takes 2x/day). finasteride (PROSCAR) 5 mg tablet Take 1 tablet by mouth once daily. Ferrous Sulfate 325 mg (65 mg iron) tablet Take 1 tablet by mouth once daily. alcohol antiseptic pads(ALCOHOL PREP PADS) use as directed COLACE 100 MG CAP Take one(1) tablet two(2) times daily. MULTIVITAMIN TAB Take one(1) tablet daily. atorvastatin (LIPITOR) 80 mg tablet Take 0.5 tablets by mouth daily at bedtime. COMPOUNDED PRESCRIPTION Inogen portable Oxygen. 2 LPM via [place] 15/12. 1. Acute on chronic diastolic congestive heart failure (HCC) - ICD9: 428.33, 428.0, ICD10: I50.33 (primary diagnosis)2. Acute on chronic respiratory failure with hypoxia and hypercapnia (HCC) - ICD9: 518.84, 786.09, 799.02, ICD10: J96.21, J96.22 losartan (COZAAR) 100 mg tablet TAKE 1 TABLET EVERY DAY No current facility-administered medications for this visit. Review of Systems Constitutional: Negative. Respiratory: Positive for shortness of breath. Negative for cough. Cardiovascular: Positive for leg swelling. Negative for chest pain, palpitations and orthopnea. Gastrointestinal: Negative. Neurological: Positive for focal weakness. Vitals BP 132/68 Pulse 88 Temp (Src) 99.1 (Left Tympanic) Resp 18 Physical Exam Constitutional: No distress. Eyes: Conjunctivae are normal. No scleral icterus. Neck: No JVD present. Cardiovascular: Normal heart sounds. Exam reveals no gallop and no friction rub. No murmur heard. Pulmonary/Chest: No respiratory distress. He has decreased breath sounds in the right lower field and the left lower field. He has no wheezes. He has no rhonchi. He has no rales. On portable O2 via [place]. Musculoskeletal: He exhibits edema. 1-2+ edema, compression wraps in place. Neurological: He is alert. Wheelchair bound. Skin: He is not diaphoretic. There is pallor. ASSESSMENT/PLAN: 1. Acute on chronic diastolic congestive heart failure (HCC) - ICD9: 428.33, 428.0, ICD10: I50.33 (primary diagnosis) Improved. Continue medications. Rx for Inogen portable O2. - COMPOUNDED PRESCRIPTION - WALKER - FOLDING 2. Acute on chronic respiratory failure with hypoxia and hypercapnia (HCC) - ICD9: 518.84, 786.09, 799.02, ICD10: J96.21, J96.22 Stable. - COMPOUNDED PRESCRIPTION - WALKER - FOLDING 3. CKD (chronic kidney disease) stage 3, GFR 30-59 ml/min - ICD9: 585.3, ICD10: N18.3 Recheck labs. 4. DM type 2, uncontrolled, with neuropathy (HCC) - ICD9: 250.62, 357.2, ICD10: E11.40, E11.65 poorly controlled - Continue current medications Jack Verdugo MD May 26, 2018 5:06 PM CNOV Observed: 05/26/2018 Status: COMPLETED Source: [place] 4:20 PM [facility] REPOSITORY Office Visit (INTMWS) EVERETT IYER ([id number]) 1945 M Date Time Provider Department 05/26/18 4:20 PM JACK VERDUGO INTCE[facility]EL[facility] During your visit today, we recorded the following information about you: Temperature Pulse Respiration Blood pressure 99.1 degrees 88/minute 18/minute 132/68 Citlali Ortegatori MANZO 05/27/2018 6:16 PM Signed TRANSITION CARE MANAGEMENT (TCM) INITIAL CONTACT Planning Rn Outreach ? Provider Action/FYI: ? ? ? Initial contact with patient post discharge, spoke to patient. Patient identified by name and . ? TRANSITION CARE MANAGEMENT INITIAL OUTREACH DOCUMENTATION: Date of Outreach: 05/19/2018 Outreach Attempt 1: Contact Made Date of Discharge 05/17/2018 Some recent data might be hidden ? ? SUMMARY: -Pt discharged from [facility] on 05/17/18. -Admitted for: SOB and CHF ? Do you have a hospital follow up appointment with your PCP? Appointment on 05/26/18 with pcp. Appt arranged with this call. ? MEDICATIONS: Many patients have questions or concerns about their medications once they are home. Were you prescribed any new medications? If yes, what are those medications? lasix ? Were you told to hold any medications? No Were any of your medications discontinued? No ? Do you have any questions about getting or taking your medications? No ? Your discharge instructions/After visit Summary (AVS) are important in guiding you through the recovery process. Is there anything I might help you understand? No ? Do you have all the necessary equipment and supplies at home? Yes [facility] will be seeing pt 05/20/18 ? Medical records from recent hospitalization: Placed for provider to review Jack Verdugo MD 05/27/2018 6:16 PM Signed Transitional Care Management TCM Eligibility Documentation The following information was gathered during the initial Patient Outreach Encounter. Date of Outreach: 05/19/2018 Outreach Attempt 1: Contact Made Date of Discharge 05/17/2018 Some recent data might be hidden Provider Documentation Everett Iyer is a 73 year old male here today for a follow up to recent hospitalization. I have reviewed the patient's hospital course including diagnostic testing performed during this hospitalization, their discharge medications, and my assessment and plan with the patient and any family members present at today's visit. HPI: Everett Iyer was admitted -, for shortness of breath. He was treated for congestive heart failure, chronic obstructive pulmonary disease, stasis dermatitis. He was diuresed, then discharged. He was better. His medications were unchanged. His anemia and kidney disease were stable. His diabetes mellitus was labile. He mainly needed a walker since his walker broke, and he needed a new order for portable oxygen. Previous order was from his eviction specialist and was for 2 LPM via [place]. He was interested in a portable concentrator instead of heavy portable tanks. ACTIVE PROBLEM LIST Asthma Hypertension Goal Bp (Blood Pressure) < 130/80 Gout, unspecified Obesity, Class Iii, Bmi 40-49.9 (Morbid Obesity) ([facility]) BPH W URINARY OBS/LUTS Lymphedema of Both Lower Extremities Osteoarthritis of Knee GERD Dm Type 2, Uncontrolled, With Neuropathy ([facility]) Hyperlipidemia With Target Ldl Less Than 70 Anemia CKD (chronic kidney disease) stage 3, GFR 30-59 ml/min Copd (Chronic Obstructive Pulmonary Disease) ([facility]) Status Post Aortic Valve Replacement With Prosthetic Valve Stasis Leg Ulcer ([facility]) Pruritic Disorder Miko (Obstructive Sleep Apnea) Obsessive-Compulsive Disorder Acute On Chronic Diastolic Congestive Heart Failure ([facility]) Acute On Chronic Respiratory Failure With Hypoxia and Hypercapnia ([facility]) Current Outpatient Prescriptions: insulin glargine (BASAGLAR KWIKPEN U-100 INSULIN) 100 unit/mL (3 mL) inpn Inject 30 Units subcutaneously twice daily. VENTOLIN HFA 90 mcg/actuation inhaler Inhale 2 Puffs as instructed every 6 hours as needed for Wheezing/Shortness of Breath. metFORMIN (GLUCOPHAGE) 500 mg tablet take 1 tablet 3 times a day before meals spironolactone (ALDACTONE) 25 mg tablet take 1 tablet every morning and 1 tablet at bedtime metOLAzone (ZAROXOLYN) 2.5 mg tablet TAKE 1 TABLET EVERY DAY metoprolol tartrate, short acting, (LOPRESSOR) 50 mg tablet TAKE 1 TABLET EVERY MORNING and 1 (ONE) tablet at bedtime clopidogrel (PLAVIX) 75 mg tablet TAKE 1 TABLET EVERY DAY budesonide-formoterol (SYMBICORT) 160-4.5 mcg/actuation inhaler Inhale 2 Puffs as instructed twice daily. Dr. Clay. sertraline (ZOLOFT) 100 mg tablet Take 1 tablet by mouth once daily. Magnesium 250 mg tab Take 1 tablet by mouth twice daily. fluticasone-salmeterol (ADVAIR DISKUS) 500-50 mcg/dose dsdv Inhale 1 Puff as instructed twice daily. Per Dr. Memo Clay. Terazosin HCl (HYTRIN) 10 mg capsule Take 1 capsule by mouth daily at bedtime. furosemide (LASIX) 80 mg tablet take 1 tablet twice a day for water pill polyethylene glycol 3350 (MIRALAX, GLYCOLAX) 17 gram packet use 1 (ONE) PACKET daily DIRECTED cloNIDine TTS (CATAPRES-TTS) 0.3 mg/24 hr Apply 1 Patch as directed once each week. glimepiride (AMARYL) 4 mg tablet Take 2 tablets by mouth daily with breakfast. lansoprazole (PREVACID) 15 mg capsule Take 1 capsule by mouth once daily. [employer] ULTRA BLUE TEST STRIP test strip Check 4x times a day. Dx: E11.65. On insulin. Hypoglycemia. allopurinol (ZYLOPRIM) 300 mg tablet TAKE 1 TABLET EVERY DAY for FOR GOUT Nutritional Supplements (CANDIDO) pack Take 237 mL by mouth twice daily. loratadine (CLARITIN) 10 mg tablet Take 10 mg by mouth once daily. Lancets ([employer] ULTRASOFT LANCETS) lancets Use four times a day Dx: E11.65 insulin needles, DISPOSABLE, (BD INSULIN PEN NEEDLE UF) 31 gauge x 5/16 ndle 1 Each once daily. Dx: 250.00 Insulin: yes ipratropium-albuterol (DUONEB) 0.5 mg-3 mg(2.5 mg base)/3 mL nebu Inhale 3 mL as instructed every 4 hours as needed (wheezing). Use over 5-15minutes per nebulizer. acetaminophen (TYLENOL EXTRA STRENGTH) 500 mg tablet Take 2 tablets by mouth every 6 hours as needed for Pain (Patient takes 2x/day). finasteride (PROSCAR) 5 mg tablet Take 1 tablet by mouth once daily. Ferrous Sulfate 325 mg (65 mg iron) tablet Take 1 tablet by mouth once daily. alcohol antiseptic pads(ALCOHOL PREP PADS) use as directed COLACE 100 MG CAP Take one(1) tablet two(2) times daily. MULTIVITAMIN TAB Take one(1) tablet daily. atorvastatin (LIPITOR) 80 mg tablet Take 0.5 tablets by mouth daily at bedtime. COMPOUNDED PRESCRIPTION Inogen portable Oxygen. 2 LPM via [place] 15/12. 1. Acute on chronic diastolic congestive heart failure (HCC) - ICD9: 428.33, 428.0, ICD10: I50.33 (primary diagnosis)2. Acute on chronic respiratory failure with hypoxia and hypercapnia (HCC) - ICD9: 518.84, 786.09, 799.02, ICD10: J96.21, J96.22 losartan (COZAAR) 100 mg tablet TAKE 1 TABLET EVERY DAY No current facility-administered medications for this visit. Review of Systems Constitutional: Negative. Respiratory: Positive for shortness of breath. Negative for cough. Cardiovascular: Positive for leg swelling. Negative for chest pain, palpitations and orthopnea. Gastrointestinal: Negative. Neurological: Positive for focal weakness. Vitals BP 132/68 Pulse 88 Temp (Src) 99.1 (Left Tympanic) Resp 18 Physical Exam Constitutional: No distress. Eyes: Conjunctivae are normal. No scleral icterus. Neck: No JVD present. Cardiovascular: Normal heart sounds. Exam reveals no gallop and no friction rub. No murmur heard. Pulmonary/Chest: No respiratory distress. He has decreased breath sounds in the right lower field and the left lower field. He has no wheezes. He has no rhonchi. He has no rales. On portable O2 via [place]. Musculoskeletal: He exhibits edema. 1-2+ edema, compression wraps in place. Neurological: He is alert. Wheelchair bound. Skin: He is not diaphoretic. There is pallor. ASSESSMENT/PLAN: 1. Acute on chronic diastolic congestive heart failure (HCC) - ICD9: 428.33, 428.0, ICD10: I50.33 (primary diagnosis) Improved. Continue medications. Rx for Inogen portable O2. - COMPOUNDED PRESCRIPTION - WALKER - FOLDING 2. Acute on chronic respiratory failure with hypoxia and hypercapnia (HCC) - ICD9: 518.84, 786.09, 799.02, ICD10: J96.21, J96.22 Stable. - COMPOUNDED PRESCRIPTION - WALKER - FOLDING 3. CKD (chronic kidney disease) stage 3, GFR 30-59 ml/min - ICD9: 585.3, ICD10: N18.3 Recheck labs. 4. DM type 2, uncontrolled, with neuropathy (HCC) - ICD9: 250.62, 357.2, ICD10: E11.40, E11.65 poorly controlled - Continue current medications Jack Verdugo MD May 26, 2018 5:06 PM Referring Provider: JACK VERDUGO [[id number]] Allergies As of Date: 05/26/2018 Noted Allergy Reaction LEVAQUIN (LEVOFLOXACIN) 05/13/2007 1 - Mental Status Change NALDECON SENIOR DX (DEXTROMETHORP*02/13/2005 5 - Intolerance NORVASC (AMLODIPINE BESYLATE) 02/13/2005 5 - Intolerance Date Reviewed: 05/26/2018 Reviewed by: Citlali Nix LPN - Fully Assessed Reason for Visit: Transition Of Care [[id number]] Primary Visit Diagnosis:Acute on chronic diastolic congestive heart failure (HCC) [I50.33] Other Visit Diagnoses:Acute on chronic respiratory failure with hypoxia and hypercapnia (HCC) [J96.21, J96.22] CKD (chronic kidney disease) stage 3, GFR 30-59 ml/min [N18.3] DM type 2, uncontrolled, with neuropathy (HCC) [E11.40, E11.65] Order(s):COMPOUNDED PRESCRIPTIONInogen portable Oxygen. 2 LPM via [place] 15/12. 1. Acute on chronic diastolic congestive heart failure (HCC) - ICD9: 428.33, 428.0, ICD10: I50.33 (primary diagnosis) 2. Acute on chronic respiratory failure with hypoxia and hypercapnia (HCC) - ICD9: 518.84, 786.09, 799.02, ICD10: J96.21, J96.22Disp: 1 DeviceRfl: 0 WALKER - FOLDING [[id number]] Order #: [id number] Prescriptions as of 05/26/2018 Sig: INSULIN GLARGINE (U-100) 100 * Inject 30 Units subcutaneousl* VENTOLIN HFA 90 MCG/ACTUATION* Inhale 2 Puffs as instructed * METFORMIN 500 MG TABLET take 1 tablet 3 times a day b* SPIRONOLACTONE 25 MG TABLET take 1 tablet every morning a* METOLAZONE 2.5 MG TABLET TAKE 1 TABLET EVERY DAY METOPROLOL TARTRATE 50 MG TAB* TAKE 1 TABLET EVERY MORNING a* CLOPIDOGREL 75 MG TABLET TAKE 1 TABLET EVERY DAY BUDESONIDE-FORMOTEROL HFA 160* Inhale 2 Puffs as instructed * SERTRALINE 100 MG TABLET Take 1 tablet by mouth once d* MAGNESIUM 250 MG TABLET Take 1 tablet by mouth twice * FLUTICASONE 500 MCG-SALMETERO* Inhale 1 Puff as instructed t* TERAZOSIN 10 MG CAPSULE Take 1 capsule by mouth daily* FUROSEMIDE 80 MG TABLET take 1 tablet twice a day for* POLYETHYLENE GLYCOL 3350 17 G* use 1 (ONE) PACKET daily D* CLONIDINE 0.3 MG/24 HR WEEKLY* Apply 1 Patch as directed onc* GLIMEPIRIDE 4 MG TABLET Take 2 tablets by mouth daily* LANSOPRAZOLE 15 MG CAPSULE,DE* Take 1 capsule by mouth once * [employer] ULTRA BLUE TEST STRIP Check 4x times a day. Dx: E11* ALLOPURINOL 300 MG TABLET TAKE 1 TABLET EVERY DAY for F* NUTRITIONAL SUPPLEMENTS ORAL * Take 237 mL by mouth twice da* LORATADINE 10 MG TABLET Take 10 mg by mouth once sunny* X ATORVASTATIN 80 MG TABLET Take 0.5 tablets by mouth onc* LANCETS Use four times a day Dx: E1* PEN NEEDLE, DIABETIC 31 GAUGE* 1 Each once daily. Dx: 250.00* IPRATROPIUM-ALBUTEROL 0.5 MG-* Inhale 3 mL as instructed lucille* ACETAMINOPHEN 500 MG TABLET Take 2 tablets by mouth every* FINASTERIDE 5 MG TABLET Take 1 tablet by mouth once d* FERROUS SULFATE 325 MG (65 MG* Take 1 tablet by mouth once d* ALCOHOL PREP PADS use as directed COLACE 100 MG CAPSULE Take one(1) tablet two(2) tasha* MULTIVITAMIN TABLET Take one(1) tablet daily. COMPOUNDED PRESCRIPTION Inogen portable Oxygen. 2 LP* LOSARTAN 100 MG TABLET TAKE 1 TABLET EVERY DAY Problem List As Of Date 05/26/2018 Noted Resolved Unspecified Essential Hypertension [I10] INVALID FOR*12/12/2009 Esophageal Reflux [K21.9] 12/12/2009 Asthma [J45.909] Hypertension goal BP (blood pressure) < 150/90 * Other and Unspecified Hyperlipidemia [E78.5] 01/10/2010 More... DM w/o Complication Type II [E11.9] 12/13/2009 Gout, unspecified [M10.9] Obesity, Class III, BMI 40-49.9 (morbid obesity* BPH W URINARY OBS/LUTS [N40.1] INVALID FOR* OPEN WOUND KNEE/LEG-COMPL [S81.009A, S81.809A, *INVALID FOR*08/21/2008 Lymphedema of both lower extremities [I89.0] INVALID FOR* Thoracic Aneurysm without Mention of Rupture [I*INVALID FOR*12/13/2009 More... ASCVD [I25.10] INVALID FOR* More... Osteoarthritis of knee [M17.10] INVALID FOR* More... GERD [K21.9] More... More... More... More... Atelectasis/pleural effusion [J98.11] INVALID FOR*01/10/2010 More... DM type 2, uncontrolled, with neuropathy (HCC) *INVALID FOR* More... CAD (mild per cath) [I25.10] INVALID FOR*03/22/2010 More... Oliguria [R34] INVALID FOR*12/13/2009 More... Acute Renal Insufficiency [N28.9] INVALID FOR*12/27/2009 More... More... A-fib (HCC) [I48.91] INVALID FOR*03/02/2014 ARF (Acute Renal Failure) [N17.9] INVALID FOR*12/18/2009 More... Respiratory Failure, Acute [J96.00] INVALID FOR*12/18/2009 More... Leukocytosis [D72.829] INVALID FOR*12/27/2009 More... Hypernatremia [E87.0] INVALID FOR*12/27/2009 More... H/o Pericardial Effusion (moderate on d/c) [I3*INVALID FOR*01/16/2010 More... More... Anemia [D64.9] INVALID FOR*01/10/2010 More... More... H/o Fever (upon admission) [R50.9] INVALID FOR*01/12/2010 More... Malnutrition [E46] INVALID FOR*01/10/2010 More... Hyperlipidemia with target LDL less than 70 [E7*INVALID FOR* Pleural Effusion/atelectasis [J90] INVALID FOR*04/05/2013 More... Gout [M10.9] INVALID FOR*03/22/2010 More... Sepsis [A41.9] INVALID FOR*03/22/2010 More... Hypokalemia [E87.6] INVALID FOR*03/22/2010 More... Renal insufficiency [N28.9] INVALID FOR*03/22/2010 More... Ascending aortic aneurysm [I71.2] INVALID FOR*04/05/2013 Dilated aortic root [I77.810] INVALID FOR*04/05/2013 Anemia [D64.9] INVALID FOR* CKD (chronic kidney disease) stage 3, GFR 30-59*INVALID FOR* COPD (chronic obstructive pulmonary disease) (H*INVALID FOR* More... Status post aortic valve replacement with prost*INVALID FOR* CVA (cerebral vascular accident) (HCC) [I63.9] INVALID FOR*03/02/2014 More... Stasis leg ulcer (HCC) [I83.009, L97.909] INVALID FOR* Pruritic disorder [L29.9] INVALID FOR* MIKO (obstructive sleep apnea) [G47.33] INVALID FOR* Pulmonary embolus (HCC) [I26.99] INVALID FOR* Obsessive-compulsive disorder [F42.9] INVALID FOR* Acute on chronic diastolic congestive heart mike*INVALID FOR* Acute on chronic respiratory failure with hypox*INVALID FOR* More... Prescriptions ordered this encounter Disp Refills Start End COMPOUNDED PRESCRIPTION 1 De* 0 05/26/2018 Class: Print RX Sig: Inogen portable Oxygen. 2 LPM via NC 15/12. 1. Acute on chronic diastolic congestive heart failure (HCC) - ICD9: 428.33, 428.0, ICD10: I50.33 (primary diagnosis) 2. Acute on chronic respiratory failure with hypoxia and hypercapnia (HCC) - ICD9: 518.84, 786.09, 799.02, ICD10: J96.21, J96.22 Disposition: Return in about 2 months (around 07/24/2018), or if symptoms worsen or fail to improve. Follow-up and Disposition History Recorded Encounter Status:Closed by JACK VERDUGO MD on 05/27/18 PROGRESS Observed: 05/26/2018 Status: COMPLETED Source: [place] 4:17 PM [facility] REPOSITORY O ID: [id number] Author: Citlali Carrie Boyd MANZO Service: (none) Author Type: (none) Type: Progress Notes Filed: 05/27/2018 6:16 PM Note Text: TRANSITION CARE MANAGEMENT (TCM) INITIAL CONTACT Planning Rn Outreach ? Provider Action/FYI: ? ? ? Initial contact with patient post discharge, spoke to patient. Patient identified by name and . ? TRANSITION CARE MANAGEMENT INITIAL OUTREACH DOCUMENTATION: Date of Outreach: 05/19/2018 Outreach Attempt 1: Contact Made Date of Discharge 05/17/2018 Some recent data might be hidden ? ? SUMMARY: -Pt discharged from [facility] on 05/17/18. -Admitted for: SOB and CHF ? Do you have a hospital follow up appointment with your PCP? Appointment on 05/26/18 with pcp. Appt arranged with this call. ? MEDICATIONS: Many patients have questions or concerns about their medications once they are home. Were you prescribed any new medications? If yes, what are those medications? lasix ? Were you told to hold any medications? No Were any of your medications discontinued? No ? Do you have any questions about getting or taking your medications? No ? Your discharge instructions/After visit Summary (AVS) are important in guiding you through the recovery process. Is there anything I might help you understand? No ? Do you have all the necessary equipment and supplies at home? Yes [facility] will be seeing pt 05/20/18 ? Medical records from recent hospitalization: Placed for provider to review 12 LEAD ELECTROCARDIOGRAM Observed: 05/19/2018 Status: F Source: [place] 2:41 PM [facility] REPOSITORY [facility] Cardiovascular Services [address] [place] [id number] 12 Lead EKG 05/13/18 1134 MR#: [id number] Acct: [id number] Name: EVERETT IYER Rep #: [id number] : 1945 73 From: Brice Galeano MD Attending Dr: Cristobal Robles DO Status: DIS IN Ordering Dr: Faye Segovia MD Date: 05/13/18 Location: U Sex: M C Admitted: 05/13/18 Test Reason : SOB Blood Pressure : / mmHG Vent. Rate : 076 BPM Atrial Rate : 076 BPM P-R Int : 000 ms QRS Dur : 112 ms QT Int : 446 ms P-R-T Axes : 000 015 041 degrees QTc Int : 501 ms Normal sinus rhythm Prolonged QT Abnormal ECG Confirmed by BRICE GALEANO ([id number]), editorial assistant DANIELA GUTIÉRREZ ([id number]) on 05/19/2018 2:41:27 PM Referred By: ZACHARY Confirmed By:BRICE GALEANO 05/19/18 1441 Date Brice Galeano MD CC: MD Sonido Segovia; Cristobal Robles DO; Jack Verdugo MD Signed PROGRESS Observed: 05/19/2018 Status: COMPLETED Source: [place] 10:24 AM [facility] REPOSITORY HNO ID: [id number] Author: Chyan Bran LPN Service: (none) Author Type: (none) Type: Progress Notes Filed: 05/27/2018 10:03 AM Note Text: TRANSITION CARE MANAGEMENT (TCM) INITIAL CONTACT Planning Rn Outreach Provider Action/FYI: Initial contact with patient post discharge, spoke to patient. Patient identified by name and . TRANSITION CARE MANAGEMENT INITIAL OUTREACH DOCUMENTATION: Date of Outreach: 05/19/2018 Outreach Attempt 1: Contact Made Date of Discharge 05/17/2018 Some recent data might be hidden SUMMARY: -Pt discharged from [facility] on 05/17/18. -Admitted for: SOB and CHF Do you have a hospital follow up appointment with your PCP? Appointment on 05/26/18 with pcp. Appt arranged with this call. MEDICATIONS: Many patients have questions or concerns about their medications once they are home. Were you prescribed any new medications? If yes, what are those medications? lasix Were you told to hold any medications? No Were any of your medications discontinued? No Do you have any questions about getting or taking your medications? No Your discharge instructions/After visit Summary (AVS) are important in guiding you through the recovery process. Is there anything I might help you understand? No Do you have all the necessary equipment and supplies at home? Yes [facility] will be seeing pt 05/20/18 Medical records from recent hospitalization: Placed for provider to review CNPTOUTREACH Observed: 05/19/2018 Status: COMPLETED Source: [place] 12:00 AM [facility] REPOSITORY Patient Outreach (INTMWS) EVERETT IYER ([id number]) 1945 M Date Time Provider Department 05/19/18 JACK VERDUGO INTMWS During your visit today, we recorded the following information about you: Chyna Bran LPN 05/27/2018 10:03 AM Signed TRANSITION CARE MANAGEMENT (TCM) INITIAL CONTACT Planning Rn Outreach Provider Action/FYI: Initial contact with patient post discharge, spoke to patient. Patient identified by name and . TRANSITION CARE MANAGEMENT INITIAL OUTREACH DOCUMENTATION: Date of Outreach: 05/19/2018 Outreach Attempt 1: Contact Made Date of Discharge 05/17/2018 Some recent data might be hidden SUMMARY: -Pt discharged from [facility] on 05/17/18. -Admitted for: SOB and CHF Do you have a hospital follow up appointment with your PCP? Appointment on 05/26/18 with pcp. Appt arranged with this call. MEDICATIONS: Many patients have questions or concerns about their medications once they are home. Were you prescribed any new medications? If yes, what are those medications? lasix Were you told to hold any medications? No Were any of your medications discontinued? No Do you have any questions about getting or taking your medications? No Your discharge instructions/After visit Summary (AVS) are important in guiding you through the recovery process. Is there anything I might help you understand? No Do you have all the necessary equipment and supplies at home? Yes [facility] will be seeing pt 05/20/18 Medical records from recent hospitalization: Placed for provider to review Allergies As of Date: 05/19/2018 Noted Allergy Reaction LEVAQUIN (LEVOFLOXACIN) 05/13/2007 1 - Mental Status Change NALDECON SENIOR DX (DEXTROMETHORP*02/13/2005 5 - Intolerance NORVASC (AMLODIPINE BESYLATE) 02/13/2005 5 - Intolerance Date Reviewed: 03/20/2018 Reviewed by: Antoinette Parnell [facility] - Fully Assessed Reason for Visit: Transition Of Care [4074] Prescriptions as of 05/19/2018 Sig: VENTOLIN HFA 90 MCG/ACTUATION* Inhale 2 Puffs as instructed * METFORMIN 500 MG TABLET take 1 tablet 3 times a day b* LOSARTAN 100 MG TABLET TAKE 1 TABLET EVERY DAY SPIRONOLACTONE 25 MG TABLET take 1 tablet every morning a* METOLAZONE 2.5 MG TABLET TAKE 1 TABLET EVERY DAY METOPROLOL TARTRATE 50 MG TAB* TAKE 1 TABLET EVERY MORNING a* CLOPIDOGREL 75 MG TABLET TAKE 1 TABLET EVERY DAY BUDESONIDE-FORMOTEROL HFA 160* Inhale 2 Puffs as instructed * SERTRALINE 100 MG TABLET Take 1 tablet by mouth once d* MAGNESIUM 250 MG TABLET Take 1 tablet by mouth twice * FLUTICASONE 500 MCG-SALMETERO* Inhale 1 Puff as instructed t* X INSULIN GLARGINE (U-100) 100 * Inject 30 Units subcutaneousl* TERAZOSIN 10 MG CAPSULE Take 1 capsule by mouth daily* FUROSEMIDE 80 MG TABLET take 1 tablet twice a day for* POLYETHYLENE GLYCOL 3350 17 G* use 1 (ONE) PACKET daily D* CLONIDINE 0.3 MG/24 HR WEEKLY* Apply 1 Patch as directed onc* GLIMEPIRIDE 4 MG TABLET Take 2 tablets by mouth daily* LANSOPRAZOLE 15 MG CAPSULE,DE* Take 1 capsule by mouth once * [employer] ULTRA BLUE TEST STRIP Check 4x times a day. Dx: E11* ALLOPURINOL 300 MG TABLET TAKE 1 TABLET EVERY DAY for F* NUTRITIONAL SUPPLEMENTS ORAL * Take 237 mL by mouth twice da* LORATADINE 10 MG TABLET Take 10 mg by mouth once sunny* ATORVASTATIN 80 MG TABLET Take 0.5 tablets by mouth onc* LANCETS Use four times a day Dx: E1* PEN NEEDLE, DIABETIC 31 GAUGE* 1 Each once daily. Dx: 250.00* IPRATROPIUM-ALBUTEROL 0.5 MG-* Inhale 3 mL as instructed lucille* ACETAMINOPHEN 500 MG TABLET Take 2 tablets by mouth every* FINASTERIDE 5 MG TABLET Take 1 tablet by mouth once d* FERROUS SULFATE 325 MG (65 MG* Take 1 tablet by mouth once d* ALCOHOL PREP PADS use as directed COLACE 100 MG CAPSULE Take one(1) tablet two(2) tasha* MULTIVITAMIN TABLET Take one(1) tablet daily. Problem List As Of Date 05/19/2018 Noted Resolved Unspecified Essential Hypertension [I10] INVALID FOR*12/12/2009 Esophageal Reflux [K21.9] 12/12/2009 Asthma [J45.909] Hypertension goal BP (blood pressure) < 150/90 * Other and Unspecified Hyperlipidemia [E78.5] 01/10/2010 More... DM w/o Complication Type II [E11.9] 12/13/2009 Gout, unspecified [M10.9] Obesity, Class III, BMI 40-49.9 (morbid obesity* BPH W URINARY OBS/LUTS [N40.1] INVALID FOR* OPEN WOUND KNEE/LEG-COMPL [S81.009A, S81.809A, *INVALID FOR*08/21/2008 Lymphedema of both lower extremities [I89.0] INVALID FOR* Thoracic Aneurysm without Mention of Rupture [I*INVALID FOR*12/13/2009 More... ASCVD [I25.10] INVALID FOR* More... Osteoarthritis of knee [M17.10] INVALID FOR* More... GERD [K21.9] More... More... More... More... Atelectasis/pleural effusion [J98.11] INVALID FOR*01/10/2010 More... DM type 2, uncontrolled, with neuropathy (HCC) *INVALID FOR* More... CAD (mild per cath) [I25.10] INVALID FOR*03/22/2010 More... Oliguria [R34] INVALID FOR*12/13/2009 More... Acute Renal Insufficiency [N28.9] INVALID FOR*12/27/2009 More... More... A-fib (HCC) [I48.91] INVALID FOR*03/02/2014 ARF (Acute Renal Failure) [N17.9] INVALID FOR*12/18/2009 More... Respiratory Failure, Acute [J96.00] INVALID FOR*12/18/2009 More... Leukocytosis [D72.829] INVALID FOR*12/27/2009 More... Hypernatremia [E87.0] INVALID FOR*12/27/2009 More... H/o Pericardial Effusion (moderate on d/c) [I3*INVALID FOR*01/16/2010 More... More... Anemia [D64.9] INVALID FOR*01/10/2010 More... More... H/o Fever (upon admission) [R50.9] INVALID FOR*01/12/2010 More... Malnutrition [E46] INVALID FOR*01/10/2010 More... Hyperlipidemia with target LDL less than 70 [E7*INVALID FOR* Pleural Effusion/atelectasis [J90] INVALID FOR*04/05/2013 More... Gout [M10.9] INVALID FOR*03/22/2010 More... Sepsis [A41.9] INVALID FOR*03/22/2010 More... Hypokalemia [E87.6] INVALID FOR*03/22/2010 More... Renal insufficiency [N28.9] INVALID FOR*03/22/2010 More... Ascending aortic aneurysm [I71.2] INVALID FOR*04/05/2013 Dilated aortic root [I77.810] INVALID FOR*04/05/2013 Anemia [D64.9] INVALID FOR* CKD (chronic kidney disease) stage 3, GFR 30-59*INVALID FOR* COPD (chronic obstructive pulmonary disease) (H*INVALID FOR* More... Status post aortic valve replacement with prost*INVALID FOR* CVA (cerebral vascular accident) (HCC) [I63.9] INVALID FOR*03/02/2014 More... Stasis leg ulcer (HCC) [I83.009, L97.909] INVALID FOR* Pruritic disorder [L29.9] INVALID FOR* MIKO (obstructive sleep apnea) [G47.33] INVALID FOR* Pulmonary embolus (HCC) [I26.99] INVALID FOR* Obsessive-compulsive disorder [F42.9] INVALID FOR* Acute congestive heart failure (HCC) [I50.9] INVALID FOR* Encounter Status:Closed by CHYNA BRAN LPN on 05/27/18 Observed: 05/17/2018 Status: F Source: [facility] OCCULT BLOOD 3:45 PM [facility] IFOB REPOSITORY STOB iFOB Occult Blood Positive ORGANISM 1: OCCULT BLOOD POSITIVE Performed By: #### M100.7900 #### [facility] [address] [place], [address] DISCHARGE SUMMARY Observed: 05/17/2018 Status: F Source: [place] 1:01 PM [facility] REPOSITORY [facility] Medical Records Department [address] [place] [address] Discharge Summary 05/17/18 1251 MR#: [id number] Acct: [id number] Name: EVERETT IYER Rep #: [id number] : 1945 73 From: Cristobal Robles DO PCP: Jack Verdugo MD Status: ADM IN Y Location: [place] [address] Discharge Date and Diagnosis - Problem List Patient Problems: Active and Suspected Problems (Last Updated 05/13/18 @ 14:31 by Varun Aguilar DO) Shortness of breath (Acute) Acute on chronic diastolic heart failure (Acute) Date of Admission: 05/13/18 Date of Discharge: 05/17/18 - Primary Discharge Diagnosis Active and Suspected Problems (Last Updated 05/13/18 @ 14:31 by Varun Aguilar DO) Shortness of breath (Acute) - Secondary Discharge Diagnosis Chronic Problems (Last Updated 05/13/18 @ 14:31 by Varun Aguilar DO) Chronic diastolic heart failure (Chronic) History of repair of thoracic aortic aneurysm (Chronic 12/11/09) Thoracic aortic aneurysm without rupture (Chronic) Status post ascending and proximal arch aneurysm replaced with a Hemashield graft and shayan-arch repair; Venous stasis dermatitis (Chronic) Anemia (Chronic) Osteoarthritis (Chronic) Coronary artery disease (Chronic) Lymphedema (Chronic) Hyperlipidemia (Chronic) Super obesity (Chronic) Gout (Chronic) Depression (Chronic) Ulcer of right lower extremity with fat layer exposed (Chronic) Ulcer of left lower extremity with fat layer exposed (Chronic) Bilateral leg edema (Chronic) Tinea unguium (Chronic) Diabetes mellitus with neuropathy (Chronic) Delayed wound healing (Chronic) Open wound, lower leg (Chronic) CKD (chronic kidney disease), stage II (Chronic) Wheezing (Chronic) MIKO (obstructive sleep apnea) (Chronic) BiPAP 18/12 cm of water HTN (hypertension) (Chronic) BPH (benign prostatic hypertrophy) (Chronic) Tinea unguium (Chronic) Diabetes mellitus with neuropathy (Chronic) Edema of both legs (Chronic) Lymphedema of leg (Chronic) Multiple excoriations (Chronic) Asthma (Chronic) COPD (chronic obstructive pulmonary disease) (Chronic) FEV1 58% Arthritis (Chronic) Immobility (Chronic) Pulmonary embolism on right (Chronic) Adynamic ileus (Chronic) Ventral hernia (Chronic) Hypoglycemia (Chronic) Peripheral neuropathy (Chronic) Chronic anemia (Chronic) Benign prostatic hypertrophy without urinary obstruction (Chronic) CKD (chronic kidney disease), stage II (Chronic) CAD (coronary artery disease) (Chronic) Type II diabetes mellitus (Chronic) GERD (gastroesophageal reflux disease) (Chronic) Hypercholesteremia (Chronic) Morbid obesity (Chronic) Pulmonary hypertension (Chronic) H/O aortic valve replacement (Chronic 12/11/09) # 29 Freestyle valve Venous insufficiency (Chronic) Hospital Course and Treatment Imaging Results: Clinical Impression(s) from Imaging Studies Chest X-Ray 05/13/18 11:31 IMPRESSION: CHF. Small bilateral pleural effusions right greater than left with bibasilar atelectasis worse on the right side. Cardiomegaly. Electronically Signed: Gab Ruth MD at 13:35 EST Tel [phone], Service support , Consultations 05/13/18 15:44 Consult: Onc/Wound/family practitioner Routine Comment: Operations: None Procedures: None Summary of Care Provided: The patient is a 73 year old M presents with shortness of breath through the previous day. Patient was found to be in CHF again. Patient was put on IV Lasix and diuresed well. Patient's initial weight was 68.1 kg. On discharge it was 153.1 kg. That appears to be around his lowest weight that we have on record here. Patient still does have some edema but does not this necessitate further inpatient management of this. Patient will be discharged with addition of Lasix in addition to his metolazone and spironolactone. Patient will have outpatient lab work to assess his CBC and BMP. Patient did test positive for iron deficiency anemia and this will need to be further evaluated as outpatient. Patient did receive a one-time dose of Venofer. Patient will continue with the ferrous sulfate 325 twice daily. Would recommend patient follow-up with gastroenterology if not done so already. [] Patient Problems: Active and Suspected Problems (Last Updated 05/13/18 @ 14:31 by Varun Aguilar DO) Shortness of breath (Acute) Acute on chronic diastolic heart failure (Acute) - Physical Exam General: Alert, Cooperative, No apparent distress, - - No respiratory distress HEENT: Atraumatic, Normocephalic Oral: Moist Mucosa, No Gingival or Mucosal Lesions/ Ulcerations Neck: No Nodes, Thyroid Normal Size and Texture Lungs: Clear to auscultation, Diminished Cardiovascular: Regular rate, Regular Rhythm, Normal S1, Normal S2 Abdomen: Obese Extremities: No Calf Tenderness, Edema Vital Signs Temp Pulse Resp BP Pulse Ox 36.6 C 68 18 148/70 H 98 05/17/18 09:07 05/17/18 12:37 05/17/18 09:07 05/17/18 09:12 05/17/18 09:07 Oxygen Flow Rate (L/min) 4 Oxygen Delivery Method Nasal Cannula Weight: 153.1 kg Body Mass Index (BMI) 55.0 Finger Stick Blood Glucose 132 Intake and Output for Last 24 Hours Intake Total 1640 / 1640 1340 / 1340 200 / 200 Output Total 2800 / 2800 3475 / 3475 445 / 445 Balance -1160 / -1160 -2135 / -2135 -245 / -245 Microbiology Past 72 Hours 05/13/18 12:45 Urine Culture - Final Urine Catheter - Catheter Culture exhibits no growth. Laboratory Tests Past 24 Hrs WBC 7.1 RBC 3.24 L Hgb 7.9 L Hct 27.8 L MCV 85.8 MCH 24.4 L MCHC 28.4 L POC Glucose POC Glucose 148 H 112 H 184 H Discharge Diet: No Restrictions Discharge Activity: Return to Normal Activity Call your doctor if you observe: Shortness of breath, Chest pain Home Medications: Medications to take at Discharge Allopurinol [Zyloprim] 300 mg PO DAILY 03/30/17 Clonidine Patch [Catapres-Tts3] 0.3 mg TOPICAL FR 03/30/17 Clopidogrel Bisulfate [Plavix] 75 mg PO DAILY 03/30/17 Finasteride [Proscar] 5 mg PO DAILY 03/30/17 Glimepiride [Amaryl] 8 mg PO BREAKFAST 03/30/17 Magnesium Oxide [Mag-Ox 400] 400 mg PO BID 03/30/17 Metoprolol Tartrate [Lopressor (beta maryam)] 50 mg PO BID 03/30/17 Multivitamins,Therapeutic [Multivitamin] 1 tab PO DAILY@0800 03/30/17 Sertraline HCl [Zoloft] 50 mg PO QHS 03/30/17 Docusate Sodium [Colace] 100 mg PO DAILY PRN PRN 12/09/17 Nystatin Powder [Mycostatin Powder] 1 applic TOPICAL BID PRN PRN 12/09/17 Olanzapine [Zyprexa] 2.5 mg PO DAILY 12/09/17 Ferrous Sulfate 325 mg PO BIDCM tab 12/14/17 acetaminophen 500 mg tablet 1,000 mg PO Q8H PRN PRN tab 12/29/17 tiotropium bromide 2.5 mcg/actuation mist for inhalation 2 puff INHALATION QDAY 12/29/17 budesonide-formoterol HFA 160 mcg-4.5 mcg/actuation aerosol inhaler 2 puff INHALATION BID 04/06/18 buspirone 10 mg tablet 10 mg PO BID 04/06/18 guaifenesin ER 1,200 mg tablet, extended release 12 hr 1,200 mg PO BID tab 04/06/18 insulin glargine (U-100) 100 unit/mL (3 mL) subcutaneous pen 30 unit PO BID ml 04/06/18 metformin 500 mg tablet 500 mg PO BID tab 04/06/18 metolazone 2.5 mg tablet 2.5 mg PO DAILY tab 04/06/18 fluticasone 500 mcg-salmeterol 50 mcg/dose blistr powdr for inhalation 1 inh INHALATION BID #60 ea 04/23/18 montelukast 10 mg tablet 10 mg PO QPM #30 tab 04/23/18 Atorvastatin Calcium [Lipitor] 40 mg PO QHS 05/13/18 Lansoprazole 15 mg PO DAILY 05/13/18 Loratadine 10 mg PO DAILY 05/13/18 Spironolactone 25 mg PO BID 05/13/18 Terazosin HCl 10 mg PO QHS 05/13/18 Furosemide [Lasix] 40 mg PO BIDLX #30 tablet 05/17/18 Following Prescrptions Were Given to Patient: Furosemide [Lasix] 40 mg PO BIDLX #30 tablet Other Amb Orders: Basic Metabolic Profile (BMP) Time Frame: 1 Week, Location: Laboratory Primary Care Physician: Jack Verdugo MD [Primary Care Provider] - Within 1 Week Please Follow Up With: [facility] When: 2-3 weeks Medical Necessity - Tobacco Use Smoking Status: Former smoker Tobacco Use: Cigarettes Meaningful Use Info Meaningful Use Diagnoses (Choose all that apply): CHF - CHF MIKE/ARB ordered at discharge?: Yes Documented LVEF (%): 60 Code Visit Inpatient E AND M: [id number] Disch Hosp 05/17/18 1301 <Electronically signed by Cristobal Robles DO> Date Cristobal Robles DO Cosigner Signature (if applicable): Date CC: Cristobal Robles DO; Jack Verdugo MD Signed DISCHARGE INSTRUCTION Observed: 05/17/2018 Status: F Source: [place] 12:51 PM [facility] REPOSITORY [facility] Medical Records Department [address] [place] [id number] Instructions for Home/Discharge Instructions 05/17/18 1248 MR#: [id number] Acct: [id number] Name: EVERETT IYER Rep #: [id number] : 1945 73 From: Cristobal Robles DO PCP: Jack Verdugo MD Status: ADM IN - Discharge Diagnoses Current Active Problems: Current Active and Chronic Problems (Last Updated 05/13/18 @ 14:31 by Varun Aguilar DO) Shortness of breath (Acute) You will use the following diet at home:: Calorie/Carbohydrate Controlled (specify 1200, 1400, etc) - 1800 calories/day, Fluid restricted (specify 2000 mls, 1500 mls) - 1500 cc/day Your food should be the consistency of: Regular Your liquids should be the consistency of: Regular/Thin Discharge Activity: Return to Normal Activity Call your doctor if you observe: Shortness of breath, Chest pain Additional Instructions: Daily weights. Keep record of weights. Notify physician of greater than 2 pound weight gain in 1 day or 3 pound weight gain in 1 week. Allergies/Adverse Reactions: Allergies naphazoline HCl [From Naphcon] Allergy (Severe, Verified 04/06/18 15:53) affected his breathing AFFECTED HIS BREATHING amlodipine besylate [From Norvasc] Allergy (Verified 04/06/18 15:53) Other dextromethorphan Allergy (Verified 04/06/18 15:53) Other levofloxacin [From Levaquin] Adverse Reaction (Mild, Verified 04/06/18 15:53) made me hyperactive made me hyperactive Medications to take at Discharge Allopurinol [Zyloprim] 300 mg PO DAILY 03/30/17 Clonidine Patch [Catapres-Tts3] 0.3 mg TOPICAL FR 03/30/17 Clopidogrel Bisulfate [Plavix] 75 mg PO DAILY 03/30/17 Finasteride [Proscar] 5 mg PO DAILY 03/30/17 Glimepiride [Amaryl] 8 mg PO BREAKFAST 03/30/17 Magnesium Oxide [Mag-Ox 400] 400 mg PO BID 03/30/17 Metoprolol Tartrate [Lopressor (beta maryam)] 50 mg PO BID 03/30/17 Multivitamins,Therapeutic [Multivitamin] 1 tab PO DAILY@0800 03/30/17 Sertraline HCl [Zoloft] 50 mg PO QHS 03/30/17 Docusate Sodium [Colace] 100 mg PO DAILY PRN PRN 12/09/17 Nystatin Powder [Mycostatin Powder] 1 applic TOPICAL BID PRN PRN 12/09/17 Olanzapine [Zyprexa] 2.5 mg PO DAILY 12/09/17 Ferrous Sulfate 325 mg PO BIDCM tab 12/14/17 acetaminophen 500 mg tablet 1,000 mg PO Q8H PRN PRN tab 12/29/17 tiotropium bromide 2.5 mcg/actuation mist for inhalation 2 puff INHALATION QDAY 12/29/17 budesonide-formoterol HFA 160 mcg-4.5 mcg/actuation aerosol inhaler 2 puff INHALATION BID 04/06/18 buspirone 10 mg tablet 10 mg PO BID 04/06/18 guaifenesin ER 1,200 mg tablet, extended release 12 hr 1,200 mg PO BID tab 04/06/18 insulin glargine (U-100) 100 unit/mL (3 mL) subcutaneous pen 30 unit PO BID ml 04/06/18 metformin 500 mg tablet 500 mg PO BID tab 04/06/18 metolazone 2.5 mg tablet 2.5 mg PO DAILY tab 04/06/18 fluticasone 500 mcg-salmeterol 50 mcg/dose blistr powdr for inhalation 1 inh INHALATION BID #60 ea 04/23/18 montelukast 10 mg tablet 10 mg PO QPM #30 tab 04/23/18 Atorvastatin Calcium [Lipitor] 40 mg PO QHS 05/13/18 Lansoprazole 15 mg PO DAILY 05/13/18 Loratadine 10 mg PO DAILY 05/13/18 Spironolactone 25 mg PO BID 05/13/18 Terazosin HCl 10 mg PO QHS 05/13/18 Furosemide [Lasix] 40 mg PO BIDLX #30 tablet 05/17/18 The following prescriptions were given: Furosemide [Lasix] 40 mg PO BIDLX #30 tablet Orders to be completed after discharge: Basic Metabolic Profile (BMP) Time Frame: 1 Week, Location: Laboratory Primary Care Physician: Jack Verdugo MD [Primary Care Provider] - Within 1 Week Test Results: Test results from this visit will be discussed in further detail at your follow-up appointment, if applicable. Please Follow Up With: [facility] When: 2-3 weeks Proposed Discharge Date: 05/17/18 05/17/18 1251 <Electronically signed by Cristobal Robles DO> Date Cristobal Robles DO CC: Jack Verdugo MD Signed BEDSIDE GLUCOSE Collected: 05/17/2018 Status: F Source: [place] 11:20 AM [facility] REPOSITORY TYPE CODE TESTS RESULT OUT OF REFERENCE UNITS RANGE LAB L501.080 70-110 mg/dL High BEDSIDE GLU 148 Result Comment: MANAGEMENT OF PATIENT CARE PER NURSING PROTOCOL Performed By: #### L501.080 #### [facility] Point of Care [address] [place] [address] BEDSIDE GLUCOSE Collected: 05/17/2018 Status: F Source: [place] 8:04 AM [facility] REPOSITORY TYPE CODE TESTS RESULT OUT OF REFERENCE UNITS RANGE LAB L501.080 70-110 mg/dL High BEDSIDE GLU 112 Result Comment: MANAGEMENT OF PATIENT CARE PER NURSING PROTOCOL Performed By: #### L501.080 #### [facility] Point of Care [address] [place] [address] CBC-COMPLETE BLOOD CNT Collected: 05/17/2018 Status: F Source: [place] NO DIFF 5:35 AM [facility] REPOSITORY TYPE CODE TESTS RESULT OUT OF RANGE REFERENCE UNITS LAB L100.1000 4.4-11.0 K/mm3 Normal WBC 7.1 LAB L100.1200 4.6-6.2 M/mm3 Low RBC 3.24 LAB L100.1300 13.0-16.5 g/dl Low HGB 7.9 LAB L100.1400 40-54 % Low HCT 27.8 LAB L100.1500 80-94 fL Normal MCV 85.8 LAB L100.1600 27.0-32.0 pg Low MCH 24.4 LAB L100.1700 32-36 g/gl Low MCHC 28.4 LAB L100.1810 11.6-14.6 % High RDW CV 15.2 LAB L100.1820 35.1-43.9 fl High RDW SD 45.6 LAB L100.1900 150-450 K/mm3 Normal PLT 294 LAB L100.2000 6.2-12.0 fl Normal MPV 9.2 Performed By: #### L100.0500 #### [facility] [address] [place], [place], [id number] BASIC METABOLIC Collected: 05/17/2018 Status: F Source: [place] PROFILE (BMP) 5:35 AM [facility] REPOSITORY TYPE CODE TESTS RESULT OUT OF RANGE REFERENCE UNITS LAB L501.0100 74-106 mg/dL High GLU 114 Result Comment: Fasting Glucose result from 100 to 125 mg/dL suggests IMPAIRED HOMEOSTASIS per A.D.A. criteria. Please note revised GLUCOSE reference range effective 2017. LAB L501.1000 7-18 mg/dL High BUN 38 LAB L501.1100 0.70-1.30 mg/dL High CREAT,SERUM 1.32 Result Comment: The validity of the calculated GFR AND GFRAA in patients over 70 years has not been determined. Clinical correlation is essential. LAB L501.1110 >60 mL/min Low EST GFR 56 Result Comment: Non- GFR Calc LAB L501.1115 >60 mL/min Normal EST GFR - AA 68 Result Comment: GFR Calc LAB L501.1255 ml/min Normal Estimated CRCL 46.78 LAB L501.1300 10-20 RATIO High BUN/CRE 28.8 LAB L501.2200 8.5-10 mg/dL Low .1 CA 8.4 LAB L501.5300 136-14 mmol/L Low 5 NA 133 LAB L501.5600 3.5-5. mmol/L Normal 1 K 4.4 Result Comment: Slight Hemolysis, Result may be falsely increased. LAB L501.5900 98-107 mmol/L Low CL 89 LAB L501.6100 21.0-32.0 mmol/L High CO2 40.0 LAB L501.6200 5-15 Low GAP 4 Performed By: #### L500.2500, L501.5200 #### [facility] [address] [facility] [place], [address] MAGNESIUM Collected: 05/17/2018 Status: F Source: [place] 5:35 AM [facility] REPOSITORY TYPE CODE TESTS RESULT OUT OF RANGE REFERENCE UNITS LAB L501.5200 1.6-2.6 mg/dL High MG 2.9 Result Comment: Slight Hemolysis, Result may be falsely increased. Performed By: #### L500.2500, L501.5200 #### [facility] [address] [facility] [place], [address] BEDSIDE GLUCOSE Collected: 05/16/2018 Status: F Source: [place] 9:25 PM [facility] REPOSITORY TYPE CODE TESTS RESULT OUT OF REFERENCE UNITS RANGE LAB L501.080 70-110 mg/dL High BEDSIDE GLU 184 Result Comment: MANAGEMENT OF PATIENT CARE PER NURSING PROTOCOL Performed By: #### L501.080 #### [facility] Point of Care [address] [facility]. [place], [place] [address] CBC-COMPLETE BLOOD CNT Collected: 05/16/2018 Status: F Source: [place] NO DIFF 5:47 AM [facility] REPOSITORY TYPE CODE TESTS RESULT OUT OF RANGE REFERENCE UNITS LAB L100.1000 4.4-11.0 K/mm3 Normal WBC 6.2 LAB L100.1200 4.6-6.2 M/mm3 Low RBC 3.43 LAB L100.1300 13.0-16.5 g/dl Low HGB 8.2 LAB L100.1400 40-54 % Low HCT 28.7 LAB L100.1500 80-94 fL Normal MCV 83.7 LAB L100.1600 27.0-32.0 pg Low MCH 23.9 LAB L100.1700 32-36 g/gl Low MCHC 28.6 LAB L100.1810 11.6-14.6 % High RDW CV 15.4 LAB L100.1820 35.1-43.9 fl High RDW SD 47.5 LAB L100.1900 150-450 K/mm3 Normal PLT 245 LAB L100.2000 6.2-12.0 fl Normal MPV 8.7 Performed By: #### L100.0500 #### [facility] [address] [place], [place] [address] [place], [place], [address] BASIC METABOLIC Collected: 05/16/2018 Status: F Source: [place] PROFILE (BMP) 5:47 AM [facility] REPOSITORY TYPE CODE TESTS RESULT OUT OF RANGE REFERENCE UNITS LAB L501.0100 74-106 mg/dL Normal GLU 95 Result Comment: Please note revised GLUCOSE reference range effective 2017. LAB L501.1000 7-18 mg/dL High BUN 29 LAB L501.1100 0.70-1.30 mg/dL Normal CREAT,SERUM 1.26 Result Comment: The validity of the calculated GFR AND GFRAA in patients over 70 years has not been determined. Clinical correlation is essential. LAB L501.1110 >60 mL/min Low EST GFR 59 Result Comment: Non- GFR Calc LAB L501.1115 >60 mL/min Normal EST GFR - AA 72 Result Comment: GFR Calc LAB L501.1255 ml/min Normal Estimated CRCL 49.01 LAB L501.1300 10-20 RATIO High BUN/CRE 23.0 LAB L501.2200 8.5-10 mg/dL Normal .1 CA 8.6 LAB L501.5300 136-14 mmol/L Low 5 NA 135 LAB L501.5600 3.5-5. mmol/L Normal 1 K 3.8 LAB L501.5900 98-107 mmol/L Low CL 89 LAB L501.6100 21.0-3 mmol/L High 2.0 CO2 41.0 LAB L501.6200 5-15 Normal GAP 5 Performed By: #### L500.2500 #### [facility] [address] [place], [address] BEDSIDE GLUCOSE Collected: 05/15/2018 Status: F Source: [place] 9:20 PM [facility] REPOSITORY TYPE CODE TESTS RESULT OUT OF REFERENCE UNITS RANGE LAB L501.080 70-110 mg/dL High BEDSIDE GLU 218 Result Comment: MANAGEMENT OF PATIENT CARE PER NURSING PROTOCOL Performed By: #### L501.080 #### [facility] Point of Care [address] [place] [address] BEDSIDE GLUCOSE Collected: 05/15/2018 Status: F Source: [place] 6:46 AM [facility] REPOSITORY TYPE CODE TESTS RESULT OUT OF REFERENCE UNITS RANGE LAB L501.080 70-110 mg/dL High BEDSIDE GLU 144 Result Comment: MANAGEMENT OF PATIENT CARE PER NURSING PROTOCOL Performed By: #### L501.080 #### [facility] Point of Care [address] [place] [address] CBC-COMPLETE BLOOD CNT Collected: 05/15/2018 Status: F Source: [place] NO DIFF 5:58 AM [facility] REPOSITORY TYPE CODE TESTS RESULT OUT OF RANGE REFERENCE UNITS LAB L100.1000 4.4-11.0 K/mm3 Normal WBC 6.8 LAB L100.1200 4.6-6.2 M/mm3 Low RBC 3.25 LAB L100.1300 13.0-16.5 g/dl Low HGB 7.8 LAB L100.1400 40-54 % Low HCT 27.5 LAB L100.1500 80-94 fL Normal MCV 84.6 LAB L100.1600 27.0-32.0 pg Low MCH 24.0 LAB L100.1700 32-36 g/gl Low MCHC 28.4 LAB L100.1810 11.6-14.6 % High RDW CV 15.2 LAB L100.1820 35.1-43.9 fl High RDW SD 45.9 LAB L100.1900 150-450 K/mm3 Normal PLT 276 LAB L100.2000 6.2-12.0 fl Normal MPV 8.7 Performed By: #### L100.0500 #### [facility] [address] [facility] [place], [address] BASIC METABOLIC Collected: 05/15/2018 Status: F Source: [place] PROFILE ([facility]) 5:58 AM [facility] REPOSITORY TYPE CODE TESTS RESULT OUT OF RANGE REFERENCE UNITS LAB L501.0100 74-106 mg/dL High GLU 164 Result Comment: Fasting Glucose result greater than or equal to 126 mg/dL suggests DIABETES MELLITUS per A.D.A. criteria. Please note revised GLUCOSE reference range effective 2017. LAB L501.1000 7-18 mg/dL High BUN 26 LAB L501.1100 0.70-1.30 mg/dL High CREAT,SERUM 1.35 Result Comment: The validity of the calculated GFR AND GFRAA in patients over 70 years has not been determined. Clinical correlation is essential. LAB L501.1110 >60 mL/min Low EST GFR 55 Result Comment: Non- GFR Calc LAB L501.1115 >60 mL/min Normal EST GFR - AA 66 Result Comment: GFR Calc LAB L501.1255 ml/min Normal Estimated CRCL 45.74 LAB L501.1300 10-20 RATIO Normal BUN/CRE 19.3 LAB L501.2200 8.5-10 mg/dL Normal .1 CA 8.5 LAB L501.5300 136-14 mmol/L Normal 5 NA 138 LAB L501.5600 3.5-5. mmol/L Normal 1 K 4.0 LAB L501.5900 98-107 mmol/L Low CL 89 LAB L501.6100 21.0-3 mmol/L High 2.0 CO2 42.0 LAB L501.6200 5-15 Normal GAP 7 Performed By: #### L500.2500 #### [facility] [address] [facility] [place], [address] BEDSIDE GLUCOSE Collected: 05/15/2018 Status: F Source: [place] 3:57 AM [facility] REPOSITORY TYPE CODE TESTS RESULT OUT OF REFERENCE UNITS RANGE LAB L501.080 70-110 mg/dL High BEDSIDE GLU 179 Result Comment: MANAGEMENT OF PATIENT CARE PER NURSING PROTOCOL Performed By: #### L501.080 #### [facility] Point of Care [address] [place] [address] BEDSIDE GLUCOSE Collected: 05/15/2018 Status: F Source: [place] 2:36 AM [facility] REPOSITORY TYPE CODE TESTS RESULT OUT OF REFERENCE UNITS RANGE LAB L501.080 70-110 mg/dL High BEDSIDE GLU 144 Result Comment: MANAGEMENT OF PATIENT CARE PER NURSING PROTOCOL Performed By: #### L501.080 #### [facility] Point of Care [address] [place] [address] BEDSIDE GLUCOSE Collected: 05/15/2018 Status: F Source: [place] 1:50 AM [facility] REPOSITORY TYPE CODE TESTS RESULT OUT OF REFERENCE UNITS RANGE LAB L501.080 70-110 mg/dL Low alert BEDSIDE GLU 36 Result Comment: MANAGEMENT OF PATIENT CARE PER NURSING PROTOCOL Performed By: #### L501.080 #### [facility] Point of Care [address] [place] [address] BEDSIDE GLUCOSE Collected: 05/14/2018 Status: F Source: [place] 9:32 PM [facility] REPOSITORY TYPE CODE TESTS RESULT OUT OF RANGE REFERENCE UNITS LAB L501.080 70-110 mg/dL Normal BEDSIDE GLU 70 Result Comment: MANAGEMENT OF PATIENT CARE PER NURSING PROTOCOL Performed By: #### L501.080 #### [facility] Point of Care [address] [place] [address] FERRITIN Collected: 05/14/2018 Status: F Source: [place] 6:41 PM [facility] REPOSITORY TYPE CODE TESTS RESULT OUT OF RANGE REFERENCE UNITS LAB L503.6550 26-388 ng/mL Normal FERRITIN 59 Performed By: #### L503.6550 #### [facility] [address] [place], [address] BEDSIDE GLUCOSE Collected: 05/14/2018 Status: F Source: [place] 6:11 PM [facility] REPOSITORY TYPE CODE TESTS RESULT OUT OF RANGE REFERENCE UNITS LAB L501.080 70-110 mg/dL Normal BEDSIDE GLU 102 Result Comment: MANAGEMENT OF PATIENT CARE PER NURSING PROTOCOL Performed By: #### L501.080 #### [facility] Point of Care [address] [place] [address] BEDSIDE GLUCOSE Collected: 05/14/2018 Status: F Source: [place] 5:22 PM [facility] REPOSITORY TYPE CODE TESTS RESULT OUT OF REFERENCE UNITS RANGE LAB L501.080 70-110 mg/dL Low BEDSIDE GLU 62 Result Comment: MANAGEMENT OF PATIENT CARE PER NURSING PROTOCOL Performed By: #### L501.080 #### [facility] Point of Care [address] [place] [address] BEDSIDE GLUCOSE Collected: 05/14/2018 Status: F Source: [place] 4:59 PM [facility] REPOSITORY TYPE CODE TESTS RESULT OUT OF REFERENCE UNITS RANGE LAB L501.080 70-110 mg/dL Low alert BEDSIDE GLU 41 Result Comment: MANAGEMENT OF PATIENT CARE PER NURSING PROTOCOL Performed By: #### L501.080 #### [facility] Point of Care [address] [place] [address] BEDSIDE GLUCOSE Collected: 05/14/2018 Status: F Source: [place] 3:01 PM [facility] REPOSITORY TYPE CODE TESTS RESULT OUT OF RANGE REFERENCE UNITS LAB L501.080 70-110 mg/dL Normal BEDSIDE GLU 72 Result Comment: MANAGEMENT OF PATIENT CARE PER NURSING PROTOCOL Performed By: #### L501.080 #### [facility] Point of Care [address] [place] [address] BEDSIDE GLUCOSE Collected: 05/14/2018 Status: F Source: [place] 2:32 PM [facility] REPOSITORY TYPE CODE TESTS RESULT OUT OF REFERENCE UNITS RANGE LAB L501.080 70-110 mg/dL Low alert BEDSIDE GLU 34 Result Comment: Snack Given MANAGEMENT OF PATIENT CARE PER NURSING PROTOCOL Performed By: #### L501.080 #### [facility] Point of Care [address] [place] [address] TYPE AND SCREEN Collected: 05/14/2018 Status: F Source: [place] 1:50 PM [facility] REPOSITORY Order Comment: CMV NEG? N Number of units to transfuse: 1 Reason for Ordering Blood: Acute Are the blood/blood products to be transfused? Y Is the patient having/had surgery? N Give When? When Ready Irradiated? N Leukodepleted? Y TYPE CODE TESTS RESULT OUT OF RANGE REFERENCE UNITS LAB B10.0800 A Normal BLOOD TYPE GEL POSITIVE LAB B100.4000 Normal Antibody NEGATIVE Screen Performed By: #### B101.7450 #### [facility] [address] [place], [address] RC Collected: 05/14/2018 Status: F Source: [place] 1:50 PM [facility] REPOSITORY TYPE CODE TESTS RESULT OUT OF REFERENCE UNITS RANGE LAB U100.0000 [id number] TRANSFUSED PRODUCT: T AND S with Crossmatch, Red Cells COUNT: 1 Performed By: #### U100.0000 #### Non-[facility] - refer to report for specific site BEDSIDE GLUCOSE Collected: 05/14/2018 Status: F Source: [place] 12:48 PM [facility] REPOSITORY TYPE CODE TESTS RESULT OUT OF RANGE REFERENCE UNITS LAB L501.080 70-110 mg/dL Normal BEDSIDE GLU 97 Result Comment: MANAGEMENT OF PATIENT CARE PER NURSING PROTOCOL Performed By: #### L501.080 #### [facility] Point of Care [address] [place] [address] BEDSIDE GLUCOSE Collected: 05/14/2018 Status: F Source: [place] 12:05 PM [facility] REPOSITORY TYPE CODE TESTS RESULT OUT OF REFERENCE UNITS RANGE LAB L501.080 70-110 mg/dL Low BEDSIDE GLU 49 Result Comment: MANAGEMENT OF PATIENT CARE PER NURSING PROTOCOL Performed By: #### L501.080 #### [facility] Point of Care [address] [place] [address] BEDSIDE GLUCOSE Collected: 05/14/2018 Status: F Source: [place] 6:42 AM [facility] REPOSITORY TYPE CODE TESTS RESULT OUT OF RANGE REFERENCE UNITS LAB L501.080 70-110 mg/dL Normal BEDSIDE GLU 99 Result Comment: MANAGEMENT OF PATIENT CARE PER NURSING PROTOCOL Performed By: #### L501.080 #### [facility] Point of Care [address] [place], [place] [id number] BASIC METABOLIC Collected: 05/14/2018 Status: F Source: [place] PROFILE (BMP) 6:05 AM [facility] REPOSITORY TYPE CODE TESTS RESULT OUT OF RANGE REFERENCE UNITS LAB L501.0100 74-106 mg/dL Normal GLU 91 Result Comment: Please note revised GLUCOSE reference range effective 2017. LAB L501.1000 7-18 mg/dL High BUN 21 LAB L501.1100 0.70-1.30 mg/dL Normal CREAT,SERUM 1.18 Result Comment: The validity of the calculated GFR AND GFRAA in patients over 70 years has not been determined. Clinical correlation is essential. LAB L501.1110 >60 mL/min Normal EST GFR 64 Result Comment: Non- GFR Calc LAB L501.1115 >60 mL/min Normal EST GFR - AA 77 Result Comment: GFR Calc LAB L501.1255 ml/min Normal Estimated CRCL 52.33 LAB L501.1300 10-20 RATIO Normal BUN/CRE 17.8 LAB L501.2200 8.5-10 mg/dL Low .1 CA 8.4 LAB L501.5300 136-14 mmol/L Normal 5 NA 141 LAB L501.5600 3.5-5. mmol/L Normal 1 K 3.5 LAB L501.5900 98-107 mmol/L Low CL 96 LAB L501.6100 21.0-3 mmol/L High 2.0 CO2 38.0 LAB L501.6200 5-15 Normal GAP 7 Performed By: #### L500.2500 #### [facility] [address] [place], [address] CBC W/DIFF, AUTOMATED Collected: 05/14/2018 Status: F Source: [place] 6:05 AM [facility] REPOSITORY TYPE CODE TESTS RESULT OUT OF RANGE REFERENCE UNITS LAB L100.1000 4.4-11.0 K/mm3 Normal WBC 6.1 LAB L100.1200 4.6-6.2 M/mm3 Low RBC 2.82 LAB L100.1300 13.0-16.5 g/dl Low HGB 6.6 LAB L100.1400 40-54 % Low HCT 22.9 LAB L100.1500 80-94 fL Normal MCV 81.2 LAB L100.1600 27.0-32.0 pg Low MCH 23.4 LAB L100.1700 32-36 g/gl Low MCHC 28.8 LAB L100.1810 11.6-14.6 % High RDW CV 15.1 LAB L100.1820 35.1-43.9 fl High RDW SD 45.2 LAB L100.1900 150-450 K/mm3 Normal PLT 243 LAB L100.2000 6.2-12.0 fl Normal MPV 8.5 LAB L100.2100 47-70 % High NEUT% 79.4 LAB L100.2200 19-41 % Low LY% 6.7 LAB L100.2300 0-10 % High MONO% 10.8 LAB L100.2400 0-5 % Normal EO% 2.6 LAB L100.2500 0-1 % Normal BASO% 0.3 LAB L100.2550 0.0-0.9 % Normal IM GRAN % 0.200 Result Comment: IG% - Immature Granulocytes (promyelocytes, myelocytes and metamyelocytes) > 1% indicates that a LEFT SHIFT is Present. LAB L100.2620 2.0-7.7 X10 3/uL Normal Absolute Neut 4.9 LAB L100.2720 0.83-4.51 X10 3/ul Low Absolute Lymph 0.41 LAB L100.4500 Normal SMEAR COMMENT SCAN LAB L100.5500 ADEQ Normal PLT EST ADEQUATE LAB L100.5650 Normal PLT MORPH LARGE Performed By: #### L100.0100 #### [facility] [address] [place], [place], [id number] BEDSIDE GLUCOSE Collected: 05/14/2018 Status: F Source: [place] 3:41 AM [facility] REPOSITORY TYPE CODE TESTS RESULT OUT OF RANGE REFERENCE UNITS LAB L501.080 70-110 mg/dL Normal BEDSIDE GLU 72 Result Comment: MANAGEMENT OF PATIENT CARE PER NURSING PROTOCOL Performed By: #### L501.080 #### [facility] Point of Care [address] [place] [address] BEDSIDE GLUCOSE Collected: 05/14/2018 Status: F Source: [place] 12:59 AM [facility] REPOSITORY TYPE CODE TESTS RESULT OUT OF RANGE REFERENCE UNITS LAB L501.080 70-110 mg/dL Normal BEDSIDE GLU 80 Result Comment: MANAGEMENT OF PATIENT CARE PER NURSING PROTOCOL Performed By: #### L501.080 #### [facility] Point of Care [address] [place] [address] BEDSIDE GLUCOSE Collected: 05/13/2018 Status: F Source: MARK 11:38 PM [facility] REPOSITORY TYPE CODE TESTS RESULT OUT OF RANGE REFERENCE UNITS LAB L501.080 70-110 mg/dL Normal BEDSIDE GLU 87 Result Comment: MANAGEMENT OF PATIENT CARE PER NURSING PROTOCOL Performed By: #### L501.080 #### [facility] Point of Care [address] [place] [address] BEDSIDE GLUCOSE Collected: 05/13/2018 Status: F Source: [place] 11:11 PM [facility] REPOSITORY TYPE CODE TESTS RESULT OUT OF RANGE REFERENCE UNITS LAB L501.080 70-110 mg/dL Normal BEDSIDE GLU 87 Result Comment: MANAGEMENT OF PATIENT CARE PER NURSING PROTOCOL Performed By: #### L501.080 #### [facility] Point of Care [address] [place] [address] BEDSIDE GLUCOSE Collected: 05/13/2018 Status: F Source: [place] 10:45 PM [facility] REPOSITORY TYPE CODE TESTS RESULT OUT OF RANGE REFERENCE UNITS LAB L501.080 70-110 mg/dL Normal BEDSIDE GLU 97 Result Comment: MANAGEMENT OF PATIENT CARE PER NURSING PROTOCOL Performed By: #### L501.080 #### [facility] Point of Care [address] [place] [address] GLUCOSE Collected: 05/13/2018 Status: F Source: MARK 10:40 PM [facility] REPOSITORY TYPE CODE TESTS RESULT OUT OF RANGE REFERENCE UNITS LAB L501.0100 74-106 mg/dL Normal GLU 101 Result Comment: Fasting Glucose result from 100 to 125 mg/dL suggests IMPAIRED HOMEOSTASIS per A.D.A. criteria. Please note revised GLUCOSE reference range effective 2017. Performed By: #### L501.0100 #### [facility] [address] [place], [address] BEDSIDE GLUCOSE Collected: 05/13/2018 Status: F Source: MARK 10:17 PM [facility] REPOSITORY TYPE CODE TESTS RESULT OUT OF REFERENCE UNITS RANGE LAB L501.080 70-110 mg/dL Low alert BEDSIDE GLU 37 Result Comment: Snack Given MANAGEMENT OF PATIENT CARE PER NURSING PROTOCOL Performed By: #### L501.080 #### [facility] [facility] [address] [place] [address] GLUCOSE Collected: 05/13/2018 Status: F Source: MARK 5:00 PM [facility] REPOSITORY TYPE CODE TESTS RESULT OUT OF RANGE REFERENCE UNITS LAB L501.0100 74-106 mg/dL Normal GLU 88 Result Comment: Please note revised GLUCOSE reference range effective 2017. Performed By: #### L501.0100 #### [facility] [address] [place], [address] BEDSIDE GLUCOSE Collected: 05/13/2018 Status: F Source: MARK 4:58 PM [facility] REPOSITORY TYPE CODE TESTS RESULT OUT OF RANGE REFERENCE UNITS LAB L501.080 70-110 mg/dL Normal BEDSIDE GLU 96 Result Comment: MANAGEMENT OF PATIENT CARE PER NURSING PROTOCOL Performed By: #### L501.080 #### [facility] Point of Care [address] [place] [address] BEDSIDE GLUCOSE Collected: 05/13/2018 Status: F Source: MARK 4:41 PM [facility] REPOSITORY TYPE CODE TESTS RESULT OUT OF REFERENCE UNITS RANGE LAB L501.080 70-110 mg/dL Low alert BEDSIDE GLU 24 Result Comment: MANAGEMENT OF PATIENT CARE PER NURSING PROTOCOL Performed By: #### L501.080 #### [facility] Point of Care [address] [place] [address] EMERGENCY DEPARTMENT Observed: 05/13/2018 Status: F Source: MARK SUMMARY 4:22 PM [facility] REPOSITORY [facility] Medical Records Department [address] [place] [address] Emergency Department Summary 05/13/18 1149 MR#: [id number] Acct: [id number] Name: EVERETT IYER Rep #: [id number] : 1945 73 From: Faye Segovia MD PCP: Jack Verdugo MD Status: ADM IN - ER Visit Summary Date of Service: 05/13/18 Chief Complaint: [] Respiratory distress coughing low blood sugar leg swelling and infection diabetes History of Present Illness: The patient is a 73 M [] 158/90, afebrile that history above, the patient has a history of all the above, he apparently was seen by paramedics earlier in the day related to low blood sugar in the 50s he was treated he felt better than later they were called because he was in respirator distress coughing low pulse ox, he has a history of COPD with very distress history failure, history of cardiac surgery possible valve and aortic replacement, diabetes, lower extremity infections, noncompliance, Basically states he struggles to be at home he had exacerbation of all the above called the paramedics and was brought in we were immediately placed him on CPAP as he was struggling to breathe he is feeling better now he has chronic cough chronic shortness of breath chronic lower extremity edema he stopped going to the wound care center for care of the lower extremity edema and ulcers related to noncompliance and conflict that he had with care providers Physical Examination: [] No signs are as above after CPAP he speaking in full sentences he is coughing up thick mucus he is a very large gentleman he has distant heart tones, he has distant lung tones with scattered wheezing, he has a midline midline sternotomy type incision with a hernia at the base that that is unchanged his abdomen is quite obese but nontender he has drainage from the right lower extremity ulcerations, he has decreased sensation to all toes bilaterally and poor cap refill he states is not unusual and baseline for him neurologically he is awake moving all 4 questions appropriately Test Results: [] Emergency Department Course and Treatment: [] The above he will go undergo aggressive management IV fluids CPAP blood gas antibiotics Main hemodynamically stable he is resting comfortably on the BiPAP set up Gas 7.3 PCO2 63 General screening labs are unremarkable see those reports he is anemic to 7.7, his chest x-ray shows right pleural effusion infiltrate cardiomegaly Has been started on IV antibiotics IV fluids given all the above we have asked the hospitalist team for further management and admission Treatment Plan: [] Disposition: [] Admit stable Impression: [] Respiratory failure, pneumonia, exacerbation of COPD, diabetes, right lower extremity infection, This note was generated with [employer] software. It may contain incorrect words, spelling, and punctuation that were not noted in review of the chart prior to signing ED Disposition - Plan for ED Patient: Chief Complaint: Shortness of Breath Referrals: Jack Verdugo MD [Primary Care Provider] - What to do if you have Problems For any increased pain, shortness of breath, bleeding, nausea or vomiting, chest pain, or any unexpected problems, contact your Primary Care Provider. Call [email or web address] ([phone]) or report to the closest Emergency Room. Call 911 if necessary. 05/13/18 1622 <Electronically signed by Faye Segovia MD> Date Faye Segovia MD Cosigner Signature (If Indicated): Date CC: Jack Verdugo MD HISTORY AND PHYSICAL Observed: 05/13/2018 Status: F Source: [place] EXAM 2:37 PM [facility] REPOSITORY [facility] Medical Records Department [address] [place] [id number] History and Physical 05/13/18 1423 MR#: [id number] Acct: [id number] Name: EVERETT IYER Rep #: [id number] : 1945 73 From: Varun Aguilar DO PCP: Jack Verdugo MD Status: REG ER Y Location: ED Problem List (1) Shortness of breath Status: Acute History of Present Illness Date of Admission: 05/13/18 Chief Complaint: Shortness of breath The patient is a 73 year old M who was seen in the emergency room at [facility] with a chief complaint of increasing shortness of breath over the last 24 hours. Patient has been in the hospital multiple times for diastolic congestive heart failure, he is noncompliant with using BiPAP at home, he is also chronically being seen by cardiology and the pulmonary service. Patient states that he has had some chills over the last 24 hours he is been coughing up some yellow sputum occasionally but he denies any fever. Patient denies any chest pain this time to this examiner. Evaluation in the ER included labs which revealed a normal white blood cell count 7, hemoglobin was 7.7, BUN was 19, beta natruretic peptide was 306, glucose was 61. Patient was placed on BiPAP by the emergency room physician, ABGs were obtained on 4 L with BiPAP, results were as follows: PH 7.38, PCO2 63, PO2 139. Patient had a chest x-ray performed which showed a right pleural effusion and evidence to this examiner of congestive heart failure. Patient will be admitted to PCU for acute on chronic diastolic congestive heart failure, he will be placed on IV Lasix, he will need to be seen by wound care due to chronic wounds on his legs-he was given IV antibiotics by the emergency room physician but on examination of the patient, I do not believe the patient has an active cellulitis on his legs, I think rather that he has severe stasis dermatitis and chronic skin wounds on his lower legs from stasis dermatitis. I will not continue the patient on IV antibiotics when he is admitted. Past Medical History Past Medical History (Chronic Problems): Chronic Problems (Last Reviewed 12/29/17 @ 13:57 by YVETTE Pimentel) Chronic diastolic heart failure (Chronic) History of repair of thoracic aortic aneurysm (Chronic 12/11/09) Thoracic aortic aneurysm without rupture (Chronic) Status post ascending and proximal arch aneurysm replaced with a Hemashield graft and shayan-arch repair; Venous stasis dermatitis (Chronic) Anemia (Chronic) Osteoarthritis (Chronic) Coronary artery disease (Chronic) Lymphedema (Chronic) Hyperlipidemia (Chronic) Super obesity (Chronic) Gout (Chronic) Depression (Chronic) Ulcer of right lower extremity with fat layer exposed (Chronic) Ulcer of left lower extremity with fat layer exposed (Chronic) Bilateral leg edema (Chronic) Tinea unguium (Chronic) Diabetes mellitus with neuropathy (Chronic) Delayed wound healing (Chronic) Open wound, lower leg (Chronic) CKD (chronic kidney disease), stage II (Chronic) Wheezing (Chronic) MIKO (obstructive sleep apnea) (Chronic) BiPAP 18/12 cm of water HTN (hypertension) (Chronic) BPH (benign prostatic hypertrophy) (Chronic) Tinea unguium (Chronic) Diabetes mellitus with neuropathy (Chronic) Edema of both legs (Chronic) Lymphedema of leg (Chronic) Multiple excoriations (Chronic) Asthma (Chronic) COPD (chronic obstructive pulmonary disease) (Chronic) FEV1 58% Arthritis (Chronic) Immobility (Chronic) Pulmonary embolism on right (Chronic) Adynamic ileus (Chronic) Ventral hernia (Chronic) Hypoglycemia (Chronic) Peripheral neuropathy (Chronic) Chronic anemia (Chronic) Benign prostatic hypertrophy without urinary obstruction (Chronic) CKD (chronic kidney disease), stage II (Chronic) CAD (coronary artery disease) (Chronic) Type II diabetes mellitus (Chronic) GERD (gastroesophageal reflux disease) (Chronic) Hypercholesteremia (Chronic) Morbid obesity (Chronic) Pulmonary hypertension (Chronic) H/O aortic valve replacement (Chronic 12/11/09) # 29 Freestyle valve Venous insufficiency (Chronic) Medical History: Medical History (Last Reviewed 12/29/17 @ 13:57 by Mackenzie Wallace, VOCATIONAL PSYCHOLOGIST-C) Thoracic aortic aneurysm without rupture (Chronic) I71.2 Status post ascending and proximal arch aneurysm replaced with a Hemashield graft and hsayan-arch repair; Acute on chronic diastolic heart failure (Acute) I50.33 Anemia (Chronic) D64.9 Coronary artery disease (Chronic) I25.10 Hyperlipidemia (Chronic) E78.5 Super obesity (Chronic) E66.9 Bilateral leg edema (Chronic) R60.0 Diabetes mellitus with neuropathy (Chronic) E11.40 Acute on chronic respiratory failure with hypoxia and hypercapnia (Acute) J96.21, J96.22 CKD (chronic kidney disease), stage II (Chronic) N18.2 Wheezing (Chronic) R06.2 Dyspnea (Acute) R06.00 MIKO (obstructive sleep apnea) (Chronic) G47.33 BiPAP 18/12 cm of water HTN (hypertension) (Chronic) I10 Tobacco abuse (Resolved) Z72.0 BPH (benign prostatic hypertrophy) (Chronic) N40.0 Tinea unguium (Chronic) B35.1 Diabetes mellitus with neuropathy (Chronic) E11.40 Edema of both legs (Chronic) R60.0 Lymphedema of leg (Chronic) I89.0 Multiple excoriations (Chronic) T14.8 Asthma (Chronic) J45.909 COPD (chronic obstructive pulmonary disease) (Chronic) J44.9 FEV1 58% Arthritis (Chronic) M19.90 Immobility (Chronic) Z74.09 Pulmonary embolism on right (Chronic) I26.99 CAP (community acquired pneumonia) (Resolved) J18.9 The patient appropriately completed antibiotics and prednisone as prescribed. He has no further signs and symptoms of persistent pneumonia. No indication for any further testing at this time. Patient will be eligible for Pneumovax 23 in approximately 6 months. He states that his PCP is very good at keeping track of his immunizations and when they are due. Adynamic ileus (Chronic) K56.0 Ventral hernia (Chronic) K43.9 Hypoglycemia (Chronic) E16.2 Peripheral neuropathy (Chronic) G62.9 Chronic anemia (Chronic) D64.9 Benign prostatic hypertrophy without urinary obstruction (Chronic) N40.0 CKD (chronic kidney disease), stage II (Chronic) N18.2 CAD (coronary artery disease) (Chronic) I25.10 Type II diabetes mellitus (Chronic) E11.9 GERD (gastroesophageal reflux disease) (Chronic) K21.9 Hypercholesteremia (Chronic) E78.00 Morbid obesity (Chronic) E66.01 Pulmonary hypertension (Chronic) I27.2 Venous insufficiency (Chronic) CHF exacerbation (Resolved) I50.9 Leg swelling (Inactive) M79.89 Nausea and vomiting (Inactive) R11.2 Tinea unguium (Inactive) B35.1 Allergies naphazoline HCl [From Naphcon] Allergy (Severe, Verified 04/06/18 15:53) affected his breathing AFFECTED HIS BREATHING amlodipine besylate [From Norvasc] Allergy (Verified 04/06/18 15:53) Other dextromethorphan Allergy (Verified 04/06/18 15:53) Other levofloxacin [From Levaquin] Adverse Reaction (Mild, Verified 04/06/18 15:53) made me hyperactive made me hyperactive Home Medications: Ambulatory Orders Medication Instructions Recorded Allopurinol [Zyloprim] 300 mg PO DAILY 03/30/17 Clonidine Patch [Catapres-Tts3] 0.3 mg TOPICAL FR 03/30/17 Clopidogrel Bisulfate [Plavix] 75 mg PO DAILY 03/30/17 Surgical History: Surgical History (Last Reviewed 04/06/18 @ 15:54 by Brynn Avila) History of repair of thoracic aortic aneurysm (Chronic) Onset Date: 12/11/09 Z98.890, Z86.79 H/O aortic valve replacement (Chronic) Onset Date: 12/11/09 Z95.2 # 29 Freestyle valve H/O hernia repair Z98.890, Z87.19 Surgical History: - - He has a bioprosthetic aortic valve replacement, abdominal aortic aneurysm repair '05, recent surgery to repair a large ventral hernia. Psychiatric History: Anxiety, Depression Lives: Spouse/ Significant Other Smoking Status: Former smoker Tobacco Use: Cigarettes Alcohol: None Drugs: None - *Family History Maternal Family History: Family History (Last Reviewed 04/06/18 @ 15:54 by Brynn Avila) Brother TBI (traumatic brain injury) Sister Ulcerative colitis History Items: Hypertension, - - Patient's father at the age of 94 from old age. Patient's mother at age of 87 with a history of hyperlipidemia and hypertension. Paternal Family History: Family History (Last Reviewed 04/06/18 @ 15:54 by Brynn Avila) Brother TBI (traumatic brain injury) Sister Ulcerative colitis History Items: Hypertension Review of Systems Constitutional: Reports: Chills, Fatigue. Denies: Anorexia, Fever, Night Sweats, Malaise, Weakness, Weight Change Eyes: Denies: Cataracts, Conjunctivae Inflammation, Double vision, Drainage HEENT: Denies: Difficulty Swallowing, Dysphasia, Ear Pain, Hearing Changes, Nasal bleeding, Nasal Congestion, Post Nasal Drip Cardiovascular: Reports: Edema. Denies: Chest Pain, Claudication, Chest Pressure, Chest Tightness, Heaviness, Orthopnea, Palpitations, Paroxysmal Noc. Dyspnea Respiratory: Reports: Cough, Shortness of Breath, Shortness of breath at rest, Shortness of breath upon exertion, Sputum production. Denies: Hemoptysis Gastrointestinal: Denies: Abdominal Pain, Constipation, Diarrhea, Hematemesis, Hematochezia, Nausea, Melena, Vomiting Genitourinary: Denies: Dysuria, Frequency, Hematuria, Hesitancy, Incontinence, Nocturia, Urgency Musculoskeletal: Denies: Back Pain, Foot Pain, Hand Pain, Joint Pain, Joint stiffness, Joint swelling, Joint Tenderness, Leg Pain Skin: Denies: Dryness, Jaundice, Pruritis, Rash Neurological: Denies: Blurred vision, Double vision, Change in Speech, Slurred speech, Difficulty swallowing, Focal weakness, Headaches, Incoordination, Numbness, Tingling Psychiatric: Denies: Anxiety, Depression, Homicidal Ideations, Suicidal Ideations Endocrine: Denies: Change in Body Habitus, Heat/ Cold Intolerance, Polydipsia, Polyuria Hematologic/ Lymphatic: Denies: Adenopathy, Anemia, Easy Bruising, Easy Bleeding, Petechiae, Purpura VTE Information - Inpt Only VTE Present on Admission: No VTE Mechan Device Prophylaxis: None VTE Pharm Prophylaxis ordered?: Yes Patient Problems: Active and Suspected Problems (Last Updated 05/13/18 @ 14:31 by Varun Aguilar DO) Shortness of breath (Acute) - Physical Exam General: Alert, Oriented x3, Cooperative, No apparent distress, Well developed, Well nourished HEENT: Atraumatic, PERRLA, EOMI, Normocephalic Oral: Moist Mucosa Neck: Supple, No JVD, Negative Carotid Bruits, No Nuchal Rigidity, Trachea Midline, Thyroid Normal Size and Texture Lungs: Clear to auscultation, No rhonchi, No wheeze, No rales, Diminished Cardiovascular: Regular rate, Regular Rhythm, Normal S1, Normal S2, No murmurs, No Ectopic Activity, PMI Normal, No rub noted, No Gallop Abdomen: Bowel Sounds Present, Soft, Non Tender, Non-Distended, Obese, Hernia - Ventral hernia is present Extremities: No clubbing, No cyanosis, Capillary Refill Less than 3 Seconds, Edema - Severe nonpitting edema is noted over both lower legs, there is also noted to be stasis dermatitis changes which are chronic over both lower legs, there are superficial wounds over both lower legs Skin: Ulcer/ Wound - There are superficial wounds noted over the patient's lower legs , no purulent drainage was noted, Rash Present - Chronic stasis dermatitis changes are noted over both lower legs Neurological: Cranial nerves II-XII grossly intact, Neuro grossly intact, Sensory exam intact to light touch and pain, Coordination normal Psych/Mental Status: Normal Affect, Appropriate, Alert and oriented to time, place, person, mood and affect Vital Signs Temp Pulse Resp BP Pulse Ox 98 F 79 20 H 154/99 H 98 05/13/18 14:00 05/13/18 14:00 05/13/18 14:00 05/13/18 14:00 05/13/18 14:00 Oxygen Flow Rate (L/min) 4 Oxygen Delivery Method Nasal Cannula Weight: 168.1 kg Body Mass Index (BMI) 56.3 Finger Stick Blood Glucose 132 Laboratory Tests Past 24 Hrs WBC 7.0 RBC 3.27 L Hgb 7.7 L Hct 27.1 L WBC RBC Hgb Hct MCV MCH MCHC Assessment/Plan All Active Problems (Last Updated 05/13/18 @ 14:31 by Varun Aguilar DO) Shortness of breath (Acute) Acute on chronic diastolic heart failure (Acute) Acute on chronic respiratory failure with hypoxia and hypercapnia (Acute) Dyspnea (Acute) Tobacco abuse (Resolved) CAP (community acquired pneumonia) (Resolved) Bilateral lower leg cellulitis (Resolved) CHF exacerbation (Resolved) Hyperkalemia (Resolved) Hypomagnesemia (Resolved) Hyponatremia (Resolved) #1 acute on chronic diastolic congestive heart failure-patient will be admitted to PCU, he will be placed on Lasix 60 mg IV every 8 hours, repeat chest x- ray will be performed tomorrow, O2 sat will be monitored #2 severe stasis dermatitis of the lower legs with anasarca- patient's legs will be wrapped, he will be seen by wound care for his superficial leg wounds, again I do not think the patient needs IV antibiotics at this time #3 chronic obstructive pulmonary disease I do not believe the patient needs to be placed on IV antibiotics for his complaints of yellow sputum production, and the patient's medical record in the past, he has complained of similar symptoms and I believe he does have chronic sputum production as an outpatient. I will place the patient on Zithromax p.o. 500 mg x 3 days #4 chronic mixed respiratory failure-I took the patient off of BiPAP in the emergency room and placed him back on nasal cannula O2, he is saturating at 96% on 6 L. #5 obstructive sleep apnea-noncompliant with BiPAP #6 noncompliance-patient should have followed up with his PCP regarding his lower extremity edema in his leg wounds, these leg wounds are probably not acute and may have been present over the last few weeks. #7 chronic anemia probably iron deficiency anemia, I will order a serum iron and TIBC on the patient, I do not believe the patient needs a blood transfusion at this time, it appears the patient has been worked up before for his chronic anemia. #8 super morbid obesity Code Visit Inpatient E AND M: [id number] Init Hosp L3 05/13/18 1437 <Electronically signed by Varun Aguilar DO> Date Varun Aguilar DO Cosigner Signature: Date (if applicable) CC: Varun Aguilar DO; Jack Verdugo MD Signed URINALYSIS, COMPLETE Collected: 05/13/2018 Status: F Source: [place] 12:45 PM [facility] REPOSITORY Order Comment: How was Urine Obtained? CATHETER SPECIMEN TYPE CODE TESTS RESULT OUT OF RANGE REFERENCE UNITS LAB L400.3000 Yellow COLOR Normal Yellow LAB L400.3050 Clear Normal CLARITY Clear LAB L400.3200 Normal mg/dl Normal GLUCOSE, UR Normal LAB L400.3300 Negative mg/dL Normal BILIRUBIN URINE Negative LAB L400.3400 Negative mg/dl Normal KETONE UR Negative LAB L400.3465 1.002-1.030 Normal SP.GR. DIPSTX 1.015 LAB L400.3550 5.0 - 8.0 pH UR Normal 5.0 LAB L400.3600 Negative mg/dl High PROT 30 DIPSTX LAB L400.3700 Normal mg/dl Normal UROBILI Normal LAB L400.3750 Negative Normal NITRITE UR Negative LAB L400.3780 Negative /ul High OCCULT BLOOD-UR 250 LAB L400.3800 Negative /ul LEUK Normal ESTERASE Negative LAB L400.4050 0-5 /hpf WBC 0 Normal SEEN LAB L400.4100 0-5 /hpf Normal RBC-UA 0-5 SEEN LAB L400.4150 0-5 /hpf SQUAM 0 Normal EPI SEEN LAB L400.4300 None Seen /hpf 0 Normal BACTERIA SEEN LAB L400.4350 <or=2+ /hpf 0 Normal MUCUS, URINE SEEN Performed By: #### L400.0001 #### [facility] [address] [place], [address] Observed: 05/13/2018 Status: F Source: [place] CULTURE, URINE 12:45 PM [facility] REPOSITORY Urine Culture Culture exhibits no growth. Performed By: #### M100.0650 #### [facility] [address] [place], [address] BLOOD GASES BY CPS Collected: 05/13/2018 Status: F Source: [place] 12:17 PM [facility] REPOSITORY TYPE CODE TESTS RESULT OUT OF RANGE REFERENCE UNITS LAB L9000.9990 Normal BLD GAS TYPE ART LAB L9001.1000 Normal SITE R Radial LAB L9001.1050 O2 Normal Delivery Dev Bi / C PAP LAB L9001.1074 Normal FI02 50 LAB L9001.1088 Normal IPAP 14 LAB L9001.1090 Normal EPAP 6 LAB L9001.1104 Normal Results To ED LAB L9001.1105 Normal Time Given 1217 LAB L9001.1110 7.35-7.45 pH Normal - I-STAT 7.38 LAB L9001.1210 35-45 mmHg High pCO2 - ISTAT 63.3 LAB L9001.1310 75-100 mmHG High PO2 I-STAT 139 LAB L9001.2300 22-26 mmol/L High HCO3 ISTAT 37.1 LAB L9001.2400 -2 to +2 mmol/L High BE ISTAT 12 LAB L9001.2415 mmol/L Normal TOTAL CO2 39 ISTAT LAB L9001.2425 95-99 % Normal SO2 ISTAT 99 Performed By: #### L9000.0800 #### [facility] Point of Care [address] [place] [address] CBC W/DIFF, AUTOMATED Collected: 05/13/2018 Status: F Source: [place] 11:35 AM [facility] REPOSITORY TYPE CODE TESTS RESULT OUT OF RANGE REFERENCE UNITS LAB L100.1000 4.4-11.0 K/mm3 Normal WBC 7.0 LAB L100.1200 4.6-6.2 M/mm3 Low RBC 3.27 LAB L100.1300 13.0-16.5 g/dl Low HGB 7.7 LAB L100.1400 40-54 % Low HCT 27.1 LAB L100.1500 80-94 fL Normal MCV 82.9 LAB L100.1600 27.0-32.0 pg Low MCH 23.5 LAB L100.1700 32-36 g/gl Low MCHC 28.4 LAB L100.1810 11.6-14.6 % High RDW CV 15.2 LAB L100.1820 35.1-43.9 fl High RDW SD 46.0 LAB L100.1900 150-450 K/mm3 Normal PLT 265 LAB L100.2000 6.2-12.0 fl Normal MPV 8.8 LAB L100.2100 47-70 % High NEUT% 87.3 LAB L100.2200 19-41 % Low LY% 5.8 LAB L100.2300 0-10 % Normal MONO% 6.3 LAB L100.2400 0-5 % Normal EO% 0.3 LAB L100.2500 0-1 % Normal BASO% 0.0 LAB L100.2550 0.0-0.9 % Normal IM GRAN % 0.300 Result Comment: IG% - Immature Granulocytes (promyelocytes, myelocytes and metamyelocytes) > 1% indicates that a LEFT SHIFT is Present. LAB L100.2620 2.0-7.7 X10 3/uL Normal Absolute Neut 6.1 LAB L100.2720 0.83-4.51 X10 3/ul Low Absolute Lymph 0.41 LAB L100.4500 Normal SMEAR COMMENT SCANNED Performed By: #### L100.0100 #### [facility] [address] [place], [place], [address] BASIC METABOLIC Collected: 05/13/2018 Status: F Source: [place] PROFILE (BMP) 11:35 AM [facility] REPOSITORY TYPE CODE TESTS RESULT OUT OF RANGE REFERENCE UNITS LAB L501.0100 74-106 mg/dL Low GLU 61 Result Comment: Please note revised GLUCOSE reference range effective 2017. LAB L501.1000 7-18 mg/dL High BUN 19 LAB L501.1100 0.70-1.30 mg/dL Normal CREAT,SERUM 0.89 Result Comment: The validity of the calculated GFR AND GFRAA in patients over 70 years has not been determined. Clinical correlation is essential. LAB L501.1110 >60 mL/min Normal EST GFR 89 Result Comment: Non- GFR Calc LAB L501.1115 >60 mL/min Normal EST GFR - AA 107 Result Comment: GFR Calc LAB L501.1255 ml/min Normal Estimated CRCL 69.38 LAB L501.1300 10-20 RATIO High BUN/CRE 21.3 LAB L501.2200 8.5-10 mg/dL Normal .1 CA 8.8 LAB L501.5300 136-14 mmol/L Normal 5 NA 138 LAB L501.5600 3.5-5. mmol/L Normal 1 K 4.1 LAB L501.5900 98-107 mmol/L Normal CL 98 LAB L501.6100 21.0-3 mmol/L High 2.0 CO2 35.0 LAB L501.6200 5-15 Normal GAP 5 Performed By: #### L500.2500, L501.4010 #### [facility] [address] [place], [place], [id number] TROPONIN-I Collected: 05/13/2018 Status: F Source: [place] 11:35 AM [facility] REPOSITORY TYPE CODE TESTS RESULT OUT OF RANGE REFERENCE UNITS LAB L501.4010 <0.045 ng/mL Normal 0.026 TROPONIN-I Result Comment: TROPONIN-I EXPECTED VALUES <0.045 Negative 0.045 - 0.590 Consistent with Cardiac Damage > OR = 0.600 Critical Value Not every elevated troponin is indicative of [place]. These values should be used with clinical judgement in examining the patient's clinical picture for diagnosis. To establish a diagnosis of [place] versus myocardial injury, there must be a demonstrated rise and/or fall in the troponin values, in addition to ischemic symptoms, EKG changes, new regional wall motion abnormality, and/or angiographical evidence. PLEASE NOTE: REFERENCE RANGES EDITED 17 Performed By: #### L500.2500, L501.4010 #### [facility] [address], [place], [id number] LACTIC ACID Collected: 05/13/2018 Status: F Source: [place] 11:35 AM [facility] REPOSITORY Order Comment: Yes/No query for Sepsis Lactate Rule Y TYPE CODE TESTS RESULT OUT OF RANGE REFERENCE UNITS LAB L503.6005 0.4-2.0 mmol/L Normal LACTIC ACID 1.1 Performed By: #### L503.6005 #### [facility] [address] [place], [address] BNP,B-TYPE NATRIURETIC Collected: 05/13/2018 Status: F Source: [place] 11:35 AM [facility] REPOSITORY TYPE CODE TESTS RESULT OUT OF RANGE REFERENCE UNITS LAB L503.6620 0-100 pg/mL High B-TYPE 306.9 ROYA PEP Performed By: #### L503.6620 #### [facility] [address] [place], [address] CHEST 1 VIEW Observed: 05/13/2018 Status: F Source: [place] (PORTABLE) 11:35 AM [facility] REPOSITORY [facility] Services [address] [place] [address] Chest 1 View (Portable) MR#: [id number] Acct: [id number] Name: EVERETT IYER Rep #: [id number] : 1945 73 From: Gab Ruth MD PCP: Jack Verdugo MD Status: REG ER Study: Chest 1 View (Portable) Date of Exam: 05/13/18 Exam# [id number] Ordering Dr: Faye Segovia MD STUDY: X-RAY CHEST REASON FOR EXAM: Male, 73 years old. Increasing shortness of breath. TECHNIQUE: Single AP portable view of the chest. COMPARISON: Comparison is made with prior study dated December 11, 2017. FINDINGS: EKG electrodes are seen. Surgical clips are once again seen in the right axillary region. There is evidence of CHF with small bilateral effusions right greater than left. Right basilar atelectasis and/or infiltrate. Sternal cerclage wires and vascular clips are present from a prior sternotomy and coronary artery bypass graft procedure (CABG). Moderate cardiomegaly. Normal mediastinum and radha. Normal visualized pulmonary arteries. There is atherosclerotic calcification of the aortic arch with tortuosity. Normal visualized thoracic spine. Normal visualized ribs, clavicles, and shoulders. There is no demonstrated abnormality of the visualized soft tissue structures of the upper abdomen. RAD/Chest 1 View (Portable) IMPRESSION: CHF. Small bilateral pleural effusions right greater than left with bibasilar atelectasis worse on the right side. Cardiomegaly. Electronically Signed: Gab Ruth MD at 13:35 EST Tel [phone], Service support , CC: MD Sonido Segovia; Jack Verdugo MD Aircraft Refueller: Signed IRON+IRON BINDING Collected: 05/13/2018 Status: F Source: [facility] 11:35 AM [facility] REPOSITORY TYPE CODE TESTS RESULT OUT OF REFERENCE UNITS RANGE LAB L503.6075 250-450 ug/dL Low TIBC 212 LAB L503.6150 65-175 ug/dL Low IRON 20 LAB L503.6250 15.0-55.0 % Low IRON SATURATION 9.4 Performed By: #### L503.6030 #### [facility] [address] [place], [address] PROGRESS Observed: 03/20/2018 Status: COMPLETED Source: [place] 12:56 PM [facility] REPOSITORY HNO ID: [id number] Author: Jack Verdugo Service: (none) Author Type: Physician Type: Progress Notes Filed: 03/20/2018 1:23 PM Note Text: This note was created using Reksoftriter. Subjective Everett Iyer is a 73 year old male here for follow up with his son. He brought in a few medication bottles and a lot of supplements. He was not clear on what medications he was taking. He was getting more dyspneic with cough, wheezing, and sputum. His chronic leg ulcers were also becoming purulent. Son was asking for help with chronic wound care. ACTIVE PROBLEM LIST Asthma Hypertension Goal Bp (Blood Pressure) < 150/90 Gout, unspecified Obesity, Class Iii, Bmi 40-49.9 (Morbid Obesity) (Hcc) BPH W URINARY OBS/LUTS Lymphedema of Both Lower Extremities Unspecified Cardiovascular Disease Osteoarthritis of Knee GERD Dm Type 2, Uncontrolled, With Neuropathy ([facility]) Hyperlipidemia With Target Ldl Less Than 70 Anemia CKD (chronic kidney disease) stage 3, GFR 30-59 ml/min Copd (Chronic Obstructive Pulmonary Disease) ([facility]) Status Post Aortic Valve Replacement With Prosthetic Valve Stasis Leg Ulcer ([facility]) Pruritic Disorder Miko (Obstructive Sleep Apnea) Pulmonary Embolus ([facility]) Obsessive-Compulsive Disorder Acute Congestive Heart Failure ([facility]) Current Outpatient Prescriptions: sertraline (ZOLOFT) 100 mg tablet Take 1 tablet by mouth once daily. fluticasone-salmeterol (ADVAIR DISKUS) 500-50 mcg/dose dsdv Inhale 1 Puff as instructed twice daily. Per Dr. Memo Clay. Terazosin HCl (HYTRIN) 10 mg capsule Take 1 capsule by mouth daily at bedtime. polyethylene glycol 3350 (MIRALAX, GLYCOLAX) 17 gram packet use 1 (ONE) PACKET daily DIRECTED cloNIDine TTS (CATAPRES-TTS) 0.3 mg/24 hr Apply 1 Patch as directed once each week. glimepiride (AMARYL) 4 mg tablet Take 2 tablets by mouth daily with breakfast. lansoprazole (PREVACID) 15 mg capsule Take 1 capsule by mouth once daily. ONETOUCH ULTRA BLUE TEST STRIP test strip Check 4x times a day. Dx: E11.65. On insulin. Hypoglycemia. allopurinol (ZYLOPRIM) 300 mg tablet TAKE 1 TABLET EVERY DAY for FOR GOUT metFORMIN (GLUCOPHAGE) 500 mg tablet Take 1 tablet by mouth three times daily with meals. clopidogrel (PLAVIX) 75 mg tablet Take 1 tablet by mouth once daily. spironolactone (ALDACTONE) 25 mg tablet TAKE 1 TABLET TWICE DAILY atorvastatin (LIPITOR) 80 mg tablet Take 0.5 tablets by mouth once daily. metoprolol tartrate, short acting, (LOPRESSOR) 50 mg tablet Take 1 tablet by mouth twice daily. acetaminophen (TYLENOL EXTRA STRENGTH) 500 mg tablet Take 2 tablets by mouth every 6 hours as needed for Pain (Patient takes 2x/day). finasteride (PROSCAR) 5 mg tablet Take 1 tablet by mouth once daily. Ferrous Sulfate 325 mg (65 mg iron) tablet Take 1 tablet by mouth once daily. alcohol antiseptic pads(ALCOHOL PREP PADS) use as directed COLACE 100 MG CAP Take one(1) tablet two(2) times daily. MULTIVITAMIN TAB Take one(1) tablet daily. insulin glargine (BASAGLAR KWIKPEN U-100 INSULIN) 100 unit/mL (3 mL) inpn Inject 30 Units subcutaneously twice daily. cephALEXin (KEFLEX) 500 mg capsule Take 1 capsule by mouth three times daily for 10 days. budesonide-formoterol (SYMBICORT) 160-4.5 mcg/actuation inhaler Inhale 2 Puffs as instructed twice daily. Dr. Clay. Magnesium 250 mg tab Take 1 tablet by mouth twice daily. metOLAzone (ZAROXOLYN) 2.5 mg tablet Take 1 tablet by mouth once daily. furosemide (LASIX) 80 mg tablet take 1 tablet twice a day for water pill Nutritional Supplements (CANDIDO) pack Take 237 mL by mouth twice daily. loratadine (CLARITIN) 10 mg tablet Take 10 mg by mouth once daily. albuterol HFA (VENTOLIN HFA) 90 mcg/actuation inhaler Inhale 2 Puffs as instructed every 4 hours as needed for Wheezing/Shortness of Breath. losartan (COZAAR) 100 mg tablet TAKE 1 TABLET BY MOUTH EVERY DAY Lancets (ONETOUCH ULTRASOFT LANCETS) lancets Use four times a day Dx: E11.65 insulin needles, DISPOSABLE, (BD INSULIN PEN NEEDLE UF) 31 gauge x 5/16 ndle 1 Each once daily. Dx: 250.00 Insulin: yes ipratropium-albuterol (DUONEB) 0.5 mg-3 mg(2.5 mg base)/3 mL nebu Inhale 3 mL as instructed every 4 hours as needed (wheezing). Use over 5-15minutes per nebulizer. No current facility-administered medications for this visit. Medication reconciliation done electronically. Review of Systems Constitutional: Negative for chills, diaphoresis, fever and unexpected weight change. HENT: Negative. Respiratory: Positive for cough, shortness of breath and wheezing. Negative for chest tightness. Cardiovascular: Positive for leg swelling. Negative for chest pain and palpitations. Gastrointestinal: Negative. Musculoskeletal: Positive for gait problem. Skin: Positive for wound. Neurological: Positive for weakness. Objective BP 142/88 (BP Site: Left Arm, BP Position: Sitting) Pulse 97 Temp 36.7 ?C (98.1 ?F) SpO2 98% Physical Exam Constitutional: No distress. HENT: Head: Normocephalic. Eyes: Conjunctivae are normal. No scleral icterus. Cardiovascular: Normal heart sounds. Exam reveals no gallop. No murmur heard. Pulmonary/Chest: No respiratory distress. He has decreased breath sounds in the right lower field and the left lower field. He has wheezes. He has rhonchi. He has no rales. Abdominal: Soft. There is no tenderness. Musculoskeletal: He exhibits edema. 1-2+ edema. Compression wraps, gauze, removed, and replaced for both legs. Multiple stage 2 ulcers, right more than left. Some ulcers with yellowish fibrinous discharge. Chronic stasis erythema and pigmentation with no definite cellulitis. Feet: Shoes and socks removed, trace DP distal pulses, not sensitive to monofilament in some toes, calluses few, no foot ulcers, and nails notable for Deformed Assessment and Plan 1. Venous stasis ulcers of both lower extremities (HCC) - ICD9: 459.81, 707.10, ICD10: I83.019, I83.029, L97.919, L97.929 (primary diagnosis) - Infected. - CEPHALEXIN 500 MG CAPSULE - Continue wound care. Refer to for wound care. I recommended [facility]. Patient's son declined. He has been there multiple times, and benefit is only during active treatment, not when he returns home. 2. Chronic obstructive pulmonary disease, unspecified COPD type (HCC) - ICD9: 496, ICD10: J44.9 - Continue breathing treatments. Antibiotic may help. - XR CHEST 2V FRONTAL/LAT 3. Hypertension goal BP (blood pressure) < 150/90 - ICD9: 401.9, ICD10: I10 - suboptimal control - Resistant. - Continue current medication(s) 4. DM type 2, uncontrolled, with neuropathy (HCC) - ICD9: 250.62, 357.2, ICD10: E11.40, E11.65 Poor adherence to plan of care. - Continue current medications - COMP METABOLIC PANEL - HGB A1C - ALBUMIN/CREAT RATIO RND UR 5. Anemia in other chronic diseases classified elsewhere - ICD9: 285.29, ICD10: D63.8 Recheck. - CBC 6. CKD (chronic kidney disease) stage 3, GFR 30-59 ml/min - ICD9: 585.3, ICD10: N18.3 Recheck. - MAGNESIUM BLD 7. Obsessive-compulsive disorder, unspecified type - ICD9: 300.3, ICD10: F42.9 Dose clarified. It was not clear, but he still seemed he was till refilling olanzapine. - SERTRALINE 100 MG TABLET. Take one(1) tablet daily. 8. Uncomplicated asthma, unspecified asthma severity, unspecified whether persistent - ICD9: 493.90, ICD10: J45.[address] Khari Clay if worse, or as scheduled. - FLUTICASONE 500 MCG-SALMETEROL 50 MCG/DOSE BLISTR POWDR FOR INHALATION During this patient visit I have spent approximately 30 minutes out of 45 in counseling regarding treatment options and medications and coordinating care. Jack Verdugo MD XR CHEST 2V FRONTAL/LAT Observed: 03/20/2018 Status: F Source: [place] 12:06 PM [facility] REPOSITORY * * *Final Report* * * DATE OF EXAM: Mar 20 2018 12:06PM WOX [id number] - XR CHEST 2V FRONTAL/LAT / PROCEDURE REASON: Chronic obstructive pulmonary disease, unspecified COPD type (HCC) * * * * Physician Interpretation * * * * EXAMINATION: CHEST RADIOGRAPH (2 VIEW FRONTAL and LATERAL) CLINICAL HISTORY: Chronic obstructive pulmonary disease, unspecified COPD type (HCC) MQ: XC2_5 Comparison: 03/30/2017 RESULT: Lines, tubes, and devices: Mediastinal clips and wires are in place. Lungs and pleura: Significant cardiomegaly is seen. Fluid and atelectasis is noted at both lung bases. Some degree of right middle and lower lobe atelectasis is suspected. Mild pulmonary vascular congestion is seen. Upper lung berkowitz otherwise clear. No pneumothorax. IMPRESSION: Significant cardiomegaly. Pulmonary vascular congestion. Fluid and atelectasis at both lung bases. This is greater on the right. Some degree of right middle and lower lobe atelectasis is suspected. Superimposed consolidation cannot be excluded. Aircraft Refueller: DALJIT Transcribe Date/Time: Mar 20 2018 1:25P Dictated by : ZEINA SOSA MD This examination was interpreted and the report reviewed and electronically signed by: ZEINA SOSA MD on Mar 20 2018 1:27PM EST [id number] PROGRESS Observed: 03/20/2018 Status: COMPLETED Source: [place] 11:47 AM [facility] REPOSITORY HNO ID: [id number] Author: Yee Earl Service: (none) Author Type: (none) Type: Progress Notes Filed: 03/20/2018 12:06 PM Note Text: Radiology Service Progress Note PATIENT NAME: Everett Iyer DATE OF SERVICE: March 20, 2018 TIME: 11:47 AM PATIENT IDENTITY VERIFICATION COMPLETED USING TWO (2) METHODS: Patient confirmed name verbally and Date of . PATIENT GENDER DATA: Male PATIENT RELEVANT IMPLANT DATA REVIEWED: Not Applicable RADIOLOGY DEPARTMENT: General X-ray: Exam(s) Completed: Chest X-Ray PERIPHERAL IV DATA: Not applicable SIGNED BY: Yee Earl March 20, 2018 11:47 AM CNOV Observed: 03/20/2018 Status: COMPLETED Source: [place] 10:40 AM [facility] REPOSITORY Office Visit (INTMWS) EVERETT IYER ([id number]) 1945 M Date Time Provider Department 03/20/18 10:40 AM JACK VERDUGO [facility] During your visit today, we recorded the following information about you: Temperature Pulse Blood pressure 98.1 degrees 97/minute 142/88 Jack Verdugo MD 03/20/2018 1:23 PM Signed This note was created using Reksoftriter. Subjective Everett Iyer is a 73 year old male here for follow up with his son. He brought in a few medication bottles and a lot of supplements. He was not clear on what medications he was taking. He was getting more dyspneic with cough, wheezing, and sputum. His chronic leg ulcers were also becoming purulent. Son was asking for help with chronic wound care. ACTIVE PROBLEM LIST Asthma Hypertension Goal Bp (Blood Pressure) < 150/90 Gout, unspecified Obesity, Class Iii, Bmi 40-49.9 (Morbid Obesity) ([facility]) BPH W URINARY OBS/LUTS Lymphedema of Both Lower Extremities Unspecified Cardiovascular Disease Osteoarthritis of Knee GERD Dm Type 2, Uncontrolled, With Neuropathy ([facility]) Hyperlipidemia With Target Ldl Less Than 70 Anemia CKD (chronic kidney disease) stage 3, GFR 30-59 ml/min Copd (Chronic Obstructive Pulmonary Disease) ([facility]) Status Post Aortic Valve Replacement With Prosthetic Valve Stasis Leg Ulcer ([facility]) Pruritic Disorder Miko (Obstructive Sleep Apnea) Pulmonary Embolus ([facility]) Obsessive-Compulsive Disorder Acute Congestive Heart Failure ([facility]) Current Outpatient Prescriptions: sertraline (ZOLOFT) 100 mg tablet Take 1 tablet by mouth once daily. fluticasone-salmeterol (ADVAIR DISKUS) 500-50 mcg/dose dsdv Inhale 1 Puff as instructed twice daily. Per Dr. Memo Clay. Terazosin HCl (HYTRIN) 10 mg capsule Take 1 capsule by mouth daily at bedtime. polyethylene glycol 3350 (MIRALAX, GLYCOLAX) 17 gram packet use 1 (ONE) PACKET daily DIRECTED cloNIDine TTS (CATAPRES-TTS) 0.3 mg/24 hr Apply 1 Patch as directed once each week. glimepiride (AMARYL) 4 mg tablet Take 2 tablets by mouth daily with breakfast. lansoprazole (PREVACID) 15 mg capsule Take 1 capsule by mouth once daily. ONETOUCH ULTRA BLUE TEST STRIP test strip Check 4x times a day. Dx: E11.65. On insulin. Hypoglycemia. allopurinol (ZYLOPRIM) 300 mg tablet TAKE 1 TABLET EVERY DAY for FOR GOUT metFORMIN (GLUCOPHAGE) 500 mg tablet Take 1 tablet by mouth three times daily with meals. clopidogrel (PLAVIX) 75 mg tablet Take 1 tablet by mouth once daily. spironolactone (ALDACTONE) 25 mg tablet TAKE 1 TABLET TWICE DAILY atorvastatin (LIPITOR) 80 mg tablet Take 0.5 tablets by mouth once daily. metoprolol tartrate, short acting, (LOPRESSOR) 50 mg tablet Take 1 tablet by mouth twice daily. acetaminophen (TYLENOL EXTRA STRENGTH) 500 mg tablet Take 2 tablets by mouth every 6 hours as needed for Pain (Patient takes 2x/day). finasteride (PROSCAR) 5 mg tablet Take 1 tablet by mouth once daily. Ferrous Sulfate 325 mg (65 mg iron) tablet Take 1 tablet by mouth once daily. alcohol antiseptic pads(ALCOHOL PREP PADS) use as directed COLACE 100 MG CAP Take one(1) tablet two(2) times daily. MULTIVITAMIN TAB Take one(1) tablet daily. insulin glargine (BASAGLAR KWIKPEN U-100 INSULIN) 100 unit/mL (3 mL) inpn Inject 30 Units subcutaneously twice daily. cephALEXin (KEFLEX) 500 mg capsule Take 1 capsule by mouth three times daily for 10 days. budesonide-formoterol (SYMBICORT) 160-4.5 mcg/actuation inhaler Inhale 2 Puffs as instructed twice daily. Dr. Clay. Magnesium 250 mg tab Take 1 tablet by mouth twice daily. metOLAzone (ZAROXOLYN) 2.5 mg tablet Take 1 tablet by mouth once daily. furosemide (LASIX) 80 mg tablet take 1 tablet twice a day for water pill Nutritional Supplements (CANDIDO) pack Take 237 mL by mouth twice daily. loratadine (CLARITIN) 10 mg tablet Take 10 mg by mouth once daily. albuterol HFA (VENTOLIN HFA) 90 mcg/actuation inhaler Inhale 2 Puffs as instructed every 4 hours as needed for Wheezing/Shortness of Breath. losartan (COZAAR) 100 mg tablet TAKE 1 TABLET BY MOUTH EVERY DAY Lancets (EatwaveTOUCH ULTRASOFT LANCETS) lancets Use four times a day Dx: E11.65 insulin needles, DISPOSABLE, (BD INSULIN PEN NEEDLE UF) 31 gauge x 5/16 ndle 1 Each once daily. Dx: 250.00 Insulin: yes ipratropium-albuterol (DUONEB) 0.5 mg-3 mg(2.5 mg base)/3 mL nebu Inhale 3 mL as instructed every 4 hours as needed (wheezing). Use over 5-15minutes per nebulizer. No current facility-administered medications for this visit. Medication reconciliation done electronically. Review of Systems Constitutional: Negative for chills, diaphoresis, fever and unexpected weight change. HENT: Negative. Respiratory: Positive for cough, shortness of breath and wheezing. Negative for chest tightness. Cardiovascular: Positive for leg swelling. Negative for chest pain and palpitations. Gastrointestinal: Negative. Musculoskeletal: Positive for gait problem. Skin: Positive for wound. Neurological: Positive for weakness. Objective BP 142/88 (BP Site: Left Arm, BP Position: Sitting) Pulse 97 Temp 36.7 ?C (98.1 ?F) SpO2 98% Physical Exam Constitutional: No distress. HENT: Head: Normocephalic. Eyes: Conjunctivae are normal. No scleral icterus. Cardiovascular: Normal heart sounds. Exam reveals no gallop. No murmur heard. Pulmonary/Chest: No respiratory distress. He has decreased breath sounds in the right lower field and the left lower field. He has wheezes. He has rhonchi. He has no rales. Abdominal: Soft. There is no tenderness. Musculoskeletal: He exhibits edema. 1-2+ edema. Compression wraps, gauze, removed, and replaced for both legs. Multiple stage 2 ulcers, right more than left. Some ulcers with yellowish fibrinous discharge. Chronic stasis erythema and pigmentation with no definite cellulitis. Feet: Shoes and socks removed, trace DP distal pulses, not sensitive to monofilament in some toes, calluses few, no foot ulcers, and nails notable for Deformed Assessment and Plan 1. Venous stasis ulcers of both lower extremities (HCC) - ICD9: 459.81, 707.10, ICD10: I83.019, I83.029, L97.919, L97.929 (primary diagnosis) - Infected. - CEPHALEXIN 500 MG CAPSULE - Continue wound care. Refer to for wound care. I recommended referral to [facility]. Patient's son declined. He has been there multiple times, and benefit is only during active treatment, not when he returns home. 2. Chronic obstructive pulmonary disease, unspecified COPD type (HCC) - ICD9: 496, ICD10: J44.9 - Continue breathing treatments. Antibiotic may help. - XR CHEST 2V FRONTAL/LAT 3. Hypertension goal BP (blood pressure) < 150/90 - ICD9: 401.9, ICD10: I10 - suboptimal control - Resistant. - Continue current medication(s) 4. DM type 2, uncontrolled, with neuropathy (HCC) - ICD9: 250.62, 357.2, ICD10: E11.40, E11.65 Poor adherence to plan of care. - Continue current medications - COMP METABOLIC PANEL - HGB A1C - ALBUMIN/CREAT RATIO RND UR 5. Anemia in other chronic diseases classified elsewhere - ICD9: 285.29, ICD10: D63.8 Recheck. - CBC 6. CKD (chronic kidney disease) stage 3, GFR 30-59 ml/min - ICD9: 585.3, ICD10: N18.3 Recheck. - MAGNESIUM BLD 7. Obsessive-compulsive disorder, unspecified type - ICD9: 300.3, ICD10: F42.9 Dose clarified. It was not clear, but he still seemed he was till refilling olanzapine. - SERTRALINE 100 MG TABLET. Take one(1) tablet daily. 8. Uncomplicated asthma, unspecified asthma severity, unspecified whether persistent - ICD9: 493.90, ICD10: J45.[address] Khari Clay if worse, or as scheduled. - FLUTICASONE 500 MCG-SALMETEROL 50 MCG/DOSE BLISTR POWDR FOR INHALATION During this patient visit I have spent approximately 30 minutes out of 45 in counseling regarding treatment options and medications and coordinating care. Jack Verdugo MD Referring Provider: SELF [200] Allergies As of Date: 03/20/2018 Noted Allergy Reaction LEVAQUIN (LEVOFLOXACIN) 05/13/2007 1 - Mental Status Change NALDECON SENIOR DX (DEXTROMETHORP*02/13/2005 5 - Intolerance NORVASC (AMLODIPINE BESYLATE) 02/13/2005 5 - Intolerance Date Reviewed: 03/20/2018 Reviewed by: Antoinette Parnell Screw Down - Fully Assessed Reason for Visit: Recheck [92] Primary Visit Diagnosis:Venous stasis ulcers of both lower extremities (HCC) [I83.019, I83.029, L97.919, L97.929] Other Visit Diagnoses:Chronic obstructive pulmonary disease, unspecified COPD type (HCC) [J44.9] Hypertension goal BP (blood pressure) < 150/90 [I10] DM type 2, uncontrolled, with neuropathy (HCC) [E11.40, E11.65] Anemia in other chronic diseases classified elsewhere [D63.8] CKD (chronic kidney disease) stage 3, GFR 30-59 ml/min [N18.3] Obsessive-compulsive disorder, unspecified type [F42.9] Uncomplicated asthma, unspecified asthma severity, unspecified whether persistent [J45.909] Order(s):insulin glargine (BASAGLAR KWIKPEN U-100 INSULIN) 100 unit/mL (3 mL) inpnInject 30 Units subcutaneously twice daily.Disp: Rfl: cephALEXin (KEFLEX) 500 mg capsuleTake 1 capsule by mouth three times daily for 10 days.Disp: 30 capsuleRfl: 0 XR CHEST 2V FRONTAL/LAT [[id number]] Order #: [id number] FUTURE CBC [SQCBC] Order #: [id number] FUTURE COMP METABOLIC PANEL [SQCMP] Order #: [id number] FUTURE HGB A1C [VCZME1O] Order #: [id number] FUTURE ALBUMIN/CREAT RATIO RND UR [SQUACR] Order #: [id number] FUTURE sertraline (ZOLOFT) 100 mg tabletTake 1 tablet by mouth once daily.Disp: 30 tabletRfl: 5 Magnesium 250 mg tabTake 1 tablet by mouth twice daily.Disp: Rfl: MAGNESIUM BLD [SQMG1] Order #: [id number] FUTURE Prescriptions as of 03/20/2018 Sig: SERTRALINE 100 MG TABLET Take 1 tablet by mouth once d* FLUTICASONE 500 MCG-SALMETERO* Inhale 1 Puff as instructed t* TERAZOSIN 10 MG CAPSULE Take 1 capsule by mouth daily* POLYETHYLENE GLYCOL 3350 17 G* use 1 (ONE) PACKET daily D* CLONIDINE 0.3 MG/24 HR WEEKLY* Apply 1 Patch as directed onc* GLIMEPIRIDE 4 MG TABLET Take 2 tablets by mouth daily* LANSOPRAZOLE 15 MG CAPSULE,DE* Take 1 capsule by mouth once * ONETOUCH ULTRA BLUE TEST STRIP Check 4x times a day. Dx: E11* ALLOPURINOL 300 MG TABLET TAKE 1 TABLET EVERY DAY for F* METFORMIN 500 MG TABLET Take 1 tablet by mouth three * CLOPIDOGREL 75 MG TABLET Take 1 tablet by mouth once d* SPIRONOLACTONE 25 MG TABLET TAKE 1 TABLET TWICE DAILY ATORVASTATIN 80 MG TABLET Take 0.5 tablets by mouth onc* METOPROLOL TARTRATE 50 MG TAB* Take 1 tablet by mouth twice * ACETAMINOPHEN 500 MG TABLET Take 2 tablets by mouth every* FINASTERIDE 5 MG TABLET Take 1 tablet by mouth once d* FERROUS SULFATE 325 MG (65 MG* Take 1 tablet by mouth once d* ALCOHOL PREP PADS use as directed COLACE 100 MG CAPSULE Take one(1) tablet two(2) tasha* MULTIVITAMIN TABLET Take one(1) tablet daily. INSULIN GLARGINE (U-100) 100 * Inject 30 Units subcutaneousl* CEPHALEXIN 500 MG CAPSULE Take 1 capsule by mouth three* BUDESONIDE-FORMOTEROL HFA 160* Inhale 2 Puffs as instructed * MAGNESIUM 250 MG TABLET Take 1 tablet by mouth twice * METOLAZONE 2.5 MG TABLET Take 1 tablet by mouth once d* FUROSEMIDE 80 MG TABLET take 1 tablet twice a day for* NUTRITIONAL SUPPLEMENTS ORAL * Take 237 mL by mouth twice da* LORATADINE 10 MG TABLET Take 10 mg by mouth once sunny* ALBUTEROL SULFATE HFA 90 MCG/* Inhale 2 Puffs as instructed * LOSARTAN 100 MG TABLET TAKE 1 TABLET BY MOUTH EVERY * LANCETS Use four times a day Dx: E1* PEN NEEDLE, DIABETIC 31 GAUGE* 1 Each once daily. Dx: 250.00* IPRATROPIUM-ALBUTEROL 0.5 MG-* Inhale 3 mL as instructed lucille* Problem List As Of Date 03/20/2018 Noted Resolved Unspecified Essential Hypertension [I10] INVALID FOR*12/12/2009 Esophageal Reflux [K21.9] 12/12/2009 Asthma [J45.909] Hypertension goal BP (blood pressure) < 150/90 * Other and Unspecified Hyperlipidemia [E78.5] 01/10/2010 Priority: A More... DM w/o Complication Type II [E11.9] 12/13/2009 Priority: E Gout, unspecified [M10.9] Obesity, Class III, BMI 40-49.9 (morbid obesity* Priority: I BPH W URINARY OBS/LUTS [N40.1] INVALID FOR* OPEN WOUND KNEE/LEG-COMPL [S81.009A, S81.809A, *INVALID FOR*08/21/2008 Lymphedema of both lower extremities [I89.0] INVALID FOR* Thoracic Aneurysm without Mention of Rupture [I*INVALID FOR*12/13/2009 Priority: A More... ASCVD [I25.10] INVALID FOR* More... Osteoarthritis of knee [M17.10] INVALID FOR* More... GERD [K21.9] More... More... More... More... Atelectasis/pleural effusion [J98.11] INVALID FOR*01/10/2010 Priority: C More... DM type 2, uncontrolled, with neuropathy (HCC) *INVALID FOR* More... CAD (mild per cath) [I25.10] INVALID FOR*03/22/2010 Priority: A More... Oliguria [R34] INVALID FOR*12/13/2009 Priority: C More... Acute Renal Insufficiency [N28.9] INVALID FOR*12/27/2009 Priority: C More... More... A-fib (HCC) [I48.91] INVALID FOR*03/02/2014 ARF (Acute Renal Failure) [N17.9] INVALID FOR*12/18/2009 More... Respiratory Failure, Acute [J96.00] INVALID FOR*12/18/2009 Priority: B More... Leukocytosis [D72.829] INVALID FOR*12/27/2009 Priority: D More... Hypernatremia [E87.0] INVALID FOR*12/27/2009 Priority: C More... H/o Pericardial Effusion (moderate on d/c) [I3*INVALID FOR*01/16/2010 Priority: A More... More... Anemia [D64.9] INVALID FOR*01/10/2010 Priority: B More... More... H/o Fever (upon admission) [R50.9] INVALID FOR*01/12/2010 Priority: C More... Malnutrition [E46] INVALID FOR*01/10/2010 More... Hyperlipidemia with target LDL less than 70 [E7*INVALID FOR* Pleural Effusion/atelectasis [J90] INVALID FOR*04/05/2013 Priority: B More... Gout [M10.9] INVALID FOR*03/22/2010 Priority: D More... Sepsis [A41.9] INVALID FOR*03/22/2010 Priority: C More... Hypokalemia [E87.6] INVALID FOR*03/22/2010 Priority: C More... Renal insufficiency [N28.9] INVALID FOR*03/22/2010 Priority: C More... Ascending aortic aneurysm [I71.2] INVALID FOR*04/05/2013 Dilated aortic root [I77.810] INVALID FOR*04/05/2013 Anemia [D64.9] INVALID FOR* CKD (chronic kidney disease) stage 3, GFR 30-59*INVALID FOR* COPD (chronic obstructive pulmonary disease) (H*INVALID FOR* More... Status post aortic valve replacement with prost*INVALID FOR* CVA (cerebral vascular accident) ([facility]) [I63.9] INVALID FOR*03/02/2014 More... Stasis leg ulcer ([facility]) [I83.009, L97.909] INVALID FOR* Pruritic disorder [L29.9] INVALID FOR* MIKO (obstructive sleep apnea) [G47.33] INVALID FOR* Pulmonary embolus ([facility]) [I26.99] INVALID FOR* Obsessive-compulsive disorder [F42.9] INVALID FOR* Acute congestive heart failure ([facility]) [I50.9] INVALID FOR* Prescriptions ordered this encounter Disp Refills Start End INSULIN GLARGINE (U-100) 100 UNIT/ML* 03/20/2018 Class: Med Update Route: SUBCUTANEOUS Sig: Inject 30 Units subcutaneously twice daily. CEPHALEXIN 500 MG CAPSULE 30 c* 0 03/20/2018 03/30/2018 Route: ORAL Sig: Take 1 capsule by mouth three times daily for 10 days. SERTRALINE 100 MG TABLET 30 t* 5 03/20/2018 Cmt: DISCONTINUE SERTRALINE 50 MG. Route: ORAL Sig: Take 1 tablet by mouth once daily. MAGNESIUM 250 MG TABLET 03/20/2018 Class: OTC Route: ORAL Sig: Take 1 tablet by mouth twice daily. Medications Discontinued During This Encounter ELIQUIS 5 mg tab(s) 60 t* 3 12/10/2017 03/20/2018 Sig: take 1 tablet twice a day for heart Disc: Course of therapy completed insulin glargine (LANTUS SOLOSTAR, B* 02/11/2018 03/20/2018 Class: Historical Med Route: SUBCUTANEOUS Sig: Inject 35 Units subcutaneously twice daily. Disc: Duplicate Entry montelukast (SINGULAIR) 10 mg tablet 11/05/2017 03/20/2018 Class: Historical Med Route: ORAL Sig: Take 1 tablet by mouth daily at bedtime. Disc: Reason for discontinue is not on file. tiotropium (SPIRIVA RESPIMAT) 2.5 mc* 02/11/2018 03/20/2018 Class: Historical Med Route: INHALATION Sig: Inhale 2 Puffs as instructed once daily. Disc: Reason for discontinue is not on file. fluticasone-vilanterol (BREO ELLIPTA* 02/11/2018 03/20/2018 Class: Historical Med Route: INHALATION Sig: Inhale 1 Inhalation as instructed once daily. Disc: Reason for discontinue is not on file. insulin glargine (LANTUS SOLOSTAR U-* 11/05/2017 03/20/2018 Class: Med Update Route: SUBCUTANEOUS Sig: Inject 35 Units subcutaneously twice daily. Disc: Duplicate Entry sertraline (ZOLOFT) 100 mg tablet 60 t* 5 11/05/2017 03/20/2018 Cmt: Discontinue sertraline 50 mg. Route: ORAL Sig: Take 1 tablet by mouth twice daily. Disc: Reason for discontinue is not on file. magnesium oxide (MAG-OX) 400 mg tabl* 01/16/2016 03/20/2018 Class: Historical Med Route: ORAL Sig: Take 2 tablets by mouth twice daily. Disc: Reason for discontinue is not on file. hydrOXYzine HCl (ATARAX) 25 mg tablet 90 t* 2 11/21/2016 03/20/2018 Cmt: Med-sync patient. If too soon, we will put new RX on hold for next cycle. Sig: TAKE 1 TABLET BY MOUTH THREE TIMES DAILY for nervous itching/scratching Disc: Reason for discontinue is not on file. fluticasone-salmeterol (ADVAIR DISKU* 11/05/2017 03/20/2018 Class: Historical Med Route: INHALATION Sig: Inhale 1 Puff as instructed twice daily. Disc: Reason for discontinue is not on file. apixaban (ELIQUIS) 5 mg tab(s) 60 t* 1 09/22/2017 03/20/2018 Class: Med Update Route: ORAL Sig: Take 1 tablet by mouth twice daily. Disc: Reason for discontinue is not on file. COMPOUNDED PRESCRIPTION 03/20/2018 Class: Historical Med Route: ORAL Sig: Take 2 tablets by mouth once daily. Mucus relief PE Disc: Reason for discontinue is not on file. Disposition: Return in about 2 months (around 05/20/2018), or if symptoms worsen or fail to improve. Follow-up and Disposition History Recorded Encounter Status:Closed by JACK VERDUGO MD on 03/20/18 PROGRESS Observed: 02/17/2018 Status: COMPLETED Source: [place] 7:57 AM [facility] REPOSITORY HNO ID: [id number] Author: Jack Verdugo Service: (none) Author Type: Physician Type: Progress Notes Filed: 02/17/2018 8:06 AM Note Text: This note was created using Reksoftriter. Subjective Everett Iyer is a 73 year old male here for follow up with his children. He was in [facility] for rehab where he continued to pick at his chronic leg ulcers. He was now back home and they were trying to help wrap his legs, but were in need of assistance. They were also frustrated Everett refused help with his medications. Compliance had been long suspect, and patient himself was not very clear as to what he was or was not taking. Family was interested in packaging medications. Apparently no home health has come since he was discharged from [facility]. ACTIVE PROBLEM LIST Asthma Hypertension Goal Bp (Blood Pressure) < 150/90 Gout, unspecified Obesity, Class Iii, Bmi 40-49.9 (Morbid Obesity) ([facility]) BPH W URINARY OBS/LUTS Lymphedema of Both Lower Extremities Unspecified Cardiovascular Disease Osteoarthritis of Knee GERD Dm Type 2, Uncontrolled, With Neuropathy ([facility]) Hyperlipidemia With Target Ldl Less Than 70 Anemia CKD (chronic kidney disease) stage 3, GFR 30-59 ml/min Copd (Chronic Obstructive Pulmonary Disease) ([facility]) Status Post Aortic Valve Replacement With Prosthetic Valve Stasis Leg Ulcer ([facility]) Pruritic Disorder Miko (Obstructive Sleep Apnea) Pulmonary Embolus ([facility]) Obsessive-Compulsive Disorder Acute Congestive Heart Failure ([facility]) Current Outpatient Prescriptions: Terazosin HCl (HYTRIN) 10 mg capsule Take 1 capsule by mouth daily at bedtime. metOLAzone (ZAROXOLYN) 2.5 mg tablet Take 1 tablet by mouth once daily. furosemide (LASIX) 80 mg tablet take 1 tablet twice a day for water pill polyethylene glycol 3350 (MIRALAX, GLYCOLAX) 17 gram packet use 1 (ONE) PACKET daily DIRECTED ELIQUIS 5 mg tab(s) take 1 tablet twice a day for heart cloNIDine TTS (CATAPRES-TTS) 0.3 mg/24 hr Apply 1 Patch as directed once each week. montelukast (SINGULAIR) 10 mg tablet Take 1 tablet by mouth daily at bedtime. fluticasone-salmeterol (ADVAIR DISKUS) 500-50 mcg/dose dsdv Inhale 1 Puff as instructed twice daily. insulin glargine (LANTUS SOLOSTAR U-100 INSULIN) 100 unit/mL (3 mL) inpn Inject 35 Units subcutaneously twice daily. sertraline (ZOLOFT) 100 mg tablet Take 1 tablet by mouth twice daily. glimepiride (AMARYL) 4 mg tablet Take 2 tablets by mouth daily with breakfast. lansoprazole (PREVACID) 15 mg capsule Take 1 capsule by mouth once daily. ONETOUCH ULTRA BLUE TEST STRIP test strip Check 4x times a day. Dx: E11.65. On insulin. Hypoglycemia. allopurinol (ZYLOPRIM) 300 mg tablet TAKE 1 TABLET EVERY DAY for FOR GOUT Nutritional Supplements (CANDIDO) pack Take 237 mL by mouth twice daily. apixaban (ELIQUIS) 5 mg tab(s) Take 1 tablet by mouth twice daily. metFORMIN (GLUCOPHAGE) 500 mg tablet Take 1 tablet by mouth three times daily with meals. loratadine (CLARITIN) 10 mg tablet Take 10 mg by mouth once daily. COMPOUNDED PRESCRIPTION Take 2 tablets by mouth once daily. Mucus relief PE albuterol HFA (VENTOLIN HFA) 90 mcg/actuation inhaler Inhale 2 Puffs as instructed every 4 hours as needed for Wheezing/Shortness of Breath. clopidogrel (PLAVIX) 75 mg tablet Take 1 tablet by mouth once daily. spironolactone (ALDACTONE) 25 mg tablet TAKE 1 TABLET TWICE DAILY atorvastatin (LIPITOR) 80 mg tablet Take 0.5 tablets by mouth once daily. metoprolol tartrate, short acting, (LOPRESSOR) 50 mg tablet Take 1 tablet by mouth twice daily. losartan (COZAAR) 100 mg tablet TAKE 1 TABLET BY MOUTH EVERY DAY hydrOXYzine HCl (ATARAX) 25 mg tablet TAKE 1 TABLET BY MOUTH THREE TIMES DAILY for nervous itching/scratching Lancets (ONETOUCH ULTRASOFT LANCETS) lancets Use four times a day Dx: E11.65 insulin needles, DISPOSABLE, (BD INSULIN PEN NEEDLE UF) 31 gauge x 5/16 ndle 1 Each once daily. Dx: 250.00 Insulin: yes magnesium oxide (MAG-OX) 400 mg tablet Take 2 tablets by mouth twice daily. ipratropium-albuterol (DUONEB) 0.5 mg-3 mg(2.5 mg base)/3 mL nebu Inhale 3 mL as instructed every 4 hours as needed (wheezing). Use over 5-15minutes per nebulizer. acetaminophen (TYLENOL EXTRA STRENGTH) 500 mg tablet Take 2 tablets by mouth every 6 hours as needed for Pain (Patient takes 2x/day). finasteride (PROSCAR) 5 mg tablet Take 1 tablet by mouth once daily. Ferrous Sulfate 325 mg (65 mg iron) tablet Take 1 tablet by mouth once daily. alcohol antiseptic pads(ALCOHOL PREP PADS) use as directed COLACE 100 MG CAP Take one(1) tablet two(2) times daily. MULTIVITAMIN TAB Take one(1) tablet daily. insulin glargine (LANTUS SOLOSTAR, BASAGLAR KWIKPEN) 100 unit/mL (3 mL) inpn Inject 35 Units subcutaneously twice daily. tiotropium (SPIRIVA RESPIMAT) 2.5 mcg/actuation inhaler Inhale 2 Puffs as instructed once daily. fluticasone-vilanterol (BREO ELLIPTA) 200-25 mcg/dose inhaler Inhale 1 Inhalation as instructed once daily. No current facility-administered medications for this visit. Review of Systems Constitutional: Negative for appetite change and fever. HENT: Negative. Respiratory: Negative. Chronic dyspnea. Cardiovascular: Positive for leg swelling. Negative for chest pain and palpitations. Gastrointestinal: Negative. Genitourinary: Negative. Musculoskeletal: Positive for gait problem. Skin: Positive for rash and wound. Psychiatric/Behavioral: Positive for behavioral problems. Picking wounds. Objective BP 152/70 (BP Site: Left Arm, BP Position: Sitting, BP Cuff Size: Large Adult) Pulse 96 Temp 36.8 ?C (98.2 ?F) (Right Tympanic) Resp 16 Wt (!) 157.9 kg (348 lb) SpO2 98% BMI 52.91 kg/m? Physical Exam Constitutional: He is oriented to person, place, and time. No distress. Morbid obesity, wheelchair bound, on O2. Eyes: Conjunctivae are normal. Neck: No JVD present. Cardiovascular: Normal heart sounds. Pulmonary/Chest: No respiratory distress. He has wheezes. He has no rales. Musculoskeletal: He exhibits edema. Neurological: He is alert and oriented to person, place, and time. Skin: Rash noted. There is erythema. Compression wraps in place. Raw excoriations above the wrappings. No yoly cellulitis. Assessment and Plan 1. Venous stasis ulcers of both lower extremities (HCC) - ICD9: 459.81, 707.10, ICD10: I83.019, I83.029, L97.919, L97.929 (primary diagnosis) 2. Need for vaccination - ICD9: V05.9, ICD10: Z23 - ADMIN OF INFLUENZA VACCINE - INFLUENZA SEASONAL HIGH DOSE AGE 65+ 3. Pruritic disorder - ICD9: 698.9, ICD10: L29.9 4. DM type 2, uncontrolled, with neuropathy (HCC) - ICD9: 250.62, 357.2, ICD10: E11.40, E11.65 Poor adherence to plan of care. - Continue current medications 5. Chronic obstructive pulmonary disease, unspecified COPD type (HCC) - ICD9: 496, ICD10: J44.9 Stable. Refer for care coordination, home health needs, medication reconciliation and adherence. Jack Verdugo MD PROGRESS Observed: 02/15/2018 Status: COMPLETED Source: [place] 10:46 AM [facility] REPOSITORY HNO ID: [id number] Author: Cailin Morillo [facility] Service: (none) Author Type: Registered Nurse Type: Progress Notes Filed: 02/15/2018 10:53 AM Note Text: PRIMARY CARE COORDINATION QUICK NOTE Provider Action/FYI None Patient identified by name and date . Unable to reach pt. LMOM CNOV Observed: 02/11/2018 Status: COMPLETED Source: [place] 6:40 PM [facility] REPOSITORY Office Visit ([facility]) EVERETT IYER ([id number]) 1945 M Date Time Provider Department 02/11/18 6:40 PM JACK VERDUGO [facility] During your visit today, we recorded the following information about you: Temperature Pulse Respiration Blood pressure 98.2 degrees 96/minute 16/minute 152/70 Weight 157.9 kg Awa Roderick 02/11/2018 7:23 PM Signed Influenza Vaccine Documentation: ? Patient is identified by name and date of : Yes ? Patient is older than 6 months of age: Yes ? Patient denies a severe allergy to any vaccine component or to a previous dose of influenza vaccine: Yes FOR EGG ALLERGY CONCERNS, REFER TO PROVIDER. ? Denies allergy to gelatin, formaldehyde, thimerosol :Yes ? Patient is afebrile and not moderately or severely ill: Yes ? Does the patient have a history of Guillain ?Olney Syndrome (a severe paralytic illness): No ? Denies bone marrow transplant prior 6 months or solid organ transplant prior 3 months: Yes ? Denies a history of fainting after a prior injection or medical procedure? Yes If patient has fainted in the past, the CDC recommends sitting or lying down for 15 minutes after the vaccination. ? VIS sheet provided: Yes ? See Immunization Form in [facility] for details of immunizations administered today. If patient reports dizziness, vision changes or ringing in the ears post vaccination ? please have patient sit or lie down for 15 minutes. Jack Verdugo MD 02/11/2018 7:43 PM Signed BRING ALL MEDICATION BOTTLES FOR REVIEW. Jakc Verdugo MD 02/17/2018 8:06 AM Signed This note was created using Reksoftriter. Subjective Everett Iyer is a 73 year old male here for follow up with his children. He was in [facility] for rehab where he continued to pick at his chronic leg ulcers. He was now back home and they were trying to help wrap his legs, but were in need of assistance. They were also frustrated Everett refused help with his medications. Compliance had been long suspect, and patient himself was not very clear as to what he was or was not taking. Family was interested in packaging medications. Apparently no home health has come since he was discharged from [facility]. ACTIVE PROBLEM LIST Asthma Hypertension Goal Bp (Blood Pressure) < 150/90 Gout, unspecified Obesity, Class Iii, Bmi 40-49.9 (Morbid Obesity) ([facility]) BPH W URINARY OBS/LUTS Lymphedema of Both Lower Extremities Unspecified Cardiovascular Disease Osteoarthritis of Knee GERD Dm Type 2, Uncontrolled, With Neuropathy ([facility]) Hyperlipidemia With Target Ldl Less Than 70 Anemia CKD (chronic kidney disease) stage 3, GFR 30-59 ml/min Copd (Chronic Obstructive Pulmonary Disease) ([facility]) Status Post Aortic Valve Replacement With Prosthetic Valve Stasis Leg Ulcer (Hcc) Pruritic Disorder Miko (Obstructive Sleep Apnea) Pulmonary Embolus ([facility]) Obsessive-Compulsive Disorder Acute Congestive Heart Failure ([facility]) Current Outpatient Prescriptions: Terazosin HCl (HYTRIN) 10 mg capsule Take 1 capsule by mouth daily at bedtime. metOLAzone (ZAROXOLYN) 2.5 mg tablet Take 1 tablet by mouth once daily. furosemide (LASIX) 80 mg tablet take 1 tablet twice a day for water pill polyethylene glycol 3350 (MIRALAX, GLYCOLAX) 17 gram packet use 1 (ONE) PACKET daily DIRECTED ELIQUIS 5 mg tab(s) take 1 tablet twice a day for heart cloNIDine TTS (CATAPRES-TTS) 0.3 mg/24 hr Apply 1 Patch as directed once each week. montelukast (SINGULAIR) 10 mg tablet Take 1 tablet by mouth daily at bedtime. fluticasone-salmeterol (ADVAIR DISKUS) 500-50 mcg/dose dsdv Inhale 1 Puff as instructed twice daily. insulin glargine (LANTUS SOLOSTAR U-100 INSULIN) 100 unit/mL (3 mL) inpn Inject 35 Units subcutaneously twice daily. sertraline (ZOLOFT) 100 mg tablet Take 1 tablet by mouth twice daily. glimepiride (AMARYL) 4 mg tablet Take 2 tablets by mouth daily with breakfast. lansoprazole (PREVACID) 15 mg capsule Take 1 capsule by mouth once daily. EatwaveTOUCH ULTRA BLUE TEST STRIP test strip Check 4x times a day. Dx: E11.65. On insulin. Hypoglycemia. allopurinol (ZYLOPRIM) 300 mg tablet TAKE 1 TABLET EVERY DAY for FOR GOUT Nutritional Supplements (CANDIDO) pack Take 237 mL by mouth twice daily. apixaban (ELIQUIS) 5 mg tab(s) Take 1 tablet by mouth twice daily. metFORMIN (GLUCOPHAGE) 500 mg tablet Take 1 tablet by mouth three times daily with meals. loratadine (CLARITIN) 10 mg tablet Take 10 mg by mouth once daily. COMPOUNDED PRESCRIPTION Take 2 tablets by mouth once daily. Mucus relief PE albuterol HFA (VENTOLIN HFA) 90 mcg/actuation inhaler Inhale 2 Puffs as instructed every 4 hours as needed for Wheezing/Shortness of Breath. clopidogrel (PLAVIX) 75 mg tablet Take 1 tablet by mouth once daily. spironolactone (ALDACTONE) 25 mg tablet TAKE 1 TABLET TWICE DAILY atorvastatin (LIPITOR) 80 mg tablet Take 0.5 tablets by mouth once daily. metoprolol tartrate, short acting, (LOPRESSOR) 50 mg tablet Take 1 tablet by mouth twice daily. losartan (COZAAR) 100 mg tablet TAKE 1 TABLET BY MOUTH EVERY DAY hydrOXYzine HCl (ATARAX) 25 mg tablet TAKE 1 TABLET BY MOUTH THREE TIMES DAILY for nervous itching/scratching Lancets (EatwaveTOUCH ULTRASOFT LANCETS) lancets Use four times a day Dx: E11.65 insulin needles, DISPOSABLE, (BD INSULIN PEN NEEDLE UF) 31 gauge x 5/16 ndle 1 Each once daily. Dx: 250.00 Insulin: yes magnesium oxide (MAG-OX) 400 mg tablet Take 2 tablets by mouth twice daily. ipratropium-albuterol (DUONEB) 0.5 mg-3 mg(2.5 mg base)/3 mL nebu Inhale 3 mL as instructed every 4 hours as needed (wheezing). Use over 5-15minutes per nebulizer. acetaminophen (TYLENOL EXTRA STRENGTH) 500 mg tablet Take 2 tablets by mouth every 6 hours as needed for Pain (Patient takes 2x/day). finasteride (PROSCAR) 5 mg tablet Take 1 tablet by mouth once daily. Ferrous Sulfate 325 mg (65 mg iron) tablet Take 1 tablet by mouth once daily. alcohol antiseptic pads(ALCOHOL PREP PADS) use as directed COLACE 100 MG CAP Take one(1) tablet two(2) times daily. MULTIVITAMIN TAB Take one(1) tablet daily. insulin glargine (LANTUS SOLOSTAR, BASAGLAR KWIKPEN) 100 unit/mL (3 mL) inpn Inject 35 Units subcutaneously twice daily. tiotropium (SPIRIVA RESPIMAT) 2.5 mcg/actuation inhaler Inhale 2 Puffs as instructed once daily. fluticasone-vilanterol (BREO ELLIPTA) 200-25 mcg/dose inhaler Inhale 1 Inhalation as instructed once daily. No current facility-administered medications for this visit. Review of Systems Constitutional: Negative for appetite change and fever. HENT: Negative. Respiratory: Negative. Chronic dyspnea. Cardiovascular: Positive for leg swelling. Negative for chest pain and palpitations. Gastrointestinal: Negative. Genitourinary: Negative. Musculoskeletal: Positive for gait problem. Skin: Positive for rash and wound. Psychiatric/Behavioral: Positive for behavioral problems. Picking wounds. Objective BP 152/70 (BP Site: Left Arm, BP Position: Sitting, BP Cuff Size: Large Adult) Pulse 96 Temp 36.8 ?C (98.2 ?F) (Right Tympanic) Resp 16 Wt (!) 157.9 kg (348 lb) SpO2 98% BMI 52.91 kg/m? Physical Exam Constitutional: He is oriented to person, place, and time. No distress. Morbid obesity, wheelchair bound, on O2. Eyes: Conjunctivae are normal. Neck: No JVD present. Cardiovascular: Normal heart sounds. Pulmonary/Chest: No respiratory distress. He has wheezes. He has no rales. Musculoskeletal: He exhibits edema. Neurological: He is alert and oriented to person, place, and time. Skin: Rash noted. There is erythema. Compression wraps in place. Raw excoriations above the wrappings. No yoly cellulitis. Assessment and Plan 1. Venous stasis ulcers of both lower extremities (HCC) - ICD9: 459.81, 707.10, ICD10: I83.019, I83.029, L97.919, L97.929 (primary diagnosis) 2. Need for vaccination - ICD9: V05.9, ICD10: Z23 - ADMIN OF INFLUENZA VACCINE - INFLUENZA SEASONAL HIGH DOSE AGE 65+ 3. Pruritic disorder - ICD9: 698.9, ICD10: L29.9 4. DM type 2, uncontrolled, with neuropathy (HCC) - ICD9: 250.62, 357.2, ICD10: E11.40, E11.65 Poor adherence to plan of care. - Continue current medications 5. Chronic obstructive pulmonary disease, unspecified COPD type (HCC) - ICD9: 496, ICD10: J44.9 Stable. Refer for care coordination, home health needs, medication reconciliation and adherence. Jack Verdugo MD Referring Provider: SELF [[id number]] Allergies As of Date: 02/11/2018 Noted Allergy Reaction LEVAQUIN (LEVOFLOXACIN) 05/13/2007 1 - Mental Status Change NALDECON SENIOR DX (DEXTROMETHORP*02/13/2005 5 - Intolerance NORVASC (AMLODIPINE BESYLATE) 02/13/2005 5 - Intolerance Date Reviewed: 02/11/2018 Reviewed by: Awa Vaughn - Fully Assessed Reason for Visit: 3 mo f/up [Other] Primary Visit Diagnosis:Venous stasis ulcers of both lower extremities (HCC) [I83.019, I83.029, L97.919, L97.929] Other Visit Diagnoses:Need for vaccination [Z23] Pruritic disorder [L29.9] DM type 2, uncontrolled, with neuropathy (HCC) [E11.40, E11.65] Chronic obstructive pulmonary disease, unspecified COPD type (HCC) [J44.9] Order(s):ADMIN OF INFLUENZA VACCINE [[id number]] Order #: [id number]: 1 INFLUENZA SEASONAL HIGH DOSE AGE 65+ [[id number]] Order #: [id number] Terazosin HCl (HYTRIN) 10 mg capsuleTake 1 capsule by mouth daily at bedtime.Disp: Rfl: GLUCOSE, BLOOD (POC) [[id number]] Order #: [id number]. #:[id number] [] Blood-Glucose Meter monitoring kitGlucose Meter of Choice - Kit - Dx: Type 2 DM - Uncontrolled E11.65Disp: 1 EachRfl: 0 Prescriptions as of 02/11/2018 Sig: TERAZOSIN 10 MG CAPSULE Take 1 capsule by mouth daily* METOLAZONE 2.5 MG TABLET Take 1 tablet by mouth once d* FUROSEMIDE 80 MG TABLET take 1 tablet twice a day for* POLYETHYLENE GLYCOL 3350 17 G* use 1 (ONE) PACKET daily D* ELIQUIS 5 MG TABLET take 1 tablet twice a day for* CLONIDINE 0.3 MG/24 HR WEEKLY* Apply 1 Patch as directed onc* MONTELUKAST 10 MG TABLET Take 1 tablet by mouth daily * FLUTICASONE 500 MCG-SALMETERO* Inhale 1 Puff as instructed t* INSULIN GLARGINE (U-100) 100 * Inject 35 Units subcutaneousl* SERTRALINE 100 MG TABLET Take 1 tablet by mouth twice * GLIMEPIRIDE 4 MG TABLET Take 2 tablets by mouth daily* LANSOPRAZOLE 15 MG CAPSULE,DE* Take 1 capsule by mouth once * EatwaveTOUCH ULTRA BLUE TEST STRIP Check 4x times a day. Dx: E11* ALLOPURINOL 300 MG TABLET TAKE 1 TABLET EVERY DAY for F* NUTRITIONAL SUPPLEMENTS ORAL * Take 237 mL by mouth twice da* APIXABAN 5 MG TABLET Take 1 tablet by mouth twice * METFORMIN 500 MG TABLET Take 1 tablet by mouth three * LORATADINE 10 MG TABLET Take 10 mg by mouth once sunny* COMPOUNDED PRESCRIPTION Take 2 tablets by mouth once * ALBUTEROL SULFATE HFA 90 MCG/* Inhale 2 Puffs as instructed * CLOPIDOGREL 75 MG TABLET Take 1 tablet by mouth once d* SPIRONOLACTONE 25 MG TABLET TAKE 1 TABLET TWICE DAILY ATORVASTATIN 80 MG TABLET Take 0.5 tablets by mouth onc* METOPROLOL TARTRATE 50 MG TAB* Take 1 tablet by mouth twice * LOSARTAN 100 MG TABLET TAKE 1 TABLET BY MOUTH EVERY * HYDROXYZINE HCL 25 MG TABLET TAKE 1 TABLET BY MOUTH THREE * LANCETS Use four times a day Dx: E1* PEN NEEDLE, DIABETIC 31 GAUGE* 1 Each once daily. Dx: 250.00* MAGNESIUM OXIDE 400 MG (241.3* Take 2 tablets by mouth twice* IPRATROPIUM-ALBUTEROL 0.5 MG-* Inhale 3 mL as instructed lucille* ACETAMINOPHEN 500 MG TABLET Take 2 tablets by mouth every* FINASTERIDE 5 MG TABLET Take 1 tablet by mouth once d* FERROUS SULFATE 325 MG (65 MG* Take 1 tablet by mouth once d* ALCOHOL PREP PADS use as directed COLACE 100 MG CAPSULE Take one(1) tablet two(2) tasha* MULTIVITAMIN TABLET Take one(1) tablet daily. INSULIN GLARGINE (U-100) 100 * Inject 35 Units subcutaneousl* TIOTROPIUM BROMIDE 2.5 MCG/AC* Inhale 2 Puffs as instructed * FLUTICASONE 200 MCG-VILANTERO* Inhale 1 Inhalation as instru* BLOOD-GLUCOSE METER KIT Glucose Meter of Choice - Kit* Medication notes this encounter FUROSEMIDE 80 MG TABLET >> Awa Vaughn 02/11/2018 6:53 PM >> AWA VAUGHN ThuFeb 11, 2018 6:53 PM Taking 20 mg bid ELIQUIS 5 MG TABLET >> Awa Vaughn 02/11/2018 6:52 PM >> AWA VAUGHN ThuFeb 11, 2018 6:52 PM States is not taking MONTELUKAST 10 MG TABLET >> Awa Vaughn 02/11/2018 6:59 PM >> AWA VAUGHN ThuFeb 11, 2018 6:59 PM Not taking INSULIN GLARGINE (U-100) 100 UNIT/ML (3 ML) SUBCUTANEOUS PEN >> Awa Gabrieldianne 02/11/2018 6:55 PM >> AWA VAUGHN Estefani Feb 11, 2018 6:55 PM Not taking APIXABAN 5 MG TABLET >> Awa Harveyl 02/11/2018 6:51 PM >> AWA VAUGHN ThuFeb 11, 2018 6:51 PM States is not taking HYDROXYZINE HCL 25 MG TABLET >> Awa Harveydianne 02/11/2018 6:54 PM >> AWA VAUGHN Estefani Feb 11, 2018 6:54 PM Not currently taking Problem List As Of Date 02/11/2018 Noted Resolved Unspecified Essential Hypertension [I10] INVALID FOR*12/12/2009 Esophageal Reflux [K21.9] 12/12/2009 Asthma [J45.909] Hypertension goal BP (blood pressure) < 150/90 * Other and Unspecified Hyperlipidemia [E78.5] 01/10/2010 Priority: A More... DM w/o Complication Type II [E11.9] 12/13/2009 Priority: E Gout, unspecified [M10.9] Obesity, Class III, BMI 40-49.9 (morbid obesity* Priority: I BPH W URINARY OBS/LUTS [N40.1] INVALID FOR* OPEN WOUND KNEE/LEG-COMPL [S81.009A, S81.809A, *INVALID FOR*08/21/2008 Lymphedema of both lower extremities [I89.0] INVALID FOR* Thoracic Aneurysm without Mention of Rupture [I*INVALID FOR*12/13/2009 Priority: A More... ASCVD [I25.10] INVALID FOR* More... Osteoarthritis of knee [M17.10] INVALID FOR* More... GERD [K21.9] More... More... More... More... Atelectasis/pleural effusion [J98.11] INVALID FOR*01/10/2010 Priority: C More... DM type 2, uncontrolled, with neuropathy (HCC) *INVALID FOR* More... CAD (mild per cath) [I25.10] INVALID FOR*03/22/2010 Priority: A More... Oliguria [R34] INVALID FOR*12/13/2009 Priority: C More... Acute Renal Insufficiency [N28.9] INVALID FOR*12/27/2009 Priority: C More... More... A-fib (HCC) [I48.91] INVALID FOR*03/02/2014 ARF (Acute Renal Failure) [N17.9] INVALID FOR*12/18/2009 More... Respiratory Failure, Acute [J96.00] INVALID FOR*12/18/2009 Priority: B More... Leukocytosis [D72.829] INVALID FOR*12/27/2009 Priority: D More... Hypernatremia [E87.0] INVALID FOR*12/27/2009 Priority: C More... H/o Pericardial Effusion (moderate on d/c) [I3*INVALID FOR*01/16/2010 Priority: A More... More... Anemia [D64.9] INVALID FOR*01/10/2010 Priority: B More... More... H/o Fever (upon admission) [R50.9] INVALID FOR*01/12/2010 Priority: C More... Malnutrition [E46] INVALID FOR*01/10/2010 More... Hyperlipidemia with target LDL less than 70 [E7*INVALID FOR* Pleural Effusion/atelectasis [J90] INVALID FOR*04/05/2013 Priority: B More... Gout [M10.9] INVALID FOR*03/22/2010 Priority: D More... Sepsis [A41.9] INVALID FOR*03/22/2010 Priority: C More... Hypokalemia [E87.6] INVALID FOR*03/22/2010 Priority: C More... Renal insufficiency [N28.9] INVALID FOR*03/22/2010 Priority: C More... Ascending aortic aneurysm [I71.2] INVALID FOR*04/05/2013 Dilated aortic root [I77.810] INVALID FOR*04/05/2013 Anemia [D64.9] INVALID FOR* CKD (chronic kidney disease) stage 3, GFR 30-59*INVALID FOR* COPD (chronic obstructive pulmonary disease) [J*INVALID FOR* Status post aortic valve replacement with prost*INVALID FOR* CVA (cerebral vascular accident) (HCC) [I63.9] INVALID FOR*03/02/2014 More... Stasis leg ulcer ([facility]) [I83.009, L97.909] INVALID FOR* Pruritic disorder [L29.9] INVALID FOR* MIKO (obstructive sleep apnea) [G47.33] INVALID FOR* Pulmonary embolus ([facility]) [I26.99] INVALID FOR* Obsessive-compulsive disorder [F42.9] INVALID FOR* Acute congestive heart failure (HCC) [I50.9] INVALID FOR* Other instructions from your clinician: BRING ALL MEDICATION BOTTLES FOR REVIEW. Visit Notes: >> Awa Vaughn [facility] Feb 11, 2018 7:05 PM Status: Signed Influenza Vaccine Documentation: ? Patient is identified by name and date of : Yes ? Patient is older than 6 months of age: Yes ? Patient denies a severe allergy to any vaccine component or to a previous dose of influenza vaccine: Yes FOR EGG ALLERGY CONCERNS, REFER TO PROVIDER. ? Denies allergy to gelatin, formaldehyde, thimerosol :Yes ? Patient is afebrile and not moderately or severely ill: Yes ? Does the patient have a history of Guillain ?Olney Syndrome (a severe paralytic illness): No ? Denies bone marrow transplant prior 6 months or solid organ transplant prior 3 months: Yes ? Denies a history of fainting after a prior injection or medical procedure? Yes If patient has fainted in the past, the CDC recommends sitting or lying down for 15 minutes after the vaccination. ? VIS sheet provided: Yes ? See Immunization Form in [facility] for details of immunizations administered today. If patient reports dizziness, vision changes or ringing in the ears post vaccination ? please have patient sit or lie down for 15 minutes. Prescriptions ordered this encounter Disp Refills Start End TERAZOSIN 10 MG CAPSULE 02/11/2018 Class: Med Update Route: ORAL Sig: Take 1 capsule by mouth daily at bedtime. BLOOD-GLUCOSE METER KIT 1 Ea* 0 02/11/2018 02/12/2018 Class: Print RX Sig: Glucose Meter of Choice - Kit - Dx: Type 2 DM - Uncontrolled E11.65 Medications Discontinued During This Encounter Terazosin HCl (HYTRIN) 10 mg capsule 90 c* 3 06/16/2014 02/11/2018 Route: ORAL Sig: Take 1 capsule by mouth daily at bedtime. Disc: Reason for discontinue is not on file. Disposition: Return in about 4 weeks (around 03/11/2018). Follow-up and Disposition History Recorded Encounter Status:Closed by JACK VERDUGO MD on 02/17/18 DISCHARGE INSTRUCTION Observed: 02/02/2018 Status: F Source: MARK 5:18 PM [facility] Medical Records Department [address] [place] [address] Discharge Instruction 02/02/187 MR#: [id number] Acct: [id number] Name: EVERETT IYER Rep #: [id number] : 1945 73 From: Polo Sung MD PCP: Jack Verdugo MD Status: REG ER ED Disposition - Plan for ED Patient: Disposition: Home or Assisted Living Chief Complaint: Hypoglycemia Instructions: ED Diabetes Hypoglycemia Insulin React Referrals: Jack Verdugo MD [Primary Care Provider] - What to do if you have Problems For any increased pain, shortness of breath, bleeding, nausea or vomiting, chest pain, or any unexpected problems, contact your Primary Care Provider. Call [email or web address] ([phone]) or report to the closest Emergency Room. Call 911 if necessary. 02/02/181716 <Electronically signed by Polo Sung MD> Date Polo Sung MD Cosigner Signature (If Indicated): Date CC: Jack Verdugo MD EMERGENCY DEPARTMENT Observed: 02/02/2018 Status: F Source: MARK SUMMARY 5:17 PM [facility] Medical Records Department [address] [place] [address] Emergency Department Summary 02/02/18 1521 MR#: [id number] Acct: [id number] Name: EVERETT IYER Rep #: [id number] : 1945 73 From: Polo Sung MD PCP: Jack Verdugo MD Status: REG ER - ER Visit Summary Date of Service: 02/02/18 Chief Complaint: Unresponsive episode, hypoglycemia History of Present Illness: The patient is a 73 M who was with his when he had an unresponsive episode. EMS was called and his blood sugar was 40. He was given D50 and blood sugar returned at 120. His mental status improved although now he is mildly tremulous. He states he takes 35 units of Lantus twice a day. states that he did not eat a lot for breakfast or lunch today. No recent changes in his insulin doses. Physical Examination: Vital signs reviewed. BMI 57. HEENT exam unremarkable. Heart is regular rate and rhythm without murmurs. Lungs are clear to auscultation. Abdomen is soft and nontender. Extremities reveal no edema. Skin exam shows chronic venous stasis in the legs bilaterally. Neurologic exam does show some mild tremulousness but no other acute findings. Test Results: Hemoglobin 8.9 which is baseline. Chemistry is normal. Blood glucose after juice is 105. Repeat is 132 Emergency Department Course and Treatment: Patient feels much better. Likely due to hypoglycemia. He will continue to eat tonight and will need a regular meal. He will follow-up with his PCP Treatment Plan: [] Disposition: Discharge Impression: Hypoglycemia This note was generated with [employer] dictation software. It may contain incorrect words, spelling, and punctuation that were not noted in review of the chart prior to signing ED Disposition - Plan for ED Patient: Chief Complaint: Hypoglycemia Referrals: Jack Verdugo MD [Primary Care Provider] - What to do if you have Problems For any increased pain, shortness of breath, bleeding, nausea or vomiting, chest pain, or any unexpected problems, contact your Primary Care Provider. Call [facility] ([phone]) or report to the closest Emergency Room. Call 911 if necessary. 02/02/18 0793 <Electronically signed by Polo Sung MD> Date Polo Sung MD Cosigner Signature (If Indicated): Date CC: Jack Verdugo MD BEDSIDE GLUCOSE Collected: 02/02/2018 Status: F Source: MARK 5:15 PM [facility] REPOSITORY TYPE CODE TESTS RESULT OUT OF REFERENCE UNITS RANGE LAB L501.080 70-110 mg/dL High BEDSIDE GLU 132 Result Comment: MANAGEMENT OF PATIENT CARE PER NURSING PROTOCOL Performed By: #### L501.080 #### [facility] Point of Care [address] [place] [address] BEDSIDE GLUCOSE Collected: 02/02/2018 Status: F Source: MARK 4:01 PM [facility] REPOSITORY TYPE CODE TESTS RESULT OUT OF RANGE REFERENCE UNITS LAB L501.080 70-110 mg/dL Normal BEDSIDE GLU 105 Result Comment: MANAGEMENT OF PATIENT CARE PER NURSING PROTOCOL Performed By: #### L501.080 #### [facility] Point of Care [address] [place] [address] BASIC METABOLIC Collected: 02/02/2018 Status: F Source: MARK PROFILE (BMP) 3:20 PM [facility] REPOSITORY TYPE CODE TESTS RESULT OUT OF RANGE REFERENCE UNITS LAB L501.0100 74-106 mg/dL Normal GLU 97 Result Comment: Please note revised GLUCOSE reference range effective 2017. LAB L501.1000 7-18 mg/dL Normal BUN 18 LAB L501.1100 0.70-1.30 mg/dL Normal CREAT,SERUM 1.02 Result Comment: The validity of the calculated GFR AND GFRAA in patients over 70 years has not been determined. Clinical correlation is essential. LAB L501.1110 >60 mL/min Normal EST GFR 76 Result Comment: Non- GFR Calc LAB L501.1115 >60 mL/min Normal EST GFR - AA 92 Result Comment: GFR Calc LAB L501.1255 ml/min Normal Estimated CRCL 60.54 LAB L501.1300 10-20 RATIO Normal BUN/CRE 17.6 LAB L501.2200 8.5-10 mg/dL Normal .1 CA 9.2 LAB L501.5300 136-14 mmol/L Normal 5 NA 139 LAB L501.5600 3.5-5. mmol/L Normal 1 K 4.4 LAB L501.5900 98-107 mmol/L Normal CL 102 LAB L501.6100 21.0-3 mmol/L Normal 2.0 CO2 32.0 LAB L501.6200 5-15 Normal GAP 5 Performed By: #### L500.2500 #### [facility] [address] [place], [place], [address] CBC W/DIFF, AUTOMATED Collected: 02/02/2018 Status: F Source: [place] 3:20 PM [facility] REPOSITORY TYPE CODE TESTS RESULT OUT OF RANGE REFERENCE UNITS LAB L100.1000 4.4-11.0 K/mm3 Normal WBC 7.9 LAB L100.1200 4.6-6.2 M/mm3 Low RBC 3.47 LAB L100.1300 13.0-16.5 g/dl Low HGB 8.9 LAB L100.1400 40-54 % Low HCT 30.0 LAB L100.1500 80-94 fL Normal MCV 86.5 LAB L100.1600 27.0-32.0 pg Low MCH 25.6 LAB L100.1700 32-36 g/gl Low MCHC 29.7 LAB L100.1810 11.6-14.6 % High RDW CV 17.1 LAB L100.1820 35.1-43.9 fl High RDW SD 54.2 LAB L100.1900 150-450 K/mm3 Normal PLT 232 LAB L100.2000 6.2-12.0 fl Normal MPV 8.6 LAB L100.2100 47-70 % High NEUT% 89.6 LAB L100.2200 19-41 % Low LY% 4.3 LAB L100.2300 0-10 % Normal MONO% 4.9 LAB L100.2400 0-5 % Normal EO% 0.8 LAB L100.2500 0-1 % Normal BASO% 0.1 LAB L100.2550 0.0-0.9 % Normal IM GRAN % 0.300 Result Comment: IG% - Immature Granulocytes (promyelocytes, myelocytes and metamyelocytes) > 1% indicates that a LEFT SHIFT is Present. LAB L100.2620 2.0-7.7 X10 3/uL Normal Absolute Neut 7.1 LAB L100.2720 0.83-4.51 X10 3/ul Low Absolute Lymph 0.34 LAB L100.4500 Normal SMEAR COMMENT SEE COMMENT Result Comment: LYMPHOPENIA NOTED LAB L100.5500 ADEQ Normal PLT ADEQUATE EST LAB L100.7000 NORM C AND NORMAL C Normal RED NORM C+C CELL MORPH Performed By: #### L100.0100 #### [facility] [address] [place], [address] BEDSIDE GLUCOSE Collected: 02/02/2018 Status: F Source: [place] 3:14 PM [facility] REPOSITORY TYPE CODE TESTS RESULT OUT OF RANGE REFERENCE UNITS LAB L501.080 70-110 mg/dL Normal BEDSIDE GLU 83 Result Comment: MANAGEMENT OF PATIENT CARE PER NURSING PROTOCOL Performed By: #### L501.080 #### [facility] Point of Care [address] [place], [place] [address] PULMONARY VISIT REPORT Observed: 01/12/2018 Status: F Source: [place] 1:34 PM [facility] REPOSITORY [facility] [address] [place] [address] OFFICE VISIT Date of Service: 01/12/18 MR#: [id number] Acct: [id number] Name: EVERETT IYER Rep #: [id number] : 1945 Provider: Khari Clay D.O. Age/Sex: 73/M [place] [facility] [place] [facility] [place] Status: Signed Assessment AND Plan 1. Chronic obstructive pulmonary disease, unspecified COPD type J44.9 FEV1 58% Plan The patient has known COPD and is currently on a triple therapy inhaler regimen, which will be continued without change. I have strongly advocated that the patient have updated PFTs completed, as they were last completed in 2016. However, the patient is currently in a rehab facility following a recent hospitalization. Therefore, we will defer ordering testing until his follow-up office visit. 2. Chronic hypoxemic respiratory failure J96.11 Plan Continue supplemental oxygen as prescribed. Recommend repeating 6 minute walk test once the patient is able to be discharged from his rehab facility. 3. MIKO (obstructive sleep apnea) G47.33 BiPAP 18/12 cm of water Plan The patient has a long-standing history of noncompliance with the use of BiPAP and continues to be noncompliant with its use, despite recommendations to the contrary. 4. Obesity E66.9 Plan Weight loss through dietary modification and a graded exercise regimen is strongly encouraged. Plan Detail Follow Up 6 Months ([facility]) HPI HPI Comments Details: The patient is a 73-year-old male who presents to the clinic today for a routine scheduled follow-up office visit due to underlying COPD and obstructive sleep apnea. If you recall, the patient has known moderately severe obstructive lung disease with significant response to aerosolized bronchodilators and evidence of air trapping and reduction in diffusing capacity, based off of PFTs completed in April 2016. The patient also has known severe obstructive sleep apnea, which was diagnosed in December 2015. His last surface echocardiogram from November 2015 showed evidence of a moderately dilated RV with RV systolic dysfunction and a right ventricular systolic pressure which was estimated to be 47 mmHg. The patient has an approximate [id number] smoking history, having quit in 1966. Patient eventually underwent a titration study which was recommended that he be placed on BiPAP therapy with a pressure setting of 18/12 cm of water. The patient was just hospitalized in November and treated for a COPD exacerbation. He has a known history of noncompliance with the use of nocturnal BiPAP therapy. The patient is currently in rehab at [facility]. Patient is currently utilizing supplemental oxygen at a flow rate of 4 L/min. Although he reports compliance with the use of Breo and Spiriva, he was not able to come in the names of his baseline maintenance inhalers. He reports that on average she utilizes his Ventolin rescue inhaler 1 time per day. He reports the presence of bilateral lower extremity edema along with chronic dyspnea on exertion. He has an intermittently productive cough. Although he does report compliance with the use of nocturnal BiPAP therapy, his compliance report from today's office visit clearly indicates that he is not utilizing his BiPAP as directed. Intake Vital Signs01/12/18 Height 5 ft 8 in 01/12/18 Weight: 375 lb 01/12/18 Body Mass Index (BMI) 56.9 Intake Visit Reasons: 3 M [employer] Required: No Accompanied by: Self Is patient in pain?: Yes Allergies naphazoline HCl [From Naphcon] Allergy (Severe, Verified 01/12/18 13:02) affected his breathing amlodipine besylate [From Norvasc] Allergy (Verified 01/12/18 13:02) Other dextromethorphan Allergy (Verified 01/12/18 13:02) Other levofloxacin [From Levaquin] Adverse Reaction (Mild, Verified 01/12/18 13:02) made me hyperactive Medications Allopurinol [Zyloprim] 300 mg PO DAILY 03/30/17 [History Confirmed 01/12/18] Atorvastatin Calcium [Lipitor] 40 mg PO QHS 03/30/17 [History Confirmed 01/12/18] Clonidine Patch [Catapres-Tts3] 0.3 mg TOPICAL FR 03/30/17 [History Confirmed 01/12/18] Clopidogrel Bisulfate [Plavix] 75 mg PO DAILY 03/30/17 [History Confirmed 01/12/18] Finasteride [Proscar] 5 mg PO DAILY 03/30/17 [History Confirmed 01/12/18] Glimepiride [Amaryl] 8 mg PO BREAKFAST 03/30/17 [History Confirmed 01/12/18] Hydroxyzine HCl 25 mg PO TID PRN 03/30/17 [History Confirmed 01/12/18] Insulin Glargine [Lantus SoloStar Pen] 35 units PO BID 03/30/17 [History Confirmed 01/12/18] Lansoprazole 15 mg PO DAILY 03/30/17 [History Confirmed 01/12/18] Losartan Potassium 100 mg PO DAILY 03/30/17 [History Confirmed 01/12/18] Magnesium Oxide [Mag-Ox 400] 800 mg PO BID 03/30/17 [History Confirmed 01/12/18] Metformin HCl [Glucophage] 500 mg PO TID 03/30/17 [History Confirmed 01/12/18] Metoprolol Tartrate [Lopressor (beta maryam)] 50 mg PO BID 03/30/17 [History Confirmed 01/12/18] Multivitamins,Therapeutic [Multivitamin] 1 tab PO DAILY@0800 03/30/17 [History Confirmed 01/12/18] Sertraline HCl [Zoloft] 50 mg PO QHS 03/30/17 [History Confirmed 01/12/18] Spironolactone 25 mg PO BID 03/30/17 [History Confirmed 01/12/18] Terazosin HCl [Hytrin] 10 mg PO QHS 03/30/17 [History Confirmed 01/12/18] Sertraline HCl [Zoloft] 100 mg PO DAILY 08/20/17 [History Confirmed 01/12/18] Docusate Sodium [Colace] 100 mg PO DAILY PRN PRN 12/09/17 [History Confirmed 01/12/18] Furosemide [Lasix] 20 mg PO LUNCH 12/09/17 [History Confirmed 01/12/18] Furosemide [Lasix] 40 mg PO DAILY 12/09/17 [History Confirmed 01/12/18] Loratadine 10 mg PO DAILY 12/09/17 [History Confirmed 01/12/18] Nystatin Powder [Mycostatin Powder] 1 applic TOPICAL BID PRN PRN 12/09/17 [History Confirmed 01/12/18] Olanzapine [Zyprexa] 2.5 mg PO DAILY 12/09/17 [History Confirmed 01/12/18] Albuterol Aerosols [Ventolin Aerosols] 2.5 mg INHALATION Q2H PRN PRN vial.neb. 12/14/17 [Rx Confirmed 01/12/18] Ascorbic Acid [Vitamin C] 500 mg PO BIDCM tab 12/14/17 [Rx Confirmed 01/12/18] Ferrous Sulfate 325 mg PO BIDCM tab 12/14/17 [Rx Confirmed 01/12/18] Guaifenesin [Mucinex] 1,200 mg PO BID tab 12/14/17 [Rx Confirmed 01/12/18] Prednisone See Taper PO DAILY #30 tab 12/14/17 [Rx Confirmed 01/12/18] acetaminophen 500 mg tablet 1,000 mg PO Q8H PRN PRN tab 12/29/17 [History Confirmed 01/12/18] fluticasone 200 mcg-vilanterol 25 mcg/dose powder for inhalation 1 inh INHALATION QDAY #60 ea 12/29/17 [Rx Confirmed 01/12/18] tiotropium bromide 2.5 mcg/actuation mist for inhalation 2 puff INHALATION QDAY 12/29/17 [History Confirmed 01/12/18] PFSH Medical History Thoracic aortic aneurysm without rupture (Chronic) Acute on chronic diastolic heart failure (Acute) Anemia (Acute) Coronary artery disease (Chronic) Hyperlipidemia (Chronic) Super obesity (Chronic) Bilateral leg edema (Chronic) Diabetes mellitus with neuropathy (Chronic) Acute on chronic respiratory failure with hypoxia and hypercapnia (Acute) CKD (chronic kidney disease), stage II (Chronic) Wheezing (Chronic) Dyspnea (Acute) MIKO (obstructive sleep apnea) (Chronic) HTN (hypertension) (Chronic) Tobacco abuse (Resolved) BPH (benign prostatic hypertrophy) (Chronic) Tinea unguium (Chronic) Diabetes mellitus with neuropathy (Chronic) Edema of both legs (Acute) Lymphedema of leg (Chronic) Multiple excoriations (Chronic) Asthma (Chronic) COPD (chronic obstructive pulmonary disease) (Acute) Arthritis (Chronic) Immobility (Chronic) Pulmonary embolism on right (Chronic) CAP (community acquired pneumonia) (Resolved) Adynamic ileus (Chronic) Ventral hernia (Chronic) Hypoglycemia (Chronic) Peripheral neuropathy (Chronic) Chronic anemia (Chronic) Benign prostatic hypertrophy without urinary obstruction (Chronic) CKD (chronic kidney disease), stage II (Chronic) CAD (coronary artery disease) (Chronic) Type II diabetes mellitus (Chronic) GERD (gastroesophageal reflux disease) (Chronic) Hypercholesteremia (Chronic) Morbid obesity (Chronic) Pulmonary hypertension (Chronic) Venous insufficiency (Chronic) CHF exacerbation (Resolved) Leg swelling (Inactive) Nausea and vomiting (Inactive) Tinea unguium (Inactive) Surgical History History of repair of thoracic aortic aneurysm (Chronic 12/11/09) H/O aortic valve replacement (Chronic 12/11/09) H/O hernia repair (Acute) Family History Brother TBI (traumatic brain injury) Sister Ulcerative colitis Social History adopted: No household members: spouse housing: house current occupational status: retired current occupational exposures/hazards: No pets and animals: No history of recent travel: No Smoking Status: Former smoker second hand exposure: Yes alcohol intake: never substance use type: does not use Review of Systems Const CONSTITUTIONAL: Positive seasonal allergies; negative anorexia, body ache, chills, daytime sleepiness, fever(s), night sweats, oral thrush, stops breathing during sleep, weight loss, sleeping in chair, fatigue, weight loss, weight gain, frequent colds, other, headache(s) or orthopnea EETM Ear Nose Throat Mouth: Positive hearing normal and nasal discharge; negative hard of hearing, hoarseness, dry mouth in morning, change in vision, itchy eyes, eye pain, swallowing Difficulty, ear pain, nose bleed, headache(s), mouth pain, nasal congestion, post nasal drip, sinus pain, sinus pressure, sore throat or other Cardio Cardiovascular: Positive edema Location: lower extremity; negative chest pain, chest pain at rest, chest pain with activity, irregular heart rhythm, shortness of breath when lying down, palpitations, murmur or other Resp Respiratory: Positive as per HPI and shortness of breath shortness of breath: Positive with activity and other (rest); negative pain with cough, wheezing, chest congestion, cough, chest tightness, pain on inspiration, inhalers, increase use of rescue inhalers, snoring, apnea or other Gastro Gastrointestional: Negative bloody stools, change in appetite, difficulty swallowing, reflux, hematemesis, melena stool, loose stool, constipation or other Genitourinary: Negative blood in urine, nocturia, pain with urination or other Musc Musculoskeletal: Negative body pain, back pain, neck pain or other Skin/Breast Skin/Breast: Negative dry skin, itching, unusual bruising, breast lump or other Neuro Neurological: Negative restless legs, confusion, weakness or other Psych Psychocological: Negative abnormal sleep pattern, anxiety, thoughts of hurting self/others, hopelessness or other Lymph Lymphatic: Negative easy bleeding, easy bruising, swollen lymph nodes or other Exam Const Constitutional: Positive conversant, cooperative, in no acute respiratory distress, well developed, well nourished, poor hygiene, obese and wearing supplemental oxygen Head Head: Positive normocephalic and atraumatic; negative cyanosis of lips/distal nose Eyes Eye: Positive clear conjunctiva; negative nystagmus or scleral abnormality Ears Ear: Positive hearing normal and external ears normal; negative hard of hearing Nose Nose: Positive external nose normal; negative epistaxis Mouth Mouth: Positive oral mucosae normal and posterior oropharynx is adequate; negative no lesions or post nasal drip Mallampati Score: III: Mallampati Score Neck Neck: Positive normal visual inspection, trachea midline and male neck greater than 43 cm (17 in); negative lymphadenopathy Chest Wall Chest: Positive symmetric chest movement Normal AP diameter. Resp lung sounds: Positive diminished diminished: Positive global; negative wheezes, rhonchi or rales Cardio Cardiac: Positive regular rate, regular rhythm, S1 normal and S2 normal; negative rub, gallop or murmur GI GI: Positive normal bowel sounds and obese Soft without distention Genitourinary: Positive deferred Musc Musculoskeletal: Positive in a wheelchair Pulses Pulse: Yes other Diminished peripheral pulses Extremities Extremities: No clubbing, No cyanosis, Yes edema Location: lower extremity, Yes stasis dermatitis Neuro Neurologic: Yes conversant, Yes no focal neuro deficits, Yes cooperative Lymph Lymphatic: No lymphadenopathy Psych Appearance: Positive grossly normal Mental Status: Positive mental status grossly normal Mood: Positive congruent mood Affect: Positive normal affect Coding Level of Care Code Off vis,est,level 3 Diagnoses Chronic obstructive pulmonary disease, unspecified COPD type J44.9 COPD type: unspecified COPD Chronic hypoxemic respiratory failure J96.11 MIKO (obstructive sleep apnea) G47.33 Obesity E66.9 01/12/18 1334 <Electronically signed by Khari Clay DO> Date Khari Clay DO Cosigner Signature: Date (if applicable) CC: Jack Verdugo MD PULMONARY VISIT REPORT Observed: 12/29/2017 Status: F Source: [place] 2:27 PM [facility] REPOSIT[facility] Pulmonary Medicine [address] [place] [address] OFFICE VISIT Date of Service: 12/29/17 MR#: [id number] Acct: [id number] Name: JAYLONEVERETT Dianne Rep #: [id number] : 1945 Provider: Mackenzie Wallace Age/Sex: 72/M Location: [facility] Status: Signed Assessment AND Plan 1. MIKO (obstructive sleep apnea) G47.33 Plan He is back home and back to good compliance with his BiPAP. He is currently using and benefitting from PAP therapy. Keep previously scheduled 01/12/18 with [facility]. 2. Chronic obstructive pulmonary disease, unspecified COPD type J44.9 Plan Does not appear to be an exacerbation of COPD today. No need for prednisone or antibiotic. Continue current maintenance medication. No additional testing at this time. Contact the office for any new or worsening symptoms. An acute visit and typically be arranged within 1-2 days. Follow-up as previously scheduled. 3. Moderate persistent asthma without complication J45.40 Plan No signs of exacerbation of asthma today. Provided with sample of Breo and refill prescription. No change in maintenance medications. No additional testing at this time. Contact the office with any signs of new or worsening symptoms. Follow-up as previousely scheduled. 4. Pulmonary hypertension I27.20 Plan Continue supplemental oxygen to maintain sats 89-92%. Annual walking oximetry. 5. Morbid obesity due to excess calories E66.01 Plan Continue to encourage weight loss. 6. Acute on chronic respiratory failure with hypoxia and hypercapnia J96.21; J96.22 Plan The patient is using and benefiting from oxygen. Continue to utilize to maintain a saturation of 89-92%. Follow-up as perviously scheduled. 7. Acute on chronic diastolic heart failure I50.33 Plan Continue compliance with diuretics and low sodium diet. Continue MIKE wraps twice weekly. 8. Pulmonary embolism on right I26.99 Plan Detail Other Medications New: [facility] FU: Chief Complaint: shortness of breath HPI Comments Details: This is a 72 year old very pleasant M, currently under the care of Jack Verdugo, here to follow up after a recent hospitalization at [facility], from December 09 - December 14, 2017 for chronic hypoxic respiratory failure, COPD exacerbation, acute on chronic diastolic CHF, obstructive sleep apnea. The hospital stay was relatively uncomplicated. 9 pages of hospital documentation was reviewed, and found to be significant for chest x-ray completed on December 11, 2017 showing improved aeration and improved vascular congestion as compared to prior study. Upon discharge, the patient completed a 12 day course of prednisone. Today, he presents the office in a wheelchair and wearing nasal cannula oxygen. He reports that overall he feels, well. Does endorse shortness of breath on activity only, denies any shortness of breath with conversation or rest. He denies any chest pain, palpitations, wheezing or chest tightness. He has a cough that is sometimes productive of thick yellow sputum. He denies any hemoptysis. He has not added any [id number] medications. Currently he is compliant with Spiriva daily. Breo is listed as a medication that he is on, he reports that he does not currently have any Breo, but admits that it looks familiar. He maintains compliance with Claritin and is using his rescue inhaler a few times daily. The rescue inhaler does provide him with temporary relief of his shortness of breath. See complete review of systems. He is currently using 3 L of nasal cannula oxygen at all times. He has return to compliance with Pap therapy since being discharged home. He denies any episodes of nocturia, dry mouth in the morning, snoring through the mask, daytime napping or falling asleep easily while watching TV. He does report occasional air leaks. 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: [employer] Accompanied by: None Is patient in pain?: Yes (left knee/shoulder) Pain scale (1- 10): 2 Allergies naphazoline HCl [From Naphcon] Allergy (Severe, Verified 12/22/17 09:06) affected his breathing amlodipine besylate [From Norvasc] Allergy (Verified 12/22/17 09:06) Other dextromethorphan Allergy (Verified 12/22/17 09:06) Other levofloxacin [From Levaquin] Adverse Reaction (Mild, Verified 12/22/17 09:06) made me hyperactive Medications Allopurinol [Zyloprim] 300 mg PO DAILY 03/30/17 [History Confirmed 12/22/17] Atorvastatin Calcium [Lipitor] 40 mg PO QHS 03/30/17 [History Confirmed 12/22/17] Clonidine Patch [Catapres-Tts3] 0.3 mg TOPICAL FR 03/30/17 [History Confirmed 12/22/17] Clopidogrel Bisulfate [Plavix] 75 mg PO DAILY 03/30/17 [History Confirmed 12/22/17] Finasteride [Proscar] 5 mg PO DAILY 03/30/17 [History Confirmed 12/22/17] Glimepiride [Amaryl] 8 mg PO BREAKFAST 03/30/17 [History Confirmed 12/22/17] Hydroxyzine HCl 25 mg PO TID PRN 03/30/17 [History Confirmed 12/22/17] Insulin Glargine [Lantus SoloStar Pen] 35 units PO BID 03/30/17 [History Confirmed 12/22/17] Lansoprazole 15 mg PO DAILY 03/30/17 [History Confirmed 12/19/17] Losartan Potassium 100 mg PO DAILY 03/30/17 [History Confirmed 12/22/17] Magnesium Oxide [Mag-Ox 400] 800 mg PO BID 03/30/17 [History Confirmed 12/22/17] Metformin HCl [Glucophage] 500 mg PO TID 03/30/17 [History Confirmed 12/22/17] Metoprolol Tartrate [Lopressor (beta maryam)] 50 mg PO BID 03/30/17 [History Confirmed 12/22/17] Multivitamins,Therapeutic [Multivitamin] 1 tab PO DAILY@0800 03/30/17 [History Confirmed 12/22/17] Sertraline HCl [Zoloft] 50 mg PO QHS 03/30/17 [History Confirmed 12/22/17] Spironolactone 25 mg PO BID 03/30/17 [History Confirmed 12/22/17] Terazosin HCl [Hytrin] 10 mg PO QHS 03/30/17 [History Confirmed 12/22/17] Sertraline HCl [Zoloft] 100 mg PO DAILY 08/20/17 [History Confirmed 12/22/17] Docusate Sodium [Colace] 100 mg PO DAILY PRN PRN 12/09/17 [History Confirmed 12/22/17] Furosemide [Lasix] 20 mg PO LUNCH 12/09/17 [History Confirmed 12/22/17] Furosemide [Lasix] 40 mg PO DAILY 12/09/17 [History Confirmed 12/22/17] Loratadine 10 mg PO DAILY 12/09/17 [History Confirmed 12/22/17] Nystatin Powder [Mycostatin Powder] 1 applic TOPICAL BID PRN PRN 12/09/17 [History Confirmed 12/22/17] Olanzapine [Zyprexa] 2.5 mg PO DAILY 12/09/17 [History Confirmed 12/22/17] Albuterol Aerosols [Ventolin Aerosols] 2.5 mg INHALATION Q2H PRN PRN vial.neb. 12/14/17 [Rx Confirmed 12/22/17] Ascorbic Acid [Vitamin C] 500 mg PO BIDCM tab 12/14/17 [Rx Confirmed 12/22/17] Ferrous Sulfate 325 mg PO BIDCM tab 12/14/17 [Rx Confirmed 12/22/17] Guaifenesin [Mucinex] 1,200 mg PO BID tab 12/14/17 [Rx Confirmed 12/22/17] Prednisone See Taper PO DAILY #30 tab 12/14/17 [Rx Confirmed 12/22/17] acetaminophen 500 mg tablet 1,000 mg PO Q8H PRN PRN tab 12/29/17 [History] fluticasone 200 mcg-vilanterol 25 mcg/dose powder for inhalation 1 inh INHALATION QDAY #60 ea 12/29/17 [Rx Confirmed 12/29/17] tiotropium bromide 2.5 mcg/actuation mist for inhalation 2 puff INHALATION QDAY 12/29/17 [History Confirmed 12/29/17] [facility] Medical History Thoracic aortic aneurysm without rupture (Chronic) Acute on chronic diastolic heart failure (Acute) Anemia (Acute) Coronary artery disease (Chronic) Hyperlipidemia (Chronic) Super obesity (Chronic) Bilateral leg edema (Chronic) Diabetes mellitus with neuropathy (Chronic) Acute on chronic respiratory failure with hypoxia and hypercapnia (Acute) CKD (chronic kidney disease), stage II (Chronic) Wheezing (Chronic) Dyspnea (Acute) MIKO (obstructive sleep apnea) (Chronic) HTN (hypertension) (Chronic) Tobacco abuse (Resolved) BPH (benign prostatic hypertrophy) (Chronic) Tinea unguium (Chronic) Diabetes mellitus with neuropathy (Chronic) Edema of both legs (Acute) Lymphedema of leg (Chronic) Multiple excoriations (Chronic) Asthma (Chronic) COPD (chronic obstructive pulmonary disease) (Acute) Arthritis (Chronic) Immobility (Chronic) Pulmonary embolism on right (Chronic) CAP (community acquired pneumonia) (Resolved) Adynamic ileus (Chronic) Ventral hernia (Chronic) Hypoglycemia (Chronic) Peripheral neuropathy (Chronic) Chronic anemia (Chronic) Benign prostatic hypertrophy without urinary obstruction (Chronic) CKD (chronic kidney disease), stage II (Chronic) CAD (coronary artery disease) (Chronic) Type II diabetes mellitus (Chronic) GERD (gastroesophageal reflux disease) (Chronic) Hypercholesteremia (Chronic) Morbid obesity (Chronic) Pulmonary hypertension (Chronic) Venous insufficiency (Chronic) CHF exacerbation (Resolved) Leg swelling (Inactive) Nausea and vomiting (Inactive) Tinea unguium (Inactive) Surgical History History of repair of thoracic aortic aneurysm (Chronic 12/11/09) H/O aortic valve replacement (Chronic 12/11/09) H/O hernia repair (Acute) Family History Brother TBI (traumatic brain injury) Sister Ulcerative colitis Social History adopted: No household members: spouse housing: house current occupational status: retired current occupational exposures/hazards: No pets and animals: No history of recent travel: No Smoking Status: Former smoker second hand exposure: Yes alcohol intake: never substance use type: does not use Review of Systems Const CONSTITUTIONAL: Positive fatigue; negative anorexia, body ache, chills, daytime sleepiness, fever(s), night sweats, oral thrush, stops breathing during sleep, weight loss, sleeping in chair, weight loss, weight gain, frequent colds, seasonal allergies, other, headache(s) or orthopnea EETM Ear Nose Throat Mouth: Positive hearing normal; negative hard of hearing, hoarseness, dry mouth in morning, change in vision, itchy eyes, eye pain, swallowing Difficulty, ear pain, nose bleed, headache(s), mouth pain, nasal congestion, nasal discharge, post nasal drip, sinus pain, sinus pressure, sore throat or other Cardio Cardiovascular: Negative chest pain, chest pain at rest, chest pain with activity, irregular heart rhythm, edema, shortness of breath when lying down, palpitations, murmur or other Resp Respiratory: Positive shortness of breath shortness of breath: Positive with activity, wheezing, chest congestion, cough cough: Positive productive color: Positive yellow and thick, increase use of rescue inhalers (occasional use once or twice daily ) and apnea; negative as per HPI, pain with cough, chest tightness, pain on inspiration, inhalers, snoring or other Gastro Gastrointestional: Negative bloody stools, change in appetite, difficulty swallowing, reflux, hematemesis, melena stool, loose stool, constipation or other Genitourinary: Negative blood in urine, nocturia, pain with urination or other Musc Musculoskeletal: Negative body pain, back pain, neck pain or other Skin/Breast Skin/Breast: Negative dry skin, itching, rash, unusual bruising, breast lump or other Neuro Neurological: Negative restless legs, confusion, weakness or other Psych Psychocological: Negative abnormal sleep pattern, anxiety, thoughts of hurting self/others, hopelessness or other Lymph Lymphatic: Negative easy bleeding, easy bruising, swollen lymph nodes or other Exam Const Constitutional: Positive conversant, cooperative, in no acute respiratory distress, well developed, well nourished, frail appearing, wearing supplemental oxygen, dyspenic, obese and poor hygiene Head Head: Positive normocephalic and atraumatic; negative cyanosis of lips/distal nose Eyes Eye: Positive clear conjunctiva; negative nystagmus or scleral abnormality Ears Ear: Positive hearing normal and external ears normal; negative hard of hearing Nose Nose: Positive external nose normal and no nasal discharge; negative epistaxis Mouth Mouth: Positive oral mucosae normal, no lesions and crowded posterior oropharynx; negative post nasal drip, malodorous breath or oral thrush present Mallampati Score: III: Mallampati Score Neck Neck: Positive normal visual inspection, full ROM and trachea midline; negative lymphadenopathy, JVD or tender Chest Wall Chest: Positive normal inspection of the chest and symmetric chest movement; negative increased A/P diameter Resp lung sounds: Positive clear to auscultation, diminished, normal expiratory time and normal respiratory effort; negative wheezes, rhonchi, rales, dullness to percussion or wheeze present on forced exhalation Cardio Cardiac: Positive regular rate, regular rhythm, S1 normal and S2 normal; negative murmur GI GI: Positive normal to inspection, normal bowel sounds and obese; negative distended Genitourinary: Positive deferred Musc Musculoskeletal: Positive ROM normal and in a wheelchair; negative kyphosis or scoliosis Skin Pulmonary Skin Exam: Positive intact; negative rash, lesion, ulcers, erythema, scaly or dermal atrophy Pulses Pulse: Yes pulses normal x4 extremities Extremities Extremities: Yes capillary refill normal, No clubbing, No cyanosis, Yes edema Location: lower extremity location: Bilateral pitting +1 Neuro Neurologic: Yes conversant, Yes no focal neuro deficits, Yes normal concentration, Yes understands questions, Yes cooperative, Yes normal cognition, Yes normal coordination, No tremor Lymph Lymphatic: No lymphadenopathy, No tenderness, No cervical adenopathy, No axillary adenopathy Psych Appearance: Positive grossly normal, eye contact and well kempt Mental Status: Positive mental status grossly normal Mood: Positive congruent mood Affect: Positive normal affect Coding Level of Care Code Off vis,est,level 3 Diagnoses MIKO (obstructive sleep apnea) G47.33 Chronic obstructive pulmonary disease, unspecified COPD type J44.9 COPD type: unspecified COPD Moderate persistent asthma without complication J45.40 Asthma complication type: uncomplicated Asthma persistence: persistent Asthma severity: moderate Pulmonary hypertension I27.20 Morbid obesity due to excess calories E66.01 Acute on chronic respiratory failure with hypoxia and hypercapnia J96.21; J96.22 Acute on chronic diastolic heart failure I50.33 Pulmonary embolism on right I26.99 12/29/17 1427 <Electronically signed by Mackenzie CRAWFORD> Date Mackenzie CRAWFORD Cosigner Signature: Date (if applicable) CC: Jack Verdugo MD SURGERY VISIT REPORT Observed: 12/22/2017 Status: F Source: [place] 9:35 AM [facility] REPOSITORY [facility] [address] [place] [address]. 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 Is patient in pain?: No Allergies naphazoline HCl [From Naphcon] Allergy (Severe, Verified 12/22/17 09:06) affected his breathing amlodipine besylate [From Norvasc] Allergy (Verified 12/22/17 09:06) Other dextromethorphan Allergy (Verified 12/22/17 09:06) Other levofloxacin [From Levaquin] Adverse Reaction (Mild, Verified 12/22/17 09:06) made me hyperactive Medications Allopurinol [Zyloprim] 300 mg PO DAILY 03/30/17 [History Confirmed 12/22/17] Atorvastatin Calcium [Lipitor] 40 mg PO QHS 03/30/17 [History Confirmed 12/22/17] Clonidine Patch [Catapres-Tts3] 0.3 mg TOPICAL FR 03/30/17 [History Confirmed 12/22/17] Clopidogrel Bisulfate [Plavix] 75 mg PO DAILY 03/30/17 [History Confirmed 12/22/17] Finasteride [Proscar] 5 mg PO DAILY 03/30/17 [History Confirmed 12/22/17] Glimepiride [Amaryl] 8 mg PO BREAKFAST 03/30/17 [History Confirmed 12/22/17] Hydroxyzine HCl 25 mg PO TID PRN 03/30/17 [History Confirmed 12/22/17] Insulin Glargine [Lantus SoloStar Pen] 35 units PO BID 03/30/17 [History Confirmed 12/22/17] Lansoprazole 15 mg PO DAILY 03/30/17 [History Confirmed 12/19/17] Losartan Potassium 100 mg PO DAILY 03/30/17 [History Confirmed 12/22/17] Magnesium Oxide [Mag-Ox 400] 800 mg PO BID 03/30/17 [History Confirmed 12/22/17] Metformin HCl [Glucophage] 500 mg PO TID 03/30/17 [History Confirmed 12/22/17] Metoprolol Tartrate [Lopressor (beta amryam)] 50 mg PO BID 03/30/17 [History Confirmed 12/22/17] Multivitamins,Therapeutic [Multivitamin] 1 tab PO DAILY@0800 03/30/17 [History Confirmed 12/22/17] Sertraline HCl [Zoloft] 50 mg PO QHS 03/30/17 [History Confirmed 12/22/17] Spironolactone 25 mg PO BID 03/30/17 [History Confirmed 12/22/17] Terazosin HCl [Hytrin] 10 mg PO QHS 03/30/17 [History Confirmed 12/22/17] Fluticasone/Salmeterol [Advair 500-50 Diskus] 2 puff INHALATION Q12H 08/20/17 [History Confirmed 12/22/17] Sertraline HCl [Zoloft] 100 mg PO DAILY 08/20/17 [History Confirmed 12/22/17] Acetaminophen [Tylenol] 1,000 mg PO Q8H PRN PRN tab 09/08/17 [Rx Confirmed 12/22/17] Docusate Sodium [Colace] 100 mg PO DAILY PRN PRN 12/09/17 [History Confirmed 12/22/17] Furosemide [Lasix] 20 mg PO LUNCH 12/09/17 [History Confirmed 12/22/17] Furosemide [Lasix] 40 mg PO DAILY 12/09/17 [History Confirmed 12/22/17] Loratadine 10 mg PO DAILY 12/09/17 [History Confirmed 12/22/17] Nystatin Powder [Mycostatin Powder] 1 applic TOPICAL BID PRN PRN 12/09/17 [History Confirmed 12/22/17] Olanzapine [Zyprexa] 2.5 mg PO DAILY 12/09/17 [History Confirmed 12/22/17] Tiotropium [place] [Spiriva] 18 mcg IH DAILY 12/09/17 [History Confirmed 12/22/17] Albuterol Aerosols [Ventolin Aerosols] 2.5 mg INHALATION Q2H PRN PRN vial.neb. 12/14/17 [Rx Confirmed 12/22/17] Ascorbic Acid [Vitamin C] 500 mg PO BIDCM tab 12/14/17 [Rx Confirmed 12/22/17] Ferrous Sulfate 325 mg PO BIDCM tab 12/14/17 [Rx Confirmed 12/22/17] Guaifenesin [Mucinex] 1,200 mg PO BID tab 12/14/17 [Rx Confirmed 12/22/17] Prednisone See Taper PO DAILY #30 tab 12/14/17 [Rx Confirmed 12/22/17] [facility] Medical History Thoracic aortic aneurysm without rupture (Chronic) Acute on chronic diastolic heart failure (Acute) Anemia (Acute) Coronary artery disease (Chronic) Hyperlipidemia (Chronic) Super obesity (Chronic) Bilateral leg edema (Chronic) Diabetes mellitus with neuropathy (Chronic) Acute on chronic respiratory failure with hypoxia and hypercapnia (Acute) CKD (chronic kidney disease), stage II (Chronic) Wheezing (Chronic) Dyspnea (Acute) MIKO (obstructive sleep apnea) (Chronic) HTN (hypertension) (Chronic) Tobacco abuse (Resolved) BPH (benign prostatic hypertrophy) (Chronic) Tinea unguium (Chronic) Diabetes mellitus with neuropathy (Chronic) Edema of both legs (Acute) Lymphedema of leg (Chronic) Multiple excoriations (Chronic) Asthma (Chronic) COPD (chronic obstructive pulmonary disease) (Acute) Arthritis (Chronic) Immobility (Chronic) Pulmonary embolism on right (Chronic) CAP (community acquired pneumonia) (Resolved) Adynamic ileus (Chronic) Ventral hernia (Chronic) Hypoglycemia (Chronic) Peripheral neuropathy (Chronic) Chronic anemia (Chronic) Benign prostatic hypertrophy without urinary obstruction (Chronic) CKD (chronic kidney disease), stage II (Chronic) CAD (coronary artery disease) (Chronic) Type II diabetes mellitus (Chronic) GERD (gastroesophageal reflux disease) (Chronic) Hypercholesteremia (Chronic) Morbid obesity (Chronic) Pulmonary hypertension (Chronic) Venous insufficiency (Chronic) CHF exacerbation (Resolved) Leg swelling (Inactive) Nausea and vomiting (Inactive) Tinea unguium (Inactive) Surgical History History of repair of thoracic aortic aneurysm (Chronic 12/11/09) H/O aortic valve replacement (Chronic 12/11/09) H/O hernia repair (Acute) Family History Brother TBI (traumatic brain injury) Sister Ulcerative colitis Social History adopted: No household members: spouse housing: house current occupational status: retired current occupational exposures/hazards: No pets and animals: No history of recent travel: No Smoking Status: Former smoker second hand exposure: Yes alcohol intake: never substance use type: does not use HPI HPI HPI: EVERETT IYER, is a 72 M who presents to the office today for evaluation for both an upper and lower endoscopy. Patient was recently admitted to [facility] on 12/09/2017 due to shortness of breath he was noted to be anemic and received 3 units of packed red blood cells in transfusion. His stools were negative for occult blood and he was to follow-up with me this day to get scheduled for an upper and lower endoscopy which we kept on hold while he was in the hospital. Patient states that he has not noticed any obvious blood loss. And at the present time he is not complaining of any shortness of breath. He has had upper and lower endoscopies in the past but he cannot recall how long ago they have been. ROS General General: Yes weakness; no weight change, appetite, fatigue, colon cancer or breast cancer HEENT HEENT: No difficulty swallowing, eye injury, eye surgery, swollen glands or hoarseness Endo Endocrine: Yes diabetes mellitus; no thyroid disease, thyroid cancer, Hair loss, heat intolerance or cold intolerance Skin Skin: No rash or changing moles Breast Breast: No left breast lump, right breast lump, nipple discharge, breast pain, abnormal mammogram, abnormal US or breast enlargement Musc Musculoskeletal: Yes arthritis; no back problems, rheumatoid arthritis, gout or joint pain Cardio Cardiovascular: Yes heart disease; no murmur, pacemaker, atrial fibrillation, high blood pressure, heart attack, heart stent, palpitations, shortness of breat with exertion or chest pain Psych Psychiatric: Yes depression; no anxiety or hearing voices Resp Respiratory: Yes shortness of breath, Yes sleep apnea, Yes COPD, Yes asthma, No cough, No emphysema, No wheezing Gastro Gastrointestinal: Yes acid reflux, No abdominal pain, No nausea or vomiting, No diarrhea, No constipation, No blood in stool, No hemorrhoids, No ulcers, No gallbladder problem, No black,tarry stools Mike Hematologic: Yes blood thinners, Yes anemia, No blood disorders, No bleeding, No blood clots Neuro Neurologic: Yes weakness, Yes tingling, Yes numbness, No system reviewed and no additional complaints, except as docu, No as per HPI, No abnormal walking, No abnormal hearing, No abnormal movements, No abnormal speech, No behavioral changes, No burning sensations, No confusion, No seizure-like activity, No unsteadiness, No dizziness, No localized weakness, No frequent falls, No headache(s), No lack of coordination, No loss of vision, No memory loss, No other visual disturbances, No radiating pain, No restless legs, No sensory deficit, No fainting, No tremor(s), No other Exam Const General: well developed, no acute distress, well hydrated Orientation: oriented to person, oriented to place, oriented to time [facility] Head: normocephalic, atraumatic Ears: external ears normal Mouth: moist mucous membranes Eyes Sclera: sclerae normal Pupils: normal by confrontation Neck Neck: no lymphadenopathy noted Neck mass: No Thyroid: symmetrical, thyroid normal Chest Chest palpation AND inspection: normal inspection of the chest Breast Palpation: No nipple discharge Resp Effort AND Inspection: normal respiratory effort Auscultation: clear to auscultation bilaterally Percussion: percussion normal Cardio Rate: regular rate Rhythm: regular rhythm Heart Sounds: no murmurs GI Palpation: soft, no masses, no hepatosplenomegaly, nontender Rectal Exam: other Other: Rectal exam deferred. Extrem General: no clubbing, cyanosis or edema, normal to inspection Assessment AND Plan Problems 1. Iron deficiency anemia, unspecified iron deficiency anemia type D50.9 Plan I have discussed the above with the patient. I have offered the patient colonoscopy as well as an esophagogastroduodenoscopy. For evaluation. I have explained the risks/benefits of the procedure and described the procedure. I have discussed the risks with the patient, including but not limited to: infection, bleeding, perforation of the GI tract requiring emergency surgery, inability to complete the procedure, injury to any internal organs, complications of anesthesia, etc. - the patient understands and agrees to proceed. I have answered all the patient's questions to the patient's satisfaction and the patient has no further questions. The patient has been given instructions for the colon cleansing preparation. Coding Level of Care Code Off vis,est,level 3 Diagnoses Iron deficiency anemia, unspecified iron deficiency anemia type D50.9 Anemia type: iron deficiency Iron deficiency anemia type: unspecified iron deficiency 12/22/17 0935 <Electronically signed by Brice Garcia MD> Date Brice Garcia MD Cosigner Signature: Date (if applicable) CC: Jack Verdugo MD PROGRESS Observed: 12/21/2017 Status: COMPLETED Source: [place] 2:11 PM [facility] REPOSITORY HNO ID: [id number] Author: Melinda Hills Cma Service: (none) Author Type: (none) Type: Progress Notes Filed: 12/21/2017 2:11 PM Note Text: Letter mailed to patient. PROGRESS Observed: 12/21/2017 Status: COMPLETED Source: [place] 2:08 PM [facility] REPOSITORY HNO ID: [id number] Author: Melinda Hills Cma Service: (none) Author Type: (none) Type: Progress Notes Filed: 12/21/2017 2:11 PM Note Text: Discussed at teamlet. Patient currently in [place], but has upcoming appointment with PCP on 02/11/18. UACR ordered, other labs not due. I will send appointment reminder with attached DM reminder and release form. AURE Observed: 12/21/2017 Status: COMPLETED Source: [place] 12:00 AM [facility] REPOSITORY Patient Outreach (INTMWS) EVERETT IYER ([id number]) 1945 M Date Time Provider Department 12/21/17 MELINDA HILLS ([facility]) INTMWS During your visit today, we recorded the following information about you: Melinda Hills Cma 12/21/2017 2:11 PM Signed Discussed at teamlet. Patient currently in [place], but has upcoming appointment with PCP on 02/11/18. UACR ordered, other labs not due. I will send appointment reminder with attached DM reminder and release form. Melinda Hills Screw Down 12/21/2017 2:11 PM Signed Letter mailed to patient. Allergies As of Date: 12/21/2017 Noted Allergy Reaction LEVAQUIN (LEVOFLOXACIN) 05/13/2007 1 - Mental Status Change NALDECON SENIOR DX (DEXTROMETHORP*02/13/2005 5 - Intolerance NORVASC (AMLODIPINE BESYLATE) 02/13/2005 5 - Intolerance Date Reviewed: 11/05/2017 Reviewed by: Awa Vaughn - Fully Assessed Reason for Visit: PHMA/[facility] Outreach [[id number]] Primary Visit Diagnosis:DM type 2, uncontrolled, with neuropathy (HCC) [E11.40, E11.65] Prescriptions as of 12/21/2017 Sig: FUROSEMIDE 80 MG TABLET take 1 tablet twice a day for* POLYETHYLENE GLYCOL 3350 17 G* use 1 (ONE) PACKET daily D* ELIQUIS 5 MG TABLET take 1 tablet twice a day for* CLONIDINE 0.3 MG/24 HR WEEKLY* Apply 1 Patch as directed onc* MONTELUKAST 10 MG TABLET Take 1 tablet by mouth daily * FLUTICASONE 500 MCG-SALMETERO* Inhale 1 Puff as instructed t* INSULIN GLARGINE (U-100) 100 * Inject 35 Units subcutaneousl* SERTRALINE 100 MG TABLET Take 1 tablet by mouth twice * GLIMEPIRIDE 4 MG TABLET Take 2 tablets by mouth daily* LANSOPRAZOLE 15 MG CAPSULE,DE* Take 1 capsule by mouth once * [employer] BLUE TEST STRIP Check 4x times a day. Dx: E11* ALLOPURINOL 300 MG TABLET TAKE 1 TABLET EVERY DAY for F* NUTRITIONAL SUPPLEMENTS ORAL * Take 237 mL by mouth twice da* APIXABAN 5 MG TABLET Take 1 tablet by mouth twice * METFORMIN 500 MG TABLET Take 1 tablet by mouth three * LORATADINE 10 MG TABLET Take 10 mg by mouth once sunny* COMPOUNDED PRESCRIPTION Take 2 tablets by mouth once * ALBUTEROL SULFATE HFA 90 MCG/* Inhale 2 Puffs as instructed * CLOPIDOGREL 75 MG TABLET Take 1 tablet by mouth once d* SPIRONOLACTONE 25 MG TABLET TAKE 1 TABLET TWICE DAILY ATORVASTATIN 80 MG TABLET Take 0.5 tablets by mouth onc* METOPROLOL TARTRATE 50 MG TAB* Take 1 tablet by mouth twice * LOSARTAN 100 MG TABLET TAKE 1 TABLET BY MOUTH EVERY * HYDROXYZINE HCL 25 MG TABLET TAKE 1 TABLET BY MOUTH THREE * LANCETS Use four times a day Dx: E1* PEN NEEDLE, DIABETIC 31 GAUGE* 1 Each once daily. Dx: 250.00* MAGNESIUM OXIDE 400 MG TABLET Take 2 tablets by mouth twice* IPRATROPIUM-ALBUTEROL 0.5 MG-* Inhale 3 mL as instructed lucille* ACETAMINOPHEN 500 MG TABLET Take 2 tablets by mouth every* TERAZOSIN 10 MG CAPSULE Take 1 capsule by mouth daily* FINASTERIDE 5 MG TABLET Take 1 tablet by mouth once d* FERROUS SULFATE 325 MG (65 MG* Take 1 tablet by mouth once d* ALCOHOL PREP PADS use as directed COLACE 100 MG CAPSULE Take one(1) tablet two(2) tasha* MULTIVITAMIN TABLET Take one(1) tablet daily. Problem List As Of Date 12/21/2017 Noted Resolved Unspecified Essential Hypertension [I10] INVALID FOR*12/12/2009 Esophageal Reflux [K21.9] 12/12/2009 Asthma [J45.909] Hypertension goal BP (blood pressure) < 150/90 * Other and Unspecified Hyperlipidemia [E78.5] 01/10/2010 Priority: A More... DM w/o Complication Type II [E11.9] 12/13/2009 Priority: E Gout, unspecified [M10.9] Obesity, Class III, BMI 40-49.9 (morbid obesity* Priority: I BPH W URINARY OBS/LUTS [N40.1] INVALID FOR* OPEN WOUND KNEE/LEG-COMPL [S81.009A, S81.809A, *INVALID FOR*08/21/2008 Lymphedema of both lower extremities [I89.0] INVALID FOR* Thoracic Aneurysm without Mention of Rupture [I*INVALID FOR*12/13/2009 Priority: A More... ASCVD [I25.10] INVALID FOR* More... Osteoarthritis of knee [M17.10] INVALID FOR* More... GERD [K21.9] More... More... More... More... Atelectasis/pleural effusion [J98.11] INVALID FOR*01/10/2010 Priority: C More... DM type 2, uncontrolled, with neuropathy (HCC) *INVALID FOR* More... CAD (mild per cath) [I25.10] INVALID FOR*03/22/2010 Priority: A More... Oliguria [R34] INVALID FOR*12/13/2009 Priority: C More... Acute Renal Insufficiency [N28.9] INVALID FOR*12/27/2009 Priority: C More... More... A-fib (HCC) [I48.91] INVALID FOR*03/02/2014 ARF (Acute Renal Failure) [N17.9] INVALID FOR*12/18/2009 More... Respiratory Failure, Acute [J96.00] INVALID FOR*12/18/2009 Priority: B More... Leukocytosis [D72.829] INVALID FOR*12/27/2009 Priority: D More... Hypernatremia [E87.0] INVALID FOR*12/27/2009 Priority: C More... H/o Pericardial Effusion (moderate on d/c) [I3*INVALID FOR*01/16/2010 Priority: A More... More... Anemia [D64.9] INVALID FOR*01/10/2010 Priority: B More... More... H/o Fever (upon admission) [R50.9] INVALID FOR*01/12/2010 Priority: C More... Malnutrition [E46] INVALID FOR*01/10/2010 More... Hyperlipidemia with target LDL less than 70 [E7*INVALID FOR* Pleural Effusion/atelectasis [J90] INVALID FOR*04/05/2013 Priority: B More... Gout [M10.9] INVALID FOR*03/22/2010 Priority: D More... Sepsis [A41.9] INVALID FOR*03/22/2010 Priority: C More... Hypokalemia [E87.6] INVALID FOR*03/22/2010 Priority: C More... Renal insufficiency [N28.9] INVALID FOR*03/22/2010 Priority: C More... Ascending aortic aneurysm [I71.2] INVALID FOR*04/05/2013 Dilated aortic root [I77.810] INVALID FOR*04/05/2013 Anemia [D64.9] INVALID FOR* CKD (chronic kidney disease) stage 3, GFR 30-59*INVALID FOR* COPD (chronic obstructive pulmonary disease) [J*INVALID FOR* Status post aortic valve replacement with prost*INVALID FOR* CVA (cerebral vascular accident) (HCC) [I63.9] INVALID FOR*03/02/2014 More... Stasis leg ulcer (HCC) [I83.009, L97.909] INVALID FOR* Pruritic disorder [L29.9] INVALID FOR* MIKO (obstructive sleep apnea) [G47.33] INVALID FOR* Pulmonary embolus (HCC) [I26.99] INVALID FOR* Obsessive-compulsive disorder [F42.9] INVALID FOR* Acute congestive heart failure (HCC) [I50.9] INVALID FOR* Letter Text [facility] Jack Mata MD [address] [id number] Dear Everett Iyer Your health care is very important to us. Our records indicate that you may be due for a diabetic eye exam. If you have had a diabetic eye exam within the last year, please have your records sent to us so that we may update your medical records. There is a medical records of release of information included in this letter. Please take the release to your eye doctor for future appointments to have your records forwarded to us. Important facts about diabetic eye exams Diabetic retinal exams should be done yearly for all patients with a diagnosis of diabetes. Risks such as diabetic retinopathy can be reduced with blood glucose control and early detection of potential problems. Diabetic retinopathy is damage to the small blood vessels in the retina that can lead to blindness Thank you, Jack Mata MD Letter [facility] [address] [place] [address] Office: [phone] Jack Mata MD REQUEST FOR EYE EXAM FINDINGS June 13, 2016 Dear eye client care representative, Thank you for coordinating eye care for our mutual patient, Everett Iyer (1945). Please fax this letter back to me with the most appropriate response selected below. Please allow the patient's signature to serve as permission to share your findings. Sincerely, Jack Mata MD Patient Signature Date Date of eye exam: Findings Both Eyes Right Left No Retinopathy Detected Non Proliferative Retinopathy Mild Moderate Severe Proliferative Retinopathy Macular Edema Further testing and/or treatment indicated Comments: Patient is to return: Encounter Status:Closed by MELINDA HILLS CMA on 12/21/17 EMERGENCY DEPARTMENT Observed: 12/19/2017 Status: F Source: [place] SUMMARY 7:46 AM [facility] REPOSITORY [facility] Medical Records Department [address] [place] [address] Emergency Department Summary 12/19/17 0457 MR#: [id number] Acct: [id number] Name: EVERETT IYER Rep #: [id number] : 1945 72 From: Torito Herndon PCP: Jack Verdugo MD Status: DEP ER - ER Visit Summary Date of Service: 12/19/17 Chief Complaint: Bleeding right leg History of Present Illness: The patient is a 72 M presents from [facility] for evaluation bleeding from the right lower extremity. Patient is on Plavix. States he scratches a lot to his legs, states he removed a scab causing bleeding. Nursing was unable to control therefore sent patient here. Denies lightheaded symptoms. Tetanus more than 10 years ago. Physical Examination: General: Alert and oriented 3, no acute distress HEENT: Normocephalic, atraumatic. Moist mucosa membranes Neck: supple, nontender. Cardiovascular: Regular rate and rhythm, no murmurs Respiratory: Normal breath sounds, symmetric, no distress Abdomen: Soft, nontender, nondistended Extremities: Nontender, no edema, pulses intact 4 Neuro: no focal neurological deficits. Skin: Right lower extremity, multiple scabs on lower extremity. Dressing was removed, medial lateral leg, 3 Steri-Strips, minimal bleeding noted. Test Results: [] Emergency Department Course and Treatment: Patient vital signs stable, nontoxic. Patient's tetanus was updated. Patient's wound was pressure dressed by nursing for control. Wound care discussed. Follow-up with his PCP, return if any worsening symptoms. Treatment Plan: [] Disposition: Discharge Impression: 1. Right leg abrasion 2. Tetanus update This note was generated with [employer] dictation software. It may contain incorrect words, spelling, and punctuation that were not noted in review of the chart prior to signing ED Disposition - Plan for ED Patient: Disposition: Home or Assisted Living Chief Complaint: Lower Extremity Injury Diagnosis: Abrasion, right lower leg, initial encounter Instructions: Wound Care Referrals: Jack Verdugo MD [Primary Care Provider] - 3-5 Days What to do if you have Problems For any increased pain, shortness of breath, bleeding, nausea or vomiting, chest pain, or any unexpected problems, contact your Primary Care Provider. Call [email or web address] ([phone]) or report to the closest Emergency Room. Call 911 if necessary. 12/19/17 0746 <Electronically signed by Torito Herndon> Date Torito David Signature (If Indicated): Date CC: Jack RODRIGEZ Observed: 12/15/2017 Status: COMPLETED Source: [place] 12:00 AM [facility] REPOSITORY Telephone (INTMWS) EVERETT IYER ([id number]) 1945 M Date Time Provider Department 12/15/17 [place]U INTMWS During your visit today, we recorded the following information about you: Awa Roderick 12/15/2017 10:29 AM Addendum Torres / [facility] calls stating he sent an urgent fax this am and has not heard back. Patient was admitted last night with instructions to hold Eliquis until he sees Dr Garcia 12/22/17 ?scope. Patient had received 2 units blood while hospitalized recently. Torres says unsure where bleed was. Elliquis 2.5 mg was given by mistake this am. Says no adverse reactions thus far; will monitor stool. Patient has a weekly CBC scheduled for . Any add'l orders? Chyna Bran LPN 12/15/2017 1:13 PM Signed To Jennifer to review. Jennifer Sinclair, BELL HOLE DIGGER.POWER SYSTEM ENGINEER 12/15/2017 1:44 PM Signed No new orders. Jennifer Sinclair BELL HOLE DIGGER.PRABHA Albert Cma 12/15/2017 2:02 PM Addendum Torres with [facility] is notified of all information and verbalizes understanding. Mariah Albert Cma Allergies As of Date: 12/15/2017 Noted Allergy Reaction LEVAQUIN (LEVOFLOXACIN) 05/13/2007 1 - Mental Status Change NALDECON SENIOR DX (DEXTROMETHORP*02/13/2005 5 - Intolerance NORVASC (AMLODIPINE BESYLATE) 02/13/2005 5 - Intolerance Date Reviewed: 11/05/2017 Reviewed by: Awa Vaughn - Fully Assessed Reason for Visit: Medication Problem [509] Prescriptions as of 12/15/2017 Sig: FUROSEMIDE 80 MG TABLET take 1 tablet twice a day for* POLYETHYLENE GLYCOL 3350 17 G* use 1 (ONE) PACKET daily D* ELIQUIS 5 MG TABLET take 1 tablet twice a day for* CLONIDINE 0.3 MG/24 HR WEEKLY* Apply 1 Patch as directed onc* MONTELUKAST 10 MG TABLET Take 1 tablet by mouth daily * FLUTICASONE 500 MCG-SALMETERO* Inhale 1 Puff as instructed t* INSULIN GLARGINE (U-100) 100 * Inject 35 Units subcutaneousl* SERTRALINE 100 MG TABLET Take 1 tablet by mouth twice * GLIMEPIRIDE 4 MG TABLET Take 2 tablets by mouth daily* LANSOPRAZOLE 15 MG CAPSULE,DE* Take 1 capsule by mouth once * [employer] ULTRA BLUE TEST STRIP Check 4x times a day. Dx: E11* ALLOPURINOL 300 MG TABLET TAKE 1 TABLET EVERY DAY for F* NUTRITIONAL SUPPLEMENTS ORAL * Take 237 mL by mouth twice da* APIXABAN 5 MG TABLET Take 1 tablet by mouth twice * METFORMIN 500 MG TABLET Take 1 tablet by mouth three * LORATADINE 10 MG TABLET Take 10 mg by mouth once sunny* COMPOUNDED PRESCRIPTION Take 2 tablets by mouth once * ALBUTEROL SULFATE HFA 90 MCG/* Inhale 2 Puffs as instructed * CLOPIDOGREL 75 MG TABLET Take 1 tablet by mouth once d* SPIRONOLACTONE 25 MG TABLET TAKE 1 TABLET TWICE DAILY ATORVASTATIN 80 MG TABLET Take 0.5 tablets by mouth onc* METOPROLOL TARTRATE 50 MG TAB* Take 1 tablet by mouth twice * LOSARTAN 100 MG TABLET TAKE 1 TABLET BY MOUTH EVERY * HYDROXYZINE HCL 25 MG TABLET TAKE 1 TABLET BY MOUTH THREE * LANCETS Use four times a day Dx: E1* PEN NEEDLE, DIABETIC 31 GAUGE* 1 Each once daily. Dx: 250.00* MAGNESIUM OXIDE 400 MG TABLET Take 2 tablets by mouth twice* IPRATROPIUM-ALBUTEROL 0.5 MG-* Inhale 3 mL as instructed lucille* ACETAMINOPHEN 500 MG TABLET Take 2 tablets by mouth every* TERAZOSIN 10 MG CAPSULE Take 1 capsule by mouth daily* FINASTERIDE 5 MG TABLET Take 1 tablet by mouth once d* FERROUS SULFATE 325 MG (65 MG* Take 1 tablet by mouth once d* ALCOHOL PREP PADS use as directed COLACE 100 MG CAPSULE Take one(1) tablet two(2) tasha* MULTIVITAMIN TABLET Take one(1) tablet daily. Problem List As Of Date 12/15/2017 Noted Resolved Unspecified Essential Hypertension [I10] INVALID FOR*12/12/2009 Esophageal Reflux [K21.9] 12/12/2009 Asthma [J45.909] Hypertension goal BP (blood pressure) < 150/90 * Other and Unspecified Hyperlipidemia [E78.5] 01/10/2010 Priority: A More... DM w/o Complication Type II [E11.9] 12/13/2009 Priority: E Gout, unspecified [M10.9] Obesity, Class III, BMI 40-49.9 (morbid obesity* Priority: I BPH W URINARY OBS/LUTS [N40.1] INVALID FOR* OPEN WOUND KNEE/LEG-COMPL [S81.009A, S81.809A, *INVALID FOR*08/21/2008 Lymphedema of both lower extremities [I89.0] INVALID FOR* Thoracic Aneurysm without Mention of Rupture [I*INVALID FOR*12/13/2009 Priority: A More... ASCVD [I25.10] INVALID FOR* More... Osteoarthritis of knee [M17.10] INVALID FOR* More... GERD [K21.9] More... More... More... More... Atelectasis/pleural effusion [J98.11] INVALID FOR*01/10/2010 Priority: C More... DM type 2, uncontrolled, with neuropathy (HCC) *INVALID FOR* More... CAD (mild per cath) [I25.10] INVALID FOR*03/22/2010 Priority: A More... Oliguria [R34] INVALID FOR*12/13/2009 Priority: C More... Acute Renal Insufficiency [N28.9] INVALID FOR*12/27/2009 Priority: C More... More... A-fib (HCC) [I48.91] INVALID FOR*03/02/2014 ARF (Acute Renal Failure) [N17.9] INVALID FOR*12/18/2009 More... Respiratory Failure, Acute [J96.00] INVALID FOR*12/18/2009 Priority: B More... Leukocytosis [D72.829] INVALID FOR*12/27/2009 Priority: D More... Hypernatremia [E87.0] INVALID FOR*12/27/2009 Priority: C More... H/o Pericardial Effusion (moderate on d/c) [I3*INVALID FOR*01/16/2010 Priority: A More... More... Anemia [D64.9] INVALID FOR*01/10/2010 Priority: B More... More... H/o Fever (upon admission) [R50.9] INVALID FOR*01/12/2010 Priority: C More... Malnutrition [E46] INVALID FOR*01/10/2010 More... Hyperlipidemia with target LDL less than 70 [E7*INVALID FOR* Pleural Effusion/atelectasis [J90] INVALID FOR*04/05/2013 Priority: B More... Gout [M10.9] INVALID FOR*03/22/2010 Priority: D More... Sepsis [A41.9] INVALID FOR*03/22/2010 Priority: C More... Hypokalemia [E87.6] INVALID FOR*03/22/2010 Priority: C More... Renal insufficiency [N28.9] INVALID FOR*03/22/2010 Priority: C More... Ascending aortic aneurysm [I71.2] INVALID FOR*04/05/2013 Dilated aortic root [I77.810] INVALID FOR*04/05/2013 Anemia [D64.9] INVALID FOR* CKD (chronic kidney disease) stage 3, GFR 30-59*INVALID FOR* COPD (chronic obstructive pulmonary disease) [J*INVALID FOR* Status post aortic valve replacement with prost*INVALID FOR* CVA (cerebral vascular accident) (HCC) [I63.9] INVALID FOR*03/02/2014 More... Stasis leg ulcer (HCC) [I83.009, L97.909] INVALID FOR* Pruritic disorder [L29.9] INVALID FOR* MIKO (obstructive sleep apnea) [G47.33] INVALID FOR* Pulmonary embolus (HCC) [I26.99] INVALID FOR* Obsessive-compulsive disorder [F42.9] INVALID FOR* Acute congestive heart failure (HCC) [I50.9] INVALID FOR* Encounter Status:Closed by MARIAH ALBERT CMA on 12/15/17 DISCHARGE SUMMARY Observed: 12/14/2017 Status: F Source: [place] 7:21 PM [facility] REPOSITORY [facility] Medical Records Department [address] [place] [address] Discharge Summary 12/14/17 1050 MR#: [id number] Acct: [id number] Name: EVERETT IYER Rep #: [id number] : 1945 72 From: Colleen CRAWFORD PCP: Kartik LOGAN,Jack Status: DIS IN Y Location: [place] [id number] ADDENDUM by Varun Aguilar DO on 12/14/17 at 192 Code Visit Inpatient E AND M: 92266 Disch Hosp 12/14/171920 <Electronically signed by Varun Aguilar DO> Date Varun Aguilar DO cc: YVETTE Hope; Varun Aguilar DO; Jack Verdugo MD * Signed Discharge Date and Diagnosis Date of Admission: 12/09/17 Date of Discharge: 12/14/17 - Primary Discharge Diagnosis Active and Suspected Problems (Last Reviewed 12/09/17 @ 21:05 by Garrett Whitley MD) 1. Chronic hypoxic respiratory failure 2. COPD exacerbation 3. Acute on chronic diastolic CHF 4. Acute anemia on anemia of chronic disease/iron deficiency anemia 5. Obstructive sleep apnea 6. PVD with chronic lower extremity wounds 7. Type 2 diabetes mellitus 8. Hypertension 9. Hyperlipidemia 10. Chronic kidney disease stage II 11. History of aortic valve replacement 12. History of AAA status post repair/thoracic aortic aneurysm 13. GERD 14. Super obesity - Secondary Discharge Diagnosis Chronic Problems (Last Reviewed 12/09/17 @ 21:05 by Garrett Whitley MD) History of repair of thoracic aortic aneurysm (Chronic 12/11/09) Thoracic aortic aneurysm without rupture (Chronic) Venous stasis dermatitis (Chronic) Osteoarthritis (Chronic) Coronary artery disease (Chronic) Lymphedema (Chronic) Hyperlipidemia (Chronic) Super obesity (Chronic) Gout (Chronic) Depression (Chronic) Ulcer of right lower extremity with fat layer exposed (Chronic) Ulcer of left lower extremity with fat layer exposed (Chronic) Bilateral leg edema (Chronic) Tinea unguium (Chronic) Diabetes mellitus with neuropathy (Chronic) Delayed wound healing (Chronic) CKD (chronic kidney disease), stage II (Chronic) Wheezing (Chronic) MIKO (obstructive sleep apnea) (Chronic) BiPAP 18/12 cm of water HTN (hypertension) (Chronic) BPH (benign prostatic hypertrophy) (Chronic) Tinea unguium (Chronic) Diabetes mellitus with neuropathy (Chronic) Lymphedema of leg (Chronic) Multiple excoriations (Chronic) Asthma (Chronic) Arthritis (Chronic) Immobility (Chronic) 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 Patient was educated on the signs and symptoms of bleeding as such as hemoptysis, hematemesis, hematochezia or melena stools. Patient has been advised to watch for these symptoms contact the office if they present. Follow-up with Dr. Clay in approximately 8 weeks as previously scheduled. Adynamic ileus (Chronic) Ventral hernia (Chronic) Hypoglycemia (Chronic) Peripheral neuropathy (Chronic) Chronic anemia (Chronic) Benign prostatic hypertrophy without urinary obstruction (Chronic) CKD (chronic kidney disease), stage II (Chronic) CAD (coronary artery disease) (Chronic) Type II diabetes mellitus (Chronic) GERD (gastroesophageal reflux disease) (Chronic) Hypercholesteremia (Chronic) Morbid obesity (Chronic) Pulmonary hypertension (Chronic) H/O aortic valve replacement (Chronic 12/11/09) # 29 Freestyle valve Venous insufficiency (Chronic) Hospital Course and Treatment Imaging Results: Diagnostic Data Chest X-Ray 12/11/17 06:58 IMPRESSION: Improved aeration and improved vascular congestion as compared to prior study. Residual changes persist. Electronically Signed: Gab Ruth MD at 11:07 EDT Tel [phone], Service support , Consultations 12/09/17 20:42 Consult: Onc/Wound/family practitioner Routine Comment: Reason for Consult:: wound on bilateral lower ext Operations: None Procedures: None Summary of Care Provided: Patient is a 72-year-old male admitted 12/09/2017 due to shortness of breath. He has a past medical history of AOCD, BPH, HTN, Diabetes mellitus type II w/ neuropathy, Tobacco use, CHF, CKD stage II, COPD, History of AVR, History of AAA s/p repair, GERD, Morbid Obesity PVD, Hx Ileus, super obesity. 1. Chronic hypoxic respiratory failure, acute respiratory failure ruled out-secondary to COPD exacerbation and acute on chronic diastolic CHF. Continue supplement oxygen to maintain O2 at or above 90%. Patient chronically wears 3 L nasal cannula at baseline. Patient follows with Dr. Clay. Follow up with Dr. Clay in 1-2 weeks. 2. COPD exacerbation-breathing /wheezing improved. Patient states he chronically has wheezing and shortness of breath at baseline. Albuterol and DuoNeb aerosols. PEP/IS. Completed 3 day course of IV azithromycin. Mucinex 1200 mg p.o. twice daily. Respiratory panel negative. Continue oral prednisone taper at discharge. 3. Acute on chronic diastolic CHF-echocardiogram July 2017 with an EF of 60%. Chest x-ray on admission with mild CHF. BNP 205. Patient's weight is down approximately 25 pounds since admission. IV Lasix discontinued. Repeat chest x-ray demonstrates improved vascular congestion as compared to prior examination. Continue home Lasix regimen. 4. Acute anemia on anemia of chronic disease/iron deficiency anemia-status post 3 unit packed red blood cells transfusion. Continue iron supplementation/ascorbic acid. Stool negative for occult blood. Patient will follow up with Dr. Garcia as outpatient this week. Continue to hold Eliquis until further evaluated by Dr. Garcia as outpatient. 5. Obstructive sleep apnea-continue CPAP nightly and PRN. 6. Type 2 diabetes mellitus-continue home oral and insulin regimen. 7. Hypertension-stable, continue home regimen. 8. Hyperlipidemia-continue statin. 9. Chronic kidney disease stage II-stable, continue to monitor. 10. BPH-continue home regimen. 11. History of aortic valve replacement 12. History of AAA status post repair/thoracic aortic aneurysm- continue outpatient monitoring. 13. GERD-continue PPI. 14. Super obesity-encourage diet and lifestyle modifications. 15. PVD with chronic lower extremity wounds-Mike wrap bilateral lower extremities. General: Alert, Oriented x3, Cooperative HEENT: Atraumatic, PERRLA, EOMI, Normocephalic Neck: Supple, No JVD, Negative Carotid Bruits Lungs: Diminished, Wheezes Cardiovascular: Regular rate, Regular Rhythm, Normal S1, Normal S2, No murmurs Abdomen: Bowel Sounds Present, Soft, Non Tender, Obese, Hernia Extremities: No clubbing, No cyanosis, Edema - Bilateral lower extremities Skin: No rashes, No breakdown Musculoskeletal: No Tenderness to Palpation of Joints or Extremities Neurological: Cranial nerves II-XII grossly intact, Neuro grossly intact Psych/Mental Status: Normal Affect, Appropriate Patient seen exam prior to discharge. Physical assessment as noted above. Patient stable for discharge to SNF. This patient was seen by YVETTE Chun under the supervision of Dr. Aguilar. Home Medications: Medications to take at Discharge Allopurinol [Zyloprim] 300 mg PO DAILY 03/30/17 Atorvastatin Calcium [Lipitor] 40 mg PO QHS 03/30/17 Clonidine Patch [Catapres-Tts3] 0.3 mg TOPICAL FR 03/30/17 Clopidogrel Bisulfate [Plavix] 75 mg PO DAILY 03/30/17 Finasteride [Proscar] 5 mg PO DAILY 03/30/17 Glimepiride [Amaryl] 8 mg PO BREAKFAST 03/30/17 Hydroxyzine HCl 25 mg PO TID PRN 03/30/17 Insulin Glargine [Lantus SoloStar Pen] 35 units PO BID 03/30/17 Lansoprazole 15 mg PO DAILY 03/30/17 Losartan Potassium 100 mg PO DAILY 03/30/17 Magnesium Oxide [Mag-Ox 400] 800 mg PO BID 03/30/17 Metformin HCl [Glucophage] 500 mg PO TID 03/30/17 Metoprolol Tartrate [Lopressor (beta maryam)] 50 mg PO BID 03/30/17 Multivitamins,Therapeutic [Multivitamin] 1 tab PO DAILY@0800 03/30/17 Sertraline HCl [Zoloft] 50 mg PO QHS 03/30/17 Spironolactone 25 mg PO BID 03/30/17 Terazosin HCl [Hytrin] 10 mg PO QHS 03/30/17 Fluticasone/Salmeterol [Advair 500-50 Diskus] 2 puff INHALATION Q12H 08/20/17 Sertraline HCl [Zoloft] 100 mg PO DAILY 08/20/17 Acetaminophen [Tylenol] 1,000 mg PO Q8H PRN PRN tab 09/08/17 Docusate Sodium [Colace] 100 mg PO DAILY PRN PRN 12/09/17 Furosemide [Lasix] 20 mg PO LUNCH 12/09/17 Furosemide [Lasix] 40 mg PO DAILY 12/09/17 Loratadine 10 mg PO DAILY 12/09/17 Nystatin Powder [Mycostatin Powder] 1 applic TOPICAL BID PRN PRN 12/09/17 Olanzapine [Zyprexa] 2.5 mg PO DAILY 12/09/17 Tiotropium [place] [Spiriva] 18 mcg IH DAILY 12/09/17 Albuterol Aerosols [Ventolin Aerosols] 2.5 mg INHALATION Q2H PRN PRN vial.neb. 12/14/17 Ascorbic Acid [Vitamin C] 500 mg PO BIDCM tablet 12/14/17 Ferrous Sulfate 325 mg PO BIDCM tablet 12/14/17 Guaifenesin [Mucinex] 1,200 mg PO BID tablet 12/14/17 Prednisone See Taper PO DAILY #30 tablet 12/14/17 Following Prescrptions Were Given to Patient: Prednisone See Taper PO DAILY #30 tablet Primary Care Physician: Jack Verdugo MD [Primary Care Provider] - Please follow up with your Primary Care Physician in: 1 Week Please Follow Up With: Brice Garcia MD When: This week, please call for appt. Please Follow Up With: Khari Clay DO - May see VOCATIONAL PSYCHOLOGIST When: 1-2 Weeks Disposition: [facility] facility Minutes spent on discharge:: 35 Patient Condition:: Stable Medical Necessity - Tobacco Use Smoking Status: Former smoker Tobacco Use: Cigarettes Meaningful Use Info Meaningful Use Diagnoses (Choose all that apply): CHF - CHF MIKE/ARB ordered at discharge?: Yes Documented LVEF (%): 60 12/14/17 1059 <Electronically signed by Colelen PADILLAC> Date Colleen PADILLAC 12/14/17 1920<Electronically signed by Varun Aguilar DO> Cosigner Signature (if applicable): Date Varun Aguilar DO CC: YVETTE Hope; Varun Aguilar DO; Jack Verdugo MD Signed TRANSFER TO EXTENDED Observed: 12/14/2017 Status: F Source: [facility] 1:04 PM [facility] REPOSITORY [facility] Medical Records Department [address] [place] [address] Transfer to Extended Care MR#: [id number] Acct: [id number] Name: EVERETT IYER Rep #: [id number] : 1945 72 From: Colleen CRAWFORD PCP: Jack Verdugo MD Status: ADM IN EVERETT IYER (Patient) (Health Ins. Claim No.) (Day of Discharge to Facility) Certification of patient admission REQUIRED AT TIME OF ADMISSION. I CERTIFY THAT POST-HOSPITAL ECF SERVICES ARE REQUIRED TO BE GIVEN ON AN IN-PATIENT BASIS BECAUSE OF THE ABOVE NAMED PATIENT'S NEED FOR ALF CARE ON A CONTINUING BASIS FOR THE CONDITION(S) FOR WHICH HE/SHE WAS RECEIVING IN-PATIENT HOSPITAL SERVICES PRIOR TO HIS/HER TRANSFER TO THE F. 12/14/17 1304 <Electronically signed by Varun Aguilar DO> Date: - Diet 12/09/17 20:43 Diet: Cardiac: Carb-Controlled Is pt able to select menu?: Yes - Routine Orders/Code Status Suppository Type: Dulcolax 10mg Suppository Frequency: Daily PRN O2 Liters per Minute: 2-4 O2 Frequency: Continuous Keep PO Greater than or Equal to (%): 90 Routine Lab Work: - - CBC, BMP in 3 days and then Q week. Code Status: Full Code - Wound(s) b/l legs Wound Type: small scattered scabbed areas from stasis dermatitis Dressing Change: Adaptic - Suggestions for Active Care Change Position every (hours): 2 Times a day to sit in chair: 3 - Therapies Physical Therapy: Eval and Treat Occupational Therapy: Eval and Treat - Problem/Diagnosis (1) Acute on chronic diastolic heart failure Status: Acute Current Visit: Yes (2) Acute on chronic respiratory failure with hypoxia and hypercapnia Status: Acute Current Visit: Yes (3) Bilateral lower leg cellulitis Status: Resolved Current Visit: No (4) COPD (chronic obstructive pulmonary disease) Status: Acute Comment: FEV1 58% Current Visit: No (5) Anemia Status: Acute Current Visit: Yes - Allergies/Procedures Done in Hospital Allergies/Adverse Reactions: Allergies naphazoline HCl [From Naphcon] Allergy (Severe, Verified 12/09/17 17:49) affected his breathing AFFECTED HIS BREATHING amlodipine besylate [From Norvasc] Allergy (Verified 12/09/17 17:49) Other dextromethorphan Allergy (Verified 12/09/17 17:49) Other levofloxacin [From Levaquin] Adverse Reaction (Mild, Verified 12/09/17 17:49) made me hyperactive made me hyperactive Procedures: None - Type of Care/Length of Stay Estimated LOS: Convalescent Care Less Than 30 days Type of Care Needed: Skilled Rehab Potential: Fair Prognosis: Fair - Additional Orders/Day of Discharge H AND P will serve as current which was dated: 12/09/17 Day of Discharge: 12/14/17 - Dietary and Speech Recommendations Dietitian Recommendations/Changes: Rec 2000 calorie controlled, cardiac, low sodium diet w/ fluid restriction as indicated. Will d/c Glucerna ONS as PO intake and wt appear stable. - Follow Up Care Primary Care Physician: Jack Verdugo MD [Primary Care Provider] - Please follow up with your Primary Care Physician in: 1 Week Please Follow Up With: Brice Garcia MD When: This week, please call for appt. Please Follow Up With: Khari Clay DO - May see VOCATIONAL PSYCHOLOGIST When: 1-2 Weeks 12/14/17 1050 <Electronically signed by Colleen Hope VOCATIONAL PSYCHOLOGIST-C> Date Colleen Hope VOCATIONAL PSYCHOLOGIST-C 12/14/17 1304<Electronically signed by Varun Aguilar DO> Cosigner Signature: Date Varun Aguilar DO CC: Jack Verdugo MD BEDSIDE GLUCOSE Collected: 12/14/2017 Status: F Source: [place] 11:39 AM [facility] REPOSITORY TYPE CODE TESTS RESULT OUT OF REFERENCE UNITS RANGE LAB L501.080 70-110 mg/dL High BEDSIDE GLU 158 Result Comment: MANAGEMENT OF PATIENT CARE PER NURSING PROTOCOL Performed By: #### L501.080 #### [facility] Point of Care [address] [place], [place] [id number] BEDSIDE GLUCOSE Collected: 12/14/2017 Status: F Source: [place] 6:43 AM [facility] REPOSITORY TYPE CODE TESTS RESULT OUT OF REFERENCE UNITS RANGE LAB L501.080 70-110 mg/dL High BEDSIDE GLU 138 Result Comment: MANAGEMENT OF PATIENT CARE PER NURSING PROTOCOL Performed By: #### L501.080 #### [facility] Point of Care [address] [place] [address] CBC-COMPLETE BLOOD CNT Collected: 12/14/2017 Status: F Source: [place] NO DIFF 5:45 AM [facility] REPOSITORY TYPE CODE TESTS RESULT OUT OF RANGE REFERENCE UNITS LAB L100.1000 4.4-11.0 K/mm3 Normal WBC 9.8 LAB L100.1200 4.6-6.2 M/mm3 Low RBC 3.31 LAB L100.1300 13.0-16.5 g/dl Low HGB 8.8 LAB L100.1400 40-54 % Low HCT 29.6 LAB L100.1500 80-94 fL Normal MCV 89.4 LAB L100.1600 27.0-32.0 pg Low MCH 26.6 LAB L100.1700 32-36 g/gl Low MCHC 29.7 LAB L100.1810 11.6-14.6 % High RDW CV 16.1 LAB L100.1820 35.1-43.9 fl High RDW SD 50.2 LAB L100.1900 150-450 K/mm3 Normal PLT 341 LAB L100.2000 6.2-12.0 fl Normal MPV 8.8 Performed By: #### L100.0500 #### [facility] [address] [facility] [place], [address] BASIC METABOLIC Collected: 12/14/2017 Status: F Source: [facility] (BMP) 5:45 AM [facility] REPOSITORY TYPE CODE TESTS RESULT OUT OF RANGE REFERENCE UNITS LAB L501.0100 74-106 mg/dL High GLU 128 Result Comment: Fasting Glucose result greater than or equal to 126 mg/dL suggests DIABETES MELLITUS per A.D.A. criteria. Please note revised GLUCOSE reference range effective 2017. LAB L501.1000 7-18 mg/dL High BUN 56 LAB L501.1100 0.70-1.30 mg/dL High CREAT,SERUM 1.40 Result Comment: The validity of the calculated GFR AND GFRAA in patients over 70 years has not been determined. Clinical correlation is essential. LAB L501.1110 >60 mL/min Low EST GFR 53 Result Comment: Non- GFR Calc LAB L501.1115 >60 mL/min Normal EST GFR - AA 64 Result Comment: GFR Calc LAB L501.1255 ml/min Normal Estimated CRCL 44.79 LAB L501.1300 10-20 RATIO High BUN/CRE 40.0 LAB L501.2200 8.5-10 mg/dL Normal .1 CA 8.9 LAB L501.5300 136-14 mmol/L Normal 5 NA 142 LAB L501.5600 3.5-5. mmol/L Normal 1 K 4.0 LAB L501.5900 98-107 mmol/L Low CL 95 LAB L501.6100 21.0-3 mmol/L High 2.0 CO2 40.0 LAB L501.6200 5-15 Normal GAP 7 Performed By: #### L500.2500 #### [facility] [address] [place], [address] BASIC METABOLIC Collected: 12/14/2017 Status: F Source: [facility] (B[facility]) 2:20 AM [facility] REPOSITORY TYPE CODE TESTS RESULT OUT OF RANGE REFERENCE UNITS LAB L501.0100 74-106 mg/dL High GLU 174 Result Comment: Fasting Glucose result greater than or equal to 126 mg/dL suggests DIABETES MELLITUS per A.D.A. criteria. Please note revised GLUCOSE reference range effective 2017. LAB L501.1000 7-18 mg/dL High BUN 54 LAB L501.1100 0.70-1.30 mg/dL High CREAT,SERUM 1.57 Result Comment: The validity of the calculated GFR AND GFRAA in patients over 70 years has not been determined. Clinical correlation is essential. LAB L501.1110 >60 mL/min Low EST GFR 46 Result Comment: Non- GFR Calc LAB L501.1115 >60 mL/min Low EST GFR - AA 56 Result Comment: GFR Calc LAB L501.1255 ml/min Normal Estimated CRCL 39.94 LAB L501.1300 10-20 RATIO High BUN/CRE 34.4 LAB L501.2200 8.5-10 mg/dL Normal .1 CA 8.7 LAB L501.5300 136-14 mmol/L Normal 5 NA 138 LAB L501.5600 3.5-5. mmol/L Normal 1 K 4.2 LAB L501.5900 98-107 mmol/L Low CL 96 LAB L501.6100 21.0-3 mmol/L High 2.0 CO2 39.0 LAB L501.6200 5-15 Low GAP 3 Performed By: #### L500.2500 #### [facility] [address] [place], [place], [id number] BEDSIDE GLUCOSE Collected: 12/13/2017 Status: F Source: [place] 9:23 PM [facility] REPOSITORY TYPE CODE TESTS RESULT OUT OF REFERENCE UNITS RANGE LAB L501.080 70-110 mg/dL High BEDSIDE GLU 320 Result Comment: Insulin Given MANAGEMENT OF PATIENT CARE PER NURSING PROTOCOL Performed By: #### L501.080 #### [facility] Point of Care [address] [place], [place] [address] BEDSIDE GLUCOSE Collected: 12/13/2017 Status: F Source: [place] 5:01 PM [facility] REPOSITORY TYPE CODE TESTS RESULT OUT OF REFERENCE UNITS RANGE LAB L501.080 70-110 mg/dL High BEDSIDE GLU 209 Result Comment: MANAGEMENT OF PATIENT CARE PER NURSING PROTOCOL Performed By: #### L501.080 #### [facility] Point of Care [address] [place] [address] MAGNESIUM Collected: 12/13/2017 Status: F Source: [place] 4:10 PM [facility] REPOSITORY TYPE CODE TESTS RESULT OUT OF RANGE REFERENCE UNITS LAB L501.5200 1.6-2.6 mg/dL Normal MG 2.5 Performed By: #### L501.5200 #### [facility] [address] [place], [address] BEDSIDE GLUCOSE Collected: 12/13/2017 Status: F Source: [place] 12:03 PM [facility] REPOSITORY TYPE CODE TESTS RESULT OUT OF REFERENCE UNITS RANGE LAB L501.080 70-110 mg/dL High BEDSIDE GLU 173 Result Comment: MANAGEMENT OF PATIENT CARE PER NURSING PROTOCOL Performed By: #### L501.080 #### [facility] Point of Care [address] [place] [address] BEDSIDE GLUCOSE Collected: 12/13/2017 Status: F Source: [place] 6:46 AM [facility] REPOSITORY TYPE CODE TESTS RESULT OUT OF RANGE REFERENCE UNITS LAB L501.080 70-110 mg/dL Normal BEDSIDE GLU 85 Result Comment: MANAGEMENT OF PATIENT CARE PER NURSING PROTOCOL Performed By: #### L501.080 #### [facility] Point of Care [address] [place] [address] CBC-COMPLETE BLOOD CNT Collected: 12/13/2017 Status: F Source: [place] NO DIFF 4:55 AM [facility] REPOSITORY TYPE CODE TESTS RESULT OUT OF RANGE REFERENCE UNITS LAB L100.1000 4.4-11.0 K/mm3 High WBC 12.1 LAB L100.1200 4.6-6.2 M/mm3 Low RBC 3.31 LAB L100.1300 13.0-16.5 g/dl Low HGB 8.8 LAB L100.1400 40-54 % Low HCT 29.7 LAB L100.1500 80-94 fL Normal MCV 89.7 LAB L100.1600 27.0-32.0 pg Low MCH 26.6 LAB L100.1700 32-36 g/gl Low MCHC 29.6 LAB L100.1810 11.6-14.6 % High RDW CV 15.5 LAB L100.1820 35.1-43.9 fl High RDW SD 49.6 LAB L100.1900 150-450 K/mm3 Normal PLT 352 LAB L100.2000 6.2-12.0 fl Normal MPV 8.8 Performed By: #### L100.0500 #### [facility] [address] [facility] [place], [place], [address] BASIC METABOLIC Collected: 12/13/2017 Status: F Source: [facility] (BMP) 4:55 AM [facility] REPOSITORY TYPE CODE TESTS RESULT OUT OF RANGE REFERENCE UNITS LAB L501.0100 74-106 mg/dL Normal GLU 80 Result Comment: Please note revised GLUCOSE reference range effective 2017. LAB L501.1000 7-18 mg/dL High BUN 46 LAB L501.1100 0.70-1.30 mg/dL High CREAT,SERUM 1.43 Result Comment: The validity of the calculated GFR AND GFRAA in patients over 70 years has not been determined. Clinical correlation is essential. LAB L501.1110 >60 mL/min Low EST GFR 51 Result Comment: Non- GFR Calc LAB L501.1115 >60 mL/min Normal EST GFR - AA 62 Result Comment: GFR Calc LAB L501.1255 ml/min Normal Estimated CRCL 43.85 LAB L501.1300 10-20 RATIO High BUN/CRE 32.2 LAB L501.2200 8.5-10 mg/dL Normal .1 CA 8.9 LAB L501.5300 136-14 mmol/L Normal 5 NA 138 LAB L501.5600 3.5-5. mmol/L Normal 1 K 3.6 LAB L501.5900 98-107 mmol/L Low CL 94 LAB L501.6100 21.0-3 mmol/L High 2.0 CO2 39.0 LAB L501.6200 5-15 Normal GAP 5 Performed By: #### L500.2500 #### [facility] [address] [facility] [place], [place], [address] BEDSIDE GLUCOSE Collected: 12/12/2017 Status: F Source: [place] 9:46 PM [facility] REPOSITORY TYPE CODE TESTS RESULT OUT OF REFERENCE UNITS RANGE LAB L501.080 70-110 mg/dL High BEDSIDE GLU 152 Result Comment: MANAGEMENT OF PATIENT CARE PER NURSING PROTOCOL Performed By: #### L501.080 #### [facility] Point of Care [address] [place] [address] BEDSIDE GLUCOSE Collected: 12/12/2017 Status: F Source: [place] 5:48 PM [facility] REPOSITORY TYPE CODE TESTS RESULT OUT OF REFERENCE UNITS RANGE LAB L501.080 70-110 mg/dL High BEDSIDE GLU 130 Result Comment: MANAGEMENT OF PATIENT CARE PER NURSING PROTOCOL Performed By: #### L501.080 #### [facility] Point of Care [address] [place] [address] BEDSIDE GLUCOSE Collected: 12/12/2017 Status: F Source: [place] 11:46 AM [facility] REPOSITORY TYPE CODE TESTS RESULT OUT OF REFERENCE UNITS RANGE LAB L501.080 70-110 mg/dL High BEDSIDE GLU 222 Result Comment: Dr Orders Followed MANAGEMENT OF PATIENT CARE PER NURSING PROTOCOL Performed By: #### L501.080 #### [facility] Point of Care [address] [place] [address] BEDSIDE GLUCOSE Collected: 12/12/2017 Status: F Source: [place] 6:51 AM [facility] REPOSITORY TYPE CODE TESTS RESULT OUT OF REFERENCE UNITS RANGE LAB L501.080 70-110 mg/dL High BEDSIDE GLU 171 Result Comment: MANAGEMENT OF PATIENT CARE PER NURSING PROTOCOL Performed By: #### L501.080 #### [facility] Point of Care [address] [place] [address] CBC-COMPLETE BLOOD CNT Collected: 12/12/2017 Status: C Source: [place] NO DIFF 5:32 AM [facility] REPOSITORY Order Comment: PERIPHERAL SMEAR ADDED PER ERIC SALVADOR Specimen Source? BLOOD TYPE CODE TESTS RESULT OUT OF RANGE REFERENCE UNITS LAB L100.1000 4.4-11.0 K/mm3 Normal WBC 9.7 LAB L100.1200 4.6-6.2 M/mm3 Low RBC 3.16 LAB L100.1300 13.0-16.5 g/dl Low HGB 8.4 LAB L100.1400 40-54 % Low HCT 27.6 LAB L100.1500 80-94 fL Normal MCV 87.3 LAB L100.1600 27.0-32.0 pg Low MCH 26.6 LAB L100.1700 32-36 g/gl Low MCHC 30.4 LAB L100.1810 11.6-14.6 % High RDW 15.1 CV LAB L100.1820 35.1-43.9 fl High RDW 46.8 SD LAB L100.1900 150-450 K/mm3 Normal PLT 325 LAB L100.2000 6.2-12.0 fl Normal MPV 9.1 LAB L100.9900 Normal PATH Reviewed REV Result Comment: Normocytic anemia. Clinical correlation necessary. Melvin Lyons M.D. 12/14/17 AMENDED REPORT 12/14/17 1407 PATH REV previously reported as: September ben Performed By: #### L100.0500, L100.3050 #### [facility] [address] [facility] [place], [place], [id number] CELL DIFFERENTAL Collected: 12/12/2017 Status: F Source: [place] 5:32 AM [facility] REPOSITORY Order Comment: PERIPHERAL SMEAR ADDED PER ERIC SALVADOR Specimen Source? BLOOD TYPE CODE TESTS RESULT OUT OF RANGE REFERENCE UNITS LAB L100.3200 47-70 % High SEGS 89 LAB L100.3800 19-41 % Low LYMPH 4 LAB L100.3900 0-10 % Normal MONOCYTE 7 LAB L100.4400 0-5 % Normal NRBC,MANUAL CT 1 LAB L100.3100 MANUAL DIFF Normal CELLS COUNTED 100 Performed By: #### L100.0500, L100.3050 #### [facility] [address] [facility] [place], [place], [address] BASIC METABOLIC Collected: 12/12/2017 Status: F Source: [place] [facility] (BMP) 5:32 AM [facility] REPOSITORY TYPE CODE TESTS RESULT OUT OF RANGE REFERENCE UNITS LAB L501.0100 74-106 mg/dL High GLU 186 Result Comment: Fasting Glucose result greater than or equal to 126 mg/dL suggests DIABETES MELLITUS per A.D.A. criteria. Please note revised GLUCOSE reference range effective 2017. LAB L501.1000 7-18 mg/dL High BUN 45 LAB L501.1100 0.70-1.30 mg/dL Normal CREAT,SERUM 1.22 Result Comment: The validity of the calculated GFR AND GFRAA in patients over 70 years has not been determined. Clinical correlation is essential. LAB L501.1110 >60 mL/min Normal EST GFR 62 Result Comment: Non- GFR Calc LAB L501.1115 >60 mL/min Normal EST GFR - AA 75 Result Comment: GFR Calc LAB L501.1255 ml/min Normal Estimated CRCL 51.39 LAB L501.1300 10-20 RATIO High BUN/CRE 36.9 LAB L501.2200 8.5-10 mg/dL Normal .1 CA 9.3 LAB L501.5300 136-14 mmol/L Normal 5 NA 139 LAB L501.5600 3.5-5. mmol/L Normal 1 K 4.8 LAB L501.5900 98-107 mmol/L Low CL 95 LAB L501.6100 21.0-3 mmol/L High 2.0 CO2 37.0 LAB L501.6200 5-15 Normal GAP 7 Performed By: #### L500.2500 #### [facility] [address] [facility] [place], [place], [address] BEDSIDE GLUCOSE Collected: 12/11/2017 Status: F Source: [place] 9:51 PM [facility] REPOSITORY TYPE CODE TESTS RESULT OUT OF REFERENCE UNITS RANGE LAB L501.080 70-110 mg/dL High BEDSIDE GLU 239 Result Comment: MANAGEMENT OF PATIENT CARE PER NURSING PROTOCOL Performed By: #### L501.080 #### [facility] Point of Care [address] [facility]. [place], [place] [address] BEDSIDE GLUCOSE Collected: 12/11/2017 Status: F Source: [place] 4:26 PM [facility] REPOSITORY TYPE CODE TESTS RESULT OUT OF REFERENCE UNITS RANGE LAB L501.080 70-110 mg/dL High BEDSIDE GLU 233 Result Comment: MANAGEMENT OF PATIENT CARE PER NURSING PROTOCOL Performed By: #### L501.080 #### [facility] Point of Care [address] [place] [address] Observed: 12/11/2017 Status: F Source: [place] STOOL OCCULT BLOOD 4:00 PM [facility] IFOB REPOSITORY [facility] iFOB Occult Blood Negative Performed By: #### M100.7900 #### [facility] [address] [place], [address] 12 LEAD ELECTROCARDIOGRAM Observed: 12/11/2017 Status: F Source: [place] 1:08 PM [facility] REPOSITORY [facility] Cardiovascular Services [address] [place] [address] 12 Lead EKG 12/09/17 1816 MR#: [id number] Acct: [id number] Name: EVERETT IYER Rep #: [id number] : 1945 72 From: Danny Raymundo MD Attending Dr: Rosa Isela Wilcox Status: ADM IN Ordering Dr: Shreya Morgan MD Date: 12/09/17 Location: [facility] Sex: M C Admitted: 12/09/17 Test Reason : SOB Blood Pressure : / mmHG Vent. Rate : 076 BPM Atrial Rate : 076 BPM P-R Int : 146 ms QRS Dur : 108 ms QT Int : 446 ms P-R-T Axes : -26 -03 015 degrees QTc Int : 501 ms Normal sinus rhythm Prolonged QT Abnormal ECG Confirmed by DANNY RAYMUNDO MD ([id number]), editorial assistant DANIELA GUTIÉRREZ ([id number]) on 12/11/2017 1:07:34 PM Referred By: STERLING Confirmed By:DANNY RAYMUNDO MD 12/11/17 1307 Date Danny Raymundo MD CC: Shreya Morgan MD; Rosa Isela Wilcox; Jack Verdugo MD Signed BEDSIDE GLUCOSE Collected: 12/11/2017 Status: F Source: MARK 12:09 PM [facility] REPOSITORY TYPE CODE TESTS RESULT OUT OF REFERENCE UNITS RANGE LAB L501.080 70-110 mg/dL High BEDSIDE GLU 348 Result Comment: MANAGEMENT OF PATIENT CARE PER NURSING PROTOCOL Performed By: #### L501.080 #### [facility] Point of Care [address] [place] [address] Observed: 12/11/2017 Status: F Source: [place] RESPIRATORY PANEL 7:30 AM [facility] MOLECULAR REPOSITORY RP PANEL ADENOVIRUS Not Detected HUMAN METAPHNEUMO Not Detected INFLUENZA A Not Detected INFLUENZA A (SUBTYPE H1) Not Detected INFLUENZA A (SUBTYPE H3) Not Detected INFLUENZA B Not Detected PARAINFLUENZA 1 Not Detected PARAINFLUENZA 2 Not Detected PARAINFLUENZA 3 Not Detected PARAINFLUENZA 4 Not Detected RHINOVIRUS Not Detected RSV A Not Detected RSV B Not Detected NAAT METHOD Testing was performed using nucleic acid amplification Performed By: #### M100.638 #### [facility] [address] [facility] [place], [address] BEDSIDE GLUCOSE Collected: 12/11/2017 Status: F Source: [place] 7:02 AM [facility] REPOSITORY TYPE CODE TESTS RESULT OUT OF REFERENCE UNITS RANGE LAB L501.080 70-110 mg/dL High BEDSIDE GLU 186 Result Comment: MANAGEMENT OF PATIENT CARE PER NURSING PROTOCOL Performed By: #### L501.080 #### [facility] Point of Care [address] [place], [place] [address] CHEST PA AND LATERAL Observed: 12/11/2017 Status: F Source: [place] 6:58 AM [facility] REPOSITORY [facility] Imaging Services [address] [place] [address] Chest PA and Lateral MR#: [id number] Acct: [id number] Name: EVERETT IYER Rep #: [id number] : 1945 M 72 From: Gab Ruth MD PCP: Jack Verdugo MD Status: ADM IN Study: Chest PA and Lateral Date of Exam: 12/11/17 Exam# [id number] Ordering Dr: Mary Wilcox DO STUDY: X-RAY CHEST REASON FOR EXAM: Male, 72 years old. Acute process in patient with shortness of breath. TECHNIQUE: PA and lateral views of the chest. COMPARISON: Comparison is made with prior study dated December 09, 2017. FINDINGS: Surgical clips are seen in the right axillary region. The previously seen vascular congestion has improved. Residual pleural-parenchymal changes persist at the right lung base although there has been improvement. Residual increased markings at the left lung base with blunting of the left costophrenic angle. Sternal cerclage wires and vascular clips are present from a prior sternotomy and coronary artery bypass graft procedure (CABG). Normal mediastinum and radha. Normal visualized pulmonary arteries. There is atherosclerotic calcification of the aortic arch with tortuosity. There are degenerative changes of the visualized thoracic spine. Normal visualized ribs, clavicles, and shoulders. There is no demonstrated abnormality of the visualized soft tissue structures of the upper abdomen. RAD/Chest PA and Lateral IMPRESSION: Improved aeration and improved vascular congestion as compared to prior study. Residual changes persist. 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: Signed CBC-COMPLETE BLOOD CNT Collected: 12/11/2017 Status: F Source: [place] NO DIFF 5:45 AM [facility] REPOSITORY TYPE CODE TESTS RESULT OUT OF RANGE REFERENCE UNITS LAB L100.1000 4.4-11.0 K/mm3 Normal WBC 7.2 LAB L100.1200 4.6-6.2 M/mm3 Low RBC 2.96 LAB L100.1300 13.0-16.5 g/dl Low HGB 7.7 LAB L100.1400 40-54 % Low HCT 25.5 LAB L100.1500 80-94 fL Normal MCV 86.1 LAB L100.1600 27.0-32.0 pg Low MCH 26.0 LAB L100.1700 32-36 g/gl Low MCHC 30.2 LAB L100.1810 11.6-14.6 % High RDW CV 15.4 LAB L100.1820 35.1-43.9 fl High RDW SD 48.8 LAB L100.1900 150-450 K/mm3 Normal PLT 250 LAB L100.2000 6.2-12.0 fl Normal MPV 8.9 Performed By: #### L100.0500 #### [facility] [address] [place], [place], [address] BASIC METABOLIC Collected: 12/11/2017 Status: F Source: [place] PROFILE (BMP) 5:45 AM [facility] REPOSITORY TYPE CODE TESTS RESULT OUT OF RANGE REFERENCE UNITS LAB L501.0100 74-106 mg/dL High GLU 181 Result Comment: Fasting Glucose result greater than or equal to 126 mg/dL suggests DIABETES MELLITUS per A.D.A. criteria. Please note revised GLUCOSE reference range effective 2017. LAB L501.1000 7-18 mg/dL High BUN 37 LAB L501.1100 0.70-1.30 mg/dL Normal CREAT,SERUM 1.22 Result Comment: The validity of the calculated GFR AND GFRAA in patients over 70 years has not been determined. Clinical correlation is essential. LAB L501.1110 >60 mL/min Normal EST GFR 62 Result Comment: Non- GFR Calc LAB L501.1115 >60 mL/min Normal EST GFR - AA 75 Result Comment: GFR Calc LAB L501.1255 ml/min Normal Estimated CRCL 51.39 LAB L501.1300 10-20 RATIO High BUN/CRE 30.3 LAB L501.2200 8.5-10 mg/dL Normal .1 CA 8.8 LAB L501.5300 136-14 mmol/L Low 5 NA 135 LAB L501.5600 3.5-5. mmol/L High 1 K 5.2 LAB L501.5900 98-107 mmol/L Low CL 97 LAB L501.6100 21.0-3 mmol/L High 2.0 CO2 34.0 LAB L501.6200 5-15 Low GAP 4 Performed By: #### L500.2500 #### [facility] [address] [place], [address] HEMOGLOBIN A1C Collected: 12/11/2017 Status: F Source: [place] 5:45 AM [facility] REPOSITORY TYPE CODE TESTS RESULT OUT OF RANGE REFERENCE UNITS LAB L501.9985 4.2-6.3 % High HGB A1C 6.4 Performed By: #### L501.9985 #### [facility] [address] [place], [place], [address] BEDSIDE GLUCOSE Collected: 12/10/2017 Status: F Source: [place] 10:49 PM [facility] REPOSITORY TYPE CODE TESTS RESULT OUT OF REFERENCE UNITS RANGE LAB L501.080 70-110 mg/dL High BEDSIDE GLU 217 Result Comment: Insulin Given MANAGEMENT OF PATIENT CARE PER NURSING PROTOCOL Performed By: #### L501.080 #### [facility] Point of Care [address] [place] [address]. [place], [place] [address] TYPE AND SCREEN Collected: 12/10/2017 Status: F Source: [place] 5:47 PM [facility] REPOSITORY Order Comment: CMV NEG? N Number of units to transfuse: 1 Reason for Ordering Blood: Chronic Are the blood/blood products to be transfused? Y Is the patient having/had surgery? N CMV NEG?* N Give When? When Ready Irradiated? N Leukodepleted? Y Reason for Type AND Screen/Red Cells: ANEMIA TYPE CODE TESTS RESULT OUT OF RANGE REFERENCE UNITS LAB B10.0800 A Normal BLOOD TYPE GEL POSITIVE LAB B100.4000 Normal Antibody NEGATIVE Screen Performed By: #### B101.7450 #### [facility] [facility] [place], [place], [address] RC Collected: 12/10/2017 Status: F Source: [place] 5:47 PM [facility] REPOSITORY TYPE CODE TESTS RESULT OUT OF REFERENCE UNITS RANGE LAB U100.0000 [id number] TRANSFUSED PRODUCT: T AND S with Crossmatch, Red Cells COUNT: 1 Performed By: #### U100.0000 #### [facility] - refer to report for specific site BEDSIDE GLUCOSE Collected: 12/10/2017 Status: F Source: [place] 4:26 PM [facility] REPOSITORY TYPE CODE TESTS RESULT OUT OF REFERENCE UNITS RANGE LAB L501.080 70-110 mg/dL High BEDSIDE GLU 233 Result Comment: MANAGEMENT OF PATIENT CARE PER NURSING PROTOCOL Performed By: #### L501.080 #### [facility] Point of Care [address] [facility] [place] [address] HH, HEMOGLOBIN AND Collected: 12/10/2017 Status: F Source: [place] HEMATOCRIT 2:55 PM [facility] REPOSITORY TYPE CODE TESTS RESULT OUT OF RANGE REFERENCE UNITS LAB L100.1300 13.0-16.5 g/dl Low HGB 7.0 LAB L100.1400 40-54 % Low HCT 23.4 Performed By: #### L100.0600 #### [facility] [address] [facility] [address] [place], [place], [address] BEDSIDE GLUCOSE Collected: 12/10/2017 Status: F Source: [place] 11:30 AM [facility] REPOSITORY TYPE CODE TESTS RESULT OUT OF REFERENCE UNITS RANGE LAB L501.080 70-110 mg/dL High BEDSIDE GLU 300 Result Comment: MANAGEMENT OF PATIENT CARE PER NURSING PROTOCOL Performed By: #### L501.080 #### [facility] Point of Care [address] [place] [address] CBC W/DIFF, AUTOMATED Collected: 12/10/2017 Status: F Source: [place] 7:30 AM [facility] REPOSITORY Order Comment: PT RECEIVING BLOOD ON MORNING RUN [facility] TYPE CODE TESTS RESULT OUT OF RANGE REFERENCE UNITS LAB L100.1000 4.4-11.0 K/mm3 Normal WBC 7.8 LAB L100.1200 4.6-6.2 M/mm3 Low RBC 2.84 LAB L100.1300 13.0-16.5 g/dl Low HGB 7.2 LAB L100.1400 40-54 % Low HCT 24.1 LAB L100.1500 80-94 fL Normal MCV 84.9 LAB L100.1600 27.0-32.0 pg Low MCH 25.4 LAB L100.1700 32-36 g/gl Low MCHC 29.9 LAB L100.1810 11.6-14.6 % High RDW CV 15.1 LAB L100.1820 35.1-43.9 fl High RDW SD 47.4 LAB L100.1900 150-450 K/mm3 Normal PLT 242 LAB L100.2000 6.2-12.0 fl Normal MPV 8.8 LAB L100.2100 47-70 % High NEUT% 89.3 LAB L100.2200 19-41 % Low LY% 6.8 LAB L100.2300 0-10 % Normal MONO% 3.4 LAB L100.2400 0-5 % Normal EO% 0.0 LAB L100.2500 0-1 % Normal BASO% 0.1 LAB L100.2550 0.0-0.9 % Normal IM GRAN % 0.400 Result Comment: IG% - Immature Granulocytes (promyelocytes, myelocytes and metamyelocytes) > 1% indicates that a LEFT SHIFT is Present. LAB L100.2620 2.0-7.7 X10 3/uL Normal Absolute Neut 7.0 LAB L100.2720 0.83-4.51 X10 3/ul Low Absolute Lymph 0.53 Performed By: #### L100.0100 #### [facility] [address] [place], [address] BASIC METABOLIC Collected: 12/10/2017 Status: F Source: [place] PROFILE (BMP) 7:30 AM [facility] REPOSITORY Order Comment: PT RECEIVING BLOOD ON MORNING RUN [facility] TYPE CODE TESTS RESULT OUT OF RANGE REFERENCE UNITS LAB L501.0100 74-106 mg/dL High GLU 156 Result Comment: Fasting Glucose result greater than or equal to 126 mg/dL suggests DIABETES MELLITUS per A.D.A. criteria. Please note revised GLUCOSE reference range effective 2017. LAB L501.1000 7-18 mg/dL High BUN 27 LAB L501.1100 0.70-1.30 mg/dL Normal CREAT,SERUM 1.10 Result Comment: The validity of the calculated GFR AND GFRAA in patients over 70 years has not been determined. Clinical correlation is essential. LAB L501.1110 >60 mL/min Normal EST GFR 69 Result Comment: Non- GFR Calc LAB L501.1115 >60 mL/min Normal EST GFR - AA 84 Result Comment: GFR Calc LAB L501.1255 ml/min Normal Estimated CRCL 57.00 LAB L501.1300 10-20 RATIO High BUN/CRE 24.5 LAB L501.2200 8.5-10 mg/dL Low .1 CA 8.4 LAB L501.5300 136-14 mmol/L Normal 5 NA 136 LAB L501.5600 3.5-5. mmol/L Normal 1 K 4.9 LAB L501.5900 98-107 mmol/L Low CL 97 LAB L501.6100 21.0-3 mmol/L Normal 2.0 CO2 32.0 LAB L501.6200 5-15 Normal GAP 7 Performed By: #### L500.2500, L506.0250 #### [facility] [address] [place], [address] FOLATES, (FOLIC ACID) Collected: 12/10/2017 Status: F Source: [place] 7:30 AM [facility] REPOSITORY Order Comment: PT RECEIVING BLOOD ON MORNING RUN [facility] TYPE CODE TESTS RESULT OUT OF RANGE REFERENCE UNITS LAB L506.0250 3.1-55.4 ng/mL Normal FOLATES 19.90 Performed By: #### L500.2500, L506.0250 #### [facility] [address] [facility] [place], [address] VITAMIN B12 Collected: 12/10/2017 Status: F Source: [place] 7:30 AM [facility] REPOSITORY Order Comment: PT RECEIVING BLOOD ON MORNING RUN [facility] TYPE CODE TESTS RESULT OUT OF RANGE REFERENCE UNITS LAB L503.0105 211-911 pg/mL Normal Vitamin B12 540 Performed By: #### L503.0105 #### [facility] [address], [address] BEDSIDE GLUCOSE Collected: 12/10/2017 Status: F Source: [place] 7:02 AM [facility] REPOSITORY TYPE CODE TESTS RESULT OUT OF REFERENCE UNITS RANGE LAB L501.080 70-110 mg/dL High BEDSIDE GLU 161 Result Comment: MANAGEMENT OF PATIENT CARE PER NURSING PROTOCOL Performed By: #### L501.080 #### [facility] Point of Care [address] [place] [address] BNP,B-TYPE NATRIURETIC Collected: 12/09/2017 Status: F Source: [place] 10:30 PM [facility] REPOSITORY Order Comment: Comments: Add to specimen in lab TYPE CODE TESTS RESULT OUT OF RANGE REFERENCE UNITS LAB L503.6620 0-100 pg/mL High B-TYPE 205.8 ROYA PEP Performed By: #### L503.6620 #### [facility] [address] [facility] [address] [place], [place], [address] TYPE AND SCREEN Collected: 12/09/2017 Status: F Source: [place] 10:30 PM [facility] REPOSITORY Order Comment: CMV NEG? N Number of units to transfuse: 1 Is this product for anemia associated with hemoglobinopathy? N Is pt's Hgb is </= to 7.0 mg/dl or Hct </= 21%? Y Is there an orthostatic change in BP (SBP drop > 10mmHg)? N Is this for PREOP anemia correction prior to anesthesia? N Reason for Ordering Blood: Chronic Is there symptomatic anemia? Y Are the blood/blood products to be transfused? Y Is the patient having/had surgery? N Give When? When Ready Irradiated? N Leukodepleted? Y TYPE CODE TESTS RESULT OUT OF RANGE REFERENCE UNITS LAB B10.0800 A Normal BLOOD TYPE GEL POSITIVE LAB B100.4000 Normal Antibody NEGATIVE Screen Performed By: #### B101.7450 #### [facility] [address] [facility] [place], [address] RC Collected: 12/09/2017 Status: F Source: [place] 10:30 PM [facility] REPOSITORY TYPE CODE TESTS RESULT OUT OF REFERENCE UNITS RANGE LAB U100.0000 [id number] TRANSFUSED PRODUCT: T AND S with Crossmatch, Red Cells COUNT: 1 Performed By: #### U100.0000 #### [facility] - refer to report for specific site RC Collected: 12/09/2017 Status: F Source: [place] 10:30 PM [facility] REPOSITORY TYPE CODE TESTS RESULT OUT OF REFERENCE UNITS RANGE LAB U100.0000 [id number] TRANSFUSED PRODUCT: T AND S with Crossmatch, Red Cells COUNT: 1 Performed By: #### U100.0000 #### [facility] - refer to report for specific site BEDSIDE GLUCOSE Collected: 12/09/2017 Status: F Source: [place] 10:00 PM [facility] REPOSITORY TYPE CODE TESTS RESULT OUT OF RANGE REFERENCE UNITS LAB L501.080 70-110 mg/dL Normal BEDSIDE GLU 94 Result Comment: MANAGEMENT OF PATIENT CARE PER NURSING PROTOCOL Performed By: #### L501.080 #### [facility] Point of Care [address] [place] [address] HISTORY AND PHYSICAL Observed: 12/09/2017 Status: F Source: [place] EXAM 9:27 PM [facility] REPOSITORY [facility] Medical Records Department [address] [place] [address] History and Physical 12/09/172021 MR#: [id number] Acct: [id number] Name: EVERETT IYER Rep #: [id number] : 1945 72 From: Garrett Whitley MD PCP: Jack Verdugo MD Status: ADM IN Y Location: [place] [address] Problem List (1) Venous stasis dermatitis Status: Chronic (2) Anemia Status: Chronic (3) Osteoarthritis Status: Chronic (4) Lymphedema Status: Chronic (5) Super obesity Status: Chronic (6) Gout Status: Chronic (7) Depression Status: Chronic (8) Bilateral leg edema Status: Chronic (9) Diabetes mellitus with neuropathy Status: Chronic Qualifiers: Diabetes mellitus type: type 2 (10) Acute on chronic respiratory failure with hypoxia and hypercapnia Status: Acute (11) MIKO (obstructive sleep apnea) Status: Chronic Comment: BiPAP 18/12 cm of water (12) HTN (hypertension) Status: Chronic Qualifiers: Hypertension type: essential hypertension Qualified Code(s): I10 - Essential (primary) hypertension (13) COPD (chronic obstructive pulmonary disease) Status: Acute Qualifiers: Comment: FEV1 58% (14) Pulmonary embolism on right Status: Chronic Comment: Continue oral anticoagulation with Eliquis for a minimum of 6 months. Patient was educated on the signs and symptoms of bleeding as such as hemoptysis, hematemesis, hematochezia or melena stools. Patient has been advised to watch for these symptoms contact the office if they present. Follow-up with Dr. Clay in approximately 8 weeks as previously scheduled. (15) H/O aortic valve replacement Status: Chronic Comment: # 29 Freestyle valve History of Present Illness Date of Admission: 12/09/17 Chief Complaint: Shortness of breath The patient is a 72 year old M with a significant history of CAD, CVA stroke TIA, CHF, asthma COPD, GERD, PE, diabetes mellitus, hypertension, high cholesterol, lymphedema, continues home oxygen use; aortic aneurysm repair and bovine aortic valve replacements , umbilical hernia repair who presents because of worsening shortness of breath for about 1 week. Because of his increased shortness of breath patient has had to increase his home oxygen use from 3.5 L to 4 L. Patient reported since 1991 he has been sleeping in a recliner because of shortness of breath. Every night he uses a CPAP. Associated with the symptoms is increasing swelling in bilateral lower extremities. Past Medical History Past Medical History (Chronic Problems): Chronic Problems (Last Reviewed 12/09/17 @ 21:05 by Garrett Whitley MD) History of repair of thoracic aortic aneurysm (Chronic 12/11/09) Thoracic aortic aneurysm without rupture (Chronic) Venous stasis dermatitis (Chronic) Anemia (Chronic) Osteoarthritis (Chronic) Coronary artery disease (Chronic) Lymphedema (Chronic) Hyperlipidemia (Chronic) Super obesity (Chronic) Gout (Chronic) Depression (Chronic) Ulcer of right lower extremity with fat layer exposed (Chronic) Ulcer of left lower extremity with fat layer exposed (Chronic) Bilateral leg edema (Chronic) Tinea unguium (Chronic) Diabetes mellitus with neuropathy (Chronic) Delayed wound healing (Chronic) CKD (chronic kidney disease), stage II (Chronic) Wheezing (Chronic) MIKO (obstructive sleep apnea) (Chronic) BiPAP 18/12 cm of water HTN (hypertension) (Chronic) BPH (benign prostatic hypertrophy) (Chronic) Tinea unguium (Chronic) Diabetes mellitus with neuropathy (Chronic) Lymphedema of leg (Chronic) Multiple excoriations (Chronic) Asthma (Chronic) Arthritis (Chronic) Immobility (Chronic) 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 Patient was educated on the signs and symptoms of bleeding as such as hemoptysis, hematemesis, hematochezia or melena stools. Patient has been advised to watch for these symptoms contact the office if they present. Follow-up with Dr. Clay in approximately 8 weeks as previously scheduled. Adynamic ileus (Chronic) Ventral hernia (Chronic) Hypoglycemia (Chronic) Peripheral neuropathy (Chronic) Chronic anemia (Chronic) Benign prostatic hypertrophy without urinary obstruction (Chronic) CKD (chronic kidney disease), stage II (Chronic) CAD (coronary artery disease) (Chronic) Type II diabetes mellitus (Chronic) GERD (gastroesophageal reflux disease) (Chronic) Hypercholesteremia (Chronic) Morbid obesity (Chronic) Pulmonary hypertension (Chronic) H/O aortic valve replacement (Chronic 12/11/09) # 29 Freestyle valve Venous insufficiency (Chronic) Medical History: Medical History (Last Reviewed 12/09/17 @ 21:05 by Garrett Whitley MD) Thoracic aortic aneurysm without rupture (Chronic) I71.2 Acute on chronic diastolic heart failure (Acute) I50.33 Anemia (Chronic) D64.9 Coronary artery disease (Chronic) I25.10 Hyperlipidemia (Chronic) E78.5 Super obesity (Chronic) E66.9 Bilateral leg edema (Chronic) R60.0 Diabetes mellitus with neuropathy (Chronic) E11.40 Acute on chronic respiratory failure with hypoxia and hypercapnia (Acute) J96.21, J96.22 CKD (chronic kidney disease), stage II (Chronic) N18.2 Wheezing (Chronic) R06.2 Dyspnea (Acute) R06.00 MIKO (obstructive sleep apnea) (Chronic) G47.33 BiPAP 18/12 cm of water HTN (hypertension) (Chronic) I10 Tobacco abuse (Resolved) Z72.0 BPH (benign prostatic hypertrophy) (Chronic) N40.0 Tinea unguium (Chronic) B35.1 Diabetes mellitus with neuropathy (Chronic) E11.40 Edema of both legs (Acute) R60.0 Lymphedema of leg (Chronic) I89.0 Multiple excoriations (Chronic) T14.8 Asthma (Chronic) J45.909 COPD (chronic obstructive pulmonary disease) (Acute) J44.9 FEV1 58% Arthritis (Chronic) M19.90 Immobility (Chronic) Z74.09 Pulmonary embolism on right (Chronic) I26.99 Continue oral anticoagulation with Eliquis for a minimum of 6 months. Patient was educated on the signs and symptoms of bleeding as such as hemoptysis, hematemesis, hematochezia or melena stools. Patient has been advised to watch for these symptoms contact the office if they present. Follow-up with Dr. Clay in approximately 8 weeks as previously scheduled. CAP (community acquired pneumonia) (Resolved) J18.9 The patient appropriately completed antibiotics and prednisone as prescribed. He has no further signs and symptoms of persistent pneumonia. No indication for any further testing at this time. Patient will be eligible for Pneumovax 23 in approximately 6 months. He states that his PCP is very good at keeping track of his immunizations and when they are due. Adynamic ileus (Chronic) K56.0 Ventral hernia (Chronic) K43.9 Hypoglycemia (Chronic) E16.2 Peripheral neuropathy (Chronic) G62.9 Chronic anemia (Chronic) D64.9 Benign prostatic hypertrophy without urinary obstruction (Chronic) N40.0 CKD (chronic kidney disease), stage II (Chronic) N18.2 CAD (coronary artery disease) (Chronic) I25.10 Type II diabetes mellitus (Chronic) E11.9 GERD (gastroesophageal reflux disease) (Chronic) K21.9 Hypercholesteremia (Chronic) E78.00 Morbid obesity (Chronic) E66.01 Pulmonary hypertension (Chronic) I27.2 Venous insufficiency (Chronic) CHF exacerbation (Resolved) I50.9 Leg swelling (Inactive) M79.89 Nausea and vomiting (Inactive) R11.2 Tinea unguium (Inactive) B35.1 Allergies naphazoline HCl [From Naphcon] Allergy (Severe, Verified 12/09/17 17:49) affected his breathing AFFECTED HIS BREATHING amlodipine besylate [From Norvasc] Allergy (Verified 12/09/17 17:49) Other dextromethorphan Allergy (Verified 12/09/17 17:49) Other levofloxacin [From Levaquin] Adverse Reaction (Mild, Verified 12/09/17 17:49) made me hyperactive made me hyperactive Home Medications: Ambulatory Orders Medication Instructions Recorded Allopurinol [Zyloprim] 300 mg PO DAILY 03/30/17 Atorvastatin Calcium [Lipitor] 40 mg PO QHS 03/30/17 Surgical History: Surgical History (Last Reviewed 10/21/17 @ 12:51 by Mackenzie Wallace, VOCATIONAL PSYCHOLOGIST-C) History of repair of thoracic aortic aneurysm (Chronic) Onset Date: 12/11/09 Z98.890, Z86.79 H/O aortic valve replacement (Chronic) Onset Date: 12/11/09 Z95.2 # 29 Freestyle valve Surgical History: - - He has a bioprosthetic aortic valve replacement, abdominal aortic aneurysm repair '05, recent surgery to repair a large ventral hernia. Psychiatric History: Anxiety, Depression Smoking Status: Former smoker Tobacco Use: Cigarettes - *Family History Maternal Family History: Family History (Last Reviewed 10/21/17 @ 12:51 by YVETTE Pimentel) Brother TBI (traumatic brain injury) Sister Ulcerative colitis History Items: Hypertension, - - Patient's father at the age of 94 from old age. Patient's mother at age of 87 with a history of hyperlipidemia and hypertension. Paternal Family History: Family History (Last Reviewed 10/21/17 @ 12:51 by YVETTE Pimentel) Brother TBI (traumatic brain injury) Sister Ulcerative colitis History Items: Hypertension Review of Systems Constitutional: Reports: Fatigue Eyes: Denies: Blurred vision, Pain HEENT: Denies: Head Aches, Sinus Congestion, Sinus Drainage Cardiovascular: Reports: Edema, Orthopnea - chronic Respiratory: Reports: Shortness of breath at rest, Shortness of breath upon exertion Gastrointestinal: Denies: Abdominal Pain, Nausea, Vomiting Genitourinary: Denies: Dysuria Musculoskeletal: Reports: Shoulder Pain - chronic-due to falling, - - Left knee pain due to osteoarthritis Skin: Reports: Wounds - A bilateral legs. Neurological: Denies: Slurred speech, Confusion, Focal weakness Psychiatric: Reports: Depression Hematologic/ Lymphatic: Denies: Easy Bruising, Easy Bleeding VTE Information - Inpt Only VTE Present on Admission: No VTE Mechan Device Prophylaxis: None Reason prophylaxis not ordered:: Medical Contraindication - Physical Exam General: Alert, Oriented x3, Cooperative HEENT: Atraumatic, PERRLA, EOMI, Normocephalic Neck: Supple Lungs: Rhonchi Cardiovascular: - - Diminished heart sounds (likely due to obesity) Abdomen: Obese, - - Diminished Extremities: Edema - +2 Skin: - - Longitudinal excoriation spanning anti-bilateral denney Musculoskeletal: Tenderness - Bilateral feet Lymphatic: No Cervical, Supraclavicular, or Inguinal Adenopathy Neurological: Cranial nerves II-XII grossly intact Psych/Mental Status: Normal Affect Vital Signs Temp Pulse Resp BP Pulse Ox 98.0 F 82 18 171/83 H 94 12/09/17 17:38 12/09/17 19:46 12/09/17 19:46 12/09/17 19:46 12/09/17 19:46 Oxygen Flow Rate (L/min) 4 Oxygen Delivery Method Nasal Cannula Weight: 167.3 kg Body Mass Index (BMI) 56.0 Finger Stick Blood Glucose 116 Laboratory Tests Past 24 Hrs WBC 6.8 RBC 2.71 L Hgb 6.7 L WBC RBC Hgb Hct Assessment/Plan All Active Problems (Last Reviewed 12/09/17 @ 21:05 by Garrett Whitley MD) Acute on chronic diastolic heart failure (Acute) Bilateral lower leg cellulitis (Acute) Open wound, lower leg (Acute) Acute on chronic respiratory failure with hypoxia and hypercapnia (Acute) Dyspnea (Acute) Tobacco abuse (Resolved) Edema of both legs (Acute) COPD (chronic obstructive pulmonary disease) (Acute) CAP (community acquired pneumonia) (Resolved) CHF exacerbation (Resolved) Hyperkalemia (Resolved) Hypomagnesemia (Resolved) Hyponatremia (Resolved) Patient is a 72 year old M with a significant history of CAD, CVA stroke TIA, CHF, asthma COPD, GERD, PE, diabetes mellitus, hypertension, high cholesterol, lymphedema, continues home oxygen use; aortic aneurysm repair and bovine aortic valve replacements , umbilical hernia repair who presents because of worsening shortness of breath concerning for acute exacerbation of heart failure and COPD. Acute hypoxic and hypercarbic chronic respiratory failure secondary to COPD exacerbation and heart failure Acute heart failure with preserved ejection fraction CXR shows congestion with small left basilar a new effusion Echo on 3029 2017 is as below This was a 2D Doppler, Color Flow transthoracic echocardiogram. The study was technically difficult. The study was technically limited. Due to body habitus. Contrast injection was performed. Exam performed portable in patient room. Left Ventricle Normal LV size. Moderate concentric left ventricular hypertrophy. Left ventricular systolic function is normal. The estimated ejection fraction is 60 %. No regional wall motion abnormalities noted. Right Ventricle Normal RV size. Normal systolic function. Pericardium/Pleural No pericardial effusion. BNP ordered Patient received Lasix 40 mg IV push 1 in the ED Patient reports taking Lasix 40 mg twice a day at home Lasix 40 mg IV push twice a day or date Acute COPD exacerbation ABG with some hypercarbia and hypoxia Solu-Medrol 125 received at the ED Solu-Medrol 40 mg every 8 hours ordered and Scheduled DuoNeb and As needed albuterol Home breathing treatments continued on Zithromax ordered Uses Home CPAP. We will do BiPAP nightly at this time. Anemia Two weeks ago his hemoglobin was 8.0. Hemoglobin on the outcome of admission 6.7. No source of bleeding identified Patient has a history of chronic anemia. While units of packed red blood cells ordered at the ED. Repeat hemoglobin 1 hour after transfusion is completed. Fecal occult blood test ordered Iron and ferritin studies ordered Vitamin B12 and folate level ordered. Diabetes mellitus Home metformin and Amaryl held Lantus continued Prandial insulin and correction scale insulin added History of pulmonary embolism Continue home Eliquis Chronic wound and lymphedema Continue current dressing Wound care consult. Hypertension continue clonidine, losartan and metoprolol Gout continue allopurinol DVT prophylaxis On Eliquis continued Code Visit Inpatient E AND M: 21206 Init Hosp L3 12/09/172126 <Electronically signed by Garrett Whitley MD> Date Garrett Whitley MD Cosigner Signature: Date (if applicable) CC: Garrett Whitley MD; Jack Verdugo MD Signed EMERGENCY DEPARTMENT Observed: 12/09/2017 Status: F Source: [place] SUMMARY 7:20 PM [facility] REPOSITORY [facility] Medical Records Department [address] [facility] [place] [address] Emergency Department Summary 12/09/17 1759 MR#: [id number] Acct: [id number] Name: EVERETT IYER Rep #: [id number] : 1945 72 From: Shreya Morgan MD PCP: Jack Verdugo MD Status: REG ER - ER Visit Summary Date of Service: 12/09/17 Chief Complaint: Shortness of breath History of Present Illness: The patient is a 72 M presenting with shortness of breath which started yesterday. Patient states he has had to increase his normal home O2. He has had shortness of breath, productive cough. He denies chest pain. He has had increasing lower extremity edema. He has chronic lymphedema. He has been treated for cellulitis since August. He states he was kicked out of the wound center and now follows with Dr. Verdugo. He is not currently on antibiotics. He has a history of coronary disease, CHF, asthma, COPD, diabetes, hypertension, hypercholesterolemia, obstructive sleep apnea, chronic kidney disease, pulmonary hypertension, PE on Eliquis, gout, depression, thoracic aortic aneurysm. Physical Examination: Vitals are stable. Patient is afebrile. Alert no acute distress. HEENT exam is unremarkable. Neck is supple. Lungs are expiratory wheezing bilaterally. Heart is regular rate and rhythm. Abdomen is soft nontender obese Extremities bilateral lower extremity lymphedema, chronic skin changes, erythema bilateral lower legs. Skin is warm and dry. No focal neurologic deficit. Remainder of exam is unremarkable. Emergency Department Course and Treatment: Patient was given albuterol aerosols. EKG is sinus rate is 76. Chest x-ray shows cardiomegaly, CHF, left pleural effusion. CBC shows a hemoglobin of 6.7. Chemistry CO2 34, BUN 24. Troponin is negative. Lactic acid is normal. Patient was typed and cross for 1 unit of packed red blood cells. He is given Lasix and Solu-Medrol IV. Discussed with the hospitalist for admission. Disposition: Admission Impression: COPD, CHF exacerbation, anemia This note was generated with R&[employer] dictation software. It may contain incorrect words, spelling, and punctuation that were not noted in review of the chart prior to signing ED Disposition - Plan for ED Patient: Chief Complaint: Shortness of Breath Referrals: Jack Verdugo MD [Primary Care Provider] - What to do if you have Problems For any increased pain, shortness of breath, bleeding, nausea or vomiting, chest pain, or any unexpected problems, contact your Primary Care Provider. Call [email or web address] [facility] ([phone]) or report to the closest Emergency Room. Call 911 if necessary. 12/09/171919 <Electronically signed by Shreya Morgan MD> Date Shreya Morgan MD Cosigner Signature (If Indicated): Date CC: Jack Verdugo MD BLOOD GASES BY CPS Collected: 12/09/2017 Status: F Source: [place] 6:36 PM [facility] REPOSITORY TYPE CODE TESTS RESULT OUT OF RANGE REFERENCE UNITS LAB L9000.9990 Normal BLD GAS TYPE ART LAB L9001.1000 Normal SITE L Radial LAB L9001.1010 Normal ANA LILIA TEST POS LAB L9001.1050 O2 Normal Delivery Dev Nasal Can LAB L9001.1055 /min Normal LPM 3.0 LAB L9001.1104 Normal Results To ED LAB L9001.1105 Normal Time Given 1830 LAB L9001.1110 7.35-7.45 pH Normal - I-STAT 7.37 LAB L9001.1210 35-45 mmHg High pCO2 - ISTAT 56.2 LAB L9001.1310 75-100 mmHG Normal PO2 I-STAT 89 LAB L9001.2300 22-26 mmol/L High HCO3 ISTAT 32.2 LAB L9001.2400 -2 to +2 mmol/L High BE ISTAT 7 LAB L9001.2415 mmol/L Normal TOTAL CO2 34 ISTAT LAB L9001.2425 95-99 % Normal SO2 ISTAT 96 Performed By: #### L9000.0800 #### [facility] Point of Care [address] [place] [address] CHEST 1 VIEW Observed: 12/09/2017 Status: F Source: [place] (PORTABLE) 5:58 PM [facility] REPOSITORY [facility] Imaging Services [address] [place] [address] Chest 1 View (Portable) MR#: [id number] Acct: [id number] Name: EVERETT IYER Rep #: [id number] : 1945 M 72 From: Amado Eugene MD PCP: Jack Verdugo MD Status: PRE ER Study: Chest 1 View (Portable) Date of Exam: 12/09/17 Exam# [id number] Ordering Dr: Shreya Morgan MD STUDY: X-RAY CHEST REASON FOR EXAM: Male, 72 years old. Shortness of breath x2 days, history of asthma, COPD, and CHF TECHNIQUE: Single AP portable view of the chest. COMPARISON: Prior study of 11/27/2017 FINDINGS: spring assembler leads are present. There is a bandlike density of the right mid lung field extending into the right mediastinal region which may be artifactual in nature. There is prominence of the bronchopulmonary marking pattern of the lung bases consistent with atelectasis. There is a small left-sided pleural effusion. There is moderate cardiac enlargement. Status post sternotomy changes are seen. Normal mediastinum and radha. There is prominence of the pulmonary hilar arteries and peripheral pulmonary arteries, consistent with congestive heart failure (CHF). There are calcified plaques of the aortic arch. Normal visualized thoracic spine. Normal visualized ribs, clavicles, and shoulders. There is no demonstrated abnormality of the visualized soft tissue structures of the upper abdomen. RAD/Chest 1 View (Portable) IMPRESSION: 1. There is a bandlike density of the right midlung field extending into the right mediastinal region which may be artifactual in nature. 2. Prominence of the bronchopulmonary marking pattern of the lung bases consistent with atelectasis, similar to the previous study. 3. There is mild CHF, new in the interval. 4. Moderate cardiomegaly. Status post sternotomy. 5. Small left basilar effusion, new in the interval. Electronically Signed: Amado Eugene MD at 18:35 EDT , Service support , CC: Shreya Morgan MD; Jack Verdugo MD Aircraft Refueller: Signed CBC W/DIFF, AUTOMATED Collected: 12/09/2017 Status: F Source: [place] 5:48 PM [facility] REPOSITORY TYPE CODE TESTS RESULT OUT OF RANGE REFERENCE UNITS LAB L100.1000 4.4-11.0 K/mm3 Normal WBC 6.8 LAB L100.1200 4.6-6.2 M/mm3 Low RBC 2.71 LAB L100.1300 13.0-16.5 g/dl Low HGB 6.7 LAB L100.1400 40-54 % Low HCT 23.2 LAB L100.1500 80-94 fL Normal MCV 85.6 LAB L100.1600 27.0-32.0 pg Low MCH 24.7 LAB L100.1700 32-36 g/gl Low MCHC 28.9 LAB L100.1810 11.6-14.6 % High RDW CV 15.3 LAB L100.1820 35.1-43.9 fl High RDW SD 48.1 LAB L100.1900 150-450 K/mm3 Normal PLT 222 LAB L100.2000 6.2-12.0 fl Normal MPV 8.6 LAB L100.2100 47-70 % High NEUT% 76.8 LAB L100.2200 19-41 % Low LY% 10.1 LAB L100.2300 0-10 % Normal MONO% 9.8 LAB L100.2400 0-5 % Normal EO% 2.8 LAB L100.2500 0-1 % Normal BASO% 0.1 LAB L100.2550 0.0-0.9 % Normal IM GRAN % 0.400 Result Comment: IG% - Immature Granulocytes (promyelocytes, myelocytes and metamyelocytes) > 1% indicates that a LEFT SHIFT is Present. LAB L100.2620 2.0-7.7 X10 3/uL Normal Absolute Neut 5.2 LAB L100.2720 0.83-4.51 X10 3/ul Low Absolute Lymph 0.68 Performed By: #### L100.0100 #### [facility] [address] [place], [place],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 4x times a day. Dx: E11.65. On insulin. Hypoglycemia. allopurinol (ZYLOPRIM) 300 mg tablet TAKE 1 TABLET EVERY DAY for FOR GOUT Nutritional Supplements (CANDIDO) pack Take 237 mL by mouth twice daily. apixaban (ELIQUIS) 5 mg tab(s) Take 1 tablet by mouth twice daily. metFORMIN (GLUCOPHAGE) 500 mg tablet Take 1 tablet by mouth three times daily with meals. loratadine (CLARITIN) 10 mg tablet Take 10 mg by mouth once daily. COMPOUNDED PRESCRIPTION Take 2 tablets by mouth once daily. Mucus relief PE albuterol HFA (VENTOLIN HFA) 90 mcg/actuation inhaler Inhale 2 Puffs as instructed every 4 hours as needed for Wheezing/Shortness of Breath. clopidogrel (PLAVIX) 75 mg tablet Take 1 tablet by mouth once daily. spironolactone (ALDACTONE) 25 mg tablet TAKE 1 TABLET TWICE DAILY atorvastatin (LIPITOR) 80 mg tablet Take 0.5 tablets by mouth once daily. metoprolol tartrate, short acting, (LOPRESSOR) 50 mg tablet Take 1 tablet by mouth twice daily. losartan (COZAAR) 100 mg tablet TAKE 1 TABLET BY MOUTH EVERY DAY hydrOXYzine HCl (ATARAX) 25 mg tablet TAKE 1 TABLET BY MOUTH THREE TIMES DAILY for nervous itching/scratching cloNIDine TTS (CATAPRES-TTS) 0.3 mg/24 hr Apply 1 Patch as directed once each week. Lancets (ONETOUCH ULTRASOFT LANCETS) lancets Use four times a day Dx: E11.65 insulin needles, DISPOSABLE, (BD INSULIN PEN NEEDLE UF) 31 gauge x 5/16 ndle 1 Each once daily. Dx: 250.00 Insulin: yes magnesium oxide (MAG-OX) 400 mg tablet Take 2 tablets by mouth twice daily. ipratropium-albuterol (DUONEB) 0.5 mg-3 mg(2.5 mg base)/3 mL nebu Inhale 3 mL as instructed every 4 hours as needed (wheezing). Use over 5-15minutes per nebulizer. acetaminophen (TYLENOL EXTRA STRENGTH) 500 mg tablet Take 2 tablets by mouth every 6 hours as needed for Pain (Patient takes 2x/day). Terazosin HCl (HYTRIN) 10 mg capsule Take 1 capsule by mouth daily at bedtime. finasteride (PROSCAR) 5 mg tablet Take 1 tablet by mouth once daily. Ferrous Sulfate 325 mg (65 mg iron) tablet Take 1 tablet by mouth once daily. alcohol antiseptic pads(ALCOHOL PREP PADS) use as directed COLACE 100 MG CAP Take one(1) tablet two(2) times daily. MULTIVITAMIN TAB Take one(1) tablet daily. montelukast (SINGULAIR) 10 mg tablet Take 1 tablet by mouth daily at bedtime. fluticasone-salmeterol (ADVAIR DISKUS) 500-50 mcg/dose dsdv Inhale 1 Puff as instructed twice daily. No current facility-administered medications for this visit. Objective BP (!) 138/46 (BP Site: Left Arm, BP Position: Sitting, BP Cuff Size: Large Adult) Pulse 90 Resp 20 Wt (!) 161.9 kg (357 lb) SpO2 96% BMI 54.28 kg/m? Physical Exam Constitutional: No distress. Morbid obesity, wheelchair bound, on portable O2. Eyes: Conjunctivae are normal. Neck: No JVD present. Cardiovascular: Regular rhythm and normal heart sounds. Exam reveals no gallop. No murmur heard. Pulmonary/Chest: He has decreased breath sounds in the right lower field and the left lower field. He has no wheezes. He has no rhonchi. He has no rales. Musculoskeletal: He exhibits edema. Skin: Erythema, excoriations mostly of right leg. Left leg with much less erythema or skin breakdown. Excoriations from scratching. Stasis changes. Compression wraps in place. Component Latest Ref Rng AND Units 11/03/2017 WBC 3.70 - 11.00 k/uL 6.71 RBC 4.20 - 6.00 m/uL 3.27 (L) Hemoglobin 13.0 - 17.0 g/dL 8.8 (L) Hematocrit 39.0 - 51.0 % 29.7 (L) MCV 80.0 - 100.0 fL 90.8 MCH 26.0 - 34.0 pG 26.9 MCHC 30.5 - 36.0 g/dL 29.6 (L) RDW-CV 11.5 - 15.0 % 15.3 (H) Platelet Count 150 - 400 k/uL 223 MPV 9.0 - 12.7 fL 9.6 Neut% % 76.8 Abs Neut (ANC) 1.45 - 7.50 k/uL 5.15 Lymph% % 11.5 Abs Lymph 1.00 - 4.00 k/uL 0.77 (L) [place]% % 7.7 Abs [place] <0.87 k/uL 0.52 Eosin% % 3.4 Abs Eosin <0.46 k/uL 0.23 Baso% % 0.6 Abs Baso <0.11 k/uL 0.04 Nucleated Reds 0 /100 WBC 0.0 Absolute nRBC <0.01 k/uL <0.01 Diff Type Auto Diff Protein, Total 6.3 - 8.0 g/dL 7.0 Albumin 3.9 - 4.9 g/dL 3.2 (L) Calcium 8.5 - 10.2 mg/dL 8.7 Bilirubin, Total 0.2 - 1.3 mg/dL 0.2 Alkaline Phosphatase 36 - 108 U/L 51 AST 14 - 40 U/L 18 Glucose 74 - 99 mg/dL 154 (H) BUN 9 - 24 mg/dL 16 Creatinine 0.73 - 1.22 mg/dL 1.04 Sodium 136 - 144 mmol/L 143 Potassium 3.7 - 5.1 mmol/L 4.2 Chloride 97 - 105 mmol/L 95 (L) CO2 22 - 30 mmol/L 31 (H) Anion Gap 9 - 18 mmol/L 17 ALT 10 - 54 U/L 10 eGFR- >60 eGFR-All Other Races . >60 Total Cholesterol, Nonfasting <200 mg/dL 129 Triglycerides, Nonfasting <150 mg/dL 351 (H) HDL Cholesterol, Nonfasting >39 mg/dL 25 (L) LDL Cholesterol, Nonfasting <100 mg/dL 34 Non HDL Cholesterol, Nonfasting <130 mg/dL 104 VLDL Cholesterol, Nonfasting <30 mg/dL 70 (H) Total Chol/HDL Ratio, Nonfasting <5.10 mg/dL 5.16 (H) LDL/HDL Ratio, Nonfasting <2.54 mg/dL 1.36 Hemoglobin A1C 4.3 - 5.6 % 7.6 (H) Estimated Average Glucose mg/dL 171 Assessment and Plan 1. Anemia in other chronic diseases classified elsewhere - ICD9: 285.29, ICD10: D63.8 (primary diagnosis) Monitor closely. Return or go to ER for symptoms discussed. - CBC 2. Acute congestive heart failure, unspecified heart failure type (HCC) - ICD9: 428.0, ICD10: I50.9 Stable. 3. Obsessive-compulsive disorder, unspecified type - ICD9: 300.3, ICD10: F42.9 - Discontinue OLANZAPINE for lack of effect. - SERTRALINE 100 MG TABLET. Increase to BID. Discussed medication dosage, usage, goals of therapy, and side effects. 4. Venous stasis ulcer of right lower extremity (HCC) - ICD9: 454.0, ICD10: I83.019, L97.919 Chronic. 5. Lymphedema of both lower extremities - ICD9: 457.1, ICD10: I89.0 Chronic. 6. DM type 2, uncontrolled, with neuropathy (HCC) - ICD9: 250.62, 357.2, ICD10: E11.40, E11.65 worsening control - Continue current medications - INSULIN GLARGINE (U-100) 100 UNIT/ML (3 ML) SUBCUTANEOUS PEN Increase to 35 units BID. Jack Verdugo MD Referring Provider: JACK VERDUGO [[id number]] Allergies As of Date: 11/05/2017 Noted Allergy Reaction LEVAQUIN (LEVOFLOXACIN) 05/13/2007 1 - Mental Status Change NALDECON SENIOR DX (DEXTROMETHORP*02/13/2005 5 - Intolerance NORVASC (AMLODIPINE BESYLATE) 02/13/2005 5 - Intolerance Date Reviewed: 11/05/2017 Reviewed by: Awa Vaughn - Fully Assessed Reason for Visit: 3 mo f/up [Other] Primary Visit Diagnosis:Anemia in other chronic diseases classified elsewhere [D63.8] Other Visit Diagnoses:Acute congestive heart failure, unspecified heart failure type (HCC) [I50.9] Obsessive-compulsive disorder, unspecified type [F42.9] Venous stasis ulcer of right lower extremity (HCC) [I83.019, L97.919] Lymphedema of both lower extremities [I89.0] DM type 2, uncontrolled, with neuropathy (HCC) [E11.40, E11.65] Order(s):[facility] [[facility]] Order #: [id number] FUTURE insulin glargine (LANTUS SOLOSTAR U-100 INSULIN) 100 unit/mL (3 mL) inpnInject 35 Units subcutaneously twice daily.Disp: Rfl: sertraline (ZOLOFT) 100 mg tabletTake 1 tablet by mouth twice daily.Disp: 60 tabletRfl: 5 Prescriptions as of 11/05/2017 Sig: INSULIN GLARGINE (U-100) 100 * Inject 35 Units subcutaneousl* SERTRALINE 100 MG TABLET Take 1 tablet by mouth twice * GLIMEPIRIDE 4 MG TABLET Take 2 tablets by mouth daily* LANSOPRAZOLE 15 MG CAPSULE,DE* Take 1 capsule by mouth once * POLYETHYLENE GLYCOL 3350 17 G* use 1 (ONE) PACKET daily D* FUROSEMIDE 80 MG TABLET TAKE 1 TABLET TWICE DAILY for* ELIQUIS 5 MG TABLET TAKE 1 TABLET TWICE DAILY for* ONETOUCH ULTRA BLUE TEST STRIP Check 4x times a day. Dx: E11* ALLOPURINOL 300 MG TABLET TAKE 1 TABLET EVERY DAY for F* NUTRITIONAL SUPPLEMENTS ORAL * Take 237 mL by mouth twice da* APIXABAN 5 MG TABLET Take 1 tablet by mouth twice * METFORMIN 500 MG TABLET Take 1 tablet by mouth three * LORATADINE 10 MG TABLET Take 10 mg by mouth once sunny* COMPOUNDED PRESCRIPTION Take 2 tablets by mouth once * ALBUTEROL SULFATE HFA 90 MCG/* Inhale 2 Puffs as instructed * CLOPIDOGREL 75 MG TABLET Take 1 tablet by mouth once d* SPIRONOLACTONE 25 MG TABLET TAKE 1 TABLET TWICE DAILY ATORVASTATIN 80 MG TABLET Take 0.5 tablets by mouth onc* METOPROLOL TARTRATE 50 MG TAB* Take 1 tablet by mouth twice * LOSARTAN 100 MG TABLET TAKE 1 TABLET BY MOUTH EVERY * HYDROXYZINE HCL 25 MG TABLET TAKE 1 TABLET BY MOUTH THREE * CLONIDINE 0.3 MG/24 HR WEEKLY* Apply 1 Patch as directed onc* LANCETS Use four times a day Dx: E1* PEN NEEDLE, DIABETIC 31 GAUGE* 1 Each once daily. Dx: 250.00* MAGNESIUM OXIDE 400 MG TABLET Take 2 tablets by mouth twice* IPRATROPIUM-ALBUTEROL 0.5 MG-* Inhale 3 mL as instructed lucille* ACETAMINOPHEN 500 MG TABLET Take 2 tablets by mouth every* TERAZOSIN 10 MG CAPSULE Take 1 capsule by mouth daily* FINASTERIDE 5 MG TABLET Take 1 tablet by mouth once d* FERROUS SULFATE 325 MG (65 MG* Take 1 tablet by mouth once d* ALCOHOL PREP PADS use as directed COLACE 100 MG CAPSULE Take one(1) tablet two(2) tasha* MULTIVITAMIN TABLET Take one(1) tablet daily. MONTELUKAST 10 MG TABLET Take 1 tablet by mouth daily * FLUTICASONE 500 MCG-SALMETERO* Inhale 1 Puff as instructed t* Medication notes this encounter MAGNESIUM OXIDE 400 MG TABLET >> Awa Vaughn 11/05/2017 6:51 PM >> AWA VAUGHN [facility] Nov 05, 2017 6:51 PM 250mg bid FLUTICASONE 250 MCG-SALMETEROL 50 MCG/DOSE BLISTR POWDR FOR INHALATION >> Awa Vaughn 11/05/2017 6:49 PM >> AWA VAUGHN [facility] Nov 05, 2017 6:49 PM Using 500/50 diskus Problem List As Of Date 11/05/2017 Noted Resolved Unspecified Essential Hypertension [I10] INVALID FOR*12/12/2009 Esophageal Reflux [K21.9] 12/12/2009 Asthma [J45.909] Hypertension goal BP (blood pressure) < 150/90 * Other and Unspecified Hyperlipidemia [E78.5] 01/10/2010 Priority: A More... DM w/o Complication Type II [E11.9] 12/13/2009 Priority: E Gout, unspecified [M10.9] Obesity, Class III, BMI 40-49.9 (morbid obesity* Priority: I BPH W URINARY OBS/LUTS [N40.1] INVALID FOR* OPEN WOUND KNEE/LEG-COMPL [S81.009A, S81.809A, *INVALID FOR*08/21/2008 Lymphedema of both lower extremities [I89.0] INVALID FOR* Thoracic Aneurysm without Mention of Rupture [I*INVALID FOR*12/13/2009 Priority: A More... ASCVD [I25.10] INVALID FOR* More... Osteoarthritis of knee [M17.10] INVALID FOR* More... GERD [K21.9] More... More... More... More... Atelectasis/pleural effusion [J98.11] INVALID FOR*01/10/2010 Priority: C More... DM type 2, uncontrolled, with neuropathy (HCC) *INVALID FOR* More... CAD (mild per cath) [I25.10] INVALID FOR*03/22/2010 Priority: A More... Oliguria [R34] INVALID FOR*12/13/2009 Priority: C More... Acute Renal Insufficiency [N28.9] INVALID FOR*12/27/2009 Priority: C More... More... A-fib (HCC) [I48.91] INVALID FOR*03/02/2014 ARF (Acute Renal Failure) [N17.9] INVALID FOR*12/18/2009 More... Respiratory Failure, Acute [J96.00] INVALID FOR*12/18/2009 Priority: B More... Leukocytosis [D72.829] INVALID FOR*12/27/2009 Priority: D More... Hypernatremia [E87.0] INVALID FOR*12/27/2009 Priority: C More... H/o Pericardial Effusion (moderate on d/c) [I3*INVALID FOR*01/16/2010 Priority: A More... More... Anemia [D64.9] INVALID FOR*01/10/2010 Priority: B More... More... H/o Fever (upon admission) [R50.9] INVALID FOR*01/12/2010 Priority: C More... Malnutrition [E46] INVALID FOR*01/10/2010 More... Hyperlipidemia with target LDL less than 70 [E7*INVALID FOR* Pleural Effusion/atelectasis [J90] INVALID FOR*04/05/2013 Priority: B More... Gout [M10.9] INVALID FOR*03/22/2010 Priority: D More... Sepsis [A41.9] INVALID FOR*03/22/2010 Priority: C More... Hypokalemia [E87.6] INVALID FOR*03/22/2010 Priority: C More... Renal insufficiency [N28.9] INVALID FOR*03/22/2010 Priority: C More... Ascending aortic aneurysm [I71.2] INVALID FOR*04/05/2013 Dilated aortic root [I77.810] INVALID FOR*04/05/2013 Anemia [D64.9] INVALID FOR* CKD (chronic kidney disease) stage 3, GFR 30-59*INVALID FOR* COPD (chronic obstructive pulmonary disease) [J*INVALID FOR* Status post aortic valve replacement with prost*INVALID FOR* CVA (cerebral vascular accident) (HCC) [I63.9] INVALID FOR*03/02/2014 More... Stasis leg ulcer (HCC) [I83.009, L97.909] INVALID FOR* Pruritic disorder [L29.9] INVALID FOR* MIKO (obstructive sleep apnea) [G47.33] INVALID FOR* Pulmonary embolus (HCC) [I26.99] INVALID FOR* Obsessive-compulsive disorder [F42.9] INVALID FOR* Acute congestive heart failure (HCC) [I50.9] INVALID FOR* Prescriptions ordered this encounter Disp Refills Start End INSULIN GLARGINE (U-100) 100 UNIT/ML* 11/05/2017 Class: Med Update Route: SUBCUTANEOUS Sig: Inject 35 Units subcutaneously twice daily. SERTRALINE 100 MG TABLET 60 t* 5 11/05/2017 Cmt: Discontinue sertraline 50 mg. Route: ORAL Sig: Take 1 tablet by mouth twice daily. Medications Discontinued During This Encounter COMPRESSION STOCKING,KNEE HIGH,LONG * 4 pa* 1 04/04/2008 11/05/2017 Class: Print RX Route: Miscell. (Med.Supl.;Non-Drugs) Sig: Sig Varis compression stockings. 30-40 mm Hg- size X2 - open toe. Beige. Disc: Reason for discontinue is not on file. fluticasone-salmeterol (ADVAIR DISKU* 1 In* 5 11/22/2016 11/05/2017 Route: INHALATION Sig: Inhale 1 Puff as instructed twice daily. Rinse and gargle mouth after use with water. Per Dr. Memo Clay. Disc: Reason for discontinue is not on file. insulin glargine (LANTUS SOLOSTAR U-* 09/22/2017 11/05/2017 Class: Med Update Cmt: Dose adjusted. Med-sync patient. If too soon, we will put new RX on hold for next cycle. Route: SUBCUTANEOUS Sig: Inject 30 Units subcutaneously twice daily. Disc: Reason for discontinue is not on file. sertraline (ZOLOFT) 50 mg tablet 90 t* 1 02/24/2017 11/05/2017 Route: ORAL Sig: Take 1 tablet by mouth every evening. In addition to 100 mg daily. Disc: Dosage adjustment sertraline (ZOLOFT) 100 mg tablet 90 t* 3 12/22/2016 11/05/2017 Route: ORAL Sig: Take 1 tablet by mouth once daily. Disc: Reason for discontinue is not on file. OLANZapine (ZYPREXA) 2.5 mg tablet 30 t* 2 07/20/2017 11/05/2017 Route: ORAL Sig: Take 1 tablet by mouth daily at bedtime. Disc: Lack of Efficacy Disposition: Return in about 3 months (around 02/05/2018), or if symptoms worsen or fail to improve. Follow-up and Disposition History Recorded Encounter Status:Closed by JACK VERDUGO MD on 11/07/17 CBC AND DIFFERENTIAL Collected: 11/03/2017 Status: F Source: [place] 10:[facility] REPOS[facility]ORY TYPE CODE TESTS RESULT OUT OF REFERENCE UNITS RANGE LAB WBC 3.70-11.00 k/uL WBC 6.71 LAB RBC 4.20-6.00 m/uL Low RBC 3.27 LAB HGB 13.0-17.0 g/dL Low Hemoglobin 8.8 LAB HCT 39.0-51.0 % Low Hematocrit 29.7 LAB MCV 80.0-100.0 fL MCV 90.8 LAB MCH 26.0-34.0 pG MCH 26.9 LAB MCHC 30.5-36.0 g/dL Low MCHC 29.6 LAB RDWCV 11.5-15.0 % RDW-CV High 15.3 LAB PLTCT 150-400 k/uL Platelet Count 223 LAB MPV 9.0-12.7 fL MPV 9.6 LAB ANEUT % Neut% 76.8 LAB AANEUT 1.45-7.50 k/uL Abs Neut 5.15 LAB ALYMP % Lymph% 11.5 LAB AALYMP 1.00-4.00 k/uL Low Abs Lymph 0.77 LAB AMONO % [place]% 7.7 LAB AAMONO <0.87 k/uL Abs [place] 0.52 LAB AEOS % Eosin% 3.4 LAB AAEOS <0.46 k/uL Abs Eosin 0.23 LAB ABASO % Baso% 0.6 LAB AABASO <0.11 k/uL Abs Baso 0.04 LAB AUNRBC 0 /100 WBC NRBCs 0.0 LAB ABNRBC <0.01 k/uL Absolute nRBC <0.01 LAB DTYP DTYPE Auto Diff Performed By: #### CBCDIF, HBA1C, CMP, LIPNF #### [facility] [employer] [address] [address] HEMOGLOBIN A1C Collected: 11/03/2017 Status: F Source: [place] 10:35 [facility] REPOSITORY TYPE CODE TESTS RESULT OUT OF REFERENCE UNITS RANGE LAB HGBA1C 4.3-5.6 % High Hemoglobin A1c 7.6 LAB HBA0 mg/dL Est. Average Glucose 171 Result Comment: eAG: (Estimated average glucose) is a calculated value from HgbA1c and is wine sales representative of the average blood glucose level in the last 2-3 month period. Performed By: #### CBCDIF, HBA1C, CMP, LIPNF #### [facility] [place] [employer] [facility] [address] COMP METABOLIC PANEL Collected: 11/03/2017 Status: F Source: [place] 10:35 [facility] REPOSITORY TYPE CODE TESTS RESULT OUT OF REFERENCE UNITS RANGE LAB TP 6.3-8.0 g/dL Protein, Total 7.0 LAB ALB 3.9-4.9 g/dL Low Albumin 3.2 LAB CA 8.5-10.2 mg/dL Calcium, Total 8.7 LAB TBIL 0.2-1.3 mg/dL Bilirubin, Total 0.2 LAB ALKP 36-108 U/L Alkaline Phosphatase 51 LAB AST 14-40 U/L AST 18 LAB GLU 74-99 mg/dL Glucose High 154 Result Comment: The [place] Diabetes Association (ADA) provides guidance for cutoff values for fasting glucose and random glucose. The ADA defines fasting as no caloric intake for at least 8 hours. Fas ting plasma glucose results between 100 to 125 mg/dL indicate increased risk for diabetes (prediabetes). Fasting plasma glucose results greater than or equal to 126 mg/dL meet the criteria for diagnosis of diabetes. In the absence of unequivocal hyperglycemia, results should be confirmed by repeat testing. In a patient with classic symptoms of hyperglycemia or hyperglycemic crisis, random plasma glucose results greater than or equal to 200 mg/dL meet the criteria for diagnosis of diabetes. Reference: Standards of Medical Care in Diabetes 2016, [place] Diabetes Association. Diabetes Care. 2016.39(Suppl 1). LAB BUN 9-24 mg/dL BUN 16 LAB CRET 0.73-1.22 mg/dL Creatinine 1.04 LAB NA 136-144 mmol/L Sodium 143 LAB K 3.7-5.1 mmol/L Potassium 4.2 LAB CL 97-105 mmol/L Low Chloride 95 LAB CO2 22-30 mmol/L CO2 High 31 LAB AGAP 9-18 mmol/L Anion Gap 17 LAB ALT 10-54 U/L ALT 10 LAB GFRAA eGFR- Amer. >60 LAB GFRNAA . eGFR-All Other Races >60 Result Comment: eGFR (Estimated GFR) Units of measure: mL/min/1.73 meters squared eGFR is derived from the reexpressed MDRD Study equation using the following parameters: serum creatinine, age, gender and race. The creatinine assay has been calibrated to be traceable to IDMS. An eGFR <60 mL/min/1.73m2 for >3 months is consistent with chronic kidney disease. Refer to KDOQI guidelines for clinical interpretation. In patients with unstable renal function, e.g. those with acute kidney injury, the eGFR may not accurately reflect actual GFR. Performed By: #### CBCDIF, HBA1C, CMP, LIPNF #### [facility] [place] [employer] [address] [place], [place] [address] LIPID PANEL, NONFAST Collected: 11/03/2017 Status: F Source: [place] 10:35 AM [facility] REPOSITORY TYPE CODE TESTS RESULT OUT OF REFERENCE UNITS RANGE LAB CHOLNF <200 mg/dL Total Cholesterol NF 129 Result Comment: <200 mg/dL, Desirable 200-239 mg/dL, Borderline high >239 mg/dL, High LAB TRIGNF <150 mg/dL Triglycerides, NF High 351 Result Comment: <150 mg/dL, Normal 150-199 mg/dL, Borderline high 200-499 mg/dL, High >499 mg/dL, Very high LAB HDLNF >39 mg/dL HDL Cholesterol, NF Low 25 Result Comment: 40-59 mg/dL, Acceptable >59 mg/dL, High: Negative risk factor for coronary heart disease <40 mg/dL, Low: Positive risk factor for coronary heart disease LAB LDLNF <100 mg/dL LDL Cholesterol, NF 34 Result Comment: <100 mg/dL, Optimal 100-129 mg/dL, Near optimal/above optimal 130-159 mg/dL, Borderline high 160-189 mg/dL, High >189 mg/dL, Very high Secondary prevention optimal LDL Cholesterol levels are recommended to be < 70 mg/dL LAB NOHDLN <130 mg/dL Non HDL Chol, 104 NF Result Comment: <130 mg/dL, Optimal 130-159 mg/dL, Near optimal/above optimal 160-189 mg/dL, Borderline high 190-219 mg/dL, High >219 mg/dL, Very high Secondary prevention optimal non HDL Cholesterol levels are recommended to be < 100 mg/dL LAB VLDLNF <30 mg/dL VLDL Cholesterol, High NF 70 LAB TCHDLN <5.10 mg/dL T Chol/HDL Ratio High NF 5.16 LAB LDLHDN <2.54 mg/dL LDL/HDL Ratio, NF 1.36 Result Comment: Reference: 1. National Cholesterol Education Program ATP III Guideline At-A-Glance Quick Desk Reference: National Heart, Lung, and Blood [place]. National Institutes of Health. 2001: NIH Publication No. 01-3305. 2. An International Atherosclerosis Society position paper: global recommendations for the management of dyslipidemia: executive summary, Atherosclerosis. 2014: 232(2):410-413. Performed By: #### CBCDIF, HBA1C, CMP, LIPNF #### [facility] [address] [place], [place] [address] PULMONARY VISIT REPORT Observed: 10/23/2017 Status: F Source: [place] 3:39 PM [facility] REPOSITORY [facility] [address] [place] [address] OFFICE VISIT Date of Service: 10/21/17 MR#: [id number] Acct: [id number] Name: EVERETT IYER Rep #: [id number] : 1945 Provider: Mackenzie Wallace Age/Sex: 72/M Location: [facility] Status: Signed Assessment AND Plan 1. MIKO (obstructive sleep apnea) G47.33 Status Chronic BiPAP 18/12 cm of water Plan Stable. The patient is using and benefiting from current BiPAP settings. No indication to repeat titration time. Follow-up with Dr. Clay in 3 months. Patient has been encouraged to contact the office if he develops any new or worsening symptoms in the meantime, he does convey understanding. 2. Pulmonary hypertension I27.20 Status Chronic Plan Stable. Continue to encourage his supplemental oxygen use as well as BiPAP use. No additional testing at this time. Follow-up with Dr. Clay in 3 months. 3. Chronic obstructive pulmonary disease, unspecified COPD type J44.9 Status Chronic FEV1 58% Plan Stable. No change in maintenance medications. 4. Asthma, unspecified asthma severity, unspecified whether complicated, unspecified whether persistent J45.909 Status Chronic Plan Deteriorated. Worsening wheezing and use of rescue inhaler. Added Singulair. He has been encouraged to contact the office and give us an update on how he has responded to this newly added medication. Follow-up with Dr. Clay in 3 months. No additional testing at this time. Plan Detail Other Medications New: Follow Up 3 Months (DMB) HPI HPI Comments Details: This is a 72 year old very pleasant m, currently under the care of Jack Verdugo, here to follow up after a recent hospitalization at [facility] transitional care unit, from August 28 - September 12, 2017 for acute on chronic diastolic heart failure, bilateral lower extremity leg cellulitis and acute on chronic hypoxic respiratory failure. The hospital stay was relatively uncomplicated. 11 pages of hospital documentation was reviewed, in addition to compliance report for his BiPAP. Settings are 18/12 cm of water. AHI is controlled at 0.1 events per hour when in use. Given his recent hospitalization and stay in the rehab facility his compliance is suboptimal. He does report that when at home he uses his BiPAP every night and even uses it sometimes during the day. He denies any difficulties with air leaks, or dry mouth. He does report feeling rested in the morning when using it. Upon discharge, the patient ordered Eliquis 5 mg twice daily and also encouraged to take Lasix 80 mg twice daily. Today, he presents the office in a wheelchair, wearing nasal cannula oxygen at 3 L/min continuous and accompanied by his daughter's boyfriend. He continues to experience shortness of breath but states that overall it has improved. He denies any chest tightness but does report occasional wheezing. He does report continued lower extremity edema but it also has improved. He also reports bilateral lower extremity ulcers that he admits is from his picking. He admits that it is a bad habit. When questioned if he is being seen in the wound center for these ulcers he reports that he is not allowed to go to the wound center as he was previously discharged. He is compliant with Advair twice daily. He admits that he does not always rinse his mouth out after each use. He denies any medication side effects such as sore throat or Thrush. He has a cough is occasionally productive of clear sputum, denies any hemoptysis. He denies any palpitations. He is currently using his albuterol HFA rescue inhaler 4 times daily. It does provide him with relief of his shortness of breath. He does report clear nasal drainage. See complete review of systems. 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 Is patient in pain?: Yes Allergies naphazoline HCl [From Naphcon] Allergy (Severe, Verified 10/21/17 12:39) affected his breathing amlodipine besylate [From Norvasc] Allergy (Verified 10/21/17 12:39) Other dextromethorphan Allergy (Verified 10/21/17 12:39) Other levofloxacin [From Levaquin] Adverse Reaction (Mild, Verified 10/21/17 12:39) made me hyperactive Medications Allopurinol [Zyloprim] 300 mg PO DAILY 03/30/17 [History Confirmed 10/21/17] Atorvastatin Calcium [Lipitor] 40 mg PO QHS 03/30/17 [History Confirmed 10/21/17] Clonidine Patch [Catapres-Tts3] 0.3 mg TOPICAL FR 03/30/17 [History Confirmed 10/21/17] Clopidogrel Bisulfate [Plavix] 75 mg PO DAILY 03/30/17 [History Confirmed 10/21/17] Ferrous Sulfate 325 mg PO DAILY@0800 03/30/17 [History Confirmed 10/21/17] Finasteride [Proscar] 5 mg PO DAILY 03/30/17 [History Confirmed 10/21/17] Glimepiride [Amaryl] 8 mg PO BREAKFAST 03/30/17 [History Confirmed 10/21/17] Hydroxyzine HCl 25 mg PO TID PRN 03/30/17 [History Confirmed 10/21/17] Insulin Glargine [Lantus SoloStar Pen] 30 units PO BID 03/30/17 [History Confirmed 10/21/17] Lansoprazole 15 mg PO DAILY 03/30/17 [History Confirmed 10/21/17] Losartan Potassium 100 mg PO DAILY 03/30/17 [History Confirmed 10/21/17] Magnesium Oxide [Mag-Ox 400] 800 mg PO BID 03/30/17 [History Confirmed 10/21/17] Metformin HCl [Glucophage] 500 mg PO TID 03/30/17 [History Confirmed 10/21/17] Metoprolol Tartrate [Lopressor (beta maryam)] 50 mg PO BID 03/30/17 [History Confirmed 10/21/17] Multivitamins,Therapeutic [Multivitamin] 1 tab PO DAILY@0800 03/30/17 [History Confirmed 10/21/17] Sertraline HCl [Zoloft] 50 mg PO QHS 03/30/17 [History Confirmed 10/21/17] Spironolactone 25 mg PO BID 03/30/17 [History Confirmed 10/21/17] Terazosin HCl [Hytrin] 10 mg PO QHS 03/30/17 [History Confirmed 10/21/17] albuterol sulfate HFA 90 mcg/actuation aerosol inhaler 2 puff PO Q6H PRN PRN #18 g 08/05/17 [Rx Confirmed 10/21/17] Fluticasone/Salmeterol [Advair 500-50 Diskus] 2 puff INHALATION Q12H 08/20/17 [History Confirmed 10/21/17] Sertraline HCl [Zoloft] 100 mg PO DAILY 08/20/17 [History Confirmed 10/21/17] Acetaminophen [Tylenol] 1,000 mg PO Q8H PRN PRN tab 09/08/17 [Rx Confirmed 10/21/17] Apixaban [Eliquis] 5 mg PO BID #60 tab 09/08/17 [Rx Confirmed 10/21/17] Furosemide [Lasix] 80 mg PO BID #60 tab 09/08/17 [Rx Confirmed 10/21/17] Nutritional Supplement [Candido - ORANGE FLAVOR] 1 packet PO BIDCM #60 packet 09/08/17 [Rx Confirmed 10/21/17] Nystatin Powder [Mycostatin Powder] 1 applic TOPICAL 0600,2200 bottle 09/08/17 [Rx Confirmed 10/21/17] Oxycodone [Oxyir] 5 mg PO Q4H PRN PRN #10 tab 09/08/17 [Rx Confirmed 10/21/17] Polyethylene Glycol 3350 [Miralax] 17 gm PO DAILY #30 packet 09/08/17 [Rx Confirmed 10/21/17] montelukast 10 mg tablet 10 mg PO QPM #30 tab 10/21/17 [Rx Confirmed 10/21/17] PFSH Medical History Thoracic aortic aneurysm without rupture (Chronic) Acute on chronic diastolic heart failure (Acute) Anemia (Chronic) Coronary artery disease (Chronic) Hyperlipidemia (Chronic) Super obesity (Chronic) Bilateral leg edema (Chronic) Diabetes mellitus with neuropathy (Chronic) Acute on chronic respiratory failure with hypoxia and hypercapnia (Acute) CKD (chronic kidney disease), stage II (Chronic) Wheezing (Chronic) Dyspnea (Acute) MIKO (obstructive sleep apnea) (Chronic) HTN (hypertension) (Chronic) Tobacco abuse (Resolved) BPH (benign prostatic hypertrophy) (Chronic) Tinea unguium (Chronic) Diabetes mellitus with neuropathy (Chronic) Edema of both legs (Acute) Lymphedema of leg (Chronic) Multiple excoriations (Chronic) Asthma (Chronic) COPD (chronic obstructive pulmonary disease) (Chronic) Arthritis (Chronic) Immobility (Chronic) Pulmonary embolism on right (Chronic) CAP (community acquired pneumonia) (Resolved) Adynamic ileus (Chronic) Ventral hernia (Chronic) Hypoglycemia (Chronic) Peripheral neuropathy (Chronic) Chronic anemia (Chronic) Benign prostatic hypertrophy without urinary obstruction (Chronic) CKD (chronic kidney disease), stage II (Chronic) CAD (coronary artery disease) (Chronic) Type II diabetes mellitus (Chronic) GERD (gastroesophageal reflux disease) (Chronic) Hypercholesteremia (Chronic) Morbid obesity (Chronic) Pulmonary hypertension (Chronic) Venous insufficiency (Chronic) CHF exacerbation (Resolved) Leg swelling (Inactive) Nausea and vomiting (Inactive) Tinea unguium (Inactive) Surgical History History of repair of thoracic aortic aneurysm (Chronic 12/11/09) H/O aortic valve replacement (Chronic 12/11/09) Family History Brother TBI (traumatic brain injury) Sister Ulcerative colitis Social History adopted: No household members: spouse housing: house current occupational status: retired current occupational exposures/hazards: No pets and animals: No history of recent travel: No Smoking Status: Former smoker second hand exposure: Yes alcohol intake: never substance use type: does not use FEV1% FEV1%: 58 Review of Systems Const CONSTITUTIONAL: Positive fatigue; negative anorexia, body ache, chills, daytime sleepiness, fever(s), night sweats, oral thrush, stops breathing during sleep, weight loss, sleeping in chair, weight loss, weight gain, frequent colds, seasonal allergies, other, headache(s) or orthopnea EETM Ear Nose Throat Mouth: Positive hearing normal, nasal discharge and post nasal drip; negative hard of hearing, hoarseness, dry mouth in morning, change in vision, itchy eyes, eye pain, swallowing Difficulty, ear pain, nose bleed, headache(s), mouth pain, nasal congestion, sinus pain, sinus pressure, sore throat or other Cardio Cardiovascular: Positive edema Location: lower extremity; negative chest pain, chest pain at rest, chest pain with activity, irregular heart rhythm, shortness of breath when lying down, palpitations, murmur or other Resp Respiratory: Positive as per HPI, shortness of breath, wheezing and cough cough: Positive productive color: Positive clear; negative pain with cough, chest congestion, chest tightness, pain on inspiration, inhalers, increase use of rescue inhalers, snoring, apnea or other Gastro Gastrointestional: Negative bloody stools, change in appetite, difficulty swallowing, reflux, hematemesis, melena stool, loose stool, constipation or other Genitourinary: Negative blood in urine, nocturia, pain with urination or other Musc Musculoskeletal: Positive body pain; negative back pain, neck pain or other Skin/Breast Skin/Breast: Negative dry skin, itching, rash, unusual bruising, breast lump or other Neuro Neurological: Negative restless legs, confusion, weakness or other Psych Psychocological: Negative abnormal sleep pattern, anxiety, thoughts of hurting self/others, hopelessness or other Lymph Lymphatic: Negative easy bleeding, easy bruising, swollen lymph nodes or other Exam Const Constitutional: Positive conversant, cooperative, in no acute respiratory distress, well developed, well nourished, poor hygiene, obese, wearing supplemental oxygen and dyspenic Head Head: Positive normocephalic and atraumatic; negative cyanosis of lips/distal nose Eyes Eye: Positive clear conjunctiva and nystagmus; negative scleral abnormality Ears Ear: Positive hearing normal and external ears normal; negative hard of hearing Nose Nose: Positive external nose normal and no nasal discharge; negative epistaxis Mouth Mouth: Positive post nasal drip, crowded posterior oropharynx, no lesions and oral mucosae normal; negative oral thrush present or malodorous breath Mallampati Score: III: Mallampati Score Neck Neck: Positive normal visual inspection, full ROM, trachea midline, thick neck and male neck greater than 43 cm (17 in); negative lymphadenopathy, JVD or tender Chest Wall Chest: Positive normal inspection of the chest and symmetric chest movement; negative increased A/P diameter Resp lung sounds: Positive clear to auscultation, diminished, normal expiratory time and normal respiratory effort; negative wheezes, rhonchi, rales, dullness to percussion, wheeze present on forced exhalation or use of accessory muscles Cardio Cardiac: Positive regular rate, regular rhythm, S1 normal and S2 normal; negative murmur GI GI: Positive normal to inspection, normal bowel sounds and obese; negative distended Genitourinary: Positive deferred Musc Musculoskeletal: Positive ROM normal and in a wheelchair; negative kyphosis or scoliosis Skin Pulmonary Skin Exam: Positive lesion and intact; negative rash, ulcers, erythema, scaly or dermal atrophy Pulses Pulse: Yes pulses normal x4 extremities Extremities Extremities: Yes edema Location: lower extremity location: Bilateral pitting +2, Yes capillary refill normal, No clubbing, No cyanosis Neuro Neurologic: Yes conversant, Yes no focal neuro deficits, Yes cooperative, Yes normal cognition, Yes normal concentration, Yes normal coordination, Yes understands questions, No tremor Lymph Lymphatic: No lymphadenopathy, No tenderness, No cervical adenopathy, No axillary adenopathy Psych Appearance: Positive grossly normal, eye contact and well kempt Mental Status: Positive mental status grossly normal Mood: Positive congruent mood Affect: Positive normal affect Coding Level of Care Code Off vis,est,level 4 Diagnoses MIKO (obstructive sleep apnea) G47.33 Pulmonary hypertension I27.20 Chronic obstructive pulmonary disease, unspecified COPD type J44.9 Asthma, unspecified asthma severity, unspecified whether complicated, unspecified whether persistent J45.909 10/23/17 1539 <Electronically signed by Mackenzie CRAWFORD> Date Mackenzie CRAWFORD Cosigner Signature: Date (if applicable) CC: Jack Verdugo MD PROGRESS Observed: 10/09/2017 Status: COMPLETED Source: [place] 4:23 PM [facility] RE[facility] HNO ID: [id number] Author: Martina Villalobos) [place] Service: (none) Author Type: Nurse Practitioner Type: Progress Notes Filed: 10/09/2017 5:13 PM Note Text: This is a 72 year old male who presents today with: Patient presents with: Recheck HISTORY OF PRESENT ILLNESS: Everett Iyer is a 72 year old male. Patient presents with: Recheck Pt presents today for short interval follow-up. He was seen two weeks ago. Doing okay. Breathing is about the same. Did follow-up with cardiology. Hasn't followed up with pulm yet. He is wearing home O2 at 3 L via NC. He states he is wearing his cpap at night. He reports breathing is about the same. He is using the advair once daily -- did instruct that he can use twice daily. The ventolin use is from 0-4 times daily. Refers edema is about the same. Visiting nurse comes three times weekly and wraps legs. Had done today. He continues to not add salt to things, but does eat processed foods. He does try to prop legs. Last 2 Encounter Wt Readings: Date: Wt: 10/09/2017 170.1 kg (375 lb 1.3 oz) 09/22/2017 172.2 kg (379 lb 9.6 oz) REVIEW OF SYSTEMS GENERAL: No weight loss, malaise or fevers/chills HEENT: Negative for frequent or significant headaches, No changes in hearing or vision. RESPIRATORY: + cough. + wheezing, + dyspnea or shortness of breath. + home O2. CARDIOVASCULAR: Negative for chest pain or palpitations. + leg edema. + orthopnea. GI: No nausea, vomiting, or diarrhea. Some constipation, but not uncontrolled. No hematochezia/melena. Occ heartburn, for which he uses prevacid. : No history of dysuria, frequency or incontinence SKIN: Continues to pick at the scabs on his legs. ENDOCRINE: Negative for cold or heat intolerance, polyuria, polydipsia and goiter NEURO: No history of headaches, syncope, paralysis, seizures or tremors PAST MEDICAL HISTORY: PAST MEDICAL HISTORY Diagnosis Date - A-fib 12/13/2009 - Ascending aortic aneurysm (HCC) 05/10/2010 - CVA (cerebral vascular accident) ([facility]) 09/09/2010 Right thalamic stroke. - Esophageal reflux - Gout, unspecified - Hypertension - Hypertrophy of prostate with urinary obstruction and other lower urinary tract symptoms (LUTS) 03/06/2005 - Ileus (HCC) 12/13/2009 - Obesity, unspecified - MIKO (obstructive sleep apnea) 01/24/2016 - Osteoarthritis of knee 08/14/2009 Dr. Tee. - Other and unspecified hyperlipidemia - Other ventral hernia without mention of obstruction or gangrene chronic - Sepsis(995.91) 01/12/2010 - Status post aortic valve replacement with prosthetic valve 12/11/2009 - Temporomandibular joint disorders, unspecified 1960 left side - Thoracic aneurysm without mention of rupture 08/07/2006 Paras Paulino MD. [facility]. aortic root-6.1x6.8cm; ascending 4.5cm - Type II or unspecified type diabetes mellitus without mention of complication, uncontrolled - Unspecified asthma(493.90) PAST SURGICAL HISTORY Procedure Laterality Date - ASCENDING AORTIC GRAFT 12/11/2009 - COLONOSCOP W/ OR W/O [facility] SPE[facility] 12/17/2004 Colonoscopy - COLONOSCOP W/ OR W/O [facility] 01/03/15 Colonoscopy outpt [facility] incomplete/ba enema done - CYSTO.PANENDO 06/11/2007 Cystoscopy - MIDLINE INSERTION/CONSULT 12/03/2013 - PAST SURGICAL HISTORY OF 05/2006 Left leg hematoma removed-Dr. Garcia - REP INIT INCI/VENTRAL HERNIA REDUCIBLE 11/30/2013 Lysis adhesions, - S VALVE,AORTIC,FREESTYLE,FR995 12/11/2009 ALLERGIES Levaquin [Levofloxacin]; Naldecon Senior Dx [Dextromethorphan-Guaifenesin]; Norvasc [Amlodipine Besylate] MEDICATIONS Current Outpatient Prescriptions: polyethylene glycol 3350 (MIRALAX, GLYCOLAX) 17 gram packet use 1 (ONE) PACKET daily DIRECTED furosemide (LASIX) 80 mg tablet TAKE 1 TABLET TWICE DAILY for water pill ELIQUIS 5 mg tab(s) TAKE 1 TABLET TWICE DAILY for heart ONETOUCH ULTRA BLUE TEST STRIP test strip Check 4x times a day. Dx: E11.65. On insulin. Hypoglycemia. allopurinol (ZYLOPRIM) 300 mg tablet TAKE 1 TABLET EVERY DAY for FOR GOUT Nutritional Supplements (CANDIDO) pack Take 237 mL by mouth twice daily. apixaban (ELIQUIS) 5 mg tab(s) Take 1 tablet by mouth twice daily. insulin glargine (LANTUS SOLOSTAR U-100 INSULIN) 100 unit/mL (3 mL) inpn Inject 30 Units subcutaneously twice daily. metFORMIN (GLUCOPHAGE) 500 mg tablet Take 1 tablet by mouth three times daily with meals. loratadine (CLARITIN) 10 mg tablet Take 10 mg by mouth once daily. COMPOUNDED PRESCRIPTION Take 2 tablets by mouth once daily. Mucus relief PE albuterol HFA (VENTOLIN HFA) 90 mcg/actuation inhaler Inhale 2 Puffs as instructed every 4 hours as needed for Wheezing/Shortness of Breath. OLANZapine (ZYPREXA) 2.5 mg tablet Take 1 tablet by mouth daily at bedtime. clopidogrel (PLAVIX) 75 mg tablet Take 1 tablet by mouth once daily. spironolactone (ALDACTONE) 25 mg tablet TAKE 1 TABLET TWICE DAILY atorvastatin (LIPITOR) 80 mg tablet Take 0.5 tablets by mouth once daily. metoprolol tartrate, short acting, (LOPRESSOR) 50 mg tablet Take 1 tablet by mouth twice daily. losartan (COZAAR) 100 mg tablet TAKE 1 TABLET BY MOUTH EVERY DAY sertraline (ZOLOFT) 50 mg tablet Take 1 tablet by mouth every evening. In addition to 100 mg daily. sertraline (ZOLOFT) 100 mg tablet Take 1 tablet by mouth once daily. fluticasone-salmeterol (ADVAIR DISKUS) 250-50 mcg/dose dsdv Inhale 1 Puff as instructed twice daily. Rinse and gargle mouth after use with water. Per Dr. Memo Clay. hydrOXYzine HCl (ATARAX) 25 mg tablet TAKE 1 TABLET BY MOUTH THREE TIMES DAILY for nervous itching/scratching cloNIDine TTS (CATAPRES-TTS) 0.3 mg/24 hr Apply 1 Patch as directed once each week. glimepiride (AMARYL) 4 mg tablet Take 2 tablets by mouth daily with breakfast. lansoprazole (PREVACID) 15 mg capsule Take 1 capsule by mouth once daily. Lancets ([employer] ULTRASOFT LANCETS) lancets Use four times a day Dx: E11.65 insulin needles, DISPOSABLE, (BD INSULIN PEN NEEDLE UF) 31 gauge x 5/16 ndle 1 Each once daily. Dx: 250.00 Insulin: yes magnesium oxide (MAG-OX) 400 mg tablet Take 2 tablets by mouth twice daily. ipratropium-albuterol (DUONEB) 0.5 mg-3 mg(2.5 mg base)/3 mL nebu Inhale 3 mL as instructed every 4 hours as needed (wheezing). Use over 5-15minutes per nebulizer. acetaminophen (TYLENOL EXTRA STRENGTH) 500 mg tablet Take 2 tablets by mouth every 6 hours as needed for Pain (Patient takes 2x/day). Terazosin HCl (HYTRIN) 10 mg capsule Take 1 capsule by mouth daily at bedtime. finasteride (PROSCAR) 5 mg tablet Take 1 tablet by mouth once daily. Ferrous Sulfate 325 mg (65 mg iron) tablet Take 1 tablet by mouth once daily. alcohol antiseptic pads(ALCOHOL PREP PADS) use as directed COMPRESSION STOCKING,KNEE HIGH,LONG LENGTH,X-LARGE Sig Varis compression stockings. 30-40 mm Hg- size X2 - open toe. Beige. COLACE 100 MG CAP Take one(1) tablet two(2) times daily. MULTIVITAMIN TAB Take one(1) tablet daily. No current facility-administered medications for this visit. FAMILY HISTORY Problem Relation Age of Onset - Hypertension Mother - Genitourinary () Mother age 84, renal failure - Prostate Cancer Father age 94 - GI Sister ulcerative colitis, ileostomy Social History Marital status: Spouse name: sahil Years of education: Number of children: 1 Occupational History Occupation Employer Comment retired [employer] Social History Main Topics Smoking status: Former Smoker Packs/day: 0.00 Years: 0.00 Quit date: 05/25/1966 Smokeless tobacco: Never Used Alcohol use: No Comment: rare mixed drink Social History Narrative Lives with . Ambulatory with walker or 2 canes. Morbid obesity. EXAM: BP 110/56 (BP Site: Right Arm, BP Position: Sitting, BP Cuff Size: Large Adult) Pulse 80 Resp 12 O2 Sat 95% on 3L. PHYSICAL EXAM: General Appearance: Well appearing, alert, in no acute distress, well-hydrated, well nourished.. Skin: Skin color, texture, turgor normal, no suspicious rashes or lesions. Head: Normocephalic, no masses, lesions, tenderness or abnormalities. Eyes: Anicteric sclera. Extraocular movements are intact. . Lungs: Lungs clear to auscultation. No wheezing, rhonchi, rales. Heart: RRR without murmur, gallop, or rubs. No ectopy. Abdomen: Abdomen obese, soft, non-tender. Bowel sounds normal. No masses, organomegaly. Extremities: mike wraps intact to BLE. +2-+3 pitting edema. ASSESSMENT/PLAN: 1. Chronic obstructive pulmonary disease, unspecified COPD type (HCC) - ICD9: 496, ICD10: J44.9 (primary diagnosis) Stable. Medications reviewed. Encouraged to follow-up with pulm. 2. Acute congestive heart failure, unspecified heart failure type (HCC) - ICD9: 428.0, ICD10: I50.9 Weight down a couple of pounds in the last two weeks. Stable. Continue to monitor. Avoid sodium/hidden sodium. 3. Hypertension goal BP (blood pressure) < 150/90 - ICD9: 401.9, ICD10: I10 - good control - Continue current medication(s) 4. Lymphedema of both lower extremities - ICD9: 457.1, ICD10: I89.0 Continue mike-wraps via visiting nursing. Prop legs. Watch sodium/hidden sodium. 5. Gastroesophageal reflux disease, esophagitis presence not specified - ICD9: 530.81, ICD10: K21.9 - Essentially controlled. - uses prevacid prn. Discussed treatment plan and patient voices understanding. Patient's questions answered appropriately. Medications and potential side effects were discussed and patient voices understanding. Has appt in a few weeks with Dr. Verdugo. Discussed to call with any problems/concerns prior to that. Return to the office as scheduled or as needed for worsening/no improvement. Martina Arias APRN.CNP CNOV Observed: 10/09/2017 Status: COMPLETED Source: [place] 4:00 PM [facility] REPOSITORY Office Visit (FAMPWS) EVERETT IYER ([id number]) 1945 M Date Time Provider Department 10/09/17 4:00 PM MARTINA ARIAS ([facility]) FAMPWS During your visit today, we recorded the following information about you: Pulse Respiration Blood pressure Weight 80/minute 12/minute 110/56 170.1 kg Martina Arias APRN.CNP 10/09/2017 5:13 PM Signed This is a 72 year old male who presents today with: Patient presents with: Recheck HISTORY OF PRESENT ILLNESS: Everett Iyer is a 72 year old male. Patient presents with: Recheck Pt presents today for short interval follow-up. He was seen two weeks ago. Doing okay. Breathing is about the same. Did follow-up with cardiology. Hasn't followed up with pulm yet. He is wearing home O2 at 3 L via NC. He states he is wearing his cpap at night. He reports breathing is about the same. He is using the advair once daily -- did instruct that he can use twice daily. The ventolin use is from 0-4 times daily. Refers edema is about the same. Visiting nurse comes three times weekly and wraps legs. Had done today. He continues to not add salt to things, but does eat processed foods. He does try to prop legs. Last 2 Encounter Wt Readings: Date: Wt: 10/09/2017 170.1 kg (375 lb 1.3 oz) 09/22/2017 172.2 kg (379 lb 9.6 oz) REVIEW OF SYSTEMS GENERAL: No weight loss, malaise or fevers/chills HEENT: Negative for frequent or significant headaches, No changes in hearing or vision. RESPIRATORY: + cough. + wheezing, + dyspnea or shortness of breath. + home O2. CARDIOVASCULAR: Negative for chest pain or palpitations. + leg edema. + orthopnea. GI: No nausea, vomiting, or diarrhea. Some constipation, but not uncontrolled. No hematochezia/melena. Occ heartburn, for which he uses prevacid. : No history of dysuria, frequency or incontinence SKIN: Continues to pick at the scabs on his legs. ENDOCRINE: Negative for cold or heat intolerance, polyuria, polydipsia and goiter NEURO: No history of headaches, syncope, paralysis, seizures or tremors PAST MEDICAL HISTORY: PAST MEDICAL HISTORY Diagnosis Date - A-fib 12/13/2009 - Ascending aortic aneurysm (HCC) 05/10/2010 - CVA (cerebral vascular accident) (HCC) 09/09/2010 Right thalamic stroke. - Esophageal reflux - Gout, unspecified - Hypertension - Hypertrophy of prostate with urinary obstruction and other lower urinary tract symptoms (LUTS) 03/06/2005 - Ileus (HCC) 12/13/2009 - Obesity, unspecified - MIKO (obstructive sleep apnea) 01/24/2016 - Osteoarthritis of knee 08/14/2009 Dr. Tee. - Other and unspecified hyperlipidemia - Other ventral hernia without mention of obstruction or gangrene chronic - Sepsis(995.91) 01/12/2010 - Status post aortic valve replacement with prosthetic valve 12/11/2009 - Temporomandibular joint disorders, unspecified 1960 left side - Thoracic aneurysm without mention of rupture 08/07/2006 Paras Paulino MD. [facility]. aortic root-6.1x6.8cm; ascending 4.5cm - Type II or unspecified type diabetes mellitus without mention of complication, uncontrolled - Unspecified asthma(493.90) PAST SURGICAL HISTORY Procedure Laterality Date - ASCENDING AORTIC GRAFT 12/11/2009 - COLONOSCOP W/ OR W/O [facility] 12/17/2004 Colonoscopy - COLONOSCOP W/ OR W/O [facility] 01/03/15 Colonoscopy outpt [facility] incomplete/ba enema done - [facility]STO.PANENDO 06/11/2007 Cystoscopy - MIDLINE INSERTION/CONSULT 12/03/2013 - PAST SURGICAL HISTORY OF 05/2006 Left leg hematoma removed-Dr. Garcia - REP INIT INCI/VENTRAL HERNIA REDUCIBLE 11/30/2013 Lysis adhesions, - S VALVE,AORTIC,FREESTYLE,FR995 12/11/2009 ALLERGIES Levaquin [Levofloxacin]; Naldecon Senior Dx [Dextromethorphan-Guaifenesin]; Norvasc [Amlodipine Besylate] MEDICATIONS Current Outpatient Prescriptions: polyethylene glycol 3350 (MIRALAX, GLYCOLAX) 17 gram packet use 1 (ONE) PACKET daily DIRECTED furosemide (LASIX) 80 mg tablet TAKE 1 TABLET TWICE DAILY for water pill ELIQUIS 5 mg tab(s) TAKE 1 TABLET TWICE DAILY for heart ONETOUCH ULTRA BLUE TEST STRIP test strip Check 4x times a day. Dx: E11.65. On insulin. Hypoglycemia. allopurinol (ZYLOPRIM) 300 mg tablet TAKE 1 TABLET EVERY DAY for FOR GOUT Nutritional Supplements (CANDIDO) pack Take 237 mL by mouth twice daily. apixaban (ELIQUIS) 5 mg tab(s) Take 1 tablet by mouth twice daily. insulin glargine (LANTUS SOLOSTAR U-100 INSULIN) 100 unit/mL (3 mL) inpn Inject 30 Units subcutaneously twice daily. metFORMIN (GLUCOPHAGE) 500 mg tablet Take 1 tablet by mouth three times daily with meals. loratadine (CLARITIN) 10 mg tablet Take 10 mg by mouth once daily. COMPOUNDED PRESCRIPTION Take 2 tablets by mouth once daily. Mucus relief PE albuterol HFA (VENTOLIN HFA) 90 mcg/actuation inhaler Inhale 2 Puffs as instructed every 4 hours as needed for Wheezing/Shortness of Breath. OLANZapine (ZYPREXA) 2.5 mg tablet Take 1 tablet by mouth daily at bedtime. clopidogrel (PLAVIX) 75 mg tablet Take 1 tablet by mouth once daily. spironolactone (ALDACTONE) 25 mg tablet TAKE 1 TABLET TWICE DAILY atorvastatin (LIPITOR) 80 mg tablet Take 0.5 tablets by mouth once daily. metoprolol tartrate, short acting, (LOPRESSOR) 50 mg tablet Take 1 tablet by mouth twice daily. losartan (COZAAR) 100 mg tablet TAKE 1 TABLET BY MOUTH EVERY DAY sertraline (ZOLOFT) 50 mg tablet Take 1 tablet by mouth every evening. In addition to 100 mg daily. sertraline (ZOLOFT) 100 mg tablet Take 1 tablet by mouth once daily. fluticasone-salmeterol (ADVAIR DISKUS) 250-50 mcg/dose dsdv Inhale 1 Puff as instructed twice daily. Rinse and gargle mouth after use with water. Per Dr. Memo Clay. hydrOXYzine HCl (ATARAX) 25 mg tablet TAKE 1 TABLET BY MOUTH THREE TIMES DAILY for nervous itching/scratching cloNIDine TTS (CATAPRES-TTS) 0.3 mg/24 hr Apply 1 Patch as directed once each week. glimepiride (AMARYL) 4 mg tablet Take 2 tablets by mouth daily with breakfast. lansoprazole (PREVACID) 15 mg capsule Take 1 capsule by mouth once daily. Lancets (ONETOUCH ULTRASOFT LANCETS) lancets Use four times a day Dx: E11.65 insulin needles, DISPOSABLE, (BD INSULIN PEN NEEDLE UF) 31 gauge x 5/16 ndle 1 Each once daily. Dx: 250.00 Insulin: yes magnesium oxide (MAG-OX) 400 mg tablet Take 2 tablets by mouth twice daily. ipratropium-albuterol (DUONEB) 0.5 mg-3 mg(2.5 mg base)/3 mL nebu Inhale 3 mL as instructed every 4 hours as needed (wheezing). Use over 5-15minutes per nebulizer. acetaminophen (TYLENOL EXTRA STRENGTH) 500 mg tablet Take 2 tablets by mouth every 6 hours as needed for Pain (Patient takes 2x/day). Terazosin HCl (HYTRIN) 10 mg capsule Take 1 capsule by mouth daily at bedtime. finasteride (PROSCAR) 5 mg tablet Take 1 tablet by mouth once daily. Ferrous Sulfate 325 mg (65 mg iron) tablet Take 1 tablet by mouth once daily. alcohol antiseptic pads(ALCOHOL PREP PADS) use as directed COMPRESSION STOCKING,KNEE HIGH,LONG LENGTH,X-LARGE Sig Varis compression stockings. 30-40 mm Hg- size X2 - open toe. Beige. COLACE 100 MG CAP Take one(1) tablet two(2) times daily. MULTIVITAMIN TAB Take one(1) tablet daily. No current facility-administered medications for this visit. FAMILY HISTORY Problem Relation Age of Onset - Hypertension Mother - Genitourinary () Mother age 84, renal failure - Prostate Cancer Father age 94 - GI Sister ulcerative colitis, ileostomy Social History Marital status: Spouse name: sahil Years of education: Number of children: 1 Occupational History Occupation Employer Comment retired [employer] Social History Main Topics Smoking status: Former Smoker Packs/day: 0.00 Years: 0.00 Quit date: 05/25/1966 Smokeless tobacco: Never Used Alcohol use: No Comment: rare mixed drink Social History Narrative Lives with . Ambulatory with walker or 2 canes. Morbid obesity. EXAM: BP 110/56 (BP Site: Right Arm, BP Position: Sitting, BP Cuff Size: Large Adult) Pulse 80 Resp 12 O2 Sat 95% on 3L. PHYSICAL EXAM: General Appearance: Well appearing, alert, in no acute distress, well-hydrated, well nourished.. Skin: Skin color, texture, turgor normal, no suspicious rashes or lesions. Head: Normocephalic, no masses, lesions, tenderness or abnormalities. Eyes: Anicteric sclera. Extraocular movements are intact. . Lungs: Lungs clear to auscultation. No wheezing, rhonchi, rales. Heart: RRR without murmur, gallop, or rubs. No ectopy. Abdomen: Abdomen obese, soft, non-tender. Bowel sounds normal. No masses, organomegaly. Extremities: mike wraps intact to BLE. +2-+3 pitting edema. ASSESSMENT/PLAN: 1. Chronic obstructive pulmonary disease, unspecified COPD type (HCC) - ICD9: 496, ICD10: J44.9 (primary diagnosis) Stable. Medications reviewed. Encouraged to follow-up with pulm. 2. Acute congestive heart failure, unspecified heart failure type (HCC) - ICD9: 428.0, ICD10: I50.9 Weight down a couple of pounds in the last two weeks. Stable. Continue to monitor. Avoid sodium/hidden sodium. 3. Hypertension goal BP (blood pressure) < 150/90 - ICD9: 401.9, ICD10: I10 - good control - Continue current medication(s) 4. Lymphedema of both lower extremities - ICD9: 457.1, ICD10: I89.0 Continue mike-wraps via visiting nursing. Prop legs. Watch sodium/hidden sodium. 5. Gastroesophageal reflux disease, esophagitis presence not specified - ICD9: 530.81, ICD10: K21.9 - Essentially controlled. - uses prevacid prn. Discussed treatment plan and patient voices understanding. Patient's questions answered appropriately. Medications and potential side effects were discussed and patient voices understanding. Has appt in a few weeks with Dr. Verdugo. Discussed to call with any problems/concerns prior to that. Return to the office as scheduled or as needed for worsening/no improvement. Martina Arias APRN.POWER SYSTEM ENGINEER Referring Provider: SELF [[id number]] Allergies As of Date: 10/09/2017 Noted Allergy Reaction LEVAQUIN (LEVOFLOXACIN) 05/13/2007 1 - Mental Status Change NALDECON SENIOR DX (DEXTROMETHORP*02/13/2005 5 - Intolerance NORVASC (AMLODIPINE BESYLATE) 02/13/2005 5 - Intolerance Date Reviewed: 10/09/2017 Reviewed by: Kalie Morelos Screw Down - Fully Assessed Reason for Visit: Recheck [92] Primary Visit Diagnosis:Chronic obstructive pulmonary disease, unspecified COPD type (HCC) [J44.9] Other Visit Diagnoses:Acute congestive heart failure, unspecified heart failure type (HCC) [I50.9] Hypertension goal BP (blood pressure) < 150/90 [I10] Lymphedema of both lower extremities [I89.0] Gastroesophageal reflux disease, esophagitis presence not specified [K21.9] Prescriptions as of 10/09/2017 Sig: POLYETHYLENE GLYCOL 3350 17 G* use 1 (ONE) PACKET daily D* FUROSEMIDE 80 MG TABLET TAKE 1 TABLET TWICE DAILY for* ELIQUIS 5 MG TABLET TAKE 1 TABLET TWICE DAILY for* ONETOUCH ULTRA BLUE TEST STRIP Check 4x times a day. Dx: E11* ALLOPURINOL 300 MG TABLET TAKE 1 TABLET EVERY DAY for F* NUTRITIONAL SUPPLEMENTS ORAL * Take 237 mL by mouth twice da* APIXABAN 5 MG TABLET Take 1 tablet by mouth twice * INSULIN GLARGINE (U-100) 100 * Inject 30 Units subcutaneousl* METFORMIN 500 MG TABLET Take 1 tablet by mouth three * LORATADINE 10 MG TABLET Take 10 mg by mouth once sunny* COMPOUNDED PRESCRIPTION Take 2 tablets by mouth once * ALBUTEROL SULFATE HFA 90 MCG/* Inhale 2 Puffs as instructed * OLANZAPINE 2.5 MG TABLET Take 1 tablet by mouth daily * CLOPIDOGREL 75 MG TABLET Take 1 tablet by mouth once d* SPIRONOLACTONE 25 MG TABLET TAKE 1 TABLET TWICE DAILY ATORVASTATIN 80 MG TABLET Take 0.5 tablets by mouth onc* METOPROLOL TARTRATE 50 MG TAB* Take 1 tablet by mouth twice * LOSARTAN 100 MG TABLET TAKE 1 TABLET BY MOUTH EVERY * SERTRALINE 50 MG TABLET Take 1 tablet by mouth every * SERTRALINE 100 MG TABLET Take 1 tablet by mouth once d* FLUTICASONE 250 MCG-SALMETERO* Inhale 1 Puff as instructed t* HYDROXYZINE HCL 25 MG TABLET TAKE 1 TABLET BY MOUTH THREE * CLONIDINE 0.3 MG/24 HR WEEKLY* Apply 1 Patch as directed onc* GLIMEPIRIDE 4 MG TABLET Take 2 tablets by mouth daily* LANSOPRAZOLE 15 MG CAPSULE,DE* Take 1 capsule by mouth once * LANCETS Use four times a day Dx: E1* PEN NEEDLE, DIABETIC 31 GAUGE* 1 Each once daily. Dx: 250.00* MAGNESIUM OXIDE 400 MG TABLET Take 2 tablets by mouth twice* IPRATROPIUM-ALBUTEROL 0.5 MG-* Inhale 3 mL as instructed lucille* ACETAMINOPHEN 500 MG TABLET Take 2 tablets by mouth every* TERAZOSIN 10 MG CAPSULE Take 1 capsule by mouth daily* FINASTERIDE 5 MG TABLET Take 1 tablet by mouth once d* FERROUS SULFATE 325 MG (65 MG* Take 1 tablet by mouth once d* ALCOHOL PREP PADS use as directed COMPRESSION STOCKING,KNEE HIG* Sig Varis compression stockin* COLACE 100 MG CAPSULE Take one(1) tablet two(2) tasha* MULTIVITAMIN TABLET Take one(1) tablet daily. Problem List As Of Date 10/09/2017 Noted Resolved Unspecified Essential Hypertension [I10] INVALID FOR*12/12/2009 Esophageal Reflux [K21.9] 12/12/2009 Asthma [J45.909] Hypertension goal BP (blood pressure) < 150/90 * Other and Unspecified Hyperlipidemia [E78.5] 01/10/2010 Priority: A More... DM w/o Complication Type II [E11.9] 12/13/2009 Priority: E Gout, unspecified [M10.9] Obesity, Class III, BMI 40-49.9 (morbid obesity* Priority: I BPH W URINARY OBS/LUTS [N40.1] INVALID FOR* OPEN WOUND KNEE/LEG-COMPL [S81.009A, S81.809A, *INVALID FOR*08/21/2008 Lymphedema of both lower extremities [I89.0] INVALID FOR* Thoracic Aneurysm without Mention of Rupture [I*INVALID FOR*12/13/2009 Priority: A More... ASCVD [I25.10] INVALID FOR* More... Osteoarthritis of knee [M17.10] INVALID FOR* More... GERD [K21.9] More... More... More... More... Atelectasis/pleural effusion [J98.11] INVALID FOR*01/10/2010 Priority: C More... DM type 2, uncontrolled, with neuropathy (HCC) *INVALID FOR* More... CAD (mild per cath) [I25.10] INVALID FOR*03/22/2010 Priority: A More... Oliguria [R34] INVALID FOR*12/13/2009 Priority: C More... Acute Renal Insufficiency [N28.9] INVALID FOR*12/27/2009 Priority: C More... More... A-fib (HCC) [I48.91] INVALID FOR*03/02/2014 ARF (Acute Renal Failure) [N17.9] INVALID FOR*12/18/2009 More... Respiratory Failure, Acute [J96.00] INVALID FOR*12/18/2009 Priority: B More... Leukocytosis [D72.829] INVALID FOR*12/27/2009 Priority: D More... Hypernatremia [E87.0] INVALID FOR*12/27/2009 Priority: C More... H/o Pericardial Effusion (moderate on d/c) [I3*INVALID FOR*01/16/2010 Priority: A More... More... Anemia [D64.9] INVALID FOR*01/10/2010 Priority: B More... More... H/o Fever (upon admission) [R50.9] INVALID FOR*01/12/2010 Priority: C More... Malnutrition [E46] INVALID FOR*01/10/2010 More... Hyperlipidemia with target LDL less than 70 [E7*INVALID FOR* Pleural Effusion/atelectasis [J90] INVALID FOR*04/05/2013 Priority: B More... Gout [M10.9] INVALID FOR*03/22/2010 Priority: D More... Sepsis [A41.9] INVALID FOR*03/22/2010 Priority: C More... Hypokalemia [E87.6] INVALID FOR*03/22/2010 Priority: C More... Renal insufficiency [N28.9] INVALID FOR*03/22/2010 Priority: C More... Ascending aortic aneurysm [I71.2] INVALID FOR*04/05/2013 Dilated aortic root [I77.810] INVALID FOR*04/05/2013 Anemia [D64.9] INVALID FOR* CKD (chronic kidney disease) stage 3, GFR 30-59*INVALID FOR* COPD (chronic obstructive pulmonary disease) [J*INVALID FOR* Status post aortic valve replacement with prost*INVALID FOR* CVA (cerebral vascular accident) (HCC) [I63.9] INVALID FOR*03/02/2014 More... Stasis leg ulcer (HCC) [I83.009, L97.909] INVALID FOR* Pruritic disorder [L29.9] INVALID FOR* MIKO (obstructive sleep apnea) [G47.33] INVALID FOR* Pulmonary embolus (HCC) [I26.99] INVALID FOR* Obsessive-compulsive disorder [F42.9] INVALID FOR* Acute congestive heart failure (HCC) [I50.9] INVALID FOR* Disposition: Return if symptoms worsen or fail to improve. Follow-up and Disposition History Recorded Encounter Status:Closed by MARTINA ARIAS CNP on 10/09/17 CARDIOLOGY VISIT Observed: 09/30/2017 Status: F Source: [facility] REPORT 4:44 PM [facility] REPOSITORY [facility] [address] [place], [place] [address]carrie. [address] [place] [address] OFFICE VISIT Date of Service: 09/30/17 MR#: [id number] Acct: [id number] Name: EVERETT IYER Rep #: [id number] : 1945 Provider: Danny Raymundo MD Age/Sex: 72/M Location: [facility] Status: Signed HPI HPI Chief Complaint: Posthospitalization visit. Details: EVERETT IYER, is a 72 M who presents to the office today for a posthospitalization follow-up visit. 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 This was performed in 2009. He was recently admitted to the hospital in July of this year with marked shortness of breath pedal edema and required BiPAP as well as intravenous Lasix. He diuresed aggressively while on the telemetry unit. Was diagnosed as having congestive heart failure which was secondary to diastolic dysfunction and echocardiogram was performed with demonstrated preserved ejection fraction of 60%. Since discharge he has been doing well denying any chest pain no more shortness of breath and no paroxysmal nocturnal dyspnea. He continues to have stasis dermatitis as well as his bandaged his legs. He has not had any neck arm or jaw discomfort suggest angina. His physical exam today demonstrates clear lung berkowitz regular rate and rhythm prosthetic heart sounds and chronic pedal edema. Intake Vital Signs09/30/17 Height 5 ft 8 in 09/30/17 Weight: 370 lb Intake Visit Reasons: DC PCU 4-2 AND TCU 4-18 (NEW to [facility]) Allergies naphazoline HCl [From Naphcon] Allergy (Severe, Verified 09/30/17 15:53) affected his breathing amlodipine besylate [From Norvasc] Allergy (Verified 09/30/17 15:53) Other dextromethorphan Allergy (Verified 09/30/17 15:53) Other levofloxacin [From Levaquin] Adverse Reaction (Mild, Verified 09/30/17 15:53) made me hyperactive Medications Allopurinol [Zyloprim] 300 mg PO DAILY 03/30/17 [History Confirmed 09/08/17] Atorvastatin Calcium [Lipitor] 40 mg PO QHS 03/30/17 [History Confirmed 09/08/17] Clonidine Patch [Catapres-Tts3] 0.3 mg TOPICAL FR 03/30/17 [History Confirmed 09/08/17] Clopidogrel Bisulfate [Plavix] 75 mg PO DAILY 03/30/17 [History Confirmed 09/08/17] Ferrous Sulfate 325 mg PO DAILY@0800 03/30/17 [History Confirmed 09/08/17] Finasteride [Proscar] 5 mg PO DAILY 03/30/17 [History Confirmed 09/08/17] Glimepiride [Amaryl] 8 mg PO BREAKFAST 03/30/17 [History Confirmed 09/08/17] Hydroxyzine HCl 25 mg PO TID PRN 03/30/17 [History Confirmed 09/08/17] Insulin Glargine [Lantus SoloStar Pen] 30 units PO BID 03/30/17 [History Confirmed 09/08/17] Lansoprazole 15 mg PO DAILY 03/30/17 [History Confirmed 09/08/17] Losartan Potassium 100 mg PO DAILY 03/30/17 [History Confirmed 09/08/17] Magnesium Oxide [Mag-Ox 400] 800 mg PO BID 03/30/17 [History Confirmed 09/08/17] Metformin HCl [Glucophage] 500 mg PO TID 03/30/17 [History Confirmed 09/08/17] Metoprolol Tartrate [Lopressor (beta maryam)] 50 mg PO BID 03/30/17 [History Confirmed 09/08/17] Multivitamins,Therapeutic [Multivitamin] 1 tab PO DAILY@0800 03/30/17 [History Confirmed 09/08/17] Sertraline HCl [Zoloft] 50 mg PO QHS 03/30/17 [History Confirmed 09/08/17] Spironolactone 25 mg PO BID 03/30/17 [History Confirmed 09/08/17] Terazosin HCl [Hytrin] 10 mg PO QHS 03/30/17 [History Confirmed 09/08/17] albuterol sulfate HFA 90 mcg/actuation aerosol inhaler 2 puff PO Q6H PRN PRN #18 g 08/05/17 [Rx Confirmed 09/08/17] Fluticasone/Salmeterol [Advair 500-50 Diskus] 2 puff INHALATION Q12H 08/20/17 [History Confirmed 09/08/17] Sertraline HCl [Zoloft] 100 mg PO DAILY 08/20/17 [History Confirmed 09/08/17] Acetaminophen [Tylenol] 1,000 mg PO Q8H PRN PRN tab 09/08/17 [Rx] Apixaban [Eliquis] 5 mg PO BID #60 tab 09/08/17 [Rx] Furosemide [Lasix] 80 mg PO BID #60 tab 09/08/17 [Rx] Nutritional Supplement [Candido - ORANGE FLAVOR] 1 packet PO BIDCM #60 packet 09/08/17 [Rx] Nystatin Powder [Mycostatin Powder] 1 applic TOPICAL 0600,2200 bottle 09/08/17 [Rx] Oxycodone [Oxyir] 5 mg PO Q4H PRN PRN #10 tab 09/08/17 [Rx] Polyethylene Glycol 3350 [Miralax] 17 gm PO DAILY #30 packet 09/08/17 [Rx] Ejection fraction %: 60 to 64 PFSH Medical History Thoracic aortic aneurysm without rupture (Chronic) Acute on chronic diastolic heart failure (Acute) Anemia (Chronic) Coronary artery disease (Chronic) Hyperlipidemia (Chronic) Super obesity (Chronic) Bilateral leg edema (Chronic) Diabetes mellitus with neuropathy (Chronic) Acute on chronic respiratory failure with hypoxia and hypercapnia (Acute) CKD (chronic kidney disease), stage II (Chronic) Wheezing (Chronic) Dyspnea (Acute) MIKO (obstructive sleep apnea) (Chronic) HTN (hypertension) (Chronic) Tobacco abuse (Resolved) BPH (benign prostatic hypertrophy) (Chronic) Tinea unguium (Chronic) Diabetes mellitus with neuropathy (Chronic) Edema of both legs (Acute) Lymphedema of leg (Chronic) Multiple excoriations (Chronic) Asthma (Chronic) COPD (chronic obstructive pulmonary disease) (Chronic) Arthritis (Chronic) Immobility (Chronic) Pulmonary embolism on right (Chronic) CAP (community acquired pneumonia) (Resolved) Adynamic ileus (Chronic) Ventral hernia (Chronic) Hypoglycemia (Chronic) Peripheral neuropathy (Chronic) Chronic anemia (Chronic) Benign prostatic hypertrophy without urinary obstruction (Chronic) CKD (chronic kidney disease), stage II (Chronic) CAD (coronary artery disease) (Chronic) Type II diabetes mellitus (Chronic) GERD (gastroesophageal reflux disease) (Chronic) Hypercholesteremia (Chronic) Morbid obesity (Chronic) Pulmonary hypertension (Chronic) Venous insufficiency (Chronic) CHF exacerbation (Resolved) Leg swelling (Inactive) Nausea and vomiting (Inactive) Tinea unguium (Inactive) Surgical History History of repair of thoracic aortic aneurysm (Chronic 12/11/09) H/O aortic valve replacement (Chronic 12/11/09) Family History Brother TBI (traumatic brain injury) Sister Ulcerative colitis Social History adopted: No household members: spouse housing: house current occupational status: retired current occupational exposures/hazards: No pets and animals: No history of recent travel: No Smoking Status: Former smoker second hand exposure: Yes alcohol intake: never substance use type: does not use ROS Const Const: Positive for weakness and other (little or no ambulation); negative for fatigue, difficulty sleeping, frequent falls, headache(s) or excessive sweating Eyes Eyes: Negative for loss of peripheral vision, transient loss of vision, blurry vision or double vision ENT ENT: Negative for headache(s), dizziness, Nosebleed/epistaxis or balance problems Cardio Chest Pain: No Edema: Bilateral (BLE and pedal edema mike wraps in place) Muscle aches with walking: None Resp Respiratory: Positive for SOB with activity, SOB at rest, Cough and other (sleeps in a chair); negative for SOB orthopnea\SOB lying down or paroxysmal nocturnal dyspnea Additional Details: CPAP at bedtime, continuos O2 at 3L. Diminished breath sounds GI GI: Negative nausea or heartburn : Negative for hematuria Musc Musc: Positive for muscle weakness; negative for muscle aches/ myalgia, joint pain or balance problems Skin Skin: Negative non-healing lesions, unusual bruising or rash Neuro Neuro: Positive for weakness; negative for frequent falls, blurry vision, headache(s), dizziness, lightheadedness, orthostatic symptoms or double vision Mike Hematologic/Lymphatic: Negative for easy bruising Endo Endo: Negative for fatigue, excessive sweating or increased thirst/drinking Psych Psych: Negative for anxiety or depression Allergy Allergy/Immunology: Negative for hives, Negative for rash Cardiology Exam Const Appearance: cooperative, healthy appearing, well developed, well groomed and no acute distress Nutritional Appearance: well nourished and average body habitus Orientation: alert, awake and oriented x3 Head Head: normal to inspection, normocephalic and atraumatic Ears: hearing grossly normal bilaterally and external ears normal Nose: external nose normal, nasal mucous membranes and turbinates normal, nares normal, septum normal, no nasal discharge Face and Sinus: face symmetric Mouth: oral mucosae normal, tongue normal, oropharynx normal and moist mucous membranes Teeth and gingiva: dentition normal Throat: posterior oropharynx normal, tonsils normal and uvula midline Eyes General: appearance normal, both eyes and all related structures Eyelids: eyelids normal Conjunctivae: conjunctivae normal Pupils: PERRL, normal by confrontation and accommodation normal EOM: EOM intact bilaterally Neck Neck: normal visual inspection, trachea midline and no JVD JVD: +5 Carotids: normal carotid upstroke and bounding pulses Chest Chest inspection: normal inspection of the chest, symmetric chest movement and normal respiratory effort Auscultation: Bilateral: Clear to Auscultation Cardio Palpation: normal PMI Rate: regular rate Rhythm: regular rhythm Heart sounds: S1 normal and diminished P2 Murmur: Grade 1/6, soft and early systolic GI GI: normal to inspection, soft, no hepatosplenomegaly and bowel sounds present Neuro General: alert, awake, oriented x3, no focal sensory deficit, gait normal and moves all extremities Skin Skin: no rashes or lesions noted Extremities Pulses: Normal: Right Femoral Pulse, Left Femoral Pulse, Right Dorsalis Pedis Pulse, Left Dorsalis Pedis Pulse, Right Posterior Tibial Pulse, Left Posterior Tibial Pulse, Right Radial Pulse, Left Radial Pulse Lower Extremity Edema: None: Bilateral Musculoskel Musculoskeletal: No joint tenderness Psych Psychological: normal affect Assessment AND Plan 1. Acute on chronic diastolic heart failure I50.33 Plan Diastolic heart failure. He does have known preserved left ventricular systolic function noted on the echocardiogram recently. The plan will be to continue him on the ARB as well as the diuretics and the beta-maryam. He is also on clonidine as you know. Salt restriction has been emphasized as well as portion control. 2. H/O aortic valve replacement Z95.2 # 29 Freestyle valve Plan He does have an aortic valve replacement which is a composite valve. The last echocardiographic evaluation demonstrated stability of the above with adequate gradients though it was a difficult study. No changes will be made we will continue to monitor him closely. 3. Essential hypertension I10 Plan He does have a history of hypertension which is under good control at this time he will remain on the losartan and beta-maryam and clonidine as well as his diuretics and spironolactone. We will continue to monitor him closely to see how he does. 4. Thoracic aortic aneurysm without rupture I71.2 Plan He does have a history from the ascending and proximal arch aneurysm which was replaced with a Hemashield graft with shayan-arch repair. This will continue to be monitored through routine echocardiograms as well as appropriate CAT scans. 5. Super obesity E66.9 Plan Dietary modification risk factor modification have been emphasized. I have suggested to him that if he loses weight his risk for a cardiac event does go down. Thank you for allowing me to participate in the care of your patient. Please don't hesitate to call if any issues arise Plan Detail Follow Up 6 Months (jhr) Coding Level of Care Code Off vis,est,level 4 Diagnoses Acute on chronic diastolic heart failure I50.33 H/O aortic valve replacement Z95.2 Essential hypertension I10 Hypertension type: essential hypertension Thoracic aortic aneurysm without rupture I71.2 Super obesity E66.9 Coding Level of Care Code Off vis,est,level 4 Diagnoses Acute on chronic diastolic heart failure I50.33 H/O aortic valve replacement Z95.2 Essential hypertension I10 Hypertension type: essential hypertension Thoracic aortic aneurysm without rupture I71.2 Super obesity E66.9 09/30/17 1644 <Electronically signed by Danny Raymundo MD> Date Danny Raymundo MD Cosigner Signature: Date (if applicable) CC: Jack Verdugo MD PROGRESS Observed: 09/23/2017 Status: COMPLETED Source: [place] 12:26 PM [facility] REPOSITORY HNO ID: [id number] Author: Martina Arias Service: (none) Author Type: Nurse Practitioner Type: Progress Notes Filed: 09/23/2017 12:28 PM Note Text: Seen at office 09/23Antonino LOONEY Observed: 09/23/2017 Status: COMPLETED Source: [place] 12:00 AM [facility] REPOSITORY Patient Outreach ([facility]) EVERETT IYER ([id number]) 1945 M Date Time Provider Department 09/23/17 CAILIN CASTRO During your visit today, we recorded the following information about you: Cailin Morillo RN 02/15/2018 10:53 AM Signed PRIMARY CARE COORDINATION QUICK NOTE Provider Action/FYI None Patient identified by name and date . Unable to reach pt. LMOM Allergies As of Date: 09/23/2017 Noted Allergy Reaction LEVAQUIN (LEVOFLOXACIN) 05/13/2007 1 - Mental Status Change NALDECON SENIOR DX (DEXTROMETHORP*02/13/2005 5 - Intolerance NORVASC (AMLODIPINE BESYLATE) 02/13/2005 5 - Intolerance Date Reviewed: 09/22/2017 Reviewed by: Kalie Morelos Screw Down - Fully Assessed Reason for Visit: [facility] Follow Up [1772] Prescriptions as of 09/23/2017 Sig: OXYCODONE 5 MG CAPSULE Take 1 capsule by mouth every* NUTRITIONAL SUPPLEMENTS ORAL * Take 237 mL by mouth twice da* X FUROSEMIDE 80 MG TABLET Take 1 tablet by mouth twice * X POLYETHYLENE GLYCOL 3350 17 G* Take 17 g by mouth once daily. X APIXABAN 5 MG TABLET Take 1 tablet by mouth twice * APIXABAN 5 MG TABLET Take 1 tablet by mouth twice * X INSULIN GLARGINE (U-100) 100 * Inject 30 Units subcutaneousl* X FUROSEMIDE 80 MG TABLET Take 1 tablet by mouth twice * METFORMIN 500 MG TABLET Take 1 tablet by mouth three * LORATADINE 10 MG TABLET Take 10 mg by mouth once sunny* COMPOUNDED PRESCRIPTION Take 2 tablets by mouth once * ALBUTEROL SULFATE HFA 90 MCG/* Inhale 2 Puffs as instructed * X OLANZAPINE 2.5 MG TABLET Take 1 tablet by mouth daily * CLOPIDOGREL 75 MG TABLET Take 1 tablet by mouth once d* SPIRONOLACTONE 25 MG TABLET TAKE 1 TABLET TWICE DAILY ATORVASTATIN 80 MG TABLET Take 0.5 tablets by mouth onc* METOPROLOL TARTRATE 50 MG TAB* Take 1 tablet by mouth twice * LOSARTAN 100 MG TABLET TAKE 1 TABLET BY MOUTH EVERY * X SERTRALINE 50 MG TABLET Take 1 tablet by mouth every * X SERTRALINE 100 MG TABLET Take 1 tablet by mouth once d* X FLUTICASONE 250 MCG-SALMETERO* Inhale 1 Puff as instructed t* HYDROXYZINE HCL 25 MG TABLET TAKE 1 TABLET BY MOUTH THREE * X CLONIDINE 0.3 MG/24 HR WEEKLY* Apply 1 Patch as directed onc* X GLIMEPIRIDE 4 MG TABLET Take 2 tablets by mouth daily* X LANSOPRAZOLE 15 MG CAPSULE,DE* Take 1 capsule by mouth once * LANCETS Use four times a day Dx: E1* X ALLOPURINOL 300 MG TABLET Take 1 tablet by mouth once d* X BLOOD SUGAR DIAGNOSTIC STRIPS Check 4x times a day. Dx: E1* PEN NEEDLE, DIABETIC 31 GAUGE* 1 Each once daily. Dx: 250.00* MAGNESIUM OXIDE 400 MG (241.3* Take 2 tablets by mouth twice* IPRATROPIUM-ALBUTEROL 0.5 MG-* Inhale 3 mL as instructed lucille* ACETAMINOPHEN 500 MG TABLET Take 2 tablets by mouth every* X TERAZOSIN 10 MG CAPSULE Take 1 capsule by mouth daily* FINASTERIDE 5 MG TABLET Take 1 tablet by mouth once d* FERROUS SULFATE 325 MG (65 MG* Take 1 tablet by mouth once d* ALCOHOL PREP PADS use as directed X COMPRESSION STOCKING,KNEE HIG* Sig Varis compression stockin* COLACE 100 MG CAPSULE Take one(1) tablet two(2) tasha* MULTIVITAMIN TABLET Take one(1) tablet daily. Problem List As Of Date 09/23/2017 Noted Resolved Unspecified Essential Hypertension [I10] INVALID FOR*12/12/2009 Esophageal Reflux [K21.9] 12/12/2009 Asthma [J45.909] Hypertension goal BP (blood pressure) < 150/90 * Other and Unspecified Hyperlipidemia [E78.5] 01/10/2010 Priority: A More... DM w/o Complication Type II [E11.9] 12/13/2009 Priority: E Gout, unspecified [M10.9] Obesity, Unspecified [E66.9] 12/13/2009 Priority: I BPH W URINARY OBS/LUTS [N40.1] INVALID FOR* OPEN WOUND KNEE/LEG-COMPL [S81.009A, S81.809A, *INVALID FOR*08/21/2008 Lymphedema of both lower extremities [I89.0] INVALID FOR* Thoracic Aneurysm without Mention of Rupture [I*INVALID FOR*12/13/2009 Priority: A More... ASCVD [I25.10] INVALID FOR* More... Osteoarthritis of knee [M17.10] INVALID FOR* More... GERD [K21.9] More... More... More... More... Atelectasis/pleural effusion [J98.11] INVALID FOR*01/10/2010 Priority: C More... DM type 2, uncontrolled, with neuropathy (HCC) *INVALID FOR* More... CAD (mild per cath) [I25.10] INVALID FOR*03/22/2010 Priority: A More... Oliguria [R34] INVALID FOR*12/13/2009 Priority: C More... Acute Renal Insufficiency [N28.9] INVALID FOR*12/27/2009 Priority: C More... More... A-fib (HCC) [I48.91] INVALID FOR*03/02/2014 ARF (Acute Renal Failure) [N17.9] INVALID FOR*12/18/2009 More... Respiratory Failure, Acute [J96.00] INVALID FOR*12/18/2009 Priority: B More... Leukocytosis [D72.829] INVALID FOR*12/27/2009 Priority: D More... Hypernatremia [E87.0] INVALID FOR*12/27/2009 Priority: C More... H/o Pericardial Effusion (moderate on d/c) [I3*INVALID FOR*01/16/2010 Priority: A More... More... Anemia [D64.9] INVALID FOR*01/10/2010 Priority: B More... More... H/o Fever (upon admission) [R50.9] INVALID FOR*01/12/2010 Priority: C More... Malnutrition [E46] INVALID FOR*01/10/2010 More... Hyperlipidemia with target LDL less than 70 [E7*INVALID FOR* Pleural Effusion/atelectasis [J90] INVALID FOR*04/05/2013 Priority: B More... Gout [M10.9] INVALID FOR*03/22/2010 Priority: D More... Sepsis [A41.9] INVALID FOR*03/22/2010 Priority: C More... Hypokalemia [E87.6] INVALID FOR*03/22/2010 Priority: C More... Renal insufficiency [N28.9] INVALID FOR*03/22/2010 Priority: C More... Ascending aortic aneurysm [I71.2] INVALID FOR*04/05/2013 Dilated aortic root [I77.810] INVALID FOR*04/05/2013 Anemia [D64.9] INVALID FOR* CKD (chronic kidney disease) stage 3, GFR 30-59*INVALID FOR* COPD (chronic obstructive pulmonary disease) [J*INVALID FOR* Status post aortic valve replacement with prost*INVALID FOR* CVA (cerebral vascular accident) (HCC) [I63.9] INVALID FOR*03/02/2014 More... Stasis leg ulcer (HCC) [I83.009, L97.909] INVALID FOR* Pruritic disorder [L29.9] INVALID FOR* MIKO (obstructive sleep apnea) [G47.33] INVALID FOR* Pulmonary embolus (HCC) [I26.99] INVALID FOR* Obsessive-compulsive disorder [F42.9] INVALID FOR* Acute congestive heart failure (HCC) [I50.9] INVALID FOR* Encounter Status:Closed by CAILIN RIOS on 02/15/18 PROGRESS Observed: 09/22/2017 Status: COMPLETED Source: [place] 6:05 PM [facility] REPOSITORY O ID: [id number] Author: Cailin Rios Service: (none) Author Type: Registered Nurse Type: Progress Notes Filed: 02/15/2018 10:52 AM Note Text: PRIMARY CARE COORDINATION IN OFFICE VISIT WITH PCP Patient has been identified by name and date of . PCP Assessment/Plan: Reviewed PCP plan with patient using Te[employer] Pt doesn't appear willing to change diet, etc. PCC Plan of Care: Patient concerns: Pt worries more about his legs than DM2. Patient goals: To get rid of swelling, but not willing to follow low Na diet. Recc weight loss but not willing at this time. Will have home PT. PCC Interventions: Education about NaCl and diet control. Recc. using nebulizer regularly. Is to see Cards next week. Next Office Visit: 11/05/2017 Plan For Next Call: Tomorrow. Cailin Rios RN Ambulatory [facility] September 22, 2017 PROGRESS Observed: 09/22/2017 Status: COMPLETED Source: [place] 4:20 PM [facility] REPOSITORY HNO ID: [id number] Author: Martina Arias (Prabha) Service: (none) Author Type: Nurse Practitioner Type: Progress Notes Filed: 09/25/2017 8:10 AM Note Text: This is a 72 year old male who presents today with: Patient presents with: Hospital Follow Up: TCM- 14 day HISTORY OF PRESENT ILLNESS: Everett Iyer is a 72 year old male. Patient presents with: Hospital Follow Up: TCM- 14 day TRANSITION CARE MANAGEMENT (TCM) INITIAL CONTACT ? ? Provider Action/FYI: Pt doing well on 3L O2 NC; getting around with walker at home. Says weight not increasing. Not voiding significantly more on increased lasix. ? ? Initial contact with patient post discharge, spoke to pt. Patient identified by name and . ? SUMMARY: -Pt discharged from [facility]CU on 09/12. Pt adm 08/20-08/24 [facility] then transferred to TCU. -Follow up appointment on 09/22/17 with Cornelia Arias CNP. -Medication review done with pt. He dispenses his own meds from bottle daily. -Admitted for: CHF ? CONCERNS: Currently on 3L O2 NC. States legs are about the same. Keeps them elevated in recliner-recc Weight remains stable. Appetite is good, unchanged. Denies any needs. Has grab bars in shower and bench in walk in shower. Uses sink to help with getting off toilet. Not voiding much more than previously. No using Oxy IR. No significant pain, except some shoulder discomfort. Sugar this AM was 204, but usually about 140-160. ? NEW MEDICATIONS: Lasix 80 mg BID OxyIR 5mg Q4 hrs prn Eliquis 5mg BID Miralax 17 gm daily ? MEDS HELD/DISCONTINUED: None ? BRIEF HOSPITAL COURSE: This is a 72 y/o M w/ PMHx: , BPH, HTN, Diabetes mellitus type II w/ neuropathy, Tobacco use, CHF Unclear type, CKD stage II, COPD, History of AVR, History of AAA s/p repair, GERD, Morbid Obesity PVD, Hx Ileus, Hx PE on Eliquis prior who presents to the [facility] ED on 08/20/17 with history of progressively worsening dyspnea, worse with exertion, orthopnea, worsening BL LE edema on intravenous Lasix and admitted to PCU. He was placed on BiPAP which was ultimately changed to nightly BiPAP. Her Improved with IV Lasix and was then changed to oral medication. 1 acute on chronic diastolic congestive heart failure; was treated with intravenous Lasix, he is now compensated and changed to p.o. Lasix at 80 mg twice daily. ? 2 anasarca; improved with diuretic therapy. ? 3 type 2 diabetes; currently receiving Lantus ? 4 hypertension; controlled ? 5 chronic obstructive pulmonary disease; continue on bronchodilators and supplemental oxygen. ? 6 chronic hypoxic respiratory failure; supplemental oxygen per nasal cannula. ? 7 iron deficiency anemia; the patient was given intravenous iron. ? 8 chronic kidney disease stage II secondary to type 2 diabetes; renal parameters at the time of discharge. ? 9 MIKO; HS BiPAP ? 10 super morbid obesity; weight loss recommended that unlikely to happen at this time. ? 11. chronic stasis dermatitis of the lower legs with excoriation of both lower legs, no evidence of cellulitis at this time. ? 13 significant debility; PT OT care home placement. ? ? On exam at the time of discharge; ? vital signs were stable. He was alert and oriented to time place and person. He did not appear to be any form of distress. S1 and S2 heard no murmur or gallop Lung exam was clear to auscultation with no adventitious sounds. Abdomen was soft nontender with normal bowel sounds. extremity exam ; lower extremity stasis dermatitis Neurologic exam was grossly intact. (Copied from [employer]) ? Pt was D/C to TCU at [facility] for strengthening rehab. for nearly 3 wks and then D/C home with HH. Pt was at Dr. Clay's office (pulmonology). Was sent from Dr. Clay's office to hospital. Prior to that time, was requiring 6L of O2 at all times. On arrival to ER, O2 Sat was 82% on 7L Admitted: 08/20/17 to [facility] Discharge: 08/24/17. Admitted to TCU at [facility]: 08/24/17 Discharged from TCU on 09/12/17 Primary dx: Acute on chronic diastolic heart failure Iron deficiency anemia Bilateral lower extremity venous stasis dermatitis 08/20/17 CTA of chest: RUL chronic PE. Mild cardiomegaly, mild edema Moderate right pleural effusion, smlal left pleural effusion. Right lower lobe atelectasis. Herniation of stomach, colon. -Started IV Lasix for CHF, Heparin drip for PE, and IV vanco and zosyn for BLE cellulitis (which was later deemed venous statis dermatitis). - Eval by Dr. Raymundo and recommended ACEI and diuretics. - Started Eliquis for PE. 08/21/17 Echo -- LV systolic function normal. EF 60%. Dr. Clay recommended aerosol, eliquis, IV lasix, and bipap. Zosyn stopped d/t legs with venous statis dermatitis rather than cellulitis. 08/22/17 Diuresing well on IV Lasix. Venofer for iron replacement. 08/24/17 Admit to TCU Pt has chronic COPD and follows with Dr. Clay. Currently on 3L of O2 at home. Refers breathing has been stable. Refers that he is using his cpap more -- refers that he is using nightly for 5 hours. (previously noted compliance report demonstrated 27% compliance over the last 30 days). Not using nebulizers -- using the inhalers -- reports varies from 2-5 times daily -- sometimes more and sometimes less. He was actually out of ventolin inhaler and was too soon to oyster picker from the pharmacy. Reports it is time for refill, now. Has home health nurse/aid from [facility]. They come in and wrap legs. Son reports that his legs look worse. More swollen. Pt reports he is propping daily. Admits that he doesn't add salt to foods, however, may not be making the best low-sodium food choices. Declines nutritional consult at this time. Denies chest pain or palpitations. He was seen By Dr. Flores at the hospital. He has a follow-up scheduled with him next week. REVIEW OF SYSTEMS GENERAL: No weight loss, malaise or fevers/chills HEENT: Negative for frequent or significant headaches, No changes in hearing or vision. NECK: Negative for lumps, goiter, pain and significant neck swelling RESPIRATORY: Negative for cough, hemoptysis, wheezing. + SOB and GALLAGHER. CARDIOVASCULAR: Negative for chest pain, or palpitations. + leg swelling. + orthopnea -- sleeps in recliner. GI: No nausea, vomiting, or diarrhea. Some constipation -- uses miralax. No hematochezia/melena. + heartburn or reflux symptoms -- uses prevacid as needed. : No history of dysuria, frequency or incontinence MUSCULOSKELETAL: some chronic right shoulder and right knee joint pains. SKIN: wounds on the BLE -- admits that he picks. ENDOCRINE: Negative for cold or heat intolerance, polyuria, polydipsia and goiter NEURO: No history of headaches, syncope, paralysis, seizures or tremors PAST MEDICAL HISTORY: PAST MEDICAL HISTORY Diagnosis Date - A-fib 12/13/2009 - Ascending aortic aneurysm (HCC) 05/10/2010 - CVA (cerebral vascular accident) ([facility]) 09/09/2010 Right thalamic stroke. - Esophageal reflux - Gout, unspecified - Hypertension - Hypertrophy of prostate with urinary obstruction and other lower urinary tract symptoms (LUTS) 03/06/2005 - Ileus (HCC) 12/13/2009 - Obesity, unspecified - MIKO (obstructive sleep apnea) 01/24/2016 - Osteoarthritis of knee 08/14/2009 Dr. Tee. - Other and unspecified hyperlipidemia - Other ventral hernia without mention of obstruction or gangrene chronic - Sepsis(995.91) 01/12/2010 - Status post aortic valve replacement with prosthetic valve 12/11/2009 - Temporomandibular joint disorders, unspecified 1960 left side - Thoracic aneurysm without mention of rupture 08/07/2006 Paras Paulino MD. [place] [facility]. aortic root-6.1x6.8cm; ascending 4.5cm - Type II or unspecified type diabetes mellitus without mention of complication, uncontrolled - Unspecified asthma(493.90) PAST SURGICAL HISTORY Procedure Laterality Date - ASCENDING AORTIC GRAFT 12/11/2009 - COLONOSCOP W/ OR W/O [facility] 12/17/2004 Colonoscopy - COLONOSCOP W/ OR W/O [facility] 01/03/15 Colonoscopy outpt [facility] incomplete/ba enema done - CYSTO.PANENDO 06/11/2007 Cystoscopy - MIDLINE INSERTION/CONSULT 12/03/2013 - PAST SURGICAL HISTORY OF 05/2006 Left leg hematoma removed-Dr. Garcia - REP INIT INCI/VENTRAL HERNIA REDUCIBLE 11/30/2013 Lysis adhesions, - S VALVE,AORTIC,FREESTYLE,FR995 12/11/2009 ALLERGIES Levaquin [Levofloxacin]; Naldecon Senior Dx [Dextromethorphan-Guaifenesin]; Norvasc [Amlodipine Besylate] MEDICATIONS Current Outpatient Prescriptions: insulin glargine (LANTUS SOLOSTAR U-100 INSULIN) 100 unit/mL (3 mL) inpn Inject 30 Units subcutaneously twice daily. metFORMIN (GLUCOPHAGE) 500 mg tablet Take 1 tablet by mouth three times daily with meals. loratadine (CLARITIN) 10 mg tablet Take 10 mg by mouth once daily. COMPOUNDED PRESCRIPTION Take 2 tablets by mouth once daily. Mucus relief PE albuterol HFA (VENTOLIN HFA) 90 mcg/actuation inhaler Inhale 2 Puffs as instructed every 4 hours as needed for Wheezing/Shortness of Breath. OLANZapine (ZYPREXA) 2.5 mg tablet Take 1 tablet by mouth daily at bedtime. clopidogrel (PLAVIX) 75 mg tablet Take 1 tablet by mouth once daily. spironolactone (ALDACTONE) 25 mg tablet TAKE 1 TABLET TWICE DAILY atorvastatin (LIPITOR) 80 mg tablet Take 0.5 tablets by mouth once daily. metoprolol tartrate, short acting, (LOPRESSOR) 50 mg tablet Take 1 tablet by mouth twice daily. losartan (COZAAR) 100 mg tablet TAKE 1 TABLET BY MOUTH EVERY DAY sertraline (ZOLOFT) 50 mg tablet Take 1 tablet by mouth every evening. In addition to 100 mg daily. sertraline (ZOLOFT) 100 mg tablet Take 1 tablet by mouth once daily. fluticasone-salmeterol (ADVAIR DISKUS) 250-50 mcg/dose dsdv Inhale 1 Puff as instructed twice daily. Rinse and gargle mouth after use with water. Per Dr. Memo Clay. hydrOXYzine HCl (ATARAX) 25 mg tablet TAKE 1 TABLET BY MOUTH THREE TIMES DAILY for nervous itching/scratching cloNIDine TTS (CATAPRES-TTS) 0.3 mg/24 hr Apply 1 Patch as directed once each week. glimepiride (AMARYL) 4 mg tablet Take 2 tablets by mouth daily with breakfast. lansoprazole (PREVACID) 15 mg capsule Take 1 capsule by mouth once daily. allopurinol (ZYLOPRIM) 300 mg tablet Take 1 tablet by mouth once daily. For gout. blood sugar diagnostic ([employer] ULTRA TEST) test strip Check 4x times a day. Dx: E11.65. On insulin. Hypoglycemia. Lancets (OVGuideUCH ULTRASOFT LANCETS) lancets Use four times a day Dx: E11.65 insulin needles, DISPOSABLE, (BD INSULIN PEN NEEDLE UF) 31 gauge x 5/16 ndle 1 Each once daily. Dx: 250.00 Insulin: yes magnesium oxide (MAG-OX) 400 mg tablet Take 2 tablets by mouth twice daily. ipratropium-albuterol (DUONEB) 0.5 mg-3 mg(2.5 mg base)/3 mL nebu Inhale 3 mL as instructed every 4 hours as needed (wheezing). Use over 5-15minutes per nebulizer. acetaminophen (TYLENOL EXTRA STRENGTH) 500 mg tablet Take 2 tablets by mouth every 6 hours as needed for Pain (Patient takes 2x/day). Terazosin HCl (HYTRIN) 10 mg capsule Take 1 capsule by mouth daily at bedtime. finasteride (PROSCAR) 5 mg tablet Take 1 tablet by mouth once daily. Ferrous Sulfate 325 mg (65 mg iron) tablet Take 1 tablet by mouth once daily. alcohol antiseptic pads(ALCOHOL PREP PADS) use as directed COMPRESSION STOCKING,KNEE HIGH,LONG LENGTH,X-LARGE Sig Varis compression stockings. 30-40 mm Hg- size X2 - open toe. Beige. COLACE 100 MG CAP Take one(1) tablet two(2) times daily. MULTIVITAMIN TAB Take one(1) tablet daily. apixaban (ELIQUIS) 5 mg tab(s) Take 1 tablet by mouth twice daily. furosemide (LASIX) 80 mg tablet Take 1 tablet by mouth twice daily. No current facility-administered medications for this visit. FAMILY HISTORY Problem Relation Age of Onset - Hypertension Mother - Genitourinary () Mother age 84, renal failure - Prostate Cancer Father age 94 - GI Sister ulcerative colitis, ileostomy Social History Marital status: Spouse name: sahil Years of education: Number of children: 1 Occupational History Occupation Employer Comment retired [employer] Social History Main Topics Smoking status: Former Smoker Packs/day: 0.00 Years: 0.00 Quit date: 05/25/1966 Smokeless tobacco: Never Used Alcohol use: No Comment: rare mixed drink Social History Narrative Lives with . Ambulatory with walker or 2 canes. Morbid obesity. EXAM: BP 126/62 (BP Site: Left Arm, BP Position: Sitting, BP Cuff Size: Large Adult) Pulse 80 Resp 12 Wt (!) 172.2 kg (379 lb 9.6 oz) BMI 57.72 kg/m? PHYSICAL EXAM: General Appearance: Well appearing, alert, in no acute distress, well-hydrated, well nourished., Obese. Skin: Skin color, texture, turgor normal, no suspicious rashes or lesions. Head: Normocephalic, no masses, lesions, tenderness or abnormalities. Eyes: Anicteric sclera. Extraocular movements are intact. . Neck: Supple, no adenopathy; thyroid symmetric, normal size, no bruits. Lungs: Lungs clear to auscultation. No wheezing, rhonchi, rales. Heart: RRR without murmur, gallop, or rubs. No ectopy. Abdomen: Abdomen obese, soft, non-tender. Bowel sounds normal. Extremities: No deformities,clubbing or cyanosis. Good capillary refill. + statis dermatitis with open areas on the lateral/anterior aspect of bilateral lower extremities/shins. +2+3 BLE and pedal edema. Neurologic: Oriented X 3. ASSESSMENT/PLAN: 1. Acute on chronic diastolic congestive heart failure (HCC) - ICD9: 428.33, 428.0, ICD10: I50.33 (primary diagnosis) - CBC + DIFF - CMP - For the next 3 days, will have patient add an extra 1/2 lasix (40 mg) mid-day. - MIKE wraps to legs. - Prop feet - limit sodium/hidden sodium intake. - Declines nutrition referral. -Keep appt with Dr. Raymundo tomorrow. 2. Heartburn - ICD9: 787.1, ICD10: R12 Encouraged to take his prevacid more regularly -- currently just using as needed. Avoid food triggers. 3. Hypertension goal BP (blood pressure) < 150/90 - ICD9: 401.9, ICD10: I10 - good control - Continue current medication(s) - Encouraged dietary sodium restriction/DASH diet - Goal of BP <130/80 - COMP METABOLIC PANEL 4. Lymphedema of both lower extremities - ICD9: 457.1, ICD10: I89.0 Continue Mike wraps. Prop legs 5. DM type 2, uncontrolled, with neuropathy (HCC) - ICD9: 250.62, 357.2, ICD10: E11.40, E11.65 - HGB A1C Declines nutrition referral. Continue current medications. 6. Hyperlipidemia with target LDL less than 70 - ICD9: 272.4, ICD10: E78.5 - to be determined upon return of lab results - Continue current medication. - LIPID PANEL, NONFASTING 7. CKD (chronic kidney disease) stage 3, GFR 30-59 ml/min - ICD9: 585.3, ICD10: N18.3 -CMP 8. Chronic obstructive pulmonary disease, unspecified COPD type (HCC) - ICD9: 496, ICD10: J44.9 Continue to follow per Dr. Clay Use CPAP. Discussion on correct use of inhalers. Encouraged to use nebulizer more and MDI less. 9. Venous Stasis dermatitisr. Not infected today. Continue to keep clean/dry. STOP PICKING! 10. Morbid obesity Weight loss encouraged. Declined nutrition referral. Discussed treatment plan and patient voices understanding. Patient's questions answered appropriately. Medications and potential side effects were discussed and patient voices understanding. Return to the office as scheduled or as needed for worsening/no improvement. Recheck in 1-2 weeks. Keep appt with Dr. Raymundo next week. Martina Arias APRN.PRABHA PROGRESS Observed: 09/22/2017 Status: COMPLETED Source: [place] 4:10 PM [facility] REPOSITORY HNO ID: [id number] Author: Kalie Morelos Cma Service: (none) Author Type: (none) Type: Progress Notes Filed: 09/25/2017 8:10 AM Note Text: Transitional Care Management Progress Note The patients TCM visit was performed within the 14 days of discharge. Patient's Date of discharge: 08/24/17 Date of initial coordinator contact after discharge: 10/15/17 Discharge diagnosis: SOB, Cellulitis Medication review completed Yes Kalie Morelos [facility] Patient Outreach Open 09/15/2017 Internal Medicine Cailin Desai Internal Medicine [facility] Follow Up Reason for Visit Progress Notes Unsigned TRANSITION CARE MANAGEMENT (TCM) INITIAL CONTACT ? ? Provider Action/FYI: Pt doing well on 3L O2 NC; getting around with walker at home. Says weight not increasing. Not voiding significantly more on increased lasix. ? ? Initial contact with patient post discharge, spoke to pt. Patient identified by name and . ? SUMMARY: -Pt discharged from [facility]CU on 09/12. Pt adm 08/20-08/24 [facility] then transferred to TCU. -Follow up appointment on 09/22/17 with Cornelia Arias CNP. -Medication review done with pt. He dispenses his own meds from bottle daily. -Admitted for: CHF ? CONCERNS: Currently on 3L O2 NC. States legs are about the same. Keeps them elevated in recliner-recc Weight remains stable. Appetite is good, unchanged. Denies any needs. Has grab bars in shower and bench in walk in shower. Uses sink to help with getting off toilet. Not voiding much more than previously. No using Oxy IR. No significant pain, except some shoulder discomfort. Sugar this AM was 204, but usually about 140-160. ? NEW MEDICATIONS: Lasix 80 mg BID OxyIR 5mg Q4 hrs prn Eliquis 5mg BID Miralax 17 gm daily ? MEDS HELD/DISCONTINUED: None ? BRIEF HOSPITAL COURSE: This is a 72 y/o M w/ PMHx: , BPH, HTN, Diabetes mellitus type II w/ neuropathy, Tobacco use, CHF Unclear type, CKD stage II, COPD, History of AVR, History of AAA s/p repair, GERD, Morbid Obesity PVD, Hx Ileus, Hx PE on Eliquis prior who presents to the [facility] ED on 08/20/17 with history of progressively worsening dyspnea, worse with exertion, orthopnea, worsening BL LE edema on intravenous Lasix and admitted to PCU. He was placed on BiPAP which was ultimately changed to nightly BiPAP. Her Improved with IV Lasix and was then changed to oral medication. 1 acute on chronic diastolic congestive heart failure; was treated with intravenous Lasix, he is now compensated and changed to p.o. Lasix at 80 mg twice daily. ? 2 anasarca; improved with diuretic therapy. ? 3 type 2 diabetes; currently receiving Lantus ? 4 hypertension; controlled ? 5 chronic obstructive pulmonary disease; continue on bronchodilators and supplemental oxygen. ? 6 chronic hypoxic respiratory failure; supplemental oxygen per nasal cannula. ? 7 iron deficiency anemia; the patient was given intravenous iron. ? 8 chronic kidney disease stage II secondary to type 2 diabetes; renal parameters at the time of discharge. ? 9 MIKO; HS BiPAP ? 10 super morbid obesity; weight loss recommended that unlikely to happen at this time. ? 11. chronic stasis dermatitis of the lower legs with excoriation of both lower legs, no evidence of cellulitis at this time. ? 13 significant debility; PT OT care home placement. ? ? On exam at the time of discharge; ? vital signs were stable. He was alert and oriented to time place and person. He did not appear to be any form of distress. S1 and S2 heard no murmur or gallop Lung exam was clear to auscultation with no adventitious sounds. Abdomen was soft nontender with normal bowel sounds. extremity exam ; lower extremity stasis dermatitis Neurologic exam was grossly intact. (Copied from [employer]) ? Pt was D/C to TCU at [facility] for strengthening rehab. for nearly 3 wks and then D/C home with HH. STU Observed: 09/22/2017 Status: COMPLETED Source: [place] 4:00 PM [facility] REPOSITORY Office Visit (FAMPWS) EVERETT IYER ([id number]) 1945 M Date Time Provider Department 09/22/17 4:00 PM MARTINA ARIAS ([facility]) [facility] During your visit today, we recorded the following information about you: Pulse Respiration Blood pressure Weight 80/minute 12/minute 126/62 172.2 kg Kalie Morelos Cma 09/25/2017 8:10 AM Signed Transitional Care Management Progress Note The patients TCM visit was performed within the 14 days of discharge. Patient's Date of discharge: 08/24/17 Date of initial coordinator contact after discharge: 10/15/17 Discharge diagnosis: SOB, Cellulitis Medication review completed Yes Kalie Morelos Cma Patient Outreach Open 09/15/2017 Internal Medicine Mark Rios, Cailin Internal Medicine [facility] Follow Up Reason for Visit Progress Notes Unsigned TRANSITION CARE MANAGEMENT (TCM) INITIAL CONTACT ? ? Provider Action/FYI: Pt doing well on 3L O2 NC; getting around with walker at home. Says weight not increasing. Not voiding significantly more on increased lasix. ? ? Initial contact with patient post discharge, spoke to pt. Patient identified by name and . ? SUMMARY: -Pt discharged from [facility] on 09/12. Pt adm 08/20-08/24 [facility] then transferred to TCU. -Follow up appointment on 09/22/17 with Cornelia Arias CNP. -Medication review done with pt. He dispenses his own meds from bottle daily. -Admitted for: CHF ? CONCERNS: Currently on 3L O2 NC. States legs are about the same. Keeps them elevated in recliner-recc Weight remains stable. Appetite is good, unchanged. Denies any needs. Has grab bars in shower and bench in walk in shower. Uses sink to help with getting off toilet. Not voiding much more than previously. No using Oxy IR. No significant pain, except some shoulder discomfort. Sugar this AM was 204, but usually about 140-160. ? NEW MEDICATIONS: Lasix 80 mg BID OxyIR 5mg Q4 hrs prn Eliquis 5mg BID Miralax 17 gm daily ? MEDS HELD/DISCONTINUED: None ? BRIEF HOSPITAL COURSE: This is a 72 y/o M w/ PMHx: , BPH, HTN, Diabetes mellitus type II w/ neuropathy, Tobacco use, CHF Unclear type, CKD stage II, COPD, History of AVR, History of AAA s/p repair, GERD, Morbid Obesity PVD, Hx Ileus, Hx PE on Eliquis prior who presents to the [facility] ED on 08/20/17 with history of progressively worsening dyspnea, worse with exertion, orthopnea, worsening BL LE edema on intravenous Lasix and admitted to PCU. He was placed on BiPAP which was ultimately changed to nightly BiPAP. Her Improved with IV Lasix and was then changed to oral medication. 1 acute on chronic diastolic congestive heart failure; was treated with intravenous Lasix, he is now compensated and changed to p.o. Lasix at 80 mg twice daily. ? 2 anasarca; improved with diuretic therapy. ? 3 type 2 diabetes; currently receiving Lantus ? 4 hypertension; controlled ? 5 chronic obstructive pulmonary disease; continue on bronchodilators and supplemental oxygen. ? 6 chronic hypoxic respiratory failure; supplemental oxygen per nasal cannula. ? 7 iron deficiency anemia; the patient was given intravenous iron. ? 8 chronic kidney disease stage II secondary to type 2 diabetes; renal parameters at the time of discharge. ? 9 MIKO; HS BiPAP ? 10 super morbid obesity; weight loss recommended that unlikely to happen at this time. ? 11. chronic stasis dermatitis of the lower legs with excoriation of both lower legs, no evidence of cellulitis at this time. ? 13 significant debility; PT OT care home placement. ? ? On exam at the time of discharge; ? vital signs were stable. He was alert and oriented to time place and person. He did not appear to be any form of distress. S1 and S2 heard no murmur or gallop Lung exam was clear to auscultation with no adventitious sounds. Abdomen was soft nontender with normal bowel sounds. extremity exam ; lower extremity stasis dermatitis Neurologic exam was grossly intact. (Copied from [employer]) ? Pt was D/C to TCU at [facility] for strengthening rehab. for nearly 3 wks and then D/C home with HH. Martina Arias (Computer [employer]) 09/25/2017 8:10 AM Signed This is a 72 year old male who presents today with: Patient presents with: Hospital Follow Up: TCM- 14 day HISTORY OF PRESENT ILLNESS: Everett Iyer is a 72 year old male. Patient presents with: Hospital Follow Up: TCM- 14 day TRANSITION CARE MANAGEMENT (TCM) INITIAL CONTACT ? ? Provider Action/FYI: Pt doing well on 3L O2 NC; getting around with walker at home. Says weight not increasing. Not voiding significantly more on increased lasix. ? ? Initial contact with patient post discharge, spoke to pt. Patient identified by name and . ? SUMMARY: -Pt discharged from [facility] on 09/12. Pt adm 08/20-08/24 [facility] then transferred to TCU. -Follow up appointment on 09/22/17 with Cornelia Arias CNP. -Medication review done with pt. He dispenses his own meds from bottle daily. -Admitted for: CHF ? CONCERNS: Currently on 3L O2 NC. States legs are about the same. Keeps them elevated in recliner-recc Weight remains stable. Appetite is good, unchanged. Denies any needs. Has grab bars in shower and bench in walk in shower. Uses sink to help with getting off toilet. Not voiding much more than previously. No using Oxy IR. No significant pain, except some shoulder discomfort. Sugar this AM was 204, but usually about 140-160. ? NEW MEDICATIONS: Lasix 80 mg BID OxyIR 5mg Q4 hrs prn Eliquis 5mg BID Miralax 17 gm daily ? MEDS HELD/DISCONTINUED: None ? BRIEF HOSPITAL COURSE: This is a 72 y/o M w/ PMHx: , BPH, HTN, Diabetes mellitus type II w/ neuropathy, Tobacco use, CHF Unclear type, CKD stage II, COPD, History of AVR, History of AAA s/p repair, GERD, Morbid Obesity PVD, Hx Ileus, Hx PE on Eliquis prior who presents to the [facility] ED on 08/20/17 with history of progressively worsening dyspnea, worse with exertion, orthopnea, worsening BL LE edema on intravenous Lasix and admitted to PCU. He was placed on BiPAP which was ultimately changed to nightly BiPAP. Her Improved with IV Lasix and was then changed to oral medication. 1 acute on chronic diastolic congestive heart failure; was treated with intravenous Lasix, he is now compensated and changed to p.o. Lasix at 80 mg twice daily. ? 2 anasarca; improved with diuretic therapy. ? 3 type 2 diabetes; currently receiving Lantus ? 4 hypertension; controlled ? 5 chronic obstructive pulmonary disease; continue on bronchodilators and supplemental oxygen. ? 6 chronic hypoxic respiratory failure; supplemental oxygen per nasal cannula. ? 7 iron deficiency anemia; the patient was given intravenous iron. ? 8 chronic kidney disease stage II secondary to type 2 diabetes; renal parameters at the time of discharge. ? 9 MIKO; HS BiPAP ? 10 super morbid obesity; weight loss recommended that unlikely to happen at this time. ? 11. chronic stasis dermatitis of the lower legs with excoriation of both lower legs, no evidence of cellulitis at this time. ? 13 significant debility; PT OT care home placement. ? ? On exam at the time of discharge; ? vital signs were stable. He was alert and oriented to time place and person. He did not appear to be any form of distress. S1 and S2 heard no murmur or gallop Lung exam was clear to auscultation with no adventitious sounds. Abdomen was soft nontender with normal bowel sounds. extremity exam ; lower extremity stasis dermatitis Neurologic exam was grossly intact. (Copied from [employer]) ? Pt was D/C to TCU at [facility] for strengthening rehab. for nearly 3 wks and then D/C home with . Pt was at Dr. Clay's office (pulmonology). Was sent from Dr. Clay's office to hospital. Prior to that time, was requiring 6L of O2 at all times. On arrival to ER, O2 Sat was 82% on 7L Admitted: 08/20/17 to [facility] Discharge: 08/24/17. Admitted to TCU at [facility]: 08/24/17 Discharged from TCU on 09/12/17 Primary dx: Acute on chronic diastolic heart failure Iron deficiency anemia Bilateral lower extremity venous stasis dermatitis 08/20/17 CTA of chest: RUL chronic PE. Mild cardiomegaly, mild edema Moderate right pleural effusion, smlal left pleural effusion. Right lower lobe atelectasis. Herniation of stomach, colon. -Started IV Lasix for CHF, Heparin drip for PE, and IV vanco and zosyn for BLE cellulitis (which was later deemed venous statis dermatitis). - Eval by Dr. Raymundo and recommended ACEI and diuretics. - Started Eliquis for PE. 08/21/17 Echo -- LV systolic function normal. EF 60%. Dr. Clay recommended aerosol, eliquis, IV lasix, and bipap. Zosyn stopped d/t legs with venous statis dermatitis rather than cellulitis. 08/22/17 Diuresing well on IV Lasix. Venofer for iron replacement. 08/24/17 Admit to TCU Pt has chronic COPD and follows with Dr. Clay. Currently on 3L of O2 at home. Refers breathing has been stable. Refers that he is using his cpap more -- refers that he is using nightly for 5 hours. (previously noted compliance report demonstrated 27% compliance over the last 30 days). Not using nebulizers -- using the inhalers -- reports varies from 2-5 times daily -- sometimes more and sometimes less. He was actually out of ventolin inhaler and was too soon to oyster picker from the pharmacy. Reports it is time for refill, now. Has home health nurse/aid from [facility]. They come in and wrap legs. Son reports that his legs look worse. More swollen. Pt reports he is propping daily. Admits that he doesn't add salt to foods, however, may not be making the best low-sodium food choices. Declines nutritional consult at this time. Denies chest pain or palpitations. He was seen By Dr. Flores at the hospital. He has a follow-up scheduled with him next week. REVIEW OF SYSTEMS GENERAL: No weight loss, malaise or fevers/chills HEENT: Negative for frequent or significant headaches, No changes in hearing or vision. NECK: Negative for lumps, goiter, pain and significant neck swelling RESPIRATORY: Negative for cough, hemoptysis, wheezing. + SOB and GALLAGHER. CARDIOVASCULAR: Negative for chest pain, or palpitations. + leg swelling. + orthopnea -- sleeps in recliner. GI: No nausea, vomiting, or diarrhea. Some constipation -- uses miralax. No hematochezia/melena. + heartburn or reflux symptoms -- uses prevacid as needed. : No history of dysuria, frequency or incontinence MUSCULOSKELETAL: some chronic right shoulder and right knee joint pains. SKIN: wounds on the BLE -- admits that he picks. ENDOCRINE: Negative for cold or heat intolerance, polyuria, polydipsia and goiter NEURO: No history of headaches, syncope, paralysis, seizures or tremors PAST MEDICAL HISTORY: PAST MEDICAL HISTORY Diagnosis Date - A-fib 12/13/2009 - Ascending aortic aneurysm (HCC) 05/10/2010 - CVA (cerebral vascular accident) (HCC) 09/09/2010 Right thalamic stroke. - Esophageal reflux - Gout, unspecified - Hypertension - Hypertrophy of prostate with urinary obstruction and other lower urinary tract symptoms (LUTS) 03/06/2005 - Ileus (HCC) 12/13/2009 - Obesity, unspecified - MIKO (obstructive sleep apnea) 01/24/2016 - Osteoarthritis of knee 08/14/2009 Dr. Tee. - Other and unspecified hyperlipidemia - Other ventral hernia without mention of obstruction or gangrene chronic - Sepsis(995.91) 01/12/2010 - Status post aortic valve replacement with prosthetic valve 12/11/2009 - Temporomandibular joint disorders, unspecified 1960 left side - Thoracic aneurysm without mention of rupture 08/07/2006 Paras Paulino MD. [facility]. aortic root-6.1x6.8cm; ascending 4.5cm - Type II or unspecified type diabetes mellitus without mention of complication, uncontrolled - Unspecified asthma(493.90) PAST SURGICAL HISTORY Procedure Laterality Date - ASCENDING AORTIC GRAFT 12/11/2009 - COLONOSCOP W/ OR W/O [facility] SPEC 12/17/2004 Colonoscopy - COLONOSCOP W/ OR W/O [facility] SPEC 01/03/15 Colonoscopy outpt [facility] incomplete/ba enema done - CYSTO.PANENDO 06/11/2007 Cystoscopy - MIDLINE INSERTION/CONSULT 12/03/2013 - PAST SURGICAL HISTORY OF 05/2006 Left leg hematoma removed-Dr. Garcia - REP INIT INCI/VENTRAL HERNIA REDUCIBLE 11/30/2013 Lysis adhesions, - S VALVE,AORTIC,FREESTYLE,FR995 12/11/2009 ALLERGIES Levaquin [Levofloxacin]; Naldecon Senior Dx [Dextromethorphan-Guaifenesin]; Norvasc [Amlodipine Besylate] MEDICATIONS Current Outpatient Prescriptions: insulin glargine (LANTUS SOLOSTAR U-100 INSULIN) 100 unit/mL (3 mL) inpn Inject 30 Units subcutaneously twice daily. metFORMIN (GLUCOPHAGE) 500 mg tablet Take 1 tablet by mouth three times daily with meals. loratadine (CLARITIN) 10 mg tablet Take 10 mg by mouth once daily. COMPOUNDED PRESCRIPTION Take 2 tablets by mouth once daily. Mucus relief PE albuterol HFA (VENTOLIN HFA) 90 mcg/actuation inhaler Inhale 2 Puffs as instructed every 4 hours as needed for Wheezing/Shortness of Breath. OLANZapine (ZYPREXA) 2.5 mg tablet Take 1 tablet by mouth daily at bedtime. clopidogrel (PLAVIX) 75 mg tablet Take 1 tablet by mouth once daily. spironolactone (ALDACTONE) 25 mg tablet TAKE 1 TABLET TWICE DAILY atorvastatin (LIPITOR) 80 mg tablet Take 0.5 tablets by mouth once daily. metoprolol tartrate, short acting, (LOPRESSOR) 50 mg tablet Take 1 tablet by mouth twice daily. losartan (COZAAR) 100 mg tablet TAKE 1 TABLET BY MOUTH EVERY DAY sertraline (ZOLOFT) 50 mg tablet Take 1 tablet by mouth every evening. In addition to 100 mg daily. sertraline (ZOLOFT) 100 mg tablet Take 1 tablet by mouth once daily. fluticasone-salmeterol (ADVAIR DISKUS) 250-50 mcg/dose dsdv Inhale 1 Puff as instructed twice daily. Rinse and gargle mouth after use with water. Per Dr. Memo Clay. hydrOXYzine HCl (ATARAX) 25 mg tablet TAKE 1 TABLET BY MOUTH THREE TIMES DAILY for nervous itching/scratching cloNIDine TTS (CATAPRES-TTS) 0.3 mg/24 hr Apply 1 Patch as directed once each week. glimepiride (AMARYL) 4 mg tablet Take 2 tablets by mouth daily with breakfast. lansoprazole (PREVACID) 15 mg capsule Take 1 capsule by mouth once daily. allopurinol (ZYLOPRIM) 300 mg tablet Take 1 tablet by mouth once daily. For gout. blood sugar diagnostic (OVGuideUCH ULTRA TEST) test strip Check 4x times a day. Dx: E11.65. On insulin. Hypoglycemia. Lancets (EatwaveTOUCH ULTRASOFT LANCETS) lancets Use four times a day Dx: E11.65 insulin needles, DISPOSABLE, (BD INSULIN PEN NEEDLE UF) 31 gauge x 5/16 ndle 1 Each once daily. Dx: 250.00 Insulin: yes magnesium oxide (MAG-OX) 400 mg tablet Take 2 tablets by mouth twice daily. ipratropium-albuterol (DUONEB) 0.5 mg-3 mg(2.5 mg base)/3 mL nebu Inhale 3 mL as instructed every 4 hours as needed (wheezing). Use over 5-15minutes per nebulizer. acetaminophen (TYLENOL EXTRA STRENGTH) 500 mg tablet Take 2 tablets by mouth every 6 hours as needed for Pain (Patient takes 2x/day). Terazosin HCl (HYTRIN) 10 mg capsule Take 1 capsule by mouth daily at bedtime. finasteride (PROSCAR) 5 mg tablet Take 1 tablet by mouth once daily. Ferrous Sulfate 325 mg (65 mg iron) tablet Take 1 tablet by mouth once daily. alcohol antiseptic pads(ALCOHOL PREP PADS) use as directed COMPRESSION STOCKING,KNEE HIGH,LONG LENGTH,X-LARGE Sig Varis compression stockings. 30-40 mm Hg- size X2 - open toe. Beige. COLACE 100 MG CAP Take one(1) tablet two(2) times daily. MULTIVITAMIN TAB Take one(1) tablet daily. apixaban (ELIQUIS) 5 mg tab(s) Take 1 tablet by mouth twice daily. furosemide (LASIX) 80 mg tablet Take 1 tablet by mouth twice daily. No current facility-administered medications for this visit. FAMILY HISTORY Problem Relation Age of Onset - Hypertension Mother - Genitourinary () Mother age 84, renal failure - Prostate Cancer Father age 94 - GI Sister ulcerative colitis, ileostomy Social History Marital status: Spouse name: sahil Years of education: Number of children: 1 Occupational History Occupation Employer Comment retired [employer] Social History Main Topics Smoking status: Former Smoker Packs/day: 0.00 Years: 0.00 Quit date: 05/25/1966 Smokeless tobacco: Never Used Alcohol use: No Comment: rare mixed drink Social History Narrative Lives with . Ambulatory with walker or 2 canes. Morbid obesity. EXAM: BP 126/62 (BP Site: Left Arm, BP Position: Sitting, BP Cuff Size: Large Adult) Pulse 80 Resp 12 Wt (!) 172.2 kg (379 lb 9.6 oz) BMI 57.72 kg/m? PHYSICAL EXAM: General Appearance: Well appearing, alert, in no acute distress, well-hydrated, well nourished., Obese. Skin: Skin color, texture, turgor normal, no suspicious rashes or lesions. Head: Normocephalic, no masses, lesions, tenderness or abnormalities. Eyes: Anicteric sclera. Extraocular movements are intact. . Neck: Supple, no adenopathy; thyroid symmetric, normal size, no bruits. Lungs: Lungs clear to auscultation. No wheezing, rhonchi, rales. Heart: RRR without murmur, gallop, or rubs. No ectopy. Abdomen: Abdomen obese, soft, non-tender. Bowel sounds normal. Extremities: No deformities,clubbing or cyanosis. Good capillary refill. + statis dermatitis with open areas on the lateral/anterior aspect of bilateral lower extremities/shins. +2+3 BLE and pedal edema. Neurologic: Oriented X 3. ASSESSMENT/PLAN: 1. Acute on chronic diastolic congestive heart failure (HCC) - ICD9: 428.33, 428.0, ICD10: I50.33 (primary diagnosis) - CBC + DIFF - CMP - For the next 3 days, will have patient add an extra 1/2 lasix (40 mg) mid-day. - MIKE wraps to legs. - Prop feet - limit sodium/hidden sodium intake. - Declines nutrition referral. -Keep appt with Dr. Raymundo tomorrow. 2. Heartburn - ICD9: 787.1, ICD10: R12 Encouraged to take his prevacid more regularly -- currently just using as needed. Avoid food triggers. 3. Hypertension goal BP (blood pressure) < 150/90 - ICD9: 401.9, ICD10: I10 - good control - Continue current medication(s) - Encouraged dietary sodium restriction/DASH diet - Goal of BP <130/80 - COMP METABOLIC PANEL 4. Lymphedema of both lower extremities - ICD9: 457.1, ICD10: I89.0 Continue Mike wraps. Prop legs 5. DM type 2, uncontrolled, with neuropathy (HCC) - ICD9: 250.62, 357.2, ICD10: E11.40, E11.65 - HGB A1C Declines nutrition referral. Continue current medications. 6. Hyperlipidemia with target LDL less than 70 - ICD9: 272.4, ICD10: E78.5 - to be determined upon return of lab results - Continue current medication. - LIPID PANEL, NONFASTING 7. CKD (chronic kidney disease) stage 3, GFR 30-59 ml/min - ICD9: 585.3, ICD10: N18.3 -CMP 8. Chronic obstructive pulmonary disease, unspecified COPD type (HCC) - ICD9: 496, ICD10: J44.9 Continue to follow per Dr. Clay Use CPAP. Discussion on correct use of inhalers. Encouraged to use nebulizer more and MDI less. 9. Venous Stasis dermatitisr. Not infected today. Continue to keep clean/dry. STOP PICKING! 10. Morbid obesity Weight loss encouraged. Declined nutrition referral. Discussed treatment plan and patient voices understanding. Patient's questions answered appropriately. Medications and potential side effects were discussed and patient voices understanding. Return to the office as scheduled or as needed for worsening/no improvement. Recheck in 1-2 weeks. Keep appt with Dr. Raymundo next week. Martina Arias APRN.POWER SYSTEM ENGINEER Martina Arias ([facility]) 09/22/2017 5:32 PM Addendum 1. Next three days -- take 1/2 lasix extra in the afternoon. (80 in the morning, 40 in the afternoon, 80 in the evening). 2. Get labs. 3. Keep appt with Dr. Foss. 4. Recheck in 1-2 weeks. Referring Provider: SELF [[id number]] Allergies As of Date: 09/22/2017 Noted Allergy Reaction LEVAQUIN (LEVOFLOXACIN) 05/13/2007 1 - Mental Status Change NALDECON SENIOR DX (DEXTROMETHORP*02/13/2005 5 - Intolerance NORVASC (AMLODIPINE BESYLATE) 02/13/2005 5 - Intolerance Date Reviewed: 09/22/2017 Reviewed by: Kalie Morelos Cma - Fully Assessed Reason for Visit: Hospital Follow Up [177] Cmt: TCM- 14 day Primary Visit Diagnosis:Acute on chronic diastolic congestive heart failure (HCC) [I50.33] Other Visit Diagnoses:Heartburn [R12] Hypertension goal BP (blood pressure) < 150/90 [I10] Lymphedema of both lower extremities [I89.0] DM type 2, uncontrolled, with neuropathy ([facility]) [E11.40, E11.65] Hyperlipidemia with target LDL less than 70 [E78.5] CKD (chronic kidney disease) stage 3, GFR 30-59 ml/min [N18.3] Chronic obstructive pulmonary disease, unspecified COPD type ([facility]) [J44.9] Venous stasis dermatitis of both lower extremities [I87.2] Obesity, Class III, BMI 40-49.9 (morbid obesity) ([facility]) [E66.01] Order(s):apixaban (ELIQUIS) 5 mg tab(s)Take 1 tablet by mouth twice daily.Disp: 60 tabletRfl: 1 insulin glargine (LANTUS SOLOSTAR U-100 INSULIN) 100 unit/mL (3 mL) inpnInject 30 Units subcutaneously twice daily.Disp: Rfl: furosemide (LASIX) 80 mg tabletTake 1 tablet by mouth twice daily.Disp: 60 tabletRfl: 0 COMP METABOLIC PANEL [SQCMP] Order #: [id number] FUTURE HGB A1C [KUSHN7M] Order #: [id number] FUTURE LIPID PANEL, NONFASTING [SQLIPNF] Order #: [id number] FUTURE CBC + DIFF [SQCBCDIF] Order #: [id number] FUTURE Prescriptions as of 09/22/2017 Sig: INSULIN GLARGINE (U-100) 100 * Inject 30 Units subcutaneousl* METFORMIN 500 MG TABLET Take 1 tablet by mouth three * X FUROSEMIDE 20 MG TABLET TAKE 2 TABLETS BY MOUTH TWICE* LORATADINE 10 MG TABLET Take 10 mg by mouth once sunny* COMPOUNDED PRESCRIPTION Take 2 tablets by mouth once * ALBUTEROL SULFATE HFA 90 MCG/* Inhale 2 Puffs as instructed * OLANZAPINE 2.5 MG TABLET Take 1 tablet by mouth daily * CLOPIDOGREL 75 MG TABLET Take 1 tablet by mouth once d* SPIRONOLACTONE 25 MG TABLET TAKE 1 TABLET TWICE DAILY ATORVASTATIN 80 MG TABLET Take 0.5 tablets by mouth onc* METOPROLOL TARTRATE 50 MG TAB* Take 1 tablet by mouth twice * LOSARTAN 100 MG TABLET TAKE 1 TABLET BY MOUTH EVERY * SERTRALINE 50 MG TABLET Take 1 tablet by mouth every * SERTRALINE 100 MG TABLET Take 1 tablet by mouth once d* FLUTICASONE 250 MCG-SALMETERO* Inhale 1 Puff as instructed t* HYDROXYZINE HCL 25 MG TABLET TAKE 1 TABLET BY MOUTH THREE * CLONIDINE 0.3 MG/24 HR WEEKLY* Apply 1 Patch as directed onc* GLIMEPIRIDE 4 MG TABLET Take 2 tablets by mouth daily* LANSOPRAZOLE 15 MG CAPSULE,DE* Take 1 capsule by mouth once * ALLOPURINOL 300 MG TABLET Take 1 tablet by mouth once d* BLOOD SUGAR DIAGNOSTIC STRIPS Check 4x times a day. Dx: E1* LANCETS Use four times a day Dx: E1* PEN NEEDLE, DIABETIC 31 GAUGE* 1 Each once daily. Dx: 250.00* MAGNESIUM OXIDE 400 MG TABLET Take 2 tablets by mouth twice* IPRATROPIUM-ALBUTEROL 0.5 MG-* Inhale 3 mL as instructed lucille* ACETAMINOPHEN 500 MG TABLET Take 2 tablets by mouth every* TERAZOSIN 10 MG CAPSULE Take 1 capsule by mouth daily* FINASTERIDE 5 MG TABLET Take 1 tablet by mouth once d* FERROUS SULFATE 325 MG (65 MG* Take 1 tablet by mouth once d* ALCOHOL PREP PADS use as directed COMPRESSION STOCKING,KNEE HIG* Sig Varis compression stockin* COLACE 100 MG CAPSULE Take one(1) tablet two(2) tasha* MULTIVITAMIN TABLET Take one(1) tablet daily. APIXABAN 5 MG TABLET Take 1 tablet by mouth twice * FUROSEMIDE 80 MG TABLET Take 1 tablet by mouth twice * Problem List As Of Date 09/22/2017 Noted Resolved Unspecified Essential Hypertension [I10] INVALID FOR*12/12/2009 Esophageal Reflux [K21.9] 12/12/2009 Asthma [J45.909] Hypertension goal BP (blood pressure) < 150/90 * Other and Unspecified Hyperlipidemia [E78.5] 01/10/2010 Priority: A More... DM w/o Complication Type II [E11.9] 12/13/2009 Priority: E Gout, unspecified [M10.9] Obesity, Unspecified [E66.9] 12/13/2009 Priority: I BPH W URINARY OBS/LUTS [N40.1] INVALID FOR* OPEN WOUND KNEE/LEG-COMPL [S81.009A, S81.809A, *INVALID FOR*08/21/2008 Lymphedema of both lower extremities [I89.0] INVALID FOR* Thoracic Aneurysm without Mention of Rupture [I*INVALID FOR*12/13/2009 Priority: A More... ASCVD [I25.10] INVALID FOR* More... Osteoarthritis of knee [M17.10] INVALID FOR* More... GERD [K21.9] More... More... More... More... Atelectasis/pleural effusion [J98.11] INVALID FOR*01/10/2010 Priority: C More... DM type 2, uncontrolled, with neuropathy (HCC) *INVALID FOR* More... CAD (mild per cath) [I25.10] INVALID FOR*03/22/2010 Priority: A More... Oliguria [R34] INVALID FOR*12/13/2009 Priority: C More... Acute Renal Insufficiency [N28.9] INVALID FOR*12/27/2009 Priority: C More... More... A-fib (HCC) [I48.91] INVALID FOR*03/02/2014 ARF (Acute Renal Failure) [N17.9] INVALID FOR*12/18/2009 More... Respiratory Failure, Acute [J96.00] INVALID FOR*12/18/2009 Priority: B More... Leukocytosis [D72.829] INVALID FOR*12/27/2009 Priority: D More... Hypernatremia [E87.0] INVALID FOR*12/27/2009 Priority: C More... H/o Pericardial Effusion (moderate on d/c) [I3*INVALID FOR*01/16/2010 Priority: A More... More... Anemia [D64.9] INVALID FOR*01/10/2010 Priority: B More... More... H/o Fever (upon admission) [R50.9] INVALID FOR*01/12/2010 Priority: C More... Malnutrition [E46] INVALID FOR*01/10/2010 More... Hyperlipidemia with target LDL less than 70 [E7*INVALID FOR* Pleural Effusion/atelectasis [J90] INVALID FOR*04/05/2013 Priority: B More... Gout [M10.9] INVALID FOR*03/22/2010 Priority: D More... Sepsis [A41.9] INVALID FOR*03/22/2010 Priority: C More... Hypokalemia [E87.6] INVALID FOR*03/22/2010 Priority: C More... Renal insufficiency [N28.9] INVALID FOR*03/22/2010 Priority: C More... Ascending aortic aneurysm [I71.2] INVALID FOR*04/05/2013 Dilated aortic root [I77.810] INVALID FOR*04/05/2013 Anemia [D64.9] INVALID FOR* CKD (chronic kidney disease) stage 3, GFR 30-59*INVALID FOR* COPD (chronic obstructive pulmonary disease) [J*INVALID FOR* Status post aortic valve replacement with prost*INVALID FOR* CVA (cerebral vascular accident) ([facility]) [I63.9] INVALID FOR*03/02/2014 More... Stasis leg ulcer (HCC) [I83.009, L97.909] INVALID FOR* Pruritic disorder [L29.9] INVALID FOR* MIKO (obstructive sleep apnea) [G47.33] INVALID FOR* Pulmonary embolus (HCC) [I26.99] INVALID FOR* Obsessive-compulsive disorder [F42.9] INVALID FOR* Acute congestive heart failure (HCC) [I50.9] INVALID FOR* Other instructions from your clinician: 1. Next three days -- take 1/2 lasix extra in the afternoon. (80 in the morning, 40 in the afternoon, 80 in the evening). 2. Get labs. 3. Keep appt with Dr. Foss. 4. Recheck in 1-2 weeks. Prescriptions ordered this encounter Disp Refills Start End APIXABAN 5 MG TABLET 60 t* 1 09/22/2017 Class: Med Update Route: ORAL Sig: Take 1 tablet by mouth twice daily. INSULIN GLARGINE (U-100) 100 UNIT/ML* 09/22/2017 Class: Med Update Cmt: Dose adjusted. Med-sync patient. If too soon, we will put new RX on hold for next cycle. Route: SUBCUTANEOUS Sig: Inject 30 Units subcutaneously twice daily. FUROSEMIDE 80 MG TABLET 60 t* 0 09/22/2017 Class: Med Update Route: ORAL Sig: Take 1 tablet by mouth twice daily. Medications Discontinued During This Encounter insulin glargine (LANTUS SOLOSTAR) 1* 0.3 * 0 08/06/2015 09/22/2017 Class: Med Update Route: SUBCUTANEOUS Sig: Inject 30 Units subcutaneously one time only for 1 dose. INCREASE dose to TWENTY FIVE (25) UNITS daily. Disc: Reason for discontinue is not on file. insulin glargine (LANTUS SOLOSTAR) 1* 20 P* 3 03/02/2017 09/22/2017 Cmt: Dose adjusted. Med-sync patient. If too soon, we will put new RX on hold for next cycle. Route: SUBCUTANEOUS Sig: Inject 60 Units subcutaneously daily at bedtime. Disc: Reason for discontinue is not on file. tiotropium (SPIRIVA WITH HANDIHALER)* 90 c* 3 06/25/2016 09/22/2017 Route: INHALATION Sig: Inhale 1 capsule as instructed once daily. USE WITH HANDIHALER. Disc: Course of therapy completed Disposition: Return in about 2 weeks (around 10/06/2017), or if symptoms worsen or fail to improve, for recheck. Follow-up and Disposition History Recorded Encounter Status:Closed by MARTINA ARIAS CNP on 09/25/17 PRABHATOCRYSTAL Observed: 09/22/2017 Status: COMPLETED Source: [place] 12:00 AM [facility] REPOSITORY Patient Outreach ([facility]) EVERETT IYER ([id number]) 1945 M Date Time Provider Department 09/22/17 CAILIN CASTRO During your visit today, we recorded the following information about you: Cailin Morillo RN 02/15/2018 10:52 AM Signed PRIMARY CARE COORDINATION IN OFFICE VISIT WITH PCP Patient has been identified by name and date of . PCP Assessment/Plan: Reviewed PCP plan with patient using Te[employer] Back Pt doesn't appear willing to change diet, etc. PCC Plan of Care: Patient concerns: Pt worries more about his legs than DM2. Patient goals: To get rid of swelling, but not willing to follow low Na diet. Recc weight loss but not willing at this time. Will have home PT. PCC Interventions: Education about NaCl and diet control. Recc. using nebulizer regularly. Is to see Cards next week. Next Office Visit: 11/05/2017 Plan For Next Call: Tomorrow. Cailin Rios RN Ambulatory [facility] September 22, 2017 Allergies As of Date: 09/22/2017 Noted Allergy Reaction LEVAQUIN (LEVOFLOXACIN) 05/13/2007 1 - Mental Status Change NALDECON SENIOR DX (DEXTROMETHORP*02/13/2005 5 - Intolerance NORVASC (AMLODIPINE BESYLATE) 02/13/2005 5 - Intolerance Date Reviewed: 09/22/2017 Reviewed by: Kalie Morelos Cma - Fully Assessed Reason for Visit: [facility] Follow Up [3131] Prescriptions as of 09/22/2017 Sig: OXYCODONE 5 MG CAPSULE Take 1 capsule by mouth every* NUTRITIONAL SUPPLEMENTS ORAL * Take 237 mL by mouth twice da* X FUROSEMIDE 80 MG TABLET Take 1 tablet by mouth twice * X POLYETHYLENE GLYCOL 3350 17 G* Take 17 g by mouth once daily. X APIXABAN 5 MG TABLET Take 1 tablet by mouth twice * APIXABAN 5 MG TABLET Take 1 tablet by mouth twice * X INSULIN GLARGINE (U-100) 100 * Inject 30 Units subcutaneousl* X FUROSEMIDE 80 MG TABLET Take 1 tablet by mouth twice * METFORMIN 500 MG TABLET Take 1 tablet by mouth three * LORATADINE 10 MG TABLET Take 10 mg by mouth once sunny* COMPOUNDED PRESCRIPTION Take 2 tablets by mouth once * ALBUTEROL SULFATE HFA 90 MCG/* Inhale 2 Puffs as instructed * X OLANZAPINE 2.5 MG TABLET Take 1 tablet by mouth daily * CLOPIDOGREL 75 MG TABLET Take 1 tablet by mouth once d* SPIRONOLACTONE 25 MG TABLET TAKE 1 TABLET TWICE DAILY ATORVASTATIN 80 MG TABLET Take 0.5 tablets by mouth onc* METOPROLOL TARTRATE 50 MG TAB* Take 1 tablet by mouth twice * LOSARTAN 100 MG TABLET TAKE 1 TABLET BY MOUTH EVERY * X SERTRALINE 50 MG TABLET Take 1 tablet by mouth every * X SERTRALINE 100 MG TABLET Take 1 tablet by mouth once d* X FLUTICASONE 250 MCG-SALMETERO* Inhale 1 Puff as instructed t* HYDROXYZINE HCL 25 MG TABLET TAKE 1 TABLET BY MOUTH THREE * X CLONIDINE 0.3 MG/24 HR WEEKLY* Apply 1 Patch as directed onc* X GLIMEPIRIDE 4 MG TABLET Take 2 tablets by mouth daily* X LANSOPRAZOLE 15 MG CAPSULE,DE* Take 1 capsule by mouth once * LANCETS Use four times a day Dx: E1* X ALLOPURINOL 300 MG TABLET Take 1 tablet by mouth once d* X BLOOD SUGAR DIAGNOSTIC STRIPS Check 4x times a day. Dx: E1* PEN NEEDLE, DIABETIC 31 GAUGE* 1 Each once daily. Dx: 250.00* MAGNESIUM OXIDE 400 MG (241.3* Take 2 tablets by mouth twice* IPRATROPIUM-ALBUTEROL 0.5 MG-* Inhale 3 mL as instructed lucille* ACETAMINOPHEN 500 MG TABLET Take 2 tablets by mouth every* X TERAZOSIN 10 MG CAPSULE Take 1 capsule by mouth daily* FINASTERIDE 5 MG TABLET Take 1 tablet by mouth once d* FERROUS SULFATE 325 MG (65 MG* Take 1 tablet by mouth once d* ALCOHOL PREP PADS use as directed X COMPRESSION STOCKING,KNEE HIG* Sig Varis compression stockin* COLACE 100 MG CAPSULE Take one(1) tablet two(2) tasha* MULTIVITAMIN TABLET Take one(1) tablet daily. Problem List As Of Date 09/22/2017 Noted Resolved Unspecified Essential Hypertension [I10] INVALID FOR*12/12/2009 Esophageal Reflux [K21.9] 12/12/2009 Asthma [J45.909] Hypertension goal BP (blood pressure) < 150/90 * Other and Unspecified Hyperlipidemia [E78.5] 01/10/2010 Priority: A More... DM w/o Complication Type II [E11.9] 12/13/2009 Priority: E Gout, unspecified [M10.9] Obesity, Unspecified [E66.9] 12/13/2009 Priority: I BPH W URINARY OBS/LUTS [N40.1] INVALID FOR* OPEN WOUND KNEE/LEG-COMPL [S81.009A, S81.809A, *INVALID FOR*08/21/2008 Lymphedema of both lower extremities [I89.0] INVALID FOR* Thoracic Aneurysm without Mention of Rupture [I*INVALID FOR*12/13/2009 Priority: A More... ASCVD [I25.10] INVALID FOR* More... Osteoarthritis of knee [M17.10] INVALID FOR* More... GERD [K21.9] More... More... More... More... Atelectasis/pleural effusion [J98.11] INVALID FOR*01/10/2010 Priority: C More... DM type 2, uncontrolled, with neuropathy (HCC) *INVALID FOR* More... CAD (mild per cath) [I25.10] INVALID FOR*03/22/2010 Priority: A More... Oliguria [R34] INVALID FOR*12/13/2009 Priority: C More... Acute Renal Insufficiency [N28.9] INVALID FOR*12/27/2009 Priority: C More... More... A-fib (HCC) [I48.91] INVALID FOR*03/02/2014 ARF (Acute Renal Failure) [N17.9] INVALID FOR*12/18/2009 More... Respiratory Failure, Acute [J96.00] INVALID FOR*12/18/2009 Priority: B More... Leukocytosis [D72.829] INVALID FOR*12/27/2009 Priority: D More... Hypernatremia [E87.0] INVALID FOR*12/27/2009 Priority: C More... H/o Pericardial Effusion (moderate on d/c) [I3*INVALID FOR*01/16/2010 Priority: A More... More... Anemia [D64.9] INVALID FOR*01/10/2010 Priority: B More... More... H/o Fever (upon admission) [R50.9] INVALID FOR*01/12/2010 Priority: C More... Malnutrition [E46] INVALID FOR*01/10/2010 More... Hyperlipidemia with target LDL less than 70 [E7*INVALID FOR* Pleural Effusion/atelectasis [J90] INVALID FOR*04/05/2013 Priority: B More... Gout [M10.9] INVALID FOR*03/22/2010 Priority: D More... Sepsis [A41.9] INVALID FOR*03/22/2010 Priority: C More... Hypokalemia [E87.6] INVALID FOR*03/22/2010 Priority: C More... Renal insufficiency [N28.9] INVALID FOR*03/22/2010 Priority: C More... Ascending aortic aneurysm [I71.2] INVALID FOR*04/05/2013 Dilated aortic root [I77.810] INVALID FOR*04/05/2013 Anemia [D64.9] INVALID FOR* CKD (chronic kidney disease) stage 3, GFR 30-59*INVALID FOR* COPD (chronic obstructive pulmonary disease) [J*INVALID FOR* Status post aortic valve replacement with prost*INVALID FOR* CVA (cerebral vascular accident) (HCC) [I63.9] INVALID FOR*03/02/2014 More... Stasis leg ulcer (HCC) [I83.009, L97.909] INVALID FOR* Pruritic disorder [L29.9] INVALID FOR* MIKO (obstructive sleep apnea) [G47.33] INVALID FOR* Pulmonary embolus (HCC) [I26.99] INVALID FOR* Obsessive-compulsive disorder [F42.9] INVALID FOR* Acute congestive heart failure (HCC) [I50.9] INVALID FOR* Encounter Status:Closed by CAILIN RIOS on 02/15/18 PROGRESS Observed: 09/15/2017 Status: COMPLETED Source: [place] 1:47 PM [facility] REPOSITORY HNO ID: [id number] Author: Cailin Rios Service: (none) Author Type: Registered Nurse Type: Progress Notes Filed: 09/23/2017 12:28 PM Note Text: TRANSITION CARE MANAGEMENT (TCM) INITIAL CONTACT Provider Action/FYI: Pt doing well on 3L O2 NC; getting around with walker at home. Says weight not increasing. Not voiding significantly more on increased lasix. Initial contact with patient post discharge, spoke to pt. Patient identified by name and . SUMMARY: -Pt discharged from [facility] on 09/12. Pt adm 08/20-08/24 [facility] then transferred to TCU. -Follow up appointment on 09/22/17 with Cornelia Arias CNP. -Medication review done with pt. He dispenses his own meds from bottle daily. -Admitted for: CHF CONCERNS: Currently on 3L O2 NC. States legs are about the same. Keeps them elevated in recliner-recc Weight remains stable. Appetite is good, unchanged. Denies any needs. Has grab bars in shower and bench in walk in shower. Uses sink to help with getting off toilet. Not voiding much more than previously. No using Oxy IR. No significant pain, except some shoulder discomfort. Sugar this AM was 204, but usually about 140-160. NEW MEDICATIONS: Lasix 80 mg BID OxyIR 5mg Q4 hrs prn Eliquis 5mg BID Miralax 17 gm daily MEDS HELD/DISCONTINUED: None BRIEF HOSPITAL COURSE: This is a 72 y/o M w/ PMHx: , BPH, HTN, Diabetes mellitus type II w/ neuropathy, Tobacco use, CHF Unclear type, CKD stage II, COPD, History of AVR, History of AAA s/p repair, GERD, Morbid Obesity PVD, Hx Ileus, Hx PE on Eliquis prior who presents to the [facility] ED on 08/20/17 with history of progressively worsening dyspnea, worse with exertion, orthopnea, worsening BL LE edema on intravenous Lasix and admitted to PCU. He was placed on BiPAP which was ultimately changed to nightly BiPAP. Her Improved with IV Lasix and was then changed to oral medication. 1 acute on chronic diastolic congestive heart failure; was treated with intravenous Lasix, he is now compensated and changed to p.o. Lasix at 80 mg twice daily. 2 anasarca; improved with diuretic therapy. 3 type 2 diabetes; currently receiving Lantus 4 hypertension; controlled 5 chronic obstructive pulmonary disease; continue on bronchodilators and supplemental oxygen. 6 chronic hypoxic respiratory failure; supplemental oxygen per nasal cannula. 7 iron deficiency anemia; the patient was given intravenous iron. 8 chronic kidney disease stage II secondary to type 2 diabetes; renal parameters at the time of discharge. 9 MIKO; HS BiPAP 10 super morbid obesity; weight loss recommended that unlikely to happen at this time. 11. chronic stasis dermatitis of the lower legs with excoriation of both lower legs, no evidence of cellulitis at this time. 13 significant debility; PT OT care home placement. On exam at the time of discharge; vital signs were stable. He was alert and oriented to time place and person. He did not appear to be any form of distress. S1 and S2 heard no murmur or gallop Lung exam was clear to auscultation with no adventitious sounds. Abdomen was soft nontender with normal bowel sounds. extremity exam ; lower extremity stasis dermatitis Neurologic exam was grossly intact. (Copied from [employer]) Pt was D/C to TCU at [facility] for strengthening rehab. for nearly 3 wks and then D/C home with HH. LOONEY Observed: 09/15/2017 Status: COMPLETED Source: [place] 12:00 AM [facility] REPOSITORY Patient Outreach (INTMWS) EVERETT IYER ([id number]) 1945 M Date Time Provider Department 09/15/17 CAILIN CASTRO During your visit today, we recorded the following information about you: Cailin Morillo RN 09/23/2017 12:28 PM Signed TRANSITION CARE MANAGEMENT (TCM) INITIAL CONTACT Provider Action/FYI: Pt doing well on 3L O2 NC; getting around with walker at home. Says weight not increasing. Not voiding significantly more on increased lasix. Initial contact with patient post discharge, spoke to pt. Patient identified by name and . SUMMARY: -Pt discharged from [facility] on 09/12. Pt adm 08/20-08/24 [facility] then transferred to TCU. -Follow up appointment on 09/22/17 with Cornelia Arias CNP. -Medication review done with pt. He dispenses his own meds from bottle daily. -Admitted for: CHF CONCERNS: Currently on 3L O2 NC. States legs are about the same. Keeps them elevated in recliner-recc Weight remains stable. Appetite is good, unchanged. Denies any needs. Has grab bars in shower and bench in walk in shower. Uses sink to help with getting off toilet. Not voiding much more than previously. No using Oxy IR. No significant pain, except some shoulder discomfort. Sugar this AM was 204, but usually about 140-160. NEW MEDICATIONS: Lasix 80 mg BID OxyIR 5mg Q4 hrs prn Eliquis 5mg BID Miralax 17 gm daily MEDS HELD/DISCONTINUED: None BRIEF HOSPITAL COURSE: This is a 72 y/o M w/ PMHx: , BPH, HTN, Diabetes mellitus type II w/ neuropathy, Tobacco use, CHF Unclear type, CKD stage II, COPD, History of AVR, History of AAA s/p repair, GERD, Morbid Obesity PVD, Hx Ileus, Hx PE on Eliquis prior who presents to the [facility] ED on 08/20/17 with history of progressively worsening dyspnea, worse with exertion, orthopnea, worsening BL LE edema on intravenous Lasix and admitted to PCU. He was placed on BiPAP which was ultimately changed to nightly BiPAP. Her Improved with IV Lasix and was then changed to oral medication. 1 acute on chronic diastolic congestive heart failure; was treated with intravenous Lasix, he is now compensated and changed to p.o. Lasix at 80 mg twice daily. 2 anasarca; improved with diuretic therapy. 3 type 2 diabetes; currently receiving Lantus 4 hypertension; controlled 5 chronic obstructive pulmonary disease; continue on bronchodilators and supplemental oxygen. 6 chronic hypoxic respiratory failure; supplemental oxygen per nasal cannula. 7 iron deficiency anemia; the patient was given intravenous iron. 8 chronic kidney disease stage II secondary to type 2 diabetes; renal parameters at the time of discharge. 9 MIKO; HS BiPAP 10 super morbid obesity; weight loss recommended that unlikely to happen at this time. 11. chronic stasis dermatitis of the lower legs with excoriation of both lower legs, no evidence of cellulitis at this time. 13 significant debility; PT OT care home placement. On exam at the time of discharge; vital signs were stable. He was alert and oriented to time place and person. He did not appear to be any form of distress. S1 and S2 heard no murmur or gallop Lung exam was clear to auscultation with no adventitious sounds. Abdomen was soft nontender with normal bowel sounds. extremity exam ; lower extremity stasis dermatitis Neurologic exam was grossly intact. (Copied from [employer]) Pt was D/C to TCU at [facility] for strengthening rehab. for nearly 3 wks and then D/C home with HH. Martina Arias APRN.POWER SYSTEM ENGINEER 09/23/2017 12:28 PM Signed Seen at office 09/23. Allergies As of Date: 09/15/2017 Noted Allergy Reaction LEVAQUIN (LEVOFLOXACIN) 05/13/2007 1 - Mental Status Change NALDECON SENIOR DX (DEXTROMETHORP*02/13/2005 5 - Intolerance NORVASC (AMLODIPINE BESYLATE) 02/13/2005 5 - Intolerance Date Reviewed: 07/20/2017 Reviewed by: Celeste Hutchins LPN - Fully Assessed Reason for Visit: [facility] Follow Up [3610] Primary Visit Diagnosis:Osteoarthritis of both knees, unspecified osteoarthritis type [M17.0] Order(s):furosemide (LASIX) 80 mg tabletTake 1 tablet by mouth twice daily.Disp: Rfl: oxyCODONE ir (OXYIR) 5 mg capsuleTake 1 capsule by mouth every 6 hours as needed for up to 3 days. Earliest Fill Date: 09/23/17Disp: Rfl: polyethylene glycol 3350 (MIRALAX) 17 gram/dose powderTake 17 g by mouth once daily.Disp: 1 BottleRfl: apixaban (ELIQUIS) 5 mg tab(s)Take 1 tablet by mouth twice daily.Disp: Rfl: Nutritional Supplements (CANDIDO) packTake 237 mL by mouth twice daily.Disp: Rfl: Prescriptions as of 09/15/2017 Sig: METFORMIN 500 MG TABLET Take 1 tablet by mouth three * CLOPIDOGREL 75 MG TABLET Take 1 tablet by mouth once d* SPIRONOLACTONE 25 MG TABLET TAKE 1 TABLET TWICE DAILY ATORVASTATIN 80 MG TABLET Take 0.5 tablets by mouth onc* METOPROLOL TARTRATE 50 MG TAB* Take 1 tablet by mouth twice * LOSARTAN 100 MG TABLET TAKE 1 TABLET BY MOUTH EVERY * X INSULIN GLARGINE (U-100) 100 * Inject 60 Units subcutaneousl* SERTRALINE 50 MG TABLET Take 1 tablet by mouth every * SERTRALINE 100 MG TABLET Take 1 tablet by mouth once d* FLUTICASONE 250 MCG-SALMETERO* Inhale 1 Puff as instructed t* CLONIDINE 0.3 MG/24 HR WEEKLY* Apply 1 Patch as directed onc* GLIMEPIRIDE 4 MG TABLET Take 2 tablets by mouth daily* LANSOPRAZOLE 15 MG CAPSULE,DE* Take 1 capsule by mouth once * ALLOPURINOL 300 MG TABLET Take 1 tablet by mouth once d* LANCETS Use four times a day Dx: E1* PEN NEEDLE, DIABETIC 31 GAUGE* 1 Each once daily. Dx: 250.00* MAGNESIUM OXIDE 400 MG TABLET Take 2 tablets by mouth twice* IPRATROPIUM-ALBUTEROL 0.5 MG-* Inhale 3 mL as instructed lucille* TERAZOSIN 10 MG CAPSULE Take 1 capsule by mouth daily* FINASTERIDE 5 MG TABLET Take 1 tablet by mouth once d* FERROUS SULFATE 325 MG (65 MG* Take 1 tablet by mouth once d* MULTIVITAMIN TABLET Take one(1) tablet daily. FUROSEMIDE 80 MG TABLET Take 1 tablet by mouth twice * OXYCODONE 5 MG CAPSULE Take 1 capsule by mouth every* POLYETHYLENE GLYCOL 3350 17 G* Take 17 g by mouth once daily. APIXABAN 5 MG TABLET Take 1 tablet by mouth twice * NUTRITIONAL SUPPLEMENTS ORAL * Take 237 mL by mouth twice da* LORATADINE 10 MG TABLET Take 10 mg by mouth once sunny* COMPOUNDED PRESCRIPTION Take 2 tablets by mouth once * ALBUTEROL SULFATE HFA 90 MCG/* Inhale 2 Puffs as instructed * OLANZAPINE 2.5 MG TABLET Take 1 tablet by mouth daily * HYDROXYZINE HCL 25 MG TABLET TAKE 1 TABLET BY MOUTH THREE * BLOOD SUGAR DIAGNOSTIC STRIPS Check 4x times a day. Dx: E1* X TIOTROPIUM BROMIDE 18 MCG CAP* Inhale 1 capsule as instructe* ACETAMINOPHEN 500 MG TABLET Take 2 tablets by mouth every* ALCOHOL PREP PADS use as directed COMPRESSION STOCKING,KNEE HIG* Sig Varis compression stockin* COLACE 100 MG CAPSULE Take one(1) tablet two(2) tasha* Problem List As Of Date 09/15/2017 Noted Resolved Unspecified Essential Hypertension [I10] INVALID FOR*12/12/2009 Esophageal Reflux [K21.9] 12/12/2009 Asthma [J45.909] Hypertension goal BP (blood pressure) < 150/90 * Other and Unspecified Hyperlipidemia [E78.5] 01/10/2010 Priority: A More... DM w/o Complication Type II [E11.9] 12/13/2009 Priority: E Gout, unspecified [M10.9] Obesity, Unspecified [E66.9] 12/13/2009 Priority: I BPH W URINARY OBS/LUTS [N40.1] INVALID FOR* OPEN WOUND KNEE/LEG-COMPL [S81.009A, S81.809A, *INVALID FOR*08/21/2008 Lymphedema of both lower extremities [I89.0] INVALID FOR* Thoracic Aneurysm without Mention of Rupture [I*INVALID FOR*12/13/2009 Priority: A More... ASCVD [I25.10] INVALID FOR* More... Osteoarthritis of knee [M17.10] INVALID FOR* More... GERD [K21.9] More... More... More... More... Atelectasis/pleural effusion [J98.11] INVALID FOR*01/10/2010 Priority: C More... DM type 2, uncontrolled, with neuropathy (HCC) *INVALID FOR* More... CAD (mild per cath) [I25.10] INVALID FOR*03/22/2010 Priority: A More... Oliguria [R34] INVALID FOR*12/13/2009 Priority: C More... Acute Renal Insufficiency [N28.9] INVALID FOR*12/27/2009 Priority: C More... More... A-fib (HCC) [I48.91] INVALID FOR*03/02/2014 ARF (Acute Renal Failure) [N17.9] INVALID FOR*12/18/2009 More... Respiratory Failure, Acute [J96.00] INVALID FOR*12/18/2009 Priority: B More... Leukocytosis [D72.829] INVALID FOR*12/27/2009 Priority: D More... Hypernatremia [E87.0] INVALID FOR*12/27/2009 Priority: C More... H/o Pericardial Effusion (moderate on d/c) [I3*INVALID FOR*01/16/2010 Priority: A More... More... Anemia [D64.9] INVALID FOR*01/10/2010 Priority: B More... More... H/o Fever (upon admission) [R50.9] INVALID FOR*01/12/2010 Priority: C More... Malnutrition [E46] INVALID FOR*01/10/2010 More... Hyperlipidemia with target LDL less than 70 [E7*INVALID FOR* Pleural Effusion/atelectasis [J90] INVALID FOR*04/05/2013 Priority: B More... Gout [M10.9] INVALID FOR*03/22/2010 Priority: D More... Sepsis [A41.9] INVALID FOR*03/22/2010 Priority: C More... Hypokalemia [E87.6] INVALID FOR*03/22/2010 Priority: C More... Renal insufficiency [N28.9] INVALID FOR*03/22/2010 Priority: C More... Ascending aortic aneurysm [I71.2] INVALID FOR*04/05/2013 Dilated aortic root [I77.810] INVALID FOR*04/05/2013 Anemia [D64.9] INVALID FOR* CKD (chronic kidney disease) stage 3, GFR 30-59*INVALID FOR* COPD (chronic obstructive pulmonary disease) [J*INVALID FOR* Status post aortic valve replacement with prost*INVALID FOR* CVA (cerebral vascular accident) (HCC) [I63.9] INVALID FOR*03/02/2014 More... Stasis leg ulcer (HCC) [I83.009, L97.909] INVALID FOR* Pruritic disorder [L29.9] INVALID FOR* MIKO (obstructive sleep apnea) [G47.33] INVALID FOR* Pulmonary embolus (HCC) [I26.99] INVALID FOR* Obsessive-compulsive disorder [F42.9] INVALID FOR* Acute congestive heart failure (HCC) [I50.9] INVALID FOR* Prescriptions ordered this encounter Disp Refills Start End FUROSEMIDE 80 MG TABLET 09/23/2017 Class: Med Update Route: ORAL Sig: Take 1 tablet by mouth twice daily. OXYCODONE 5 MG CAPSULE 09/23/2017 09/26/2017 Class: Med Update Route: ORAL Sig: Take 1 capsule by mouth every 6 hours as needed for up to 3 days. Earliest Fill Date: 09/23/17 POLYETHYLENE GLYCOL 3350 17 GRAM/DOS* 1 Benja* 09/23/2017 Class: Med Update Route: ORAL Sig: Take 17 g by mouth once daily. APIXABAN 5 MG TABLET 09/23/2017 Class: Med Update Route: ORAL Sig: Take 1 tablet by mouth twice daily. NUTRITIONAL SUPPLEMENTS ORAL PACKET 09/23/2017 Class: Med Update Route: ORAL Sig: Take 237 mL by mouth twice daily. Medications Discontinued During This Encounter furosemide (LASIX) 40 mg tablet 90 t* 1 09/18/2016 09/15/2017 Route: ORAL Sig: Take 1 tablet by mouth once daily. Disc: Dosage adjustment furosemide (LASIX) 20 mg tablet 120 * 0 08/13/2017 09/15/2017 Sig: TAKE 2 TABLETS BY MOUTH TWICE DAILY Disc: Dosage adjustment Letter Text [facility] [address] [place], [place] [address] Everett Iyer [address] [place], [place] [id number] Clinic #: [id number] 09/15/2017 Dear Mr. Iyer; It was so nice to speak with you today regarding your recent discharge from the hospital and recuperation. Please feel free to call me with any questions or concerns to relay to Dr. Verdugo. If I do not answer, there is a voice mail to leave a message and I'll get back to you as soon as I can. Our Care Coordination program at the [facility] is a way to assist patients after discharge from the hospital, particularly when there are medication changes and possible need for assistance with appointments, etc. We understand that navigating the health care system is confusing and daunting at times and want to assist patients in any way we can. We also have a Pharmacist who can help with your meds and a Business Case Analyst. There is no additional charge for our services and is a way to help patients and their physicians stay more closely connected. Please feel free to call me anytime with any requests or questions you may have. We hope your recovery is speedy and uneventful and know we are here as a resource for you and your family. 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 [address] BEDSIDE GLUCOSE Collected: 09/11/2017 Status: F Source: MARK 9:12 PM [facility] REPOSITORY TYPE CODE TESTS RESULT OUT OF REFERENCE UNITS RANGE LAB L501.080 70-110 mg/dL High BEDSIDE GLU 195 Result Comment: MANAGEMENT OF PATIENT CARE PER NURSING PROTOCOL Performed By: #### L501.080 #### [facility] Point of Care [address] [place] [address] BEDSIDE GLUCOSE Collected: 09/11/2017 Status: F Source: MARK 4:46 PM [facility] REPOSITORY TYPE CODE TESTS RESULT OUT OF REFERENCE UNITS RANGE LAB L501.080 70-110 mg/dL High BEDSIDE GLU 199 Result Comment: MANAGEMENT OF PATIENT CARE PER NURSING PROTOCOL Performed By: #### L501.080 #### [facility] Point of Care [address] [place] [address] BEDSIDE GLUCOSE Collected: 09/11/2017 Status: F Source: MARK 11:44 AM [facility] REPOSITORY TYPE CODE TESTS RESULT OUT OF REFERENCE UNITS RANGE LAB L501.080 70-110 mg/dL High BEDSIDE GLU 152 Result Comment: Dr Nate Followed MANAGEMENT OF PATIENT CARE PER NURSING PROTOCOL Performed By: #### L501.080 #### [facility] Point of Care [address] [place] [address] BEDSIDE GLUCOSE Collected: 09/11/2017 Status: F Source: MARK 6:57 AM [facility] REPOSITORY TYPE CODE TESTS RESULT OUT OF REFERENCE UNITS RANGE LAB L501.080 70-110 mg/dL High BEDSIDE GLU 114 Result Comment: MANAGEMENT OF PATIENT CARE PER NURSING PROTOCOL Performed By: #### L501.080 #### [facility] Point of Care [address] [place] [address] BEDSIDE GLUCOSE Collected: 09/10/2017 Status: F Source: MARK 8:44 PM [facility] REPOSITORY TYPE CODE TESTS RESULT OUT OF REFERENCE UNITS RANGE LAB L501.080 70-110 mg/dL High BEDSIDE GLU 200 Result Comment: MANAGEMENT OF PATIENT CARE PER NURSING PROTOCOL Performed By: #### L501.080 #### [facility] Point of Care [address] [place] [address] BEDSIDE GLUCOSE Collected: 09/10/2017 Status: F Source: MARK 5:05 PM [facility] REPOSITORY TYPE CODE TESTS RESULT OUT OF REFERENCE UNITS RANGE LAB L501.080 70-110 mg/dL High BEDSIDE GLU 167 Result Comment: MANAGEMENT OF PATIENT CARE PER NURSING PROTOCOL Performed By: #### L501.080 #### [facility] Point of Care [address] [place] [address] BEDSIDE GLUCOSE Collected: 09/10/2017 Status: F Source: MARK 10:52 AM [facility] REPOSITORY TYPE CODE TESTS RESULT OUT OF REFERENCE UNITS RANGE LAB L501.080 70-110 mg/dL High BEDSIDE GLU 175 Result Comment: MANAGEMENT OF PATIENT CARE PER NURSING PROTOCOL Performed By: #### L501.080 #### [facility] Point of Care [address] [place] [address] BEDSIDE GLUCOSE Collected: 09/10/2017 Status: F Source: MARK 6:45 AM [facility] REPOSITORY TYPE CODE TESTS RESULT OUT OF RANGE REFERENCE UNITS LAB L501.080 70-110 mg/dL Normal BEDSIDE GLU 95 Result Comment: MANAGEMENT OF PATIENT CARE PER NURSING PROTOCOL Performed By: #### L501.080 #### [facility] Point of Care [address] [place] [address] BEDSIDE GLUCOSE Collected: 09/09/2017 Status: F Source: MARK 8:47 PM [facility] REPOSITORY TYPE CODE TESTS RESULT OUT OF REFERENCE UNITS RANGE LAB L501.080 70-110 mg/dL High BEDSIDE GLU 218 Result Comment: MANAGEMENT OF PATIENT CARE PER NURSING PROTOCOL Performed By: #### L501.080 #### [facility] Point of Care [address] [place] [address] BEDSIDE GLUCOSE Collected: 09/09/2017 Status: F Source: MARK 4:43 PM [facility] REPOSITORY TYPE CODE TESTS RESULT OUT OF REFERENCE UNITS RANGE LAB L501.080 70-110 mg/dL High BEDSIDE GLU 163 Result Comment: MANAGEMENT OF PATIENT CARE PER NURSING PROTOCOL Performed By: #### L501.080 #### [facility] Point of Care [address] [place] [address] BEDSIDE GLUCOSE Collected: 09/09/2017 Status: F Source: MARK 11:15 AM [facility] REPOSITORY TYPE CODE TESTS RESULT OUT OF REFERENCE UNITS RANGE LAB L501.080 70-110 mg/dL High BEDSIDE GLU 153 Result Comment: Dr Orders Followed MANAGEMENT OF PATIENT CARE PER NURSING PROTOCOL Performed By: #### L501.080 #### [facility] Point of Care [address] [place] [address] BEDSIDE GLUCOSE Collected: 09/09/2017 Status: F Source: MARK 6:40 AM [facility] REPOSITORY TYPE CODE TESTS RESULT OUT OF REFERENCE UNITS RANGE LAB L501.080 70-110 mg/dL High BEDSIDE GLU 120 Result Comment: MANAGEMENT OF PATIENT CARE PER NURSING PROTOCOL Performed By: #### L501.080 #### [facility] Point of Care [address] [place] [address] CBC W/DIFF, AUTOMATED Collected: 09/09/2017 Status: F Source: MARK 5:05 AM [facility] REPOSITORY TYPE CODE TESTS RESULT OUT OF RANGE REFERENCE UNITS LAB L100.1000 4.4-11.0 K/mm3 Normal WBC 6.6 LAB L100.1200 4.6-6.2 M/mm3 Low RBC 3.92 LAB L100.1300 13.0-16.5 g/dl Low HGB 10.8 LAB L100.1400 40-54 % Low HCT 35.5 LAB L100.1500 80-94 fL Normal MCV 90.6 LAB L100.1600 27.0-32.0 pg Normal MCH 27.6 LAB L100.1700 32-36 g/gl Low MCHC 30.4 LAB L100.1810 11.6-14.6 % High RDW CV 15.2 LAB L100.1820 35.1-43.9 fl High RDW SD 49.5 LAB L100.1900 150-450 K/mm3 Normal PLT 247 LAB L100.2000 6.2-12.0 fl Normal MPV 9.3 LAB L100.2100 47-70 % High NEUT% 70.8 LAB L100.2200 19-41 % Low LY% 15.5 LAB L100.2300 0-10 % Normal MONO% 8.1 LAB L100.2400 0-5 % Normal EO% 4.8 LAB L100.2500 0-1 % Normal BASO% 0.5 LAB L100.2550 0.0-0.9 % Normal IM GRAN % 0.300 Result Comment: IG% - Immature Granulocytes (promyelocytes, myelocytes and metamyelocytes) > 1% indicates that a LEFT SHIFT is Present. LAB L100.2620 2.0-7.7 X10 3/uL Normal Absolute Neut 4.7 LAB L100.2720 0.83-4.51 X10 3/ul Normal Absolute Lymph 1.03 Performed By: #### L100.0100 #### [facility] [address] [place], [address] BASIC METABOLIC Collected: 09/09/2017 Status: F Source: MARK PROFILE (BMP) 5:05 AM [facility] REPOSITORY TYPE CODE TESTS RESULT OUT OF RANGE REFERENCE UNITS LAB L501.0100 74-106 mg/dL Normal GLU 98 Result Comment: Please note revised GLUCOSE reference range effective 2017. LAB L501.1000 7-18 mg/dL High BUN 67 LAB L501.1100 0.70-1.30 mg/dL High CREAT,SERUM 1.45 Result Comment: The validity of the calculated GFR AND GFRAA in patients over 70 years has not been determined. Clinical correlation is essential. LAB L501.1110 >60 mL/min Low EST GFR 51 Result Comment: Non- GFR Calc LAB L501.1115 >60 mL/min Normal EST GFR - AA 61 Result Comment: GFR Calc LAB L501.1255 ml/min Normal Estimated CRCL 43.24 LAB L501.1300 10-20 RATIO High BUN/CRE 46.2 LAB L501.2200 8.5-10 mg/dL Normal .1 CA 9.3 LAB L501.5300 136-14 mmol/L Normal 5 NA 140 LAB L501.5600 3.5-5. mmol/L Normal 1 K 4.1 LAB L501.5900 98-107 mmol/L Low CL 95 LAB L501.6100 21.0-3 mmol/L High 2.0 CO2 39.0 LAB L501.6200 5-15 Normal GAP 6 Performed By: #### L500.2500 #### [facility] [address] [facility] [place], [address] HOME HEALTH PROGRESS Observed: 09/08/2017 Status: F Source: [place] NOTE 9:24 PM [facility] REPOSITORY [facility] Medical Records Department [address] [place] [address] Home Health Progress Note [id number] Encounter Encounter Date: 09/08/172122 MR#: [id number] Acct: [id number] Name: EVERETT IYER Rep #: [id number] : 1945 72 From: Teo Barr MD PCP: Jack Verdugo MD Status: ADM IN Location: [place] [address] Home Health Note - Plan Overview of reason of hospitalization: The patient is a 72 year old Male with below past medical history hospitalized for acute on chronic diastolic heart failure, complicated by iron deficiency anemia, bilateral lower extremity venous stasis dermatitis masquerading as bilateral lower extremity cellulitis, admitted to TCU with debility, here for rehabilitation, strengthening, prior to discharge home with spouse. [] Discharge home with spouse, and Home Health Services. Problems: Patient was seen for (Last Reviewed 09/08/17 @ 15:22 by Halima Apple) Shortness of breath (Acute) Acute on chronic diastolic heart failure (Acute) Bilateral lower leg cellulitis (Acute) Venous stasis dermatitis (Chronic) Anemia (Chronic) Osteoarthritis (Chronic) Coronary artery disease (Chronic) Chronic kidney disease (Chronic) Diabetes mellitus (Chronic) Lymphedema (Chronic) Hyperlipidemia (Chronic) Super obesity (Chronic) Sleep apnea (Chronic) Pulmonary embolism (Chronic) Gout (Chronic) Depression (Acute) Ulcer of right lower extremity with fat layer exposed (Chronic) Ulcer of left lower extremity with fat layer exposed (Chronic) Bilateral leg edema (Chronic) Tinea unguium (Chronic) Diabetes mellitus with neuropathy (Chronic) Delayed wound healing (Chronic) Complete List of Medical Problems (Last Reviewed 09/08/17 @ 15:22 by Halima Apple) Shortness of breath (Acute) Acute on chronic diastolic heart failure (Acute) Bilateral lower leg cellulitis (Acute) Venous stasis dermatitis (Chronic) Anemia (Chronic) Osteoarthritis (Chronic) Coronary artery disease (Chronic) Chronic kidney disease (Chronic) Diabetes mellitus (Chronic) Lymphedema (Chronic) Hyperlipidemia (Chronic) Super obesity (Chronic) Sleep apnea (Chronic) Pulmonary embolism (Chronic) Gout (Chronic) Depression (Acute) Ulcer of right lower extremity with fat layer exposed (Chronic) Ulcer of left lower extremity with fat layer exposed (Chronic) Bilateral leg edema (Chronic) Tinea unguium (Chronic) Diabetes mellitus with neuropathy (Chronic) Delayed wound healing (Chronic) Open wound, lower leg (Acute) Acute on chronic respiratory failure with hypoxia and hypercapnia (Acute) CKD (chronic kidney disease), stage II (Chronic) CHF exacerbation (Acute) Wheezing (Chronic) Dyspnea (Acute) MIKO (obstructive sleep apnea) (Chronic) HTN (hypertension) (Chronic) BPH (benign prostatic hypertrophy) (Chronic) Tinea unguium (Chronic) Diabetes mellitus with neuropathy (Chronic) Leg swelling (Chronic) Edema of both legs (Acute) Lymphedema of leg (Chronic) Multiple excoriations (Chronic) Asthma (Chronic) COPD (chronic obstructive pulmonary disease) (Chronic) Arthritis (Chronic) Immobility (Chronic) Pulmonary embolism on right (Chronic) Adynamic ileus (Chronic) Ventral hernia (Chronic) Hypoglycemia (Chronic) Peripheral neuropathy (Chronic) Chronic anemia (Chronic) Benign essential hypertension (Chronic) Benign prostatic hypertrophy without urinary obstruction (Chronic) CKD (chronic kidney disease), stage II (Chronic) CHF (congestive heart failure) (Chronic) CAD (coronary artery disease) (Chronic) Type II diabetes mellitus (Chronic) GERD (gastroesophageal reflux disease) (Chronic) Hypercholesteremia (Chronic) Morbid obesity (Chronic) Pulmonary hypertension (Chronic) H/O aortic valve replacement (Chronic) S/P AAA repair (Chronic) Venous insufficiency (Chronic) Tinea unguium (Chronic) - Requirements and Reasons Disciplines Needed/Ordered: [facility], Physical Therapy Reason for Disciplines: Disease Specific Monitoring/education, Medication Management/Knowledge Deficit, Wound Care, Gait Training, Stair Training, Fall Prevention, Home Safety/Equipment Instruction, Balance and/or Posture Training, Transfer Training Related To: Limited/Poor Endurance, Shortness of Breath with Activity, Physical Impairments, Unsteady Gait/Balance, Fall Risk Patient is unable to leave the home: Without Aid of Supportive Devices (crutches, cane, wheelchair, walker), Without the assistance of another person - Additional Disciplines Additional Disciplines Needed/Ordered: Occupational Therapy, Home Health Aide 09/08/172123 <Electronically signed by Teo Barr MD> Date Teo Barr MD Cosigner Signature (if indicated): Date CC: Signed DISCHARGE SUMMARY Observed: 09/08/2017 Status: F Source: [place] 9:23 PM [facility] REPOSITORY [facility] Medical Records Department [address] [place] [address] Discharge Summary 09/08/172117 MR#: [id number] Acct: [id number] Name: EVERETT IYER Rep #: [id number] : 1945 72 From: Teo Barr MD PCP: Jack Verdugo MD Status: ADM IN Y Location: [place] [address] Discharge Date and Diagnosis - Problem List Patient Problems: Active and Suspected Problems (Last Reviewed 09/08/17 @ 15:22 by Halima Apple) Shortness of breath (Acute) Acute on chronic diastolic heart failure (Acute) Bilateral lower leg cellulitis (Acute) Depression (Acute) Date of Admission: 08/28/17 - date of podiatry evaluation Date of Discharge: 09/12/17 - Primary Discharge Diagnosis Active and Suspected Problems (Last Reviewed 09/08/17 @ 15:22 by Halima Apple) Shortness of breath (Acute) Acute on chronic diastolic heart failure (Acute) Bilateral lower leg cellulitis (Acute) Depression (Acute) - Secondary Discharge Diagnosis Chronic Problems (Last Reviewed 09/08/17 @ 15:22 by Halima Apple) Venous stasis dermatitis (Chronic) Anemia (Chronic) Osteoarthritis (Chronic) Coronary artery disease (Chronic) Chronic kidney disease (Chronic) Diabetes mellitus (Chronic) Lymphedema (Chronic) Hyperlipidemia (Chronic) Super obesity (Chronic) Sleep apnea (Chronic) Pulmonary embolism (Chronic) Gout (Chronic) Ulcer of right lower extremity with fat layer exposed (Chronic) Ulcer of left lower extremity with fat layer exposed (Chronic) Bilateral leg edema (Chronic) Tinea unguium (Chronic) Diabetes mellitus with neuropathy (Chronic) Delayed wound healing (Chronic) CKD (chronic kidney disease), stage II (Chronic) Wheezing (Chronic) MIKO (obstructive sleep apnea) (Chronic) HTN (hypertension) (Chronic) BPH (benign prostatic hypertrophy) (Chronic) Tinea unguium (Chronic) Diabetes mellitus with neuropathy (Chronic) Leg swelling (Chronic) Lymphedema of leg (Chronic) Multiple excoriations (Chronic) Asthma (Chronic) COPD (chronic obstructive pulmonary disease) (Chronic) Arthritis (Chronic) Immobility (Chronic) 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 Patient was educated on the signs and symptoms of bleeding as such as hemoptysis, hematemesis, hematochezia or melena stools. Patient has been advised to watch for these symptoms contact the office if they present. Follow-up with Dr. Clay in approximately 8 weeks as previously scheduled. Adynamic ileus (Chronic) Ventral hernia (Chronic) Hypoglycemia (Chronic) Peripheral neuropathy (Chronic) Chronic anemia (Chronic) Benign essential hypertension (Chronic) Benign prostatic hypertrophy without urinary obstruction (Chronic) CKD (chronic kidney disease), stage II (Chronic) CHF (congestive heart failure) (Chronic) CAD (coronary artery disease) (Chronic) Type II diabetes mellitus (Chronic) GERD (gastroesophageal reflux disease) (Chronic) Hypercholesteremia (Chronic) Morbid obesity (Chronic) Pulmonary hypertension (Chronic) H/O aortic valve replacement (Chronic) S/P AAA repair (Chronic) Venous insufficiency (Chronic) Tinea unguium (Chronic) Hospital Course and Treatment Imaging Results: 08/24/17 19:20 Diet: Cardiac: Calorie-Controlled Food consistency:: Regular Liquid Consistency:: Regular/Thin Dietary Modifications:: Fluid Restricted Diet Diet Comments: Carb control, low sodium, fluid restriction 1500 How many daily calories?: 1800 calorie Labs (Last 48 Hours) POC Glucose 103 230 H 139 H POC Glucose 209 H 114 H 151 H POC Glucose 163 H 191 H Consultations 08/24/17 Consult: Onc/Wound/family practitioner Routine Comment: Operations: None Procedures: None Summary of Care Provided: The patient is a 72 year old Male with below past medical history hospitalized for acute on chronic diastolic heart failure, complicated by iron deficiency anemia, bilateral lower extremity venous stasis dermatitis masquerading as bilateral lower extremity cellulitis, admitted to TCU with debility, here for rehabilitation, strengthening, prior to discharge home with spouse. [] Discharge home with spouse, and Home Health Services. Discharge Diet: No Restrictions Discharge Activity: Return to Normal Activity, May Shower, Use Walker Weight Bearing Status: Weight bearing as tolerated Call your doctor if you observe: Fever of 101 or Higher, Inability to urinate, Inability to have a bowel movement, Shortness of breath, Chest pain, Uncontrolled pain Home Medications: Medications to take at Discharge Allopurinol [Zyloprim] 300 mg PO DAILY 03/30/17 Atorvastatin Calcium [Lipitor] 40 mg PO QHS 03/30/17 Clonidine Patch [Catapres-Tts3] 0.3 mg TOPICAL FR 03/30/17 Clopidogrel Bisulfate [Plavix] 75 mg PO DAILY 03/30/17 Ferrous Sulfate 325 mg PO DAILY@0800 03/30/17 Finasteride [Proscar] 5 mg PO DAILY 03/30/17 Glimepiride [Amaryl] 8 mg PO BREAKFAST 03/30/17 Hydroxyzine HCl 25 mg PO TID PRN 03/30/17 Insulin Glargine [Lantus SoloStar Pen] 30 units PO BID 03/30/17 Lansoprazole 15 mg PO DAILY 03/30/17 Losartan Potassium 100 mg PO DAILY 03/30/17 Magnesium Oxide [Mag-Ox 400] 800 mg PO BID 03/30/17 Metformin HCl [Glucophage] 500 mg PO TID 03/30/17 Metoprolol Tartrate [Lopressor (beta maryam)] 50 mg PO BID 03/30/17 Multivitamins,Therapeutic [Multivitamin] 1 tab PO DAILY@0800 03/30/17 Sertraline HCl [Zoloft] 50 mg PO QHS 03/30/17 Spironolactone 25 mg PO BID 03/30/17 Terazosin HCl [Hytrin] 10 mg PO QHS 03/30/17 albuterol sulfate HFA 90 mcg/actuation aerosol inhaler 2 puff PO Q6H PRN PRN #18 g 08/05/17 Fluticasone/Salmeterol [Advair 500-50 Diskus] 2 puff INHALATION Q12H 08/20/17 Sertraline HCl [Zoloft] 100 mg PO DAILY 08/20/17 Acetaminophen [Tylenol] 1,000 mg PO Q8H PRN PRN tablet 09/08/17 Apixaban [Eliquis] 5 mg PO BID #60 tab 09/08/17 Furosemide [Lasix] 80 mg PO BID #60 tab 09/08/17 Nutritional Supplement [Candido - ORANGE FLAVOR] 1 packet PO BIDCM #60 packet 09/08/17 Nystatin Powder [Mycostatin Powder] 1 applic TOPICAL 0600,2200 bottle 09/08/17 Oxycodone [Oxyir] 5 mg PO Q4H PRN PRN #10 tab 09/08/17 Polyethylene Glycol 3350 [Miralax] 17 gm PO DAILY #30 packet 09/08/17 Following Prescrptions Were Given to Patient: Oxycodone [Oxyir] 5 mg PO Q4H PRN PRN #10 tab PRN Reason: Moderate Pain (pain scale 4-5) Polyethylene Glycol 3350 [Miralax] 17 gm PO DAILY #30 packet Apixaban [Eliquis] 5 mg PO BID #60 tab Furosemide [Lasix] 80 mg PO BID #60 tab Nutritional Supplement [Candido - ORANGE FLAVOR] 1 packet PO BIDCM #60 packet Primary Care Physician: Jack Verdugo MD [Primary Care Provider] - Please follow up with your Primary Care Physician in: 1 week. Please Follow Up With: Dr Raymundo When: 2 weeks. Please Follow Up With: Dr Raymundo Disposition: Home with Home Health Minutes spent on discharge:: 35 Patient Condition:: Stable Medical Necessity - Tobacco Use Smoking Status: Former smoker Tobacco Use: Non-smoker Meaningful Use Info Meaningful Use Diagnoses (Choose all that apply): CHF - CHF MIKE/ARB ordered at discharge?: Yes Documented LVEF (%): 60 09/08/172122 <Electronically signed by Teo Barr MD> Date Teo Barr MD Cosigner Signature (if applicable): Date CC: Teo Barr MD; Jack Verdugo MD Signed DISCHARGE INSTRUCTION Observed: 09/08/2017 Status: F Source: [place] 9:18 PM [facility] REPOSITORY [facility] Medical Records Department [address] [place] [id number] Instructions for Home/Discharge Instructions 09/08/172115 MR#: [id number] Acct: [id number] Name: EVERETT IYER Rep #: [id number] : 1945 72 From: Teo Barr MD PCP: Jack Verdugo MD Status: ADM IN - Discharge Diagnoses Current Active Problems: Current Active and Chronic Problems (Last Reviewed 09/08/17 @ 15:22 by Halima Apple) Shortness of breath (Acute) Acute on chronic diastolic heart failure (Acute) Bilateral lower leg cellulitis (Acute) Venous stasis dermatitis (Chronic) Anemia (Chronic) Osteoarthritis (Chronic) Coronary artery disease (Chronic) Chronic kidney disease (Chronic) Diabetes mellitus (Chronic) Lymphedema (Chronic) Hyperlipidemia (Chronic) Super obesity (Chronic) Sleep apnea (Chronic) Pulmonary embolism (Chronic) Gout (Chronic) Depression (Acute) Ulcer of right lower extremity with fat layer exposed (Chronic) Ulcer of left lower extremity with fat layer exposed (Chronic) Bilateral leg edema (Chronic) Tinea unguium (Chronic) Diabetes mellitus with neuropathy (Chronic) Delayed wound healing (Chronic) You will use the following diet at home:: No restrictions, Regular Your food should be the consistency of: Regular Your liquids should be the consistency of: Regular/Thin Discharge Activity: Return to Normal Activity, May Shower, Use Walker Weight Bearing Status: Weight bearing as tolerated Call your doctor if you observe: Fever of 101 or Higher, Inability to urinate, Inability to have a bowel movement, Shortness of breath, Chest pain, Uncontrolled pain Allergies/Adverse Reactions: Allergies naphazoline HCl [From Naphcon] Allergy (Severe, Verified 09/08/17 15:11) affected his breathing AFFECTED HIS BREATHING amlodipine besylate [From Norvasc] Allergy (Verified 09/08/17 15:11) Other dextromethorphan Allergy (Verified 09/08/17 15:11) Other levofloxacin [From Levaquin] Adverse Reaction (Mild, Verified 09/08/17 15:11) made me hyperactive made me hyperactive Medications to take at Discharge Allopurinol [Zyloprim] 300 mg PO DAILY 03/30/17 Atorvastatin Calcium [Lipitor] 40 mg PO QHS 03/30/17 Clonidine Patch [Catapres-Tts3] 0.3 mg TOPICAL FR 03/30/17 Clopidogrel Bisulfate [Plavix] 75 mg PO DAILY 03/30/17 Ferrous Sulfate 325 mg PO DAILY@0800 03/30/17 Finasteride [Proscar] 5 mg PO DAILY 03/30/17 Glimepiride [Amaryl] 8 mg PO BREAKFAST 03/30/17 Hydroxyzine HCl 25 mg PO TID PRN 03/30/17 Insulin Glargine [Lantus SoloStar Pen] 30 units PO BID 03/30/17 Lansoprazole 15 mg PO DAILY 03/30/17 Losartan Potassium 100 mg PO DAILY 03/30/17 Magnesium Oxide [Mag-Ox 400] 800 mg PO BID 03/30/17 Metformin HCl [Glucophage] 500 mg PO TID 03/30/17 Metoprolol Tartrate [Lopressor (beta maryam)] 50 mg PO BID 03/30/17 Multivitamins,Therapeutic [Multivitamin] 1 tab PO DAILY@0800 03/30/17 Sertraline HCl [Zoloft] 50 mg PO QHS 03/30/17 Spironolactone 25 mg PO BID 03/30/17 Terazosin HCl [Hytrin] 10 mg PO QHS 03/30/17 albuterol sulfate HFA 90 mcg/actuation aerosol inhaler 2 puff PO Q6H PRN PRN #18 g 08/05/17 Fluticasone/Salmeterol [Advair 500-50 Diskus] 2 puff INHALATION Q12H 08/20/17 Sertraline HCl [Zoloft] 100 mg PO DAILY 08/20/17 Acetaminophen [Tylenol] 1,000 mg PO Q8H PRN PRN tablet 09/08/17 Apixaban [Eliquis] 5 mg PO BID #60 tab 09/08/17 Furosemide [Lasix] 80 mg PO BID #60 tab 09/08/17 Nutritional Supplement [Candido - ORANGE FLAVOR] 1 packet PO BIDCM #60 packet 09/08/17 Nystatin Powder [Mycostatin Powder] 1 applic TOPICAL 0600,2200 bottle 09/08/17 Oxycodone [Oxyir] 5 mg PO Q4H PRN PRN #10 tab 09/08/17 Polyethylene Glycol 3350 [Miralax] 17 gm PO DAILY #30 packet 09/08/17 The following prescriptions were given: Oxycodone [Oxyir] 5 mg PO Q4H PRN PRN #10 tab PRN Reason: Moderate Pain (pain scale 4-5) Polyethylene Glycol 3350 [Miralax] 17 gm PO DAILY #30 packet Apixaban [Eliquis] 5 mg PO BID #60 tab Furosemide [Lasix] 80 mg PO BID #60 tab Nutritional Supplement [Candido - ORANGE FLAVOR] 1 packet PO BIDCM #60 packet Primary Care Physician: Jack Verdugo MD [Primary Care Provider] - Please follow up with your Primary Care Physician in: 1 week. Please Follow Up With: Dr Raymundo When: 2 weeks. Please Follow Up With: Dr Raymundo Proposed Discharge Date: 09/12/17 09/08/172117 <Electronically signed by Teo Barr MD> Date Teo Barr MD CC: Elenita Rogers DPM; Jack Verdugo MD BEDSIDE GLUCOSE Collected: 09/08/2017 Status: F Source: [facility] 9:06 PM [facility] REPOSITORY TYPE CODE TESTS RESULT OUT OF REFERENCE UNITS RANGE LAB L501.080 70-110 mg/dL High BEDSIDE GLU 191 Result Comment: MANAGEMENT OF PATIENT CARE PER NURSING PROTOCOL Performed By: #### L501.080 #### [facility] Point of Care [address] [place] [address] BEDSIDE GLUCOSE Collected: 09/08/2017 Status: F Source: [facility] 5:04 PM [facility] REPOSITORY TYPE CODE TESTS RESULT OUT OF REFERENCE UNITS RANGE LAB L501.080 70-110 mg/dL High BEDSIDE GLU 163 Result Comment: MANAGEMENT OF PATIENT CARE PER NURSING PROTOCOL Performed By: #### L501.080 #### [facility] Point of Care [address] [place] [address] BEDSIDE GLUCOSE Collected: 09/08/2017 Status: F Source: [place] 11:24 AM [facility] REPOSITORY TYPE CODE TESTS RESULT OUT OF REFERENCE UNITS RANGE LAB L501.080 70-110 mg/dL High BEDSIDE GLU 151 Result Comment: Dr Orders Followed MANAGEMENT OF PATIENT CARE PER NURSING PROTOCOL Performed By: #### L501.080 #### [facility] Point of Care [address] [place] [address] BEDSIDE GLUCOSE Collected: 09/08/2017 Status: F Source: [place] 6:45 AM [facility] REPOSITORY TYPE CODE TESTS RESULT OUT OF REFERENCE UNITS RANGE LAB L501.080 70-110 mg/dL High BEDSIDE GLU 114 Result Comment: MANAGEMENT OF PATIENT CARE PER NURSING PROTOCOL Performed By: #### L501.080 #### [facility] Point of Care [address] [place] [address] BEDSIDE GLUCOSE Collected: 09/07/2017 Status: F Source: [place] 9:04 PM [facility] REPOSITORY TYPE CODE TESTS RESULT OUT OF REFERENCE UNITS RANGE LAB L501.080 70-110 mg/dL High BEDSIDE GLU 209 Result Comment: MANAGEMENT OF PATIENT CARE PER NURSING PROTOCOL Performed By: #### L501.080 #### [facility] Point of Care [address] [place] [address] BEDSIDE GLUCOSE Collected: 09/07/2017 Status: F Source: [place] 4:56 PM [facility] REPOSITORY TYPE CODE TESTS RESULT OUT OF REFERENCE UNITS RANGE LAB L501.080 70-110 mg/dL High BEDSIDE GLU 139 Result Comment: MANAGEMENT OF PATIENT CARE PER NURSING PROTOCOL Performed By: #### L501.080 #### [facility] Point of Care [address] [place] [address] BEDSIDE GLUCOSE Collected: 09/07/2017 Status: F Source: [place] 11:10 AM [facility] REPOSITORY TYPE CODE TESTS RESULT OUT OF REFERENCE UNITS RANGE LAB L501.080 70-110 mg/dL High BEDSIDE GLU 230 Result Comment: MANAGEMENT OF PATIENT CARE PER NURSING PROTOCOL Performed By: #### L501.080 #### [facility] Point of Care [address] [place] [address] BEDSIDE GLUCOSE Collected: 09/07/2017 Status: F Source: [facility] 6:46 AM [facility] REPOSITORY TYPE CODE TESTS RESULT OUT OF RANGE REFERENCE UNITS LAB L501.080 70-110 mg/dL Normal BEDSIDE GLU 103 Result Comment: MANAGEMENT OF PATIENT CARE PER NURSING PROTOCOL Performed By: #### L501.080 #### [facility] Point of Care [address] [place] [address] BEDSIDE GLUCOSE Collected: 09/06/2017 Status: F Source: [place] 8:43 PM [facility] REPOSITORY TYPE CODE TESTS RESULT OUT OF REFERENCE UNITS RANGE LAB L501.080 70-110 mg/dL High BEDSIDE GLU 200 Result Comment: MANAGEMENT OF PATIENT CARE PER NURSING PROTOCOL Performed By: #### L501.080 #### [facility] Point of Care [address] [place] [address] BEDSIDE GLUCOSE Collected: 09/06/2017 Status: F Source: [place] 4:51 PM [facility] REPOSITORY TYPE CODE TESTS RESULT OUT OF REFERENCE UNITS RANGE LAB L501.080 70-110 mg/dL High BEDSIDE GLU 159 Result Comment: MANAGEMENT OF PATIENT CARE PER NURSING PROTOCOL Performed By: #### L501.080 #### [facility] Point of Care [address] [place], [place] [id number] BEDSIDE GLUCOSE Collected: 09/06/2017 Status: F Source: [place] 11:14 AM [facility] REPOSITORY TYPE CODE TESTS RESULT OUT OF REFERENCE UNITS RANGE LAB L501.080 70-110 mg/dL High BEDSIDE GLU 145 Result Comment: MANAGEMENT OF PATIENT CARE PER NURSING PROTOCOL Performed By: #### L501.080 #### [facility] Point of Care [address] [place] [address] BEDSIDE GLUCOSE Collected: 09/06/2017 Status: F Source: [place] 6:59 AM [facility] REPOSITORY TYPE CODE TESTS RESULT OUT OF REFERENCE UNITS RANGE LAB L501.080 70-110 mg/dL High BEDSIDE GLU 118 Result Comment: MANAGEMENT OF PATIENT CARE PER NURSING PROTOCOL Performed By: #### L501.080 #### [facility] Point of Care [address] [place] [address] BEDSIDE GLUCOSE Collected: 09/05/2017 Status: F Source: [place] 8:55 PM [facility] REPOSITORY TYPE CODE TESTS RESULT OUT OF REFERENCE UNITS RANGE LAB L501.080 70-110 mg/dL High BEDSIDE GLU 226 Result Comment: MANAGEMENT OF PATIENT CARE PER NURSING PROTOCOL Performed By: #### L501.080 #### [facility] Point of Care [address] [place] [address] BEDSIDE GLUCOSE Collected: 09/05/2017 Status: F Source: [place] 4:26 PM [facility] REPOSITORY TYPE CODE TESTS RESULT OUT OF REFERENCE UNITS RANGE LAB L501.080 70-110 mg/dL High BEDSIDE GLU 177 Result Comment: MANAGEMENT OF PATIENT CARE PER NURSING PROTOCOL Performed By: #### L501.080 #### [facility] Point of Care [address] [place] [address] BEDSIDE GLUCOSE Collected: 09/05/2017 Status: F Source: [place] 11:19 AM [facility] REPOSITORY TYPE CODE TESTS RESULT OUT OF REFERENCE UNITS RANGE LAB L501.080 70-110 mg/dL High BEDSIDE GLU 181 Result Comment: MANAGEMENT OF PATIENT CARE PER NURSING PROTOCOL Performed By: #### L501.080 #### [facility] Point of Care [address] [place] [address] BEDSIDE GLUCOSE Collected: 09/05/2017 Status: F Source: [place] 6:50 AM [facility] REPOSITORY TYPE CODE TESTS RESULT OUT OF REFERENCE UNITS RANGE LAB L501.080 70-110 mg/dL High BEDSIDE GLU 131 Result Comment: MANAGEMENT OF PATIENT CARE PER NURSING PROTOCOL Performed By: #### L501.080 #### [facility] Point of Care [address] [place] [address] BEDSIDE GLUCOSE Collected: 09/04/2017 Status: F Source: [place] 9:17 PM [facility] REPOSITORY TYPE CODE TESTS RESULT OUT OF REFERENCE UNITS RANGE LAB L501.080 70-110 mg/dL High BEDSIDE GLU 191 Result Comment: MANAGEMENT OF PATIENT CARE PER NURSING PROTOCOL Performed By: #### L501.080 #### [facility] Point of Care [address] [place] [address] BEDSIDE GLUCOSE Collected: 09/04/2017 Status: F Source: [place] 5:02 PM [facility] REPOSITORY TYPE CODE TESTS RESULT OUT OF REFERENCE UNITS RANGE LAB L501.080 70-110 mg/dL High BEDSIDE GLU 151 Result Comment: MANAGEMENT OF PATIENT CARE PER NURSING PROTOCOL Performed By: #### L501.080 #### [facility] Point of Care [address] [place] [address] BEDSIDE GLUCOSE Collected: 09/04/2017 Status: F Source: [place] 11:09 AM [facility] REPOSITORY TYPE CODE TESTS RESULT OUT OF REFERENCE UNITS RANGE LAB L501.080 70-110 mg/dL High BEDSIDE GLU 169 Result Comment: MANAGEMENT OF PATIENT CARE PER NURSING PROTOCOL Performed By: #### L501.080 #### [facility] Point of Care [address] [place] [address] BEDSIDE GLUCOSE Collected: 09/04/2017 Status: F Source: [place] 6:33 AM [facility] REPOSITORY TYPE CODE TESTS RESULT OUT OF RANGE REFERENCE UNITS LAB L501.080 70-110 mg/dL Normal BEDSIDE GLU 87 Result Comment: MANAGEMENT OF PATIENT CARE PER NURSING PROTOCOL Performed By: #### L501.080 #### [facility] Point of Care [address] [place] [address] BEDSIDE GLUCOSE Collected: 09/03/2017 Status: F Source: [place] 9:03 PM [facility] REPOSITORY TYPE CODE TESTS RESULT OUT OF REFERENCE UNITS RANGE LAB L501.080 70-110 mg/dL High BEDSIDE GLU 213 Result Comment: MANAGEMENT OF PATIENT CARE PER NURSING PROTOCOL Performed By: #### L501.080 #### [facility] Point of Care [address] [place] [address] BEDSIDE GLUCOSE Collected: 09/03/2017 Status: F Source: [place] 4:46 PM [facility] REPOSITORY TYPE CODE TESTS RESULT OUT OF REFERENCE UNITS RANGE LAB L501.080 70-110 mg/dL High BEDSIDE GLU 138 Result Comment: MANAGEMENT OF PATIENT CARE PER NURSING PROTOCOL Performed By: #### L501.080 #### [facility] Point of Care [address] [place] [address] BEDSIDE GLUCOSE Collected: 09/03/2017 Status: F Source: [place] 11:29 AM [facility] REPOSITORY TYPE CODE TESTS RESULT OUT OF REFERENCE UNITS RANGE LAB L501.080 70-110 mg/dL High BEDSIDE GLU 123 Result Comment: MANAGEMENT OF PATIENT CARE PER NURSING PROTOCOL Performed By: #### L501.080 #### [facility] Point of Care [address] [place] [address] BEDSIDE GLUCOSE Collected: 09/03/2017 Status: F Source: MARK 6:25 AM [facility] REPOSITORY TYPE CODE TESTS RESULT OUT OF REFERENCE UNITS RANGE LAB L501.080 70-110 mg/dL High BEDSIDE GLU 143 Result Comment: MANAGEMENT OF PATIENT CARE PER NURSING PROTOCOL Performed By: #### L501.080 #### [facility] Point of Care [address] [place] [address] BEDSIDE GLUCOSE Collected: 09/02/2017 Status: F Source: MARK 8:58 PM [facility] REPOSITORY TYPE CODE TESTS RESULT OUT OF REFERENCE UNITS RANGE LAB L501.080 70-110 mg/dL High BEDSIDE GLU 186 Result Comment: MANAGEMENT OF PATIENT CARE PER NURSING PROTOCOL Performed By: #### L501.080 #### [facility] Point of Care [address] [place] [address] BEDSIDE GLUCOSE Collected: 09/02/2017 Status: F Source: MARK 4:57 PM [facility] REPOSITORY TYPE CODE TESTS RESULT OUT OF REFERENCE UNITS RANGE LAB L501.080 70-110 mg/dL High BEDSIDE GLU 172 Result Comment: MANAGEMENT OF PATIENT CARE PER NURSING PROTOCOL Performed By: #### L501.080 #### [facility] Point of Care [address] [place] [address] BEDSIDE GLUCOSE Collected: 09/02/2017 Status: F Source: MARK 11:24 AM [facility] REPOSITORY TYPE CODE TESTS RESULT OUT OF REFERENCE UNITS RANGE LAB L501.080 70-110 mg/dL High BEDSIDE GLU 154 Result Comment: Dr Orders Followed MANAGEMENT OF PATIENT CARE PER NURSING PROTOCOL Performed By: #### L501.080 #### [facility] Point of Care [address] [place] [address] BEDSIDE GLUCOSE Collected: 09/02/2017 Status: F Source: MARK 6:33 AM [facility] REPOSITORY TYPE CODE TESTS RESULT OUT OF REFERENCE UNITS RANGE LAB L501.080 70-110 mg/dL High BEDSIDE GLU 135 Result Comment: MANAGEMENT OF PATIENT CARE PER NURSING PROTOCOL Performed By: #### L501.080 #### [facility] Point of Care [address] [place] [address] BEDSIDE GLUCOSE Collected: 09/01/2017 Status: F Source: MARK 8:59 PM [facility] REPOSITORY TYPE CODE TESTS RESULT OUT OF REFERENCE UNITS RANGE LAB L501.080 70-110 mg/dL High BEDSIDE GLU 176 Result Comment: MANAGEMENT OF PATIENT CARE PER NURSING PROTOCOL Performed By: #### L501.080 #### [facility] Point of Care [address] [place] [address] BEDSIDE GLUCOSE Collected: 09/01/2017 Status: F Source: MARK 5:02 PM [facility] REPOSITORY TYPE CODE TESTS RESULT OUT OF REFERENCE UNITS RANGE LAB L501.080 70-110 mg/dL High BEDSIDE GLU 156 Result Comment: MANAGEMENT OF PATIENT CARE PER NURSING PROTOCOL Performed By: #### L501.080 #### [facility] Point of Care [address] [place] [address] BEDSIDE GLUCOSE Collected: 09/01/2017 Status: F Source: MARK 11:01 AM [facility] REPOSITORY TYPE CODE TESTS RESULT OUT OF REFERENCE UNITS RANGE LAB L501.080 70-110 mg/dL High BEDSIDE GLU 183 Result Comment: MANAGEMENT OF PATIENT CARE PER NURSING PROTOCOL Performed By: #### L501.080 #### [facility] Point of Care [address] [place] [address] BEDSIDE GLUCOSE Collected: 09/01/2017 Status: F Source: MARK 6:44 AM [facility] REPOSITORY TYPE CODE TESTS RESULT OUT OF REFERENCE UNITS RANGE LAB L501.080 70-110 mg/dL High BEDSIDE GLU 135 Result Comment: MANAGEMENT OF PATIENT CARE PER NURSING PROTOCOL Performed By: #### L501.080 #### [facility] Point of Care [address] [place] [address] BEDSIDE GLUCOSE Collected: 08/31/2017 Status: F Source: MARK 9:16 PM [facility] REPOSITORY TYPE CODE TESTS RESULT OUT OF REFERENCE UNITS RANGE LAB L501.080 70-110 mg/dL High BEDSIDE GLU 223 Result Comment: MANAGEMENT OF PATIENT CARE PER NURSING PROTOCOL Performed By: #### L501.080 #### [facility] Point of Care [address] [place] [address] BEDSIDE GLUCOSE Collected: 08/31/2017 Status: F Source: MARK 4:43 PM [facility] REPOSITORY TYPE CODE TESTS RESULT OUT OF REFERENCE UNITS RANGE LAB L501.080 70-110 mg/dL High BEDSIDE GLU 160 Result Comment: MANAGEMENT OF PATIENT CARE PER NURSING PROTOCOL Performed By: #### L501.080 #### [facility] Point of Care [address] [place] [address] BEDSIDE GLUCOSE Collected: 08/31/2017 Status: F Source: MARK 11:34 AM [facility] REPOSITORY TYPE CODE TESTS RESULT OUT OF REFERENCE UNITS RANGE LAB L501.080 70-110 mg/dL High BEDSIDE GLU 135 Result Comment: MANAGEMENT OF PATIENT CARE PER NURSING PROTOCOL Performed By: #### L501.080 #### [facility] Point of Care [address] [place] [address] BEDSIDE GLUCOSE Collected: 08/31/2017 Status: F Source: MARK 6:15 AM [facility] REPOSITORY TYPE CODE TESTS RESULT OUT OF RANGE REFERENCE UNITS LAB L501.080 70-110 mg/dL Normal BEDSIDE GLU 102 Result Comment: MANAGEMENT OF PATIENT CARE PER NURSING PROTOCOL Performed By: #### L501.080 #### [facility] Point of Care [address] [place] [address] BEDSIDE GLUCOSE Collected: 08/30/2017 Status: F Source: MARK 9:14 PM [facility] REPOSITORY TYPE CODE TESTS RESULT OUT OF REFERENCE UNITS RANGE LAB L501.080 70-110 mg/dL High BEDSIDE GLU 199 Result Comment: MANAGEMENT OF PATIENT CARE PER NURSING PROTOCOL Performed By: #### L501.080 #### [facility] Point of Care [address] [place] [address] BEDSIDE GLUCOSE Collected: 08/30/2017 Status: F Source: MARK 5:27 PM [facility] REPOSITORY TYPE CODE TESTS RESULT OUT OF REFERENCE UNITS RANGE LAB L501.080 70-110 mg/dL High BEDSIDE GLU 182 Result Comment: MANAGEMENT OF PATIENT CARE PER NURSING PROTOCOL Performed By: #### L501.080 #### [facility] Point of Care [address] [place] [address] BEDSIDE GLUCOSE Collected: 08/30/2017 Status: F Source: MARK 11:09 AM [facility] REPOSITORY TYPE CODE TESTS RESULT OUT OF REFERENCE UNITS RANGE LAB L501.080 70-110 mg/dL High BEDSIDE GLU 169 Result Comment: MANAGEMENT OF PATIENT CARE PER NURSING PROTOCOL Performed By: #### L501.080 #### [facility] Point of Care [address] [place] [address] BEDSIDE GLUCOSE Collected: 08/30/2017 Status: F Source: MARK 6:28 AM [facility] REPOSITORY TYPE CODE TESTS RESULT OUT OF REFERENCE UNITS RANGE LAB L501.080 70-110 mg/dL High BEDSIDE GLU 154 Result Comment: MANAGEMENT OF PATIENT CARE PER NURSING PROTOCOL Performed By: #### L501.080 #### [facility] Point of Care [address] [place] [address] BEDSIDE GLUCOSE Collected: 08/29/2017 Status: F Source: MARK 9:18 PM [facility] REPOSITORY TYPE CODE TESTS RESULT OUT OF REFERENCE UNITS RANGE LAB L501.080 70-110 mg/dL High BEDSIDE GLU 225 Result Comment: MANAGEMENT OF PATIENT CARE PER NURSING PROTOCOL Performed By: #### L501.080 #### [facility] Point of Care [address] [place] [address] BEDSIDE GLUCOSE Collected: 08/29/2017 Status: F Source: MARK 4:45 PM [facility] REPOSITORY TYPE CODE TESTS RESULT OUT OF REFERENCE UNITS RANGE LAB L501.080 70-110 mg/dL High BEDSIDE GLU 209 Result Comment: MANAGEMENT OF PATIENT CARE PER NURSING PROTOCOL Performed By: #### L501.080 #### [facility] Point of Care [address] [place] [address] BEDSIDE GLUCOSE Collected: 08/29/2017 Status: F Source: MARK 11:24 AM [facility] REPOSITORY TYPE CODE TESTS RESULT OUT OF REFERENCE UNITS RANGE LAB L501.080 70-110 mg/dL High BEDSIDE GLU 178 Result Comment: Dr Sullivan Followed MANAGEMENT OF PATIENT CARE PER NURSING PROTOCOL Performed By: #### L501.080 #### [facility] Point of Care [address] [place] [address] BEDSIDE GLUCOSE Collected: 08/29/2017 Status: F Source: MARK 6:42 AM [facility] REPOSITORY TYPE CODE TESTS RESULT OUT OF REFERENCE UNITS RANGE LAB L501.080 70-110 mg/dL High BEDSIDE GLU 129 Result Comment: MANAGEMENT OF PATIENT CARE PER NURSING PROTOCOL Performed By: #### L501.080 #### [facility] Point of Care [address] [place] [address] BEDSIDE GLUCOSE Collected: 08/28/2017 Status: F Source: MARK 9:15 PM [facility] REPOSITORY TYPE CODE TESTS RESULT OUT OF REFERENCE UNITS RANGE LAB L501.080 70-110 mg/dL High BEDSIDE GLU 200 Result Comment: MANAGEMENT OF PATIENT CARE PER NURSING PROTOCOL Performed By: #### L501.080 #### [facility] Point of Care [address] [place] [address] BEDSIDE GLUCOSE Collected: 08/28/2017 Status: F Source: MARK 4:49 PM [facility] REPOSITORY TYPE CODE TESTS RESULT OUT OF REFERENCE UNITS RANGE LAB L501.080 70-110 mg/dL High BEDSIDE GLU 171 Result Comment: MANAGEMENT OF PATIENT CARE PER NURSING PROTOCOL Performed By: #### L501.080 #### [facility] Point of Care [address] [place], [place] [address] HISTORY AND PHYSICAL Observed: 08/28/2017 Status: F Source: MARK EXAM 3:04 PM [facility] Medical Records Department [facility] [place] [address] History and Physical 08/28/17 1454 MR#: [id number] Acct: [id number] Name: EVERETT IYER Rep #: [id number] : 1945 72 From: Elenita Rogers DPM PCP: Jack Verdugo MD Status: ADM IN Y Location: [place] [address] Problem List (1) Ulcer of right lower extremity with fat layer exposed Status: Chronic (2) Ulcer of left lower extremity with fat layer exposed Status: Chronic (3) Bilateral leg edema Status: Chronic (4) Tinea unguium Status: Chronic (5) Diabetes mellitus with neuropathy Status: Chronic Qualifiers: Diabetes mellitus type: type 2 (6) Delayed wound healing Status: Chronic History of Present Illness Date of Admission: 08/28/17 - date of podiatry evaluation Chief Complaint: long thick toenails. Right and left leg wounds The patient is a 72 year old M bedside for bilateral lower extremity ulcers that have been present for an extended period of time. He has chronic swelling. He reports he is been taking additional diuresis medication, wear his Mike wraps, and tries to elevate his legs for edema control. He sees his primary care physician for wound care and was discharged from the wound care center previously. He also complains he has long thick toenails which he does not feel safe performing on his own. He asked for help today. She has diabetic neuropathy with loss of sensation and rest paresthesias. He was seen in the transitional care unit today. Past Medical History Past Medical History (Chronic Problems): Chronic Problems (Last Updated 08/24/17 @ 10:41 by Shannon Gomez, ERIC-C) Venous stasis dermatitis (Chronic) Anemia (Chronic) Osteoarthritis (Chronic) Coronary artery disease (Chronic) Chronic kidney disease (Chronic) Diabetes mellitus (Chronic) Lymphedema (Chronic) Hyperlipidemia (Chronic) Super obesity (Chronic) Sleep apnea (Chronic) Pulmonary embolism (Chronic) Gout (Chronic) Ulcer of right lower extremity with fat layer exposed (Chronic) Ulcer of left lower extremity with fat layer exposed (Chronic) Bilateral leg edema (Chronic) Tinea unguium (Chronic) Diabetes mellitus with neuropathy (Chronic) Delayed wound healing (Chronic) CKD (chronic kidney disease), stage II (Chronic) Wheezing (Chronic) MIKO (obstructive sleep apnea) (Chronic) HTN (hypertension) (Chronic) BPH (benign prostatic hypertrophy) (Chronic) Tinea unguium (Chronic) Diabetes mellitus with neuropathy (Chronic) Leg swelling (Chronic) Lymphedema of leg (Chronic) Multiple excoriations (Chronic) Asthma (Chronic) COPD (chronic obstructive pulmonary disease) (Chronic) Arthritis (Chronic) Immobility (Chronic) 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 Patient was educated on the signs and symptoms of bleeding as such as hemoptysis, hematemesis, hematochezia or melena stools. Patient has been advised to watch for these symptoms contact the office if they present. Follow-up with Dr. Clay in approximately 8 weeks as previously scheduled. Adynamic ileus (Chronic) Ventral hernia (Chronic) Hypoglycemia (Chronic) Peripheral neuropathy (Chronic) Chronic anemia (Chronic) Benign essential hypertension (Chronic) Benign prostatic hypertrophy without urinary obstruction (Chronic) CKD (chronic kidney disease), stage II (Chronic) CHF (congestive heart failure) (Chronic) CAD (coronary artery disease) (Chronic) Type II diabetes mellitus (Chronic) GERD (gastroesophageal reflux disease) (Chronic) Hypercholesteremia (Chronic) Morbid obesity (Chronic) Pulmonary hypertension (Chronic) H/O aortic valve replacement (Chronic) S/P AAA repair (Chronic) Venous insufficiency (Chronic) Tinea unguium (Chronic) Allergies naphazoline HCl [From Naphcon] Allergy (Severe, Verified 08/20/17 15:18) affected his breathing AFFECTED HIS BREATHING amlodipine besylate [From Norvasc] Allergy (Verified 08/20/17 15:18) Other dextromethorphan Allergy (Verified 08/20/17 15:18) Other levofloxacin [From Levaquin] Adverse Reaction (Mild, Verified 08/20/17 15:18) made me hyperactive made me hyperactive Home Medications: Ambulatory Orders Medication Instructions Recorded Allopurinol [Zyloprim] 300 mg PO DAILY 03/30/17 Surgical History: - - He has a bioprosthetic aortic valve replacement, abdominal aortic aneurysm repair '05, recent surgery to repair a large ventral hernia. Psychiatric History: Anxiety, Depression Lives: Spouse/ Significant Other Smoking Status: Former smoker Tobacco Use: Non-smoker Alcohol: None Drugs: None - *Family History Maternal History Items: Hypertension, - - Patient's father at the age of 94 from old age. Patient's mother at age of 87 with a history of hyperlipidemia and hypertension. Paternal History Items: Hypertension Review of Systems Constitutional: Denies: Chills, Fever Cardiovascular: Reports: Edema. Denies: Claudication Gastrointestinal: Denies: Nausea, Vomiting Skin: Reports: Skin Changes, Wounds Neurological: Reports: Numbness, Tingling VTE Information - Inpt Only VTE Present on Admission: No VTE Pharm Prophylaxis ordered?: Yes Patient Problems: Active and Suspected Problems (Last Updated 08/24/17 @ 10:41 by Shannon Gomez NP-C) Shortness of breath (Acute) Acute on chronic diastolic heart failure (Acute) Bilateral lower leg cellulitis (Acute) Depression (Acute) - Physical Exam General: Alert, Oriented x3, Cooperative HEENT: Atraumatic Extremities: No cyanosis, Capillary Refill Less than 3 Seconds, No Calf Tenderness - Negative Tj and Richardson sign bilateral., Diminished Peripheral Pulses, Edema Skin: Ulcer/ Wound - His skin is atrophic, hairless, and with peeling bilateral lower extremities. His toenails bilateral 1, 2, 3, 4, 5 are long, thick, dystrophic, and possible debris and in curvature to medial lateral borders. The right lateral leg wound cluster measures 6 cm x 8 cm x 0.1 cm (5%) and post debridement 6.1 cm x 8.1 cm x 0.1 cm (5%). His right lateral proximal leg measures 3.8 cm x 3.8 cm x 0.1 cm and post debridement measurement is 3.9 cm x 3.9 cm x 0.1 cm. All of the wound beds are pale granular with interspersed fibrous tissue. There is no deep tissue exposed. There is no maceration, erythema, streaking, bogginess, crepitus, or signs of infection or necrosis to bilateral lower extremities. There is no interdigital maceration. Musculoskeletal: No Tenderness to Palpation of Joints or Extremities, Muscle Wasting, - - Active active range of motion digits 10 Neurological: - - Lack of epicritic sensation light touch bilateral Psych/Mental Status: Normal Affect, Appropriate Vital Signs Temp Pulse Resp BP Pulse Ox 96.7 F L 59 L 22 H 108/44 L 94 08/27/17 13:51 08/28/17 11:37 08/27/17 13:51 08/28/17 11:37 08/28/17 09:15 Oxygen Flow Rate (L/min) 3.5 Oxygen Delivery Method Nasal Cannula Weight: 169.95 kg Body Mass Index (BMI) 57.3 Finger Stick Blood Glucose 116 Intake and Output for Last 24 Hours Intake Total 1140 / 1140 1080 / 1080 600 / 600 Output Total 700 / 700 1025 / 1025 825 / 825 Balance 440 / 440 55 / 55 -225 / -225 POC Glucose POC Glucose 156 H 134 H 180 H POC Glucose 191 H Assessment/Plan Active and Suspected Problems (Last Updated 08/24/17 @ 10:41 by Shannon E Jason, VOCATIONAL PSYCHOLOGIST-C) Shortness of breath (Acute) Acute on chronic diastolic heart failure (Acute) Bilateral lower leg cellulitis (Acute) Depression (Acute) Tinea unguium versus onychauxis Right leg ulcer with fat layer exposed, no infection (grade 1) Left leg ulcer with fat layer exposed, no infection (grade 2) Diabetes with neuropathy Lower extremity edema Malnutrition suspected Delayed healing Debility and fall risk Other comorbidities I reviewed and discussed his care plan today. His toenails were debrided with a nail nipper after verbal consent was obtained; bilateral 1, 2, 3, 4, 5. This was performed without incident and he tolerated this well. He understands there are various treatment options for the thickened long toenails and he elects to proceed with the palliative care option at this time. I also utilize a 15 blade to debride his ulcers as noted in the physical exam section. Verbal consent was obtained and he did not require local anesthetic due to his neuropathy. He tolerated this well. Pressure was applied to maintain hemostasis. The debridement was performed in a subcutaneous excisional manner to remove nonviable and devitalized subcutaneous tissue, fibrous tissue, biofilm, and slough. A dressing consisting of Aquacel Ag, gauze, Kerlix, and Mike wrap was applied. To change daily. Prior to dressing application lotion was also applied to the periwound area to improve skin integrity and to prevent further breakdown. The basic wound care principles were reviewed including keeping this site infection free, decreasing pressure by better controlling his edema, continuing with good nutritious intake by controlling sugar levels and taking Candido nutritional supplement, and weekly debridements. He was reassured there are no local signs of infection. To continue with diuresis in light elevation to better control leg edema. Thank you for the consultation. I will continue to follow him closely in house. Please do not hesitate to call if you have any questions. Elenita Rogers DPM [facility] [phone] 08/28/17 0746 <Electronically signed by Elenita Rogers DPM> Date Elenita Rogers DPM Cosigner Signature: Date (if applicable) CC: Elenita Rogers DPM; Jack Verdugo MD Signed BEDSIDE GLUCOSE Collected: 08/28/2017 Status: F Source: MARK 11:36 AM [facility] REPOSITORY TYPE CODE TESTS RESULT OUT OF REFERENCE UNITS RANGE LAB L501.080 70-110 mg/dL High BEDSIDE GLU 156 Result Comment: Dr Sullivan Followed MANAGEMENT OF PATIENT CARE PER NURSING PROTOCOL Performed By: #### L501.080 #### [facility] Point of Care [address] [place] [address] BEDSIDE GLUCOSE Collected: 08/28/2017 Status: F Source: MARK 6:19 AM [facility] REPOSITORY TYPE CODE TESTS RESULT OUT OF REFERENCE UNITS RANGE LAB L501.080 70-110 mg/dL High BEDSIDE GLU 134 Result Comment: MANAGEMENT OF PATIENT CARE PER NURSING PROTOCOL Performed By: #### L501.080 #### [facility] Point of Care [address] [place] [address] BEDSIDE GLUCOSE Collected: 08/27/2017 Status: F Source: MARK 8:58 PM [facility] REPOSITORY TYPE CODE TESTS RESULT OUT OF REFERENCE UNITS RANGE LAB L501.080 70-110 mg/dL High BEDSIDE GLU 180 Result Comment: MANAGEMENT OF PATIENT CARE PER NURSING PROTOCOL Performed By: #### L501.080 #### [facility] Point of Care [address] [place] [address] BEDSIDE GLUCOSE Collected: 08/27/2017 Status: F Source: MARK 4:47 PM [facility] REPOSITORY TYPE CODE TESTS RESULT OUT OF REFERENCE UNITS RANGE LAB L501.080 70-110 mg/dL High BEDSIDE GLU 191 Result Comment: MANAGEMENT OF PATIENT CARE PER NURSING PROTOCOL Performed By: #### L501.080 #### [facility] Point of Care [address] [place] [address] BEDSIDE GLUCOSE Collected: 08/27/2017 Status: F Source: MARK 11:20 AM [facility] REPOSITORY TYPE CODE TESTS RESULT OUT OF REFERENCE UNITS RANGE LAB L501.080 70-110 mg/dL High BEDSIDE GLU 164 Result Comment: MANAGEMENT OF PATIENT CARE PER NURSING PROTOCOL Performed By: #### L501.080 #### [facility] Point of Care [address] [place] [address] BEDSIDE GLUCOSE Collected: 08/27/2017 Status: F Source: MARK 6:37 AM [facility] REPOSITORY TYPE CODE TESTS RESULT OUT OF REFERENCE UNITS RANGE LAB L501.080 70-110 mg/dL High BEDSIDE GLU 124 Result Comment: MANAGEMENT OF PATIENT CARE PER NURSING PROTOCOL Performed By: #### L501.080 #### [facility] Point of Care [address] [place] [address] BEDSIDE GLUCOSE Collected: 08/26/2017 Status: F Source: MARK 9:02 PM [facility] REPOSITORY TYPE CODE TESTS RESULT OUT OF REFERENCE UNITS RANGE LAB L501.080 70-110 mg/dL High BEDSIDE GLU 151 Result Comment: MANAGEMENT OF PATIENT CARE PER NURSING PROTOCOL Performed By: #### L501.080 #### [facility] Point of Care [address] [place] [address] BEDSIDE GLUCOSE Collected: 08/26/2017 Status: F Source: MARK 4:46 PM [facility] REPOSITORY TYPE CODE TESTS RESULT OUT OF REFERENCE UNITS RANGE LAB L501.080 70-110 mg/dL High BEDSIDE GLU 190 Result Comment: MANAGEMENT OF PATIENT CARE PER NURSING PROTOCOL Performed By: #### L501.080 #### [facility] Point of Care [address] [place] [address] BEDSIDE GLUCOSE Collected: 08/26/2017 Status: F Source: MARK 11:26 AM [facility] REPOSITORY TYPE CODE TESTS RESULT OUT OF REFERENCE UNITS RANGE LAB L501.080 70-110 mg/dL High BEDSIDE GLU 150 Result Comment: Dr Orders Followed MANAGEMENT OF PATIENT CARE PER NURSING PROTOCOL Performed By: #### L501.080 #### [facility] Point of Care [address] [place] [address] BEDSIDE GLUCOSE Collected: 08/26/2017 Status: F Source: MARK 6:23 AM [facility] REPOSITORY TYPE CODE TESTS RESULT OUT OF REFERENCE UNITS RANGE LAB L501.080 70-110 mg/dL High BEDSIDE GLU 124 Result Comment: MANAGEMENT OF PATIENT CARE PER NURSING PROTOCOL Performed By: #### L501.080 #### [facility] Point of Care [address] [place] [id number] BASIC METABOLIC Collected: 08/26/2017 Status: F Source: MARK PROFILE (BMP) 5:15 AM [facility] REPOSITORY TYPE CODE TESTS RESULT OUT OF RANGE REFERENCE UNITS LAB L501.0100 74-106 mg/dL High GLU 112 Result Comment: Fasting Glucose result from 100 to 125 mg/dL suggests IMPAIRED HOMEOSTASIS per A.D.A. criteria. Please note revised GLUCOSE reference range effective 2017. LAB L501.1000 7-18 mg/dL High BUN 42 LAB L501.1100 0.70-1.30 mg/dL High CREAT,SERUM 1.44 Result Comment: The validity of the calculated GFR AND GFRAA in patients over 70 years has not been determined. Clinical correlation is essential. LAB L501.1110 >60 mL/min Low EST GFR 51 Result Comment: Non- GFR Calc LAB L501.1115 >60 mL/min Normal EST GFR - AA 62 Result Comment: GFR Calc LAB L501.1255 ml/min Normal Estimated CRCL 43.54 LAB L501.1300 10-20 RATIO High BUN/CRE 29.2 LAB L501.2200 8.5-10 mg/dL Low .1 CA 8.1 LAB L501.5300 136-14 mmol/L Normal 5 NA 138 LAB L501.5600 3.5-5. mmol/L Normal 1 K 4.0 LAB L501.5900 98-107 mmol/L Low CL 95 LAB L501.6100 21.0-3 mmol/L High 2.0 CO2 38.0 LAB L501.6200 5-15 Normal GAP 5 Performed By: #### L500.2500 #### [facility] [address] [place], [address] BEDSIDE GLUCOSE Collected: 08/25/2017 Status: F Source: [place] 8:43 PM [facility] REPOSITORY TYPE CODE TESTS RESULT OUT OF REFERENCE UNITS RANGE LAB L501.080 70-110 mg/dL High BEDSIDE GLU 125 Result Comment: MANAGEMENT OF PATIENT CARE PER NURSING PROTOCOL Performed By: #### L501.080 #### [facility] Point of Care [address] [place] [address] BEDSIDE GLUCOSE Collected: 08/25/2017 Status: F Source: [place] 4:36 PM [facility] REPOSITORY TYPE CODE TESTS RESULT OUT OF RANGE REFERENCE UNITS LAB L501.080 70-110 mg/dL Normal BEDSIDE GLU 77 Result Comment: MANAGEMENT OF PATIENT CARE PER NURSING PROTOCOL Performed By: #### L501.080 #### [facility] Point of Care [address] [place] [address] BEDSIDE GLUCOSE Collected: 08/25/2017 Status: F Source: [place] 11:11 AM [facility] REPOSITORY TYPE CODE TESTS RESULT OUT OF REFERENCE UNITS RANGE LAB L501.080 70-110 mg/dL High BEDSIDE GLU 136 Result Comment: Dr Orders Followed MANAGEMENT OF PATIENT CARE PER NURSING PROTOCOL Performed By: #### L501.080 #### [facility] Point of Care [address] [place] [address] DISCHARGE SUMMARY Observed: 08/25/2017 Status: F Source: [place] 9:34 AM [facility] REPOSITORY [facility] Medical Records Department [address] [place] [address] Discharge Summary 08/24/17 1301 MR#: [id number] Acct: [id number] Name: EVERETT IYER Dianne Rep #: [id number] : 1945 72 From: Daniele Wellington MD PCP: Jack Verdugo MD Status: DIS IN Y Location: [place] [address] Discharge Date and Diagnosis - Problem List Patient Problems: Active and Suspected Problems (Last Updated 08/24/17 @ 10:41 by Shannon Gomez, VOCATIONAL PSYCHOLOGIST-C) Shortness of breath (Acute) Acute on chronic diastolic heart failure (Acute) Bilateral lower leg cellulitis (Acute) Depression (Acute) Date of Admission: 08/20/17 Date of Discharge: 08/24/17 - Primary Discharge Diagnosis Active and Suspected Problems (Last Updated 08/24/17 @ 10:41 by Shannon Gomez NP-C) Open wound, lower leg (Acute) Acute on chronic respiratory failure with hypoxia and hypercapnia (Acute) CHF exacerbation (Acute) - Secondary Discharge Diagnosis Chronic Problems (Last Updated 08/24/17 @ 10:41 by Shannon Gomez NP-C) CKD (chronic kidney disease), stage II (Chronic) Wheezing (Chronic) MIKO (obstructive sleep apnea) (Chronic) HTN (hypertension) (Chronic) BPH (benign prostatic hypertrophy) (Chronic) Tinea unguium (Chronic) Diabetes mellitus with neuropathy (Chronic) Leg swelling (Chronic) Lymphedema of leg (Chronic) Multiple excoriations (Chronic) Asthma (Chronic) COPD (chronic obstructive pulmonary disease) (Chronic) Arthritis (Chronic) Immobility (Chronic) 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 Patient was educated on the signs and symptoms of bleeding as such as hemoptysis, hematemesis, hematochezia or melena stools. Patient has been advised to watch for these symptoms contact the office if they present. Follow-up with Dr. Clay in approximately 8 weeks as previously scheduled. Adynamic ileus (Chronic) Ventral hernia (Chronic) Hypoglycemia (Chronic) Peripheral neuropathy (Chronic) Chronic anemia (Chronic) Benign essential hypertension (Chronic) Benign prostatic hypertrophy without urinary obstruction (Chronic) CKD (chronic kidney disease), stage II (Chronic) CHF (congestive heart failure) (Chronic) CAD (coronary artery disease) (Chronic) Type II diabetes mellitus (Chronic) GERD (gastroesophageal reflux disease) (Chronic) Hypercholesteremia (Chronic) Morbid obesity (Chronic) Pulmonary hypertension (Chronic) H/O aortic valve replacement (Chronic) S/P AAA repair (Chronic) Venous insufficiency (Chronic) Tinea unguium (Chronic) Hospital Course and Treatment Consultations 08/20/17 17:08 Consult: Onc/Wound/family practitioner Routine Comment: Operations: None Summary of Care Provided: This is a 72 y/o M w/ PMHx: , BPH, HTN, Diabetes mellitus type II w/ neuropathy, Tobacco use, CHF Unclear type, CKD stage II, COPD, History of AVR, History of AAA s/p repair, GERD, Morbid Obesity PVD, Hx Ileus, Hx PE on Eliquis prior who presents to [facility] on 08/20/17 with history of progressively worsening dyspnea, worse with exertion, orthopnea, worsening BL LE edema on intravenous Lasix and admitted to PCU. He was placed on BiPAP which was ultimately changed to nightly BiPAP. Her Improved with IV Lasix and was then changed to oral medication. 1 acute on chronic diastolic congestive heart failure; was treated with intravenous Lasix, he is now compensated and changed to p.o. Lasix at 80 mg twice daily. 2 anasarca; improved with diuretic therapy. 3 type 2 diabetes; currently receiving Lantus 4 hypertension; controlled 5 chronic obstructive pulmonary disease; continue on bronchodilators and supplemental oxygen. 6 chronic hypoxic respiratory failure; supplemental oxygen per nasal cannula. 7 iron deficiency anemia; the patient was given intravenous iron. 8 chronic kidney disease stage II secondary to type 2 diabetes; renal parameters at the time of discharge. 9 MIKO; HS BiPAP 10 super morbid obesity; weight loss recommended that unlikely to happen at this time. 11. chronic stasis dermatitis of the lower legs with excoriation of both lower legs, no evidence of cellulitis at this time. 13 significant debility; PT OT care home placement. On exam at the time of discharge; vital signs were stable. He was alert and oriented to time place and person. He did not appear to be any form of distress. S1 and S2 heard no murmur or gallop Lung exam was clear to auscultation with no adventitious sounds. Abdomen was soft nontender with normal bowel sounds. extremity exam ; lower extremity stasis dermatitis Neurologic exam was grossly intact. Home Medications: Medications to take at Discharge Allopurinol [Zyloprim] 300 mg PO DAILY 03/30/17 Atorvastatin Calcium [Lipitor] 40 mg PO QHS 03/30/17 Clonidine Patch [Catapres-Tts3] 0.3 mg TOPICAL FR 03/30/17 Clopidogrel Bisulfate [Plavix] 75 mg PO DAILY 03/30/17 Ferrous Sulfate 325 mg PO DAILY@0800 03/30/17 Finasteride [Proscar] 5 mg PO DAILY 03/30/17 Glimepiride [Amaryl] 8 mg PO BREAKFAST 03/30/17 Hydroxyzine HCl 25 mg PO TID PRN 03/30/17 Insulin Glargine [Lantus SoloStar Pen] 30 units PO BID 03/30/17 Lansoprazole 15 mg PO DAILY 03/30/17 Losartan Potassium 100 mg PO DAILY 03/30/17 Magnesium Oxide [Mag-Ox 400] 800 mg PO BID 03/30/17 Metformin HCl [Glucophage] 500 mg PO TID 03/30/17 Metoprolol Tartrate [Lopressor (beta maryam)] 50 mg PO BID 03/30/17 Multivitamins,Therapeutic [Multivitamin] 1 tab PO DAILY@0800 03/30/17 Sertraline HCl [Zoloft] 50 mg PO QHS 03/30/17 Spironolactone 25 mg PO BID 03/30/17 Terazosin HCl [Hytrin] 10 mg PO QHS 03/30/17 albuterol sulfate HFA 90 mcg/actuation aerosol inhaler 2 puff PO Q6H PRN PRN #18 g 08/05/17 Albuterol Aerosols [Ventolin Aerosols] 2.5 mg INHALATION Q4H PRN 08/20/17 Fluticasone/Salmeterol [Advair 500-50 Diskus] 2 puff INHALATION Q12H 08/20/17 Furosemide [Lasix] 80 mg PO BID 08/20/17 Sertraline HCl [Zoloft] 100 mg PO DAILY 08/20/17 Apixaban [Eliquis] 5 mg PO BID 08/24/17 Budesonide Aerosol [Pulmicort Respules] 0.5 mg INHALATION BID.RT 08/24/17 Oxycodone [Oxyir] 5 mg PO Q4H PRN PRN #10 tab 08/24/17 Psyllium [Metamucil] 1 packet PO DAILY PRN PRN packet 08/24/17 Senna/Docusate Sodium [Senokot-S] 2 tablet PO BID 08/24/17 Following Prescrptions Were Given to Patient: Oxycodone [Oxyir] 5 mg PO Q4H PRN PRN #10 tab PRN Reason: Moderate Pain (pain scale 4-5) Primary Care Physician: Jack Verdugo MD [Primary Care Provider] - Within 1 Week Medical Necessity - Tobacco Use Smoking Status: Former smoker Tobacco Use: Non-smoker Meaningful Use Info Meaningful Use Diagnoses (Choose all that apply): None applicable Code Visit Inpatient E AND M: 47444 Disch Hosp 08/25/17 0934 <Electronically signed by Daniele Wellington MD> Date Daniele Wellington MD Cosigner Signature (if applicable): Date CC: Daniele Wellington MD; Jack Verdugo MD Signed BEDSIDE GLUCOSE Collected: 08/25/2017 Status: F Source: [place] 6:13 AM [facility] REPOSITORY TYPE CODE TESTS RESULT OUT OF REFERENCE UNITS RANGE LAB L501.080 70-110 mg/dL High BEDSIDE GLU 158 Result Comment: MANAGEMENT OF PATIENT CARE PER NURSING PROTOCOL Performed By: #### L501.080 #### [facility] Point of Care [address] [place] [address] HISTORY AND PHYSICAL Observed: 08/24/2017 Status: F Source: [place] EXAM 9:58 PM [facility] REPOSITORY [facility] Medical Records Department [address] [place] [address] History and Physical 08/24/172122 MR#: [id number] Acct: [id number] Name: EVERETT IYER Rep #: [id number] : 1945 72 From: Teo Barr MD PCP: Jack Verdugo MD Status: ADM IN Location: [facility] TCU06-1 Problem List (1) Shortness of breath Status: Acute (2) Acute on chronic diastolic heart failure Status: Acute (3) Bilateral lower leg cellulitis Status: Acute (4) Venous stasis dermatitis Status: Chronic (5) Anemia Status: Chronic (6) Osteoarthritis Status: Chronic (7) Coronary artery disease Status: Chronic (8) Chronic kidney disease Status: Chronic (9) Diabetes mellitus Status: Chronic (10) Lymphedema Status: Chronic (11) Hyperlipidemia Status: Chronic (12) Super obesity Status: Chronic (13) Sleep apnea Status: Chronic (14) Pulmonary embolism Status: Chronic (15) Gout Status: Chronic (16) Depression Status: Acute (17) HTN (hypertension) Status: Chronic Qualifiers: (18) BPH (benign prostatic hypertrophy) Status: Chronic Qualifiers: (19) Asthma Status: Chronic Qualifiers: (20) COPD (chronic obstructive pulmonary disease) Status: Chronic Qualifiers: (21) GERD (gastroesophageal reflux disease) Status: Chronic Qualifiers: (22) Pulmonary hypertension Status: Chronic History of Present Illness Date of Admission: 08/24/17 Chief Complaint: Here for rehabilitation, strengthening, prior to discharge home with spouse. The patient is a 72 year old Male with below past medical history presented to [facility] Emergency Department 08/20/2017 with shortness of breath. 08/20/2017 Chest X-ray moderate enlargement cardiac silhouette, diffuse edema, small right pleural effusion. Shortness of breath x 4 days, worsening at home. Increased leg swelling. Dyspnea on exertion, mild cough. Sent to Emergency Department from Dr. Clay's office. Albuterol aerosol given. EKG sinus rhythm, heart rate 93. Hemoglobin 9.8, CO2 37, Glucose 213, Troponin negative. BNP 181.5. Lasix IV, Off Eliquis, heparin drip started. Zosyn, Vancomycin IV for bilateral lower extremity cellulitis. 08/20/2017 CTA chest right upper lobe chronic pulmonary embolism. Mild cardiomegaly, mild edema. Moderate right pleural effusion, small left pleural effusion. Right lower lobe atelectasis. Herniation of stomach, colon. 08/20/2017 Admit to Hospital. IV Lasix for congestive heart failure. Heparin drop for pulmonary embolism. IV Vancomycin, Zosyn, for bilateral lower extremity cellulitis. 08/20/2017 Dr. Raymundo recommended ACEI, diuretics. Eliquis for pulmonary embolism. 08/21/2017 Echo LV systolic function normal. EF 60%. 08/21/2017 Dr. Clay recommended aerosol, Eliquis, IV Lasix, BiPAP. 08/21/2017 Continue IV Lasix, stop Zosyn, legs are venous stasis dermatitis rather than cellulitis. 08/22/2017 Diuresing well on IV Lasix. Venofer IV for iron replacement. 08/24/2017 Admit to TCU for rehabilitation, strengthening, prior to discharge home with spouse. Past Medical History Past Medical History (Chronic Problems): Chronic Problems (Last Updated 08/24/17 @ 10:41 by Shannon Gomez, VOCATIONAL PSYCHOLOGIST-C) Venous stasis dermatitis (Chronic) Anemia (Chronic) Osteoarthritis (Chronic) Coronary artery disease (Chronic) Chronic kidney disease (Chronic) Diabetes mellitus (Chronic) Lymphedema (Chronic) Hyperlipidemia (Chronic) Super obesity (Chronic) Sleep apnea (Chronic) Pulmonary embolism (Chronic) Gout (Chronic) CKD (chronic kidney disease), stage II (Chronic) Wheezing (Chronic) MIKO (obstructive sleep apnea) (Chronic) HTN (hypertension) (Chronic) BPH (benign prostatic hypertrophy) (Chronic) Tinea unguium (Chronic) Diabetes mellitus with neuropathy (Chronic) Leg swelling (Chronic) Lymphedema of leg (Chronic) Multiple excoriations (Chronic) Asthma (Chronic) COPD (chronic obstructive pulmonary disease) (Chronic) Arthritis (Chronic) Immobility (Chronic) 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 Patient was educated on the signs and symptoms of bleeding as such as hemoptysis, hematemesis, hematochezia or melena stools. Patient has been advised to watch for these symptoms contact the office if they present. Follow-up with Dr. Clay in approximately 8 weeks as previously scheduled. Adynamic ileus (Chronic) Ventral hernia (Chronic) Hypoglycemia (Chronic) Peripheral neuropathy (Chronic) Chronic anemia (Chronic) Benign essential hypertension (Chronic) Benign prostatic hypertrophy without urinary obstruction (Chronic) CKD (chronic kidney disease), stage II (Chronic) CHF (congestive heart failure) (Chronic) CAD (coronary artery disease) (Chronic) Type II diabetes mellitus (Chronic) GERD (gastroesophageal reflux disease) (Chronic) Hypercholesteremia (Chronic) Morbid obesity (Chronic) Pulmonary hypertension (Chronic) H/O aortic valve replacement (Chronic) S/P AAA repair (Chronic) Venous insufficiency (Chronic) Tinea unguium (Chronic) Allergies naphazoline HCl [From Naphcon] Allergy (Severe, Verified 08/20/17 15:18) affected his breathing AFFECTED HIS BREATHING amlodipine besylate [From Norvasc] Allergy (Verified 08/20/17 15:18) Other dextromethorphan Allergy (Verified 08/20/17 15:18) Other levofloxacin [From Levaquin] Adverse Reaction (Mild, Verified 08/20/17 15:18) made me hyperactive made me hyperactive Home Medications: Ambulatory Orders Medication Instructions Recorded Allopurinol [Zyloprim] 300 mg PO DAILY 03/30/17 Surgical History: - - He has a bioprosthetic aortic valve replacement, abdominal aortic aneurysm repair '05, recent surgery to repair a large ventral hernia. Psychiatric History: Anxiety, Depression Lives: Spouse/ Significant Other Smoking Status: Former smoker Tobacco Use: Non-smoker Alcohol: None Drugs: None - *Family History Maternal History Items: Hypertension, - - Patient's father at the age of 94 from old age. Patient's mother at age of 87 with a history of hyperlipidemia and hypertension. Paternal History Items: Hypertension Review of Systems Constitutional: Denies: Chills, Fever, Weight Change HEENT: Denies: Head Aches, Sinus Congestion, Sinus Drainage Cardiovascular: Denies: Chest Pain, Palpitations Respiratory: Denies: Cough, Shortness of breath at rest, Sputum production Gastrointestinal: Denies: Abdominal Pain, Nausea, Vomiting Genitourinary: Denies: Dysuria Musculoskeletal: Denies: Joint Pain, Joint Tenderness Skin: Denies: Rash, Wounds Neurological: Denies: Numbness, Tingling, Focal weakness Psychiatric: Denies: Anxiety, Depression, Homicidal Ideations, Suicidal Ideations Hematologic/ Lymphatic: Denies: Easy Bruising, Easy Bleeding VTE Information - Inpt Only VTE Present on Admission: No VTE Mechan Device Prophylaxis: Knee High YAHIR Hose VTE Pharm Prophylaxis ordered?: No Reason prophylaxis not ordered:: Treatment Not Indicated Patient Problems: Active and Suspected Problems (Last Updated 08/24/17 @ 10:41 by Shannon Gomez, VOCATIONAL PSYCHOLOGIST-C) Shortness of breath (Acute) Acute on chronic diastolic heart failure (Acute) Bilateral lower leg cellulitis (Acute) Depression (Acute) - Physical Exam General: Alert, Oriented x3, Cooperative HEENT: Atraumatic, PERRLA, EOMI, Normocephalic Neck: Supple, No JVD, Negative Carotid Bruits Lungs: Clear to auscultation, Normal air movement Cardiovascular: Regular rate, No murmurs Abdomen: Bowel Sounds Present, Soft, Non Tender Extremities: Capillary Refill Less than 3 Seconds, Edema - 3+ pitting edema bilateral lower extremities. Skin: No rashes, No breakdown Musculoskeletal: No Tenderness to Palpation of Joints or Extremities Neurological: Cranial nerves II-XII grossly intact Psych/Mental Status: Normal Affect, Appropriate Vital Signs Temp Pulse Resp BP 97.2 F L 73 24 H 133/68 H 04/02/18 18:49 08/24/17 18:49 08/24/17 18:49 08/24/17 18:49 Oxygen Flow Rate (L/min) 3 Oxygen Delivery Method Nasal Cannula Weight: 171.004 kg Body Mass Index (BMI) 57.3 Finger Stick Blood Glucose 116 Intake and Output for Last 24 Hours Intake Total 330 / 330 Balance 330 / 330 POC Glucose POC Glucose 224 H Assessment/Plan Active and Suspected Problems (Last Updated 08/24/17 @ 10:41 by Shannon Gomez, VOCATIONAL PSYCHOLOGIST-C) Shortness of breath (Acute) Acute on chronic diastolic heart failure (Acute) Bilateral lower leg cellulitis (Acute) Depression (Acute) 72 year old male with below past medical history hospitalized for acute on chronic diastolic heart failure, complicated by iron deficiency anemia, bilateral lower extremity venous stasis dermatitis masquerading as bilateral lower extremity cellulitis, admitted to TCU with debility, here for rehabilitation, strengthening, prior to discharge home with spouse. * Debility - PT/OT. * Pain - Tylenol 1000MG Q8H PRN mild pain, Oxycodone 5MG Q4H PRN moderate pain. * Bowel - Miralax 17GM daily, Senna/colace 2 tablets BID, Dulcolax 10MG daily PRN, Mag citrate 300ML PO x 1 dose, Soap Suds enema. * Pneumonia vaccination - Administer Prevnar 13 and/or Pneumovax 23 as necessary. * DVT prophylaxis - Not necessary, already on Eliquis. * COPD - Advair 250/50 1 puff BID, Pulmicort 0.5MG BID, Albuterol 2.5MG Q4H PRN, Albuterol MDI 2 puffs Q6H PRN. * Gout - Allopurinol 300MG daily. * Pulmonary embolism - Eliquis 5MG BID. * Hyperlipidemia - Atorvastatin 40MG QHS. * Hypertension - Clonidine patch 0.3MG TD qweek, Losartan 100MG daily. * BPH - Doxazosin 8MG QHS, Finasteride 5MG daily. * Coronary Artery Disease - Metoprolol 50MG BID, Losartan 100MG daily, Plavix 75MG daily. * Iron deficiency anemia - Ferrous sulfate 325MG daily. * Acute on chronic diastolic heart failure - Metoprolol 50MG BID, Losartan 100MG daily, Aldactone 25MG BID, Lasix 80MG BID. * Diabetes Mellitus II - Glimepiride 8MG QAM, Metformin 500MG TID, Levemir 30 units BID, Monitor blood sugars. * Pruritus - Hydroxyzine 25MG TID PRN. * Hypomagnesemia - Mag Oxide 800MG BID. * Nutrition - MVI daily, Candido 1 packet BID. * Tinea Corporis - Nystatin powder BID abdominal folds, groin. * GERD - Pantoprazole 20MG daily. * Depression - Sertraline 100MG, 50MG QHS. 08/24/17 6112 <Electronically signed by Teo Barr MD> Date Teo Barr MD Cosigner Signature: Date (if applicable) CC: Teo Barr MD; Jack Verdugo MD Signed BEDSIDE GLUCOSE Collected: 08/24/2017 Status: F Source: [place] 8:52 PM [facility] REPOSITORY TYPE CODE TESTS RESULT OUT OF REFERENCE UNITS RANGE LAB L501.080 70-110 mg/dL High BEDSIDE GLU 224 Result Comment: MANAGEMENT OF PATIENT CARE PER NURSING PROTOCOL Performed By: #### L501.080 #### [facility] Point of Care [address] [place] [address] BEDSIDE GLUCOSE Collected: 08/24/2017 Status: F Source: MARK 4:34 PM [facility] REPOSITORY TYPE CODE TESTS RESULT OUT OF REFERENCE UNITS RANGE LAB L501.080 70-110 mg/dL High BEDSIDE GLU 173 Result Comment: MANAGEMENT OF PATIENT CARE PER NURSING PROTOCOL Performed By: #### L501.080 #### [facility] Point of Care [address] [place] [address] 12 LEAD ELECTROCARDIOGRAM Observed: 08/24/2017 Status: F Source: MARK 1:55 PM [facility] REPOSITORY [facility] Cardiovascular Services [address] [place] [address] 12 Lead EKG 08/21/17 0522 MR#: [id number] Acct: [id number] Name: EVERETT IYER Rep #: [id number] : 1945 72 From: Danny Raymundo MD Attending Dr: Daniele Wellington MD Status: ADM IN Ordering Dr: Mica Jones Date: 08/21/17 Location: [facility] Sex: M C Admitted: 08/20/17 Test Reason : MORNING EKG Blood Pressure : / mmHG Vent. Rate : 069 BPM Atrial Rate : 069 BPM P-R Int : 144 ms QRS Dur : 102 ms QT Int : 458 ms P-R-T Axes : -05 -09 -06 degrees QTc Int : 490 ms Sinus rhythm with Premature atrial complexes Nonspecific ST abnormality Abnormal ECG When compared with ECG of 20-AUG-2017 14:58, MANUAL COMPARISON REQUIRED, DATA IS UNCONFIRMED Confirmed by DANNY RAYMUNDO MD ([id number]), editorial assistant DANIELA GUTIÉRREZ ([id number]) on 08/24/2017 1:55:19 PM Referred By: ALFIE Confirmed By:DANNY RAYMUNDO MD 08/24/17 1355 Date Danny Raymundo MD CC: Mica Jones; Daniele Wellington MD; Jack Verdugo MD Signed 12 LEAD ELECTROCARDIOGRAM Observed: 08/24/2017 Status: F Source: [place] 1:17 PM [facility] REPOSITORY [facility] Cardiovascular Services [address] [place] [address] 12 Lead EKG 08/20/17 1458 MR#: [id number] Acct: [id number] Name: EVERETT IYER Rep #: [id number] : 1945 72 From: Danny Raymundo MD Attending Dr: Daniele Wellington MD Status: ADM IN Ordering Dr: Shreya Morgan MD Date: 08/20/17 Location: [facility] Sex: M C Admitted: 08/20/17 Test Reason : SOB Blood Pressure : / mmHG Vent. Rate : 093 BPM Atrial Rate : 093 BPM P-R Int : 132 ms QRS Dur : 106 ms QT Int : 402 ms P-R-T Axes : 016 009 070 degrees QTc Int : 499 ms Sinus rhythm with Premature atrial complexes Incomplete left bundle branch block Borderline ECG Confirmed by DANNY RAYMUNDO MD ([id number]), editorial assistant DANIELA GUTIÉRREZ ([id number]) on 08/24/2017 1:16:48 PM Referred By: GABRIELLA 08/24/17 1316 Date Danny Raymundo MD CC: Shreya Morgan MD; Daniele Wellington MD; Jack Verdugo MD Signed TRANSFER TO [facility] Observed: 08/24/2017 Status: F Source: [facility] 1:01 PM [facility] REPOSITORY [facility] Medical Records Department [address] [facility] [place] [address] [facility] MR#: [id number] Acct: [id number] Name: EVERETT IYER Rep #: [id number] : 1945 72 From: Daniele Wellington MD PCP: Jack Verdugo MD Status: ADM IN EVERETT IYER (Patient) (Health Ins. Claim No.) (Day of Discharge to Facility) Certification of patient admission REQUIRED AT TIME OF ADMISSION. I CERTIFY THAT [facility] ARE REQUIRED TO BE GIVEN ON AN IN-PATIENT BASIS BECAUSE OF THE ABOVE NAMED PATIENT'S NEED FOR ALF CARE ON A CONTINUING BASIS FOR THE CONDITION(S) FOR WHICH HE/SHE WAS RECEIVING IN-PATIENT HOSPITAL SERVICES PRIOR TO HIS/HER TRANSFER TO [facility]. 08/24/17 1301 <Electronically signed by Daniele Wellington MD> Date Daniele Wellington MD - Diet 08/20/17 16:11 Diet: Cardiac: Calorie-Controlled Food consistency:: Regular Liquid Consistency:: Regular/Thin How many daily calories?: 1800 calorie - Wound(s) BL calves; outer aspect Wound Type: Stasis Ulcer left lateral lower leg Wound Type: cluster of stasis ulcers Dressing Change: hydrogel with Adaptic right lateral lower leg Wound Type: cluster of stasis ulcers Dressing Change: hydrogel with Adaptic - Therapies Physical Therapy: Eval and Treat Occupational Therapy: Eval and Treat Speech Therapy: Eval and Treat - Allergies/Procedures Done in Hospital Allergies/Adverse Reactions: Allergies naphazoline HCl [From Naphcon] Allergy (Severe, Verified 08/20/17 15:18) affected his breathing AFFECTED HIS BREATHING amlodipine besylate [From Norvasc] Allergy (Verified 08/20/17 15:18) Other dextromethorphan Allergy (Verified 08/20/17 15:18) Other levofloxacin [From Levaquin] Adverse Reaction (Mild, Verified 08/20/17 15:18) made me hyperactive made me hyperactive - Type of Care/Length of Stay Estimated LOS: Convalescent Care Less Than 30 days Type of Care Needed: Skilled Rehab Potential: Fair Prognosis: Fair - Additional Orders/Day of Discharge H AND P will serve as current which was dated: 08/20/17 Day of Discharge: 08/24/17 - Dietary and Speech Recommendations Dietitian Recommendations/Changes: Suggest diet change to 2000 Calorie, Carbohydrate controlled, Cardiac, low sodium with 1500 ml fluid restriction. Suggest 1 pkt Candido BID for wound healing - please order from pharmacy. - Follow Up Care Primary Care Physician: Jack Verdugo MD [Primary Care Provider] - Within 1 Week 08/24/17 1301 <Electronically signed by Daniele Wellington MD> Date Daniele Wellington MD CC: Danny Raymundo MD; Khari Clay D.O.; Jack Verdugo MD Signed BEDSIDE GLUCOSE Collected: 08/24/2017 Status: F Source: MARK 11:37 AM [facility] REPOSITORY TYPE CODE TESTS RESULT OUT OF REFERENCE UNITS RANGE LAB L501.080 70-110 mg/dL High BEDSIDE GLU 199 Result Comment: MANAGEMENT OF PATIENT CARE PER NURSING PROTOCOL Performed By: #### L501.080 #### [facility] Care [address] [place] [address] BEDSIDE GLUCOSE Collected: 08/24/2017 Status: F Source: MARK 6:49 AM [facility] REPOSITORY TYPE CODE TESTS RESULT OUT OF REFERENCE UNITS RANGE LAB L501.080 70-110 mg/dL High BEDSIDE GLU 161 Result Comment: MANAGEMENT OF PATIENT CARE PER NURSING PROTOCOL Performed By: #### L501.080 #### [facility] Point of Care [address] [place] [address] BASIC METABOLIC Collected: 08/24/2017 Status: F Source: MARK PROFILE (BMP) 5:55 AM [facility] REPOSITORY TYPE CODE TESTS RESULT OUT OF RANGE REFERENCE UNITS LAB L501.0100 74-106 mg/dL High GLU 151 Result Comment: Fasting Glucose result greater than or equal to 126 mg/dL suggests DIABETES MELLITUS per A.D.A. criteria. Please note revised GLUCOSE reference range effective 2017. LAB L501.1000 7-18 mg/dL High BUN 22 LAB L501.1100 0.70-1.30 mg/dL High CREAT,SERUM 1.46 Result Comment: The validity of the calculated GFR AND GFRAA in patients over 70 years has not been determined. Clinical correlation is essential. LAB L501.1110 >60 mL/min Low EST GFR 50 Result Comment: Non- GFR Calc LAB L501.1115 >60 mL/min Normal EST GFR - AA 61 Result Comment: GFR Calc LAB L501.1255 ml/min Normal Estimated CRCL 42.95 LAB L501.1300 10-20 RATIO Normal BUN/CRE 15.1 LAB L501.2200 8.5-10 mg/dL Normal .1 CA 8.6 LAB L501.5300 136-14 mmol/L Normal 5 NA 137 LAB L501.5600 3.5-5. mmol/L Normal 1 K 4.1 LAB L501.5900 98-107 mmol/L Low CL 91 LAB L501.6100 21.0-3 mmol/L High 2.0 CO2 44.0 LAB L501.6200 5-15 Low GAP 2 Performed By: #### L500.2500, L501.2300, L501.5200 #### [facility] [address] [place], [address] PHOSPHORUS Collected: 08/24/2017 Status: F Source: MARK 5:55 AM [facility] REPOSITORY TYPE CODE TESTS RESULT OUT OF RANGE REFERENCE UNITS LAB L501.2300 2.5-4.9 mg/dL Normal PHOS 3.3 Performed By: #### L500.2500, L501.2300, L501.5200 #### [facility] [address] [place], [address] MAGNESIUM Collected: 08/24/2017 Status: F Source: MARK 5:55 AM [facility] REPOSITORY TYPE CODE TESTS RESULT OUT OF RANGE REFERENCE UNITS LAB L501.5200 1.6-2.6 mg/dL Normal MG 2.4 Result Comment: Please note revised Magnesium reference range effective 2017. Performed By: #### L500.2500, L501.2300, L501.5200 #### [facility] [address] [place], [address] BEDSIDE GLUCOSE Collected: 08/23/2017 Status: F Source: MARK 10:08 PM [facility] REPOSITORY TYPE CODE TESTS RESULT OUT OF REFERENCE UNITS RANGE LAB L501.080 70-110 mg/dL High BEDSIDE GLU 169 Result Comment: MANAGEMENT OF PATIENT CARE PER NURSING PROTOCOL Performed By: #### L501.080 #### [facility] Point of Care [address] [place] [address] BEDSIDE GLUCOSE Collected: 08/23/2017 Status: F Source: MARK 4:29 PM [facility] REPOSITORY TYPE CODE TESTS RESULT OUT OF REFERENCE UNITS RANGE LAB L501.080 70-110 mg/dL High BEDSIDE GLU 238 Result Comment: MANAGEMENT OF PATIENT CARE PER NURSING PROTOCOL Performed By: #### L501.080 #### [facility] Point of Care [address] [place] [address] BEDSIDE GLUCOSE Collected: 08/23/2017 Status: F Source: MARK 11:25 AM [facility] REPOSITORY TYPE CODE TESTS RESULT OUT OF REFERENCE UNITS RANGE LAB L501.080 70-110 mg/dL High BEDSIDE GLU 215 Result Comment: MANAGEMENT OF PATIENT CARE PER NURSING PROTOCOL Performed By: #### L501.080 #### [facility] Point of Care [address] [place] [address] BEDSIDE GLUCOSE Collected: 08/23/2017 Status: F Source: MARK 6:44 AM [facility] REPOSITORY TYPE CODE TESTS RESULT OUT OF REFERENCE UNITS RANGE LAB L501.080 70-110 mg/dL High BEDSIDE GLU 169 Result Comment: MANAGEMENT OF PATIENT CARE PER NURSING PROTOCOL Performed By: #### L501.080 #### [facility] Point of Care [address] [place] [address] BEDSIDE GLUCOSE Collected: 08/22/2017 Status: F Source: MARK 9:31 PM [facility] REPOSITORY TYPE CODE TESTS RESULT OUT OF REFERENCE UNITS RANGE LAB L501.080 70-110 mg/dL High BEDSIDE GLU 223 Result Comment: MANAGEMENT OF PATIENT CARE PER NURSING PROTOCOL Performed By: #### L501.080 #### [facility] Point of Care [address] [place] [address] BEDSIDE GLUCOSE Collected: 08/22/2017 Status: F Source: MARK 4:02 PM [facility] REPOSITORY TYPE CODE TESTS RESULT OUT OF REFERENCE UNITS RANGE LAB L501.080 70-110 mg/dL High BEDSIDE GLU 236 Result Comment: MANAGEMENT OF PATIENT CARE PER NURSING PROTOCOL Performed By: #### L501.080 #### [facility] Point of Care [address] [place] [address] BEDSIDE GLUCOSE Collected: 08/22/2017 Status: F Source: MARK 11:16 AM [facility] REPOSITORY TYPE CODE TESTS RESULT OUT OF REFERENCE UNITS RANGE LAB L501.080 70-110 mg/dL High BEDSIDE GLU 213 Result Comment: MANAGEMENT OF PATIENT CARE PER NURSING PROTOCOL Performed By: #### L501.080 #### [facility] Point of Care [address] [place] [address] BEDSIDE GLUCOSE Collected: 08/22/2017 Status: F Source: MARK 7:58 AM [facility] REPOSITORY TYPE CODE TESTS RESULT OUT OF REFERENCE UNITS RANGE LAB L501.080 70-110 mg/dL High BEDSIDE GLU 150 Result Comment: MANAGEMENT OF PATIENT CARE PER NURSING PROTOCOL Performed By: #### L501.080 #### [facility] Point of Care [address] [place], [place] [address] BASIC METABOLIC Collected: 08/22/2017 Status: F Source: MARK PROFILE (BMP) 7:20 AM [facility] REPOSITORY TYPE CODE TESTS RESULT OUT OF RANGE REFERENCE UNITS LAB L501.0100 74-106 mg/dL High GLU 163 Result Comment: Fasting Glucose result greater than or equal to 126 mg/dL suggests DIABETES MELLITUS per A.D.A. criteria. Please note revised GLUCOSE reference range effective 2017. LAB L501.1000 7-18 mg/dL Normal BUN 14 LAB L501.1100 0.70-1.30 mg/dL Normal CREAT,SERUM 1.17 Result Comment: The validity of the calculated GFR AND GFRAA in patients over 70 years has not been determined. Clinical correlation is essential. LAB L501.1110 >60 mL/min Normal EST GFR 65 Result Comment: Non- GFR Calc LAB L501.1115 >60 mL/min Normal EST GFR - AA 78 Result Comment: GFR Calc LAB L501.1255 ml/min Normal Estimated CRCL 53.59 LAB L501.1300 10-20 RATIO Normal BUN/CRE 12.0 LAB L501.2200 8.5-10 mg/dL Low .1 CA 8.3 LAB L501.5300 136-14 mmol/L Normal 5 NA 140 LAB L501.5600 3.5-5. mmol/L Normal 1 K 3.6 LAB L501.5900 98-107 mmol/L Low CL 95 LAB L501.6100 21.0-3 mmol/L High 2.0 CO2 42.0 LAB L501.6200 5-15 Low GAP 3 Performed By: #### L500.2500 #### [facility] [address] [place], [address] BEDSIDE GLUCOSE Collected: 08/21/2017 Status: F Source: MARK 9:43 PM [facility] REPOSITORY TYPE CODE TESTS RESULT OUT OF REFERENCE UNITS RANGE LAB L501.080 70-110 mg/dL High BEDSIDE GLU 245 Result Comment: MANAGEMENT OF PATIENT CARE PER NURSING PROTOCOL Performed By: #### L501.080 #### [facility] [address] [place] [address] BEDSIDE GLUCOSE Collected: 08/21/2017 Status: F Source: [place] 4:50 PM [facility] REPOSITORY TYPE CODE TESTS RESULT OUT OF REFERENCE UNITS RANGE LAB L501.080 70-110 mg/dL High BEDSIDE GLU 233 Result Comment: MANAGEMENT OF PATIENT CARE PER NURSING PROTOCOL Performed By: #### L501.080 #### [facility] [address] [place] [address] ECHOCARDIOGRAM COMPLETE Observed: 08/21/2017 Status: F Source: [place] 4:24 PM [facility] REPOSITORY [facility] [address] [place] [address] Echo Complete W/ Contrast 08/21/17817 MR#: [id number] Acct: [id number] Name: EVERETT IYER Rep #: [id number] : 1945 72 From: Danny Raymundo MD Attending Dr: Varun Aguilar DO Status: ADM IN Ordering Dr: Mica Jones Date: 08/20/17 Location: U Sex: M C Admitted: 08/20/17 Version 2 Reason For Study: CHF Procedure This was a 2D Doppler, Color Flow transthoracic echocardiogram. The study was technically difficult. The study was technically limited. Due to body habitus. Contrast injection was performed. Exam performed portable in patient room. Left Ventricle Normal LV size. Moderate concentric left ventricular hypertrophy. Left ventricular systolic function is normal. The estimated ejection fraction is 60 %. No regional wall motion abnormalities noted. Right Ventricle Normal RV size. Normal systolic function. Pericardium/Pleural No pericardial effusion. Medication Diluted definity 5.0ml given slow IV push to enhance endocardial definition. MMode/2D Measurements AND Calculations LVIDd: 4.7 cm IVSd: 1.6 cm Ao root diam: 3.8 cm LVIDs: 3.2 cm LVPWd: 1.2 cm LA dimension: 5.2 cm FS: 31.6 % LAV(MOD-bp): 225.1 ml LAV(MOD-bp) Indexed: 82.0 ml/m2 LA A4 area: 47.3 cm2 LAV(MOD-sp2): 192.9 ml LAV(MOD-sp4): 237.3 ml Time Measurements MV dec time: 0.22 sec Doppler Measurements AND Calculations MV E max graciela: 103.7 cm/sec Lat Peak E' Graciela: 8.2 cm/sec Med Peak E' Graciela: 7.9 cm/sec MV A max graciela: 92.3 cm/sec E/E' lat: 12.7 E/E' med: 13.2 MV E/A: 1.1 MV V2 max: 119.3 cm/sec Ao V2 max: 165.1 cm/sec LV V1 max: 106.1 cm/sec MV max P.7 mmHg Ao max P.9 mmHg LV V1 max P.5 mmHg MV V2 mean: 83.9 cm/sec MV mean P.1 mmHg MV V2 VTI: 28.4 cm TR max graciela: 217.0 cm/sec TR max P.0 mmHg Interpretation Summary Normal LV size. Moderate concentric left ventricular hypertrophy. Left ventricular systolic function is normal. The estimated ejection fraction is 60 %. The study was technically difficult. The study was technically limited. Contrast injection was performed. Ordering Physician: Mica Jones Referring Physician: Mackenzie Wallace Performed By: Gloria Minor, JADIEL, RVT 08/21/173 Date Danny Raymundo MD CC: Mica Jones; Varun Aguilar DO; Jack Verdugo MD Date Dictated: 08/21/17817 Date Transcribed: 08/21/171622 Aircraft Refueller: Signed CONSULTATION Observed: 08/21/2017 Status: F Source: [place] 4:10 PM [facility] REPOSITORY [facility] Medical Records Department [address] [place] [address] Consultation 08/20/171936 MR#: [id number] Acct: [id number] Name: EVERETT IYER Rep #: [id number] : 1945 72 From: Danny Raymundo MD PCP: Jack Verdugo MD Status: ADM IN Y Location: [place] [address] Reason for Consult Date of Consultation: 08/20/17 Reason for Consultation: Shortness of breath. History of Present Illness: The patient is a 72 y/o M w/ PMHx: , BPH, HTN, Diabetes mellitus type II w/ neuropathy, Tobacco use, CHF Unclear type, CKD stage II, COPD, History of AVR, History of AAA s/p repair, GERD, Morbid Obesity PVD, Hx Ileus, Hx PE on Eliquis prior who presents to [facility] on 08/20[facility]17 with history of progressively worsening dyspnea, worse with exertion, orthopnea, worsening BL LE edema with onset blistering and open serous drainage secondary to severity of edema without improvement with self imposed increased O2 level and noted concurrent O2 and BIPAP placement q HS with recent treatment per his Pulmonary Team . He says that his shortness of breath was not getting better and he had been referred to cardiology to see Dr. Galeano on September 01. However due to the above symptoms he presented to the emergency room where he was thought to be in congestive heart failure and had anasarca and was admitted to the telemetry unit. Cardiology was called for further evaluation and management. He denies any chest pain or palpitations he has had pedal edema and shortness of breath as described above. He does have paroxysmal nocturnal dyspnea and orthopnea and sleeps in a recliner. Past Medical History Allergies/Adverse Reactions: Allergies naphazoline HCl [From Naphcon] Allergy (Severe, Verified 08/20/17 15:18) affected his breathing AFFECTED HIS BREATHING amlodipine besylate [From Norvasc] Allergy (Verified 08/20/17 15:18) Other dextromethorphan Allergy (Verified 08/20/17 15:18) Other levofloxacin [From Levaquin] Adverse Reaction (Mild, Verified 08/20/17 15:18) made me hyperactive made me hyperactive Home Medications: Ambulatory Orders Medication Instructions Recorded Allopurinol [Zyloprim] 300 mg PO DAILY 03/30/17 Atorvastatin Calcium [Lipitor] 40 mg PO QHS 03/30/17 Past Medical History (Chronic Problems): Chronic Problems (Last Reviewed 08/20/17 @ 18:24 by Mackenzie Wallace NP-C) CKD (chronic kidney disease), stage II (Chronic) Chronic respiratory failure with hypoxia (Chronic) Wheezing (Chronic) Heart failure (Chronic) MIKO (obstructive sleep apnea) (Chronic) HTN (hypertension) (Chronic) Anemia (Chronic) BPH (benign prostatic hypertrophy) (Chronic) Tinea unguium (Chronic) Diabetes mellitus with neuropathy (Chronic) Leg swelling (Chronic) Lymphedema of leg (Chronic) Multiple excoriations (Chronic) Asthma (Chronic) COPD (chronic obstructive pulmonary disease) (Chronic) Arthritis (Chronic) Immobility (Chronic) 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 Patient was educated on the signs and symptoms of bleeding as such as hemoptysis, hematemesis, hematochezia or melena stools. Patient has been advised to watch for these symptoms contact the office if they present. Follow-up with Dr. Clay in approximately 8 weeks as previously scheduled. Adynamic ileus (Chronic) Ventral hernia (Chronic) Hypoglycemia (Chronic) Peripheral neuropathy (Chronic) Chronic anemia (Chronic) Benign essential hypertension (Chronic) Benign prostatic hypertrophy without urinary obstruction (Chronic) CKD (chronic kidney disease), stage II (Chronic) CHF (congestive heart failure) (Chronic) CAD (coronary artery disease) (Chronic) Type II diabetes mellitus (Chronic) GERD (gastroesophageal reflux disease) (Chronic) Hypercholesteremia (Chronic) Morbid obesity (Chronic) Pulmonary hypertension (Chronic) H/O aortic valve replacement (Chronic) S/P AAA repair (Chronic) Venous insufficiency (Chronic) Tinea unguium (Chronic) Morbid obesity (Chronic) Surgical History: - - He has a bioprosthetic aortic valve replacement, abdominal aortic aneurysm repair '05, recent surgery to repair a large ventral hernia. Psychiatric History: Anxiety, Depression - *Family History Maternal Family History: Family History (Last Reviewed 08/20/17 @ 18:24 by YVETTE Pimentel) Brother TBI (traumatic brain injury) Sister Ulcerative colitis History Items: Hypertension, - - Patient's father at the age of 94 from old age. Patient's mother at age of 87 with a history of hyperlipidemia and hypertension. Paternal Family History: Family History (Last Reviewed 08/20/17 @ 18:24 by YVETTE Pimentel) Brother TBI (traumatic brain injury) Sister Ulcerative colitis History Items: Hypertension Lives: With Family Smoking Status: Former smoker Tobacco Use: Non-smoker Alcohol: None Review of Systems - Review of Systems General: Denies: Fever, Night Sweats, Fatigue Cardiovascular: Reports: Shortness of Breath, Shortness of Breath at Rest, Shortness of Breath with Exertion, Orthopnea, PND, Peripheral Edema. Denies: Chest Discomfort, Palpitations, Lightheadedness, Dizziness, Near Syncope, Syncope Respiratory: Denies: Cough, Sputum Production, Hemoptysis Gastrointestinal: Denies: Hematemesis, Hematochezia, Melena Genitourinary: Denies: Dysuria, Hematuria Skin: Denies: Rash Subjectve: Morbidly obese gentleman in no apparent distress. Objective: Vital Signs Temp Pulse Resp BP Pulse Ox 98.5 F 90 27 H 143/64 H 93 08/20/17 14:49 08/20/17 18:01 08/20/17 16:46 08/20/17 16:46 08/20/17 16:46 Oxygen Flow Rate (L/min) 7 Oxygen Delivery Method Nasal Cannula Weight: 386 lb 3.998 oz Body Mass Index (BMI) 58.7 General: Awake, Obese HEENT: PERRL, EOMI, Sclera Non Icteric Neck: Supple, Good ROM, No Lymph Node Enlargement Lungs: Diminished Boyd Bases Cardiovascular: Regular Rhythm, Normal S1, Normal S2, No Rubs, No Gallops, [place] Prosthetic S1 Vascular: No Carotid Bruits, Normal Femoral Pulses, Normal Radial Pulses, Normal Dorsalis Pedal Pulse, Normal Posterior Tibial Pulses Abdomen: Bowel Sounds Present, Soft, Non Tender, No HSM, No Organomegaly Extremities: No Cyanosis, No Clubbing, Bilateral Edema +3 Neurological: No Focal Motor or Sensory Deficit Rhythm: EKG: Normal sinus rhythm with a rate of 93 bpm and incomplete right bundle branch block Assessment/Plan 1. Congestive heart failure-chronic diastolic He appears to have congestive heart failure which appears to be chronic and diastolic. I recommend that we obtain an echocardiogram to reassess his left ventricular function. The plan will be to continue him on an MIKE inhibitor and diuretics as well as control his blood pressure and see how he does. I do not think that this is secondary to a valve dysfunction. But the echocardiogram would help elucidate that. 2. 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 We would obtain an echocardiogram to assess the above more clearly. 3. Hypertension His blood pressure appears to be under fair control. I recommend continuing the losartan as well as the beta-maryam. He is on clonidine. We may be a chance to make some changes to the above depending on how he responds to this. 4. Abdominal aortic aneurysm-is post repair He is status post repair of the abdominal aortic aneurysm. At this time I do not have any indication to think that there is any problem with the above. However control of his blood pressure is paramount. 5. Obesity Patient is significantly obese and he has been counseled about maintaining a more appropriate weight. 6. History of pulmonary embolism. He is at high risk for recurrent pulmonary embolism and I would recommend that we start him back on his Eliquis 5 mg twice a day. Intravenous heparin may pose a risk and may mask any retroperitoneal bleed. Thank you for allowing me to participate in the care of your patient. Please don't hesitate to call if any issues arise 08/21/17 1610 <Electronically signed by Danny Raymundo MD> Date Danny Raymundo MD Cosigner Signature (if applicable): Date CC: Danny Raymundo MD; Khari Clay D.O.; Jack Verdugo MD Signed CONSULTATION Observed: 08/21/2017 Status: F Source: [place] 2:29 PM [facility] REPOSITORY [facility] Medical Records Department [address] [facility] [place] [address] Consultation 08/21/17 0728 MR#: [id number] Acct: [id number] Name: EVERETT IYER Rep #: [id number] : 1945 72 From: Khari Clay DO PCP: Jack Verdugo MD Status: ADM IN Location: [place] [address] Reason for Consult Date of Consultation: 08/21/17 Reason for Consultation: CHF exacerbation History of Present Illness: The patient is a 72-year-old male, with a history as outlined below, who presented to the emergency department with worsening shortness of breath and hypoxemia after failed outpatient treatment for presumptive decompensated heart failure. I initially saw the patient when he was admitted to the hospital on February 2016 with acute hypoxic respiratory insufficiency due to underlying RV systolic dysfunction and pulmonary hypertension. The patient has known moderately severe obstructive lung disease with significant response to aerosolized bronchodilators and evidence of air trapping and reduction in diffusing capacity, based off of PFTs completed in April 2016. The patient also has known severe obstructive sleep apnea, which was diagnosed in December 2015. His last surface echocardiogram from November 2015 showed evidence of a moderately dilated RV with RV systolic dysfunction and a right ventricular systolic pressure which was estimated to be 47 mmHg. The patient has an approximate [id number] smoking history, having quit in 1966. Patient eventually underwent a titration study which was recommended that he be placed on BiPAP therapy with a pressure setting of 18/12 cm of water. I last saw the patient at the beginning of July. At that time it was noted to the patient had failed to obtain repeat pulmonary function testing. He was also noted at that time to be noncompliant with the use of his home BiPAP and was using his maintenance inhalers and appropriately. He had been utilizing both Advair and Symbicort, along with Spiriva on an as-needed basis. The patient has poor overall insight into his disease. Despite the patient's BiPAP compliance report indicating that he had only utilized his machine 6 out of the last 30 days, he remained insistent that he was compliant with its use. Since my office visit, the patient has been seen by our nurse practitioner on 2 separate occasions, August 05 and . He was noted to have increasing fluid retention and worsening hypoxia. Attempts to augment his Lasix regimen was attempted. However, due to the patient's continued clinical deterioration, he was referred to the emergency department for hospital admission. On presentation to the emergency department, the patient was noted to be hypoxic on 7 L of supplemental flow rate at 82%. He was hypertensive with a blood pressure 155/73 and tachypneic. Laboratory evaluation revealed no evidence of a leukocytosis. Coagulation profile is within normal limits. Chemistry profile revealed a chronically elevated serum bicarbonate to 37. Troponin was negative. BNP was mildly elevated to 181. CTA chest was obtained which showed the possibility of residual clot within the right upper lobe. However, the remaining peripheral branches were suboptimally visualized due to poor contrast bolus. There was evidence of cardiomegaly and a mild degree of edema. Past Medical History Past Medical History (Chronic Problems): Chronic Problems (Last Reviewed 08/20/17 @ 18:24 by YVETTE Pimentel) CKD (chronic kidney disease), stage II (Chronic) Chronic respiratory failure with hypoxia (Chronic) Wheezing (Chronic) Heart failure (Chronic) MIKO (obstructive sleep apnea) (Chronic) HTN (hypertension) (Chronic) Anemia (Chronic) BPH (benign prostatic hypertrophy) (Chronic) Tinea unguium (Chronic) Diabetes mellitus with neuropathy (Chronic) Leg swelling (Chronic) Lymphedema of leg (Chronic) Multiple excoriations (Chronic) Asthma (Chronic) COPD (chronic obstructive pulmonary disease) (Chronic) Arthritis (Chronic) Immobility (Chronic) 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 Patient was educated on the signs and symptoms of bleeding as such as hemoptysis, hematemesis, hematochezia or melena stools. Patient has been advised to watch for these symptoms contact the office if they present. Follow-up with Dr. Clay in approximately 8 weeks as previously scheduled. Adynamic ileus (Chronic) Ventral hernia (Chronic) Hypoglycemia (Chronic) Peripheral neuropathy (Chronic) Chronic anemia (Chronic) Benign essential hypertension (Chronic) Benign prostatic hypertrophy without urinary obstruction (Chronic) CKD (chronic kidney disease), stage II (Chronic) CHF (congestive heart failure) (Chronic) CAD (coronary artery disease) (Chronic) Type II diabetes mellitus (Chronic) GERD (gastroesophageal reflux disease) (Chronic) Hypercholesteremia (Chronic) Morbid obesity (Chronic) Pulmonary hypertension (Chronic) H/O aortic valve replacement (Chronic) S/P AAA repair (Chronic) Venous insufficiency (Chronic) Tinea unguium (Chronic) Morbid obesity (Chronic) Allergies naphazoline HCl [From Naphcon] Allergy (Severe, Verified 08/20/17 15:18) affected his breathing AFFECTED HIS BREATHING amlodipine besylate [From Norvasc] Allergy (Verified 08/20/17 15:18) Other dextromethorphan Allergy (Verified 08/20/17 15:18) Other levofloxacin [From Levaquin] Adverse Reaction (Mild, Verified 08/20/17 15:18) made me hyperactive made me hyperactive Home Medications: Ambulatory Orders Medication Instructions Recorded Allopurinol [Zyloprim] 300 mg PO DAILY 03/30/17 Atorvastatin Calcium [Lipitor] 40 mg PO QHS 03/30/17 Surgical History: - - He has a bioprosthetic aortic valve replacement, abdominal aortic aneurysm repair '05, recent surgery to repair a large ventral hernia. Psychiatric History: Anxiety, Depression Lives: With Family Smoking Status: Former smoker Tobacco Use: Non-smoker Alcohol: None - *Family History Maternal History Items: Hypertension, - - Patient's father at the age of 94 from old age. Patient's mother at age of 87 with a history of hyperlipidemia and hypertension. Paternal History Items: Hypertension Review of Systems Constitutional: Reports: Weight Change. Denies: Chills, Fever Eyes: Denies: Blurred vision, Double vision HEENT: Denies: Head Aches, Sinus Congestion, Sinus Drainage Cardiovascular: Denies: Chest Pain, Palpitations Respiratory: Reports: Shortness of Breath. Denies: Sputum production Gastrointestinal: Denies: Abdominal Pain, Nausea, Vomiting Genitourinary: Denies: Dysuria Musculoskeletal: Denies: Joint Pain, Joint Tenderness Skin: Denies: Rash, Wounds Neurological: Denies: Numbness, Tingling, Focal weakness Psychiatric: Denies: Anxiety, Depression, Homicidal Ideations, Suicidal Ideations Hematologic/ Lymphatic: Reports: Hx of blood clot Patient Problems: Active and Suspected Problems (Last Reviewed 08/20/17 @ 18:24 by Mackenzie Wallace NP-Ranjit) Open wound, lower leg (Acute) Objective: The patient's most recent lab work, culture data and imaging studies have all been personally reviewed. - Physical Exam General: Alert, Cooperative, No apparent distress, - - Morbidly obese. Resting comfortably in bedside recliner. HEENT: Atraumatic, PERRLA, Normocephalic Oral: Moist Mucosa, No Gingival or Mucosal Lesions/ Ulcerations Neck: Supple, No Nodes, Trachea Midline, - - Difficult to assess for JVD given size of neck. Lungs: No rhonchi, No wheeze, Diminished, Rales Cardiovascular: Regular rate, Regular Rhythm, No rub noted, No Gallop Abdomen: Bowel Sounds Present, Soft, Distended, Obese, Hernia Extremities: No clubbing, Diminished Peripheral Pulses, Edema Skin: - - Lower extremity venous stasis dermatitis. Musculoskeletal: No Muscle Wasting Lymphatic: No Cervical, Supraclavicular, or Inguinal Adenopathy Neurological: Neuro grossly intact Psych/Mental Status: Normal Affect, Appropriate Vital Signs Temp Pulse Resp BP Pulse Ox 98.2 F 72 16 139/55 H 96 08/21/17 03:05 08/21/17 03:05 08/21/17 03:05 08/21/17 03:05 08/21/17 03:05 Oxygen Flow Rate (L/min) 7 Oxygen Delivery Method CPAP Weight: 384 lb 0.724 oz Body Mass Index (BMI) 58.7 Intake and Output for Last 24 Hours Intake Total 1439.1 / 1439.1 Output Total 1500 / 1500 2300 / 2300 Balance -1500 / -1500 -860.9 / -860.9 Laboratory Tests Past 24 Hrs WBC 5.6 RBC 3.19 L Hgb 8.7 L Hct 28.9 L MCV 90.6 MCH 27.3 MCHC 30.1 L RDW 14.2 RDW Differential 45.5 H WBC RBC Hgb Hct MCV MCH MCHC RDW RDW Differential Plt Count MPV Sodium 139 POC Glucose POC Glucose 181 H 181 H 239 H POC Glucose 199 H Clinical Impression(s) from Imaging Studies Chest X-Ray 08/20/17 15:08 IMPRESSION: There is moderate enlargement of the cardiac silhouette with diffuse edema and a small right effusion. There is bibasilar atelectasis. Electronically Signed: Antoinette Blank MD at 16:00 EDT Tel Direct: [phone], Service support , Chest CTA 08/20/17 15:41 IMPRESSION: There is no evidence of pulmonary embolus in the main pulmonary artery or right and left pulmonary arteries. There may be minimal residual chronic clot within a few branches of the right upper lobe. The remaining peripheral branches are suboptimally evaluated due to poor contrast bolus and breathing motion artifact. There is mild enlargement of the heart with mild edema. There is a moderate right pleural effusion and a small left pleural effusion. There is dense atelectasis in the right lower lobe and minimal atelectasis in the left lower lobe. There is herniation of stomach or colon in the midline epigastric region with a defect measuring 8 cm along the anterior upper abdominal wall. Electronically Signed: Antoinette Blank MD at 17:04 EDT Tel Direct: [phone], Service support , Assessment/Plan Active and Suspected Problems (Last Reviewed 08/20/17 @ 18:24 by Mackenzie Wallace NP-Ranjit) Open wound, lower leg (Acute) RECOMMENDATIONS: 1. Continue scheduled aerosol regimen 2. Resume Eliquis 3. Continue attempts at volume optimization with IV Lasix 4. I do not see an indication for antibiotics at this time 5. The patient is a chronic CO2 retainer. Would recommend keeping oxygen saturations 88-92%. 6. Continue nightly BiPAP therapy with a pressure setting of 18/12 cm of water. 7. Recommend physical therapy evaluation 8. Strongly recommend chcf placement at the time of discharge. The patient has poor insight and poor overall compliance with medical therapy. IMPRESSIONS: 1. Acute on chronic hypoxemic and hypercarbic respiratory failure Likely multifactorial in etiology with baseline COPD, morbid obesity, noncompliance with outpatient inhaler regimen, noncompliance with the use of noninvasive positive pressure ventilation and decompensated heart failure contributing. In addition, the patient is a known pulmonary embolism first diagnosed in March 2017, for which she reportedly only completed a one-month course of Eliquis. Agree with continued attempts at volume optimization with IV Lasix. Await repeat echocardiogram. Continue scheduled aerosol treatments. I do not see an indication for antibiotics at this time. Maintain oxygen saturations 88-92%. Continue BiPAP therapy at 18/12 cm of water with naps and nightly. 2. History of pulmonary embolism The patient was initially diagnosed with a PE in March 2017. He only completed approximately 1 month of treatment. Agree with resumption of Eliquis. 3. Obstructive sleep apnea The patient is known to be noncompliant with the use of BiPAP therapy on an outpatient basis. His most recent compliance report only demonstrated 27% compliance over the last 30 days. 4. Known COPD The patient has also been noncompliant with the use of his outpatient inhaler regimen. I spoke to him at length regarding the importance of this at his last office visit. Despite this, he readily admits that he ran out of his medications recently and did not attempt to refill them. Continue scheduled aerosol treatments as ordered. 4. Super morbid obesity/noncompliance with medical therapy/aortic valve replacement/hypertension/diabetes Complicates care, management, recovery and prognosis. Continue current insulin regimen. Recommend physical therapy evaluation. Encourage incentive spirometer use and mobilize patient as tolerated. This note was generated with [employer] dictation software. It may contain incorrect words, spelling, and punctuation that were not noted in checking the note before signing. Code Visit Inpatient E AND M: 63281 Init Hosp L3 08/21/17 1423 <Electronically signed by Khari Clay DO> Date Khari Clay DO Cosigner Signature (if applicable): Date CC: Danny Raymundo MD; Khari Clay D.O.; Jack Verdugo MD Signed BEDSIDE GLUCOSE Collected: 08/21/2017 Status: F Source: MARK 11:07 AM [facility] REPOSITORY TYPE CODE TESTS RESULT OUT OF REFERENCE UNITS RANGE LAB L501.080 70-110 mg/dL High BEDSIDE GLU 242 Result Comment: MANAGEMENT OF PATIENT CARE PER NURSING PROTOCOL Performed By: #### L501.080 #### [facility] Point of Care [address] [place], [place] [address] BEDSIDE GLUCOSE Collected: 08/21/2017 Status: F Source: MARK 6:45 AM [facility] REPOSITORY TYPE CODE TESTS RESULT OUT OF REFERENCE UNITS RANGE LAB L501.080 70-110 mg/dL High BEDSIDE GLU 181 Result Comment: MANAGEMENT OF PATIENT CARE PER NURSING PROTOCOL Performed By: #### L501.080 #### [facility] Point of Care [address] [place], [place] [address] CBC-COMPLETE BLOOD CNT Collected: 08/21/2017 Status: F Source: MARK NO DIFF 6:15 AM [facility] REPOSITORY TYPE CODE TESTS RESULT OUT OF RANGE REFERENCE UNITS LAB L100.1000 4.4-11.0 K/mm3 Normal WBC 5.6 LAB L100.1200 4.6-6.2 M/mm3 Low RBC 3.19 LAB L100.1300 13.0-16.5 g/dl Low HGB 8.7 LAB L100.1400 40-54 % Low HCT 28.9 LAB L100.1500 80-94 fL Normal MCV 90.6 LAB L100.1600 27.0-32.0 pg Normal MCH 27.3 LAB L100.1700 32-36 g/gl Low MCHC 30.1 LAB L100.1810 11.6-14.6 % Normal RDW CV 14.2 LAB L100.1820 35.1-43.9 fl High RDW SD 45.5 LAB L100.1900 150-450 K/mm3 Normal PLT 210 LAB L100.2000 6.2-12.0 fl Normal MPV 8.8 Performed By: #### L100.0500 #### [facility] [address] [place], [address] BASIC METABOLIC Collected: 08/21/2017 Status: F Source: MARK PROFILE (BMP) 6:15 AM [facility] REPOSITORY Order Comment: 'TROP' Serial specimen #1, #2, #3, or #4: 4 TYPE CODE TESTS RESULT OUT OF RANGE REFERENCE UNITS LAB L501.0100 74-106 mg/dL High GLU 172 Result Comment: Fasting Glucose result greater than or equal to 126 mg/dL suggests DIABETES MELLITUS per A.D.A. criteria. Please note revised GLUCOSE reference range effective 2017. LAB L501.1000 7-18 mg/dL Normal BUN 12 LAB L501.1100 0.70-1.30 mg/dL Normal CREAT,SERUM 1.05 Result Comment: The validity of the calculated GFR AND GFRAA in patients over 70 years has not been determined. Clinical correlation is essential. LAB L501.1110 >60 mL/min Normal EST GFR 73 Result Comment: Non- GFR Calc LAB L501.1115 >60 mL/min Normal EST GFR - AA 89 Result Comment: GFR Calc LAB L501.1255 ml/min Normal Estimated CRCL 59.71 LAB L501.1300 10-20 RATIO Normal BUN/CRE 11.4 LAB L501.2200 8.5-10 mg/dL Low .1 CA 8.2 LAB L501.5300 136-14 mmol/L Normal 5 NA 139 LAB L501.5600 3.5-5. mmol/L Low 1 K 3.4 LAB L501.5900 98-107 mmol/L Low CL 97 LAB L501.6100 21.0-3 mmol/L High 2.0 CO2 37.0 LAB L501.6200 5-15 Normal GAP 5 Performed By: #### L500.2500, L500.4100, L501.4010 #### [facility] [address] [place], [place], [address] LIPID PROFILE Collected: 08/21/2017 Status: F Source: [place] 6:15 AM [facility] REPOSITORY Order Comment: 'TROP' Serial specimen #1, #2, #3, or #4: 4 TYPE CODE TESTS RESULT OUT OF RANGE REFERENCE UNITS LAB L501.4900 200 mg/dL Normal CHOL 127 Result Comment: <200 mg/dL Desirable 200-240 mg/dL Borderline >240 mg/dL High Risk LAB L501.5000 mg/dL High TRIG 332 Result Comment: The drugs N-Acetylcysteine and Metamizole may falsely depress this assay. Serum Triglycerides Reference Interval Normal <150 mg/dL Borderline high 150 - 199 mg/dL High 200 - 499 mg/dL Very High > or = 500 mg/dL LAB L501.6400 mg/dL Low HDL 25 Result Comment: The drugs N-Acetylcysteine and Metamizole may falsely depress this assay. Reference Range HDL <40 mg/dL Low HDL Cholesterol HDL >or= 60 mg/dL High HDL Cholesterol LAB L501.6500 0-130 mg/dL Normal LDL 36 LAB L501.6600 5-40 mg/dL High VLDL 66 Performed By: #### L500.2500, L500.4100, L501.4010 #### [facility] [address] [place], [address] TROPONIN-I Collected: 08/21/2017 Status: F Source: [place] 6:15 AM [facility] REPOSITORY Order Comment: 'TROP' Serial specimen #1, #2, #3, or #4: 4 TYPE CODE TESTS RESULT OUT OF RANGE REFERENCE UNITS LAB L501.4010 <0.06 ng/mL Normal < 0.02 TROPONIN-I Result Comment: TROPONIN-I EXPECTED VALUES <0.05 NEGATIVE 0.06 - 0.59 AT RISK OF [place] > OR = 0.60 SUGGEST [place] Performed By: #### L500.2500, L500.4100, L501.4010 #### [facility] [address] [place], [place], [id number] IRON+IRON BINDING Collected: 08/21/2017 Status: F Source: MARK CAPACITY 6:15 AM [facility] REPOSITORY TYPE CODE TESTS RESULT OUT OF REFERENCE UNITS RANGE LAB L503.6075 250-450 ug/dL Low TIBC 188 LAB L503.6150 65-175 ug/dL Low IRON 24 LAB L503.6250 15.0-55.0 % Low IRON SATURATION 12.8 Performed By: #### L503.6030 #### [facility] [address] [place], [place], [address] BEDSIDE GLUCOSE Collected: 08/21/2017 Status: F Source: MARK 3:09 AM [facility] REPOSITORY TYPE CODE TESTS RESULT OUT OF REFERENCE UNITS RANGE LAB L501.080 70-110 mg/dL High BEDSIDE GLU 181 Result Comment: MANAGEMENT OF PATIENT CARE PER NURSING PROTOCOL Performed By: #### L501.080 #### [facility] Point of Care [address] [place] [address]. [place], [place] [address] TROPONIN-I Collected: 08/20/2017 Status: F Source: MARK 11:04 PM [facility] REPOSITORY Order Comment: 'TROP' Serial specimen #1, #2, #3, or #4: 3 TYPE CODE TESTS RESULT OUT OF RANGE REFERENCE UNITS LAB L501.4010 <0.06 ng/mL Normal < 0.02 TROPONIN-I Result Comment: TROPONIN-I EXPECTED VALUES <0.05 NEGATIVE 0.06 - 0.59 AT RISK OF [place] > OR = 0.60 SUGGEST [place] Performed By: #### L501.4010 #### [facility] [address] [place] [address]. [place], [place], [address] BEDSIDE GLUCOSE Collected: 08/20/2017 Status: F Source: MARK 9:32 PM [facility] REPOSITORY TYPE CODE TESTS RESULT OUT OF REFERENCE UNITS RANGE LAB L501.080 70-110 mg/dL High BEDSIDE GLU 239 Result Comment: MANAGEMENT OF PATIENT CARE PER NURSING PROTOCOL Performed By: #### L501.080 #### [facility] Point of Care [address] [place] [address]. [place], [place] [address] PULMONARY VISIT REPORT Observed: 08/20/2017 Status: F Source: MARK 6:32 PM [facility] REPOSITORY [facility] [address] [place] [address] OFFICE VISIT Date of Service: 08/20/17 MR#: [id number] Acct: [id number] Name: EVERETT IYER Rep #: [id number] : 1945 Provider: Mackenzie Wallace Age/Sex: 72/M Location: [facility] [place] [facility] [place] Status: Signed Assessment AND Plan 1. Chronic respiratory failure with hypoxia J96.11 Status Chronic Plan Deteriorated. Failed outpatient diuresis therapy. Many symptoms indicate worsening CHF. Contacted Dr. Clay to inform him of my concerns and my recommendation that the patient be evaluated in the emergency department for probable hospital admission. Given his kidney failure it is difficult to diurese him with oral Lasix. The friend will be transporting him by wheelchair to the emergency department for evaluation. Also discussed the case with the hospitalist on-call for admissions, who is agreeable to admitting him from the emergency department. 2. CKD (chronic kidney disease), stage II N18.2 Status Chronic Plan Deteriorated. Failed outpatient therapy, requires hospital admission. Sent to the emergency department for evaluation. Plan Detail Other Medications Discontinued: furosemide Discontinued Reason: Order edited - Discontinuing o80 mg PO BID 6 tabs 0RF riginal order HPI 2 W FU: Chief Complaint: Shortness of breath HPI Comments Details: This patient presents to the office today for follow- up after an acute visit for increasing shortness of breath. He is in a wheelchair, wearing nasal cannula oxygen and he is accompanied by his daughter's boyfriend. He reports that he continues to experience significant shortness of breath, exertion, conversational and even at rest. He is unable to lie flat. He has noticed an increase in lower extremity edema. His lower extremities are not only swollen bilaterally but are red and warm to the touch as well as painful per the report of the visit her here today. He also has weeping. He currently is requiring 7-8 L of nasal cannula oxygen. He not only is using supplemental oxygen but is also applying his BiPAP over the oxygen during the day as a rescue. He has used all of his inhalers, more frequently than prescribed, to the point that they are all exhausted before they are due to be refilled. Currently he is out of his Ventolin rescue inhaler as well as his Advair. He is now using [id number] Vicks inhaler to try to treat his shortness of breath. He is also exhausted the use of his Spiriva. He denies any chest pain or palpitations. He denies any cough, wheezing or hemoptysis. He denies any fever, chills or body aches. See complete review of systems. He has been compliant with his Lasix 80 mg twice daily. He does not currently have a jointer submarine cable and his cardiology referral is pending. Intake Vital Signs08/20/17 Height 5 ft 8 in 08/20/17 Weight: 395 lb 08/20/17 Body Mass Index (BMI) 60.0 Intake Visit Reasons: 2 W FU Accompanied by: Son Allergies naphazoline HCl [From Naphcon] Allergy (Severe, Verified 08/20/17 15:18) affected his breathing amlodipine besylate [From Norvasc] Allergy (Verified 08/20/17 15:18) Other dextromethorphan Allergy (Verified 08/20/17 15:18) Other levofloxacin [From Levaquin] Adverse Reaction (Mild, Verified 08/20/17 15:18) made me hyperactive Medications Allopurinol [Zyloprim] 300 mg PO DAILY 03/30/17 [History Confirmed 08/20/17] Atorvastatin Calcium [Lipitor] 40 mg PO QHS 03/30/17 [History Confirmed 08/20/17] Clonidine Patch [Catapres-Tts3] 0.3 mg TOPICAL FR 03/30/17 [History Confirmed 08/20/17] Clopidogrel Bisulfate [Plavix] 75 mg PO DAILY 03/30/17 [History Confirmed 08/20/17] Ferrous Sulfate 325 mg PO DAILY 03/30/17 [History Confirmed 08/20/17] Finasteride [Proscar] 5 mg PO DAILY 03/30/17 [History Confirmed 08/20/17] Glimepiride [Amaryl] 8 mg PO BREAKFAST 03/30/17 [History Confirmed 08/20/17] Hydroxyzine HCl 25 mg PO TID PRN 03/30/17 [History Confirmed 08/20/17] Insulin Glargine [Lantus SoloStar Pen] 30 units PO BID 03/30/17 [History Confirmed 08/20/17] Lansoprazole 15 mg PO DAILY 03/30/17 [History Confirmed 08/20/17] Losartan Potassium 100 mg PO DAILY 03/30/17 [History Confirmed 08/20/17] Magnesium Oxide [Mag-Ox 400] 800 mg PO BID 03/30/17 [History Confirmed 08/20/17] Metformin HCl [Glucophage] 500 mg PO TID 03/30/17 [History Confirmed 08/20/17] Metoprolol Tartrate [Lopressor (beta maryam)] 50 mg PO BID 03/30/17 [History Confirmed 08/20/17] Multivitamins,Therapeutic [Multivitamin] 1 tab PO DAILY 03/30/17 [History Confirmed 08/20/17] Sertraline HCl [Zoloft] 50 mg PO QHS 03/30/17 [History Confirmed 08/20/17] Spironolactone 25 mg PO BID 03/30/17 [History Confirmed 08/20/17] Terazosin HCl [Hytrin] 10 mg PO QHS 03/30/17 [History Confirmed 08/20/17] albuterol sulfate HFA 90 mcg/actuation aerosol inhaler 2 puff PO Q6H PRN PRN #18 g 08/05/17 [Rx Confirmed 08/20/17] Albuterol Aerosols [Ventolin Aerosols] 2.5 mg INHALATION Q4H PRN 08/20/17 [History Confirmed 08/20/17] Fluticasone/Salmeterol [Advair 500-50 Diskus] 2 puff INHALATION Q12H 08/20/17 [History Confirmed 08/20/17] Furosemide [Lasix] 80 mg PO BID 08/20/17 [History Confirmed 08/20/17] Sertraline HCl [Zoloft] 100 mg PO DAILY 08/20/17 [History Confirmed 08/20/17] PFS Medical History Wheezing (Chronic) Dyspnea (Acute) Heart failure (Chronic) MIKO (obstructive sleep apnea) (Chronic) HTN (hypertension) (Chronic) Tobacco abuse (Resolved) Anemia (Chronic) BPH (benign prostatic hypertrophy) (Chronic) Tinea unguium (Chronic) Diabetes mellitus with neuropathy (Chronic) Leg swelling (Chronic) Edema of both legs (Acute) Lymphedema of leg (Chronic) Multiple excoriations (Chronic) Asthma (Chronic) COPD (chronic obstructive pulmonary disease) (Chronic) Arthritis (Chronic) Immobility (Chronic) Pulmonary embolism on right (Chronic) CAP (community acquired pneumonia) (Resolved) Adynamic ileus (Chronic) Ventral hernia (Chronic) Nausea and vomiting (Inactive) Hypoglycemia (Chronic) Peripheral neuropathy (Chronic) Chronic anemia (Chronic) Benign essential hypertension (Chronic) Benign prostatic hypertrophy without urinary obstruction (Chronic) CKD (chronic kidney disease), stage II (Chronic) CHF (congestive heart failure) (Chronic) CAD (coronary artery disease) (Chronic) Type II diabetes mellitus (Chronic) GERD (gastroesophageal reflux disease) (Chronic) Hypercholesteremia (Chronic) Morbid obesity (Chronic) Pulmonary hypertension (Chronic) Venous insufficiency (Chronic) Tinea unguium (Chronic) Morbid obesity (Chronic) Surgical History H/O aortic valve replacement (Chronic) S/P AAA repair (Chronic) Family History Brother TBI (traumatic brain injury) Sister Ulcerative colitis Social History adopted: No household members: spouse housing: house current occupational status: retired current occupational exposures/hazards: No pets and animals: No history of recent travel: No Smoking Status: Former smoker second hand exposure: Yes alcohol intake: never substance use type: does not use Review of Systems Const CONSTITUTIONAL: Positive daytime sleepiness, sleeping in chair, fatigue and weight gain; negative anorexia, body ache, chills, fever(s), night sweats, oral thrush, stops breathing during sleep, weight loss, weight loss, frequent colds, seasonal allergies, other, headache(s) or orthopnea EETM Ear Nose Throat Mouth: Positive hearing normal; negative hard of hearing, hoarseness, dry mouth in morning, change in vision, itchy eyes, eye pain, swallowing Difficulty, ear pain, nose bleed, headache(s), mouth pain, nasal congestion, nasal discharge, post nasal drip, sinus pain, sinus pressure, sore throat or other Cardio Cardiovascular: Positive edema Location: lower extremity; negative chest pain, chest pain at rest, chest pain with activity, irregular heart rhythm, shortness of breath when lying down, palpitations, murmur or other Resp Respiratory: Positive as per HPI, shortness of breath shortness of breath: Positive while talking, with activity, lying down and worsening, wheezing, cough cough: Positive productive color: Positive thick and yellow, inhalers, increase use of rescue inhalers and snoring; negative pain with cough, chest congestion, chest tightness, pain on inspiration, apnea or other Gastro Gastrointestional: Negative bloody stools, change in appetite, difficulty swallowing, reflux, hematemesis, melena stool, loose stool, constipation or other Genitourinary: Negative blood in urine, nocturia, pain with urination or other Musc Musculoskeletal: Negative body pain, back pain, neck pain or other Skin/Breast Skin/Breast: Positive dry skin and other (boyd leg wounds ); negative itching, rash, unusual bruising or breast lump Neuro Neurological: Positive weakness; negative restless legs, confusion or other Psych Psychocological: Negative abnormal sleep pattern, anxiety, thoughts of hurting self/others, hopelessness or other Lymph Lymphatic: Negative easy bleeding, easy bruising, swollen lymph nodes or other Exam Const Constitutional: Positive conversant, cooperative, well developed, well nourished, poor hygiene, ill appearing, wearing supplemental oxygen, dyspenic and obese Head Head: Positive normocephalic and atraumatic; negative cyanosis of lips/distal nose Eyes Eye: Positive clear conjunctiva and nystagmus; negative scleral abnormality Ears Ear: Positive hearing normal and external ears normal; negative hard of hearing Nose Nose: Positive external nose normal and no nasal discharge; negative epistaxis Mouth Mouth: Positive oral mucosae normal, no lesions, poor dentition and crowded posterior oropharynx; negative post nasal drip, malodorous breath or oral thrush present Mallampati Score: IV: Mallampati Score Neck Neck: Positive normal visual inspection, full ROM, trachea midline, thick neck and male neck greater than 43 cm (17 in); negative lymphadenopathy, JVD or tender Chest Wall Chest: Positive normal inspection of the chest and symmetric chest movement; negative increased A/P diameter Resp lung sounds: Positive rhonchi rhonchi: Positive bilateral, increased work of breathing and use of accessory muscles; negative wheezes, wheeze present on forced exhalation, rales or dullness to percussion Cardio Cardiac: Positive S1 normal and S2 normal; negative murmur, regular rate or regular rhythm GI GI: Positive normal to inspection, normal bowel sounds and obese; negative distended Genitourinary: Positive deferred Musc Musculoskeletal: Positive ROM normal and in a wheelchair; negative kyphosis or scoliosis Skin Pulmonary Skin Exam: Positive ulcers (right lower leg with an open weeping wound); negative rash, intact, erythema, scaly, dermal atrophy or lesion Pulses Pulse: Yes pulses normal x4 extremities Extremities Extremities: Yes edema Location: lower extremity location: Bilateral pitting +3 (red, warm and seeping), Yes capillary refill normal, No clubbing, No cyanosis, No stasis dermatitis Neuro Neurologic: Yes conversant, Yes no focal neuro deficits, Yes cooperative, Yes normal cognition, Yes normal coordination, Yes normal concentration, Yes understands questions, No tremor Lymph Lymphatic: No lymphadenopathy, No tenderness, No cervical adenopathy, No axillary adenopathy Psych Appearance: Positive grossly normal, eye contact and well kempt Mental Status: Positive mental status grossly normal Mood: Positive congruent mood Affect: Positive normal affect Coding Level of Care Code Off vis,est,level 5 Diagnoses Chronic respiratory failure with hypoxia J96.11 CKD (chronic kidney disease), stage II N18.2 08/20/17 1832 <Electronically signed by Mackenzie CRAWFORD> Date Mackenzie CRAWFORD Cosigner Signature: Date (if applicable) CC: Jack Verdugo MD BEDSIDE GLUCOSE Collected: 08/20/2017 Status: F Source: MARK 6:06 PM [facility] REPOSITORY TYPE CODE TESTS RESULT OUT OF REFERENCE UNITS RANGE LAB L501.080 70-110 mg/dL High BEDSIDE GLU 199 Result Comment: MANAGEMENT OF PATIENT CARE PER NURSING PROTOCOL Performed By: #### L501.080 #### [facility] Laboratory Point of Care [address] [place] [address] EMERGENCY DEPARTMENT Observed: 08/20/2017 Status: F Source: MARK SUMMARY 5:15 PM [facility] REPOSITORY [facility] Medical Records Department [address] [place] [address] Emergency Department Summary 08/20/17 1512 MR#: [id number] Acct: [id number] Name: EVERETT IYER Rep #: [id number] : 1945 72 From: Shreya Morgan MD PCP: Jack Verdugo MD Status: ADM IN - ER Visit Summary Date of Service: 08/20/17 Chief Complaint: Shortness of breath History of Present Illness: The patient is a 72 M presenting with shortness of breath since Thursday. Patient states that this has been progressively worsening at home. He has increasing leg swelling. He has dyspnea with exertion. He has mild cough. He denies chest pain. He was seen at Dr. Clay's office today and was sent to the ED for hospital admission. Physical Examination: Vitals are stable. Patient is afebrile. Alert no acute distress. HEENT exam is unremarkable. Neck is supple. Lungs are diminished bilaterally. Heart is regular rate and rhythm. Abdomen is soft nontender distended. reducible hernia Extremities symmetric edema Skin is warm and dry. No focal neurologic deficit. Remainder of exam is unremarkable. Emergency Department Course and Treatment: Patient is given albuterol aerosols. EKG is sinus rate of 93 with no acute ischemic changes. Chest x-ray shows cardiomegaly, CHF, small right pleural effusion. CBC normal except hemoglobin 9.8. Chemistry normal except CO2 37, glucose 213. Troponin is negative. BNP 181.5. Patient was given Lasix IV. He is supposed to be on Eliquis and has not taken this for the past 2 months. He was started on a heparin drip per hospitalist request. He was given Zosyn and Vanc for his bilateral lower extremity cellulitis. Discussed with the hospitalist for admission. Disposition: Admission Impression: Dyspnea, CHF, bilateral lower extremity cellulitis This note was generated with [employer] dictation software. It may contain incorrect words, spelling, and punctuation that were not noted in review of the chart prior to signing ED Disposition - Plan for ED Patient: Chief Complaint: Shortness of Breath What to do if you have Problems For any increased pain, shortness of breath, bleeding, nausea or vomiting, chest pain, or any unexpected problems, contact your Primary Care Provider. Call [email or web address] ([phone]) or report to the closest Emergency Room. Call 911 if necessary. 08/20/17 1715 <Electronically signed by Shreya Morgan MD> Date Shreya Morgan MD Cosigner Signature (If Indicated): Date CC: Jack Verdugo MD HISTORY AND PHYSICAL Observed: 08/20/2017 Status: F Source: [place] EXAM 4:08 PM [facility] REPOSITORY [facility] Medical Records Department [address] [place] [address] History and Physical 08/20/17 1559 MR#: [id number] Acct: [id number] Name: EVERETT IYER Rep #: [id number] : 1945 72 From: Mica Jones PCP: Jack Verdugo MD Status: REG ER Y Location: ED Problem List (1) CHF exacerbation Status: Acute Qualifiers: Heart failure type: unspecified Qualified Code(s): I50.9 - Heart failure, unspecified (2) Anemia Status: Chronic Qualifiers: Anemia type: iron deficiency (3) Arthritis Status: Chronic (4) Asthma Status: Chronic Qualifiers: Asthma severity: unspecified severity Asthma persistence: unspecified Asthma complication type: unspecified Qualified Code(s): J45.909 - Unspecified asthma, uncomplicated (5) BPH (benign prostatic hypertrophy) Status: Chronic Qualifiers: Lower urinary tract symptom presence: unspecified whether lower urinary tract symptoms present (6) Benign essential hypertension Status: Chronic (7) Benign prostatic hypertrophy without urinary obstruction Status: Chronic (8) CAD (coronary artery disease) Status: Chronic Qualifiers: Coronary Disease-Associated Artery/Lesion type: unspecified vessel or lesion type [place] vs. transplanted heart: unspecified whether [place] or transplanted heart Associated angina: angina presence unspecified Qualified Code(s): I25.10 - Atherosclerotic heart disease of [place] coronary artery without angina pectoris (9) CKD (chronic kidney disease), stage II Status: Chronic (10) COPD (chronic obstructive pulmonary disease) Status: Chronic Qualifiers: COPD type: unspecified COPD (11) Chronic respiratory failure with hypoxia Status: Chronic (12) Diabetes mellitus with neuropathy Status: Chronic Qualifiers: Diabetes mellitus type: type 2 Diabetes mellitus assisted insulin use: with assisted use Qualified Code(s): E11.40 - Type 2 diabetes mellitus with diabetic neuropathy, unspecified; Z79.4 - detention (current) use of insulin (13) Dyspnea Status: Acute (14) Edema of both legs Status: Acute (15) GERD (gastroesophageal reflux disease) Status: Chronic Qualifiers: Esophagitis presence: esophagitis presence not specified Qualified Code(s): K21.9 - Gastro-esophageal reflux disease without esophagitis (16) H/O aortic valve replacement Status: Chronic (17) HTN (hypertension) Status: Chronic Qualifiers: Hypertension type: essential hypertension (18) Hypercholesteremia Status: Chronic (19) Lymphedema of leg Status: Chronic Qualifiers: Laterality: bilateral (20) Morbid obesity Status: Chronic (21) MIKO (obstructive sleep apnea) Status: Chronic (22) Peripheral neuropathy Status: Chronic (23) Pulmonary embolism on right Status: Chronic Comment: Continue oral anticoagulation with Eliquis for a minimum of 6 months. Patient was educated on the signs and symptoms of bleeding as such as hemoptysis, hematemesis, hematochezia or melena stools. Patient has been advised to watch for these symptoms contact the office if they present. Follow-up with Dr. Clay in approximately 8 weeks as previously scheduled. (24) Pulmonary hypertension Status: Chronic (25) S/P AAA repair Status: Chronic (26) Type II diabetes mellitus Status: Chronic Qualifiers: Diabetes mellitus assisted insulin use: with assisted use Diabetes mellitus complication status: with kidney complications Diabetes mellitus complication detail: with chronic kidney disease Chronic kidney disease stage: stage 2 (mild) Qualified Code(s): E11.22 - Type 2 diabetes mellitus with diabetic chronic kidney disease; N18.2 - Chronic kidney disease, stage 2 (mild); Z79.4 - detention (current) use of insulin (27) Tobacco abuse Status: Resolved (28) Open wound, lower leg Status: Acute Qualifiers: Encounter type: initial encounter Laterality: unspecified laterality Qualified Code(s): S81.809A - Unspecified open wound, unspecified lower leg, initial encounter History of Present Illness Date of Admission: 08/20/17 Chief Complaint: Dyspnea, Increasing LE Edema, Orthopnea. The patient is a 72 y/o M w/ PMHx: AOCD, BPH, HTN, Diabetes mellitus type II w/ neuropathy, Tobacco use, CHF Unclear type, CKD stage II, COPD, History of AVR, History of AAA s/p repair, GERD, Morbid Obesity PVD, Hx Ileus, Hx PE on Eliquis prior who presents to the [facility] ED on 08/20/17 with history of progressively worsening dyspnea, worse with exertion, orthopnea, worsening BL LE edema with onset blistering and open serous drainage secondary to severity of edema without improvement with self imposed increased O2 level and noted concurrent O2 and BIPAP placement q HS with recent treatment per his Pulmonary Team w/ increased oral lasix without marked improvement with referral to Cardiology for CHF evaluation but given worsened status referred to the ED for evaluation per Pulmonary at his appointment on day of ED presentation. Per review with patient he noted only completion of initial Rx Eliquis and has not been on it since and also notes current BL LE wounds dressed only QOD per family with worsening wounds, drainage as edema LE worsened. Past Medical History Past Medical History (Chronic Problems): Chronic Problems (Last Reviewed 08/20/17 @ 13:52 by Elvira Schmidt) Chronic respiratory failure with hypoxia (Chronic) Wheezing (Chronic) Heart failure (Chronic) MIKO (obstructive sleep apnea) (Chronic) HTN (hypertension) (Chronic) Anemia (Chronic) BPH (benign prostatic hypertrophy) (Chronic) Tinea unguium (Chronic) Diabetes mellitus with neuropathy (Chronic) Leg swelling (Chronic) Lymphedema of leg (Chronic) Multiple excoriations (Chronic) Asthma (Chronic) COPD (chronic obstructive pulmonary disease) (Chronic) Arthritis (Chronic) Immobility (Chronic) 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 Patient was educated on the signs and symptoms of bleeding as such as hemoptysis, hematemesis, hematochezia or melena stools. Patient has been advised to watch for these symptoms contact the office if they present. Follow-up with Dr. Clay in approximately 8 weeks as previously scheduled. Adynamic ileus (Chronic) Ventral hernia (Chronic) Hypoglycemia (Chronic) Peripheral neuropathy (Chronic) Chronic anemia (Chronic) Benign essential hypertension (Chronic) Benign prostatic hypertrophy without urinary obstruction (Chronic) CKD (chronic kidney disease), stage II (Chronic) CHF (congestive heart failure) (Chronic) CAD (coronary artery disease) (Chronic) Type II diabetes mellitus (Chronic) GERD (gastroesophageal reflux disease) (Chronic) Hypercholesteremia (Chronic) Morbid obesity (Chronic) Pulmonary hypertension (Chronic) H/O aortic valve replacement (Chronic) S/P AAA repair (Chronic) Venous insufficiency (Chronic) Tinea unguium (Chronic) Morbid obesity (Chronic) Allergies naphazoline HCl [From Naphcon] Allergy (Severe, Verified 08/20/17 15:18) affected his breathing AFFECTED HIS BREATHING amlodipine besylate [From Norvasc] Allergy (Verified 08/20/17 15:18) Other dextromethorphan Allergy (Verified 08/20/17 15:18) Other levofloxacin [From Levaquin] Adverse Reaction (Mild, Verified 08/20/17 15:18) made me hyperactive made me hyperactive Home Medications: Ambulatory Orders Medication Instructions Recorded Allopurinol [Zyloprim] 300 mg PO DAILY 03/30/17 Atorvastatin Calcium [Lipitor] 40 mg PO QHS 03/30/17 Clonidine Patch [Catapres-Tts3] 1 patch TOPICAL FR 03/30/17 Surgical History: - - He has a bioprosthetic aortic valve replacement, abdominal aortic aneurysm repair '05, recent surgery to repair a large ventral hernia. Psychiatric History: Anxiety, Depression Lives: With Family Smoking Status: Former smoker Tobacco Use: Non-smoker Alcohol: None - *Family History Maternal History Items: Hypertension, - - Patient's father at the age of 94 from old age. Patient's mother at age of 87 with a history of hyperlipidemia and hypertension. Paternal History Items: Hypertension Review of Systems Constitutional: Reports: Malaise, Weakness, Fatigue. Denies: Chills, Fever, Weight Change HEENT: Denies: Head Aches, Sinus Congestion, Sinus Drainage Cardiovascular: Reports: Edema, Heaviness, Orthopnea. Denies: Chest Pain, Palpitations Respiratory: Reports: Cough, Shortness of Breath, Shortness of breath at rest, Shortness of breath upon exertion, Sputum production, Wheezing Gastrointestinal: Denies: Abdominal Pain, Nausea, Vomiting Genitourinary: Denies: Dysuria Musculoskeletal: Reports: Back Pain, Joint Pain. Denies: Joint Tenderness Skin: Reports: Skin Changes, Wounds. Denies: Rash Neurological: Denies: Numbness, Tingling, Focal weakness Psychiatric: Denies: Anxiety, Depression, Homicidal Ideations, Suicidal Ideations Hematologic/ Lymphatic: Reports: Anemia. Denies: Easy Bruising, Easy Bleeding VTE Information - Inpt Only VTE Present on Admission: No VTE Mechan Device Prophylaxis: SCD's VTE Pharm Prophylaxis ordered?: Yes Patient Problems: Active and Suspected Problems (Last Reviewed 08/20/17 @ 13:52 by Elvira Schmidt) Open wound, lower leg (Acute) Subjective: Seated upright in the ED bed, fatigued appearance. Objective: Physical Examination: General: awake, alert, oriented x 3 and cooperative, seated upright in the ED bed, NAD, fatigued appearance. Skin: normal color, turgor, no icterus, cyanosis except BL LE chronic venous stasis skin changes, BL LE lateral stasis wounds with yellow slough and discharge, mildly foul smelling, chronic BL LE lymphedema, worsened w/ edema, pitting, serous drainage, blistering diffusely BL LE additionally. HEENT: AT/NC, EOMI, PERRLA, mildly dry MM, no carotid bruits, difficult to assess JVD secondary to habitus, thickened neck. Lungs: Diffusely diminished BS, > BL bases, poor effort, no current wheezing, BL rales present, no rhonchi. Heart: Regular rate and rhythm; no gallop, rub audible, s/p AVR. Abdomen: soft, morbidly obese, ventral hernia present, NTTP, ND, normal BS, no HSM; however, habitus makes examination difficult. Extremities: no cyanosis, clubbing, see skin. Neurological: patient awake, alert, oriented x 3; cognitive function intact; pupils equally reactive to light and accomodation; cranial nerves II-XII grossly normal, moving all 4 extremities but limited secondary to chronic knee pain and acute presentation, strength severely globally decreased. Psychiatric: affect appears fatigued, flat, no acute evidence of depressive or anxiety feelings. - Physical Exam Vital Signs Temp Pulse Resp BP Pulse Ox 98.5 F 85 22 H 155/73 H 96 08/20/17 14:49 08/20/17 15:40 08/20/17 15:40 08/20/17 14:49 08/20/17 15:40 Oxygen Flow Rate (L/min) 6.5 Oxygen Delivery Method Nasal Cannula Weight: 400 lb 2.224 oz Body Mass Index (BMI) 60.8 Finger Stick Blood Glucose 116 Laboratory Tests Past 24 Hrs WBC 6.0 RBC 3.63 L Assessment/Plan Active and Suspected Problems (Last Reviewed 08/20/17 @ 13:52 by Elvira Schmidt) Open wound, lower leg (Acute) The patient is a 72 y/o M w/ PMHx: AOCD, BPH, HTN, Diabetes mellitus type II w/ neuropathy, Tobacco use, CHF Unclear type, CKD stage II, COPD, History of AVR, History of AAA s/p repair, GERD, Morbid Obesity PVD, Hx Ileus, Hx PE on Eliquis prior but stopped taking after initial Rx who presents to the [facility] ED on 08/20/17 with history of progressively worsening dyspnea, worse with exertion, orthopnea, worsening BL LE edema with onset blistering and open serous drainage secondary to severity of edema without improvement with self imposed increased O2 level and noted concurrent O2 and BIPAP placement q HS with recent treatment per his Pulmonary Team w/ increased oral lasix without marked improvement with referral to Cardiology for CHF evaluation but given worsened status referred to the ED for evaluation per Pulmonary at his appointment on day of ED presentation. (1) Dyspnea, Suspect Multifactorial secondary to Underlying Pulmonary Disease, Morbid Obesity and Suspected Acute on Chronic CHF Exacerbation, Unclear Type and Possible Acute on Chronic PE: Patient administered IV lasix in the ED, will admit to PCU, maintain on cardiac telemetry, obtain cardiac enzyme series, obtain serial EKGs, initiate and continue IV lasix diuresis, monitor I/Os, maintain on intake restriction, continue medical therapy w/ asa, statin, BB, ARB, spironolactone. Will obtain TSH and magnesium level. Most recent ECHO noted 12/22/2013 with noted EF 65%, stage I diastolic dysfunction, moderately dilated RV, bioprosthetic aortic valve. Cardiology consulted, pending. PRN morphine to decrease afterload, continue oxygen supplementation, if necessary will position w/ upright position with legs off bed to decrease preload. Also, ? possibility of failure to take his Eliquis and suspect no follow-up refill following initial regimen from initial diagonsis per review of records thus discussed with ED and will additionally obtain CTPA. Will place on heparin drip upon admission and transition to oral regimen once CM assisted w/ assuring affordable regimen to avoid barriers. (2) BL LE Venous Stasis Wounds, Infected Appearance complicated by Underlying Diabetes Mellitus type II, Morbid Obesity, Chronic BL LE Lymphedema: Will maintain on IV Vanc and Zosyn given severity of appearance and underlying co-morbidities, obtain Wound RN consultation, dry dressing changes given notable serous drainage w/ LE edema, plan repeat CBC in AM, continue affected extremity elevation above heart when seated and in bed, monitor erythema outline with VS checks. Snug MIKE wraps. (3) Hyperlipidemia: Continue home statin regimen. (4) Hypertension: Continue home clonidine patch, metoprolol, losartan, IV lasix as noted, PRN hydralazine. (5) Chronic COPD/Asthma w/ Chronic Hypoxic Respiratory Failure: Maintain on oxygen with wean to home oxygen supplementation as able given #1, ATC aerosols, PRN albuterol, HOB, IS. (6) History of AVR, AAA s/p repair: Continue home regimen plavix, statin, BP regimen. (7) BPH: Continue home proscar. (8) Fe Deficiency Anemia: Admission Hgb 9.8, baseline 10-11 range, continue Fe supplementation, repeat CBC in AM. (9) History of PE: Was previously on eliquis, some concern about compliance and per review of records patient with no office (Pulmonary) listing of Eliquis, last noted on discharge 03/2017, reviewed with ED physician and will additionally obtain CTPA given high risk and initiate therapy again. Will need CM consultation to assure medication barriers reviewed. (10) Diabetes mellitus type II: Hold oral home regimen, continue home insulin regimen, ADA diet, accu checks w/ ISS. (11) Tobacco Abuse: Encouraged cessation, inpatient consultation per RT, NR if desired. (12) CKD stage II: Admission BUN/Cr 13/0.97, baseline Cr 0.9- 1.2, trend BMP. (13) GERD: PPI. (14) MIKO: Noted BIPAP from office,18/ with mask and headed humidity. (15) Morbid Obesity: Weight loss and lifestyle changes encouraged, nutrition consulted. (16) DVT Prophylaxis: SNUG MIKE wraps, SCDs, Eliquis. (17) CODE status: Discussed CODE status at length including difference between FULL code, DNR-CCA and DNR-CC status. Following discussions about the differences in these status, requested FULL CODE status. Discussed prognosis with full intervention given co-morbidities which are marked and severe and patient notes decision to continue with FULL CODE status. Advanced Care Planning Face to Face Time: 16 minutes. Code Visit Inpatient E AND M: 37312 Init Hosp L3 Procedures: 11130 Advncd Care Plan 30 Min 08/20/17 1608 <Electronically signed by Mica Jones > Date Mica Jones Cosigner Signature: Date (if applicable) CC: Mica Jones; Jack Verdugo MD Signed CTA CHEST W/WO Observed: 08/20/2017 Status: F Source: [facility] CONTRAST 3:41 PM [facility] REPOSITORY [facility] Imaging Services [address] [place] [id number] CTA Chest W/WO Contrast MR#: [id number] Acct: [id number] Name: EVERETT IYER Dianne Rep #: [id number] : 1945 M 72 From: Antoinette Blank MD PCP: Jack Verdugo MD Status: ADM IN Study: CTA Chest W/WO Contrast Date of Exam: 08/20/17 Exam# [id number] Ordering Dr: Shreya Morgan MD STUDY: CTA CHEST REASON FOR EXAM: Male, 72 years old. Shortness of breath RADIATION DOSAGE (If Supplied By Facility): CTDIvol = ( 45.66 ) mGy, DLP = ( 1162.53 ) mGycm TECHNIQUE: The examination was performed with the intravenous administration of 100 ml of Isovue 370 contrast material. Post-processing of the angiographic images was performed, with multiplanar reformation and 3D reconstruction. Individualized dose optimization techniques were used for this CT. COMPARISON: Chest radiograph from the same day; chest CTA dated March 30, 2017 FINDINGS: Normal enhancement of the main pulmonary artery and right and left pulmonary arteries without filling defects. There is limited enhancement of the bilateral peripheral pulmonary arteries. There are moderate vascular calcifications in the thoracic aorta. There is no demonstrated aortic dissection. There is mild enlargement of the heart. There are calcifications of the coronary arteries. There are small lymph nodes scattered in the mediastinum. The hilar regions are unremarkable. The airways are unremarkable. There is dense opacity in the posterior segment of the right lower lobe. There are minimal increased markings in the posterior segment of the left lower lobe. There is moderate fluid in the right pleural margin. There is minimal fluid in the left pleural margin. Central vessels are prominent. There is a defect in the midline epigastric region measuring 8 cm. There is herniation of bowel through the defect. There are marked degenerative changes in the visualized spine. Sternotomy wires are present. There are degenerative changes in both shoulders. There are no significant abnormalities in the visualized upper abdomen. CT/CTA Chest W/WO Contrast IMPRESSION: There is no evidence of pulmonary embolus in the main pulmonary artery or right and left pulmonary arteries. There may be minimal residual chronic clot within a few branches of the right upper lobe. The remaining peripheral branches are suboptimally evaluated due to poor contrast bolus and breathing motion artifact. There is mild enlargement of the heart with mild edema. There is a moderate right pleural effusion and a small left pleural effusion. There is dense atelectasis in the right lower lobe and minimal atelectasis in the left lower lobe. There is herniation of stomach or colon in the midline epigastric region with a defect measuring 8 cm along the anterior upper abdominal wall. 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 Shortness of breath TECHNIQUE: A single frontal view of the chest was obtained. COMPARISON: August 05, 2017 FINDINGS: The lungs are underaerated. There are increased markings throughout both lungs, most pronounced in the bases. There is blunting of the right costophrenic angle. There is moderate enlargement of the cardiac silhouette. Sternotomy wires are present. The mediastinum and hilar regions are unremarkable. The central vessels are increased. There is atherosclerotic calcification of the thoracic aorta. There are diffuse degenerative changes of the visualized spine. There are degenerative changes in both shoulders. There are surgical clips in the right axilla. There is no demonstrated abnormality of the visualized upper abdomen. RAD/Chest 1 View (Portable) IMPRESSION: There is moderate enlargement of the cardiac silhouette with diffuse edema and a small right effusion. There is bibasilar atelectasis. 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: Signed CBC W/DIFF, AUTOMATED Collected: 08/20/2017 Status: F Source: [place] 3:05 PM [facility] REPOSITORY TYPE CODE TESTS RESULT OUT OF RANGE REFERENCE UNITS LAB L100.1000 4.4-11.0 K/mm3 Normal WBC 6.0 LAB L100.1200 4.6-6.2 M/mm3 Low RBC 3.63 LAB L100.1300 13.0-16.5 g/dl Low HGB 9.8 LAB L100.1400 40-54 % Low HCT 33.2 LAB L100.1500 80-94 fL Normal MCV 91.5 LAB L100.1600 27.0-32.0 pg Normal MCH 27.0 LAB L100.1700 32-36 g/gl Low MCHC 29.5 LAB L100.1810 11.6-14.6 % Normal RDW CV 14.1 LAB L100.1820 35.1-43.9 fl High RDW SD 45.9 LAB L100.1900 150-450 K/mm3 Normal PLT 221 LAB L100.2000 6.2-12.0 fl Normal MPV 8.7 LAB L100.2100 47-70 % High NEUT% 77.5 LAB L100.2200 19-41 % Low LY% 9.2 LAB L100.2300 0-10 % Normal MONO% 8.8 LAB L100.2400 0-5 % Normal EO% 2.7 LAB L100.2500 0-1 % Normal BASO% 0.5 LAB L100.2550 0.0-0.9 % High IM GRAN % 1.300 Result Comment: IG% - Immature Granulocytes (promyelocytes, myelocytes and metamyelocytes) > 1% indicates that a LEFT SHIFT is Present. LAB L100.2620 2.0-7.7 X10 3/uL Normal Absolute Neut 4.6 LAB L100.2720 0.83-4.51 X10 3/ul Low Absolute Lymph 0.55 LAB L100.4500 Normal SMEAR COMMENT SCANNED Result Comment: LYMPHOPENIA NOTED Performed By: #### L100.0100 #### [facility] [address] [place], [address] BASIC METABOLIC Collected: 08/20/2017 Status: F Source: [place] PROFILE (BMP) 3:05 PM [facility] REPOSITORY Order Comment: 'TROP' Serial specimen #1, #2, #3, or #4: 1 TYPE CODE TESTS RESULT OUT OF RANGE REFERENCE UNITS LAB L501.0100 74-106 mg/dL High GLU 213 Result Comment: Glucose result greater than or equal to 200 mg/dL suggests DIABETES MELLITUS per A.D.A. criteria. Please note revised GLUCOSE reference range effective 2017. LAB L501.1000 7-18 mg/dL Normal BUN 13 LAB L501.1100 0.70-1.30 mg/dL Normal CREAT,SERUM 0.97 Result Comment: The validity of the calculated GFR AND GFRAA in patients over 70 years has not been determined. Clinical correlation is essential. LAB L501.1110 >60 mL/min Normal EST GFR 80 Result Comment: Non- GFR Calc LAB L501.1115 >60 mL/min Normal EST GFR - AA 97 Result Comment: GFR Calc LAB L501.1255 ml/min Normal Estimated CRCL 64.64 LAB L501.1300 10-20 RATIO Normal BUN/CRE 13.4 LAB L501.2200 8.5-10 mg/dL Normal .1 CA 8.6 LAB L501.5300 136-14 mmol/L Normal 5 NA 139 LAB L501.5600 3.5-5. mmol/L Normal 1 K 4.1 LAB L501.5900 98-107 mmol/L Normal CL 99 LAB L501.6100 21.0-3 mmol/L High 2.0 CO2 37.0 LAB L501.6200 5-15 Low GAP 3 Performed By: #### L500.2500, L501.4010 #### [facility] [address] [place], [place], [id number] TROPONIN-I Collected: 08/20/2017 Status: F Source: [place] 3:05 PM [facility] REPOSITORY Order Comment: 'TROP' Serial specimen #1, #2, #3, or #4: 1 TYPE CODE TESTS RESULT OUT OF RANGE REFERENCE UNITS LAB L501.4010 <0.06 ng/mL Normal < 0.02 TROPONIN-I Result Comment: TROPONIN-I EXPECTED VALUES <0.05 NEGATIVE 0.06 - 0.59 AT RISK OF [place] > OR = 0.60 SUGGEST [place] Performed By: #### L500.2500, L501.4010 #### [facility] [address] [place], [place], [id number] BNP,B-TYPE NATRIURETIC Collected: 08/20/2017 Status: F Source: [place] 3:05 PM [facility] REPOSITORY TYPE CODE TESTS RESULT OUT OF RANGE REFERENCE UNITS LAB L503.6620 0-100 pg/mL High B-TYPE 181.5 ROYA PEP Performed By: #### L503.6620 #### [facility] [address] [place], [place], [id number] MAGNESIUM Collected: 08/20/2017 Status: F Source: [place] 3:05 PM [facility] REPOSITORY TYPE CODE TESTS RESULT OUT OF RANGE REFERENCE UNITS LAB L501.5200 1.6-2.6 mg/dL Normal MG 1.8 Result Comment: Please note revised Magnesium reference range effective 2017. Performed By: #### L501.5200, L501.9520 #### [facility] [address] [place], [address] THYROID STIM HORMONE Collected: 08/20/2017 Status: F Source: [facility] (TSH) 3:05 PM [facility] REPOSITORY TYPE CODE TESTS RESULT OUT OF RANGE REFERENCE UNITS LAB L501.9520 0.358-3.74 uIU/mL Normal TSH 2.11 Performed By: #### L501.5200, L501.9520 #### [facility] [address], [address] PROTHROMBIN TIME W/INR Collected: 08/20/2017 Status: F Source: [facility] 3:01 PM [facility] REPOSITORY TYPE CODE TESTS RESULT OUT OF RANGE REFERENCE UNITS LAB L300.4150 11.7-14.9 SECONDS Normal PROTIME 13.7 LAB L300.4200 Normal INR 1.1 Performed By: #### L300.3900, L300.4310 #### [facility] [address] [place], [address] PARTIAL THROMBOPLAST Collected: 08/20/2017 Status: F Source: [place] TIME 3:01 PM [facility] REPOSITORY TYPE CODE TESTS RESULT OUT OF RANGE REFERENCE UNITS LAB L300.4310 24.1-36.2 Seconds Normal PTT 34.9 Performed By: #### L300.3900, L300.4310 #### [facility] [address] [place], [address] PULMONARY VISIT REPORT Observed: 08/06/2017 Status: F Source: [place] 4:28 PM [facility] REPOSITORY [facility] [address] [place] [address] OFFICE VISIT Date of Service: 08/05/17 MR#: [id number] Acct: [id number] Name: EVERETT IYER Rep #: [id number] : 1945 Provider: Mackenzie Wallace Age/Sex: 72/M Location: [facility] [place] Status: Signed Assessment AND Plan 1. Chronic respiratory failure with hypoxia J96.11 Plan Deteriorated. Continue to utilize supplemental oxygen to maintain saturations 89-92%. Sending for a BNP, BMP and a chest x-ray today. Plan to increase his Lasix if his kidney function allows. Follow-up in 2 weeks to determine his response to therapy. 2. MIKO (obstructive sleep apnea) G47.33 Status Chronic Plan He is using and benefiting from CPAP therapy no indication for titration study at this time. 3. Chronic obstructive pulmonary disease, unspecified COPD type J44.9 Status Chronic Plan Continue current maintenance medications. Instructed the patient that Advair should be twice daily. Continue Spiriva 2 puffs daily. No repeat testing at this time. Follow-up in 2 weeks to determine his response to therapy. 4. Pulmonary hypertension I27.20 Status Chronic Plan Deteriorated. Plan to increase diuresis if kidneys will allow. Kidney function reviewed, will place him on 80 mg of Lasix twice daily for the next 3 days. Then he will resume his 40 mg twice daily maintenance dosing. Follow-up in 2 weeks to see how he has responded. Plan Detail Other Orders Orders: Other Medications Changed: Follow Up 2 Weeks ([facility]) HPI 1 W FU: Chief Complaint: Shortness of breath HPI Comments Details: Patient presents the office today for a 1 week follow-up after being treated with prednisone and antibiotics. He reports that he finished the prednisone yesterday and the antibiotic last night. He was on Keflex. He continues to have a cough that is productive of clear to yellow sputum. He notices an increase in wheezing. His shortness of breath is significantly worse. He is using his Advair once daily. He was using Ventolin but ran out, is requesting a L. He is using his Spiriva 2 puffs daily. He reports that his breathing is getting worse. He reports an increase in weight and and lower extremity edema. He is unable to sleep lying down, sleeps sitting up in a chair. He is currently in a wheelchair, wearing nasal cannula oxygen. See complete review of systems. Intake Vital Signs08/05/17 Height 5 ft 8 in 08/05/17 Weight: 391 lb Intake Visit Reasons: 1 W FU Allergies naphazoline HCl [From Naphcon] Allergy (Severe, Verified 07/29/17 14:22) affected his breathing amlodipine besylate [From Norvasc] Allergy (Verified 07/29/17 14:22) Other dextromethorphan Allergy (Verified 07/29/17 14:22) Other levofloxacin [From Levaquin] Adverse Reaction (Mild, Verified 07/29/17 14:22) made me hyperactive Medications Allopurinol [Zyloprim] 300 mg PO DAILY 03/30/17 [History Confirmed 07/29/17] Atorvastatin Calcium [Lipitor] 40 mg PO QHS 03/30/17 [History Confirmed 07/29/17] Clonidine Patch [Catapres-Tts3] 1 patch TOPICAL FR 03/30/17 [History Confirmed 07/29/17] Clopidogrel Bisulfate [Plavix] 1 tab PO DAILY 03/30/17 [History Confirmed 07/29/17] Docusate Sodium [Colace] 100 mg PO DAILY 03/30/17 [History Confirmed 07/29/17] Ferrous Sulfate 325 mg PO DAILY 03/30/17 [History Confirmed 07/29/17] Finasteride [Proscar] 5 mg PO DAILY 03/30/17 [History Confirmed 07/29/17] Glimepiride [Amaryl] 2 tab PO BREAKFAST 03/30/17 [History Confirmed 07/29/17] Hydroxyzine HCl 25 mg PO TID PRN 03/30/17 [History Confirmed 07/29/17] Insulin Glargine [Lantus SoloStar Pen] 30 units PO BID 03/30/17 [History Confirmed 07/29/17] Lansoprazole 15 mg PO DAILY 03/30/17 [History Confirmed 07/29/17] Losartan Potassium 100 mg PO DAILY 03/30/17 [History Confirmed 07/29/17] Magnesium Oxide [Mag-Ox 400] 800 mg PO BID 03/30/17 [History Confirmed 07/29/17] Metformin HCl [Glucophage] 500 mg PO TID 03/30/17 [History Confirmed 07/29/17] Metoprolol Tartrate [Lopressor (beta maryam)] 50 mg PO BID 03/30/17 [History Confirmed 07/29/17] Multivitamins,Therapeutic [Multivitamin] 1 tab PO DAILY 03/30/17 [History Confirmed 07/29/17] Sertraline HCl [Zoloft] 100 mg PO DAILY 03/30/17 [History Confirmed 07/29/17] Spironolactone 25 mg PO BID 03/30/17 [History Confirmed 07/29/17] Terazosin HCl [Hytrin] 10 mg PO QHS 03/30/17 [History Confirmed 07/29/17] Furosemide [Lasix] 40 mg PO BID 30 Days #120 tab 06/05/17 [Rx Confirmed 07/29/17] Prednisone [Deltasone] 40 mg PO DAILY 5 Days #10 tab 06/05/17 [Rx Confirmed 07/29/17] fluticasone 500 mcg-salmeterol 50 mcg/dose blistr powdr for inhalation 1 inh INHALATION Q12H #1 device 07/29/17 [Rx Confirmed 07/29/17] tiotropium bromide 2.5 mcg/actuation mist for inhalation 2 puff INHALATION Q24H #1 device 07/29/17 [Rx Confirmed 07/29/17] albuterol sulfate HFA 90 mcg/actuation aerosol inhaler 2 puff PO Q6H PRN PRN #18 g 08/05/17 [Rx Confirmed 08/05/17] furosemide 80 mg tablet 80 mg PO BID #6 tab 08/06/17 [Rx] PFSH Medical History Wheezing (Chronic) Dyspnea (Chronic) Heart failure (Chronic) MIKO (obstructive sleep apnea) (Chronic) HTN (hypertension) (Chronic) Tobacco abuse (Resolved) Anemia (Chronic) BPH (benign prostatic hypertrophy) (Chronic) Tinea unguium (Chronic) Diabetes mellitus with neuropathy (Chronic) Leg swelling (Chronic) Edema of both legs (Chronic) Lymphedema of leg (Chronic) Multiple excoriations (Chronic) Asthma (Chronic) COPD (chronic obstructive pulmonary disease) (Chronic) Arthritis (Chronic) Immobility (Chronic) Pulmonary embolism on right (Chronic) CAP (community acquired pneumonia) (Resolved) Adynamic ileus (Chronic) Ventral hernia (Chronic) Nausea and vomiting (Inactive) Hypoglycemia (Chronic) Peripheral neuropathy (Chronic) Chronic anemia (Chronic) Benign essential hypertension (Chronic) Benign prostatic hypertrophy without urinary obstruction (Chronic) CKD (chronic kidney disease), stage II (Chronic) CHF (congestive heart failure) (Chronic) CAD (coronary artery disease) (Chronic) Type II diabetes mellitus (Chronic) GERD (gastroesophageal reflux disease) (Chronic) Hypercholesteremia (Chronic) Morbid obesity (Chronic) Pulmonary hypertension (Chronic) Venous insufficiency (Chronic) Tinea unguium (Chronic) Morbid obesity (Chronic) Surgical History H/O aortic valve replacement (Chronic) S/P AAA repair (Chronic) Family History Brother TBI (traumatic brain injury) Sister Ulcerative colitis Social History adopted: No household members: spouse housing: house current occupational status: retired current occupational exposures/hazards: No pets and animals: No history of recent travel: No Smoking Status: Former smoker second hand exposure: Yes alcohol intake: never substance use type: does not use Review of Systems Const CONSTITUTIONAL: Negative anorexia, body ache, chills, daytime sleepiness, fever(s), night sweats, oral thrush, stops breathing during sleep, weight loss, sleeping in chair, fatigue, weight loss, weight gain, frequent colds, seasonal allergies, other, headache(s) or orthopnea EETM Ear Nose Throat Mouth: Positive hearing normal; negative hard of hearing, hoarseness, dry mouth in morning, change in vision, itchy eyes, eye pain, swallowing Difficulty, ear pain, nose bleed, headache(s), mouth pain, nasal congestion, nasal discharge, post nasal drip, sinus pain, sinus pressure, sore throat or other Cardio Cardiovascular: Negative chest pain, chest pain at rest, chest pain with activity, irregular heart rhythm, edema, shortness of breath when lying down, palpitations, murmur or other Resp Respiratory: Positive as per HPI, shortness of breath shortness of breath: Positive while talking and with activity, wheezing and cough cough: Positive productive color: Positive white and yellow and non-productive; negative pain with cough, chest congestion, chest tightness, pain on inspiration, inhalers, increase use of rescue inhalers, snoring, apnea or other Gastro Gastrointestional: Negative bloody stools, change in appetite, difficulty swallowing, reflux, hematemesis, melena stool, loose stool, constipation or other Genitourinary: Negative blood in urine, nocturia, pain with urination or other Musc Musculoskeletal: Negative body pain, back pain, neck pain or other Skin/Breast Skin/Breast: Negative dry skin, itching, rash, unusual bruising, breast lump or other Neuro Neurological: Negative restless legs, confusion, weakness or other Psych Psychocological: Negative abnormal sleep pattern, anxiety, thoughts of hurting self/others, hopelessness or other Lymph Lymphatic: Negative easy bleeding, easy bruising, swollen lymph nodes or other Exam Const Constitutional: Positive conversant, cooperative, in no acute respiratory distress, well developed, well nourished, good hygiene, obese, wearing supplemental oxygen, frail appearing, dyspenic and appears older than stated age Head Head: Positive normocephalic and atraumatic; negative cyanosis of lips/distal nose Eyes Eye: Positive clear conjunctiva and nystagmus; negative scleral abnormality Ears Ear: Positive hearing normal and external ears normal; negative hard of hearing Nose Nose: Positive external nose normal and no nasal discharge; negative epistaxis Mouth Mouth: Positive oral mucosae normal, no lesions, poor dentition and crowded posterior oropharynx; negative post nasal drip, malodorous breath or oral thrush present Mallampati Score: III: Mallampati Score Neck Neck: Positive normal visual inspection, full ROM, trachea midline, thick neck and male neck greater than 43 cm (17 in); negative lymphadenopathy, JVD or tender Chest Wall Chest: Positive normal inspection of the chest and symmetric chest movement; negative increased A/P diameter Resp lung sounds: Positive clear to auscultation, good air exchange, normal expiratory time and normal respiratory effort; negative diminished, wheezes, rhonchi, rales, dullness to percussion or wheeze present on forced exhalation Cardio Cardiac: Positive regular rate, regular rhythm, S1 normal and S2 normal; negative murmur GI GI: Positive normal to inspection, normal bowel sounds and obese; negative distended or ascites Genitourinary: Positive deferred Musc Musculoskeletal: Positive ROM normal and in a wheelchair; negative kyphosis or scoliosis Skin Pulmonary Skin Exam: Positive intact; negative rash, lesion, ulcers, erythema, scaly or dermal atrophy Pulses Pulse: Yes pulses normal x4 extremities Extremities Extremities: Yes capillary refill normal, No clubbing, No cyanosis, Yes edema Location: lower extremity location: Bilateral pitting +3, No stasis dermatitis Neuro Neurologic: Yes conversant, Yes no focal neuro deficits, Yes cooperative, Yes normal cognition, Yes normal coordination, Yes normal concentration, Yes understands questions Lymph Lymphatic: No lymphadenopathy, No tenderness, No cervical adenopathy, No axillary adenopathy Psych Appearance: Positive grossly normal, eye contact and well kempt Mental Status: Positive mental status grossly normal Mood: Positive congruent mood Affect: Positive normal affect Coding Level of Care Code Off vis,est,level 3 Diagnoses Chronic respiratory failure with hypoxia J96.11 MIKO (obstructive sleep apnea) G47.33 Chronic obstructive pulmonary disease, unspecified COPD type J44.9 COPD type: unspecified COPD Pulmonary hypertension I27.20 08/06/17 1628 <Electronically signed by Mackenzie CRAWFORD> Date Mackenzie CRAWFORD Cosigner Signature: Date (if applicable) CC: Jack Verdugo MD CHEST PA AND LATERAL Observed: 08/05/2017 Status: F Source: [place] 4:20 PM [facility] REPOSITORY [facility] [address] [place] [address] Chest PA and Lateral MR#: [id number] Acct: [id number] Name: EVERETT IYER Rep #: [id number] : 1945 M 72 From: Alan Corrigan DO PCP: Jack Verudgo MD Status: REG CLI Study: Chest PA and Lateral Date of Exam: 08/05/17 Exam# [id number] Ordering Dr: Mackenzie Wallace STUDY: X-RAY CHEST REASON FOR EXAM: Male, 72 years old. Shortness of breath. Heart failure. TECHNIQUE: PA and lateral views of the chest. COMPARISON: June 01, 2017. FINDINGS: The lungs are hypoexpanded. There is increased markings at both lung bases. Probable bilateral pleural effusions, right greater than left. The heart remains enlarged. Stable median sternotomy. Normal mediastinum and radha. Normal visualized pulmonary arteries. There is atherosclerotic calcification of the aortic arch with tortuosity. No visualized osseous changes. Again seen is surgical clips in right axilla. There is no demonstrated abnormality of the visualized soft tissue structures of the upper abdomen. RAD/Chest PA and Lateral IMPRESSION: 1. Stable cardiomegaly. 2. Bibasilar infiltrates versus atelectasis with probable pleural effusions. Electronically Signed: Alan Corrigan DO at 16:21 EDT Tel [phone], Service support , CC: Mackenzie Wallace; Jack Verdugo MD Aircraft Refueller: Signed BASIC METABOLIC Collected: 08/05/2017 Status: F Source: [place] PROFILE (BMP) 4:10 PM [facility] REPOSITORY TYPE CODE TESTS RESULT OUT OF RANGE REFERENCE UNITS LAB L501.0100 74-106 mg/dL High GLU 119 Result Comment: Fasting Glucose result from 100 to 125 mg/dL suggests IMPAIRED HOMEOSTASIS per A.D.A. criteria. Please note revised GLUCOSE reference range effective 2017. LAB L501.1000 7-18 mg/dL High BUN 21 LAB L501.1100 0.70-1.30 mg/dL Normal CREAT,SERUM 0.95 Result Comment: The validity of the calculated GFR AND GFRAA in patients over 70 years has not been determined. Clinical correlation is essential. LAB L501.1110 >60 mL/min Normal EST GFR 82 Result Comment: Non- GFR Calc LAB L501.1115 >60 mL/min Normal EST GFR - AA 99 Result Comment: GFR Calc LAB L501.1300 10-20 RATIO High BUN/CRE 22.0 LAB L501.2200 8.5-10.1 mg/dL CA Normal 8.7 LAB L501.5300 136-145 mmol/L NA Normal 142 LAB L501.5600 3.5-5.1 mmol/L K Normal 3.7 LAB L501.5900 98-107 mmol/L CL Normal 100 LAB L501.6100 21.0-32.0 mmol/L High CO2 38.0 LAB L501.6200 5-15 Low GAP 4 Performed By: #### L500.2500 #### [facility] [address] [place], [address] BNP,B-TYPE NATRIURETIC Collected: 08/05/2017 Status: F Source: [place] 4:10 PM [facility] REPOSITORY TYPE CODE TESTS RESULT OUT OF RANGE REFERENCE UNITS LAB L503.6620 0-100 pg/mL Normal B-TYPE 69.4 ROYA PEP Performed By: #### L503.6620 #### [facility] [address] [place], [address] PULMONARY VISIT REPORT Observed: 07/30/2017 Status: F Source: [facility] 6:32 AM [facility] REPOSITORY [facility] [address] [place] [address] OFFICE VISIT Date of Service: 07/29/17 MR#: [id number] Acct: [id number] Name: EVERETT IYER Rep #: [id number] : 1945 Provider: Khari Clay D.O. Age/Sex: 72/M Location: [facility] Status: Signed Assessment AND Plan 1. Chronic obstructive pulmonary disease, unspecified COPD type J44.9 Plan The patient's last PFTs were completed in 2015. He was supposed to have repeat testing completed but failed to do so. He is in need of repeating his pulmonary function tests at this time. However, given the wheezing noted on exam, will hold off for now. The patient's inhaler regimen has been clarified with him. Symbicort will be discontinued. The patient will be continued on Advair and the dose will be increased to the maximum. In addition, he will be continued on Spiriva and as needed albuterol. The patient is also going to be given a 5 day course of prednisone with instructions to follow-up with her nurse practitioner in 1 week. I have advised that I would like him to be able to recite back to her which inhalers he is using on a daily basis and how frequently, to ensure his ongoing compliance. If his breathing quality has improved, PFT orders can be placed at that time. 2. MIKO (obstructive sleep apnea) G47.33 Plan The patient is exceedingly noncompliant with use of his BiPAP. Although I strongly encouraged its use, I have a high clinical suspicion that the patient will remain noncompliant. 3. Chronic respiratory failure with hypoxia J96.11 Plan Continue supplemental oxygen. 4. CHF (congestive heart failure) I50.9 Plan I have recommended that the patient transfer his care from the [facility], given the limited coverage here in [place] and instead opt to establish care with the [place] [facility] here. The patient does seem to be in agreement. Orders Referrals: 5. Morbid obesity due to excess calories E66.01 Plan Weight loss through dietary modification and a graded exercise regimen is strongly encouraged. Plan Detail Other Orders Referrals: Other Medications New: tiotropium bromide 2.5 mcg/actuation (Spiriva Respimat) admini2 puffs Inhalation Q24H ster at approximately same time(s) each day Discontinued: budesonide-formoterol 160-4.5 mcg/actuation (Symbicort) Discon2 puffs Inhalation Q12H tinued Reason: Order Changed Follow Up 1 Week ([facility]) HPI HPI Comments Details: The patient is a 72-year-old male who presents to the clinic today for a routine scheduled follow-up office visit due to underlying COPD and obstructive sleep apnea. If you recall, I initially saw the patient when he was admitted to the hospital on February 2016 with acute hypoxic respiratory insufficiency due to underlying RV systolic dysfunction and pulmonary hypertension. The patient has known moderately severe obstructive lung disease with significant response to aerosolized bronchodilators and evidence of air trapping and reduction in diffusing capacity, based off of PFTs completed in April 2016. The patient also has known severe obstructive sleep apnea, which was diagnosed in December 2015. His last surface echocardiogram from November 2015 showed evidence of a moderately dilated RV with RV systolic dysfunction and a right ventricular systolic pressure which was estimated to be 47 mmHg. The patient has an approximate 63-bhdt-puwa smoking history, having quit in 1966. Patient eventually underwent a titration study which was recommended that he be placed on BiPAP therapy with a pressure setting of 18/12 cm of water. Today, the patient reports interval worsening in his breathing quality. He has been noncompliant with the use of his BiPAP and has been using his maintenance inhalers and appropriately. Upon further review with the patient, he states that he is utilizing both Advair and Symbicort, along with Spiriva and as needed albuterol. He does not seem to understand which inhalers need to be utilized as a maintenance regimen versus rescue. In fact, he has utilized his Symbicort upwards of 4 times per day and states that he at times will use his rescue inhaler 10 times per day. He does endorse the presence of wheezing, but denies the presence of a productive cough. The patient's BiPAP compliance report was personally reviewed at today's office visit. Over the last 30 days, the patient has used his BiPAP only 6 days. Despite the evidence of noncompliance, the patient remains insistent that he is utilizing his nocturnal Pap therapy on a nightly basis. He denies the presence of fevers, chills or night sweats. He denies chest pain, dizziness or lightheadedness. Intake Vital Signs07/29/17 Height 5 ft 8 in 07/29/17 Weight: 390 lb Intake Visit Reasons: 2 [place] [facility] [place] Jhonathan Accompanied by: Son Allergies naphazoline HCl [From Naphcon] Allergy (Severe, Verified 07/29/17 14:22) affected his breathing amlodipine besylate [From Norvasc] Allergy (Verified 07/29/17 14:22) Other dextromethorphan Allergy (Verified 07/29/17 14:22) Other levofloxacin [From Levaquin] Adverse Reaction (Mild, Verified 07/29/17 14:22) made me hyperactive Medications Albuterol Sulfate [Ventolin Hfa] 2 inhaler PO Q6H PRN PRN 03/30/17 [History Confirmed 07/29/17] Allopurinol [Zyloprim] 300 mg PO DAILY 03/30/17 [History Confirmed 07/29/17] Atorvastatin Calcium [Lipitor] 40 mg PO QHS 03/30/17 [History Confirmed 07/29/17] Clonidine Patch [Catapres-Tts3] 1 patch TOPICAL FR 03/30/17 [History Confirmed 07/29/17] Clopidogrel Bisulfate [Plavix] 1 tab PO DAILY 03/30/17 [History Confirmed 07/29/17] Docusate Sodium [Colace] 100 mg PO DAILY 03/30/17 [History Confirmed 07/29/17] Ferrous Sulfate 325 mg PO DAILY 03/30/17 [History Confirmed 07/29/17] Finasteride [Proscar] 5 mg PO DAILY 03/30/17 [History Confirmed 07/29/17] Glimepiride [Amaryl] 2 tab PO BREAKFAST 03/30/17 [History Confirmed 07/29/17] Hydroxyzine HCl 25 mg PO TID PRN 03/30/17 [History Confirmed 07/29/17] Insulin Glargine [Lantus SoloStar Pen] 30 units PO BID 03/30/17 [History Confirmed 07/29/17] Lansoprazole 15 mg PO DAILY 03/30/17 [History Confirmed 07/29/17] Losartan Potassium 100 mg PO DAILY 03/30/17 [History Confirmed 07/29/17] Magnesium Oxide [Mag-Ox 400] 800 mg PO BID 03/30/17 [History Confirmed 07/29/17] Metformin HCl [Glucophage] 500 mg PO TID 03/30/17 [History Confirmed 07/29/17] Metoprolol Tartrate [Lopressor (beta maryam)] 50 mg PO BID 03/30/17 [History Confirmed 07/29/17] Multivitamins,Therapeutic [Multivitamin] 1 tab PO DAILY 03/30/17 [History Confirmed 07/29/17] Sertraline HCl [Zoloft] 100 mg PO DAILY 03/30/17 [History Confirmed 07/29/17] Spironolactone 25 mg PO BID 03/30/17 [History Confirmed 07/29/17] Terazosin HCl [Hytrin] 10 mg PO QHS 03/30/17 [History Confirmed 07/29/17] Furosemide [Lasix] 40 mg PO BID 30 Days #120 tab 06/05/17 [Rx Confirmed 07/29/17] Prednisone [Deltasone] 40 mg PO DAILY 5 Days #10 tab 06/05/17 [Rx Confirmed 07/29/17] fluticasone 500 mcg-salmeterol 50 mcg/dose blistr powdr for inhalation 1 inh INHALATION Q12H #1 device 07/29/17 [Rx Confirmed 07/29/17] prednisone 20 mg tablet 40 mg PO QDAY 5 Days #10 tab 07/29/17 [Rx Confirmed 07/29/17] tiotropium bromide 2.5 mcg/actuation mist for inhalation 2 puff INHALATION Q24H #1 device 07/29/17 [Rx Confirmed 07/29/17] PFSH Medical History Wheezing (Chronic) Dyspnea (Chronic) Heart failure (Chronic) MIKO (obstructive sleep apnea) (Chronic) HTN (hypertension) (Chronic) Tobacco abuse (Resolved) Anemia (Chronic) BPH (benign prostatic hypertrophy) (Chronic) Tinea unguium (Chronic) Diabetes mellitus with neuropathy (Chronic) Leg swelling (Chronic) Edema of both legs (Chronic) Lymphedema of leg (Chronic) Multiple excoriations (Chronic) Asthma (Chronic) COPD (chronic obstructive pulmonary disease) (Chronic) Arthritis (Chronic) Immobility (Chronic) Pulmonary embolism on right (Chronic) CAP (community acquired pneumonia) (Resolved) Adynamic ileus (Chronic) Ventral hernia (Chronic) Nausea and vomiting (Inactive) Hypoglycemia (Chronic) Peripheral neuropathy (Chronic) Chronic anemia (Chronic) Benign essential hypertension (Chronic) Benign prostatic hypertrophy without urinary obstruction (Chronic) CKD (chronic kidney disease), stage II (Chronic) CHF (congestive heart failure) (Chronic) CAD (coronary artery disease) (Chronic) Type II diabetes mellitus (Chronic) GERD (gastroesophageal reflux disease) (Chronic) Hypercholesteremia (Chronic) Morbid obesity (Chronic) Pulmonary hypertension (Chronic) Venous insufficiency (Chronic) Tinea unguium (Chronic) Morbid obesity (Chronic) Surgical History H/O aortic valve replacement (Chronic) S/P AAA repair (Chronic) Family History Brother TBI (traumatic brain injury) Sister Ulcerative colitis Social History adopted: No household members: spouse housing: house current occupational status: retired current occupational exposures/hazards: No pets and animals: No history of recent travel: No Smoking Status: Former smoker second hand exposure: Yes alcohol intake: never substance use type: does not use Review of Systems Const CONSTITUTIONAL: Positive daytime sleepiness and fatigue; negative anorexia, body ache, chills, fever(s), night sweats, oral thrush, stops breathing during sleep, weight loss, sleeping in chair, weight loss, weight gain, frequent colds, seasonal allergies, other, headache(s) or orthopnea EETM Ear Nose Throat Mouth: Positive hard of hearing, hoarseness, dry mouth in morning and nasal discharge; negative hearing normal, change in vision, itchy eyes, eye pain, swallowing Difficulty, ear pain, nose bleed, headache(s), mouth pain, nasal congestion, post nasal drip, sinus pain, sinus pressure, sore throat or other Cardio Cardiovascular: Positive edema Location: lower extremity; negative chest pain, chest pain at rest, chest pain with activity, irregular heart rhythm, shortness of breath when lying down, palpitations, murmur or other Resp Respiratory: Positive as per HPI, shortness of breath shortness of breath: Positive while talking, with activity, lying down, worsening and other (at rest), cough cough: Positive productive color: Positive thick, white and yellow, inhalers and increase use of rescue inhalers (10X/day); negative pain with cough, wheezing, chest congestion, chest tightness, pain on inspiration, snoring, apnea or other Gastro Gastrointestional: Negative bloody stools, change in appetite, difficulty swallowing, reflux, hematemesis, melena stool, loose stool, constipation or other Genitourinary: Negative blood in urine, nocturia, pain with urination or other Musc Musculoskeletal: Positive body pain and back pain; negative neck pain or other Skin/Breast Skin/Breast: Negative dry skin, itching, rash, unusual bruising, breast lump or other Neuro Neurological: Negative restless legs, confusion, weakness or other Psych Psychocological: Negative abnormal sleep pattern, anxiety, thoughts of hurting self/others, hopelessness or other Lymph Lymphatic: Negative easy bleeding, easy bruising, swollen lymph nodes or other Exam Const Constitutional: Positive conversant, cooperative, well developed, well nourished, poor hygiene and obese Head Head: Positive normocephalic and atraumatic; negative cyanosis of lips/distal nose Eyes Eye: Positive clear conjunctiva; negative nystagmus or scleral abnormality Ears Ear: Positive hard of hearing and external ears normal; negative hearing normal Nose Nose: Positive external nose normal; negative epistaxis Mouth Mouth: Positive oral mucosae normal, no lesions and crowded posterior oropharynx; negative post nasal drip or oral thrush present Mallampati Score: III: Mallampati Score Neck Neck: Positive normal visual inspection, trachea midline and male neck greater than 43 cm (17 in); negative lymphadenopathy Chest Wall Chest: Positive symmetric chest movement Normal AP diameter. Resp Poor inspiratory effort with corresponding diminished air movement bilaterally with diffuse bilateral and expiratory wheezes. Cardio Cardiac: Positive regular rate, regular rhythm, S1 normal and S2 normal; negative murmur, rub or gallop GI GI: Positive normal bowel sounds and obese Soft without distention Genitourinary: Positive deferred Musc Musculoskeletal: Positive in a wheelchair Skin Pulmonary Skin Exam: Positive intact; negative rash or lesion Pulses Pulse: Yes Pedal pulses present: Extremities Extremities: No clubbing, No cyanosis, Yes edema Location: lower extremity, Yes stasis dermatitis Neuro Neurologic: Yes conversant, Yes no focal neuro deficits, Yes cooperative Seems to lack insight Lymph Lymphatic: No lymphadenopathy Psych Appearance: Positive grossly normal Mental Status: Positive mental status grossly normal Mood: Positive congruent mood Affect: Positive normal affect Coding Level of Care Code Off vis,est,level 3 Diagnoses Chronic obstructive pulmonary disease, unspecified COPD type J44.9 COPD type: unspecified COPD MIKO (obstructive sleep apnea) G47.33 Chronic respiratory failure with hypoxia J96.11 CHF (congestive heart failure) I50.9 Morbid obesity due to excess calories E66.01 07/30/17 0632 <Electronically signed by Khari Clay DO> Date Khari Clay DO Cosigner Signature: Date (if applicable) CC: Jack Verdugo MD PROGRESS Observed: 07/20/2017 Status: COMPLETED Source: [place] 10:20 AM [facility] REPOSITORY O ID: [id number] Author: Jack Verdugo Service: (none) Author Type: Physician Type: Progress Notes Filed: 07/20/2017 12:14 PM Note Text: This note was created using Reksoftriter. Subjective Everett Iyer is a 72 year old male here for follow up. Chronic wounds in his legs were wrapped regularly once or twice a week by his daughter. [employer] discharged him from care and the company ceased operations here in [place]. [facility] but was discharged for non compliance. He admitted to scratching his legs when bored. I tried him on olanzapine in April for obsessive compulsive disorder but there was no follow up, and medication was not refilled. He did not recall any adverse effects nor benefit either. There was concern about fever of his legs. His DM was not well controlled. Other issues were stable. ACTIVE PROBLEM LIST Asthma Hypertension Goal Bp (Blood Pressure) < 150/90 Gout, unspecified BPH W URINARY OBS/LUTS Lymphedema of Both Lower Extremities Unspecified Cardiovascular Disease Osteoarthritis of Knee GERD Dm Type 2, Uncontrolled, With Neuropathy (Hcc) Hyperlipidemia With Target Ldl Less Than 70 Anemia CKD (chronic kidney disease) stage 3, GFR 30-59 ml/min Copd (Chronic Obstructive Pulmonary Disease) (Hcc) Status Post Aortic Valve Replacement With Prosthetic Valve Stasis Leg Ulcer (Hcc) Pruritic Disorder Miko (Obstructive Sleep Apnea) Pulmonary Embolus (Hcc) Obsessive-Compulsive Disorder Acute Congestive Heart Failure (Hcc) Current Outpatient Prescriptions: loratadine (CLARITIN) 10 mg tablet Take 10 mg by mouth once daily. COMPOUNDED PRESCRIPTION Take 2 tablets by mouth once daily. Mucus relief PE clopidogrel (PLAVIX) 75 mg tablet Take 1 tablet by mouth once daily. spironolactone (ALDACTONE) 25 mg tablet TAKE 1 TABLET TWICE DAILY atorvastatin (LIPITOR) 80 mg tablet Take 0.5 tablets by mouth once daily. metoprolol tartrate, short acting, (LOPRESSOR) 50 mg tablet Take 1 tablet by mouth twice daily. COMPOUNDED PRESCRIPTION NEBULIZER ORAL APPLIANCES AND SUPPLIES. DX:J44.9 OLANZapine (ZYPREXA) 2.5 mg tablet Take 1 tablet by mouth daily at bedtime. albuterol HFA (VENTOLIN HFA) 90 mcg/actuation inhaler Inhale 2 Puffs as instructed every 6 hours as needed for Wheezing/Shortness of Breath. losartan (COZAAR) 100 mg tablet TAKE 1 TABLET BY MOUTH EVERY DAY insulin glargine (LANTUS SOLOSTAR) 100 unit/mL (3 mL) inpn Inject 60 Units subcutaneously daily at bedtime. furosemide (LASIX) 20 mg tablet Take 1 tablet by mouth every evening. In addition to 40 mg daily. sertraline (ZOLOFT) 50 mg tablet Take 1 tablet by mouth every evening. In addition to 100 mg daily. sertraline (ZOLOFT) 100 mg tablet Take 1 tablet by mouth once daily. fluticasone-salmeterol (ADVAIR DISKUS) 250-50 mcg/dose dsdv Inhale 1 Puff as instructed twice daily. Rinse and gargle mouth after use with water. Per Dr. Memo Clay. hydrOXYzine HCl (ATARAX) 25 mg tablet TAKE 1 TABLET BY MOUTH THREE TIMES DAILY for nervous itching/scratching cloNIDine TTS (CATAPRES-TTS) 0.3 mg/24 hr Apply 1 Patch as directed once each week. glimepiride (AMARYL) 4 mg tablet Take 2 tablets by mouth daily with breakfast. lansoprazole (PREVACID) 15 mg capsule Take 1 capsule by mouth once daily. furosemide (LASIX) 40 mg tablet Take 1 tablet by mouth once daily. allopurinol (ZYLOPRIM) 300 mg tablet Take 1 tablet by mouth once daily. For gout. blood sugar diagnostic (EatwaveTOUCH ULTRA TEST) test strip Check 4x times a day. Dx: E11.65. On insulin. Hypoglycemia. Lancets (EatwaveTOUCH ULTRASOFT LANCETS) lancets Use four times a day Dx: E11.65 metFORMIN (GLUCOPHAGE) 500 mg tablet Take 1 tablet by mouth three times daily with meals. tiotropium (SPIRIVA WITH HANDIHALER) 18 mcg inhalation capsule Inhale 1 capsule as instructed once daily. USE WITH HANDIHALER. insulin needles, DISPOSABLE, (BD INSULIN PEN NEEDLE UF) 31 gauge x 5/16 ndle 1 Each once daily. Dx: 250.00 Insulin: yes ipratropium-albuterol (DUONEB) 0.5 mg-3 mg(2.5 mg base)/3 mL nebu Inhale 3 mL as instructed every 4 hours as needed (wheezing). Use over 5-15minutes per nebulizer. acetaminophen (TYLENOL EXTRA STRENGTH) 500 mg tablet Take 2 tablets by mouth every 6 hours as needed for Pain (Patient takes 2x/day). Terazosin HCl (HYTRIN) 10 mg capsule Take 1 capsule by mouth daily at bedtime. finasteride (PROSCAR) 5 mg tablet Take 1 tablet by mouth once daily. Ferrous Sulfate 325 mg (65 mg iron) tablet Take 1 tablet by mouth once daily. alcohol antiseptic pads(ALCOHOL PREP PADS) use as directed COMPRESSION STOCKING,KNEE HIGH,LONG LENGTH,X-LARGE Sig Varis compression stockings. 30-40 mm Hg- size X2 - open toe. Beige. COLACE 100 MG CAP Take one(1) tablet two(2) times daily. MULTIVITAMIN TAB Take one(1) tablet daily. ELIQUIS 5 mg tab tab(s) TAKE 1 TABLET TWICE DAILY magnesium oxide (MAG-OX) 400 mg tablet Take 2 tablets by mouth twice daily. No current facility-administered medications for this visit. Review of Systems Constitutional: Negative. HENT: Negative. Respiratory: Positive for shortness of breath. Negative for cough and wheezing. Chronic. Cardiovascular: Positive for leg swelling. Negative for chest pain and palpitations. Gastrointestinal: Negative. Musculoskeletal: Positive for arthralgias. Skin: Positive for rash and wound. Objective BP 139/81 (BP Site: Right Arm, BP Position: Sitting, BP Cuff Size: Large Adult) Pulse 89 Temp 36.9 ?C (98.4 ?F) (Left Tympanic) Resp 24 Wt (!) 174.2 kg (384 lb 1.9 oz) BMI 58.41 kg/m2 Physical Exam Constitutional: No distress. Morbid obesity. On O2 via NC. Cardiovascular: Normal heart sounds. Pulmonary/Chest: Effort normal and breath sounds normal. Musculoskeletal: He exhibits edema. Neurological: He is alert. Wheelchair bound. Skin: Legs in compression wrap. Erythema, multiple excoriations of the right proximal leg. Left leg much better with dried excoriations and no erythema. Stasis pigmentation. Assessment and Plan ASSESSMENT/PLAN: 1. Cellulitis of right leg - ICD9: 682.6, ICD10: L03.115 (primary diagnosis) - Begin treatment with Cephalaxin (Keflex) - CEPHALEXIN 500 MG CAPSULE - Refer to other Home Health for wound care, wrapping. 2. Chronic obstructive pulmonary disease, unspecified COPD type (HCC) - ICD9: 496, ICD10: J44.9 Stable. - ALBUTEROL SULFATE HFA 90 MCG/ACTUATION AEROSOL INHALER 3. Hypertension goal BP (blood pressure) < 150/90 - ICD9: 401.9, ICD10: I10 - fair control 4. Lymphedema of both lower extremities - ICD9: 457.1, ICD10: I89.0 As above. 5. Venous stasis ulcer of right lower extremity (HCC) - ICD9: 454.0, ICD10: I83.019, L97.919 As above. 6. DM type 2, uncontrolled, with neuropathy (HCC) - ICD9: 250.62, 357.2, ICD10: E11.40, E11.65 worsening control - Continue current medications - ALBUMIN/CREAT RATIO RND UR - HEMOGLOBIN A1C (POC) 7. Pruritic disorder - ICD9: 698.9, ICD10: L29.9 New medication. Discussed medication dosage, usage, goals of therapy, and side effects. - OLANZAPINE 2.5 MG TABLET 8. Obsessive-compulsive disorder, unspecified type - ICD9: 300.3, ICD10: F42.9 See #7. - OLANZAPINE 2.5 MG TABLET Jack Verdugo MD PROGRESS Observed: 06/22/2017 Status: COMPLETED Source: [place] 1:09 PM [facility] REPOSITORY [facility] ID: [id number] Author: Jennifer (Prabha) Older Service: (none) Author Type: Nurse Practitioner Type: Progress Notes Filed: 06/22/2017 3:46 PM Note Text: CC: Patient presents with: [facility] Follow up: COPD exacerbation HPI Everett Iyer is a 72 year old male who presents today for hospital follow-up for COPD exacerbation and CHF, admitted on 06/01/17. Treated with Lasix, IV steroids and bronchodilators. Discharged home on 06/05/17 with prescriptions for Prednisone and Lasix 40 mg BID. Has follow-up appointment scheduled with python architect this week. [facility]- rescheduled for August. SOB may be a little worse due to the humitidy per patient. Had to increase oxygen to 6 liters, oxygen sats at home in the high 90's. No worsening of wheezing or cough that is productive with clear sputum. Does not weight himself, clothes don't feel any tighter. Has slept in recliner for years. Swelling in legs has improved a little with Lasix. No fever, chills. Good appetite. No issues with bowels. Lymphedema bilateral legs with wounds from scratching. Home health on Thursday/Thursday to change Christine boot dressings to legs, will be discharged soon. Wounds have improved, no pain or drainage. BP high today. Checked at home this morning, was 168/86. Blood sugars in the mid 100's. REVIEW OF SYSTEMS Respiratory: no hemoptysis Cardiovascular: no chest pain, no chest pressure and no palpitations PAST MEDICAL HISTORY Diagnosis Date - A-fib 12/13/2009 - Ascending aortic aneurysm (HCC) 05/10/2010 - CVA (cerebral vascular accident) (HCC) 09/09/2010 Right thalamic stroke. - Esophageal reflux - Gout, unspecified - Hypertension - Hypertrophy of prostate with urinary obstruction and other lower urinary tract symptoms (LUTS) 03/06/2005 - Ileus (HCC) 12/13/2009 - Obesity, unspecified - MIKO (obstructive sleep apnea) 01/24/2016 - Osteoarthritis of knee 08/14/2009 Dr. Tee. - Other and unspecified hyperlipidemia - Other ventral hernia without mention of obstruction or gangrene chronic - Sepsis(995.91) 01/12/2010 - Status post aortic valve replacement with prosthetic valve 12/11/2009 - Temporomandibular joint disorders, unspecified 1960 left side - Thoracic aneurysm without mention of rupture 08/07/2006 Paras Paulino MD. [place]. aortic root-6.1x6.8cm; ascending 4.5cm - Type II or unspecified type diabetes mellitus without mention of complication, uncontrolled - Unspecified asthma(493.90) PAST SURGICAL HISTORY Procedure Laterality Date - ASCENDING AORTIC GRAFT 12/11/2009 - COLONOSCOP W/ OR W/O BRSH SPEC 12/17/2004 Colonoscopy - COLONOSCOP W/ OR W/O BRSH SPEC 01/03/15 Colonoscopy outpt [facility] incomplete/ba enema done - CYSTO.PANENDO 06/11/2007 Cystoscopy - MIDLINE INSERTION/CONSULT 12/03/2013 - PAST SURGICAL HISTORY OF 05/2006 Left leg hematoma removed-Dr. Garcia - REP INIT INCI/VENTRAL HERNIA REDUCIBLE 11/30/2013 Lysis adhesions, - S VALVE,AORTIC,FREESTYLE,FR995 12/11/2009 ALLERGIES Levaquin [Levofloxacin]; Naldecon Senior Dx [Dextromethorphan-Guaifenesin]; Norvasc [Amlodipine Besylate] MEDICATIONS clopidogrel (PLAVIX) 75 mg tablet Take 1 tablet by mouth once daily. spironolactone (ALDACTONE) 25 mg tablet TAKE 1 TABLET TWICE DAILY atorvastatin (LIPITOR) 80 mg tablet Take 0.5 tablets by mouth once daily. metoprolol tartrate, short acting, (LOPRESSOR) 50 mg tablet Take 1 tablet by mouth twice daily. COMPOUNDED PRESCRIPTION NEBULIZER ORAL APPLIANCES AND SUPPLIES. DX:J44.9 OLANZapine (ZYPREXA) 2.5 mg tablet Take 1 tablet by mouth daily at bedtime. ELIQUIS 5 mg tab tab(s) TAKE 1 TABLET TWICE DAILY albuterol HFA (VENTOLIN HFA) 90 mcg/actuation inhaler Inhale 2 Puffs as instructed every 6 hours as needed for Wheezing/Shortness of Breath. losartan (COZAAR) 100 mg tablet TAKE 1 TABLET BY MOUTH EVERY DAY insulin glargine (LANTUS SOLOSTAR) 100 unit/mL (3 mL) inpn Inject 60 Units subcutaneously daily at bedtime. furosemide (LASIX) 20 mg tablet Take 1 tablet by mouth every evening. In addition to 40 mg daily. sertraline (ZOLOFT) 50 mg tablet Take 1 tablet by mouth every evening. In addition to 100 mg daily. sertraline (ZOLOFT) 100 mg tablet Take 1 tablet by mouth once daily. fluticasone-salmeterol (ADVAIR DISKUS) 250-50 mcg/dose dsdv Inhale 1 Puff as instructed twice daily. Rinse and gargle mouth after use with water. Per Dr. Memo Clay. hydrOXYzine HCl (ATARAX) 25 mg tablet TAKE 1 TABLET BY MOUTH THREE TIMES DAILY for nervous itching/scratching cloNIDine TTS (CATAPRES-TTS) 0.3 mg/24 hr Apply 1 Patch as directed once each week. glimepiride (AMARYL) 4 mg tablet Take 2 tablets by mouth daily with breakfast. lansoprazole (PREVACID) 15 mg capsule Take 1 capsule by mouth once daily. furosemide (LASIX) 40 mg tablet Take 1 tablet by mouth once daily. allopurinol (ZYLOPRIM) 300 mg tablet Take 1 tablet by mouth once daily. For gout. blood sugar diagnostic (OVGuideUCH ULTRA TEST) test strip Check 4x times a day. Dx: E11.65. On insulin. Hypoglycemia. Lancets (EatwaveTOUCH ULTRASOFT LANCETS) lancets Use four times a day Dx: E11.65 metFORMIN (GLUCOPHAGE) 500 mg tablet Take 1 tablet by mouth three times daily with meals. tiotropium (SPIRIVA WITH HANDIHALER) 18 mcg inhalation capsule Inhale 1 capsule as instructed once daily. USE WITH HANDIHALER. insulin needles, DISPOSABLE, (BD INSULIN PEN NEEDLE UF) 31 gauge x 5/16 ndle 1 Each once daily. Dx: 250.00 Insulin: yes magnesium oxide (MAG-OX) 400 mg tablet Take 2 tablets by mouth twice daily. ipratropium-albuterol (DUONEB) 0.5 mg-3 mg(2.5 mg base)/3 mL nebu Inhale 3 mL as instructed every 4 hours as needed (wheezing). Use over 5-15minutes per nebulizer. acetaminophen (TYLENOL EXTRA STRENGTH) 500 mg tablet Take 2 tablets by mouth every 6 hours as needed for Pain (Patient takes 2x/day). Terazosin HCl (HYTRIN) 10 mg capsule Take 1 capsule by mouth daily at bedtime. finasteride (PROSCAR) 5 mg tablet Take 1 tablet by mouth once daily. Ferrous Sulfate 325 mg (65 mg iron) tablet Take 1 tablet by mouth once daily. alcohol antiseptic pads(ALCOHOL PREP PADS) use as directed COMPRESSION STOCKING,KNEE HIGH,LONG LENGTH,X-LARGE Sig Varis compression stockings. 30-40 mm Hg- size X2 - open toe. Beige. COLACE 100 MG CAP Take one(1) tablet two(2) times daily. MULTIVITAMIN TAB Take one(1) tablet daily. FAMILY HISTORY Problem Relation Age of Onset - Hypertension Mother - Genitourinary () Mother age 84, renal failure - Prostate Cancer Father age 94 - GI Sister ulcerative colitis, ileostomy Social History Substance Use Topics - Smoking status: Former Smoker Quit date: 05/25/1966 - Smokeless tobacco: Never Used - Alcohol use No Comment: rare mixed drink PHYSICAL EXAM BP 130/100 Pulse 64 Temp 36.7 ?C (98 ?F) (Temporal Artery) Resp 16 SpO2 99% General Appearance: well appearing, in no acute distress, alert Neck: Thyroid normal size and symmetric without palpable nodules, Neck supple, No adenopathy Lungs: Lungs clear to auscultation. No wheezing, rhonchi, rales Heart: RRR without murmur, gallop, or rubs. No ectopy Lower Extremities: Good capillary refill. Pulses: 2+, Edema: 2+ non-pitting lymphedema to bilateral lower legs. Christine boots removed. Skin with patchy red and brown venous stasis changes. Right lower leg: Two superficial, small open wounds without signs of infection. Left lower leg: Skin intact. ASSESSMENT/PLAN: 1. COPD with exacerbation (HCC) - ICD9: 491.21, ICD10: J44.1 (primary diagnosis) Patient's respiratory status back to baseline Continue with home oxygen and breathing treatments Follow-up with pulmonology as scheduled Follow-up with PCP in one month as scheduled 2. Acute congestive heart failure, unspecified congestive heart failure type (HCC) - ICD9: 428.0, ICD10: I50.9 Leg swelling improved. No weight gain or worsening symptoms Continue with Lasix as prescribed Follow-up as above 3. Lymphedema of both lower extremities - ICD9: 457.1, ICD10: I89.0 Continued need for Christine boots, home health to change. Will send order for continued home health 4. Open wound of right lower extremity without complication, initial encounter - ICD9: 891.0, ICD10: S81.801A Healing well, no signs of infection. No wound treatment/dressings indicated at this time Jennifer Older, POWER SYSTEM ENGINEER Prescription instructions reviewed with patient as applicable. Potential red flag symptoms discussed with the patient. Reviewed appropriate action plan to take if red flag symptoms occur. Patient agreeable to treatment plan. STU Observed: 06/22/2017 Status: COMPLETED Source: [place] 1:00 PM [facility] REPOSITORY Office Visit (INTMWS) EVERETT IYER ([id number]) 1945 M Date Time Provider Department 06/22/17 1:00 PM JENNIFER SINCLAIR (PRABHA) INTMWS During your visit today, we recorded the following information about you: Temperature Pulse Respiration Blood pressure 98 degrees 64/minute 16/minute 130/56 Jennifer PRABHA Sinclair 06/22/2017 3:46 PM Signed CC: Patient presents with: [facility] Follow up: COPD exacerbation HPI Everett Iyer is a 72 year old male who presents today for hospital follow-up for COPD exacerbation and CHF, admitted on 06/01/17. Treated with Lasix, IV steroids and bronchodilators. Discharged home on 06/05/17 with prescriptions for Prednisone and Lasix 40 mg BID. Has follow-up appointment scheduled with python architect this week. Cripple Cutter- rescheduled for August. SOB may be a little worse due to the humitidy per patient. Had to increase oxygen to 6 liters, oxygen sats at home in the high 90's. No worsening of wheezing or cough that is productive with clear sputum. Does not weight himself, clothes don't feel any tighter. Has slept in recliner for years. Swelling in legs has improved a little with Lasix. No fever, chills. Good appetite. No issues with bowels. Lymphedema bilateral legs with wounds from scratching. Home health on Thursday/Thursday to change Christine boot dressings to legs, will be discharged soon. Wounds have improved, no pain or drainage. BP high today. Checked at home this morning, was 168/86. Blood sugars in the mid 100's. REVIEW OF SYSTEMS Respiratory: no hemoptysis Cardiovascular: no chest pain, no chest pressure and no palpitations PAST MEDICAL HISTORY Diagnosis Date - A-fib 12/13/2009 - Ascending aortic aneurysm (HCC) 05/10/2010 - CVA (cerebral vascular accident) (HCC) 09/09/2010 Right thalamic stroke. - Esophageal reflux - Gout, unspecified - Hypertension - Hypertrophy of prostate with urinary obstruction and other lower urinary tract symptoms (LUTS) 03/06/2005 - Ileus (HCC) 12/13/2009 - Obesity, unspecified - MIKO (obstructive sleep apnea) 01/24/2016 - Osteoarthritis of knee 08/14/2009 Dr. Tee. - Other and unspecified hyperlipidemia - Other ventral hernia without mention of obstruction or gangrene chronic - Sepsis(995.91) 01/12/2010 - Status post aortic valve replacement with prosthetic valve 12/11/2009 - Temporomandibular joint disorders, unspecified 1960 left side - Thoracic aneurysm without mention of rupture 08/07/2006 Paras Paulino MD. [place] [facility]. aortic root-6.1x6.8cm; ascending 4.5cm - Type II or unspecified type diabetes mellitus without mention of complication, uncontrolled - Unspecified asthma(493.90) PAST SURGICAL HISTORY Procedure Laterality Date - ASCENDING AORTIC GRAFT 12/11/2009 - COLONOSCOP W/ OR W/O BRSH SPEC 12/17/2004 Colonoscopy - COLONOSCOP W/ OR W/O BRS SPEC 01/03/15 Colonoscopy outpt [facility] incomplete/ba enema done - CYSTO.PANENDO 06/11/2007 Cystoscopy - MIDLINE INSERTION/CONSULT 12/03/2013 - PAST SURGICAL HISTORY OF 05/2006 Left leg hematoma removed-Dr. Garcia - REP INIT INCI/VENTRAL HERNIA REDUCIBLE 11/30/2013 Lysis adhesions, - S VALVE,AORTIC,FREESTYLE,FR995 12/11/2009 ALLERGIES Levaquin [Levofloxacin]; Naldecon Senior Dx [Dextromethorphan-Guaifenesin]; Norvasc [Amlodipine Besylate] MEDICATIONS clopidogrel (PLAVIX) 75 mg tablet Take 1 tablet by mouth once daily. spironolactone (ALDACTONE) 25 mg tablet TAKE 1 TABLET TWICE DAILY atorvastatin (LIPITOR) 80 mg tablet Take 0.5 tablets by mouth once daily. metoprolol tartrate, short acting, (LOPRESSOR) 50 mg tablet Take 1 tablet by mouth twice daily. COMPOUNDED PRESCRIPTION NEBULIZER ORAL APPLIANCES AND SUPPLIES. DX:J44.9 OLANZapine (ZYPREXA) 2.5 mg tablet Take 1 tablet by mouth daily at bedtime. ELIQUIS 5 mg tab tab(s) TAKE 1 TABLET TWICE DAILY albuterol HFA (VENTOLIN HFA) 90 mcg/actuation inhaler Inhale 2 Puffs as instructed every 6 hours as needed for Wheezing/Shortness of Breath. losartan (COZAAR) 100 mg tablet TAKE 1 TABLET BY MOUTH EVERY DAY insulin glargine (LANTUS SOLOSTAR) 100 unit/mL (3 mL) inpn Inject 60 Units subcutaneously daily at bedtime. furosemide (LASIX) 20 mg tablet Take 1 tablet by mouth every evening. In addition to 40 mg daily. sertraline (ZOLOFT) 50 mg tablet Take 1 tablet by mouth every evening. In addition to 100 mg daily. sertraline (ZOLOFT) 100 mg tablet Take 1 tablet by mouth once daily. fluticasone-salmeterol (ADVAIR DISKUS) 250-50 mcg/dose dsdv Inhale 1 Puff as instructed twice daily. Rinse and gargle mouth after use with water. Per Dr. Memo Caly. hydrOXYzine HCl (ATARAX) 25 mg tablet TAKE 1 TABLET BY MOUTH THREE TIMES DAILY for nervous itching/scratching cloNIDine TTS (CATAPRES-TTS) 0.3 mg/24 hr Apply 1 Patch as directed once each week. glimepiride (AMARYL) 4 mg tablet Take 2 tablets by mouth daily with breakfast. lansoprazole (PREVACID) 15 mg capsule Take 1 capsule by mouth once daily. furosemide (LASIX) 40 mg tablet Take 1 tablet by mouth once daily. allopurinol (ZYLOPRIM) 300 mg tablet Take 1 tablet by mouth once daily. For gout. blood sugar diagnostic (EatwaveTOUCH ULTRA TEST) test strip Check 4x times a day. Dx: E11.65. On insulin. Hypoglycemia. Lancets (EatwaveTOUCH ULTRASOFT LANCETS) lancets Use four times a day Dx: E11.65 metFORMIN (GLUCOPHAGE) 500 mg tablet Take 1 tablet by mouth three times daily with meals. tiotropium (SPIRIVA WITH HANDIHALER) 18 mcg inhalation capsule Inhale 1 capsule as instructed once daily. USE WITH HANDIHALER. insulin needles, DISPOSABLE, (BD INSULIN PEN NEEDLE UF) 31 gauge x 5/16ANDquot; ndle 1 Each once daily. Dx: 250.00 Insulin: yes magnesium oxide (MAG-OX) 400 mg tablet Take 2 tablets by mouth twice daily. ipratropium-albuterol (DUONEB) 0.5 mg-3 mg(2.5 mg base)/3 mL nebu Inhale 3 mL as instructed every 4 hours as needed (wheezing). Use over 5-15minutes per nebulizer. acetaminophen (TYLENOL EXTRA STRENGTH) 500 mg tablet Take 2 tablets by mouth every 6 hours as needed for Pain (Patient takes 2x/day). Terazosin HCl (HYTRIN) 10 mg capsule Take 1 capsule by mouth daily at bedtime. finasteride (PROSCAR) 5 mg tablet Take 1 tablet by mouth once daily. Ferrous Sulfate 325 mg (65 mg iron) tablet Take 1 tablet by mouth once daily. alcohol antiseptic pads(ALCOHOL PREP PADS) use as directed COMPRESSION STOCKING,KNEE HIGH,LONG LENGTH,X-LARGE Sig Varis compression stockings. 30-40 mm Hg- size X2 - open toe. Beige. COLACE 100 MG CAP Take one(1) tablet two(2) times daily. MULTIVITAMIN TAB Take one(1) tablet daily. FAMILY HISTORY Problem Relation Age of Onset - Hypertension Mother - Genitourinary () Mother age 84, renal failure - Prostate Cancer Father age 94 - GI Sister ulcerative colitis, ileostomy Social History Substance Use Topics - Smoking status: Former Smoker Quit date: 05/25/1966 - Smokeless tobacco: Never Used - Alcohol use No Comment: rare mixed drink PHYSICAL EXAM BP 130/100 Pulse 64 Temp 36.7 ?C (98 ?F) (Temporal Artery) Resp 16 SpO2 99% General Appearance: well appearing, in no acute distress, alert Neck: Thyroid normal size and symmetric without palpable nodules, Neck supple, No adenopathy Lungs: Lungs clear to auscultation. No wheezing, rhonchi, rales Heart: RRR without murmur, gallop, or rubs. No ectopy Lower Extremities: Good capillary refill. Pulses: 2+, Edema: 2+ non-pitting lymphedema to bilateral lower legs. Christine boots removed. Skin with patchy red and brown venous stasis changes. Right lower leg: Two superficial, small open wounds without signs of infection. Left lower leg: Skin intact. ASSESSMENT/PLAN: 1. COPD with exacerbation (HCC) - ICD9: 491.21, ICD10: J44.1 (primary diagnosis) Patient's respiratory status back to baseline Continue with home oxygen and breathing treatments Follow-up with pulmonology as scheduled Follow-up with PCP in one month as scheduled 2. Acute congestive heart failure, unspecified congestive heart failure type (HCC) - ICD9: 428.0, ICD10: I50.9 Leg swelling improved. No weight gain or worsening symptoms Continue with Lasix as prescribed Follow-up as above 3. Lymphedema of both lower extremities - ICD9: 457.1, ICD10: I89.0 Continued need for Christine boots, home health to change. Will send order for continued home health 4. Open wound of right lower extremity without complication, initial encounter - ICD9: 891.0, ICD10: S81.801A Healing well, no signs of infection. No wound treatment/dressings indicated at this time Jennifer Sinclair CNP Prescription instructions reviewed with patient as applicable. Potential red flag symptoms discussed with the patient. Reviewed appropriate action plan to take if red flag symptoms occur. Patient agreeable to treatment plan. Jennifer Sinclair CNP 06/22/2017 1:26 PM Signed Stop Symbicort. Continue with Advair, Spiriva and Ventolin as prescribed. Referring Provider: SELF [[id number]] Allergies As of Date: 06/22/2017 Noted Allergy Reaction LEVAQUIN (LEVOFLOXACIN) 05/13/2007 1 - Mental Status Change NALDECON SENIOR DX (DEXTROMETHORP*02/13/2005 5 - Intolerance NORVASC (AMLODIPINE BESYLATE) 02/13/2005 5 - Intolerance Date Reviewed: 06/22/2017 Reviewed by: Mariah Albert Screw Down - Fully Assessed Reason for Visit: [facility] Follow up [Other] Cmt: COPD exacerbation Primary Visit Diagnosis:COPD with exacerbation (HCC) [J44.1] Other Visit Diagnoses:Acute congestive heart failure, unspecified congestive heart failure type (HCC) [I50.9] Lymphedema of both lower extremities [I89.0] Open wound of right lower extremity without complication, initial encounter [S81.801A] Order(s):[facility] [[id number]] Order #: [id number]: 1 Prescriptions as of 06/22/2017 Sig: CLOPIDOGREL 75 MG TABLET Take 1 tablet by mouth once d* SPIRONOLACTONE 25 MG TABLET TAKE 1 TABLET TWICE DAILY ATORVASTATIN 80 MG TABLET Take 0.5 tablets by mouth onc* METOPROLOL TARTRATE 50 MG TAB* Take 1 tablet by mouth twice * COMPOUNDED PRESCRIPTION NEBULIZER ORAL APPLIANCES AND* OLANZAPINE 2.5 MG TABLET Take 1 tablet by mouth daily * ELIQUIS 5 MG TABLET TAKE 1 TABLET TWICE DAILY ALBUTEROL SULFATE HFA 90 MCG/* Inhale 2 Puffs as instructed * LOSARTAN 100 MG TABLET TAKE 1 TABLET BY MOUTH EVERY * INSULIN GLARGINE 100 UNIT/ML * Inject 60 Units subcutaneousl* FUROSEMIDE 20 MG TABLET Take 1 tablet by mouth every * SERTRALINE 50 MG TABLET Take 1 tablet by mouth every * SERTRALINE 100 MG TABLET Take 1 tablet by mouth once d* FLUTICASONE 250 MCG-SALMETERO* Inhale 1 Puff as instructed t* HYDROXYZINE HCL 25 MG TABLET TAKE 1 TABLET BY MOUTH THREE * CLONIDINE 0.3 MG/24 HR WEEKLY* Apply 1 Patch as directed onc* GLIMEPIRIDE 4 MG TABLET Take 2 tablets by mouth daily* LANSOPRAZOLE 15 MG CAPSULE,DE* Take 1 capsule by mouth once * FUROSEMIDE 40 MG TABLET Take 1 tablet by mouth once d* ALLOPURINOL 300 MG TABLET Take 1 tablet by mouth once d* BLOOD SUGAR DIAGNOSTIC STRIPS Check 4x times a day. Dx: E1* LANCETS Use four times a day Dx: E1* METFORMIN 500 MG TABLET Take 1 tablet by mouth three * TIOTROPIUM BROMIDE 18 MCG CAP* Inhale 1 capsule as instructe* PEN NEEDLE, DIABETIC 31 GAUGE* 1 Each once daily. Dx: 250.00* MAGNESIUM OXIDE 400 MG TABLET Take 2 tablets by mouth twice* IPRATROPIUM-ALBUTEROL 0.5 MG-* Inhale 3 mL as instructed lucille* ACETAMINOPHEN 500 MG TABLET Take 2 tablets by mouth every* TERAZOSIN 10 MG CAPSULE Take 1 capsule by mouth daily* FINASTERIDE 5 MG TABLET Take 1 tablet by mouth once d* FERROUS SULFATE 325 MG (65 MG* Take 1 tablet by mouth once d* ALCOHOL PREP PADS use as directed COMPRESSION STOCKING,KNEE HIG* Sig Varis compression stockin* COLACE 100 MG CAPSULE Take one(1) tablet two(2) tasha* MULTIVITAMIN TABLET Take one(1) tablet daily. Problem List As Of Date 06/22/2017 Noted Resolved Unspecified Essential Hypertension [I10] INVALID FOR*12/12/2009 Esophageal Reflux [K21.9] 12/12/2009 Asthma [J45.909] Hypertension goal BP (blood pressure) < 150/90 * Other and Unspecified Hyperlipidemia [E78.5] 01/10/2010 Priority: A More... DM w/o Complication Type II [E11.9] 12/13/2009 Priority: E Gout, unspecified [M10.9] Obesity, Unspecified [E66.9] 12/13/2009 Priority: I BPH W URINARY OBS/LUTS [N40.1] INVALID FOR* OPEN WOUND KNEE/LEG-COMPL [S81.009A, S81.809A, *INVALID FOR*08/21/2008 Lymphedema of both lower extremities [I89.0] INVALID FOR* Thoracic Aneurysm without Mention of Rupture [I*INVALID FOR*12/13/2009 Priority: A More... ASCVD [I25.10] INVALID FOR* More... Osteoarthritis of knee [M17.10] INVALID FOR* More... GERD [K21.9] More... More... More... More... Atelectasis/pleural effusion [J98.11] INVALID FOR*01/10/2010 Priority: C More... DM type 2, uncontrolled, with neuropathy (HCC) *INVALID FOR* More... CAD (mild per cath) [I25.10] INVALID FOR*03/22/2010 Priority: A More... Oliguria [R34] INVALID FOR*12/13/2009 Priority: C More... Acute Renal Insufficiency [N28.9] INVALID FOR*12/27/2009 Priority: C More... More... A-fib (HCC) [I48.91] INVALID FOR*03/02/2014 ARF (Acute Renal Failure) [N17.9] INVALID FOR*12/18/2009 More... Respiratory Failure, Acute [J96.00] INVALID FOR*12/18/2009 Priority: B More... Leukocytosis [D72.829] INVALID FOR*12/27/2009 Priority: D More... Hypernatremia [E87.0] INVALID FOR*12/27/2009 Priority: C More... H/o Pericardial Effusion (moderate on d/c) [I3*INVALID FOR*01/16/2010 Priority: A More... More... Anemia [D64.9] INVALID FOR*01/10/2010 Priority: B More... More... H/o Fever (upon admission) [R50.9] INVALID FOR*01/12/2010 Priority: C More... Malnutrition [E46] INVALID FOR*01/10/2010 More... Hyperlipidemia with target LDL less than 70 [E7*INVALID FOR* Pleural Effusion/atelectasis [J90] INVALID FOR*04/05/2013 Priority: B More... Gout [M10.9] INVALID FOR*03/22/2010 Priority: D More... Sepsis [A41.9] INVALID FOR*03/22/2010 Priority: C More... Hypokalemia [E87.6] INVALID FOR*03/22/2010 Priority: C More... Renal insufficiency [N28.9] INVALID FOR*03/22/2010 Priority: C More... Ascending aortic aneurysm [I71.2] INVALID FOR*04/05/2013 Dilated aortic root [I77.810] INVALID FOR*04/05/2013 Anemia [D64.9] INVALID FOR* CKD (chronic kidney disease) stage 3, GFR 30-59*INVALID FOR* COPD (chronic obstructive pulmonary disease) [J*INVALID FOR* Status post aortic valve replacement with prost*INVALID FOR* CVA (cerebral vascular accident) (HCC) [I63.9] INVALID FOR*03/02/2014 More... Stasis leg ulcer (HCC) [I83.009, L97.909] INVALID FOR* Pruritic disorder [L29.9] INVALID FOR* MIKO (obstructive sleep apnea) [G47.33] INVALID FOR* Pulmonary embolus (HCC) [I26.99] INVALID FOR* Obsessive-compulsive disorder [F42.9] INVALID FOR* Acute congestive heart failure (HCC) [I50.9] INVALID FOR* Other instructions from your clinician: Stop Symbicort. Continue with Advair, Spiriva and Ventolin as prescribed. Encounter Status:Closed by JENNIFER SINCLAIR CNP on 06/22/17 ALLERGIES ALLERGIES DATE TYPE / NAME / CODE REACTION SEVERITY SOURCE CODE 06/15/2018 Drug naphazoline affected his [place] Allergy/41 HCl/[id number](RXN breathing Community 1137499(SN OR) [facility]) Repository 06/15/2018 Drug amlodipine Other Unknown [place] Allergy/41 besylate/[id number] [facility] 8973698(SN 3(RXNORM) Hospital [facility]) Repository 06/15/2018 Drug dextromethorphan/F Other Unknown [place] Allergy/41 [id number](RXNORM) [facility] 8641641([facility]) Repository 06/15/2018 Drug levofloxacin/F0060 made me [place] Mark Allergy/41 94303(RXNORM) hyperactive Community 1034766([facility]) Repository 05/13/2007 [facility] 3185686( Repository OMED CT[facility] 02/13/2005 DRUG/58474 DEXTROMETHORPHAN-G INTOLERANCE [facility] 1003(SNOME UAIFENESIN [facility]) Repository 02/13/2005 DRUG AMLODIPINE INTOLERANCE [facility]/41 BESYLATE [facility] 1337943( Repository OMED CT) ENCOUNTERS ENCOUNTERS ADMIT/DISCHARGE ACCOUNT ADMITTING ENCOUNTER LOCATION SOURCE NUMBER CLASS 06/16/2018/06/17/19 [id number] Paintsil, [place] Inpatient Mark [place] 19 Encounter [facility] ing:PCURoom: Repository [id number]: 1 06/16/2018 [id number] [place], [place] Ambulatory BMSBuilding:Filippo Flores MS.[facility] Repository 06/16/2018 [id number] [place], [place] Ambulatory BMSBuilding:Filippo Flores MS.[facility] Repository 06/15/2018 [id number] Paintsil, [place] Ambulatory BMSBuilding:Filippo Flores MS.[facility] Repository 05/26/2018/05/26/19 [id number] Ambulatory [address] Repository 05/26/2018/05/28/19 [id number] Ambulatory [address] Repository 05/13/2018 [id number] Ambulatory BMSBuilding:Filippo Flores MS.[facility] Repository 05/13/2018 [id number] Claudioeletsky, Ambulatory BMSBuilding:Filippo Bond MS.[facility] Repository 05/13/2018 [id number] Claudioeletsky, Ambulatory BMSBuilding:Filippo Bond MS.[facility] Repository 05/13/2018 [id number] Claudioeletsky, Ambulatory BMSBuilding:Filippo Bond MS.[facility] Repository 05/13/2018 [id number] Claudiojean marie, Ambulatory BMSBuilding:B [place] Varun [place] [place] 05/13/2018/05/17/20 [id number] Claudiojean marie, Inpatient [place] [address] [facility] ing:PCURoom: Repository [id number]: 1 04/06/2018/04/06/20 [id number] Ambulatory BMSBuilding:B [place] 18 MS.[facility] Repository 03/20/2018/03/20/20 [id number] Ambulatory [address] Repository 03/20/2018/03/20/20 [id number] Ambulatory [address] Repository 03/20/2018/03/20/20 [id number] Ambulatory [address] Repository 02/11/2018/02/18/20 [id number] Ambulatory [address] Repository 02/02/2018/02/03/20 [id number] Emergency [address] ing:ED Repository 02/01/2018 [id number] Ambulatory [facility] ing:EN Repository 01/29/2018 [id number] Ambulatory [facility] ing:EN Repository 01/12/2018/01/13/20 [id number] Ambulatory BMSBuilding:B [place] 18 MS.[facility] Repository 12/29/2017/12/30/19 [id number] Ambulatory BMSBuilding:B [place] 18 MS.[facility] Repository 12/22/2017/12/23/19 [id number] Ambulatory BMSBuilding:B Mark 18 MS.[facility] Repository 12/19/2017/12/20/19 [id number] Emergency [address] ing:ED Repository 12/09/2017/12/15/19 [id number] Agsydbraden, Inpatient [place] 18 [facility] ing:PCURoom: Repository [id number]: 1 12/09/2017/12/15/19 [id number] Ambulatory BMSBuilding:W Mark 18 [facility] Repository 12/09/2017 [id number] Agyepong, Ambulatory BMSBuilding:Filippo Tucker MS.[facility] Repository 12/09/2017 [id number] Agyepong, Ambulatory BMSBuilding:Filippo Tucker MS.[facility] Repository 12/09/2017 [id number] Agyepong, Ambulatory BMSBuilding:Filippo Tucker MS.[facility] Repository 12/09/2017 [id number] Agyepong, Ambulatory BMSBuilding:Filippo Tucker MS.[facility] Repository 12/09/2017 [id number] Agyepong, Ambulatory BMSBuilding:Filippo Tucker MS.[facility] Repository 11/27/2017/11/28/19 [id number] Emergency [address] ing:ED Repository 11/05/2017/11/11/19 [id number] Ambulatory [address] Repository 11/03/2017 [id number] Ambulatory [facility] Repository 10/21/2017/10/22/19 [id number] Ambulatory BMSBuilding:Filippo Hidalgo MS.[facility] Repository 10/09/2017/10/13/19 [id number] Ambulatory [address] Repository 09/30/2017/10/01/19 [id number] Ambulatory BMSBuilding:Filippo Hidalgo MS.[facility] Repository 09/22/2017/09/26/19 [id number] Ambulatory [address] Repository 09/01/2017 [id number] Ambulatory BMSBuilding:Filippo Flores MS.[facility] Repository 08/24/2017/09/13/19 [id number] Teo Barr Chi Inpatient [address] ing:TCURoom: Repository [id number]: 1 08/20/2017/08/25/19 [id number] Ambulatory BMSBuilding:Edwige Flores 18 [facility] Repository 08/20/2017 [id number] White, Mica Ambulatory BMSBuilding:Filippo Flores MS.CF.[facility] Repository 08/20/2017 [id number] White, Mica Ambulatory BMSBuilding:B [place] [facility] Repository 08/20/2017 [id number] White, Mica Ambulatory BMSBuilding:W Mark [facility] Repository 08/20/2017 [id number] White, Mica Ambulatory BMSBuilding:B Mark MS.CF.[facility] Repository 08/20/2017 [id number] White, Mica Ambulatory BMSBuilding:B Mark MS.[facility] Repository 08/20/2017 [id number] White, Ambulatory BMSBuilding:B Mark MS.CF.[facility] Repository 08/20/2017 [id number] White, Ambulatory BMSBuilding:B Mark MS.[facility] Repository 08/20/2017 [id number] White, Ambulatory BMSBuilding:B Mark MS.[facility] Repository 08/20/2017 [id number] White, Ambulatory BMSBuilding:B Mark MS.[facility] Repository 08/20/2017 [id number] White, Ambulatory BMSBuilding:B [place] [facility] Repository 08/20/2017 [id number] White, Ambulatory BMSBuilding:B Mark MS.[facility] Repository 08/20/2017/08/25/19 [id number] White, Inpatient [address] ing:PCURoom: Repository [id number]: 1 08/20/2017 [id number] Ambulatory BMSBuilding:B Mark MS.[facility] Repository 08/20/2017/08/21/19 [id number] Ambulatory BMSBuilding:B [place] 18 MS.[facility] Repository 08/05/2017 [id number] Ambulatory [facility] ing:LAB Repository 08/05/2017/08/06/19 [id number] Ambulatory BMSBuilding:B [place] 18 MS.[facility] Repository 07/30/2017 [id number] Ambulatory [facility] ing:PSN Repository 07/29/2017/07/30/19 [id number] Ambulatory BMSBuilding:B Mark 18 MS.[facility] Repository 07/20/2017/07/24/19 [id number] Ambulatory [address] Repository 06/22/2017/06/22/19 [id number] Ambulatory [address] Repository PAYERS PAYERS ENCOUNTER GUARANTOR PAYER SUBSCRIBER SOURCE 06/16/2018 EVERETT TERRELL012 Primary EVERETT VALDEZ Insurance:MEDICARE RABYDOB: [place] PART A [facility] [id number] [id number]: (330) Number: Repository [phone] () [id number] Date:2018-06-15 06/16/2018 Secondary EVERETT Flores Insurance:ANTHEMPoli RABYDOB: [place] Hospital cy Number: [id number] County General [id number] Repository e Date:4103-92-63QK [address] [place] [address] 24413EK: 06/16/2018 Tertiary NOT GIVENUNK [place] Insurance:SELF PAY [facility] Number: Effective Repository Date:2018-06-15 06/16/2018 EVERETT TURNERY1012 Primary EVERETT VALDEZ Insurance:MEDICARE RAB[place]DOB: [place] [facility] [id number] Hospital 54278Buv: (330) Number: Repository [phone] () [id number] Date:2018-06-15 06/16/2018 Secondary EVERETT Flores Insurance:ANTHEMPoli RABYDOB: [facility] cy Number: [id number] County General [id number] Repository e Date:0264-26-67KS [address]AIDPIGA, [place] [address]KN: 06/16/2018 Tertiary NOT GIVENUNK [place] Insurance:SELF PAY [facility] Number: Effective Repository Date:2018-06-16 06/16/2018 EVERETT TURNERY1012 Primary EVERETT VALDEZ Insurance:MEDICARE [place]DOB: [place] [facility] [id number] Hospital 40576Dtu: (330) Number: Repository [phone] () [id number] Date:2018-06-15 06/16/2018 Secondary EVERETT Flores Insurance:ANTHEMPoli RABYDOB: Community cy Number: [id number] County General [id number] Repository e Date:0880-24-89HS [address] [place] [address] 68953UM: 06/16/2018 Tertiary NOT GIVENUNK [place] Insurance:SELF PAY [facility] Number: Effective Repository Date:2018-06-16 06/15/2018 EVERETT PALMER2 Primary EVERETT VALDEZ Insurance:MEDICARE R[place]DOB: [place] olic [id number] Hospital 83075Wej: (330) Number: Repository [phone] () [id number] Date:2018-06-15 06/15/2018 Secondary EVERETT Singh [place] Insurance:ANTHEMPoli RABYDOB: Community cy Number: [id number] County General [id number] Repository e Date:3463-24-44ZA [address] [place] [address] 89333GN: 06/15/2018 Tertiary NOT GIVENUNK [place] Insurance:SELF PAY [facility] Number: Effective Repository Date:2018-06-15 05/13/2018 EVERETT TERRELL012 Primary EVERETT VALDEZ Insurance:MEDICARE R[place]YDOB: [place] olic [id number] Hospital 92197Seu: (330) Number: Repository [phone] () [id number] Date:2018-05-13 05/13/2018 Secondary EVERETT Flores Insurance:ANTHEMPoli RABYDOB: Community cy Number: [id number] County General [id number] Repository e Date:9788-48-60RG [address]GZMNPNI, [place] [address]EG: 05/13/2018 Tertiary NOT GIVENUNK [place] Insurance:SELF PAY [facility] Number: Effective Repository Date:2018-05-13 05/13/2018 EVERETT TERRELL012 Primary EVERETT VALDEZ Insurance:MEDICARE RABYDOB: [place] olic [id number] Hospital 48203Ozc: (330) Number: Repository [phone] () [id number] Date:2018-05-13 05/13/2018 Secondary EVERETT Flores Insurance:ANTHEMPoli RABYDOB: Community cy Number: [id number] County General [id number] Repository e Date:1046-29-88LX [address] [place] [address] 57061WR: 05/13/2018 Tertiary NOT GIVENUNK [place] Insurance:SELF PAY [facility] Number: Effective Repository Date:2018-05-13 05/13/2018 EVERETT TURNERY1012 Primary EVERETT VALDEZ Insurance:MEDICARE [place]DOB: [place] [facility] [id number] Hospital 55883Xdk: (330) Number: Repository [phone] () [id number] Date:2018-05-13 05/13/2018 Secondary EVERETT Flores Insurance:ANTHEMPoli RABYDOB: Community cy Number: [id number] County General [id number] Repository e Date:7781-93-91BW [address] [place] [address] 43414DP: 05/13/2018 Tertiary NOT GIVENUNK [place] Insurance:SELF PAY [facility] Number: Effective Repository Date:2018-05-13 05/13/2018 EVERETT TURNERY1012 Primary EVERETT VALDEZ Insurance:MEDICARE [place]ABYDOB: [place] olic [id number] Hospital 39316Qoa: (330) Number: Repository [phone] () [id number] Date:2018-05-13 05/13/2018 Secondary EVERETT Singh [place] Insurance:ANTHEMPoli RABYDOB: Community cy Number: [id number] County General [id number] Repository e Date:4994-68-86GR [address] [place] [address] 60928FW: 05/13/2018 Tertiary NOT GIVENUNK [place] Insurance:SELF PAY [facility] Number: Effective Repository Date:2018-05-13 05/13/2018 EVERETT GRIMM Primary EVERETT VALDEZ Insurance:MEDICARE RABYDOB: Community [place] PART A olic [id number] Hospital 69781Lju: (330) Number: Repository [phone] () [id number] Date:2018-05-13 05/13/2018 Secondary EVERETT Singh [place] Insurance:ANTHEMPoli RABYDOB: Community cy Number: [id number] County General [id number] Repository e Date:6799-38-44DY [address] [place] [address] 24571TL: 05/13/2018 Tertiary NOT GIVENUNK [place] Insurance:SELF PAY [facility] Number: Effective Repository Date:2018-05-13 05/13/2018 EVERETT PALMER2 Primary EVERETT VALDEZ Insurance:MEDICARE [place]ABYDOB: [place] [facility] [id number] Hospital 95107Ene: (330) Number: Repository [phone] () [id number] Date:2018-05-13 05/13/2018 Secondary EVERETT Singh [place] Insurance:ANTHEMPoli RABYDOB: Community cy Number: [id number] County General [id number] Repository e Date:9654-70-94NO [address] [place] [address] 57414HG: 05/13/2018 Tertiary NOT GIVENUNK [place] Insurance:SELF PAY [facility] Number: Effective Repository Date:2018-05-13 04/06/2018 EVERETT GRIMM Primary EVERETT VALDEZ Insurance:MEDICARE [place]ABYDOB: [place] [facility] [id number] Hospital 72376Dyj: (330) Number: Repository [phone] () [id number] Date:2017-09-30 04/06/2018 Secondary EVERETT L [place] Insurance:ANTHEMPoli RABYDOB: Community cy Number: [id number] County General [id number] Repository e Date:0267-44-33YJ [address]PQXXFRX, [place] [address]UA: 04/06/2018 Tertiary NOT GIVENUNK [place] Insurance:SELF PAY [facility] Number: Effective Repository Date:2018-04-06 02/02/2018 EVERETT TURNERY1012 Primary EVERETT VALDEZ Insurance:MEDICARE RABYDOB: [place] PART A [facility] [id number] Hospital 40187Dsa: (557) Number: Repository [phone] () [id number] Date:2018-02-02 02/02/2018 Secondary EVERETT Flores Insurance:ANTHEMPoli RABYDOB: Community cy Number: [id number] County General [id number] Repository e Date:3364-26-49IW [address]CJOXUQV, [place] [address]UC: 02/02/2018 Tertiary NOT GIVENUNK [place] Insurance:SELF PAY [facility] Number: Effective Repository Date:2018-02-02 02/01/2018 EVERETT L Primary EVERETT MICHAEL Insurance:MEDICARE RABYDOB: Community [facility] PART A [facility] [id number] [address] E Number: Repository [facility] [id number] [place] Date:2018-01-15 15468Dxe: () 02/01/2018 Secondary EVERETT Flores Insurance:ANTHEMPoli RABYDOB: Community cy Number: [id number] Hospital [id number] Repository e Date:5432-39-47EG [address]SLGCVMK, [place] [address]QI: 02/01/2018 Tertiary NOT GIVENUNK [place] Insurance:SELF PAY [facility] Number: Effective Repository Date:2018-01-15 01/29/2018 EVERETT L Primary EVERETT MICHAEL Insurance:MEDICARE RABYDOB: Community [facility] PART A [facility] [id number] [place] [id number] E Number: Repository [facility] [id number] [place] Date:2017-12-22 35070Ves: () 01/29/2018 Secondary EVERETT L [place] Insurance:ANTHEMPoli RABYDOB: Community cy Number: [id number] County General [id number] Repository e Date:6794-28-03QB [address] [place] [address] 11282MD: 01/29/2018 Tertiary NOT GIVENUNK [place] Insurance:SELF PAY [facility] Number: Effective Repository Date:2017-12-22 01/12/2018 EVERETT L Primary EVERETT GRIGGSITHAYANNA Insurance:MEDICARE RABYDOB: [facility] PART A [facility] [id number] [place] [id number] E Number: Repository [facility] [id number] Date:2017-10-21 94838Daj: () 01/12/2018 Secondary EVERETT L [place] Insurance:ANTHEMPoli RABYDOB: Community cy Number: [id number] County General [id number] Repository e Date:3898-25-86UP [address]OPVOSZO, [place] [address]LG: 01/12/2018 Tertiary NOT GIVENUNK [place] Insurance:SELF PAY [facility] Number: Effective Repository Date:2018-01-05 12/29/2017 EVERETT L GLIE2898 Primary EVERETT Flores [place]AN[place] Insurance:MEDICARE [facility]AB[facility] [place] [facility] [id number] Hospital 18532Emr: (330) Number: Repository [phone] () [id number] Date:2017-12-15 12/29/2017 Secondary EVERETT L [place] Insurance:ANTHEMPoli RABYDOB: Community cy Number: [id number] County General [id number] Repository e Date:9577-56-13FV [address]DDFJVVZ, [place] [address]RR: 12/29/2017 Tertiary NOT GIVENUNK [place] Insurance:SELF PAY [facility] Number: Effective Repository Date:2017-12-22 12/22/2017 EVERETT PALMER2 Primary EVERETT VALDEZ Insurance:MEDICARE RABYDOB: Community [place] PART A [facility] [id number] Hospital 95536Hut: (330) Number: Repository [phone] () [id number] Date:2017-12-15 12/22/2017 Secondary EVERETT Flores Insurance:ANTHEMPoli RABYDOB: Community cy Number: [id number] County General [id number] Repository e Date:6736-17-67PL [address] [place] [address] 66028XN: 12/22/2017 Tertiary NOT GIVENUNK [place] Insurance:SELF PAY [facility] Number: Effective Repository Date:2017-12-15 12/19/2017 EVERETT PALMER2 Primary EVERETT VALDEZ Insurance:MEDICARE [place]ABYDOB: [place] [facility] [id number] Hospital 01479Rfi: (330) Number: Repository [phone] () [id number] Date:2017-12-19 12/19/2017 Secondary EVERETT Flores Insurance:ANTHEMPoli RABYDOB: Community cy Number: [id number] County General [id number] Repository e Date:8895-93-49AA [address]LPLMSNA, [place] [address]BI: 12/19/2017 Tertiary NOT GIVENUNK [place] Insurance:SELF PAY [facility] Number: Effective Repository Date:2017-12-19 12/09/2017 EVERETT PALMER2 Primary EVERETT VALDEZ Insurance:MEDICARE [place]YDOB: [place] [facility] [id number] Hospital 16639Vmt: (330) Number: Repository [phone] () [id number] Date:2017-12-09 12/09/2017 Secondary EVERETT Singh [place] Insurance:ANTHEMPoli RABYDOB: Community cy Number: [id number] [place], [place] [id number] Repository e Date:2454-70-49ZR [address]UDSNREU, [place] [address]SC: 12/09/2017 Tertiary NOT GIVENUNK [place] Insurance:SELF PAY [facility] Number: Effective Repository Date:2017-12-09 12/09/2017 EVERETT PALMER2 Primary EVERETT VALDEZ Insurance:MEDICARE [place]ABYDOB: [place] [facility] [id number] Hospital 07243Tvv: (330) Number: Repository [phone] () [id number] Date:2017-12-09 12/09/2017 Secondary EVERETT Flores Insurance:ANTHEMPoli RABYDOB: Community cy Number: [id number] County General [id number] Repository e Date:0295-50-13YS [address]LLUPXZJ, [place] [address]WM: 12/09/2017 Tertiary NOT GIVENUNK [place] Insurance:SELF PAY [facility] Number: Effective Repository Date:2017-12-09 12/09/2017 EVERETT PALMER2 Primary EVERETT VALDEZ Insurance:MEDICARE [place]YDOB: [place] [facility] [id number] Hospital 18865Vdf: (330) Number: Repository [phone] () [id number] Date:2017-12-09 12/09/2017 Secondary EVERETT Flores Insurance:ANTHEMPoli RABYDOB: Community cy Number: [id number] [place], [place] [id number] Repository e Date:1894-20-60AO [address]LMPFKGC, [place] [address]JR: 12/09/2017 Tertiary NOT GIVENUNK [place] Insurance:SELF PAY [facility] Number: Effective Repository Date:2017-12-09 12/09/2017 EVERETT PALMER2 Primary EVERETT VALDEZ Insurance:MEDICARE [place]DOB: [place] [facility] [id number] Hospital 99491Puo: (330) Number: Repository [phone] () [id number] Date:2017-12-09 12/09/2017 Secondary EVERETT Flores Insurance:ANTHEMPoli RABYDOB: Community cy Number: [id number] County General [id number] Repository e Date:4919-50-13QM [address]TXUB[address] [place] [address]30[address]YA: 12/09/2017 Tertiary NOT GIVENUNK [place] Insurance:SELF PAY [facility] Number: Effective Repository Date:2017-12-09 12/09/2017 EVERETT TURNERY1012 Primary EVERETT Flores [facility] Insurance:MEDICARE RABYDOB: [place] [facility] [id number] Hospital 04984Gcg: (330) Number: Repository [phone] () [id number] Date:2017-12-09 12/09/2017 Secondary EVERETT Flores Insurance:ANTHEMPoli RABYDOB: Community cy Number: [id number] County General [id number] Repository e Date:5710-12-89AO [address]PGIDSJL, [place] [address]DZ: 12/09/2017 Tertiary NOT GIVENUNK [place] Insurance:SELF PAY [facility] Number: Effective Repository Date:2017-12-09 12/09/2017 EVERETT TURNERY1012 Primary EVERETT Flores [facility] Insurance:MEDICARE [place]ABYDOB: [place] [facility] [id number] Hospital 37591Kdg: (330) Number: Repository [phone] () [id number] Date:2017-12-09 12/09/2017 Secondary EVERETT Singh [place] Insurance:ANTHEMPoli RABYDOB: Community cy Number: [id number] County General [id number] Repository e Date:0917-99-46KQ [address]BC[address] [place] [address] 52511ZL: 12/09/2017 Tertiary NOT GIVENUNK [place] Insurance:SELF PAY [facility] Number: Effective Repository Date:2017-12-09 12/09/2017 EVERETT TERRELL012 Primary EVERETT VALDEZ Insurance:MEDICARE [place]ABYDOB: [place] [facility] [id number] Hospital 07663Tku: (330) Number: Repository [phone] () [id number] Date:2017-12-09 12/09/2017 Secondary EVERETT Dianne Mark Insurance:ANTHEMPoli RABYDOB: Community cy Number: [id number] County General [id number] Repository e Date:9567-25-07LT [address] [place] [address] 41784AN: 12/09/2017 Tertiary NOT GIVENUNK [place] Insurance:SELF PAY [facility] Number: Effective Repository Date:2017-12-09 11/27/2017 EVERETT TERRELL012 Primary EVERETT VALDEZ Insurance:MEDICARE RABYDOB: [place] PART A [facility] [id number] Hospital 72124Dnl: (330) Number: Repository [phone] () [id number] Date:2017-11-27 11/27/2017 Secondary EVERETT Singh [place] Insurance:ANTHEMPoli RABYDOB: Community cy Number: [id number] County General [id number] Repository e Date:8996-46-44EB [address] [place] [address] 35555HK: 11/27/2017 Tertiary NOT GIVENUNK [place] Insurance:SELF PAY [facility] Number: Effective Repository Date:2017-11-27 10/21/2017 EVERETT TURNERY1012 Primary EVERETT VALDEZ Insurance:MEDICARE RABYDOB: [place] PART A [facility] [id number] Hospital 39091Iby: (330) Number: Repository [phone] () [id number] Date:2017-10-12 10/21/2017 Secondary EVERETT L Mark Insurance:ANTHEMPoli RABYDOB: Community cy Number: [id number] County General [id number] Repository e Date:5047-15-05SS [address]GVKBF[address] [place] [address] 14868AW: 10/21/2017 Tertiary NOT GIVENUNK [place] Insurance:SELF PAY [facility] Number: Effective Repository Date:2017-10-14 09/30/2017 EVERETT PALMER2 Primary EVERETT VALDEZ Insurance:MEDICARE RABYDOB: [place] PART A [facility] [id number] Hospital 43676Itc: (330) Number: Repository [phone] () [id number] Date:2017-09-03 09/30/2017 Secondary EVERETT Flores Insurance:ANTHEMPoli RABYDOB: Community cy Number: [id number] Hospital [id number] Repository e Date:3954-80-57UR [address] [place] [address] 87590NL: 09/30/2017 Tertiary NOT GIVENUNK [place] Insurance:SELF PAY [facility] Number: Effective Repository Date:2017-09-09 09/01/2017 EVERETT PALMER2 Primary EVERETT VALDEZ Insurance:MEDICARE [place]ABYDOB: [place] [facility] [id number] Hospital 77431Wsm: (330) Number: Repository [phone] () [id number] Date:2017-08-05 09/01/2017 Secondary EVERETT Flores Insurance:ANTHEMPoli RABYDOB: Community cy Number: [id number] Hospital [id number] Repository e Date:5219-63-33GZ [address] [place] [address] 672[address]NT: 09/01/2017 Tertiary NOT GIVENUNK [place] Insurance:SELF PAY [facility] Number: Effective Repository Date:2017-08-05 08/24/2017 EVERETT PALMER2 Primary EVERETT VALDEZ Insurance:MEDICARE [place]ABYDOB: [place] [facility] [id number] Hospital 43605Nye: (330) Number: Repository [phone] () [id number] Date:2017-08-24 08/24/2017 Secondary EVERETT lFores Insurance:ANTHEMPoli RABYDOB: Community cy Number: [id number] County General [id number] Repository e Date:8467-43-22DS [address]XIOIDVM, [place] [address]JU: 08/24/2017 Tertiary NOT GIVENUNK [place] Insurance:SELF PAY [facility]: Effective Repository Date:2017-08-24 08/20/2017 EVERETT PALMER2 Primary EVERETT VALDEZ Insurance:MEDICARE RAB[place]DOB: [place] BPolicy [id number] Hospital 93904Ccr: (330) Number: Repository [phone] () [id number] Date:2017-08-20 08/20/2017 Secondary EVERETT Flores Insurance:ANTHEMPoli RABYDOB: Community cy Number: [id number] County General [id number] Repository e Date:3020-42-09IZ [address]XUPBHTC, [place] [address]NE: 08/20/2017 Tertiary NOT GIVENUNK [place] Insurance:SELF PAY [facility] Number: Effective Repository Date:2017-08-20 08/20/2017 EVERETT PALMER2 Primary EVERETT VALDEZ Insurance:MEDICARE RABYDOB: [place] olicy [id number] Hospital 77445Rbf: (330) Number: Repository [phone] () [id number] Date:2017-08-20 08/20/2017 Secondary EVERETT Flores Insurance:ANTHEMPoli RABYDOB: Community cy Number: [id number] County General [id number] Repository e Date:9025-79-49IZ [address]EPGXZAW, [place] [address]HI: 08/20/2017 Tertiary NOT GIVENUNK [place] Insurance:SELF PAY [facility] Number: Effective Repository Date:2017-08-20 08/20/2017 EVERETT PALMER2 Primary EVERETT VALDEZ Insurance:MEDICARE RABYDOB: [place] [facility] [id number] Hospital 21047Mgm: (330) Number: Repository [phone] () [id number] Date:2017-08-20 08/20/2017 Secondary EVERETT Flores Insurance:ANTHEMPoli RABYDOB: Community cy Number: [id number] County General [id number] Repository e Date:5969-06-29LI [address] [place] [address] 80304ZG: 08/20/2017 Tertiary NOT GIVENUNK [place] Insurance:SELF PAY [facility] Number: Effective Repository Date:2017-08-20 08/20/2017 EVERETT PALMER2 Primary EVERETT VALDEZ Insurance:MEDICARE [place]ABYDOB: [place] [facility] [id number] Hospital 07614Ycd: (330) Number: Repository [phone] () [id number] Date:2017-08-20 08/20/2017 Secondary EVERETT Flores Insurance:ANTHEMPoli RABYDOB: Community cy Number: [id number] County General [id number] Repository e Date:5063-56-44XS [address] [place] [address] 27209KX: 08/20/2017 Tertiary NOT GIVENUNK [place] Insurance:SELF PAY [facility] Number: Effective Repository Date:2017-08-20 08/20/2017 EVERETT TERRELL012 Primary EVERETT VALDEZ Insurance:MEDICARE [place]ABYDOB: [place] [facility] [id number] Hospital 92874Nlj: (330) Number: Repository [phone] () [id number] Date:2017-08-20 08/20/2017 Secondary EVERETT Flores Insurance:ANTHEMPoli RABYDOB: Community cy Number: [id number] County General [id number] Repository e Date:1646-42-66ZG [address] [place] [address] 825[address]KP: 08/20/2017 Tertiary NOT GIVENUNK [place] Insurance:SELF PAY Community [facility] Number: Effective Repository Date:2017-08-20 08/20/2017 EVERETT PALMER2 Primary EVERETT VALDEZ Insurance:MEDICARE [place]YDOB: [place] [facility] [id number] Hospital 88097Xid: (330) Number: Repository [phone] () [id number] Date:2017-08-20 08/20/2017 Secondary EVERETT Flores Insurance:ANTHEMPoli RABYDOB: Community cy Number: [id number] County General [id number] Repository e Date:4747-25-85TG [address]JSQEIOC[address] [place] [address] 12402VS: 08/20/2017 Tertiary NOT GIVENUNK [place] Insurance:SELF PAY [facility] Number: Effective Repository Date:2017-08-20 08/20/2017 EVERETT PALMER2 Primary EVERETT VALDEZ Insurance:MEDICARE RABYDOB: [place] [facility] [id number] [place] [id number]: (330) Number: Repository [phone] () [id number] Date:2017-08-20 08/20/2017 Secondary EVERETT Flores Insurance:ANTHEMPoli RABYDOB: Community cy Number: [id number] County General [id number] Repository e Date:5304-16-01YG [address]WUJOQOY, [place] [address]ZU: 08/20/2017 Tertiary NOT GIVENUNK Mark Insurance:SELF PAY [facility] Number: Effective Repository Date:2017-08-20 08/20/2017 EVERETT PALMER2 Primary EVERETT VALDEZ Insurance:MEDICARE [place]YDOB: [place] [facility] [id number] Hospital 46476Wsa: (330) Number: Repository [phone] () [id number] Date:2017-08-20 08/20/2017 Secondary EVERETT Singh [place] Insurance:ANTHEMPoli RABYDOB: Community cy Number: [id number] [place], [place] [id number] Repository e Date:3390-24-60EH [address]XZALONL, [place] [address]XM: 08/20/2017 Tertiary NOT GIVENUNK [place] Insurance:SELF PAY [facility] Number: Effective Repository Date:2017-08-20 08/20/2017 EVERETT PALMER2 Primary EVERETT VLADEZ Insurance:MEDICARE RABYDOB: [place] [facility] [id number] Hospital 80522Bxg: (330) Number: Repository [phone] ) [id number] Date:2017-08-20 08/20/2017 Secondary EVERETT Flores Insurance:ANTHEMPoli RABYDOB: [facility] cy Number: [id number] [facility] [id number] Repository e Date:[id number], [place] [address]WT: 08/20/2017 Tertiary NOT GIVENUNK [place] Insurance:SELF PAY [facility] Number: Effective Repository Date:2017-08-20 08/20/2017 EVERETT TERRELL012 Primary EVERETT VALDEZ Insurance:MEDICARE RABYDOB: [place] PART A [facility] [id number] [id number]: (330) Number: Repository [phone] () [id number] Date:2017-08-20 08/20/2017 Secondary EVERETT Flores Insurance:ANTHEMPoli RABYDOB: Community cy Number: [id number] County General [id number] Repository e Date:[id number], [place] [address]KT: 08/20/2017 Tertiary NOT GIVENUNK [place] Insurance:SELF PAY [facility] Number: Effective Repository Date:2017-08-20 08/20/2017 EVERETT PALMER2 Primary EVERETT VALDEZ Insurance:MEDICARE RABYDOB: [place] PART A [facility] [id number] [address]Miy: (330) Number: Repository [phone] () [id number] Date:2017-08-20 08/20/2017 Secondary EVERETT Flores Insurance:ANTHEMPoli RABYDOB: Community cy Number: [id number] County General [id number] Repository e Date:[id number], [place] [address]HB: 08/20/2017 Tertiary NOT GIVENUNK [place] Insurance:SELF PAY [facility] Number: Effective Repository Date:2017-08-20 08/20/2017 EVERETT TURNERY1012 Primary EVERETT Flores [facility] Insurance:MEDICARE RABYDOB: [place] PART [place] [facility] [id number] Hospital [address]Zkj: (330) Number: Repository [phone] () [id number] Date:2017-08-20 08/20/2017 Secondary EVERETT Flores Insurance:ANTHEMPoli RABYDOB: Community cy Number: [id number] County General [id number] Repository e Date:[id number], [place] [address]SZ: 08/20/2017 Tertiary NOT GIVENUNK [place] Insurance:SELF PAY [facility] Number: Effective Repository Date:2017-08-20 08/20/2017 EVERETT TURNERY1012 Primary EVERETT Flores [facility] Insurance:MEDICARE RABYDOB: [place] [facility] [id number] Hospital [address]Tuj: (330) Number: Repository [phone] () [id number] Date:2017-08-20 08/20/2017 Secondary EVERETT Singh [place] Insurance:ANTHEMPoli RABYDOB: Community cy Number: [id number] County General [id number] Repository e Date:[id number], [place] [address]DC: 08/20/2017 Tertiary NOT GIVENUNK [place] Insurance:SELF PAY [facility] Number: Effective Repository Date:2017-08-20 08/20/2017 EVERETT TURNERY1012 Primary EVERETT VALDEZ Insurance:MEDICARE RABYDOB: [place] [facility] [id number] Hospital [address]Kco: (330) Number: Repository [phone] () [id number] Date:2017-08-20 08/20/2017 Secondary EVERETT Flores Insurance:ANTHEMPoli RABYDOB: Community cy Number: [id number] County General [id number] Repository e Date:[id number] [address] [place] [address]ED: 08/20/2017 Tertiary NOT GIVENUNK [place] Insurance:SELF PAY [facility] Number: Effective Repository Date:2017-08-20 08/20/2017 EVERETT TURNERY1012 Primary EVERETT VALDEZ Insurance:MEDICARE [place]ABYDOB: [place] PART [place] [facility] [id number] Hospital [address]Wok: (330) Number: Repository [phone] () [id number] Date:2017-08-05 08/20/2017 Secondary EVERETT Flores Insurance:ANTHEMPoli RABYDOB: Community cy Number: [id number] County General [id number] Repository e Date:[id number] [address] [place] [address]DD: 08/20/2017 Tertiary NOT GIVENUNK [place] Insurance:SELF PAY [facility] Number: Effective Repository Date:2017-08-18 08/05/2017 EVERETT TURNERY1012 Primary EVERETT VALDEZ Insurance:MEDICARE RABYDOB: [place] [facility] [id number] Hospital [address]Omm: (330) Number: Repository [phone] () [id number] Date:2017-08-05 08/05/2017 Secondary EVERETT L [place] Insurance:ANTHEMPoli RABYDOB: Community cy Number: [id number] County General [id number] Repository e Date:[id number] [address] [place] [address]AY: 08/05/2017 Tertiary NOT GIVENUNK [place] Insurance:SELF PAY [facility] Number: Effective Repository Date:2017-08-05 08/05/2017 EVERETT PALMER2 Primary EVERETT VALDEZ Insurance:MEDICARE RABYDOB: Community [facility] PART A [facility] [id number] Hospital [address]Krw: (330) Number: Repository [phone] () [id number] Date:2017-07-29 08/05/2017 Secondary EVERETT L [place] Insurance:ANTHEMPoli RABYDOB: Community cy Number: [id number] County General [id number] Repository e Date:[id number] [id number] [place] [address]ZO: 08/05/2017 Tertiary NOT GIVENUNK [place] Insurance:SELF PAY [facility] Number: Effective Repository Date:2017-07-29 07/30/2017 EVERETT PALMER2 Primary EVERETT VALDEZ Insurance:MEDICARE RABYDOB: Community [facility] PART A [facility] [id number] Hospital [address]Lnn: (330) Number: Repository [phone] () [id number] Date:2007-12-24 07/30/2017 Secondary EVERETT Dianne [place] Insurance:ANTHEMPoli RABYDOB: Community cy Number: [id number] County General [id number] Repository e Date:[id number] [id number] [place] [address]FG: 07/30/2017 Tertiary NOT GIVENUNK [place] Insurance:SELF PAY [facility] Number: Effective Repository Date:2017-03-18 07/29/2017 EVERETT PALMER2 Primary EVERETT VALDEZ Insurance:MEDICARE RABYDOB: [place] [facility] [place] [facility] [id number] Hospital [address]Kun: (330) Number: Repository [phone] () [id number] Date:2017-04-28 07/29/2017 Secondary EVERETT L [place] Insurance:Dave LUCIANOOB: Community Number: [id number] Hospital [id number] Repository e Date:[id number], [place] [address]NF: 07/29/2017 Tertiary NOT GIVENJESSICA [place] Insurance:SELF PAY [facility] Number: Effective Repository Date:2017-04-28
== END 2018-06-17 18:23 | disposition home or self-care (01) | DRG 637 ==
LOC: ED 10:32 → PCU 11:14
PROVIDERS: Admitting Provider Internal Medicine; Emergency Provider Emergency Medicine; Family Provider Internal Medicine; PCP Internal Medicine; Visit Provider Internal Medicine
DX: E11.649 Type 2 diabetes mellitus with hypoglycemia without coma (principal); G93.41 Metabolic encephalopathy; E87.1 Hypo-osmolality and hyponatremia; Z68.43 Body mass index [BMI] 50.0-59.9, adult; I50.32 Chronic diastolic (congestive) heart failure; J96.12 Chronic respiratory failure with hypercapnia; J96.11 Chronic respiratory failure with hypoxia; E86.0 Dehydration; E66.01 Morbid (severe) obesity due to excess calories; D64.9 Anemia, unspecified; E78.5 Hyperlipidemia, unspecified; G47.33 Obstructive sleep apnea (adult) (pediatric); I87.2 Venous insufficiency (chronic) (peripheral); I27.20 Pulmonary hypertension, unspecified; E11.40 Type 2 diabetes mellitus with diabetic neuropathy, unspecified; Z99.81 Dependence on supplemental oxygen; I13.10 Hypertensive heart and chronic kidney disease without heart failure, with stage 1 through stage 4 chronic kidney disease, or unspecified chronic kidney disease; E11.22 Type 2 diabetes mellitus with diabetic chronic kidney disease; Z79.4 Long term (current) use of insulin; N18.2 Chronic kidney disease, stage 2 (mild); Z87.891 Personal history of nicotine dependence; S00.83XA Contusion of other part of head, initial encounter
CPT/HCPCS: 36415; 36600; 51702; 70450; 80048; 82803; 82962; 83036; 83605; 84484; 85025; 85610; 85730; 86850; 86900; 86920; 86922; 93005; 94002; 94003; 94640; 97161; 97165; 99285; J7030; J7040; P9016; P9040; A4216; J1610; J1940

== ENCOUNTER 2018-06-21 18:19 | Outpatient (RCR) | payer MEDICARE, BC, SELFPAY ==
[2018-06-15 11:48] VITALS: BMI 51.2
[2018-06-21 18:39] LABS: Anion Gap 7 (5-15); BUN 68 mg/dL (7-18); BUN/Creat Ratio 37.8 RATIO (10-20); Calcium,Total 8.4 mg/dL (8.5-10.1); Chloride 91 mmol/L (98-107); EST Glomerular Filtration Rate 39 mL/min (>60); Est Glom Filt Rate - Afr Amer 48 mL/min (>60); Glucose 177 mg/dL (74-106); Sodium Level 126 mmol/L (136-145)
== END 2018-06-24 23:59 ==
LOC: HHLAB 18:19
PROVIDERS: Family Provider Internal Medicine; PCP Internal Medicine; Visit Provider Internal Medicine
DX: N18.3 Chronic kidney disease, stage 3 (moderate) (principal)
CPT/HCPCS: 80048

== ENCOUNTER 2018-07-28 06:34 | Day surgery (SDC) | payer MEDICARE, BC, SELFPAY ==
[2018-07-01 15:24] VITALS: BMI 51.2
[2018-07-28] VITALS (7 sets, daily range): BP systolic 151–187; BP diastolic 70–84; PULSE 71–77; RESP 16–17; TEMP 36.2–36.4; O2SAT 99–100; BMI 50.5
[2018-07-28 07:11] LABS: Bedside Glucose 71 mg/dL (70-110)
--- NOTE | 2018-07-28 07:30 | IMM_PTH ---
PATIENT: KELLEE IYER LOC: [facility] U#:[id number] AGE/SX: 73/M ROOM: RE07/28/[address]: Dr. Brice Garcia MD : 1945 BED: DIS: 07/28/2018 SPEC #: [id number] RECD: 07/28/18 13:56 STATUS: GAY REJames #: [id number] FREDI: 07/28/18 07:[address]: Brice Garcia DEPT: IMMUNOHISTOCHEMISTRY RECD BY: Bushra Chan ENTERED: 07/28/18 13:57 SP TYPE: IMMUNO OTHR DR: Dr. Jack Verdugo MD Tissues: Stomach, NOS Procedures: H Pylori (initial) PHYSICIAN & INSTITUTION [place] [address] SPECIMEN INFORMATION: Tissue Source: Antral biopsy Clinical Info: Anemia, screening Specimen Number: [id number] CPT code: 90903 METHODOLOGY: Deparaffinized sections of prefer/formalin-fixed tissue or PAP/DQ stained slides are incubated with monoclonal/polyclonal antibodies/oligonucleotide probes. Localization is made via biotin free immunoperoxidase method. Appropriate controls are performed and reacted as expected. Results on target cell population are indicated in the following table: RESULTS: ANTIBODY / CLONE RESULT H Pylori (polyclonal) negative These tests were developed and their performance characteristics determined by [facility]. They may not have been cleared or approved by the U.S. Food and Drug Administration. The FDA has determined that such clearance or approval is not necessary. INTERPRETATION: Antral biopsy: Negative for Helicobacter pylori organisms. AM:[place] 07/29/18
--- NOTE | 2018-07-28 07:30 | EGD_PTH ---
PATIENT: KELLEE IYER LOC: EN U#:[id number] AGE/SX: 73/M ROOM: RE07/28/[address]: Dr. Brice Garcia MD : 1945 BED: DIS: 07/28/2018 SPEC #: [id number] RECD: 07/28/18 10:26 STATUS: GAY BRYAN #: [id number] FREDI: 07/28/18 07:[address]: Brice Garcia DEPT: SURGICAL PATHOLOGY RECD BY: Thaddeus Desai ENTERED: 07/28/18 12:53 SP TYPE: EGD BIOPSY OTHR DR: Dr. Jack Verudgo MD Tissues: Gastric mucous membrane Procedures: Surgery Specimen Level IV HEADER OPERATION: Colonoscopy, EGD ([facility]) PRE-OP DIAGNOSIS: Anemia, screening TISSUE SUBMITTED: Antral biopsy and H. pylori MICROSCOPIC DIAGNOSIS Gastric antrum, biopsy: Mild chronic gastritis. See comment. AM:aurora 07/29/18 COMMENT The results of immunohistochemistry for Helicobacter pylori will be reported separately ([id number]). MICROSCOPIC DESCRIPTION Slides are reviewed. GROSS DESCRIPTION Received in fixative is one container labeled with the patient's name and designated antral biopsy. The specimen consists of one irregular fragment of light malagon soft tissue that measures 0.6 x 0.3 x 0.1 cm. The specimen is totally submitted in one cassette. / AM:aurora 07/28/18 TC:3 CPT: 49210
--- NOTE | 2018-07-28 07:56 | OP.ENDO_ITS ---
07/28/2018 Jack Verdugo [address] [place] [address] Re : Upper GI endoscopy procedure for Everett Leal Dear Dr. Verdugo This procedure was performed on Saturday, July 28, 2018. My impressions and recommendations are as follows: Impressions : - Normal esophagus. - Z-line regular, 46 cm from the incisors. - Normal examined duodenum. Biopsied. - Normal examined duodenum. No specimens collected. Recommendations : - Discharge patient to home. - Resume previous diet. - Continue present medications. - Await pathology results. - Repeat upper endoscopy is not recommended. - Return to my office in 1 week. My findings are described in the full procedure note, which is enclosed. If I can be of further assistance, please feel free to contact me at Doctor phone number(s): , Fax: [phone], Work: . Sincerely, MD Brice Santizo MD 07/28/2018 7:55:41 AM This report has been signed electronically.
--- NOTE | 2018-07-28 08:00 | OP.ENDO_ITS ---
07/28/2018 Jack Verdugo [address] [place] [address] Re : Colonoscopy procedure for Everett Leal Dear Dr. Verdugo This procedure was performed on Saturday, July 28, 2018. My impressions and recommendations are as follows: Impressions : - The procedure was aborted due to inadequate bowel prep. - Stool in the entire examined colon. - No specimens collected. Recommendations : - Discharge patient to home. - Resume previous diet. - Continue present medications. - Perform an air contrast barium enema today. - No recommendation at this time regarding repeat colonoscopy. My findings are described in the full procedure note, which is enclosed. If I can be of further assistance, please feel free to contact me at Doctor phone number(s): , Fax: [phone], Work: . Sincerely, MD Brice Santizo MD 07/28/2018 8:00:11 AM This report has been signed electronically.
== END 2018-07-28 09:30 | disposition home or self-care (01) ==
LOC: EN 06:37 → AC 06:37
PROVIDERS: Family Provider Internal Medicine; PCP Internal Medicine; Referring Provider Internal Medicine; Visit Provider Surgery
PROC: 0DJD8ZZ Inspection of Lower Intestinal Tract, Via Natural or Artificial Opening Endoscopic (ICD-10-PCS; CPT 45378; principal; 2018-07-28 07:25)
DX: Z12.11 Encounter for screening for malignant neoplasm of colon (principal); D50.9 Iron deficiency anemia, unspecified; Z53.8 Procedure and treatment not carried out for other reasons; I13.0 Hypertensive heart and chronic kidney disease with heart failure and stage 1 through stage 4 chronic kidney disease, or unspecified chronic kidney disease; I50.33 Acute on chronic diastolic (congestive) heart failure; N18.2 Chronic kidney disease, stage 2 (mild); E11.22 Type 2 diabetes mellitus with diabetic chronic kidney disease; E11.40 Type 2 diabetes mellitus with diabetic neuropathy, unspecified; I27.20 Pulmonary hypertension, unspecified; I25.10 Atherosclerotic heart disease of native coronary artery without angina pectoris; J44.9 Chronic obstructive pulmonary disease, unspecified; I27.82 Chronic pulmonary embolism; E78.5 Hyperlipidemia, unspecified; G47.33 Obstructive sleep apnea (adult) (pediatric); K21.9 Gastro-esophageal reflux disease without esophagitis; N40.0 Benign prostatic hyperplasia without lower urinary tract symptoms; F32.9 Major depressive disorder, single episode, unspecified; E66.01 Morbid (severe) obesity due to excess calories; Z68.43 Body mass index [BMI] 50.0-59.9, adult; Z79.899 Other long term (current) drug therapy; Z79.84 Long term (current) use of oral hypoglycemic drugs; Z79.02 Long term (current) use of antithrombotics/antiplatelets; Z87.891 Personal history of nicotine dependence; Z86.73 Personal history of transient ischemic attack (TIA), and cerebral infarction without residual deficits
CPT/HCPCS: 43239; G0104; 82962; 88305; 88342; J7120; J2405

== ENCOUNTER 2018-12-07 18:25 | Inpatient (IN) | payer MEDICARE, BC, SELFPAY ==
[2018-10-19 14:52] VITALS: BMI 51.8
[2018-12-07 18:27] VITALS: BP 186/72; PULSE 86; RESP 26; TEMP 37.3; O2SAT 98; BMI 54.6
[2018-12-07 18:32] VITALS: BP 169/77; PULSE 86; RESP 24; O2SAT 97
--- NOTE | 2018-12-07 19:58 | EKG12_ITS ---
Test Reason : SOB Blood Pressure : / mmHG Vent. Rate : 103 BPM Atrial Rate : 102 BPM P-R Int : 000 ms QRS Dur : 106 ms QT Int : 364 ms P-R-T Axes : 000 007 115 degrees QTc Int : 476 ms Atrial fibrillation with rapid ventricular response Nonspecific T wave abnormality Abnormal ECG Confirmed by DOMITILA LOGAN, NAHOMI ([id number]), tape editor DANIELA GUTIÉRREZ ([id number]) on 12/09/2018 1:32:49 PM Referred By: Garrett Whitley Confirmed By:NAHOMI RAMESH MD
--- NOTE | 2018-12-07 19:59 | ED.RN ---
PT WAS INCONTINENT OF URINE AND AUDRA GARZA,LOS, WAS CHANGING SHEETS AND PLACING AN ATTENDS UNDER PT, PTS PULSE OX DROPPED TO 87% ON 3LNC. PT WAS REPOSITIONED AND HOB WAS ELEVATED PT STRUGGLED TO CATCH HIS BREATH. PT WAS HYPERVENTILATING AND STATED I CAN'T BREATHE, I CAN'T BREATHE PT'S OXYGEN WAS INCREASED TO 4LNC AND PULSE OX CONTINUED AT 87%. PT MINUTES LATER WAS ON O24LNC AND PULSE OF 95-97%. OXYGEN WAS THEN PLACED BACK TO 3LNC AND PULSE OX IS 97%.
--- NOTE | 2018-12-07 20:00 | RAD_ITS ---
STUDY: X-RAY - LEFT KNEE REASON FOR EXAM: Male, 73 years old. Knee pain TECHNIQUE: AP and lateral view(s) of the knee. COMPARISON: None. FINDINGS: There is tricompartmental joint space narrowing. There are tricompartmental osteophytes. There is mild soft tissue edema.. There are no fractures. RAD/Knee 1 or 2 Views IMPRESSION: Significant tricompartmental osteoarthrosis No acute fractures Soft tissue edema Electronically Signed: Azael Hyde, at 20:34 EDT Tel , Service support ,
--- NOTE | 2018-12-07 20:01 | ED.VISSUMM ---
- ER Visit Summary Date of Service: 12/07/18 Chief Complaint: Generalized weakness History of Present Illness: The patient is a 73 M presenting with generalized weakness. He also complains of shortness of breath which has been ongoing for several days. He has a history of COPD. Today he was on the toilet and unable to get off the toilet. EMS was called. states this happens frequently when he is unable to get up off the toilet. He generally declines transport to the hospital. He denies lightheadedness or syncope. He states he felt too weak to stand. He complains of left knee pain which is chronic. He is chronically on home O2 3 L. He denies chest pain. Denies fever. He has had a productive cough. He denies abdominal pain. He has a history of lymphedema and frequently picks at his lower extremities and has worsening wounds to both legs. Denies other complaints. Physical Examination: Vitals are stable. Patient is afebrile. Alert no acute distress. HEENT exam is unremarkable. Neck is supple. Lungs are expiratory wheezing bilaterally. Heart is irregularly irregular Abdomen is soft obese nontender nondistended. Extremities lymphedema with anterior wounds bilateral lower extremity Skin is warm and dry. No focal neurologic deficit. Remainder of exam is unremarkable. Emergency Department Course and Treatment: EKG is A. fib with rate of 103. Per patient and family no history of A. fib. CBC normal except for hemoglobin 6.7, previous range from 6.6-8.9. Chemistry showed glucose 160. Troponin 0.016. Patient was given albuterol. Chest x-ray shows stable cardiomegaly. Likely mild pulmonary venous congestion. Persistent right basilar density most likely consolidation versus atelectasis. Underlying postobstructive mass cannot be excluded. CT chest follow-up is recommended. Left knee x-ray shows significant tricompartmental osteoarthrosis. No acute fractures. Soft tissue edema. Patient is agreeable to admission and he will likely require placement. Discussed with the hospitalist for admission. Disposition: Admission Impression: New onset A. fib, generalized weakness, anemia This note was generated with [employer] dictation software. It may contain incorrect words, spelling, and punctuation that were not noted in review of the chart prior to signing ED Disposition - Plan for ED Patient:
[2018-12-07 20:04] VITALS: O2SAT 97
--- NOTE | 2018-12-07 20:07 | RAD_ITS ---
STUDY: X-RAY CHEST REASON FOR EXAM: Male, 73 years old. Short of breath TECHNIQUE: AP portable chest COMPARISON: Trauma/ FINDINGS: There are sternal wires. There is stable cardiomegaly. There are bilateral pulmonary opacities and pleural effusions.. There is persistent right basilar density . Normal mediastinum and radha. Normal visualized pulmonary arteries. Normal visualized aortic arch and descending thoracic aorta. Normal visualized thoracic spine. Normal visualized ribs, clavicles, and shoulders. There is no demonstrated abnormality of the visualized soft tissue structures of the upper abdomen. RAD/Chest 1 View (Portable) IMPRESSION: Stable cardiomegaly Likely mild pulmonary venous congestion Persistent right basilar density most likely consolidation versus atelectasis. Underlying postobstructive mass cannot be excluded. CT chest follow-up is recommended Electronically Signed: Azael Hyde, at 20:30 EDT Tel , Service support ,
[2018-12-07] MEDS: Albuterol 2.5 MG/3 ML VIAL.NEB. INHALATION ×3 (20:27→20:28)
[2018-12-07 20:29] VITALS: PULSE 98; RESP 22
[2018-12-07 20:33] LABS: Absolute Lymphocyte Count 0.62 X10^3/uL (0.83-4.51); Basophil# 0.04 X10^3/uL; Basophil% 0.5 % (0-1); Eosinophil# 0.22 X10^3/uL; Eosinophils% 2.9 % (0-5); Hematocrit 23.5 % (40-54); Lymphocyte # 0.62 X10^3/ul (4.0); Lymphocyte % 8.1 % (19-41); Mean Corp Hgb Conc 28.5 g/dL (32-36); Mean Corpuscular Hgb 23.8 pg (27.0-32.0); Mean Corpuscular Volume 83.3 fL (80-94); Mean Platelet Vol. 8.6 fl (6.2-12.0); Monocyte# 0.75 X10^3/uL; Monocyte% 9.8 % (0-10); NRBC Flagged by Analyzer 0 % (0-5); Neutrophil # 5.98 X10^3/uL (2.7-7.7); Neutrophil % 77.8 % (47-70); Platelet Count 286 K/mm3 (150-450); RBC Distribution Width CV 14.6 % (11.6-14.6); RBC Distribution Width SD 44.4 fl (35.1-43.9); Red Blood Count 2.82 M/mm3 (4.6-6.2); White Blood Count 7.7 K/mm3 (4.4-11.0)
--- NOTE | 2018-12-07 20:34 | CM.ED ---
Social Work Referral: Discharge Planning/Resources Informant: Self referral Met with patient and patient spouse, Naty in room. Naty stating that things are not going well at home. Patient smiling at this social work supervisor and stating that things are fine. Naty stating that patient has not been taking medication or checking blood sugar. Patient reporting to check blood sugar some but does report to not be checking blood sugar. Patient reporting to know and understand why it is important to take medications and check blood sugar with being diagnosed with diabetes. Patient stating to not want to do anything and to spend time sitting in chair at home. Naty stating that patient only gets up from chair for bowel movements and uses urinal the rest of the time. Naty stating to be concerned about patient and to not be sure how to help patient. Naty current walks with a walker and is unable to assist patient within the home with mobility. Patient daughter stating that patient may be [facility] and that the [facility] assist with [facility]. Patient daughter also stating that patient has been non compliant with doctor appointments and confirming that patient has not been taking medications. This social work supervisor inquiring as to the last time patient was able to sponge bath/take a bath. Patient reporting it has been 2-3 weeks since patient bathed. Patient spouse stating it has been at least a month since patient bathed. This social work supervisor did attempt to speak with patient alone, family re-entered the room and nursing staff needed to complete further assessments. Patient family wanting to look into placement for patient as patient has not been able to meet own needs at home. Collaborating with Dr. Morgan. Patient to have a clinical work up in the ED with tentative plan for transfer to hospital obs. vs. admit. Social work to continue to follow on acute. Azul WILLOUGHBY, AMY
[2018-12-07 20:39] LABS: Hemoglobin 6.7 g/dL (13.0-16.5)
--- NOTE | 2018-12-07 20:39 | ED.RN ---
DR KATZ NOTIFIED OF HGB RESULTS
[2018-12-07 20:47] LABS: Anion Gap 0 (5-15); BUN 11 mg/dL (7-18); BUN/Creat Ratio 11.2 RATIO (10-20); Calcium,Total 8.4 mg/dL (8.5-10.1); Chloride 99 mmol/L (98-107); Creatinine, Serum 0.98 mg/dL (0.70-1.30); EST Glomerular Filtration Rate 79 mL/min (>60); Est Glom Filt Rate - Afr Amer 95 mL/min (>60); Estimated Creatinine Clearance 63.01 ml/min; Glucose 160 mg/dL (74-106); Potassium 3.8 mmol/L (3.5-5.1); Sodium Level 137 mmol/L (136-145)
[2018-12-07 20:56] LABS: Lactic Acid 0.8 mmol/L (0.4-2.0)
[2018-12-07 21:35] VITALS: BP 158/52; RESP 20; O2SAT 96
[2018-12-07 22:00] VITALS: BP 170/68; PULSE 103; RESP 22; O2SAT 99
[2018-12-07 22:15] LABS: Mucous, Urine 0 SEEN /hpf (<or=2+); Squamous Epithelial Cells - UA 0 SEEN /hpf (0-5)
[2018-12-07 22:32] LABS: Color, Urine Yellow (Yellow); Glucose, Dipstick Normal (Normal); Ketone-Dipstick Negative (Negative); Leukocyte Esterase-Dipstick 500 /ul (Negative); Nitrite-Dipstick Positive (Negative); Occult Blood-Urine 250 /ul (Negative); Protein-Dipstick 100 mg/dl (Negative); Urine Bilirubin Dipstick Negative (Negative); Urine Clarity Sl. Cloudy (Clear); Urine Urobilinogen Normal (Normal)
--- NOTE | 2018-12-07 22:37 | HP.PCM_ITS ---
Problem List (1) COPD with exacerbation Status: Chronic (2) New onset a-fib Status: Acute (3) Pickwickian syndrome Status: Chronic History of Present Illness Date of Admission: 12/07/18 Chief Complaint: weakness The patient is a 73 year old M with a significant history of lymphedema of bilateral legs; hyperlipidemia; chronic diastolic heart failure; thoracic aneurysm status post repair; chronic respiratory failure with hypoxia and hypercapnia; super morbid obesity who presented to the emergency department with weakness. Patient's was unable to get up from the commode because of weakness. The squad was called who came to help the patient. Patient reported that he could not get up because of his knees gives up on him. Reportedly he has called the paramedics to help him get up multiple times. Also patient has shortness of breath that has been going on for about a week. His family report that patient has been having a rattling sound coming from his airways. He reports wheezing. At the emergency department patient was found to have A. fib with a rate of around 103. Patient was given albuterol inhalation for 20 minutes at the emergency department. Past Medical History Past Medical History (Chronic Problems): Chronic Problems (Last Reviewed 12/08/18 @ 02:08 by Garrett Whitley MD) COPD with exacerbation (Chronic) Pickwickian syndrome (Chronic) Chronic respiratory failure with hypoxia and hypercapnia (Chronic) Essential (primary) hypertension (Chronic) Chronic diastolic heart failure (Chronic) Thoracic aortic aneurysm without rupture (Chronic) Status post ascending and proximal arch aneurysm replaced with a Hemashield graft and shayan-arch repair; Hyperlipidemia (Chronic) Lymphedema of leg (Chronic) Medical History: Medical History (Last Reviewed 12/08/18 @ 03:44 by Garrett Whitley MD) Chronic respiratory failure with hypoxia and hypercapnia (Chronic) J96.11, J96.12 Essential (primary) hypertension (Chronic) I10 Chronic diastolic heart failure (Chronic) I50.32 Thoracic aortic aneurysm without rupture (Chronic) I71.2 Status post ascending and proximal arch aneurysm replaced with a Hemashield graft and shayan-arch repair; Hyperlipidemia (Chronic) E78.5 Lymphedema of leg (Chronic) I89.0 BPH w/o urinary obs/LUTS N40.0 COPD (chronic obstructive pulmonary disease) J44.9 Chronic anemia D64.9 Chronic kidney disease, stage 2 (mild) N18.2 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 GERD (gastroesophageal reflux disease) K21.9 History of pulmonary embolism Z86.711 Iron deficiency anemia D50.9 Lymphedema I89.0 Morbid obesity E66.01 Obstructive sleep apnea G47.33 Osteoarthritis M19.90 Tinea unguium B35.1 Ulcer of left lower extremity with fat layer exposed L97.922 Ulcer of right lower extremity with fat layer exposed L97.912 Venous insufficiency I87.2 Ventral hernia K43.9 Acute on chronic respiratory failure with hypoxia and hypercapnia (Resolved) J96.21, J96.22 Acute on chronic respiratory failure with hypoxia and hypercapnia J96.21, J96.22 Adynamic ileus K56.0 CAP (community acquired pneumonia) (Resolved) J18.9 The patient appropriately completed antibiotics and prednisone as prescribed. He has no further signs and symptoms of persistent pneumonia. No indication for any further testing at this time. Patient will be eligible for Pneumovax 23 in approximately 6 months. He states that his PCP is very good at keeping track of his immunizations and when they are due. CHF exacerbation (Resolved) I50.9 Hypoglycemia (Resolved) E16.2 Pulmonary embolism on right (Resolved) I26.99 Tobacco abuse (Resolved) Z72.0 Wheezing (Resolved) R06.2 Edema of both legs (Inactive) R60.0 Immobility (Inactive) Z74.09 Leg swelling (Inactive) M79.89 Multiple excoriations (Inactive) T14.8 Nausea and vomiting (Inactive) R11.2 Tinea unguium (Inactive) B35.1 Allergies naphazoline HCl [From Naphcon] Allergy (Severe, Verified 10/19/18 12:54) affected his breathing AFFECTED HIS BREATHING amlodipine besylate [From Norvasc] Allergy (Verified 10/19/18 12:54) Other dextromethorphan Allergy (Verified 10/19/18 12:54) Other levofloxacin [From Levaquin] Adverse Reaction (Mild, Verified 10/19/18 12:54) made me hyperactive made me hyperactive Home Medications: Ambulatory Orders Medication Instructions Recorded Albuterol Inhaler [Ventolin Hfa] 2 puff INHALATION Q6H PRN PRN 06/15/18 Allopurinol [Zyloprim] 300 mg PO DAILY 06/15/18 Clopidogrel Bisulfate [Plavix] 75 mg PO DAILY 06/15/18 Ferrous Sulfate 325 mg PO DAILY 06/15/18 Finasteride [Proscar] 5 mg PO DAILY 06/15/18 Fluticasone/Salmeterol [Advair 1 ea IH BID 06/15/18 500-50 Diskus] Loratadine [Claritin] 10 mg PO DAILY 06/15/18 Magnesium 250 mg PO BID 06/15/18 Metolazone [Zaroxolyn] 2.5 mg PO DAILY 06/15/18 Metoprolol Tartrate [Lopressor 50 mg PO BID 06/15/18 (beta maryam)] Multivitamin,Therapeutic [Thera] 1 ea PO DAILY 06/15/18 Sertraline HCl [Zoloft] 100 mg PO DAILY 06/15/18 Spironolactone [Aldactone] 25 mg PO BID 06/15/18 Acetaminophen [Tylenol Tablet] 650 mg PO Q6H PRN PRN tab 06/17/18 tiotropium bromide 2.5 2 puff INHALATION DAILY 08/30/18 mcg/actuation mist for inhalation budesonide-formoterol HFA 160 2 puff INHALATION BID #10.2 g 11/01/18 mcg-4.5 mcg/actuation aerosol inhaler Atorvastatin Calcium 40 mg PO QHS 12/07/18 Glimepiride 8 mg PO DAILY 12/07/18 Insulin Glargine,Hum.rec.anlog 30 unit SQ QHS 12/07/18 [Basaglar Kwikpen U-100] Lansoprazole 15 mg PO DAILY 12/07/18 Losartan Potassium 100 mg PO DAILY 12/07/18 Terazosin HCl 10 mg PO QHS 12/07/18 Surgical History: Surgical History (Last Reviewed 12/08/18 @ 03:44 by Garrett Whitley MD) History of repair of thoracic aortic aneurysm (Resolved) Onset Date: 12/11/09 Z98.890, Z86.79 H/O aortic valve replacement (Resolved) Onset Date: 12/11/09 Z95.2 # 29 Freestyle valve H/O hernia repair Z98.890, Z87.19 Surgical History: - - He has a bioprosthetic aortic valve replacement, abdominal aortic aneurysm repair '05, recent surgery to repair a large ventral hernia. Psychiatric History: Anxiety, Depression Lives: Spouse/ Significant Other Smoking Status: Former smoker - *Family History Maternal Family History: Family History (Last Reviewed 12/08/18 @ 03:44 by Garrett Whitley MD) Brother TBI (traumatic brain injury) Sister Ulcerative colitis History Items: Hypertension, - - Patient's father at the age of 94 from old age. Patient's mother at age of 87 with a history of hyperlipidemia and hypertension. Paternal Family History: Family History (Last Reviewed 12/08/18 @ 03:44 by Garrett Whitley MD) Brother TBI (traumatic brain injury) Sister Ulcerative colitis History Items: Hypertension Review of Systems Constitutional: Reports: Weakness. Denies: Chills, Fever, Weight Change HEENT: Denies: Head Aches, Sinus Congestion, Sinus Drainage Cardiovascular: Denies: Chest Pain, Palpitations Respiratory: Reports: Cough, Shortness of Breath, Sputum production, Wheezing. Denies: Shortness of breath at rest Gastrointestinal: Denies: Abdominal Pain, Nausea, Vomiting Genitourinary: Denies: Dysuria Musculoskeletal: Denies: Joint Pain, Joint Tenderness Skin: Denies: Rash, Wounds Neurological: Denies: Numbness, Tingling, Focal weakness Psychiatric: Denies: Anxiety, Depression, Homicidal Ideations, Suicidal Ideations Hematologic/ Lymphatic: Denies: Easy Bruising, Easy Bleeding VTE Information - Inpt Only VTE Present on Admission: No VTE Mechan Device Prophylaxis: SCD's VTE Pharm Prophylaxis ordered?: No Patient Problems: Active and Suspected Problems (Last Reviewed 12/08/18 @ 02:08 by Garrett Whitley MD) New onset a-fib (Acute) - Physical Exam General: Alert, Oriented x3, Cooperative, - - Super morbid obesity HEENT: Atraumatic, PERRLA, EOMI, Normocephalic Neck: Supple, No JVD, Negative Carotid Bruits Lungs: Tachypneic, Wheezes Cardiovascular: No murmurs, Irregular Rate Abdomen: Bowel Sounds Present, Soft, Non Tender Extremities: Edema - bilateral legs Skin: - - bilateral leg wounds Musculoskeletal: No Tenderness to Palpation of Joints or Extremities Neurological: Cranial nerves II-XII grossly intact Psych/Mental Status: Normal Affect, Appropriate Vital Signs Temp Pulse Resp BP Pulse Ox 99.1 F 103 H 22 H 170/68 H 99 12/07/18 18:27 07/16/19 22:00 12/07/18 22:00 12/07/18 22:00 12/07/18 22:00 Oxygen Flow Rate (L/min) 3 Oxygen Delivery Method Nasal Cannula Weight: 163.021 kg Body Mass Index (BMI) 54.6 Finger Stick Blood Glucose 171 Laboratory Tests Past 24 Hrs 12/07/18 12/07/18 12/07/18 20:20 20:20 20:20 WBC 7.7 RBC 2.82 L Hgb 6.7 L Hct 23.5 L MCV 83.3 MCH 23.8 L MCHC 28.5 L RDW Std Deviation 44.4 H RDW Coeff of El 14.6 Plt Count 286 MPV 8.6 Immature Gran % (Auto) 0.900 Neut % (Auto) 77.8 H Lymph % (Auto) 8.1 L [place] % (Auto) 9.8 Eos % (Auto) 2.9 Baso % (Auto) 0.5 Absolute Neuts (auto) 6.0 Absolute Lymphs (auto) 0.62 L Absolute Nucleated RBC 0.00 Nucleated RBC % 0 Diff Path Review May foll Sodium 137 Potassium 3.8 Chloride 99 Carbon Dioxide 38.0 H Anion Gap 0 L BUN 11 Creatinine 0.98 Estim Creat Clear Calc 63.01 Est GFR (MDRD) Af Amer 95 Est GFR (MDRD) Non-Af 79 BUN/Creatinine Ratio 11.2 Glucose 160 H Lactic Acid 0.8 Calcium 8.4 L Troponin I 0.016 Urine Color Urine Clarity Urine pH Ur Specific [place] Urine Protein Urine Glucose (UA) Urine Ketones Urine Occult Blood Urine Nitrite Urine Bilirubin Urine Urobilinogen Ur Leukocyte Esterase Urine RBC Urine WBC Ur Squamous Epith Cells Urine Bacteria Urine Mucus 12/07/18 22:10 WBC RBC Hgb Hct MCV MCH MCHC RDW Std Deviation RDW Coeff of [place] Plt Count MPV Immature Gran % (Auto) Neut % (Auto) Lymph % (Auto) [place] % (Auto) Eos % (Auto) Baso % (Auto) Absolute Neuts (auto) Absolute Lymphs (auto) Absolute Nucleated RBC Nucleated RBC % Diff Path Review Sodium Potassium Chloride Carbon Dioxide Anion Gap BUN Creatinine Estim Creat Clear Calc Est GFR (MDRD) Af Amer Est GFR (MDRD) Non-Af BUN/Creatinine Ratio Glucose Lactic Acid Calcium Troponin I Urine Color Yellow Urine Clarity Sl. Cloudy Urine pH 7.0 Ur Specific [place] 1.010 Urine Protein 100 H Urine Glucose (UA) Normal Urine Ketones Negative Urine Occult Blood 250 H Urine Nitrite Positive H Urine Bilirubin Negative Urine Urobilinogen Normal Ur Leukocyte Esterase 500 H Urine RBC Pending Urine WBC Pending Ur Squamous Epith Cells Pending Urine Bacteria Pending Urine Mucus Pending Assessment/Plan All Active Problems (Last Reviewed 12/08/18 @ 02:08 by Garrett Whitley MD) New onset a-fib (Acute) History of repair of thoracic aortic aneurysm (Resolved 12/11/09) H/O aortic valve replacement (Resolved 12/11/09) Acute on chronic respiratory failure with hypoxia and hypercapnia (Resolved) Bilateral lower leg cellulitis (Resolved) CAP (community acquired pneumonia) (Resolved) CHF exacerbation (Resolved) Hyperkalemia (Resolved) Hypoglycemia (Resolved) Hypoglycemia (Resolved) Hypomagnesemia (Resolved) Hyponatremia (Resolved) Pulmonary embolism on right (Resolved) Shortness of breath (Resolved) Tobacco abuse (Resolved) Wheezing (Resolved) The patient is a 73 year old M with a significant history of lymphedema of bilateral legs; hyperlipidemia; chronic diastolic heart failure; thoracic aneurysm status post repair; chronic respiratory failure with hypoxia and hypercapnia; super morbid obesity who presented to the emergency department with weakness to the extent he could get up from the commode; shortness of breath; wheezes and was found to be in new onset atrial fibrillation. New onset atrial fibrillation EKG showed atrial fibrillation. On the monitor at the emergency department patient was noted to have atrial fibrillation; multifocal atrial tachycardia and PACs. Cannot rule out viral syndrome triggering atrial fibrillation. Admitted to PCU on telemetry Obtain echo Anticoagulation was not started because of anemia Appears rate controlled most of time so will not initiate rate controlling medication at this time. His potassium level was 3.8. Will give 20 mEq of potassium. Magnesium level obtain as 1.7. Will give 2 g of magnesium. Chest x-ray: Was interpreted as stable cardiomegaly. Likely mild pulmonary venous congestion. Persistent right basilar density most likely consolidation versus atelectasis. Postoperative mass cannot be excluded. CT chest follow-up is recommended. Chest x-ray was independently reviewed and agree with radiologist interpretation. Of note patient has no fever of leukocytosis making pneumonia less likely. TSH was unremarkable. COPD exacerbation Patient noted to be wheezing on examination. Will give a one-time dose of Solu- medrol 125 mg and start patient on scheduled Solu-Medrol. We will obtain respiratory pathogen panel. CT chest ordered per radiologist recommendation of not been able to rule out post obstructive mass. Scheduled DuoNeb and as needed albuterol ordered. On home Advair. Held since patient has been started on DuoNeb and has been placed on systemic steroids. Mucinex ordered. Oxygen as needed. Chest physiotherapy ordered. Of note his shortness of breath could also could be exacerbated by Pickwickian syndrome. Mild pulmonary venous congestion; Continue home diuretics. Bilateral lymphedema with chronic wounds Juan wrap ordered. Continue home diuretics of metolazone and Aldactone. Anemia On presentation her hemoglobin was 6.7. Review of old records show that patient has chronic anemia with a hemoglobin typically around 7.0 to 8.9. Family is unsure whether patient has had an endoscopic study to evaluate his anemia since patient was considered high risk in the past. Stool for occult blood ordered. We will start patient on IV Protonix for now. We will hold off further anemia work-up since anemia is not very different from his baseline. Patient's PCP is Dr. Verdugo ([facility]). Consider checking with PCP whether patient has had any previous work-up for his anemia; and whether patient has had colonoscopy or EGD in the past since patient is unsure. Adult Failure to thrive Unable to get up and move around. Likely secondary to his super morbid obesity. PT and OT consulted. Case management consult for discharge planning. Hypertension On presentation his blood pressure was not within goal Metoprolol; Aldactone; losartan; and metolazone continued. Trend blood pressure and adjust blood pressure medication Diabetes mellitus On presentation his blood was elevated but it was within hospital goal. Glimepiride and basal insulin continued. DVT prophylaxis No chemical thromboprophylaxis at this time because of anemia SCD ordered. Code Visit Inpatient E&M: 16193 Init Hosp L3
[2018-12-07 22:43] LABS: Bacteria 1+ /hpf (None Seen); White Blood Cells 5-10 SEEN /hpf (0-5)
[2018-12-07 22:44] LABS: Red Blood Cells-Urine 5-10 SEEN /hpf (0-5)
[2018-12-07 22:45] LABS: Yeast-Urine RARE /hpf (None Seen)
[2018-12-08] VITALS (30 sets, daily range): BP systolic 116–158; BP diastolic 47–77; PULSE 54–99; RESP 12–28; TEMP 36.4–37.4; O2SAT 90–99; BMI 53.9; BMI 54.0
--- NOTE | 2018-12-08 00:09 | ECHOCS_ITS ---
Reason For Study: AFIB Procedure This was a 2D Doppler, Color Flow transthoracic echocardiogram. The exam was of poor technical quality due to body habitus.. Pt was unable to tolerate apical probe pressure and did not want to continue. Limited information/images. Exam performed portable in patient room. Left Ventricle Normal LV size. Left ventricular systolic function is normal. The estimated ejection fraction is 55 %. No regional wall motion abnormalities noted. Right Ventricle Normal RV size. Normal systolic function. Atria Normal left atrium. Normal right atrium. Mitral Valve Mitral valve not well visualized. Tricuspid Valve The tricuspid valve is not well visualized. Aortic Valve The aortic valve is not well visualized. Pulmonic Valve The pulmonic valve is not well visualized. Great Vessels Normal aortic root. The pulmonary artery is normal size. Normal inferior vena cava. Pericardium/Pleural No pericardial effusion. Medication Diluted definity 3.5ml given slow IV push to enhance endocardial definition. MMode/2D Measurements & Calculations LVIDd: 5.1 cm IVSd: 1.4 cm LVIDs: 3.4 cm LVPWd: 1.1 cm LVAd ap4: 44.6 cm2 FS: 32.5 % EDV(MOD-sp4): 185.1 ml EDV(sp4-el): 185.6 ml LVAs ap4: 26.5 cm2 ESV(MOD-sp4): 76.6 ml ESV(sp4-el): 77.5 ml EF(MOD-sp4): 58.6 % EF(sp4-el): 58.3 % SV(MOD-sp4): 108.4 ml SV(sp4-el): 108.2 ml Time Measurements MV dec time: 0.18 sec Doppler Measurements & Calculations MV E max brandon: 109.5 cm/sec Lat Peak E' Brandon: 7.1 cm/sec Med Peak E' Brandon: 4.8 cm/sec MV A max brandon: 84.6 cm/sec E/E' lat: 15.4 E/E' med: 22.9 MV E/A: 1.3 Ao V2 max: 147.3 cm/sec PA V2 max: 77.8 cm/sec TR max brandon: 344.0 cm/sec Ao max P.7 mmHg TR max P.3 mmHg Interpretation Summary Normal LV size. Left ventricular systolic function is normal. The estimated ejection fraction is 55 %. No regional wall motion abnormalities noted. Contrast injection was performed. Ordering Physician: Bella^^^ Referring Physician: Jack Verdugo M.D. Performed By: Gilma Etienne, EPHRAIMCS, RVT
[2018-12-08 00:51] LABS: Magnesium 1.7 mg/dL (1.6-2.6); Thyroid Stim Hormone (TSH) 1.89 uIU/mL (0.358-3.74)
[2018-12-08 00:51] LABS: Bedside Glucose 166 mg/dL (70-110)
[2018-12-08] MEDS: Ipratropium/Albuterol Sulfate 3 ML AMPUL.NEB INHALATION ×4 (01:16→20:46)
[2018-12-08] MEDS: MethylPREDNISolone 125 MG/2 ML Vial IV (01:26)
--- NOTE | 2018-12-08 01:42 | CT_ITS ---
STUDY: CT CHEST WITH CONTRAST REASON FOR EXAM: Male, 73 years old. Right basilar density. RADIATION DOSAGE (If Supplied By Facility): CTDIvol = ( 16.73 ) mGy, DLP = ( 746.77 ) mGycm TECHNIQUE: Transaxial imaging was performed following intravenous administration of 100ml IV Isovue 300. Multiplanar coronal and sagittal images were reformatted. Individualized dose optimization techniques were used for this CT. COMPARISON: Comparison is made with prior chest radiograph dated December 07, 2018. Comparison is also made to prior CT scan of the thorax dated August 20, 2017. FINDINGS: There is a small right pleural effusion with further consolidation in the right lower lobe. Mild degree of the left pleural effusion with thick calcified pleural plaques. There is no demonstrated pleural abnormality. There is mild cardiac enlargement. There are calcifications of the coronary arteries. There are multiple small lymph nodes within the mediastinum, which are normal in size and morphology most compatible with reactive lymph hyperplasia. Normal hilar regions. Normal enhanced pulmonary arteries. There is atherosclerotic calcification of the aortic arch with tortuosity and elongation of the aortic arch and descending thoracic aorta. There are multi-level degenerative changes of the thoracic spine. Once again, there is herniation of the stomach in the midline epigastric region with the neck of the hernia measuring 7.[address]/Chest WITH Contrast IMPRESSION: Small right pleural effusion with underlying infiltration. Radiographic follow-up is recommended. Electronically Signed: Gab Ruth, at 9:19 EDT , Service support ,
[2018-12-08 06:42] LABS: Hematocrit 23.5 % (40-54); Hemoglobin 6.8 g/dL (13.0-16.5)
[2018-12-08] MEDS: Glimepiride 4 MG Tablet 8 MG PO (09:04)
[2018-12-08] MEDS: Ferrous Sulfate 325 MG Tablet PO (09:04)
[2018-12-08] MEDS: Allopurinol 300 MG Tablet PO (09:04)
[2018-12-08] MEDS: Spironolactone 25 MG Tablet PO ×2 (09:05→22:18)
[2018-12-08] MEDS: Metoprolol Tartrate 50 MG Tablet PO ×2 (09:05→22:17)
[2018-12-08] MEDS: Magnesium Oxide 400 MG Tablet 200 MG PO ×2 (09:05→22:18)
[2018-12-08] MEDS: Losartan Potassium 100 MG Tablet PO (09:05)
[2018-12-08] MEDS: Loratadine 10 MG Tablet PO (09:05)
[2018-12-08] MEDS: Metolazone 2.5 MG Tablet PO (09:06)
[2018-12-08] MEDS: guaiFENesin 1,200 MG Tablet 1200 MG PO (09:06)
[2018-12-08] MEDS: Finasteride 5 MG Tablet PO (09:06)
[2018-12-08] MEDS: Sertraline 100 MG Tablet PO (09:06)
--- NOTE | 2018-12-08 10:08 | EKG12_ITS ---
Test Reason : RHYTHM CHANGE Blood Pressure : / mmHG Vent. Rate : 082 BPM Atrial Rate : 082 BPM P-R Int : 164 ms QRS Dur : 110 ms QT Int : 416 ms P-R-T Axes : 037 -04 000 degrees QTc Int : 486 ms Sinus rhythm with Premature supraventricular complexes Prolonged QT Abnormal ECG When compared with ECG of 07-DEC-2018 20:14, MANUAL COMPARISON REQUIRED, DATA IS UNCONFIRMED Confirmed by ANTONIO LOGAN, KATIA ([id number]), food editor KENDRICK SHORT ([id number]) on 12/10/2018 2:16:38 PM Referred By: Garrett Whitley Confirmed By:OBED ALVAREZ MD
[2018-12-08 10:20] LABS: Iron 12 ug/dL (65-175); Iron Binding Capacity,Total 210 ug/dL (250-450); PERCENT IRON SATURATION 5.7 % (15.0-55.0)
[2018-12-08] MEDS: Albuterol 2.5 MG/3 ML VIAL.NEB. INHALATION (10:20)
[2018-12-08 14:02] LABS: Pathologist Review Reviewed
--- NOTE | 2018-12-08 14:28 | CASEMGMT ---
BISI went to talk with patient regarding discharge plan. Patient was coughing a lot almost non stop. He asked for his nurse. BISI turned on his call light and notified POURED CONCRETE WALL TECHNICIAN who notified RN. BISI will check back with patient again later today or tomorrow. Brooke REYES MSW
--- NOTE | 2018-12-08 15:30 | CASEMGMT ---
Addendum entered by Brooke Ortega 12/08/18 15:48: SW spoke with patient's as she was leaving. SW let her know SW has not heard back yet from TCU regarding bed availability. She said she does not think he will go anywhere. SW told her SW will talk with patient and see what we can work out. Brooke WILLOUGHBY Original Note: SW went back to talk with patient and his and sister were present. Discussed d/c plan and patient felt he was fine at home. His and sister spoke up and said he is too much care for her right now. Discussed SNF options and he agreed to go to TCU if they have a bed. SW told them SW will check on this and if TCU does not have a bed they will need to think of another facility they would be willing to try. BISI called [facility] and referral phone and left messages on both with referral. Brooke REYES MSW
--- NOTE | 2018-12-08 16:19 | PN_ITS ---
Patient Problems: Active and Suspected Problems (Last Reviewed 12/08/18 @ 03:44 by Garrett Whitley MD) New onset a-fib (Acute) Subjective: Patient was seen and examined today, he remains in sinus rhythm with frequent PACs. I talked to the patient about discharge planning, patient would like to go home after hospitalization-his came in today and talk with dialysis social worker and stated that she was unable to take care of him at home she needed him to go to a skilled facility for short-term rehab. I gave the patient an extra unit of packed red blood cells today, patient's serum iron was low at 12, he received an IV infusion of Venofer also. I am not sure what is causing the patient's anemia. Patient's chest CT showed a small right pleural effusion with underlying infiltration in the right lower lobe. I do not feel that this is an area of pneumonia, it may be atelectasis. Patient will continue on aerosol treatments. - Physical Exam General: Alert, Oriented x3, Cooperative, No apparent distress, Well developed HEENT: Atraumatic, PERRLA, EOMI, Normocephalic Oral: Moist Mucosa Neck: Supple, No JVD, Trachea Midline, Thyroid Normal Size and Texture Lungs: Clear to auscultation, Normal air movement, No rhonchi, No wheeze, No rales Cardiovascular: Regular rate, Regular Rhythm, Normal S1, Normal S2, No murmurs, PMI Normal, No rub noted Abdomen: Bowel Sounds Present, Soft, Non Tender, Non-Distended, Obese Extremities: Capillary Refill Less than 3 Seconds, Edema - Generalized lower leg edema is noted bilaterally Skin: No rashes, No breakdown Musculoskeletal: No Tenderness to Palpation of Joints or Extremities Neurological: Cranial nerves II-XII grossly intact, Neuro grossly intact, Sensory exam intact to light touch and pain Psych/Mental Status: Normal Affect, Appropriate, Alert and oriented to time, place, person, mood and affect Vital Signs Temp Pulse Resp BP Pulse Ox 98.0 F 78 18 151/70 H 96 12/08/18 15:57 12/08/18 15:57 12/08/18 15:57 12/08/18 15:57 12/08/18 15:57 Oxygen Flow Rate (L/min) 3 Oxygen Delivery Method Nasal Cannula Weight: 161 kg Body Mass Index (BMI) 53.9 Finger Stick Blood Glucose 171 Intake and Output for Last 24 Hours 12/06/18 12/07/18 12/08/18 23:59 23:59 23:59 Intake Total 1290 / 1290 Output Total 350 / 350 Balance 940 / 940 Microbiology Past 72 Hours 12/08/18 01:25 Respiratory Panel (PCR) - Final Mucosa - Nasopharyngeal Laboratory Tests Past 24 Hrs 12/07/18 12/07/18 12/07/18 20:20 20:20 20:20 WBC 7.7 RBC 2.82 L Hgb 6.7 L Hct 23.5 L MCV 83.3 MCH 23.8 L MCHC 28.5 L RDW Std Deviation 44.4 H RDW Coeff of El 14.6 Plt Count 286 MPV 8.6 Immature Gran % (Auto) 0.900 Neut % (Auto) 77.8 H Lymph % (Auto) 8.1 L Robertson % (Auto) 9.8 Eos % (Auto) 2.9 Baso % (Auto) 0.5 Absolute Neuts (auto) 6.0 Absolute Lymphs (auto) 0.62 L Absolute Nucleated RBC 0.00 Nucleated RBC % 0 Diff Path Review Reviewed Sodium 137 Potassium 3.8 Chloride 99 Carbon Dioxide 38.0 H Anion Gap 0 L BUN 11 Creatinine 0.98 Estim Creat Clear Calc 63.01 Est GFR (MDRD) Af Amer 95 Est GFR (MDRD) Non-Af 79 BUN/Creatinine Ratio 11.2 Glucose 160 H Lactic Acid 0.8 Calcium 8.4 L Magnesium Iron TIBC Iron Saturation Troponin I 0.016 TSH Urine Color Urine Clarity Urine pH Ur Specific [place] Urine Protein Urine Glucose (UA) Urine Ketones Urine Occult Blood Urine Nitrite Urine Bilirubin Urine Urobilinogen Ur Leukocyte Esterase Urine RBC Urine WBC Ur Squamous Epith Cells Urine Bacteria Urine Mucus Urine Yeast Blood Type Antibody Screen Crossmatch 12/07/18 12/07/18 12/07/18 20:20 22:10 22:50 WBC RBC Hgb Hct MCV MCH MCHC RDW Std Deviation RDW Coeff of El Plt Count MPV Immature Gran % (Auto) Neut % (Auto) Lymph % (Auto) Robertson % (Auto) Eos % (Auto) Baso % (Auto) Absolute Neuts (auto) Absolute Lymphs (auto) Absolute Nucleated RBC Nucleated RBC % Diff Path Review Sodium Potassium Chloride Carbon Dioxide Anion Gap BUN Creatinine Estim Creat Clear Calc Est GFR (MDRD) Af Amer Est GFR (MDRD) Non-Af BUN/Creatinine Ratio Glucose Lactic Acid Calcium Magnesium 1.7 Iron TIBC Iron Saturation Troponin I TSH 1.89 Urine Color Yellow Urine Clarity Sl. Cloudy Urine pH 7.0 Ur Specific [place] 1.010 Urine Protein 100 H Urine Glucose (UA) Normal Urine Ketones Negative Urine Occult Blood 250 H Urine Nitrite Positive H Urine Bilirubin Negative Urine Urobilinogen Normal Ur Leukocyte Esterase 500 H Urine RBC 5-10 SEEN Urine WBC 5-10 SEEN Ur Squamous Epith Cells 0 SEEN Urine Bacteria 1+ Urine Mucus 0 SEEN Urine Yeast RARE Blood Type A POSITIVE Antibody Screen NEGATIVE Crossmatch See Detail 12/07/18 12/08/18 12/08/18 22:50 06:30 06:30 WBC RBC Hgb 6.8 L Hct 23.5 L MCV MCH MCHC RDW Std Deviation RDW Coeff of El Plt Count MPV Immature Gran % (Auto) Neut % (Auto) Lymph % (Auto) Robertson % (Auto) Eos % (Auto) Baso % (Auto) Absolute Neuts (auto) Absolute Lymphs (auto) Absolute Nucleated RBC Nucleated RBC % Diff Path Review Sodium Potassium Chloride Carbon Dioxide Anion Gap BUN Creatinine Estim Creat Clear Calc Est GFR (MDRD) Af Amer Est GFR (MDRD) Non-Af BUN/Creatinine Ratio Glucose Lactic Acid Calcium Magnesium Iron 12 L TIBC 210 L Iron Saturation 5.7 L Troponin I TSH Urine Color Urine Clarity Urine pH Ur Specific [place] Urine Protein Urine Glucose (UA) Urine Ketones Urine Occult Blood Urine Nitrite Urine Bilirubin Urine Urobilinogen Ur Leukocyte Esterase Urine RBC Urine WBC Ur Squamous Epith Cells Urine Bacteria Urine Mucus Urine Yeast Blood Type Antibody Screen Crossmatch See Detail POC Glucose 12/08/18 00:42 POC Glucose 166 H Medical Necessity - Tobacco Use Smoking Status: Former smoker Assessment/Plan All Active Problems (Last Reviewed 12/08/18 @ 03:44 by Garrett Whitley MD) New onset a-fib (Acute) History of repair of thoracic aortic aneurysm (Resolved 12/11/09) H/O aortic valve replacement (Resolved 12/11/09) Acute on chronic respiratory failure with hypoxia and hypercapnia (Resolved) Bilateral lower leg cellulitis (Resolved) CAP (community acquired pneumonia) (Resolved) CHF exacerbation (Resolved) Hyperkalemia (Resolved) Hypoglycemia (Resolved) Hypoglycemia (Resolved) Hypomagnesemia (Resolved) Hyponatremia (Resolved) Pulmonary embolism on right (Resolved) Shortness of breath (Resolved) Tobacco abuse (Resolved) Wheezing (Resolved) #1 new onset atrial fibrillation-converted to sinus rhythm at this time, continue to observe, I do not feel the patient is a candidate for full anticoagulation due to his unexplained anemia #2 iron deficiency anemia-etiology unclear, possibly secondary to occult blood loss versus nutritional, patient will be given IV Venofer, he will be transfused a total of 2 units packed red blood cells, recheck CBC tomorrow #3 COPD exacerbation-continue Solu-Medrol and aerosol treatments #4 generalized weakness-secondary to iron deficiency anemia, COPD, and generalized debility-PT and OT will see the patient, he will need temporary placement in a long-term facility. #5 type 2 diabetes-blood sugar will be monitored #6 morbid obesity-complicates care and recovery. #7 chronic hypoxic respiratory failure-monitor pulse ox #8 essential hypertension #9 chronic diastolic congestive heart failure-continue present medications Code Visit Inpatient E&M: 68614 Subs Hosp L2
--- NOTE | 2018-12-08 17:23 | NURSING ---
This RN taking over care at this time
[2018-12-08] MEDS: Insulin Lispro 100 UNIT/ML INSULN.PEN SC (22:17)
[2018-12-08] MEDS: Doxazosin 4 MG Tablet 8 MG PO (22:17)
[2018-12-08] MEDS: Atorvastatin Calcium 40 MG Tablet PO (22:18)
[2018-12-08] MEDS: Nystatin Powder 15gm Bottle 1 APPLIC TOPICAL (22:19)
[2018-12-08 23:06] LABS: Bedside Glucose 278 mg/dL (70-110)
[2018-12-09] VITALS (25 sets, daily range): BP systolic 116–145; BP diastolic 50–81; PULSE 55–84; RESP 12–28; TEMP 36.7–37; O2SAT 92–98
[2018-12-09] MEDS: Insulin Lispro 100 UNIT/ML INSULN.PEN SC ×4 (06:30→22:23)
[2018-12-09 06:55] LABS: Bedside Glucose 208 mg/dL (70-110)
[2018-12-09] MEDS: Ipratropium/Albuterol Sulfate 3 ML AMPUL.NEB INHALATION ×3 (07:12→19:25)
[2018-12-09 08:15] LABS: Absolute Lymphocyte Count 0.46 X10^3/uL (0.83-4.51); Absolute Nucleated RBC Count 0.02 10^3/uL (0-5); Hematocrit 25.3 % (40-54); Hemoglobin 7.5 g/dL (13.0-16.5); Lymphocyte # 0.46 X10^3/ul (4.0); Lymphocyte % 6.9 % (19-41); Mean Corp Hgb Conc 29.6 g/dL (32-36); Mean Corpuscular Volume 81.1 fL (80-94); Mean Platelet Vol. 9.6 fl (6.2-12.0); Monocyte# 0.38 X10^3/uL; Monocyte% 5.7 % (0-10); NRBC Flagged by Analyzer 0.3 % (0-5); Neutrophil # 5.78 X10^3/uL (2.7-7.7); Neutrophil % 86.2 % (47-70); POSITIVE DIFFERENTIAL YES; Platelet Count 314 K/mm3 (150-450); RBC Distribution Width CV 15.5 % (11.6-14.6); RBC Distribution Width SD 45.8 fl (35.1-43.9); Red Blood Count 3.12 M/mm3 (4.6-6.2); White Blood Count 6.7 K/mm3 (4.4-11.0)
[2018-12-09 08:37] LABS: Differential Indicated SCAN CRITERIA MET
[2018-12-09] MEDS: Ferrous Sulfate 325 MG Tablet PO (08:42)
[2018-12-09] MEDS: Glimepiride 4 MG Tablet 8 MG PO (08:42)
[2018-12-09] MEDS: Losartan Potassium 100 MG Tablet PO (08:43)
[2018-12-09] MEDS: Spironolactone 25 MG Tablet PO ×2 (08:43→22:23)
[2018-12-09] MEDS: Loratadine 10 MG Tablet PO (08:43)
[2018-12-09] MEDS: Allopurinol 300 MG Tablet PO (08:43)
[2018-12-09] MEDS: Magnesium Oxide 400 MG Tablet 200 MG PO ×2 (08:44→22:25)
[2018-12-09] MEDS: guaiFENesin 1,200 MG Tablet 1200 MG PO ×2 (08:44→22:25)
[2018-12-09] MEDS: Metoprolol Tartrate 50 MG Tablet PO ×2 (08:44→22:25)
[2018-12-09] MEDS: Finasteride 5 MG Tablet PO (08:45)
[2018-12-09] MEDS: Nystatin Powder 15gm Bottle 1 APPLIC TOPICAL ×2 (08:45→22:26)
[2018-12-09] MEDS: Sertraline 100 MG Tablet PO (08:46)
[2018-12-09] MEDS: Metolazone 2.5 MG Tablet PO (08:46)
[2018-12-09 09:05] LABS: Differential Comment SCANNED
[2018-12-09 09:06] LABS: Anisocytosis 1+; Hypochromasia 1+; Platelet Estimate ADEQUATE (ADEQ)
--- NOTE | 2018-12-09 10:03 | CASEMGMT ---
JAIME/[facility] in echart, SW printed to place in chart. TERRIE Byrne
[2018-12-09 11:16] LABS: Bedside Glucose 217 mg/dL (70-110)
--- NOTE | 2018-12-09 14:50 | NURSING ---
wound photo: left lower leg
--- NOTE | 2018-12-09 14:51 | NURSING ---
wound photo: right lower leg
--- NOTE | 2018-12-09 15:52 | CASEMGMT ---
SW spoke with patient this am regarding TCU. SW told him TCU will have a bed for him. He was in agreement with going to TCU. SW then talked with patient about his emotional state. SW asked him if he feels depressed. He said he doesn't think he is depressed. SW asked him about not wanting to get up and to anything at home and not bathing. 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 SW encouraged him to go out to his shop and do some of these things as it may help him feel better to do something he likes to do. He went on to tell SW about his daughter and his grand kids. SW listened and thanked patient for sharing these stories. Plan: d/c to [facility] TCU Brooke [place]
[2018-12-09 16:26] LABS: Bedside Glucose 222 mg/dL (70-110)
[2018-12-09] MEDS: Bisacodyl 5 MG Tablet 10 MG PO (18:16)
[2018-12-09] MEDS: Lactulose 20 GM/30 ML UDC PO (18:16)
--- NOTE | 2018-12-09 18:38 | PN_ITS ---
Patient Problems: Active and Suspected Problems (Last Reviewed 12/08/18 @ 03:44 by Garrett Whitley MD) New onset a-fib (Acute) Subjective: Patient was seen and examined today, he voices no complaints of any shortness of breath, currently he is on BiPAP. Patient has no complaints of any fever, chills, or chest pain. - Physical Exam General: Alert, Oriented x3, Cooperative, No apparent distress, Well developed HEENT: Atraumatic, PERRLA, EOMI, Normocephalic Oral: Moist Mucosa Neck: Supple, No JVD, Negative Carotid Bruits, Trachea Midline, Thyroid Normal Size and Texture Lungs: Clear to auscultation, Normal air movement, No rhonchi, No wheeze, No rales Cardiovascular: Regular rate, Regular Rhythm, Normal S1, Normal S2, No murmurs, PMI Normal, No rub noted Abdomen: Bowel Sounds Present, Soft, Non Tender, Non-Distended, Obese Extremities: No clubbing, No cyanosis, Capillary Refill Less than 3 Seconds Skin: No rashes, No breakdown Musculoskeletal: No Tenderness to Palpation of Joints or Extremities Neurological: Cranial nerves II-XII grossly intact, Neuro grossly intact, Sensory exam intact to light touch and pain Psych/Mental Status: Normal Affect, Appropriate, Alert and oriented to time, place, person, mood and affect Vital Signs Temp Pulse Resp BP Pulse Ox 98.3 F 77 18 140/72 H 97 12/09/18 18:25 12/09/18 18:25 12/09/18 18:25 12/09/18 18:25 12/09/18 18:25 Oxygen Flow Rate (L/min) 3 Oxygen Delivery Method Nasal Cannula Weight: 161 kg Body Mass Index (BMI) 53.9 Finger Stick Blood Glucose 171 Intake and Output for Last 24 Hours 12/07/18 12/08/18 12/09/18 23:59 23:59 23:59 Intake Total 2285 / 2525 1681 / 1681 Output Total 675 / 1025 1550 / 1550 Balance 1610 / 1500 131 / 131 Microbiology Past 72 Hours 12/08/18 01:25 Respiratory Panel (PCR) - Final Mucosa - Nasopharyngeal Laboratory Tests Past 24 Hrs 12/07/18 12/07/18 12/09/18 22:50 22:50 06:20 WBC Cancelled Corrected WBC Cancelled RBC Cancelled Hgb Cancelled Hct Cancelled MCV Cancelled MCH Cancelled MCHC Cancelled RDW Std Deviation Cancelled RDW Coeff of El Cancelled Plt Count Cancelled MPV Cancelled Immature Gran % (Auto) Cancelled Neut % (Auto) Cancelled Lymph % (Auto) Cancelled [place] % (Auto) Cancelled Eos % (Auto) Cancelled Baso % (Auto) Cancelled Absolute Neuts (auto) Cancelled Absolute Lymphs (auto) Cancelled Absolute Nucleated RBC Cancelled Total Counted Cancelled Neutrophils % (Manual) Cancelled Band Neutrophils % Cancelled Lymphocytes % (Manual) Cancelled Monocytes % (Manual) Cancelled Eosinophils % (Manual) Cancelled Basophils % (Manual) Cancelled Metamyelocytes % Cancelled Myelocytes % Cancelled Promyelocytes % Cancelled Blast Cells % Cancelled Plasma Cell % (Manual) Cancelled Other Cells % Cancelled Nucleated RBC % Cancelled Nucleated RBCs/100 WBC Cancelled Differential Comment Cancelled Diff Path Review Cancelled Hypersegmented Neuts Cancelled Atypical Lymphocytes Cancelled Reactive Lymphocytes Cancelled Smudge Cells Cancelled Toxic Granulation Cancelled Toxic Vacuolation Cancelled Dohle Bodies Cancelled Sander Rods Cancelled Platelet Estimate Cancelled Plt Morphology Comment Cancelled RBC Morphology Cancelled Polychromasia Cancelled Hypochromasia Cancelled Poikilocytosis Cancelled Basophilic Stippling Cancelled Anisocytosis Cancelled Microcytosis Cancelled Macrocytosis Cancelled Spherocytes Cancelled Sickle Cells Cancelled Target Cells Cancelled Tear Drop Cells Cancelled Ovalocytes Cancelled Stomatocytes Cancelled [place] Bodies Cancelled Xuan Cells Cancelled Bite Cells Cancelled Crenated Cell Cancelled Acanthocytes (Spur) Cancelled Rouleaux Cancelled Schistocytes Cancelled Crossmatch See Detail See Detail 12/09/18 07:54 WBC 6.7 Corrected WBC RBC 3.12 L Hgb 7.5 L Hct 25.3 L MCV 81.1 MCH 24.0 L MCHC 29.6 L RDW Std Deviation 45.8 H RDW Coeff of El 15.5 H Plt Count 314 MPV 9.6 Immature Gran % (Auto) 1.200 H Neut % (Auto) 86.2 H Lymph % (Auto) 6.9 L [place] % (Auto) 5.7 Eos % (Auto) 0.0 Baso % (Auto) 0.0 Absolute Neuts (auto) Not Reportable Absolute Lymphs (auto) 0.46 L Absolute Nucleated RBC 0.02 Total Counted Neutrophils % (Manual) Band Neutrophils % Lymphocytes % (Manual) Monocytes % (Manual) Eosinophils % (Manual) Basophils % (Manual) Metamyelocytes % Myelocytes % Promyelocytes % Blast Cells % Plasma Cell % (Manual) Other Cells % Nucleated RBC % 0.3 Nucleated RBCs/100 WBC Differential Comment SCANNED Diff Path Review Hypersegmented Neuts Atypical Lymphocytes Reactive Lymphocytes Smudge Cells Toxic Granulation Toxic Vacuolation Dohle Bodies Sander Rods Platelet Estimate ADEQUATE Plt Morphology Comment RBC Morphology Polychromasia Hypochromasia 1+ Poikilocytosis Basophilic Stippling Anisocytosis 1+ Microcytosis Macrocytosis Spherocytes Sickle Cells Target Cells Tear Drop Cells Ovalocytes Stomatocytes [place] Bodies Xuan Cells Bite Cells Crenated Cell Acanthocytes (Spur) Rouleaux Schistocytes Crossmatch POC Glucose 12/09/18 12/09/18 12/09/18 16:11 11:06 06:29 POC Glucose 222 H 217 H 208 H 12/08/18 22:10 POC Glucose 278 H Medical Necessity - Tobacco Use Smoking Status: Former smoker Assessment/Plan All Active Problems (Last Reviewed 12/08/18 @ 03:44 by Garrett Whitley MD) New onset a-fib (Acute) History of repair of thoracic aortic aneurysm (Resolved 12/11/09) H/O aortic valve replacement (Resolved 12/11/09) Acute on chronic respiratory failure with hypoxia and hypercapnia (Resolved) Bilateral lower leg cellulitis (Resolved) CAP (community acquired pneumonia) (Resolved) CHF exacerbation (Resolved) Hyperkalemia (Resolved) Hypoglycemia (Resolved) Hypoglycemia (Resolved) Hypomagnesemia (Resolved) Hyponatremia (Resolved) Pulmonary embolism on right (Resolved) Shortness of breath (Resolved) Tobacco abuse (Resolved) Wheezing (Resolved) #1 new onset atrial fibrillation-converted to sinus rhythm at this time, continue to observe, I do not feel the patient is a candidate for full anticoagulation due to his unexplained anemia #2 iron deficiency anemia-etiology unclear, possibly secondary to occult blood loss versus nutritional, patient will be given IV Venofer, patient will be given an additional unit of packed red blood cells, CBC will be rechecked tomorrow #3 COPD exacerbation-I will decrease the patient's Solu-Medrol to 20 mg every 12 hours, continue aerosol treatments #4 generalized weakness-secondary to iron deficiency anemia, COPD, and generalized debility-PT and OT will see the patient, he will need [facility] in a [facility] facility #5 type 2 diabetes-blood sugar will be monitored #6 morbid obesity-complicates care and recovery. #7 chronic hypoxic respiratory failure-monitor pulse ox #8 essential hypertension #9 chronic diastolic congestive heart failure-continue present medications Code Visit Inpatient E&M: 13009 Subs Hosp L2
[2018-12-09] MEDS: Doxazosin 4 MG Tablet 8 MG PO (22:24)
[2018-12-09] MEDS: Atorvastatin Calcium 40 MG Tablet PO (22:25)
[2018-12-09] MEDS: Pantoprazole Sodium 40 MG Tablet PO (22:31)
[2018-12-09 22:41] LABS: Bedside Glucose 326 mg/dL (70-110)
[2018-12-10] VITALS (23 sets, daily range): BP systolic 113–137; BP diastolic 54–76; PULSE 53–110; RESP 12–26; TEMP 36.5–37.2; O2SAT 95–99
[2018-12-10 06:31] LABS: Absolute Lymphocyte Count 0.59 X10^3/uL (0.83-4.51); Basophil# 0.01 X10^3/uL; Basophil% 0.1 % (0-1); Hematocrit 26.4 % (40-54); Hemoglobin 7.9 g/dL (13.0-16.5); Lymphocyte # 0.59 X10^3/ul (4.0); Mean Corp Hgb Conc 29.9 g/dL (32-36); Mean Corpuscular Hgb 24.6 pg (27.0-32.0); Mean Corpuscular Volume 82.2 fL (80-94); Mean Platelet Vol. 9.2 fl (6.2-12.0); Monocyte# 0.69 X10^3/uL; Monocyte% 8.2 % (0-10); NRBC Flagged by Analyzer 0 % (0-5); Neutrophil % 82.8 % (47-70); POSITIVE DIFFERENTIAL YES; Platelet Count 298 K/mm3 (150-450); RBC Distribution Width CV 15.9 % (11.6-14.6); RBC Distribution Width SD 47.5 fl (35.1-43.9); Red Blood Count 3.21 M/mm3 (4.6-6.2); White Blood Count 8.5 K/mm3 (4.4-11.0)
[2018-12-10 06:38] LABS: Differential Indicated SCAN CRITERIA MET
[2018-12-10] MEDS: Ipratropium/Albuterol Sulfate 3 ML AMPUL.NEB INHALATION ×3 (06:44→19:49)
[2018-12-10 06:50] LABS: Bedside Glucose 129 mg/dL (70-110)
[2018-12-10 07:03] LABS: Differential Comment SCANNED
[2018-12-10] MEDS: Metoprolol Tartrate 50 MG Tablet PO ×2 (10:08→22:27)
[2018-12-10] MEDS: Glimepiride 4 MG Tablet 8 MG PO (10:08)
[2018-12-10] MEDS: Magnesium Oxide 400 MG Tablet 200 MG PO ×2 (10:08→22:27)
[2018-12-10] MEDS: Loratadine 10 MG Tablet PO (10:08)
[2018-12-10] MEDS: Ferrous Sulfate 325 MG Tablet PO (10:12)
[2018-12-10] MEDS: Spironolactone 25 MG Tablet PO ×2 (10:12→22:27)
[2018-12-10] MEDS: Allopurinol 300 MG Tablet PO (10:12)
[2018-12-10] MEDS: guaiFENesin 1,200 MG Tablet 1200 MG PO ×2 (10:12→22:27)
[2018-12-10] MEDS: Losartan Potassium 100 MG Tablet PO (10:12)
[2018-12-10] MEDS: Metolazone 2.5 MG Tablet PO (10:14)
[2018-12-10] MEDS: Nystatin Powder 15gm Bottle 1 APPLIC TOPICAL ×2 (10:14→22:23)
[2018-12-10] MEDS: Finasteride 5 MG Tablet PO (10:14)
[2018-12-10] MEDS: Sertraline 100 MG Tablet PO (10:15)
[2018-12-10] MEDS: Pantoprazole Sodium 40 MG Tablet PO (10:18)
[2018-12-10 12:01] LABS: Bedside Glucose 109 mg/dL (70-110)
--- NOTE | 2018-12-10 12:49 | PCM.CONS.GEN ---
Reason for Consult Date of Consultation: 12/10/18 History of Present Illness: The patient is a 73 year old M who was admitted due to COPD exacerbation. However he was noticed that he again was anemic. Patient has been having issues with anemia previously and did have an EGD and attempted colonoscopy by Dr. Garcia in July 2018. However patient had a poor prep and there is stool throughout the entire colon recommended barium enema which I do not see that has ever been done. Patient states he had a colonoscopy in the past but is unable to remember what it was but says it was a while ago. Patient states he has bowel movements about once a week denies any blood in the stool. Patient states his last bowel movement was a couple days ago however he states he did not look at the stool. Patient's hemoglobin was 6.7 on admit he received 3 units packed red blood cells and his most current hemoglobin is 7.9. Patient is on Plavix at home currently not on any anticoagulation here. Past Medical History Past Medical History (Chronic Problems): Chronic Problems (Last Reviewed 12/08/18 @ 03:44 by Garrett Whitley MD) COPD with exacerbation (Chronic) Pickwickian syndrome (Chronic) Iron deficiency anemia (Chronic) etology unknown COPD (chronic obstructive pulmonary disease) (Chronic) Obstructive sleep apnea (Chronic) Super obesity (Chronic) Hypertension (Chronic) Thoracic aortic aneurysm (Chronic) Lymphedema (Chronic) Gout (Chronic) BPH (benign prostatic hyperplasia) (Chronic) Hypomagnesemia (Chronic) Diabetes mellitus (Chronic) Chronic respiratory failure with hypoxia and hypercapnia (Chronic) Essential (primary) hypertension (Chronic) Chronic diastolic heart failure (Chronic) Thoracic aortic aneurysm without rupture (Chronic) Status post ascending and proximal arch aneurysm replaced with a Hemashield graft and shayan-arch repair; Hyperlipidemia (Chronic) Lymphedema of leg (Chronic) Medical History: Medical History (Last Reviewed 12/08/18 @ 03:44 by Garrett Whitley MD) Chronic respiratory failure with hypoxia and hypercapnia (Chronic) J96.11, J96.12 Essential (primary) hypertension (Chronic) I10 Chronic diastolic heart failure (Chronic) I50.32 Thoracic aortic aneurysm without rupture (Chronic) I71.2 Status post ascending and proximal arch aneurysm replaced with a Hemashield graft and shayan-arch repair; Hyperlipidemia (Chronic) E78.5 Lymphedema of leg (Chronic) I89.0 BPH w/o urinary obs/LUTS N40.0 COPD (chronic obstructive pulmonary disease) J44.9 Chronic anemia D64.9 Chronic kidney disease, stage 2 (mild) N18.2 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 GERD (gastroesophageal reflux disease) K21.9 History of pulmonary embolism Z86.711 Iron deficiency anemia D50.9 Lymphedema I89.0 Morbid obesity E66.01 Obstructive sleep apnea G47.33 Osteoarthritis M19.90 Tinea unguium B35.1 Ulcer of left lower extremity with fat layer exposed L97.922 Ulcer of right lower extremity with fat layer exposed L97.912 Venous insufficiency I87.2 Ventral hernia K43.9 Acute on chronic respiratory failure with hypoxia and hypercapnia (Resolved) J96.21, J96.22 Acute on chronic respiratory failure with hypoxia and hypercapnia J96.21, J96.22 Adynamic ileus K56.0 CAP (community acquired pneumonia) (Resolved) J18.9 The patient appropriately completed antibiotics and prednisone as prescribed. He has no further signs and symptoms of persistent pneumonia. No indication for any further testing at this time. Patient will be eligible for Pneumovax 23 in approximately 6 months. He states that his PCP is very good at keeping track of his immunizations and when they are due. CHF exacerbation (Resolved) I50.9 Hypoglycemia (Resolved) E16.2 Pulmonary embolism on right (Resolved) I26.99 Tobacco abuse (Resolved) Z72.0 Wheezing (Resolved) R06.2 Edema of both legs (Inactive) R60.0 Immobility (Inactive) Z74.09 Leg swelling (Inactive) M79.89 Multiple excoriations (Inactive) T14.8 Nausea and vomiting (Inactive) R11.2 Tinea unguium (Inactive) B35.1 Allergies naphazoline HCl [From Naphcon] Allergy (Severe, Verified 12/08/18 00:29) affected his breathing AFFECTED HIS BREATHING amlodipine besylate [From Norvasc] Allergy (Verified 12/08/18 00:29) Other dextromethorphan Allergy (Verified 12/08/18 00:29) Other levofloxacin [From Levaquin] Adverse Reaction (Mild, Verified 12/08/18 00:29) made me hyperactive made me hyperactive Home Medications: Ambulatory Orders Medication Instructions Recorded Allopurinol [Zyloprim] 300 mg PO DAILY 06/15/18 Clopidogrel Bisulfate [Plavix] 75 mg PO DAILY 06/15/18 Ferrous Sulfate 325 mg PO DAILY 06/15/18 Finasteride [Proscar] 5 mg PO DAILY 06/15/18 Magnesium 250 mg PO BID 06/15/18 Metolazone [Zaroxolyn] 2.5 mg PO DAILY 06/15/18 Metoprolol Tartrate [Lopressor 50 mg PO BID 06/15/18 (beta maryam)] Sertraline HCl [Zoloft] 100 mg PO DAILY 06/15/18 Spironolactone [Aldactone] 25 mg PO BID 06/15/18 Acetaminophen [Tylenol Tablet] 650 mg PO Q6H PRN PRN tab 06/17/18 Atorvastatin Calcium 40 mg PO QHS 12/07/18 Losartan Potassium 100 mg PO DAILY 12/07/18 Terazosin HCl 10 mg PO QHS 12/07/18 Albuterol Aerosols [Ventolin 2.5 mg INHALATION Q2H PRN PRN 12/13/18 Aerosols] vial.neb. Budesonide/Formoterol 160/4.5 2 puff INHALATION BID 12/13/18 [Symbicort 160/4.5 Mcg Inhaler (SP)] Furosemide [Lasix] 40 mg PO DAILY 12/13/18 Glimepiride [Amaryl] 2 mg PO DAILY 12/13/18 Ipratropium/Albuterol Sulfate 3 ml INHALATION Q6HWA.RT 12/13/18 [Duoneb] Nystatin Powder [Mycostatin Powder] 1 applic TOPICAL BID 12/13/18 Pantoprazole Sodium [Protonix] 40 mg PO DAILY 12/13/18 Surgical History: Surgical History (Last Reviewed 12/08/18 @ 03:44 by Garrett Whitley MD) History of repair of thoracic aortic aneurysm (Resolved) Onset Date: 12/11/09 Z98.890, Z86.79 H/O aortic valve replacement (Resolved) Onset Date: 12/11/09 Z95.2 # 29 Freestyle valve H/O hernia repair Z98.890, Z87.19 Surgical History: - - He has a bioprosthetic aortic valve replacement, abdominal aortic aneurysm repair '05, recent surgery to repair a large ventral hernia-with mesh. Psychiatric History: Anxiety, Depression Lives: Spouse/ Significant Other Smoking Status: Former smoker - *Family History Maternal Family History: Family History (Last Reviewed 12/08/18 @ 03:44 by Garrett Whitley MD) Brother TBI (traumatic brain injury) Sister Ulcerative colitis History Items: Hypertension, - - Patient's father at the age of 94 from old age. Patient's mother at age of 87 with a history of hyperlipidemia and hypertension. Paternal Family History: Family History (Last Reviewed 12/08/18 @ 03:44 by Garrett Whitley MD) Brother TBI (traumatic brain injury) Sister Ulcerative colitis History Items: Hypertension Review of Systems Constitutional: Denies: Anorexia, Fever HEENT: Denies: Difficulty Swallowing Cardiovascular: Denies: Chest Pain Respiratory: Reports: Shortness of Breath Gastrointestinal: Reports: Constipation. Denies: Abdominal Pain, Nausea, Vomiting Genitourinary: Denies: Dysuria Psychiatric: Denies: Anxiety Hematologic/ Lymphatic: Denies: Easy Bleeding Patient Problems: Active and Suspected Problems (Last Reviewed 12/08/18 @ 03:44 by Garrett Whitley MD) Debility (Acute) Acute on chronic diastolic heart failure (Acute) - Physical Exam General: Alert, Oriented x3, Cooperative, No apparent distress Lungs: - - Audible rhonchi Abdomen: Soft, Non Tender, Non-Distended, Obese, - - Lower midline incision well-healed Extremities: Edema - Patient has Juan wraps on bilateral lower extremities Neurological: Cranial nerves II-XII grossly intact Psych/Mental Status: Normal Affect Vital Signs Temp Pulse Resp BP Pulse Ox 98.0 F 78 22 H 113/54 L 98 12/10/18 09:51 12/10/18 12:33 12/10/18 12:33 12/10/18 09:51 12/10/18 09:51 Oxygen Flow Rate (L/min) 3 Oxygen Delivery Method Nasal Cannula Weight: 354 lb 15.108 oz Body Mass Index (BMI) 53.9 Finger Stick Blood Glucose 171 Intake and Output for Last 24 Hours 12/08/18 12/09/18 12/10/18 23:59 23:59 23:59 Intake Total 2285 / 2525 2261 / 2261 120 / 120 Output Total 675 / 1025 2175 / 2175 400 / 400 Balance 1610 / 1500 86 / 86 -280 / -280 Microbiology Past 72 Hours 12/07/18 21:25 Blood Culture - Preliminary Blood Culture (Wb) - Right Wrist No growth in 48 hours. 12/07/18 20:20 Blood Culture - Preliminary Blood Culture (Wb) - Anticubital Right No growth in 48 hours. 12/08/18 01:25 Respiratory Panel (PCR) - Final Mucosa - Nasopharyngeal Laboratory Tests Past 24 Hrs 12/07/18 12/07/18 12/07/18 22:50 22:50 22:50 WBC RBC Hgb Hct MCV MCH MCHC RDW Std Deviation RDW Coeff of [place] Count MPV Immature Gran % (Auto) Neut % (Auto) Lymph % (Auto) [place] % (Auto) Eos % (Auto) Baso % (Auto) Absolute Neuts (auto) Absolute Lymphs (auto) Absolute Nucleated RBC Nucleated RBC % Differential Comment Crossmatch See Detail See Detail See Detail 12/10/18 06:05 WBC 8.5 RBC 3.21 L Hgb 7.9 L Hct 26.4 L MCV 82.2 MCH 24.6 L MCHC 29.9 L RDW Std Deviation 47.5 H RDW Coeff of El 15.9 H Plt Count 298 MPV 9.2 Immature Gran % (Auto) 1.900 H Neut % (Auto) 82.8 H Lymph % (Auto) 7.0 L [place] % (Auto) 8.2 Eos % (Auto) 0.0 Baso % (Auto) 0.1 Absolute Neuts (auto) Not Reportable Absolute Lymphs (auto) 0.59 L Absolute Nucleated RBC 0.00 Nucleated RBC % 0 Differential Comment SCANNED Crossmatch POC Glucose 12/10/18 12/10/18 12/09/18 11:57 06:43 22:17 POC Glucose 109 129 H 326 H 12/09/18 16:11 POC Glucose 222 H Assessment/Plan All Active Problems (Last Reviewed 12/08/18 @ 03:44 by Garrett Whitley MD) New onset a-fib (Acute) Debility (Acute) Acute on chronic diastolic heart failure (Acute) History of repair of thoracic aortic aneurysm (Resolved 12/11/09) H/O aortic valve replacement (Resolved 12/11/09) Acute on chronic respiratory failure with hypoxia and hypercapnia (Resolved) Bilateral lower leg cellulitis (Resolved) CAP (community acquired pneumonia) (Resolved) CHF exacerbation (Resolved) Hyperkalemia (Resolved) Hypoglycemia (Resolved) Hypoglycemia (Resolved) Hypomagnesemia (Resolved) Hyponatremia (Resolved) Pulmonary embolism on right (Resolved) Shortness of breath (Resolved) Tobacco abuse (Resolved) Wheezing (Resolved) 73-year-old male with anemia, history of polyp positive fecal occult blood 1. I have discussed the above with the patient. Discussed with patient that since he only has a bowel movement once every week he may not be able to be prepped and ready to go for tomorrow 8 AM. This is the case would plan to continue the prep and try to reschedule for Thursday. I have offered the patient colonoscopy for evaluation. I have explained the risks/benefits of the procedure and described the procedure. I have discussed the risks with the patient, including but not limited to: infection, bleeding, perforation of the GI tract requiring emergency surgery, inability to complete the procedure, injury to any internal organs, complications of anesthesia, etc. - the patient understands and agrees to proceed. I have answered all the patient's questions to the patient's satisfaction and the patient has no further questions. The patient has been given instructions for the colon cleansing preparation. Magnesium citrate, GoLYTELY and lactulose. Akila Jose M.D. Pager: [phone] [facility] [address] [place] [address], [address] [place] [address] Office: [phone]
[2018-12-10] MEDS: Electrolyte Solution/Peg's 4000 ML PO (13:10)
[2018-12-10] MEDS: Lactulose 20 GM/30 ML UDC PO (13:10)
[2018-12-10] MEDS: Magnesium Citrate 300 ML PO (13:10)
--- NOTE | 2018-12-10 14:32 | CASEMGMT ---
BISI spoke with Alexa and let her know that patient is not coming today, but could come over the weekend. Plan: [facility] T[facility] under skilled level of care Brooke REYES MSW
[2018-12-10 16:51] LABS: Bedside Glucose 128 mg/dL (70-110)
--- NOTE | 2018-12-10 18:12 | PCM.PROGNOTE ---
Patient Problems: Active and Suspected Problems (Last Reviewed 12/08/18 @ 03:44 by Garrett Whitley MD) New onset a-fib (Acute) Subjective: Patient was seen and examined today, he does not appear to be in any distress, I feel that patient does have some cognitive impairment-I talked with the on the phone today and it appears a Radha try to do a colonoscopy on the patient because of his anemia in July 2018 and was unable to do the colonoscopy due to the lack of prep. Colonoscopy has never been repeated, patient did have an EGD done on in July 2018 which did not show any significant pathology. Patient's would like the patient to proceed with a colonoscopy, I have contacted general surgery and they are going to attempt a colonoscopy tomorrow. Patient is still anemic-his hemoglobin is 7.9 despite 3 units of transfused blood this admission. I have decided to give the patient another unit of blood today and also IV Venofer. - Physical Exam General: Alert, Cooperative, No apparent distress, Well developed, Well nourished HEENT: Atraumatic, PERRLA, EOMI, Normocephalic Oral: Moist Mucosa Neck: Supple, No JVD, Trachea Midline, Thyroid Normal Size and Texture Lungs: Clear to auscultation, No rhonchi, No wheeze, No rales, Diminished Cardiovascular: Regular rate, Regular Rhythm, Normal S1, Normal S2, No murmurs Abdomen: Bowel Sounds Present, Soft, Non Tender Extremities: No edema, Capillary Refill Less than 3 Seconds Skin: No rashes, No breakdown Musculoskeletal: No Tenderness to Palpation of Joints or Extremities, No Muscle Wasting Neurological: Cranial nerves II-XII grossly intact, Neuro grossly intact, Sensory exam intact to light touch and pain Psych/Mental Status: Flat Affect, - - Patient has evidence of cognitive impairment in conversations Vital Signs Temp Pulse Resp BP Pulse Ox 98.3 F 78 14 137/67 H 95 12/10/18 17:52 12/10/18 17:52 12/10/18 17:52 12/10/18 17:52 12/10/18 17:52 Oxygen Flow Rate (L/min) 3 Oxygen Delivery Method Nasal Cannula Weight: 161 kg Body Mass Index (BMI) 53.9 Finger Stick Blood Glucose 171 Intake and Output for Last 24 Hours 12/08/18 12/09/18 12/10/18 23:59 23:59 23:59 Intake Total 2285 / 2525 2261 / 2261 470 / 470 Output Total 675 / 1025 2175 / 2175 1200 / 1200 Balance 1610 / 1500 86 / 86 -730 / -730 Microbiology Past 72 Hours 12/07/18 21:25 Blood Culture - Preliminary Blood Culture (Wb) - Right Wrist No growth in 48 hours. 12/07/18 20:20 Blood Culture - Preliminary Blood Culture (Wb) - Anticubital Right No growth in 48 hours. 12/08/18 01:25 Respiratory Panel (PCR) - Final Mucosa - Nasopharyngeal Laboratory Tests Past 24 Hrs 12/07/18 12/07/18 12/10/18 22:50 22:50 06:05 WBC 8.5 RBC 3.21 L Hgb 7.9 L Hct 26.4 L MCV 82.2 MCH 24.6 L MCHC 29.9 L RDW Std Deviation 47.5 H RDW Coeff of El 15.9 H Plt Count 298 MPV 9.2 Immature Gran % (Auto) 1.900 H Neut % (Auto) 82.8 H Lymph % (Auto) 7.0 L [place] % (Auto) 8.2 Eos % (Auto) 0.0 Baso % (Auto) 0.1 Absolute Neuts (auto) Not Reportable Absolute Lymphs (auto) 0.59 L Absolute Nucleated RBC 0.00 Nucleated RBC % 0 Differential Comment SCANNED Crossmatch See Detail See Detail POC Glucose 12/10/18 12/10/18 12/10/18 16:36 11:57 06:43 POC Glucose 128 H 109 129 H 12/09/18 22:17 POC Glucose 326 H Medical Necessity - Tobacco Use Smoking Status: Former smoker Assessment/Plan All Active Problems (Last Reviewed 12/08/18 @ 03:44 by Garrett Whitley MD) New onset a-fib (Acute) History of repair of thoracic aortic aneurysm (Resolved 12/11/09) H/O aortic valve replacement (Resolved 12/11/09) Acute on chronic respiratory failure with hypoxia and hypercapnia (Resolved) Bilateral lower leg cellulitis (Resolved) CAP (community acquired pneumonia) (Resolved) CHF exacerbation (Resolved) Hyperkalemia (Resolved) Hypoglycemia (Resolved) Hypoglycemia (Resolved) Hypomagnesemia (Resolved) Hyponatremia (Resolved) Pulmonary embolism on right (Resolved) Shortness of breath (Resolved) Tobacco abuse (Resolved) Wheezing (Resolved) #1 new onset atrial fibrillation-converted to sinus rhythm at this time, continue to observe, I do not feel the patient is a candidate for full anticoagulation due to his unexplained anemia #2 iron deficiency anemia-etiology unclear, possibly secondary to occult blood loss versus nutritional, patient will be given IV Venofer, patient will be given an additional unit of packed red blood cells, undergo colonoscopy tomorrow, repeat CBC in the morning #3 COPD exacerbation-continue present care #4 generalized weakness-secondary to iron deficiency anemia, COPD, and generalized debility-PT and OT will see the patient, he will need temporary placement in a residential facility #5 type 2 diabetes-blood sugar will be monitored #6 morbid obesity-complicates care and recovery. #7 chronic hypoxic respiratory failure-monitor pulse ox #8 essential hypertension #9 chronic diastolic congestive heart failure-continue present medications #10 cognitive impairment-probably secondary to undiagnosed dementia Code Visit Inpatient E&M: 86167 Subs Hosp L2
[2018-12-10] MEDS: 0.9% NaCl Peripheral Flush Adult/Peds IV ×2 (20:23→22:29)
[2018-12-10] MEDS: Doxazosin 4 MG Tablet 8 MG PO (22:27)
[2018-12-10] MEDS: Atorvastatin Calcium 40 MG Tablet PO (22:27)
[2018-12-10 22:40] LABS: Bedside Glucose 66 mg/dL (70-110)
--- NOTE | 2018-12-10 23:03 | NURSING ---
This RN and the respiratory therapist encouraged patient multiple times through the night to wear bi-pap. The patient does not want to wear due to bowel prep for procedure tomorrow.
[2018-12-11] VITALS (14 sets, daily range): BP systolic 127–149; BP diastolic 61–74; PULSE 64–78; RESP 12–20; TEMP 36.3–36.9; O2SAT 89–98; BMI 53.9
[2018-12-11] MEDS: Bisacodyl 5 MG Tablet 10 MG PO (03:03)
[2018-12-11] MEDS: Magnesium Citrate 300 ML PO (03:04)
--- NOTE | 2018-12-11 05:48 | CPS ---
pt is doing bowel prep. on and off bipap mask.
[2018-12-11 06:45] LABS: Bedside Glucose 92 mg/dL (70-110)
[2018-12-11] MEDS: Ipratropium/Albuterol Sulfate 3 ML AMPUL.NEB INHALATION ×3 (07:02→22:31)
[2018-12-11 07:42] LABS: Absolute Lymphocyte Count 0.55 X10^3/uL (0.83-4.51); Basophil# 0.01 X10^3/uL; Basophil% 0.1 % (0-1); Hematocrit 33.1 % (40-54); Lymphocyte # 0.55 X10^3/ul (4.0); Lymphocyte % 7.6 % (19-41); Mean Corp Hgb Conc 30.2 g/dL (32-36); Mean Corpuscular Hgb 25.4 pg (27.0-32.0); Mean Platelet Vol. 9.2 fl (6.2-12.0); Monocyte# 0.43 X10^3/uL; NRBC Flagged by Analyzer 0 % (0-5); Neutrophil # 6.01 X10^3/uL (2.7-7.7); Neutrophil % 83.3 % (47-70); POSITIVE DIFFERENTIAL YES; Platelet Count 274 K/mm3 (150-450); RBC Distribution Width CV 15.9 % (11.6-14.6); RBC Distribution Width SD 48.2 fl (35.1-43.9); Red Blood Count 3.94 M/mm3 (4.6-6.2); White Blood Count 7.2 K/mm3 (4.4-11.0)
[2018-12-11 07:45] LABS: Differential Indicated SCAN CRITERIA MET
[2018-12-11 08:10] LABS: Hypochromasia 1+
--- NOTE | 2018-12-11 08:47 | PCM.PN.SRG ---
Patient Problems: Active and Suspected Problems (Last Reviewed 12/08/18 @ 03:44 by Garrett Whitley MD) New onset a-fib (Acute) Subjective: Patient stool still is clear this morning will hold off on colonoscopy until tomorrow at 8 AM. - Physical Exam General: Alert, Oriented x3, Cooperative, No apparent distress HEENT: Atraumatic Lungs: - - Audible rhonchi Abdomen: Soft, Non Tender, Non-Distended, Obese Vital Signs Temp Pulse Resp BP Pulse Ox 97.9 F 66 16 149/73 H 97 12/11/18 03:09 12/11/18 07:11 12/11/18 07:02 12/11/18 03:09 12/11/18 07:02 Oxygen Flow Rate (L/min) 3 Oxygen Delivery Method Nasal Cannula Weight: 354 lb 15.108 oz Body Mass Index (BMI) 53.9 Finger Stick Blood Glucose 171 Intake and Output for Last 24 Hours 12/09/18 12/10/18 12/11/18 23:59 23:59 23:59 Intake Total 2261 / 2261 3710 / 3710 600 / 600 Output Total 2175 / 2175 2375 / 2375 300 / 300 Balance 86 / 86 1335 / 1335 300 / 300 Microbiology Past 72 Hours 12/10/18 18:00 Stool Occult Blood (ESTEFANIA) - Final Stool 12/07/18 21:25 Blood Culture - Preliminary Blood Culture (Wb) - Right Wrist No growth in 48 hours. 12/07/18 20:20 Blood Culture - Preliminary Blood Culture (Wb) - Anticubital Right No growth in 48 hours. 12/08/18 01:25 Respiratory Panel (PCR) - Final Mucosa - Nasopharyngeal Laboratory Tests Past 24 Hrs 12/07/18 12/11/18 22:50 06:50 WBC 7.2 RBC 3.94 L Hgb 10.0 L Hct 33.1 L MCV 84.0 MCH 25.4 L MCHC 30.2 L RDW Std Deviation 48.2 H RDW Coeff of El 15.9 H Plt Count 274 MPV 9.2 Immature Gran % (Auto) 3.000 H Neut % (Auto) 83.3 H Lymph % (Auto) 7.6 L [place] % (Auto) 6.0 Eos % (Auto) 0.0 Baso % (Auto) 0.1 Absolute Neuts (auto) Not Reportable Absolute Lymphs (auto) 0.55 L Absolute Nucleated RBC 0.00 Nucleated RBC % 0 Hypochromasia 1+ Crossmatch See Detail POC Glucose 12/11/18 12/10/18 12/10/18 06:36 22:22 16:36 POC Glucose 92 66 L 128 H 12/10/18 11:57 POC Glucose 109 Medical Necessity - Tobacco Use Smoking Status: Former smoker Assessment/Plan All Active Problems (Last Reviewed 12/08/18 @ 03:44 by Garrett Wihtley MD) New onset a-fib (Acute) History of repair of thoracic aortic aneurysm (Resolved 12/11/09) H/O aortic valve replacement (Resolved 12/11/09) Acute on chronic respiratory failure with hypoxia and hypercapnia (Resolved) Bilateral lower leg cellulitis (Resolved) CAP (community acquired pneumonia) (Resolved) CHF exacerbation (Resolved) Hyperkalemia (Resolved) Hypoglycemia (Resolved) Hypoglycemia (Resolved) Hypomagnesemia (Resolved) Hyponatremia (Resolved) Pulmonary embolism on right (Resolved) Shortness of breath (Resolved) Tobacco abuse (Resolved) Wheezing (Resolved) 73-year-old male with anemia, history of polyp positive fecal occult blood 1. Patient stool is not clear still with the prep. We will plan to do the colonoscopy tomorrow at 8 AM. Will check back later this morning to see how it is progressing and will likely give additional prep. Akila Jose M.D. Pager: [phone] [facility] [address] [place] [address], [facility], [address] [place] [address] Office: [phone]
[2018-12-11] MEDS: Sertraline 100 MG Tablet PO (10:06)
[2018-12-11] MEDS: Metoprolol Tartrate 50 MG Tablet PO ×2 (10:06→22:25)
[2018-12-11] MEDS: Finasteride 5 MG Tablet PO (10:06)
[2018-12-11] MEDS: Magnesium Oxide 400 MG Tablet 200 MG PO ×2 (10:06→22:26)
[2018-12-11] MEDS: Losartan Potassium 100 MG Tablet PO (10:06)
[2018-12-11] MEDS: guaiFENesin 1,200 MG Tablet 1200 MG PO ×2 (10:06→22:26)
[2018-12-11] MEDS: Allopurinol 300 MG Tablet PO (10:06)
[2018-12-11] MEDS: Pantoprazole Sodium 40 MG Tablet PO (10:06)
[2018-12-11] MEDS: Nystatin Powder 15gm Bottle 1 APPLIC TOPICAL ×2 (10:07→22:23)
[2018-12-11] MEDS: Metolazone 2.5 MG Tablet PO (10:07)
[2018-12-11] MEDS: Spironolactone 25 MG Tablet PO ×2 (10:07→22:25)
[2018-12-11] MEDS: Ferrous Sulfate 325 MG Tablet PO (10:07)
[2018-12-11] MEDS: 0.9% NaCl Peripheral Flush Adult/Peds IV (10:08)
[2018-12-11 11:16] LABS: Bedside Glucose 83 mg/dL (70-110)
[2018-12-11] MEDS: Electrolyte Solution/Peg's 4000 ML PO (14:19)
[2018-12-11] MEDS: Insulin Lispro 100 UNIT/ML INSULN.PEN SC (15:52)
[2018-12-11 16:36] LABS: Bedside Glucose 180 mg/dL (70-110)
--- NOTE | 2018-12-11 18:57 | PCM.PROGNOTE ---
Patient Problems: Active and Suspected Problems (Last Reviewed 12/08/18 @ 03:44 by Garrett Whitley MD) New onset a-fib (Acute) Subjective: Patient was seen and examined today, his hemoglobin was 10 today, patient was not cleaned out well enough to undergo colonoscopy, he is currently undergoing another prep today. I talked with his and family member who was in the room today with the patient. I decided to stop the patient's Solu-Medrol today. Patient was given additional Venofer today. Patient has no complaints of any shortness of breath or chest pain today, he denies any fevers or chills. - Physical Exam General: Alert, Cooperative, No apparent distress, Well developed HEENT: Atraumatic, PERRLA, EOMI, Normocephalic Oral: Moist Mucosa Neck: Supple, Trachea Midline, Thyroid Normal Size and Texture Lungs: Clear to auscultation, Normal air movement, No rhonchi, No wheeze, No rales Cardiovascular: Regular rate, Regular Rhythm, Normal S1, Normal S2, No murmurs, PMI Normal, No rub noted, No Gallop Abdomen: Bowel Sounds Present, Soft, Non Tender, Non-Distended, Obese Extremities: No clubbing, No cyanosis, Capillary Refill Less than 3 Seconds Skin: No rashes, No breakdown Musculoskeletal: No Tenderness to Palpation of Joints or Extremities Neurological: Cranial nerves II-XII grossly intact, Neuro grossly intact, Sensory exam intact to light touch and pain, Coordination normal Psych/Mental Status: Normal Affect, Appropriate Vital Signs Temp Pulse Resp BP Pulse Ox 98.0 F 71 18 140/74 H 98 12/11/18 16:00 12/11/18 16:00 12/11/18 16:00 12/11/18 16:00 12/11/18 16:00 Oxygen Flow Rate (L/min) 2.5 Oxygen Delivery Method Nasal Cannula Weight: 161 kg Body Mass Index (BMI) 53.9 Finger Stick Blood Glucose 171 Intake and Output for Last 24 Hours 12/09/18 12/10/18 12/11/18 23:59 23:59 23:59 Intake Total 2261 / 2261 3710 / 3710 2780 / 2780 Output Total 2175 / 2175 2375 / 2375 1350 / 1350 Balance 86 / 86 1335 / 1335 1430 / 1430 Microbiology Past 72 Hours 12/10/18 18:00 Stool Occult Blood (ESTEFANIA) - Final Stool 12/07/18 21:25 Blood Culture - Preliminary Blood Culture (Wb) - Right Wrist No growth in 48 hours. 12/07/18 20:20 Blood Culture - Preliminary Blood Culture (Wb) - Anticubital Right No growth in 48 hours. Laboratory Tests Past 24 Hrs 12/11/18 06:50 WBC 7.2 RBC 3.94 L Hgb 10.0 L Hct 33.1 L MCV 84.0 MCH 25.4 L MCHC 30.2 L RDW Std Deviation 48.2 H RDW Coeff of El 15.9 H Plt Count 274 MPV 9.2 Immature Gran % (Auto) 3.000 H Neut % (Auto) 83.3 H Lymph % (Auto) 7.6 L Appling % (Auto) 6.0 Eos % (Auto) 0.0 Baso % (Auto) 0.1 Absolute Neuts (auto) Not Reportable Absolute Lymphs (auto) 0.55 L Absolute Nucleated RBC 0.00 Nucleated RBC % 0 Hypochromasia 1+ POC Glucose 12/11/18 12/11/18 12/11/18 15:47 11:08 06:36 POC Glucose 180 H 83 92 12/10/18 22:22 POC Glucose 66 L Medical Necessity - Tobacco Use Smoking Status: Former smoker Assessment/Plan All Active Problems (Last Reviewed 12/08/18 @ 03:44 by Garrett Whitley MD) New onset a-fib (Acute) History of repair of thoracic aortic aneurysm (Resolved 12/11/09) H/O aortic valve replacement (Resolved 12/11/09) Acute on chronic respiratory failure with hypoxia and hypercapnia (Resolved) Bilateral lower leg cellulitis (Resolved) CAP (community acquired pneumonia) (Resolved) CHF exacerbation (Resolved) Hyperkalemia (Resolved) Hypoglycemia (Resolved) Hypoglycemia (Resolved) Hypomagnesemia (Resolved) Hyponatremia (Resolved) Pulmonary embolism on right (Resolved) Shortness of breath (Resolved) Tobacco abuse (Resolved) Wheezing (Resolved) #1 new onset atrial fibrillation-converted to sinus rhythm at this time, continue to observe, I do not feel the patient is a candidate for full anticoagulation due to his unexplained anemia #2 iron deficiency anemia-etiology unclear, possibly secondary to occult blood loss versus nutritional, patient will be given IV Venofer again tomorrow, patient will undergo colonoscopy tomorrow, Hemoccults on the patient's stool this admission was negative #3 COPD exacerbation-continue present care, Solu-Medrol was stopped #4 generalized weakness-secondary to iron deficiency anemia, COPD, and generalized debility-PT and OT will see the patient, he will need temporary placement in a nursing home facility #5 type 2 diabetes-blood sugar will be monitored #6 morbid obesity-complicates care and recovery. #7 chronic hypoxic respiratory failure-monitor pulse ox, patient is currently on 2-1/2 L via nasal cannula #8 essential hypertension #9 chronic diastolic congestive heart failure-continue present medications #10 cognitive impairment-probably secondary to undiagnosed dementia Code Visit Inpatient E&M: 05704 Subs Hosp L2
[2018-12-11] MEDS: Doxazosin 4 MG Tablet 8 MG PO (22:25)
[2018-12-11] MEDS: Atorvastatin Calcium 40 MG Tablet PO (22:25)
[2018-12-11 22:40] LABS: Bedside Glucose 139 mg/dL (70-110)
[2018-12-12] VITALS (38 sets, daily range): BP systolic 97–160; BP diastolic 57–87; PULSE 53–88; RESP 12–40; TEMP 36.2–37; O2SAT 80–100; BMI 53.9
[2018-12-12 06:50] LABS: Bedside Glucose 91 mg/dL (70-110)
[2018-12-12] MEDS: Ipratropium/Albuterol Sulfate 3 ML AMPUL.NEB INHALATION ×3 (06:59→19:24)
--- NOTE | 2018-12-12 07:07 | CPS ---
Pt states reason he did not wear bipap overnight is due to mask discomfort. Patient states he has own PAP at home. When given option to have someone bring in his home PAP for him to use, patient refused.
[2018-12-12 07:10] LABS: Hematocrit 30.1 % (40-54); Hemoglobin 8.8 g/dL (13.0-16.5)
--- NOTE | 2018-12-12 07:44 | NURSING ---
GAVE REPORT TO CAMACHO NICOLE, FACE TO FACE AT BEDSIDE.
--- NOTE | 2018-12-12 08:05 | COLBX_PTH ---
PATIENT: KELLEE IYER LOC: [facility] U#:[id number] AGE/SX: 73/M ROOM: [facility] RE12/07/[address]: Dr. Varun Aguilar DO : 1945 BED: 1 DIS: 12/13/2018 SPEC #: [id number] RECD: 12/12/18 10:07 STATUS: GAY REQ #: [id number] FREDI: 12/12/18 08:[address]: Akila Jose DEPT: SURGICAL PATHOLOGY RECD BY: Thaddeus Desai ENTERED: 12/13/18 08:09 SP TYPE: COLON BX OTHR DR: MD Dr. Varun Arce DO Dr. Victor Velasquez, MD Tissues: A - Ascending colon B - Ascending colon C - Ascending colon D - Transverse colon E - Transverse colon Procedures: Surgery Specimen Level IV Comments: @ Ordering doctor for SUIV edited from to @ by ANABEL at 12/13/18 0809 @ Submitting doctor edited from to @ by ANABEL at 12/13/18 0809 HEADER OPERATION: Colonoscopy (MAC) PRE-OP DIAGNOSIS: Anemia TISSUE SUBMITTED: A - Ascending polyp (1) and polyp biopsy (2), B - Ascending polyp, C - Ascending polyp, D - Transverse polyp biopsy, E - Transverse polyp MICROSCOPIC DIAGNOSIS A. Ascending polyp (1) and polyp biopsy (2): Fragments of tubular adenoma. B. Ascending colon polyp, biopsy: Fragments of tubular adenoma. C. Ascending colon polyp, biopsy: Fragments of tubular adenoma. D. Transverse colon polyp, biopsy: Fragments of tubular adenoma. E. Transverse colon polyp, biopsy: Fragments of tubular adenoma. SJ:aurora 12/14/18 MICROSCOPIC DESCRIPTION Slides are reviewed. GROSS DESCRIPTION A - Received in fixative is one container labeled with the patient's name and designated ascending polyp (1) and polyp biopsy (2). The specimen consists of multiple irregular fragments of light malagon soft tissue that in aggregate measure 1 x 0.5 x 0.1 cm. The specimen is totally submitted in one cassette. B - Received in fixative is one container labeled with the patient's name and designated ascending polyp. The specimen consists of multiple irregular fragments of light malagon soft tissue that in aggregate measure 0.7 x 0.4 x 0.3 cm. The specimen is totally submitted in one cassette. C - Received in fixative is one container labeled with the patient's name and designated ascending polyp. The specimen consists of two fragments of malagon-pink polyp that in aggregate measure 1.5 x 0.5 x 0.3 cm. The specimen is totally submitted in one cassette. D - Received in fixative is one container labeled with the patient's name and designated transverse polyp biopsy. The specimen consists of two irregular fragments of light malagon soft tissue that in aggregate measure 0.4 x 0.2 x 0.1 cm. The specimen is totally submitted in one cassette. E - Received in fixative is one container labeled with the patient's name and designated transverse polyp. The specimen consists of a piece of malagon-pink polyp measuring 1 x 0.7 x 0.4 cm. Also present in the container is a small piece of malagon-pink soft tissue measuring 0.3 x 0.2 x 0.1 cm. The specimen is totally submitted in one cassette. / SJ:rg 12/13/18 TC:1 CPT: 08288 x5
--- NOTE | 2018-12-12 09:18 | OP.ENDO_ITS ---
12/12/2018 Jack Verdugo [address] [place] [address] Re : Colonoscopy procedure for Everett Leal Dear Dr. Verdugo This procedure was performed on Wednesday, December 12, 2018. My impressions and recommendations are as follows: Impressions : - Hemorrhoids found on perianal exam. - Three polyps in the transverse colon, removed with a hot snare. Resected and retrieved. - Two less than 5 mm polyps in the transverse colon and in the ascending colon, removed with a cold biopsy forceps. Resected and retrieved. - One 7 to 8 mm polyp in the transverse colon, removed piecemeal using a hot snare. Resected and retrieved. - External and internal hemorrhoids. Recommendations : - Return patient to hospital pat for ongoing care. - Cardiac diet. - Continue present medications. - Repeat colonoscopy in 1 year for surveillance based on pathology results, for piecemeal resection of transverse polyp with snare. My findings are described in the full procedure note, which is enclosed. If I can be of further assistance, please feel free to contact me at Doctor phone number(s): , Work: . Sincerely, MD Akila Srivastava MD 12/12/2018 9:17:31 AM This report has been signed electronically.
[2018-12-12] MEDS: Furosemide 40 MG/4 ML Vial IV (09:32)
--- NOTE | 2018-12-12 09:32 | RAD_ITS ---
STUDY: X-RAY CHEST REASON FOR EXAM: Male, 73 years old. Postop TECHNIQUE: Single AP portable view of the chest. COMPARISON: 10/07/2018 chest x-ray FINDINGS: There is opacity both lower lobes. There is no demonstrated pleural abnormality. There is moderate cardiac enlargement sternotomy wires are seen midline. There is a mildly prominent appearance of the mediastinum. There is a prominent appearance of the central vascular markings. There is atherosclerotic calcification of the aortic arch with tortuosity. There are diffuse degenerative changes of the visualized thoracic spine. Normal visualized ribs, clavicles, and shoulders. There is no demonstrated abnormality of the visualized soft tissue structures of the upper abdomen. RAD/Chest 1 View (Portable) IMPRESSION: Right greater than left pleural effusion and atelectasis. Findings suspicious for left lower lobe atelectasis and effusion. Status post sternotomy. Cardiomegaly. Electronically Signed: Melissa Wright MD at 10:22 EDT Tel , Service support ,
--- NOTE | 2018-12-12 09:43 | CPS ---
Pt placed on AVAPS in PACU; verbal order from Dr. Taylor.
[2018-12-12] MEDS: Sertraline 100 MG Tablet PO (10:54)
[2018-12-12] MEDS: Metoprolol Tartrate 50 MG Tablet PO ×2 (10:54→22:10)
[2018-12-12] MEDS: Magnesium Oxide 400 MG Tablet 200 MG PO ×2 (10:54→22:09)
[2018-12-12] MEDS: Finasteride 5 MG Tablet PO (10:54)
[2018-12-12] MEDS: Pantoprazole Sodium 40 MG Tablet PO (10:54)
[2018-12-12] MEDS: Allopurinol 300 MG Tablet PO (10:54)
[2018-12-12] MEDS: Spironolactone 25 MG Tablet PO (10:54)
[2018-12-12] MEDS: guaiFENesin 1,200 MG Tablet 1200 MG PO ×2 (10:54→22:11)
[2018-12-12] MEDS: Losartan Potassium 100 MG Tablet PO (10:54)
[2018-12-12] MEDS: Metolazone 2.5 MG Tablet PO (10:54)
[2018-12-12] MEDS: Ferrous Sulfate 325 MG Tablet PO (10:55)
[2018-12-12] MEDS: Nystatin Powder 15gm Bottle 1 APPLIC TOPICAL ×2 (10:55→22:11)
[2018-12-12 11:46] LABS: Bedside Glucose 104 mg/dL (70-110)
[2018-12-12] MEDS: 0.9% NaCl Peripheral Flush Adult/Peds IV ×2 (12:13→19:47)
--- NOTE | 2018-12-12 15:05 | NURSING ---
This RN is taking over care for Eusebio Saavedra at this time. Received bedside report
--- NOTE | 2018-12-12 15:17 | CPS ---
TREATMENT GIVEN IN PACU PER DR. CASIANO. PT WAS VERY SOB AFTER HIS COLONOSCOPY WITH COARSE CRACKLES THROUGHOUT. HIS PULSE OX WAS IN THE LOW TO MID 80'S ON A NRB MASK. PT WAS PLACED ON BIPAP AFTER THE TX.
[2018-12-12 16:50] LABS: Bedside Glucose 110 mg/dL (70-110)
--- NOTE | 2018-12-12 17:55 | PN_ITS ---
Patient Problems: Active and Suspected Problems (Last Reviewed 12/08/18 @ 03:44 by Grarett Whitley MD) New onset a-fib (Acute) Subjective: Patient was seen and examined today, his hemoglobin dropped today, he underwent a colonoscopy which did not show any obvious signs of bleeding. Some polyps were removed but general surgery did not feel that these caused his anemia. Patient has some respiratory insufficiency after his colonoscopy today and for a time was on noninvasive ventilatory management with AVAPS. I have decided not to transfer the patient to TCU at this time due to his respiratory status. I have also decided to transfuse the patient 1 more unit of packed red blood cells and give another infusion of Venofer. - Physical Exam General: Alert, Cooperative, No apparent distress, Well developed HEENT: Atraumatic, PERRLA, EOMI, Normocephalic Oral: Moist Mucosa Neck: Supple, Trachea Midline, Thyroid Normal Size and Texture Lungs: Normal air movement, Diminished Cardiovascular: Regular rate, Regular Rhythm, Normal S1, Normal S2, No murmurs Abdomen: Bowel Sounds Present, Soft, Non Tender, Non-Distended Extremities: No clubbing, No cyanosis, Capillary Refill Less than 3 Seconds, Edema - Generalized edema of both lower legs is noted Skin: No rashes, No breakdown Musculoskeletal: No Tenderness to Palpation of Joints or Extremities Neurological: Cranial nerves II-XII grossly intact, Neuro grossly intact, Sensory exam intact to light touch and pain Psych/Mental Status: Flat Affect, - - Patient exhibits moderate confusion Vital Signs Temp Pulse Resp BP Pulse Ox 97.3 F L 67 22 H 149/79 H 96 12/12/18 17:37 12/12/18 17:37 12/12/18 17:37 12/12/18 17:37 12/12/18 17:37 Oxygen Flow Rate (L/min) 15 Oxygen Delivery Method Bi-pap Weight: 161 kg Body Mass Index (BMI) 53.9 Finger Stick Blood Glucose 171 Intake and Output for Last 24 Hours 12/10/18 12/11/18 12/12/18 23:59 23:59 23:59 Intake Total 3710 / 3710 4280 / 4280 920 / 920 Output Total 2375 / 2375 1925 / 1925 1650 / 1650 Balance 1335 / 1335 2355 / 2355 -730 / -730 Microbiology Past 72 Hours 12/10/18 18:00 Stool Occult Blood (ESTEFANIA) - Final Stool 12/07/18 21:25 Blood Culture - Preliminary Blood Culture (Wb) - Right Wrist No growth in 48 hours. 12/07/18 20:20 Blood Culture - Preliminary Blood Culture (Wb) - Anticubital Right No growth in 48 hours. Laboratory Tests Past 24 Hrs 12/12/18 12/12/18 06:44 12:25 Hgb 8.8 L Hct 30.1 L Blood Type A POSITIVE Antibody Screen NEGATIVE Crossmatch See Detail POC Glucose 12/12/18 12/12/18 12/12/18 16:35 11:27 06:44 POC Glucose 110 104 91 12/11/18 22:32 POC Glucose 139 H Medical Necessity - Tobacco Use Smoking Status: Former smoker Assessment/Plan All Active Problems (Last Reviewed 12/08/18 @ 03:44 by Garrett Whitley MD) New onset a-fib (Acute) History of repair of thoracic aortic aneurysm (Resolved 12/11/09) H/O aortic valve replacement (Resolved 12/11/09) Acute on chronic respiratory failure with hypoxia and hypercapnia (Resolved) Bilateral lower leg cellulitis (Resolved) CAP (community acquired pneumonia) (Resolved) CHF exacerbation (Resolved) Hyperkalemia (Resolved) Hypoglycemia (Resolved) Hypoglycemia (Resolved) Hypomagnesemia (Resolved) Hyponatremia (Resolved) Pulmonary embolism on right (Resolved) Shortness of breath (Resolved) Tobacco abuse (Resolved) Wheezing (Resolved) #1 new onset atrial fibrillation-converted to sinus rhythm at this time, continue to observe, I do not feel the patient is a candidate for full anticoagulation due to his unexplained anemia #2 iron deficiency anemia-etiology unclear, possibly secondary to occult blood loss versus nutritional, patient will be given IV Venofer again today, he was given 1 unit of packed red blood cells today, recheck H&H #3 COPD exacerbation-continue present care #4 generalized weakness-secondary to iron deficiency anemia, COPD, and generalized debility-patient is awaiting placement in a intermediate facility #5 type 2 diabetes-blood sugar will be monitored #6 morbid obesity-complicates care and recovery. #7 chronic hypoxic respiratory failure-monitor pulse ox, patient is currently on BiPAP #8 essential hypertension #9 chronic diastolic congestive heart failure-I placed the patient on IV Lasix and readjusted his oral diuretic, recheck BMP #10 cognitive impairment-probably secondary to undiagnosed dementia Code Visit Inpatient E&M: 17555 Subs Hosp L2
[2018-12-12] MEDS: Furosemide 20 MG/2 ML VIAL IV ×2 (19:46→19:47)
[2018-12-12] MEDS: Doxazosin 4 MG Tablet 8 MG PO (22:09)
[2018-12-12] MEDS: Atorvastatin Calcium 40 MG Tablet PO (22:10)
[2018-12-12 22:30] LABS: Bedside Glucose 112 mg/dL (70-110)
[2018-12-13] VITALS (8 sets, daily range): BP systolic 99–133; BP diastolic 61–68; PULSE 63–85; RESP 12–27; TEMP 36.7–36.9; O2SAT 96–98
[2018-12-13] MEDS: Ipratropium/Albuterol Sulfate 3 ML AMPUL.NEB INHALATION ×2 (01:19→07:17)
[2018-12-13 06:01] LABS: Hematocrit 35.3 % (40-54); Hemoglobin 10.7 g/dL (13.0-16.5)
[2018-12-13 06:21] LABS: Anion Gap 7 (5-15); BUN 24 mg/dL (7-18); BUN/Creat Ratio 20.3 RATIO (10-20); Calcium,Total 8.3 mg/dL (8.5-10.1); Chloride 95 mmol/L (98-107); Creatinine, Serum 1.18 mg/dL (0.70-1.30); EST Glomerular Filtration Rate 64 mL/min (>60); Est Glom Filt Rate - Afr Amer 77 mL/min (>60); Estimated Creatinine Clearance 52.33 ml/min; Glucose 103 mg/dL (74-106); Potassium 3.8 mmol/L (3.5-5.1); Sodium Level 139 mmol/L (136-145)
[2018-12-13 07:01] LABS: Bedside Glucose 102 mg/dL (70-110)
[2018-12-13] MEDS: Ferrous Sulfate 325 MG Tablet PO (08:45)
[2018-12-13] MEDS: Spironolactone 50 MG Tablet PO (08:46)
[2018-12-13] MEDS: Losartan Potassium 100 MG Tablet PO (08:46)
[2018-12-13] MEDS: Metoprolol Tartrate 50 MG Tablet PO (08:46)
[2018-12-13] MEDS: Allopurinol 300 MG Tablet PO (08:46)
[2018-12-13] MEDS: guaiFENesin 1,200 MG Tablet 1200 MG PO (08:47)
[2018-12-13] MEDS: Magnesium Oxide 400 MG Tablet 200 MG PO (08:47)
[2018-12-13] MEDS: Nystatin Powder 15gm Bottle 1 APPLIC TOPICAL (08:47)
[2018-12-13] MEDS: Furosemide 20 MG/2 ML VIAL IV (08:47)
[2018-12-13] MEDS: Metolazone 2.5 MG Tablet PO (08:48)
[2018-12-13] MEDS: Pantoprazole Sodium 40 MG Tablet PO (08:48)
[2018-12-13] MEDS: Finasteride 5 MG Tablet PO (08:48)
[2018-12-13] MEDS: Sertraline 100 MG Tablet PO (08:48)
[2018-12-13] MEDS: 0.9% NaCl Peripheral Flush Adult/Peds IV (08:54)
--- NOTE | 2018-12-13 10:41 | NURSING ---
wound photo: left lower leg
--- NOTE | 2018-12-13 10:42 | NURSING ---
wound photo: right lower leg
--- NOTE | 2018-12-13 11:35 | PCM.TXEXTCAR ---
- Diet 12/13/18 05:49 Diet: 2000-calorie ADA Food consistency:: Regular Liquid Consistency:: Regular/Thin Is pt able to select menu?: Yes - Routine Orders/Code Status O2 Liters per Minute: 3 O2 Frequency: bipap when sleeping 18/12 35 % oxygen rate 12 Routine Lab Work: CBC - weekly starting 12/16/18, BMP - On 12/16/2018, - - Fingerstick blood sugar fasting and 4 PM daily-notify attending if blood sugar greater than 180 Code Status: Full Code - Wound(s) L denney #1 Wound Type: ulcer L denney #2 Wound Type: Ulcer L denney #3 Wound Type: Ulcer R Denney Wound Type: scattered superficial stasis ulcers Dressing Change: Adaptic L denney Wound Type: scattered superficial stasis ulcers Dressing Change: Adaptic - Therapies Weight Bearing: Full weight bearing Physical Therapy: Eval and Treat Occupational Therapy: Eval and Treat - Problem/Diagnosis (1) Iron deficiency anemia Status: Chronic Comment: etology unknown Current Visit: Yes (2) COPD with exacerbation Status: Chronic Current Visit: Yes (3) New onset a-fib Status: Acute Comment: Converted to sinus rhythm Current Visit: Yes (4) Chronic respiratory failure with hypoxia and hypercapnia Status: Chronic Current Visit: No (5) Essential (primary) hypertension Status: Chronic Current Visit: No (6) Chronic diastolic heart failure Status: Chronic Current Visit: No (7) Hyperlipidemia Status: Chronic Current Visit: No (8) Lymphedema of leg Status: Chronic Current Visit: No - Allergies/Procedures Done in Hospital Allergies/Adverse Reactions: Allergies naphazoline HCl [From Naphcon] Allergy (Severe, Verified 12/08/18 00:29) affected his breathing AFFECTED HIS BREATHING amlodipine besylate [From Norvasc] Allergy (Verified 12/08/18 00:29) Other dextromethorphan Allergy (Verified 12/08/18 00:29) Other levofloxacin [From Levaquin] Adverse Reaction (Mild, Verified 12/08/18 00:29) made me hyperactive made me hyperactive Procedures: 2-D Echocardiogram, Colonoscopy - Type of Care/Length of Stay Estimated LOS: Convalescent Care Less Than 30 days Type of Care Needed: Skilled Rehab Potential: Good Prognosis: Good - Additional Orders/Day of Discharge H&P will serve as current which was dated: 12/07/18 Day of Discharge: 12/13/18 - Dietary and Speech Recommendations Dietitian Recommendations/Changes: Recommend 2,000 calorie controlled;cardiac diet. Recommend adding Rafael 1 packet BID--wound healing. - Follow Up Care Primary Care Physician: Jack Verdugo MD [Primary Care Provider] -
[2018-12-13 11:46] LABS: Bedside Glucose 149 mg/dL (70-110)
--- NOTE | 2018-12-13 12:50 | NURSING ---
Addendum entered by Flaquita Cotto 12/13/18 12:59: TCU RN stated for us to leave IV in place at this time Original Note: called report to TCU & spoke with COREY Martin
--- NOTE | 2018-12-13 14:02 | CASEMGMT ---
Patient is ready for discharge to TCU today. SW spoke with patient and let him know. He asked that SW notify his . SW called patient's and let her know patient will be discharged to TCU today. Plan: d/c to [facility] TCU under skilled level of care Brooke WILLOUGHBY
--- NOTE | 2018-12-16 07:45 | DS.PCM_ITS ---
Discharge Date and Diagnosis - Problem List Patient Problems: Active and Suspected Problems (Last Reviewed 12/08/18 @ 03:44 by Garrett Whitley MD) Debility (Acute) Acute on chronic diastolic heart failure (Acute) Date of Admission: 12/07/18 Date of Discharge: 12/13/18 - Primary Discharge Diagnosis Active and Suspected Problems (Last Reviewed 12/08/18 @ 03:44 by Garrett Whitley MD) #1 new onset atrial fibrillation-converted to sinus rhythm #2 Chronic iron deficiency anemia-etiology unclear, requiring blood transfusion #3 COPD exacerbation- #4 generalized weakness-secondary to iron deficiency anemia, COPD, morbid o besity, and generalized debility #5 type 2 diabetes #6 morbid obesity #7 Acute on chronic hypoxic respiratory failure #8 essential hypertension #9 chronic diastolic congestive heart failure #10 cognitive impairment-probably secondary to undiagnosed dementia #11 chronic stasis dermatitis changes to both lower extremities with superficial ulcerations - Secondary Discharge Diagnosis Chronic Problems (Last Reviewed 12/08/18 @ 03:44 by Garrett Whitley MD) COPD with exacerbation (Chronic) Pickwickian syndrome (Chronic) Iron deficiency anemia (Chronic) etology unknown COPD (chronic obstructive pulmonary disease) (Chronic) Obstructive sleep apnea (Chronic) Super obesity (Chronic) Hypertension (Chronic) Thoracic aortic aneurysm (Chronic) Lymphedema (Chronic) Gout (Chronic) BPH (benign prostatic hyperplasia) (Chronic) Hypomagnesemia (Chronic) Diabetes mellitus (Chronic) Chronic respiratory failure with hypoxia and hypercapnia (Chronic) Essential (primary) hypertension (Chronic) Chronic diastolic heart failure (Chronic) Thoracic aortic aneurysm without rupture (Chronic) Status post ascending and proximal arch aneurysm replaced with a Hemashield graft and shayan-arch repair; Hyperlipidemia (Chronic) Lymphedema of leg (Chronic) Hospital Course and Treatment Consultations 12/08/18 00:09 Consult: Onc/Wound/digital media sales consultant Routine Comment: Comments:: bilateral leg wounds + lymphedema Operations: None Procedures: Colonoscopy Summary of Care Provided: The patient is a 73 year old M who was seen in the emergency room at [facility] with generalized weakness. He also complained of shortness of breath. Patient is on home O2. Work-up in the emergency room included an EKG which showed the patient to be in atrial fibrillation with a rate of 102- this was a new rhythm for the patient. Hemoglobin was 6.7, troponin 0.016. Patient was given albuterol aerosols, chest x-ray showed cardiomegaly with mild pulmonary venous congestion. Patient was admitted to PCU for new onset A. fib, generalized weakness, and anemia. Patient was maintained on aerosol treatments, given IV diuretics, and required blood transfusion. Patient was noted to be iron deficient was given iron infusions. Patient is atrial fibrillation resolved that he return to sinus rhythm. He was seen by PT and OT as well as general surgery who performed a colonoscopy which did not reveal any obvious bleeding sites, small polyps were removed but were not felt to be the etiology of his anemia. Patient was intermittently on CPAP and had to be placed on a AVAPS due to acute on chronic hypoxic respiratory failure after his colonoscopy. This is only for short period of time. Patient was felt to be candidate for short-term inpatient [facility] and he consented to go to [facility]. I had conversations with his -it is probable the patient has undiagnosed dementia. On 12/13/2018, patient was seen and examined: On examination he appeared in good health and spirits. Vital signs as documented. Skin warm and dry and without overt rashes. Neck without JVD. Lungs-breath sounds are diminished bilaterally, occasional expiratory rhonchi are noted. Heart exam notable for regular rhythm, normal sounds and absence of murmurs, rubs or gallops. Abdomen unremarkable and without evidence of organomegaly, masses, or abdominal aortic enlargement. Extremities - chronic stasis changes are noted to both lower extremities. Neuro: Cranial nerves II through XII are grossly intact, no focal motor deficits were noted, sensation to light touch and pinprick intact. Psych: Patient is alert with mild confusion, he does not appear anxious or depressed /, patient was seen and examined and felt to be in stable condition for transfer to [facility] facility. Patient Problems: Active and Suspected Problems (Last Reviewed 12/08/18 @ 03:44 by Garrett Whitley MD) Debility (Acute) Acute on chronic diastolic heart failure (Acute) - Physical Exam Vital Signs Temp Pulse Resp BP Pulse Ox 98.5 F 69 22 H 133/61 H 96 12/13/18 14:30 12/13/18 14:30 12/13/18 14:30 12/13/18 14:30 12/13/18 14:30 Oxygen Flow Rate (L/min) 3 Oxygen Delivery Method Nasal Cannula Weight: 161 kg Body Mass Index (BMI) 53.9 Finger Stick Blood Glucose 171 Microbiology Past 72 Hours 12/07/18 21:25 Blood Culture - Final Blood Culture (Wb) - Right Wrist No growth in 5 days. 12/07/18 20:20 Blood Culture - Final Blood Culture (Wb) - Anticubital Right No growth in 5 days. Home Medications: Medications to take at Discharge Allopurinol [Zyloprim] 300 mg PO DAILY 06/15/18 Clopidogrel Bisulfate [Plavix] 75 mg PO DAILY 06/15/18 Ferrous Sulfate 325 mg PO DAILY 06/15/18 Finasteride [Proscar] 5 mg PO DAILY 06/15/18 Magnesium 250 mg PO BID 06/15/18 Metolazone [Zaroxolyn] 2.5 mg PO DAILY 06/15/18 Metoprolol Tartrate [Lopressor (beta maryam)] 50 mg PO BID 06/15/18 Sertraline HCl [Zoloft] 100 mg PO DAILY 06/15/18 Spironolactone [Aldactone] 25 mg PO BID 06/15/18 Acetaminophen [Tylenol Tablet] 650 mg PO Q6H PRN PRN tab 06/17/18 Atorvastatin Calcium 40 mg PO QHS 12/07/18 Losartan Potassium 100 mg PO DAILY 12/07/18 Terazosin HCl 10 mg PO QHS 12/07/18 Albuterol Aerosols [Ventolin Aerosols] 2.5 mg INHALATION Q2H PRN PRN vial.neb. 12/13/18 Budesonide/Formoterol 160/4.5 [Symbicort 160/4.5 Mcg Inhaler (SP)] 2 puff INHALATION BID 12/13/18 Furosemide [Lasix] 40 mg PO DAILY 12/13/18 Glimepiride [Amaryl] 2 mg PO DAILY 12/13/18 Ipratropium/Albuterol Sulfate [Duoneb] 3 ml INHALATION Q6HWA.RT 12/13/18 Nystatin Powder [Mycostatin Powder] 1 applic TOPICAL BID 12/13/18 Pantoprazole Sodium [Protonix] 40 mg PO DAILY 12/13/18 Primary Care Physician: Jack Verdugo MD [Primary Care Provider] - Disposition: Half-Way facility Minutes spent on discharge:: 39 Patient Condition:: Stable Medical Necessity - Tobacco Use Smoking Status: Former smoker Meaningful Use Info Meaningful Use Diagnoses (Choose all that apply): None applicable Code Visit Inpatient E&M: 41325 Disch Hosp
== END 2018-12-13 14:50 | disposition skilled nursing facility (03) | DRG 308 ==
LOC: ED 20:28 → PCU 23:57
PROVIDERS: Surgery; Admitting Provider Hospitalist; Emergency Provider Emergency Medicine; Family Provider Internal Medicine; PCP Internal Medicine; Referring Provider Hospitalist; Visit Provider Internal Medicine
PROC: 0DJD8ZZ Inspection of Lower Intestinal Tract, Via Natural or Artificial Opening Endoscopic (ICD-10-PCS; CPT 45378; principal; 2018-12-12 08:00)
DX: I48.91 Unspecified atrial fibrillation (principal); J96.21 Acute and chronic respiratory failure with hypoxia; Z68.43 Body mass index [BMI] 50.0-59.9, adult; I50.32 Chronic diastolic (congestive) heart failure; J44.1 Chronic obstructive pulmonary disease with (acute) exacerbation; G47.33 Obstructive sleep apnea (adult) (pediatric); I89.0 Lymphedema, not elsewhere classified; K64.9 Unspecified hemorrhoids; K63.5 Polyp of colon; D50.9 Iron deficiency anemia, unspecified; Z99.81 Dependence on supplemental oxygen; I11.0 Hypertensive heart disease with heart failure; I87.2 Venous insufficiency (chronic) (peripheral); E66.01 Morbid (severe) obesity due to excess calories; R53.81 Other malaise; F03.90 Unspecified dementia, unspecified severity, without behavioral disturbance, psychotic disturbance, mood disturbance, and anxiety; N40.0 Benign prostatic hyperplasia without lower urinary tract symptoms; Z87.891 Personal history of nicotine dependence; M10.9 Gout, unspecified
CPT/HCPCS: 36415; 71045; 71260; 73560; 80048; 81001; 82274; 82962; 83540; 83550; 83605; 83735; 84443; 84484; 85014; 85018; 85025; 86850; 86900; 86920; 86922; 87040; 87633; 88305; 93005; 93306; 94002; 94003; 94640; 94667; 94668; 97110; 97163; 97166; 97530; 97535; 97802; 99285; J1756; J7040; P9016; Q9957; Q9967; A4216; C8929; J1940

== ENCOUNTER 2018-12-13 15:00 | Inpatient (IN) | payer MEDICARE, BC, SELFPAY ==
[2018-12-12 07:33] VITALS: BMI 53.9
[2018-12-13] VITALS (7 sets, daily range): BP systolic 141; BP diastolic 60–71; PULSE 66–80; RESP 12–26; TEMP 36.7; O2SAT 92–96; BMI 51.2
--- NOTE | 2018-12-13 15:42 | NURSING ---
R' ARRIVED FROM [facility] AT 1500.
--- NOTE | 2018-12-13 16:28 | NURSING ---
PT ARRIVED TO FLOOR AT 1500 BY BED.
[2018-12-13] MEDS: Furosemide 40 MG/4 ML Vial IV (17:01)
[2018-12-13 17:25] LABS: Bedside Glucose 177 mg/dL (70-110)
[2018-12-13] MEDS: Metoprolol Tartrate 50 MG Tablet PO (18:17)
[2018-12-13] MEDS: Spironolactone 25 MG Tablet PO (18:17)
[2018-12-13] MEDS: Magnesium Oxide 400 MG Tablet PO (18:17)
[2018-12-13] MEDS: Fluticasone/Salmeterol 232-14 Inhaler 1 PUFF IH (18:18)
[2018-12-13] MEDS: guaiFENesin 1,200 MG Tablet 1200 MG PO (18:34)
[2018-12-13] MEDS: Ipratropium/Albuterol Sulfate 3 ML AMPUL.NEB INHALATION (19:35)
--- NOTE | 2018-12-13 21:14 | HP.PCM_ITS ---
Problem List (1) Debility Status: Acute (2) COPD (chronic obstructive pulmonary disease) Status: Chronic (3) Obstructive sleep apnea Status: Chronic (4) Super obesity Status: Chronic (5) Hypertension Status: Chronic (6) Acute on chronic diastolic heart failure Status: Acute (7) Thoracic aortic aneurysm Status: Chronic (8) Lymphedema Status: Chronic (9) Gout Status: Chronic (10) BPH (benign prostatic hyperplasia) Status: Chronic (11) Hypomagnesemia Status: Chronic (12) Diabetes mellitus Status: Chronic (13) New onset a-fib Status: Acute Comment: Converted to sinus rhythm (14) Iron deficiency anemia Status: Chronic Comment: etology unknown (15) Hyperlipidemia Status: Chronic History of Present Illness Date of Admission: 12/13/18 Chief Complaint: Here for rehabilitation, strengthening, prior to discharge home with spouse. The patient is a 73 year old Male with below past medical history presented to [facility] Emergency Department 12/07/2018 with generalized weakness. 12/07/2018 EKG showed atrial fibrillation with rapid ventricular response, nonspecific T wave abnormality. 12/07/2018 X-ray left knee showed significant arthritis, swelling. 12/07/2018 Chest X-ray showed stable cardiomegaly, mild pulmonary congestion, right basilar consolidation versus atelectasis, CT recommended. Shortness of breath x few days, unable to get off toilet. He is unable to get off toilet frequently, squad called, usually declines transfer to hospital. Too weak to stand. Chronic left knee pain. Productive cough. Edema, chronic bilateral lower extremity wounds. Hemoglobin 6.7. Albuterol given. 12/07/2018 Admit to Hospital for placement. Replete electrolytes for atrial fibrillation, no anticoagulation secondary to anemia. Solu-Medrol given for COPD exacerbation. IV Protonix for anemia. 12/08/2018 Echo showed normal LV size. Left ventricular systolic function normal. EF 55% 12/08/2018 CT chest small right pleural effusion, underlying infiltrate. 12/12/2018 Dr. Jose performed colonoscopy. Polyps removed. 12/12/2018 Chest X-ray showed right > left pleural effusion, left lower lobe atelectasis, effusion. Venofer IV, 1 unit PRBC transfusion for anemia. Lasix IV for acute on chronic diastolic heart failure. 12/13/2018 Admit to TCU with debility, generalized weakness secondary to cardiopulmonary status, here for rehabilitation, strengthening, prior to discharge home with spouse. Past Medical History Past Medical History (Chronic Problems): Chronic Problems (Last Reviewed 12/08/18 @ 03:44 by Garrett Whitley MD) COPD with exacerbation (Chronic) Pickwickian syndrome (Chronic) Iron deficiency anemia (Chronic) etology unknown COPD (chronic obstructive pulmonary disease) (Chronic) Obstructive sleep apnea (Chronic) Super obesity (Chronic) Hypertension (Chronic) Thoracic aortic aneurysm (Chronic) Lymphedema (Chronic) Gout (Chronic) BPH (benign prostatic hyperplasia) (Chronic) Hypomagnesemia (Chronic) Diabetes mellitus (Chronic) Chronic respiratory failure with hypoxia and hypercapnia (Chronic) Essential (primary) hypertension (Chronic) Chronic diastolic heart failure (Chronic) Thoracic aortic aneurysm without rupture (Chronic) Status post ascending and proximal arch aneurysm replaced with a Hemashield graft and shayan-arch repair; Hyperlipidemia (Chronic) Lymphedema of leg (Chronic) Medical History: Medical History (Last Reviewed 12/08/18 @ 03:44 by Garrett Whitley MD) Chronic respiratory failure with hypoxia and hypercapnia (Chronic) J96.11, J96.12 Essential (primary) hypertension (Chronic) I10 Chronic diastolic heart failure (Chronic) I50.32 Thoracic aortic aneurysm without rupture (Chronic) I71.2 Status post ascending and proximal arch aneurysm replaced with a Hemashield graft and shayan-arch repair; Hyperlipidemia (Chronic) E78.5 Lymphedema of leg (Chronic) I89.0 BPH w/o urinary obs/LUTS N40.0 COPD (chronic obstructive pulmonary disease) J44.9 Chronic anemia D64.9 Chronic kidney disease, stage 2 (mild) N18.2 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 GERD (gastroesophageal reflux disease) K21.9 History of pulmonary embolism Z86.711 Iron deficiency anemia D50.9 Lymphedema I89.0 Morbid obesity E66.01 Obstructive sleep apnea G47.33 Osteoarthritis M19.90 Tinea unguium B35.1 Ulcer of left lower extremity with fat layer exposed L97.922 Ulcer of right lower extremity with fat layer exposed L97.912 Venous insufficiency I87.2 Ventral hernia K43.9 Acute on chronic respiratory failure with hypoxia and hypercapnia (Resolved) J96.21, J96.22 Acute on chronic respiratory failure with hypoxia and hypercapnia J96.21, J96.22 Adynamic ileus K56.0 CAP (community acquired pneumonia) (Resolved) J18.9 The patient appropriately completed antibiotics and prednisone as prescribed. He has no further signs and symptoms of persistent pneumonia. No indication for any further testing at this time. Patient will be eligible for Pneumovax 23 in approximately 6 months. He states that his PCP is very good at keeping track of his immunizations and when they are due. CHF exacerbation (Resolved) I50.9 Hypoglycemia (Resolved) E16.2 Pulmonary embolism on right (Resolved) I26.99 Tobacco abuse (Resolved) Z72.0 Wheezing (Resolved) R06.2 Edema of both legs (Inactive) R60.0 Immobility (Inactive) Z74.09 Leg swelling (Inactive) M79.89 Multiple excoriations (Inactive) T14.8 Nausea and vomiting (Inactive) R11.2 Tinea unguium (Inactive) B35.1 Allergies naphazoline HCl [From Naphcon] Allergy (Severe, Verified 12/08/18 00:29) affected his breathing AFFECTED HIS BREATHING amlodipine besylate [From Norvasc] Allergy (Verified 12/08/18 00:29) Other dextromethorphan Allergy (Verified 12/08/18 00:29) Other levofloxacin [From Levaquin] Adverse Reaction (Mild, Verified 12/08/18 00:29) made me hyperactive made me hyperactive Home Medications: Ambulatory Orders Medication Instructions Recorded Allopurinol [Zyloprim] 300 mg PO DAILY 06/15/18 Clopidogrel Bisulfate [Plavix] 75 mg PO DAILY 06/15/18 Ferrous Sulfate 325 mg PO DAILY 06/15/18 Finasteride [Proscar] 5 mg PO DAILY 06/15/18 Magnesium 250 mg PO BID 06/15/18 Metolazone [Zaroxolyn] 2.5 mg PO DAILY 06/15/18 Metoprolol Tartrate [Lopressor 50 mg PO BID 06/15/18 (beta maryam)] Sertraline HCl [Zoloft] 100 mg PO DAILY 06/15/18 Spironolactone [Aldactone] 25 mg PO BID 06/15/18 Acetaminophen [Tylenol Tablet] 650 mg PO Q6H PRN PRN tab 06/17/18 Atorvastatin Calcium 40 mg PO QHS 12/07/18 Losartan Potassium 100 mg PO DAILY 12/07/18 Terazosin HCl 10 mg PO QHS 12/07/18 Albuterol Aerosols [Ventolin 2.5 mg INHALATION Q2H PRN PRN 12/13/18 Aerosols] vial.neb. Budesonide/Formoterol 160/4.5 2 puff INHALATION BID 12/13/18 [Symbicort 160/4.5 Mcg Inhaler (SP)] Furosemide [Lasix] 40 mg PO DAILY 12/13/18 Glimepiride [Amaryl] 2 mg PO DAILY 12/13/18 Ipratropium/Albuterol Sulfate 3 ml INHALATION Q6HWA.RT 12/13/18 [Duoneb] Nystatin Powder [Mycostatin Powder] 1 applic TOPICAL BID 12/13/18 Pantoprazole Sodium [Protonix] 40 mg PO DAILY 12/13/18 Surgical History: Surgical History (Last Reviewed 12/08/18 @ 03:44 by Garrett Whitley MD) History of repair of thoracic aortic aneurysm (Resolved) Onset Date: 12/11/09 Z98.890, Z86.79 H/O aortic valve replacement (Resolved) Onset Date: 12/11/09 Z95.2 # 29 Freestyle valve H/O hernia repair Z98.890, Z87.19 Surgical History: herniorrhaphy - Large ventral hernia with mesh., - - He has a bioprosthetic aortic valve replacement, abdominal aortic aneurysm repair 2004. Psychiatric History: Anxiety, Depression Lives: Spouse/ Significant Other Smoking Status: Former smoker Tobacco Use: Non-smoker Alcohol: None Drugs: None - *Family History Maternal Family History: Family History (Last Reviewed 12/08/18 @ 03:44 by Garrett Whitley MD) Brother TBI (traumatic brain injury) Sister Ulcerative colitis History Items: Hypertension, - - Patient's father at the age of 94 from old age. Patient's mother at age of 87 with a history of hyperlipidemia and hypertension. Paternal Family History: Family History (Last Reviewed 12/08/18 @ 03:44 by Garrett Whitley MD) Brother TBI (traumatic brain injury) Sister Ulcerative colitis History Items: Hypertension Review of Systems Constitutional: Denies: Chills, Fever, Weight Change HEENT: Denies: Head Aches, Sinus Congestion, Sinus Drainage Cardiovascular: Denies: Chest Pain, Palpitations Respiratory: Reports: Shortness of Breath, Shortness of breath at rest. Denies: Cough, Sputum production Gastrointestinal: Denies: Abdominal Pain, Nausea, Vomiting Genitourinary: Denies: Dysuria Musculoskeletal: Denies: Joint Pain, Joint Tenderness Skin: Denies: Rash, Wounds Neurological: Denies: Numbness, Tingling, Focal weakness Psychiatric: Denies: Anxiety, Depression, Homicidal Ideations, Suicidal Ideations Hematologic/ Lymphatic: Denies: Easy Bruising, Easy Bleeding VTE Information - Inpt Only VTE Present on Admission: No VTE Mechan Device Prophylaxis: Knee High YAHIR Hose VTE Pharm Prophylaxis ordered?: No Reason prophylaxis not ordered:: Medical Contraindication Patient Problems: Active and Suspected Problems (Last Reviewed 12/08/18 @ 03:44 by Garrett Whitley MD) Debility (Acute) Acute on chronic diastolic heart failure (Acute) - Physical Exam General: Alert, Oriented x3, Cooperative HEENT: Atraumatic, PERRLA, EOMI, Normocephalic Neck: Supple, No JVD, Negative Carotid Bruits Lungs: Diminished, Rales, Rhonchi, Short of Breath, Wheezes Cardiovascular: Regular rate, No murmurs Abdomen: Bowel Sounds Present, Soft, Non Tender Extremities: No edema, Capillary Refill Less than 3 Seconds Skin: No rashes, No breakdown Musculoskeletal: No Tenderness to Palpation of Joints or Extremities Neurological: Cranial nerves II-XII grossly intact Psych/Mental Status: Normal Affect, Appropriate Vital Signs Temp Pulse Resp BP Pulse Ox 98.0 F 80 24 H 141/71 H 92 12/13/18 15:29 12/13/18 18:17 12/13/18 16:28 12/13/18 18:17 12/13/18 15:29 Oxygen Flow Rate (L/min) 3 Oxygen Delivery Method Nasal Cannula Weight: 153.1 kg Body Mass Index (BMI) 51.2 Finger Stick Blood Glucose 171 Intake and Output for Last 24 Hours 12/11/18 12/12/18 12/13/18 23:59 23:59 23:59 Intake Total 400 / 400 Output Total 200 / 200 Balance 200 / 200 POC Glucose 12/13/18 17:05 POC Glucose 177 H Assessment/Plan All Active Problems (Last Reviewed 12/08/18 @ 03:44 by Garrett Whitley MD) New onset a-fib (Acute) Debility (Acute) Acute on chronic diastolic heart failure (Acute) History of repair of thoracic aortic aneurysm (Resolved 12/11/09) H/O aortic valve replacement (Resolved 12/11/09) Acute on chronic respiratory failure with hypoxia and hypercapnia (Resolved) Bilateral lower leg cellulitis (Resolved) CAP (community acquired pneumonia) (Resolved) CHF exacerbation (Resolved) Hyperkalemia (Resolved) Hypoglycemia (Resolved) Hypoglycemia (Resolved) Hypomagnesemia (Resolved) Hyponatremia (Resolved) Pulmonary embolism on right (Resolved) Shortness of breath (Resolved) Tobacco abuse (Resolved) Wheezing (Resolved) 73 year old male with below past medical history hospitalized for debility secondary to COPD, new onset atrial fibrillation with RVR, acute on chronic anemia, acute on chronic diastolic heart failure, admitted to TCU with debility, here for rehabilitation, strengthening, prior to discharge home with spouse. * Debility - PT/OT. * Pain - Tylenol 1000MG Q6H PRN mild pain. * Bowel - Miralax 17GM daily, Senna/colace 1 tablet BID, Dulcolax 10MG daily P RN. * Pneumonia vaccination - Administer Prevnar 13 and/or Pneumovax 23 as necessary. * DVT prophylaxis - Hold due to anemia. * COPD - Advair MDI 1 inhalation Q12H, Duoneb 3ML Q3ADNII, Albuterol 2.5MG Q2H PRN, Medrol dose pack. * Gout - Allopurinol 300MG daily. * Hyperlipidemia - Atorvastatin 40MG QHS. * CV prophylaxis - Plavix 75MG daily. * BPH - Finasteride 5MG daily, Doxazosin 8MG QHS. * Iron deficiency anemia - Ferrex 150MG daily. * Acute on chronic diastolic heart failure - Metoprolol 50MG twice daily, Losartan 100MG daily, Aldactone 25MG BID, Lasix 40MG IV x 1 dose, then Lasix 20MG IV twice daily, Metolazone 2.5MG daily. * Diabetes Mellitus II - Glimepiride 2MG daily. * Nutrition - Glucerna 60ML 4x/day. * Congestion - Mucinex 1200MG twice daily. * Hypomagnesemia - Magnesium Oxide 400MG BID * Skin irritation - Calmoseptine BID, Eucerin topical BID PRN. * Tinea Corporis - Nystatin powder BID. * GERD - Pantoprazole 40MG daily. * Depression - Sertraline 100MG daily.
[2018-12-13] MEDS: Menthol/Lanolin/Calamine/Znox 113 GM Tube 1 APPLIC TOPICAL (22:08)
[2018-12-13] MEDS: Glucerna Shake 120 ML LIQUID 60 ML PO (22:09)
[2018-12-13] MEDS: MethylPREDNISolone DosePak 4 MG BOX PO (22:27)
[2018-12-13] MEDS: Nystatin Powder 15gm Bottle 1 APPLIC TOPICAL (22:28)
[2018-12-13] MEDS: Doxazosin 4 MG Tablet 8 MG PO (22:29)
[2018-12-13] MEDS: Atorvastatin Calcium 40 MG Tablet PO (22:30)
[2018-12-14] VITALS (11 sets, daily range): BP systolic 95–136; BP diastolic 47–69; PULSE 57–94; RESP 12–30; TEMP 36.7–37.1; O2SAT 90–98
[2018-12-14] MEDS: Menthol/Lanolin/Calamine/Znox 113 GM Tube 1 APPLIC TOPICAL ×2 (05:30→18:04)
[2018-12-14] MEDS: Nystatin Powder 15gm Bottle 1 APPLIC TOPICAL ×2 (05:30→21:05)
[2018-12-14] MEDS: Senna/Docusate Sodium 1 Tablet PO ×2 (05:31→17:41)
[2018-12-14] MEDS: Sertraline 100 MG Tablet PO (05:32)
[2018-12-14] MEDS: Metolazone 2.5 MG Tablet PO (05:32)
[2018-12-14] MEDS: Losartan Potassium 100 MG Tablet PO (05:32)
[2018-12-14] MEDS: Allopurinol 300 MG Tablet PO (05:33)
[2018-12-14] MEDS: Pantoprazole Sodium 40 MG Tablet PO (05:33)
[2018-12-14] MEDS: Clopidogrel Bisulfate 75 MG Tablet PO (05:33)
[2018-12-14] MEDS: Magnesium Oxide 400 MG Tablet PO ×2 (05:33→17:41)
[2018-12-14] MEDS: guaiFENesin 1,200 MG Tablet 1200 MG PO ×2 (05:34→17:41)
[2018-12-14] MEDS: Finasteride 5 MG Tablet PO (05:34)
[2018-12-14] MEDS: Spironolactone 25 MG Tablet PO ×2 (05:34→17:41)
[2018-12-14] MEDS: Fluticasone/Salmeterol 232-14 Inhaler 1 PUFF IH ×2 (05:35→17:38)
[2018-12-14] MEDS: Polyethylene Glycol 3350 17 GM PACKET PO (05:35)
[2018-12-14] MEDS: Metoprolol Tartrate 50 MG Tablet PO ×2 (05:38→17:41)
[2018-12-14] MEDS: Glucerna Shake 120 ML LIQUID 60 ML PO ×3 (05:45→17:37)
[2018-12-14 06:03] LABS: Absolute Lymphocyte Count 0.52 X10^3/uL (0.83-4.51); Basophil# 0.01 X10^3/uL; Basophil% 0.1 % (0-1); Eosinophil# 0.03 X10^3/uL; Eosinophils% 0.3 % (0-5); Hematocrit 34.6 % (40-54); Hemoglobin 10.6 g/dL (13.0-16.5); Lymphocyte # 0.52 X10^3/ul (4.0); Lymphocyte % 5.9 % (19-41); Mean Corp Hgb Conc 30.6 g/dL (32-36); Mean Corpuscular Hgb 25.7 pg (27.0-32.0); Mean Corpuscular Volume 83.8 fL (80-94); Mean Platelet Vol. 9.5 fl (6.2-12.0); Monocyte# 0.37 X10^3/uL; Monocyte% 4.2 % (0-10); NRBC Flagged by Analyzer 0 % (0-5); Neutrophil # 7.78 X10^3/uL (2.7-7.7); Neutrophil % 87.7 % (47-70); POSITIVE DIFFERENTIAL YES; Platelet Count 241 K/mm3 (150-450); RBC Distribution Width CV 17.1 % (11.6-14.6); RBC Distribution Width SD 50.6 fl (35.1-43.9); Red Blood Count 4.13 M/mm3 (4.6-6.2); White Blood Count 8.9 K/mm3 (4.4-11.0)
[2018-12-14 06:16] LABS: Anion Gap 8 (5-15); BUN 33 mg/dL (7-18); BUN/Creat Ratio 22.4 RATIO (10-20); Calcium,Total 8.5 mg/dL (8.5-10.1); Chloride 90 mmol/L (98-107); Creatinine, Serum 1.47 mg/dL (0.70-1.30); EST Glomerular Filtration Rate 50 mL/min (>60); Est Glom Filt Rate - Afr Amer 60 mL/min (>60); Estimated Creatinine Clearance 42.01 ml/min; Glucose 194 mg/dL (74-106); Potassium 4.3 mmol/L (3.5-5.1); Sodium Level 135 mmol/L (136-145)
[2018-12-14 06:21] LABS: Differential Indicated SCAN CRITERIA MET
[2018-12-14 06:36] LABS: Bedside Glucose 203 mg/dL (70-110)
[2018-12-14 06:39] LABS: Differential Comment SCANNED
[2018-12-14] MEDS: Ipratropium/Albuterol Sulfate 3 ML AMPUL.NEB INHALATION ×2 (06:39→18:55)
[2018-12-14] MEDS: Iron Polysaccharide Complex 150 MG CAPSULE PO (08:40)
[2018-12-14] MEDS: MethylPREDNISolone DosePak 4 MG BOX PO ×4 (08:40→21:03)
[2018-12-14] MEDS: Glimepiride 2 MG Tablet PO (08:40)
[2018-12-14] MEDS: Tuberculin,Purif.prot.deriv. 50 TU/ML Vial 5 ML ID (10:29)
[2018-12-14] MEDS: Furosemide 20 MG/2 ML VIAL IV ×2 (10:35→18:04)
[2018-12-14] MEDS: Atorvastatin Calcium 40 MG Tablet PO (21:03)
[2018-12-14] MEDS: Doxazosin 4 MG Tablet 8 MG PO (21:03)
[2018-12-15] VITALS (14 sets, daily range): BP systolic 121–124; BP diastolic 50–51; PULSE 55–82; RESP 12–26; TEMP 36.7; O2SAT 86–97
[2018-12-15] MEDS: Menthol/Lanolin/Calamine/Znox 113 GM Tube 1 APPLIC TOPICAL ×2 (05:52→18:13)
[2018-12-15] MEDS: Magnesium Oxide 400 MG Tablet PO ×2 (05:53→18:14)
[2018-12-15] MEDS: Spironolactone 25 MG Tablet PO ×2 (05:53→18:13)
[2018-12-15] MEDS: guaiFENesin 1,200 MG Tablet 1200 MG PO ×2 (05:53→18:15)
[2018-12-15] MEDS: Fluticasone/Salmeterol 232-14 Inhaler 1 PUFF IH ×2 (05:53→18:13)
[2018-12-15] MEDS: Polyethylene Glycol 3350 17 GM PACKET PO (05:54)
[2018-12-15] MEDS: Pantoprazole Sodium 40 MG Tablet PO (05:54)
[2018-12-15] MEDS: Metolazone 2.5 MG Tablet PO (05:54)
[2018-12-15] MEDS: Finasteride 5 MG Tablet PO (05:54)
[2018-12-15] MEDS: Clopidogrel Bisulfate 75 MG Tablet PO (05:54)
[2018-12-15] MEDS: Losartan Potassium 100 MG Tablet PO (05:54)
[2018-12-15] MEDS: Sertraline 100 MG Tablet PO (05:54)
[2018-12-15] MEDS: Senna/Docusate Sodium 1 Tablet PO ×2 (05:54→18:15)
[2018-12-15] MEDS: Glucerna Shake 120 ML LIQUID 60 ML PO ×4 (05:57→23:05)
[2018-12-15] MEDS: Metoprolol Tartrate 50 MG Tablet PO ×2 (05:57→18:14)
[2018-12-15] MEDS: Allopurinol 300 MG Tablet PO (06:05)
[2018-12-15] MEDS: Nystatin Powder 15gm Bottle 1 APPLIC TOPICAL ×2 (06:06→22:43)
[2018-12-15 06:31] LABS: Bedside Glucose 197 mg/dL (70-110)
[2018-12-15] MEDS: Ipratropium/Albuterol Sulfate 3 ML AMPUL.NEB INHALATION ×3 (07:15→18:50)
[2018-12-15] MEDS: MethylPREDNISolone DosePak 4 MG BOX PO ×4 (08:47→22:44)
[2018-12-15] MEDS: Iron Polysaccharide Complex 150 MG CAPSULE PO (08:47)
[2018-12-15] MEDS: Glimepiride 2 MG Tablet PO (08:47)
[2018-12-15] MEDS: Furosemide 20 MG/2 ML VIAL IV ×2 (09:24→16:46)
[2018-12-15] MEDS: Albuterol 2.5 MG/3 ML VIAL.NEB. INHALATION (09:30)
--- NOTE | 2018-12-15 09:37 | NURSING ---
At 0825 pt was lowered to floor in room by LOS Marques. Able to HAWK. No c/o pain or discomfort noted. Pt assisted off of floor and on to BSC with assist of 2 BALLISTIC EXPERT's and 2 ppl from therapy. VS- BP 114/70, P 65, R 18, Temp 98.3, SpO2 95% on 3L. Jayleen NICOLE aware. Will continue to monitor.
[2018-12-15 09:40] LABS: Mucous, Urine 0 SEEN /hpf (<or=2+)
[2018-12-15 09:44] LABS: Color, Urine Yellow (Yellow); Glucose, Dipstick Normal (Normal); Ketone-Dipstick Negative (Negative); Leukocyte Esterase-Dipstick 500 /ul (Negative); Nitrite-Dipstick Negative (Negative); Occult Blood-Urine 250 /ul (Negative); Protein-Dipstick 30 mg/dl (Negative); Urine Bilirubin Dipstick Negative (Negative); Urine Clarity Sl. Cloudy (Clear); Urine Urobilinogen Normal (Normal)
[2018-12-15 09:53] LABS: Bacteria 2+ /hpf (None Seen); Red Blood Cells-Urine 25-50 SEEN /hpf (0-5); Squamous Epithelial Cells - UA 0-5 SEEN /hpf (0-5); Triple Phosphate Crystals Ur 1+ /hpf (<or=1+); White Blood Cells 25-50 SEEN /hpf (0-5)
[2018-12-15] MEDS: 0.9% NaCl Peripheral Flush Adult/Peds IV ×2 (16:46→22:51)
[2018-12-15 16:51] LABS: Bedside Glucose 193 mg/dL (70-110)
--- NOTE | 2018-12-15 17:25 | PCM.CONS.GEN ---
Reason for Consult History of Present Illness: The patient is a 73 year old M [] Past Medical History Past Medical History (Chronic Problems): Chronic Problems (Last Reviewed 12/08/18 @ 03:44 by Garrett Whitley MD) COPD with exacerbation (Chronic) Pickwickian syndrome (Chronic) Iron deficiency anemia (Chronic) etology unknown COPD (chronic obstructive pulmonary disease) (Chronic) Obstructive sleep apnea (Chronic) Super obesity (Chronic) Hypertension (Chronic) Thoracic aortic aneurysm (Chronic) Lymphedema (Chronic) Gout (Chronic) BPH (benign prostatic hyperplasia) (Chronic) Hypomagnesemia (Chronic) Diabetes mellitus (Chronic) Chronic respiratory failure with hypoxia and hypercapnia (Chronic) Essential (primary) hypertension (Chronic) Chronic diastolic heart failure (Chronic) Thoracic aortic aneurysm without rupture (Chronic) Status post ascending and proximal arch aneurysm replaced with a Hemashield graft and shayan-arch repair; Hyperlipidemia (Chronic) Lymphedema of leg (Chronic) Medical History: Medical History (Last Reviewed 12/08/18 @ 03:44 by Garrett Whitley MD) Chronic respiratory failure with hypoxia and hypercapnia (Chronic) J96.11, J96.12 Essential (primary) hypertension (Chronic) I10 Chronic diastolic heart failure (Chronic) I50.32 Thoracic aortic aneurysm without rupture (Chronic) I71.2 Status post ascending and proximal arch aneurysm replaced with a Hemashield graft and shayan-arch repair; Hyperlipidemia (Chronic) E78.5 Lymphedema of leg (Chronic) I89.0 BPH w/o urinary obs/LUTS N40.0 COPD (chronic obstructive pulmonary disease) J44.9 Chronic anemia D64.9 Chronic kidney disease, stage 2 (mild) N18.2 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 GERD (gastroesophageal reflux disease) K21.9 History of pulmonary embolism Z86.711 Iron deficiency anemia D50.9 Lymphedema I89.0 Morbid obesity E66.01 Obstructive sleep apnea G47.33 Osteoarthritis M19.90 Tinea unguium B35.1 Ulcer of left lower extremity with fat layer exposed L97.922 Ulcer of right lower extremity with fat layer exposed L97.912 Venous insufficiency I87.2 Ventral hernia K43.9 Acute on chronic respiratory failure with hypoxia and hypercapnia (Resolved) J96.21, J96.22 Acute on chronic respiratory failure with hypoxia and hypercapnia J96.21, J96.22 Adynamic ileus K56.0 CAP (community acquired pneumonia) (Resolved) J18.9 The patient appropriately completed antibiotics and prednisone as prescribed. He has no further signs and symptoms of persistent pneumonia. No indication for any further testing at this time. Patient will be eligible for Pneumovax 23 in approximately 6 months. He states that his PCP is very good at keeping track of his immunizations and when they are due. CHF exacerbation (Resolved) I50.9 Hypoglycemia (Resolved) E16.2 Pulmonary embolism on right (Resolved) I26.99 Tobacco abuse (Resolved) Z72.0 Wheezing (Resolved) R06.2 Edema of both legs (Inactive) R60.0 Immobility (Inactive) Z74.09 Leg swelling (Inactive) M79.89 Multiple excoriations (Inactive) T14.8 Nausea and vomiting (Inactive) R11.2 Tinea unguium (Inactive) B35.1 Allergies naphazoline HCl [From Naphcon] Allergy (Severe, Verified 12/08/18 00:29) affected his breathing AFFECTED HIS BREATHING amlodipine besylate [From Norvasc] Allergy (Verified 12/08/18 00:29) Other dextromethorphan Allergy (Verified 12/08/18 00:29) Other levofloxacin [From Levaquin] Adverse Reaction (Mild, Verified 12/08/18 00:29) made me hyperactive made me hyperactive Home Medications: Ambulatory Orders Medication Instructions Recorded Allopurinol [Zyloprim] 300 mg PO DAILY 06/15/18 Clopidogrel Bisulfate [Plavix] 75 mg PO DAILY 06/15/18 Ferrous Sulfate 325 mg PO DAILY 06/15/18 Finasteride [Proscar] 5 mg PO DAILY 06/15/18 Magnesium 250 mg PO BID 06/15/18 Metolazone [Zaroxolyn] 2.5 mg PO DAILY 06/15/18 Metoprolol Tartrate [Lopressor 50 mg PO BID 06/15/18 (beta maryam)] Sertraline HCl [Zoloft] 100 mg PO DAILY 06/15/18 Spironolactone [Aldactone] 25 mg PO BID 06/15/18 Acetaminophen [Tylenol Tablet] 650 mg PO Q6H PRN PRN tab 06/17/18 Atorvastatin Calcium 40 mg PO QHS 12/07/18 Losartan Potassium 100 mg PO DAILY 12/07/18 Terazosin HCl 10 mg PO QHS 12/07/18 Albuterol Aerosols [Ventolin 2.5 mg INHALATION Q2H PRN PRN 12/13/18 Aerosols] vial.neb. Budesonide/Formoterol 160/4.5 2 puff INHALATION BID 12/13/18 [Symbicort 160/4.5 Mcg Inhaler (SP)] Furosemide [Lasix] 40 mg PO DAILY 12/13/18 Glimepiride [Amaryl] 2 mg PO DAILY 12/13/18 Ipratropium/Albuterol Sulfate 3 ml INHALATION Q6HWA.RT 12/13/18 [Duoneb] Nystatin Powder [Mycostatin Powder] 1 applic TOPICAL BID 12/13/18 Pantoprazole Sodium [Protonix] 40 mg PO DAILY 12/13/18 Surgical History: Surgical History (Last Reviewed 12/08/18 @ 03:44 by Garrett Whitley MD) History of repair of thoracic aortic aneurysm (Resolved) Onset Date: 12/11/09 Z98.890, Z86.79 H/O aortic valve replacement (Resolved) Onset Date: 12/11/09 Z95.2 # 29 Freestyle valve H/O hernia repair Z98.890, Z87.19 Surgical History: herniorrhaphy - Large ventral hernia with mesh., - - He has a bioprosthetic aortic valve replacement, abdominal aortic aneurysm repair 2004. Psychiatric History: Anxiety, Depression Lives: Spouse/ Significant Other Smoking Status: Former smoker Tobacco Use: Non-smoker Alcohol: None Drugs: None - *Family History Maternal Family History: Family History (Last Reviewed 12/08/18 @ 03:44 by Garrett Whitley MD) Brother TBI (traumatic brain injury) Sister Ulcerative colitis History Items: Hypertension, - - Patient's father at the age of 94 from old age. Patient's mother at age of 87 with a history of hyperlipidemia and hypertension. Paternal Family History: Family History (Last Reviewed 12/08/18 @ 03:44 by Garrett Whitley MD) Brother TBI (traumatic brain injury) Sister Ulcerative colitis History Items: Hypertension Patient Problems: Active and Suspected Problems (Last Reviewed 12/08/18 @ 03:44 by Garrett Whitley MD) Debility (Acute) Acute on chronic diastolic heart failure (Acute) - Physical Exam Vital Signs Temp Pulse Resp BP Pulse Ox 98.0 F 67 20 H 121/51 H 86 12/15/18 15:13 12/15/18 15:13 12/15/18 15:13 12/15/18 15:13 12/15/18 15:13 Oxygen Flow Rate (L/min) 4 Oxygen Delivery Method Nasal Cannula Weight: 153.1 kg Body Mass Index (BMI) 51.2 Finger Stick Blood Glucose 171 Intake and Output for Last 24 Hours 12/13/18 12/14/18 12/15/18 23:59 23:59 23:59 Intake Total 640 / 640 1440 / 1440 780 / 780 Output Total 200 / 200 1125 / 1125 425 / 425 Balance 440 / 440 315 / 315 355 / 355 Laboratory Tests Past 24 Hrs 12/15/18 09:30 Urine Color Yellow Urine Clarity Sl. Cloudy Urine pH 8.0 Ur Specific [place] 1.010 Urine Protein 30 H Urine Glucose (UA) Normal Urine Ketones Negative Urine Occult Blood 250 H Urine Nitrite Negative Urine Bilirubin Negative Urine Urobilinogen Normal Ur Leukocyte Esterase 500 H Urine RBC 25-50 SEEN Urine WBC 25-50 SEEN Ur Squamous Epith Cells 0-5 SEEN Triple Phos Crystals 1+ Urine Bacteria 2+ Urine Mucus 0 SEEN POC Glucose 12/15/18 12/15/18 16:44 06:18 POC Glucose 193 H 197 H Assessment/Plan All Active Problems (Last Reviewed 12/08/18 @ 03:44 by Garrett Whitley MD) New onset a-fib (Acute) Debility (Acute) Acute on chronic diastolic heart failure (Acute) History of repair of thoracic aortic aneurysm (Resolved 12/11/09) H/O aortic valve replacement (Resolved 12/11/09) Acute on chronic respiratory failure with hypoxia and hypercapnia (Resolved) Bilateral lower leg cellulitis (Resolved) CAP (community acquired pneumonia) (Resolved) CHF exacerbation (Resolved) Hyperkalemia (Resolved) Hypoglycemia (Resolved) Hypoglycemia (Resolved) Hypomagnesemia (Resolved) Hyponatremia (Resolved) Pulmonary embolism on right (Resolved) Shortness of breath (Resolved) Tobacco abuse (Resolved) Wheezing (Resolved)
--- NOTE | 2018-12-15 17:58 | NURSING ---
PT WITH STRONG ODOR TO URINE, NEW ORDER FOR UA, DR ALEJANDRE UPDATED ON RESULTS, CEFTIN ORDERED.
--- NOTE | 2018-12-15 18:10 | CON.PCM_ITS ---
Reason for Consult Date of Consultation: 12/15/18 Reason for Consultation: Toenails History of Present Illness: The patient is a 73 year old gentleman with multiple medical problems including obesity, COPD, and diabetes was seen today for long, thickened, dystrophic, painful toenails 1-5 bilateral. He relates he is not able to reduce them himself, he cannot reach his toenails. His family has been trying to help but having very difficult time. He used to see Dr. Rogers for foot care, but relates it was to hard to go to the office due to all of his medical problems. He has no other complaints. Past Medical History Past Medical History (Chronic Problems): Chronic Problems (Last Reviewed 12/08/18 @ 03:44 by Garrett Whitley MD) COPD with exacerbation (Chronic) Pickwickian syndrome (Chronic) Iron deficiency anemia (Chronic) etology unknown COPD (chronic obstructive pulmonary disease) (Chronic) Obstructive sleep apnea (Chronic) Super obesity (Chronic) Hypertension (Chronic) Thoracic aortic aneurysm (Chronic) Lymphedema (Chronic) Gout (Chronic) BPH (benign prostatic hyperplasia) (Chronic) Hypomagnesemia (Chronic) Diabetes mellitus (Chronic) Chronic respiratory failure with hypoxia and hypercapnia (Chronic) Essential (primary) hypertension (Chronic) Chronic diastolic heart failure (Chronic) Thoracic aortic aneurysm without rupture (Chronic) Status post ascending and proximal arch aneurysm replaced with a Hemashield graft and shayan-arch repair; Hyperlipidemia (Chronic) Lymphedema of leg (Chronic) Medical History: Medical History (Last Reviewed 12/08/18 @ 03:44 by Garrett Whitley MD) Chronic respiratory failure with hypoxia and hypercapnia (Chronic) J96.11, J96.12 Essential (primary) hypertension (Chronic) I10 Chronic diastolic heart failure (Chronic) I50.32 Thoracic aortic aneurysm without rupture (Chronic) I71.2 Status post ascending and proximal arch aneurysm replaced with a Hemashield graft and shayan-arch repair; Hyperlipidemia (Chronic) E78.5 Lymphedema of leg (Chronic) I89.0 BPH w/o urinary obs/LUTS N40.0 COPD (chronic obstructive pulmonary disease) J44.9 Chronic anemia D64.9 Chronic kidney disease, stage 2 (mild) N18.2 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 GERD (gastroesophageal reflux disease) K21.9 History of pulmonary embolism Z86.711 Iron deficiency anemia D50.9 Lymphedema I89.0 Morbid obesity E66.01 Obstructive sleep apnea G47.33 Osteoarthritis M19.90 Tinea unguium B35.1 Ulcer of left lower extremity with fat layer exposed L97.922 Ulcer of right lower extremity with fat layer exposed L97.912 Venous insufficiency I87.2 Ventral hernia K43.9 Acute on chronic respiratory failure with hypoxia and hypercapnia (Resolved) J96.21, J96.22 Acute on chronic respiratory failure with hypoxia and hypercapnia J96.21, J96 .22 Adynamic ileus K56.0 CAP (community acquired pneumonia) (Resolved) J18.9 The patient appropriately completed antibiotics and prednisone as prescribed. He has no further signs and symptoms of persistent pneumonia. No indication for any further testing at this time. Patient will be eligible for Pneumovax 23 in approximately 6 months. He states that his PCP is very good at keeping track of his immunizations and when they are due. CHF exacerbation (Resolved) I50.9 Hypoglycemia (Resolved) E16.2 Pulmonary embolism on right (Resolved) I26.99 Tobacco abuse (Resolved) Z72.0 Wheezing (Resolved) R06.2 Edema of both legs (Inactive) R60.0 Immobility (Inactive) Z74.09 Leg swelling (Inactive) M79.89 Multiple excoriations (Inactive) T14.8 Nausea and vomiting (Inactive) R11.2 Tinea unguium (Inactive) B35.1 Allergies naphazoline HCl [From Naphcon] Allergy (Severe, Verified 12/08/18 00:29) affected his breathing AFFECTED HIS BREATHING amlodipine besylate [From Norvasc] Allergy (Verified 12/08/18 00:29) Other dextromethorphan Allergy (Verified 12/08/18 00:29) Other levofloxacin [From Levaquin] Adverse Reaction (Mild, Verified 12/08/18 00:29) made me hyperactive made me hyperactive Home Medications: Ambulatory Orders Medication Instructions Recorded Allopurinol [Zyloprim] 300 mg PO DAILY 06/15/18 Clopidogrel Bisulfate [Plavix] 75 mg PO DAILY 06/15/18 Ferrous Sulfate 325 mg PO DAILY 06/15/18 Finasteride [Proscar] 5 mg PO DAILY 06/15/18 Magnesium 250 mg PO BID 06/15/18 Metolazone [Zaroxolyn] 2.5 mg PO DAILY 06/15/18 Metoprolol Tartrate [Lopressor 50 mg PO BID 06/15/18 (beta maryam)] Sertraline HCl [Zoloft] 100 mg PO DAILY 06/15/18 Spironolactone [Aldactone] 25 mg PO BID 06/15/18 Acetaminophen [Tylenol Tablet] 650 mg PO Q6H PRN PRN tab 06/17/18 Atorvastatin Calcium 40 mg PO QHS 12/07/18 Losartan Potassium 100 mg PO DAILY 12/07/18 Terazosin HCl 10 mg PO QHS 12/07/18 Albuterol Aerosols [Ventolin 2.5 mg INHALATION Q2H PRN PRN 12/13/18 Aerosols] vial.neb. Budesonide/Formoterol 160/4.5 2 puff INHALATION BID 12/13/18 [Symbicort 160/4.5 Mcg Inhaler (SP)] Furosemide [Lasix] 40 mg PO DAILY 12/13/18 Glimepiride [Amaryl] 2 mg PO DAILY 12/13/18 Ipratropium/Albuterol Sulfate 3 ml INHALATION Q6HWA.RT 12/13/18 [Duoneb] Nystatin Powder [Mycostatin Powder] 1 applic TOPICAL BID 12/13/18 Pantoprazole Sodium [Protonix] 40 mg PO DAILY 12/13/18 Surgical History: Surgical History (Last Reviewed 12/08/18 @ 03:44 by Garrett Whitley MD) History of repair of thoracic aortic aneurysm (Resolved) Onset Date: 12/11/09 Z98.890, Z86.79 H/O aortic valve replacement (Resolved) Onset Date: 12/11/09 Z95.2 # 29 Freestyle valve H/O hernia repair Z98.890, Z87.19 Surgical History: herniorrhaphy - Large ventral hernia with mesh., - - He has a bioprosthetic aortic valve replacement, abdominal aortic aneurysm repair 2004. Psychiatric History: Anxiety, Depression Lives: Spouse/ Significant Other Smoking Status: Former smoker Tobacco Use: Non-smoker Alcohol: None Drugs: None - *Family History Maternal Family History: Family History (Last Reviewed 12/08/18 @ 03:44 by Garrett Whitley MD) Brother TBI (traumatic brain injury) Sister Ulcerative colitis History Items: Hypertension, - - Patient's father at the age of 94 from old age. Patient's mother at age of 87 with a history of hyperlipidemia and hypertension. Paternal Family History: Family History (Last Reviewed 12/08/18 @ 03:44 by Garrett Whitley MD) Brother TBI (traumatic brain injury) Sister Ulcerative colitis History Items: Hypertension Review of Systems Constitutional: Denies: Chills, Fever Gastrointestinal: Denies: Nausea, Vomiting Patient Problems: Active and Suspected Problems (Last Reviewed 12/08/18 @ 03:44 by Garrett Whitley MD) Debility (Acute) Acute on chronic diastolic heart failure (Acute) - Physical Exam General: Alert, Oriented x3, Cooperative, No apparent distress Extremities: Capillary Refill Less than 3 Seconds, No Calf Tenderness, - - Toenails 1-5 bilateral are elongated, thickened, dystrophic, yellow, painful, incurvated, with subungual debris. No open lesions noted to foot bilateral. Diffuse lower extremity edema with legs wrapped with mike bandages bilateral. Sensation intact to light touch bilateral foot. CFT < 2 seconds to all toes bilateral, normal temperature, and no evidence of ischemia to the foot bilateral. Vital Signs Temp Pulse Resp BP Pulse Ox 98.0 F 67 20 H 121/51 H 86 12/15/18 15:13 12/15/18 15:13 12/15/18 15:13 12/15/18 15:13 12/15/18 15:13 Oxygen Flow Rate (L/min) 4 Oxygen Delivery Method Nasal Cannula Weight: 153.1 kg Body Mass Index (BMI) 51.2 Finger Stick Blood Glucose 171 Intake and Output for Last 24 Hours 12/13/18 12/14/18 12/15/18 23:59 23:59 23:59 Intake Total 640 / 640 1440 / 1440 1020 / 1020 Output Total 200 / 200 1125 / 1125 425 / 425 Balance 440 / 440 315 / 315 595 / 595 Laboratory Tests Past 24 Hrs 12/15/18 09:30 Urine Color Yellow Urine Clarity Sl. Cloudy Urine pH 8.0 Ur Specific [place] 1.010 Urine Protein 30 H Urine Glucose (UA) Normal Urine Ketones Negative Urine Occult Blood 250 H Urine Nitrite Negative Urine Bilirubin Negative Urine Urobilinogen Normal Ur Leukocyte Esterase 500 H Urine RBC 25-50 SEEN Urine WBC 25-50 SEEN Ur Squamous Epith Cells 0-5 SEEN Triple Phos Crystals 1+ Urine Bacteria 2+ Urine Mucus 0 SEEN POC Glucose 12/15/18 12/15/18 16:44 06:18 POC Glucose 193 H 197 H Assessment/Plan All Active Problems (Last Reviewed 12/08/18 @ 03:44 by Garrett Whitley MD) New onset a-fib (Acute) Debility (Acute) Acute on chronic diastolic heart failure (Acute) History of repair of thoracic aortic aneurysm (Resolved 12/11/09) H/O aortic valve replacement (Resolved 12/11/09) Acute on chronic respiratory failure with hypoxia and hypercapnia (Resolved) Bilateral lower leg cellulitis (Resolved) CAP (community acquired pneumonia) (Resolved) CHF exacerbation (Resolved) Hyperkalemia (Resolved) Hypoglycemia (Resolved) Hypoglycemia (Resolved) Hypomagnesemia (Resolved) Hyponatremia (Resolved) Pulmonary embolism on right (Resolved) Shortness of breath (Resolved) Tobacco abuse (Resolved) Wheezing (Resolved) Dystrophic toenails 1-5 bilateral Onychomycosis 1-5 bilateral Pain toe right and left Diabetes Multiple co-morbidities Debrided toenails 1-5 bilateral using a nail nipper, this was done without incident. Reviewed proper diabetic foot care with patient. Patient to follow up as outpatient in podiatry clinic for further podiatric care, otherwise podiatry will follow up with patient PRN in TCU at this time. Please call if any questions, concerns or problems. Thank you for consultation.
[2018-12-15] MEDS: CEFUROXIME AXETIL 250 MG TABLET 500 MG PO (19:04)
[2018-12-15] MEDS: Atorvastatin Calcium 40 MG Tablet PO (22:44)
[2018-12-15] MEDS: Doxazosin 4 MG Tablet 8 MG PO (22:45)
[2018-12-16] VITALS (11 sets, daily range): BP systolic 134–149; BP diastolic 60–72; PULSE 53–75; RESP 12–23; TEMP 36.6; O2SAT 86–97
[2018-12-16] MEDS: Glucerna Shake 120 ML LIQUID 60 ML PO ×4 (05:33→21:07)
[2018-12-16] MEDS: Polyethylene Glycol 3350 17 GM PACKET PO (05:33)
[2018-12-16] MEDS: Metolazone 2.5 MG Tablet PO (05:35)
[2018-12-16] MEDS: Sertraline 100 MG Tablet PO (05:35)
[2018-12-16] MEDS: Senna/Docusate Sodium 1 Tablet PO ×2 (05:35→17:44)
[2018-12-16] MEDS: guaiFENesin 1,200 MG Tablet 1200 MG PO ×2 (05:35→17:44)
[2018-12-16] MEDS: Spironolactone 25 MG Tablet PO ×2 (05:35→17:43)
[2018-12-16] MEDS: Nystatin Powder 15gm Bottle 1 APPLIC TOPICAL ×2 (05:35→21:07)
[2018-12-16] MEDS: Finasteride 5 MG Tablet PO (05:36)
[2018-12-16] MEDS: Magnesium Oxide 400 MG Tablet PO ×2 (05:36→17:44)
[2018-12-16] MEDS: Losartan Potassium 100 MG Tablet PO (05:36)
[2018-12-16] MEDS: Pantoprazole Sodium 40 MG Tablet PO (05:36)
[2018-12-16] MEDS: Menthol/Lanolin/Calamine/Znox 113 GM Tube 1 APPLIC TOPICAL ×2 (05:36→17:42)
[2018-12-16] MEDS: Allopurinol 300 MG Tablet PO (05:36)
[2018-12-16] MEDS: CEFUROXIME AXETIL 250 MG TABLET 500 MG PO ×2 (05:36→17:43)
[2018-12-16] MEDS: Clopidogrel Bisulfate 75 MG Tablet PO (05:38)
[2018-12-16] MEDS: Fluticasone/Salmeterol 232-14 Inhaler 1 PUFF IH ×2 (05:39→17:43)
[2018-12-16 06:45] LABS: Anion Gap 6 (5-15); BUN 43 mg/dL (7-18); BUN/Creat Ratio 29.9 RATIO (10-20); Calcium,Total 8.6 mg/dL (8.5-10.1); Chloride 92 mmol/L (98-107); Creatinine, Serum 1.44 mg/dL (0.70-1.30); EST Glomerular Filtration Rate 51 mL/min (>60); Est Glom Filt Rate - Afr Amer 61 mL/min (>60); Estimated Creatinine Clearance 42.88 ml/min; Glucose 190 mg/dL (74-106); Potassium 4.6 mmol/L (3.5-5.1); Sodium Level 136 mmol/L (136-145)
[2018-12-16 07:11] LABS: Bedside Glucose 198 mg/dL (70-110)
[2018-12-16] MEDS: Metoprolol Tartrate 50 MG Tablet PO ×2 (07:15→17:43)
[2018-12-16] MEDS: Ipratropium/Albuterol Sulfate 3 ML AMPUL.NEB INHALATION ×3 (07:20→18:45)
[2018-12-16] MEDS: MethylPREDNISolone DosePak 4 MG BOX PO ×3 (08:36→21:08)
[2018-12-16] MEDS: Glimepiride 2 MG Tablet PO (08:36)
[2018-12-16] MEDS: Iron Polysaccharide Complex 150 MG CAPSULE PO (08:36)
[2018-12-16] MEDS: Furosemide 20 MG/2 ML VIAL IV ×2 (11:15→18:04)
[2018-12-16] MEDS: 0.9% NaCl Peripheral Flush Adult/Peds IV ×2 (11:15→21:12)
[2018-12-16 17:20] LABS: Bedside Glucose 234 mg/dL (70-110)
[2018-12-16] MEDS: Doxazosin 4 MG Tablet 8 MG PO (21:10)
[2018-12-16] MEDS: Atorvastatin Calcium 40 MG Tablet PO (21:10)
[2018-12-17] VITALS (10 sets, daily range): BP systolic 131–133; BP diastolic 56–65; PULSE 54–72; RESP 12–28; TEMP 36.7; O2SAT 91–97
[2018-12-17] MEDS: Ipratropium/Albuterol Sulfate 3 ML AMPUL.NEB INHALATION ×3 (06:40→19:15)
[2018-12-17 06:51] LABS: Bedside Glucose 179 mg/dL (70-110)
[2018-12-17] MEDS: Menthol/Lanolin/Calamine/Znox 113 GM Tube 1 APPLIC TOPICAL ×2 (06:54→17:20)
[2018-12-17] MEDS: Glucerna Shake 120 ML LIQUID 60 ML PO ×4 (06:54→21:01)
[2018-12-17] MEDS: Metoprolol Tartrate 50 MG Tablet PO ×2 (06:55→17:18)
[2018-12-17] MEDS: Losartan Potassium 100 MG Tablet PO (06:55)
[2018-12-17] MEDS: Magnesium Oxide 400 MG Tablet PO ×2 (06:55→17:18)
[2018-12-17] MEDS: Senna/Docusate Sodium 1 Tablet PO ×2 (06:56→17:18)
[2018-12-17] MEDS: Metolazone 2.5 MG Tablet PO (06:56)
[2018-12-17] MEDS: Nystatin Powder 15gm Bottle 1 APPLIC TOPICAL ×2 (06:56→21:08)
[2018-12-17] MEDS: guaiFENesin 1,200 MG Tablet 1200 MG PO ×2 (06:56→17:18)
[2018-12-17] MEDS: CEFUROXIME AXETIL 250 MG TABLET 500 MG PO (06:56)
[2018-12-17] MEDS: Sertraline 100 MG Tablet PO (06:56)
[2018-12-17] MEDS: Pantoprazole Sodium 40 MG Tablet PO (06:56)
[2018-12-17] MEDS: Clopidogrel Bisulfate 75 MG Tablet PO (06:56)
[2018-12-17] MEDS: Finasteride 5 MG Tablet PO (06:57)
[2018-12-17] MEDS: Spironolactone 25 MG Tablet PO ×2 (06:57→17:18)
[2018-12-17] MEDS: Fluticasone/Salmeterol 232-14 Inhaler 1 PUFF IH ×2 (06:58→17:13)
[2018-12-17] MEDS: Polyethylene Glycol 3350 17 GM PACKET PO (07:02)
[2018-12-17] MEDS: Allopurinol 300 MG Tablet PO (07:21)
[2018-12-17] MEDS: MethylPREDNISolone DosePak 4 MG BOX PO ×2 (08:35→21:07)
[2018-12-17] MEDS: Iron Polysaccharide Complex 150 MG CAPSULE PO (08:35)
[2018-12-17] MEDS: Glimepiride 2 MG Tablet PO (08:35)
[2018-12-17] MEDS: Furosemide 20 MG/2 ML VIAL IV (10:34)
--- NOTE | 2018-12-17 13:37 | NURSING ---
THIS NURSE INTO HOLD URINAL FOR PT FOR SECOND TIME. PT SMELLS OF URINE AND URINE ON FLOOR. ASKED PT WHAT HAPPENED PT STATED I COULDN'T HOLD IT. ASKED PT HOW HE GOES TO THE BATH ROOM AT HOME. PT STATED I WALK 10 STEPS INTO THE BATHROOM. TALKED TO SHAWN FROM THERAPY. SHAWN STATED PT WALKED 20 FEET FOR HIM AND RECOMMENDS PT TO GET UP AND WALK TO BATH ROOM. THIS NURSE EXPLAINED TO PT THAT THERAPY WANTS HIM TO WALK INTO BATH ROOM. THIS NURSE ALSO EXPLAINED TO PT THAT HE HAS TO GET UP AND MOVE OR HAVE A CHANCE OF GETTING PNEUMONIA OR WORSE. THIS NURSE HAD LILA FROM THERAPY STAND BY WITH PT TO BATHROOM. PT DID WELL. LINEN IN CHAIR CHANGED AND SPONGE BATH TO BOTTOM WITH THERAPY DUE TO URINE IN CHAIR AND ON PT. REPORTED TO [facility]
--- NOTE | 2018-12-17 13:47 | PCM.PN.RX ---
<Lino Lyons - Last Filed: 12/17/18 13:47> Progress Note - Pharmacy Subjective: [] TCU Admission Objective: Allergies naphazoline HCl [From Naphcon] Allergy (Severe, Verified 12/08/18 00:29) affected his breathing AFFECTED HIS BREATHING amlodipine besylate [From Norvasc] Allergy (Verified 12/08/18 00:29) Other dextromethorphan Allergy (Verified 12/08/18 00:29) Other levofloxacin [From Levaquin] Adverse Reaction (Mild, Verified 12/08/18 00:29) made me hyperactive made me hyperactive Current Medications Generic Name Dose Route Start Last Admin Trade Name Freq PRN Reason Stop Dose Admin Acetaminophen 1,000 mg 12/13/18 21:47 Tylenol PO Q6H PRN PRN MILD PAIN (1-310) Albuterol Sulfate 2.5 mg 12/13/18 15:39 12/15/18 09:30 Ventolin Aerosols INHALATION 2.5 mg Q2H PRN PRN Administration SHORTNESS OF BREATH Albuterol/Ipratropium 3 ml 12/13/18 15:45 12/17/18 12:51 Duoneb INHALATION 3 ml Q6HWA.RT WARREN Administration Allopurinol 300 mg 12/14/18 06:00 12/17/18 07:21 Zyloprim PO 300 mg DAILY WARREN Administration Atorvastatin Calcium 40 mg 12/13/18 22:00 12/16/18 21:10 Lipitor PO 40 mg QHS WARREN Administration Bisacodyl 10 mg 12/13/18 21:47 Dulcolax PO DAILY PRN Constipation Calamine/Phenol 1 applic 12/13/18 18:00 12/17/18 06:54 Calmoseptine Ointment TOPICAL 1 applicatio BID WARREN Administration Protocol Cefuroxime Axetil 500 mg 12/15/18 18:00 12/17/18 06:56 Ceftin PO 12/25/18 18:01 500 mg Q12 WARREN Administration Clopidogrel Bisulfate 75 mg 12/14/18 06:00 12/17/18 06:56 Plavix PO 75 mg DAILY WARREN Administration Doxazosin Mesylate 8 mg 12/13/18 22:00 12/16/18 21:10 Cardura PO 8 mg QHS WARREN Administration Finasteride 5 mg 12/14/18 06:00 12/17/18 06:57 Proscar PO 5 mg DAILY WARREN Administration Furosemide 20 mg 12/14/18 10:00 12/17/18 10:34 Lasix IV 20 mg BID@1000,1800 WARREN Administration Glimepiride 2 mg 12/14/18 08:00 12/17/18 08:35 Amaryl PO 2 mg DAILY@0800 WARREN Administration Guaifenesin 1,200 mg 12/13/18 18:00 12/17/18 06:56 Mucinex PO 1,200 mg BID WARREN Administration Losartan Potassium 100 mg 12/14/18 06:00 12/17/18 06:55 Cozaar PO 100 mg DAILY WARREN Administration Magnesium Oxide 400 mg 12/13/18 18:00 12/17/18 06:55 Mag-Ox 400 PO 400 mg BID WARREN Administration Methylprednisolone 4 mg 12/13/18 22:00 12/17/18 08:35 Medrol Dosepak PO 12/18/18 08:59 4 mg 799,2199 WARREN Administration Taper Metolazone 2.5 mg 12/14/18 06:00 12/17/18 06:56 Zaroxolyn PO 2.5 mg DAILY WARREN Administration Metoprolol Tartrate 50 mg 12/13/18 18:00 12/17/18 06:55 Lopressor (Beta Kristel) PO 50 mg BID WARREN Administration Multi-Ingredient Cream 1 applic 12/15/18 06:00 12/17/18 06:55 Eucerin TOPICAL 1 applicatio 599,2199 [facility] Administration Protocol Nutritional Formula (Lactose Free) 60 ml 12/13/18 22:00 12/17/18 11:12 Glucerna Shake PO 60 ml 4X/DAY WARREN Administration Nystatin 1 applic 12/13/18 22:00 12/17/18 06:56 Mycostatin Powder TOPICAL 1 applicatio 599,0 [facility] Administration Protocol Pantoprazole Sodium 40 mg 12/14/18 06:00 12/17/18 06:56 Protonix PO 40 mg DAILY WARREN Administration Polyethylene Glycol 17 gm 12/14/18 06:00 12/17/18 07:02 Miralax PO 17 gm DAILY WARREN Administration Polysaccharide Iron Complex 150 mg 12/14/18 08:00 12/17/18 08:35 Ferrex 150 PO 150 mg DAILYCM WARREN Administration Fluticasone/Salmeterol 1 puff 12/13/18 18:00 12/17/18 06:58 Fluticasone-Salmeterol 232-14 IH 1 puff Q12 WARREN Administration Senna/Docusate Sodium 1 tablet 12/14/18 06:00 12/17/18 06:56 Senokot-S, Kyung-Colace PO 1 tablet BID WARREN Administration Sertraline HCl 100 mg 12/14/18 06:00 12/17/18 06:56 Zoloft PO 100 mg DAILY WARREN Administration Sodium Chloride 10 - 40 ml 12/15/18 11:50 12/16/18 21:12 IV 10 ml UD PRN Administration SALINE FLUSH Spironolactone 25 mg 12/13/18 18:00 12/17/18 06:57 Aldactone PO 25 mg BID WARREN Administration Tuberculin PPD 5 tu 12/21/18 10:00 Tubersol, Aplisol, Ppd ID 12/21/18 10:01 X1 ONE Problem List (Last Reviewed 12/08/18 @ 03:44 by Garrett Whitley MD) Debility (Acute) COPD (chronic obstructive pulmonary disease) (Chronic) Obstructive sleep apnea (Chronic) Super obesity (Chronic) Hypertension (Chronic) Acute on chronic diastolic heart failure (Acute) Thoracic aortic aneurysm (Chronic) Lymphedema (Chronic) Gout (Chronic) BPH (benign prostatic hyperplasia) (Chronic) Hypomagnesemia (Chronic) Diabetes mellitus (Chronic) Vital Signs Temp Pulse Resp BP Pulse Ox 97.9 F 68 20 H 133/65 H 97 12/16/18 16:00 12/17/18 12:51 12/17/18 12:51 12/17/18 06:55 12/17/18 06:40 Oxygen Flow Rate (L/min) 3 Oxygen Delivery Method Nasal Cannula Weight: 147.644 kg Body Mass Index (BMI) 51.2 Finger Stick Blood Glucose 171 Sodium 136 mmol/L (136-145) 12/16/18 05:26 Potassium 4.6 mmol/L (3.5-5.1) 12/16/18 05:26 Chloride 92 mmol/L (98-107) L 12/16/18 05:26 Carbon Dioxide 38.0 mmol/L (21.0-32.0) H 12/16/18 05:26 6 (5-15) 12/16/18 05:26 BUN 43 mg/dL (7-18) H 12/16/18 05:26 1.44 mg/dL (0.70-1.30) H 12/16/18 05:26 Est GFR (MDRD) Af Amer 61 mL/min (>60) 12/16/18 05:26 Est GFR (MDRD) Non-Af 51 mL/min (>60) L 12/16/18 05:26 29.9 RATIO (10-20) H 12/16/18 05:26 Glucose 190 mg/dL (74-106) H 12/16/18 05:26 Assessment/Plan: 1) Pain: Acetaminophen 1000mg po q6h prn for mild pain. Please continue to monitor prn usage and for signs/symptoms of increased/decreased pain. 2) GERD: Pantoprazole 40mg po daily. Please continue to monitor for signs/symptoms of gerd 3) Hypomagnesemia: Mag-Ox 400mg po bid. Pt's Magnesium level is within normal limits. Please continue to monitor. *4) Hyperlipidemia: Atorvastatin 40mg po qhs. I could not find a recent Lipid panel or LFT in the pts chart. Please consider yearly labs while the pt is on a statin. Thanks 5) Congestion: Mucinex 1200mg po bid. Please continue to monitor for signs/symptoms of congestion 6) Iron Deficiency Anemia. Ferrex 150mg po daily with food. Please continue to monitor labs 7) COPD: Ventolin 2.5ml via nebulizer q2h prn for shortness of breath, Duoneb 3ml via nebulizer q6h while awake, Fluticasone/Salmeterol 232/14--inhale 1 puff po bid. Please continue to monitor for signs/symptoms of shortness of breath. Please make sure pt continues to rinse mouth, gargle, and spit after each dose of Fluticasone/Salmeterol to help prevent oral thrush. 8) Diabetes: Glimepiride 2mg po daily with breakfast. Please continue to monitor pt's blood sugars. Pt is on a corticosteroid dose pack which may affect his blood sugars, please continue to monitor. *9) Gout: Allopurinol 300mg po daily. Please consider yearly LFTs and Uric Acid level while pt is on Allopurinol. thanks 10) BPH: Finasteride 5mg po daily, Doxazosin 8mg po daily. Please continue to monitor for signs/symptoms of BPH 11) CHF: Losartan 100mg po daily, Metolazone 2.5mg po daily, Aldactone 25mg po bid, Furosemide 20mg IV bid, Metoprolol Tartrate 50mg po bid. Pt's weights have been steady. Pt's Na is 136, K+ 4.6, BUN is elevated at 43, and SrCr is 1.44. Please continue to monitor. Pt has had 3 irregular pulses rhythms. Please continue to monitor. Psychotropic Medications: Sertraline 1000mg po daily for depression. Medication will require a GDR by 05/2019 unless clinically contraindicated Unnecessary Medications: none Bowel Regimen: Bisacodyl 10mg po daily prn for constipation, Miralax 17gm po daily, Senna/Docusate 1 tablet po bid. Please continue to monitor prn usage and for signs/symptoms of diarrhea/constipation. Date of Note:: 12/17/18 - Provider Comments Provider responsibility: Provider responsible to enter orders to implement recommendations <Teo Barr Chi - Last Filed: 12/17/18 17:34> Progress Note - Pharmacy Subjective: [] Objective: Allergies naphazoline HCl [From Naphcon] Allergy (Severe, Verified 12/08/18 00:29) affected his breathing AFFECTED HIS BREATHING amlodipine besylate [From Norvasc] Allergy (Verified 12/08/18 00:29) Other dextromethorphan Allergy (Verified 12/08/18 00:29) Other levofloxacin [From Levaquin] Adverse Reaction (Mild, Verified 12/08/18 00:29) made me hyperactive made me hyperactive Current Medications Generic Name Dose Route Start Last Admin Trade Name Freq PRN Reason Stop Dose Admin Acetaminophen 1,000 mg 12/13/18 21:47 Tylenol PO Q6H PRN PRN MILD PAIN (1-3/10) Albuterol Sulfate 2.5 mg 12/13/18 15:39 12/15/18 09:30 Ventolin Aerosols INHALATION 2.5 mg Q2H PRN PRN Administration SHORTNESS OF BREATH Albuterol/Ipratropium 3 ml 12/13/18 15:45 12/17/18 12:51 Duoneb INHALATION 3 ml Q6HWA.RT WARREN Administration Allopurinol 300 mg 12/14/18 06:00 12/17/18 07:21 Zyloprim PO 300 mg DAILY WARREN Administration Atorvastatin Calcium 40 mg 12/13/18 22:00 12/16/18 21:10 Lipitor PO 40 mg QHS WARREN Administration Bisacodyl 10 mg 12/13/18 21:47 Dulcolax PO DAILY PRN Constipation Calamine/Phenol 1 applic 12/13/18 18:00 12/17/18 17:20 Calmoseptine Ointment TOPICAL 1 applicatio BID WARREN Administration Protocol Clopidogrel Bisulfate 75 mg 12/14/18 06:00 12/17/18 06:56 Plavix PO 75 mg DAILY WARREN Administration Doxazosin Mesylate 8 mg 12/13/18 22:00 12/16/18 21:10 Cardura PO 8 mg QHS WARREN Administration Finasteride 5 mg 12/14/18 06:00 12/17/18 06:57 Proscar PO 5 mg DAILY WARREN Administration Furosemide 20 mg 12/14/18 10:00 12/17/18 10:34 Lasix IV 20 mg BID@1000,1800 WARREN Administration Glimepiride 2 mg 12/14/18 08:00 12/17/18 08:35 Amaryl PO 2 mg DAILY@0800 WARREN Administration Guaifenesin 1,200 mg 12/13/18 18:00 12/17/18 17:18 Mucinex PO 1,200 mg BID WARREN Administration Losartan Potassium 100 mg 12/14/18 06:00 12/17/18 06:55 Cozaar PO 100 mg DAILY WARREN Administration Magnesium Oxide 400 mg 12/13/18 18:00 12/17/18 17:18 Mag-Ox 400 PO 400 mg BID WARREN Administration Methylprednisolone 4 mg 12/13/18 22:00 12/17/18 08:35 Medrol Dosepak PO 12/18/18 08:59 4 mg 0800,2200 [facility] Administration Taper Metolazone 2.5 mg 12/14/18 06:00 12/17/18 06:56 Zaroxolyn PO 2.5 mg DAILY WARREN Administration Metoprolol Tartrate 50 mg 12/13/18 18:00 12/17/18 17:18 Lopressor (Beta Kristel) PO 50 mg BID WARREN Administration Multi-Ingredient Cream 1 applic 12/15/18 06:00 12/17/18 06:55 Eucerin TOPICAL 1 applicatio 0600,2200 WARREN Administration Protocol Nutritional Formula (Lactose Free) 60 ml 12/13/18 22:00 12/17/18 17:18 Glucerna Shake PO 60 ml 4X/DAY WARREN Administration Nystatin 1 applic 12/13/18 22:00 12/17/18 06:56 Mycostatin Powder TOPICAL 1 applicatio 599,2199 WARREN Administration Protocol Pantoprazole Sodium 40 mg 12/14/18 06:00 12/17/18 06:56 Protonix PO 40 mg DAILY WARREN Administration Polyethylene Glycol 17 gm 12/14/18 06:00 12/17/18 07:02 Miralax PO 17 gm DAILY WARREN Administration Polysaccharide Iron Complex 150 mg 12/14/18 08:00 12/17/18 08:35 Ferrex 150 PO 150 mg DAILYCM WARREN Administration Fluticasone/Salmeterol 1 puff 12/13/18 18:00 12/17/18 17:13 Fluticasone-Salmeterol 232-14 IH 1 puff Q12 WARREN Administration Senna/Docusate Sodium 1 tablet 12/14/18 06:00 12/17/18 17:18 Senokot-S, Kyung-Colace PO 1 tablet BID WARREN Administration Sertraline HCl 100 mg 12/14/18 06:00 12/17/18 06:56 Zoloft PO 100 mg DAILY WARREN Administration Sodium Chloride 10 - 40 ml 12/15/18 11:50 12/16/18 21:12 IV 10 ml UD PRN Administration SALINE FLUSH Spironolactone 25 mg 12/13/18 18:00 12/17/18 17:18 Aldactone PO 25 mg BID WARREN Administration Tuberculin PPD 5 tu 12/21/18 10:00 Tubersol, Aplisol, Ppd ID 12/21/18 10:01 X1 ONE Problem List (Last Reviewed 12/08/18 @ 03:44 by Garrett Whitley MD) Debility (Acute) COPD (chronic obstructive pulmonary disease) (Chronic) Obstructive sleep apnea (Chronic) Super obesity (Chronic) Hypertension (Chronic) Acute on chronic diastolic heart failure (Acute) Thoracic aortic aneurysm (Chronic) Lymphedema (Chronic) Gout (Chronic) BPH (benign prostatic hyperplasia) (Chronic) Hypomagnesemia (Chronic) Diabetes mellitus (Chronic) Vital Signs Temp Pulse Resp BP Pulse Ox 98.1 F 62 22 H 131/56 H 96 12/17/18 15:35 12/17/18 17:18 12/17/18 15:35 12/17/18 17:18 12/17/18 15:35 Oxygen Flow Rate (L/min) 4 Oxygen Delivery Method Nasal Cannula Weight: 147.644 kg Body Mass Index (BMI) 51.2 Finger Stick Blood Glucose 171 Sodium 136 mmol/L (136-145) 12/16/18 05:26 Potassium 4.6 mmol/L (3.5-5.1) 12/16/18 05:26 Chloride 92 mmol/L (98-107) L 12/16/18 05:26 Carbon Dioxide 38.0 mmol/L (21.0-32.0) H 12/16/18 05:26 6 (5-15) 12/16/18 05:26 BUN 43 mg/dL (7-18) H 12/16/18 05:26 1.44 mg/dL (0.70-1.30) H 12/16/18 05:26 Est GFR (MDRD) Af Amer 61 mL/min (>60) 12/16/18 05:26 Est GFR (MDRD) Non-Af 51 mL/min (>60) L 12/16/18 05:26 29.9 RATIO (10-20) H 12/16/18 05:26 Glucose 190 mg/dL (74-106) H 12/16/18 05:26 Assessment/Plan: Psychotropic Medications: Unnecessary Medications: Bowel Regimen: - Provider Comments Provider responsibility: Provider responsible to enter orders to implement recommendations Provider Comments to Recommendations by Pharmacy: Agree
[2018-12-17 17:10] LABS: Bedside Glucose 229 mg/dL (70-110)
--- NOTE | 2018-12-17 17:56 | NURSING ---
New order for CMP, uric acid level and lipid profile in AM.
--- NOTE | 2018-12-17 18:05 | NURSING ---
Dr. Barr reviewed final urine culture, D/C Ceftin d/t patient being asymptomatic.
[2018-12-17] MEDS: Doxazosin 4 MG Tablet 8 MG PO (21:06)
[2018-12-17] MEDS: Atorvastatin Calcium 40 MG Tablet PO (21:07)
[2018-12-18] VITALS (10 sets, daily range): BP systolic 124–126; BP diastolic 60–61; PULSE 55–77; RESP 12–21; TEMP 36.9; O2SAT 3–98
[2018-12-18] MEDS: Glucerna Shake 120 ML LIQUID 60 ML PO ×4 (05:35→22:20)
[2018-12-18] MEDS: Fluticasone/Salmeterol 232-14 Inhaler 1 PUFF IH ×2 (05:36→17:39)
[2018-12-18] MEDS: Finasteride 5 MG Tablet PO (05:36)
[2018-12-18] MEDS: Spironolactone 25 MG Tablet PO ×2 (05:36→17:40)
[2018-12-18] MEDS: Magnesium Oxide 400 MG Tablet PO ×2 (05:37→17:40)
[2018-12-18] MEDS: Losartan Potassium 100 MG Tablet PO (05:37)
[2018-12-18] MEDS: Pantoprazole Sodium 40 MG Tablet PO (05:37)
[2018-12-18] MEDS: Clopidogrel Bisulfate 75 MG Tablet PO (05:37)
[2018-12-18] MEDS: Metoprolol Tartrate 50 MG Tablet PO ×2 (05:37→17:39)
[2018-12-18] MEDS: guaiFENesin 1,200 MG Tablet 1200 MG PO ×2 (05:37→17:40)
[2018-12-18] MEDS: Metolazone 2.5 MG Tablet PO (05:37)
[2018-12-18] MEDS: Allopurinol 300 MG Tablet PO (05:37)
[2018-12-18] MEDS: Senna/Docusate Sodium 1 Tablet PO ×2 (05:37→17:39)
[2018-12-18] MEDS: Menthol/Lanolin/Calamine/Znox 113 GM Tube 1 APPLIC TOPICAL ×2 (05:37→17:38)
[2018-12-18] MEDS: Polyethylene Glycol 3350 17 GM PACKET PO (05:38)
[2018-12-18] MEDS: Nystatin Powder 15gm Bottle 1 APPLIC TOPICAL ×2 (05:40→22:23)
[2018-12-18] MEDS: Sertraline 100 MG Tablet PO (05:41)
[2018-12-18 06:36] LABS: Bedside Glucose 226 mg/dL (70-110)
[2018-12-18] MEDS: Ipratropium/Albuterol Sulfate 3 ML AMPUL.NEB INHALATION ×2 (07:03→13:13)
[2018-12-18 07:35] LABS: ALB/GLOB Ratio 0.7 RATIO (0.9-2.4); AST(SGOT) 11 U/L (15-37); Alanine Aminotransfer ALT/SGPT 16 U/L (16-61); Albumin, Serum 2.8 g/dL (3.2-5.0); Alkaline Phosphatase 54 U/L (45-117); Anion Gap 4 (5-15); BUN 52 mg/dL (7-18); BUN/Creat Ratio 35.6 RATIO (10-20); Calcium,Total 8.3 mg/dL (8.5-10.1); Chloride 93 mmol/L (98-107); Cholesterol 123 mg/dL (200); Creatinine, Serum 1.46 mg/dL (0.70-1.30); EST Glomerular Filtration Rate 50 mL/min (>60); Est Glom Filt Rate - Afr Amer 60 mL/min (>60); Estimated Creatinine Clearance 42.29 ml/min; Globulin 4.2 g/dL (2.2-4.2); Glucose 213 mg/dL (74-106); High Density Lipoprotein 27 mg/dL; Potassium 4.1 mmol/L (3.5-5.1); Sodium Level 136 mmol/L (136-145); Triglycerides 263 mg/dL; Uric Acid 6.6 mg/dL (3.5-7.2); Very Low Density Lipoprotein 53 mg/dL (5-40)
[2018-12-18] MEDS: Glimepiride 2 MG Tablet PO (08:28)
[2018-12-18] MEDS: MethylPREDNISolone DosePak 4 MG BOX PO (08:28)
[2018-12-18] MEDS: Iron Polysaccharide Complex 150 MG CAPSULE PO (08:29)
[2018-12-18] MEDS: 0.9% NaCl Peripheral Flush Adult/Peds IV (10:41)
[2018-12-18] MEDS: Furosemide 20 MG/2 ML VIAL IV (10:41)
[2018-12-18 17:06] LABS: Bedside Glucose 258 mg/dL (70-110)
[2018-12-18] MEDS: Furosemide 20 MG Tablet PO (18:32)
[2018-12-18] MEDS: Doxazosin 4 MG Tablet 8 MG PO (22:22)
[2018-12-18] MEDS: Atorvastatin Calcium 40 MG Tablet PO (22:22)
[2018-12-19] VITALS (10 sets, daily range): BP systolic 124–137; BP diastolic 54–58; PULSE 56–72; RESP 12–25; TEMP 37.1; O2SAT 94–98
[2018-12-19] MEDS: Menthol/Lanolin/Calamine/Znox 113 GM Tube 1 APPLIC TOPICAL ×2 (05:42→17:13)
[2018-12-19] MEDS: Nystatin Powder 15gm Bottle 1 APPLIC TOPICAL ×2 (05:42→22:01)
[2018-12-19] MEDS: Glucerna Shake 120 ML LIQUID 60 ML PO ×4 (05:43→22:00)
[2018-12-19] MEDS: Polyethylene Glycol 3350 17 GM PACKET PO (05:44)
[2018-12-19] MEDS: Fluticasone/Salmeterol 232-14 Inhaler 1 PUFF IH ×2 (05:44→17:13)
[2018-12-19] MEDS: Senna/Docusate Sodium 1 Tablet PO ×2 (05:45→17:13)
[2018-12-19] MEDS: Metolazone 2.5 MG Tablet PO (05:45)
[2018-12-19] MEDS: Pantoprazole Sodium 40 MG Tablet PO (05:45)
[2018-12-19] MEDS: Magnesium Oxide 400 MG Tablet PO ×3 (05:45→17:13)
[2018-12-19] MEDS: Losartan Potassium 100 MG Tablet PO (05:45)
[2018-12-19] MEDS: Spironolactone 25 MG Tablet PO ×2 (05:45→17:13)
[2018-12-19] MEDS: Allopurinol 300 MG Tablet PO (05:45)
[2018-12-19] MEDS: Sertraline 100 MG Tablet PO (05:45)
[2018-12-19] MEDS: Clopidogrel Bisulfate 75 MG Tablet PO (05:45)
[2018-12-19] MEDS: Finasteride 5 MG Tablet PO (05:46)
[2018-12-19] MEDS: Metoprolol Tartrate 50 MG Tablet PO ×2 (05:46→17:13)
[2018-12-19] MEDS: guaiFENesin 1,200 MG Tablet 1200 MG PO ×2 (05:46→17:13)
[2018-12-19 06:36] LABS: Bedside Glucose 191 mg/dL (70-110)
[2018-12-19] MEDS: Ipratropium/Albuterol Sulfate 3 ML AMPUL.NEB INHALATION ×3 (06:57→17:00)
[2018-12-19] MEDS: Glimepiride 2 MG Tablet PO (08:04)
[2018-12-19] MEDS: Furosemide 20 MG Tablet PO (08:04)
[2018-12-19] MEDS: Iron Polysaccharide Complex 150 MG CAPSULE PO (08:04)
--- NOTE | 2018-12-19 14:49 | RAD_ITS ---
STUDY: X-RAY CHEST REASON FOR EXAM: Male, 73 years old. Cough TECHNIQUE: PA and lateral views of the chest COMPARISON: X-ray chest December 12, 2018 FINDINGS: Sternotomy wires are present. Right axillary clips are present. Mild pulmonary edema is present with small bilateral effusions. The heart is enlarged. There is no pneumothorax. The visualized osseous structures are within normal limits. RAD/Chest PA and Lateral IMPRESSION: Congestion with features described above. Electronically Signed: Cali Jurado, at 17:21 EDT Tel , Service support ,
--- NOTE | 2018-12-19 14:50 | NURSING ---
Addendum entered by Jayleen Sotomayor 12/19/18 17:22: 3 attempts made to start IV in RT arm & Lt hand were unsuccessful, RN pst supervisor notified. Addendum entered by Jayleen Sotomayor 12/19/18 17:11: dr barr reviewed xray, new order for IV lasix. Original Note: pt with very harsh coarse lung sounds T/O all berkowitz. Frequent coughing noted. Dr Barr update,new order chest xray.
[2018-12-19 16:50] LABS: Bedside Glucose 190 mg/dL (70-110)
[2018-12-19] MEDS: Furosemide 20 MG/2 ML VIAL IV (18:21)
[2018-12-19] MEDS: Atorvastatin Calcium 40 MG Tablet PO (22:05)
[2018-12-19] MEDS: Doxazosin 4 MG Tablet 8 MG PO (22:06)
[2018-12-20] VITALS (8 sets, daily range): BP systolic 110–120; BP diastolic 50–60; PULSE 59–70; RESP 12–23; TEMP 36.7; O2SAT 95–99
--- NOTE | 2018-12-20 00:06 | NURSING ---
Patient was found sitting in recliner without BiPap on and O2 off. Spo2 was 88% O2 applied. Patient declined BiPap. Spo2 now 97%. Patient had thrown face mask for BiPap on bed. This nurse explained importance of using Machine to help his breathing. Patient then agreed to wear it tonight. Resp therapists in room now to place on machine.
[2018-12-20] MEDS: Glucerna Shake 120 ML LIQUID 60 ML PO ×4 (04:49→20:51)
[2018-12-20] MEDS: Metoprolol Tartrate 50 MG Tablet PO ×2 (04:51→18:26)
[2018-12-20] MEDS: Fluticasone/Salmeterol 232-14 Inhaler 1 PUFF IH ×2 (04:51→18:24)
[2018-12-20] MEDS: Losartan Potassium 100 MG Tablet PO (04:51)
[2018-12-20] MEDS: Polyethylene Glycol 3350 17 GM PACKET PO (04:51)
[2018-12-20] MEDS: Clopidogrel Bisulfate 75 MG Tablet PO (04:51)
[2018-12-20] MEDS: Pantoprazole Sodium 40 MG Tablet PO (04:52)
[2018-12-20] MEDS: Sertraline 100 MG Tablet PO (04:52)
[2018-12-20] MEDS: Spironolactone 25 MG Tablet PO ×2 (04:52→18:26)
[2018-12-20] MEDS: Allopurinol 300 MG Tablet PO (04:52)
[2018-12-20] MEDS: Senna/Docusate Sodium 1 Tablet PO ×2 (04:52→18:26)
[2018-12-20] MEDS: Metolazone 2.5 MG Tablet PO (04:52)
[2018-12-20] MEDS: Finasteride 5 MG Tablet PO (04:53)
[2018-12-20] MEDS: guaiFENesin 1,200 MG Tablet 1200 MG PO ×2 (04:53→18:26)
[2018-12-20] MEDS: Menthol/Lanolin/Calamine/Znox 113 GM Tube 1 APPLIC TOPICAL ×2 (04:53→18:25)
[2018-12-20] MEDS: Nystatin Powder 15gm Bottle 1 APPLIC TOPICAL ×2 (04:55→20:53)
[2018-12-20] MEDS: Magnesium Oxide 400 MG Tablet PO ×2 (04:58→18:26)
[2018-12-20 06:36] LABS: Bedside Glucose 216 mg/dL (70-110)
[2018-12-20] MEDS: Ipratropium/Albuterol Sulfate 3 ML AMPUL.NEB INHALATION ×2 (06:50→13:10)
[2018-12-20] MEDS: Iron Polysaccharide Complex 150 MG CAPSULE PO (08:21)
[2018-12-20] MEDS: Glimepiride 2 MG Tablet PO (08:21)
--- NOTE | 2018-12-20 08:52 | NURSING ---
Addendum entered by Jayleen Sotomayor 12/20/18 18:42: new order for sputum culture & to start doxy [id number] Original Note: pt with audible moist cough/breathing. yellowish/malagon sputum. pt spitting it up on coughing. moist resp. Dr Barr aware, new order for increase in IV Lasix. Given this AM. pt updated.
[2018-12-20] MEDS: Furosemide 40 MG/4 ML Vial IV ×2 (08:55→17:53)
[2018-12-20 17:21] LABS: Bedside Glucose 224 mg/dL (70-110)
[2018-12-20] MEDS: 0.9% NaCl Peripheral Flush Adult/Peds IV (17:53)
[2018-12-20] MEDS: Doxycycline 100 MG CAPSULE PO (18:39)
[2018-12-20] MEDS: Doxazosin 4 MG Tablet 8 MG PO (20:52)
[2018-12-20] MEDS: Atorvastatin Calcium 40 MG Tablet PO (20:52)
--- NOTE | 2018-12-20 21:30 | CPS ---
pt refused bipap at this time, pt told to call when ready to use.
[2018-12-21] VITALS (9 sets, daily range): BP systolic 122–128; BP diastolic 54–56; PULSE 53–65; RESP 12–27; TEMP 36.8; O2SAT 95–98
--- NOTE | 2018-12-21 03:36 | CPS ---
Pt refused Bipap, pt wathcing TV and said he would call when ready to go on.
[2018-12-21] MEDS: Magnesium Oxide 400 MG Tablet PO ×2 (05:20→18:00)
[2018-12-21] MEDS: Sertraline 100 MG Tablet PO (05:20)
[2018-12-21] MEDS: Pantoprazole Sodium 40 MG Tablet PO (05:20)
[2018-12-21] MEDS: Senna/Docusate Sodium 1 Tablet PO ×2 (05:20→17:59)
[2018-12-21] MEDS: Metolazone 2.5 MG Tablet PO (05:20)
[2018-12-21] MEDS: Allopurinol 300 MG Tablet PO (05:20)
[2018-12-21] MEDS: Finasteride 5 MG Tablet PO (05:20)
[2018-12-21] MEDS: Clopidogrel Bisulfate 75 MG Tablet PO (05:20)
[2018-12-21] MEDS: guaiFENesin 1,200 MG Tablet 1200 MG PO ×2 (05:20→18:00)
[2018-12-21] MEDS: Spironolactone 25 MG Tablet PO ×2 (05:21→17:59)
[2018-12-21] MEDS: Glucerna Shake 120 ML LIQUID 60 ML PO ×4 (05:21→21:42)
[2018-12-21] MEDS: Doxycycline 100 MG CAPSULE PO ×2 (05:21→17:59)
[2018-12-21] MEDS: Metoprolol Tartrate 50 MG Tablet PO ×2 (05:21→18:00)
[2018-12-21] MEDS: Losartan Potassium 100 MG Tablet PO (05:21)
[2018-12-21] MEDS: Nystatin Powder 15gm Bottle 1 APPLIC TOPICAL ×2 (05:22→21:43)
[2018-12-21] MEDS: Menthol/Lanolin/Calamine/Znox 113 GM Tube 1 APPLIC TOPICAL ×2 (05:22→18:02)
[2018-12-21] MEDS: Polyethylene Glycol 3350 17 GM PACKET PO (05:23)
[2018-12-21] MEDS: Fluticasone/Salmeterol 232-14 Inhaler 1 PUFF IH ×2 (05:34→18:01)
[2018-12-21 05:55] LABS: Absolute Lymphocyte Count 0.72 X10^3/uL (0.83-4.51); Absolute Neutrophil Count 7.8 X10^3/uL (2.0-7.7); Basophil# 0.03 X10^3/uL; Basophil% 0.3 % (0-1); Eosinophil# 0.24 X10^3/uL; Eosinophils% 2.5 % (0-5); Hematocrit 33.8 % (40-54); Hemoglobin 10.5 g/dL (13.0-16.5); Lymphocyte # 0.72 X10^3/ul (4.0); Lymphocyte % 7.6 % (19-41); Mean Corp Hgb Conc 31.1 g/dL (32-36); Mean Corpuscular Volume 83.7 fL (80-94); Mean Platelet Vol. 10.1 fl (6.2-12.0); Monocyte# 0.63 X10^3/uL; Monocyte% 6.7 % (0-10); NRBC Flagged by Analyzer 0 % (0-5); Neutrophil # 7.77 X10^3/uL (2.7-7.7); Neutrophil % 82.5 % (47-70); Platelet Count 191 K/mm3 (150-450); RBC Distribution Width CV 18.6 % (11.6-14.6); RBC Distribution Width SD 56.8 fl (35.1-43.9); Red Blood Count 4.04 M/mm3 (4.6-6.2); White Blood Count 9.4 K/mm3 (4.4-11.0)
[2018-12-21 06:13] LABS: Anion Gap 7 (5-15); BUN 70 mg/dL (7-18); Calcium,Total 8.3 mg/dL (8.5-10.1); Chloride 95 mmol/L (98-107); Creatinine, Serum 1.84 mg/dL (0.70-1.30); EST Glomerular Filtration Rate 38 mL/min (>60); Est Glom Filt Rate - Afr Amer 46 mL/min (>60); Estimated Creatinine Clearance 33.56 ml/min; Glucose 174 mg/dL (74-106); Potassium 4.1 mmol/L (3.5-5.1); Sodium Level 137 mmol/L (136-145)
[2018-12-21 06:56] LABS: Bedside Glucose 226 mg/dL (70-110)
[2018-12-21] MEDS: Iron Polysaccharide Complex 150 MG CAPSULE PO (09:05)
[2018-12-21] MEDS: Glimepiride 2 MG Tablet PO (09:05)
--- NOTE | 2018-12-21 09:07 | NURSING ---
New order to decrease IV lasix to 20mg BID, recheck BMP .
[2018-12-21] MEDS: Tuberculin,Purif.prot.deriv. 50 TU/ML Vial 5 ML ID (09:34)
[2018-12-21] MEDS: Furosemide 20 MG Tablet PO ×2 (10:41→17:59)
[2018-12-21] MEDS: 0.9% NaCl Peripheral Flush Adult/Peds IV (10:42)
[2018-12-21 17:05] LABS: Bedside Glucose 232 mg/dL (70-110)
[2018-12-21] MEDS: Albuterol 2.5 MG/3 ML VIAL.NEB. INHALATION (18:36)
[2018-12-21] MEDS: Doxazosin 4 MG Tablet 8 MG PO (21:42)
[2018-12-21] MEDS: Atorvastatin Calcium 40 MG Tablet PO (21:42)
[2018-12-22] VITALS (8 sets, daily range): BP systolic 117–131; BP diastolic 50–65; PULSE 55–64; RESP 12–27; TEMP 36.7; O2SAT 94–98
[2018-12-22] MEDS: Glucerna Shake 120 ML LIQUID 60 ML PO (04:55)
[2018-12-22] MEDS: Fluticasone/Salmeterol 232-14 Inhaler 1 PUFF IH ×2 (04:55→18:18)
[2018-12-22] MEDS: Finasteride 5 MG Tablet PO (04:56)
[2018-12-22] MEDS: Polyethylene Glycol 3350 17 GM PACKET PO (04:56)
[2018-12-22] MEDS: Menthol/Lanolin/Calamine/Znox 113 GM Tube 1 APPLIC TOPICAL ×2 (04:56→18:24)
[2018-12-22] MEDS: Clopidogrel Bisulfate 75 MG Tablet PO (04:56)
[2018-12-22] MEDS: Nystatin Powder 15gm Bottle 1 APPLIC TOPICAL ×2 (04:57→20:36)
[2018-12-22] MEDS: Pantoprazole Sodium 40 MG Tablet PO (04:57)
[2018-12-22] MEDS: Losartan Potassium 100 MG Tablet PO (04:57)
[2018-12-22] MEDS: Magnesium Oxide 400 MG Tablet PO ×2 (04:58→18:21)
[2018-12-22] MEDS: Metoprolol Tartrate 50 MG Tablet PO ×2 (04:58→18:20)
[2018-12-22] MEDS: Allopurinol 300 MG Tablet PO (04:58)
[2018-12-22] MEDS: Sertraline 100 MG Tablet PO (04:58)
[2018-12-22] MEDS: Metolazone 2.5 MG Tablet PO (04:58)
[2018-12-22] MEDS: Spironolactone 25 MG Tablet PO ×2 (04:59→18:20)
[2018-12-22] MEDS: guaiFENesin 1,200 MG Tablet 1200 MG PO ×2 (04:59→18:21)
[2018-12-22] MEDS: Doxycycline 100 MG CAPSULE PO ×2 (05:00→18:20)
[2018-12-22] MEDS: Senna/Docusate Sodium 1 Tablet PO ×2 (05:04→18:22)
[2018-12-22 06:45] LABS: Bedside Glucose 209 mg/dL (70-110)
[2018-12-22] MEDS: Glimepiride 2 MG Tablet PO (08:14)
[2018-12-22] MEDS: Iron Polysaccharide Complex 150 MG CAPSULE PO (08:14)
[2018-12-22] MEDS: 0.9% NaCl Peripheral Flush Adult/Peds IV (09:35)
[2018-12-22] MEDS: Furosemide 20 MG Tablet PO ×2 (09:36→18:20)
--- NOTE | 2018-12-22 09:43 | NURSING ---
THIS NURSE NOTICED THAT IV SITE WAS RED,NO COMPLANTS FROM PT. WENT TO FLUSH AND NS RAN OUT UNDER NEATH DRESSING. PER COREY BOX OK TO PULL IV OUT.
--- NOTE | 2018-12-22 11:47 | CASEMGMT ---
Social Work IDT met with patient, spouse, and sister for care plan meeting. Discussed making progress in therapy. Pt doing better than was at home. Discussed barriers with pt about being more independent at home - pt stated lack of motivation. Encouraged pt to keep getting stronger and staying independent when return home as cannot care for him. Sister shared concerns about hygiene - pt stated he did not feel like he had a problem. Discussed Palliative Care - pt agreed. Pt agreed to getting HHC upon DC as well - noncompliant with prior HHC. Therapy still working with pt on making further improvements, and nursing monitoring wounds and medical issues. Will continue to follow for discharge planning. Referral made to Palliative. FARTUN CastW
[2018-12-22] MEDS: Albuterol 2.5 MG/3 ML VIAL.NEB. INHALATION (13:58)
[2018-12-22] MEDS: Atorvastatin Calcium 40 MG Tablet PO (20:35)
[2018-12-22] MEDS: Doxazosin 4 MG Tablet 8 MG PO (20:36)
[2018-12-23] VITALS (8 sets, daily range): BP systolic 106–136; BP diastolic 72–76; PULSE 52–66; RESP 12–22; TEMP 36.3; O2SAT 98–99
[2018-12-23] MEDS: Acetaminophen 500 MG Tablet 1000 MG PO (00:21)
[2018-12-23] MEDS: Doxycycline 100 MG CAPSULE PO ×2 (04:48→17:40)
[2018-12-23] MEDS: Magnesium Oxide 400 MG Tablet PO ×2 (04:48→17:40)
[2018-12-23] MEDS: Fluticasone/Salmeterol 232-14 Inhaler 1 PUFF IH ×2 (04:48→17:39)
[2018-12-23] MEDS: Polyethylene Glycol 3350 17 GM PACKET PO (04:48)
[2018-12-23] MEDS: Losartan Potassium 100 MG Tablet PO (04:48)
[2018-12-23] MEDS: Allopurinol 300 MG Tablet PO (04:48)
[2018-12-23] MEDS: Finasteride 5 MG Tablet PO (04:49)
[2018-12-23] MEDS: Metolazone 2.5 MG Tablet PO (04:49)
[2018-12-23] MEDS: Pantoprazole Sodium 40 MG Tablet PO (04:49)
[2018-12-23] MEDS: Sertraline 100 MG Tablet PO (04:49)
[2018-12-23] MEDS: guaiFENesin 1,200 MG Tablet 1200 MG PO ×2 (04:49→17:40)
[2018-12-23] MEDS: Clopidogrel Bisulfate 75 MG Tablet PO (04:49)
[2018-12-23] MEDS: Senna/Docusate Sodium 1 Tablet PO ×2 (04:49→17:40)
[2018-12-23] MEDS: Metoprolol Tartrate 50 MG Tablet PO ×2 (04:50→17:42)
[2018-12-23] MEDS: Spironolactone 25 MG Tablet PO ×2 (04:50→17:40)
[2018-12-23] MEDS: Menthol/Lanolin/Calamine/Znox 113 GM Tube 1 APPLIC TOPICAL ×2 (04:51→17:38)
[2018-12-23] MEDS: Nystatin Powder 15gm Bottle 1 APPLIC TOPICAL ×2 (04:51→19:48)
[2018-12-23 06:09] LABS: Anion Gap 6 (5-15); BUN 78 mg/dL (7-18); BUN/Creat Ratio 44.8 RATIO (10-20); Calcium,Total 8.5 mg/dL (8.5-10.1); Chloride 96 mmol/L (98-107); Creatinine, Serum 1.74 mg/dL (0.70-1.30); EST Glomerular Filtration Rate 41 mL/min (>60); Est Glom Filt Rate - Afr Amer 49 mL/min (>60); Estimated Creatinine Clearance 35.49 ml/min; Glucose 170 mg/dL (74-106); Potassium 4.6 mmol/L (3.5-5.1); Sodium Level 138 mmol/L (136-145)
[2018-12-23 06:16] LABS: Bedside Glucose 167 mg/dL (70-110)
[2018-12-23] MEDS: Glimepiride 2 MG Tablet PO (08:10)
[2018-12-23] MEDS: Iron Polysaccharide Complex 150 MG CAPSULE PO (08:10)
--- NOTE | 2018-12-23 08:22 | MDS.RN ---
Information for the mds was obtained from review of the clinical record, interview of resident, staff, and direct observation of resident's care.
[2018-12-23] MEDS: Furosemide 20 MG Tablet PO ×2 (10:45→17:42)
[2018-12-23] MEDS: Albuterol 2.5 MG/3 ML VIAL.NEB. INHALATION (15:44)
[2018-12-23 17:16] LABS: Bedside Glucose 215 mg/dL (70-110)
[2018-12-23] MEDS: Doxazosin 4 MG Tablet 8 MG PO (19:49)
[2018-12-23] MEDS: Atorvastatin Calcium 40 MG Tablet PO (19:50)
[2018-12-24 01:10] VITALS: PULSE 56; RESP 12; RESP 25; O2SAT 98
[2018-12-24 04:05] VITALS: PULSE 58; RESP 12; RESP 19; O2SAT 96
[2018-12-24 05:05] VITALS: BP 137/61; PULSE 58
[2018-12-24] MEDS: Doxycycline 100 MG CAPSULE PO ×2 (05:05→17:30)
[2018-12-24] MEDS: Magnesium Oxide 400 MG Tablet PO ×2 (05:05→17:36)
[2018-12-24] MEDS: Metoprolol Tartrate 50 MG Tablet PO (05:05)
[2018-12-24] MEDS: Polyethylene Glycol 3350 17 GM PACKET PO (05:06)
[2018-12-24] MEDS: guaiFENesin 1,200 MG Tablet 1200 MG PO ×2 (05:06→17:36)
[2018-12-24] MEDS: Senna/Docusate Sodium 1 Tablet PO ×2 (05:06→17:36)
[2018-12-24] MEDS: Pantoprazole Sodium 40 MG Tablet PO (05:06)
[2018-12-24] MEDS: Allopurinol 300 MG Tablet PO (05:06)
[2018-12-24] MEDS: Finasteride 5 MG Tablet PO (05:06)
[2018-12-24] MEDS: Losartan Potassium 100 MG Tablet PO (05:06)
[2018-12-24] MEDS: Metolazone 2.5 MG Tablet PO (05:06)
[2018-12-24] MEDS: Sertraline 100 MG Tablet PO (05:06)
[2018-12-24] MEDS: Spironolactone 25 MG Tablet PO ×2 (05:06→17:30)
[2018-12-24] MEDS: Clopidogrel Bisulfate 75 MG Tablet PO (05:06)
[2018-12-24] MEDS: Menthol/Lanolin/Calamine/Znox 113 GM Tube 1 APPLIC TOPICAL ×2 (05:08→17:29)
[2018-12-24] MEDS: Nystatin Powder 15gm Bottle 1 APPLIC TOPICAL ×2 (05:09→21:16)
[2018-12-24 06:26] LABS: Bedside Glucose 176 mg/dL (70-110)
[2018-12-24] MEDS: Fluticasone/Salmeterol 232-14 Inhaler 1 PUFF IH ×2 (06:57→17:29)
[2018-12-24] MEDS: Iron Polysaccharide Complex 150 MG CAPSULE PO (07:58)
[2018-12-24] MEDS: Glimepiride 2 MG Tablet PO (07:58)
[2018-12-24] MEDS: Furosemide 20 MG Tablet PO ×2 (10:19→17:31)
[2018-12-24 16:00] VITALS: BP 122/49; PULSE 59; RESP 18; TEMP 36.8; O2SAT 100
[2018-12-24 17:31] VITALS: BP 126/59; PULSE 64
[2018-12-24 17:31] LABS: Bedside Glucose 228 mg/dL (70-110)
[2018-12-24] MEDS: Metoprolol Tartrate 25 MG Tablet PO (17:31)
[2018-12-24] MEDS: Atorvastatin Calcium 40 MG Tablet PO (21:15)
[2018-12-24] MEDS: Doxazosin 4 MG Tablet 8 MG PO (21:15)
[2018-12-25 00:25] VITALS: PULSE 60; RESP 12; RESP 22; O2SAT 96
[2018-12-25] MEDS: Acetaminophen 500 MG Tablet 1000 MG PO (01:39)
[2018-12-25] MEDS: Doxycycline 100 MG CAPSULE PO ×2 (06:14→17:30)
[2018-12-25] MEDS: Finasteride 5 MG Tablet PO (06:14)
[2018-12-25] MEDS: Metolazone 2.5 MG Tablet PO (06:14)
[2018-12-25] MEDS: Allopurinol 300 MG Tablet PO (06:14)
[2018-12-25] MEDS: Losartan Potassium 100 MG Tablet PO (06:14)
[2018-12-25] MEDS: Magnesium Oxide 400 MG Tablet PO ×2 (06:14→17:30)
[2018-12-25] MEDS: Sertraline 100 MG Tablet PO (06:14)
[2018-12-25] MEDS: Polyethylene Glycol 3350 17 GM PACKET PO (06:14)
[2018-12-25] MEDS: Senna/Docusate Sodium 1 Tablet PO ×2 (06:14→17:30)
[2018-12-25] MEDS: Spironolactone 25 MG Tablet PO ×2 (06:14→17:30)
[2018-12-25] MEDS: Clopidogrel Bisulfate 75 MG Tablet PO (06:14)
[2018-12-25] MEDS: guaiFENesin 1,200 MG Tablet 1200 MG PO ×2 (06:15→17:30)
[2018-12-25 06:23] VITALS: BP 130/58; PULSE 54
[2018-12-25] MEDS: Metoprolol Tartrate 25 MG Tablet PO ×2 (06:23→17:29)
[2018-12-25] MEDS: Menthol/Lanolin/Calamine/Znox 113 GM Tube 1 APPLIC TOPICAL ×2 (06:24→17:31)
[2018-12-25] MEDS: Nystatin Powder 15gm Bottle 1 APPLIC TOPICAL ×2 (06:25→20:55)
[2018-12-25] MEDS: Pantoprazole Sodium 40 MG Tablet PO (06:26)
[2018-12-25] MEDS: Fluticasone/Salmeterol 232-14 Inhaler 1 PUFF IH ×2 (06:27→17:25)
[2018-12-25 06:41] LABS: Bedside Glucose 125 mg/dL (70-110)
[2018-12-25 08:12] VITALS: PULSE 60; RESP 14
[2018-12-25] MEDS: Albuterol 2.5 MG/3 ML VIAL.NEB. INHALATION (08:12)
[2018-12-25] MEDS: Iron Polysaccharide Complex 150 MG CAPSULE PO (08:50)
[2018-12-25] MEDS: Glimepiride 2 MG Tablet PO (08:50)
[2018-12-25] MEDS: Furosemide 20 MG Tablet PO ×2 (10:20→17:30)
[2018-12-25 13:15] VITALS: PULSE 54; RESP 18; O2SAT 98
[2018-12-25 16:00] VITALS: BP 132/57; PULSE 56; RESP 16; TEMP 36.5; O2SAT 96
[2018-12-25 17:06] LABS: Bedside Glucose 245 mg/dL (70-110)
[2018-12-25 17:29] VITALS: BP 132/57; PULSE 64
[2018-12-25] MEDS: Doxazosin 4 MG Tablet 8 MG PO (20:56)
[2018-12-25] MEDS: Atorvastatin Calcium 40 MG Tablet PO (20:58)
[2018-12-26] VITALS (8 sets, daily range): BP systolic 105–148; BP diastolic 54–77; PULSE 52–81; RESP 12–26; TEMP 36.7; O2SAT 97–99
[2018-12-26] MEDS: Doxycycline 100 MG CAPSULE PO ×2 (06:13→17:46)
[2018-12-26] MEDS: Polyethylene Glycol 3350 17 GM PACKET PO (06:13)
[2018-12-26] MEDS: guaiFENesin 1,200 MG Tablet 1200 MG PO ×2 (06:14→17:46)
[2018-12-26] MEDS: Metoprolol Tartrate 25 MG Tablet PO ×2 (06:14→17:46)
[2018-12-26] MEDS: Pantoprazole Sodium 40 MG Tablet PO (06:14)
[2018-12-26] MEDS: Sertraline 100 MG Tablet PO (06:14)
[2018-12-26] MEDS: Senna/Docusate Sodium 1 Tablet PO ×2 (06:14→17:46)
[2018-12-26] MEDS: Magnesium Oxide 400 MG Tablet PO ×2 (06:14→17:46)
[2018-12-26] MEDS: Clopidogrel Bisulfate 75 MG Tablet PO (06:14)
[2018-12-26] MEDS: Losartan Potassium 100 MG Tablet PO (06:14)
[2018-12-26] MEDS: Finasteride 5 MG Tablet PO (06:14)
[2018-12-26] MEDS: Spironolactone 25 MG Tablet PO ×2 (06:14→17:46)
[2018-12-26] MEDS: Menthol/Lanolin/Calamine/Znox 113 GM Tube 1 APPLIC TOPICAL ×3 (06:15→20:35)
[2018-12-26] MEDS: Allopurinol 300 MG Tablet PO (06:15)
[2018-12-26] MEDS: Metolazone 2.5 MG Tablet PO (06:15)
[2018-12-26] MEDS: Nystatin Powder 15gm Bottle 1 APPLIC TOPICAL ×2 (06:16→20:35)
[2018-12-26] MEDS: Fluticasone/Salmeterol 232-14 Inhaler 1 PUFF IH ×2 (06:18→17:17)
[2018-12-26 06:50] LABS: Bedside Glucose 150 mg/dL (70-110)
[2018-12-26] MEDS: Iron Polysaccharide Complex 150 MG CAPSULE PO (07:56)
[2018-12-26] MEDS: Glimepiride 2 MG Tablet PO (07:56)
[2018-12-26] MEDS: Furosemide 20 MG Tablet PO ×2 (10:00→17:46)
[2018-12-26] MEDS: Albuterol 2.5 MG/3 ML VIAL.NEB. INHALATION (16:05)
[2018-12-26 17:40] LABS: Bedside Glucose 264 mg/dL (70-110)
[2018-12-26] MEDS: Doxazosin 4 MG Tablet 8 MG PO (20:36)
[2018-12-26] MEDS: Atorvastatin Calcium 40 MG Tablet PO (20:36)
[2018-12-27] VITALS (9 sets, daily range): BP systolic 115–141; BP diastolic 51–52; PULSE 55–75; RESP 12–20; TEMP 36.3; O2SAT 97–98
[2018-12-27] MEDS: Metoprolol Tartrate 25 MG Tablet PO ×2 (05:15→17:14)
[2018-12-27] MEDS: Magnesium Oxide 400 MG Tablet PO ×2 (05:15→17:13)
[2018-12-27] MEDS: Allopurinol 300 MG Tablet PO (05:16)
[2018-12-27] MEDS: Metolazone 2.5 MG Tablet PO (05:16)
[2018-12-27] MEDS: Doxycycline 100 MG CAPSULE PO ×2 (05:16→17:13)
[2018-12-27] MEDS: Sertraline 100 MG Tablet PO (05:16)
[2018-12-27] MEDS: guaiFENesin 1,200 MG Tablet 1200 MG PO ×2 (05:16→17:13)
[2018-12-27] MEDS: Spironolactone 25 MG Tablet PO ×2 (05:16→17:15)
[2018-12-27] MEDS: Losartan Potassium 100 MG Tablet PO (05:16)
[2018-12-27] MEDS: Finasteride 5 MG Tablet PO (05:16)
[2018-12-27] MEDS: Senna/Docusate Sodium 1 Tablet PO ×2 (05:16→17:13)
[2018-12-27] MEDS: Clopidogrel Bisulfate 75 MG Tablet PO (05:16)
[2018-12-27] MEDS: Pantoprazole Sodium 40 MG Tablet PO (05:16)
[2018-12-27] MEDS: Fluticasone/Salmeterol 232-14 Inhaler 1 PUFF IH ×2 (05:17→17:10)
[2018-12-27] MEDS: Polyethylene Glycol 3350 17 GM PACKET PO (05:17)
[2018-12-27] MEDS: Nystatin Powder 15gm Bottle 1 APPLIC TOPICAL ×2 (05:21→20:45)
[2018-12-27 06:25] LABS: Bedside Glucose 152 mg/dL (70-110)
--- NOTE | 2018-12-27 07:05 | CPS ---
Patient taken off BiPAP at this time and placed on 3lpm nasal cannula.
[2018-12-27] MEDS: Iron Polysaccharide Complex 150 MG CAPSULE PO (08:52)
[2018-12-27] MEDS: Furosemide 20 MG Tablet PO ×2 (08:52→17:13)
[2018-12-27] MEDS: Glimepiride 2 MG Tablet PO (08:52)
[2018-12-27] MEDS: Albuterol 2.5 MG/3 ML VIAL.NEB. INHALATION ×2 (09:04→13:21)
[2018-12-27 17:11] LABS: Bedside Glucose 249 mg/dL (70-110)
[2018-12-27] MEDS: Menthol/Lanolin/Calamine/Znox 113 GM Tube 1 APPLIC TOPICAL (17:15)
[2018-12-27] MEDS: Doxazosin 4 MG Tablet 8 MG PO (20:47)
[2018-12-27] MEDS: Atorvastatin Calcium 40 MG Tablet PO (20:47)
[2018-12-28 00:30] VITALS: PULSE 58; RESP 12; RESP 19; O2SAT 96
[2018-12-28 03:30] VITALS: PULSE 56; RESP 12; RESP 22; O2SAT 97
[2018-12-28] MEDS: Metolazone 2.5 MG Tablet PO (06:20)
[2018-12-28] MEDS: Allopurinol 300 MG Tablet PO (06:20)
[2018-12-28] MEDS: Sertraline 100 MG Tablet PO (06:20)
[2018-12-28] MEDS: Fluticasone/Salmeterol 232-14 Inhaler 1 PUFF IH ×2 (06:21→17:20)
[2018-12-28 06:22] VITALS: BP 134/61; PULSE 64
[2018-12-28] MEDS: Losartan Potassium 100 MG Tablet PO (06:22)
[2018-12-28] MEDS: Pantoprazole Sodium 40 MG Tablet PO (06:22)
[2018-12-28] MEDS: Magnesium Oxide 400 MG Tablet PO ×2 (06:22→17:21)
[2018-12-28] MEDS: Spironolactone 25 MG Tablet PO ×2 (06:22→17:21)
[2018-12-28] MEDS: Doxycycline 100 MG CAPSULE PO ×2 (06:22→17:21)
[2018-12-28] MEDS: Metoprolol Tartrate 25 MG Tablet PO ×2 (06:22→17:22)
[2018-12-28] MEDS: Clopidogrel Bisulfate 75 MG Tablet PO (06:22)
[2018-12-28] MEDS: guaiFENesin 1,200 MG Tablet 1200 MG PO ×2 (06:22→17:21)
[2018-12-28] MEDS: Senna/Docusate Sodium 1 Tablet PO ×2 (06:22→17:22)
[2018-12-28] MEDS: Finasteride 5 MG Tablet PO (06:22)
[2018-12-28] MEDS: Nystatin Powder 15gm Bottle 1 APPLIC TOPICAL ×2 (06:29→22:30)
[2018-12-28] MEDS: Menthol/Lanolin/Calamine/Znox 113 GM Tube 1 APPLIC TOPICAL ×2 (06:29→17:20)
[2018-12-28] MEDS: Polyethylene Glycol 3350 17 GM PACKET PO (06:30)
[2018-12-28 06:31] LABS: Absolute Neutrophil Count 5.3 X10^3/uL (2.0-7.7); Basophil# 0.03 X10^3/uL; Basophil% 0.4 % (0-1); Eosinophil# 0.22 X10^3/uL; Eosinophils% 3.2 % (0-5); Hematocrit 35.9 % (40-54); Lymphocyte % 11.6 % (19-41); Mean Corp Hgb Conc 30.6 g/dL (32-36); Mean Corpuscular Hgb 26.2 pg (27.0-32.0); Mean Corpuscular Volume 85.5 fL (80-94); Mean Platelet Vol. 10.4 fl (6.2-12.0); Monocyte# 0.49 X10^3/uL; Monocyte% 7.1 % (0-10); NRBC Flagged by Analyzer 0 % (0-5); Neutrophil # 5.29 X10^3/uL (2.7-7.7); Platelet Count 218 K/mm3 (150-450); RBC Distribution Width CV 18.4 % (11.6-14.6); RBC Distribution Width SD 57.3 fl (35.1-43.9); White Blood Count 6.9 K/mm3 (4.4-11.0)
[2018-12-28 06:39] LABS: Anion Gap 7 (5-15); BUN 56 mg/dL (7-18); Chloride 100 mmol/L (98-107); EST Glomerular Filtration Rate 45 mL/min (>60); Est Glom Filt Rate - Afr Amer 54 mL/min (>60); Estimated Creatinine Clearance 38.59 ml/min; Glucose 199 mg/dL (74-106); Potassium 4.6 mmol/L (3.5-5.1); Sodium Level 140 mmol/L (136-145)
[2018-12-28 06:41] LABS: Bedside Glucose 183 mg/dL (70-110)
[2018-12-28 07:50] VITALS: O2SAT 95
[2018-12-28] MEDS: Iron Polysaccharide Complex 150 MG CAPSULE PO (08:40)
[2018-12-28] MEDS: Furosemide 20 MG Tablet PO ×2 (08:40→17:21)
[2018-12-28] MEDS: Glimepiride 2 MG Tablet PO (08:40)
--- NOTE | 2018-12-28 12:46 | CASEMGMT ---
Social Work Spoke with pt's about potentially having pt discharge next week. understood. Received call from [facility] that it has been difficulty setting a time to meet with the pt and to discuss Palliative services as the does not drive. Spoke with about this and she does intend on making arrangements for the meeting. Encouraged to schedule a meeting prior to pt discharging as the services will be helpful for him once he is in the community - understood and was calling [facility] today. Will continue to follow for discharge planning. FARTUN CastW
[2018-12-28 16:00] VITALS: BP 117/57; PULSE 83; RESP 18; O2SAT 99
[2018-12-28 17:16] LABS: Bedside Glucose 287 mg/dL (70-110)
[2018-12-28 17:22] VITALS: BP 128/64; PULSE 66
[2018-12-28] MEDS: Doxazosin 4 MG Tablet 8 MG PO (22:29)
[2018-12-28] MEDS: Atorvastatin Calcium 40 MG Tablet PO (22:29)
[2018-12-29 01:00] VITALS: PULSE 60; RESP 12; RESP 20; O2SAT 95
[2018-12-29] MEDS: Nystatin Powder 15gm Bottle 1 APPLIC TOPICAL ×2 (04:38→22:13)
[2018-12-29] MEDS: Menthol/Lanolin/Calamine/Znox 113 GM Tube 1 APPLIC TOPICAL ×2 (04:38→17:31)
[2018-12-29] MEDS: Polyethylene Glycol 3350 17 GM PACKET PO (04:40)
[2018-12-29] MEDS: Magnesium Oxide 400 MG Tablet PO ×2 (04:40→17:27)
[2018-12-29] MEDS: Fluticasone/Salmeterol 232-14 Inhaler 1 PUFF IH ×2 (04:40→17:28)
[2018-12-29] MEDS: Clopidogrel Bisulfate 75 MG Tablet PO (04:40)
[2018-12-29] MEDS: Allopurinol 300 MG Tablet PO (04:40)
[2018-12-29] MEDS: Finasteride 5 MG Tablet PO (04:40)
[2018-12-29 04:41] VITALS: BP 157/71; PULSE 60
[2018-12-29] MEDS: Metolazone 2.5 MG Tablet PO (04:41)
[2018-12-29] MEDS: Pantoprazole Sodium 40 MG Tablet PO (04:41)
[2018-12-29] MEDS: Sertraline 100 MG Tablet PO (04:41)
[2018-12-29] MEDS: Metoprolol Tartrate 25 MG Tablet PO ×2 (04:41→17:27)
[2018-12-29] MEDS: Doxycycline 100 MG CAPSULE PO ×2 (04:41→17:27)
[2018-12-29] MEDS: Losartan Potassium 100 MG Tablet PO (04:42)
[2018-12-29] MEDS: guaiFENesin 1,200 MG Tablet 1200 MG PO ×2 (04:42→17:27)
[2018-12-29] MEDS: Spironolactone 25 MG Tablet PO ×2 (04:42→17:27)
[2018-12-29] MEDS: Senna/Docusate Sodium 1 Tablet PO ×2 (04:43→17:27)
[2018-12-29 06:36] VITALS: O2SAT 96
[2018-12-29 06:46] LABS: Bedside Glucose 184 mg/dL (70-110)
[2018-12-29] MEDS: Glimepiride 2 MG Tablet PO (09:12)
[2018-12-29] MEDS: Furosemide 20 MG Tablet PO ×2 (09:12→17:27)
[2018-12-29] MEDS: Iron Polysaccharide Complex 150 MG CAPSULE PO (09:12)
[2018-12-29 16:00] VITALS: BP 126/55; PULSE 65; RESP 20; TEMP 36.6; O2SAT 99
[2018-12-29 17:11] LABS: Bedside Glucose 189 mg/dL (70-110)
[2018-12-29 17:27] VITALS: BP 126/55; PULSE 65
[2018-12-29] MEDS: Doxazosin 4 MG Tablet 8 MG PO (22:14)
[2018-12-29] MEDS: Atorvastatin Calcium 40 MG Tablet PO (22:16)
[2018-12-29] MEDS: Acetaminophen 500 MG Tablet 1000 MG PO (22:23)
--- NOTE | 2018-12-30 00:46 | CPS ---
Placed pt. on BiPAP and soon later pt. requested to be taken off. Tried to make pt. more comfortable on BiPAP, but he still said he would like to come off machine. Placed pt. on 3L NC. Agreed to go back on BiPAP if distress in breathing is shown.
[2018-12-30] MEDS: Fluticasone/Salmeterol 232-14 Inhaler 1 PUFF IH ×2 (04:40→17:03)
[2018-12-30] MEDS: Polyethylene Glycol 3350 17 GM PACKET PO (04:40)
[2018-12-30 04:47] VITALS: BP 147/68; PULSE 60
[2018-12-30] MEDS: Allopurinol 300 MG Tablet PO (04:47)
[2018-12-30] MEDS: Clopidogrel Bisulfate 75 MG Tablet PO (04:47)
[2018-12-30] MEDS: Senna/Docusate Sodium 1 Tablet PO ×2 (04:47→17:08)
[2018-12-30] MEDS: Pantoprazole Sodium 40 MG Tablet PO (04:47)
[2018-12-30] MEDS: Sertraline 100 MG Tablet PO (04:47)
[2018-12-30] MEDS: Doxycycline 100 MG CAPSULE PO ×2 (04:47→17:07)
[2018-12-30] MEDS: Metolazone 2.5 MG Tablet PO (04:47)
[2018-12-30] MEDS: Losartan Potassium 100 MG Tablet PO (04:47)
[2018-12-30] MEDS: Metoprolol Tartrate 25 MG Tablet PO ×2 (04:47→17:07)
[2018-12-30] MEDS: Magnesium Oxide 400 MG Tablet PO ×2 (04:47→17:07)
[2018-12-30] MEDS: Nystatin Powder 15gm Bottle 1 APPLIC TOPICAL ×2 (04:48→20:25)
[2018-12-30] MEDS: guaiFENesin 1,200 MG Tablet 1200 MG PO ×2 (04:48→17:07)
[2018-12-30] MEDS: Finasteride 5 MG Tablet PO (04:48)
[2018-12-30] MEDS: Menthol/Lanolin/Calamine/Znox 113 GM Tube 1 APPLIC TOPICAL ×2 (04:48→17:04)
[2018-12-30] MEDS: Spironolactone 25 MG Tablet PO ×2 (04:48→17:04)
[2018-12-30 06:51] LABS: Bedside Glucose 128 mg/dL (70-110)
[2018-12-30] MEDS: Iron Polysaccharide Complex 150 MG CAPSULE PO (08:32)
[2018-12-30] MEDS: Glimepiride 2 MG Tablet PO (08:32)
[2018-12-30] MEDS: Furosemide 20 MG Tablet PO ×2 (09:16→17:08)
[2018-12-30 11:38] VITALS: O2SAT 98
[2018-12-30 15:42] VITALS: BP 131/62; PULSE 74; RESP 20; TEMP 36.9; O2SAT 96
[2018-12-30 17:07] VITALS: BP 131/62; PULSE 74
[2018-12-30 17:50] LABS: Bedside Glucose 233 mg/dL (70-110)
[2018-12-30 20:13] VITALS: BP 118/52; PULSE 62; RESP 18; TEMP 37.1
[2018-12-30] MEDS: Atorvastatin Calcium 40 MG Tablet PO (20:23)
[2018-12-30] MEDS: Doxazosin 4 MG Tablet 8 MG PO (20:23)
[2018-12-30] MEDS: Acetaminophen 500 MG Tablet 1000 MG PO (21:13)
[2018-12-31] VITALS (7 sets, daily range): BP systolic 132; BP diastolic 58; PULSE 57–67; RESP 12–18; TEMP 36.6; O2SAT 95–100
[2018-12-31] MEDS: Sertraline 100 MG Tablet PO (05:28)
[2018-12-31] MEDS: Allopurinol 300 MG Tablet PO (05:28)
[2018-12-31] MEDS: Pantoprazole Sodium 40 MG Tablet PO (05:29)
[2018-12-31] MEDS: Metolazone 2.5 MG Tablet PO (05:29)
[2018-12-31] MEDS: Spironolactone 25 MG Tablet PO ×2 (05:29→17:13)
[2018-12-31] MEDS: Magnesium Oxide 400 MG Tablet PO ×2 (05:29→17:13)
[2018-12-31] MEDS: Nystatin Powder 15gm Bottle 1 APPLIC TOPICAL ×2 (05:30→20:27)
[2018-12-31] MEDS: Losartan Potassium 100 MG Tablet PO (05:30)
[2018-12-31] MEDS: Finasteride 5 MG Tablet PO (05:30)
[2018-12-31] MEDS: Fluticasone/Salmeterol 232-14 Inhaler 1 PUFF IH ×2 (05:31→17:09)
[2018-12-31] MEDS: Metoprolol Tartrate 25 MG Tablet PO ×2 (05:33→17:13)
[2018-12-31] MEDS: guaiFENesin 1,200 MG Tablet 1200 MG PO ×2 (05:33→17:14)
[2018-12-31] MEDS: Menthol/Lanolin/Calamine/Znox 113 GM Tube 1 APPLIC TOPICAL ×2 (05:33→17:10)
[2018-12-31] MEDS: Clopidogrel Bisulfate 75 MG Tablet PO (05:33)
[2018-12-31 06:56] LABS: Bedside Glucose 165 mg/dL (70-110)
[2018-12-31] MEDS: Glimepiride 2 MG Tablet PO (08:12)
[2018-12-31] MEDS: Iron Polysaccharide Complex 150 MG CAPSULE PO (08:13)
[2018-12-31] MEDS: Furosemide 20 MG Tablet PO ×2 (10:43→17:12)
[2018-12-31 17:15] LABS: Bedside Glucose 179 mg/dL (70-110)
[2018-12-31] MEDS: Senna/Docusate Sodium 1 Tablet PO (17:15)
[2018-12-31] MEDS: Doxazosin 4 MG Tablet 8 MG PO (20:26)
[2018-12-31] MEDS: Atorvastatin Calcium 40 MG Tablet PO (20:26)
--- NOTE | 2019-01-01 00:58 | NURSING ---
Pt wore bipap machine for roughly 5 minutes and then called for staff to take it off. Pt stated I cannot wear that thing. Pt would not expressed why he did not want to wear it. Lots of education provided on importance of machine and why it is ordered by the doctor. Pt still refusing. 3l NC reapplied. Respiratory therapy notified. Pt resting in recliner with feet elevated and call light in reach.
[2019-01-01] MEDS: Finasteride 5 MG Tablet PO (04:17)
[2019-01-01] MEDS: Losartan Potassium 100 MG Tablet PO (04:17)
[2019-01-01] MEDS: Spironolactone 25 MG Tablet PO ×2 (04:17→17:14)
[2019-01-01] MEDS: Allopurinol 300 MG Tablet PO (04:18)
[2019-01-01] MEDS: Sertraline 100 MG Tablet PO (04:18)
[2019-01-01] MEDS: Clopidogrel Bisulfate 75 MG Tablet PO (04:19)
[2019-01-01] MEDS: guaiFENesin 1,200 MG Tablet 1200 MG PO ×2 (04:19→17:15)
[2019-01-01] MEDS: Fluticasone/Salmeterol 232-14 Inhaler 1 PUFF IH ×2 (04:19→17:12)
[2019-01-01] MEDS: Pantoprazole Sodium 40 MG Tablet PO (04:19)
[2019-01-01] MEDS: Magnesium Oxide 400 MG Tablet PO ×2 (04:19→17:15)
[2019-01-01] MEDS: Metolazone 2.5 MG Tablet PO (04:19)
[2019-01-01 04:20] VITALS: BP 122/51; PULSE 61
[2019-01-01] MEDS: Metoprolol Tartrate 25 MG Tablet PO ×2 (04:20→17:14)
[2019-01-01] MEDS: Nystatin Powder 15gm Bottle 1 APPLIC TOPICAL ×2 (04:20→22:51)
[2019-01-01] MEDS: Menthol/Lanolin/Calamine/Znox 113 GM Tube 1 APPLIC TOPICAL ×2 (04:21→17:13)
[2019-01-01 06:30] LABS: Bedside Glucose 145 mg/dL (70-110)
[2019-01-01 07:37] VITALS: O2SAT 98
[2019-01-01] MEDS: Iron Polysaccharide Complex 150 MG CAPSULE PO (08:03)
[2019-01-01] MEDS: Glimepiride 2 MG Tablet PO (08:03)
[2019-01-01 09:34] VITALS: PULSE 65; RESP 18; O2SAT 97
[2019-01-01] MEDS: Furosemide 20 MG Tablet PO ×2 (09:59→17:14)
--- NOTE | 2019-01-01 11:30 | NURSING ---
Respiratory applied Bipap, within 10min pt called to have it removed, educated pt but continues to refuse it, pt says he is doing ok with NC Pt continues to rest in recliner t/o the night
[2019-01-01 15:15] VITALS: BP 134/60; PULSE 73; RESP 20; TEMP 36.4; O2SAT 95
[2019-01-01 16:51] LABS: Bedside Glucose 253 mg/dL (70-110)
[2019-01-01 17:14] VITALS: BP 134/60; PULSE 73
[2019-01-01] MEDS: Atorvastatin Calcium 40 MG Tablet PO (22:47)
[2019-01-01] MEDS: Doxazosin 4 MG Tablet 8 MG PO (22:48)
[2019-01-02] VITALS (7 sets, daily range): BP systolic 118–139; BP diastolic 53–79; PULSE 58–70; RESP 12–23; TEMP 36.5; O2SAT 94–97
--- NOTE | 2019-01-02 03:00 | CPS ---
pt refusing BiPAP, says he can't tolerate the mask. Pt on 3 lpm Nasal cannula.
[2019-01-02] MEDS: Magnesium Oxide 400 MG Tablet PO ×2 (05:11→17:00)
[2019-01-02] MEDS: Sertraline 100 MG Tablet PO (05:11)
[2019-01-02] MEDS: Clopidogrel Bisulfate 75 MG Tablet PO (05:11)
[2019-01-02] MEDS: Pantoprazole Sodium 40 MG Tablet PO (05:11)
[2019-01-02] MEDS: Spironolactone 25 MG Tablet PO ×2 (05:11→16:59)
[2019-01-02] MEDS: Allopurinol 300 MG Tablet PO (05:11)
[2019-01-02] MEDS: Senna/Docusate Sodium 1 Tablet PO ×2 (05:11→17:00)
[2019-01-02] MEDS: Losartan Potassium 100 MG Tablet PO (05:11)
[2019-01-02] MEDS: guaiFENesin 1,200 MG Tablet 1200 MG PO ×2 (05:11→17:00)
[2019-01-02] MEDS: Metolazone 2.5 MG Tablet PO (05:11)
[2019-01-02] MEDS: Nystatin Powder 15gm Bottle 1 APPLIC TOPICAL ×2 (05:12→20:43)
[2019-01-02] MEDS: Finasteride 5 MG Tablet PO (05:12)
[2019-01-02] MEDS: Metoprolol Tartrate 25 MG Tablet PO ×2 (05:13→16:59)
[2019-01-02] MEDS: Fluticasone/Salmeterol 232-14 Inhaler 1 PUFF IH ×2 (05:13→16:56)
[2019-01-02] MEDS: Menthol/Lanolin/Calamine/Znox 113 GM Tube 1 APPLIC TOPICAL ×2 (05:14→16:56)
[2019-01-02 06:31] LABS: Bedside Glucose 168 mg/dL (70-110)
[2019-01-02] MEDS: Iron Polysaccharide Complex 150 MG CAPSULE PO (07:59)
[2019-01-02] MEDS: Glimepiride 2 MG Tablet PO (07:59)
[2019-01-02] MEDS: Furosemide 20 MG Tablet PO ×2 (10:04→16:59)
[2019-01-02 16:56] LABS: Bedside Glucose 184 mg/dL (70-110)
[2019-01-02] MEDS: Doxazosin 4 MG Tablet 8 MG PO (20:51)
[2019-01-02] MEDS: Atorvastatin Calcium 40 MG Tablet PO (20:52)
[2019-01-03] VITALS (7 sets, daily range): BP systolic 130–131; BP diastolic 53–65; PULSE 58–64; RESP 12–22; TEMP 36.5; O2SAT 95–100
--- NOTE | 2019-01-03 00:14 | CPS ---
Pt. refused to go on BiPAP initially. Education and positive encouragement done. Discussed benefits that are associated with wearing BiPAP. Pt. decided to go on BiPAP after this discussion. RN aware.
[2019-01-03] MEDS: Spironolactone 25 MG Tablet PO ×2 (04:32→17:07)
[2019-01-03] MEDS: Menthol/Lanolin/Calamine/Znox 113 GM Tube 1 APPLIC TOPICAL ×2 (04:32→17:07)
[2019-01-03] MEDS: Losartan Potassium 100 MG Tablet PO (04:32)
[2019-01-03] MEDS: Metoprolol Tartrate 25 MG Tablet PO ×2 (04:32→17:07)
[2019-01-03] MEDS: Fluticasone/Salmeterol 232-14 Inhaler 1 PUFF IH ×2 (04:33→17:05)
[2019-01-03] MEDS: Magnesium Oxide 400 MG Tablet PO ×2 (04:33→17:07)
[2019-01-03] MEDS: guaiFENesin 1,200 MG Tablet 1200 MG PO ×2 (04:33→17:07)
[2019-01-03] MEDS: Senna/Docusate Sodium 1 Tablet PO ×2 (04:34→17:07)
[2019-01-03] MEDS: Finasteride 5 MG Tablet PO (04:34)
[2019-01-03] MEDS: Sertraline 100 MG Tablet PO (04:34)
[2019-01-03] MEDS: Nystatin Powder 15gm Bottle 1 APPLIC TOPICAL ×2 (04:34→21:05)
[2019-01-03] MEDS: Pantoprazole Sodium 40 MG Tablet PO (04:34)
[2019-01-03] MEDS: Metolazone 2.5 MG Tablet PO (04:34)
[2019-01-03] MEDS: Allopurinol 300 MG Tablet PO (04:34)
[2019-01-03] MEDS: Clopidogrel Bisulfate 75 MG Tablet PO (04:36)
[2019-01-03 06:26] LABS: Bedside Glucose 148 mg/dL (70-110)
[2019-01-03] MEDS: Iron Polysaccharide Complex 150 MG CAPSULE PO (07:44)
[2019-01-03] MEDS: Glimepiride 2 MG Tablet PO (07:44)
[2019-01-03] MEDS: Furosemide 20 MG Tablet PO ×2 (09:34→17:07)
--- NOTE | 2019-01-03 13:04 | CASEMGMT ---
Social Work Pt progressing well with therapy and completing more tasks than was doing at home. Therapy recommending DC home with 01/07. Spoke with pt and whom agrees. Pt noncompliant with HHC prior, states he does not need it now. No DME needs. Pt and meeting with Palliative Care today - will follow after DC. Plan: DC home 01/07 with with Palliative Care. Kathrin Trivedi, FARTUN [employer]IGENCE DEVELOPER
[2019-01-03 17:05] LABS: Bedside Glucose 175 mg/dL (70-110)
--- NOTE | 2019-01-03 21:01 | PCM.DC ---
- Discharge Diagnoses Current Active Problems: Current Active and Chronic Problems (Last Reviewed 12/08/18 @ 03:44 by Garrett Whitley MD) Debility (Acute) COPD (chronic obstructive pulmonary disease) (Chronic) Obstructive sleep apnea (Chronic) Super obesity (Chronic) Hypertension (Chronic) Acute on chronic diastolic heart failure (Acute) Thoracic aortic aneurysm (Chronic) Lymphedema (Chronic) Gout (Chronic) BPH (benign prostatic hyperplasia) (Chronic) Hypomagnesemia (Chronic) Diabetes mellitus (Chronic) You will use the following diet at home:: No restrictions, Regular Your food should be the consistency of: Regular Your liquids should be the consistency of: Regular/Thin Discharge Activity: Return to Normal Activity, May Shower, Use Walker Weight Bearing Status: Weight bearing as tolerated Call your doctor if you observe: Fever of 101 or Higher, Inability to urinate, Inability to have a bowel movement, Shortness of breath, Chest pain, Uncontrolled pain Allergies/Adverse Reactions: Allergies naphazoline HCl [From Naphcon] Allergy (Severe, Verified 12/08/18 00:29) affected his breathing AFFECTED HIS BREATHING amlodipine besylate [From Norvasc] Allergy (Verified 12/08/18 00:29) Other dextromethorphan Allergy (Verified 12/08/18 00:29) Other levofloxacin [From Levaquin] Adverse Reaction (Mild, Verified 12/08/18 00:29) made me hyperactive made me hyperactive Medications to take at Discharge Allopurinol [Zyloprim] 300 mg PO DAILY 06/15/18 Clopidogrel Bisulfate [Plavix] 75 mg PO DAILY 06/15/18 Finasteride [Proscar] 5 mg PO DAILY 06/15/18 Magnesium 250 mg PO BID 06/15/18 Metolazone [Zaroxolyn] 2.5 mg PO DAILY 06/15/18 Metoprolol Tartrate [Lopressor (beta maryam)] 50 mg PO BID 06/15/18 Sertraline HCl [Zoloft] 100 mg PO DAILY 06/15/18 Spironolactone [Aldactone] 25 mg PO BID 06/15/18 Atorvastatin Calcium 40 mg PO QHS 12/07/18 Losartan Potassium 100 mg PO DAILY 12/07/18 Terazosin HCl 10 mg PO QHS 12/07/18 Budesonide/Formoterol 160/4.5 [Symbicort 160/4.5 Mcg Inhaler (SP)] 2 puff INHALATION BID 12/13/18 Glimepiride [Amaryl] 2 mg PO DAILY 12/13/18 Nystatin Powder [Mycostatin Powder] 1 applic TOPICAL BID 12/13/18 Acetaminophen [Tylenol] 1,000 mg PO Q6H PRN PRN tablet 01/03/19 Furosemide [Lasix] 20 mg PO BID@1000,1800 #60 tab 01/03/19 Iron Polysaccharide Complex [Ferrex 150] 150 mg PO DAILYCM #30 cap 01/03/19 Menthol/Lanolin/Calamine/Znox [Calmoseptine Ointment] 1 applic TOPICAL BID tube 01/03/19 Mineral Oil/Petrolatum,White [Eucerin] 1 applic TOPICAL 0600,2200 jar 01/03/19 Pantoprazole Sodium [Protonix] 40 mg PO DAILY #30 tab 01/03/19 The following prescriptions were given: Iron Polysaccharide Complex [Ferrex 150] 150 mg PO DAILYCM #30 cap Transmission Status: Pending to [facility]30 Furosemide [Lasix] 20 mg PO BID@1000,1800 #60 tab Transmission Status: Pending to [facility]30 Pantoprazole Sodium [Protonix] 40 mg PO DAILY #30 tab Transmission Status: Pending to [facility]30 Primary Care Physician: Jack Verdugo MD [Primary Care Provider] - Please follow up with your Primary Care Physician in: 1 week. Test Results: Test results from this visit will be discussed in further detail at your follow-up appointment, if applicable. Proposed Discharge Date: 01/07/19
--- NOTE | 2019-01-03 21:02 | DS.PCM_ITS ---
Discharge Date and Diagnosis - Problem List Patient Problems: Active and Suspected Problems (Last Reviewed 12/08/18 @ 03:44 by Garrett Whitley MD) Debility (Acute) Acute on chronic diastolic heart failure (Acute) Date of Admission: 12/07/18 Date of Discharge: 01/07/19 - Primary Discharge Diagnosis Active and Suspected Problems (Last Reviewed 12/08/18 @ 03:44 by Garrett Whitley MD) Debility (Acute) Acute on chronic diastolic heart failure (Acute) - Secondary Discharge Diagnosis Chronic Problems (Last Reviewed 12/08/18 @ 03:44 by Garrett Whitley MD) COPD with exacerbation (Chronic) Pickwickian syndrome (Chronic) Iron deficiency anemia (Chronic) etology unknown COPD (chronic obstructive pulmonary disease) (Chronic) Obstructive sleep apnea (Chronic) Super obesity (Chronic) Hypertension (Chronic) Thoracic aortic aneurysm (Chronic) Lymphedema (Chronic) Gout (Chronic) BPH (benign prostatic hyperplasia) (Chronic) Hypomagnesemia (Chronic) Diabetes mellitus (Chronic) Chronic respiratory failure with hypoxia and hypercapnia (Chronic) Essential (primary) hypertension (Chronic) Chronic diastolic heart failure (Chronic) Thoracic aortic aneurysm without rupture (Chronic) 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 Electronically Signed: Cali Jurado, at 17:21 EDT Tel , Service support , Labs (Last 48 Hours) 01/02/19 01/02/19 01/03/19 06:25 16:51 06:20 POC Glucose 168 H 184 H 148 H 01/03/19 16:47 POC Glucose 175 H Operations: None Procedures: None Summary of Care Provided: The patient is a 74 year old Male with below past medical history hospitalized for debility secondary to COPD, new onset atrial fibrillation with RVR, acute on chronic anemia, acute on chronic diastolic heart failure, admitted to TCU with debility, here for rehabilitation, strengthening, prior to discharge home with spouse. No anticoagulation due to anemia. Discharge home with , and Palliative Care. Patient Problems: Active and Suspected Problems (Last Reviewed 12/08/18 @ 03:44 by Garrett Whitley MD) Debility (Acute) Acute on chronic diastolic heart failure (Acute) - Physical Exam Vital Signs Temp Pulse Resp BP Pulse Ox 97.7 F L 62 18 130/65 H 100 01/03/19 16:00 01/03/19 17:07 01/03/19 16:00 01/03/19 17:07 01/03/19 16:00 Oxygen Flow Rate (L/min) 3 Oxygen Delivery Method Room Air Weight: 143.987 kg Body Mass Index (BMI) 51.2 Finger Stick Blood Glucose 171 Intake and Output for Last 24 Hours 01/01/19 01/02/19 01/03/19 23:59 23:59 23:59 Intake Total 840 / 840 810 / 810 940 / 940 Output Total 350 / 350 Balance 840 / 840 810 / 810 590 / 590 POC Glucose 01/03/19 01/03/19 16:47 06:20 POC Glucose 175 H 148 H Discharge Diet: No Restrictions Discharge Activity: Return to Normal Activity, May Shower, Use Walker Weight Bearing Status: Weight bearing as tolerated Call your doctor if you observe: Fever of 101 or Higher, Inability to urinate, Inability to have a bowel movement, Shortness of breath, Chest pain, Unc ontrolled pain Home Medications: Medications to take at Discharge Allopurinol [Zyloprim] 300 mg PO DAILY 06/15/18 Clopidogrel Bisulfate [Plavix] 75 mg PO DAILY 06/15/18 Finasteride [Proscar] 5 mg PO DAILY 06/15/18 Magnesium 250 mg PO BID 06/15/18 Metolazone [Zaroxolyn] 2.5 mg PO DAILY 06/15/18 Metoprolol Tartrate [Lopressor (beta maryam)] 50 mg PO BID 06/15/18 Sertraline HCl [Zoloft] 100 mg PO DAILY 06/15/18 Spironolactone [Aldactone] 25 mg PO BID 06/15/18 Atorvastatin Calcium 40 mg PO QHS 12/07/18 Losartan Potassium 100 mg PO DAILY 12/07/18 Terazosin HCl 10 mg PO QHS 12/07/18 Budesonide/Formoterol 160/4.5 [Symbicort 160/4.5 Mcg Inhaler (SP)] 2 puff INHALATION BID 12/13/18 Glimepiride [Amaryl] 2 mg PO DAILY 12/13/18 Nystatin Powder [Mycostatin Powder] 1 applic TOPICAL BID 12/13/18 Acetaminophen [Tylenol] 1,000 mg PO Q6H PRN PRN tablet 01/03/19 Furosemide [Lasix] 20 mg PO BID@1000,1800 #60 tab 01/03/19 Iron Polysaccharide Complex [Ferrex 150] 150 mg PO DAILYCM #30 cap 01/03/19 Menthol/Lanolin/Calamine/Znox [Calmoseptine Ointment] 1 applic TOPICAL BID tube 01/03/19 Mineral Oil/Petrolatum,White [Eucerin] 1 applic TOPICAL 0600,2200 jar 01/03/19 Pantoprazole Sodium [Protonix] 40 mg PO DAILY #30 tab 01/03/19 Following Prescrptions Were Given to Patient: Iron Polysaccharide Complex [Ferrex 150] 150 mg PO DAILYCM #30 cap Transmission Status: Pending to [facility] #30 Furosemide [Lasix] 20 mg PO BID@1000,1800 #60 tab Transmission Status: Pending to [facility] #30 Pantoprazole Sodium [Protonix] 40 mg PO DAILY #30 tab Transmission Status: Pending to [facility] #30 Primary Care Physician: Jack Verdugo MD [Primary Care Provider] - Please follow up with your Primary Care Physician in: 1 week. Disposition: Home Minutes spent on discharge:: 30 Patient Condition:: Stable Medical Necessity - Tobacco Use Smoking Status: Former smoker Tobacco Use: Non-smoker Meaningful Use Info Meaningful Use Diagnoses (Choose all that apply): None applicable
[2019-01-03] MEDS: Atorvastatin Calcium 40 MG Tablet PO (21:05)
[2019-01-03] MEDS: Doxazosin 4 MG Tablet 8 MG PO (21:05)
[2019-01-04] VITALS (8 sets, daily range): BP systolic 103–137; BP diastolic 63–64; PULSE 60–70; RESP 12–20; TEMP 36.4; O2SAT 96–99
[2019-01-04] MEDS: Nystatin Powder 15gm Bottle 1 APPLIC TOPICAL ×2 (04:27→21:15)
[2019-01-04] MEDS: Fluticasone/Salmeterol 232-14 Inhaler 1 PUFF IH ×2 (04:30→17:11)
[2019-01-04] MEDS: Metolazone 2.5 MG Tablet PO (04:31)
[2019-01-04] MEDS: Finasteride 5 MG Tablet PO (04:31)
[2019-01-04] MEDS: Allopurinol 300 MG Tablet PO (04:31)
[2019-01-04] MEDS: Metoprolol Tartrate 25 MG Tablet PO ×2 (04:31→17:14)
[2019-01-04] MEDS: Magnesium Oxide 400 MG Tablet PO ×2 (04:31→17:14)
[2019-01-04] MEDS: guaiFENesin 1,200 MG Tablet 1200 MG PO ×2 (04:31→17:14)
[2019-01-04] MEDS: Sertraline 100 MG Tablet PO (04:31)
[2019-01-04] MEDS: Clopidogrel Bisulfate 75 MG Tablet PO (04:32)
[2019-01-04] MEDS: Spironolactone 25 MG Tablet PO ×2 (04:32→17:14)
[2019-01-04] MEDS: Pantoprazole Sodium 40 MG Tablet PO (04:32)
[2019-01-04] MEDS: Senna/Docusate Sodium 1 Tablet PO ×2 (04:32→17:14)
[2019-01-04] MEDS: Menthol/Lanolin/Calamine/Znox 113 GM Tube 1 APPLIC TOPICAL ×2 (04:32→17:16)
[2019-01-04] MEDS: Losartan Potassium 100 MG Tablet PO (04:37)
[2019-01-04 05:47] LABS: Absolute Lymphocyte Count 0.82 X10^3/uL (0.83-4.51); Absolute Neutrophil Count 4.7 X10^3/uL (2.0-7.7); Basophil# 0.03 X10^3/uL; Basophil% 0.5 % (0-1); Eosinophil# 0.22 X10^3/uL; Eosinophils% 3.5 % (0-5); Hematocrit 34.2 % (40-54); Hemoglobin 10.4 g/dL (13.0-16.5); Lymphocyte # 0.82 X10^3/ul (4.0); Lymphocyte % 13.1 % (19-41); Mean Corp Hgb Conc 30.4 g/dL (32-36); Mean Corpuscular Hgb 25.9 pg (27.0-32.0); Mean Corpuscular Volume 85.1 fL (80-94); Mean Platelet Vol. 9.5 fl (6.2-12.0); Monocyte# 0.53 X10^3/uL; Monocyte% 8.4 % (0-10); NRBC Flagged by Analyzer 0 % (0-5); Neutrophil # 4.65 X10^3/uL (2.7-7.7); Platelet Count 152 K/mm3 (150-450); RBC Distribution Width CV 18.5 % (11.6-14.6); RBC Distribution Width SD 57.4 fl (35.1-43.9); Red Blood Count 4.02 M/mm3 (4.6-6.2); White Blood Count 6.3 K/mm3 (4.4-11.0)
[2019-01-04 06:06] LABS: Anion Gap 6 (5-15); BUN 62 mg/dL (7-18); BUN/Creat Ratio 37.8 RATIO (10-20); Calcium,Total 8.8 mg/dL (8.5-10.1); Chloride 97 mmol/L (98-107); Creatinine, Serum 1.64 mg/dL (0.70-1.30); EST Glomerular Filtration Rate 44 mL/min (>60); Est Glom Filt Rate - Afr Amer 53 mL/min (>60); Estimated Creatinine Clearance 37.07 ml/min; Glucose 133 mg/dL (74-106); Potassium 4.7 mmol/L (3.5-5.1); Sodium Level 137 mmol/L (136-145)
[2019-01-04 06:31] LABS: Bedside Glucose 128 mg/dL (70-110)
[2019-01-04] MEDS: Glimepiride 2 MG Tablet PO (08:01)
[2019-01-04] MEDS: Iron Polysaccharide Complex 150 MG CAPSULE PO (08:02)
[2019-01-04] MEDS: Furosemide 20 MG Tablet PO ×2 (09:54→17:14)
--- NOTE | 2019-01-04 13:17 | MDS.RN ---
Information for the mds was obtained from review of the clinical record, interview of resident, staff, and direct observation of resident's care.
[2019-01-04 16:50] LABS: Bedside Glucose 164 mg/dL (70-110)
[2019-01-04] MEDS: Doxazosin 4 MG Tablet 8 MG PO (21:14)
[2019-01-04] MEDS: Atorvastatin Calcium 40 MG Tablet PO (21:14)
[2019-01-05] VITALS: O2SAT 96
--- NOTE | 2019-01-05 | CPS ---
pt took off Bipap on own and refused to wear for tonight.
[2019-01-05] MEDS: Fluticasone/Salmeterol 232-14 Inhaler 1 PUFF IH ×2 (05:08→16:54)
[2019-01-05] MEDS: Finasteride 5 MG Tablet PO (05:09)
[2019-01-05] MEDS: Spironolactone 25 MG Tablet PO ×2 (05:09→16:56)
[2019-01-05 05:10] VITALS: BP 135/60; PULSE 64
[2019-01-05] MEDS: Metoprolol Tartrate 25 MG Tablet PO ×2 (05:10→16:56)
[2019-01-05] MEDS: guaiFENesin 1,200 MG Tablet 1200 MG PO ×2 (05:10→16:57)
[2019-01-05] MEDS: Metolazone 2.5 MG Tablet PO (05:10)
[2019-01-05] MEDS: Magnesium Oxide 400 MG Tablet PO ×2 (05:10→16:57)
[2019-01-05] MEDS: Clopidogrel Bisulfate 75 MG Tablet PO (05:14)
[2019-01-05] MEDS: Losartan Potassium 100 MG Tablet PO (05:14)
[2019-01-05] MEDS: Pantoprazole Sodium 40 MG Tablet PO (05:14)
[2019-01-05] MEDS: Sertraline 100 MG Tablet PO (05:14)
[2019-01-05] MEDS: Allopurinol 300 MG Tablet PO (05:14)
[2019-01-05] MEDS: Nystatin Powder 15gm Bottle 1 APPLIC TOPICAL ×2 (05:15→20:54)
[2019-01-05] MEDS: Menthol/Lanolin/Calamine/Znox 113 GM Tube 1 APPLIC TOPICAL ×2 (05:15→16:54)
[2019-01-05] MEDS: Senna/Docusate Sodium 1 Tablet PO ×2 (05:16→16:57)
[2019-01-05 06:00] VITALS: PULSE 64; RESP 20; O2SAT 98
[2019-01-05 06:25] LABS: Bedside Glucose 115 mg/dL (70-110)
[2019-01-05 08:14] VITALS: O2SAT 95
[2019-01-05] MEDS: Iron Polysaccharide Complex 150 MG CAPSULE PO (08:33)
[2019-01-05] MEDS: Glimepiride 2 MG Tablet PO (08:33)
[2019-01-05] MEDS: Furosemide 20 MG Tablet PO ×2 (09:38→16:56)
[2019-01-05 15:33] VITALS: BP 135/61; PULSE 61; RESP 20; TEMP 36.6; O2SAT 100
[2019-01-05 16:56] VITALS: BP 135/61; PULSE 61
[2019-01-05 17:16] LABS: Bedside Glucose 183 mg/dL (70-110)
[2019-01-05] MEDS: Atorvastatin Calcium 40 MG Tablet PO (20:52)
[2019-01-05] MEDS: Doxazosin 4 MG Tablet 8 MG PO (20:52)
[2019-01-05] MEDS: Acetaminophen 500 MG Tablet 1000 MG PO (22:37)
[2019-01-06 00:06] VITALS: PULSE 59; RESP 12; RESP 21; O2SAT 98
[2019-01-06] MEDS: Clopidogrel Bisulfate 75 MG Tablet PO (06:26)
[2019-01-06] MEDS: Allopurinol 300 MG Tablet PO (06:26)
[2019-01-06] MEDS: Magnesium Oxide 400 MG Tablet PO ×2 (06:26→16:54)
[2019-01-06] MEDS: Pantoprazole Sodium 40 MG Tablet PO (06:26)
[2019-01-06] MEDS: Senna/Docusate Sodium 1 Tablet PO ×2 (06:26→16:54)
[2019-01-06] MEDS: Metolazone 2.5 MG Tablet PO (06:26)
[2019-01-06] MEDS: Sertraline 100 MG Tablet PO (06:26)
[2019-01-06] MEDS: guaiFENesin 1,200 MG Tablet 1200 MG PO ×2 (06:26→16:54)
[2019-01-06] MEDS: Nystatin Powder 15gm Bottle 1 APPLIC TOPICAL ×2 (06:27→21:53)
[2019-01-06] MEDS: Losartan Potassium 100 MG Tablet PO (06:27)
[2019-01-06] MEDS: Spironolactone 25 MG Tablet PO ×2 (06:27→16:49)
[2019-01-06] MEDS: Finasteride 5 MG Tablet PO (06:27)
[2019-01-06 06:28] VITALS: BP 147/74; PULSE 56
[2019-01-06] MEDS: Metoprolol Tartrate 25 MG Tablet PO ×2 (06:28→16:49)
[2019-01-06] MEDS: Menthol/Lanolin/Calamine/Znox 113 GM Tube 1 APPLIC TOPICAL ×2 (06:29→16:48)
[2019-01-06] MEDS: Fluticasone/Salmeterol 232-14 Inhaler 1 PUFF IH ×2 (06:29→16:47)
[2019-01-06 07:01] LABS: Bedside Glucose 124 mg/dL (70-110)
[2019-01-06] MEDS: Iron Polysaccharide Complex 150 MG CAPSULE PO (07:24)
[2019-01-06] MEDS: Glimepiride 2 MG Tablet PO (07:24)
[2019-01-06] MEDS: Furosemide 20 MG Tablet PO ×2 (09:06→16:49)
[2019-01-06 15:55] VITALS: BP 106/51; PULSE 55; RESP 20; TEMP 36.4; O2SAT 97
[2019-01-06 16:46] LABS: Bedside Glucose 161 mg/dL (70-110)
[2019-01-06 16:49] VITALS: BP 124/63; PULSE 61
[2019-01-06] MEDS: Atorvastatin Calcium 40 MG Tablet PO (21:52)
[2019-01-06] MEDS: Doxazosin 4 MG Tablet 8 MG PO (21:52)
[2019-01-06 22:37] VITALS: PULSE 64
[2019-01-07] MEDS: Acetaminophen 500 MG Tablet 1000 MG PO (01:35)
[2019-01-07 06:07] VITALS: BP 129/63; PULSE 60
[2019-01-07] MEDS: Clopidogrel Bisulfate 75 MG Tablet PO (06:07)
[2019-01-07] MEDS: guaiFENesin 1,200 MG Tablet 1200 MG PO (06:07)
[2019-01-07] MEDS: Magnesium Oxide 400 MG Tablet PO (06:07)
[2019-01-07] MEDS: Metoprolol Tartrate 25 MG Tablet PO (06:07)
[2019-01-07] MEDS: Spironolactone 25 MG Tablet PO (06:07)
[2019-01-07] MEDS: Pantoprazole Sodium 40 MG Tablet PO (06:07)
[2019-01-07] MEDS: Finasteride 5 MG Tablet PO (06:07)
[2019-01-07] MEDS: Losartan Potassium 100 MG Tablet PO (06:07)
[2019-01-07] MEDS: Sertraline 100 MG Tablet PO (06:08)
[2019-01-07] MEDS: Metolazone 2.5 MG Tablet PO (06:08)
[2019-01-07] MEDS: Nystatin Powder 15gm Bottle 1 APPLIC TOPICAL (06:08)
[2019-01-07] MEDS: Senna/Docusate Sodium 1 Tablet PO (06:08)
[2019-01-07] MEDS: Menthol/Lanolin/Calamine/Znox 113 GM Tube 1 APPLIC TOPICAL (06:09)
[2019-01-07] MEDS: Allopurinol 300 MG Tablet PO (06:09)
[2019-01-07] MEDS: Fluticasone/Salmeterol 232-14 Inhaler 1 PUFF IH (06:11)
[2019-01-07 06:31] LABS: Bedside Glucose 134 mg/dL (70-110)
[2019-01-07 06:50] VITALS: O2SAT 95
[2019-01-07] MEDS: Iron Polysaccharide Complex 150 MG CAPSULE PO (07:39)
[2019-01-07] MEDS: Glimepiride 2 MG Tablet PO (07:39)
[2019-01-07 10:45] VITALS: PULSE 59; RESP 18; O2SAT 98
[2019-01-07] MEDS: Furosemide 20 MG Tablet PO (10:46)
--- NOTE | 2019-01-10 08:48 | MDS.RN ---
Information for the mds was obtained from review of the clinical record, interview of resident, staff, and direct observation of resident's care.
== END 2019-01-07 14:00 | disposition home or self-care (01) | DRG 948 ==
PROVIDERS: Admitting Provider Family Medicine Geriatric Medicine; Family Provider Internal Medicine; PCP Internal Medicine; Referring Provider Family Medicine Geriatric Medicine; Visit Provider Family Medicine Geriatric Medicine
DX: R53.81 Other malaise (principal); I13.0 Hypertensive heart and chronic kidney disease with heart failure and stage 1 through stage 4 chronic kidney disease, or unspecified chronic kidney disease; I50.32 Chronic diastolic (congestive) heart failure; Z68.43 Body mass index [BMI] 50.0-59.9, adult; E66.2 Morbid (severe) obesity with alveolar hypoventilation; E78.5 Hyperlipidemia, unspecified; N40.0 Benign prostatic hyperplasia without lower urinary tract symptoms; D50.0 Iron deficiency anemia secondary to blood loss (chronic); B35.4 Tinea corporis; K21.9 Gastro-esophageal reflux disease without esophagitis; F32.9 Major depressive disorder, single episode, unspecified; E11.22 Type 2 diabetes mellitus with diabetic chronic kidney disease; N18.2 Chronic kidney disease, stage 2 (mild); I89.0 Lymphedema, not elsewhere classified; I48.91 Unspecified atrial fibrillation; G89.29 Other chronic pain; J44.9 Chronic obstructive pulmonary disease, unspecified; M10.9 Gout, unspecified; M19.90 Unspecified osteoarthritis, unspecified site; E11.40 Type 2 diabetes mellitus with diabetic neuropathy, unspecified; Z71.3 Dietary counseling and surveillance; Z95.3 Presence of xenogenic heart valve; Z86.711 Personal history of pulmonary embolism; B35.1 Tinea unguium
CPT/HCPCS: 36415; 71046; 80048; 80053; 80061; 81001; 82962; 84550; 85025; 87070; 87077; 87086; 87088; 87186; 87205; 94003; 94640; 94668; 97110; 97116; 97162; 97166; 97530; 97535; 97802; A4216; J1940

== ENCOUNTER 2019-02-01 11:59 | Emergency (ER) | payer MEDICARE, BC, SELFPAY ==
[2018-12-13 15:29] VITALS: BMI 51.2
[2019-02-01 12:00] VITALS: BP 127/58; PULSE 67; RESP 18; TEMP 36.8; O2SAT 99
[2019-02-01 12:01] VITALS: BP 127/58; PULSE 67; RESP 18; TEMP 36.8; O2SAT 99; BMI 53.0
[2019-02-01 12:40] LABS: Absolute Lymphocyte Count 0.87 X10^3/uL (0.83-4.51); Absolute Neutrophil Count 7.3 X10^3/uL (2.0-7.7); Basophil# 0.06 X10^3/uL; Basophil% 0.6 % (0-1); Eosinophil# 0.34 X10^3/uL; Eosinophils% 3.6 % (0-5); Hematocrit 27.4 % (40-54); Hemoglobin 8.5 g/dL (13.0-16.5); Lymphocyte # 0.87 X10^3/ul (4.0); Lymphocyte % 9.2 % (19-41); Mean Corpuscular Hgb 27.2 pg (27.0-32.0); Mean Corpuscular Volume 87.5 fL (80-94); Mean Platelet Vol. 8.7 fl (6.2-12.0); Monocyte# 0.79 X10^3/uL; Monocyte% 8.3 % (0-10); NRBC Flagged by Analyzer 0 % (0-5); Neutrophil # 7.27 X10^3/uL (2.7-7.7); Neutrophil % 76.7 % (47-70); Platelet Count 231 K/mm3 (150-450); RBC Distribution Width CV 17.3 % (11.6-14.6); RBC Distribution Width SD 55.9 fl (35.1-43.9); Red Blood Count 3.13 M/mm3 (4.6-6.2); White Blood Count 9.5 K/mm3 (4.4-11.0)
--- NOTE | 2019-02-01 12:47 | ED.DCSUM_ITS ---
History of Present Illness Chief Complaint: Wound Informant: Patient Onset: Today Context: Sudden Onset Timing: Continuous Current Severity: Moderate Maximum Severity: Moderate Narrative: The patient presents to the emergency department with bleeding from leg wound. Patient has history of chronic lower extremity ulceration and venous stasis. He states that he was scratching a scab, and the scab came off. He began to bleed from the area. He was unable to get it to stop at home. He is on Plavix. He denies other injury. He is otherwise been in his normal state of health. Prior similar symptoms: Yes Recent Illness/Hospitalization: No Past Medical History - Allergies and Home Meds Allergies/Adverse Reactions: Allergies naphazoline HCl [From Naphcon] Allergy (Severe, Verified 02/01/19 12:00) affected his breathing AFFECTED HIS BREATHING amlodipine besylate [From Norvasc] Allergy (Verified 02/01/19 12:00) Other dextromethorphan Allergy (Verified 02/01/19 12:00) Other levofloxacin [From Levaquin] Adverse Reaction (Mild, Verified 02/01/19 12:00) made me hyperactive made me hyperactive Primary Care Physician: Jack Verdugo MD [Primary Care Provider] - Prior records reviewed: Yes Past Medical History: - Surgical History: herniorrhaphy - Large ventral hernia with mesh., - - He has a bioprosthetic aortic valve replacement, abdominal aortic aneurysm repair 2004. Smoking Status: Former smoker - Family History Maternal Family History: Family History (Last Reviewed 12/08/18 @ 03:44 by Garrett Whitley MD) Brother TBI (traumatic brain injury) Sister Ulcerative colitis Family History: Reports: Hypertension, - - Patient's father at the age of 94 from old age. Patient's mother at age of 87 with a history of hyper lipidemia and hypertension. Paternal Family History: Family History (Last Reviewed 12/08/18 @ 03:44 by Garrett Whitley MD) Brother TBI (traumatic brain injury) Sister Ulcerative colitis Family History: Reports: Hypertension Additional Family History: None Review of Systems General: Denies: Chills, Fever, Sweats Eyes: Denies: Visual changes - bilaterally, Diplopia ENT: Denies: Rhinorrhea, Sore throat Cardiovascular: Denies: Chest pain, Palpitations Respiratory: Denies: Dyspnea, Cough, Dyspnea on exertion Gastrointestinal: Denies: Abdominal pain, Nausea, Vomiting, Diarrhea, Melena, Hematochezia Genitourinary: Denies: Dysuria, Hematuria, Frequency Musculoskeletal: Denies: Back pain, Extremity Pain Skin: Denies: Rash, Wounds Neurological: Denies: Headache, Weakness, Numbness Physical Exam Vital Signs/Narrative: Vital Signs Temp Pulse Resp BP Pulse Ox 02/01/19 12:01 98.3 F 67 18 127/58 H 99 02/01/19 12:00 98.3 F 67 18 127/58 H 99 Inital Vital Signs reviewed: Yes General: Well nourished, Well developed, No Acute Distress Head: Normocephalic, Atraumatic Eyes: Perrl, EOMI ENT: Moist mucous membranes, No rhinorrhea Neck: Supple, Nontender Cardiovascular: Regular rate, Regular rhythm, No murmurs Respiratory: No distress, CTA bilaterally, Chest nontender Abdomen: Soft, Nontender, Nondistended, Normal bowel sounds Back: Nontender, Normal Inspection Extremities: Tenderness, Edema, - - Patient does have a 7 cm linear nonhealing wound with some active bleeding from the bed. It does appear to be venous weeping. There is no arterial bleeding. Skin: Normal color, No rash Neurological: Alert, Oriented x3, Cranial nerves II-XII grossly intact, Normal Strength, Normal Sensation Psychological: Normal affect, Normal Mood Diagnostic/Tx/Re-eval - Medical Decision Making The patient presents with bleeding from his chronic lower extremity wound. The dressing was removed. It did appear to be just venous weeping as he likely lost the scab. Surgicel gauze, nonadherent dressing, and 4 x 4's with wrap was placed. The patient was observed. He had no further bleeding. His hemoglobin appears stable. He is totally asymptomatic. His wound was redressed. At this point, I do feel the patient is safe for follow-up as an outpatient. Impression 1. Bleeding from chronic lower extremity wound ED Disposition - Plan for ED Patient: Instructions: Skin Avulsion Referrals: Jack Verdugo MD [Primary Care Provider] - Additional Instructions: Keep the dressing in place until tomorrow. If you can change it normally at that time.
--- NOTE | 2019-02-01 13:05 | NURSING ---
NO LW OR POA
[2019-02-01 14:10] VITALS: BP 145/66; PULSE 78; RESP 18; RESP 19; O2SAT 99
== END 2019-02-01 14:10 | disposition home or self-care (01) ==
LOC: ED 12:19
PROVIDERS: Emergency Provider Emergency Medicine; Family Provider Internal Medicine; PCP Internal Medicine
DX: S81.801A Unspecified open wound, right lower leg, initial encounter (principal); I87.8 Other specified disorders of veins; X58.XXXA Exposure to other specified factors, initial encounter; Y93.9 Activity, unspecified; Y92.009 Unspecified place in unspecified non-institutional (private) residence as the place of occurrence of the external cause; Y99.9 Unspecified external cause status; Z79.02 Long term (current) use of antithrombotics/antiplatelets; Z88.1 Allergy status to other antibiotic agents; Z95.3 Presence of xenogenic heart valve; Z87.891 Personal history of nicotine dependence
CPT/HCPCS: 85025; 99284; J7030; A4216

== ENCOUNTER 2019-03-05 18:39 | Inpatient (IN) | payer MEDICARE, BC, SELFPAY ==
[2019-03-05] VITALS (12 sets, daily range): BP systolic 130–174; BP diastolic 60–105; PULSE 98–125; RESP 12–98; TEMP 36.7–37.8; O2SAT 15–100; BMI 53.2; BMI 51.3; BMI 51.4
--- NOTE | 2019-03-05 18:55 | RAD_ITS ---
STUDY: X-RAY CHEST REASON FOR EXAM: Male, 74 years old. Cough TECHNIQUE: Single frontal view of the chest. COMPARISON: 12/19/2018 FINDINGS: Median sternotomy wires. Right axillary clips. Right basilar alveolar disease. There is no demonstrated pleural abnormality. Stable cardiomediastinal silhouette. Normal mediastinum and radha. Normal visualized pulmonary arteries. There is atherosclerotic calcification of the aortic arch with tortuosity. Normal visualized thoracic spine. Normal visualized ribs, clavicles, and shoulders. There is no demonstrated abnormality of the visualized soft tissue structures of the upper abdomen. RAD/Chest 1 View (Portable) IMPRESSION: Right basilar alveolar disease. Electronically Signed: Everett Rossi MD at 19:23 EDT Tel , Service support ,
--- NOTE | 2019-03-05 18:55 | EKG12_ITS ---
Test Reason : TACHYCARDIA, SOB Blood Pressure : / mmHG Vent. Rate : 120 BPM Atrial Rate : 105 BPM P-R Int : 000 ms QRS Dur : 100 ms QT Int : 336 ms P-R-T Axes : 000 -05 084 degrees QTc Int : 474 ms Atrial fibrillation with rapid ventricular response with premature ventricular or aberrantly conducte d complexes Abnormal ECG Confirmed by ANTONIO LOGAN, KATIA ([id number]), news editor DANIELA GUTIÉRREZ ([id number]) on 03/09/2019 9:46:52 AM Referred By: Sergo Moore Confirmed By:OBED ALVAREZ MD
--- NOTE | 2019-03-05 18:57 | ED.DCSUM_ITS ---
- ER Visit Summary Date of Service: 03/05/19 Chief Complaint: Shortness of breath, weakness History of Present Illness: The patient is a 74 M presenting with shortness of breath, weakness. Patient has felt generally weak over the past several days. He has been unable to get out of his chair. He was able to use a urinal in the chair. Today he had a bowel movement was unable to get up. EMS was called for assistance. His pulse ox was 85% on 5 L. He complains of cough and shortness of breath. He was unaware that he had a fever. He has had chills. He denies chest pain or abdominal pain. Physical Examination: Blood pressure 174/105, temperature 100.0. Heart rate 124, respiratory rate 24. Pulse ox 97% on nonrebreather. Alert no acute distress. HEENT exam is unremarkable. Neck is supple. Lungs are diminished bilaterally. Heart is irregularly irregular tachycardic Abdomen is soft obese nontender nondistended. Extremities bilateral chronic lower extremity wounds Skin is warm and dry. No focal neurologic deficit. Remainder of exam is unremarkable. Emergency Department Course and Treatment: Patient was given IV fluids, Tylenol. EKG is A. fib with rate of 120. Chest x-ray shows right basilar alveolar disease. CBC shows hemoglobin of 9.2. Chemistries show CO2 38, glucose 262. INR 1.2. BNP 214. Lactic acid 2.4. Troponin is negative. Blood and urine cultures were sent. He was given Rocephin and Zithromax IV. He is weaned down to 6 L O2 nasal cannula. Discussed with the hospitalist for admission. Disposition: Admission Impression: Pneumonia, UTI, hypoxia, debility This note was generated with [employer] dictation software. It may contain incorrect words, spelling, and punctuation that were not noted in review of the chart prior to signing ED Disposition - Plan for ED Patient: Referrals: Jack Verdugo MD [Primary Care Provider] -
[2019-03-05 19:12] LABS: Absolute Lymphocyte Count 0.96 X10^3/uL (0.83-4.51); Absolute Neutrophil Count 6.2 X10^3/uL (2.0-7.7); Basophil# 0.08 X10^3/uL; Basophil% 0.9 % (0-1); Eosinophil# 0.18 X10^3/uL; Eosinophils% 2.1 % (0-5); Hemoglobin 9.2 g/dL (13.0-16.5); Lymphocyte # 0.96 X10^3/ul (4.0); Mean Corp Hgb Conc 29.7 g/dL (32-36); Mean Corpuscular Volume 90.9 fL (80-94); Mean Platelet Vol. 8.9 fl (6.2-12.0); Monocyte# 1.17 X10^3/uL; Monocyte% 13.4 % (0-10); NRBC Flagged by Analyzer 0 % (0-5); Neutrophil # 6.23 X10^3/uL (2.7-7.7); Neutrophil % 71.1 % (47-70); Platelet Count 335 K/mm3 (150-450); RBC Distribution Width CV 14.3 % (11.6-14.6); RBC Distribution Width SD 47.8 fl (35.1-43.9); Red Blood Count 3.41 M/mm3 (4.6-6.2); White Blood Count 8.8 K/mm3 (4.4-11.0)
[2019-03-05 19:20] LABS: International Normalized Ratio 1.2; Prothrombin Time (Protime)PT. 14.9 SECONDS (11.7-14.9)
[2019-03-05 19:21] LABS: Partial Thromboplast Time 40.5 Seconds (24.1-36.2)
[2019-03-05 19:27] LABS: ALB/GLOB Ratio 0.4 RATIO (0.9-2.4); AST(SGOT) 14 U/L (15-37); Alanine Aminotransfer ALT/SGPT 12 U/L (16-61); Albumin, Serum 2.3 g/dL (3.2-5.0); Alkaline Phosphatase 71 U/L (45-117); Anion Gap 4 (5-15); BUN 18 mg/dL (7-18); Calcium,Total 8.8 mg/dL (8.5-10.1); Chloride 94 mmol/L (98-107); Creatinine, Serum 1.29 mg/dL (0.70-1.30); EST Glomerular Filtration Rate 58 mL/min (>60); Est Glom Filt Rate - Afr Amer 70 mL/min (>60); Estimated Creatinine Clearance 47.13 ml/min; Globulin 5.7 g/dL (2.2-4.2); Glucose 262 mg/dL (74-106); Potassium 4.2 mmol/L (3.5-5.1); Sodium Level 136 mmol/L (136-145)
[2019-03-05 19:35] LABS: Lactic Acid 2.4 mmol/L (0.4-2.0)
[2019-03-05 19:38] LABS: BNP,B-Type NATRIURETIC PEPTIDE 214.4 pg/mL (0-100)
[2019-03-05] MEDS: Acetaminophen 500 MG Tablet 1000 MG PO (19:41)
--- NOTE | 2019-03-05 20:03 | ED.RN ---
HEAD OF BED RECLINED TO PROVIDE MONIE CARE, PT BECAME ANXIOUS YELLING I CAN'T BREATHE. SPO2 82% ON NON-REBREATHER, SPO2 100% AFTER HEAD OF BED ELEVATED. PT RESTING QUIETLY, NO DISTRESS.
[2019-03-05 20:16] LABS: Color, Urine Amber (Yellow); Glucose, Dipstick Normal (Normal); Ketone-Dipstick 5 mg/dl (Negative); Leukocyte Esterase-Dipstick 500 /ul (Negative); Mucous, Urine 0 SEEN /hpf (<or=2+); Nitrite-Dipstick Positive (Negative); Occult Blood-Urine 250 /ul (Negative); Protein-Dipstick 100 mg/dl (Negative); Specific Gravity, Urine 1.015 (1.002-1.030); Squamous Epithelial Cells - UA 0 SEEN /hpf (0-5); Urine Clarity Cloudy (Clear); Urine Urobilinogen 4 mg/dl (Normal)
[2019-03-05 20:23] LABS: Urine Bilirubin Dipstick 1 mg/dL (Negative)
[2019-03-05 20:24] LABS: White Blood Cells 25-50 SEEN /hpf (0-5)
[2019-03-05 20:25] LABS: Bacteria 1+ /hpf (None Seen); Red Blood Cells-Urine 5-10 SEEN /hpf (0-5)
[2019-03-05] MEDS: Ceftriaxone 1 GM/50 ML BAG IV (20:48)
[2019-03-05 21:30] LABS: Allen Test POS; Base Excess 15 mmol/L (-2 to +2); Bicarbonate 39.5 mmol/L (22-26); Blood Gas Specimen Type ART; O2 Delivery Device Nasal Can; PO2 99 mmHG (75-100); SITE R Radial; SO2 97 % (95-99); Time Given 2130; Total Carbon Dioxide 41 mmol/L; pCO2 62.9 mmHg (35-45); pH 7.41 (7.35-7.45)
--- NOTE | 2019-03-05 21:30 | CPS ---
ABG results given to Dr. Moore and Dr. Morgan. Dr. Moore made aware of pt home bipap settings of 11/05 and that he is non-compliant.
--- NOTE | 2019-03-05 21:56 | PCM.HP.STD ---
Problem List (1) CHF exacerbation Status: Chronic (2) COPD with exacerbation Status: Chronic (3) New onset a-fib Status: Acute Comment: Converted to sinus rhythm (4) Pickwickian syndrome Status: Chronic (5) Iron deficiency anemia Status: Chronic Comment: etology unknown (6) Debility Status: Acute (7) COPD (chronic obstructive pulmonary disease) Status: Chronic (8) Obstructive sleep apnea Status: Chronic (9) Super obesity Status: Chronic (10) Hypertension Status: Chronic (11) Acute on chronic diastolic heart failure Status: Acute (12) Thoracic aortic aneurysm Status: Chronic (13) Lymphedema Status: Chronic (14) Gout Status: Chronic (15) BPH (benign prostatic hyperplasia) Status: Chronic (16) Hypomagnesemia Status: Chronic (17) Diabetes mellitus Status: Chronic (18) Chronic respiratory failure with hypoxia and hypercapnia Status: Chronic (19) Essential (primary) hypertension Status: Chronic (20) Chronic diastolic heart failure Status: Chronic (21) History of repair of thoracic aortic aneurysm Status: Resolved (22) Thoracic aortic aneurysm without rupture Status: Chronic Comment: Status post ascending and proximal arch aneurysm replaced with a Hemashield graft and shayan-arch repair; (23) Hyperlipidemia Status: Chronic (24) Lymphedema of leg Status: Chronic Qualifiers: (25) H/O aortic valve replacement Status: Resolved Comment: # 29 Freestyle valve History of Present Illness Date of Admission: 03/05/19 Chief Complaint: Progressive worsening of shortness of breath for 2 to 3 weeks The patient is a 74 year old M with multiple comorbidities as listed above came to ER with progressive worsening of shortness of breath for 2 to 3 weeks culminating to the point that he was not able to breathe today and unable to get up after bowel movement. Patient has been on recliner and unable to get out of chair for for about 1 week. Patient denies chest pain. Patient has cough and brings up thick yellow sputum. Patient also has fever/chills and chest congestion. In ED, temperature was 100 Fahrenheit, heart rate 125/min, blood pressure 174/105, respiratory rate 24, and pulse ox 85% on 5 L of oxygen. Patient was put on nonrebreather. He is only patient is on 4 L of oxygen but for last 1 to 2 weeks he required 6 L of oxygen. He would just CPAP and BiPAP also at home. Patient is morbidly obese with pickwickian syndrome, COPD and follows Dr. Clay. Chest x-ray in the ER shows right lower lobe opacity's suggestive of infiltrate and hypoventilation, small bilateral pleural effusion and cephalization of upper lobe. First troponin negative Basic blood work-up in ER shows BNP 214 but may be falsely low in morbid obese patient. ABG 7.4/63/99 on 6 L of oxygen nasal cannula. His baseline PCO2 was 57 in May 2018. Bicarb and BMP 38. Patient was put on BiPAP. Lactic acid 2.4. Patient is also having liquid diarrhea probably related to overmedication of laxative as he is usually constipated. Laboratory Results 03/05/19 18:51: WBC 8.8, RBC 3.41 L, Hgb 9.2 L, Hct 31.0 L, MCV 90.9, MCH 27.0, MCHC 29.7 L, RDW Std Deviation 47.8 H, RDW Coeff of El 14.3, Plt Count 335, MPV 8.9, Immature Gran % (Auto) 1.500 H, Neut % (Auto) 71.1 H, Lymph % (Auto) 11.0 L, [place] % (Auto) 13.4 H, Eos % (Auto) 2.1, Baso % (Auto) 0.9, Absolute Neuts (auto) 6.2, Absolute Lymphs (auto) 0.96, Nucleated RBC % 0 03/05/19 18:51: PT 14.9, INR 1.2, APTT 40.5 H 03/05/19 18:51: Sodium 136, Potassium 4.2, Chloride 94 L, Carbon Dioxide 38.0 H, Anion Gap 4 L, BUN 18, Creatinine 1.29, Estim Creat Clear Calc 47.13, Est GFR (MDRD) Af Amer 70, Est GFR (MDRD) Non-Af 58 L, BUN/Creatinine Ratio 14.0, Glucose 262 H, Calcium 8.8, Total Bilirubin 0.50, AST 14 L, ALT 12 L, Alkaline Phosphatase 71, Total Protein 8.0, Albumin 2.3 L, Globulin 5.7 H, Albumin/Globulin Ratio 0.4 L 03/05/19 18:51: Lactic Acid 2.4 H 03/05/19 18:51: B-Natriuretic Peptide 214.4 H 03/05/19 18:51: Troponin I < 0.015 03/05/19 20:00: Urine Color [place], Urine Clarity Cloudy, Urine pH 8.0, Ur Specific [place] 1.015, Urine Protein 100 H, Urine Glucose (UA) Normal, Urine Ketones 5 H, Urine Occult Blood 250 H, Urine Nitrite Positive H, Urine Bilirubin 1 H, Urine Urobilinogen 4 H, Ur Leukocyte Esterase 500 H, Urine RBC 5-10 SEEN, Urine WBC 25-50 SEEN, Ur Squamous Epith Cells 0 SEEN, Urine Bacteria 1+, Urine Mucus 0 SEEN 03/05/19 21:25: Specimen Type ART, Sample Site R Radial, pH 7.41, Bicarbonate Actual 39.5 H, POC Total CO2 41, Base Excess 15 H, O2 Saturation 97, ABG pCO2 62.9 H, ABG pO2 99, Hilario Test POS, O2 Delivery Device Nasal Can, Liter Flow 6.0, Blood Gas Notified Whom [facility] , Blood Gas Notified Time 213 [] Clinical Impression(s) from Imaging Studies Chest X-Ray 03/05/19 18:55 IMPRESSION: Right basilar alveolar disease. Past Medical History Past Medical History (Chronic Problems): Chronic Problems (Last Reviewed 12/08/18 @ 03:44 by Garrett Whitley MD) COPD with exacerbation (Chronic) Pickwickian syndrome (Chronic) Iron deficiency anemia (Chronic) etology unknown COPD (chronic obstructive pulmonary disease) (Chronic) Obstructive sleep apnea (Chronic) Super obesity (Chronic) Hypertension (Chronic) Thoracic aortic aneurysm (Chronic) Lymphedema (Chronic) Gout (Chronic) BPH (benign prostatic hyperplasia) (Chronic) Hypomagnesemia (Chronic) Diabetes mellitus (Chronic) CHF exacerbation (Chronic) Chronic respiratory failure with hypoxia and hypercapnia (Chronic) Essential (primary) hypertension (Chronic) Chronic diastolic heart failure (Chronic) Thoracic aortic aneurysm without rupture (Chronic) Status post ascending and proximal arch aneurysm replaced with a Hemashield graft and shayan-arch repair; Hyperlipidemia (Chronic) Lymphedema of leg (Chronic) Medical History: Medical History (Last Reviewed 12/08/18 @ 03:44 by Garrett Whitley MD) Chronic respiratory failure with hypoxia and hypercapnia (Chronic) J96.11, J96.12 Essential (primary) hypertension (Chronic) I10 Chronic diastolic heart failure (Chronic) I50.32 Thoracic aortic aneurysm without rupture (Chronic) I71.2 Status post ascending and proximal arch aneurysm replaced with a Hemashield graft and shayan-arch repair; Hyperlipidemia (Chronic) E78.5 Lymphedema of leg (Chronic) I89.0 BPH w/o urinary obs/LUTS N40.0 COPD (chronic obstructive pulmonary disease) J44.9 Chronic anemia D64.9 Chronic kidney disease, stage 2 (mild) N18.2 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 GERD (gastroesophageal reflux disease) K21.9 History of pulmonary embolism Z86.711 Iron deficiency anemia D50.9 Lymphedema I89.0 Morbid obesity E66.01 Obstructive sleep apnea G47.33 Osteoarthritis M19.90 Tinea unguium B35.1 Ulcer of left lower extremity with fat layer exposed L97.922 Ulcer of right lower extremity with fat layer exposed L97.912 Venous insufficiency I87.2 Ventral hernia K43.9 Acute on chronic respiratory failure with hypoxia and hypercapnia (Resolved) J96.21, J96.22 Acute on chronic respiratory failure with hypoxia and hypercapnia J96.21, J96.22 Adynamic ileus K56.0 CAP (community acquired pneumonia) (Resolved) J18.9 The patient appropriately completed antibiotics and prednisone as prescribed. He has no further signs and symptoms of persistent pneumonia. No indication for any further testing at this time. Patient will be eligible for Pneumovax 23 in approximately 6 months. He states that his PCP is very good at keeping track of his immunizations and when they are due. CHF exacerbation (Resolved) I50.9 Hypoglycemia (Resolved) E16.2 Pulmonary embolism on right (Resolved) I26.99 Tobacco abuse (Resolved) Z72.0 Wheezing (Resolved) R06.2 Edema of both legs (Inactive) R60.0 Immobility (Inactive) Z74.09 Leg swelling (Inactive) M79.89 Multiple excoriations (Inactive) T14.8 Nausea and vomiting (Inactive) R11.2 Tinea unguium (Inactive) B35.1 Allergies naphazoline HCl [From Naphcon] Allergy (Severe, Verified 03/05/19 18:48) affected his breathing AFFECTED HIS BREATHING amlodipine besylate [From Norvasc] Allergy (Verified 03/05/19 18:48) Other dextromethorphan Allergy (Verified 03/05/19 18:48) Other levofloxacin [From Levaquin] Adverse Reaction (Mild, Verified 03/05/19 18:48) made me hyperactive made me hyperactive Home Medications: Ambulatory Orders Medication Instructions Recorded Allopurinol [Zyloprim] 300 mg PO DAILY 06/15/18 Clopidogrel Bisulfate [Plavix] 75 mg PO DAILY 06/15/18 Finasteride [Proscar] 5 mg PO DAILY 06/15/18 Magnesium 250 mg PO BID 06/15/18 Metolazone [Zaroxolyn] 2.5 mg PO DAILY 06/15/18 Metoprolol Tartrate [Lopressor 50 mg PO BID 06/15/18 (beta maryam)] Sertraline HCl [Zoloft] 100 mg PO DAILY 06/15/18 Spironolactone [Aldactone] 25 mg PO BID 06/15/18 Atorvastatin Calcium 40 mg PO QHS 12/07/18 Losartan Potassium 100 mg PO DAILY 12/07/18 Terazosin HCl 10 mg PO QHS 12/07/18 Budesonide/Formoterol 160/4.5 2 puff INHALATION BID 12/13/18 [Symbicort 160/4.5 Mcg Inhaler (SP)] Glimepiride [Amaryl] 2 mg PO DAILY 12/13/18 Nystatin Powder [Mycostatin Powder] 1 applic TOPICAL BID 12/13/18 Acetaminophen [Tylenol] 1,000 mg PO Q6H PRN PRN tab 01/03/19 Iron Polysaccharide Complex 150 mg PO DAILYCM #30 cap 01/03/19 [Ferrex 150] Menthol/Lanolin/Calamine/Znox 1 applic TOPICAL BID tube 01/03/19 [Calmoseptine Ointment] Mineral Oil/Petrolatum,White 1 applic TOPICAL 0600,2200 jar 01/03/19 [Eucerin] Pantoprazole Sodium [Protonix] 40 mg PO DAILY #30 tab 01/03/19 Docusate Sodium 100 mg PO DAILY PRN 02/01/19 Surgical History: Surgical History (Last Reviewed 12/08/18 @ 03:44 by Garrett Whitley MD) History of repair of thoracic aortic aneurysm (Resolved) Onset Date: 12/11/09 Z98.890, Z86.79 H/O aortic valve replacement (Resolved) Onset Date: 12/11/09 Z95.2 # 29 Freestyle valve H/O hernia repair Z98.890, Z87.19 Surgical History: herniorrhaphy - Large ventral hernia with mesh., - - He has a bioprosthetic aortic valve replacement, abdominal aortic aneurysm repair 2004. Psychiatric History: Anxiety, Depression Smoking Status: Former smoker - *Family History Maternal Family History: Family History (Last Reviewed 12/08/18 @ 03:44 by Garrett Whitley MD) Brother TBI (traumatic brain injury) Sister Ulcerative colitis History Items: Hypertension, - - Patient's father at the age of 94 from old age. Patient's mother at age of 87 with a history of hyperlipidemia and hypertension. Paternal Family History: Family History (Last Reviewed 12/08/18 @ 03:44 by Garrett Whitley MD) Brother TBI (traumatic brain injury) Sister Ulcerative colitis History Items: Hypertension Review of Systems Constitutional: Reports: Chills, Fever, Malaise, Weakness, Fatigue HEENT: Denies: Head Aches, Sinus Congestion, Sinus Drainage Cardiovascular: Denies: Chest Pain, Chest Pressure, Palpitations Respiratory: Reports: Cough, Shortness of Breath, Shortness of breath at rest, Shortness of breath upon exertion, Sputum production, Wheezing Gastrointestinal: Reports: Diarrhea. Denies: Abdominal Pain, Hematemesis, Hematochezia, Nausea, Melena, Vomiting Genitourinary: Denies: Dysuria Musculoskeletal: Reports: Back Pain, Joint Pain. Denies: Joint Tenderness Skin: Reports: Rash, Wounds - Bilateral lower leg chronic lymphedema and ulcer Neurological: Reports: Balance problems, Incoordination. Denies: Focal weakness, Numbness, Tingling Psychiatric: Reports: Anxiety, Depression. Denies: Homicidal Ideations, Suicidal Ideations Hematologic/ Lymphatic: Denies: Easy Bruising, Easy Bleeding VTE Information - Inpt Only VTE Present on Admission: No VTE Mechan Device Prophylaxis: None VTE Pharm Prophylaxis ordered?: Yes - Physical Exam General: Alert, Oriented x3, Cooperative HEENT: Atraumatic, PERRLA, EOMI, Normocephalic Oral: Dry Mucosa, - - Deep oropharyngeal structures not visualized. Neck: Supple, No JVD, Negative Carotid Bruits Lungs: Diminished - Air entry severely diminished in all lung berkowitz., Rhonchi, Short of Breath, Tachypneic, Using Accessory Muscles, Wheezes Cardiovascular: Normal S1, Normal S2, No murmurs, Irregular Rate, Tachycardic Abdomen: Bowel Sounds Present, Soft, Non Tender, Non-Distended Extremities: Capillary Refill Less than 3 Seconds, Edema Skin: Ulcer/ Wound - Chronic nonhealing ulcer in both lower legs. Chronic bilateral lower extremity lymphedema. Erythematous rash present over abdominal fold of skin, groin area. Musculoskeletal: No Tenderness to Palpation of Joints or Extremities, Arthritic Changes Neurological: Cranial nerves II-XII grossly intact, Deep Tendon Reflexes 2+/4 and Symmetrical, Neuro grossly intact Psych/Mental Status: Normal Affect, Appropriate Vital Signs Temp Pulse Resp BP Pulse Ox 99.8 F H 110 H 27 H 168/66 H 96 03/05/19 19:40 03/05/19 21:03 03/05/19 21:03 03/05/19 21:03 03/05/19 21:20 Oxygen Flow Rate (L/min) 6 Oxygen Delivery Method Nasal Cannula Weight: 350 lb 1.505 oz Body Mass Index (BMI) 53.2 Finger Stick Blood Glucose 171 Intake and Output for Last 24 Hours 03/03/19 03/04/19 03/05/19 23:59 23:59 23:59 Intake Total 50 / 50 Balance 50 / 50 Laboratory Tests Past 24 Hrs 03/05/19 03/05/19 03/05/19 18:51 18:51 18:51 WBC 8.8 RBC 3.41 L Hgb 9.2 L Hct 31.0 L MCV 90.9 MCH 27.0 MCHC 29.7 L RDW Std Deviation 47.8 H RDW Coeff of El 14.3 Plt Count 335 MPV 8.9 Immature Gran % (Auto) 1.500 H Neut % (Auto) 71.1 H Lymph % (Auto) 11.0 L [place] % (Auto) 13.4 H Eos % (Auto) 2.1 Baso % (Auto) 0.9 Absolute Neuts (auto) 6.2 Absolute Lymphs (auto) 0.96 Nucleated RBC % 0 PT 14.9 INR 1.2 APTT 40.5 H Specimen Type Sample Site pH Bicarbonate Actual POC Total CO2 Base Excess O2 Saturation ABG pCO2 ABG pO2 Hilario Test O2 Delivery Device Liter Flow Blood Gas Notified Whom Blood Gas Notified Time Sodium 136 Potassium 4.2 Chloride 94 L Carbon Dioxide 38.0 H Anion Gap 4 L BUN 18 Creatinine 1.29 Estim Creat Clear Calc 47.13 Est GFR (MDRD) Af Amer 70 Est GFR (MDRD) Non-Af 58 L BUN/Creatinine Ratio 14.0 Glucose 262 H Lactic Acid Calcium 8.8 Total Bilirubin 0.50 AST 14 L ALT 12 L Alkaline Phosphatase 71 Troponin I B-Natriuretic Peptide Total Protein 8.0 Albumin 2.3 L Globulin 5.7 H Albumin/Globulin Ratio 0.4 L Urine Color Urine Clarity Urine pH Ur Specific [place] Urine Protein Urine Glucose (UA) Urine Ketones Urine Occult Blood Urine Nitrite Urine Bilirubin Urine Urobilinogen Ur Leukocyte Esterase Urine RBC Urine WBC Ur Squamous Epith Cells Urine Bacteria Urine Mucus 03/05/19 03/05/19 03/05/19 18:51 18:51 18:51 WBC RBC Hgb Hct MCV MCH MCHC RDW Std Deviation RDW Coeff of [place] Count MPV Immature Gran % (Auto) Neut % (Auto) Lymph % (Auto) [place] % (Auto) Eos % (Auto) Baso % (Auto) Absolute Neuts (auto) Absolute Lymphs (auto) Nucleated RBC % PT INR APTT Specimen Type Sample Site pH Bicarbonate Actual POC Total CO2 Base Excess O2 Saturation ABG pCO2 ABG pO2 Hilario Test O2 Delivery Device Liter Flow Blood Gas Notified Whom Blood Gas Notified Time Sodium Potassium Chloride Carbon Dioxide Anion Gap BUN Creatinine Estim Creat Clear Calc Est GFR (MDRD) Af Amer Est GFR (MDRD) Non-Af BUN/Creatinine Ratio Glucose Lactic Acid 2.4 H Calcium Total Bilirubin AST ALT Alkaline Phosphatase Troponin I < 0.015 B-Natriuretic Peptide 214.4 H Total Protein Albumin Globulin Albumin/Globulin Ratio Urine Color Urine Clarity Urine pH Ur Specific [place] Urine Protein Urine Glucose (UA) Urine Ketones Urine Occult Blood Urine Nitrite Urine Bilirubin Urine Urobilinogen Ur Leukocyte Esterase Urine RBC Urine WBC Ur Squamous Epith Cells Urine Bacteria Urine Mucus 03/05/19 03/05/19 20:00 21:25 WBC RBC Hgb Hct MCV MCH MCHC RDW Std Deviation RDW Coeff of [place]t Count MPV Immature Gran % (Auto) Neut % (Auto) Lymph % (Auto) [place] % (Auto) Eos % (Auto) Baso % (Auto) Absolute Neuts (auto) Absolute Lymphs (auto) Nucleated RBC % PT INR APTT Specimen Type ART Sample Site R Radial pH 7.41 Bicarbonate Actual 39.5 H POC Total CO2 41 Base Excess 15 H O2 Saturation 97 ABG pCO2 62.9 H ABG pO2 99 Hilario Test POS O2 Delivery Device Nasal Can Liter Flow 6.0 Blood Gas Notified Whom HOSP Blood Gas Notified Time 2129 Sodium Potassium Chloride Carbon Dioxide Anion Gap BUN Creatinine Estim Creat Clear Calc Est GFR (MDRD) Af Amer Est GFR (MDRD) Non-Af BUN/Creatinine Ratio Glucose Lactic Acid Calcium Total Bilirubin AST ALT Alkaline Phosphatase Troponin I B-Natriuretic Peptide Total Protein Albumin Globulin Albumin/Globulin Ratio Urine Color [place] Urine Clarity Cloudy Urine pH 8.0 Ur Specific [place] 1.015 Urine Protein 100 H Urine Glucose (UA) Normal Urine Ketones 5 H Urine Occult Blood 250 H Urine Nitrite Positive H Urine Bilirubin 1 H Urine Urobilinogen 4 H Ur Leukocyte Esterase 500 H Urine RBC 5-10 SEEN Urine WBC 25-50 SEEN Ur Squamous Epith Cells 0 SEEN Urine Bacteria 1+ Urine Mucus 0 SEEN Assessment/Plan All Active Problems (Last Reviewed 12/08/18 @ 03:44 by Garrett Whitley MD) New onset a-fib (Acute) Debility (Acute) Acute on chronic diastolic heart failure (Acute) History of repair of thoracic aortic aneurysm (Resolved 12/11/09) H/O aortic valve replacement (Resolved 12/11/09) Acute on chronic respiratory failure with hypoxia and hypercapnia (Resolved) Bilateral lower leg cellulitis (Resolved) CAP (community acquired pneumonia) (Resolved) CHF exacerbation (Resolved) Hyperkalemia (Resolved) Hypoglycemia (Resolved) Hypoglycemia (Resolved) Hypomagnesemia (Resolved) Hyponatremia (Resolved) Pulmonary embolism on right (Resolved) Shortness of breath (Resolved) Tobacco abuse (Resolved) Wheezing (Resolved) The patient is a 74 year old M with multiple comorbidities as listed above came to ER with progressive worsening of shortness of breath for 2 to 3 weeks, Patient has been on recliner and unable to get out of chair for for about 1 week. Patient denies chest pain. Patient has cough and brings up thick yellow sputum. Patient also has fever/chills and chest congestion. Chest x-ray in the ER shows right lower lobe opacity's suggestive of infiltrate and hypoventilation, small bilateral pleural effusion and cephalization of upper lobe. First troponin negative Basic blood work-up in ER shows BNP 214 but may be falsely low in morbid obese patient. ABG 7.4/63/99 on 6 L of oxygen nasal cannula. His baseline PCO2 was 57 in May 2018. Bicarb and BMP 38. Patient was put on BiPAP. Lactic acid 2.4. Patient is also having liquid diarrhea probably related to overmedication of laxative as he is usually constipated. 1. Acute on chronic combined hypoxic and hypercarbic respiratory failure: Patient is being admitted in PCU stepdown status. Started on BiPAP 11/05. Consult dry cleaning attendant for further opinion and comanagement. Last time he had similar episode of ribs pretty failure and managed on AVMs. Patient follows Dr. Clay. 2. Paroxysmal A. fib with RVR: Patient also has A. fib during previous admission in November 2018. He was also iron deficiency anemia and had colonoscopy which did not really be a obvious bleeding site and he spontaneously converted to sinus rhythm. This time, EKG shows A. fib with RVR with PVCs at 120 bpm. H&H 9., platelet count 335. Patient on metoprolol 50 mg twice daily and will not increase now as patient is short of breath and wheezing. Add Cardizem CD 120 mg for rate control. Patient follows Dr. ceja. 3. Acute on chronic diastolic heart failure: Patient is on Zaroxolyn and spironolactone and losartan. Start on Lasix 40 mg IV twice daily. Continue Zaroxolyn and spironolactone. There is no Lasix in patient's home medication although was discharged last time on Lasix 40 mg daily. Echo in November 2018 reported as EF 55% with no regional wall motion abnormality. Normal RV size. Normal LV size. Normal left and right atria. Valves could not be well-visualized. Consult cardiology. 4. COPD exacerbation: DuoNeb every 4 hourly along with albuterol as needed for shortness of breath and wheezing. IV Solu-Medrol 40 mg IV every 8 hourly. Incentive spirometry, chest physiotherapy. 5. SEVERE sepsis (fever, tachycardia, tachypnea and lactic acidosis )with Right lower lobe community-acquired pneumonia/possible cystitis/asymptomatic bacteriuria: Started on IV ceftriaxone and Zithromax. Pneumonia work-up including urinary antigens, blood cultures x2, urine culture, MRSA nasal screen and respiratory panel ordered. Deviation LE 500, WBC 25-50 cells, 1+ bacteriuria, protein 100. Patient denies new lower urinary tract symptoms including dysuria, increased frequency urgency. 6. Bilateral lymphedema with chronic nonhealing ulcer: Wound care nurse ordered. Continue diuresis. Mupirocin cream ordered. Patient is on topical calmoseptine and nystatin. 7. Chronic iron deficiency anemia/anemia of chronic disease: Continue orals supplement. Monitor CBC on Eliquis. 8. Diabetes mellitus type 2: Accu-Chek is CHF and cover with Humalog and sliding scale NovoLog insulin. Titrate insulin as per Accu-Cheks. Hold glimepiride. 9. History of thoracic aortic aneurysm repair with replacement of aortic valve: Other comorbidities include hypertension, pickwickian syndrome/obstructive sleep apnea on CPAP/BiPAP, morbid obesity physical debility/decreased functional activity. PT and OT ordered. Living will/advanced directive/CODE STATUS: Patient said he has living will at home. Patient states he wants to be full code and want CPR/all ACLS protocol, intubation, vent management, central line insertion for vasopressor, tube feeding if needed. Patient is already on noninvasive positive pressure ventilation. Full code. Total time spent in [id number] encounter in discussion of advanced directive 18 minutes. On subsequent visit patient room in PCU Air entry has improved bilaterally. Patient is more awake and alert. Shortness of breath is improved as per the patient. Urinary antigen is positive of Streptococcus pneumoniae. Initially for suspicion of severe hypoxia sent with pneumonia, was patient started on vancomycin and Zosyn but it can be narrowed down to IV Rocephin and Zithromax. Can discontinue vancomycin if MRSA nasal screen and wound is negative. Laboratory Results 03/05/19 18:51: WBC 8.8, RBC 3.41 L, Hgb 9.2 L, Hct 31.0 L, MCV 90.9, MCH 27.0, MCHC 29.7 L, RDW Std Deviation 47.8 H, RDW Coeff of El 14.3, Plt Count 335, MPV 8.9, Immature Gran % (Auto) 1.500 H, Neut % (Auto) 71.1 H, Lymph % (Auto) 11.0 L, [place] % (Auto) 13.4 H, Eos % (Auto) 2.1, Baso % (Auto) 0.9, Absolute Neuts (auto) 6.2, Absolute Lymphs (auto) 0.96, Nucleated RBC % 0 03/05/19 18:51: PT 14.9, INR 1.2, APTT 40.5 H 03/05/19 18:51: Sodium 136, Potassium 4.2, Chloride 94 L, Carbon Dioxide 38.0 H, Anion Gap 4 L, BUN 18, Creatinine 1.29, Estim Creat Clear Calc 47.13, Est GFR (MDRD) Af Amer 70, Est GFR (MDRD) Non-Af 58 L, BUN/Creatinine Ratio 14.0, Glucose 262 H, Calcium 8.8, Total Bilirubin 0.50, AST 14 L, ALT 12 L, Alkaline Phosphatase 71, Total Protein 8.0, Albumin 2.3 L, Globulin 5.7 H, Albumin/Globulin Ratio 0.4 L 03/05/19 18:51: Lactic Acid 2.4 H 03/05/19 18:51: B-Natriuretic Peptide 214.4 H 03/05/19 18:51: Troponin I < 0.015 03/05/19 20:00: Urine Color [place], Urine Clarity Cloudy, Urine pH 8.0, Ur Specific [place] 1.015, Urine Protein 100 H, Urine Glucose (UA) Normal, Urine Ketones 5 H, Urine Occult Blood 250 H, Urine Nitrite Positive H, Urine Bilirubin 1 H, Urine Urobilinogen 4 H, Ur Leukocyte Esterase 500 H, Urine RBC 5-10 SEEN, Urine WBC 25-50 SEEN, Ur Squamous Epith Cells 0 SEEN, Urine Bacteria 1+, Urine Mucus 0 SEEN 03/05/19 21:25: Specimen Type ART, Sample Site R Radial, pH 7.41, Bicarbonate Actual 39.5 H, POC Total CO2 41, Base Excess 15 H, O2 Saturation 97, ABG pCO2 62.9 H, ABG pO2 99, Hilario Test POS, O2 Delivery Device Nasal Can, Liter Flow 6.0, Blood Gas Notified Whom HOSP , Blood Gas Notified Time 2129 Clinical Impression(s) from Imaging Studies Chest X-Ray 03/05/19 18:55 IMPRESSION: Right basilar alveolar disease. Code Visit Inpatient E&M: 03185 Init Hosp L3 Procedures: 63114 Advncd Care Plan 30 Min
[2019-03-05 23:04] LABS: Reflex Lactate? Y
[2019-03-05] MEDS: Furosemide 40 MG/4 ML Vial IV (23:31)
[2019-03-05] MEDS: Metoprolol Tartrate 50 MG Tablet PO (23:31)
[2019-03-05] MEDS: Atorvastatin Calcium 40 MG Tablet PO (23:32)
[2019-03-05] MEDS: dilTIAZem CD 240 MG Capsule PO (23:32)
[2019-03-05] MEDS: Spironolactone 25 MG Tablet PO (23:32)
[2019-03-05] MEDS: APIXABAN 5 MG TABLET PO (23:32)
[2019-03-05] MEDS: 0.9% NaCl Peripheral Flush Adult/Peds IV (23:40)
[2019-03-05] MEDS: Piperacil/Tazobactam 4.5 GM in NS100 MBP IV (23:41)
[2019-03-05] MEDS: Ipratropium/Albuterol Sulfate 3 ML AMPUL.NEB INHALATION (23:50)
[2019-03-05 23:53] LABS: Lactic Acid 1.9 mmol/L (0.4-2.0)
[2019-03-05 23:54] LABS: Magnesium 1.6 mg/dL (1.6-2.6)
[2019-03-05 23:56] LABS: Bedside Glucose 301 mg/dL (70-110)
[2019-03-06] VITALS (34 sets, daily range): BP systolic 97–138; BP diastolic 51–73; PULSE 56–96; RESP 12–26; TEMP 36.4–37.1; O2SAT 95–100
[2019-03-06] MEDS: oxyCODONE 5 MG Tablet PO (00:44)
[2019-03-06] MEDS: 0.9% NaCl Peripheral Flush Adult/Peds IV ×3 (00:51→23:05)
--- NOTE | 2019-03-06 01:15 | PCM.RX.CS ---
Consult Pharmacy has been consulted to manage selected antiobiotic: Vancomycin Type of Consult: New start Suspected Infection: Other Prior Doses of Antibiotics Received/Current Regimen: Medications Vancomycin HCl 2,000 mg/ (Sodium Chloride) 540 mls @ 250 mls/hr IV X1 ONE Stop: 03/06/19 02:09 Last Admin: 03/06/19 00:44 Dose: 250 mls/hr Documented by: Labs: Sodium 136 mmol/L (136-145) 03/05/19 18:51 Potassium 4.2 mmol/L (3.5-5.1) 03/05/19 18:51 Chloride 94 mmol/L (98-107) L 03/05/19 18:51 Carbon Dioxide 38.0 mmol/L (21.0-32.0) H 03/05/19 18:51 Anion Gap 4 (5-15) L 03/05/19 18:51 BUN 18 mg/dL (7-18) 03/05/19 18:51 Creatinine 1.29 mg/dL (0.70-1.30) 03/05/19 18:51 Est GFR (MDRD) Af Amer 70 mL/min (>60) 03/05/19 18:51 Est GFR (MDRD) Non-Af 58 mL/min (>60) L 03/05/19 18:51 BUN/Creatinine Ratio 14.0 RATIO (10-20) 03/05/19 18:51 Glucose 262 mg/dL (74-106) H 03/05/19 18:51 Microbiology: Microbiology 03/05/19 23:50 Sputum, Expectorated/Coughed Gram Stain - Preliminary 03/05/19 20:00 Interface Orders Streptococcus pneumoniae Antigen (M - Final Streptococcus pneumonia Ag 03/05/19 20:00 Interface Orders Legionella Antigen - Final Weight used for dosin kg Estimated Creatinine Clearance: 47 mL/min Goal Trough: 15-20 mcg/mL Pharmacy Plan for Drug Dosing: Pharmacy Service will continue to monitor and adjust dosing as required. Follow-Up Labs: Trough Vancomycin - 03/07 @ 0930
[2019-03-06] MEDS: Magnesium Oxide 400 MG Tablet PO ×2 (01:29→09:04)
[2019-03-06] MEDS: Doxazosin 4 MG Tablet 8 MG PO ×2 (01:29→22:57)
[2019-03-06] MEDS: Metolazone 2.5 MG Tablet PO ×2 (01:31→09:07)
--- NOTE | 2019-03-06 01:54 | NURSING ---
Nystatin Powder, Eucerin lotion, and sharon cream not on unit despite calling pharmacy twice for all of patient medications. Charted against medications, applied lotion to legs per patient request for itching. Measured open areas, swabbed for MRSA per MD orders, cleaned legs with wipes and applied EM wraps per orders.
[2019-03-06] MEDS: Ipratropium/Albuterol Sulfate 3 ML AMPUL.NEB INHALATION ×5 (03:09→23:35)
[2019-03-06 05:23] LABS: M R Staph aureus DNA By PCR POSITIVE (Negative); Probe Check PASS; Staph aureus DNA By PCR POSITIVE (Negative)
[2019-03-06 05:25] LABS: M R Staph aureus DNA By PCR POSITIVE (Negative); Probe Check PASS
[2019-03-06 06:24] LABS: Absolute Lymphocyte Count 0.45 X10^3/uL (0.83-4.51); Absolute Neutrophil Count 7.7 X10^3/uL (2.0-7.7); Basophil# 0.02 X10^3/uL; Basophil% 0.2 % (0-1); Eosinophil# 0.01 X10^3/uL; Eosinophils% 0.1 % (0-5); Hematocrit 23.2 % (40-54); Hemoglobin 6.9 g/dL (13.0-16.5); Lymphocyte # 0.45 X10^3/ul (4.0); Lymphocyte % 5.3 % (19-41); Mean Corp Hgb Conc 29.7 g/dL (32-36); Mean Corpuscular Hgb 26.5 pg (27.0-32.0); Mean Corpuscular Volume 89.2 fL (80-94); Mean Platelet Vol. 9.8 fl (6.2-12.0); Monocyte# 0.37 X10^3/uL; Monocyte% 4.3 % (0-10); NRBC Flagged by Analyzer 0 % (0-5); Neutrophil # 7.65 X10^3/uL (2.7-7.7); Neutrophil % 89.3 % (47-70); POSITIVE DIFFERENTIAL YES; Platelet Count 227 K/mm3 (150-450); RBC Distribution Width CV 14.5 % (11.6-14.6); RBC Distribution Width SD 47.1 fl (35.1-43.9); White Blood Count 8.6 K/mm3 (4.4-11.0)
--- NOTE | 2019-03-06 06:36 | PN_ITS ---
Subjective: Day #2 Azithromycin, Vanco and Rocephin The patient is a 74-year-old male with extensive past medical history including COPD, iron deficiency anemia, pickwickian syndrome, diastolic congestive heart failure, chronic debility, MIKO, super obesity, hypertension, thoracic aneurysm (status post repair), gout, BPH, diabetes mellitus type 2 chronic respiratory failure with hypoxia and hypercapnia, hypertension, hyperlipidemia and long- standing venous insufficiency with venous ulcers of the lower extremities who presented to the emergency department at [facility] on 03/05/2019 complaining of increasing shortness of breath over the preceding 2 to 3 weeks. He has been unable to get out of his recliner for the past week. He complained of cough productive of thick yellow sputum. No signs in the emergency department were temperature 100 ?F, pulse rate 124, blood pressure 174/105, respiratory rate 24 and he was 97% saturated on a nonrebreather. White blood cell count was 8.8 with 71% neutrophils and 1.5% immature granulocytes. Hemoglobin was 9.2 with normochromic normocytic indices and a mildly increased RDW standard deviation. Lites were within normal limits. ABG on a 6 L nasal cannula revealed a pH of 7.41, PCO2 of 62.9 and a PO2 of 99. BMP showed a serum bicarb elevated at 38 and the BUN was 18 with a creatinine of 1.29 which is actually lower than his baseline which ranged from a low of 1.18 to a high of 1.84 over the preceding 10 months. LFTs were unremarkable and the BNP was 214. The CXR is a poor study and it was done AP. It was reported by radiology is having right basilar alveolar disease. Per my review it does not look significantly different than previous x-ray.....possible pleural effusions. The streptococcal antigen in the urine was positive. Blood cultures and urine culture were sent. Sputum Gram stain is pending and respiratory culture was ordered. EKG in the emergency department showed atrial fibrillation with rapid ventricular response and he converted to sinus bradycardia and normal sinus rhythm at approximately 2:20 AM. Respiratory panel was negative. He was admitted to a monitored bed on PCU with a diagnosis of sepsis secondary to streptococcal pneumonia, MRSA + nose and wounds LE's and he was started on ceftriaxone, vancomycin and azithromycin. All events of the past 24 hours been reviewed. T-max is 100 ?F at presentation to the emergency room and current temp is 97.9. Heart rate is 56 and his blood pressure is currently 114/55 after fluid boluses. He is 96% saturated on BiPAP with a 30% FiO2. White blood cell count is 8.6 today with a left shift but he was started on high-dose intravenous steroids. Hemoglobin is down to 6.9 from 9.2 at admission Serum bicarb today is 34, down from 38 at admission. Potassium is 4.6. Creatinine is increased at 1.46, up from 1.29 at admission. Serial troponins were negative. LDL is 59 and the HDL is 40. Triglycerides are normal at 138. TSH is normal at 1.14. Tells me that he is feeling a little better today. Denies CP or palpitations. Interpretation Summary Normal LV size. Left ventricular systolic function is normal. The estimated ejection fraction is 55 %. No regional wall motion abnormalities noted. Contrast injection was performed. - Physical Exam General: Cooperative, No apparent distress, Well developed, Well nourished, - - He aroused easily when I called his name. HEENT: Normocephalic Oral: Dry Mucosa Neck: No Nodes, Trachea Midline, - - his neck is very thick and I am unable to evaluate for JVD Lungs: Clear to auscultation - anterior and lateral....he was unable to sit forward enough for me to listen posteriorly.....will recheck when he is lying down. Cardiovascular: Regular Rhythm, Normal S1, Normal S2, No murmurs, Bradycardic, No rub noted, No Gallop, - - heart sounds due to body habitus Abdomen: Bowel Sounds Present, Soft, Non Tender, Non-Distended Vital Signs Temp Pulse Resp BP Pulse Ox 97.9 F 56 L 21 H 114/55 L 96 03/06/19 06:00 03/06/19 06:00 03/06/19 06:00 03/06/19 06:00 03/06/19 06:00 Oxygen Flow Rate (L/min) 6 Oxygen Delivery Method Bi-pap Weight: 341 lb 7.936 oz Body Mass Index (BMI) 51.3 Finger Stick Blood Glucose 171 Intake and Output for Last 24 Hours 03/04/19 03/05/19 03/06/19 23:59 23:59 23:59 Intake Total 850 / 850 955 / 955 Output Total 150 / 150 Balance 850 / 850 805 / 805 Microbiology Past 72 Hours 03/05/19 23:30 Respiratory Panel (PCR) - Final Interface Orders 03/05/19 23:50 Gram Stain - Preliminary Sputum, Expectorated/Coughed 03/05/19 20:00 Streptococcus pneumoniae Antigen (M - Final Interface Orders Streptococcus pneumonia Ag 03/05/19 20:00 Legionella Antigen - Final Interface Orders Laboratory Tests Past 24 Hrs 03/05/19 03/05/19 03/05/19 18:51 18:51 18:51 WBC 8.8 RBC 3.41 L Hgb 9.2 L Hct 31.0 L MCV 90.9 MCH 27.0 MCHC 29.7 L RDW Std Deviation 47.8 H RDW Coeff of El 14.3 Plt Count 335 MPV 8.9 Immature Gran % (Auto) 1.500 H Neut % (Auto) 71.1 H Lymph % (Auto) 11.0 L [place] % (Auto) 13.4 H Eos % (Auto) 2.1 Baso % (Auto) 0.9 Absolute Neuts (auto) 6.2 Absolute Lymphs (auto) 0.96 Nucleated RBC % 0 PT 14.9 INR 1.2 APTT 40.5 H Specimen Type Sample Site pH Bicarbonate Actual POC Total CO2 Base Excess O2 Saturation ABG pCO2 ABG pO2 Hilario Test O2 Delivery Device Liter Flow Blood Gas Notified Whom Blood Gas Notified Time Sodium 136 Potassium 4.2 Chloride 94 L Carbon Dioxide 38.0 H Anion Gap 4 L BUN 18 Creatinine 1.29 Estim Creat Clear Calc 47.13 Est GFR (MDRD) Af Amer 70 Est GFR (MDRD) Non-Af 58 L BUN/Creatinine Ratio 14.0 Glucose 262 H Lactic Acid Calcium 8.8 Magnesium Total Bilirubin 0.50 AST 14 L ALT 12 L Alkaline Phosphatase 71 Troponin I B-Natriuretic Peptide Total Protein 8.0 Albumin 2.3 L Globulin 5.7 H Albumin/Globulin Ratio 0.4 L Triglycerides Cholesterol LDL Cholesterol VLDL Cholesterol HDL Cholesterol TSH Urine Color Urine Clarity Urine pH Ur Specific [place] Urine Protein Urine Glucose (UA) Urine Ketones Urine Occult Blood Urine Nitrite Urine Bilirubin Urine Urobilinogen Ur Leukocyte Esterase Urine RBC Urine WBC Ur Squamous Epith Cells Urine Bacteria Urine Mucus S.aureus Protein A PCR MRSA (PCR) 03/05/19 03/05/19 03/05/19 18:51 18:51 18:51 WBC RBC Hgb Hct MCV MCH MCHC RDW Std Deviation RDW Coeff of [place] Plt Count MPV Immature Gran % (Auto) Neut % (Auto) Lymph % (Auto) [place] % (Auto) Eos % (Auto) Baso % (Auto) Absolute Neuts (auto) Absolute Lymphs (auto) Nucleated RBC % PT INR APTT Specimen Type Sample Site pH Bicarbonate Actual POC Total CO2 Base Excess O2 Saturation ABG pCO2 ABG pO2 Hilario Test O2 Delivery Device Liter Flow Blood Gas Notified Whom Blood Gas Notified Time Sodium Potassium Chloride Carbon Dioxide Anion Gap BUN Creatinine Estim Creat Clear Calc Est GFR (MDRD) Af Amer Est GFR (MDRD) Non-Af BUN/Creatinine Ratio Glucose Lactic Acid 2.4 H Calcium Magnesium Total Bilirubin AST ALT Alkaline Phosphatase Troponin I < 0.015 B-Natriuretic Peptide 214.4 H Total Protein Albumin Globulin Albumin/Globulin Ratio Triglycerides Cholesterol LDL Cholesterol VLDL Cholesterol HDL Cholesterol TSH Urine Color Urine Clarity Urine pH Ur Specific [place] Urine Protein Urine Glucose (UA) Urine Ketones Urine Occult Blood Urine Nitrite Urine Bilirubin Urine Urobilinogen Ur Leukocyte Esterase Urine RBC Urine WBC Ur Squamous Epith Cells Urine Bacteria Urine Mucus S.aureus Protein A PCR MRSA (PCR) 03/05/19 03/05/19 03/05/19 20:00 21:25 23:10 WBC RBC Hgb Hct MCV MCH MCHC RDW Std Deviation RDW Coeff of [place] Count MPV Immature Gran % (Auto) Neut % (Auto) Lymph % (Auto) [place] % (Auto) Eos % (Auto) Baso % (Auto) Absolute Neuts (auto) Absolute Lymphs (auto) Nucleated RBC % PT INR APTT Specimen Type ART Sample Site R Radial pH 7.41 Bicarbonate Actual 39.5 H POC Total CO2 41 Base Excess 15 H O2 Saturation 97 ABG pCO2 62.9 H ABG pO2 99 Hilario Test POS O2 Delivery Device Nasal Can Liter Flow 6.0 Blood Gas Notified Whom [facility] Blood Gas Notified Time 2130 Sodium Potassium Chloride Carbon Dioxide Anion Gap BUN Creatinine Estim Creat Clear Calc Est GFR (MDRD) Af Amer Est GFR (MDRD) Non-Af BUN/Creatinine Ratio Glucose Lactic Acid Calcium Magnesium 1.6 Total Bilirubin AST ALT Alkaline Phosphatase Troponin I 0.015 B-Natriuretic Peptide Total Protein Albumin Globulin Albumin/Globulin Ratio Triglycerides Cholesterol LDL Cholesterol VLDL Cholesterol HDL Cholesterol TSH Urine Color [place] Urine Clarity Cloudy Urine pH 8.0 Ur Specific [place] 1.015 Urine Protein 100 H Urine Glucose (UA) Normal Urine Ketones 5 H Urine Occult Blood 250 H Urine Nitrite Positive H Urine Bilirubin 1 H Urine Urobilinogen 4 H Ur Leukocyte Esterase 500 H Urine RBC 5-10 SEEN Urine WBC 25-50 SEEN Ur Squamous Epith Cells 0 SEEN Urine Bacteria 1+ Urine Mucus 0 SEEN S.aureus Protein A PCR MRSA (PCR) 03/05/19 03/06/19 03/06/19 23:10 01:30 01:30 WBC RBC Hgb Hct MCV MCH MCHC RDW Std Deviation RDW Coeff of [place] Plt Count MPV Immature Gran % (Auto) Neut % (Auto) Lymph % (Auto) [place] % (Auto) Eos % (Auto) Baso % (Auto) Absolute Neuts (auto) Absolute Lymphs (auto) Nucleated RBC % PT INR APTT Specimen Type Sample Site pH Bicarbonate Actual POC Total CO2 Base Excess O2 Saturation ABG pCO2 ABG pO2 Hilario Test O2 Delivery Device Liter Flow Blood Gas Notified Whom Blood Gas Notified Time Sodium Potassium Chloride Carbon Dioxide Anion Gap BUN Creatinine Estim Creat Clear Calc Est GFR (MDRD) Af Amer Est GFR (MDRD) Non-Af BUN/Creatinine Ratio Glucose Lactic Acid 1.9 Calcium Magnesium Total Bilirubin AST ALT Alkaline Phosphatase Troponin I B-Natriuretic Peptide Total Protein Albumin Globulin Albumin/Globulin Ratio Triglycerides Cholesterol LDL Cholesterol VLDL Cholesterol HDL Cholesterol TSH Urine Color Urine Clarity Urine pH Ur Specific [place] Urine Protein Urine Glucose (UA) Urine Ketones Urine Occult Blood Urine Nitrite Urine Bilirubin Urine Urobilinogen Ur Leukocyte Esterase Urine RBC Urine WBC Ur Squamous Epith Cells Urine Bacteria Urine Mucus S.aureus Protein A PCR POSITIVE H MRSA (PCR) POSITIVE H POSITIVE H 03/06/19 03/06/19 03/06/19 01:46 04:46 04:46 WBC Pending RBC Pending Hgb Pending Hct Pending MCV Pending MCH Pending MCHC Pending RDW Std Deviation Pending RDW Coeff of El Pending Plt Count Pending MPV Immature Gran % (Auto) Neut % (Auto) Pending Lymph % (Auto) [place] % (Auto) Eos % (Auto) Baso % (Auto) Absolute Neuts (auto) Pending Absolute Lymphs (auto) Nucleated RBC % PT INR APTT Specimen Type Sample Site pH Bicarbonate Actual POC Total CO2 Base Excess O2 Saturation ABG pCO2 ABG pO2 Hilario Test O2 Delivery Device Liter Flow Blood Gas Notified Whom Blood Gas Notified Time Sodium Pending Potassium Pending Chloride Pending Carbon Dioxide Pending Anion Gap Pending BUN Pending Creatinine Pending Estim Creat Clear Calc Est GFR (MDRD) Af Amer Pending Est GFR (MDRD) Non-Af Pending BUN/Creatinine Ratio Pending Glucose Pending Lactic Acid Calcium Pending Magnesium Total Bilirubin AST ALT Alkaline Phosphatase Troponin I < 0.015 Pending B-Natriuretic Peptide Total Protein Albumin Globulin Albumin/Globulin Ratio Triglycerides Pending Cholesterol Pending LDL Cholesterol Pending VLDL Cholesterol Pending HDL Cholesterol Pending TSH Pending Urine Color Urine Clarity Urine pH Ur Specific [place] Urine Protein Urine Glucose (UA) Urine Ketones Urine Occult Blood Urine Nitrite Urine Bilirubin Urine Urobilinogen Ur Leukocyte Esterase Urine RBC Urine WBC Ur Squamous Epith Cells Urine Bacteria Urine Mucus S.aureus Protein A PCR MRSA (PCR) POC Glucose 03/05/19 23:30 POC Glucose 301 H Medical Necessity - Tobacco Use Smoking Status: Former smoker Assessment/Plan All Active Problems (Last Reviewed 12/08/18 @ 03:44 by Garrett Whitley MD) New onset a-fib (Acute) Debility (Acute) Acute on chronic diastolic heart failure (Acute) History of repair of thoracic aortic aneurysm (Resolved 12/11/09) H/O aortic valve replacement (Resolved 12/11/09) Acute on chronic respiratory failure with hypoxia and hypercapnia (Resolved) Bilateral lower leg cellulitis (Resolved) CAP (community acquired pneumonia) (Resolved) CHF exacerbation (Resolved) Hyperkalemia (Resolved) Hypoglycemia (Resolved) Hypoglycemia (Resolved) Hypomagnesemia (Resolved) Hyponatremia (Resolved) Pulmonary embolism on right (Resolved) Shortness of breath (Resolved) Tobacco abuse (Resolved) Wheezing (Resolved) Impressions 1. Streptococcal PNA with acute on chronic combined respiratory failure - vancomycin discontinued. Rocephin continued. 2. Acute on chronic combined respiratory failure-baseline supplemental oxygen requirement is 3 to 4 L and he required a nonrebreather and BiPAP at admission. 3. Acute on chronic anemia with a hemoglobin of 6.9 today. Stool was Hemoccult positive. He is on Plavix chronically. Dr. Rubio consulted for endoscopy. 2 units of packed red blood cells ordered today. Recheck H&H ordered for 2 hours posttransfusion. 4. Acute exacerbation of COPD secondary to streptococcal pneumonia-continue steroids, BiPAP, bronchodilators and antibiotics. 5. Obstructive sleep apnea- pt states compliant with BiPAP therapy, however compliance reports are not consistent with utilizing BiPAP. 6. History of diastolic congestive heart failure with preserved ejection fraction-not currently in congestive heart failure at this time. 7. COPD/pickwickian syndrome/chronic debility/super obesity/hypertension/BPH/gout/diabetes mellitus type 2/chronic venous insufficiency with venous stasis ulcers of the lower extremities, colonization with MRSA -continue home medications and start chlorhexidine and Bactroban for decolonization. Code Visit Inpatient E&M: 16144 Subs Hosp L3
[2019-03-06] MEDS: Insulin Lispro 100 UNIT/ML INSULN.PEN SC ×4 (06:37→22:58)
[2019-03-06 06:42] LABS: Anion Gap 6 (5-15); BUN 25 mg/dL (7-18); BUN/Creat Ratio 17.1 RATIO (10-20); Calcium,Total 7.9 mg/dL (8.5-10.1); Chloride 97 mmol/L (98-107); Cholesterol 127 mg/dL (200); Creatinine, Serum 1.46 mg/dL (0.70-1.30); EST Glomerular Filtration Rate 50 mL/min (>60); Est Glom Filt Rate - Afr Amer 60 mL/min (>60); Estimated Creatinine Clearance 41.64 ml/min; Glucose 298 mg/dL (74-106); High Density Lipoprotein 40 mg/dL; Potassium 4.6 mmol/L (3.5-5.1); Sodium Level 137 mmol/L (136-145); Thyroid Stim Hormone (TSH) 1.14 uIU/mL (0.358-3.74); Triglycerides 138 mg/dL; Very Low Density Lipoprotein 28 mg/dL (5-40)
[2019-03-06 06:45] LABS: Bedside Glucose 310 mg/dL (70-110)
[2019-03-06 06:52] LABS: Differential Indicated SCAN CRITERIA MET
--- NOTE | 2019-03-06 07:19 | CON.PCM_ITS ---
Reason for Consult Date of Consultation: 03/06/19 Reason for Consultation: Shortness of breath History of Present Illness: The patient is a 74-year-old male, with a history as outlined below, who presented to the emergency department on March 05 with complaints of progressive shortness of breath. In addition to chronic hypoxemic respiratory failure, MIKO and obstructive lung disease, the patient is currently followed in the cardiology clinic by Dr. Raymundo due to a history of aortic valve replacement and heart failure with preserved ejection fraction. Surface echocardiogram from November 2018 revealed normal LV size and function with an ejection fraction of 55%. Although the patient has been seen in the past in the pulmonary medicine clinic by myself, he has been noncompliant with follow-up since December 2017. The patient has known moderately severe obstructive lung disease with significant response to aerosolized bronchodilators and evidence of air trapping and reduction in diffusing capacity, based off of PFTs completed in April 2016. The patient also has known severe obstructive sleep apnea, which was diagnosed in December 2015. The patient has an approximate [id number] smoking history, having quit in 1966. Patient eventually underwent a titration study which was recommended that he be placed on BiPAP therapy with a pressure setting of 18/12 cm of water. However, the patient has a long-standing history of noncompliance with the use of nocturnal BiPAP therapy. In addition, attempts to repeat his pulmonary function studies have been unsuccessful, as the patient is failed to complete testing. At the time of his last office visit, the patient was on a triple therapy inhaler regimen. On presentation to the emergency department, the patient was noted to be febrile, tachycardic and tachypneic. He was also hypoxemic requiring a nonrebreather. Initial laboratory evaluation revealed no evidence of a leukocytosis. His presenting hemoglobin was noted to be 9.2 g/dL. Coagulation profile was within normal limits. Arterial blood gas obtained on 6 L/min revealed a pH of 7.41 with a corresponding PCO2 of 63 and PO2 of 99. Chemistry profile was notable for an elevated bicarbonate to 38, which is a chronic finding. Creatinine was noted to be 1.29. Lactate was elevated to 2.4. BNP was mildly elevated to 214 with a negative troponin. Urinalysis was positive for nitrites and leukocyte esterase. 25-50 white blood cells were noted along with 1+ urine bacteria. MRSA screen was positive. Plain film chest x-ray revealed evidence of right basilar airspace disease. EKG revealed atrial fibrillation with a rate of 120. The patient was subsequently started on ceftriaxone and azithromycin. He was admitted to the progressive care unit for further management. Past Medical History Past Medical History (Chronic Problems): Chronic Problems (Last Reviewed 12/08/18 @ 03:44 by Garrett Whitley MD) COPD with exacerbation (Chronic) Pickwickian syndrome (Chronic) Iron deficiency anemia (Chronic) etology unknown COPD (chronic obstructive pulmonary disease) (Chronic) Obstructive sleep apnea (Chronic) Super obesity (Chronic) Hypertension (Chronic) Thoracic aortic aneurysm (Chronic) Lymphedema (Chronic) Gout (Chronic) BPH (benign prostatic hyperplasia) (Chronic) Hypomagnesemia (Chronic) Diabetes mellitus (Chronic) CHF exacerbation (Chronic) Chronic respiratory failure with hypoxia and hypercapnia (Chronic) Essential (primary) hypertension (Chronic) Chronic diastolic heart failure (Chronic) Thoracic aortic aneurysm without rupture (Chronic) Status post ascending and proximal arch aneurysm replaced with a Hemashield graft and shayan-arch repair; Hyperlipidemia (Chronic) Lymphedema of leg (Chronic) Medical History: Medical History (Last Reviewed 12/08/18 @ 03:44 by Garrett Whitley MD) Chronic respiratory failure with hypoxia and hypercapnia (Chronic) J96.11, J96.12 Essential (primary) hypertension (Chronic) I10 Chronic diastolic heart failure (Chronic) I50.32 Thoracic aortic aneurysm without rupture (Chronic) I71.2 Status post ascending and proximal arch aneurysm replaced with a Hemashield graft and shayan-arch repair; Hyperlipidemia (Chronic) E78.5 Lymphedema of leg (Chronic) I89.0 BPH w/o urinary obs/LUTS N40.0 COPD (chronic obstructive pulmonary disease) J44.9 Chronic anemia D64.9 Chronic kidney disease, stage 2 (mild) N18.2 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 GERD (gastroesophageal reflux disease) K21.9 History of pulmonary embolism Z86.711 Iron deficiency anemia D50.9 Lymphedema I89.0 Morbid obesity E66.01 Obstructive sleep apnea G47.33 Osteoarthritis M19.90 Tinea unguium B35.1 Ulcer of left lower extremity with fat layer exposed L97.922 Ulcer of right lower extremity with fat layer exposed L97.912 Venous insufficiency I87.2 Ventral hernia K43.9 Acute on chronic respiratory failure with hypoxia and hypercapnia (Resolved) J96.21, J96.22 Acute on chronic respiratory failure with hypoxia and hypercapnia J96.21, J96.22 Adynamic ileus K56.0 CAP (community acquired pneumonia) (Resolved) J18.9 The patient appropriately completed antibiotics and prednisone as prescribed. He has no further signs and symptoms of persistent pneumonia. No indication for any further testing at this time. Patient will be eligible for Pneumovax 23 in approximately 6 months. He states that his PCP is very good at keeping track of his immunizations and when they are due. CHF exacerbation (Resolved) I50.9 Hypoglycemia (Resolved) E16.2 Pulmonary embolism on right (Resolved) I26.99 Tobacco abuse (Resolved) Z72.0 Wheezing (Resolved) R06.2 Edema of both legs (Inactive) R60.0 Immobility (Inactive) Z74.09 Leg swelling (Inactive) M79.89 Multiple excoriations (Inactive) T14.8 Nausea and vomiting (Inactive) R11.2 Tinea unguium (Inactive) B35.1 Allergies naphazoline HCl [From Naphcon] Allergy (Severe, Verified 03/05/19 18:48) affected his breathing AFFECTED HIS BREATHING amlodipine besylate [From Norvasc] Allergy (Verified 03/05/19 18:48) Other dextromethorphan Allergy (Verified 03/05/19 18:48) Other levofloxacin [From Levaquin] Adverse Reaction (Mild, Verified 03/05/19 18:48) made me hyperactive made me hyperactive Home Medications: Ambulatory Orders Medication Instructions Recorded Allopurinol [Zyloprim] 300 mg PO DAILY 06/15/18 Clopidogrel Bisulfate [Plavix] 75 mg PO DAILY 06/15/18 Finasteride [Proscar] 5 mg PO DAILY 06/15/18 Magnesium 250 mg PO BID 06/15/18 Metolazone [Zaroxolyn] 2.5 mg PO DAILY 06/15/18 Metoprolol Tartrate [Lopressor 50 mg PO BID 06/15/18 (beta maryam)] Sertraline HCl [Zoloft] 100 mg PO DAILY 06/15/18 Spironolactone [Aldactone] 25 mg PO BID 06/15/18 Atorvastatin Calcium 40 mg PO QHS 12/07/18 Losartan Potassium 100 mg PO DAILY 12/07/18 Terazosin HCl 10 mg PO QHS 12/07/18 Budesonide/Formoterol 160/4.5 2 puff INHALATION BID 12/13/18 [Symbicort 160/4.5 Mcg Inhaler (SP)] Glimepiride [Amaryl] 2 mg PO DAILY 12/13/18 Nystatin Powder [Mycostatin Powder] 1 applic TOPICAL BID 12/13/18 Acetaminophen [Tylenol] 1,000 mg PO Q6H PRN PRN tab 01/03/19 Iron Polysaccharide Complex 150 mg PO DAILYCM #30 cap 01/03/19 [Ferrex 150] Menthol/Lanolin/Calamine/Znox 1 applic TOPICAL BID tube 01/03/19 [Calmoseptine Ointment] Mineral Oil/Petrolatum,White 1 applic TOPICAL 0600,2200 jar 01/03/19 [Eucerin] Pantoprazole Sodium [Protonix] 40 mg PO DAILY #30 tab 01/03/19 Docusate Sodium 100 mg PO DAILY PRN 02/01/19 Surgical History: Surgical History (Last Reviewed 12/08/18 @ 03:44 by Garrett Whitley MD) History of repair of thoracic aortic aneurysm (Resolved) Onset Date: 12/11/09 Z98.890, Z86.79 H/O aortic valve replacement (Resolved) Onset Date: 12/11/09 Z95.2 # 29 Freestyle valve H/O hernia repair Z98.890, Z87.19 Surgical History: herniorrhaphy - Large ventral hernia with mesh., - - He has a bioprosthetic aortic valve replacement, abdominal aortic aneurysm repair 2004. Psychiatric History: Anxiety, Depression Smoking Status: Former smoker - *Family History Maternal Family History: Family History (Last Reviewed 12/08/18 @ 03:44 by Garrett Whitley MD) Brother TBI (traumatic brain injury) Sister Ulcerative colitis History Items: Hypertension, - - Patient's father at the age of 94 from old age. Patient's mother at age of 87 with a history of hyperlipidemia and hypertension. Paternal Family History: Family History (Last Reviewed 12/08/18 @ 03:44 by Garrett Whitley MD) Brother TBI (traumatic brain injury) Sister Ulcerative colitis History Items: Hypertension Review of Systems Constitutional: Reports: Malaise, Fatigue Eyes: Denies: Blurred vision, Double vision HEENT: Denies: Head Aches, Sinus Congestion, Sinus Drainage Cardiovascular: Denies: Chest Pain, Palpitations Respiratory: Reports: Cough, Shortness of Breath Gastrointestinal: Denies: Abdominal Pain, Nausea, Vomiting Genitourinary: Denies: Dysuria Musculoskeletal: Denies: Joint Pain, Joint Tenderness Skin: Denies: Rash, Wounds Neurological: Denies: Numbness, Tingling, Focal weakness Psychiatric: Denies: Anxiety, Depression, Homicidal Ideations, Suicidal Ideations Hematologic/ Lymphatic: Reports: Anemia Objective: The patient's most recent lab work, culture data and imaging studies have all been personally reviewed. Respiratory viral panel was negative. Urine Legionella antigen was negative. Streptococcal urinary antigen was positive. Expectorated sputum cultures pending. Blood and urine cultures are also pending. - Physical Exam General: Alert, Oriented x3, Cooperative, No apparent distress, - - Morbidly obese. BiPAP mask currently in place with significant air leak. HEENT: Atraumatic, PERRLA, Normocephalic Oral: No Gingival or Mucosal Lesions/ Ulcerations Neck: Supple, No Nodes, Trachea Midline Lungs: Diminished, Rhonchi, Wheezes Cardiovascular: Normal S1, Normal S2, No murmurs, Irregular Rate Abdomen: Bowel Sounds Present, Soft, Non Tender, Obese Extremities: No clubbing, No cyanosis, Edema Skin: - - Wrap lower extremities Musculoskeletal: No Muscle Wasting Lymphatic: No Cervical, Supraclavicular, or Inguinal Adenopathy Neurological: Cranial nerves II-XII grossly intact, Neuro grossly intact Psych/Mental Status: Normal Affect, Appropriate Vital Signs Temp Pulse Resp BP Pulse Ox 97.9 F 56 L 21 H 114/55 L 96 03/06/19 06:00 03/06/19 06:00 03/06/19 06:00 03/06/19 06:00 03/06/19 06:00 Oxygen Flow Rate (L/min) 6 Oxygen Delivery Method Bi-pap Weight: 341 lb 7.936 oz Body Mass Index (BMI) 51.3 Finger Stick Blood Glucose 171 Intake and Output for Last 24 Hours 03/04/19 03/05/19 03/06/19 23:59 23:59 23:59 Intake Total 850 / 850 955 / 955 Output Total 150 / 150 Balance 850 / 850 805 / 805 Microbiology Past 72 Hours 03/05/19 23:30 Respiratory Panel (PCR) - Final Interface Orders 03/05/19 23:50 Gram Stain - Preliminary Sputum, Expectorated/Coughed 03/05/19 20:00 Streptococcus pneumoniae Antigen (M - Final Interface Orders Streptococcus pneumonia Ag 03/05/19 20:00 Legionella Antigen - Final Interface Orders Laboratory Tests Past 24 Hrs 03/05/19 03/05/19 03/05/19 18:51 18:51 18:51 WBC 8.8 RBC 3.41 L Hgb 9.2 L Hct 31.0 L MCV 90.9 MCH 27.0 MCHC 29.7 L RDW Std Deviation 47.8 H RDW Coeff of El 14.3 Plt Count 335 MPV 8.9 Immature Gran % (Auto) 1.500 H Neut % (Auto) 71.1 H Lymph % (Auto) 11.0 L [place] % (Auto) 13.4 H Eos % (Auto) 2.1 Baso % (Auto) 0.9 Absolute Neuts (auto) 6.2 Absolute Lymphs (auto) 0.96 Nucleated RBC % 0 PT 14.9 INR 1.2 APTT 40.5 H Specimen Type Sample Site pH Bicarbonate Actual POC Total CO2 Base Excess O2 Saturation ABG pCO2 ABG pO2 Hilario Test O2 Delivery Device Liter Flow Blood Gas Notified Whom Blood Gas Notified Time Sodium 136 Potassium 4.2 Chloride 94 L Carbon Dioxide 38.0 H Anion Gap 4 L BUN 18 Creatinine 1.29 Estim Creat Clear Calc 47.13 Est GFR (MDRD) Af Amer 70 Est GFR (MDRD) Non-Af 58 L BUN/Creatinine Ratio 14.0 Glucose 262 H Lactic Acid Calcium 8.8 Magnesium Total Bilirubin 0.50 AST 14 L ALT 12 L Alkaline Phosphatase 71 Troponin I B-Natriuretic Peptide Total Protein 8.0 Albumin 2.3 L Globulin 5.7 H Albumin/Globulin Ratio 0.4 L Triglycerides Cholesterol LDL Cholesterol VLDL Cholesterol HDL Cholesterol TSH Urine Color Urine Clarity Urine pH Ur Specific [place] Urine Protein Urine Glucose (UA) Urine Ketones Urine Occult Blood Urine Nitrite Urine Bilirubin Urine Urobilinogen Ur Leukocyte Esterase Urine RBC Urine WBC Ur Squamous Epith Cells Urine Bacteria Urine Mucus S.aureus Protein A PCR MRSA (PCR) 03/05/19 03/05/19 03/05/19 18:51 18:51 18:51 WBC RBC Hgb Hct MCV MCH MCHC RDW Std Deviation RDW Coeff of [place] Count MPV Immature Gran % (Auto) Neut % (Auto) Lymph % (Auto) [place] % (Auto) Eos % (Auto) Baso % (Auto) Absolute Neuts (auto) Absolute Lymphs (auto) Nucleated RBC % PT INR APTT Specimen Type Sample Site pH Bicarbonate Actual POC Total CO2 Base Excess O2 Saturation ABG pCO2 ABG pO2 Hilario Test O2 Delivery Device Liter Flow Blood Gas Notified Whom Blood Gas Notified Time Sodium Potassium Chloride Carbon Dioxide Anion Gap BUN Creatinine Estim Creat Clear Calc Est GFR (MDRD) Af Amer Est GFR (MDRD) Non-Af BUN/Creatinine Ratio Glucose Lactic Acid 2.4 H Calcium Magnesium Total Bilirubin AST ALT Alkaline Phosphatase Troponin I < 0.015 B-Natriuretic Peptide 214.4 H Total Protein Albumin Globulin Albumin/Globulin Ratio Triglycerides Cholesterol LDL Cholesterol VLDL Cholesterol HDL Cholesterol TSH Urine Color Urine Clarity Urine pH Ur Specific [place] Urine Protein Urine Glucose (UA) Urine Ketones Urine Occult Blood Urine Nitrite Urine Bilirubin Urine Urobilinogen Ur Leukocyte Esterase Urine RBC Urine WBC Ur Squamous Epith Cells Urine Bacteria Urine Mucus S.aureus Protein A PCR MRSA (PCR) 03/05/19 03/05/19 03/05/19 20:00 21:25 23:10 WBC RBC Hgb Hct MCV MCH MCHC RDW Std Deviation RDW Coeff of [place] Count MPV Immature Gran % (Auto) Neut % (Auto) Lymph % (Auto) [place] % (Auto) Eos % (Auto) Baso % (Auto) Absolute Neuts (auto) Absolute Lymphs (auto) Nucleated RBC % PT INR APTT Specimen Type ART Sample Site R Radial pH 7.41 Bicarbonate Actual 39.5 H POC Total CO2 41 Base Excess 15 H O2 Saturation 97 ABG pCO2 62.9 H ABG pO2 99 Hilario Test POS O2 Delivery Device Nasal Can Liter Flow 6.0 Blood Gas Notified [facility]om [facility] Blood Gas Notified Time 2130 Sodium Potassium Chloride Carbon Dioxide Anion Gap BUN Creatinine Estim Creat Clear Calc Est GFR (MDRD) Af Amer Est GFR (MDRD) Non-Af BUN/Creatinine Ratio Glucose Lactic Acid Calcium Magnesium 1.6 Total Bilirubin AST ALT Alkaline Phosphatase Troponin I 0.015 B-Natriuretic Peptide Total Protein Albumin Globulin Albumin/Globulin Ratio Triglycerides Cholesterol LDL Cholesterol VLDL Cholesterol HDL Cholesterol TSH Urine Color [place] Urine Clarity Cloudy Urine pH 8.0 Ur Specific [place] 1.015 Urine Protein 100 H Urine Glucose (UA) Normal Urine Ketones 5 H Urine Occult Blood 250 H Urine Nitrite Positive H Urine Bilirubin 1 H Urine Urobilinogen 4 H Ur Leukocyte Esterase 500 H Urine RBC 5-10 SEEN Urine WBC 25-50 SEEN Ur Squamous Epith Cells 0 SEEN Urine Bacteria 1+ Urine Mucus 0 SEEN S.aureus Protein A PCR MRSA (PCR) 03/05/19 03/06/19 03/06/19 23:10 01:30 01:30 WBC RBC Hgb Hct MCV MCH MCHC RDW Std Deviation RDW Coeff of [place] Count MPV Immature Gran % (Auto) Neut % (Auto) Lymph % (Auto) [place] % (Auto) Eos % (Auto) Baso % (Auto) Absolute Neuts (auto) Absolute Lymphs (auto) Nucleated RBC % PT INR APTT Specimen Type Sample Site pH Bicarbonate Actual POC Total CO2 Base Excess O2 Saturation ABG pCO2 ABG pO2 Hilario Test O2 Delivery Device Liter Flow Blood Gas Notified Whom Blood Gas Notified Time Sodium Potassium Chloride Carbon Dioxide Anion Gap BUN Creatinine Estim Creat Clear Calc Est GFR (MDRD) Af Amer Est GFR (MDRD) Non-Af BUN/Creatinine Ratio Glucose Lactic Acid 1.9 Calcium Magnesium Total Bilirubin AST ALT Alkaline Phosphatase Troponin I B-Natriuretic Peptide Total Protein Albumin Globulin Albumin/Globulin Ratio Triglycerides Cholesterol LDL Cholesterol VLDL Cholesterol HDL Cholesterol TSH Urine Color Urine Clarity Urine pH Ur Specific [place] Urine Protein Urine Glucose (UA) Urine Ketones Urine Occult Blood Urine Nitrite Urine Bilirubin Urine Urobilinogen Ur Leukocyte Esterase Urine RBC Urine WBC Ur Squamous Epith Cells Urine Bacteria Urine Mucus S.aureus Protein A PCR POSITIVE H MRSA (PCR) POSITIVE H POSITIVE H 03/06/19 03/06/19 03/06/19 01:46 04:46 04:46 WBC 8.6 RBC 2.60 L Hgb 6.9 L Hct 23.2 L MCV 89.2 MCH 26.5 L MCHC 29.7 L RDW Std Deviation 47.1 H RDW Coeff of El 14.5 Plt Count 227 MPV 9.8 Immature Gran % (Auto) 0.800 Neut % (Auto) 89.3 H Lymph % (Auto) 5.3 L [place] % (Auto) 4.3 Eos % (Auto) 0.1 Baso % (Auto) 0.2 Absolute Neuts (auto) 7.7 Absolute Lymphs (auto) 0.45 L Nucleated RBC % 0 PT INR APTT Specimen Type Sample Site pH Bicarbonate Actual POC Total CO2 Base Excess O2 Saturation ABG pCO2 ABG pO2 Hilario Test O2 Delivery Device Liter Flow Blood Gas Notified Whom Blood Gas Notified Time Sodium 137 Potassium 4.6 Chloride 97 L Carbon Dioxide 34.0 H Anion Gap 6 BUN 25 H Creatinine 1.46 H Estim Creat Clear Calc 41.64 Est GFR (MDRD) Af Amer 60 Est GFR (MDRD) Non-Af 50 L BUN/Creatinine Ratio 17.1 Glucose 298 H Lactic Acid Calcium 7.9 L Magnesium Total Bilirubin AST ALT Alkaline Phosphatase Troponin I < 0.015 < 0.015 B-Natriuretic Peptide Total Protein Albumin Globulin Albumin/Globulin Ratio Triglycerides 138 Cholesterol 127 LDL Cholesterol 59 VLDL Cholesterol 28 HDL Cholesterol 40 TSH 1.14 Urine Color Urine Clarity Urine pH Ur Specific [place] Urine Protein Urine Glucose (UA) Urine Ketones Urine Occult Blood Urine Nitrite Urine Bilirubin Urine Urobilinogen Ur Leukocyte Esterase Urine RBC Urine WBC Ur Squamous Epith Cells Urine Bacteria Urine Mucus S.aureus Protein A PCR MRSA (PCR) POC Glucose 03/06/19 03/05/19 06:36 23:30 POC Glucose 310 H 301 H Clinical Impression(s) from Imaging Studies Chest X-Ray 03/05/19 18:55 IMPRESSION: Right basilar alveolar disease. Electronically Signed: Everett Rossi MD at 19:23 EDT Tel , Service support , Assessment/Plan All Active Problems (Last Reviewed 12/08/18 @ 03:44 by Garrett Whitley MD) New onset a-fib (Acute) Debility (Acute) Acute on chronic diastolic heart failure (Acute) History of repair of thoracic aortic aneurysm (Resolved 12/11/09) H/O aortic valve replacement (Resolved 12/11/09) Acute on chronic respiratory failure with hypoxia and hypercapnia (Resolved) Bilateral lower leg cellulitis (Resolved) CAP (community acquired pneumonia) (Resolved) CHF exacerbation (Resolved) Hyperkalemia (Resolved) Hypoglycemia (Resolved) Hypoglycemia (Resolved) Hypomagnesemia (Resolved) Hyponatremia (Resolved) Pulmonary embolism on right (Resolved) Shortness of breath (Resolved) Tobacco abuse (Resolved) Wheezing (Resolved) RECOMMENDATIONS: 1. Continue BiPAP therapy as tolerated. Wean oxygen as tolerated. 2. Continue bronchodilators and IV steroids. 3. Discontinue order for IV morphine. 4. Continue ceftriaxone as ordered. 5. Transfuse blood products if repeat hemoglobin is less than 7 g/dL. 6. Close outpatient pulmonary follow-up after discharge is recommended. IMPRESSIONS: 1. Acute on chronic combined respiratory failure, likely secondary to COPD exacerbation due to pneumococcal pneumonia The patient has a baseline supplemental oxygen requirement of 3 to 4 L along with underlying obstructive lung disease, for which he has been prescribed a triple therapy inhaler regimen in the past. The patient has essentially been noncompliant with outpatient pulmonary follow-up. Therefore, I am not certain if he is truly utilizing the inhalers previously prescribed. Regardless, the patient does have evidence of a right basilar pneumonia in the setting of a positive pneumococcal urine antigen. I agree with continuing BiPAP therapy as tolerated. At this time, recommend continuing ceftriaxone as ordered. Continue bronchodilators and IV steroids. 2. Anemia The patient did have a colonoscopy performed in November 2018 which revealed internal and external hemorrhoids along with transverse colon polyps. While the patient did receive supplemental IV fluids on presentation, his hemoglobin this morning was noted to be 6.9 g/dL. A repeat H&H is currently pending. If the patient's hemoglobin is truly less than 7 g/dL, I would recommend transfusing packed red blood cells. Continue PPI therapy. 3. Heart failure with preserved ejection fraction/status post aortic valve replacement/atrial fibrillation Diuretics currently on hold, given underlying renal insufficiency. Cardiology consultation is currently pending. 4. Known history of obstructive sleep apnea The patient has a known history of obstructive sleep apnea, for which she is prescribed outpatient BiPAP therapy. However, despite the patient's insistence that he utilizes his BiPAP, prior office visits during which time his compliance report was reviewed, clearly indicated that the patient was not utilizing his nocturnal Pap therapy as prescribed. 5. Morbid obesity/history of medical noncompliance/hypertension/hyperlipidemia/diabetes mellitus/GERD Complicates care, management, recovery and prognosis. Continue home medications as indicated. Recommend physical therapy evaluation. This note was generated with iRatesation software. It may contain incorrect words, spelling, and punctuation that were not noted in checking the note before signing. Code Visit Inpatient E&M: 74642 Init Hosp L3
[2019-03-06 07:36] LABS: Base Excess 10 mmol/L (-2 to +2); Bicarbonate 35.2 mmol/L (22-26); EPAP 12; FI02 30; IPAP 18; PO2 38 mmHG (75-100); RR 12; SITE R Radial; SO2 71 % (95-99); Time Given 724; Total Carbon Dioxide 37 mmol/L; pCO2 57.6 mmHg (35-45); pH 7.39 (7.35-7.45)
[2019-03-06 07:41] LABS: Differential Comment SCANNED
--- NOTE | 2019-03-06 07:52 | CPS ---
Critical PAO2 of 38. Venous sample obtained. Dr. Wilcox notified.
[2019-03-06 08:09] LABS: Hematocrit 24.4 % (40-54); Hemoglobin 7.4 g/dL (13.0-16.5)
[2019-03-06 08:15] LABS: Magnesium 1.7 mg/dL (1.6-2.6); Phosphorus 3.4 mg/dL (2.5-4.9)
[2019-03-06] MEDS: 0.9% Normal Saline 1,000 ML 75 ML IV (09:02)
[2019-03-06] MEDS: Iron Polysaccharide Complex 150 MG CAPSULE PO (09:02)
[2019-03-06] MEDS: guaiFENesin 1,200 MG Tablet 1200 MG PO ×2 (09:03→23:00)
[2019-03-06] MEDS: Allopurinol 300 MG Tablet PO (09:03)
[2019-03-06] MEDS: Clopidogrel Bisulfate 75 MG Tablet PO (09:03)
[2019-03-06] MEDS: Finasteride 5 MG Tablet PO (09:03)
[2019-03-06] MEDS: Metoprolol Tartrate 50 MG Tablet PO ×2 (09:03→23:00)
[2019-03-06] MEDS: Pantoprazole Sodium 40 MG Tablet PO (09:03)
[2019-03-06] MEDS: dilTIAZem CD 240 MG Capsule PO (09:03)
[2019-03-06] MEDS: Losartan Potassium 100 MG Tablet PO (09:03)
[2019-03-06] MEDS: Spironolactone 25 MG Tablet PO (09:03)
[2019-03-06] MEDS: Sertraline 100 MG Tablet PO (09:03)
[2019-03-06] MEDS: Nystatin Powder 15gm Bottle 1 APPLIC TOPICAL ×2 (09:04→23:01)
[2019-03-06] MEDS: Mupirocin Ointment 22gm Tube 1 APPLIC TOPICAL ×2 (09:05→22:57)
[2019-03-06] MEDS: CHLORHEXIDINE GLUC 2% CLOTH 1 EACH TOWELETTE TOPICAL (09:06)
[2019-03-06] MEDS: Ceftriaxone 1 GM/50 ML BAG IV (09:06)
[2019-03-06] MEDS: Menthol/Lanolin/Calamine/Znox 113 GM Tube 1 APPLIC TOPICAL ×2 (09:06→22:57)
[2019-03-06 11:51] LABS: Bedside Glucose 300 mg/dL (70-110)
--- NOTE | 2019-03-06 16:42 | CON.PCM_ITS ---
Problem List (1) CHF exacerbation Status: Chronic (2) New onset a-fib Status: Acute Comment: Converted to sinus rhythm Reason for Consult Date of Consultation: 03/06/19 History of Present Illness: The patient is a 74 year old M with multiple comorbidities coming to the ER with progressive worsening of shortness of breath for 2 to 3 weeks culminating to the point that he was not able to breathe and was unable to get up after bowel movement. Patient has been on recliner and has been unable to get out of chair for for about 1 week. Patient denies chest pain. Patient has cough and brings up thick yellow sputum. Patient also has fever/chills and chest congestion. In ED, temperature was 100 Fahrenheit, heart rate 125/min, blood pressure 174/105, respiratory rate 24, and pulse ox 85% on 5 L of oxygen. Patient was put on nonrebreather. He is only patient is on 4 L of oxygen but for last 1 to 2 weeks he required 6 L of oxygen. He would just CPAP and BiPAP also at home. Patient is morbidly obese with pickwickian syndrome, COPD and follows Dr. Clay. Chest x-ray in the ER shows right lower lobe opacity's suggestive of infiltrate and hypoventilation, small bilateral pleural effusion and cephalization of upper lobe. First troponin negative Basic blood work-up in ER shows BNP 214 but may be falsely low in morbid obese patient. ABG 7.4/63/99 on 6 L of oxygen nasal cannula. His baseline PCO2 was 57 in May 2018. Bicarb and BMP 38. Patient was put on BiPAP. Lactic acid 2.4. Patient is also having liquid diarrhea probably related to overmedication of laxative as he is usually constipated. 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 He also has a history of diastolic congestive heart failure, hypertension, diabetes mellitus, MIKO with CPAP therapy, and obesity. Patient was noted to have A. fib with RVR. He is now in normal sinus rhythm with PACs. His breathing has improved. Review of systems: All systems reviewed. All else is negative except that in the HPI. Past Medical History Allergies/Adverse Reactions: Allergies naphazoline HCl [From Naphcon] Allergy (Severe, Verified 03/05/19 18:48) affected his breathing AFFECTED HIS BREATHING amlodipine besylate [From Norvasc] Allergy (Verified 03/05/19 18:48) Other dextromethorphan Allergy (Verified 03/05/19 18:48) Other levofloxacin [From Levaquin] Adverse Reaction (Mild, Verified 03/05/19 18:48) made me hyperactive made me hyperactive Home Medications: Ambulatory Orders Medication Instructions Recorded Allopurinol [Zyloprim] 300 mg PO DAILY 06/15/18 Clopidogrel Bisulfate [Plavix] 75 mg PO DAILY 06/15/18 Finasteride [Proscar] 5 mg PO DAILY 06/15/18 Magnesium 250 mg PO BID 06/15/18 Metolazone [Zaroxolyn] 2.5 mg PO DAILY 06/15/18 Metoprolol Tartrate [Lopressor 50 mg PO BID 06/15/18 (beta maryam)] Sertraline HCl [Zoloft] 100 mg PO DAILY 06/15/18 Spironolactone [Aldactone] 25 mg PO BID 06/15/18 Atorvastatin Calcium 40 mg PO QHS 12/07/18 Losartan Potassium 100 mg PO DAILY 12/07/18 Terazosin HCl 10 mg PO QHS 12/07/18 Budesonide/Formoterol 160/4.5 2 puff INHALATION BID 12/13/18 [Symbicort 160/4.5 Mcg Inhaler (SP)] Glimepiride [Amaryl] 2 mg PO DAILY 12/13/18 Nystatin Powder [Mycostatin Powder] 1 applic TOPICAL BID 12/13/18 Acetaminophen [Tylenol] 1,000 mg PO Q6H PRN PRN tab 01/03/19 Iron Polysaccharide Complex 150 mg PO DAILYCM #30 cap 01/03/19 [Ferrex 150] Menthol/Lanolin/Calamine/Znox 1 applic TOPICAL BID tube 01/03/19 [Calmoseptine Ointment] Mineral Oil/Petrolatum,White 1 applic TOPICAL 0600,2200 jar 01/03/19 [Eucerin] Pantoprazole Sodium [Protonix] 40 mg PO DAILY #30 tab 01/03/19 Docusate Sodium 100 mg PO DAILY PRN 02/01/19 Past Medical History (Chronic Problems): Chronic Problems (Last Reviewed 12/08/18 @ 03:44 by Garrett Whitley MD) COPD with exacerbation (Chronic) Pickwickian syndrome (Chronic) Iron deficiency anemia (Chronic) etology unknown COPD (chronic obstructive pulmonary disease) (Chronic) Obstructive sleep apnea (Chronic) Super obesity (Chronic) Hypertension (Chronic) Thoracic aortic aneurysm (Chronic) Lymphedema (Chronic) Gout (Chronic) BPH (benign prostatic hyperplasia) (Chronic) Hypomagnesemia (Chronic) Diabetes mellitus (Chronic) CHF exacerbation (Chronic) Chronic respiratory failure with hypoxia and hypercapnia (Chronic) Essential (primary) hypertension (Chronic) Chronic diastolic heart failure (Chronic) Thoracic aortic aneurysm without rupture (Chronic) Status post ascending and proximal arch aneurysm replaced with a Hemashield graft and shayan-arch repair; Hyperlipidemia (Chronic) Lymphedema of leg (Chronic) Surgical History: herniorrhaphy - Large ventral hernia with mesh., - - He has a bioprosthetic aortic valve replacement, abdominal aortic aneurysm repair 2004. Psychiatric History: Anxiety, Depression - *Family History Maternal Family History: Family History (Last Reviewed 12/08/18 @ 03:44 by Garrett Whitley MD) Brother TBI (traumatic brain injury) Sister Ulcerative colitis History Items: Hypertension, - - Patient's father at the age of 94 from old age. Patient's mother at age of 87 with a history of hyperlipidemia and hypertension. Paternal Family History: Family History (Last Reviewed 12/08/18 @ 03:44 by Garrett Whitley MD) Brother TBI (traumatic brain injury) Sister Ulcerative colitis History Items: Hypertension Smoking Status: Former smoker Objective: Vital Signs Temp Pulse Resp BP Pulse Ox 98.6 F 70 22 H 127/60 H 98 03/06/19 13:41 03/06/19 15:33 03/06/19 15:33 03/06/19 15:26 03/06/19 15:33 Oxygen Flow Rate (L/min) 6 Oxygen Delivery Method Nasal Cannula Weight: 341 lb 7.936 oz Body Mass Index (BMI) 51.3 Finger Stick Blood Glucose 171 Intake and Output for Last 24 Hours 03/04/19 03/05/19 03/06/19 23:59 23:59 23:59 Intake Total 850 / 850 2197.5 / 2197.5 Output Total 300 / 300 Balance 850 / 850 1897.5 / 1897.5 General: Awake, Alert, Oriented x 3 HEENT: Atraumatic Oral: Moist Mucosa Neck: Supple Lungs: Clear to auscultation Cardiovascular: Regular Rhythm Abdomen: Soft, Obese Extremities: Bilateral Edema +2 Skin: No Rashes Psych/Mental Status: Appropriate 03/05/19 18:51: WBC 8.8, RBC 3.41 L, Hgb 9.2 L, Hct 31.0 L, MCV 90.9, MCH 27.0, MCHC 29.7 L, Plt Count 335, MPV 8.9, Immature Gran % (Auto) 1.500 H, Neut % (Auto) 71.1 H, Lymph % (Auto) 11.0 L, [place] % (Auto) 13.4 H, Eos % (Auto) 2.1, Baso % (Auto) 0.9, Absolute Neuts (auto) 6.2, Nucleated RBC % 0 03/05/19 18:51: PT 14.9, INR 1.2, APTT 40.5 H 03/05/19 18:51: Sodium 136, Potassium 4.2, Chloride 94 L, Carbon Dioxide 38.0 H, Anion Gap 4 L, BUN 18, Creatinine 1.29, Est GFR (MDRD) Af Amer 70, Est GFR (MDRD) Non-Af 58 L, BUN/Creatinine Ratio 14.0, Glucose 262 H, Calcium 8.8, Total Bilirubin 0.50 03/05/19 18:51: Lactic Acid 2.4 H 03/05/19 18:51: B-Natriuretic Peptide 214.4 H 03/05/19 18:51: Troponin I < 0.015 03/05/19 20:00: Urine Color [place], Urine Clarity Cloudy, Urine pH 8.0, Ur Specific [place] 1.015, Urine Protein 100 H, Urine Glucose (UA) Normal, Urine Ketones 5 H, Urine Occult Blood 250 H, Urine Nitrite Positive H, Urine Bilirubin 1 H, Urine Urobilinogen 4 H, Ur Leukocyte Esterase 500 H, Urine RBC 5-10 SEEN, Urine WBC 25-50 SEEN 03/05/19 21:25: pH 7.41, Bicarbonate Actual 39.5 H, POC Total CO2 41, Base Excess 15 H, O2 Saturation 97, ABG pCO2 62.9 H, ABG pO2 99, Hilario Test POS 03/05/19 23:10: Magnesium 1.6, Troponin I 0.015 03/05/19 23:10: Lactic Acid 1.9 03/06/19 01:46: Troponin I < 0.015 03/06/19 04:46: WBC 8.6, RBC 2.60 L, Hgb 6.9 L, Hct 23.2 L, MCV 89.2, MCH 26.5 L , MCHC 29.7 L, Plt Count 227, MPV 9.8, Immature Gran % (Auto) 0.800, Neut % (Auto) 89.3 H, Lymph % (Auto) 5.3 L, [place] % (Auto) 4.3, Eos % (Auto) 0.1, Baso % (Auto) 0.2, Absolute Neuts (auto) 7.7, Nucleated RBC % 0 03/06/19 04:46: Sodium 137, Potassium 4.6, Chloride 97 L, Carbon Dioxide 34.0 H, Anion Gap 6, BUN 25 H, Creatinine 1.46 H, Est GFR (MDRD) Af Amer 60, Est GFR (MDRD) Non-Af 50 L, BUN/Creatinine Ratio 17.1, Glucose 298 H, Calcium 7.9 L, Troponin I < 0.015, Triglycerides 138, Cholesterol 127, LDL Cholesterol 59, VLDL Cholesterol 28, HDL Cholesterol 40 03/06/19 07:25: pH 7.39, Bicarbonate Actual 35.2 H, POC Total CO2 37, Base Excess 10 H, O2 Saturation 71 L, ABG pCO2 57.6 H, ABG pO2 38 L*, Hilario Test NA 03/06/19 07:45: Hgb 7.4 L, Hct 24.4 L 03/06/19 07:45: Phosphorus 3.4, Magnesium 1.7 Rhythm: EKG: ECHO: Stress Test: Cardiac Cath: PCI: CT Surgery: Holter monitor: EPS: PPM: CXR: Chest CT Scan: Assessment/Plan 1. Diastolic congestive heart failure: Patient's presentation this time appears to be more due to COPD and pneumonia. He seems to be stable from a CHF standpoint at this time. Continue current medications at this time. 2. Atrial fibrillation: Patient has new onset atrial fibrillation. Currently he is in sinus rhythm with PACs. We will discuss anticoagulation with him prior to discharge.
[2019-03-06 17:11] LABS: Bedside Glucose 290 mg/dL (70-110)
[2019-03-06 19:53] LABS: Hematocrit 26.4 % (40-54); Hemoglobin 8.3 g/dL (13.0-16.5)
[2019-03-06] MEDS: Atorvastatin Calcium 40 MG Tablet PO (23:00)
[2019-03-06 23:31] LABS: Bedside Glucose 299 mg/dL (70-110)
[2019-03-07] VITALS (20 sets, daily range): BP systolic 127–149; BP diastolic 57–76; PULSE 59–93; RESP 12–33; TEMP 36.7–36.9; O2SAT 95–97
[2019-03-07] MEDS: Ipratropium/Albuterol Sulfate 3 ML AMPUL.NEB INHALATION ×6 (03:46→23:36)
[2019-03-07 06:42] LABS: Hematocrit 26.9 % (40-54); Hemoglobin 8.3 g/dL (13.0-16.5); Mean Corp Hgb Conc 30.9 g/dL (32-36); Mean Corpuscular Hgb 26.9 pg (27.0-32.0); Mean Corpuscular Volume 87.3 fL (80-94); Mean Platelet Vol. 9.7 fl (6.2-12.0); Platelet Count 239 K/mm3 (150-450); RBC Distribution Width CV 14.6 % (11.6-14.6); RBC Distribution Width SD 46.5 fl (35.1-43.9); Red Blood Count 3.08 M/mm3 (4.6-6.2); White Blood Count 8.9 K/mm3 (4.4-11.0)
[2019-03-07] MEDS: Insulin Lispro 100 UNIT/ML INSULN.PEN SC ×4 (06:48→21:10)
[2019-03-07 07:03] LABS: Anion Gap 6 (5-15); BUN 40 mg/dL (7-18); BUN/Creat Ratio 23.7 RATIO (10-20); Calcium,Total 7.9 mg/dL (8.5-10.1); Chloride 96 mmol/L (98-107); Creatinine, Serum 1.69 mg/dL (0.70-1.30); EST Glomerular Filtration Rate 42 mL/min (>60); Est Glom Filt Rate - Afr Amer 51 mL/min (>60); Estimated Creatinine Clearance 35.98 ml/min; Glucose 262 mg/dL (74-106); Phosphorus 3.5 mg/dL (2.5-4.9); Potassium 4.7 mmol/L (3.5-5.1); Sodium Level 134 mmol/L (136-145)
[2019-03-07 07:16] LABS: Bedside Glucose 248 mg/dL (70-110)
[2019-03-07] MEDS: Allopurinol 300 MG Tablet PO (07:50)
[2019-03-07] MEDS: guaiFENesin 1,200 MG Tablet 1200 MG PO ×2 (07:50→21:08)
[2019-03-07] MEDS: Spironolactone 25 MG Tablet PO (07:50)
[2019-03-07] MEDS: Metolazone 2.5 MG Tablet PO (07:51)
[2019-03-07] MEDS: Pantoprazole Sodium 40 MG Tablet PO (07:51)
[2019-03-07] MEDS: Magnesium Oxide 400 MG Tablet PO (07:51)
[2019-03-07] MEDS: Finasteride 5 MG Tablet PO (07:51)
[2019-03-07] MEDS: Metoprolol Tartrate 50 MG Tablet PO ×2 (07:51→21:06)
[2019-03-07] MEDS: Sertraline 100 MG Tablet PO (07:51)
[2019-03-07] MEDS: Clopidogrel Bisulfate 75 MG Tablet PO (07:51)
[2019-03-07] MEDS: dilTIAZem CD 240 MG Capsule PO (07:51)
[2019-03-07] MEDS: Iron Polysaccharide Complex 150 MG CAPSULE PO (07:51)
[2019-03-07] MEDS: Menthol/Lanolin/Calamine/Znox 113 GM Tube 1 APPLIC TOPICAL ×2 (07:52→21:07)
[2019-03-07] MEDS: Mupirocin Ointment 22gm Tube 1 APPLIC TOPICAL (07:52)
[2019-03-07] MEDS: Nystatin Powder 15gm Bottle 1 APPLIC TOPICAL ×2 (07:53→21:10)
[2019-03-07] MEDS: 0.9% Normal Saline 1,000 ML 75 ML IV (08:04)
--- NOTE | 2019-03-07 08:16 | CON.PCM_ITS ---
Problem List (1) Iron deficiency anemia Status: Chronic Qualifiers: Iron deficiency anemia type: unspecified iron deficiency Qualified Code(s): D50.9 - Iron deficiency anemia, unspecified Comment: etology unknown Reason for Consult Date of Consultation: 03/07/19 History of Present Illness: The patient is a 74 year old M who presents with anemia. Patient also has a UTI and COPD exacerbation with pneumonia. Patient denies any abdominal pain. He has no gross blood in his stool. No nausea or vomiting. Patient is on Plavix and aspirin at home. Past Medical History Past Medical History (Chronic Problems): Chronic Problems (Last Reviewed 12/08/18 @ 03:44 by Garrett Whitley MD) COPD with exacerbation (Chronic) Pickwickian syndrome (Chronic) Iron deficiency anemia (Chronic) etology unknown COPD (chronic obstructive pulmonary disease) (Chronic) Obstructive sleep apnea (Chronic) Super obesity (Chronic) Hypertension (Chronic) Thoracic aortic aneurysm (Chronic) Lymphedema (Chronic) Gout (Chronic) BPH (benign prostatic hyperplasia) (Chronic) Hypomagnesemia (Chronic) Diabetes mellitus (Chronic) CHF exacerbation (Chronic) Chronic respiratory failure with hypoxia and hypercapnia (Chronic) Essential (primary) hypertension (Chronic) Chronic diastolic heart failure (Chronic) Thoracic aortic aneurysm without rupture (Chronic) Status post ascending and proximal arch aneurysm replaced with a Hemashield graft and shayan-arch repair; Hyperlipidemia (Chronic) Lymphedema of leg (Chronic) Medical History: Medical History (Last Reviewed 12/08/18 @ 03:44 by Garrett Whitley MD) Chronic respiratory failure with hypoxia and hypercapnia (Chronic) J96.11, J96.12 Essential (primary) hypertension (Chronic) I10 Chronic diastolic heart failure (Chronic) I50.32 Thoracic aortic aneurysm without rupture (Chronic) I71.2 Status post ascending and proximal arch aneurysm replaced with a Hemashield graft and shayan-arch repair; Hyperlipidemia (Chronic) E78.5 Lymphedema of leg (Chronic) I89.0 BPH w/o urinary obs/LUTS N40.0 COPD (chronic obstructive pulmonary disease) J44.9 Chronic anemia D64.9 Chronic kidney disease, stage 2 (mild) N18.2 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 GERD (gastroesophageal reflux disease) K21.9 History of pulmonary embolism Z86.711 Iron deficiency anemia D50.9 Lymphedema I89.0 Morbid obesity E66.01 Obstructive sleep apnea G47.33 Osteoarthritis M19.90 Tinea unguium B35.1 Ulcer of left lower extremity with fat layer exposed L97.922 Ulcer of right lower extremity with fat layer exposed L97.912 Venous insufficiency I87.2 Ventral hernia K43.9 Acute on chronic respiratory failure with hypoxia and hypercapnia (Resolved) J96.21, J96.22 Acute on chronic respiratory failure with hypoxia and hypercapnia J96.21, J96.22 Adynamic ileus K56.0 CAP (community acquired pneumonia) (Resolved) J18.9 The patient appropriately completed antibiotics and prednisone as prescribed. He has no further signs and symptoms of persistent pneumonia. No indication for any further testing at this time. Patient will be eligible for Pneumovax 23 in approximately 6 months. He states that his PCP is very good at keeping track of his immunizations and when they are due. CHF exacerbation (Resolved) I50.9 Hypoglycemia (Resolved) E16.2 Pulmonary embolism on right (Resolved) I26.99 Tobacco abuse (Resolved) Z72.0 Wheezing (Resolved) R06.2 Edema of both legs (Inactive) R60.0 Immobility (Inactive) Z74.09 Leg swelling (Inactive) M79.89 Multiple excoriations (Inactive) T14.8 Nausea and vomiting (Inactive) R11.2 Tinea unguium (Inactive) B35.1 Allergies naphazoline HCl [From Naphcon] Allergy (Severe, Verified 03/05/19 18:48) affected his breathing AFFECTED HIS BREATHING amlodipine besylate [From Norvasc] Allergy (Verified 03/05/19 18:48) Other dextromethorphan Allergy (Verified 03/05/19 18:48) Other levofloxacin [From Levaquin] Adverse Reaction (Mild, Verified 03/05/19 18:48) made me hyperactive made me hyperactive Home Medications: Ambulatory Orders Medication Instructions Recorded Allopurinol [Zyloprim] 300 mg PO DAILY 06/15/18 Clopidogrel Bisulfate [Plavix] 75 mg PO DAILY 06/15/18 Finasteride [Proscar] 5 mg PO DAILY 06/15/18 Magnesium 250 mg PO BID 06/15/18 Metolazone [Zaroxolyn] 2.5 mg PO DAILY 06/15/18 Metoprolol Tartrate [Lopressor 50 mg PO BID 06/15/18 (beta maryam)] Sertraline HCl [Zoloft] 100 mg PO DAILY 06/15/18 Spironolactone [Aldactone] 25 mg PO BID 06/15/18 Atorvastatin Calcium 40 mg PO QHS 12/07/18 Losartan Potassium 100 mg PO DAILY 12/07/18 Terazosin HCl 10 mg PO QHS 12/07/18 Budesonide/Formoterol 160/4.5 2 puff INHALATION BID 12/13/18 [Symbicort 160/4.5 Mcg Inhaler (SP)] Glimepiride [Amaryl] 2 mg PO DAILY 12/13/18 Nystatin Powder [Mycostatin Powder] 1 applic TOPICAL BID 12/13/18 Acetaminophen [Tylenol] 1,000 mg PO Q6H PRN PRN tab 01/03/19 Iron Polysaccharide Complex 150 mg PO DAILYCM #30 cap 01/03/19 [Ferrex 150] Menthol/Lanolin/Calamine/Znox 1 applic TOPICAL BID tube 01/03/19 [Calmoseptine Ointment] Mineral Oil/Petrolatum,White 1 applic TOPICAL 0600,2200 jar 01/03/19 [Eucerin] Pantoprazole Sodium [Protonix] 40 mg PO DAILY #30 tab 01/03/19 Docusate Sodium 100 mg PO DAILY PRN 02/01/19 Surgical History: Surgical History (Last Reviewed 12/08/18 @ 03:44 by Garrett Whitley MD) History of repair of thoracic aortic aneurysm (Resolved) Onset Date: 12/11/09 Z98.890, Z86.79 H/O aortic valve replacement (Resolved) Onset Date: 12/11/09 Z95.2 # 29 Freestyle valve H/O hernia repair Z98.890, Z87.19 Surgical History: herniorrhaphy - Large ventral hernia with mesh., - - He has a bioprosthetic aortic valve replacement, abdominal aortic aneurysm repair 2004. Psychiatric History: Anxiety, Depression Smoking Status: Former smoker - *Family History Maternal Family History: Family History (Last Reviewed 12/08/18 @ 03:44 by Garrett Whitley MD) Brother TBI (traumatic brain injury) Sister Ulcerative colitis History Items: Hypertension, - - Patient's father at the age of 94 from old age. Patient's mother at age of 87 with a history of hyperlipidemia and hypertension. Paternal Family History: Family History (Last Reviewed 12/08/18 @ 03:44 by Garrett Whitley MD) Brother TBI (traumatic brain injury) Sister Ulcerative colitis History Items: Hypertension Review of Systems Constitutional: Denies: Anorexia, Chills, Fever Cardiovascular: Denies: Chest Pain Respiratory: Reports: Cough, Shortness of Breath. Denies: Hemoptysis Gastrointestinal: Denies: Abdominal Pain, Hematemesis, Hematochezia, Nausea, Melena, Vomiting Neurological: Denies: Balance problems - Physical Exam General: Alert, Oriented x3 Neck: No JVD Lungs: Rhonchi Abdomen: Soft, Non Tender, Non-Distended Neurological: Cranial nerves II-XII grossly intact Psych/Mental Status: Normal Affect Vital Signs Temp Pulse Resp BP Pulse Ox 98.3 F 76 20 H 127/67 H 97 03/07/19 05:02 03/07/19 07:51 03/07/19 06:48 03/07/19 05:02 03/07/19 06:48 Oxygen Flow Rate (L/min) 4 Oxygen Delivery Method Nasal Cannula Weight: 344 lb 5.793 oz Body Mass Index (BMI) 51.3 Finger Stick Blood Glucose 171 Intake and Output for Last 24 Hours 03/05/19 03/06/19 03/07/19 23:59 23:59 23:59 Intake Total 850 / 850 2517.5 / 2517.5 1005 / 1005 Output Total 900 / 900 250 / 250 Balance 850 / 850 1617.5 / 1617.5 755 / 755 Microbiology Past 72 Hours 03/05/19 23:50 Gram Stain - Final Sputum, Expectorated/Coughed 03/05/19 20:00 Urine Culture - Preliminary Urine Catheter - Andrews Gram negative yordy 03/06/19 11:40 Stool Occult Blood (ESTEFANIA) - Final Stool Occult Blood Positive 03/05/19 23:30 Respiratory Panel (PCR) - Final Interface Orders 03/05/19 20:00 Streptococcus pneumoniae Antigen (M - Final Interface Orders Streptococcus pneumonia Ag 03/05/19 20:00 Legionella Antigen - Final Interface Orders Laboratory Tests Past 24 Hrs 03/06/19 03/06/19 03/07/19 07:45 19:37 06:20 WBC 8.9 RBC 3.08 L Hgb 8.3 L 8.3 L Hct 26.4 L 26.9 L MCV 87.3 MCH 26.9 L MCHC 30.9 L RDW Std Deviation 46.5 H RDW Coeff of El 14.6 Plt Count 239 MPV 9.7 Sodium Potassium Chloride Carbon Dioxide Anion Gap BUN Creatinine Estim Creat Clear Calc Est GFR (MDRD) Af Amer Est GFR (MDRD) Non-Af BUN/Creatinine Ratio Glucose Calcium Phosphorus Magnesium Blood Type A POSITIVE Antibody Screen NEGATIVE Crossmatch See Detail 03/07/19 06:20 WBC RBC Hgb Hct MCV MCH MCHC RDW Std Deviation RDW Coeff of El Plt Count MPV Sodium 134 L Potassium 4.7 Chloride 96 L Carbon Dioxide 32.0 Anion Gap 6 BUN 40 H Creatinine 1.69 H Estim Creat Clear Calc 35.98 Est GFR (MDRD) Af Amer 51 L Est GFR (MDRD) Non-Af 42 L BUN/Creatinine Ratio 23.7 H Glucose 262 H Calcium 7.9 L Phosphorus 3.5 Magnesium 2.0 Blood Type Antibody Screen Crossmatch POC Glucose 03/07/19 03/06/19 03/06/19 06:44 22:51 17:00 POC Glucose 248 H 299 H 290 H 03/06/19 11:48 POC Glucose 300 H Assessment/Plan All Active Problems (Last Reviewed 12/08/18 @ 03:44 by Garrett Whitley MD) New onset a-fib (Acute) Debility (Acute) Acute on chronic diastolic heart failure (Acute) History of repair of thoracic aortic aneurysm (Resolved 12/11/09) H/O aortic valve replacement (Resolved 12/11/09) Acute on chronic respiratory failure with hypoxia and hypercapnia (Resolved) Bilateral lower leg cellulitis (Resolved) CAP (community acquired pneumonia) (Resolved) CHF exacerbation (Resolved) Hyperkalemia (Resolved) Hypoglycemia (Resolved) Hypoglycemia (Resolved) Hypomagnesemia (Resolved) Hyponatremia (Resolved) Pulmonary embolism on right (Resolved) Shortness of breath (Resolved) Tobacco abuse (Resolved) Wheezing (Resolved) 74-year-old male with anemia 1. Patient had a positive fecal occult blood test. He is also anemic with a hemoglobin of 6.9 upon admission. He notes no gross blood in stool or abdominal pain. He just had a colonoscopy in 2019. He had several tubular adenomas. 2. At this time I do not believe that he needs another colonoscopy. I will perform an EGD tomorrow once his respiratory status is more stable. I think at this time with a short of breath he is in with his pneumonia he would become hypoxic with conscious sedation. 3. I explained endoscopy in detail to the patient. I explained the risks including but not limited to stroke or heart attack with anesthesia, perforation of the GI tract, bleeding, infection. I explained that any of these could necessitate further emergency surgery. The patient understands and all questions were answered sufficiently. The patient wishes to proceed with procedure. Sly Rubio MD Pager: [facility] [address] [place] [address] [address] [place] [address] Office:
[2019-03-07 08:56] LABS: Ferritin 401 ng/mL (26-388); Iron 40 ug/dL (65-175); Iron Binding Capacity,Total 171 ug/dL (250-450); PERCENT IRON SATURATION 23.4 % (15.0-55.0)
[2019-03-07] MEDS: Ceftriaxone 1 GM/50 ML BAG IV (09:27)
--- NOTE | 2019-03-07 10:43 | NURSING ---
wound photo: left lower leg
--- NOTE | 2019-03-07 10:43 | NURSING ---
wound photo: right lower leg
--- NOTE | 2019-03-07 10:57 | CASEMGMT ---
Completed Living will and Health Care Power of Ammonium Nitrate Crystallizer located in pt echart. Documents printed and placed on pt chart. BAKARI Qureshi
--- NOTE | 2019-03-07 11:02 | CASEMGMT ---
This RN CM to room to complete CM assessment and pt is sleeping with bipap on at this time. CM will attempt again later. SStaten RN CM
[2019-03-07 11:20] LABS: Bedside Glucose 293 mg/dL (70-110)
[2019-03-07] MEDS: 0.9% NaCl Peripheral Flush Adult/Peds IV ×2 (13:03→21:08)
--- NOTE | 2019-03-07 14:33 | PCM.PN.PUL ---
Subjective: Patient did okay overnight. Patient did wear BiPAP and family at the bedside reports he is much more awake compared to at home. Patient readily admits that he does not comply with CPAP therapy at home. Patient has been using his supplemental oxygen, but states it can go as high as 5 L/min at home. Patient does not routinely check his saturations per the family. Patient does report a moist cough, but minimal production. - Physical Exam General: Alert, Oriented x3, Cooperative, No apparent distress HEENT: Atraumatic, PERRLA, EOMI, Normocephalic, - - No scleral icterus or injection noted. Glasses not in place. Oral: Moist Mucosa, No Gingival or Mucosal Lesions/ Ulcerations Neck: Supple, No JVD, No Nodes, Trachea Midline Lungs: No wheeze, No rales, Diminished, Rhonchi, - - Symmetric expansion. No dullness to percussion. Cardiovascular: Normal S1, Normal S2, No murmurs, Irregular Rate, No rub noted, No Gallop Abdomen: Bowel Sounds Present, Soft, Non Tender, Non-Distended, Obese Extremities: No cyanosis, Capillary Refill Less than 3 Seconds, Edema Skin: No rashes, No breakdown, - - Venous stasis changes of lower extremities Musculoskeletal: No Tenderness to Palpation of Joints or Extremities Lymphatic: No Cervical, Supraclavicular, or Inguinal Adenopathy Neurological: Cranial nerves II-XII grossly intact, Neuro grossly intact, Motor Exam 5/5 strength throughout Psych/Mental Status: Alert and oriented to time, place, person, mood and affect Vital Signs Temp Pulse Resp BP Pulse Ox 36.8 C 59 L 20 H 135/57 H 97 03/07/19 09:31 03/07/19 10:58 03/07/19 10:39 03/07/19 09:31 03/07/19 09:31 Oxygen Flow Rate (L/min) 4 Oxygen Delivery Method Bi-pap Weight: 156.2 kg Body Mass Index (BMI) 51.3 Finger Stick Blood Glucose 171 Intake and Output for Last 24 Hours 03/05/19 03/06/19 03/07/19 23:59 23:59 23:59 Intake Total 850 / 850 2517.5 / 2517.5 1732.50 / 1732.50 Output Total 900 / 900 450 / 450 Balance 850 / 850 1617.5 / 1617.5 1282.50 / 1282.50 Microbiology Past 72 Hours 03/05/19 23:50 Gram Stain - Final Sputum, Expectorated/Coughed Respiratory Culture - Preliminary Alpha Hemolytic Streptococcus 03/05/19 20:00 Urine Culture - Final Urine Catheter - Andrewsmilana goldenola 03/06/19 11:40 Stool Occult Blood (ESTEFANIA) - Final Stool Occult Blood Positive 03/05/19 23:30 Respiratory Panel (PCR) - Final Interface Orders 03/05/19 20:00 Streptococcus pneumoniae Antigen (M - Final Interface Orders Streptococcus pneumonia Ag 03/05/19 20:00 Legionella Antigen - Final Interface Orders Laboratory Tests Past 24 Hrs 03/06/19 03/06/19 03/07/19 07:45 19:37 06:20 WBC 8.9 RBC 3.08 L Hgb 8.3 L 8.3 L Hct 26.4 L 26.9 L MCV 87.3 MCH 26.9 L MCHC 30.9 L RDW Std Deviation 46.5 H RDW Coeff of El 14.6 Plt Count 239 MPV 9.7 Sodium Potassium Chloride Carbon Dioxide Anion Gap BUN Creatinine Estim Creat Clear Calc Est GFR (MDRD) Af Amer Est GFR (MDRD) Non-Af BUN/Creatinine Ratio Glucose Calcium Phosphorus Magnesium Iron TIBC Iron Saturation Ferritin Crossmatch See Detail 03/07/19 03/07/19 06:20 06:20 WBC RBC Hgb Hct MCV MCH MCHC RDW Std Deviation RDW Coeff of El Plt Count MPV Sodium 134 L Potassium 4.7 Chloride 96 L Carbon Dioxide 32.0 Anion Gap 6 BUN 40 H Creatinine 1.69 H Estim Creat Clear Calc 35.98 Est GFR (MDRD) Af Amer 51 L Est GFR (MDRD) Non-Af 42 L BUN/Creatinine Ratio 23.7 H Glucose 262 H Calcium 7.9 L Phosphorus 3.5 Magnesium 2.0 Iron 40 L TIBC 171 L Iron Saturation 23.4 Ferritin 401 H Crossmatch POC Glucose 03/07/19 03/07/19 03/06/19 11:11 06:44 22:51 POC Glucose 293 H 248 H 299 H 03/06/19 17:00 POC Glucose 290 H Medical Necessity - Tobacco Use Smoking Status: Former smoker Assessment/Plan All Active Problems (Last Reviewed 12/08/18 @ 03:44 by Garrett Whitley MD) New onset a-fib (Acute) Debility (Acute) Acute on chronic diastolic heart failure (Acute) History of repair of thoracic aortic aneurysm (Resolved 12/11/09) H/O aortic valve replacement (Resolved 12/11/09) Acute on chronic respiratory failure with hypoxia and hypercapnia (Resolved) Bilateral lower leg cellulitis (Resolved) CAP (community acquired pneumonia) (Resolved) CHF exacerbation (Resolved) Hyperkalemia (Resolved) Hypoglycemia (Resolved) Hypoglycemia (Resolved) Hypomagnesemia (Resolved) Hyponatremia (Resolved) Pulmonary embolism on right (Resolved) Shortness of breath (Resolved) Tobacco abuse (Resolved) Wheezing (Resolved) RECOMMENDATIONS: 1. Continue BiPAP therapy as tolerated. Wean oxygen as tolerated. 2. Continue bronchodilators and IV steroids. 3. Discontinue order for IV morphine. 4. Continue ceftriaxone as ordered. 5. Transfuse blood products if repeat hemoglobin is less than 7 g/dL. 6. Close outpatient pulmonary follow-up after discharge is recommended. IMPRESSIONS: 1. Acute on chronic combined respiratory failure, likely secondary to COPD exacerbation due to pneumococcal pneumonia The patient has a baseline supplemental oxygen requirement of 3 to 4 L along with underlying obstructive lung disease, for which he has been prescribed a triple therapy inhaler regimen in the past. The patient has essentially been noncompliant with outpatient pulmonary follow-up. Patient does have a pneumococcal pneumonia and is on appropriate antibiotics at this time. Did stress the need for BiPAP with any sleep to avoid hypoxemic complications. We will keep patient on current steroid therapy for now. Likely transition to prednisone tomorrow. 2. Anemia The patient did have a colonoscopy performed in November 2018 which revealed internal and external hemorrhoids along with transverse colon polyps. While the patient did receive supplemental IV fluids on presentation, his hemoglobin this morning was noted to be 6.9 g/dL. A repeat H&H is currently pending. If the patient's hemoglobin is truly less than 7 g/dL, I would recommend transfusing packed red blood cells. Continue PPI therapy. Surgery is suggesting an EGD. Patient recently had a colonoscopy. 3. Chronic heart failure with preserved ejection fraction/status post aortic valve replacement/atrial fibrillation Diuretics currently on hold, given underlying renal insufficiency. Cardiology consultation is suggestive of underlying pneumonia as the primary process. Would defer diuretic recommendations to cardiology. 4. Known history of obstructive sleep apnea The patient has a known history of obstructive sleep apnea, for which he is prescribed outpatient BiPAP therapy. However, despite the patient's insistence that he utilizes his BiPAP, prior office visits during which time his compliance report was reviewed, clearly indicated that the patient was not utilizing his nocturnal Pap therapy as prescribed. This was confirmed by the family during my evaluation. Patient appears to have responded well to BiPAP overnight. Continue with any sleep. 5. Morbid obesity/history of medical noncompliance/hypertension/hyperlipidemia/diabetes mellitus/GERD Complicates care, management, recovery and prognosis. Continue home medications as indicated. Recommend physical therapy evaluation. Code Visit Inpatient E&M: 25762 Subs Hosp L3
--- NOTE | 2019-03-07 14:51 | CASEMGMT ---
SW spoke with patient and his per their request. Patient's said she cannot take patient home in this condition. SW agreed with her and explained that he was an assist of 3-4 people today with therapy. SW asked what facilities he would be willing to go to. He said he is going home. SW asked him how he was going to manage at home when it takes 3-4 people to help him here at [facility]. At first he said he would manage, but then he agreed to go to [facility] [place]. BISI told them SW will work on making a referral. SW called [facility] they have beds available and their weight limit is 350lbs. SW faxed referral to [facility]. Brooke REYES MSW
--- NOTE | 2019-03-07 15:36 | CASEMGMT ---
BISI let patient's know that SW made a referral to [facility]. BISI explained waiting on a return call to see if they can accept him. She then asked about [facility]. BISI told her they are usually full, but SW can check. BISI called [facility] and no one in admissions was available today. BISI left a message for Kalie in admissions inquiring if they have any male beds available and about their weight limit. Brooke REYES MSW
[2019-03-07 15:41] LABS: Bedside Glucose 343 mg/dL (70-110)
--- NOTE | 2019-03-07 16:05 | PCM.PN.HOSP ---
Subjective: Breathing better, particularly with the BiPAP. Vitals/I&O's: Vital Signs Temp Pulse Resp BP Pulse Ox 36.7 C 66 22 H 134/76 H 97 03/07/19 15:25 03/07/19 15:25 03/07/19 15:25 03/07/19 15:25 03/07/19 15:25 Oxygen Flow Rate (L/min) 4 Oxygen Delivery Method Bi-pap Weight: 156.2 kg Body Mass Index (BMI) 51.3 Finger Stick Blood Glucose 171 Intake and Output for Last 24 Hours 03/05/19 03/06/19 03/07/19 23:59 23:59 23:59 Intake Total 850 / 850 2517.5 / 2517.5 1732.50 / 1732.50 Output Total 900 / 900 450 / 450 Balance 850 / 850 1617.5 / 1617.5 1282.50 / 1282.50 General: Alert, No apparent distress HEENT: Atraumatic, Normocephalic Oral: Moist Mucosa, No Gingival or Mucosal Lesions/ Ulcerations Neck: No Nodes, Thyroid Normal Size and Texture Lungs: Normal air movement, - - coarse breath sounds bilaterally. Cardiovascular: Regular rate, Regular Rhythm, Normal S1, Normal S2, No murmurs Abdomen: Bowel Sounds Present, Soft, Non Tender, Non-Distended, No Hepato-splenomegaly, Obese Extremities: No Calf Tenderness Skin: No rashes, No breakdown Musculoskeletal: No Tenderness to Palpation of Joints or Extremities, No Muscle Wasting Neurological: Sensory exam intact to light touch and pain, - - no clonus Psych/Mental Status: Normal Affect, Appropriate Microbiology Past 72 Hours 03/05/19 23:50 Sputum, Expectorated/Coughed Gram Stain - Final 03/05/19 23:50 Sputum, Expectorated/Coughed Respiratory Culture - Preliminary Alpha Hemolytic Streptococcus 03/05/19 20:00 Urine Catheter - Andrews Urine Culture - Final Serratia fonticola 03/06/19 11:40 Stool Stool Occult Blood (ESTEFANIA) - Final Occult Blood Positive 03/05/19 23:30 Interface Orders Respiratory Panel (PCR) - Final 03/05/19 20:00 Interface Orders Streptococcus pneumoniae Antigen (M - Final Streptococcus pneumonia Ag 03/05/19 20:00 Interface Orders Legionella Antigen - Final Laboratory Results 03/06/19 07:45: Crossmatch See Detail 03/06/19 17:00: POC Glucose 290 H 03/06/19 19:37: Hgb 8.3 L, Hct 26.4 L 03/06/19 22:51: POC Glucose 299 H 03/07/19 06:20: WBC 8.9, RBC 3.08 L, Hgb 8.3 L, Hct 26.9 L, MCV 87.3, MCH 26.9 L, MCHC 30.9 L, RDW Std Deviation 46.5 H, RDW Coeff of El 14.6, Plt Count 239, MPV 9.7 03/07/19 06:20: Sodium 134 L, Potassium 4.7, Chloride 96 L, Carbon Dioxide 32.0, Anion Gap 6, BUN 40 H, Creatinine 1.69 H, Estim Creat Clear Calc 35.98, Est GFR (MDRD) Af Amer 51 L, Est GFR (MDRD) Non-Af 42 L, BUN/Creatinine Ratio 23.7 H, Glucose 262 H, Calcium 7.9 L, Phosphorus 3.5, Magnesium 2.0 03/07/19 06:20: Iron 40 L, TIBC 171 L, Iron Saturation 23.4, Ferritin 401 H 03/07/19 06:44: POC Glucose 248 H 03/07/19 11:11: POC Glucose 293 H 03/07/19 15:36: POC Glucose 343 H Current Medications Acetaminophen (Tylenol) 1,000 mg PO Q6H PRN PRN PRN Reason: Pain Score 1-3/10 Albuterol Sulfate (Ventolin Aerosols) 2.5 mg INHALATION Q2H PRN PRN PRN Reason: SHORTNESS OF BREATH Albuterol/Ipratropium (Duoneb) 3 ml INHALATION Q4H.RT [facility] Last Admin: 03/07/19 14:40 Dose: 3 ml Documented by: Allopurinol (Zyloprim) 300 mg PO DAILY [facility] Last Admin: 03/07/19 07:50 Dose: 300 mg Documented by: Atorvastatin Calcium (Lipitor) 40 mg PO QHS [facility] Last Admin: 03/06/19 23:00 Dose: 40 mg Documented by: Calamine/Phenol (Calmoseptine Ointment) 1 applic TOPICAL BID [facility]; Protocol Last Admin: 03/07/19 07:52 Dose: 1 applicatio Documented by: Clopidogrel Bisulfate (Plavix) 75 mg PO DAILY [facility] Last Admin: 03/07/19 07:51 Dose: 75 mg Documented by: Dextrose (D50w Syringe) 0 gm IV X1 PRN; Protocol PRN Reason: Hypoglycemia Diltiazem HCl (Cardizem Cd) 240 mg PO DAILY [facility] Last Admin: 03/07/19 07:51 Dose: 240 mg Documented by: Doxazosin Mesylate (Cardura) 8 mg PO QHS [facility] Last Admin: 03/06/19 22:57 Dose: 8 mg Documented by: Finasteride (Proscar) 5 mg PO DAILY [facility] Last Admin: 03/07/19 07:51 Dose: 5 mg Documented by: Glucagon () 1 mg IM .X1 PRN PRN Reason: Hypoglycemia Guaifenesin (Mucinex) 1,200 mg PO BID [facility] Last Admin: 03/07/19 07:50 Dose: 1,200 mg Documented by: Ceftriaxone Sodium (Rocephin) 1 gm in 50 mls @ 100 mls/hr IV Q24 [facility] Last Infusion: 03/07/19 10:01 Dose: Infused Documented by: Insulin Glargine (Lantus (Bkc)) 10 units SC BREAKFAST [facility] Last Admin: 03/07/19 07:51 Dose: 10 u Documented by: Insulin Glargine (Lantus (Bkc)) 10 units SC QHS [facility] Last Admin: 03/06/19 22:58 Dose: 10 u Documented by: Insulin Human Lispro (Humalog Kwikpen (Bkc)) 0 unit SC ACHS [facility]; Protocol Last Admin: 03/07/19 15:37 Dose: 8 units Documented by: Magnesium Oxide (Mag-Ox 400) 400 mg PO DAILY [facility] Last Admin: 03/07/19 07:51 Dose: 400 mg Documented by: Methylprednisolone (Solu-Medrol) 40 mg IV Q8 [facility] Last Admin: 03/07/19 13:03 Dose: 40 mg Documented by: Metolazone (Zaroxolyn) 2.5 mg PO DAILY [facility] Last Admin: 03/07/19 07:51 Dose: 2.5 mg Documented by: Metoprolol Tartrate (Lopressor (Beta Kristel)) 50 mg PO BID [facility] Last Admin: 03/07/19 07:51 Dose: 50 mg Documented by: Multi-Ingredient Cream (Eucerin) 1 applic TOPICAL 0600,2200 [facility]; Protocol Last Admin: 03/07/19 05:29 Dose: 1 applicatio Documented by: Nitroglycerin (Nitrostat) 0.4 mg SUBLINGUAL Q5M PRN PRN Reason: CARDIAC/CHEST PAIN Nystatin (Mycostatin Powder) 1 applic TOPICAL BID [facility]; Protocol Last Admin: 03/07/19 07:53 Dose: 1 applicatio Documented by: Pantoprazole Sodium (Protonix) 40 mg PO DAILY [facility] Last Admin: 03/07/19 07:51 Dose: 40 mg Documented by: Polysaccharide [facility] ([facility]rex 150) [facility] Last Admin: 03/07/19 07:51 Dose: 150 mg Documented by: Prochlorperazine Edisylate (Compazine Iv) 5 mg IV Q4H PRN PRN PRN Reason: Breakthrough Nausea/Vomiting Sertraline HCl (Zoloft) 100 mg PO DAILY [facility] Last Admin: 03/07/19 07:51 Dose: 100 mg Documented by: Sodium Chloride () 5 - 15 ml IV UD PRN PRN Reason: SALINE FLUSH Last Admin: 03/07/19 13:03 Dose: 10 ml Documented by: Spironolactone (Aldactone) 25 mg PO DAILY [facility] Last Admin: 03/07/19 07:50 Dose: 25 mg Documented by: STROKE Vital Signs/Narrative: Vital Signs Temp Pulse Resp BP Pulse Ox 03/07/19 15:25 36.7 C 66 22 H 134/76 H 97 03/07/19 14:57 65 Medical Necessity - Tobacco Use Smoking Status: Former smoker Assessment/Plan All Active Problems (Last Reviewed 12/08/18 @ 03:44 by Garrett Whitley MD) New onset a-fib (Acute) Debility (Acute) Acute on chronic diastolic heart failure (Acute) History of repair of thoracic aortic aneurysm (Resolved 12/11/09) H/O aortic valve replacement (Resolved 12/11/09) Acute on chronic respiratory failure with hypoxia and hypercapnia (Resolved) Bilateral lower leg cellulitis (Resolved) CAP (community acquired pneumonia) (Resolved) CHF exacerbation (Resolved) Hyperkalemia (Resolved) Hypoglycemia (Resolved) Hypoglycemia (Resolved) Hypomagnesemia (Resolved) Hyponatremia (Resolved) Pulmonary embolism on right (Resolved) Shortness of breath (Resolved) Tobacco abuse (Resolved) Wheezing (Resolved) 1. acute hypoxic and hypercapnic respiratory failure. multifactorial: 2/2 AECOPD, Pneumococcal pneumonia, MIKO CCM following wean BiPAP and oxygen as tolerated follow up w pulm as outpt 2. AECOPD IV methylpred BDs 3. Pneumococcal pneumonia + urinary antigen and Cx positive for alpha hemolytic strep continue CTX pulm toilet 4. Anemia chronic transfused 2 units PRBCs during this admission heme positive stools had colonoscopy on 12/12, which showed hemorroids at that time had EGD on 07/28/[address] which [address] Rubio, advised holding off on any endoscopy at this time. Particularlly since he had relatively normal endoscopy relatively recently, but also he ought be in better physical condition Iron has been low, but ferritin high, therefor, not iron-deficient. complicated by clopidogrel, and it is unclear why he is on it, change to ASA 5. pAfib controlled on metoprolol and dilt given then anemia and heme positive stools, hold off on oral anticoagulants for now. 6. VTE prophylaxis: SCDs Code Visit Inpatient E&M: 69644 Subs Hosp L3
[2019-03-07] MEDS: Doxazosin 4 MG Tablet 8 MG PO (21:06)
[2019-03-07] MEDS: Atorvastatin Calcium 40 MG Tablet PO (21:08)
[2019-03-07 21:41] LABS: Bedside Glucose 404 mg/dL (70-110)
--- NOTE | 2019-03-07 23:36 | CPS ---
added heated humidity to BIPAP
[2019-03-08] VITALS (22 sets, daily range): BP systolic 131–153; BP diastolic 61–89; PULSE 56–87; RESP 12–32; TEMP 36.3–36.8; O2SAT 84–99; BMI 52.3
[2019-03-08] MEDS: Ipratropium/Albuterol Sulfate 3 ML AMPUL.NEB INHALATION ×6 (03:21→23:00)
[2019-03-08] MEDS: 0.9% NaCl Peripheral Flush Adult/Peds IV ×5 (06:09→21:03)
[2019-03-08 06:56] LABS: Bedside Glucose 311 mg/dL (70-110)
[2019-03-08 07:06] LABS: Anion Gap 3 (5-15); BUN 47 mg/dL (7-18); BUN/Creat Ratio 28.3 RATIO (10-20); Calcium,Total 8.3 mg/dL (8.5-10.1); Chloride 96 mmol/L (98-107); Creatinine, Serum 1.66 mg/dL (0.70-1.30); EST Glomerular Filtration Rate 43 mL/min (>60); Est Glom Filt Rate - Afr Amer 52 mL/min (>60); Estimated Creatinine Clearance 36.63 ml/min; Glucose 311 mg/dL (74-106); Potassium 4.8 mmol/L (3.5-5.1); Sodium Level 133 mmol/L (136-145)
--- NOTE | 2019-03-08 08:09 | CPS ---
Pt placed back on Bipap at previous settings for decreased saturation and increased RR. Pt improved post placement....98% saturation on Bipap
[2019-03-08] MEDS: Insulin Lispro 100 UNIT/ML INSULN.PEN SC ×4 (08:16→21:03)
[2019-03-08] MEDS: Ceftriaxone 1 GM/50 ML BAG IV (08:16)
[2019-03-08] MEDS: Allopurinol 300 MG Tablet PO (08:17)
[2019-03-08] MEDS: dilTIAZem CD 240 MG Capsule PO (08:17)
[2019-03-08] MEDS: guaiFENesin 1,200 MG Tablet 1200 MG PO ×2 (08:17→21:02)
[2019-03-08] MEDS: Sertraline 100 MG Tablet PO (08:17)
[2019-03-08] MEDS: Metolazone 2.5 MG Tablet PO (08:17)
[2019-03-08] MEDS: Pantoprazole Sodium 40 MG Tablet PO (08:17)
[2019-03-08] MEDS: Aspirin 81 MG TAB.CHEW PO (08:17)
[2019-03-08] MEDS: Finasteride 5 MG Tablet PO (08:17)
[2019-03-08] MEDS: Magnesium Oxide 400 MG Tablet PO (08:18)
[2019-03-08] MEDS: Metoprolol Tartrate 50 MG Tablet PO ×2 (08:18→21:03)
[2019-03-08] MEDS: Iron Polysaccharide Complex 150 MG CAPSULE PO (08:18)
[2019-03-08] MEDS: Nystatin Powder 15gm Bottle 1 APPLIC TOPICAL ×2 (08:19→21:05)
[2019-03-08] MEDS: Spironolactone 25 MG Tablet PO (08:19)
[2019-03-08] MEDS: Menthol/Lanolin/Calamine/Znox 113 GM Tube 1 APPLIC TOPICAL ×2 (08:19→21:05)
--- NOTE | 2019-03-08 09:32 | CASEMGMT ---
BISI received a voice mail from Geraldine at [facility] and they can accept patient. She asked if SW could fax any wound care notes. BISI also received a voice mail from aKlie at [facility] and they do not have any male beds available. BISI faxed wound nurse notes from yesterday. SW went to patient's room and let him know that [facility] can accept him. He said they aren't going there. He did not know where his wanted him to go. BISI called patient's and left her a voice mail letting her know [facility] does not have any male beds and that [facility] can accept patient. BISI requested a return call. Brooke REYES MSW
[2019-03-08 11:55] LABS: Bedside Glucose 299 mg/dL (70-110)
--- NOTE | 2019-03-08 13:34 | PN_ITS ---
Subjective: Patient overall feels subjectively improved compared to yesterday. Patient has been using his BiPAP through the day because it makes me feel better. Patient has had significant lower extremity edema. Patient denies any chest pain, nausea or vomiting. Patient has tolerated 3-1/2 L nasal cannula oxygen with eating. - Physical Exam General: Alert, Oriented x3, Cooperative, No apparent distress, - - Morbidly obese. Speaking in full sentences. HEENT: Atraumatic, PERRLA, EOMI, Normocephalic, - - No scleral icterus or injection noted Oral: Moist Mucosa, No Gingival or Mucosal Lesions/ Ulcerations Neck: Supple, No JVD, No Nodes, Trachea Midline Lungs: No rhonchi, Diminished, Wheezes, - - Symmetric expansion. Cardiovascular: Regular rate, Regular Rhythm, Normal S1, Normal S2, No murmurs, No rub noted, No Gallop Abdomen: Bowel Sounds Present, Soft, Non Tender, Non-Distended, Obese, - - Ventral hernia appreciated Extremities: No cyanosis, Capillary Refill Less than 3 Seconds, Edema - 4+ lower extremities Skin: - - No significant change compared to previous Musculoskeletal: No Tenderness to Palpation of Joints or Extremities Lymphatic: No Cervical, Supraclavicular, or Inguinal Adenopathy Neurological: Cranial nerves II-XII grossly intact, Neuro grossly intact, Motor Exam 5/5 strength throughout Psych/Mental Status: Alert and oriented to time, place, person, mood and affect Vital Signs Temp Pulse Resp BP Pulse Ox 36.8 C 68 20 H 131/89 H 97 03/08/19 08:28 03/08/19 11:22 03/08/19 11:22 03/08/19 08:28 03/08/19 11:22 Oxygen Flow Rate (L/min) 3.5 Oxygen Delivery Method Bi-pap Weight: 157.8 kg Body Mass Index (BMI) 52.3 Finger Stick Blood Glucose 171 Intake and Output for Last 24 Hours 03/06/19 03/07/19 03/08/19 23:59 23:59 23:59 Intake Total 2517.5 / 2517.5 1732.50 / 1852.50 410 / 410 Output Total 900 / 900 675 / 975 1075 / 1075 Balance 1617.5 / 1617.5 1057.50 / 877.50 -665 / -665 Microbiology Past 72 Hours 10/12/19 20:05 Blood Culture - Preliminary Blood Culture (Wb) - Anticubital Left No growth in 48 hours. 03/05/19 18:51 Blood Culture - Preliminary Blood Culture (Wb) - Anticubital Right No growth in 48 hours. 03/05/19 23:50 Gram Stain - Final Sputum, Expectorated/Coughed Respiratory Culture - Final 03/05/19 20:00 Urine Culture - Final Urine Catheter - Andrews Serratia fonticola 03/06/19 11:40 Stool Occult Blood (ESTEFANIA) - Final Stool Occult Blood Positive 03/05/19 23:30 Respiratory Panel (PCR) - Final Interface Orders 03/05/19 20:00 Streptococcus pneumoniae Antigen (M - Final Interface Orders Streptococcus pneumonia Ag 03/05/19 20:00 Legionella Antigen - Final Interface Orders Laboratory Tests Past 24 Hrs 03/08/19 06:20 Sodium 133 L Potassium 4.8 Chloride 96 L Carbon Dioxide 34.0 H Anion Gap 3 L BUN 47 H Creatinine 1.66 H Estim Creat Clear Calc 36.63 Est GFR (MDRD) Af Amer 52 L Est GFR (MDRD) Non-Af 43 L BUN/Creatinine Ratio 28.3 H Glucose 311 H Calcium 8.3 L POC Glucose 03/08/19 03/08/19 03/07/19 11:45 06:51 21:04 POC Glucose 299 H 311 H 404 H 03/07/19 15:36 POC Glucose 343 H Medical Necessity - Tobacco Use Smoking Status: Former smoker Assessment/Plan All Active Problems (Last Reviewed 12/08/18 @ 03:44 by Garrett Whitley MD) New onset a-fib (Acute) Debility (Acute) Acute on chronic diastolic heart failure (Acute) History of repair of thoracic aortic aneurysm (Resolved 12/11/09) H/O aortic valve replacement (Resolved 12/11/09) Acute on chronic respiratory failure with hypoxia and hypercapnia (Resolved) Bilateral lower leg cellulitis (Resolved) CAP (community acquired pneumonia) (Resolved) CHF exacerbation (Resolved) Hyperkalemia (Resolved) Hypoglycemia (Resolved) Hypoglycemia (Resolved) Hypomagnesemia (Resolved) Hyponatremia (Resolved) Pulmonary embolism on right (Resolved) Shortness of breath (Resolved) Tobacco abuse (Resolved) Wheezing (Resolved) RECOMMENDATIONS: 1. Continue BiPAP therapy as tolerated. Wean oxygen as tolerated. 2. Continue bronchodilators. Wean IV steroids. 3. Consider additional diuretic therapy 4. Continue ceftriaxone as ordered. 5. Transfuse blood products if repeat hemoglobin is less than 7 g/dL. 6. Close outpatient pulmonary follow-up after discharge is recommended. IMPRESSIONS: 1. Acute on chronic combined respiratory failure, likely secondary to COPD exacerbation due to pneumococcal pneumonia The patient has a baseline supplemental oxygen requirement of 3 to 4 L along with underlying obstructive lung disease, for which he has been prescribed a triple therapy inhaler regimen in the past. The patient has essentially been noncompliant with outpatient pulmonary follow-up. Patient does have a pneumococcal pneumonia and is on appropriate antibiotics at this time. Did str ess the need for BiPAP with any sleep to avoid hypoxemic complications. Wean steroid therapy. Patient could be transition to prednisone therapy if discharged. Some concern for increased BiPAP usage during the day. Patient may benefit from additional diuretic therapy 2. Anemia The patient did have a colonoscopy performed in November 2018 which revealed internal and external hemorrhoids along with transverse colon polyps. While the patient did receive supplemental IV fluids on presentation, his hemoglobin this morning was noted to be 6.9 g/dL. A repeat H&H is currently pending. If the patient's hemoglobin is truly less than 7 g/dL, I would recommend transfusing packed red blood cells. Continue PPI therapy. Surgery is suggesting an EGD. Patient recently had a colonoscopy. 3. Chronic heart failure with preserved ejection fraction/status post aortic valve replacement/atrial fibrillation Diuretics currently on hold, given underlying renal insufficiency. Cardiology consultation is suggestive of underlying pneumonia as the primary process. Would defer diuretic recommendations to cardiology, but patient does have an increase in weight daily. 4. Known history of obstructive sleep apnea The patient has a known history of obstructive sleep apnea, for which he is prescribed outpatient BiPAP therapy. However, despite the patient's insistence that he utilizes his BiPAP, prior office visits during which time his compliance report was reviewed, clearly indicated that the patient was not utilizing his nocturnal Pap therapy as prescribed. This was confirmed by the family during my evaluation. Patient appears to have responded well to BiPAP overnight. Continue with any sleep. 5. Morbid obesity/history of medical noncompliance/hypertension/hyperlipidemia/diabetes mellitus/GERD Complicates care, management, recovery and prognosis. Continue home medications as indicated. Recommend physical therapy evaluation. Code Visit Inpatient E&M: 99492 Subs Hosp L3
--- NOTE | 2019-03-08 13:48 | CASEMGMT ---
BISI called patient's again. She said she got [facility]'s message and they would like to go with [facility] since [facility] full. Plan: [facility] [place] when medically ready. Brooke REYES MSW
--- NOTE | 2019-03-08 14:00 | CASEMGMT ---
[facility]I faxed patient's bipap settings and other updated clinicals to [facility] [place]. Brooke REYES M[employer]GAGE LOAN PROCESSING CLERK
--- NOTE | 2019-03-08 14:10 | CASEMGMT ---
BISI let patient know that SW spoke with his and since [facility] does not have beds available he will go to [facility] [place]. Brooke REYES MSW
--- NOTE | 2019-03-08 14:55 | PCM.PN.HOSP ---
Patient Problems: Active and Suspected Problems (Last Reviewed 12/08/18 @ 03:44 by Garrett Whitley MD) New onset a-fib (Acute) Converted to sinus rhythm Acute on chronic diastolic heart failure (Acute) Subjective: Breathing subjectively better, but has been on BiPAP continuously. Vitals/I&O's: Vital Signs Temp Pulse Resp BP Pulse Ox 36.8 C 68 20 H 131/89 H 97 03/08/19 08:28 03/08/19 11:22 03/08/19 11:22 03/08/19 08:28 03/08/19 11:22 Oxygen Flow Rate (L/min) 3.5 Oxygen Delivery Method Bi-pap Weight: 157.8 kg Body Mass Index (BMI) 52.3 Finger Stick Blood Glucose 171 Intake and Output for Last 24 Hours 03/06/19 03/07/19 03/08/19 23:59 23:59 23:59 Intake Total 2517.5 / 2517.5 1732.50 / 1852.50 410 / 410 Output Total 900 / 900 675 / 975 1075 / 1075 Balance 1617.5 / 1617.5 1057.50 / 877.50 -665 / -665 General: Alert, No apparent distress HEENT: Atraumatic, Normocephalic Oral: Moist Mucosa, No Gingival or Mucosal Lesions/ Ulcerations Neck: No Nodes, Trachea Midline Lungs: Diminished, - - coarse breath sounds bilaterally. Cardiovascular: Regular rate, Regular Rhythm, Normal S1, Normal S2 Abdomen: Bowel Sounds Present, Soft, Non Tender, Non-Distended, No Hepato-splenomegaly Extremities: No edema, No Calf Tenderness Skin: No rashes, No breakdown Psych/Mental Status: Normal Affect, Appropriate Microbiology Past 72 Hours 03/05/19 20:05 Blood Culture (Wb) - Anticubital Left Blood Culture - Preliminary No growth in 48 hours. 03/05/19 18:51 Blood Culture (Wb) - Anticubital Right Blood Culture - Preliminary No growth in 48 hours. 03/05/19 23:50 Sputum, Expectorated/Coughed Gram Stain - Final 03/05/19 23:50 Sputum, Expectorated/Coughed Respiratory Culture - Final 03/05/19 20:00 Urine Catheter - Andrews Urine Culture - Final Serratia fonticola 03/06/19 11:40 Stool Stool Occult Blood (ESTEFANIA) - Final Occult Blood Positive 03/05/19 23:30 Interface Orders Respiratory Panel (PCR) - Final 03/05/19 20:00 Interface Orders Streptococcus pneumoniae Antigen (M - Final Streptococcus pneumonia Ag 03/05/19 20:00 Interface Orders Legionella Antigen - Final Laboratory Results 03/07/19 15:36: POC Glucose 343 H 03/07/19 21:04: POC Glucose 404 H 03/08/19 06:20: Sodium 133 L, Potassium 4.8, Chloride 96 L, Carbon Dioxide 34.0 H, Anion Gap 3 L, BUN 47 H, Creatinine 1.66 H, Estim Creat Clear Calc 36.63, Est GFR (MDRD) Af Amer 52 L, Est GFR (MDRD) Non-Af 43 L, BUN/Creatinine Ratio 28.3 H, Glucose 311 H, Calcium 8.3 L 03/08/19 06:51: POC Glucose 311 H 03/08/19 11:45: POC Glucose 299 H Current Medications Acetaminophen (Tylenol) 1,000 mg PO Q6H PRN PRN PRN Reason: Pain Score 1-3/10 Albuterol Sulfate (Ventolin Aerosols) 2.5 mg INHALATION Q2H PRN PRN PRN Reason: SHORTNESS OF BREATH Albuterol/Ipratropium (Duoneb) 3 ml INHALATION Q4H.RT [facility] Last Admin: 03/08/19 14:36 Dose: 3 ml Documented by: Allopurinol (Zyloprim) 300 mg PO DAILY [facility] Last Admin: 03/08/19 08:17 Dose: 300 mg Documented by: Aspirin (Aspirin, Baby) 81 mg PO DAILY@0800 [facility] Last Admin: 03/08/19 08:17 Dose: 81 mg Documented by: Atorvastatin Calcium (Lipitor) 40 mg PO QHS [facility] Last Admin: 03/07/19 21:08 Dose: 40 mg Documented by: Calamine/Phenol (Calmoseptine Ointment) 1 applic TOPICAL BID [facility]; Protocol Last Admin: 03/08/19 08:19 Dose: 1 applicatio Documented by: Dextrose (D50w Syringe) 0 gm IV X1 PRN; Protocol PRN Reason: Hypoglycemia Diltiazem HCl (Cardizem Cd) 240 mg PO DAILY [facility] Last Admin: 03/08/19 08:17 Dose: 240 mg Documented by: Doxazosin Mesylate (Cardura) 8 mg PO QHS [facility] Last Admin: 03/07/19 21:06 Dose: 8 mg Documented by: Finasteride (Proscar) 5 mg PO DAILY [facility] Last Admin: 03/08/19 08:17 Dose: 5 mg Documented by: Glucagon () 1 mg IM .X1 PRN PRN Reason: Hypoglycemia Guaifenesin (Mucinex) 1,200 mg PO BID [facility] Last Admin: 03/08/19 08:17 Dose: 1,200 mg Documented by: Ceftriaxone Sodium (Rocephin) 1 gm in 50 mls @ 100 mls/hr IV Q24 [facility] Last Infusion: 03/08/19 09:04 Dose: Infused Documented by: Insulin Glargine (Lantus (Bk)) 10 units SC BREAKFAST [facility] Last Admin: 03/08/19 08:17 Dose: 10 u Documented by: Insulin Glargine (Lantus (Bkc)) 10 units SC QHS [facility] Last Admin: 03/07/19 21:09 Dose: 10 u Documented by: Insulin Human Lispro (Humalog Kwikpen ([facility])) 0 unit SC ACHS [facility]; Protocol Last Admin: 03/08/19 11:46 Dose: 6 units Documented by: Magnesium Oxide (Mag-Ox 400) 400 mg PO DAILY [facility] Last Admin: 03/08/19 08:18 Dose: 400 mg Documented by: Methylprednisolone (Solu-Medrol) 40 mg IV Q12 [facility] Metolazone (Zaroxolyn) 2.5 mg PO DAILY [facility] Last Admin: 03/08/19 08:17 Dose: 2.5 mg Documented by: Metoprolol Tartrate (Lopressor (Beta Kristel)) 50 mg PO BID [facility] Last Admin: 03/08/19 08:18 Dose: 50 mg Documented by: Multi-Ingredient Cream (Eucerin) 1 applic TOPICAL 0600,2200 [facility]; Protocol Last Admin: 03/08/19 06:11 Dose: Not Given Documented by: Nitroglycerin (Nitrostat) 0.4 mg SUBLINGUAL Q5M PRN PRN Reason: CARDIAC/CHEST PAIN Nystatin (Mycostatin Powder) 1 applic TOPICAL BID [facility]; Protocol Last Admin: 03/08/19 08:19 Dose: 1 applicatio Documented by: Pantoprazole Sodium (Protonix) 40 mg PO DAILY [facility] Last Admin: 03/08/19 08:17 Dose: 40 mg Documented by: Polysaccharide Iron Complex (Ferrex 150) 150 mg PO DAILYCM [facility] Last Admin: 03/08/19 08:18 Dose: 150 mg Documented by: Prochlorperazine Edisylate (Compazine Iv) 5 mg IV Q4H PRN PRN PRN Reason: Breakthrough Nausea/Vomiting Sertraline HCl (Zoloft) 100 mg PO DAILY [facility] Last Admin: 03/08/19 08:17 Dose: 100 mg Documented by: Sodium Chloride () 5 - 15 ml IV UD PRN PRN Reason: SALINE FLUSH Last Admin: 03/08/19 13:23 Dose: 10 ml Documented by: Spironolactone (Aldactone) 25 mg PO DAILY [facility] Last Admin: 03/08/19 08:19 Dose: 25 mg Documented by: STROKE Vital Signs/Narrative: Vital Signs Pulse Resp Pulse Ox 03/08/19 11:22 63 20 H 97 Medical Necessity - Tobacco Use Smoking Status: Former smoker Assessment/Plan All Active Problems (Last Reviewed 12/08/18 @ 03:44 by Garrett Whitley MD) New onset a-fib (Acute) Debility (Acute) Acute on chronic diastolic heart failure (Acute) History of repair of thoracic aortic aneurysm (Resolved 12/11/09) H/O aortic valve replacement (Resolved 12/11/09) Acute on chronic respiratory failure with hypoxia and hypercapnia (Resolved) Bilateral lower leg cellulitis (Resolved) CAP (community acquired pneumonia) (Resolved) CHF exacerbation (Resolved) Hyperkalemia (Resolved) Hypoglycemia (Resolved) Hypoglycemia (Resolved) Hypomagnesemia (Resolved) Hyponatremia (Resolved) Pulmonary embolism on right (Resolved) Shortness of breath (Resolved) Tobacco abuse (Resolved) Wheezing (Resolved) 1. acute hypoxic and hypercapnic respiratory failure. multifactorial: 2/2 AECOPD, Pneumococcal pneumonia, MIKO, CHF CCM following unable to wean off BiPAP follow up w pulm as outpt 2. AECOPD IV methylpred BDs 3. Pneumococcal pneumonia + urinary antigen and Cx positive for alpha hemolytic strep continue CTX pulm toilet 4. Anemia chronic transfused 2 units PRBCs during this admission heme positive stools had colonoscopy on 12/12, which showed hemorroids at that time had EGD on 07/28/18 which [address] Dr[address] Rubio, advised holding off on any endoscopy at this time. Particularlly since he had relatively normal endoscopy relatively recently, but also he ought be in better physical condition Iron has been low, but ferritin high, therefor, not iron-deficient. complicated by clopidogrel, and it is unclear why he is on it, change to ASA 5. pAfib controlled on metoprolol and dilt given then anemia and heme positive stools, hold off on oral anticoagulants for now. 6. Acute HFpEF EF 60% from 08/21/17 Weight up to 158kg, was 144 in December continue spironolactone, metolazone start IV lasix. recheck echo to eval for any changes in the past 18mo 7. VTE prophylaxis: SCDs Code Visit Inpatient E&M: 63962 Subs Hosp L2
--- NOTE | 2019-03-08 15:05 | ECHOCS_ITS ---
Reason For Study: CHF Procedure This was a 2D Doppler, Color Flow transthoracic echocardiogram. The study was technically difficult. Contrast injection was performed. Exam performed portable in patient room. Left Ventricle Mild concentric left ventricular hypertrophy. The estimated ejection fraction is 55 %. Stage 2 diastolic dysfunction. There is borderline global hypokinesis of the left ventricle. Right Ventricle Normal size and thickness. Normal systolic function. Atria The left atrium is severely enlarged. Mitral Valve Mild diffuse mitral valve thickening. Tricuspid Valve Normal tricuspid valve. Trivial tricuspid valve insufficiency. Right ventricular systolic pressure estimated to be 39 mmHg. Mild pulmonary hypertension. Aortic Valve Normal aortic valve. Trisinus/trileaflet aortic valve. Pulmonic Valve The pulmonic valve is not well visualized. Great Vessels Normal aortic root. Normal arch. Normal inferior vena cava. Pericardium/Pleural No pericardial effusion. Medication Diluted definity 5ml given slow IV push to enhance endocardial definition. MMode/2D Measurements & Calculations LVIDd: 7.2 cm IVSd: 1.4 cm LVOT diam: 2.1 cm LVIDs: 4.8 cm LVPWd: 0.99 cm FS: 33.7 % LVOT area: 3.5 cm2 Ao root diam: 3.4 cm LAV(MOD-bp): 110.3 ml LVAd ap4: 39.2 cm2 LAV(MOD-bp) Indexed: 42.5 ml/m2 EDV(MOD-sp4): 144.3 ml LAV(MOD-sp2): 107.8 ml EDV(sp4-el): 147.1 ml LAV(MOD-sp4): 109.3 ml LVAs ap4: 25.4 cm2 ESV(MOD-sp4): 67.3 ml ESV(sp4-el): 64.1 ml EF(MOD-sp4): 53.3 % EF(sp4-el): 56.4 % SV(MOD-sp4): 76.9 ml SV(sp4-el): 83.0 ml LA A4 area: 30.2 cm2 LA dimension(2D): 5.1 cm Doppler Measurements & Calculations MV E max brandon: 111.0 cm/sec Lat Peak E' Brandon: 9.0 cm/sec Med Peak E' Brandon: 6.1 cm/sec MV A max brandon: 70.9 cm/sec E/E' lat: 12.4 E/E' med: 18.3 MV E/A: 1.6 Ao V2 max: 160.5 cm/sec LV V1 max: 123.4 cm/sec SV(LVOT): 99.2 ml Ao max P.3 mmHg LV V1 max P.1 mmHg Ao V2 mean: 103.4 cm/sec LV V1 mean P.4 mmHg Ao mean P.9 mmHg LV V1 mean: 87.7 cm/sec Ao V2 VTI: 32.7 cm LV V1 VTI: 28.3 cm REBECCA(I,D): 3.0 cm2 REBECCA(V,D): 2.7 cm2 PA V2 max: 86.1 cm/sec TR max brandon: 290.1 cm/sec TR max P.7 mmHg Interpretation Summary Mild concentric left ventricular hypertrophy. The estimated ejection fraction is 55 %. Stage 2 diastolic dysfunction. There is borderline global hypokinesis of the left ventricle. The left atrium is severely enlarged. Trivial tricuspid valve insufficiency. Right ventricular systolic pressure estimated to be 39 mmHg. Mild pulmonary hypertension. Compared to echo report dated 12/08/2018, no appreciable changes noted. The study was technically difficult. Contrast injection was performed. Ordering Physician: Cristobal Robles Referring Physician: Jack Verdugo Performed By: Robyn Altman RDCS, RVT
[2019-03-08] MEDS: Furosemide 100 MG/10 ML Vial 60 MG IV (16:16)
[2019-03-08 16:25] LABS: Bedside Glucose 218 mg/dL (70-110)
[2019-03-08] MEDS: Doxazosin 4 MG Tablet 8 MG PO (21:02)
[2019-03-08] MEDS: Atorvastatin Calcium 40 MG Tablet PO (21:03)
[2019-03-08 21:26] LABS: Bedside Glucose 336 mg/dL (70-110)
[2019-03-09] VITALS (19 sets, daily range): BP systolic 133–143; BP diastolic 57–73; PULSE 52–72; RESP 12–24; TEMP 36.6–37.1; O2SAT 62–97
[2019-03-09] MEDS: Acetaminophen 500 MG Tablet 1000 MG PO ×2 (01:19→21:10)
[2019-03-09] MEDS: Ipratropium/Albuterol Sulfate 3 ML AMPUL.NEB INHALATION ×6 (02:50→23:03)
[2019-03-09 06:01] LABS: Absolute Lymphocyte Count 0.27 X10^3/uL (0.83-4.51); Absolute Neutrophil Count 5.1 X10^3/uL (2.0-7.7); Hemoglobin 8.8 g/dL (13.0-16.5); Lymphocyte # 0.27 X10^3/ul (4.0); Lymphocyte % 4.7 % (19-41); Mean Corp Hgb Conc 31.4 g/dL (32-36); Mean Corpuscular Hgb 27.5 pg (27.0-32.0); Mean Corpuscular Volume 87.5 fL (80-94); Mean Platelet Vol. 9.6 fl (6.2-12.0); Monocyte% 5.3 % (0-10); NRBC Flagged by Analyzer 0 % (0-5); Neutrophil # 5.05 X10^3/uL (2.7-7.7); Neutrophil % 88.4 % (47-70); POSITIVE DIFFERENTIAL YES; Platelet Count 299 K/mm3 (150-450); RBC Distribution Width CV 14.1 % (11.6-14.6); RBC Distribution Width SD 44.5 fl (35.1-43.9); White Blood Count 5.7 K/mm3 (4.4-11.0)
[2019-03-09 06:15] LABS: Differential Indicated SCAN CRITERIA MET
[2019-03-09 06:28] LABS: Anion Gap 5 (5-15); BUN 54 mg/dL (7-18); BUN/Creat Ratio 36.5 RATIO (10-20); Calcium,Total 8.3 mg/dL (8.5-10.1); Chloride 94 mmol/L (98-107); Creatinine, Serum 1.48 mg/dL (0.70-1.30); EST Glomerular Filtration Rate 49 mL/min (>60); Est Glom Filt Rate - Afr Amer 59 mL/min (>60); Estimated Creatinine Clearance 41.08 ml/min; Glucose 330 mg/dL (74-106); Potassium 5.1 mmol/L (3.5-5.1); Sodium Level 134 mmol/L (136-145)
[2019-03-09] MEDS: Insulin Lispro 100 UNIT/ML INSULN.PEN SC ×4 (06:40→21:07)
[2019-03-09 06:51] LABS: Differential Comment SCANNED; Hypochromasia 2+
[2019-03-09 06:55] LABS: Bedside Glucose 312 mg/dL (70-110)
[2019-03-09] MEDS: Allopurinol 300 MG Tablet PO (08:30)
[2019-03-09] MEDS: Magnesium Oxide 400 MG Tablet PO (08:30)
[2019-03-09] MEDS: Iron Polysaccharide Complex 150 MG CAPSULE PO (08:30)
[2019-03-09] MEDS: Metolazone 2.5 MG Tablet PO (08:30)
[2019-03-09] MEDS: Finasteride 5 MG Tablet PO (08:30)
[2019-03-09] MEDS: Aspirin 81 MG TAB.CHEW PO (08:31)
[2019-03-09] MEDS: Pantoprazole Sodium 40 MG Tablet PO (08:31)
[2019-03-09] MEDS: Sertraline 100 MG Tablet PO (08:31)
[2019-03-09] MEDS: guaiFENesin 1,200 MG Tablet 1200 MG PO ×2 (08:31→21:09)
[2019-03-09] MEDS: 0.9% NaCl Peripheral Flush Adult/Peds IV ×2 (08:31→17:05)
[2019-03-09] MEDS: dilTIAZem CD 240 MG Capsule PO (08:32)
[2019-03-09] MEDS: Furosemide 40 MG/4 ML Vial IV ×2 (08:32→17:05)
[2019-03-09] MEDS: Menthol/Lanolin/Calamine/Znox 113 GM Tube 1 APPLIC TOPICAL ×2 (08:33→21:05)
[2019-03-09] MEDS: Nystatin Powder 15gm Bottle 1 APPLIC TOPICAL ×2 (08:33→21:09)
[2019-03-09] MEDS: Spironolactone 25 MG Tablet PO (08:36)
[2019-03-09] MEDS: Ceftriaxone 1 GM/50 ML BAG IV (08:36)
[2019-03-09] MEDS: Metoprolol Tartrate 50 MG Tablet PO ×2 (08:50→21:09)
--- NOTE | 2019-03-09 10:08 | PN_ITS ---
Subjective: Patient did well overnight. Patient did have some diuresis yesterday and feels subjectively improved today. Patient was able to tolerate baseline 3-1/2 L nasal cannula oxygen and was eating breakfast on my arrival. Patient continues to have a nonproductive cough. - Physical Exam General: Alert, Oriented x3, Cooperative, No apparent distress, - - No conversational dyspnea. Morbidly obese. HEENT: Atraumatic, PERRLA, EOMI, Normocephalic, - - Light scleral injection without icterus Oral: Moist Mucosa, No Gingival or Mucosal Lesions/ Ulcerations Neck: Supple, No JVD, No Nodes, Trachea Midline Lungs: No rhonchi, No wheeze, No rales, Diminished, - - Symmetric expansion Cardiovascular: Regular rate, Normal S1, Normal S2, No murmurs, No rub noted, No Gallop Abdomen: Bowel Sounds Present, Soft, Non Tender, Non-Distended, Hernia Extremities: No clubbing, No cyanosis, Edema Skin: No rashes, - - No change from previous Musculoskeletal: No Tenderness to Palpation of Joints or Extremities Lymphatic: No Cervical, Supraclavicular, or Inguinal Adenopathy Neurological: Cranial nerves II-XII grossly intact, Neuro grossly intact, Motor Exam 5/5 strength throughout Psych/Mental Status: Alert and oriented to time, place, person, mood and affect Vital Signs Temp Pulse Resp BP Pulse Ox 36.6 C 61 22 H 143/73 H 97 03/09/19 08:44 03/09/19 08:50 03/09/19 08:44 03/09/19 08:44 03/09/19 08:44 Oxygen Flow Rate (L/min) 3.5 Oxygen Delivery Method Bi-pap Weight: 157.8 kg Body Mass Index (BMI) 52.3 Finger Stick Blood Glucose 171 Intake and Output for Last 24 Hours 03/07/19 03/08/19 03/09/19 23:59 23:59 23:59 Intake Total 1732.50 / 1852.50 810 / 1290 770 / 770 Output Total 675 / 975 1875 / 2675 1500 / 1500 Balance 1057.50 / 877.50 -1065 / -1385 -730 / -730 Microbiology Past 72 Hours 03/05/19 20:05 Blood Culture - Preliminary Blood Culture (Wb) - Anticubital Left No growth in 48 hours. 10/12/19 18:51 Blood Culture - Preliminary Blood Culture (Wb) - Anticubital Right No growth in 48 hours. 03/05/19 23:50 Gram Stain - Final Sputum, Expectorated/Coughed Respiratory Culture - Final 03/05/19 20:00 Urine Culture - Final Urine Catheter - Andrews Serratia fonticola 03/06/19 11:40 Stool Occult Blood (ESTEFANIA) - Final Stool Occult Blood Positive Laboratory Tests Past 24 Hrs 03/09/19 03/09/19 05:30 05:30 WBC 5.7 RBC 3.20 L Hgb 8.8 L Hct 28.0 L MCV 87.5 MCH 27.5 MCHC 31.4 L RDW Std Deviation 44.5 H RDW Coeff of El 14.1 Plt Count 299 MPV 9.6 Immature Gran % (Auto) 1.600 H Neut % (Auto) 88.4 H Lymph % (Auto) 4.7 L [place] % (Auto) 5.3 Eos % (Auto) 0.0 Baso % (Auto) 0.0 Absolute Neuts (auto) 5.1 Absolute Lymphs (auto) 0.27 L Nucleated RBC % 0 Differential Comment SCANNED Hypochromasia 2+ Sodium 134 L Potassium 5.1 Chloride 94 L Carbon Dioxide 35.0 H Anion Gap 5 BUN 54 H Creatinine 1.48 H Estim Creat Clear Calc 41.08 Est GFR (MDRD) Af Amer 59 L Est GFR (MDRD) Non-Af 49 L BUN/Creatinine Ratio 36.5 H Glucose 330 H Calcium 8.3 L POC Glucose 03/09/19 03/08/19 03/08/19 06:38 21:00 16:16 POC Glucose 312 H 336 H 218 H 03/08/19 11:45 POC Glucose 299 H Medical Necessity - Tobacco Use Smoking Status: Former smoker Assessment/Plan All Active Problems (Last Reviewed 12/08/18 @ 03:44 by Garrett Whitley MD) New onset a-fib (Acute) Debility (Acute) Acute on chronic diastolic heart failure (Acute) History of repair of thoracic aortic aneurysm (Resolved 12/11/09) H/O aortic valve replacement (Resolved 12/11/09) Acute on chronic respiratory failure with hypoxia and hypercapnia (Resolved) Bilateral lower leg cellulitis (Resolved) CAP (community acquired pneumonia) (Resolved) CHF exacerbation (Resolved) Hyperkalemia (Resolved) Hypoglycemia (Resolved) Hypoglycemia (Resolved) Hypomagnesemia (Resolved) Hyponatremia (Resolved) Pulmonary embolism on right (Resolved) Shortness of breath (Resolved) Tobacco abuse (Resolved) Wheezing (Resolved) RECOMMENDATIONS: 1. Continue BiPAP therapy as tolerated. Wean oxygen as tolerated. 2. Continue bronchodilators. Transition to prednisone therapy and wean over 12 to 14 days 3. Consider additional diuretic therapy 4. Continue ceftriaxone as ordered. 5. Transfuse blood products if repeat hemoglobin is less than 7 g/dL. 6. Close outpatient pulmonary follow-up after discharge is recommended. IMPRESSIONS: 1. Acute on chronic combined respiratory failure, likely secondary to COPD exacerbation due to pneumococcal pneumonia The patient has a baseline supplemental oxygen requirement of 3 to 4 L along with underlying obstructive lung disease, for which he has been prescribed a triple therapy inhaler regimen in the past. The patient has essentially been noncompliant with outpatient pulmonary follow-up. Patient does have a pneumococcal pneumonia and is on appropriate antibiotics at this time. Did stress the need for BiPAP with any sleep to avoid hypoxemic complications. Patient transition to prednisone therapy. This can be weaned over the next 12 to 14 days. Need for BiPAP appears to improve with diuresis. Patient may benefit from additional diuretic therapy 2. Anemia The patient did have a colonoscopy performed in November 2018 which revealed internal and external hemorrhoids along with transverse colon polyps. While the patient did receive supplemental IV fluids on presentation, his hemoglobin this morning was noted to be 6.9 g/dL. A repeat H&H is currently pending. If the patient's hemoglobin is truly less than 7 g/dL, I would recommend transfusing packed red blood cells. Continue PPI therapy. Surgery is suggesting an EGD. Patient recently had a colonoscopy. 3. Chronic heart failure with preserved ejection fraction/status post aortic valve replacement/atrial fibrillation Diuretics currently on hold, given underlying renal insufficiency. Cardiology consultation is suggestive of underlying pneumonia as the primary process. Would defer diuretic recommendations to cardiology, but patient does have an increase in weight daily. 4. Known history of obstructive sleep apnea The patient has a known history of obstructive sleep apnea, for which he is prescribed outpatient BiPAP therapy. However, despite the patient's insistence that he utilizes his BiPAP, prior office visits during which time his compliance report was reviewed, clearly indicated that the patient was not utilizing his nocturnal Pap therapy as prescribed. This was confirmed by the family during my evaluation. Patient appears to have responded well to BiPAP overnight. Continue with any sleep. 5. Morbid obesity/history of medical noncompliance/hypertension/hyperlipidemia/diabetes mellitus/GERD Complicates care, management, recovery and prognosis. Continue home medications as indicated. Recommend physical therapy evaluation. Code Visit Inpatient E&M: 50782 Subs Hosp L2
[2019-03-09 10:42] LABS: Blood Gas Specimen Type VEN
[2019-03-09 11:21] LABS: Bedside Glucose 353 mg/dL (70-110)
--- NOTE | 2019-03-09 15:01 | PN_ITS ---
Patient Problems: Active and Suspected Problems (Last Reviewed 12/08/18 @ 03:44 by Garrett Whitley MD) Acute on chronic diastolic heart failure (Acute) Subjective: Breathing well. Tolerating being off BiPAP. Vitals/I&O's: Vital Signs Temp Pulse Resp BP Pulse Ox 36.6 C 71 22 H 143/73 H 97 03/09/19 08:44 03/09/19 10:40 03/09/19 10:40 03/09/19 08:44 03/09/19 08:44 Oxygen Flow Rate (L/min) 3.5 Oxygen Delivery Method Bi-pap Weight: 156.7 kg Body Mass Index (BMI) 52.3 Finger Stick Blood Glucose 171 Intake and Output for Last 24 Hours 03/07/19 03/08/19 03/09/19 23:59 23:59 23:59 Intake Total 1732.50 / 1852.50 810 / 1290 1010 / 1010 Output Total 675 / 975 1875 / 2675 1999 / 1999 Balance 1057.50 / 877.50 -1065 / -1385 -990 / -990 General: Alert, No apparent distress HEENT: Atraumatic, Normocephalic Oral: Moist Mucosa, No Gingival or Mucosal Lesions/ Ulcerations Neck: No Nodes, Thyroid Normal Size and Texture Lungs: Normal air movement, - - coarse breath sounds bilaterally. Cardiovascular: Regular rate, Regular Rhythm, Normal S1, Normal S2 Abdomen: Bowel Sounds Present, Soft, Non Tender, Non-Distended Extremities: No Calf Tenderness, Edema Skin: No rashes, No breakdown Microbiology Past 72 Hours 03/05/19 20:05 Blood Culture (Wb) - Anticubital Left Blood Culture - Preliminary No growth in 48 hours. 03/05/19 18:51 Blood Culture (Wb) - Anticubital Right Blood Culture - Preliminary No growth in 48 hours. 03/05/19 23:50 Sputum, Expectorated/Coughed Gram Stain - Final 03/05/19 23:50 Sputum, Expectorated/Coughed Respiratory Culture - Final 03/05/19 20:00 Urine Catheter - Andrews Urine Culture - Final Serratia fonticola 03/06/19 11:40 Stool Stool Occult Blood (ESTEFANIA) - Final Occult Blood Positive Laboratory Results 03/06/19 07:25: Specimen Type RADHA 03/08/19 16:16: POC Glucose 218 H 03/08/19 21:00: POC Glucose 336 H 03/09/19 05:30: WBC 5.7, RBC 3.20 L, Hgb 8.8 L, Hct 28.0 L, MCV 87.5, MCH 27.5, MCHC 31.4 L, RDW Std Deviation 44.5 H, RDW Coeff of El 14.1, Plt Count 299, MPV 9.6, Immature Gran % (Auto) 1.600 H, Neut % (Auto) 88.4 H, Lymph % (Auto) 4.7 L, [place] % (Auto) 5.3, Eos % (Auto) 0.0, Baso % (Auto) 0.0, Absolute Neuts (auto) 5.1, Absolute Lymphs (auto) 0.27 L, Nucleated RBC % 0, Differential Comment SCANNED, Hypochromasia 2+ 03/09/19 05:30: Sodium 134 L, Potassium 5.1, Chloride 94 L, Carbon Dioxide 35.0 H, Anion Gap 5, BUN 54 H, Creatinine 1.48 H, Estim Creat Clear Calc 41.08, Est GFR (MDRD) Af Amer 59 L, Est GFR (MDRD) Non-Af 49 L, BUN/Creatinine Ratio 36.5 H , Glucose 330 H, Calcium 8.3 L 03/09/19 06:38: POC Glucose 312 H 03/09/19 11:08: POC Glucose 353 H Current Medications Acetaminophen (Tylenol) 1,000 mg PO Q6H PRN PRN PRN Reason: Pain Score 1-3/10 Last Admin: 03/09/19 01:19 Dose: 1,000 mg Documented by: Albuterol Sulfate (Ventolin Aerosols) 2.5 mg INHALATION Q2H PRN PRN PRN Reason: SHORTNESS OF BREATH Albuterol/Ipratropium (Duoneb) 3 ml INHALATION Q4H.RT [facility] Last Admin: 03/09/19 10:40 Dose: 3 ml Documented by: Allopurinol (Zyloprim) 300 mg PO DAILY [facility] Last Admin: 03/09/19 08:30 Dose: 300 mg Documented by: Aspirin (Aspirin, Baby) 81 mg PO DAILY@0800 [facility] Last Admin: 03/09/19 08:31 Dose: 81 mg Documented by: Atorvastatin Calcium (Lipitor) 40 mg PO QHS [facility] Last Admin: 03/08/19 21:03 Dose: 40 mg Documented by: Calamine/Phenol (Calmoseptine Ointment) 1 applic TOPICAL BID [facility]; Protocol Last Admin: 03/09/19 08:33 Dose: 1 applicatio Documented by: Dextrose (D50w Syringe) 0 gm IV X1 PRN; Protocol PRN Reason: Hypoglycemia Diltiazem HCl (Cardizem Cd) 240 mg PO DAILY [facility] Last Admin: 03/09/19 08:32 Dose: 240 mg Documented by: Doxazosin Mesylate (Cardura) 8 mg PO QHS [facility] Last Admin: 03/08/19 21:02 Dose: 8 mg Documented by: Finasteride (Proscar) 5 mg PO DAILY [facility] Last Admin: 03/09/19 08:30 Dose: 5 mg Documented by: Furosemide (Lasix) 40 mg IV BID@1000,1800 [facility] Last Admin: 03/09/19 08:32 Dose: 40 mg Documented by: Glucagon () 1 mg IM .X1 PRN PRN Reason: Hypoglycemia Guaifenesin (Mucinex) 1,200 mg PO BID [facility] Last Admin: 03/09/19 08:31 Dose: 1,200 mg Documented by: Ceftriaxone Sodium (Rocephin) 1 gm in 50 mls @ 100 mls/hr IV Q24 [facility] Last Infusion: 03/09/19 09:06 Dose: Infused Documented by: Insulin Glargine (Lantus (Bkc)) 10 units SC BREAKFAST [facility] Last Admin: 03/09/19 08:31 Dose: 10 u Documented by: Insulin Glargine (Lantus (Bkc)) 10 units SC QHS [facility] Last Admin: 03/08/19 21:04 Dose: 10 u Documented by: Insulin Human Lispro (Humalog Kwikpen (Bkc)) 0 unit SC ACHS [facility]; Protocol Last Admin: 03/09/19 11:11 Dose: 8 units Documented by: Magnesium Oxide (Mag-Ox 400) 400 mg PO DAILY [facility] Last Admin: 03/09/19 08:30 Dose: 400 mg Documented by: Metolazone (Zaroxolyn) 2.5 mg PO DAILY [facility] Last Admin: 03/09/19 08:30 Dose: 2.5 mg Documented by: Metoprolol Tartrate (Lopressor (Beta Kristel)) 50 mg PO BID [facility] Last Admin: 03/09/19 08:50 Dose: 50 mg Documented by: Multi-Ingredient Cream (Eucerin) 1 applic TOPICAL 0600,2200 [facility]; Protocol Last Admin: 03/09/19 05:27 Dose: Not Given Documented by: Nitroglycerin (Nitrostat) 0.4 mg SUBLINGUAL Q5M PRN PRN Reason: CARDIAC/CHEST PAIN Nystatin (Mycostatin Powder) 1 applic TOPICAL BID [facility]; Protocol Last Admin: 03/09/19 08:33 Dose: 1 applicatio Documented by: Pantoprazole Sodium (Protonix) 40 mg PO DAILY [facility] Last Admin: 03/09/19 08:31 Dose: 40 mg Documented by: Polysaccharide Iron Complex (Ferrex 150) 150 mg PO DAILYCM [facility] Last Admin: 03/09/19 08:30 Dose: 150 mg Documented by: Prednisone () 40 mg PO DAILY@0800 [facility] Prochlorperazine Edisylate (Compazine Iv) 5 mg IV Q4H PRN PRN PRN Reason: Breakthrough Nausea/Vomiting Sertraline HCl (Zoloft) 100 mg PO DAILY [facility] Last Admin: 03/09/19 08:31 Dose: 100 mg Documented by: Sodium Chloride () 5 - 15 ml IV UD PRN PRN Reason: SALINE FLUSH Last Admin: 03/09/19 08:31 Dose: 15 ml Documented by: Spironolactone (Aldactone) 25 mg PO DAILY [facility] Last Admin: 03/09/19 08:36 Dose: 25 mg Documented by: Medical Necessity - Tobacco Use Smoking Status: Former smoker Assessment/Plan All Active Problems (Last Reviewed 12/08/18 @ 03:44 by Garrett Whitley MD) New onset a-fib (Acute) Debility (Acute) Acute on chronic diastolic heart failure (Acute) History of repair of thoracic aortic aneurysm (Resolved 12/11/09) H/O aortic valve replacement (Resolved 12/11/09) Acute on chronic respiratory failure with hypoxia and hypercapnia (Resolved) Bilateral lower leg cellulitis (Resolved) CAP (community acquired pneumonia) (Resolved) CHF exacerbation (Resolved) Hyperkalemia (Resolved) Hypoglycemia (Resolved) Hypoglycemia (Resolved) Hypomagnesemia (Resolved) Hyponatremia (Resolved) Pulmonary embolism on right (Resolved) Shortness of breath (Resolved) Tobacco abuse (Resolved) Wheezing (Resolved) 1. acute hypoxic and hypercapnic respiratory failure. * multifactorial: 2/2 AECOPD, Pneumococcal pneumonia, MIKO, CHF * CCM following * unable to wean off BiPAP * follow up w pulm as outpt 2. AECOPD * changed to prednisone from methylpred * BDs 3. Pneumococcal pneumonia * + urinary antigen and Cx positive for alpha hemolytic strep * continue CTX * pulm toilet 4. Anemia * chronic * transfused 2 units PRBCs during this admission * heme positive stools * had colonoscopy on 12/12, which showed hemorroids at that time * had EGD on 07/28/18 which was normal * DW Dr. Rubio, advised holding off on any endoscopy at this time. Particularlly since he had relatively normal endoscopy relatively recently, but also he ought be in better physical condition * Iron has been low, but ferritin high, therefor, not iron-deficient. * complicated by clopidogrel, and it is unclear why he is on it, change to ASA 5. pAfib * controlled on metoprolol and dilt * given then anemia and heme positive stools, hold off on oral anticoagulants for now. 6. Acute HFpEF * EF 60% from 08/21/17 * Weight up to 158kg, was 144 in December * continue spironolactone, metolazone * start IV lasix. * recheck echo to rebekah for any changes in the past 18mo 7. VTE prophylaxis: SCDs Code Visit Inpatient E&M: 52125 Subs Hosp L2
[2019-03-09 17:15] LABS: Bedside Glucose 388 mg/dL (70-110)
[2019-03-09] MEDS: Doxazosin 4 MG Tablet 8 MG PO (21:06)
[2019-03-09] MEDS: Atorvastatin Calcium 40 MG Tablet PO (21:09)
[2019-03-09 21:20] LABS: Bedside Glucose 403 mg/dL (70-110)
[2019-03-10] VITALS (22 sets, daily range): BP systolic 134–151; BP diastolic 51–76; PULSE 51–63; RESP 12–24; TEMP 36.4–36.8; O2SAT 94–100
[2019-03-10] MEDS: Ipratropium/Albuterol Sulfate 3 ML AMPUL.NEB INHALATION ×6 (03:41→22:29)
[2019-03-10] MEDS: Insulin Lispro 100 UNIT/ML INSULN.PEN SC ×4 (06:41→21:20)
[2019-03-10 06:51] LABS: Bedside Glucose 221 mg/dL (70-110)
[2019-03-10 07:04] LABS: Anion Gap 7 (5-15); BUN 55 mg/dL (7-18); BUN/Creat Ratio 39.9 RATIO (10-20); Calcium,Total 8.4 mg/dL (8.5-10.1); Chloride 94 mmol/L (98-107); Creatinine, Serum 1.38 mg/dL (0.70-1.30); EST Glomerular Filtration Rate 53 mL/min (>60); Est Glom Filt Rate - Afr Amer 64 mL/min (>60); Estimated Creatinine Clearance 44.06 ml/min; Glucose 270 mg/dL (74-106); Potassium 4.9 mmol/L (3.5-5.1); Sodium Level 135 mmol/L (136-145)
[2019-03-10] MEDS: Metoprolol Tartrate 50 MG Tablet PO ×2 (08:46→21:20)
[2019-03-10] MEDS: predniSONE 20 MG Tablet 40 MG PO (08:46)
[2019-03-10] MEDS: Allopurinol 300 MG Tablet PO (08:46)
[2019-03-10] MEDS: Iron Polysaccharide Complex 150 MG CAPSULE PO (08:46)
[2019-03-10] MEDS: Spironolactone 25 MG Tablet PO (08:46)
[2019-03-10] MEDS: Metolazone 2.5 MG Tablet PO (08:46)
[2019-03-10] MEDS: Sertraline 100 MG Tablet PO (08:46)
[2019-03-10] MEDS: Pantoprazole Sodium 40 MG Tablet PO (08:47)
[2019-03-10] MEDS: guaiFENesin 1,200 MG Tablet 1200 MG PO ×2 (08:47→21:21)
[2019-03-10] MEDS: Aspirin 81 MG TAB.CHEW PO (08:47)
[2019-03-10] MEDS: dilTIAZem CD 240 MG Capsule PO (08:47)
[2019-03-10] MEDS: Magnesium Oxide 400 MG Tablet PO (08:47)
[2019-03-10] MEDS: Finasteride 5 MG Tablet PO (08:48)
[2019-03-10] MEDS: Furosemide 40 MG/4 ML Vial IV ×2 (08:50→17:34)
[2019-03-10] MEDS: Ceftriaxone 1 GM/50 ML BAG IV (08:50)
[2019-03-10] MEDS: Nystatin Powder 15gm Bottle 1 APPLIC TOPICAL ×2 (08:58→21:21)
[2019-03-10] MEDS: Menthol/Lanolin/Calamine/Znox 113 GM Tube 1 APPLIC TOPICAL (08:59)
--- NOTE | 2019-03-10 10:35 | CASEMGMT ---
[facility] faxed updates to [facility] letting them know he will not be discharged today. Plan: [facility] at [place] under skilled level of care. Brooke REYES MSW
[2019-03-10 11:46] LABS: Bedside Glucose 250 mg/dL (70-110)
--- NOTE | 2019-03-10 13:25 | PN_ITS ---
Patient Problems: Active and Suspected Problems (Last Reviewed 12/08/18 @ 03:44 by Garrett Whitley MD) Acute on chronic diastolic heart failure (Acute) Subjective: breathing better. placed back on BiPAP last night. breathing ok without it currently. Vitals/I&O's: Vital Signs Temp Pulse Resp BP Pulse Ox 36.8 C 57 L 19 H 149/76 H 95 03/10/19 08:35 03/10/19 11:18 03/10/19 10:36 03/10/19 08:35 03/10/19 08:43 Oxygen Flow Rate (L/min) 3.5 Oxygen Delivery Method Nasal Cannula Weight: 157.9 kg Body Mass Index (BMI) 52.3 Finger Stick Blood Glucose 171 Intake and Output for Last 24 Hours 03/08/19 03/09/19 03/10/19 23:59 23:59 23:59 Intake Total 810 / 1290 1370 / 1370 540 / 540 Output Total 1875 / 2675 3600 / 3600 2300 / 2300 Balance -1065 / -1385 -2230 / -2230 -1760 / -1760 General: Alert, No apparent distress HEENT: Atraumatic, Normocephalic Oral: Moist Mucosa, No Gingival or Mucosal Lesions/ Ulcerations Neck: No Nodes, Trachea Midline Lungs: Normal air movement, - - coarse breath sounds bilaterally. Cardiovascular: Regular rate, Regular Rhythm, Normal S1, Normal S2 Abdomen: Bowel Sounds Present, Soft, Non Tender, Non-Distended, No Hepato- splenomegaly Extremities: No Calf Tenderness, Edema Skin: No rashes, No breakdown Musculoskeletal: No Tenderness to Palpation of Joints or Extremities, No Muscle Wasting Psych/Mental Status: Normal Affect, Appropriate Microbiology Past 72 Hours 03/05/19 20:05 Blood Culture (Wb) - Anticubital Left Blood Culture - Preliminary No growth in 48 hours. 03/05/19 18:51 Blood Culture (Wb) - Anticubital Right Blood Culture - Preliminary No growth in 48 hours. 03/05/19 23:50 Sputum, Expectorated/Coughed Gram Stain - Final 03/05/19 23:50 Sputum, Expectorated/Coughed Respiratory Culture - Final 03/05/19 20:00 Urine Catheter - Andrews Urine Culture - Final Serratia fonticola Laboratory Results 03/06/19 07:45: Crossmatch See Detail 03/09/19 17:05: POC Glucose 388 H 03/09/19 21:00: POC Glucose 403 H 03/10/19 05:05: Sodium 135 L, Potassium 4.9, Chloride 94 L, Carbon Dioxide 34.0 H, Anion Gap 7, BUN 55 H, Creatinine 1.38 H, Estim Creat Clear Calc 44.06, Est GFR (MDRD) Af Amer 64, Est GFR (MDRD) Non-Af 53 L, BUN/Creatinine Ratio 39.9 H, Glucose 270 H, Calcium 8.4 L 03/10/19 06:36: POC Glucose 221 H 03/10/19 11:33: POC Glucose 250 H Current Medications Acetaminophen (Tylenol) 1,000 mg PO Q6H PRN PRN PRN Reason: Pain Score 1-3/10 Last Admin: 03/09/19 21:10 Dose: 1,000 mg Documented by: Albuterol Sulfate (Ventolin Aerosols) 2.5 mg INHALATION Q2H PRN PRN PRN Reason: SHORTNESS OF BREATH Albuterol/Ipratropium (Duoneb) 3 ml INHALATION Q4H.RT [facility] Last Admin: 03/10/19 10:32 Dose: 3 ml Documented by: Allopurinol (Zyloprim) 300 mg PO DAILY [facility] Last Admin: 03/10/19 08:46 Dose: 300 mg Documented by: Aspirin (Aspirin, Baby) 81 mg PO DAILY@0800 [facility] Last Admin: 03/10/19 08:47 Dose: 81 mg Documented by: Atorvastatin Calcium (Lipitor) 40 mg PO QHS [facility] Last Admin: 03/09/19 21:09 Dose: 40 mg Documented by: Calamine/Phenol (Calmoseptine Ointment) 1 applic TOPICAL BID [facility]; Protocol Last Admin: 03/10/19 08:59 Dose: 1 applicatio Documented by: Dextrose (D50w Syringe) 0 gm IV X1 PRN; Protocol PRN Reason: Hypoglycemia Diltiazem HCl (Cardizem Cd) 240 mg PO DAILY [facility] Last Admin: 03/10/19 08:47 Dose: 240 mg Documented by: Doxazosin Mesylate (Cardura) 8 mg PO QHS [facility] Last Admin: 03/09/19 21:06 Dose: 8 mg Documented by: Finasteride (Proscar) 5 mg PO DAILY [facility] Last Admin: 03/10/19 08:48 Dose: 5 mg Documented by: Furosemide (Lasix) 40 mg IV BID@1000,1800 [facility] Last Admin: 03/10/19 08:50 Dose: 40 mg Documented by: Glucagon () 1 mg IM .X1 PRN PRN Reason: Hypoglycemia Guaifenesin (Mucinex) 1,200 mg PO BID [facility] Last Admin: 03/10/19 08:47 Dose: 1,200 mg Documented by: Ceftriaxone Sodium (Rocephin) 1 gm in 50 mls @ 100 mls/hr IV Q24 [facility] Last Infusion: 03/10/19 09:35 Dose: Infused Documented by: Insulin Glargine (Lantus (Bk)) 10 units SC BREAKFAST [facility] Last Admin: 03/10/19 08:57 Dose: 10 u Documented by: Insulin Glargine (Lantus (Bk)) 10 units SC QHS [facility] Last Admin: 03/09/19 21:08 Dose: 10 u Documented by: Insulin Human Lispro (Humalog Kwikpen ([facility])) 0 unit SC ACHS [facility]; Protocol Last Admin: 03/10/19 11:38 Dose: 4 units Documented by: Magnesium Oxide (Mag-Ox 400) 400 mg PO DAILY [facility] Last Admin: 03/10/19 08:47 Dose: 400 mg Documented by: Metolazone (Zaroxolyn) 2.5 mg PO DAILY [facility] Last Admin: 03/10/19 08:46 Dose: 2.5 mg Documented by: Metoprolol Tartrate (Lopressor (Beta Kristel)) 50 mg PO BID [facility] Last Admin: 03/10/19 08:46 Dose: 50 mg Documented by: Multi-Ingredient Cream (Eucerin) 1 applic TOPICAL 0600,2200 [facility]; Protocol Last Admin: 03/10/19 06:40 Dose: Not Given Documented by: Nitroglycerin (Nitrostat) 0.4 mg SUBLINGUAL Q5M PRN PRN Reason: CARDIAC/CHEST PAIN Nystatin (Mycostatin Powder) 1 applic TOPICAL BID [facility]; Protocol Last Admin: 03/10/19 08:58 Dose: 1 applicatio Documented by: Pantoprazole Sodium (Protonix) 40 mg PO DAILY [facility] Last Admin: 03/10/19 08:47 Dose: 40 mg Documented by: Polysaccharide Iron [facility] ([facility] 150[facility] Last Admin: 03/10/19 08:46 Dose: 150 mg Documented by: Prednisone () 40 mg PO DAILY@0800 [facility] Last Admin: 03/10/19 08:46 Dose: 40 mg Documented by: Prochlorperazine Edisylate (Compazine Iv) 5 mg IV Q4H PRN PRN PRN Reason: Breakthrough Nausea/Vomiting Sertraline HCl (Zoloft) 100 mg PO DAILY [facility] Last Admin: 03/10/19 08:46 Dose: 100 mg Documented by: Sodium Chloride () 5 - 15 ml IV UD PRN PRN Reason: SALINE FLUSH Last Admin: 03/09/19 17:05 Dose: 10 ml Documented by: Spironolactone (Aldactone) 25 mg PO DAILY [facility] Last Admin: 03/10/19 08:46 Dose: 25 mg Documented by: STROKE Vital Signs/Narrative: Vital Signs Pulse Resp 03/10/19 11:18 57 L 03/10/19 10:36 52 L 19 H Medical Necessity - Tobacco Use Smoking Status: Former smoker Assessment/Plan All Active Problems (Last Reviewed 12/08/18 @ 03:44 by Garrett Whitley MD) New onset a-fib (Acute) Debility (Acute) Acute on chronic diastolic heart failure (Acute) History of repair of thoracic aortic aneurysm (Resolved 12/11/09) H/O aortic valve replacement (Resolved 12/11/09) Acute on chronic respiratory failure with hypoxia and hypercapnia (Resolved) Bilateral lower leg cellulitis (Resolved) CAP (community acquired pneumonia) (Resolved) CHF exacerbation (Resolved) Hyperkalemia (Resolved) Hypoglycemia (Resolved) Hypoglycemia (Resolved) Hypomagnesemia (Resolved) Hyponatremia (Resolved) Pulmonary embolism on right (Resolved) Shortness of breath (Resolved) Tobacco abuse (Resolved) Wheezing (Resolved) 1. acute hypoxic and hypercapnic respiratory failure. * improving overall * multifactorial: 2/2 AECOPD, Pneumococcal pneumonia, MIKO, CHF * CCM following * doing well off of BiPAP so far today * BiPAP w sleep and naps * follow up w pulm as outpt 2. AECOPD * changed to prednisone from methylpred. pred taper over 12-14 days * BDs 3. Pneumococcal pneumonia * + urinary antigen and Cx positive for alpha hemolytic strep * continue CTX * pulm toilet 4. Anemia * chronic, currently stable * transfused 2 units PRBCs during this admission * heme positive stools * had colonoscopy on 12/12, which showed hemorroids at that time * had EGD on 07/28/18 which was normal * DW Dr. Rubio, advised holding off on any endoscopy at this time. Particularlly since he had relatively normal endoscopy relatively recently, but also he ought be in better physical condition * Iron has been low, but ferritin high, therefor, not iron-deficient. * complicated by clopidogrel, and it is unclear why he is on it, changed to ASA 5. pAfib * controlled on metoprolol and dilt * given then anemia and heme positive stools, hold off on oral anticoagulants for now. 6. Acute HFpEF * EF 60% from 08/21/17 * Weight up to 158kg, was 144 in December * continue spironolactone, metolazone * start IV lasix. * recheck echo to eval for any changes in the past 18mo 7. VTE prophylaxis: SCDs Code Visit Inpatient E&M: 86832 Subs Hosp L2
--- NOTE | 2019-03-10 15:29 | PCM.PN.PUL ---
Patient Problems: Active and Suspected Problems (Last Reviewed 12/08/18 @ 03:44 by Garrett Whitley MD) Acute on chronic diastolic heart failure (Acute) Subjective: Patient overall feels subjectively improved compared to previous. Patient has continued to receive diuresis and is tolerating this well. Patient denies any chest pain. Patient is still having an intermittent cough. Patient has been tolerating nasal cannula during the day. - Physical Exam General: Alert, Oriented x3, Cooperative, No apparent distress, Well developed, Well nourished, - - Morbidly obese. No conversational dyspnea. HEENT: Atraumatic, PERRLA, EOMI, Normocephalic, - - No scleral icterus or injection noted Oral: Moist Mucosa, No Gingival or Mucosal Lesions/ Ulcerations Neck: Supple, No Nodes, Trachea Midline, JVD, Right Lungs: No rhonchi, No wheeze, Diminished, Rales, - - Distant breath sounds. Cardiovascular: Regular rate, Normal S1, Normal S2, No murmurs, No rub noted, No Gallop Abdomen: Bowel Sounds Present, Soft, Non Tender, Non-Distended, Obese, Hernia Extremities: No cyanosis, Diminished Peripheral Pulses, Edema - Slightly improved Skin: - - No change from previous Musculoskeletal: No Tenderness to Palpation of Joints or Extremities Lymphatic: No Cervical, Supraclavicular, or Inguinal Adenopathy Neurological: Cranial nerves II-XII grossly intact, Neuro grossly intact, Sensory exam intact to light touch and pain Psych/Mental Status: Alert and oriented to time, place, person, mood and affect Vital Signs Temp Pulse Resp BP Pulse Ox 36.6 C 62 22 H 150/56 H 96 03/10/19 14:59 03/10/19 14:59 03/10/19 14:59 03/10/19 14:59 03/10/19 14:59 Oxygen Flow Rate (L/min) 3.5 Oxygen Delivery Method Nasal Cannula Weight: 157.9 kg Body Mass Index (BMI) 52.3 Finger Stick Blood Glucose 171 Intake and Output for Last 24 Hours 03/08/19 03/09/19 03/10/19 23:59 23:59 23:59 Intake Total 810 / 1290 1370 / 1370 540 / 540 Output Total 1875 / 2675 3600 / 3600 2300 / 2300 Balance -1065 / -1385 -2230 / -2230 -1760 / -1760 Microbiology Past 72 Hours 03/05/19 20:05 Blood Culture - Preliminary Blood Culture (Wb) - Anticubital Left No growth in 48 hours. 03/05/19 18:51 Blood Culture - Preliminary Blood Culture (Wb) - Anticubital Right No growth in 48 hours. 03/05/19 23:50 Gram Stain - Final Sputum, Expectorated/Coughed Respiratory Culture - Final Laboratory Tests Past 24 Hrs 03/06/19 03/10/19 07:45 05:05 Sodium 135 L Potassium 4.9 Chloride 94 L Carbon Dioxide 34.0 H Anion Gap 7 BUN 55 H Creatinine 1.38 H Estim Creat Clear Calc 44.06 Est GFR (MDRD) Af Amer 64 Est GFR (MDRD) Non-Af 53 L BUN/Creatinine Ratio 39.9 H Glucose 270 H Calcium 8.4 L Crossmatch See Detail POC Glucose 03/10/19 03/10/19 03/09/19 11:33 06:36 21:00 POC Glucose 250 H 221 H 403 H 03/09/19 17:05 POC Glucose 388 H Medical Necessity - Tobacco Use Smoking Status: Former smoker Assessment/Plan All Active Problems (Last Reviewed 12/08/18 @ 03:44 by Garrett Whitley MD) New onset a-fib (Acute) Debility (Acute) Acute on chronic diastolic heart failure (Acute) History of repair of thoracic aortic aneurysm (Resolved 12/11/09) H/O aortic valve replacement (Resolved 12/11/09) Acute on chronic respiratory failure with hypoxia and hypercapnia (Resolved) Bilateral lower leg cellulitis (Resolved) CAP (community acquired pneumonia) (Resolved) CHF exacerbation (Resolved) Hyperkalemia (Resolved) Hypoglycemia (Resolved) Hypoglycemia (Resolved) Hypomagnesemia (Resolved) Hyponatremia (Resolved) Pulmonary embolism on right (Resolved) Shortness of breath (Resolved) Tobacco abuse (Resolved) Wheezing (Resolved) RECOMMENDATIONS: 1. Continue BiPAP therapy as tolerated. Wean oxygen as tolerated. 2. Continue bronchodilators. Continue prednisone therapy and wean over 12 to 14 days 3. Agree with aggressive diuresis 4. Continue ceftriaxone as ordered to complete antibiotic course. 5. Transfuse blood products if repeat hemoglobin is less than 7 g/dL. 6. Close outpatient pulmonary follow-up after discharge is recommended. IMPRESSIONS: 1. Acute on chronic combined respiratory failure, likely secondary to COPD exacerbation due to pneumococcal pneumonia The patient has a baseline supplemental oxygen requirement of 3 to 4 L along with underlying obstructive lung disease, for which he has been prescribed a triple therapy inhaler regimen in the past. The patient has essentially been noncompliant with outpatient pulmonary follow-up. Patient does have a pneumococcal pneumonia and is on appropriate antibiotics at this time. Did stress the need for BiPAP with any sleep to avoid hypoxemic complications. Patient transitioned to prednisone therapy. This can be weaned over the next 12 to 14 days. Need for BiPAP appears to improve with diuresis. Patient may benefit from additional diuretic therapy 2. Anemia The patient did have a colonoscopy performed in November 2018 which revealed internal and external hemorrhoids along with transverse colon polyps. While the patient did receive supplemental IV fluids on presentation, his hemoglobin this morning was noted to be 6.9 g/dL. A repeat H&H is currently pending. If the patient's hemoglobin is truly less than 7 g/dL, I would recommend transfusing packed red blood cells. Continue PPI therapy. Surgery is suggesting an EGD. Patient recently had a colonoscopy. 3. Chronic heart failure with preserved ejection fraction/status post aortic valve replacement/atrial fibrillation Diuretics currently in place and patient is tolerating well. Cardiology consultation is suggestive of underlying pneumonia as the primary process. Would defer diuretic recommendations to cardiology, but patient does have an increase in weight daily. 4. Known history of obstructive sleep apnea The patient has a known history of obstructive sleep apnea, for which he is prescribed outpatient BiPAP therapy. However, despite the patient's insistence that he utilizes his BiPAP, prior office visits during which time his compliance report was reviewed, clearly indicated that the patient was not utilizing his nocturnal Pap therapy as prescribed. This was confirmed by the family during my evaluation. Patient appears to have responded well to BiPAP overnight while in the hospital. This should be continued with any ECF placement. Continue with any sleep. 5. Morbid obesity/history of medical noncompliance/hypertension/hyperlipidemia/diabetes mellitus/GERD Complicates care, management, recovery and prognosis. Continue home medications as indicated. Recommend physical therapy evaluation. Code Visit Inpatient E&M: 61201 Subs Hosp L2
[2019-03-10 16:40] LABS: Bedside Glucose 327 mg/dL (70-110)
[2019-03-10] MEDS: 0.9% NaCl Peripheral Flush Adult/Peds IV (17:34)
[2019-03-10] MEDS: Doxazosin 4 MG Tablet 8 MG PO (21:19)
[2019-03-10] MEDS: Atorvastatin Calcium 40 MG Tablet PO (21:20)
[2019-03-11] VITALS (9 sets, daily range): BP systolic 120–132; BP diastolic 55–83; PULSE 49–66; RESP 16–20; TEMP 36.3–36.6; O2SAT 97–99
[2019-03-11 00:36] LABS: Bedside Glucose 359 mg/dL (70-110)
[2019-03-11] MEDS: Ipratropium/Albuterol Sulfate 3 ML AMPUL.NEB INHALATION ×3 (03:06→10:56)
[2019-03-11 06:46] LABS: Anion Gap 3 (5-15); BUN 54 mg/dL (7-18); BUN/Creat Ratio 42.9 RATIO (10-20); Calcium,Total 8.3 mg/dL (8.5-10.1); Chloride 91 mmol/L (98-107); Creatinine, Serum 1.26 mg/dL (0.70-1.30); EST Glomerular Filtration Rate 59 mL/min (>60); Est Glom Filt Rate - Afr Amer 72 mL/min (>60); Estimated Creatinine Clearance 48.25 ml/min; Glucose 238 mg/dL (74-106); Potassium 4.7 mmol/L (3.5-5.1); Sodium Level 133 mmol/L (136-145)
[2019-03-11] MEDS: Insulin Lispro 100 UNIT/ML INSULN.PEN SC ×2 (06:59→11:46)
[2019-03-11 07:05] LABS: Bedside Glucose 230 mg/dL (70-110)
[2019-03-11] MEDS: Magnesium Oxide 400 MG Tablet PO (08:31)
[2019-03-11] MEDS: Spironolactone 25 MG Tablet PO (08:31)
[2019-03-11] MEDS: Sertraline 100 MG Tablet PO (08:31)
[2019-03-11] MEDS: Iron Polysaccharide Complex 150 MG CAPSULE PO (08:31)
[2019-03-11] MEDS: dilTIAZem CD 240 MG Capsule PO (08:31)
[2019-03-11] MEDS: Metoprolol Tartrate 50 MG Tablet PO (08:31)
[2019-03-11] MEDS: Metolazone 2.5 MG Tablet PO (08:31)
[2019-03-11] MEDS: guaiFENesin 1,200 MG Tablet 1200 MG PO (08:32)
[2019-03-11] MEDS: Allopurinol 300 MG Tablet PO (08:32)
[2019-03-11] MEDS: Pantoprazole Sodium 40 MG Tablet PO (08:32)
[2019-03-11] MEDS: predniSONE 20 MG Tablet 40 MG PO (08:32)
[2019-03-11] MEDS: Aspirin 81 MG TAB.CHEW PO (08:32)
[2019-03-11] MEDS: Finasteride 5 MG Tablet PO (08:32)
[2019-03-11] MEDS: Nystatin Powder 15gm Bottle 1 APPLIC TOPICAL (08:37)
[2019-03-11] MEDS: Furosemide 40 MG/4 ML Vial IV (08:38)
[2019-03-11] MEDS: Ceftriaxone 1 GM/50 ML BAG IV (08:38)
[2019-03-11] MEDS: 0.9% NaCl Peripheral Flush Adult/Peds IV (08:39)
--- NOTE | 2019-03-11 08:41 | PCM.TXEXTCAR ---
- Diet 03/08/19 07:09 Diet: Cardiac: Calorie-Controlled Is pt able to select menu?: Yes How many daily calories?: 1800 calorie - Routine Orders/Code Status O2 Liters per Minute: 3.5 O2 Frequency: Continuous Keep PO Greater than or Equal to (%): 91 Routine Lab Work: BMP - weekly Code Status: Full Code - Wound(s) LEFT BUTTOCK Wound Type: Pressure Injury BILATERAL LEGS Wound Type: Stasis Ulcer Left Leg Wound Type: Stasis Ulcer Dressing Change: Adaptic Right Leg Wound Type: Stasis Ulcer Dressing Change: Adaptic - Suggestions for Active Care Times a day to sit in chair: 3 - Therapies Weight Bearing: Full weight bearing Physical Therapy: Eval and Treat Occupational Therapy: Eval and Treat - Allergies/Procedures Done in Hospital Allergies/Adverse Reactions: Allergies naphazoline HCl [From Naphcon] Allergy (Severe, Verified 03/05/19 18:48) affected his breathing AFFECTED HIS BREATHING amlodipine besylate [From Norvasc] Allergy (Verified 03/05/19 18:48) Other dextromethorphan Allergy (Verified 03/05/19 18:48) Other levofloxacin [From Levaquin] Adverse Reaction (Mild, Verified 03/05/19 18:48) made me hyperactive made me hyperactive Procedures: 2-D Echocardiogram - Type of Care/Length of Stay Estimated LOS: Convalescent Care Less Than 30 days Type of Care Needed: Skilled Rehab Potential: Fair Prognosis: Fair - Additional Orders/Day of Discharge Additional Orders: BIPAP QHS and with naps Day of Discharge: 03/11/19 - Dietary and Speech Recommendations Dietitian Recommendations/Changes: Rec CHO controlled, cardiac, low sodium diet w/ fluid restriction as indicated. Rec 1 packet Rafael BID for skin healing. - Follow Up Care Primary Care Physician: Jack Verdugo MD [Primary Care Provider] - Within 2 Weeks Please Follow Up With: Wesley Altman NP-C - cardiology When: 06/30/2019 scheduled. Call for earlier appointment Please Follow Up With: Hemanth Joyner MD - pulmonology When: 4-6 weeks Please Follow Up With: Sly Rubio MD - general surgery for evaluation of anemia When: 1-2 months
--- NOTE | 2019-03-11 08:46 | DS.PCM_ITS ---
Discharge Date and Diagnosis Date of Admission: 03/05/19 Date of Discharge: 03/11/19 - Primary Discharge Diagnosis 1. acute hypoxic and hypercapnic respiratory failure. 2. AECOPD 3. Pneumococcal pneumonia 4. Anemia 5. pAfib 6. Acute HFpEF 7. Serratia UTI 8. Severe sepsis - Secondary Discharge Diagnosis Chronic Problems (Last Reviewed 12/08/18 @ 03:44 by Garrett Whitley MD) COPD with exacerbation (Chronic) Pickwickian syndrome (Chronic) Iron deficiency anemia (Chronic) etology unknown COPD (chronic obstructive pulmonary disease) (Chronic) Obstructive sleep apnea (Chronic) Super obesity (Chronic) Hypertension (Chronic) Thoracic aortic aneurysm (Chronic) Lymphedema (Chronic) Gout (Chronic) BPH (benign prostatic hyperplasia) (Chronic) Hypomagnesemia (Chronic) Diabetes mellitus (Chronic) CHF exacerbation (Chronic) Chronic respiratory failure with hypoxia and hypercapnia (Chronic) Essential (primary) hypertension (Chronic) Chronic diastolic heart failure (Chronic) Thoracic aortic aneurysm without rupture (Chronic) 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 Patient was admitted to stepdown and then to the ICU started on a BiPAP. Patient had atrial for ablation with RVR as well as heart failure and pneumococcal pneumonia. Patient slowly did improve with antibiotics, steroids and diuresis. Patient's weight is better but still far from his dry weight which is around 144 kg. Currently is around 156. Patient advised that it can take a while to fully diurese him down to his dry weight. 1. acute hypoxic and hypercapnic respiratory failure. * improving overall * multifactorial: 2/2 AECOPD, Pneumococcal pneumonia, MIKO, CHF * CCM following * doing well off of BiPAP so far today * BiPAP w sleep and naps * follow up w pulm as outpt 2. AECOPD * changed to prednisone from methylpred. pred taper over 12-14 days * BDs 3. Pneumococcal pneumonia * + urinary antigen and Cx positive for alpha hemolytic strep * change to PO LVQ for the , to complete a 7 day course of abx. * pulm toilet 4. Anemia * chronic, currently stable * transfused 2 units PRBCs during this admission * heme positive stools * had colonoscopy on 12/12, which showed hemorroids at that time * had EGD on 07/28/18 which was normal * DW Dr. Rubio, advised holding off on any endoscopy at this time. Particularlly since he had relatively normal endoscopy relatively recently, but also he ought be in better physical condition * Iron has been low, but ferritin high, therefor, not iron-deficient. * complicated by clopidogrel, and it is unclear why he is on it, changed to ASA 5. pAfib * controlled on metoprolol and dilt * given then anemia and heme positive stools, hold off on oral anticoagulants for now. * aspirin * follow up with cardiology as outpt. 6. Acute HFpEF * EF 55% * Weight up to 158kg, was 144 in December * continue spironolactone, metolazone * change furosemide to 40 PO BID. given the patient is already on spironolactone will avoid potassium replacement at this time. BMP will need to be followed up to see if potassium replacement would be necessary. 7. Severe sepsis: Secondary to pneumonia as well as UTI. 8. Serratia UTI: Levaquin for on the to complete a 7 day course of abx.[] - Physical Exam General: Alert, No apparent distress HEENT: Atraumatic, Normocephalic Oral: Moist Mucosa, No Gingival or Mucosal Lesions/ Ulcerations Neck: No Nodes, Trachea Midline Lungs: Clear to auscultation, Diminished Cardiovascular: Regular rate, Regular Rhythm, Normal S1, Normal S2 Abdomen: Bowel Sounds Present, Soft, Non Tender, Non-Distended, Obese Extremities: No Calf Tenderness, Edema Vital Signs Temp Pulse Resp BP Pulse Ox 36.6 C 66 20 H 120/83 H 97 03/11/19 08:27 03/11/19 08:31 03/11/19 08:27 03/11/19 08:27 03/11/19 08:27 Oxygen Flow Rate (L/min) 2 Oxygen Delivery Method Nasal Cannula Weight: 152.3 kg Body Mass Index (BMI) 52.3 Finger Stick Blood Glucose 171 Intake and Output for Last 24 Hours 03/09/19 03/10/19 03/11/19 23:59 23:59 23:59 Intake Total 1370 / 1370 1585 / 1585 0 / 0 Output Total 3600 / 3600 5050 / 5050 1300 / 1300 Balance -2230 / -2230 -3465 / -3465 -1300 / -1300 Microbiology Past 72 Hours 03/05/19 18:51 Blood Culture - Preliminary Blood Culture (Wb) - Anticubital Right No growth in 48 hours. 03/05/19 20:05 Blood Culture - Final Blood Culture (Wb) - Anticubital Left No growth in 5 days. 03/05/19 23:50 Gram Stain - Final Sputum, Expectorated/Coughed Respiratory Culture - Final Laboratory Tests Past 24 Hrs 03/11/19 06:23 Sodium 133 L Potassium 4.7 Chloride 91 L Carbon Dioxide 39.0 H Anion Gap 3 L BUN 54 H Creatinine 1.26 Estim Creat Clear Calc 48.25 Est GFR (MDRD) Af Amer 72 Est GFR (MDRD) Non-Af 59 L BUN/Creatinine Ratio 42.9 H Glucose 238 H Calcium 8.3 L POC Glucose 03/11/19 03/10/19 03/10/19 06:56 21:16 16:27 POC Glucose 230 H 359 H 327 H 03/10/19 11:33 POC Glucose 250 H Discharge Diet: 1800 Calorie Control Diet, 6 Cup Fluid Restriction, 2000 mg Sodium Diet Discharge Activity: Return to Normal Activity Call your doctor if you observe: Shortness of breath, Chest pain Home Medications: Medications to take at Discharge Allopurinol [Zyloprim] 300 mg PO DAILY 06/15/18 Finasteride [Proscar] 5 mg PO DAILY 06/15/18 Magnesium 250 mg PO BID 06/15/18 Metolazone [Zaroxolyn] 2.5 mg PO DAILY 06/15/18 Metoprolol Tartrate [Lopressor (beta maryam)] 50 mg PO BID 06/15/18 Sertraline HCl [Zoloft] 100 mg PO DAILY 06/15/18 Spironolactone [Aldactone] 25 mg PO BID 06/15/18 Atorvastatin Calcium 40 mg PO QHS 12/07/18 Losartan Potassium 100 mg PO DAILY 12/07/18 Terazosin HCl 10 mg PO QHS 12/07/18 Budesonide/Formoterol 160/4.5 [Symbicort 160/4.5 Mcg Inhaler (SP)] 2 puff INHALATION BID 12/13/18 Glimepiride [Amaryl] 2 mg PO DAILY 12/13/18 Nystatin Powder [Mycostatin Powder] 1 applic TOPICAL BID 12/13/18 Acetaminophen [Tylenol] 1,000 mg PO Q6H PRN PRN tab 01/03/19 Iron Polysaccharide Complex [Ferrex 150] 150 mg PO DAILYCM #30 cap 01/03/19 Menthol/Lanolin/Calamine/Znox [Calmoseptine Ointment] 1 applic TOPICAL BID tube 01/03/19 Mineral Oil/Petrolatum,White [Eucerin] 1 applic TOPICAL 0600,2200 jar 01/03/19 Pantoprazole Sodium [Protonix] 40 mg PO DAILY #30 tab 01/03/19 Docusate Sodium 100 mg PO DAILY PRN 02/01/19 Albuterol Aerosols [Ventolin Aerosols] 2.5 mg INHALATION Q2H PRN PRN vial.neb. 03/11/19 Aspirin [Aspirin, Baby] 81 mg PO DAILY@0800 tab.chew 03/11/19 Diltiazem CD [Cardizem CD] 240 mg PO DAILY cap 03/11/19 Furosemide 40 mg PO BID #1 tab 03/11/19 Guaifenesin [Mucinex] 1,200 mg PO BID 5 Days tab 03/11/19 Insulin Glargine [Lantus SoloStar Pen] 15 units SUBCUT BREAKFAST pen 03/11/19 Insulin Glargine [Lantus SoloStar Pen] 15 units SUBCUT QHS pen 03/11/19 Insulin Lispro [Humalog KwikPen] See Protocol SUBCUT ACHS insuln.pen 03/11/19 Ipratropium/Albuterol Sulfate [Duoneb] 3 ml INHALATION Q4H.RT ampul.neb 03/11/19 Prednisone 10 mg PO DAILY #22 tab.ds.pk 03/11/19 levoFLOXacin tablet [Levaquin tablet] 750 mg PO DAILY #1 tab 03/11/19 Following Prescrptions Were Given to Patient: Furosemide 40 mg PO BID #1 tab levoFLOXacin tablet [Levaquin tablet] 750 mg PO DAILY #1 tab Prednisone 10 mg PO DAILY #22 tab.ds.pk Primary Care Physician: Jack Verdugo MD [Primary Care Provider] - Within 2 Weeks Please Follow Up With: Wesley Altman NP-C - cardiology When: 06/30/2019 scheduled. Call for earlier appointment Please Follow Up With: Hemanth Joyner MD - pulmonology When: 4-6 weeks Please Follow Up With: Sly Rubio MD - general surgery for evaluation of anemia When: 1-2 months Disposition: Longterm facility Minutes spent on discharge:: 45 Patient Condition:: Fair Medical Necessity - Tobacco Use Smoking Status: Former smoker Meaningful Use Info Meaningful Use Diagnoses (Choose all that apply): CHF - CHF EM/ARB ordered at discharge?: Yes Documented LVEF (%): 55 Code Visit Inpatient E&M: 96522 Disch Hosp
--- NOTE | 2019-03-11 09:28 | PHA.DC.MR ---
Pharmacy Service has performed discharge medication reconciliation for this patient. Home Medications Allopurinol [Zyloprim] 300 mg PO DAILY 06/15/18 Finasteride [Proscar] 5 mg PO DAILY 06/15/18 Magnesium 250 mg PO BID 06/15/18 Metolazone [Zaroxolyn] 2.5 mg PO DAILY 06/15/18 Metoprolol Tartrate [Lopressor (beta maryam)] 50 mg PO BID 06/15/18 Sertraline HCl [Zoloft] 100 mg PO DAILY 06/15/18 Spironolactone [Aldactone] 25 mg PO BID 06/15/18 Atorvastatin Calcium 40 mg PO QHS 12/07/18 Losartan Potassium 100 mg PO DAILY 12/07/18 Terazosin HCl 10 mg PO QHS 12/07/18 Budesonide/Formoterol 160/4.5 [Symbicort 160/4.5 Mcg Inhaler (SP)] 2 puff INHALATION BID 12/13/18 Glimepiride [Amaryl] 2 mg PO DAILY 12/13/18 Nystatin Powder [Mycostatin Powder] 1 applic TOPICAL BID 12/13/18 Acetaminophen [Tylenol] 1,000 mg PO Q6H PRN PRN tab 01/03/19 Iron Polysaccharide Complex [Ferrex 150] 150 mg PO DAILYCM #30 cap 01/03/19 Menthol/Lanolin/Calamine/Znox [Calmoseptine Ointment] 1 applic TOPICAL BID tube 01/03/19 Mineral Oil/Petrolatum,White [Eucerin] 1 applic TOPICAL 0600,2200 jar 01/03/19 Pantoprazole Sodium [Protonix] 40 mg PO DAILY #30 tab 01/03/19 Docusate Sodium 100 mg PO DAILY PRN 02/01/19 Albuterol Aerosols [Ventolin Aerosols] 2.5 mg INHALATION Q2H PRN PRN vial.neb. 03/11/19 Aspirin [Aspirin, Baby] 81 mg PO DAILY@0800 tab.chew 03/11/19 Diltiazem CD [Cardizem CD] 240 mg PO DAILY cap 03/11/19 Furosemide 40 mg PO BID #1 tab 03/11/19 Guaifenesin [Mucinex] 1,200 mg PO BID 5 Days tab 03/11/19 Insulin Glargine [Lantus SoloStar Pen] 15 units SUBCUT BREAKFAST pen 03/11/19 Insulin Glargine [Lantus SoloStar Pen] 15 units SUBCUT QHS pen 03/11/19 Insulin Lispro [Humalog KwikPen] See Protocol SUBCUT ACHS insuln.pen 03/11/19 Ipratropium/Albuterol Sulfate [Duoneb] 3 ml INHALATION Q4H.RT ampul.neb 03/11/19 Prednisone 10 mg PO DAILY #22 tab.ds.pk 03/11/19 levoFLOXacin tablet [Levaquin tablet] 750 mg PO DAILY #1 tab 03/11/19 The patient's discharge medication list was reviewed for discrepancies and discrepancies were resolved.
--- NOTE | 2019-03-11 09:36 | CASEMGMT ---
Patient is ready for discharge to [facility] today. [facility] faxed orders to [facility]. [facility] called [facility] and arranged for patient to get picked up at noon via bariatric cot. [facility] notified RN, membership secretary, Geraldine at [facility], and left a message for patient's . [facility] also verified with Geraldine that they have a bi-pap for patient and they do. [facility] faxed his settings earlier this week. Plan: d/c to [facility] under skilled level of care on a convalescent stay. [facility] transported via bariatric cot. Brooke REYES OBGYN HOSPITALIST PHYSICIAN
--- NOTE | 2019-03-11 11:25 | PN_ITS ---
Patient Problems: Active and Suspected Problems (Last Updated 03/11/19 @ 10:46 by Adeola Tesfaye) Pneumococcal pneumonia (Acute 03/07/19) New onset atrial fibrillation (Acute 03/07/19) given then anemia and heme positive stools, hold off on oral anticoagulants for now 03/11/19 Subjective: Patient did okay overnight. Patient continues to report subjective improvement with diuresis. Patient has been tolerating BiPAP overnight. Blood sugars are elevated. - Physical Exam General: Alert, Oriented x3, Cooperative, No apparent distress, Well developed, Well nourished, - - Morbidly obese HEENT: Atraumatic, PERRLA, EOMI, Normocephalic, - - No scleral icterus or i njection noted Oral: Moist Mucosa, No Gingival or Mucosal Lesions/ Ulcerations Neck: Supple, No JVD, No Nodes, Trachea Midline Lungs: Clear to auscultation, No rhonchi, No wheeze, No rales, Diminished Cardiovascular: Regular rate, Normal S1, Normal S2, No murmurs, No rub noted, No Gallop Abdomen: Bowel Sounds Present, Soft, Non Tender, Non-Distended Extremities: No clubbing, No cyanosis, Edema Skin: No breakdown, - - Vascular stasis changes lower extremities Musculoskeletal: No Tenderness to Palpation of Joints or Extremities Lymphatic: No Cervical, Supraclavicular, or Inguinal Adenopathy Neurological: Cranial nerves II-XII grossly intact, Neuro grossly intact, Motor Exam 5/5 strength throughout Psych/Mental Status: Alert and oriented to time, place, person, mood and affect Vital Signs Temp Pulse Resp BP Pulse Ox 36.6 C 66 20 H 120/83 H 97 03/11/19 08:27 03/11/19 08:31 03/11/19 08:27 03/11/19 08:27 03/11/19 08:27 Oxygen Flow Rate (L/min) 2 Oxygen Delivery Method Nasal Cannula Weight: 152.3 kg Body Mass Index (BMI) 52.3 Finger Stick Blood Glucose 171 Intake and Output for Last 24 Hours 03/09/19 03/10/19 03/11/19 23:59 23:59 23:59 Intake Total 1370 / 1370 1585 / 1585 50 / 50 Output Total 3600 / 3600 5050 / 5050 1300 / 1300 Balance -2230 / -2230 -3465 / -3465 -1250 / -1250 Microbiology Past 72 Hours 03/05/19 18:51 Blood Culture - Final Blood Culture (Wb) - Anticubital Right No growth in 5 days. 03/05/19 20:05 Blood Culture - Final Blood Culture (Wb) - Anticubital Left No growth in 5 days. 03/05/19 23:50 Gram Stain - Final Sputum, Expectorated/Coughed Respiratory Culture - Final Laboratory Tests Past 24 Hrs 03/11/19 06:23 Sodium 133 L Potassium 4.7 Chloride 91 L Carbon Dioxide 39.0 H Anion Gap 3 L BUN 54 H Creatinine 1.26 Estim Creat Clear Calc 48.25 Est GFR (MDRD) Af Amer 72 Est GFR (MDRD) Non-Af 59 L BUN/Creatinine Ratio 42.9 H Glucose 238 H Calcium 8.3 L POC Glucose 03/11/19 03/10/19 03/10/19 06:56 21:16 16:27 POC Glucose 230 H 359 H 327 H 03/10/19 11:33 POC Glucose 250 H Medical Necessity - Tobacco Use Smoking Status: Former smoker Assessment/Plan All Active Problems (Last Updated 03/11/19 @ 10:46 by Adeola Tesfaye) Pneumococcal pneumonia (Acute 03/07/19) New onset atrial fibrillation (Acute 03/07/19) History of repair of thoracic aortic aneurysm (Resolved 12/11/09) H/O aortic valve replacement (Resolved 12/11/09) CHF exacerbation (Resolved) Acute on chronic respiratory failure with hypoxia and hypercapnia (Resolved) Bilateral lower leg cellulitis (Resolved) CAP (community acquired pneumonia) (Resolved) CHF exacerbation (Resolved) Hyperkalemia (Resolved) Hypoglycemia (Resolved) Hypoglycemia (Resolved) Hypomagnesemia (Resolved) Hyponatremia (Resolved) Pulmonary embolism on right (Resolved) Shortness of breath (Resolved) Tobacco abuse (Resolved) Wheezing (Resolved) RECOMMENDATIONS: 1. Continue BiPAP therapy as tolerated. Wean oxygen as tolerated. 2. Continue bronchodilators. Continue prednisone therapy and wean over 12 to 14 days 3. Agree with aggressive diuresis 4. Continue ceftriaxone as ordered to complete antibiotic course. 5. Transfuse blood products if repeat hemoglobin is less than 7 g/dL. 6. Okay to discharge from a pulmonary perspective. We will continue to diurese as tolerated. 7. Follow-up with nurse practitioner 2 weeks after discharge from the nursing facility. IMPRESSIONS: 1. Acute on chronic combined respiratory failure, likely secondary to COPD exacerbation due to pneumococcal pneumonia The patient has a baseline supplemental oxygen requirement of 3 to 4 L along with underlying obstructive lung disease, for which he has been prescribed a triple therapy inhaler regimen in the past. The patient has essentially been noncompliant with outpatient pulmonary follow-up. Patient does have a pneumococcal pneumonia and is on appropriate antibiotics at this time. Did stress the need for BiPAP with any sleep to avoid hypoxemic complications. Patient transitioned to prednisone therapy. This can be weaned over the next 12 to 14 days. Need for BiPAP appears to improve with diuresis. BiPAP at sleep indefinitely. Patient may benefit from additional diuretic therapy 2. Anemia Patient's hemoglobin has been stable throughout the hospitalization. Patient is receiving aggressive diuresis, which will help his hemoglobin. Patient reportedly would benefit from an EGD as an outpatient. No indication for repeat transfusion at this time. 3. Chronic heart failure with preserved ejection fraction/status post aortic valve replacement/atrial fibrillation Diuretics currently in place and patient is tolerating well. Cardiology consultation is suggestive of underlying pneumonia as the primary process. Would defer diuretic recommendations to cardiology, but it appears to be improving significantly with diuresis. Would likely continue until clinical signs of contraction. 4. Known history of obstructive sleep apnea The patient has a known history of obstructive sleep apnea, for which he is prescribed outpatient BiPAP therapy. However, despite the patient's insistence that he utilizes his BiPAP, prior office visits during which time his compliance report was reviewed, clearly indicated that the patient was not utilizing his nocturnal Pap therapy as prescribed. This was confirmed by the family during my evaluation. Patient appears to have responded well to BiPAP overnight while in the hospital. This should be continued with any ECF placement. Continue with any sleep. 5. Morbid obesity/history of medical noncompliance/hypertension/hyperlipidemia/diabetes mellitus/GERD Complicates care, management, recovery and prognosis. Continue home medications as indicated. Recommend physical therapy evaluation. Code Visit Inpatient E&M: 68411 Subs Hosp L2
[2019-03-11 11:46] LABS: Bedside Glucose 340 mg/dL (70-110)
--- NOTE | 2019-03-11 15:23 | PCA ---
Called and cancelled apt that was made for 03/15 with due to the patient being a resident at a intermediate, [facility].
== END 2019-03-11 12:08 | disposition skilled nursing facility (03) | DRG 871 ==
LOC: ED 21:14 → PCU 22:12
PROVIDERS: Internal Medicine; Internal Medicine Critical Care Medicine; Surgery; Admitting Provider Internal Medicine; Emergency Provider Emergency Medicine; Family Provider Internal Medicine; PCP Internal Medicine; Referring Provider Internal Medicine
DX: A40.9 Streptococcal sepsis, unspecified (principal); J96.22 Acute and chronic respiratory failure with hypercapnia; J13 Pneumonia due to Streptococcus pneumoniae; I50.33 Acute on chronic diastolic (congestive) heart failure; J96.21 Acute and chronic respiratory failure with hypoxia; E66.2 Morbid (severe) obesity with alveolar hypoventilation; Z68.43 Body mass index [BMI] 50.0-59.9, adult; J44.1 Chronic obstructive pulmonary disease with (acute) exacerbation; J44.0 Chronic obstructive pulmonary disease with (acute) lower respiratory infection; N39.0 Urinary tract infection, site not specified; I13.0 Hypertensive heart and chronic kidney disease with heart failure and stage 1 through stage 4 chronic kidney disease, or unspecified chronic kidney disease; E87.1 Hypo-osmolality and hyponatremia; N18.3 Chronic kidney disease, stage 3 (moderate); E87.5 Hyperkalemia; R65.20 Severe sepsis without septic shock; Z99.81 Dependence on supplemental oxygen; D50.9 Iron deficiency anemia, unspecified; B96.89 Other specified bacterial agents as the cause of diseases classified elsewhere; N40.0 Benign prostatic hyperplasia without lower urinary tract symptoms; I48.0 Paroxysmal atrial fibrillation; E11.40 Type 2 diabetes mellitus with diabetic neuropathy, unspecified; E11.65 Type 2 diabetes mellitus with hyperglycemia; E78.5 Hyperlipidemia, unspecified; Z95.3 Presence of xenogenic heart valve; Z79.02 Long term (current) use of antithrombotics/antiplatelets; Z79.82 Long term (current) use of aspirin; I89.0 Lymphedema, not elsewhere classified; I87.2 Venous insufficiency (chronic) (peripheral); M10.9 Gout, unspecified; Z79.4 Long term (current) use of insulin; E11.22 Type 2 diabetes mellitus with diabetic chronic kidney disease; Z95.2 Presence of prosthetic heart valve; Z87.891 Personal history of nicotine dependence; Z91.19 Patient's noncompliance with other medical treatment and regimen
CPT/HCPCS: 36415; 36600; 71045; 71046; 71275; 80048; 80053; 80061; 81001; 82274; 82728; 82803; 82962; 83036; 83540; 83550; 83605; 83735; 83880; 84100; 84443; 84484; 85014; 85018; 85025; 85027; 85610; 85730; 86850; 86900; 86901; 86920; 86922; 87040; 87070; 87077; 87086; 87088; 87186; 87205; 87449; 87633; 87640; 87641; 92610; 93005; 93306; 94002; 94003; 94640; 94667; 94668; 97110; 97162; 97166; 97530; 97802; 99251; 99285; J7030; J7040; P9016; Q9957; Q9967; A4216; C8929; G0463; J1940

== ENCOUNTER 2019-03-11 20:17 | Inpatient (IN) | payer MEDICARE, BC, SELFPAY ==
[2019-03-11] VITALS (11 sets, daily range): BP systolic 126–164; BP diastolic 56–72; PULSE 72–82; RESP 12–26; TEMP 36.7–37.2; O2SAT 86–98; BMI 52.3; BMI 53.2; BMI 53.3
--- NOTE | 2019-03-11 20:27 | RAD_ITS ---
STUDY: X-RAY CHEST REASON FOR EXAM: Male, 74 years old. Chest pain TECHNIQUE: Frontal view of the chest COMPARISON: X-ray chest March 05, 2019 FINDINGS: Sternotomy wires are present. There is no consolidation. Small bilateral effusions are present. There is no pneumothorax. The heart is enlarged. The visualized osseous structures are within normal limits. RAD/Chest 1 View (Portable) IMPRESSION: No consolidation. Small bilateral effusions. Cardiomegaly. Electronically Signed: Cali Jurado, at 21:27 EDT Tel , Service support ,
--- NOTE | 2019-03-11 20:27 | EKG12_ITS ---
Test Reason : Blood Pressure : / mmHG Vent. Rate : 073 BPM Atrial Rate : 073 BPM P-R Int : 164 ms QRS Dur : 106 ms QT Int : 420 ms P-R-T Axes : 019 006 031 degrees QTc Int : 462 ms Normal sinus rhythm Normal ECG Confirmed by DOMITILA LOGAN, NAHOMI ([id number]), primer expeditor and drier DANIELA GUTIÉRREZ ([id number]) on 03/18/2019 11:11:32 AM Referred By: Garrett Whitley Confirmed By:NAHOMI RAMESH MD
--- NOTE | 2019-03-11 20:34 | ED.DCSUM_ITS ---
History of Present Illness Chief Complaint: Shortness of Breath Informant: Patient, [employer], [facility] Onset: Today Context: Sudden Onset Timing: Continuous Quality: Hypoxia, pulse ox 50% Location: senior living Current Severity: Mild Maximum Severity: Severe Worsened by: History of COPD and CHF Relieved by: Improved with BiPAP Associated Symptoms: Productive cough Narrative: Patient is an elderly gentleman who was discharged from the hospital earlier today. He was discharged with the following diagnosis: 1. acute hypoxic and hypercapnic respiratory failure. 2. AECOPD 3. Pneumococcal pneumonia 4. Anemia 5. pAfib 6. Acute HFpEF 7. Serratia UTI 8. Severe sepsis Patient denies fever or chills. He does report cough productive of clear- colored sputum. He reports shortness of breath. Denies chest pain. He does acknowledge he has a large abdominal ventral wall hernia. He is quite well- known to the respiratory staff. He is limited since patient is in respiratory distress on BiPAP/CPAP. Prior similar symptoms: Yes Recent Illness/Hospitalization: Yes - Past Medical History (1) Pneumococcal pneumonia Status: Acute (2) New onset atrial fibrillation Status: Acute Comment: given then anemia and heme positive stools, hold off on oral anticoagulants for now 03/11/19 (3) Acute on chronic diastolic heart failure Status: Chronic (4) COPD with exacerbation Status: Chronic (5) Essential (primary) hypertension Status: Chronic (6) Hyperlipidemia Status: Chronic (7) Iron deficiency anemia Status: Chronic Comment: etology unknown (8) Lymphedema Status: Chronic (9) Pickwickian syndrome Status: Chronic (10) Thoracic aortic aneurysm Status: Chronic Past Medical History - Allergies and Home Meds Allergies/Adverse Reactions: Allergies naphazoline HCl [From Naphcon] Allergy (Severe, Verified 03/11/19 20:24) affected his breathing AFFECTED HIS BREATHING amlodipine besylate [From Norvasc] Allergy (Verified 03/11/19 20:24) Other dextromethorphan Allergy (Verified 03/11/19 20:24) Other levofloxacin [From Levaquin] Adverse Reaction (Mild, Verified 03/11/19 20:24) made me hyperactive made me hyperactive Primary Care Physician: Jack Verdugo MD [Primary Care Provider] - Prior records reviewed: Yes Surgical History: herniorrhaphy, - Lives: Residential Smoking Status: Former smoker Alcohol: None Drugs: None - Family History Maternal Family History: Family History (Last Reviewed 12/08/18 @ 03:44 by Garrett Whitley MD) Brother TBI (traumatic brain injury) Sister Ulcerative colitis Family History: Reports: Hypertension, - - Patient's father at the age of 94 from old age. Patient's mother at age of 87 with a history of hyperlipidemia and hypertension. Paternal Family History: Family History (Last Reviewed 12/08/18 @ 03:44 by Garrett Whitley MD) Brother TBI (traumatic brain injury) Sister Ulcerative colitis Family History: Reports: Hypertension Additional Family History: None Review of Systems ROS: Unable to Obtain - Respiratory distress. He was asked yes/no questions so he could not had to answer most of my questions. General: Denies: Chills, Fever, Malaise, Sweats Eyes: Denies: Visual changes - bilaterally, Blurred Vision - bilaterally ENT: Denies: Bilateral ear pain, Rhinorrhea, Sore throat Cardiovascular: Denies: Chest pain, Palpitations Respiratory: Reports: Dyspnea, Cough, Sputum, Orthopnea Gastrointestinal: Denies: Abdominal pain, Nausea, Vomiting, Diarrhea, Constipation, Melena, Hematochezia Genitourinary: Denies: Dysuria, Hematuria, Frequency Musculoskeletal: Reports: Swelling - Chronic swelling of lower extremities. Denies: Myalgias, Arthralgias, Neck pain, Back pain, Extremity Pain Skin: Denies: Rash Neurological: Reports: Weakness. Denies: Headache Hematologic: Denies: Easy bruising, Easy bleeding Allergy: Denies: Uticaria, Swelling of the mouth, Swelling of the tongue Physical Exam Vital Signs/Narrative: Vital Signs Temp Pulse Resp BP Pulse Ox 03/11/19 20:19 99 F 77 20 H 164/65 H 87 Inital Vital Signs reviewed: Yes General: Well nourished, Well developed, Obese, Acute Distress Head: Normocephalic, Atraumatic Eyes: Perrl, EOMI. Negative for: Pale conjunctiva, Scleral icterus ENT: Moist mucous membranes, TM's clear Neck: Supple, Nontender, No lymphadenopathy, No JVD Cardiovascular: Regular rate, Regular rhythm, No murmurs, Normal S1, Normal S2 Respiratory: Chest nontender, Rhonchi, Wheezing Abdomen: Soft, Nontender, Normal bowel sounds, No masses, Ventral hernia, Hernia reducible. Negative for: Nondistended Rectal: Deferred Back: Nontender Extremities: Nontender, Edema - Pitting edema bilaterally Skin: Normal color, No rash, Cyanosis, No Trauma. Negative for: Diaphoresis, Jaundice Neurological: Alert, Cranial nerves II-XII grossly intact, Normal Strength, Normal Sensation. Negative for: Normal Gait Psychological: Normal affect Diagnostic/Tx/Re-eval Chest X-Ray - ED: 1 View, Read by ED Physician, No Acute Disease, Chronic Barron es, - - Portable view was obtained. The film is rotated. There is a small pleural effusion noted on the left. There is evidence of cephalization. X-ray interpreted at 2101 ABG obtained on BiPAP with an FiO2 of 35% reveals a pH of 7.48, PCO2 54.6, P PaO2 of 101, base excess 17 and bicarb of 40.8 with an O2 saturation 98%. Goal is saturation between 90 and 92%. Primary metabolic alkalosis, with superimposed respiratory acidosis (expected Pco2 = 47 - 51) expected pH = 7.49 expected CO2 = 55 expected HCO3- = 39 Impressions Chest X-Ray 03/11/19 20:27 IMPRESSION: No consolidation. Small bilateral effusions. Cardiomegaly. Electronically Signed: Cali Jurado, at 21:27 EDT Tel , Service support , 03/11/19 20:27 Chest 1 View (Portable) [RAD] Stat CBC is unremarkable. Basic metabolic panel reveals slight elevation of potassium and CO2 retention. Blood gas indicates this is chronic. Coags are normal. Troponin is normal. BMP is normal. Laboratory Results 03/11/19 03/11/19 03/11/19 10:30 10:30 10:30 WBC 9.4 RBC 3.78 L Hgb 10.3 L Hct 33.5 L MCV 88.6 MCH 27.2 MCHC 30.7 L RDW Std Deviation 44.2 H RDW Coeff of El 13.8 Plt Count 371 MPV 9.6 Immature Gran % (Auto) 2.600 H Neut % (Auto) 89.5 H Lymph % (Auto) 4.0 L Smith % (Auto) 3.7 Eos % (Auto) 0.0 Baso % (Auto) 0.2 Absolute Neuts (auto) 8.4 H Absolute Lymphs (auto) 0.38 L Nucleated RBC % 0 Differential Comment SCANNED PT 13.8 INR 1.1 APTT 26.3 Specimen Type Sample Site pH Bicarbonate Actual POC Total CO2 Base Excess O2 Saturation O2 % ABG pCO2 ABG pO2 Hilario Test Respiration Rate O2 Delivery Device EPAP IPAP Blood Gas Notified Whom Sodium 131 L Potassium 5.8 H Chloride 89 L Carbon Dioxide 38.0 H Anion Gap 4 L BUN 52 H Creatinine 1.45 H Estim Creat Clear Calc 41.93 Est GFR (MDRD) Af Amer 61 Est GFR (MDRD) Non-Af 50 L BUN/Creatinine Ratio 35.9 H Glucose 389 H Calcium 8.4 L Troponin I < 0.015 B-Natriuretic Peptide 03/11/19 03/11/19 10:30 20:48 WBC RBC Hgb Hct MCV MCH MCHC RDW Std Deviation RDW Coeff of [place] Plt Count MPV Immature Gran % (Auto) Neut % (Auto) Lymph % (Auto) Smith % (Auto) Eos % (Auto) Baso % (Auto) Absolute Neuts (auto) Absolute Lymphs (auto) Nucleated RBC % Differential Comment PT INR APTT Specimen Type ART Sample Site L Radial pH 7.48 H Bicarbonate Actual 40.8 H POC Total CO2 42 Base Excess 17 H O2 Saturation 98 O2 % 35 ABG pCO2 54.6 H ABG pO2 101 H Hilario Test POS Respiration Rate 20 O2 Delivery Device Bi / C PAP EPAP 12 IPAP 18 Blood Gas Notified Whom ED MD Sodium Potassium Chloride Carbon Dioxide Anion Gap BUN Creatinine Estim Creat Clear Calc Est GFR (MDRD) Af Amer Est GFR (MDRD) Non-Af BUN/Creatinine Ratio Glucose Calcium Troponin I B-Natriuretic Peptide 128.9 H The CTA of the chest was reviewed by me. There is no obvious infiltrate. There is a mild to moderate pleural effusion on the right. Awaiting formal read. Hospitalist was paged prior to CTA results since patient will require admission. CT/CTA Chest W/WO Contrast IMPRESSION: Examination for pulmonary embolus somewhat limited by motion artifact particularly at the lung bases. Negative for large central pulmonary embolus or embolus and most lobar branches. Negative for embolus to the upper lobes. Limited for exclusion of lower lobe embolus secondary to motion artifact. Dilated pulmonary artery with a diameter of 5 cm. Moderate plaque in elongation of the thoracic aorta. 3.3 cm fusiform dilatation of the posterior aortic arch. Cardiomegaly, coronary calcifications status post prior midline sternotomy. Moderate size posterior/dependent right pleural effusion similar in size to prior exam. Complete collapse of the right lower lobe. Mild atelectatic changes of the right upper lobe and middle lobe. Much smaller dependent left pleural effusion with mild atelectatic changes of the left lower lobe. Broad mouth subxiphoid herniation including the transverse colon. Status post cholecystectomy. Electronically Signed: Judith Dexter MD at 22:51 EDT , Service support , - EKG Initial EKG Interpretation: Sinus Rhythm - Sinus rhythm with a ventricular rate of 73. UT interval is 164, QRS duration 106 ms, QT duration 420 ms. [place] is normal. The EKG is normal and unchanged from prior - Medical Decision Making We will obtain ABG to assess acid-base status and CO2. EKG to rule out cardiac ischemia. Chest x-ray to rule out pneumothorax, CHF. There probably will be a residual infiltrate since he was admitted for acute pneumonia. Baseline blood work was obtained to assess for anemia, anion gap, electrolyte abnormality and renal function. He was placed on BiPAP. His initial pulse ox was 87% when he arrived by ambulance. This was on oxygen. SPECT patient has exacerbation of COPD. With abrupt onset of hypoxia will need to evaluate for pulmonary embolus. 25 mg Solu-Medrol was ordered since patient is wheezing and has history of COPD. The medicine technologist contacted me at [id number]. She informed me that the patient is in respiratory distress. He was reevaluated. He is having significant difficulty breathing. Respiratory therapist was contacted to place patient back on BiPAP. He did receive insulin for hyperglycemia and will treat the hyperkalemia. Patient did not receive bicarb since he does not have an anion gap. He did not receive calcium chloride because there are no acute changes secondary to his hypercalcemia. - Critical Care Time Critical care time (excluding procedures): 30-74 minutes, Discussing w/Patient &/or Family/Speech Pathology Assistant, Discussing w/Consultants, Arranging Admission or Transfer - Critical care time 32 minutes ED Disposition - Plan for ED Patient: Disposition: Acute Care Hospital [facility] Diagnosis: Respiratory failure with hypoxia and hypercapnia, COPD exacerbation, Pleural effusion, right, Hyperkalemia, Hyperglycemia Referrals: Jack Verdugo MD [Primary Care Provider] -
[2019-03-11 20:35] LABS: Absolute Lymphocyte Count 0.38 X10^3/uL (0.83-4.51); Absolute Neutrophil Count 8.4 X10^3/uL (2.0-7.7); Basophil# 0.02 X10^3/uL; Basophil% 0.2 % (0-1); Hematocrit 33.5 % (40-54); Hemoglobin 10.3 g/dL (13.0-16.5); Lymphocyte # 0.38 X10^3/ul (4.0); Mean Corp Hgb Conc 30.7 g/dL (32-36); Mean Corpuscular Hgb 27.2 pg (27.0-32.0); Mean Corpuscular Volume 88.6 fL (80-94); Mean Platelet Vol. 9.6 fl (6.2-12.0); Monocyte# 0.35 X10^3/uL; Monocyte% 3.7 % (0-10); NRBC Flagged by Analyzer 0 % (0-5); Neutrophil # 8.41 X10^3/uL (2.7-7.7); Neutrophil % 89.5 % (47-70); POSITIVE DIFFERENTIAL YES; Platelet Count 371 K/mm3 (150-450); RBC Distribution Width CV 13.8 % (11.6-14.6); RBC Distribution Width SD 44.2 fl (35.1-43.9); Red Blood Count 3.78 M/mm3 (4.6-6.2); White Blood Count 9.4 K/mm3 (4.4-11.0)
[2019-03-11 20:41] LABS: Differential Indicated SCAN CRITERIA MET
[2019-03-11 20:46] LABS: International Normalized Ratio 1.1; Partial Thromboplast Time 26.3 Seconds (24.1-36.2); Prothrombin Time (Protime)PT. 13.8 SECONDS (11.7-14.9)
[2019-03-11 20:53] LABS: Anion Gap 4 (5-15); BUN 52 mg/dL (7-18); BUN/Creat Ratio 35.9 RATIO (10-20); Calcium,Total 8.4 mg/dL (8.5-10.1); Chloride 89 mmol/L (98-107); Creatinine, Serum 1.45 mg/dL (0.70-1.30); EST Glomerular Filtration Rate 50 mL/min (>60); Est Glom Filt Rate - Afr Amer 61 mL/min (>60); Estimated Creatinine Clearance 41.93 ml/min; Glucose 389 mg/dL (74-106); Potassium 5.8 mmol/L (3.5-5.1); Sodium Level 131 mmol/L (136-145)
[2019-03-11 20:56] LABS: Allen Test POS; Base Excess 17 mmol/L (-2 to +2); Bicarbonate 40.8 mmol/L (22-26); Blood Gas Specimen Type ART; EPAP 12; FI02 35; IPAP 18; PO2 101 mmHG (75-100); RR 20; SITE L Radial; SO2 98 % (95-99); Total Carbon Dioxide 42 mmol/L; pCO2 54.6 mmHg (35-45); pH 7.48 (7.35-7.45)
[2019-03-11] MEDS: Albuterol 2.5 MG/3 ML VIAL.NEB. INHALATION ×2 (21:04→21:05)
[2019-03-11] MEDS: Ipratropium/Albuterol Sulfate 3 ML AMPUL.NEB INHALATION (21:04)
[2019-03-11 21:05] LABS: Differential Comment SCANNED
[2019-03-11] MEDS: Insulin Lispro 100 UNIT/ML INSULN.PEN 8 UNIT SC (21:32)
[2019-03-11 21:35] LABS: BNP,B-Type NATRIURETIC PEPTIDE 128.9 pg/mL (0-100)
--- NOTE | 2019-03-11 21:42 | CT_ITS ---
STUDY: CTA CHEST REASON FOR EXAM: Male, 74 years old. Hypoxia. Evaluation for pulmonary embolus. History of TIA, CAD, CHF, CABG, abdominal aortic aneurysm, asthma and diabetes. RADIATION DOSAGE (If Supplied By Facility): CTDIvol = ( 20.86 ) mGy, DLP = ( 890.31 ) mGycm TECHNIQUE: The examination was performed with the intravenous administration of IV 100mL [id number] 100ML. Post-processing of the angiographic images was performed, with multiplanar reformation and 3D reconstruction. Individualized dose optimization techniques were used for this CT. COMPARISON: Portable chest radiograph of March 11, 2019 prior chest CTA of August 20 FINDINGS: Negative for a large central pulmonary embolus. Negative for embolus in most lobar arteries and upper lung zone arteries. Limited exam of the bases secondary primarily to motion artifact. The pulmonary artery is generally dilated with a diameter of 5 cm. Moderate elongation and plaque of the thoracic aorta. The posterior arch diameter is 3.3 cm. There is no demonstrated aortic dissection. Cardiomegaly. Coronary artery calcifications. Normal mediastinum. Normal hilar regions. Moderately large dependent right pleural effusion with complete collapse of the right lower lobe. Mild compressive atelectasis of the right upper lobe and right middle lobe. There is a much smaller dependent left pleural effusion with mild compressive atelectasis of the posterior left lower lobe. Subxiphoid broad mouth herniation of the transverse colon. There are degenerative changes of thoracic spine. Demineralized osseous structures. Status post cholecystectomy. CT/CTA Chest W/WO Contrast IMPRESSION: Examination for pulmonary embolus somewhat limited by motion artifact particularly at the lung bases. Negative for large central pulmonary embolus or embolus and most lobar branches. Negative for embolus to the upper lobes. Limited for exclusion of lower lobe embolus secondary to motion artifact. Dilated pulmonary artery with a diameter of 5 cm. Moderate plaque in elongation of the thoracic aorta. 3.3 cm fusiform dilatation of the posterior aortic arch. Cardiomegaly, coronary calcifications status post prior midline sternotomy. Moderate size posterior/dependent right pleural effusion similar in size to prior exam. Complete collapse of the right lower lobe. Mild atelectatic changes of the right upper lobe and middle lobe. Much smaller dependent left pleural effusion with mild atelectatic changes of the left lower lobe. Broad mouth subxiphoid herniation including the transverse colon. Status post cholecystectomy. Electronically Signed: Judith Dexter MD at 22:51 EDT , Service support ,
--- NOTE | 2019-03-11 22:34 | PCM.HP.STD ---
Problem List (1) Respiratory failure with hypoxia and hypercapnia Status: Acute History of Present Illness Date of Admission: 03/11/19 Chief Complaint: Hypoxia The patient is a 74 year old M with a significant history of BPH; CKD stage III; COPD; diabetes mellitus; hypertension; MRSA of wounds; obstructive sleep apnea on home BiPAP; pickwickian syndrome; and congestive heart failure who was admitted on 03/05/2019 and discharged on 03/11/2019 for acute hypoxic and hypercapnic respiratory failure presenting again on the same day of being discharged to a nursing with hypoxia. His oxygen saturation was 55% at the [facility] where he was discharged to. His family states that his oxygen saturation of 55% was on room air instead of his 5 L nasal cannula. At the emergency department patient required BiPAP. He was placed on nasal cannula oxygen for CTA of his chest. However he was very hypoxic and had to be placed back on BiPAP. On BiPAP of 11/05 with 30% FiO2 his oxygen saturation was around 84%. Past Medical History Past Medical History (Chronic Problems): Chronic Problems (Last Reviewed 03/12/19 @ 01:43 by Garrett Whitley MD) COPD exacerbation (Chronic) COPD with exacerbation (Chronic 03/07/19) Pickwickian syndrome (Chronic) Iron deficiency anemia (Chronic) etology unknown Acute on chronic diastolic heart failure (Chronic 03/07/19) Thoracic aortic aneurysm (Chronic) Thoracic aortic aneurysm without rupture (Chronic) Status post ascending and proximal arch aneurysm replaced with a Hemashield graft and shayan-arch repair; Essential (primary) hypertension (Chronic) Hyperlipidemia (Chronic) Lymphedema (Chronic) Medical History: Medical History (Last Reviewed 03/12/19 @ 01:54 by Garrett Whitley MD) Pneumococcal pneumonia (Acute) Onset Date: 03/07/19 J13 New onset atrial fibrillation (Inactive) Onset Date: 03/07/19 I48.91 given then anemia and heme positive stools, hold off on oral anticoagulants for now 03/11/19 COPD with exacerbation (Chronic) Onset Date: 03/07/19 J44.1 Pickwickian syndrome (Chronic) E66.2 Iron deficiency anemia (Chronic) D50.9 etology unknown Acute on chronic diastolic heart failure (Chronic) Onset Date: 03/07/19 I50.33 Thoracic aortic aneurysm (Chronic) I71.2 Thoracic aortic aneurysm without rupture (Chronic) I71.2 Status post ascending and proximal arch aneurysm replaced with a Hemashield graft and shayan-arch repair; Essential (primary) hypertension (Chronic) I10 Hyperlipidemia (Chronic) E78.5 Lymphedema (Chronic) I89.0 BPH (benign prostatic hyperplasia) N40.0 BPH w/o urinary obs/LUTS N40.0 COPD (chronic obstructive pulmonary disease) J44.9 COPD (chronic obstructive pulmonary disease) J44.9 Chronic anemia D64.9 Chronic kidney disease, stage 2 (mild) N18.2 Chronic respiratory failure with hypoxia and hypercapnia J96.11, J96.12 Debility R53.81 Diabetes mellitus E11.9 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 GERD (gastroesophageal reflux disease) K21.9 Gout M10.9 History of pulmonary embolism Z86.711 Hypomagnesemia E83.42 Iron deficiency anemia D50.9 Lymphedema I89.0 Lymphedema of leg I89.0 Morbid obesity E66.01 Obstructive sleep apnea G47.33 Obstructive sleep apnea G47.33 Osteoarthritis M19.90 Super obesity E66.9 Tinea unguium B35.1 Ulcer of left lower extremity with fat layer exposed L97.922 Ulcer of right lower extremity with fat layer exposed L97.912 Venous insufficiency I87.2 Ventral hernia K43.9 Acute on chronic respiratory failure with hypoxia and hypercapnia (Resolved) J96.21, J96.22 Acute on chronic respiratory failure with hypoxia and hypercapnia J96.21, J96.22 Adynamic ileus K56.0 CAP (community acquired pneumonia) (Resolved) J18.9 The patient appropriately completed antibiotics and prednisone as prescribed. He has no further signs and symptoms of persistent pneumonia. No indication for any further testing at this time. Patient will be eligible for Pneumovax 23 in approximately 6 months. He states that his PCP is very good at keeping track of his immunizations and when they are due. CHF exacerbation (Resolved) I50.9 CHF exacerbation (Resolved) I50.9 Hypoglycemia (Resolved) E16.2 Pulmonary embolism on right (Resolved) I26.99 Tobacco abuse (Resolved) Z72.0 Wheezing (Resolved) R06.2 Edema of both legs (Inactive) R60.0 Immobility (Inactive) Z74.09 Leg swelling (Inactive) M79.89 Multiple excoriations (Inactive) T14.8 Nausea and vomiting (Inactive) R11.2 Tinea unguium (Inactive) B35.1 Allergies naphazoline HCl [From Naphcon] Allergy (Severe, Verified 03/11/19 20:24) affected his breathing AFFECTED HIS BREATHING amlodipine besylate [From Norvasc] Allergy (Verified 03/11/19 20:24) Other dextromethorphan Allergy (Verified 03/11/19 20:24) Other levofloxacin [From Levaquin] Adverse Reaction (Mild, Verified 03/11/19 20:24) made me hyperactive made me hyperactive Home Medications: Ambulatory Orders Medication Instructions Recorded Allopurinol [Zyloprim] 300 mg PO DAILY 06/15/18 Finasteride [Proscar] 5 mg PO DAILY 06/15/18 Metolazone [Zaroxolyn] 2.5 mg PO DAILY 06/15/18 Metoprolol Tartrate [Lopressor 50 mg PO BID 06/15/18 (beta maryam)] Sertraline HCl [Zoloft] 100 mg PO DAILY 06/15/18 Spironolactone [Aldactone] 25 mg PO BID 06/15/18 Atorvastatin Calcium 40 mg PO QHS 12/07/18 Nystatin Powder [Mycostatin Powder] 1 applic TOPICAL BID 12/13/18 Acetaminophen [Tylenol] 1,000 mg PO Q6H PRN PRN tab 01/03/19 Iron Polysaccharide Complex 150 mg PO DAILYCM #30 cap 01/03/19 [Ferrex 150] Menthol/Lanolin/Calamine/Znox 1 applic TOPICAL BID tube 01/03/19 [Calmoseptine Ointment] Mineral Oil/Petrolatum,White 1 applic TOPICAL 0600,2200 jar 01/03/19 [Eucerin] Pantoprazole Sodium [Protonix] 40 mg PO DAILY #30 tab 01/03/19 Aspirin [Aspirin, Baby] 81 mg PO DAILY@0800 tab.chew 03/11/19 Diltiazem CD [Cardizem CD] 240 mg PO DAILY cap 03/11/19 Doxazosin Mesylate [Cardura] 8 mg PO QHS 03/11/19 Furosemide 40 mg PO BID #1 tab 03/11/19 Guaifenesin [Mucinex] 1,200 mg PO BID 5 Days tab 03/11/19 Insulin Glargine [Lantus SoloStar 10 units SUBCUT BREAKFAST 03/11/19 Pen] Insulin Glargine [Lantus SoloStar 10 units SUBCUT QHS 03/11/19 Pen] Insulin Lispro [Humalog KwikPen] See Protocol SUBCUT ACHS 03/11/19 insuln.pen Ipratropium/Albuterol Sulfate 3 ml INHALATION Q4H.RT ampul.neb 03/11/19 [Duoneb] Magnesium Oxide [Mag-Ox 400] 400 mg PO DAILY 03/11/19 Prednisone 10 mg PO DAILY #22 tab.ds.pk 03/11/19 Surgical History: Surgical History (Last Reviewed 03/12/19 @ 01:54 by Garrett Whitley MD) History of repair of thoracic aortic aneurysm (Resolved) Onset Date: 12/11/09 Z98.890, Z86.79 H/O aortic valve replacement (Resolved) Onset Date: 12/11/09 Z95.2 # 29 Freestyle valve H/O hernia repair Z98.890, Z87.19 Surgical History: herniorrhaphy, - Psychiatric History: Anxiety, Depression Lives: Long Term Smoking Status: Former smoker Alcohol: None Drugs: None - *Family History Maternal Family History: Family History (Last Reviewed 03/12/19 @ 01:43 by Garrett Whitley MD) Brother TBI (traumatic brain injury) Sister Ulcerative colitis History Items: Hypertension, - - Patient's father at the age of 94 from old age. Patient's mother at age of 87 with a history of hyperlipidemia and hypertension. Paternal Family History: Family History (Last Reviewed 03/12/19 @ 01:43 by Garrett Whitley MD) Brother TBI (traumatic brain injury) Sister Ulcerative colitis History Items: Hypertension Review of Systems Constitutional: Denies: Chills, Fever, Weight Change HEENT: Denies: Head Aches, Sinus Congestion, Sinus Drainage Cardiovascular: Reports: Orthopnea. Denies: Chest Pain, Palpitations Respiratory: Reports: Cough, Shortness of Breath, Sputum production Gastrointestinal: Denies: Abdominal Pain, Nausea, Vomiting Genitourinary: Denies: Dysuria Musculoskeletal: Denies: Joint Pain, Joint Tenderness Skin: Denies: Rash, Wounds Neurological: Denies: Numbness, Tingling, Focal weakness Psychiatric: Denies: Anxiety, Depression, Homicidal Ideations, Suicidal Ideations Hematologic/ Lymphatic: Denies: Easy Bruising, Easy Bleeding VTE Information - Inpt Only VTE Present on Admission: No VTE Mechan Device Prophylaxis: SCD's VTE Pharm Prophylaxis ordered?: No Patient Problems: Active and Suspected Problems (Last Reviewed 03/12/19 @ 01:43 by Garrett Whitley MD) Respiratory failure with hypoxia and hypercapnia (Acute) Pleural effusion, right (Acute) Hyperkalemia (Acute) Hyperglycemia (Acute) Pneumococcal pneumonia (Acute 03/07/19) - Physical Exam General: Alert, Oriented x3, Cooperative, - - Super morbidly obese HEENT: Atraumatic, PERRLA, EOMI, Normocephalic Neck: Supple, No JVD, Negative Carotid Bruits Lungs: Clear to auscultation, Normal air movement, Tachypneic Cardiovascular: Regular rate, Normal S1, Normal S2, No murmurs Abdomen: Bowel Sounds Present, Soft, Non Tender Extremities: No edema, Capillary Refill Less than 3 Seconds Skin: No rashes, Ulcer/ Wound - Bilateral lower extremities Musculoskeletal: No Tenderness to Palpation of Joints or Extremities Neurological: Cranial nerves II-XII grossly intact Psych/Mental Status: Normal Affect, Appropriate Vital Signs Temp Pulse Resp BP Pulse Ox 98.1 F 76 18 150/61 H 97 03/11/19 21:34 03/11/19 21:54 03/11/19 21:54 03/11/19 21:34 03/11/19 21:34 Oxygen Flow Rate (L/min) 30 Oxygen Delivery Method Bi-pap Weight: 158.9 kg Body Mass Index (BMI) 53.2 Finger Stick Blood Glucose 171 Laboratory Tests Past 24 Hrs 03/11/19 03/11/19 03/11/19 10:30 10:30 10:30 WBC 9.4 RBC 3.78 L Hgb 10.3 L Hct 33.5 L MCV 88.6 MCH 27.2 MCHC 30.7 L RDW Std Deviation 44.2 H RDW Coeff of El 13.8 Plt Count 371 MPV 9.6 Immature Gran % (Auto) 2.600 H Neut % (Auto) 89.5 H Lymph % (Auto) 4.0 L [place] % (Auto) 3.7 Eos % (Auto) 0.0 Baso % (Auto) 0.2 Absolute Neuts (auto) 8.4 H Absolute Lymphs (auto) 0.38 L Nucleated RBC % 0 Differential Comment SCANNED PT 13.8 INR 1.1 APTT 26.3 Specimen Type Sample Site pH Bicarbonate Actual POC Total CO2 Base Excess O2 Saturation O2 % ABG pCO2 ABG pO2 Hilario Test Respiration Rate O2 Delivery Device EPAP IPAP Blood Gas Notified Whom Sodium 131 L Potassium 5.8 H Chloride 89 L Carbon Dioxide 38.0 H Anion Gap 4 L BUN 52 H Creatinine 1.45 H Estim Creat Clear Calc 41.93 Est GFR (MDRD) Af Amer 61 Est GFR (MDRD) Non-Af 50 L BUN/Creatinine Ratio 35.9 H Glucose 389 H Calcium 8.4 L Troponin I < 0.015 B-Natriuretic Peptide 03/11/19 03/11/19 10:30 20:48 WBC RBC Hgb Hct MCV MCH MCHC RDW Std Deviation RDW Coeff of [place] Plt Count MPV Immature Gran % (Auto) Neut % (Auto) Lymph % (Auto) [place] % (Auto) Eos % (Auto) Baso % (Auto) Absolute Neuts (auto) Absolute Lymphs (auto) Nucleated RBC % Differential Comment PT INR APTT Specimen Type ART Sample Site L Radial pH 7.48 H Bicarbonate Actual 40.8 H POC Total CO2 42 Base Excess 17 H O2 Saturation 98 O2 % 35 ABG pCO2 54.6 H ABG pO2 101 H Hilario Test POS Respiration Rate 20 O2 Delivery Device Bi / C PAP EPAP 12 IPAP 18 Blood Gas Notified Whom ED Sodium Potassium Chloride Carbon Dioxide Anion Gap BUN Creatinine Estim Creat Clear Calc Est GFR (MDRD) Af Amer Est GFR (MDRD) Non-Af BUN/Creatinine Ratio Glucose Calcium Troponin I B-Natriuretic Peptide 128.9 H Assessment/Plan All Active Problems (Last Reviewed 03/12/19 @ 01:43 by Garrett Whitley MD) Respiratory failure with hypoxia and hypercapnia (Acute) Pleural effusion, right (Acute) Hyperkalemia (Acute) Hyperglycemia (Acute) Pneumococcal pneumonia (Acute 03/07/19) History of repair of thoracic aortic aneurysm (Resolved 12/11/09) H/O aortic valve replacement (Resolved 12/11/09) Acute on chronic respiratory failure with hypoxia and hypercapnia (Resolved) Bilateral lower leg cellulitis (Resolved) CAP (community acquired pneumonia) (Resolved) CHF exacerbation (Resolved) CHF exacerbation (Resolved) Hyperkalemia (Resolved) Hypoglycemia (Resolved) Hypoglycemia (Resolved) Hypomagnesemia (Resolved) Hyponatremia (Resolved) Pulmonary embolism on right (Resolved) Shortness of breath (Resolved) Tobacco abuse (Resolved) Wheezing (Resolved) The patient is a 74 year old M with a significant history of BPH; CKD stage II; COPD; diabetes mellitus; hypertension; obstructive sleep apnea on home BiPAP; pickwickian syndrome; and congestive heart failure who was admitted on 03/05/2019 and discharged on 03/11/2019 for acute hypoxic and hypercapnic respiratory failure presenting again on the same day of being discharged to a alf because of oxygen saturation of 55% consistent with acute on chronic hypoxemic respiratory failure. Acute on chronic hypoxemic respiratory failure Patient was recently admitted for exacerbation of COPD; and pneumococcal pneumonia; acute heart failure with preserved ejection fraction; Serratia UTI ; severe sepsis and new onset A. fib. His lungs on this presentation was not wheezy and he does not look edematous. Chest x-ray showed no consolidation but small bilateral effusions; cardiomegaly. CTPA showed moderate sized posterior/dependent right pleural effusion similar in size to prior exam. Complete collapse of the right lower lobe. Mild athletic changes of the right upper lobe and middle lobe. As well as much smaller dependent left pleural effusion with mild atelectatic changes of the left lower lobe. Receive normal saline pair CTA with dye protocol. Continue home diuresis. Patient is on home metolazone; spironolactone and furosemide. We will give patient Solu-Medrol 40 mg IV push x1 and start patient on Solu-Medrol 40 mg daily. Since pulmonary medicine saw patient on recent admission and since patient sees our pulmonary group outpatient will reconsult pulmonary medicine. Scheduled DuoNeb and PRN albuterol ordered. ABG showed metabolic alkalosis His BNP on admission was 128.9 on the morning of discharge; the same day of readmission. We will repeat his BMP. Respiratory pathogen panel on 03/05/2019 was unremarkable. On 03/05/2019 patient was positive for Streptococcus pneumonia antigen and he was treated with antibiotics (ceftriaxone). Urine culture obtained on 03/05/2019 was positive for Serratia fonticola. Hyperkalemia His potassium was 5.8 on morning of discharge and on the same day of presentation. Patient is on Lasix as well as potassium sparing diuretics. Patient received IV fluids at the emergency department after CTA with contrast dye. EKG shows sinus rhythm. Will trend BMP. Diabetes mellitus with acute hyperglycemia On presentation his blood glucose was not within goal. Received short acting insulin at the emergency department. We will continue patient on basal and correction scale insulin. Since patient is on BiPAP and has been kept n.p.o. we will slightly de-escalate home basal insulin. Check Accu-Chek every 6 hours and make a history adjustment to blood glucose regimen. Chronic wounds of bilateral lower legs Adaptic dressing was placed at the emergency department; continue. Will consult wound care. Chronic Anemia Patient has a history of chronic anemia Occult blood was positive on 03/06/2019. From review of records his EGD on 07/28/2018 was normal. On recent admission reportedly the case was discussed with Dr. Rubio, General Surgery, who advised holding of on endoscopy at this time since recent endoscopy was unremarkable and patient has to be in a better physical condition for any repeat procedure. DVT prophylaxis In view of positive occult stool for blood will shy away from any chemical thromboprophylaxis. SCD ordered. Code Visit Inpatient E&M: 92355 Init Hosp L3
--- NOTE | 2019-03-11 23:49 | CPS ---
patient arrived to [facility] on bipap per order. patient was 86% on current settings. Rt increased patient to .45%
[2019-03-12] VITALS (28 sets, daily range): BP systolic 119–154; BP diastolic 56–72; PULSE 62–83; RESP 12–26; TEMP 36.2–36.9; O2SAT 89–100
[2019-03-12] MEDS: Insulin Lispro 100 UNIT/ML INSULN.PEN SC ×5 (00:31→23:16)
[2019-03-12 00:56] LABS: Bedside Glucose 326 mg/dL (70-110)
--- NOTE | 2019-03-12 01:39 | CPS ---
NURSING INFORMED RT THAT PATIENT WAS WEANED TO .40% DUE TO PATIENTS SPO2 READING OF 99%
[2019-03-12] MEDS: Ipratropium/Albuterol Sulfate 3 ML AMPUL.NEB INHALATION ×5 (03:02→18:46)
[2019-03-12 06:35] LABS: Bedside Glucose 298 mg/dL (70-110)
[2019-03-12 06:37] LABS: Hematocrit 33.2 % (40-54); Hemoglobin 10.2 g/dL (13.0-16.5); Mean Corp Hgb Conc 30.7 g/dL (32-36); Mean Corpuscular Hgb 27.1 pg (27.0-32.0); Mean Corpuscular Volume 88.3 fL (80-94); Mean Platelet Vol. 9.7 fl (6.2-12.0); Platelet Count 344 K/mm3 (150-450); RBC Distribution Width CV 13.9 % (11.6-14.6); RBC Distribution Width SD 44.3 fl (35.1-43.9); Red Blood Count 3.76 M/mm3 (4.6-6.2); White Blood Count 8.7 K/mm3 (4.4-11.0)
[2019-03-12 07:07] LABS: Anion Gap 5 (5-15); BUN 51 mg/dL (7-18); BUN/Creat Ratio 41.1 RATIO (10-20); Calcium,Total 8.3 mg/dL (8.5-10.1); Chloride 90 mmol/L (98-107); Creatinine, Serum 1.24 mg/dL (0.70-1.30); EST Glomerular Filtration Rate 60 mL/min (>60); Est Glom Filt Rate - Afr Amer 73 mL/min (>60); Estimated Creatinine Clearance 49.03 ml/min; Glucose 313 mg/dL (74-106); Potassium 4.8 mmol/L (3.5-5.1); Sodium Level 132 mmol/L (136-145)
--- NOTE | 2019-03-12 07:26 | PCM.PN.PUL ---
Patient Problems: Active and Suspected Problems (Last Reviewed 03/12/19 @ 01:54 by Garrett Whitley MD) Respiratory failure with hypoxia and hypercapnia (Acute) Pleural effusion, right (Acute) Hyperkalemia (Acute) Hyperglycemia (Acute) Pneumococcal pneumonia (Acute 03/07/19) Subjective: Events were reviewed with the patient. Reportedly, patient was placed on CPAP without supplemental oxygen and was found saturating 55%. Unable to recover oxygenation, so patient was transferred back to the hospital for evaluation. Patient currently states that he is back to his baseline. Patient denies any chest pain, abdominal pain, nausea or vomiting. Patient has not had any change in sputum. Objective: All imaging was personally reviewed. CT of the chest did not show any PE that I can note. This does not appear to be significantly changed compared to previous. - Physical Exam General: Alert, Oriented x3, Cooperative, No apparent distress, Well developed, Well nourished, - - Morbidly obese. Speaking in full sentences. HEENT: Atraumatic, PERRLA, EOMI, Normocephalic, - - No scleral icterus or injection noted Oral: Moist Mucosa, No Gingival or Mucosal Lesions/ Ulcerations Neck: Supple, No JVD, No Nodes, Trachea Midline Lungs: No rhonchi, No wheeze, No rales, Diminished, - - Symmetric expansion. No dullness to percussion. Cardiovascular: Regular rate, Normal S1, Normal S2, No murmurs, No rub noted, No Gallop Abdomen: Bowel Sounds Present, Soft, Non Tender, Non-Distended, Obese Extremities: No cyanosis, Capillary Refill Less than 3 Seconds, Edema Skin: No rashes, No breakdown Musculoskeletal: No Tenderness to Palpation of Joints or Extremities Lymphatic: No Cervical, Supraclavicular, or Inguinal Adenopathy Neurological: Cranial nerves II-XII grossly intact, Neuro grossly intact, Motor Exam 5/5 strength throughout, Sensory exam intact to light touch and pain Psych/Mental Status: Alert and oriented to time, place, person, mood and affect Vital Signs Temp Pulse Resp BP Pulse Ox 36.2 C L 68 18 146/70 H 93 03/12/19 06:00 03/12/19 07:13 03/12/19 07:13 03/12/19 06:00 03/12/19 07:13 Oxygen Flow Rate (L/min) 30 Oxygen Delivery Method Bi-pap Weight: 158.9 kg Body Mass Index (BMI) 53.2 Finger Stick Blood Glucose 171 Intake and Output for Last 24 Hours 03/10/19 03/11/19 03/12/19 23:59 23:59 23:59 Intake Total 667.38 / 667.38 Output Total 575 / 575 Balance 92.38 / 92.38 Laboratory Tests Past 24 Hrs 03/11/19 03/11/19 03/11/19 10:30 10:30 10:30 WBC 9.4 RBC 3.78 L Hgb 10.3 L Hct 33.5 L MCV 88.6 MCH 27.2 MCHC 30.7 L RDW Std Deviation 44.2 H RDW Coeff of El 13.8 Plt Count 371 MPV 9.6 Immature Gran % (Auto) 2.600 H Neut % (Auto) 89.5 H Lymph % (Auto) 4.0 L [place] % (Auto) 3.7 Eos % (Auto) 0.0 Baso % (Auto) 0.2 Absolute Neuts (auto) 8.4 H Absolute Lymphs (auto) 0.38 L Nucleated RBC % 0 Differential Comment SCANNED PT 13.8 INR 1.1 APTT 26.3 Specimen Type Sample Site pH Bicarbonate Actual POC Total CO2 Base Excess O2 Saturation O2 % ABG pCO2 ABG pO2 Hilario Test Respiration Rate O2 Delivery Device EPAP IPAP Blood Gas Notified Whom Sodium 131 L Potassium 5.8 H Chloride 89 L Carbon Dioxide 38.0 H Anion Gap 4 L BUN 52 H Creatinine 1.45 H Estim Creat Clear Calc 41.93 Est GFR (MDRD) Af Amer 61 Est GFR (MDRD) Non-Af 50 L BUN/Creatinine Ratio 35.9 H Glucose 389 H Calcium 8.4 L Troponin I < 0.015 B-Natriuretic Peptide 03/11/19 03/11/19 03/12/19 10:30 20:48 05:50 WBC 8.7 RBC 3.76 L Hgb 10.2 L Hct 33.2 L MCV 88.3 MCH 27.1 MCHC 30.7 L RDW Std Deviation 44.3 H RDW Coeff of El 13.9 Plt Count 344 MPV 9.7 Immature Gran % (Auto) Neut % (Auto) Lymph % (Auto) [place] % (Auto) Eos % (Auto) Baso % (Auto) Absolute Neuts (auto) Absolute Lymphs (auto) Nucleated RBC % Differential Comment PT INR APTT Specimen Type ART Sample Site L Radial pH 7.48 H Bicarbonate Actual 40.8 H POC Total CO2 42 Base Excess 17 H O2 Saturation 98 O2 % 35 ABG pCO2 54.6 H ABG pO2 101 H Hilario Test POS Respiration Rate 20 O2 Delivery Device Bi / C PAP EPAP 12 IPAP 18 Blood Gas Notified Whom ED MD Sodium Potassium Chloride Carbon Dioxide Anion Gap BUN Creatinine Estim Creat Clear Calc Est GFR (MDRD) Af Amer Est GFR (MDRD) Non-Af BUN/Creatinine Ratio Glucose Calcium Troponin I B-Natriuretic Peptide 128.9 H 03/12/19 03/12/19 05:50 05:50 WBC RBC Hgb Hct MCV MCH MCHC RDW Std Deviation RDW Coeff of El Plt Count MPV Immature Gran % (Auto) Neut % (Auto) Lymph % (Auto) [place] % (Auto) Eos % (Auto) Baso % (Auto) Absolute Neuts (auto) Absolute Lymphs (auto) Nucleated RBC % Differential Comment PT INR APTT Specimen Type Sample Site pH Bicarbonate Actual POC Total CO2 Base Excess O2 Saturation O2 % ABG pCO2 ABG pO2 Hilario Test Respiration Rate O2 Delivery Device EPAP IPAP Blood Gas Notified Whom Sodium 132 L Potassium 4.8 Chloride 90 L Carbon Dioxide 37.0 H Anion Gap 5 BUN 51 H Creatinine 1.24 Estim Creat Clear Calc 49.03 Est GFR (MDRD) Af Amer 73 Est GFR (MDRD) Non-Af 60 BUN/Creatinine Ratio 41.1 H Glucose 313 H Calcium 8.3 L Troponin I B-Natriuretic Peptide Pending POC Glucose 03/12/19 03/12/19 06:20 00:30 POC Glucose 298 H 326 H Clinical Impression(s) from Imaging Studies Chest X-Ray 03/11/19 20:27 IMPRESSION: No consolidation. Small bilateral effusions. Cardiomegaly. Electronically Signed: Cali Jurado, at 21:27 EDT Tel , Service support , Chest CTA 03/11/19 21:42 IMPRESSION: Examination for pulmonary embolus somewhat limited by motion artifact particularly at the lung bases. Negative for large central pulmonary embolus or embolus and most lobar branches. Negative for embolus to the upper lobes. Limited for exclusion of lower lobe embolus secondary to motion artifact. Dilated pulmonary artery with a diameter of 5 cm. Moderate plaque in elongation of the thoracic aorta. 3.3 cm fusiform dilatation of the posterior aortic arch. Cardiomegaly, coronary calcifications status post prior midline sternotomy. Moderate size posterior/dependent right pleural effusion similar in size to prior exam. Complete collapse of the right lower lobe. Mild atelectatic changes of the right upper lobe and middle lobe. Much smaller dependent left pleural effusion with mild atelectatic changes of the left lower lobe. Broad mouth subxiphoid herniation including the transverse colon. Status post cholecystectomy. Electronically Signed: Judith Dexter MD at 22:51 EDT , Service support , Medical Necessity - Tobacco Use Smoking Status: Former smoker Assessment/Plan All Active Problems (Last Reviewed 03/12/19 @ 01:54 by Garrett Whitley MD) Respiratory failure with hypoxia and hypercapnia (Acute) Pleural effusion, right (Acute) Hyperkalemia (Acute) Hyperglycemia (Acute) Pneumococcal pneumonia (Acute 03/07/19) History of repair of thoracic aortic aneurysm (Resolved 12/11/09) H/O aortic valve replacement (Resolved 12/11/09) Acute on chronic respiratory failure with hypoxia and hypercapnia (Resolved) Bilateral lower leg cellulitis (Resolved) CAP (community acquired pneumonia) (Resolved) CHF exacerbation (Resolved) CHF exacerbation (Resolved) Hyperkalemia (Resolved) Hypoglycemia (Resolved) Hypoglycemia (Resolved) Hypomagnesemia (Resolved) Hyponatremia (Resolved) Pulmonary embolism on right (Resolved) Shortness of breath (Resolved) Tobacco abuse (Resolved) Wheezing (Resolved) RECOMMENDATIONS: (No changes from previous discharge) 1. Continue BiPAP therapy as tolerated. Wean oxygen as tolerated. 2. Continue bronchodilators. Continue prednisone therapy and wean over 12 to 14 days 3. Agree with aggressive diuresis 4. Continue ceftriaxone as ordered to complete antibiotic course. 5. Transfuse blood products if repeat hemoglobin is less than 7 g/dL. 6. Okay to discharge from a pulmonary perspective. We will continue to diurese as tolerated. 7. Follow-up with nurse practitioner 2 weeks after discharge from the nursing facility. IMPRESSIONS: 1. Acute on chronic combined respiratory failure, likely secondary to COPD exacerbation due to pneumococcal pneumonia Recommendations from previous hospitalization should be continued. Clinical suspicion the patient developed significant pulmonary hypertension from prolonged hypoxemia and just needed time to recover. Patient does not appear to have any significant change in overall status. Dilated pulmonary artery on CT scan would be consistent with this finding. ABG shows adequate oxygenation and compensated ventilation. Patient should continue BiPAP with sleep with FiO2 bleed. Do not believe patient would benefit from prolonged hospitalization from a pulmonary standpoint. BNP may be slightly elevated given acute hypoxemic episode, but patient was already recommended diuresis on discharge from last hospitalization. 2. Anemia Patient's hemoglobin has been stable throughout the hospitalization. Patient is receiving aggressive diuresis, which will help his hemoglobin. Patient reportedly would benefit from an EGD as an outpatient. No indication for repeat transfusion at this time. 3. Chronic heart failure with preserved ejection fraction/status post aortic valve replacement/atrial fibrillation Diuretics currently in place and patient is tolerating well. Cardiology consultation is suggestive of underlying pneumonia as the primary process. Would defer diuretic recommendations to cardiology, but it appears to be improving significantly with diuresis. Would likely continue until clinical signs of contraction. 4. Known history of obstructive sleep apnea The patient has a known history of obstructive sleep apnea, for which he is prescribed outpatient BiPAP therapy. However, despite the patient's insistence that he utilizes his BiPAP, prior office visits during which time his compliance report was reviewed, clearly indicated that the patient was not utilizing his nocturnal Pap therapy as prescribed. This was confirmed by the family during my evaluation. Patient appears to have responded well to BiPAP overnight while in the hospital. This should be continued with any ECF placement. Continue with any sleep. 5. Morbid obesity/history of medical noncompliance/hypertension/hyperlipidemia/diabetes mellitus/GERD Complicates care, management, recovery and prognosis. Continue home medications as indicated. Recommend physical therapy evaluation. Patient may require increased basal insulin, but defer to primary service. Code Visit Inpatient E&M: 58145 [facility] L3
[2019-03-12 07:52] LABS: BNP,B-Type NATRIURETIC PEPTIDE 162.5 pg/mL (0-100)
--- NOTE | 2019-03-12 09:03 | PCM.TXEXTCAR ---
- Diet 03/11/19 23:54 Diet: Nothing Per Oral Diet Comments: except meds - Routine Orders/Code Status O2 Liters per Minute: 3.5 O2 Frequency: run oxygen with BiPAP. Keep PO Greater than or Equal to (%): 90 - BiPAP with oxygen at night and with naps. Routine Lab Work: BMP - weekly Code Status: Full Code - Wound(s) R VIEIRA Wound Type: Stasis Ulcer L VIEIRA Wound Type: Stasis Ulcer R VIEIRA LATERAL Wound Type: Stasis Ulcer COCCYX Wound Type: Pressure Injury - Suggestions for Active Care Times a day to sit in chair: 3 - Therapies Weight Bearing: Full weight bearing Physical Therapy: Eval and Treat Occupational Therapy: Eval and Treat - Allergies/Procedures Done in Hospital Allergies/Adverse Reactions: Allergies naphazoline HCl [From Naphcon] Allergy (Severe, Verified 03/11/19 20:24) affected his breathing AFFECTED HIS BREATHING amlodipine besylate [From Norvasc] Allergy (Verified 03/11/19 20:24) Other dextromethorphan Allergy (Verified 03/11/19 20:24) Other levofloxacin [From Levaquin] Adverse Reaction (Mild, Verified 03/11/19 20:24) made me hyperactive made me hyperactive - Type of Care/Length of Stay Estimated LOS: Convalescent Care Less Than 30 days Type of Care Needed: Skilled Rehab Potential: Fair Prognosis: Fair - Additional Orders/Day of Discharge Day of Discharge: 03/12/19 - Follow Up Care Primary Care Physician: Jack Verdugo MD [Primary Care Provider] - Within 2 Weeks Please Follow Up With: Mackenzie Wallace NP-Ranjit - pulmonology When: 04/18/19 Please Follow Up With: Sly Rubio MD - general surgery follow up for anemia When: 04/20/19
--- NOTE | 2019-03-12 09:08 | DS.PCM_ITS ---
Discharge Date and Diagnosis - Problem List Patient Problems: Active and Suspected Problems (Last Reviewed 03/12/19 @ 01:54 by Garrett Whitley MD) Respiratory failure with hypoxia and hypercapnia (Acute) Pleural effusion, right (Acute) Hyperkalemia (Acute) Hyperglycemia (Acute) Pneumococcal pneumonia (Acute 03/07/19) Date of Admission: 03/11/19 Date of Discharge: 03/12/19 - Primary Discharge Diagnosis Active and Suspected Problems (Last Reviewed 03/12/19 @ 01:54 by Garrett Whitley MD) Respiratory failure with hypoxia and hypercapnia (Acute) Pleural effusion, right (Acute) Hyperkalemia (Acute) Hyperglycemia (Acute) Pneumococcal pneumonia (Acute 03/07/19) - Secondary Discharge Diagnosis Chronic Problems (Last Reviewed 03/12/19 @ 01:54 by Garrett Whitley MD) COPD exacerbation (Chronic) COPD with exacerbation (Chronic 03/07/19) Pickwickian syndrome (Chronic) Iron deficiency anemia (Chronic) etology unknown Acute on chronic diastolic heart failure (Chronic 03/07/19) Thoracic aortic aneurysm (Chronic) Thoracic aortic aneurysm without rupture (Chronic) 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 Small bilateral effusions. Cardiomegaly. Electronically Signed: Cali Jurado, at 21:27 EDT Tel , Service support , Chest CTA 03/11/19 21:42 IMPRESSION: Examination for pulmonary embolus somewhat limited by motion artifact particularly at the lung bases. Negative for large central pulmonary embolus or embolus and most lobar branches. Negative for embolus to the upper lobes. Limited for exclusion of lower lobe embolus secondary to motion artifact. Dilated pulmonary artery with a diameter of 5 cm. Moderate plaque in elongation of the thoracic aorta. 3.3 cm fusiform dilatation of the posterior aortic arch. Cardiomegaly, coronary calcifications status post prior midline sternotomy. Moderate size posterior/dependent right pleural effusion similar in size to prior exam. Complete collapse of the right lower lobe. Mild atelectatic changes of the right upper lobe and middle lobe. Much smaller dependent left pleural effusion with mild atelectatic changes of the left lower lobe. Broad mouth subxiphoid herniation including the transverse colon. Status post cholecystectomy. Electronically Signed: Judith Dexter MD at 22:51 EDT , Service support , Consultations 03/11/19 23:53 Consult: Onc/Wound/industry analyst Routine Comment: Reason for Consult:: Bilateral legs wound Ar: pulmonology Operations: None Procedures: None Summary of Care Provided: The patient is a 74 year old M presents with shortness of breath and hypoxia. Patient was noted to be saturating around 85%. Patient had been placed on his CPAP over the facility but was not having oxygen run through that. Presented to the emergency room and underwent CT angiogram the chest that showed consolidation in the. Patient was put on BiPAP and was slow to recover but eventually was able to maintain sats over the 90% range. Currently, the patient feels well. Per pulmonology, felt that patient developed a significant pulmonary hypertension from the prolonged hypoxemia and just needed time to recover, to which he has at this time. Is still recommending patient continue with BiPAP with sleep with oxygen running through that which patient did not have over at the facility. Elevated BNP though decreased from when he was here just this past week. Patient already being adequately diuresed. Recommendation is the patient to return back to the [facility] facility to continue with rehab services and continue with the previously recommendations. Patient be followed pulmonology, general surgery. Patient did have some hyperkalemia with a potassium of 5.8, that did resolve to 4.8. Suspect related with the patient's respiratory failure. Patient will have a routine BMPs as outpatient. [] Patient Problems: Active and Suspected Problems (Last Reviewed 03/12/19 @ 01:54 by Garrett Whitley MD) Respiratory failure with hypoxia and hypercapnia (Acute) Pleural effusion, right (Acute) Hyperkalemia (Acute) Hyperglycemia (Acute) Pneumococcal pneumonia (Acute 03/07/19) - Physical Exam General: Alert, No apparent distress HEENT: Atraumatic, Normocephalic Oral: Moist Mucosa, No Gingival or Mucosal Lesions/ Ulcerations Neck: No Nodes, Thyroid Normal Size and Texture Lungs: Clear to auscultation, Diminished Cardiovascular: Regular rate, Regular Rhythm, Normal S1, Normal S2 Abdomen: Bowel Sounds Present, Soft, Non Tender, Non-Distended Extremities: No Calf Tenderness, Edema Musculoskeletal: No Tenderness to Palpation of Joints or Extremities, No Muscle Wasting Psych/Mental Status: Normal Affect, Appropriate Vital Signs Temp Pulse Resp BP Pulse Ox 36.7 C 71 20 H 154/72 H 100 03/12/19 08:00 03/12/19 08:10 03/12/19 08:10 03/12/19 08:00 03/12/19 08:10 Oxygen Flow Rate (L/min) 30 Oxygen Delivery Method Bi-pap Weight: 158.9 kg Body Mass Index (BMI) 53.2 Finger Stick Blood Glucose 171 Intake and Output for Last 24 Hours 03/10/19 03/11/19 03/12/19 23:59 23:59 23:59 Intake Total 667.38 / 667.38 Output Total 575 / 575 Balance 92.38 / 92.38 Laboratory Tests Past 24 Hrs 03/11/19 03/11/19 03/11/19 10:30 10:30 10:30 WBC 9.4 RBC 3.78 L Hgb 10.3 L Hct 33.5 L MCV 88.6 MCH 27.2 MCHC 30.7 L RDW Std Deviation 44.2 H RDW Coeff of El 13.8 Plt Count 371 MPV 9.6 Immature Gran % (Auto) 2.600 H Neut % (Auto) 89.5 H Lymph % (Auto) 4.0 L [place] % (Auto) 3.7 Eos % (Auto) 0.0 Baso % (Auto) 0.2 Absolute Neuts (auto) 8.4 H Absolute Lymphs (auto) 0.38 L Nucleated RBC % 0 Differential Comment SCANNED PT 13.8 INR 1.1 APTT 26.3 Specimen Type Sample Site pH Bicarbonate Actual POC Total CO2 Base Excess O2 Saturation O2 % ABG pCO2 ABG pO2 Hilario Test Respiration Rate O2 Delivery Device EPAP IPAP Blood Gas Notified Whom Sodium 131 L Potassium 5.8 H Chloride 89 L Carbon Dioxide 38.0 H Anion Gap 4 L BUN 52 H Creatinine 1.45 H Estim Creat Clear Calc 41.93 Est GFR (MDRD) Af Amer 61 Est GFR (MDRD) Non-Af 50 L BUN/Creatinine Ratio 35.9 H Glucose 389 H Calcium 8.4 L Troponin I < 0.015 B-Natriuretic Peptide 03/11/19 03/11/19 03/12/19 10:30 20:48 05:50 WBC 8.7 RBC 3.76 L Hgb 10.2 L Hct 33.2 L MCV 88.3 MCH 27.1 MCHC 30.7 L RDW Std Deviation 44.3 H RDW Coeff of El 13.9 Plt Count 344 MPV 9.7 Immature Gran % (Auto) Neut % (Auto) Lymph % (Auto) [place] % (Auto) Eos % (Auto) Baso % (Auto) Absolute Neuts (auto) Absolute Lymphs (auto) Nucleated RBC % Differential Comment PT INR APTT Specimen Type ART Sample Site L Radial pH 7.48 H Bicarbonate Actual 40.8 H POC Total CO2 42 Base Excess 17 H O2 Saturation 98 O2 % 35 ABG pCO2 54.6 H ABG pO2 101 H Hilario Test POS Respiration Rate 20 O2 Delivery Device Bi / C PAP EPAP 12 IPAP 18 Blood Gas Notified Whom ED MD Sodium Potassium Chloride Carbon Dioxide Anion Gap BUN Creatinine Estim Creat Clear Calc Est GFR (MDRD) Af Amer Est GFR (MDRD) Non-Af BUN/Creatinine Ratio Glucose Calcium Troponin I B-Natriuretic Peptide 128.9 H 03/12/19 03/12/19 05:50 05:50 WBC RBC Hgb Hct MCV MCH MCHC RDW Std Deviation RDW Coeff of El Plt Count MPV Immature Gran % (Auto) Neut % (Auto) Lymph % (Auto) [place] % (Auto) Eos % (Auto) Baso % (Auto) Absolute Neuts (auto) Absolute Lymphs (auto) Nucleated RBC % Differential Comment PT INR APTT Specimen Type Sample Site pH Bicarbonate Actual POC Total CO2 Base Excess O2 Saturation O2 % ABG pCO2 ABG pO2 Hilario Test Respiration Rate O2 Delivery Device EPAP IPAP Blood Gas Notified Whom Sodium 132 L Potassium 4.8 Chloride 90 L Carbon Dioxide 37.0 H Anion Gap 5 BUN 51 H Creatinine 1.24 Estim Creat Clear Calc 49.03 Est GFR (MDRD) Af Amer 73 Est GFR (MDRD) Non-Af 60 BUN/Creatinine Ratio 41.1 H Glucose 313 H Calcium 8.3 L Troponin I B-Natriuretic Peptide 162.5 H POC Glucose 03/12/19 03/12/19 06:20 00:30 POC Glucose 298 H 326 H Discharge Diet: Low fat/ Low Cholesterol, 1800 Calorie Control Diet, 6 Cup Fluid Restriction, 2000 mg Sodium Diet Discharge Activity: Return to Normal Activity - activity as tolerated Call your doctor if you observe: Fever of 101 or Higher, Shortness of breath, Chest pain Home Medications: Medications to take at Discharge Allopurinol [Zyloprim] 300 mg PO DAILY 06/15/18 Finasteride [Proscar] 5 mg PO DAILY 06/15/18 Metolazone [Zaroxolyn] 2.5 mg PO DAILY 06/15/18 Metoprolol Tartrate [Lopressor (beta maryam)] 50 mg PO BID 06/15/18 Sertraline HCl [Zoloft] 100 mg PO DAILY 06/15/18 Spironolactone [Aldactone] 25 mg PO BID 06/15/18 Atorvastatin Calcium 40 mg PO QHS 12/07/18 Nystatin Powder [Mycostatin Powder] 1 applic TOPICAL BID 12/13/18 Acetaminophen [Tylenol] 1,000 mg PO Q6H PRN PRN tab 01/03/19 Iron Polysaccharide Complex [Ferrex 150] 150 mg PO DAILYCM #30 cap 01/03/19 Menthol/Lanolin/Calamine/Znox [Calmoseptine Ointment] 1 applic TOPICAL BID tube 01/03/19 Mineral Oil/Petrolatum,White [Eucerin] 1 applic TOPICAL 0600,2200 jar 01/03/19 Pantoprazole Sodium [Protonix] 40 mg PO DAILY #30 tab 01/03/19 Aspirin [Aspirin, Baby] 81 mg PO DAILY@0800 tab.chew 03/11/19 Diltiazem CD [Cardizem CD] 240 mg PO DAILY cap 03/11/19 Doxazosin Mesylate [Cardura] 8 mg PO QHS 03/11/19 Furosemide 40 mg PO BID #1 tab 03/11/19 Guaifenesin [Mucinex] 1,200 mg PO BID 5 Days tab 03/11/19 Insulin Glargine [Lantus SoloStar Pen] 10 units SUBCUT BREAKFAST 03/11/19 Insulin Glargine [Lantus SoloStar Pen] 10 units SUBCUT QHS 03/11/19 Insulin Lispro [Humalog KwikPen] See Protocol SUBCUT ACHS insuln.pen 03/11/19 Ipratropium/Albuterol Sulfate [Duoneb] 3 ml INHALATION Q4H.RT ampul.neb 03/11/19 Magnesium Oxide [Mag-Ox 400] 400 mg PO DAILY 03/11/19 Prednisone 10 mg PO DAILY #22 tab.ds.pk 03/11/19 Albuterol Aerosols [Ventolin Aerosols] 2.5 mg INHALATION Q2H PRN PRN vial.neb. 03/12/19 Primary Care Physician: Jack Verdugo MD [Primary Care Provider] - Within 2 Weeks Please Follow Up With: Mackenzie Wallace NP-C - pulmonology When: 04/18/19 Please Follow Up With: Sly Rubio MD - general surgery follow up for anemia When: 04/20/19 Additional Instructions: BiPAP with oxygen QHS and naps. Disposition: Long-Term facility Minutes spent on discharge:: 35 Patient Condition:: Fair Medical Necessity - Tobacco Use Smoking Status: Former smoker Meaningful Use Info Meaningful Use Diagnoses (Choose all that apply): None applicable Code Visit OBSV E&M: 49398 Observation care discharge
[2019-03-12] MEDS: Sertraline 100 MG Tablet PO (09:23)
[2019-03-12] MEDS: Metolazone 2.5 MG Tablet PO (09:23)
[2019-03-12] MEDS: Magnesium Oxide 400 MG Tablet PO (09:24)
[2019-03-12] MEDS: Allopurinol 300 MG Tablet PO (09:24)
[2019-03-12] MEDS: Pantoprazole Sodium 40 MG Tablet PO (09:24)
[2019-03-12] MEDS: Metoprolol Tartrate 50 MG Tablet PO ×2 (09:24→21:25)
[2019-03-12] MEDS: Furosemide 40 MG Tablet PO ×2 (09:25→17:28)
[2019-03-12] MEDS: Iron Polysaccharide Complex 150 MG CAPSULE PO (09:25)
[2019-03-12] MEDS: predniSONE 20 MG Tablet 40 MG PO (09:25)
[2019-03-12] MEDS: dilTIAZem CD 240 MG Capsule PO (09:25)
[2019-03-12] MEDS: Aspirin 81 MG TAB.CHEW PO (09:25)
[2019-03-12] MEDS: Finasteride 5 MG Tablet PO (09:26)
[2019-03-12] MEDS: Spironolactone 25 MG Tablet PO ×2 (09:26→21:25)
[2019-03-12] MEDS: Nystatin Powder 15gm Bottle 1 APPLIC TOPICAL ×2 (09:27→21:26)
[2019-03-12] MEDS: Menthol/Lanolin/Calamine/Znox 113 GM Tube 1 APPLIC TOPICAL ×2 (09:27→21:25)
[2019-03-12] MEDS: guaiFENesin 1,200 MG Tablet 1200 MG PO ×2 (09:32→21:25)
--- NOTE | 2019-03-12 10:51 | CASEMGMT ---
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 Patient from the [facility]. Patient with recent hospitalization and discharge to the [facility] on 03/11/19. Patient readmitted to the hospital from the [facility] on 03/11/19. Patient is wanting to return to the [facility] when medically cleared. [facility] call to the [facility] to get back to this nursing home social worker on whether or not they can accept. Azul Ren PRO SHOP ATTENDANT, AMY
--- NOTE | 2019-03-12 11:32 | CPS ---
pt decreased to 4.5 lpm...saturation 95%. nurse aware of change
--- NOTE | 2019-03-12 13:03 | CASEMGMT ---
Social Work Telephone call from [facility], they are able to accept patient back when medically cleared. Notified medical team. Placed Green Sheet on chart for when patient is ready for discharge. Azul WILLOUGHBY, AMY
[2019-03-12 13:11] LABS: Bedside Glucose 343 mg/dL (70-110)
[2019-03-12 17:40] LABS: Bedside Glucose 356 mg/dL (70-110)
[2019-03-12] MEDS: Doxazosin 4 MG Tablet 8 MG PO (21:24)
[2019-03-12] MEDS: Atorvastatin Calcium 40 MG Tablet PO (21:24)
[2019-03-12 21:35] LABS: Bedside Glucose 392 mg/dL (70-110)
[2019-03-12 23:26] LABS: Bedside Glucose 389 mg/dL (70-110)
[2019-03-13] VITALS (21 sets, daily range): BP systolic 138–144; BP diastolic 59–66; PULSE 47–72; RESP 12–27; TEMP 36.4–36.9; O2SAT 90–100
--- NOTE | 2019-03-13 03:01 | CPS ---
BiPaP's FiO2 titrated from 40% - 35%; pt was maintaining a SpO2 of 100%
[2019-03-13] MEDS: Insulin Lispro 100 UNIT/ML INSULN.PEN SC ×6 (06:59→21:50)
[2019-03-13 07:06] LABS: Bedside Glucose 279 mg/dL (70-110)
[2019-03-13] MEDS: Ipratropium/Albuterol Sulfate 3 ML AMPUL.NEB INHALATION ×5 (07:22→23:15)
[2019-03-13] MEDS: Allopurinol 300 MG Tablet PO (07:54)
[2019-03-13] MEDS: predniSONE 20 MG Tablet 30 MG PO (07:54)
[2019-03-13] MEDS: Aspirin 81 MG TAB.CHEW PO (07:54)
[2019-03-13] MEDS: Iron Polysaccharide Complex 150 MG CAPSULE PO (07:54)
--- NOTE | 2019-03-13 08:19 | PCM.PN.PUL ---
Patient Problems: Active and Suspected Problems (Last Reviewed 03/12/19 @ 01:54 by Garrett Whitley MD) Respiratory failure with hypoxia and hypercapnia (Acute) Pleural effusion, right (Acute) Hyperkalemia (Acute) Hyperglycemia (Acute) Pneumococcal pneumonia (Acute 03/07/19) Subjective: Patient did well overnight. Patient's discharge was delayed secondary to a need for 6 L nasal cannula yesterday. Patient reports subjective improvement in overall condition. Patient is back down to his 4 L nasal cannula. Patient denies any productive cough. Patient did tolerate BiPAP overnight. - Physical Exam General: Alert, Oriented x3, Cooperative, No apparent distress, - - No conversational dyspnea. Morbidly obese. HEENT: Atraumatic, PERRLA, EOMI, Normocephalic, - - Slight scleral injection without icterus Oral: Moist Mucosa, No Gingival or Mucosal Lesions/ Ulcerations Neck: Supple, No JVD, No Nodes, Trachea Midline Lungs: No rhonchi, No wheeze, No rales, Diminished Cardiovascular: Regular rate, Normal S1, Normal S2, No murmurs, No rub noted, No Gallop Abdomen: Bowel Sounds Present, Soft, Non Tender, Non-Distended, Obese Extremities: No cyanosis, Capillary Refill Less than 3 Seconds, Edema Skin: - - No change compared to previous Musculoskeletal: No Tenderness to Palpation of Joints or Extremities Lymphatic: No Cervical, Supraclavicular, or Inguinal Adenopathy Neurological: Cranial nerves II-XII grossly intact, Neuro grossly intact, Motor Exam 5/5 strength throughout Psych/Mental Status: Alert and oriented to time, place, person, mood and affect Vital Signs Temp Pulse Resp BP Pulse Ox 36.5 C L 51 L 16 144/61 H 100 03/13/19 04:20 03/13/19 07:22 03/13/19 07:22 03/13/19 04:20 03/13/19 07:22 Oxygen Flow Rate (L/min) 6 Oxygen Delivery Method Nasal Cannula Weight: 158.9 kg Body Mass Index (BMI) 53.2 Finger Stick Blood Glucose 171 Intake and Output for Last 24 Hours 03/11/19 03/12/19 03/13/19 23:59 23:59 23:59 Intake Total 907.38 / 907.38 920 / 920 Output Total 975 / 975 900 / 900 Balance -67.62 / -67.62 POC Glucose 03/13/19 03/12/19 03/12/19 06:54 23:13 21:21 POC Glucose 279 H 389 H 392 H 03/12/19 03/12/19 17:26 11:34 POC Glucose 356 H 343 H Medical Necessity - Tobacco Use Smoking Status: Former smoker Assessment/Plan All Active Problems (Last Reviewed 03/12/19 @ 01:54 by Garrett Whitley MD) Respiratory failure with hypoxia and hypercapnia (Acute) Pleural effusion, right (Acute) Hyperkalemia (Acute) Hyperglycemia (Acute) Pneumococcal pneumonia (Acute 03/07/19) History of repair of thoracic aortic aneurysm (Resolved 12/11/09) H/O aortic valve replacement (Resolved 12/11/09) Acute on chronic respiratory failure with hypoxia and hypercapnia (Resolved) Bilateral lower leg cellulitis (Resolved) CAP (community acquired pneumonia) (Resolved) CHF exacerbation (Resolved) CHF exacerbation (Resolved) Hyperkalemia (Resolved) Hypoglycemia (Resolved) Hypoglycemia (Resolved) Hypomagnesemia (Resolved) Hyponatremia (Resolved) Pulmonary embolism on right (Resolved) Shortness of breath (Resolved) Tobacco abuse (Resolved) Wheezing (Resolved) RECOMMENDATIONS: 1. Continue BiPAP therapy as tolerated. Wean oxygen as tolerated. 2. Continue bronchodilators. Wean prednisone therapy to 30 mg and continue to wean over the next 9-12 days 3. Increase basal insulin dosing 4. Continue ceftriaxone as ordered to complete antibiotic course. 5. Transfuse blood products if repeat hemoglobin is less than 7 g/dL. 6. Okay to discharge from a pulmonary perspective. We will continue to diurese as tolerated. 7. Follow-up with nurse practitioner 2 weeks after discharge from the nursing facility. IMPRESSIONS: 1. Acute on chronic combined respiratory failure, likely secondary to COPD exacerbation due to pneumococcal pneumonia Recommendations from previous hospitalization should be continued. Clinical suspicion the patient developed significant pulmonary hypertension from prolonged hypoxemia and just needed time to recover. Patient does not appear to have any significant change in overall status. Dilated pulmonary artery on CT scan would be consistent with this finding. ABG shows adequate oxygenation and compensated ventilation. Patient should continue BiPAP with sleep with FiO2 bleed. Do not believe patient would benefit from prolonged hospitalization from a pulmonary standpoint. BNP may be slightly elevated given acute hypoxemic episode, but patient was already recommended diuresis on discharge from last hospitalization. No concerns from a respiratory standpoint. Patient can follow-up 2 weeks after discharge from a rehab facility. 2. Anemia Patient's hemoglobin has been stable throughout the hospitalization. Patient is receiving aggressive diuresis, which will help his hemoglobin. Patient reportedly would benefit from an EGD as an outpatient. No indication for repeat transfusion at this time. 3. Chronic heart failure with preserved ejection fraction/status post aortic valve replacement/atrial fibrillation Diuretics currently in place and patient is tolerating well. Cardiology consultation is suggestive of underlying pneumonia as the primary process. Would defer diuretic recommendations to cardiology, but it appears to be improving significantly with diuresis. Would likely continue until clinical signs of contraction. No labs were completed this morning. 4. Known history of obstructive sleep apnea The patient has a known history of obstructive sleep apnea, for which he is prescribed outpatient BiPAP therapy. However, despite the patient's insistence that he utilizes his BiPAP, prior office visits during which time his compliance report was reviewed, clearly indicated that the patient was not utilizing his nocturnal Pap therapy as prescribed. This was confirmed by the family during my evaluation. Patient appears to have responded well to BiPAP overnight while in the hospital. This should be continued with any ECF placement. Continue with any sleep. 5. Morbid obesity/history of medical noncompliance/hypertension/hyperlipidemia/diabetes mellitus/GERD Complicates care, management, recovery and prognosis. Continue home medications as indicated. Recommend physical therapy evaluation. Patient's basal insulin was increased. Steroids were decreased. This should help overall blood sugars, but will need to be followed closely as steroids are decreased. Code Visit Inpatient E&M: 92700 [facility] Hosp L2
--- NOTE | 2019-03-13 09:06 | PN_ITS ---
Patient Problems: Active and Suspected Problems (Last Reviewed 03/12/19 @ 01:54 by Garrett Whitley MD) Respiratory failure with hypoxia and hypercapnia (Acute) Pleural effusion, right (Acute) Hyperkalemia (Acute) Hyperglycemia (Acute) Pneumococcal pneumonia (Acute 03/07/19) Subjective: Patient denies any symptoms. Denies any SOB, chest pain. +Non-productive cough. Was on oxygen NC dropped down to pulse ox in the mid 80s. Placed back on BiPAP and remains in the 80s. Vitals/I&O's: Vital Signs Temp Pulse Resp BP Pulse Ox 36.5 C L 51 L 16 144/61 H 100 03/13/19 04:20 03/13/19 07:22 03/13/19 07:22 03/13/19 04:20 03/13/19 07:22 Oxygen Flow Rate (L/min) 6 Oxygen Delivery Method Nasal Cannula Weight: 158.9 kg Body Mass Index (BMI) 53.2 Finger Stick Blood Glucose 171 Intake and Output for Last 24 Hours 03/11/19 03/12/19 03/13/19 23:59 23:59 23:59 Intake Total 907.38 / 907.38 920 / 920 Output Total 975 / 975 900 / 900 Balance -67.62 / -67.62 General: Alert, No apparent distress, - - on BiPAP, no respiratory distress, no conversational dyspnea. HEENT: Atraumatic, Normocephalic Oral: Moist Mucosa, No Gingival or Mucosal Lesions/ Ulcerations Neck: No Nodes, Trachea Midline Lungs: Diminished, - - coarse breath sounds bilaterally Cardiovascular: Regular rate, Regular Rhythm, Normal S1, Normal S2 Abdomen: Bowel Sounds Present, Soft, Non Tender, Non-Distended, Obese Extremities: No Calf Tenderness, Edema Skin: - - lymphedematous changes to LE Musculoskeletal: No Tenderness to Palpation of Joints or Extremities, No Muscle Wasting Neurological: Sensory exam intact to light touch and pain, Coordination normal Psych/Mental Status: Normal Affect, Appropriate Laboratory Results 03/12/19 11:34: POC Glucose 343 H 03/12/19 17:26: POC Glucose 356 H 03/12/19 21:21: POC Glucose 392 H 03/12/19 23:13: POC Glucose 389 H 03/13/19 06:54: POC Glucose 279 H Current Medications Acetaminophen (Tylenol) 1,000 mg PO Q6H PRN PRN PRN Reason: Pain Score 1-3/10 Albuterol Sulfate (Ventolin Aerosols) 2.5 mg INHALATION Q2H PRN PRN PRN Reason: SOB/Wheezing Albuterol/Ipratropium (Duoneb) 3 ml INHALATION Q4HWA.RT [facility] Last Admin: 03/13/19 07:22 Dose: 3 ml Documented by: Allopurinol (Zyloprim) 300 mg PO DAILYCM [facility] Last Admin: 03/13/19 07:54 Dose: 300 mg Documented by: Aspirin (Aspirin, Baby) 81 mg PO DAILY@0800 [facility] Last Admin: 03/13/19 07:54 Dose: 81 mg Documented by: Atorvastatin Calcium (Lipitor) 40 mg PO QHS [facility] Last Admin: 03/12/19 21:24 Dose: 40 mg Documented by: Calamine/Phenol (Calmoseptine Ointment) 1 applic TOPICAL BID [facility]; Protocol Last Admin: 03/12/19 21:25 Dose: 1 applicatio Documented by: Dextrose (D50w Syringe) 0 gm IV X1 PRN; Protocol PRN Reason: Hypoglycemia Diltiazem HCl (Cardizem Cd) 240 mg PO DAILY [facility] Last Admin: 03/12/19 09:25 Dose: 240 mg Documented by: Doxazosin Mesylate (Cardura) 8 mg PO QHS [facility] Last Admin: 03/12/19 21:24 Dose: 8 mg Documented by: Finasteride (Proscar) 5 mg PO DAILY [facility] Last Admin: 03/12/19 09:26 Dose: 5 mg Documented by: Furosemide (Lasix) 40 mg PO BIDLX [facility] Last Admin: 03/12/19 17:28 Dose: 40 mg Documented by: Glucagon () 1 mg IM .X1 PRN PRN Reason: Hypoglycemia Guaifenesin (Mucinex) 1,200 mg PO BID [facility] Last Admin: 03/12/19 21:25 Dose: 1,200 mg Documented by: Insulin Glargine (Lantus (Bkc)) 15 units SC BID [facility] Insulin Human Lispro (Humalog Kwikpen (Bkc)) 0 unit SC Q6 [facility]; Protocol Last Admin: 03/13/19 06:59 Dose: 4 units Documented by: Magnesium Oxide (Mag-Ox 400) 400 mg PO DAILY [facility] Last Admin: 03/12/19 09:24 Dose: 400 mg Documented by: Metolazone (Zaroxolyn) 2.5 mg PO DAILY [facility] Last Admin: 03/12/19 09:23 Dose: 2.5 mg Documented by: Metoprolol Tartrate (Lopressor (Beta Kristel)) 50 mg PO BID [facility] Last Admin: 03/12/19 21:25 Dose: 50 mg Documented by: Multi-Ingredient Cream (Eucerin) 1 applic TOPICAL 0600,2200 [facility]; Protocol Last Admin: 03/13/19 06:59 Dose: 1 applicatio Documented by: Nystatin (Mycostatin Powder) 1 applic TOPICAL BID [facility]; Protocol Last Admin: 03/12/19 21:26 Dose: 1 applicatio Documented by: Ondansetron HCl (Zofran) 4 mg IV Q8H PRN PRN PRN Reason: NAUSEA/VOMITING Pantoprazole Sodium (Protonix) 40 mg PO DAILY [facility] Last Admin: 03/12/19 09:24 Dose: 40 mg Documented by: Polysaccharide Iron Complex ([facility]rex 150) [facility] Last Admin: 03/13/19 07:54 Dose: 150 mg Documented by: Prednisone () 30 mg PO DAILY@0800 [facility] Last Admin: 03/13/19 07:54 Dose: 30 mg Documented by: Sertraline HCl (Zoloft) 100 mg PO DAILY [facility] Last Admin: 03/12/19 09:23 Dose: 100 mg Documented by: Sodium Chloride () 5 - 15 ml IV UD PRN PRN Reason: SALINE FLUSH Spironolactone (Aldactone) 25 mg PO BID [facility] Last Admin: 03/12/19 21:25 Dose: 25 mg Documented by: STROKE Vital Signs/Narrative: Vital Signs Pulse Resp Pulse Ox 03/13/19 07:22 51 L 16 100 03/13/19 06:53 57 L 03/13/19 05:23 53 L 19 H 98 Medical Necessity - Tobacco Use Smoking Status: Former smoker Assessment/Plan All Active Problems (Last Reviewed 03/12/19 @ 01:54 by Garrett Whitley MD) Respiratory failure with hypoxia and hypercapnia (Acute) Pleural effusion, right (Acute) Hyperkalemia (Acute) Hyperglycemia (Acute) Pneumococcal pneumonia (Acute 03/07/19) History of repair of thoracic aortic aneurysm (Resolved 12/11/09) H/O aortic valve replacement (Resolved 12/11/09) Acute on chronic respiratory failure with hypoxia and hypercapnia (Resolved) Bilateral lower leg cellulitis (Resolved) CAP (community acquired pneumonia) (Resolved) CHF exacerbation (Resolved) CHF exacerbation (Resolved) Hyperkalemia (Resolved) Hypoglycemia (Resolved) Hypoglycemia (Resolved) Hypomagnesemia (Resolved) Hyponatremia (Resolved) Pulmonary embolism on right (Resolved) Shortness of breath (Resolved) Tobacco abuse (Resolved) Wheezing (Resolved) The patient is a 74 year old M a 2 to 3-week history of shortness of breath. Patient was admitted to stepdown and then to the ICU started on a BiPAP. Patient had atrial for ablation with RVR as well as heart failure and pneumococcal pneumonia. Patient slowly did improve with antibiotics, steroids and diuresis. Patient was sent to a senior care facility and patient was put on BiPAP, however, patient was not on oxygen with that and pulse ox was noted to be in the 50s. Brought to the emergency room and pulse ox was noted to be in the 80s with BiPAP and the decision was made to hospitalize the patient. On the , patient was doing well but had slight increased oxygen demands around 6 L so decision was to monitor the patient and on the , patient is continued to have increased oxygen demands and had to go back onto BiPAP. 1. acute hypoxic and hypercapnic respiratory failure. * multifactorial: Due to not being on oxygen at his facility but is ongoing because of multitude of issues, including obesity hypoventilation, sleep apnea, CHF and right lower lobe consolidation. * CCM following * back on BiPAP, wean as tolerated * patient with consolidation in RLL, will try vest therapy (if it will fit) to see if can expectorate. * continue guaifenesin 2. AECOPD * ongoing. pred taper over 12-14 days * BDs 3. Acute HFpEF * EF 55% * resume IV lasix Weight going back up to 158kg, was 144 in December * continue spironolactone, metolazone. * fluid restrict 4. DM2: * uncontrolled, elevated * basal increased to 15 (from 10) BID * on SSI * add scheduled prandial insulin * anticipated decreased insulin needs as prednisone is tapered off 5. VTE prophylaxis: SCDs 6. Disposition: pending. still with tenuous oxygen status. Will need to optimize further before discharge. Karnofsky score 30-40. High likelihood of recurrent readmissions even once medically optimized. Other previous problems: a. Pneumococcal pneumonia * resolved * + urinary antigen and Cx positive for alpha hemolytic strep * antibiotics completed * pulm toilet b. Anemia * chronic, currently stable * transfused 2 units PRBCs during last admission admission * heme positive stools * had colonoscopy on 12/12, which showed hemorroids at that time * had EGD on 07/28/18 which was normal * DW Dr. Rubio, advised holding off on any endoscopy at this time. Particularlly since he had relatively normal endoscopy relatively recently, but also he ought be in better physical condition * Iron has been low, but ferritin high, therefore, not iron-deficient. * complicated by clopidogrel, and it is unclear why he is on it, changed to ASA c. pAfib * controlled on metoprolol and dilt * given then anemia and heme positive stools, hold off on oral anticoagulants for now. * aspirin * follow up with cardiology as outpt. d. Severe sepsis: resolved. Secondary to pneumonia as well as UTI. e. Serratia UTI: Levaquin for on the to complete a 7 day course of abx Code Visit Inpatient E&M: 26323 Subs Hosp L3
[2019-03-13] MEDS: Nystatin Powder 15gm Bottle 1 APPLIC TOPICAL ×2 (10:12→21:56)
[2019-03-13] MEDS: Furosemide 40 MG/4 ML Vial IV ×2 (10:13→18:03)
[2019-03-13] MEDS: Magnesium Oxide 400 MG Tablet PO (10:14)
[2019-03-13] MEDS: guaiFENesin 1,200 MG Tablet 1200 MG PO ×2 (10:14→21:39)
[2019-03-13] MEDS: dilTIAZem CD 240 MG Capsule PO (10:14)
[2019-03-13] MEDS: Metoprolol Tartrate 50 MG Tablet PO ×2 (10:14→21:39)
[2019-03-13] MEDS: Spironolactone 25 MG Tablet PO ×2 (10:14→21:39)
[2019-03-13] MEDS: Finasteride 5 MG Tablet PO (10:14)
[2019-03-13] MEDS: Pantoprazole Sodium 40 MG Tablet PO (10:14)
[2019-03-13] MEDS: Metolazone 2.5 MG Tablet PO (10:14)
[2019-03-13] MEDS: Sertraline 100 MG Tablet PO (10:14)
[2019-03-13] MEDS: Menthol/Lanolin/Calamine/Znox 113 GM Tube 1 APPLIC TOPICAL ×2 (10:15→21:40)
[2019-03-13 11:16] LABS: Bedside Glucose 205 mg/dL (70-110)
--- NOTE | 2019-03-13 11:35 | CPS ---
Pt belen Bipap well. Fio2 decreased to 50%....96% on 50%
[2019-03-13 17:00] LABS: Bedside Glucose 359 mg/dL (70-110)
[2019-03-13] MEDS: 0.9% Saline Lock 10 ML Syringe IV (18:04)
[2019-03-13] MEDS: Atorvastatin Calcium 40 MG Tablet PO (21:39)
[2019-03-13] MEDS: Doxazosin 4 MG Tablet 8 MG PO (21:39)
[2019-03-13 22:06] LABS: Bedside Glucose 388 mg/dL (70-110)
[2019-03-14] VITALS (18 sets, daily range): BP systolic 120–140; BP diastolic 52–61; PULSE 55–70; RESP 12–28; TEMP 36.2–36.8; O2SAT 91–98
[2019-03-14 01:16] LABS: Bedside Glucose 385 mg/dL (70-110)
[2019-03-14 06:04] LABS: Absolute Lymphocyte Count 0.85 X10^3/uL (0.83-4.51); Absolute Neutrophil Count 9.8 X10^3/uL (2.0-7.7); Basophil# 0.02 X10^3/uL; Basophil% 0.2 % (0-1); Eosinophil# 0.03 X10^3/uL; Eosinophils% 0.3 % (0-5); Hematocrit 36.3 % (40-54); Hemoglobin 11.1 g/dL (13.0-16.5); Lymphocyte # 0.85 X10^3/ul (4.0); Lymphocyte % 7.2 % (19-41); Mean Corp Hgb Conc 30.6 g/dL (32-36); Mean Corpuscular Hgb 27.4 pg (27.0-32.0); Mean Corpuscular Volume 89.6 fL (80-94); Mean Platelet Vol. 9.4 fl (6.2-12.0); Monocyte# 0.77 X10^3/uL; Monocyte% 6.5 % (0-10); NRBC Flagged by Analyzer 0 % (0-5); Neutrophil # 9.76 X10^3/uL (2.7-7.7); Neutrophil % 82.8 % (47-70); Platelet Count 364 K/mm3 (150-450); RBC Distribution Width CV 14.4 % (11.6-14.6); RBC Distribution Width SD 46.3 fl (35.1-43.9); Red Blood Count 4.05 M/mm3 (4.6-6.2); White Blood Count 11.8 K/mm3 (4.4-11.0)
[2019-03-14 06:15] LABS: Anion Gap 5 (5-15); BUN 52 mg/dL (7-18); BUN/Creat Ratio 36.9 RATIO (10-20); Calcium,Total 8.6 mg/dL (8.5-10.1); Chloride 87 mmol/L (98-107); Creatinine, Serum 1.41 mg/dL (0.70-1.30); EST Glomerular Filtration Rate 52 mL/min (>60); Est Glom Filt Rate - Afr Amer 63 mL/min (>60); Estimated Creatinine Clearance 43.12 ml/min; Glucose 387 mg/dL (74-106); Sodium Level 134 mmol/L (136-145)
[2019-03-14] MEDS: Ipratropium/Albuterol Sulfate 3 ML AMPUL.NEB INHALATION ×4 (06:55→19:30)
--- NOTE | 2019-03-14 06:57 | PCM.PN.PUL ---
Patient Problems: Active and Suspected Problems (Last Reviewed 03/12/19 @ 01:54 by Garrett Whitley MD) Respiratory failure with hypoxia and hypercapnia (Acute) Pleural effusion, right (Acute) Hyperkalemia (Acute) Hyperglycemia (Acute) Subjective: The patient was seen and examined at the bedside this morning. Events from the last 24 hours have been reviewed. The patient is currently afebrile, hemodynamically stable and maintaining appropriate oxygen saturations on 5 L/min via nasal cannula. The patient was tolerant of BiPAP overnight. Objective: The patient's most recent lab work, culture data and imaging studies have all been personally reviewed. - Physical Exam General: Alert, Cooperative, No apparent distress, - - Sitting in bedside recliner HEENT: Atraumatic, PERRLA, Normocephalic Oral: No Gingival or Mucosal Lesions/ Ulcerations Neck: Supple, No Nodes, Trachea Midline Lungs: No rhonchi, No wheeze, No rales, Diminished Cardiovascular: Regular rate, Regular Rhythm, Normal S1, Normal S2, No murmurs Abdomen: Bowel Sounds Present, Soft, Non Tender, Obese Extremities: No clubbing, No cyanosis, Edema Skin: - - No change from previous Musculoskeletal: No Muscle Wasting Lymphatic: No Cervical, Supraclavicular, or Inguinal Adenopathy Neurological: Cranial nerves II-XII grossly intact, Neuro grossly intact Psych/Mental Status: Normal Affect, Appropriate Vital Signs Temp Pulse Resp BP Pulse Ox 97.7 F L 55 L 16 132/58 H 96 03/14/19 06:00 03/14/19 06:51 03/14/19 06:00 03/14/19 06:00 03/14/19 06:00 Oxygen Flow Rate (L/min) 6 Oxygen Delivery Method Bi-pap Weight: 350 lb 5.032 oz Body Mass Index (BMI) 53.2 Finger Stick Blood Glucose 171 Intake and Output for Last 24 Hours 03/12/19 03/13/19 03/14/19 23:59 23:59 23:59 Intake Total 907.38 / 907.38 1700 / 1840 240 / 240 Output Total 975 / 975 1930 / 2955 1700 / 1700 Balance -67.62 / -67.62 -230 / -1115 -1460 / -1460 Laboratory Tests Past 24 Hrs 03/14/19 03/14/19 05:45 05:45 WBC 11.8 H RBC 4.05 L Hgb 11.1 L Hct 36.3 L MCV 89.6 MCH 27.4 MCHC 30.6 L RDW Std Deviation 46.3 H RDW Coeff of El 14.4 Plt Count 364 MPV 9.4 Immature Gran % (Auto) 3.000 H Neut % (Auto) 82.8 H Lymph % (Auto) 7.2 L Ripley % (Auto) 6.5 Eos % (Auto) 0.3 Baso % (Auto) 0.2 Absolute Neuts (auto) 9.8 H Absolute Lymphs (auto) 0.85 Nucleated RBC % 0 Sodium 134 L Potassium 5.0 Chloride 87 L Carbon Dioxide 42.0 H Anion Gap 5 BUN 52 H Creatinine 1.41 H Estim Creat Clear Calc 43.12 Est GFR (MDRD) Af Amer 63 Est GFR (MDRD) Non-Af 52 L BUN/Creatinine Ratio 36.9 H Glucose 387 H Calcium 8.6 POC Glucose 03/14/19 03/13/19 03/13/19 01:08 21:47 16:34 POC Glucose 385 H 388 H 359 H 03/13/19 03/13/19 10:56 06:54 POC Glucose 205 H 279 H Clinical Impression(s) from Imaging Studies Chest X-Ray 03/11/19 20:27 IMPRESSION: No consolidation. Small bilateral effusions. Cardiomegaly. Electronically Signed: Cali Jurado, at 21:27 EDT Tel , Service support , Chest CTA 03/11/19 21:42 IMPRESSION: Examination for pulmonary embolus somewhat limited by motion artifact particularly at the lung bases. Negative for large central pulmonary embolus or embolus and most lobar branches. Negative for embolus to the upper lobes. Limited for exclusion of lower lobe embolus secondary to motion artifact. Dilated pulmonary artery with a diameter of 5 cm. Moderate plaque in elongation of the thoracic aorta. 3.3 cm fusiform dilatation of the posterior aortic arch. Cardiomegaly, coronary calcifications status post prior midline sternotomy. Moderate size posterior/dependent right pleural effusion similar in size to prior exam. Complete collapse of the right lower lobe. Mild atelectatic changes of the right upper lobe and middle lobe. Much smaller dependent left pleural effusion with mild atelectatic changes of the left lower lobe. Broad mouth subxiphoid herniation including the transverse colon. Status post cholecystectomy. Electronically Signed: Judith Dexter MD at 22:51 EDT , Service support , Medical Necessity - Tobacco Use Smoking Status: Former smoker Assessment/Plan All Active Problems (Last Reviewed 03/12/19 @ 01:54 by Garrett Whitley MD) Respiratory failure with hypoxia and hypercapnia (Acute) Pleural effusion, right (Acute) Hyperkalemia (Acute) Hyperglycemia (Acute) Pneumococcal pneumonia (Acute 03/07/19) History of repair of thoracic aortic aneurysm (Resolved 12/11/09) H/O aortic valve replacement (Resolved 12/11/09) Acute on chronic respiratory failure with hypoxia and hypercapnia (Resolved) Bilateral lower leg cellulitis (Resolved) CAP (community acquired pneumonia) (Resolved) CHF exacerbation (Resolved) CHF exacerbation (Resolved) Hyperkalemia (Resolved) Hypoglycemia (Resolved) Hypoglycemia (Resolved) Hypomagnesemia (Resolved) Hyponatremia (Resolved) Pulmonary embolism on right (Resolved) Shortness of breath (Resolved) Tobacco abuse (Resolved) Wheezing (Resolved) RECOMMENDATIONS: 1. Continue BiPAP therapy as tolerated. Wean oxygen as tolerated. 2. Continue bronchodilators. Continue prednisone therapy and wean over 12 to 14 days. 3. Continue diuretic therapy. 4. Transfuse blood products if hemoglobin is less than 7 g/dL. 5. Encourage incentive spirometer use and mobilize patient as tolerated. 6. Follow-up with nurse practitioner 2 weeks after discharge from the nursing facility. IMPRESSIONS: 1. Acute on chronic combined respiratory failure, likely secondary to COPD exacerbation due to pneumococcal pneumonia Recommendations from previous hospitalization should be continued. Clinical suspicion the patient developed significant pulmonary hypertension from prolonged hypoxemia. Dilated pulmonary artery on CT scan would be consistent with this finding. Patient should continue BiPAP with sleep with FiO2 bleed. Do not believe patient would benefit from prolonged hospitalization from a pulmonary standpoint. Continue diuretic therapy as ordered. 2. Anemia Patient's hemoglobin has been stable throughout the hospitalization. Patient is receiving aggressive diuresis, which will help his hemoglobin. Patient reportedly would benefit from an EGD as an outpatient. No indication for repeat transfusion at this time. 3. Chronic heart failure with preserved ejection fraction/status post aortic valve replacement/atrial fibrillation Diuretics currently in place and patient is tolerating well. Would defer diuretic recommendations to cardiology, but it appears to be improving significantly with diuresis. 4. Known history of obstructive sleep apnea The patient has a known history of obstructive sleep apnea, for which he is prescribed outpatient BiPAP therapy. However, despite the patient's insistence that he utilizes his BiPAP, prior office visits during which time his compliance report was reviewed, clearly indicated that the patient was not utilizing his nocturnal Pap therapy as prescribed. Patient appears to have responded well to BiPAP while in the hospital. This should be continued with any ECF placement. Continue with any sleep. 5. Morbid obesity/history of medical noncompliance/hypertension/hyperlipidemia/diabetes mellitus/GERD Complicates care, management, recovery and prognosis. Continue home medications as indicated. This note was generated with [employer] dictation software. It may contain incorrect words, spelling, and punctuation that were not noted in checking the note before signing. Code Visit Inpatient E&M: 42445 Subs Hosp L2
[2019-03-14] MEDS: Aspirin 81 MG TAB.CHEW PO (07:37)
[2019-03-14] MEDS: predniSONE 20 MG Tablet 30 MG PO (07:37)
[2019-03-14] MEDS: Allopurinol 300 MG Tablet PO (07:37)
[2019-03-14] MEDS: Iron Polysaccharide Complex 150 MG CAPSULE PO (07:38)
[2019-03-14] MEDS: Insulin Lispro 100 UNIT/ML INSULN.PEN SC ×7 (07:38→21:54)
[2019-03-14 07:51] LABS: Bedside Glucose 358 mg/dL (70-110)
[2019-03-14] MEDS: Menthol/Lanolin/Calamine/Znox 113 GM Tube 1 APPLIC TOPICAL ×2 (08:56→21:33)
[2019-03-14] MEDS: Nystatin Powder 15gm Bottle 1 APPLIC TOPICAL ×2 (08:57→21:34)
[2019-03-14] MEDS: Furosemide 40 MG/4 ML Vial IV ×2 (08:58→17:23)
[2019-03-14] MEDS: Spironolactone 25 MG Tablet PO ×2 (09:00→21:32)
[2019-03-14] MEDS: dilTIAZem CD 240 MG Capsule PO (09:00)
[2019-03-14] MEDS: Metolazone 2.5 MG Tablet PO (09:00)
[2019-03-14] MEDS: Sertraline 100 MG Tablet PO (09:00)
[2019-03-14] MEDS: Metoprolol Tartrate 50 MG Tablet PO ×2 (09:00→21:32)
[2019-03-14] MEDS: guaiFENesin 1,200 MG Tablet 1200 MG PO ×2 (09:00→21:31)
[2019-03-14] MEDS: Finasteride 5 MG Tablet PO (09:00)
[2019-03-14] MEDS: Magnesium Oxide 400 MG Tablet PO (09:00)
[2019-03-14] MEDS: Pantoprazole Sodium 40 MG Tablet PO (09:00)
--- NOTE | 2019-03-14 09:27 | CASEMGMT ---
[facility] faxed updates to [place]. Brokoe REYES [employer]
--- NOTE | 2019-03-14 10:37 | NURSING ---
wound photo: right leg
--- NOTE | 2019-03-14 10:38 | NURSING ---
wound photo: left lower leg
[2019-03-14 11:10] LABS: Bedside Glucose 357 mg/dL (70-110)
--- NOTE | 2019-03-14 11:29 | CASEMGMT ---
Patient has a Healthcare POA and Healthcare LW on file in e-chart. SW printed documents and placed them in his paper chart. Brooke REYES MSW
--- NOTE | 2019-03-14 15:22 | PCM.PROGNOTE ---
Subjective: The patient is a 74-year-old male with a past medical history of paroxysmal atrial fibrillation, super obesity, COPD, iron deficiency anemia, obstructive sleep apnea, hypertension, thoracic aortic aneurysm, gout, BPH, hypomagnesemia, diabetes mellitus type 2, chronic respiratory failure with hypoxia and hypercapnia, chronic diastolic congestive heart failure with preserved ejection fraction, hyperlipidemia and lymphedema versus venous insufficiency of the lower extremities who was admitted to [facility] on 03/05/2019 and discharged on 03/11/2019 after being treated for pneumococcal pneumonia and atrial fibrillation with rapid ventricular response. He completed a 7-day course of antibiotics and was discharged to the [facility] on 03/11/2019. He returned to the emergency room on 03/11/2019 later in the day for an oxygen saturation of 55% at the [facility]. The family stated that this was done on room air rather than the 5 L nasal cannula he wears chronically. He required BiPAP in the emergency department. Apparently at the [facility] he was placed on CPAP with no O2 bleed in. When he was seen in consultation by Dr. Joyner on 03/12/2019 he was back to baseline. Lungs were diminished but clear to auscultation. Despite the patient's insistence that he uses his BiPAP as instructed the compliance report indicates that he is not using his nocturnal Pap therapy as prescribed. This was confirmed by the family. Afebrile, vital signs stable, he is 95% saturated on a 6 L nasal cannula. Lab today showed a hemoglobin of 11.1 which is stable. The white blood cell count is elevated at 11.8 but he is on steroids. Platelets are normal. Sodium is mildly decreased at 134 but it is up from 131 at admission. A serum bicarb is 42. Creatinine is stable 1.41 and the BUN is 52. Blood sugars are not adequately controlled despite adjustments in insulin made by Dr. Robles yesterday. BNP is 162 which is not that remarkable in a patient with stage III chronic renal failure. He denies shortness of breath today and also denies cough, chest pain. He has not moved his bowels in nthe past few days and feels he needs a laxative. - Physical Exam Vitals/I&O's: Vital Signs Temp Pulse Resp BP Pulse Ox 97.9 F 65 15 126/56 H 98 03/14/19 15:00 03/14/19 15:00 03/14/19 15:00 03/14/19 15:00 03/14/19 15:00 Oxygen Flow Rate (L/min) 6 Oxygen Delivery Method Bi-pap Weight: 350 lb 5.032 oz Body Mass Index (BMI) 53.2 Finger Stick Blood Glucose 171 Intake and Output for Last 24 Hours 03/12/19 03/13/19 03/14/19 23:59 23:59 23:59 Intake Total 907.38 / 907.38 1700 / 1840 480 / 480 Output Total 975 / 975 1930 / 2955 2074 / 2074 Balance -67.62 / -67.62 -230 / -1115 -1595 / -1595 General: Alert, Oriented x3, Cooperative, No apparent distress, - - He is sitting in a recliner at the bedside with his legs elevated. HEENT: Atraumatic, PERRLA, EOMI, Normocephalic Oral: Moist Mucosa, No Gingival or Mucosal Lesions/ Ulcerations Neck: Supple, Trachea Midline Lungs: No rhonchi, No wheeze, No rales, Diminished Cardiovascular: Regular rate, Regular Rhythm, Normal S1, Normal S2, No rub noted, No Gallop, - - Telemetry shows sinus rhythm and sinus bradycardia with PVCs and no A. fib. Abdomen: Bowel Sounds Present, Soft, Non Tender, Non-Distended, Obese, - - he has an incisional hernia at the caudal portion of the sternal incision Extremities: No cyanosis, - - Both legs are wrapped with Juan wraps. Skin: No rashes Neurological: Cranial nerves II-XII grossly intact, Neuro grossly intact Psych/Mental Status: Normal Affect, Appropriate Laboratory Results 03/13/19 16:34: POC Glucose 359 H 03/13/19 21:47: POC Glucose 388 H 03/14/19 01:08: POC Glucose 385 H 03/14/19 05:45: WBC 11.8 H, RBC 4.05 L, Hgb 11.1 L, Hct 36.3 L, MCV 89.6, MCH 27.4, MCHC 30.6 L, RDW Std Deviation 46.3 H, RDW Coeff of El 14.4, Plt Count 364, MPV 9.4, Immature Gran % (Auto) 3.000 H, Neut % (Auto) 82.8 H, Lymph % (Auto) 7.2 L, Brule % (Auto) 6.5, Eos % (Auto) 0.3, Baso % (Auto) 0.2, Absolute Neuts (auto) 9.8 H, Absolute Lymphs (auto) 0.85, Nucleated RBC % 0 03/14/19 05:45: Sodium 134 L, Potassium 5.0, Chloride 87 L, Carbon Dioxide 42.0 H, Anion Gap 5, BUN 52 H, Creatinine 1.41 H, Estim Creat Clear Calc 43.12, Est GFR (MDRD) Af Amer 63, Est GFR (MDRD) Non-Af 52 L, BUN/Creatinine Ratio 36.9 H, Glucose 387 H, Calcium 8.6 03/14/19 07:22: POC Glucose 358 H 03/14/19 11:03: POC Glucose 357 H Current Medications Acetaminophen (Tylenol) 1,000 mg PO Q6H PRN PRN PRN Reason: Pain Score 1-3/10 Albuterol Sulfate (Ventolin Aerosols) 2.5 mg INHALATION Q2H PRN PRN PRN Reason: SOB/Wheezing Albuterol/Ipratropium (Duoneb) 3 ml INHALATION Q4HWA.RT [facility] Last Admin: 03/14/19 14:37 Dose: 3 ml Documented by: [facility] ([facility]) [facility] Last Admin: 03/14/19 07:37 Dose: 300 mg Documented by: Aspirin (Aspirin, Baby) 81 mg PO DAILY@0800 [facility] Last Admin: 03/14/19 07:37 Dose: 81 mg Documented by: Atorvastatin Calcium (Lipitor) 40 mg PO QHS [facility] Last Admin: 03/13/19 21:39 Dose: 40 mg Documented by: Calamine/Phenol (Calmoseptine Ointment) 1 applic TOPICAL BID [facility]; Protocol Last Admin: 03/14/19 08:56 Dose: 1 applicatio Documented by: Dextrose (D50w Syringe) 0 gm IV X1 PRN; Protocol PRN Reason: Hypoglycemia Diltiazem HCl (Cardizem Cd) 240 mg PO DAILY [facility] Last Admin: 03/14/19 09:00 Dose: 240 mg Documented by: Doxazosin Mesylate (Cardura) 8 mg PO QHS [facility] Last Admin: 03/13/19 21:39 Dose: 8 mg Documented by: Finasteride (Proscar) 5 mg PO DAILY [facility] Last Admin: 03/14/19 09:00 Dose: 5 mg Documented by: Furosemide (Lasix) 40 mg IV BID@1000,1800 [facility] Last Admin: 03/14/19 08:58 Dose: 40 mg Documented by: Glucagon () 1 mg IM .X1 PRN PRN Reason: Hypoglycemia Guaifenesin (Mucinex) 1,200 mg PO BID [facility] Last Admin: 03/14/19 09:00 Dose: 1,200 mg Documented by: Insulin Glargine (Lantus (Bkc)) 15 units SC BID [facility] Last Admin: 03/14/19 08:55 Dose: 15 unit Documented by: Insulin Human Lispro (Humalog Kwikpen (Bk)) 5 unit SC TIDAC [facility] Last Admin: 03/14/19 11:04 Dose: 5 unit Documented by: Insulin Human Lispro (Humalog Kwikpen (Bk)) 0 unit SC ACHS [facility]; Protocol Last Admin: 03/14/19 11:04 Dose: 6 unit Documented by: Magnesium Oxide (Mag-Ox 400) 400 mg PO DAILY [facility] Last Admin: 03/14/19 09:00 Dose: 400 mg Documented by: Metolazone (Zaroxolyn) 2.5 mg PO DAILY [facility] Last Admin: 03/14/19 09:00 Dose: 2.5 mg Documented by: Metoprolol Tartrate (Lopressor (Beta Kristel)) 50 mg PO BID [facility] Last Admin: 03/14/19 09:00 Dose: 50 mg Documented by: Multi-Ingredient Cream (Eucerin) 1 applic TOPICAL 0600,2200 [facility]; Protocol Last Admin: 03/14/19 06:52 Dose: 1 applicatio Documented by: Nystatin (Mycostatin Powder) 1 applic TOPICAL BID [facility]; Protocol Last Admin: 03/14/19 08:57 Dose: 1 applicatio Documented by: Ondansetron HCl (Zofran) 4 mg IV Q8H PRN PRN PRN Reason: NAUSEA/VOMITING Pantoprazole Sodium (Protonix) 40 mg PO DAILY [facility] Last Admin: 03/14/19 09:00 Dose: 40 mg Documented by: Polysaccharide Iron Complex (Ferrex 150) [facility] Last Admin: 03/14/19 07:38 Dose: 150 mg Documented by: Prednisone () 30 mg PO DAILY@0800 [facility] Last Admin: 03/14/19 07:37 Dose: 30 mg Documented by: Sertraline HCl (Zoloft) 100 mg PO DAILY [facility] Last Admin: 03/14/19 09:00 Dose: 100 mg Documented by: Sodium Chloride () 5 - 15 ml IV UD PRN PRN Reason: SALINE FLUSH Last Admin: 03/13/19 18:04 Dose: 10 ml Documented by: Spironolactone (Aldactone) 25 mg PO BID [facility] Last Admin: 03/14/19 09:00 Dose: 25 mg Documented by: Medical Necessity - Tobacco Use Smoking Status: Former smoker Assessment/Plan All Active Problems (Last Reviewed 03/12/19 @ 01:54 by Garrett Whitlye MD) COPD exacerbation (Acute) Pleural effusion, right (Acute) Hyperkalemia (Resolved) Hyperglycemia (Acute) Bilateral pleural effusion (Acute) Acute on chronic respiratory failure with hypoxia and hypercapnia (Acute) Hyponatremia (Acute) Non-compliance (Acute) Iron deficiency anemia (Ruled-out) Acute on chronic diastolic heart failure (Acute 03/07/19) Acute on chronic respiratory failure with hypoxia and hypercapnia (Resolved) Bilateral lower leg cellulitis (Resolved) CAP (community acquired pneumonia) (Resolved) CHF exacerbation (Resolved) CHF exacerbation (Resolved) History of pulmonary embolism (Resolved) Hyperkalemia (Resolved) Hypoglycemia (Resolved) Hypoglycemia (Resolved) Hypomagnesemia (Resolved) Hyponatremia (Resolved) Pneumococcal pneumonia (Resolved 03/07/19) Pulmonary embolism on right (Resolved) Shortness of breath (Resolved) Tobacco abuse (Resolved) Wheezing (Resolved) Impressions 1. Acute on chronic combined respiratory failure with hypoxia and hypercapnia 2. Acute exacerbation of COPD 3. Acute diastolic congestive heart failure with preserved ejection fraction 4. Hyponatremia 5. Diabetes mellitus type 2/morbid obesity/obstructive sleep apnea/COPD/iron deficiency anemia/hypertension/gout/BPH/hyperlipidemia/venous insufficiency-complicate care, management and prognosis. Transition to furosemide 40 mg p.o. twice daily Continue prednisone 30 mg p.o. daily for 1 more day and then decrease to 20 mg daily for 3 days and then 10 mg daily for 3 days. Wean the oxygen to maintain his O2 sat between 90 and 93%. He is a CO2 retainer and there is no need to keep him at 96 and 98%. Walking oximetry prior to discharge Possible discharge tomorrow to the [facility]. The importance of wearing the BiPAP as instructed and leaving his oxygen on was stressed with this patient and his family. His family stated that he was never on O2 with the BIPAP at home. Weight loss encouraged. Code Visit Inpatient E&M: 10353 Subs Hosp L2
[2019-03-14 17:00] LABS: Bedside Glucose 360 mg/dL (70-110)
[2019-03-14] MEDS: 0.9% Saline Lock 10 ML Syringe IV (17:23)
[2019-03-14] MEDS: Atorvastatin Calcium 40 MG Tablet PO (21:31)
[2019-03-14] MEDS: Bisacodyl 5 MG Tablet 10 MG PO (21:31)
[2019-03-14] MEDS: Doxazosin 4 MG Tablet 8 MG PO (21:32)
[2019-03-14] MEDS: Psyllium 1 PACKET PO (21:48)
[2019-03-14 22:05] LABS: Bedside Glucose 351 mg/dL (70-110)
[2019-03-15] VITALS (17 sets, daily range): BP systolic 116–140; BP diastolic 57–66; PULSE 58–75; RESP 12–30; TEMP 36.3–36.9; O2SAT 90–100
[2019-03-15] MEDS: Ipratropium/Albuterol Sulfate 3 ML AMPUL.NEB INHALATION ×5 (07:02→23:14)
[2019-03-15] MEDS: Insulin Lispro 100 UNIT/ML INSULN.PEN SC ×7 (09:05→22:44)
[2019-03-15] MEDS: Glucerna Shake 120 ML LIQUID PO ×3 (09:05→22:35)
[2019-03-15] MEDS: Nystatin Powder 15gm Bottle 1 APPLIC TOPICAL ×2 (09:07→22:43)
[2019-03-15] MEDS: Psyllium 1 PACKET PO ×2 (09:07→22:42)
[2019-03-15] MEDS: Iron Polysaccharide Complex 150 MG CAPSULE PO (09:07)
[2019-03-15] MEDS: Menthol/Lanolin/Calamine/Znox 113 GM Tube 1 APPLIC TOPICAL ×2 (09:07→22:42)
[2019-03-15] MEDS: Finasteride 5 MG Tablet PO (09:07)
[2019-03-15] MEDS: Pantoprazole Sodium 40 MG Tablet PO (09:07)
[2019-03-15] MEDS: predniSONE 20 MG Tablet 30 MG PO (09:07)
[2019-03-15] MEDS: Sertraline 100 MG Tablet PO (09:08)
[2019-03-15] MEDS: guaiFENesin 1,200 MG Tablet 1200 MG PO ×2 (09:08→22:36)
[2019-03-15] MEDS: Metolazone 2.5 MG Tablet PO (09:08)
[2019-03-15] MEDS: dilTIAZem CD 240 MG Capsule PO (09:08)
[2019-03-15] MEDS: Aspirin 81 MG TAB.CHEW PO (09:08)
[2019-03-15] MEDS: Allopurinol 300 MG Tablet PO (09:08)
[2019-03-15] MEDS: Furosemide 40 MG Tablet PO ×2 (09:08→17:36)
[2019-03-15] MEDS: Metoprolol Tartrate 50 MG Tablet PO ×2 (09:08→22:36)
[2019-03-15] MEDS: Spironolactone 25 MG Tablet PO ×2 (09:09→22:42)
[2019-03-15] MEDS: Magnesium Oxide 400 MG Tablet PO (09:09)
[2019-03-15 09:21] LABS: Bedside Glucose 219 mg/dL (70-110)
[2019-03-15 12:46] LABS: Bedside Glucose 257 mg/dL (70-110)
--- NOTE | 2019-03-15 15:08 | CASEMGMT ---
Patient is on 6L of O2. [facility] called [facility] and spoke with Geraldine. She said they will have to order a concentrator that goes up that high. She said they could have it by tomorrow. Patient cannot be discharged to [facility] today as he is on 6L of O2 and they have to order a special concentrator to accommodate this amount of O2. Brooke REYES RIVETING MACHINE OPERATOR
[2019-03-15 17:41] LABS: Bedside Glucose 394 mg/dL (70-110)
--- NOTE | 2019-03-15 18:55 | PCM.PROGNOTE ---
Subjective: All events of the past 24 hours have been reviewed. He is afebrile. Blood pressure is within normal limits and stable. Heart rate is stable. He was 90% saturated on a 6 L nasal cannula today. He is 95% saturated on BiPAP with a 50% FiO2. Intake and output are not accurate secondary to urinary incontinence. BS's are a little better today but still not adequately controlled. Good oral intake. No complaints today. He has been sleeping a lot today and the BIPAP has been on a lot. He does arouse when you call his name. They are unable to take him back to [facility] today because they have to order a different oxygen concentrator to be able to supply 6 LPM which is what he is requiring now. Objective: General: Alert, Oriented x3, Cooperative, No apparent distress, - - He is sitting in a recliner at the bedside with his legs elevated. He does not move much and is basically sedentary HEENT: Atraumatic, PERRLA, EOMI, Normocephalic Oral: Moist Mucosa, No Gingival or Mucosal Lesions/ Ulcerations Neck: Supple, Trachea Midline Lungs: No rhonchi, No wheeze, No rales, Diminished Cardiovascular: Regular rate, Regular Rhythm, Normal S1, Normal S2, No rub noted, No Gallop, - - Telemetry shows sinus rhythm and sinus bradycardia with PVCs and no A. fib. Abdomen: Bowel Sounds Present, Soft, Non Tender, Non-Distended, Obese, - - he has an incisional hernia at the caudal portion of the sternal incision Extremities: No cyanosis, - - Both legs are wrapped with Juan wraps. Skin: No rashes Neurological: Cranial nerves II-XII grossly intact, Neuro grossly intact Psych/Mental Status: Normal Affect, Appropriate - Physical Exam Vitals/I&O's: Vital Signs Temp Pulse Resp BP Pulse Ox 98.0 F 65 25 H 122/58 H 93 03/15/19 15:00 03/15/19 15:32 03/15/19 15:32 03/15/19 15:00 03/15/19 15:32 Oxygen Flow Rate (L/min) 6 Oxygen Delivery Method Bi-pap Weight: 350 lb 5.032 oz Body Mass Index (BMI) 53.2 Finger Stick Blood Glucose 171 Intake and Output for Last 24 Hours 03/13/19 03/14/19 03/15/19 23:59 23:59 23:59 Intake Total 1700 / 1840 1140 / 1140 1220 / 1220 Output Total 1930 / 2955 2325 / 2325 175 / 175 Balance -230 / -1115 -1185 / -1185 1045 / 1045 Laboratory Results 03/14/19 21:51: POC Glucose 351 H 03/15/19 09:04: POC Glucose 219 H 03/15/19 12:36: POC Glucose 257 H 03/15/19 17:34: POC Glucose 394 H Current Medications Acetaminophen (Tylenol) 1,000 mg PO Q6H PRN PRN PRN Reason: Pain Score 1-3/10 Albuterol Sulfate (Ventolin Aerosols) 2.5 mg INHALATION Q2H PRN PRN PRN Reason: SOB/Wheezing Albuterol/Ipratropium (Duoneb) 3 ml INHALATION Q4HWA.RT [facility] Last Admin: 03/15/19 15:32 Dose: 3 ml Documented by: Allopurinol (Zyloprim) 300 mg PO DAILYCM [facility] Last Admin: 03/15/19 09:08 Dose: 300 mg Documented by: Aspirin (Aspirin, Baby) 81 mg PO DAILY@0800 [facility] Last Admin: 03/15/19 09:08 Dose: 81 mg Documented by: Atorvastatin Calcium (Lipitor) 40 mg PO QHS [facility] Last Admin: 03/14/19 21:31 Dose: 40 mg Documented by: Calamine/Phenol (Calmoseptine Ointment) 1 applic TOPICAL BID [facility]; Protocol Last Admin: 03/15/19 09:07 Dose: 1 applicatio Documented by: Dextrose (D50w Syringe) 0 gm IV X1 PRN; Protocol PRN Reason: Hypoglycemia Diltiazem HCl (Cardizem Cd) 240 mg PO DAILY [facility] Last Admin: 03/15/19 09:08 Dose: 240 mg Documented by: Doxazosin Mesylate (Cardura) 8 mg PO QHS [facility] Last Admin: 03/14/19 21:32 Dose: 8 mg Documented by: Finasteride (Proscar) 5 mg PO DAILY [facility] Last Admin: 03/15/19 09:07 Dose: 5 mg Documented by: Furosemide (Lasix) 40 mg PO BID@1000,1800 [facility] Last Admin: 03/15/19 17:36 Dose: 40 mg Documented by: Glucagon () 1 mg IM .X1 PRN PRN Reason: Hypoglycemia Guaifenesin (Mucinex) 1,200 mg PO BID [facility] Last Admin: 03/15/19 09:08 Dose: 1,200 mg Documented by: Insulin Glargine (Lantus (Bkc)) 15 units SC BID [facility] Last Admin: 03/15/19 09:05 Dose: 15 unit Documented by: Insulin Human Lispro (Humalog Kwikpen (Bk)) 5 unit SC TIDAC [facility] Last Admin: 03/15/19 17:36 Dose: 5 unit Documented by: Insulin Human Lispro (Humalog Kwikpen (Bkc)) 0 unit SC ACHS [facility]; Protocol Last Admin: 03/15/19 17:36 Dose: 6 unit Documented by: Magnesium Oxide (Mag-Ox 400) 400 mg PO DAILY [facility] Last Admin: 03/15/19 09:09 Dose: 400 mg Documented by: Metolazone (Zaroxolyn) 2.5 mg PO DAILY [facility] Last Admin: 03/15/19 09:08 Dose: 2.5 mg Documented by: Metoprolol Tartrate (Lopressor (Beta Kristel)) 50 mg PO BID [facility] Last Admin: 03/15/19 09:08 Dose: 50 mg Documented by: Multi-Ingredient Cream (Eucerin) 1 applic TOPICAL 0600,2200 [facility]; Protocol Last Admin: 03/15/19 06:29 Dose: 1 applicatio Documented by: Nutritional Formula (Lactose Free) (Glucerna Shake) 120 ml PO 4X/DAY [facility] Last Admin: 03/15/19 17:36 Dose: 120 ml Documented by: Nystatin (Mycostatin Powder) 1 applic TOPICAL BID [facility]; Protocol Last Admin: 03/15/19 09:07 Dose: 1 applicatio Documented by: Ondansetron HCl (Zofran) 4 mg IV Q8H PRN PRN PRN Reason: NAUSEA/VOMITING Pantoprazole Sodium (Protonix) 40 mg PO DAILY [facility] Last Admin: 03/15/19 09:07 Dose: 40 mg Documented by: Polysaccharide Iron Complex (Ferrex 150) 150 mg PO DAILYCM [facility] Last Admin: 03/15/19 09:07 Dose: 150 mg Documented by: Prednisone () 30 mg PO DAILY@0800 [facility] Last Admin: 03/15/19 09:07 Dose: 30 mg Documented by: Psyllium Hydrophilic Mucilloid (Metamucil) 1 packet PO BID [facility] Last Admin: 03/15/19 09:07 Dose: 1 packet Documented by: Sertraline HCl (Zoloft) 100 mg PO DAILY [facility] Last Admin: 03/15/19 09:08 Dose: 100 mg Documented by: Sodium Chloride () 5 - 15 ml IV UD PRN PRN Reason: SALINE FLUSH Last Admin: 03/14/19 17:23 Dose: 10 ml Documented by: Spironolactone (Aldactone) 25 mg PO BID [facility] Last Admin: 03/15/19 09:09 Dose: 25 mg Documented by: Medical Necessity - Tobacco Use Smoking Status: Former smoker Assessment/Plan All Active Problems (Last Reviewed 03/12/19 @ 01:54 by Garrett Whitley MD) COPD exacerbation (Acute) Pleural effusion, right (Acute) Hyperkalemia (Resolved) Hyperglycemia (Acute) Bilateral pleural effusion (Acute) Acute on chronic respiratory failure with hypoxia and hypercapnia (Acute) Hyponatremia (Acute) Non-compliance (Acute) Iron deficiency anemia (Ruled-out) Acute on chronic diastolic heart failure (Acute 03/07/19) Acute on chronic respiratory failure with hypoxia and hypercapnia (Resolved) Bilateral lower leg cellulitis (Resolved) CAP (community acquired pneumonia) (Resolved) CHF exacerbation (Resolved) CHF exacerbation (Resolved) History of pulmonary embolism (Resolved) Hyperkalemia (Resolved) Hypoglycemia (Resolved) Hypoglycemia (Resolved) Hypomagnesemia (Resolved) Hyponatremia (Resolved) Pneumococcal pneumonia (Resolved 03/07/19) Pulmonary embolism on right (Resolved) Shortness of breath (Resolved) Tobacco abuse (Resolved) Wheezing (Resolved) Impressions 1. Acute on chronic combined respiratory failure with hypoxia and hypercapnia 2. Acute exacerbation of COPD 3. Acute diastolic congestive heart failure with preserved ejection fraction 4. Hyponatremia 5. Diabetes mellitus type 2/morbid obesity/obstructive sleep apnea/COPD/iron deficiency anemia/hypertension/gout/BPH/hyperlipidemia/venous insufficiency-complicate care, management and prognosis. continue current care awaiting pre-certification to go back to [facility] Will need 6 LPM oxygen when he does go back His family tells me that he does not always wear PAP and that sometimes he does not wear the oxygen either. Code Visit Inpatient E&M: 79027 Subs Hosp L2
[2019-03-15] MEDS: Atorvastatin Calcium 40 MG Tablet PO (22:35)
[2019-03-15] MEDS: Doxazosin 4 MG Tablet 8 MG PO (22:43)
[2019-03-15 23:11] LABS: Bedside Glucose 404 mg/dL (70-110)
[2019-03-16] VITALS (20 sets, daily range): BP systolic 114–133; BP diastolic 58–65; PULSE 55–76; RESP 12–28; TEMP 36.1–36.8; O2SAT 90–98
--- NOTE | 2019-03-16 05:55 | RAD_ITS ---
STUDY: X-RAY CHEST REASON FOR EXAM: Male, 74 years old. Shortness of breath/dyspnea. TECHNIQUE: AP and lateral views of the chest. COMPARISON: Comparison is made with prior study dated March 11, 2019. FINDINGS: EKG electrodes are seen. Surgical clips are seen in the right axillary region. Stable small bilateral pleural effusions with bibasilar atelectasis and/or infiltration superimposed on a mild degree of CHF. Sternal cerclage wires and vascular clips are present from a prior sternotomy and coronary artery bypass graft procedure (CABG). Normal mediastinum and radha. Normal visualized pulmonary arteries. There is atherosclerotic calcification of the aortic arch with tortuosity. There are diffuse degenerative changes of the visualized thoracic spine. There is degenerative osteoarthritis of the bilateral shoulders. There is no demonstrated abnormality of the visualized soft tissue structures of the upper abdomen. RAD/Chest PA and Lateral IMPRESSION: Stable small bilateral effusions with bibasilar atelectasis superimposed on a mild degree of CHF. Electronically Signed: Gab Ruth, at 9:31 EDT , Service support ,
[2019-03-16 05:57] LABS: Hematocrit 36.6 % (40-54); Hemoglobin 11.1 g/dL (13.0-16.5); Mean Corp Hgb Conc 30.3 g/dL (32-36); Mean Corpuscular Volume 89.1 fL (80-94); Mean Platelet Vol. 9.4 fl (6.2-12.0); Platelet Count 308 K/mm3 (150-450); RBC Distribution Width CV 14.4 % (11.6-14.6); RBC Distribution Width SD 46.5 fl (35.1-43.9); Red Blood Count 4.11 M/mm3 (4.6-6.2); White Blood Count 18.5 K/mm3 (4.4-11.0)
[2019-03-16 06:14] LABS: Anion Gap 5 (5-15); BUN 53 mg/dL (7-18); BUN/Creat Ratio 39.3 RATIO (10-20); Calcium,Total 8.6 mg/dL (8.5-10.1); Chloride 87 mmol/L (98-107); Creatinine, Serum 1.35 mg/dL (0.70-1.30); EST Glomerular Filtration Rate 55 mL/min (>60); Est Glom Filt Rate - Afr Amer 66 mL/min (>60); Estimated Creatinine Clearance 45.04 ml/min; Glucose 277 mg/dL (74-106); Magnesium 2.2 mg/dL (1.6-2.6); Phosphorus 3.1 mg/dL (2.5-4.9); Potassium 4.3 mmol/L (3.5-5.1); Sodium Level 132 mmol/L (136-145)
[2019-03-16] MEDS: Ipratropium/Albuterol Sulfate 3 ML AMPUL.NEB INHALATION ×4 (07:18→20:15)
[2019-03-16 08:26] LABS: Bedside Glucose 245 mg/dL (70-110)
[2019-03-16] MEDS: Insulin Lispro 100 UNIT/ML INSULN.PEN SC ×3 (08:41→16:59)
[2019-03-16] MEDS: Insulin Lispro 100 UNIT/ML INSULN.PEN 8 UNIT SC (08:41)
[2019-03-16] MEDS: Glucerna Shake 120 ML LIQUID PO ×2 (08:46→16:59)
[2019-03-16] MEDS: Nystatin Powder 15gm Bottle 1 APPLIC TOPICAL (08:47)
[2019-03-16] MEDS: Psyllium 1 PACKET PO (08:47)
[2019-03-16] MEDS: guaiFENesin 1,200 MG Tablet 1200 MG PO (08:48)
[2019-03-16] MEDS: Aspirin 81 MG TAB.CHEW PO (08:48)
[2019-03-16] MEDS: Metolazone 2.5 MG Tablet PO (08:48)
[2019-03-16] MEDS: Iron Polysaccharide Complex 150 MG CAPSULE PO (08:48)
[2019-03-16] MEDS: Pantoprazole Sodium 40 MG Tablet PO (08:48)
[2019-03-16] MEDS: Menthol/Lanolin/Calamine/Znox 113 GM Tube 1 APPLIC TOPICAL (08:48)
[2019-03-16] MEDS: Spironolactone 25 MG Tablet PO (08:48)
[2019-03-16] MEDS: Metoprolol Tartrate 50 MG Tablet PO (08:48)
[2019-03-16] MEDS: Sertraline 100 MG Tablet PO (08:48)
[2019-03-16] MEDS: Furosemide 40 MG Tablet PO ×2 (08:48→16:59)
[2019-03-16] MEDS: Magnesium Oxide 400 MG Tablet PO (08:49)
[2019-03-16] MEDS: Finasteride 5 MG Tablet PO (08:49)
[2019-03-16] MEDS: predniSONE 20 MG Tablet 30 MG PO (08:49)
[2019-03-16] MEDS: Allopurinol 300 MG Tablet PO (08:49)
[2019-03-16] MEDS: dilTIAZem CD 240 MG Capsule PO (08:49)
[2019-03-16 08:51] LABS: Hemoglobin A1c 7.4 % (4.2-6.3)
[2019-03-16] MEDS: Insulin Lispro 100 UNIT/ML INSULN.PEN 10 UNIT SC ×2 (12:29→16:59)
[2019-03-16 12:35] LABS: Bedside Glucose 327 mg/dL (70-110)
--- NOTE | 2019-03-16 15:42 | CASEMGMT ---
Per physician patient will be discharged today. Awaiting orders. Patient will need to be transported by bariatric cot so SW called [facility] and the only time they could come is 8p. [facility] notified Geraldine at [facility], real estate legal secretary, patient's , and RN. [facility] sheet on chart with instructions. Plan: d/c back to [facility] under skilled level of care. [facility] will transport via bariatric cot. Brooke REYES MSW
--- NOTE | 2019-03-16 16:07 | PCM.TXEXTCAR ---
- Diet 03/12/19 10:51 Diet: Carbohydrate Controlled, cardia ( low salt and low fat) Is pt able to select menu?: Yes Must be sitting upright at 90 degrees when eating and remain up right for 30 minutes prior to lying down - Routine Orders/Code Status Enema Type: Fleetz Enema Frequency: Daily PRN Suppository Type: Dulcolax 10mg Suppository Frequency: Daily PRN O2 Frequency: run oxygen with BiPAP. Keep PO Greater than or Equal to (%): 90 - BiPAP with oxygen at night and with naps. Routine Lab Work: - - BMP, MAG, CBC in 1 week Code Status: Full Code - Wound(s) R VIEIRA Wound Type: Stasis Ulcer Dressing Change: Adaptic L VIEIRA Wound Type: Stasis Ulcer Dressing Change: Adaptic R VIEIRA LATERAL Wound Type: Stasis Ulcer COCCYX Wound Type: Pressure Injury - Suggestions for Active Care Change Position every (hours): 2 Hours to sit in a chair: 1 Times a day to sit in chair: 3 - with meals - Therapies Weight Bearing: Full weight bearing Physical Therapy: Eval and Treat Occupational Therapy: Eval and Treat - Problem/Diagnosis (1) Bilateral pleural effusion Status: Acute Current Visit: Yes (2) Acute on chronic respiratory failure with hypoxia and hypercapnia Status: Acute Current Visit: Yes (3) Diabetes mellitus type 2 in obese Status: Chronic Current Visit: Yes (4) Anemia Status: Chronic Comment: etiology unclear at this time Current Visit: Yes (5) Chronic renal failure, stage 3 (moderate) Status: Chronic Current Visit: Yes (6) Morbid obesity with body mass index (BMI) of 45.0 to 49.9 in adult Status: Chronic Current Visit: Yes (7) Hyperkalemia Status: Resolved Current Visit: Yes (8) COPD exacerbation Status: Acute Current Visit: Yes (9) Pneumococcal pneumonia Status: Resolved Current Visit: No (10) Acute on chronic diastolic heart failure Status: Acute Current Visit: No (11) Essential (primary) hypertension Status: Chronic Current Visit: No (12) Hyperlipidemia Status: Chronic Current Visit: No (13) Iron deficiency anemia Status: Ruled-out Comment: etology unknown Current Visit: No (14) Pickwickian syndrome Status: Chronic Current Visit: No (15) Thoracic aortic aneurysm Status: Chronic Current Visit: No (16) Thoracic aortic aneurysm without rupture Status: Chronic Comment: Status post ascending and proximal arch aneurysm replaced with a Hemashield graft and shayan-arch repair; Current Visit: No (17) H/O aortic valve replacement Status: Inactive Comment: # 29 Freestyle valve Current Visit: No (18) History of repair of thoracic aortic aneurysm Status: Inactive Current Visit: No (19) Paroxysmal atrial fibrillation Status: Chronic Current Visit: Yes (20) Hyponatremia Status: Acute Current Visit: Yes (21) Chronic venous insufficiency of lower extremity Status: Chronic Current Visit: Yes (22) History of pulmonary embolism Status: Resolved Current Visit: Yes (23) Tobacco dependence in remission Status: Chronic Current Visit: Yes (24) Gout Status: Chronic Current Visit: Yes (25) Chronic respiratory failure with hypoxia and hypercapnia Status: Chronic Current Visit: Yes (26) Non-compliance Status: Acute Comment: with CPAP Current Visit: Yes - Allergies/Procedures Done in Hospital Allergies/Adverse Reactions: Allergies naphazoline HCl [From Naphcon] Allergy (Severe, Verified 03/11/19 20:24) affected his breathing AFFECTED HIS BREATHING amlodipine besylate [From Norvasc] Allergy (Verified 03/11/19 20:24) Other dextromethorphan Allergy (Verified 03/11/19 20:24) Other levofloxacin [From Levaquin] Adverse Reaction (Mild, Verified 03/11/19 20:24) made me hyperactive made me hyperactive Procedures: None - Type of Care/Length of Stay Estimated LOS: Convalescent Care Less Than 30 days Type of Care Needed: Skilled Rehab Potential: Fair Prognosis: Fair - Additional Orders/Day of Discharge Additional Orders: accuchecks AC and HS. MUST have Oxygen with the CPAP. HAs been requiring 6 LPM in the hospital. Titrate the oxygen to maintain the oxygen saturation between 90-93.....no need for it to be any higher. He is a CO2 retainer. H&P will serve as current which was dated: 03/11/19 Day of Discharge: 03/16/19 - Dietary and Speech Recommendations Dietitian Recommendations/Changes: Rec CHO controlled, cardiac, low sodium diet w/ fluid restriction as indicated. Rec 1 packet Rafael BID to promote skin healing. Continue glucerna shake until Rafael added for wound healing. - Follow Up Care Primary Care Physician: Jack Verdugo MD [Primary Care Provider] - Within 2 Weeks Please Follow Up With: Mackenzie Wallace NP-C - pulmonology When: 04/18/19 Please Follow Up With: Sly Rubio MD - general surgery follow up for anemia When: 04/20/19
--- NOTE | 2019-03-16 16:50 | NURSING ---
Called report to Martina NICO[facility]
--- NOTE | 2019-03-16 17:00 | PCM.DC.SUM ---
Discharge Date and Diagnosis Date of Admission: 03/11/19 Date of Discharge: 03/16/19 - Primary Discharge Diagnosis Active and Suspected Problems (Last Reviewed 03/12/19 @ 01:54 by Garrett Whitley MD) COPD exacerbation (Acute) Bilateral pleural effusion (Acute) Acute on chronic respiratory failure with hypoxia and hypercapnia (Acute) Acute on chronic diastolic congestive heart failure with preserved ejection fraction Hyponatremia (Acute) Non-compliance (Acute) with CPAP - Secondary Discharge Diagnosis Chronic Problems (Last Reviewed 03/12/19 @ 01:54 by Garrett Whitley MD) Diabetes mellitus type 2 in obese (Chronic) Anemia (Chronic) etiology unclear at this time Chronic renal failure, stage 3 (moderate) (Chronic) Morbid obesity with body mass index (BMI) of 45.0 to 49.9 in adult (Chronic) Paroxysmal atrial fibrillation (Chronic) Chronic venous insufficiency of lower extremity (Chronic) Tobacco dependence in remission (Chronic) Gout (Chronic) Chronic respiratory failure with hypoxia and hypercapnia (Chronic) Pickwickian syndrome (Chronic) Thoracic aortic aneurysm (Chronic) Thoracic aortic aneurysm without rupture (Chronic) 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 Small bilateral effusions. Cardiomegaly. Electronically Signed: Cali Jurado, at 21:27 EDT Tel , Service support , Chest CTA 03/11/19 21:42 IMPRESSION: Examination for pulmonary embolus somewhat limited by motion artifact particularly at the lung bases. Negative for large central pulmonary embolus or embolus and most lobar branches. Negative for embolus to the upper lobes. Limited for exclusion of lower lobe embolus secondary to motion artifact. Dilated pulmonary artery with a diameter of 5 cm. Moderate plaque in elongation of the thoracic aorta. 3.3 cm fusiform dilatation of the posterior aortic arch. Cardiomegaly, coronary calcifications status post prior midline sternotomy. Moderate size posterior/dependent right pleural effusion similar in size to prior exam. Complete collapse of the right lower lobe. Mild atelectatic changes of the right upper lobe and middle lobe. Much smaller dependent left pleural effusion with mild atelectatic changes of the left lower lobe. Broad mouth subxiphoid herniation including the transverse colon. Status post cholecystectomy. Electronically Signed: Judith Dexter MD at 22:51 EDT , Service support , Chest X-Ray 03/16/19 05:55 IMPRESSION: Stable small bilateral effusions with bibasilar atelectasis superimposed on a mild degree of CHF. 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 Khari Clay and Dr. Hemanth Joyner-pulmonary medicine Operations: None Procedures: None Summary of Care Provided: The patient is a 74-year-old male with a past medical history of paroxysmal atrial fibrillation, super obesity, COPD, iron deficiency anemia, obstructive sleep apnea, hypertension, thoracic aortic aneurysm, gout, BPH, hypomagnesemia, diabetes mellitus type 2, chronic respiratory failure with hypoxia and hypercapnia, chronic diastolic congestive heart failure with preserved ejection fraction, hyperlipidemia and lymphedema versus venous insufficiency of the lower extremities who was admitted to [facility] on 03/05/2019 and discharged on 03/11/2019 after being treated for pneumococcal pneumonia and atrial fibrillation with rapid ventricular response. He completed a 7-day course of antibiotics and was discharged to the [facility] on 03/11/2019 on a steroid taper. He returned to the emergency room on 03/11/2019 later in the day for an oxygen saturation of 55% at the [facility]. The family stated that this was done on room air rather than the 5 L nasal cannula he wears chronically. He required BiPAP in the emergency department. Apparently at the [facility] he was placed on CPAP with no O2 bleed in. When he was seen in consultation by Dr. Joyner on 03/12/2019 he was back to baseline. Lungs were diminished but clear to auscultation. Despite the patient's insistence that he uses his BiPAP as instructed the compliance report indicates that he is not using his nocturnal Pap therapy as prescribed. This was confirmed by the family. He was restarted on a steroid taper and BiPAP with a oxygen bleed in. The remainder of the hospital stay was uneventful. Arrangements had to be made at the [facility] for a different concentrator to be able to provide 6 LMP via [place]. He was discharged to the [facility] on 03/16 on a prednisone taper. Must have oxygen with CPAP when he is on CPAP. He will follow up with Dr. Verdugo within 2 weeks. He has an appointment with Mackenzie Cortez on 04/18/2019. He is to follow-up with Dr. Rubio on 04/20/2019 for anemia. General: Alert, Oriented x3, Cooperative, No apparent distress, - - He is sitting in a recliner at the bedside with his legs elevated. HEENT: Atraumatic, PERRLA, EOMI, Normocephalic Oral: Moist Mucosa, No Gingival or Mucosal Lesions/ Ulcerations Neck: Supple, Trachea Midline Lungs: No rhonchi, No wheeze, No rales, Diminished Cardiovascular: Regular rate, Regular Rhythm, Normal S1, Normal S2, No rub noted, No Gallop, - - Telemetry shows sinus rhythm and sinus bradycardia with PVCs and no A. fib. Abdomen: Bowel Sounds Present, Soft, Non Tender, Non-Distended, Obese, - - he has an incisional hernia at the caudal portion of the sternal incision Extremities: No cyanosis, - - Both legs are wrapped with Juan wraps. Skin: No rashes Neurological: Cranial nerves II-XII grossly intact, Neuro grossly intact Psych/Mental Status: Normal Affect, Appropriate This note was generated with GeneCapture dictation software. It may contain incorrect words, spelling, and punctuation that were not noted in checking the note before signing. - Physical Exam Vitals/I&O's: Vital Signs Temp Pulse Resp BP Pulse Ox 97.7 F L 70 22 H 133/63 H 97 03/16/19 14:45 03/16/19 15:00 03/16/19 14:45 03/16/19 14:45 03/16/19 14:45 Oxygen Flow Rate (L/min) 6 Oxygen Delivery Method Bi-pap Weight: 313 lb Body Mass Index (BMI) 53.2 Finger Stick Blood Glucose 171 Intake and Output for Last 24 Hours 03/14/19 03/15/19 03/16/19 23:59 23:59 23:59 Intake Total 1140 / 1140 1670 / 1670 610 / 610 Output Total 2325 / 2325 175 / 175 Balance -1185 / -1185 1495 / 1495 610 / 610 Laboratory Results 03/15/19 17:34: POC Glucose 394 H 03/15/19 22:37: POC Glucose 404 H 03/16/19 05:40: WBC 18.5 H, RBC 4.11 L, Hgb 11.1 L, Hct 36.6 L, MCV 89.1, MCH 27.0, MCHC 30.3 L, RDW Std Deviation 46.5 H, RDW Coeff of El 14.4, Plt Count 308, MPV 9.4 03/16/19 05:40: Sodium 132 L, Potassium 4.3, Chloride 87 L, Carbon Dioxide 40.0 H, Anion Gap 5, BUN 53 H, Creatinine 1.35 H, Estim Creat Clear Calc 45.04, Est GFR (MDRD) Af Amer 66, Est GFR (MDRD) Non-Af 55 L, BUN/Creatinine Ratio 39.3 H, Glucose 277 H, Calcium 8.6, Phosphorus 3.1, Magnesium 2.2 03/16/19 05:40: Hemoglobin A1c 7.4 H 03/16/19 08:18: POC Glucose 245 H 03/16/19 12:27: POC Glucose 327 H Current Medications Acetaminophen (Tylenol) 1,000 mg PO Q6H PRN PRN PRN Reason: Pain Score 1-3/10 Albuterol Sulfate (Ventolin Aerosols) 2.5 mg INHALATION Q2H PRN PRN PRN Reason: SOB/Wheezing Albuterol/Ipratropium (Duoneb) 3 ml INHALATION Q4HWA.RT [facility] Last Admin: 03/16/19 14:32 Dose: 3 ml Documented by: Allop[facility] ([facility]oprim) [facility] Last Admin: 03/16/19 08:49 Dose: 300 mg Documented by: Aspirin (Aspirin, Baby) 81 mg PO DAILY@0800 [facility] Last Admin: 03/16/19 08:48 Dose: 81 mg Documented by: Atorvastatin Calcium (Lipitor) 40 mg PO QHS [facility] Last Admin: 03/15/19 22:35 Dose: 40 mg Documented by: Calamine/Phenol (Calmoseptine Ointment) 1 applic TOPICAL BID [facility]; Protocol Last Admin: 03/16/19 08:48 Dose: 1 applicatio Documented by: Dextrose (D50w Syringe) 0 gm IV X1 PRN; Protocol PRN Reason: Hypoglycemia Diltiazem HCl (Cardizem Cd) 240 mg PO DAILY [facility] Last Admin: 03/16/19 08:49 Dose: 240 mg Documented by: Doxazosin Mesylate (Cardura) 8 mg PO QHS [facility] Last Admin: 03/15/19 22:43 Dose: 8 mg Documented by: Finasteride (Proscar) 5 mg PO DAILY [facility] Last Admin: 03/16/19 08:49 Dose: 5 mg Documented by: Furosemide (Lasix) 40 mg PO BID@1000,1800 [facility] Last Admin: 03/16/19 16:59 Dose: 40 mg Documented by: Glucagon () 1 mg IM .X1 PRN PRN Reason: Hypoglycemia Guaifenesin (Mucinex) 1,200 mg PO BID [facility] Last Admin: 03/16/19 08:48 Dose: 1,200 mg Documented by: Insulin Glargine (Lantus (Bkc)) 25 units SC QAM [facility] Last Admin: 03/16/19 08:40 Dose: 25 u Documented by: Insulin Glargine (Lantus (Bkc)) 15 units SC QHS [facility] Last Admin: 03/15/19 22:45 Dose: 15 units Documented by: Insulin Human Lispro (Humalog Kwikpen (Bkc)) 0 unit SC ACHS [facility]; Protocol Last Admin: 03/16/19 16:59 Dose: 5 unit Documented by: Insulin Human Lispro (Humalog Kwikpen (Bkc)) 8 unit SC BREAKFAST [facility] Last Admin: 03/16/19 08:41 Dose: 8 u Documented by: Insulin Human Lispro (Humalog Kwikpen (Bkc)) 10 unit SC LUNCH [facility] Last Admin: 03/16/19 12:29 Dose: 10 u Documented by: Insulin Human Lispro (Humalog Kwikpen (Bkc)) 10 unit SC DINNER [facility] Last Admin: 03/16/19 16:59 Dose: 10 u Documented by: Magnesium Oxide (Mag-Ox 400) 400 mg PO DAILY [facility] Last Admin: 03/16/19 08:49 Dose: 400 mg Documented by: Metolazone (Zaroxolyn) 2.5 mg PO DAILY [facility] Last Admin: 03/16/19 08:48 Dose: 2.5 mg Documented by: Metoprolol Tartrate (Lopressor (Beta Kristel)) 50 mg PO BID [facility] Last Admin: 03/16/19 08:48 Dose: 50 mg Documented by: Multi-Ingredient Cream (Eucerin) 1 applic TOPICAL 0600,2200 [facility]; Protocol Last Admin: 03/16/19 06:52 Dose: 1 applicatio Documented by: Nutritional Formula (Lactose Free) (Glucerna Shake) 120 ml PO 4X/DAY [facility] Last Admin: 03/16/19 16:59 Dose: 120 ml Documented by: Nystatin (Mycostatin Powder) 1 applic TOPICAL BID [facility]; Protocol Last Admin: 03/16/19 08:47 Dose: 1 applicatio Documented by: Ondansetron HCl (Zofran) 4 mg IV Q8H PRN PRN PRN Reason: NAUSEA/VOMITING Pantoprazole Sodium (Protonix) 40 mg PO DAILY [facility] Last Admin: 03/16/19 08:48 Dose: 40 mg Documented by: Polysaccharide Iron Complex (Ferrex 150) [facility] Last Admin: 03/16/19 08:48 Dose: 150 mg Documented by: Prednisone () 20 mg PO DAILY@0800 [facility] Psyllium Hydrophilic Mucilloid (Metamucil) 1 packet PO BID [facility] Last Admin: 03/16/19 08:47 Dose: 1 packet Documented by: Sertraline HCl (Zoloft) 100 mg PO DAILY [facility] Last Admin: 03/16/19 08:48 Dose: 100 mg Documented by: Sodium Chloride () 5 - 15 ml IV UD PRN PRN Reason: SALINE FLUSH Last Admin: 03/14/19 17:23 Dose: 10 ml Documented by: Spironolactone (Aldactone) 25 mg PO BID [facility] Last Admin: 03/16/19 08:48 Dose: 25 mg Documented by: Discharge Diet: Low fat/ Low Cholesterol, 1800 Calorie Control Diet, 6 Cup Fluid Restriction, 2000 mg Sodium Diet Discharge Activity: Return to Normal Activity - activity as tolerated Call your doctor if you observe: Fever of 101 or Higher, Shortness of breath, Chest pain Home Medications: Medications to take at Discharge Allopurinol [Zyloprim] 300 mg PO DAILY 06/15/18 Finasteride [Proscar] 5 mg PO DAILY 06/15/18 Metolazone [Zaroxolyn] 2.5 mg PO DAILY 06/15/18 Metoprolol Tartrate [Lopressor (beta kristel)] 50 mg PO BID 06/15/18 Sertraline HCl [Zoloft] 100 mg PO DAILY 06/15/18 Spironolactone [Aldactone] 25 mg PO BID 06/15/18 Atorvastatin Calcium 40 mg PO QHS 12/07/18 Nystatin Powder [Mycostatin Powder] 1 applic TOPICAL BID 12/13/18 Acetaminophen [Tylenol] 1,000 mg PO Q6H PRN PRN tab 01/03/19 Iron Polysaccharide Complex [Ferrex 150] 150 mg PO DAILYCM #30 cap 01/03/19 Menthol/Lanolin/Calamine/Znox [Calmoseptine Ointment] 1 applic TOPICAL BID tube 01/03/19 Mineral Oil/Petrolatum,White [Eucerin] 1 applic TOPICAL 0600,2200 jar 01/03/19 Pantoprazole Sodium [Protonix] 40 mg PO DAILY #30 tab 01/03/19 Aspirin [Aspirin, Baby] 81 mg PO DAILY@0800 tab.chew 03/11/19 Diltiazem CD [Cardizem CD] 240 mg PO DAILY cap 03/11/19 Doxazosin Mesylate [Cardura] 8 mg PO QHS 03/11/19 Furosemide 40 mg PO BID #1 tab 03/11/19 Insulin Lispro [Humalog KwikPen] See Protocol SUBCUT ACHS insuln.pen 03/11/19 Magnesium Oxide [Mag-Ox 400] 400 mg PO DAILY 03/11/19 Albuterol Aerosols [Ventolin Aerosols] 2.5 mg INHALATION Q2H PRN PRN vial.neb. 03/12/19 Furosemide [Lasix] 40 mg PO BID@1000,1800 tab 03/16/19 Ipratropium/Albuterol Sulfate [Duoneb] 3 ml INHALATION 4X/DAY #1 ampul.neb 03/16/19 Prednisone 10 mg PO DAILY #9 tab 03/16/19 Primary Care Physician: Verdugo,Jack, MD [Primary Care Provider] - Within 2 Weeks Please Follow Up With: Mackenzie Wallace NP-C - pulmonology When: 04/18/19 Please Follow Up With: Sly Rubio MD - general surgery follow up for anemia When: 04/20/19 Additional Instructions: BiPAP with oxygen QHS and naps. Disposition: Senior Living facility Minutes spent on discharge:: 35 Patient Condition:: Stable Medical Necessity - Tobacco Use Smoking Status: Former smoker Tobacco Use: Non-smoker Meaningful Use Info Meaningful Use Diagnoses (Choose all that apply): CHF - CHF JUAN/ARB ordered at discharge?: No Reason JUAN/ARB not ordered?: Drug Interaction Documented LVEF (%): 55 Code Visit Inpatient E&M: 14554 Disch Hosp
[2019-03-16 17:11] LABS: Bedside Glucose 343 mg/dL (70-110)
--- NOTE | 2019-03-16 17:57 | PCA ---
Faxed discharge paperwork over to [facility] and made a copy of paperwork for the paper chart.
--- NOTE | 2019-03-16 21:29 | NURSING ---
[facility] here to take pt. to [facility]. Pt. awake and alert, no distress noted. Take on 6 L oxygen. Belongings with patient including partial denture.
== END 2019-03-16 21:35 | disposition skilled nursing facility (03) | DRG 189 ==
LOC: ED 23:02 → PCU 23:08
PROVIDERS: Admitting Provider Hospitalist; Emergency Provider Emergency Medicine; Family Provider Internal Medicine; PCP Internal Medicine; Referring Provider Hospitalist; Visit Provider Internal Medicine
DX: J96.21 Acute and chronic respiratory failure with hypoxia (principal); I50.33 Acute on chronic diastolic (congestive) heart failure; E66.2 Morbid (severe) obesity with alveolar hypoventilation; Z68.43 Body mass index [BMI] 50.0-59.9, adult; I13.0 Hypertensive heart and chronic kidney disease with heart failure and stage 1 through stage 4 chronic kidney disease, or unspecified chronic kidney disease; J44.1 Chronic obstructive pulmonary disease with (acute) exacerbation; E87.1 Hypo-osmolality and hyponatremia; E87.5 Hyperkalemia; J96.22 Acute and chronic respiratory failure with hypercapnia; E78.5 Hyperlipidemia, unspecified; I87.2 Venous insufficiency (chronic) (peripheral); F17.201 Nicotine dependence, unspecified, in remission; I48.0 Paroxysmal atrial fibrillation; N18.3 Chronic kidney disease, stage 3 (moderate); E11.65 Type 2 diabetes mellitus with hyperglycemia; N40.0 Benign prostatic hyperplasia without lower urinary tract symptoms; D50.9 Iron deficiency anemia, unspecified; Z95.2 Presence of prosthetic heart valve; Z91.19 Patient's noncompliance with other medical treatment and regimen; Z99.81 Dependence on supplemental oxygen; Z79.4 Long term (current) use of insulin
CPT/HCPCS: 36415; 36600; 71045; 71046; 71275; 80048; 82803; 82962; 83036; 83735; 83880; 84100; 84484; 85025; 85027; 85610; 85730; 93005; 94002; 94003; 94640; 94667; 97110; 97162; 97166; 97530; 97802; 99251; 99285; J7040; Q9967; A4216; G0463; J1940